=== PATIENT | male | born 1970 | race Caucasian/White ===

== ENCOUNTER 2019-07-14 10:55 | Inpatient (IN) | payer MEDICAID, SELFPAY ==
[2019-07-14] VITALS (14 sets, daily range): BP systolic 116–176; BP diastolic 67–91; PULSE 65–94; RESP 16–25; TEMP 36.8–37; O2SAT 84–96; BMI 61.6
--- NOTE | 2019-07-14 11:21 | ED_ITS ---
Entered by Jazz Rogers, acting as scribe for Mili Dia HPI - SOB/Dyspnea General: Chief Complaint: Shortness of Breath/Dyspnea Stated Complaint: SOB/WEAKNESS Time Seen by Provider: 07/14/19 11:17 Source: patient Mode of arrival: ambulatory Limitations: no limitations History of Present Illness: HPI Narrative: 49 yo Male presents to ED with complaint of shortness of breath. Pt states that this started Sunday night. Pt states that he became short of breath going to the bathroom this morning. Pt states that this has worsened over the weekend. Pt states that he coughs stuff up when he uses his inhalers. MD elicited complaint: shortness of breath and cough Pertinent past history: diabetes Onset (ago): day(s) (3 days ago) Timing: progressively worsening Exacerbating factors: lying flat and exertion Known history of: diabetes Associated symptoms: Reports chest congestion and cough; Deny abdominal pain, chest pain, diaphoresis, dizziness, extremity pain, fever(s), nausea, orthopnea, palpitations, polydipsia, syncope or vomiting Review of Systems General: Reports: other (negative unless marked) Const: Denies: fever, chills, body aches, fatigue, malaise or diaphoresis Eyes: Denies: change in vision or blurry vision ENMT: Denies: throat pain, painful swallowing, hoarseness, ear pain, ear discharge, Change in hearing or nasal discharge Card: Denies: chest pain, palpitations, irregular heart rhythm, syncope, pre- syncope, shortness of breath on exertion or shortness of breath when lying down Resp: Reports: shortness of breath, productive cough and chest congestion GI: Denies: abdominal pain, nausea, vomiting, vomiting blood, coffee grounds in vomit, diarrhea, constipation, cramping, blood in stool or black tarry stool : Denies: flank pain, difficulty urinating, painful urination, urinary frequency, urinary urgency, decreased urine ouput, urinary incontinence or blood in urine Musc: Denies: neck pain, back pain, extremity pain, extremity swelling, joint pain, joint swelling, joint warmth or joint stiffness Skin/Breast: Denies: rash, skin tenderness or yellow skin Neuro: Denies: headache, numbness in extremities, weakness in extremities, changes in sensation, lack of coordination, difficulty walking, dizziness, vertigo or confusion Endo: Denies: excessive thirst, tired all the time, cold intolerance, excessive sweating, flushing or hot flashes Mendel/Lymph: Denies: easy bruising, easy bleeding, petechiae or enlarged lymph nodes All/Imm: Denies: hives, throat swelling, tongue swelling, facial swelling or acute wheezing PFSH ED PFSH: Statuses (acute, chronic, etc) shown below reflect problem list status as previously entered and may not be historically accurate Medical History (Updated 07/14/19 @ 15:35 by Mendez Farmer MD) Diabetes (Acute) Gout (Acute) Hyperlipemia, mixed (Acute) Hypertension (Acute) Morbid (severe) obesity due to excess calories (Acute) OPAL (obstructive sleep apnea) (Acute) Surgical History (Updated 07/14/19 @ 11:51 by Jazz Rogers) History of adenoidectomy (Acute) History of hernia repair (Acute) History of tonsillectomy (Acute) History of umbilical hernia repair (Acute) Family History (Updated 07/14/19 @ 15:23 by Mendez Farmer MD) Mother Hypertension CAD (coronary artery disease) Stroke Social History (Updated 07/14/19 @ 15:24 by Mendez Farmer MD) Smoking and tobacco status: never smoked Second hand smoke exposure: Yes Alcohol intake: never Substance/Drug Use: never Lives independently: Yes Household members: friend(s) Physical Exam Const: COMMON NORMALS: no apparent distress, oriented x3, no limitations, healthy appearing and well nourished EXAM LIMITATIONS: no altered mental status GENERAL APPEARANCE: cooperative, well kempt and well developed ORIENTATION/CONSCIOUSNESS: Yes awake HENMT: COMMON NORMALS: normocephalic, head/scalp atraumatic, hearing grossly normal bilaterally, external ears normal, EAC's normal, external nose normal and moist oral mucous membranes HEAD & SCALP: normal to inspection, normocephalic and atraumatic FACE & SINUS: normal facial exam and face symmetric NOSE: external nose normal and nares normal EXTERNAL EAR: Yes external ears normal EXTERNAL AUDITORY CANAL: EAC's normal MOUTH: oral and palatal mucosa normal and tongue normal Eye: COMMON NORMALS: PERRL, EOMs intact bilaterally, conjunctivae normal and no scleral icterus GENERAL EYE: normal appearance of both eyes and normal light reflex CONJUNCTIVA: Yes conjunctivae normal SCLERA: sclerae normal CORNEA: Yes corneas normal PUPIL: Yes PERRL DIRECT OPHTHALMOSCOPY: Yes normal light reflex Neck/C-Spine: COMMON NORMALS: full ROM, no lymphadenopathy, supple, no meningeal signs and no JVD GENERAL: Yes normal visual inspection and Yes trachea midline CERVICAL SPINE: Yes cervical ROM normal Chest: COMMONS NORMALS: inspection of chest normal and palpation of chest normal Resp: COMMON NORMALS: normal respiratory effort, no retractions and no use of accessory muscles EFFORT & INSPECTION: Yes able to speak in complete sentences AUSCULTATION: rales and diminished lung sounds Cardio: COMMON NORMALS: no JVD, regular rate, regular rhythm, S1 normal heart sound, S2 normal heart sound, no gallops, no clicks, no murmurs and no rub JUGULAR VENOUS DISTENTION: no JVD RATE: regular rate RHYTHM: regular rhythm HEART SOUNDS: S1 normal and S2 normal GI: COMMON NORMALS: soft to palpation, non-tender, no hepatosplenomegaly and no masses INSPECTION: Yes normal to inspection PALPATION: Yes soft and Yes no hepatosplenomegaly : COMMON NORMALS: Yes no CVA tenderness BLADDER/KIDNEY EXAM: Yes no CVA tenderness Back/Pelvis: COMMON NORMALS: no CVA tenderness, thoracic and lumbar spine normal to inspection, no thoracic nor lumbar tenderness and thoraco-lumbar ROM normal Extremity: COMMON NORMALS: normal to inspection, full ROM, normal capillary refill, no joint enlargement, no clubbing, cyanosis or edema and no calf tenderness Neuro: COMMON NORMALS: oriented x3, CN's II-XII intact bilaterally, moves all extremities, no focal motor deficits and no sensory deficits noted MENINGEAL SIGNS: Yes no meningeal signs Psych: COMMON NORMALS: mental status grossly normal, thought process normal, cooperative, affect normal, speech normal and activity/motor behavior normal APPEARANCE: Yes well kempt SPEECH: Yes normal speech THOUGHT PROCESS: normal thought process Skin: COMMON NORMALS: no rashes or lesions noted, skin turgor normal, no jaundice, no petechiae and no mottling GENERAL SKIN EXAM: no rashes or lesions noted and turgor normal Course Vital Signs: Vital signs: Vital Signs Temperature 98.4 F 07/14/19 15:19 Pulse Rate 90 07/14/19 16:34 Respiratory Rate 16 07/14/19 16:28 Blood Pressure 176/91 07/14/19 15:19 Pulse Oximetry 93 07/14/19 16:28 MDM - SOB/Dyspnea MDM Narrative: Medical decision making narrative: The patient is describing orthopnea, paroxysmal nocturnal dyspnea and dyspnea on exertion. His EKG shows no sign of acute coronary syndrome and his troponin is low. He has no pain or shortness of breath at rest. He appears to have new onset CHF we cannot find a history of CHF at this time in our old records. We will admit him to the hospital and we have reviewed the case with Dr. Farmer. He will get an echo and likely continue diuresis. Lab Data: Attestation: I reviewed the patient's lab results. Labs: Lab Results 07/14/19 07/14/19 07/14/19 Range/Units 11:31 11:31 11:31 WBC 5.6 (4.0-10.0) 10^3/ uL RBC 4.63 (4.1-5.3) 10^6/u L Hgb 11.5 L (11.7-16.6) g/dL Hct 39.3 L (42.0-52.0) % MCV 84.9 (80-94) fL MCH 24.8 L (28.0-34.0) pg MCHC 29.3 L (30.0-36.0) g/dL RDW 16.1 H (12.1-15.1) % Plt Count 250 (130-400) 10^3/c mm MPV 9.6 (7.4-10.4) fL Neut % (Auto) 78.4 % Lymph % (Auto) 15.4 % Lassen % (Auto) 5.4 % Eos % (Auto) 0.2 % Baso % (Auto) 0.4 % Neut # (Auto) 4.4 (1.8-7.7) 10^3/u L Lymph # (Auto) 0.9 (0.8-4.8) 10^3/u L Lassen # (Auto) 0.3 (0.2-0.9) 10^3/u L Eos # (Auto) 0.0 (0.0-0.8) 10^3/u L Baso # (Auto) 0.0 (0.0-0.1) 10^3/u L Nucleated RBC % (a uto) 0 % Nucleated RBCs # 0.0 /100WBC D-Dimer (0-0.59) ug/mIFE U Specimen Type Sample Site ABG pH (7.35-7.45) ABG pCO2 (35-45) mmHg ABG pO2 (80.0-100.0) mmH g ABG HCO3 (22-26) mmol/L ABG Base Excess (-2.0-2.0) mmol/ L Luis Test Hematocrit (42-52) % Hgb O2 Saturation (95-100) % O2 Liters/Min % Therapeutic Riding Instructor ID Sodium 134 L (136-145) mmol/L Potassium 3.5 (3.5-5.1) mmol/L Chloride 93 L (98-107) mmol/L Carbon Dioxide 31 H (22-29) mmol/L Anion Gap 13.5 (5-19) BUN 13 (6-20) mg/dL Creatinine 0.9 (0.7-1.2) mg/dL GFR Calculation 90.4 (90-130) mL/min Glucose 334 H (74-109) mg/dL Calcium 10.0 (8.6-10.0) mg/Dl Magnesium 1.5 L (1.7-2.3) mg/dL Total Bilirubin 0.6 (0.15-1.2) mg/dL AST 20 (0-40) U/L ALT 16 (0-41) U/L Alkaline Phosphata se 218 H (40-130) IU/L Troponin T Baselin e 22 H (0-15) ng/mL Troponin T 120 Min [place] (0-15) ng/mL Delta Troponin T (0-10) ABS# NT-Pro-B Natriuret Pep 749 H (0-125) pg/mL Total Protein 7.0 (6.6-8.7) g/dL Albumin 3.5 (3.5-5.2) g/dL Globulin 3.5 (1.3-4.6) g/dL Triglycerides (0-150) mg/dL Cholesterol (0-200) mg/dL LDL Cholesterol, C alc (50-129) mg/dL HDL Cholesterol (60-100) mg/dL LDL/HDL Ratio (0.00-3.22) RATI O Cholesterol/HDL Ra carlos (1.0-5.00) mg/dL Procalcitonin (0-0.8) ng/mL TSH (0.27-4.20) uIU/ mL Influenza Type A A g (Negative) POC Influenza B Ag (Negative) 07/14/19 07/14/19 07/14/19 Range/Units 11:31 11:31 12:10 WBC (4.0-10.0) 10^3/ uL RBC (4.1-5.3) 10^6/u L Hgb (11.7-16.6) g/dL Hct (42.0-52.0) % MCV (80-94) fL MCH (28.0-34.0) pg MCHC (30.0-36.0) g/dL RDW (12.1-15.1) % Plt Count (130-400) 10^3/c mm MPV (7.4-10.4) fL Neut % (Auto) % Lymph % (Auto) % Lassen % (Auto) % Eos % (Auto) % Baso % (Auto) % Neut # (Auto) (1.8-7.7) 10^3/u L Lymph # (Auto) (0.8-4.8) 10^3/u L Lassen # (Auto) (0.2-0.9) 10^3/u L Eos # (Auto) (0.0-0.8) 10^3/u L Baso # (Auto) (0.0-0.1) 10^3/u L Nucleated RBC % (a uto) % Nucleated RBCs # /100WBC D-Dimer 0.54 (0-0.59) ug/mIFE U Specimen Type Arterial Sample Site Radial, right ABG pH 7.47 H (7.35-7.45) ABG pCO2 43.6 (35-45) mmHg ABG pO2 58.2 L (80.0-100.0) mmH g ABG HCO3 31.4 H (22-26) mmol/L ABG Base Excess 6.9 H (-2.0-2.0) mmol/ L Luis Test Pos Hematocrit 37.3 L (42-52) % Hgb O2 Saturation 89.6 L (95-100) % O2 Liters/Min 2.0 % Therapeutic Riding Instructor ID monro Sodium (136-145) mmol/L Potassium (3.5-5.1) mmol/L Chloride (98-107) mmol/L Carbon Dioxide (22-29) mmol/L Anion Gap (5-19) BUN (6-20) mg/dL Creatinine (0.7-1.2) mg/dL GFR Calculation (90-130) mL/min Glucose (74-109) mg/dL Calcium (8.6-10.0) mg/Dl Magnesium (1.7-2.3) mg/dL Total Bilirubin (0.15-1.2) mg/dL AST (0-40) U/L ALT (0-41) U/L Alkaline Phosphata se (40-130) IU/L Troponin T Baselin e (0-15) ng/mL Troponin T 120 Min [place] (0-15) ng/mL Delta Troponin T (0-10) ABS# NT-Pro-B Natriuret Pep (0-125) pg/mL Total Protein (6.6-8.7) g/dL Albumin (3.5-5.2) g/dL Globulin (1.3-4.6) g/dL Triglycerides 131 (0-150) mg/dL Cholesterol 197 (0-200) mg/dL LDL Cholesterol, C alc 132 H (50-129) mg/dL HDL Cholesterol 39 L (60-100) mg/dL LDL/HDL Ratio 3.38 H (0.00-3.22) RATI O Cholesterol/HDL Ra carlos 5.05 H (1.0-5.00) mg/dL Procalcitonin (0-0.8) ng/mL TSH 2.90 (0.27-4.20) uIU/ mL Influenza Type A A g (Negative) POC Influenza B Ag (Negative) 07/14/19 07/14/19 07/14/19 Range/Units 13:31 13:34 13:34 WBC (4.0-10.0) 10^3/ uL RBC (4.1-5.3) 10^6/u L Hgb (11.7-16.6) g/dL Hct (42.0-52.0) % MCV (80-94) fL MCH (28.0-34.0) pg MCHC (30.0-36.0) g/dL RDW (12.1-15.1) % Plt Count (130-400) 10^3/c mm MPV (7.4-10.4) fL Neut % (Auto) % Lymph % (Auto) % Lassen % (Auto) % Eos % (Auto) % Baso % (Auto) % Neut # (Auto) (1.8-7.7) 10^3/u L Lymph # (Auto) (0.8-4.8) 10^3/u L Lassen # (Auto) (0.2-0.9) 10^3/u L Eos # (Auto) (0.0-0.8) 10^3/u L Baso # (Auto) (0.0-0.1) 10^3/u L Nucleated RBC % (a uto) % Nucleated RBCs # /100WBC D-Dimer (0-0.59) ug/mIFE U Specimen Type Sample Site ABG pH (7.35-7.45) ABG pCO2 (35-45) mmHg ABG pO2 (80.0-100.0) mmH g ABG HCO3 (22-26) mmol/L ABG Base Excess (-2.0-2.0) mmol/ L Luis Test Hematocrit (42-52) % Hgb O2 Saturation (95-100) % O2 Liters/Min % Therapeutic Riding Instructor ID Sodium (136-145) mmol/L Potassium (3.5-5.1) mmol/L Chloride (98-107) mmol/L Carbon Dioxide (22-29) mmol/L Anion Gap (5-19) BUN (6-20) mg/dL Creatinine (0.7-1.2) mg/dL GFR Calculation (90-130) mL/min Glucose (74-109) mg/dL Calcium (8.6-10.0) mg/Dl Magnesium (1.7-2.3) mg/dL Total Bilirubin (0.15-1.2) mg/dL AST (0-40) U/L ALT (0-41) U/L Alkaline Phosphata se (40-130) IU/L Troponin T Baselin e (0-15) ng/mL Troponin T 120 Min [place] 20.22 H (0-15) ng/mL Delta Troponin T -1.78 L (0-10) ABS# NT-Pro-B Natriuret Pep (0-125) pg/mL Total Protein (6.6-8.7) g/dL Albumin (3.5-5.2) g/dL Globulin (1.3-4.6) g/dL Triglycerides (0-150) mg/dL Cholesterol (0-200) mg/dL LDL Cholesterol, C alc (50-129) mg/dL HDL Cholesterol (60-100) mg/dL LDL/HDL Ratio (0.00-3.22) RATI O Cholesterol/HDL Ra carlos (1.0-5.00) mg/dL Procalcitonin 0.26 (0-0.8) ng/mL TSH (0.27-4.20) uIU/ mL Influenza Type A A g Negative (Negative) POC Influenza B Ag Negative (Negative) Imaging Data^: CXR: Radiologist's impression: [place] [address] XRay Report Signed Patient: Arnol Guzman DMR#: [id number] : 1970Acct:[id number] Age/Sex: 49 / MADM Date: 07/14/19 Loc: ER Attending Dr: Ordering Physician: Mili Dia DO Date of Service: 07/14/19 Procedure(s): XR chest 1V portable [id number] Accession Number(s): [id number] Report Number: [id number] WS: [id number] Portable AP upright chest, 07/14/2019 Clinical Data: DYSPNEA Comparison: Portable chest, 08/30/2014 Findings: No nodules, masses or effusions are seen. The pulmonary vascularity is increased. The heart size is at the upper limits of normal. No pneumonia or pneumothorax is seen. XR/XR chest 1V portable [id number] Impression: Cardiomegaly and pulmonary vascular congestion. Dictated By:Eva Patton MD Signed By:Eva Pattonigned Date/Time:07/14/19 1244 DD/ 1243 EKG Data^: EKG 1: Attestation: I personally reviewed and interpreted this EKG as follows: (Normal sinus rhythm at 86 beats a minute, nonspecific ST and T wave changes, normal intervals, normal axis, normal QTC.) Interpretation: EKG performed and read at 1124 -normal sinus rhythm at 81 beats a minute, normal intervals, nonspecific ST-T wave changes, normal QTC Discharge Plan Discharge Admit Provider: Mendez Farmer Clinical Impression: CHF (congestive heart failure) Qualifiers: Heart failure type: unspecified Heart failure chronicity: acute Qualified Code(s): I50.9 - Heart failure, unspecified Condition: Stable Coding Level of Care Code ED Respiratory Care Assistant for Chg Fwd Exam Problem Focused The documentation recorded by the Sue maddox Carmen, accurately reflects the service I personally performed and the decisions made by Ifeoma barrera Eli N
--- NOTE | 2019-07-14 11:58 | XR_ITS ---
WS: [id number] Portable AP upright chest, 07/14/2019 Clinical Data: DYSPNEA Comparison: Portable chest, 08/30/2014 Findings: No nodules, masses or effusions are seen. The pulmonary vascularity is increased. The heart size is at the upper limits of normal. No pneumonia or pneumothorax is seen. XR/XR chest 1V portable [id number] Impression: Cardiomegaly and pulmonary vascular congestion.
--- NOTE | 2019-07-14 11:59 | ECG_ITS ---
Measurements Intervals [place] Rate: 86 P: 70 HI: 161 QRS: 35 QRSD: 93 T: 102 QT: 363 QTc: 435 SINUS RHYTHM NONSPECIFIC T-WAVE ABNORMALITY Compared to ECG 08/30/2014 15:23:10 T-wave abnormality now present Electronically Signed On 07-14-2019 17:50:15 FULL FASHIONED GARMENT KNITTER by Crys Diggs M.D. [id number]
[2019-07-14 12:04] LABS: Basophils % 0.4 %; Eosinophils % 0.2 %; Hematocrit 39.3 % (42.0-52.0); Hemoglobin 11.5 g/dL (11.7-16.6); Lymphocytes # 0.9 10^3/uL (0.8-4.8); Lymphocytes % 15.4 %; Mean Corpuscular HGB Conc 29.3 g/dL (30.0-36.0); Mean Corpuscular Hemoglobin 24.8 pg (28.0-34.0); Mean Corpuscular Volume 84.9 fL (80-94); Mean Platelet Volume 9.6 fL (7.4-10.4); Monocytes # 0.3 10^3/uL (0.2-0.9); Monocytes % 5.4 %; Neutrophils # 4.4 10^3/uL (1.8-7.7); Neutrophils % 78.4 %; Nucleated Red Blood Cells % 0 %; Platelet Count 250 10^3/cmm (130-400); Red Blood Count 4.63 10^6/uL (4.1-5.3); Red Cell Distribution Width 16.1 % (12.1-15.1); White Blood Count 5.6 10^3/uL (4.0-10.0)
[2019-07-14 12:16] LABS: Troponin(5th) Baseline 22 ng/mL (0-15)
[2019-07-14] MEDS: ipratropium-albuterol 3 mL Neb 9 ML INHALATION (12:16)
[2019-07-14 12:23] LABS: ABG PCO2 43.6 mmHg (35-45); ABG PH Result 7.47 (7.35-7.45); Arterial Blood Gas Hematocrit 37.3 % (42-52); Base Excess ABG 6.9 mmol/L (-2.0-2.0); Blood Gas Allen Test Pos; Blood Gas Sample Site Radial, right; Blood Gas Sample Type Arterial; HCO3 ABG 31.4 mmol/L (22-26); HGB O2 Sat 89.6 % (95-100); PO2 ABG 58.2 mmHg (80.0-100.0)
[2019-07-14] MEDS: ipratropium-albuterol 3 mL Neb 6 ML (12:30)
[2019-07-14 12:31] LABS: Alanine Aminotransferase 16 U/L (0-41); Albumin Level 3.5 g/dL (3.5-5.2); Alkaline Phosphatase 218 IU/L (40-130); Anion Gap 13.5 (5-19); Aspartate Amino Transferase 20 U/L (0-40); Blood Urea Nitrogen 13 mg/dL (6-20); Carbon Dioxide 31 mmol/L (22-29); Chloride 93 mmol/L (98-107); Globulin 3.5 g/dL (1.3-4.6); Glomerular Filtration Rate 90.4 mL/min (90-130); Glucose 334 mg/dL (74-109); Magnesium 1.5 mg/dL (1.7-2.3); NT Pro B Type Natriuretic Pept 749 pg/mL (0-125); Potassium 3.5 mmol/L (3.5-5.1); Sodium 134 mmol/L (136-145); Total Bilirubin 0.6 mg/dL (0.15-1.2)
[2019-07-14] MEDS: FUROsemide 10 mg/mL SDV 4mL 40 MG IVP ×2 (12:32→19:41)
[2019-07-14] MEDS: nitroglycerin 1 gm/inch oint Pkt 1 INCH TOPICAL (12:33)
--- NOTE | 2019-07-14 13:53 | PM.HP ---
Providers/Chief Complaint Admitting Physician: Mendez Farmer MD Primary Care Provider: Dr. Parker Rosario Chief Complaint: SOB/WEAKNESS History of Present Illness Arnol Guzman is a 49 year old male morbid obesity, OPAL not on CPAP, hypertension, type 2 diabetes mellitus, hyperlipidemia, COPD on chronic inhalers. He states he uses inhalers at least 4-5 times daily for last couple of years. He presented to the ER today with complaining of shortness of breath with has been progressively worsening for last 3 days. Shortness of breath gets worse on minimal exertion for last 2 days. It is also associated with orthopnea and paroxysmal nocturnal dyspnea for last 2 nights. He states he was not able to sleep last night as he would get up again and again gasping for air. Shortness of breath associated with cough with expectoration. Sputum production is scanty, not foul-smelling not blood-tinged. He states he has been producing sputum for a long time whenever he would use inhalers and the quantity and quality of expectoration have not changed recently. He also complains of having subjective feel a fever yesterday but did not check his temperatures. Shortness of breath is also associated with palpitations intermittently for last 2 days though he has not checked his pulse when he felt palpitations. He denies of having any dizziness, loss of consciousness, nausea, vomiting, abdominal pain, change in his bowel movements, dysuria. Shortness of breath is occasionally also associated with central chest pain when he is not able to take a deep breath in. Pain goes away after he uses his inhalers. He has also been feeling increased swellings in his lower limbs. He states he has more pain and feels more swelling in his right leg as compared to left. He states last he was admitted in 2004 for what sounds like a DKA. He denies of having any recent change in medications, recent travels, sick contacts. He states he has lost around 4 pounds in last 1 month. Review of Systems Const: Reports: change in sleep pattern and snoring; Denies: fever, chills, body aches, change in appetite, malaise, night sweats, diaphoresis or daytime sleepiness Eyes: Denies: change in vision, blurry vision, photophobia, eye discomfort or eye discharge ENMT: Denies: throat pain, enlarged tonsils, hoarseness, mouth pain, oral sores/lesions, dry mouth, tinnitus, nasal congestion or post nasal drip Card: Reports: chest pain, palpitations, edema, swelling of feet/ankles, shortness of breath on exertion and shortness of breath when lying down; Denies: irregular heart rhythm, lightheadedness, syncope, pre-syncope, leg pain with exertion or bluish discoloration of hands/feet Resp: Reports: shortness of breath, productive cough and pain on inspiration; Denies: non-productive cough, wheezing, stridor, change in phlegm color, coughing up blood or chest congestion GI: Denies: abdominal pain, nausea, vomiting, vomiting blood, coffee grounds in vomit, difficulty swallowing, heartburn/indigestion, diarrhea, constipation, bloating, cramping, change in bowel habits, painful bowel movements, blood in stool or black tarry stool : Denies: flank pain, difficulty urinating, painful urination, urinary frequency, urinary urgency, urinary hesitancy, urinary dribbling, difficulty starting urination, change in urine stream, nighttime urination or blood in urine Musc: Denies: neck pain, back pain, extremity pain, joint pain, joint swelling, redness, joint stiffness or limited range of motion Neuro: Denies: headache, numbness in extremities, weakness in extremities, changes in sensation, lack of coordination, difficulty walking, frequent falls, dizziness, vertigo, confusion, slurred speech, difficulty communicating thoughts or seizure-like activity Psych: Denies: anxiety, depression, mood swings, panic attacks, hopelessness or irritability Endo: Denies: excessive urination, excessive thirst, tired all the time, cold intolerance, excessive sweating, flushing or heat intolerance Mendel/Lymph: Denies: easy bruising or easy bleeding All/Imm: Denies: tongue swelling, facial swelling or acute wheezing Medications/Allergies Home Medications Medication Instructions Recorded Confirmed Last Taken Type albuterol sulfate [ProAir HFA] 2 - 4 puff INHALATION QID PRN 07/14/19 07/14/19 07/14/19 History allopurinol 300 mg PO DAILY 07/14/19 07/14/19 07/14/19 History aspirin [Aspir-81] 81 mg PO DAILY 07/14/19 07/14/19 07/14/19 History atenolol 100 mg PO DAILY 07/14/19 07/14/19 07/14/19 History atorvastatin [Lipitor] 80 mg PO DAILY 07/14/19 07/14/19 Unknown History insulin degludec [Tresiba 25 unit SUBCUT DAILY 07/14/19 07/14/19 Unknown History FlexTouch U-200] lisinopril-hydrochlorothiazide 1 tab PO DAILY 07/14/19 07/14/19 07/14/19 History loratadine 10 mg PO DAILY 07/14/19 07/14/19 07/14/19 History metformin 500 mg PO BID 07/14/19 07/14/19 07/14/19 History montelukast [Singulair] 10 mg PO DAILY 07/14/19 07/14/19 07/13/19 History nystatin 1 applic TOPICAL BID PRN 07/14/19 07/14/19 Unknown History omeprazole 40 mg PO DAILY 07/14/19 07/14/19 07/13/19 History Allergies Allergy/AdvReac Type Severity Reaction Status Date / Time Penicillins Allergy ALGY-Hives Verified 07/14/19 11:16 diltiazem [From Cardizem] AdvReac ADR/ALGY-Pa Verified 07/14/19 15:32 lpitations PFSH Acute PFSH: Statuses (acute, chronic, etc) shown below reflect problem list status as previously entered and may not be historically accurate Medical History (Updated 07/14/19 @ 15:35 by Mendez Farmer MD) Diabetes (Acute) Gout (Acute) Hyperlipemia, mixed (Acute) Hypertension (Acute) Morbid (severe) obesity due to excess calories (Acute) OPAL (obstructive sleep apnea) (Acute) Surgical History (Updated 07/14/19 @ 11:51 by Jazz Rogers) History of adenoidectomy (Acute) History of hernia repair (Acute) History of tonsillectomy (Acute) History of umbilical hernia repair (Acute) Family History (Updated 07/14/19 @ 15:23 by Mendez Farmer MD) Mother Hypertension CAD (coronary artery disease) Stroke Social History (Updated 07/14/19 @ 15:24 by Mendez Farmer MD) Smoking and tobacco status: never smoked Second hand smoke exposure: Yes Alcohol intake: never Substance/Drug Use: never Lives independently: Yes Household members: friend(s) Vitals/I&O/Wt Last Vital Signs Temp 98.2 F 07/14/19 11:10 Pulse 91 07/14/19 13:32 Resp 25 H 07/14/19 13:32 BP 116/85 07/14/19 13:32 Pulse Ox 91 07/14/19 13:32 Weight last 48 hrs Weight 147.871 kg Physical Exam Const: COMMON NORMALS: no apparent distress, oriented x3, no limitations, healthy appearing, alert and well nourished GENERAL APPEARANCE: cooperative, comfortable, well kempt and well developed NUTRITIONAL APPEARANCE: obese and overweight ORIENTATION/CONSCIOUSNESS: Yes awake, Yes oriented to person, Yes oriented to place and Yes oriented to time HENMT: COMMON NORMALS: normocephalic, head/scalp atraumatic and oropharynx normal Eye: COMMON NORMALS: PERRL, EOMs intact bilaterally, conjunctivae normal and no scleral icterus Neck/C-Spine: COMMON NORMALS: full ROM, no lymphadenopathy and supple GENERAL: Yes trachea midline and Yes JVD (Difficult to access due to thick neck) CAROTIDS: Yes other (difficult to access due to thick neck) Chest: COMMONS NORMALS: inspection of chest normal and palpation of chest normal Resp: COMMON NORMALS: normal respiratory effort and no retractions EFFORT & INSPECTION: Yes symmetric chest movement and Yes respiratory distress (mild) AUSCULTATION: rales bilateral and localized (lower zones, faint) and bronchial breath sounds diffuse Cardio: COMMON NORMALS: regular rate, regular rhythm, S1 normal heart sound and S2 normal heart sound HEART SOUNDS: gallop S3 gallop OTHER: PSM at apex and tricuspid area GI: COMMON NORMALS: normal to inspection, nondistended, normoactive bowel sounds, soft to palpation, non-tender, no hepatosplenomegaly, no masses and no bruits INSPECTION: Yes central obesity Neuro: COMMON NORMALS: oriented x3, CN's II-XII intact bilaterally, moves all extremities and no focal motor deficits Psych: COMMON NORMALS: mental status grossly normal, thought process normal, cooperative, affect normal, speech normal and activity/motor behavior normal Data Micro: Micro: Microbiology 07/14/19 12:08 Blood Culture - Pr eliminary Blood [facility] 07/14/19 12:05 Blood Culture - Pr eliminary Blood [facility] Imaging^: CXR: Radiologist's impression: XRay Report Signed Patient: Arnol Guzman DMR#: [id number] : 1970Acct:[id number] Age/Sex: 49 / MADM Date: 07/14/19 Loc: ER Attending Dr: Ordering Physician: Mili Dia DO Date of Service: 07/14/19 Procedure(s): XR chest 1V portable [id number] Accession Number(s): [id number] Report Number: [id number] WS: [id number] Portable AP upright chest, 07/14/2019 Clinical Data: DYSPNEA Comparison: Portable chest, 08/30/2014 Findings: No nodules, masses or effusions are seen. The pulmonary vascularity is increased. The heart size is at the upper limits of normal. No pneumonia or pneumothorax is seen. XR/XR chest 1V portable [id number] Impression: Cardiomegaly and pulmonary vascular congestion. A&P Assessment and plan (1) CHF (congestive heart failure): Status: Acute Qualifiers: Heart failure chronicity: acute Heart failure type: unspecified Qualified Code(s): I50.9 - Heart failure, unspecified Code(s): I50.9 - Heart failure, unspecified (2) OPAL (obstructive sleep apnea): Status: Acute Code(s): G47.33 - Obstructive sleep apnea (adult) (pediatric) (3) Morbid (severe) obesity due to excess calories: Status: Acute Code(s): E66.01 - Morbid (severe) obesity due to excess calories (4) Hypertension: Status: Acute Qualifiers: Hypertension type: essential hypertension Qualified Code(s): I10 - Essential (primary) hypertension Code(s): I10 - Essential (primary) hypertension (5) Diabetes: Status: Acute Qualifiers: Diabetes mellitus complication status: with circulatory complication Diabetes mellitus care home insulin 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 His proBNP is elevated and is chest x-ray and clinical findings suggest congestive heart failure. Patient was already given 40 mg Lasix IV in the ER. Will monitor intake and output. Depending on the output will give 40 mg more IV in the evening if required. IV 40 mg Lasix daily from tomorrow morning. Daily weights. Strict intake and output. Restrict fluid intake to 1500 mL's. Echocardiogram tomorrow morning to assess for LV functions. Telemetry monitoring. Will check Ddimer and lower limb dopplers as pt has lower limb swelling with mild increase swelling in the right leg. Cannot rule out PE for now. If d-dimer is elevated then will go for a CTA. Will avoid for now. Obstructive sleep apnea: Patient states he had a sleep study as an outpatient. Patient is awaiting CPAP. CPAP with auto setting nightly as needed. Social service consult for CPAP at home. Patient would most likely need home O2 evaluation prior to discharge. COPD: No need for steroids for now. Continue with albuterol as needed. We will start patient on DuoNeb [id number]. Continue home dose of Singulair. Hypertension: Continue on home dose of lisinopril. Blood pressure elevated will increase the dose of lisinopril. Will hold off for now to avoid acute kidney injury as patient is receiving high doses of IV Lasix for now. Continue home dose of atenolol. Can add hydralazine as needed to the regimen if the blood pressure continues to be elevated while in hospital. Type 2 diabetes mellitus: Check HbA1c in a.m. Hold OHAs. We will start patient on insulin sliding scale at moderate protocol. Patient takes Tresiba at home. We will start him on Lantus 25 units nightly. FC Cardiac carb consistent diet Lovenox Attestations Medical Necessity Statement*: Needs more than 48 hrs of admission for acute SOB due to CHF Coding Level of Care Code Acute [employer] [facility] Fwd Exam Problem Focused Diagnoses CHF (congestive heart failure) I50.9 Heart failure chronicity: acute Heart failure type: unspecified OPAL (obstructive sleep apnea) G47.33 Morbid (severe) obesity due to excess calories E66.01 Hypertension I10 Hypertension type: essential hypertension Diabetes E11.9 Diabetes mellitus complication status: with circulatory complication Diabetes mellitus care home insulin use: with terminal press operator use Diabetes mellitus type: type 2
--- NOTE | 2019-07-14 13:59 | ECG_ITS ---
Measurements Intervals [place] Rate: 91 P: 68 IN: 147 QRS: 38 QRSD: 102 T: 107 QT: 373 QTc: 460 SINUS RHYTHM WITH OCCASIONAL SUPRAVENTRICULAR PREMATURE COMPLEXES NONSPECIFIC T-WAVE ABNORMALITY Compared to ECG 08/30/2014 15:23:10 T-wave abnormality now present Electronically Signed On 07-14-2019 17:52:00 [employer] by Crys Diggs M.D. [id number]
--- NOTE | 2019-07-14 14:01 | USCV_ITS ---
ThomasArnol sanchez Age: 49 Gender: M : 1970 Exam Date: 07/14/2019 15:32 Ordering Phys: Mendez Farmer MD Technologist: Steve Donovan [place] [facility] [place]: ? PE HISTORY: Lower extremity edema. PROCEDURES: Venous duplex imaging was performed in bilateral lower extremities. The venous duplex Doppler examination of both lower extremities was performed in the standard fashion. The following venous structures were evaluated: common femoral vein, profunda vein, proximal portion of the greater saphenous vein, superficial femoral vein, and the popliteal vein. In addition, the posterior tibial and peroneal trunk were evaluated. FINDINGS: Normal 2-D Doppler and augmentation and compressibility throughout the lower extremity venous structures. Additional imaging through the proximal calf veins also reveals no thrombus. Limited evaluation of the greater saphenous vein is patent with no thrombus.. CONCLUSIONS No evidence of right lower extremity DVT. No evidence of left lower extremity DVT. Evangelist Sanderson MD (Electronically Signed) Final Date: 14 July 2019 17:03 S
[2019-07-14 14:06] LABS: Troponin 5 2HR 20.22 ng/mL (0-15)
[2019-07-14 14:11] LABS: Troponin 5 2HR Delta -1.78 ABS# (0-10)
[2019-07-14 14:25] LABS: Influenza A by IFA Negative (Negative); Influenza B by IFA Negative (Negative)
[2019-07-14 14:25] LABS: D Dimer 0.54 ug/mIFEU (0-0.59)
[2019-07-14 15:06] LABS: Procalcitonin 0.26 ng/mL (0-0.8)
--- NOTE | 2019-07-14 15:12 | USCV_ITS ---
Arnol Guzman Age: 49 Gender: M : 1970 Exam Date: 07/14/2019 15:18 Ordering Phys: Mendez Farmer MD Technologist: Steve Donovan [place] [facility] [place]: CHF BP: 168 / 80 HR: 94 Rhythm: Sinus Technical Quality: Poor MEASUREMENTS (Male / Female) Normal Values 2D ECHO LV Diastolic Diameter PLAX 3.6 cm 4.2 - 5.9 / 3.9 - 5.3 cm LV Systolic Diameter PLAX 2.7 cm IVS Diastolic Thickness 1.1 cm 0.6 - 1.0 / 0.6 - 0.9 cm IVS Systolic Thickness 1.6 cm LVPW Diastolic Thickness 1.1 cm 0.6 - 1.0 / 0.6 - 0.9 cm LVPW Systolic Thickness 1.5 cm LVOT Diameter 2.0 cm LV Ejection Fraction 2D Teich 50.2 % LV Ejection Fraction MOD 2C 45.9 % LV Ejection Fraction 2C AL 45.9 % LA Diameter 4.6 cm LA Width 4.5 cm LA Height 6.0 cm RA Width 4.1 cm RA Height 4.8 cm M-MODE LV Diastolic Diameter MM 5.3 cm 4.2 - 5.9 / 3.9 - 5.3 cm LV Systolic Diameter MM 3.3 cm LV Ejection Fraction MM Teich 68.6 % IVS Diastolic Thickness MM 1.1 cm 0.6 - 1.0 / 0.6 - 0.9 cm IVS Systolic Thickness MM 1.7 cm LVPW Diastolic Thickness MM 1.3 cm 0.6 - 1.0 / 0.6 - 0.9 cm LVPW Systolic Thickness MM 2.2 cm RV Diastolic Diameter MM 1.1 cm Aortic Annulus Diameter 3.6 cm LA Ao Ratio MM 1.3 MV E Point Septal Separation 0.8 cm DOPPLER AV Peak Velocity 162.0 cm/s LVOT Peak Velocity 107.0 cm/s AV Area Cont Eq vti 1.9 cm squared AV Area Cont Eq pk 2.1 cm squared MV Area PHT 5.0 cm squared Mitral E to A Ratio 1.4 MV E' Velocity 10.0 cm/s Mitral E to MV E' Ratio 15.1 Mitral E to LV E' Lateral Ratio 13.7 Mitral E to LV E' Septal Ratio 16.7 TR Peak Velocity 176.0 cm/s TR Peak Gradient 12.4 mmHg Right Atrial Pressure 8.0 mmHg Pulmonary Artery Systolic Pressu 20.4 mmHg PV Peak Velocity 111.0 cm/s FINDINGS Left Ventricle Normal left ventricular cavity size. Normal left ventricular systolic function. No regional wall motion abnormalities. Left ventricular ejection fraction is estimated at 68 %. Normal diastolic function. Right Ventricle The right ventricle is normal in size and function. Right Atrium The right atrium is normal in size. Left Atrium The left atrium is normal in size. Mitral Valve Moderately thickened mitral valve. No mitral valve stenosis. No mitral valve regurgitation. Aortic Valve Aortic valve sclerosis without stenosis or regurgitation. Tricuspid Valve Structurally normal tricuspid valve without significant stenosis or regurgitation. Pulmonary artery systolic pressure is normal. Pulmonic Valve Structurally normal pulmonic valve without significant stenosis. There is no pulmonic regurgitation. Pericardium Normal pericardium without effusion. Aorta Normal ascending aorta dimension. CONCLUSIONS 1-Normal left ventricular cavity size. Normal left ventricular systolic function. No regional wall motion abnormalities. Left ventricular ejection fraction is estimated at 68 %. Normal diastolic function. 2-There is no pericardial effusion. 3-No significant valve abnormalities. 4-Pulmonary artery systolic pressure is within normal limits. 5-There are no prior echocardiogram studies to compare. Lester Connelly MD (Electronically Signed) Final Date: 14 July 2019 17:07 S
[2019-07-14 16:13] LABS: Glucose Point of Care 284 mg/dL (70-110)
[2019-07-14 16:23] LABS: Chol HDL Ratio 5.05 mg/dL (1.0-5.00); Cholesterol 197 mg/dL (0-200); HDL Cholesterol 39 mg/dL (60-100); LDL Cholesterol Calculated 132 mg/dL (50-129); LDL HDL Ratio 3.38 RATIO (0.00-3.22); Triglycerides 131 mg/dL (0-150)
[2019-07-14] MEDS: ipratropium-albuterol 3 mL Neb INHALATION ×2 (16:27→20:06)
--- NOTE | 2019-07-14 17:59 | ECG_ITS ---
Measurements Intervals [place] Rate: 95 P: 68 HI: 157 QRS: 44 QRSD: 92 T: 93 QT: 368 QTc: [address] & T-WAVE ABNORMALITY Compared to ECG 08/30/2014 15:23:10 T-wave abnormality now present Electronically Signed On 07-14-2019 17:51:40 [employer] by Crys Diggs M.D. [id number]
[2019-07-14] MEDS: enoxaparin 40 mg/0.4 mL Syringe SUBCUT (18:28)
[2019-07-14] MEDS: magnesium sulfate premix 2 GM/50 ML PIGGYBACK IV (18:29)
[2019-07-14 19:05] LABS: Troponin 5 6HR 18.12 ng/L (0-15)
--- NOTE | 2019-07-14 19:08 | PC.NURSE ---
INTRODUCTION OF STAFF AND REPORT RECEIVED, AIDET. CALL RETURNED TO DR BAILEY PER HIS REQUEST. INQUIRED OF BP. ORDER RECEIVED THAT IF SBP IS GREATER THAN 150 AFTER SCHEDULED DOSE OF LASIX, GIVE HYDRALAZINE 5MG IV X1. ORDER PLACED. RN NOTIFIED OF LASIX DUE.
[2019-07-14 21:05] LABS: Estmated Average Glucose 266; Hemoglobin A1C 10.9 % (4.0-6.0)
[2019-07-14 21:21] LABS: Glucose Point of Care 385 mg/dL (70-110)
[2019-07-14 23:39] LABS: Troponin 5 6HR Delta -3.88 ng/L (0-12)
[2019-07-15] VITALS (12 sets, daily range): BP systolic 123–139; BP diastolic 65–73; PULSE 71–94; RESP 10–22; TEMP 36.5–36.6; O2SAT 84–98
[2019-07-15 00:33] LABS: Bilirubin Urine Neg (NEGATIVE); Blood Urine Neg (Negative); Glucose Urine UA 4+ (Normal); Ketones Urine Negative (Negative); Leukocyte Esterase Urine Negative (Negative); Nitrate Urine Negative (Negative); Protein Urine Trace (Negative); Urine Appearance Clear (CLEAR); Urine Color Yellow (Yellow); Urobilinogen Urine Norm (Negative); pH Urine 5 (5-7)
[2019-07-15 00:35] LABS: Add Urine Culture? No; RBC Urine 0-4 /hpf (0-2)
[2019-07-15] MEDS: ipratropium-albuterol 3 mL Neb INHALATION ×3 (02:57→14:14)
[2019-07-15 04:44] LABS: Basophils % 0.2 %; Hematocrit 41.3 % (42.0-52.0); Lymphocytes # 0.9 10^3/uL (0.8-4.8); Lymphocytes % 14.4 %; Mean Corpuscular HGB Conc 29.1 g/dL (30.0-36.0); Mean Corpuscular Hemoglobin 25.4 pg (28.0-34.0); Mean Corpuscular Volume 87.3 fL (80-94); Mean Platelet Volume 9.7 fL (7.4-10.4); Monocytes # 0.3 10^3/uL (0.2-0.9); Monocytes % 4.7 %; Neutrophils # 4.8 10^3/uL (1.8-7.7); Neutrophils % 80.4 %; Nucleated Red Blood Cells % 0 %; Platelet Count 265 10^3/cmm (130-400); Red Blood Count 4.73 10^6/uL (4.1-5.3); Red Cell Distribution Width 16.1 % (12.1-15.1)
[2019-07-15 05:06] LABS: Alanine Aminotransferase 15 U/L (0-41); Albumin Level 3.4 g/dL (3.5-5.2); Alkaline Phosphatase 183 IU/L (40-130); Anion Gap 14.8 (5-19); Aspartate Amino Transferase 13 U/L (0-40); Blood Urea Nitrogen 20 mg/dL (6-20); Calcium 9.8 mg/Dl (8.6-10.0); Carbon Dioxide 31 mmol/L (22-29); Chloride 96 mmol/L (98-107); Globulin 3.2 g/dL (1.3-4.6); Glomerular Filtration Rate 90.4 mL/min (90-130); Glucose 334 mg/dL (74-109); Potassium 3.8 mmol/L (3.5-5.1); Sodium 138 mmol/L (136-145); Total Bilirubin 0.8 mg/dL (0.15-1.2); Total Protein 6.6 g/dL (6.6-8.7)
[2019-07-15 07:15] LABS: Glucose Point of Care 226 mg/dL (70-110)
[2019-07-15] MEDS: aspirin 81 mg EC Tablet PO (09:30)
[2019-07-15] MEDS: atorvastatin 40 mg Tablet 80 MG PO (09:30)
[2019-07-15] MEDS: atenolol 50 mg Tablet 100 MG PO (09:30)
[2019-07-15] MEDS: lisinopril 20 mg Tablet PO (09:30)
[2019-07-15] MEDS: montelukast sodium 10 mg Tablet PO (09:30)
[2019-07-15] MEDS: allopurinol 300 mg Tablet PO (09:30)
[2019-07-15] MEDS: FUROsemide 10 mg/mL SDV 4mL 40 MG IVP (09:52)
[2019-07-15 11:36] LABS: Glucose Point of Care 204 mg/dL (70-110)
--- NOTE | 2019-07-15 13:59 | PM.DCS ---
Discharge Providers Date of Admission: 07/14/19 13:57 Date of Discharge: 07/15/19 Attending Provider at Admission: Mendez Farmer MD Attending Provider at Discharge: Mendez Farmer MD Diagnoses at Discharge Discharge Diagnosis (1) CHF (congestive heart failure): Status: Acute Qualifiers: Heart failure chronicity: acute Heart failure type: unspecified Qualified Code(s): I50.9 - Heart failure, unspecified (2) OPAL (obstructive sleep apnea): Status: Acute (3) Morbid (severe) obesity due to excess calories: Status: Acute (4) Hypertension: Status: Chronic Qualifiers: Hypertension type: essential hypertension Qualified Code(s): I10 - Essential (primary) hypertension (5) Diabetes: Status: Chronic Qualifiers: Diabetes mellitus complication status: with circulatory complication Diabetes mellitus terminal superintendent insulin use: with custodial use Diabetes mellitus type: type 2 Reason for Visit Reason for Visit: Reason For Visit: SOB/WEAKNESS Hospital Course Discharge Summary: This is a 49-year-old male with past medical history of morbid obesity, OPAL, hypertension, type 2 diabetes mellitus, hyperlipidemia, COPD on chronic 2 L who presented to the ER on 07/14/2019 complaining of worsening shortness of breath for last 3 days on exertion along with orthopnea and paroxysmal nocturnal dyspnea. In ER his blood work showed elevated proBNP and his chest x-ray was suggestive of vascular congestion along with cardiomegaly. Pneumonia was ruled out with a negative chest x-ray for infiltrate and a normal procalcitonin along with no fevers. He was treated with diuresis with IV Lasix and fluid restriction. His echocardiogram revealed an EF of 60% with no diastolic dysfunction. On further interview with patient he stated in past he has done a sleep study and was advised a CPAP but never could go for mask fitting. Patient responded well to the treatment and was overall 2 L negative by discharge and started feeling a lot better. Patient was advised to do overnight pulse oximetry for arranging of CPAP for home but he wanted to follow-up as an outpatient with his primary care physician for same. Home O2 evaluation was done and he was advised 4 L nasal cannula oxygen supplementation at home. During hospitalization he was found to have elevated blood pressures for which dose of lisinopril was uptitrated. His hydrochlorothiazide home dose was changed to oral Lasix. His hospital stay was unremarkable and is being discharged in hemodynamically stable condition with advised to use 4 L nasal cannula oxygen supplementation at home and to follow-up with his primary care physician for a sleep study so that he can qualify for CPAP which would help him the most as I do believe his symptoms are stemming from severe obstructive sleep apnea. Physical Exam Narrative: EXAM NARRATIVE: General: No acute distress, AO x3, NC oxygen supplementation HEENT: PERRLA, pupils bilaterally equal and reactive Chest:Bronchial breath sounds b/l ,decreased air entry, equal good air entry bilaterally, no more fine basal crackles CVS: S1-S2 regular, no murmurs, no tachycardia, no gallops, no rubs Abdomen: Soft, nontender, no organomegaly, bowel sounds present, morbidly obese Neuro: No focal deficits, no facial deformity, AO x3, power 5/5 in all limbs Discharge Data Data Completed and Pending: Completed Studies During Hospitalization Category Date Time Status XR chest 1V camila ble [id number] Urgent Exams 07/14/19 11:58 Completed CV echo complete* [id number] Routine Ultrasound 07/14/19 15:12 [place] [id number] Routin e Ultrasound 07/14/19 14:01 Completed Pending at discharge Category Date Time Status Arterial Blood Ga s W/Coox Routine Lab 07/14/19 12:10 Results Blood Culture Sta t Lab 07/14/19 12:08 Results Labs from last 24 hours 07/15/19 07/15/19 07/15/19 11:16 06:19 04:12 WBC RBC Hgb Hct MCV MCH MCHC RDW Plt Count MPV Neut % (Auto) Lymph % (Auto) Tift % (Auto) Eos % (Auto) Baso % (Auto) Neut # (Auto) Lymph # (Auto) Tift # (Auto) Eos # (Auto) Baso # (Auto) Nucleated RBC % (a uto) Nucleated RBCs # D-Dimer Sodium 138 Potassium 3.8 Chloride 96 L Carbon Dioxide 31 H Anion Gap 14.8 BUN 20 Creatinine 0.9 GFR Calculation 90.4 Glucose 334 H POC Glucose 204 226 Estimat Average Gl ucose Hemoglobin A1c Calcium 9.8 Total Bilirubin 0.8 AST 13 ALT 15 Alkaline Phosphata se 183 H Troponin I 6 Hour Troponin I Hi Sens Del Troponin T 120 Min qagan [place] Delta Troponin T Total Protein 6.6 Albumin 3.4 L Globulin 3.2 Triglycerides Cholesterol LDL Cholesterol, C alc HDL Cholesterol LDL/HDL Ratio Cholesterol/HDL Ra carlos Procalcitonin TSH Urine Color Urine Appearance Urine pH Ur Specific Gravit y Urine Protein Urine Glucose (UA) Urine Ketones Urine Occult Blood Urine Nitrate Urine Bilirubin Urine Urobilinogen Ur Leukocyte Maggie ase Urine RBC Urine WBC Ur Squamous Epith Cells Ur Transition Epit h Cell Urine Bacteria Influenza Type A A g POC Influenza B Ag 07/15/19 07/14/19 07/14/19 04:12 21:50 21:07 WBC 6.0 RBC 4.73 Hgb 12.0 Hct 41.3 L MCV 87.3 MCH 25.4 L MCHC 29.1 L RDW 16.1 H Plt Count 265 MPV 9.7 Neut % (Auto) 80.4 Lymph % (Auto) 14.4 Tift % (Auto) 4.7 Eos % (Auto) 0.0 Baso % (Auto) 0.2 Neut # (Auto) 4.8 Lymph # (Auto) 0.9 Tift # (Auto) 0.3 Eos # (Auto) 0.0 Baso # (Auto) 0.0 Nucleated RBC % (a uto) 0 Nucleated RBCs # 0.0 D-Dimer Sodium Potassium Chloride Carbon Dioxide Anion Gap BUN Creatinine GFR Calculation Glucose POC Glucose 385 Estimat Average Gl ucose Hemoglobin A1c Calcium Total Bilirubin AST ALT Alkaline Phosphata se Troponin I 6 Hour Troponin I Hi Sens Del Troponin T 120 Min qagan [place] Delta Troponin T Total Protein Albumin Globulin Triglycerides Cholesterol LDL Cholesterol, C alc HDL Cholesterol LDL/HDL Ratio Cholesterol/HDL Ra carlos Procalcitonin TSH Urine Color Yellow Urine Appearance Clear Urine pH 5 Ur Specific Gravit y 1.010 Urine Protein Trace Urine Glucose (UA) 4+ H Urine Ketones Negative Urine Occult Blood Neg Urine Nitrate Negative Urine Bilirubin Neg Urine Urobilinogen Norm Ur Leukocyte Maggie ase Negative Urine RBC 0-4 H Urine WBC None Ur Squamous Epith Cells None Ur Transition Epit h Cell None Urine Bacteria None Influenza Type A A g POC Influenza B Ag 07/14/19 07/14/19 07/14/19 18:15 15:52 13:34 WBC RBC Hgb Hct MCV MCH MCHC RDW Plt Count MPV Neut % (Auto) Lymph % (Auto) Tift % (Auto) Eos % (Auto) Baso % (Auto) Neut # (Auto) Lymph # (Auto) Tift # (Auto) Eos # (Auto) Baso # (Auto) Nucleated RBC % (a uto) Nucleated RBCs # D-Dimer Sodium Potassium Chloride Carbon Dioxide Anion Gap BUN Creatinine GFR Calculation Glucose POC Glucose 284 Estimat Average Gl ucose Hemoglobin A1c Calcium Total Bilirubin AST ALT Alkaline Phosphata se Troponin I 6 Hour 18.12 H Troponin I Hi Sens Del -3.88 L Troponin T 120 Min qagan [place] Delta Troponin T Total Protein Albumin Globulin Triglycerides Cholesterol LDL Cholesterol, C alc HDL Cholesterol LDL/HDL Ratio Cholesterol/HDL Ra carlos Procalcitonin 0.26 TSH Urine Color Urine Appearance Urine pH Ur Specific Gravit y Urine Protein Urine Glucose (UA) Urine Ketones Urine Occult Blood Urine Nitrate Urine Bilirubin Urine Urobilinogen Ur Leukocyte Maggie ase Urine RBC Urine WBC Ur Squamous Epith Cells Ur Transition Epit h Cell Urine Bacteria Influenza Type A A g POC Influenza B Ag 07/14/19 07/14/19 07/14/19 13:34 13:31 11:31 WBC RBC Hgb Hct MCV MCH MCHC RDW Plt Count MPV Neut % (Auto) Lymph % (Auto) Tift % (Auto) Eos % (Auto) Baso % (Auto) Neut # (Auto) Lymph # (Auto) Tift # (Auto) Eos # (Auto) Baso # (Auto) Nucleated RBC % (a uto) Nucleated RBCs # D-Dimer Sodium Potassium Chloride Carbon Dioxide Anion Gap BUN Creatinine GFR Calculation Glucose POC Glucose Estimat Average Gl ucose Hemoglobin A1c Calcium Total Bilirubin AST ALT Alkaline Phosphata se Troponin I 6 Hour Troponin I Hi Sens Del Troponin T 120 Min qagan [place] 20.22 H Delta Troponin T -1.78 L Total Protein Albumin Globulin Triglycerides 131 Cholesterol 197 LDL Cholesterol, C alc 132 H HDL Cholesterol 39 L LDL/HDL Ratio 3.38 H Cholesterol/HDL Ra carlos 5.05 H Procalcitonin TSH 2.90 Urine Color Urine Appearance Urine pH Ur Specific Gravit y Urine Protein Urine Glucose (UA) Urine Ketones Urine Occult Blood Urine Nitrate Urine Bilirubin Urine Urobilinogen Ur Leukocyte Maggie ase Urine RBC Urine WBC Ur Squamous Epith Cells Ur Transition Epit h Cell Urine Bacteria Influenza Type A A g Negative POC Influenza B Ag Negative 07/14/19 07/14/19 11:31 11:31 WBC RBC Hgb Hct MCV MCH MCHC RDW Plt Count MPV Neut % (Auto) Lymph % (Auto) Tift % (Auto) Eos % (Auto) Baso % (Auto) Neut # (Auto) Lymph # (Auto) Tift # (Auto) Eos # (Auto) Baso # (Auto) Nucleated RBC % (a uto) Nucleated RBCs # D-Dimer 0.54 Sodium Potassium Chloride Carbon Dioxide Anion Gap BUN Creatinine GFR Calculation Glucose POC Glucose Estimat Average Gl ucose 266 Hemoglobin A1c 10.9 H Calcium Total Bilirubin AST ALT Alkaline Phosphata se Troponin I 6 Hour Troponin I Hi Sens Del Troponin T 120 Min qagan [place] Delta Troponin T Total Protein Albumin Globulin Triglycerides Cholesterol LDL Cholesterol, C alc HDL Cholesterol LDL/HDL Ratio Cholesterol/HDL Ra carlos Procalcitonin TSH Urine Color Urine Appearance Urine pH Ur Specific Gravit y Urine Protein Urine Glucose (UA) Urine Ketones Urine Occult Blood Urine Nitrate Urine Bilirubin Urine Urobilinogen Ur Leukocyte Maggie ase Urine RBC Urine WBC Ur Squamous Epith Cells Ur Transition Epit h Cell Urine Bacteria Influenza Type A A g POC Influenza B Ag Imaging^: CXR: Radiologist's impression: XRay Report Signed Patient: Arnol Guzman DMR#: [id number] : 1970Acct:[id number] Age/Sex: 49 / MADM Date: 07/14/19 Loc: ER Attending Dr: Ordering Physician: Mili Dia DO Date of Service: 07/14/19 Procedure(s): XR chest 1V portable [id number] Accession Number(s): [id number] Report Number: [id number] WS: [id number] Portable AP upright chest, 07/14/2019 Clinical Data: DYSPNEA Comparison: Portable chest, 08/30/2014 Findings: No nodules, masses or effusions are seen. The pulmonary vascularity is increased. The heart size is at the upper limits of normal. No pneumonia or pneumothorax is seen. XR/XR chest 1V portable [id number] Impression: Cardiomegaly and pulmonary vascular congestion. Addt'l Data from Hospital Stay: Echocardiogram 2019 Indication: CHF BP: 168 / 80 HR: 94 Rhythm: Sinus Technical Quality: Poor MEASUREMENTS (Male / Female) Normal Values 2D ECHO LV Diastolic Diameter PLAX 3.6 cm 4.2 - 5.9 / 3.9 - 5.3 cm LV Systolic Diameter PLAX 2.7 cm IVS Diastolic Thickness 1.1 cm 0.6 - 1.0 / 0.6 - 0.9 cm IVS Systolic Thickness 1.6 cm LVPW Diastolic Thickness 1.1 cm 0.6 - 1.0 / 0.6 - 0.9 cm LVPW Systolic Thickness 1.5 cm LVOT Diameter 2.0 cm LV Ejection Fraction 2D Teich 50.2 % LV Ejection Fraction MOD 2C 45.9 % LV Ejection Fraction 2C AL 45.9 % LA Diameter 4.6 cm LA Width 4.5 cm LA Height 6.0 cm RA Width 4.1 cm RA Height 4.8 cm M-MODE LV Diastolic Diameter MM 5.3 cm 4.2 - 5.9 / 3.9 - 5.3 cm LV Systolic Diameter MM 3.3 cm LV Ejection Fraction MM Teich 68.6 % IVS Diastolic Thickness MM 1.1 cm 0.6 - 1.0 / 0.6 - 0.9 cm IVS Systolic Thickness MM 1.7 cm LVPW Diastolic Thickness MM 1.3 cm 0.6 - 1.0 / 0.6 - 0.9 cm LVPW Systolic Thickness MM 2.2 cm RV Diastolic Diameter MM 1.1 cm Aortic Annulus Diameter 3.6 cm LA Ao Ratio MM 1.3 MV E Point Septal Separation 0.8 cm DOPPLER AV Peak Velocity 162.0 cm/s LVOT Peak Velocity 107.0 cm/s AV Area Cont Eq vti 1.9 cm squared AV Area Cont Eq pk 2.1 cm squared MV Area PHT 5.0 cm squared Mitral E to A Ratio 1.4 MV E' Velocity 10.0 cm/s Mitral E to MV E' Ratio 15.1 Mitral E to LV E' Lateral Ratio 13.7 Mitral E to LV E' Septal Ratio 16.7 TR Peak Velocity 176.0 cm/s TR Peak Gradient 12.4 mmHg Right Atrial Pressure 8.0 mmHg Pulmonary Artery Systolic Pressu 20.4 mmHg PV Peak Velocity 111.0 cm/s FINDINGS Left Ventricle Normal left ventricular cavity size. Normal left ventricular systolic function. No regional wall motion abnormalities. Left ventricular ejection fraction is estimated at 68 %. Normal diastolic function. Right Ventricle The right ventricle is normal in size and function. Right Atrium The right atrium is normal in size. Left Atrium The left atrium is normal in size. Mitral Valve Moderately thickened mitral valve. No mitral valve stenosis. No mitral valve regurgitation. Aortic Valve Aortic valve sclerosis without stenosis or regurgitation. Tricuspid Valve Structurally normal tricuspid valve without significant stenosis or regurgitation. Pulmonary artery systolic pressure is normal. Pulmonic Valve Structurally normal pulmonic valve without significant stenosis. There is no pulmonic regurgitation. Pericardium Normal pericardium without effusion. Aorta Normal ascending aorta dimension. CONCLUSIONS 1-Normal left ventricular cavity size. Normal left ventricular systolic function. No regional wall motion abnormalities. Left ventricular ejection fraction is estimated at 68 %. Normal diastolic function. 2-There is no pericardial effusion. 3-No significant valve abnormalities. 4-Pulmonary artery systolic pressure is within normal limits. 5-There are no prior echocardiogram studies to compare. Lester Connelly MD (Electronically Signed) Final Date: 14 July 2019 17:07 Vitals: Last Vital Signs Temp 97.7 F 07/15/19 11:14 Pulse 74 07/15/19 11:14 Resp 18 07/15/19 11:14 BP 123/73 07/15/19 11:14 Pulse Ox 92 07/15/19 11:14 Discharge Plan Discharge Patient Disposition: Home, Self-Care Condition: Stable Prescriptions: New lisinopril 20 mg Tablet 20 mg PO DAILY 30 Days Qty: 30 RF: 1 Lasix 40 mg tablet 40 mg PO QAM 30 Days Qty: 30 RF: 0 Continued Lipitor 80 mg Tablet 80 mg PO DAILY RF: 0 atenolol 100 mg Tablet 100 mg PO DAILY RF: 0 omeprazole 40 mg Capsule,Delayed Release(Dr/Ec) 40 mg PO DAILY RF: 0 Aspir-81 81 mg Tablet,Delayed Release (Dr/Ec) 81 mg PO DAILY RF: 0 nystatin 100,000 unit/gram Cream 1 applic TOPICAL BID PRN (Reason: UNKNOWN) RF: 0 Singulair 10 mg Tablet 10 mg PO DAILY RF: 0 allopurinol 300 mg Tablet 300 mg PO DAILY RF: 0 ProAir HFA 90 mcg/actuation HFA aerosol inhaler 2 - 4 puff INHALATION QID PRN (Reason: Shortness Of Breath) RF: 0 metformin 500 mg Tablet Extended Release 24 Hr 500 mg PO BID RF: 0 loratadine 10 mg Tablet 10 mg PO DAILY RF: 0 Tresiba FlexTouch U-200 200 unit/mL (3 mL) Insulin Pen 25 unit SUBCUT DAILY RF: 0 Discontinued lisinopril-hydrochlorothiazide 10-12.5 mg Tablet 1 tab PO DAILY RF: 0 Discharge Orders: Discharge Order (Routine); Ordered 07/15/19 Ordered By: Mendez Farmer Other Ambulatory Orders: DME: Oxygen (Order) Location: None Selected Ordered By: Mendez Farmer Referrals: Stewart Rosario MD [Family Provider] - (Follow up with Dr. Rosario on July 18 at 10:45 AM) Discharge Diet: Low Salt Discharge Activity: Oxygen as instructed Patient Instructions: Lisinopril (By mouth), Furosemide (By mouth), Hypertension, Heart Failure (DC), Sleep Apnea Syndrome (DC), CHF Stoplight Discharge Date/Time: 07/15/19 17:10 Discharge Attestations Time Spent in Discharge Care*: greater than 30 min Specific Discharge Activities: Specific discharge activities: educating patient (Need of Sleep Study- for CPAP) Status at Discharge: Cognitive status at discharge: cognitively intact, Behavioral status at discharge: cooperative, Functional status at discharge: other (New oxygen requirement, ) Quality Metrics Clinical Quality Measures During this hospital stay, did patient experience: None Coding Level of Care Code Acute Bone Plant Supervisor for g Fwd Diagnoses CHF (congestive heart failure) I50.9 Heart failure chronicity: acute Heart failure type: unspecified OPAL (obstructive sleep apnea) G47.33 Morbid (severe) obesity due to excess calories E66.01 Hypertension I10 Hypertension type: essential hypertension Diabetes E11.9 Diabetes mellitus complication status: with circulatory complication Diabetes mellitus terminal superintendent insulin use: with custodial use Diabetes mellitus type: type 2
[2019-07-16 09:30] LABS: Oxygen Device NC
[2019-07-16 09:31] LABS: Carboxyhemoglobin 1.3 %THgb (0.4-20.1); Methemoglobin 0.2 % (0.4-1.5); Total Hemoglobin 12.2 g/dL (14-18)
== END 2019-07-15 17:10 | disposition home or self-care (01) | DRG 292 ==
LOC: ER 12:28 → MEDSURG 14:02
PROVIDERS: Admitting Provider Student in an Organized Health Care Education/Training Program; Emergency Provider Emergency Medicine; Family Provider Family Medicine; Visit Provider Student in an Organized Health Care Education/Training Program
DX: I11.0 Hypertensive heart disease with heart failure (principal); Z68.44 Body mass index [BMI] 60.0-69.9, adult; G47.33 Obstructive sleep apnea (adult) (pediatric); E66.01 Morbid (severe) obesity due to excess calories; E11.9 Type 2 diabetes mellitus without complications; E78.5 Hyperlipidemia, unspecified; J44.9 Chronic obstructive pulmonary disease, unspecified; Z99.81 Dependence on supplemental oxygen; Z79.82 Long term (current) use of aspirin; Z79.4 Long term (current) use of insulin; Z79.51 Long term (current) use of inhaled steroids; M10.9 Gout, unspecified; Z77.22 Contact with and (suspected) exposure to environmental tobacco smoke (acute) (chronic); I50.9 Heart failure, unspecified
CPT/HCPCS: 36415; 36416; 36600; 71045; 80053; 80061; 81001; 82805; 82962; 83036; 83735; 83880; 84145; 84443; 84484; 85025; 85378; 87040; 87804; 93005; 93306; 93970; 94640; 96372; 96375; 99283; J1650; J1815; J1940; J2930; J3475

== ENCOUNTER 2019-07-14 10:55 | Emergency (ER) | payer MEDICAID, SELFPAY | END 2019-07-14 13:57 | disposition admitted as inpatient to this hospital (09) | LOC: ER 08-22 10:06 | PROVIDERS: Emergency Provider Emergency Medicine; Family Provider Family Medicine; PCP Family Medicine | DX: I11.0 Hypertensive heart disease with heart failure (principal); I50.9 Heart failure, unspecified; E11.9 Type 2 diabetes mellitus without complications; E78.2 Mixed hyperlipidemia; G47.33 Obstructive sleep apnea (adult) (pediatric); E66.01 Morbid (severe) obesity due to excess calories | CPT/HCPCS: 36415; 36600; 71045; 80053; 80061; 82805; 83036; 83735; 83880; 84145; 84443; 84484; 85025; 85378; 87040; 87804; 93005; 96374; 96375; 99283; 99285; J1940; J2930 ==

== ENCOUNTER 2019-08-13 20:00 | Outpatient (CLI) | payer MEDICAID, SELFPAY | END 2019-08-13 20:01 | disposition home or self-care (01) | LOC: SLEEP 08-14 10:42 | PROVIDERS: Family Provider Family Medicine; PCP Family Medicine; Visit Provider Family Medicine | DX: G47.33 Obstructive sleep apnea (adult) (pediatric) (principal) | CPT/HCPCS: 95810; 95811 ==

== ENCOUNTER 2019-10-07 10:33 | Emergency (ER) | payer MEDICAID, SELFPAY ==
[2019-10-07 10:35] VITALS: BP 153/60; PULSE 71; RESP 15; TEMP 36.4; O2SAT 98; BMI 61.2
--- NOTE | 2019-10-07 10:42 | W.ED.SOB ---
HPI - SOB/Dyspnea General: Chief Complaint: Shortness of Breath/Dyspnea Stated Complaint: SOB Time Seen by Provider: 10/07/19 10:36 Source: patient Mode of arrival: EMS Limitations: no limitations History of Present Illness: HPI Narrative: Patient is a 49-year-old male with a history of DM, HTN, CHF, gout, and morbid obesity here after being brought by EMS for complaints of cough and shortness of breath. Patient states symptoms have been present over the past 2 to 3 days. Patient tells me he normally wears 2L O2 via NC at all times and often has to bump this up with exertion. He has not had to increase his O2 while at home. He states cough is progressively becoming productive. He denies fevers. He reported a small amount of chest pain prior to EMS arriving however is completely pain-free upon arrival to the ED. He is concerned he is having worsening CHF-patient has not noticed any worsening swelling to his lower extremities. MD elicited complaint: shortness of breath and cough Pertinent past history: congestive heart failure and diabetes Onset (ago): day(s) Timing: constant Exacerbating factors: nothing Relieving factors: nothing Associated symptoms: Reports chest congestion; Deny abdominal pain, chest pain (briefly-prior to EMS arriving but asymptomatic now), fever(s), hemoptysis, lightheadedness, nausea, orthopnea, palpitations, syncope or vomiting Review of Systems Const: Denies: fever, chills, body aches, change in appetite, change in weight, fatigue or malaise Eyes: Denies: change in vision, blurry vision or photophobia ENMT: Denies: throat pain, enlarged tonsils or painful swallowing Card: Reports: swelling of feet/ankles (chronically-not worsening ) and shortness of breath on exertion (chronically); Denies: chest pain (briefly-prior to EMS arriving but asymptomatic now), palpitations, irregular heart rhythm, edema, lightheadedness, syncope, pre-syncope or shortness of breath when lying down Resp: Reports: shortness of breath, productive cough and chest congestion; Denies: pain on inspiration or coughing up blood GI: Denies: abdominal pain, nausea, vomiting, heartburn/indigestion or diarrhea : Denies: difficulty urinating or painful urination Musc: Denies: neck pain, back pain or joint pain Skin/Breast: Denies: rash Neuro: Denies: headache, numbness in extremities, weakness in extremities or changes in sensation PFSH ED PFSH: Social History Smoking and tobacco status: never smoked Second hand smoke exposure: Yes Alcohol intake: never Lives independently: Yes Household members: friend(s) Physical Exam Const: COMMON NORMALS: no apparent distress, oriented x3, no limitations and alert NUTRITIONAL APPEARANCE: obese morbidly obese HENMT: COMMON NORMALS: normocephalic, head/scalp atraumatic, EAC's normal and TM's normal bilaterally HEAD & SCALP: normal to inspection, normocephalic and atraumatic FACE & SINUS: normal facial exam and sinuses nontender EXTERNAL AUDITORY CANAL: EAC's normal TYMPANIC MEMBRANE: TM's normal bilaterally MOUTH: oral and palatal mucosa normal, lip normal and tongue normal THROAT: posterior oropharynx normal, tonsils normal and uvula midline Eye: COMMON NORMALS: PERRL and EOMs intact bilaterally PUPIL: Yes PERRL Neck/C-Spine: COMMON NORMALS: full ROM, no lymphadenopathy, supple and no meningeal signs Chest: COMMONS NORMALS: inspection of chest normal and palpation of chest normal Resp: COMMON NORMALS: normal respiratory effort and clear to auscultation bilaterally AUSCULTATION: clear to auscultation bilaterally Cardio: COMMON NORMALS: regular rate and regular rhythm RATE: regular rate RHYTHM: regular rhythm GI: COMMON NORMALS: normal to inspection, nondistended, normoactive bowel sounds, soft to palpation, non-tender, no hepatosplenomegaly and no masses PALPATION: Yes soft and Yes no hepatosplenomegaly : COMMON NORMALS: Yes no CVA tenderness BLADDER/KIDNEY EXAM: Yes no CVA tenderness Back/Pelvis: COMMON NORMALS: no CVA tenderness and thoracic and lumbar spine normal to inspection Extremity: OTHER: chronic bilateral non-pitting edema but patient is also morbidly obese so this is hard to tell if this is actual edema vs just body habitus Neuro: COMMON NORMALS: oriented x3 SENSORIUM/ORIENTATION: Yes alert MENINGEAL SIGNS: Yes no meningeal signs Skin: COMMON NORMALS: no rashes or lesions noted GENERAL SKIN EXAM: no rashes or lesions noted Course Vital Signs: Vital signs: Vital Signs Temperature 97.6 F 10/07/19 10:35 Pulse Rate 75 10/07/19 12:09 Respiratory Rate 16 10/07/19 12:09 Blood Pressure 145/75 10/07/19 12:09 Pulse Oximetry 98 10/07/19 12:09 MDM - SOB/Dyspnea MDM Narrative: Medical decision making narrative: Patient clinically and based on his history is not fluid overloaded. He does not complain of worsening lower extremity swelling. He has not had increase his oxygen. He denies orthopnea or paroxysmal nocturnal dyspnea. CXR does show some pulmonary congestion but this is stable from 2 months ago. Echo performed in Jul showed EF of 68%. BNP is mildly elevated when compared to previous. I do not feel patient needs to come into the hospital. He was given 40 mg IV Lasix here and we will increase his Lasix at home over the next 4 days. Was given supplemental potassium as well. Case management will work on getting him set up with a cardiology appointment in the next 1 to 2 weeks for reevaluation. Lab Data: Labs: Lab Results 10/07/19 10/07/19 10/07/19 Range/Units 10:54 10:54 10:54 WBC 6.7 (4.0-10.0) 10^3/ uL RBC 4.62 (4.1-5.3) 10^6/u L Hgb 11.5 L (11.7-16.6) g/dL Hct 40.2 L (42.0-52.0) % MCV 87.0 (80-94) fL MCH 24.9 L (28.0-34.0) pg MCHC 28.6 L (30.0-36.0) g/dL RDW 15.6 H (12.1-15.1) % Plt Count 219 (130-400) 10^3/c mm MPV 9.1 (7.4-10.4) fL Neut % (Auto) 79.3 % Lymph % (Auto) 14.9 % Pope % (Auto) 5.2 % Eos % (Auto) 0.4 % Baso % (Auto) 0.1 % Neut # (Auto) 5.3 (1.8-7.7) 10^3/u L Lymph # (Auto) 1.0 (0.8-4.8) 10^3/u L Pope # (Auto) 0.4 (0.2-0.9) 10^3/u L Eos # (Auto) 0.0 (0.0-0.8) 10^3/u L Baso # (Auto) 0.0 (0.0-0.1) 10^3/u L Nucleated RBC % (a uto) 0 % Nucleated RBCs # 0.0 /100WBC Sodium 139 (136-145) mmol/L Potassium 3.4 L (3.5-5.1) mmol/L Chloride 95 L (98-107) mmol/L Carbon Dioxide 33 H (22-29) mmol/L Anion Gap 14.4 (5-19) BUN 13 (6-20) mg/dL Creatinine 1.0 (0.7-1.2) mg/dL GFR Calculation 80.1 L (90-130) mL/min Glucose 235 H (65-115) mg/dL Calculated Osmolal ity 292 (285-295) mOsm/k g Calcium 9.0 (8.5-10.5) mg/dL Total Bilirubin 1.0 (0.15-1.2) mg/dL AST 17 (0-40) U/L ALT 17 (0-41) U/L Alkaline Phosphata se 280 H (40-130) IU/L Troponin T Baselin e 23 H (0-15) ng/mL NT-Pro-B Natriuret Pep 2011 H (0-125) pg/mL Total Protein 6.9 (6.6-8.7) g/dL Albumin 3.4 L (3.5-5.2) g/dL Globulin 3.5 (1.3-4.6) g/dL Imaging Data^: CXR: Radiologist's impression: [facility] [address] [address] XRay Report Signed Patient: Arnol Guzman Unit #: [id number] : [id number] Age/Sex: 49 / M ADM Date: 10/07/19 Loc: ER Room/Bed: Attending Dr: Ordering Provider/Ordering MD: Malena Carranza Date of Service: 10/07/19 Procedure(s): XR chest 1V portable [id number] Accession Number(s): [id number] Report Number: [id number] WS: [id number] PORTABLE CHEST HISTORY: cough/congestion COMPARISON: 07/14/2019 Moderate elevation RIGHT hemidiaphragm is stable. Diffuse scattered opacifications over both lungs consistent with pulmonary venous congestion. No pleural effusion or pneumothorax. Cardiac size: Mildly enlarged cardiac silhouette. Mediastinum/Aorta: Normal mediastinum. No osseous abnormality seen. XR/XR chest 1V portable [id number] IMPRESSION: 1. Moderate pulmonary venous congestion. Recommend follow-up to resolution to be sure there are no underlying pulmonary nodules. 2. Cardiomegaly. Dictated By: Aarti Perez DO Signed By: Aarti Perez DO Signed Date/Time: 10/07/19 111 DD/ 1113 Discharge Plan Discharge Patient Disposition: Home, Self-Care Clinical Impression: CHF (congestive heart failure) Condition: Stable Prescriptions: New furosemide 40 mg tablet 60 mg PO DAILY Qty: 6 RF: 0 No Action Dulera 200-5 mcg/actuation HFA aerosol inhaler 2 puff INHALATION BID RF: 0 glipizide 10 mg tablet 10 mg PO BID RF: 0 fluconazole 150 mg tablet 150 mg PO .weekly RF: 0 Lipitor 80 mg Tablet 80 mg PO DAILY RF: 0 atenolol 100 mg Tablet 100 mg PO DAILY RF: 0 omeprazole 40 mg Capsule,Delayed Release(Dr/Ec) 40 mg PO DAILY RF: 0 Aspir-81 81 mg Tablet,Delayed Release (Dr/Ec) 81 mg PO DAILY RF: 0 nystatin 100,000 unit/gram Cream 1 applic TOPICAL BID PRN (Reason: UNKNOWN) RF: 0 Singulair 10 mg Tablet 10 mg PO DAILY RF: 0 allopurinol 300 mg Tablet 300 mg PO DAILY RF: 0 ProAir HFA 90 mcg/actuation HFA aerosol inhaler 2 - 4 puff INHALATION QID PRN (Reason: Shortness Of Breath) RF: 0 metformin 500 mg Tablet Extended Release 24 Hr 500 mg PO BID RF: 0 loratadine 10 mg Tablet 10 mg PO DAILY RF: 0 Tresiba FlexTouch U-200 200 unit/mL (3 mL) Insulin Pen 25 unit SUBCUT DAILY RF: 0 lisinopril 20 mg Tablet 20 mg PO DAILY 30 Days Qty: 30 RF: 1 Discharge Orders: Discharge Order (Routine); Ordered 10/07/19 Ordered By: Malena Carranza Referrals: Stewart Rosario MD [Primary Care Provider] - Activity Restrictions/Additional Instructions: I am increasing your Lasix from 40 mg daily to 60 mg daily over the next 4 days. I have written you a new prescription for 6 tablets (1.5 tabs daily) to supply you over the next 4 days. 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 Return to the emergency department for worsening shortness of breath, having to increase her oxygen, shortness of breath with lying down, waking up in the middle of the night with shortness of breath, worsening lower extremity swelling, fevers, or any other concerns you may have. Coding Level of Care Code ED Motor Grader Rough Grade for Zac Fwharper Exam Comprehensive
--- NOTE | 2019-10-07 10:44 | XR_ITS ---
WS: [id number] PORTABLE CHEST HISTORY: cough/congestion COMPARISON: 07/14/2019 Moderate elevation RIGHT hemidiaphragm is stable. Diffuse scattered opacifications over both lungs co nsistent with pulmonary venous congestion. No pleural effusion or pneumothorax. Cardiac size: Mildly enlarged cardiac silhouette. Mediastinum/Aorta: Normal mediastinum. No osseous abnormality seen. XR/XR chest 1V portable [id number] IMPRESSION: 1. Moderate pulmonary venous congestion. Recommend follow-up to resolution to be sure there are no underlying pulmonary nodules. 2. Cardiomegaly.
--- NOTE | 2019-10-07 10:44 | ECG_ITS ---
Measurements Intervals [place] Rate: 73 P: 72 DC: 169 QRS: 30 QRSD: 98 T: 129 QT: 415 QTc: 460 SINUS RHYTHM POSSIBLE RIGHT VENTRICULAR CONDUCTION DELAY [RSR (QR) IN V1/V2] NONSPECIFIC T-WAVE ABNORMALITY INTERPRETATION BASED ON A DEFAULT AGE OF 40 YEARS Compared to ECG 07/14/2019 17:47:58 No significant changes Electronically Signed On 10-07-2019 19:24:01 CDT by Lester Connelly M.D. [id number]
[2019-10-07 11:02] LABS: Basophils % 0.1 %; Eosinophils % 0.4 %; Hematocrit 40.2 % (42.0-52.0); Hemoglobin 11.5 g/dL (11.7-16.6); Lymphocytes % 14.9 %; Mean Corpuscular HGB Conc 28.6 g/dL (30.0-36.0); Mean Corpuscular Hemoglobin 24.9 pg (28.0-34.0); Mean Platelet Volume 9.1 fL (7.4-10.4); Monocytes # 0.4 10^3/uL (0.2-0.9); Monocytes % 5.2 %; Neutrophils # 5.3 10^3/uL (1.8-7.7); Neutrophils % 79.3 %; Nucleated Red Blood Cells % 0 %; Platelet Count 219 10^3/cmm (130-400); Red Blood Count 4.62 10^6/uL (4.1-5.3); Red Cell Distribution Width 15.6 % (12.1-15.1); White Blood Count 6.7 10^3/uL (4.0-10.0)
[2019-10-07 11:25] LABS: Troponin(5th) Baseline 23 ng/mL (0-15)
[2019-10-07 11:33] LABS: Alanine Aminotransferase 17 U/L (0-41); Albumin Level 3.4 g/dL (3.5-5.2); Alkaline Phosphatase 280 IU/L (40-130); Anion Gap 14.4 (5-19); Aspartate Amino Transferase 17 U/L (0-40); Blood Urea Nitrogen 13 mg/dL (6-20); Carbon Dioxide 33 mmol/L (22-29); Chloride 95 mmol/L (98-107); Globulin 3.5 g/dL (1.3-4.6); Glomerular Filtration Rate 80.1 mL/min (90-130); Glucose 235 mg/dL (65-115); NT Pro B Type Natriuretic Pept 2011 pg/mL (0-125); Osmolality Calculated 292 mOsm/kg (285-295); Potassium 3.4 mmol/L (3.5-5.1); Sodium 139 mmol/L (136-145); Total Protein 6.9 g/dL (6.6-8.7)
[2019-10-07] MEDS: FUROsemide 10 mg/mL SDV 4mL 40 MG IVP (12:01)
[2019-10-07 12:09] VITALS: BP 145/75; PULSE 75; RESP 16; O2SAT 98
--- NOTE | 2019-10-07 12:52 | DCPLANNER ---
consumer loan manager was asked to schedule a follow up appointment for patient with [facility]. consumer loan manager called [facility] spoke with Violet, a follow up appointment was scheduled for Monday, October 14, 2019 at 11:00 with BOAT CLEANING SUPERVISOR, Amira Thakkar. consumer loan manager gave patient the appointment information.
--- NOTE | 2019-11-25 15:45 | DCPLANNER ---
Patient did attend appointment scheduled for 10.14.19 with [facility].
== END 2019-10-07 12:10 | disposition home or self-care (01) ==
LOC: ER 13:48
PROVIDERS: Emergency Provider Physician Assistant; Family Provider Family Medicine; PCP Family Medicine
DX: I50.9 Heart failure, unspecified (principal); I87.8 Other specified disorders of veins; E11.9 Type 2 diabetes mellitus without complications; I10 Essential (primary) hypertension; E66.01 Morbid (severe) obesity due to excess calories; Z79.82 Long term (current) use of aspirin; Z99.81 Dependence on supplemental oxygen
CPT/HCPCS: 12345; 36415; 71045; 80053; 83880; 84484; 85025; 93005; 96374; 96375; 99282; 99284; J1940

== ENCOUNTER 2019-10-15 10:43 | Emergency (ER) | payer MEDICAID, SELFPAY ==
[2019-10-15 10:59] VITALS: BP 151/80; PULSE 70; RESP 16; TEMP 36.9; O2SAT 93; BMI 61.2
--- NOTE | 2019-10-15 11:10 | ED_ITS ---
HPI - SOB/Dyspnea General: Chief Complaint: Shortness of Breath/Dyspnea Stated Complaint: SOB Time Seen by Provider: 10/15/19 11:07 Source: patient and RN notes reviewed Mode of arrival: ambulatory Limitations: no limitations History of Present Illness: HPI Narrative: 49-year-old with history of CHF on 2 L of oxygen at all times at home with increased shortness of breath for 2 days. He was on 60 mg of Lasix daily until 2 days ago and went back down to his usual 40 mg daily dose. States has been worse since then. Feels like he has stuff in his lungs that he cannot cough up. Feels like his legs are more swollen in the last couple of days as well and cannot lay flat. No known fever. States he has been vomiting a little bit today but it is because he is trying to cough no diarrhea. Associated symptoms: Reports vomiting; Deny abdominal pain, chest pain, fever(s), nausea or polyuria Review of Systems General: Reports: 10 or more systems reviewed and unremarkable except in HPI and below Const: Denies: fever or chills Eyes: Denies: change in vision ENMT: Denies: throat pain Card: Denies: chest pain Resp: Reports: shortness of breath GI: Reports: vomiting; Denies: abdominal pain, nausea or change in bowel habits Musc: Denies: muscle weakness Skin/Breast: Denies: rash Neuro: Denies: headache Psych: Denies: hopelessness or suicidal ideation Endo: Denies: excessive urination Mendel/Lymph: Denies: easy bruising or easy bleeding All/Imm: Denies: hives PFSH ED PFSH: Social History Smoking and tobacco status: former smoker Second hand smoke exposure: Yes Alcohol intake: never Lives independently: Yes Household members: friend(s) Physical Exam Const: COMMON NORMALS: no apparent distress, oriented x3, alert and well nourished HENMT: COMMON NORMALS: normocephalic and external nose normal HEAD & SCALP: normocephalic NOSE: external nose normal MOUTH: no trismus Eye: COMMON NORMALS: EOMs intact bilaterally and conjunctivae normal CONJUNCTIVA: Yes conjunctivae normal Neck/C-Spine: COMMON NORMALS: full ROM, no lymphadenopathy and supple CERVICAL SPINE: Yes cervical ROM normal Lymph: LYMPHATIC: no lymphadenopathy noted Resp: COMMON NORMALS: normal respiratory effort, no retractions and no use of accessory muscles EFFORT & INSPECTION: Yes able to speak in complete sentences AUSCULTATION: crackles Cardio: COMMON NORMALS: regular rate and regular rhythm RATE: regular rate RHYTHM: regular rhythm GI: COMMON NORMALS: normal to inspection, nondistended, normoactive bowel sounds, soft to palpation, non-tender and no masses INSPECTION: Yes normal to inspection AUSCULTATION: Yes normoactive bowel sounds PALPATION: Yes soft, No guarding and No rigid Back/Pelvis: OTHER: Normal range of motion Extremity: NARRATIVE EXTREMITY EXAM: trace bilateral pitting edema GENERAL: Yes normal exam except as noted Neuro: COMMON NORMALS: oriented x3 and CN's II-XII intact bilaterally SENSORIUM/ORIENTATION: Yes alert SPEECH: speech normal Psych: COMMON NORMALS: mental status grossly normal Skin: COMMON NORMALS: no rashes or lesions noted GENERAL SKIN EXAM: no rashes or lesions noted Course Vital Signs: Vital signs: Vital Signs Temperature 98.4 F 10/15/19 10:59 Pulse Rate 70 10/15/19 12:58 Respiratory Rate 21 H 10/15/19 12:58 Blood Pressure 148/84 10/15/19 12:58 Pulse Oximetry 98 10/15/19 12:58 MDM - SOB/Dyspnea MDM Narrative: Medical decision making narrative: Fluid overloaded by exam, BNP and chest x-ray. Told him to go back to his 60 mg regimen of Lasix he can start with an additional 20 tonight. He has not urinated yet but is asking if he can go home he received IV Lasix. He states he is hungry. We will have him take a urinal with him. Lab Data: Labs: Lab Results 10/15/19 10/15/19 10/15/19 Range/Units 11:10 11:10 11:34 WBC 6.5 (4.0-10.0) 10^3/ uL RBC 4.51 (4.1-5.3) 10^6/u L Hgb 11.0 L (11.7-16.6) g/dL Hct 38.9 L (42.0-52.0) % MCV 86.3 (80-94) fL MCH 24.4 L (28.0-34.0) pg MCHC 28.3 L (30.0-36.0) g/dL RDW 15.5 H (12.1-15.1) % Plt Count 248 (130-400) 10^3/c mm MPV 9.5 (7.4-10.4) fL Neut % (Auto) 73.7 % Lymph % (Auto) 19.5 % Lee % (Auto) 5.7 % Eos % (Auto) 0.5 % Baso % (Auto) 0.3 % Neut # (Auto) 4.8 (1.8-7.7) 10^3/u L Lymph # (Auto) 1.3 (0.8-4.8) 10^3/u L Lee # (Auto) 0.4 (0.2-0.9) 10^3/u L Eos # (Auto) 0.0 (0.0-0.8) 10^3/u L Baso # (Auto) 0.0 (0.0-0.1) 10^3/u L Nucleated RBC % (a uto) 0 % Nucleated RBCs # 0.0 /100WBC Specimen Type Arterial Sample Site Radial, left ABG pH 7.42 (7.35-7.45) ABG pCO2 54.9 H (35-45) mmHg ABG pO2 80.4 (80.0-100.0) mmH g ABG HCO3 35.7 H (22-26) mmol/L ABG Base Excess 9.7 H (-2.0-2.0) mmol/ L Luis Test Pos Hematocrit 34.6 L (42-52) % O2 Delivery Device Nc O2 Liters/Min 1.0 % FiO2 24.0 % Recovery Operator Helper ID amh Sodium 140 (136-145) mmol/L Potassium 3.3 L (3.5-5.1) mmol/L Chloride 96 L (98-107) mmol/L Carbon Dioxide 35 H (22-29) mmol/L Anion Gap 12.3 (5-19) BUN 16 (6-20) mg/dL Creatinine 1.1 (0.7-1.2) mg/dL GFR Calculation 71.8 L (90-130) mL/min Glucose 289 H (65-115) mg/dL Calculated Osmolal ity 297 H (285-295) mOsm/k g Calcium 9.4 (8.5-10.5) mg/dL Total Bilirubin 0.8 (0.15-1.2) mg/dL AST 16 (0-40) U/L ALT 14 (0-41) U/L Alkaline Phosphata se 269 H (40-130) IU/L NT-Pro-B Natriuret Pep 2268 H (0-125) pg/mL Total Protein 7.7 (6.6-8.7) g/dL Albumin 3.6 (3.5-5.2) g/dL Globulin 4.1 (1.3-4.6) g/dL Imaging Data^: CXR: Radiologist's impression: [place] [address] XRay Report Signed Patient: Arnol Guzman #: [id number] : 1970Acct#:[id number] Age/Sex: 49 / MADM Date: 10/15/19 [facility] Attending Dr: Ordering Provider/Ordering MD: Krystle Hwang MD Date of Service: 10/15/19 Procedure(s): XR chest 1V portable [id number] Accession Number(s): [id number] Report Number: [id number] WS: [id number] CHEST XRAY TECHNIQUE: Portable chest. CLINICAL INFORMATION: soa COMPARISON: October 07, 2019 FINDINGS: Heart: Cardiomegaly. Lungs: Mild pulmonary vascular congestion improved from previous. No significant pleural fluid. No focal pneumonia. Chronic elevation hemidiaphragm. Bones: Normal visualized bony structures. XR/XR chest 1V portable [id number] IMPRESSION: Cardiomegaly with improved mild pulmonary vascular congestion. No pleural fluid. Dictated By:Evangelist Sanderson MD Signed By:Evangelist Sanderson MDSigned Date/Time:10/15/19 1151 DD/ 1150 EKG Data^: EKG 1: EKG Interpretation Date: 10/15/19 EKG interpretation time: 11:25 Interpretation: Sinus rate 69 incomplete right bundle branch block with artifact. No acute ST elevation. Discharge Plan Discharge Patient Disposition: Home, Self-Care Clinical Impression: CHF (congestive heart failure) Qualifiers: Heart failure type: unspecified Heart failure chronicity: acute on chronic Qualified Code(s): I50.9 - Heart failure, unspecified Condition: Stable Prescriptions: No Action Dulera 200-5 mcg/actuation HFA aerosol inhaler 2 puff INHALATION BID RF: 0 glipizide 10 mg tablet 10 mg PO BID RF: 0 potassium chloride [Klor-Con M20] 20 mEq tablet,ER particles/crystals 20 meq PO DAILY Qty: 30 RF: 3 atorvastatin [Lipitor] 80 mg Tablet 80 mg PO DAILY RF: 0 atenolol 100 mg Tablet 100 mg PO DAILY RF: 0 omeprazole 40 mg Capsule,Delayed Release(Dr/Ec) 40 mg PO DAILY RF: 0 aspirin [Aspir-81] 81 mg Tablet,Delayed Release (Dr/Ec) 81 mg PO DAILY RF: 0 montelukast [Singulair] 10 mg Tablet 10 mg PO DAILY RF: 0 allopurinol 300 mg Tablet 300 mg PO DAILY RF: 0 albuterol sulfate [ProAir HFA] 90 mcg/actuation HFA aerosol inhaler 2 - 4 puff INHALATION QID PRN (Reason: Shortness Of Breath) RF: 0 metformin 500 mg Tablet Extended Release 24 Hr 1,000 mg PO QAM RF: 0 loratadine 10 mg Tablet 10 mg PO DAILY RF: 0 lisinopril 20 mg Tablet 20 mg PO DAILY 30 Days Qty: 30 RF: 1 Tresiba FlexTouch U-200 200 unit/mL (3 mL) insulin pen 20 unit SUBCUT DAILY RF: 0 furosemide 40 mg tablet 60 mg PO DAILY Qty: 6 RF: 0 Referrals: Stewart Rosario MD [Primary Care Provider] - Discharge Diet: Low Salt Patient Instructions: Congestive Heart Failure Activity Restrictions/Additional Instructions: Go back to taking your Lasix like you were last week 40 mg in the morning and 20 mg at night. You already received 40 mg IV Lasix here in the emergency department today. Discharge Date/Time: 10/15/19 13:00 Coding Level of Care Code ED Facilities Maintenance Manager for Zac Fwharper Exam Comprehensive
--- NOTE | 2019-10-15 11:11 | XR_ITS ---
WS: [id number] CHEST XRAY TECHNIQUE: Portable chest. CLINICAL INFORMATION: soa COMPARISON: October 07, 2019 FINDINGS: Heart: Cardiomegaly. Lungs: Mild pulmonary vascular congestion improved from previous. No significant pleural fluid. No fo sona pneumonia. Chronic elevation hemidiaphragm. Bones: Normal visualized bony structures. XR/XR chest 1V portable [id number] IMPRESSION: Cardiomegaly with improved mild pulmonary vascular congestion. No pleural fluid .
--- NOTE | 2019-10-15 11:11 | ECG_ITS ---
Measurements Intervals [place] Rate: 69 P: 69 MS: 179 QRS: 41 QRSD: 101 T: 92 QT: 409 QTc: 439 SINUS RHYTHM INCOMPLETE RIGHT BUNDLE BRANCH BLOCK [90+ ms QRS DURATION, TERMINAL R IN V1/V2, 40+ ms S IN I/aVL/V4/V5/V6] POSSIBLE LATERAL MYOCARDIAL INFARCTION , OF INDETERMINATE AGE [30 ms Q WAVE IN I/aVL/V5/V6] Compared to ECG 10/07/2019 10:50:16 Incomplete right bundle-branch block now present Myocardial infarct finding now present T-wave abnormality no longer present Electronically Signed On 10-15-2019 18:03:51 CDT by Tay Mireles M.D. [id number]
[2019-10-15 11:24] LABS: Basophils % 0.3 %; Eosinophils % 0.5 %; Hematocrit 38.9 % (42.0-52.0); Lymphocytes # 1.3 10^3/uL (0.8-4.8); Lymphocytes % 19.5 %; Mean Corpuscular HGB Conc 28.3 g/dL (30.0-36.0); Mean Corpuscular Hemoglobin 24.4 pg (28.0-34.0); Mean Corpuscular Volume 86.3 fL (80-94); Mean Platelet Volume 9.5 fL (7.4-10.4); Monocytes # 0.4 10^3/uL (0.2-0.9); Monocytes % 5.7 %; Neutrophils # 4.8 10^3/uL (1.8-7.7); Neutrophils % 73.7 %; Nucleated Red Blood Cells % 0 %; Platelet Count 248 10^3/cmm (130-400); Red Blood Count 4.51 10^6/uL (4.1-5.3); Red Cell Distribution Width 15.5 % (12.1-15.1); White Blood Count 6.5 10^3/uL (4.0-10.0)
[2019-10-15 11:31] VITALS: BP 150/77; PULSE 72; RESP 20; O2SAT 95
[2019-10-15] MEDS: FUROsemide 10 mg/mL SDV 4mL 40 MG IVP (11:44)
[2019-10-15 11:45] LABS: ABG PCO2 54.9 mmHg (35-45); ABG PH Result 7.42 (7.35-7.45); Arterial Blood Gas Hematocrit 34.6 % (42-52); Base Excess ABG 9.7 mmol/L (-2.0-2.0); Blood Gas Allen Test Pos; Blood Gas Operator Identificat amh; Blood Gas Sample Site Radial, left; Blood Gas Sample Type Arterial; HCO3 ABG 35.7 mmol/L (22-26); Oxygen Device NC; PO2 ABG 80.4 mmHg (80.0-100.0)
[2019-10-15 11:45] LABS: Alanine Aminotransferase 14 U/L (0-41); Albumin Level 3.6 g/dL (3.5-5.2); Alkaline Phosphatase 269 IU/L (40-130); Anion Gap 12.3 (5-19); Aspartate Amino Transferase 16 U/L (0-40); Blood Urea Nitrogen 16 mg/dL (6-20); Calcium 9.4 mg/dL (8.5-10.5); Carbon Dioxide 35 mmol/L (22-29); Chloride 96 mmol/L (98-107); Globulin 4.1 g/dL (1.3-4.6); Glomerular Filtration Rate 71.8 mL/min (90-130); Glucose 289 mg/dL (65-115); Osmolality Calculated 297 mOsm/kg (285-295); Potassium 3.3 mmol/L (3.5-5.1); Sodium 140 mmol/L (136-145); Total Bilirubin 0.8 mg/dL (0.15-1.2); Total Protein 7.7 g/dL (6.6-8.7)
[2019-10-15 11:50] LABS: NT Pro B Type Natriuretic Pept 2268 pg/mL (0-125)
[2019-10-15 12:01] VITALS: BP 150/77; PULSE 68; RESP 19; O2SAT 97
[2019-10-15 12:58] VITALS: BP 148/84; PULSE 70; RESP 21; O2SAT 98
== END 2019-10-15 13:00 | disposition home or self-care (01) ==
PROVIDERS: Emergency Provider Emergency Medicine; Family Provider Family Medicine; PCP Family Medicine
DX: I11.0 Hypertensive heart disease with heart failure (principal); I10 Essential (primary) hypertension; E66.01 Morbid (severe) obesity due to excess calories; Z68.44 Body mass index [BMI] 60.0-69.9, adult; E11.9 Type 2 diabetes mellitus without complications; Z79.82 Long term (current) use of aspirin; Z99.81 Dependence on supplemental oxygen; Z87.891 Personal history of nicotine dependence
CPT/HCPCS: 12345; 36415; 36600; 71045; 80053; 82803; 83880; 85025; 93005; 96374; 96375; 99282; 99283; J1940

== ENCOUNTER 2019-11-21 12:50 | Emergency (ER) | payer MEDICAID, SELFPAY ==
[2019-11-21 12:57] VITALS: BP 169/92; PULSE 66; RESP 26; TEMP 36.9; O2SAT 94; BMI 102.7
--- NOTE | 2019-11-21 13:07 | CT_ITS ---
WS: [id number] CT NECK WITHOUT CONTRAST. HISTORY: difficulty talking/slurred/muffled voice; trouble breathing TECHNIQUE: Contiguous 5 mm axial images are performed through the neck without intravenous contrast. Sagittal and coronal reformats are also submitted. All CT scans at [facility] use at leas t one of these dose optimization techniques: automated exposure control; mA and/or kV adjustment per patient size (includes targeted exams where dose is matched to clinical indication); or iterative rec onstruction. CONTRAST: CONTRAST: None DLP: 1102.57 mGy.cm COMPARISON: None. Patient refused IV contrast. Study is significantly limited by body habitus and motion. Mild asymmetry of the nasopharynx but this is probably due to patient's body habitus and supine posit ion. No discrete mass. Hypopharynx is normal. True and false vocal cords are negative. Torus tubarius and fossa of Rosenmuller and parapharyngeal fat are normal. Small cervical chain lymph nodes. Small lymph nodes in the parotid glands. Negative appearance of the salivary glands on this unenhanced study. Straightening of the normal cervical lordosis. Fusion at the C2-3 disc space. Visualized portions of the skull base demonstrate no abnormalities. Orbits and globes are within norm al limits. No soft tissue masses. Moderate mucous retention cyst in the LEFT maxillary sinus. Lung apices are clear. CT/CT neck wo con [id number] IMPRESSION: 1. Study is limited by lack of IV contrast and motion. 2. No significant compromise of the airway. There is asymmetry of the nasophar ynx which is probably related to body habitus and positioning. No adenopathy id entified.
--- NOTE | 2019-11-21 13:07 | XRR_ITS ---
PROCEDURE INFORMATION: Exam: XR Chest, 1 View Exam date and time: 11/21/2019 1:37 PM Age: 49 years old Clinical indication: Cough; Additional info: Cough/congestion x 2 days TECHNIQUE: Imaging protocol: XR of the chest Views: 1 view. COMPARISON: CR XR chest 1V portable [id number] 10/15/2019 11:35 AM FINDINGS: Lungs: Hypoinflation with asymmetric elevation of the right hemidiaphragm and mild interstitial prominence. No acute infiltrate. Pleural space: No pleural effusion. Heart/Mediastinum: Borderline cardiomegaly and prominent epicardial fat. Bones/joints: Degenerative change. When correlating with the previous study, no significant interval changes are present. XR/XR chest 1V portable [id number] IMPRESSION: Stable appearance of the chest, not significantly changed from 10/15/19.
--- NOTE | 2019-11-21 13:08 | ED_ITS ---
HPI - SOB/Dyspnea General: Chief Complaint: Shortness of Breath/Dyspnea Stated Complaint: SHORT OF BREATH / POSS ALLERGIC REACTION Time Seen by Provider: 11/21/19 12:59 Source: patient Mode of arrival: EMS Limitations: no limitations History of Present Illness: HPI Narrative: Patient is a 49-year-old male with a history of morbid obesity (BMI >100), diabetes, hypertension, hyperlipidemia, CHF, obstructive sleep apnea, and COPD here for a complaint of muffled voice, difficulty talking, increased shortness of breath. He states he had a friend tell him today that he was difficult to understand when he was speaking. Speech is not slurred. Patient states he normally wears 2-3L O2 continuously but if he gets up and does anything he has to increase this to 3-4L. He has not had to increase this. Patient states that the difficulty breathing and swallowing seems to be better lying down. Patient is still able to eat and drink. He has noticed an increase in the amount and thickness of phlegm. MD elicited complaint: shortness of breath Pertinent past history: COPD, congestive heart failure and diabetes Onset (ago): day(s) (x3 days) Timing: constant Relieving factors: other (lying flat) Associated symptoms: Deny abdominal pain, chest congestion, chest pain, fever(s), hemoptysis, nausea or vomiting Review of Systems Const: Denies: fever(s), chills, body aches, fatigue or malaise Eyes: Denies: change in vision, blurry vision, photophobia, eye discomfort or eye discharge ENMT: Denies: throat pain, enlarged tonsils, odynophagia, swelling of lips/tongue, oral sores, ear or mastoid pain, ear discharge, nasal discharge, nasal congestion, post nasal drip or sinus pain Card: Denies: chest pain Resp: Reports: dyspnea; Denies: hemoptysis or chest congestion GI: Denies: abdominal pain, nausea or vomiting Musc: Denies: neck pain or back pain Skin/Breast: Denies: rash Neuro: Denies: headache(s), numbness in extremities, weakness in extremities or sensory changes All/Imm: Denies: facial swelling or seasonal rhinorrhea PFS ED PFSH: Medical History (Updated 11/21/19 @ 16:07 by AMGDA Chirinos) Diabetes Gout Hyperlipemia, mixed Hypertension Morbid (severe) obesity due to excess calories OPAL (obstructive sleep apnea) Surgical History History of adenoidectomy History of hernia repair History of tonsillectomy History of umbilical hernia repair Family History Mother Hypertension CAD (coronary artery disease) Stroke Social History Smoking and tobacco status: never smoked Second hand smoke exposure: Yes Alcohol intake: never Lives independently: Yes Household members: friend(s) Physical Exam Const: COMMON NORMALS: no acute distress, patient oriented x3 and alert NUTRITIONAL APPEARANCE: obese morbidly obese (BMI is greater than 100) ORIENTATION/CONSCIOUSNESS: Yes oriented to person, Yes oriented to place and Yes oriented to time HENMT: COMMON NORMALS: normocephalic, atraumatic, external ears normal, EAC's normal, TM's normal bilaterally, Normal external nose present and Normal nasal mucous membranes and turbinates present HEAD & SCALP: normal to inspection, normocephalic and atraumatic FACE & SINUS: normal facial exam and sinuses nontender NOSE: Normal external nose present and Normal nasal mucous membranes and turbinates present EXTERNAL EAR: Yes external ears normal EXTERNAL AUDITORY CANAL: EAC's normal TYMPANIC MEMBRANE: TM's normal bilaterally MOUTH: lip normal, tongue normal and other (mild amount of thick white sputum present ) THROAT: tonsils normal and uvula midline Eye: COMMON NORMALS: Equal, round and reactive pupils present, EOMs intact bilaterally, conjunctivae normal and no scleral icterus CONJUNCTIVA: Yes conjunctivae normal PUPIL: Yes Equal, round and reactive pupils present Neck/C-Spine: COMMON NORMALS: full ROM and no meningeal signs OTHER: palpation of normal anatomy is inhibited due to patient's morbid obesity Chest: COMMONS NORMALS: normal inspection of the chest and normal palpation of entire chest wall Resp: COMMON NORMALS: normal respiratory effort and clear to auscultation bilaterally AUSCULTATION: clear to auscultation bilaterally Cardio: COMMON NORMALS: regular rate and regular rhythm RATE: regular rate RHYTHM: regular rhythm Neuro: ENRRIQUE COMA SCALE: document GCS findings [place] coma scale eye open ing: Spontaneous Enrrique coma scale verbal response: Orientated Enrrique coma scale motor response: Obey commands Enrrique coma scale total score: 15 COMMON NORMALS: patient oriented x3, CN's II-XII intact bilaterally, moves all extremities, no focal motor deficits and no sensory deficits noted SENSORIUM/ORIENTATION: Yes alert, Yes oriented to person, Yes oriented to place and Yes oriented to time MENINGEAL SIGNS: Yes no meningeal signs Skin: OTHER: does have several small scabbed/excoriated sores to bilateral forearms Course ED course: Patient adamantly refuses contrast for the CT scan stating he doesn't like the way it makes him feel. I explained to patient at length the need for this and the risks of missing certain things w/o it. I offerred patient medications to help with unwanted adverse reactions (benadryl, steroids, ativan, etc) but he still refuses. I told patient there is a possibility of missing something that could potentially be life threatening and he verbalized understading and risk and wishes to proceed w/o contrast. Vital Signs: Vital signs: Vital Signs Temperature 98.5 F 11/21/19 12:57 Pulse Rate 63 11/21/19 16:20 Respiratory Rate 16 11/21/19 16:20 Blood Pressure 127/71 11/21/19 16:20 Pulse Oximetry 97 11/21/19 16:20 MDM - SOB/Dyspnea MDM Narrative: Medical decision making narrative: Patient CT scan of his neck is essentially normal accounting for the lack of contrast. His CXR shows chronic pulmonary congestion and cardiomegaly but these appear stable/no changes from previous films. Patient was noted to be hypokalemic at 2.9. He was given IV replacement for this. He was encouraged to continue his Klor-Con at home (we will have him increase this to 40 meq daily). Patient's BNP is elevated when compared to his baseline however patient is not complaining of worsening orthopnea or PND. Again he has not had to increase his O2. Patient still is taking Lasix daily. I don't want to further diurese him here or at home given his hypokalemia. Patient was offered admission into the hospital however he refuses and would like to go home. He did tell me he feels better now that he has rested in the ED. I think his speech is a combination of extremely poor dentition (essentially he is edentulous), a baseline lisp, and his morbid obesity. I discussed with patient that it is imperative that he follow-up with PCP early next week for repeat evaluation and repeat labs. Patient verbalizes understanding. He states he will return to the emergency department for worsening symptoms. Lab Data: Labs: Lab Results 11/21/19 11/21/19 11/21/19 Range/Units 12:30 12:30 12:30 WBC 6.3 (4.0-10.0) 10^3/ uL RBC 4.71 (4.1-5.3) 10^6/u L Hgb 11.2 L (11.7-16.6) g/dL Hct 40.2 L (42.0-52.0) % MCV 85.4 (80-94) fL MCH 23.8 L (28.0-34.0) pg MCHC 27.9 L (30.0-36.0) g/dL RDW 16.4 H (12.1-15.1) % Plt Count 267 (130-400) 10^3/c mm MPV 10.1 (7.4-10.4) fL Neut % (Auto) 69.1 % Lymph % (Auto) 21.4 % Jackson % (Auto) 8.5 % Eos % (Auto) 0.3 % Baso % (Auto) 0.5 % Neut # (Auto) 4.4 (1.8-7.7) 10^3/u L Lymph # (Auto) 1.4 (0.8-4.8) 10^3/u L Jackson # (Auto) 0.5 (0.2-0.9) 10^3/u L Eos # (Auto) 0.0 (0.0-0.8) 10^3/u L Baso # (Auto) 0.0 (0.0-0.1) 10^3/u L Nucleated RBC % (a uto) 0 % Nucleated RBCs # 0.0 /100WBC Sodium 141 (136-145) mmol/L Potassium 2.9 L (3.5-5.1) mmol/L Chloride 94 L (98-107) mmol/L Carbon Dioxide 32 H (22-29) mmol/L Anion Gap 17.9 (5-19) BUN 12 (6-20) mg/dL Creatinine 1.3 H (0.7-1.2) mg/dL GFR Calculation 59.2 L (90-130) mL/min Glucose 135 H (65-115) mg/dL Calculated Osmolal ity 290 (285-295) mOsm/k g Calcium 9.7 (8.5-10.5) mg/dL Magnesium 2.1 (1.7-2.3) mg/dL Total Bilirubin 1.3 H (0.15-1.2) mg/dL AST 16 (0-40) U/L ALT 12 (0-41) U/L Alkaline Phosphata se 238 H (40-130) IU/L NT-Pro-B Natriuret Pep (0-125) pg/mL Total Protein 7.9 (6.6-8.7) g/dL Albumin 3.7 (3.5-5.2) g/dL Globulin 4.2 (1.3-4.6) g/dL / Range/Units 12:30 WBC (4.0-10.0) 10^3/ uL RBC (4.1-5.3) 10^6/u L Hgb (11.7-16.6) g/dL Hct (42.0-52.0) % MCV (80-94) fL MCH (28.0-34.0) pg MCHC (30.0-36.0) g/dL RDW (12.1-15.1) % Plt Count (130-400) 10^3/c mm MPV (7.4-10.4) fL Neut % (Auto) % Lymph % (Auto) % Jackson % (Auto) % Eos % (Auto) % Baso % (Auto) % Neut # (Auto) (1.8-7.7) 10^3/u L Lymph # (Auto) (0.8-4.8) 10^3/u L Jackson # (Auto) (0.2-0.9) 10^3/u L Eos # (Auto) (0.0-0.8) 10^3/u L Baso # (Auto) (0.0-0.1) 10^3/u L Nucleated RBC % (a uto) % Nucleated RBCs # /100WBC Sodium (136-145) mmol/L Potassium (3.5-5.1) mmol/L Chloride (98-107) mmol/L Carbon Dioxide (22-29) mmol/L Anion Gap (5-19) BUN (6-20) mg/dL Creatinine (0.7-1.2) mg/dL GFR Calculation (90-130) mL/min Glucose (65-115) mg/dL Calculated Osmolal ity (285-295) mOsm/k g Calcium (8.5-10.5) mg/dL Magnesium (1.7-2.3) mg/dL Total Bilirubin (0.15-1.2) mg/dL AST (0-40) U/L ALT (0-41) U/L Alkaline Phosphata se (40-130) IU/L NT-Pro-B Natriuret Pep 3444 H (0-125) pg/mL Total Protein (6.6-8.7) g/dL Albumin (3.5-5.2) g/dL Globulin (1.3-4.6) g/dL Imaging Data^: CXR: Radiologist's impression: [address] [address] XRay Report Signed Patient: Arnol Guzman Unit #: [id number] : 1970 Age/Sex: 49 / M ADM Date: 11/21/19 Loc: ER Room/Bed: Attending Dr: Ordering Provider/Ordering MD: Malena Carranza Date of Service: 11/21/19 Procedure(s): XR chest 1V portable [id number] Accession Number(s): [id number] Report Number: [id number] PROCEDURE INFORMATION: Exam: XR Chest, 1 View Exam date and time: 11/21/2019 1:37 PM Age: 49 years old Clinical indication: Cough; Additional info: Cough/congestion x 2 days TECHNIQUE: Imaging protocol: XR of the chest Views: 1 view. COMPARISON: CR XR chest 1V portable [id number] 10/15/2019 11:35 AM FINDINGS: Lungs: Hypoinflation with asymmetric elevation of the right hemidiaphragm and mild interstitial prominence. No acute infiltrate. Pleural space: No pleural effusion. Heart/Mediastinum: Borderline cardiomegaly and prominent epicardial fat. Bones/joints: Degenerative change. When correlating with the previous study, no significant interval changes are present. XR/XR chest 1V portable [id number] IMPRESSION: Stable appearance of the chest, not significantly changed from 10/15/19. Dictated By: Saeid Herrera MD Signed By: Saeid Herrera MD Signed Date/Time: 11/21/19 1420 DD/ 1418 CT neck: Radiologist's impression: [address] [address] [address] Scan Report Signed Patient: Arnol Guzman Unit #: [id number] : 1970 Age/Sex: 49 / M ADM Date: 11/21/19 Loc: ER Room/Bed: Attending Dr: Ordering Provider/Ordering MD: Malena Carranza Date of Service: 11/21/19 Procedure(s): CT neck wo con [id number] Accession Number(s): [id number] Report Number: [id number] WS: [id number] CT NECK WITHOUT CONTRAST. HISTORY: difficulty talking/slurred/muffled voice; trouble breathing TECHNIQUE: Contiguous 5 mm axial images are performed through the neck without intravenous contrast. Sagittal and coronal reformats are also submitted. All CT scans at [facility] use at least one of these dose optimization techniques: automated exposure control; mA and/or kV adjustment per patient size (includes targeted exams where dose is matched to clinical indication); or iterative reconstruction. CONTRAST: CONTRAST: None DLP: 1102.57 mGy.cm COMPARISON: None. Patient refused IV contrast. Study is significantly limited by body habitus and motion. Mild asymmetry of the nasopharynx but this is probably due to patient's body habitus and supine position. No discrete mass. Hypopharynx is normal. True and false vocal cords are negative. Torus tubarius and fossa of Rosenmuller and parapharyngeal fat are normal. Small cervical chain lymph nodes. Small lymph nodes in the parotid glands. Negative appearance of the salivary glands on this unenhanced study. Straightening of the normal cervical lordosis. Fusion at the C2-3 disc space. Visualized portions of the skull base demonstrate no abnormalities. Orbits and globes are within normal limits. No soft tissue masses. Moderate mucous retention cyst in the LEFT maxillary sinus. Lung apices are clear. CT/CT neck wo con [id number] IMPRESSION: 1. Study is limited by lack of IV contrast and motion. 2. No significant compromise of the airway. There is asymmetry of the nasopharynx which is probably related to body habitus and positioning. No adenopathy identified. Dictated By: Aarti Perez DO Signed By: Aarti Perez DO Signed Date/Time: 11/21/19 153 DD/ 1526 Discharge Plan Discharge Patient Disposition: Home, Self-Care Clinical Impression: Acute hypokalemia, Morbid obesity with body mass index (BMI) greater than or equal to 70 in adult Congestive heart failure Qualifiers: Heart failure type: unspecified Heart failure chronicity: chronic Qualified Code(s): I50.9 - Heart failure, unspecified Condition: Stable Prescriptions: No Action Dulera 200-5 mcg/actuation HFA aerosol inhaler 2 puff INHALATION BID RF: 0 glipizide 10 mg tablet 10 mg PO BID RF: 0 potassium chloride [Klor-Con M20] 20 mEq tablet,ER particles/crystals 20 meq PO DAILY Qty: 30 RF: 3 atorvastatin [Lipitor] 80 mg Tablet 80 mg PO DAILY RF: 0 atenolol 100 mg Tablet 100 mg PO DAILY RF: 0 omeprazole 40 mg Capsule,Delayed Release(Dr/Ec) 40 mg PO DAILY RF: 0 aspirin [Aspir-81] 81 mg Tablet,Delayed Release (Dr/Ec) 81 mg PO DAILY RF: 0 montelukast [Singulair] 10 mg Tablet 10 mg PO DAILY RF: 0 allopurinol 300 mg Tablet 300 mg PO DAILY RF: 0 albuterol sulfate [ProAir HFA] 90 mcg/actuation HFA aerosol inhaler 2 - 4 puff INHALATION QID PRN (Reason: Shortness Of Breath) RF: 0 metformin 500 mg Tablet Extended Release 24 Hr 1,000 mg PO QAM RF: 0 loratadine 10 mg Tablet 10 mg PO DAILY RF: 0 lisinopril 20 mg Tablet 20 mg PO DAILY 30 Days Qty: 30 RF: 1 Tresiba FlexTouch U-200 200 unit/mL (3 mL) insulin pen 20 unit SUBCUT DAILY RF: 0 furosemide 40 mg tablet 60 mg PO DAILY Qty: 6 RF: 0 Referrals: Stewart Rosario MD [Primary Care Provider] - Discharge Diet: Usual diet Discharge Activity: Increase activity as tolerated Activity Restrictions/Additional Instructions: I want you to start taking two tabs of the 20meq potassium daily for the next 5 days. As discussed it is imperative that you follow-up with your primary care provider or talent acquisition sourcer early next week for reevaluation and repeat labs. Return to the emergency department over the weekend for any worsening symptoms or concerns you may have. Discharge Date/Time: 11/21/19 16:55 Coding Level of Care Code ED General Surgeon for Chg Fwd Exam Comprehensive
[2019-11-21 13:17] LABS: Basophils % 0.5 %; Eosinophils % 0.3 %; Hematocrit 40.2 % (42.0-52.0); Hemoglobin 11.2 g/dL (11.7-16.6); Lymphocytes # 1.4 10^3/uL (0.8-4.8); Lymphocytes % 21.4 %; Mean Corpuscular HGB Conc 27.9 g/dL (30.0-36.0); Mean Corpuscular Hemoglobin 23.8 pg (28.0-34.0); Mean Corpuscular Volume 85.4 fL (80-94); Mean Platelet Volume 10.1 fL (7.4-10.4); Monocytes # 0.5 10^3/uL (0.2-0.9); Monocytes % 8.5 %; Neutrophils # 4.4 10^3/uL (1.8-7.7); Neutrophils % 69.1 %; Nucleated Red Blood Cells % 0 %; Platelet Count 267 10^3/cmm (130-400); Red Blood Count 4.71 10^6/uL (4.1-5.3); Red Cell Distribution Width 16.4 % (12.1-15.1); White Blood Count 6.3 10^3/uL (4.0-10.0)
[2019-11-21 13:27] LABS: Alanine Aminotransferase 12 U/L (0-41); Albumin Level 3.7 g/dL (3.5-5.2); Alkaline Phosphatase 238 IU/L (40-130); Anion Gap 17.9 (5-19); Aspartate Amino Transferase 16 U/L (0-40); Blood Urea Nitrogen 12 mg/dL (6-20); Calcium 9.7 mg/dL (8.5-10.5); Carbon Dioxide 32 mmol/L (22-29); Chloride 94 mmol/L (98-107); Globulin 4.2 g/dL (1.3-4.6); Glomerular Filtration Rate 59.2 mL/min (90-130); Glucose 135 mg/dL (65-115); Osmolality Calculated 290 mOsm/kg (285-295); Sodium 141 mmol/L (136-145); Total Bilirubin 1.3 mg/dL (0.15-1.2); Total Protein 7.9 g/dL (6.6-8.7)
[2019-11-21 13:57] LABS: Potassium 2.9 mmol/L (3.5-5.1)
--- NOTE | 2019-11-21 14:08 | ECG_ITS ---
Measurements Intervals [place] Rate: 61 P: 79 HI: 195 QRS: 58 QRSD: 108 T: 87 QT: 449 QTc: 455 SINUS RHYTHM INCOMPLETE RIGHT BUNDLE BRANCH BLOCK [90+ ms QRS DURATION, TERMINAL R IN V1/V2, 40+ ms S IN I/aVL/V4/V5/V6] NONSPECIFIC ST & T-WAVE ABNORMALITY Compared to ECG 10/15/2019 11:25:28 T-wave abnormality now present Myocardial infarct finding no longer present Electronically Signed On 11-22-2019 16:28:52 CDT by Crys Diggs M.D. [email or web address]
[2019-11-21 14:19] LABS: Magnesium 2.1 mg/dL (1.7-2.3)
[2019-11-21 14:34] VITALS: BP 129/71; PULSE 65; RESP 16; O2SAT 97
[2019-11-21] MEDS: dexamethasone 4 mg/mL INJ 8 MG IVP (14:37)
[2019-11-21 14:57] LABS: NT Pro B Type Natriuretic Pept 3444 pg/mL (0-125)
[2019-11-21 15:22] VITALS: BP 131/64; PULSE 63; RESP 14; O2SAT 97
[2019-11-21 16:20] VITALS: BP 127/71; PULSE 63; RESP 16; O2SAT 97
== END 2019-11-21 16:55 | disposition home or self-care (01) ==
PROVIDERS: Emergency Provider Physician Assistant; PCP Family Medicine
DX: I11.0 Hypertensive heart disease with heart failure (principal); I50.9 Heart failure, unspecified; E87.6 Hypokalemia; E66.01 Morbid (severe) obesity due to excess calories; Z68.45 Body mass index [BMI] 70 or greater, adult; Z79.82 Long term (current) use of aspirin; Z79.4 Long term (current) use of insulin; E11.9 Type 2 diabetes mellitus without complications; E78.2 Mixed hyperlipidemia
CPT/HCPCS: 12345; 36415; 70490; 71045; 80053; 83735; 83880; 85025; 87040; 87205; 93005; 96365; 96366; 96375; 99283; 99284; J1100; J3480

== ENCOUNTER 2019-11-25 06:33 | Emergency (ER) | payer MEDICAID, SELFPAY ==
[2019-11-25 06:34] VITALS: BP 163/72; PULSE 80; RESP 24; TEMP 36.7; O2SAT 87; BMI 66.0
--- NOTE | 2019-11-25 06:41 | CTR_ITS ---
PROCEDURE INFORMATION: Exam: CT Head Without Contrast Exam date and time: 11/25/2019 6:42 AM Age: 49 years old Clinical indication: Pain; Weakness, facial; Patient HX: Left arm weakness and left sided facial droop. C/O left sided headache; Additional info: Possible CVA TECHNIQUE: Imaging protocol: Computed tomography of the head without contrast. Radiation optimization: All CT scans at this facility use at least one of these dose optimization techniques: automated exposure control; mA and/or kV adjustment per patient size (includes targeted exams where dose is matched to clinical indication); or iterative reconstruction. Other technique: STROKE PROTOCOL was implemented. COMPARISON: CT head wo con* [id number] 08/30/2014 3:56 PM RADIATION DOSE METRICS: Total DLP: 1275.01 mGy-cm FINDINGS: Brain: Mehta white matter distinction is maintained throughout the brain. No radiographic evidence of intracranial hemorrhage. No CT evidence of mass hemorrhage or acute infarction. Ventricles: Ventricles are of normal size and configuration. Bones/joints: Unremarkable. No acute fracture. Sinuses: Visualized sinuses are unremarkable. No fluid levels. Mastoid air cells: Visualized mastoid air cells are well aerated. Soft tissues: Unremarkable. Other findings: No intra or extra-axial masses, lesions or collections. CT/CT head wo con* [id number] IMPRESSION: No acute intracranial process is appreciated. ASSESSMENT: ASPECTS ([place] Stroke Program Early CT Score) is 10. Radiation Dose CTDIVOL = (mGy): DLP = 1275.01 (mGy-cm)
--- NOTE | 2019-11-25 06:48 | ECG_ITS ---
Measurements Intervals [place] Rate: 70 P: 74 WI: 193 QRS: 56 QRSD: 114 T: 89 QT: 419 QTc: 455 SINUS RHYTHM INCOMPLETE RIGHT BUNDLE BRANCH BLOCK [90+ ms QRS DURATION, TERMINAL R IN V1/V2, 40+ ms S IN I/aVL/V4/V5/V6] NONSPECIFIC T-WAVE ABNORMALITY Compared to ECG 11/21/2019 15:43:58 No significant changes Electronically Signed On 11-25-2019 20:49:18 CDT by Tay Mireles M.D. [email or web address]
[2019-11-25 06:57] LABS: Basophils % 0.6 %; Eosinophils % 0.6 %; Hematocrit 38.5 % (42.0-52.0); Hemoglobin 10.9 g/dL (11.7-16.6); Lymphocytes # 1.1 10^3/uL (0.8-4.8); Lymphocytes % 21.5 %; Mean Corpuscular HGB Conc 28.3 g/dL (30.0-36.0); Mean Corpuscular Hemoglobin 24.1 pg (28.0-34.0); Monocytes # 0.4 10^3/uL (0.2-0.9); Monocytes % 7.3 %; Neutrophils # 3.4 10^3/uL (1.8-7.7); Neutrophils % 69.6 %; Nucleated Red Blood Cells % 0 %; Platelet Count 229 10^3/cmm (130-400); Red Blood Count 4.53 10^6/uL (4.1-5.3); White Blood Count 4.9 10^3/uL (4.0-10.0)
--- NOTE | 2019-11-25 07:00 | ED_ITS ---
HPI - Neuro Symptoms/Deficit General: Chief Complaint: Neuro Symptoms/Deficit Stated Complaint: Poss Stroke Time Seen by Provider: 11/25/19 06:48 History of Present Illness: HPI Narrative: 49-year-old male comes in complaining left-sided numbness is been intermittent for the last several months. States usually wakes up for with it and gets better over time his speech is a little garbled and slurred but he states he is actually talking relatively normal for him. Difference today was he had some left-sided facial involvement when he first woke up that is already improved as well he essentially feels back to normal. He denies any chest pain difficulty breathing or swallowing no abdominal pain no fever sweats or chills no dysuria urgency or frequency no hematochezia melena hematemesis cough (not otherwise been ill recently is not been around anyone is been ill.. He denies any vomiting or diarrhea. Onset (ago): month(s) Quality: numb Relieving factors: time Exacerbating factors: other (Wakes up with symptoms daily for months) On Anticoagulants: Yes (Aspirin) Associated symptoms: Deny chest pain, cough, diaphoresis, fevers/chills, headache(s), anorexia, malaise, nausea, seizures, short of breath, syncope, vertigo, vomiting or weakness Treatments Prior to Arrival: Aspirin Review of Systems Const: Denies: malaise or diaphoresis ENMT: Denies: throat pain, ear or mastoid pain, nasal discharge or nasal congestion Card: Denies: chest pain or syncope Resp: Denies: dyspnea, productive cough or non-productive cough GI: Denies: nausea or vomiting : Denies: flank pain, dysuria, urinary frequency or urinary urgency Skin/Breast: Denies: rash or pruritus Neuro: Denies: headache(s) or vertigo PFS ED PFSH: Medical History Diabetes Gout Hyperlipemia, mixed Hypertension Morbid (severe) obesity due to excess calories OPAL (obstructive sleep apnea) Surgical History History of adenoidectomy History of hernia repair History of tonsillectomy History of umbilical hernia repair Family History Mother Hypertension CAD (coronary artery disease) Stroke Social History Smoking and tobacco status: never smoked Second hand smoke exposure: Yes Alcohol intake: never Lives independently: Yes Household members: friend(s) NIH stroke score NIHSS: Level Of Consciousness - 1a: 0 Level Of Consciousness Questions - 1b: Both Correct Level Of Consciousness Commands - 1c: Both Correct Best Gaze - 2: Normal Visual Yanes - 3: No Visual Loss Facial Palsy - 4: Nor mal Motor Arm Right - 5: No Drift Motor Arm Left - 5: No Drift Motor Leg Right - 6: No Drift Motor Leg Left - 6: No Drift Limb Ataxia - 7: Absent Sensory - 8: Normal Best Language - 9: No Aphasia Dysarthia - 10: Mild/Moderate Dysarthia (According to the patient he is speaking normally for him. He has some garbled speech generally having a difficult time actually understanding him. Not sure how much of this though is not his baseline.) Extinction And Inattention - 11: 0 Score: Total Score: 1 Physical Exam Const: COMMON NORMALS: no acute distress GENERAL APPEARANCE: cooperative and comfortable ORIENTATION/CONSCIOUSNESS: Yes awake, Yes oriented to person, Yes oriented to place and Yes oriented to time HENMT: COMMON NORMALS: normocephalic, atraumatic, hearing grossly normal bilaterally, external ears normal, Normal nasal mucous membranes and turbinates present, moist oral mucous membranes and oropharynx normal HEAD & SCALP: normocephalic and atraumatic NOSE: Normal nasal mucous membranes and turbinates present EXTERNAL EAR: Yes external ears normal Eye: COMMON NORMALS: Equal, round and reactive pupils present, EOMs intact bilaterally, conjunctivae normal and no scleral icterus CONJUNCTIVA: Yes conjunctivae normal PUPIL: Yes Equal, round and reactive pupils present Neck/C-Spine: COMMON NORMALS: full ROM, no lymphadenopathy, supple and no JVD Lymph: LYMPHATIC: no lymphadenopathy noted and no lymphedema noted Resp: COMMON NORMALS: normal respiratory effort, No retractions, No use of accessory muscles and clear to auscultation bilaterally AUSCULTATION: clear to auscultation bilaterally Cardio: COMMON NORMALS: no JVD, regular rate, regular rhythm and No murmurs present (Cardio) RATE: regular rate RHYTHM: regular rhythm GI: COMMON NORMALS: Soft to palpation and No hepatosplenomegaly present AUSCULTATION: Yes normoactive bowel sounds PALPATION: Yes Soft to palpation, No Tenderness to palpation present (GI), No Guarding due to palpation present (GI) and Yes No hepatosplenomegaly present Extremity: COMMON NORMALS: normal to inspection, capillary refill normal, no clubbing, cyanosis or edema, no calf tenderness and no pedal edema Neuro: SENSORIUM/ORIENTATION: Yes oriented to person, Yes oriented to place and Yes oriented to time Skin: COMMON NORMALS: no rashes or lesions noted GENERAL SKIN EXAM: no rashes or lesions noted Course Vital Signs: Vital signs: Vital Signs Temperature 98.0 F 11/25/19 06:34 Pulse Rate 71 11/25/19 09:23 Respiratory Rate 16 11/25/19 09:23 Blood Pressure 140/70 11/25/19 09:23 Pulse Oximetry 98 11/25/19 09:23 MDM - Neuro Symptoms/Deficit MDM Narrative: Medical decision making narrative: Recommended potassium supplementation was going to further imaging patient decided he felt better and wanted to leave it discussed with him he was adamant in this position he did not want to go any further testing discussed with him I do not believe he had a stroke his facial symptoms and extremity symptoms are on the same side. He expresses understanding of this I do recommend he continues take aspirin daily follow-up with his primary care doctor gave him potassium supplement he should have his potassium rechecked in 2 days. Lab Data: Labs: Lab Results 11/25/19 11/25/19 11/25/19 Range/Units 06:45 06:45 06:45 WBC 4.9 (4.0-10.0) 10^3/ uL RBC 4.53 (4.1-5.3) 10^6/u L Hgb 10.9 L (11.7-16.6) g/dL Hct 38.5 L (42.0-52.0) % MCV 85.0 (80-94) fL MCH 24.1 L (28.0-34.0) pg MCHC 28.3 L (30.0-36.0) g/dL RDW 16.0 H (12.1-15.1) % Plt Count 229 (130-400) 10^3/c mm MPV 10.0 (7.4-10.4) fL Neut % (Auto) 69.6 % Lymph % (Auto) 21.5 % Grayson % (Auto) 7.3 % Eos % (Auto) 0.6 % Baso % (Auto) 0.6 % Neut # (Auto) 3.4 (1.8-7.7) 10^3/u L Lymph # (Auto) 1.1 (0.8-4.8) 10^3/u L Grayson # (Auto) 0.4 (0.2-0.9) 10^3/u L Eos # (Auto) 0.0 (0.0-0.8) 10^3/u L Baso # (Auto) 0.0 (0.0-0.1) 10^3/u L Nucleated RBC % (a uto) 0 % Nucleated RBCs # 0.0 /100WBC PT 14.90 H (10.5-13.3) SECO NDS INR 1.13 (0.8-1.2) APTT 36.0 (23.9-36.7) SECO NDS Sodium 141 (136-145) mmol/L Potassium 2.8 L* (3.5-5.1) mmol/L Chloride 93 L (98-107) mmol/L Carbon Dioxide 38 H (22-29) mmol/L Anion Gap 12.8 (5-19) BUN 16 (6-20) mg/dL Creatinine 1.0 (0.7-1.2) mg/dL GFR Calculation 80.1 L (90-130) mL/min Glucose 135 H (65-115) mg/dL POC Glucose (70-110) mg/dL Calculated Osmolal ity 290 (285-295) mOsm/k g Calcium 9.6 (8.5-10.5) mg/dL Total Bilirubin 1.0 (0.15-1.2) mg/dL AST 19 (0-40) U/L ALT 14 (0-41) U/L Alkaline Phosphata se 217 H (40-130) IU/L Total Protein 7.5 (6.6-8.7) g/dL Albumin 3.6 (3.5-5.2) g/dL Globulin 3.9 (1.3-4.6) g/dL 11/25/19 Range/Units 07:07 WBC (4.0-10.0) 10^3/ uL RBC (4.1-5.3) 10^6/u L Hgb (11.7-16.6) g/dL Hct (42.0-52.0) % MCV (80-94) fL MCH (28.0-34.0) pg MCHC (30.0-36.0) g/dL RDW (12.1-15.1) % Plt Count (130-400) 10^3/c mm MPV (7.4-10.4) fL Neut % (Auto) % Lymph % (Auto) % Grayson % (Auto) % Eos % (Auto) % Baso % (Auto) % Neut # (Auto) (1.8-7.7) 10^3/u L Lymph # (Auto) (0.8-4.8) 10^3/u L Grayson # (Auto) (0.2-0.9) 10^3/u L Eos # (Auto) (0.0-0.8) 10^3/u L Baso # (Auto) (0.0-0.1) 10^3/u L Nucleated RBC % (a uto) % Nucleated RBCs # /100WBC PT (10.5-13.3) SECO NDS INR (0.8-1.2) APTT (23.9-36.7) SECO NDS Sodium (136-145) mmol/L Potassium (3.5-5.1) mmol/L Chloride (98-107) mmol/L Carbon Dioxide (22-29) mmol/L Anion Gap (5-19) BUN (6-20) mg/dL Creatinine (0.7-1.2) mg/dL GFR Calculation (90-130) mL/min Glucose (65-115) mg/dL POC Glucose 121 (70-110) mg/dL Calculated Osmolal ity (285-295) mOsm/k g Calcium (8.5-10.5) mg/dL Total Bilirubin (0.15-1.2) mg/dL AST (0-40) U/L ALT (0-41) U/L Alkaline Phosphata se (40-130) IU/L Total Protein (6.6-8.7) g/dL Albumin (3.5-5.2) g/dL Globulin (1.3-4.6) g/dL Discharge Plan Discharge Patient Disposition: Left Against Medical Advice Clinical Impression: Acute hypokalemia, Morbid (severe) obesity due to excess calories, Radiculopathy affecting upper extremity Condition: Stable Prescriptions: New potassium chloride 20 mEq tablet extended release 20 meq PO TID Qty: 15 RF: 0 No Action Dulera 200-5 mcg/actuation HFA aerosol inhaler 2 puff INHALATION BID RF: 0 glipizide 10 mg tablet 10 mg PO BID RF: 0 potassium chloride [Klor-Con M20] 20 mEq tablet,ER particles/crystals 20 meq PO DAILY Qty: 30 RF: 3 atorvastatin [Lipitor] 80 mg Tablet 80 mg PO DAILY RF: 0 atenolol 100 mg Tablet 100 mg PO DAILY RF: 0 omeprazole 40 mg Capsule,Delayed Release(Dr/Ec) 40 mg PO DAILY RF: 0 aspirin [Aspir-81] 81 mg Tablet,Delayed Release (Dr/Ec) 81 mg PO DAILY RF: 0 montelukast [Singulair] 10 mg Tablet 10 mg PO DAILY RF: 0 allopurinol 300 mg Tablet 300 mg PO DAILY RF: 0 albuterol sulfate [ProAir HFA] 90 mcg/actuation HFA aerosol inhaler 2 - 4 puff INHALATION QID PRN (Reason: Shortness Of Breath) RF: 0 metformin 500 mg Tablet Extended Release 24 Hr 1,000 mg PO QAM RF: 0 loratadine 10 mg Tablet 10 mg PO DAILY RF: 0 lisinopril 20 mg Tablet 20 mg PO DAILY 30 Days Qty: 30 RF: 1 Tresiba FlexTouch U-200 200 unit/mL (3 mL) insulin pen 20 unit SUBCUT DAILY RF: 0 furosemide 40 mg tablet 60 mg PO DAILY Qty: 6 RF: 0 Discharge Orders: Discharge Order (Routine); Ordered 11/25/19 Ordered By: Fantasma Del Angel Referrals: Stewart Rosario MD [Primary Care Provider] - Discharge Diet: Usual diet Discharge Activity: Increase activity as tolerated Activity Restrictions/Additional Instructions: Since you chose to leave AGAINST MEDICAL ADVICE we are not able to complete your work-up. We did find you were significantly hypokalemic you should have a repeat potassium done by your primary care doctor in the next 3 days. Stand Alone Forms: Against Medical Advice Discharge Date/Time: 11/25/19 09:31 Coding Level of Care Code ED Sap [employer]ico Business Analyst for Chg Fwd Exam Comprehensive
[2019-11-25 07:07] LABS: INR 1.13 (0.8-1.2)
[2019-11-25 07:13] LABS: Alanine Aminotransferase 14 U/L (0-41); Albumin Level 3.6 g/dL (3.5-5.2); Alkaline Phosphatase 217 IU/L (40-130); Anion Gap 12.8 (5-19); Aspartate Amino Transferase 19 U/L (0-40); Blood Urea Nitrogen 16 mg/dL (6-20); Calcium 9.6 mg/dL (8.5-10.5); Carbon Dioxide 38 mmol/L (22-29); Chloride 93 mmol/L (98-107); Globulin 3.9 g/dL (1.3-4.6); Glomerular Filtration Rate 80.1 mL/min (90-130); Glucose 135 mg/dL (65-115); Osmolality Calculated 290 mOsm/kg (285-295); Sodium 141 mmol/L (136-145); Total Protein 7.5 g/dL (6.6-8.7)
[2019-11-25 07:14] VITALS: BP 163/72; PULSE 70; RESP 16; O2SAT 98
[2019-11-25 07:14] LABS: Glucose Point of Care 121 mg/dL (70-110)
[2019-11-25 07:24] LABS: Potassium 2.8 mmol/L (3.5-5.1)
--- NOTE | 2019-11-25 07:45 | CT_ITS ---
WS: [id number] CT CERVICAL SPINE TECHNIQUE: Noncontrast CT of the cervical spine with coronal and sagittal reformatted images. CLINICAL INFORMATION: radiculopathy COMPARISON: None. DLP: 1312.[address] scans at [facility] use at least one of these dose optimization techniques: automat ed exposure control; mA and/or kV adjustment per patient size (includes targeted exams where dose is matched to clinical indication); or iterative reconstruction. FINDINGS: Mild cervical curve convex right. Normal C1-2 articulation. Hypertrophic changes at C1-2. Segmentatio n anomaly at C3-C4 with partial disc space and posterior element fusion. C2-C3: Disc osteophyte complex with moderate left and no significant right foraminal narrowing. Spina l canal is patent. C3-C4: Segmentation anomaly. Moderate left and no significant right foraminal narrowing. Spinal canal is patent. C4-C5: Shallow central disc protrusion. Mild central canal stenosis. Moderate bilateral foraminal juan rowing. C5-C6: Disc osteophyte complex with endplate ridging. Moderate left and mild right bony foraminal juan rowing. Tiny central protrusion. Spinal canal is patent. C6-C7: Tiny central protrusion. Mild to moderate left and no significant right foraminal narrowing. S valeriano canal is patent. C7-T1: No significant disc bulging. Spinal canal and foramen are patent. Small calcified right thyroid nodule. Small nodules in the thyroid bilaterally. CT/CT cervical spin wo con* [id number] IMPRESSION: 1. 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 2. Small central disc osteophyte protrusion C4-C5 with mild central canal sten osis. Small central protrusion C5-C6 with mild central canal stenosis. 3. Multilevel moderate bony foraminal narrowing worse at left C2-3, left C3-4, left C5-C6, and left C6-C7. 4. Prominent anterior hypertrophic changes at C4-C6. Prominent posterior protr uding osteophyte at C2. 5. No acute fractures. 6. Small nodules in the thyroid bilaterally.
[2019-11-25] MEDS: potassium chloride oral liq 20 mEq/15 mL UDC 60 MEQ PO (07:49)
[2019-11-25] MEDS: potassium chloride premix 40 MEQ/100 ML PREMIX 25 MEQ IV (07:58)
--- NOTE | 2019-11-25 08:02 | PC.NURSE ---
When nurse tried to administer PO K, pt drank about half of the order and stated he couldn't drink the rest. Pt stated it was going to make him sick and he wouldn't drink it. Dr. Del Angel informed.
[2019-11-25 09:23] VITALS: BP 140/70; PULSE 71; RESP 16; O2SAT 98
== END 2019-11-25 09:31 | disposition left against medical advice (07) ==
PROVIDERS: Emergency Provider Family Medicine; PCP Family Medicine
DX: M54.10 Radiculopathy, site unspecified (principal); E87.6 Hypokalemia; E66.01 Morbid (severe) obesity due to excess calories; Z79.82 Long term (current) use of aspirin; Z79.4 Long term (current) use of insulin; Z53.21 Procedure and treatment not carried out due to patient leaving prior to being seen by health care provider; E11.9 Type 2 diabetes mellitus without complications; E78.5 Hyperlipidemia, unspecified; I10 Essential (primary) hypertension
CPT/HCPCS: 12345; 36416; 70450; 72125; 80053; 82962; 85025; 85610; 85730; 93005; 96365; 96366; 99283; 99284; J3480

== ENCOUNTER 2019-12-01 10:31 | Inpatient (IN) | payer MEDICAID, SELFPAY ==
[2019-12-01] VITALS (48 sets, daily range): BP systolic 81–128; BP diastolic 42–74; PULSE 63–96; RESP 7–29; TEMP 36.9–38.2; O2SAT 85–100; BMI 66.1
--- NOTE | 2019-12-01 10:36 | XR_ITS ---
WS: [id number] PORTABLE CHEST HISTORY: fever COMPARISON: 11/21/2019 New area of consolidation throughout the LEFT lung. Increased consolidation predominantly in the uppe r LEFT peripheral lung field. Coarsened interstitial thickening more focal consolidation laterally. N o pleural effusion or pneumothorax. Cardiac size: Mildly enlarged cardiac silhouette. Mediastinum/Aorta: Normal mediastinum. No osseous abnormality seen. XR/XR chest 1V portable [id number] IMPRESSION: 1. New LEFT lung pneumonia, involving the LEFT upper lobe.. Additional pneumon itis suspected throughout the entire LEFT lung. 2. Study is limited by body habitus.
--- NOTE | 2019-12-01 10:37 | ECG_ITS ---
Measurements Intervals Chappell Rate: 92 P: 81 MD: 180 QRS: 74 QRSD: 113 T: 61 QT: 371 QTc: 460 SINUS RHYTHM WITH OCCASIONAL SUPRAVENTRICULAR PREMATURE COMPLEXES INCOMPLETE RIGHT BUNDLE BRANCH BLOCK [90+ ms QRS DURATION, TERMINAL R IN V1/V2, 40+ ms S IN I/aVL/V4/V5/V6] Compared to ECG 11/25/2019 07:11:47 T-wave abnormality no longer present Electronically Signed On 12-01-2019 14:25:55 CDT by Dylan Mario MD [email or web address]
--- NOTE | 2019-12-01 10:38 | ED_ITS ---
HPI - Altered Mental Status General: Chief Complaint: Altered Mental Status Stated Complaint: SEPTIC SHOCK/ AMS Time Seen by Provider: 12/01/19 10:32 Source: patient and EMS Mode of arrival: EMS Limitations: no limitations History of Present Illness: HPI narrative: 49-year-old male with a history of morbid obesity who friend called EMS as he found him in respiratory distress al bruna with being altered. Patient here is able answer all my questions appropriately states he has had a fever along with shortness of breath. Patient is on oxygen here was 70% on room air. Patient denies any pain. Denies any worsening improving factors. complaint: confusion Onset (ago): hour(s) Associated symptoms: Deny depression Review of Systems Const: Reports: fever(s) Eyes: Denies: blurry vision or eye discomfort ENMT: Denies: throat pain or dental pain Card: Denies: chest pain Resp: Reports: dyspnea and wheezing GI: Denies: abdominal pain, nausea, vomiting or diarrhea : Denies: dysuria Musc: Denies: neck pain or back pain Skin/Breast: Denies: rash Neuro: Reports: confusion Psych: Denies: depression Mendel/Lymph: Denies: easy bruising All/Imm: Denies: urticaria PFSH ED PFSH: Medical History Diabetes Gout Hyperlipemia, mixed Hypertension Morbid (severe) obesity due to excess calories OPAL (obstructive sleep apnea) Surgical History History of adenoidectomy History of hernia repair History of tonsillectomy History of umbilical hernia repair Family History Mother Hypertension CAD (coronary artery disease) Stroke Social History Smoking and tobacco status: former smoker Second hand smoke exposure: Yes Alcohol intake: never Lives independently: Yes Household members: friend(s) Physical Exam Const: COMMON NORMALS: patient oriented x3 and healthy appearing GENERAL APPEARANCE: in distress and ill appearing HENMT: COMMON NORMALS: normocephalic and atraumatic HEAD & SCALP: normocephalic and atraumatic Eye: COMMON NORMALS: Equal, round and reactive pupils present and EOMs intact bilaterally PUPIL: Yes Equal, round and reactive pupils present Neck/C-Spine: COMMON NORMALS: full ROM and supple Chest: COMMONS NORMALS: normal inspection of the chest and normal palpation of entire chest wall Resp: COMMON NORMALS: normal respiratory effort, No retractions and No use of accessory muscles AUSCULTATION: rales Cardio: COMMON NORMALS: regular rhythm and No murmurs present (Cardio) RATE: tachycardic RHYTHM: regular rhythm GI: COMMON NORMALS: Normal to inspection, nondistended, normoactive bowel sounds present, Soft to palpation, non-tender and no masses PALPATION: Yes Soft to palpation Extremity: COMMON NORMALS: normal to inspection and full ROM Neuro: COMMON NORMALS: patient oriented x3, moves all extremities and no focal motor deficits Psych: COMMON NORMALS: mental status grossly normal, Normal thought process present and cooperative THOUGHT PROCESS: Normal thought process present Skin: COMMON NORMALS: no rashes or lesions noted and no wounds GENERAL SKIN EXAM: no rashes or lesions noted Course Vital Signs: Vital signs: Vital Signs Temperature 100.7 F H 12/01/19 11:55 Pulse Rate 81 12/01/19 12:03 Respiratory Rate 20 H 12/01/19 12:03 Blood Pressure 111/52 12/01/19 12:03 Pulse Oximetry 92 12/01/19 12:03 MDM - Altered Mental Status MDM Narrative: Medical decision making narrative: Patient presents here with fever along with shortness of breath and is found to have a significant pneumonia on x-ray. Patient is septic with an elevated lactate. Patient's blood pressures here have been stable. Patient given IV antibiotics I spoke to hospitalist and will admit to the ICU. Patient has been stable while in the ER. Lab Data: Labs: Lab Results 12/01/19 12/01/19 12/01/19 Range/Units 10:30 10:30 10:30 WBC 14.6 H (4.0-10.0) 10^3/ uL RBC 4.45 (4.1-5.3) 10^6/u L Hgb 10.6 L (11.7-16.6) g/dL Hct 37.9 L (42.0-52.0) % MCV 85.2 (80-94) fL MCH 23.8 L (28.0-34.0) pg MCHC 28.0 L (30.0-36.0) g/dL RDW 17.0 H (12.1-15.1) % Plt Count 272 (130-400) 10^3/c mm MPV 10.7 H (7.4-10.4) fL Neut % (Auto) 89.3 % Lymph % (Auto) 4.3 % Marion % (Auto) 5.7 % Eos % (Auto) 0.0 % Baso % (Auto) 0.2 % Neut # (Auto) 13.0 H (1.8-7.7) 10^3/u L Lymph # (Auto) 0.6 L (0.8-4.8) 10^3/u L Marion # (Auto) 0.8 (0.2-0.9) 10^3/u L Eos # (Auto) 0.0 (0.0-0.8) 10^3/u L Baso # (Auto) 0.0 (0.0-0.1) 10^3/u L Nucleated RBC % (a uto) 0 % Nucleated RBCs # 0.0 /100WBC PT 16.80 H (10.5-13.3) SECO NDS INR 1.32 H (0.8-1.2) Specimen Type Sample Site ABG pH (7.35-7.45) ABG pCO2 (35-45) mmHg ABG pO2 (80.0-100.0) mmH g ABG HCO3 (22-26) mmol/L ABG Base Excess (-2.0-2.0) mmol/ L Luis Test Hematocrit (42-52) % Hgb O2 Saturation (95-100) % Carboxyhemoglobin (0.4-20.1) %THgb Methemoglobin (0.4-1.5) % Total Hemoglobin (14-18) g/dL O2 Delivery Device O2 Liters/Min % Merchandise Complaint Adjuster ID Sodium 138 (136-145) mmol/L Potassium 2.8 L* (3.5-5.1) mmol/L Chloride 89 L (98-107) mmol/L Carbon Dioxide 30 H (22-29) mmol/L Anion Gap 21.8 H (5-19) BUN 27 H (6-20) mg/dL Creatinine 2.2 H (0.7-1.2) mg/dL GFR Calculation 32.2 L (90-130) mL/min Glucose 134 H (65-115) mg/dL Calculated Osmolal ity 285 (285-295) mOsm/k g Lactate (0.5-2.2) mmol/L Calcium 8.7 (8.5-10.5) mg/dL Magnesium 1.8 (1.7-2.3) mg/dL Total Bilirubin 3.1 H (0.15-1.2) mg/dL AST 30 (0-40) U/L ALT 15 (0-41) U/L Alkaline Phosphata se 204 H (40-130) IU/L NT-Pro-B Natriuret Pep 30799 H (0-125) pg/mL Total Protein 7.5 (6.6-8.7) g/dL Albumin 3.3 L (3.5-5.2) g/dL Globulin 4.2 (1.3-4.6) g/dL 12/01/19 12/01/19 Range/Units 10:37 10:39 WBC (4.0-10.0) 10^3/ uL RBC (4.1-5.3) 10^6/u L Hgb (11.7-16.6) g/dL Hct (42.0-52.0) % MCV (80-94) fL MCH (28.0-34.0) pg MCHC (30.0-36.0) g/dL RDW (12.1-15.1) % Plt Count (130-400) 10^3/c mm MPV (7.4-10.4) fL Neut % (Auto) % Lymph % (Auto) % Marion % (Auto) % Eos % (Auto) % Baso % (Auto) % Neut # (Auto) (1.8-7.7) 10^3/u L Lymph # (Auto) (0.8-4.8) 10^3/u L Marion # (Auto) (0.2-0.9) 10^3/u L Eos # (Auto) (0.0-0.8) 10^3/u L Baso # (Auto) (0.0-0.1) 10^3/u L Nucleated RBC % (a uto) % Nucleated RBCs # /100WBC PT (10.5-13.3) SECO NDS INR (0.8-1.2) Specimen Type Arterial Sample Site Radial, left ABG pH 7.47 H (7.35-7.45) ABG pCO2 47.0 H (35-45) mmHg ABG pO2 70.4 L (80.0-100.0) mmH g ABG HCO3 34.0 H (22-26) mmol/L ABG Base Excess 9.2 H (-2.0-2.0) mmol/ L Luis Test Pos Hematocrit 32.9 L (42-52) % Hgb O2 Saturation 92.0 L (95-100) % Carboxyhemoglobin 1.8 (0.4-20.1) %THgb Methemoglobin 0.9 (0.4-1.5) % Total Hemoglobin 10.7 L (14-18) g/dL O2 Delivery Device Nrb O2 Liters/Min 10.0 % Merchandise Complaint Adjuster ID cak Sodium (136-145) mmol/L Potassium (3.5-5.1) mmol/L Chloride (98-107) mmol/L Carbon Dioxide (22-29) mmol/L Anion Gap (5-19) BUN (6-20) mg/dL Creatinine (0.7-1.2) mg/dL GFR Calculation (90-130) mL/min Glucose (65-115) mg/dL Calculated Osmolal ity (285-295) mOsm/k g Lactate 4.3 H* (0.5-2.2) mmol/L Calcium (8.5-10.5) mg/dL Magnesium (1.7-2.3) mg/dL Total Bilirubin (0.15-1.2) mg/dL AST (0-40) U/L ALT (0-41) U/L Alkaline Phosphata se (40-130) IU/L NT-Pro-B Natriuret Pep (0-125) pg/mL Total Protein (6.6-8.7) g/dL Albumin (3.5-5.2) g/dL Globulin (1.3-4.6) g/dL Imaging Data^: CXR: Radiologist's impression: [address] [address] XRay Report Signed Patient: Arnol Guzman Unit #: [id number] : 1970 Age/Sex: 49 / M ADM Date: 12/01/19 Loc: ER Room/Bed: Attending Dr: Ordering Provider/Ordering MD: Jesús Pickard MD Date of Service: 12/01/19 Procedure(s): XR chest 1V portable [id number] Accession Number(s): [id number] Report Number: [id number] WS: [id number] PORTABLE CHEST HISTORY: fever COMPARISON: 11/21/2019 New area of consolidation throughout the LEFT lung. Increased consolidation predominantly in the upper LEFT peripheral lung field. Coarsened interstitial thickening more focal consolidation laterally. No pleural effusion or pneumothorax. Cardiac size: Mildly enlarged cardiac silhouette. Mediastinum/Aorta: Normal mediastinum. No osseous abnormality seen. XR/XR chest 1V portable [id number] IMPRESSION: 1. New LEFT lung pneumonia, involving the LEFT upper lobe.. Additional pneumonitis suspected throughout the entire LEFT lung. 2. Study is limited by body habitus. EKG Data^: EKG 1: Attestation: I personally reviewed and interpreted this EKG as follows: EKG interpretation date: 12/01/19 EKG interpretation time: 10:50 Interpretation: nsr hr [address] or t wave abnormalities qrs 113 qtc 421 Critical Care Time Critical Care Time: Critical Care Time: Yes Total Critical Care Time: 35 Attestation: This case had a high probability of a clinically significant, sudden, or life threatening deterioration of this patient's condition which required my full and direct attention, intervention and personal management. Discharge Plan Discharge Patient Disposition: Admitted As Inpatient Admit Provider: Juan Urena Clinical Impression: Pneumonia Qualifiers: Pneumonia type: due to unspecified organism Laterality: left Lung location: upper lobe of lung Qualified Code(s): J18.9 - Pneumonia, unspecified organism Sepsis Qualifiers: Sepsis type: sepsis due to unspecified organism Sepsis acute organ dysfunction status: without acute organ dysfunction Qualified Code(s): A41.9 - Sepsis, unspecified organism Condition: Stable Referrals: Stewart Rosario MD [Primary Care Provider] - Coding Level of Care Code ED Plumbing Warehouse Helper for Chg Fwd Exam Comprehensive
[2019-12-01 10:49] LABS: ABG PH Result 7.47 (7.35-7.45); Arterial Blood Gas Hematocrit 32.9 % (42-52); Base Excess ABG 9.2 mmol/L (-2.0-2.0); Blood Gas Allen Test Pos; Blood Gas Sample Site Radial, left; Blood Gas Sample Type Arterial; Carboxyhemoglobin 1.8 %THgb (0.4-20.1); Methemoglobin 0.9 % (0.4-1.5); Oxygen Device NRB; PO2 ABG 70.4 mmHg (80.0-100.0); Total Hemoglobin 10.7 g/dL (14-18)
[2019-12-01] MEDS: sodium chloride 0.9% 1,000 ML 999 ML IV ×2 (10:55→12:56)
[2019-12-01] MEDS: vancomycin 1,000 MG in sodium chloride 0.9% 250 ML 250 MG IV (10:57)
[2019-12-01] MEDS: acetaminophen 325 mg Tablet 650 MG PO ×2 (10:57→22:57)
[2019-12-01] MEDS: aztreonam 2,000 MG in sodium chloride 0.9% (plus) 100 ML 200 MG IV (11:00)
[2019-12-01 11:03] LABS: Basophils % 0.2 %; Hematocrit 37.9 % (42.0-52.0); Hemoglobin 10.6 g/dL (11.7-16.6); Lymphocytes # 0.6 10^3/uL (0.8-4.8); Lymphocytes % 4.3 %; Mean Corpuscular Hemoglobin 23.8 pg (28.0-34.0); Mean Corpuscular Volume 85.2 fL (80-94); Mean Platelet Volume 10.7 fL (7.4-10.4); Monocytes # 0.8 10^3/uL (0.2-0.9); Monocytes % 5.7 %; Neutrophils % 89.3 %; Nucleated Red Blood Cells % 0 %; Platelet Count 272 10^3/cmm (130-400); Red Blood Count 4.45 10^6/uL (4.1-5.3); White Blood Count 14.6 10^3/uL (4.0-10.0)
[2019-12-01 11:16] LABS: INR 1.32 (0.8-1.2)
[2019-12-01 11:32] LABS: Alanine Aminotransferase 15 U/L (0-41); Albumin Level 3.3 g/dL (3.5-5.2); Alkaline Phosphatase 204 IU/L (40-130); Anion Gap 21.8 (5-19); Aspartate Amino Transferase 30 U/L (0-40); Blood Urea Nitrogen 27 mg/dL (6-20); Calcium 8.7 mg/dL (8.5-10.5); Carbon Dioxide 30 mmol/L (22-29); Chloride 89 mmol/L (98-107); Globulin 4.2 g/dL (1.3-4.6); Glomerular Filtration Rate 32.2 mL/min (90-130); Glucose 134 mg/dL (65-115); Magnesium 1.8 mg/dL (1.7-2.3); NT Pro B Type Natriuretic Pept 11700 pg/mL (0-125); Osmolality Calculated 285 mOsm/kg (285-295); Sodium 138 mmol/L (136-145); Total Bilirubin 3.1 mg/dL (0.15-1.2); Total Protein 7.5 g/dL (6.6-8.7)
[2019-12-01 11:36] LABS: Lactate (Lactic Acid level) 4.3 mmol/L (0.5-2.2)
[2019-12-01 11:37] LABS: Potassium 2.8 mmol/L (3.5-5.1)
--- NOTE | 2019-12-01 12:23 | PC.NURSE ---
Pt swabbed for COVID and flu per policy. Pt placed on COVID precautions as well as contact/droplet precautions. RT at bedside to place pt on bipap.
--- NOTE | 2019-12-01 12:40 | PC.NURSE ---
1230- attempted to call report to floor, was told nurse was in pt room, nurse will call back
[2019-12-01 12:48] LABS: Estmated Average Glucose 189; Hemoglobin A1C 8.2 % (4.0-6.0)
--- NOTE | 2019-12-01 12:53 | PC.NURSE ---
Read and agree with assessment
[2019-12-01 13:15] LABS: INR 1.35 (0.8-1.2)
[2019-12-01 13:22] LABS: Lactic Sepsis W/Reflex 2.7 mmol/L (0.5-2.2)
--- NOTE | 2019-12-01 13:22 | PC.NURSE ---
Addendum entered by Dilma Maldonado RN 12/11/19 09:06: Pt came from ER with tshirt and shorts on. His flip phone in his hand. Original Note: Pt admitted to ICU 6 from ED. Pt morbidly obese. PT at bedside, BiPap applied. Pt oriented and drowsy but responds to questions appropriately 2 IV sites noted, Bilat AC spaces. Bilat excoriated noted in groin folds. Pt stated he has yeast infection
--- NOTE | 2019-12-01 13:31 | PC.PHAR ---
Vancomycin dosing per Pharmacy 1500 mg q18h Patient: Floor: Age: 49 yo Serum creatinine: 2.2 mg/dL Height: 61.0 Inches Weight (kg): 159 IBW (kg): 52.30 Dosing wt(kg): 95.0 Estimated Creatinine clearance (ml/min): 55.8 CRCL method: Cockcroft and Gault using adjusted body weight Drug selected: Vancomycin Loading dose (mg): Vd (liters): 66.5 (factor used: 0.7 L/kg) Ruben (hr-1): 0.051 Half life (hrs): 13.59 CLvanco= 3.391 L/hr Recommended dose: 1500 mg Interval: 18 hrs Infusion time (hrs): 1 Predicted peak (mcg/mL): 36.6 Predicted trough (mcg/mL): 15.38 Adjusted body weight was selected for vancomycin dosing. To switch back, select the total body weight option above. Recommendations: Give Vancomycin 1500 mg q 18 hrs with an expected Cpeak of 36.6 mcg/ml and an expected Ctrough of 15.38 mcg/ml
[2019-12-01 13:40] LABS: Thyroid Stimulating Hormone 1.95 uIU/mL (0.27-4.20)
[2019-12-01] MEDS: enoxaparin 40 mg/0.4 mL Syringe SUBCUT (13:54)
[2019-12-01 14:30] LABS: Reflex Lactate Order REFLEX LACTIC ORDERD
--- NOTE | 2019-12-01 14:30 | PM.HP ---
Providers/Chief Complaint Admitting Physician: Juan Urena MD Primary Care Provider: Stewart Rosario MD Chief Complaint: SEPTIC SHOCK/ AMS History of Present Illness Arnol Guzman is a 49 year old male morbid obesity, OPAL, hypertension, type 2 diabetes mellitus, hyperlipidemia, COPD on chronic 2 L, diastolic heart failure, who presents to [facility] due to complaints of fevers, cough, shortness of breath, weakness, fatigue, malaise for the last few days. Patient denies any travel, no exposure to COVID-19, no known sick contacts, patient has been social distancing. Patient states that for the last 3 days he has had a nonproductive cough, increased shortness of breath with exertion, no orthopnea, no paroxysmal nocturnal dyspnea, minimal bilateral extremity edema, he has had some subjective fevers, feeling more fatigued and malaise recently. Patient states that he woke up this morning he could not get out of bed, as he felt so fatigued, he also had some back pain, no chest pain, no palpitations, patient is using all his medications as prescribed, Review of Systems Const: Reports: fever(s); Denies: chills, fatigue or malaise Eyes: Denies: change in vision or blurry vision ENMT: Denies: nasal congestion Resp: Reports: dyspnea and non-productive cough; Denies: productive cough or wheezing GI: Denies: abdominal pain, nausea, vomiting, hematemesis, diarrhea, constipation, hematochezia or melena : Denies: flank pain, difficulty urinating, dysuria or urinary frequency Musc: Denies: neck pain or back pain Skin/Breast: Denies: rash Neuro: Denies: headache(s), dizziness or vertigo Psych: Denies: anxiety or depression Endo: Denies: polyuria or polydipsia Medications/Allergies Home Medications Medication Instructions Recorded Confirmed Last Taken Type albuterol sulfate [ProAir HFA] 2 - 4 puff INHALATION QID PRN 07/14/19 12/01/19 07/14/19 History allopurinol 300 mg PO DAILY 07/14/19 12/01/19 10/15/19 History aspirin [Aspir-81] 81 mg PO DAILY 07/14/19 12/01/19 10/15/19 History atenolol 100 mg PO DAILY 07/14/19 12/01/19 10/15/19 History atorvastatin [Lipitor] 80 mg PO DAILY 07/14/19 12/01/19 10/13/19 History loratadine 10 mg PO DAILY 07/14/19 12/01/19 10/15/19 History metformin 500 mg PO BID 07/14/19 12/01/19 10/15/19 History montelukast [Singulair] 10 mg PO DAILY 07/14/19 12/01/19 10/14/19 History omeprazole 40 mg PO DAILY 07/14/19 12/01/19 10/14/19 History lisinopril 20 mg PO DAILY 30 Days #30 tab 07/15/19 12/01/19 10/15/19 Rx mometasone-formoterol HFA 200 2 puff INHALATION BID 08/12/19 12/01/19 10/14/19 History mcg-5 mcg/actuation aerosol inhaler insulin degludec 200 unit/mL (3 20 unit SUBCUT DAILY ml 10/14/19 12/01/19 Unknown History mL) subcutaneous pen potassium chloride 20 meq PO TID #15 tab 11/25/19 12/01/19 Unknown Rx docusate sodium 200 mg PO BEDTIME 12/01/19 12/01/19 Unknown History furosemide 40 mg PO DAILY 12/01/19 12/01/19 Unknown History Allergies Allergy/AdvReac Type Severity Reaction Status Date / Time Penicillins Allergy ALGY-Hives Verified 11/21/19 13:02 diltiazem [From Cardizem] AdvReac ADR/ALGY-Pa Verified 11/21/19 13:02 lpitations PFSH Acute PFSH: Medical History Diabetes Gout Hyperlipemia, mixed Hypertension Morbid (severe) obesity due to excess calories OPAL (obstructive sleep apnea) Surgical History History of adenoidectomy History of hernia repair History of tonsillectomy History of umbilical hernia repair Family History Mother Hypertension CAD (coronary artery disease) Stroke Social History Smoking and tobacco status: former smoker Second hand smoke exposure: Yes Alcohol intake: never Lives independently: Yes Household members: friend(s) Vitals/I&O/Wt Last Vital Signs Temp 100.7 F H 12/01/19 11:55 Pulse 72 12/01/19 13:15 Resp 19 H 12/01/19 13:15 BP 108/59 12/01/19 13:15 Pulse Ox 96 12/01/19 13:15 11/30/19 12/01/19 12/01/19 22:59 06:59 14:59 Intake Total 1350 / 1350 Balance 1350 / 1350 Weight last 48 hrs Weight 158.757 kg Physical Exam Const: COMMON NORMALS: no acute distress and patient oriented x3 GENERAL APPEARANCE: cooperative and comfortable HENMT: COMMON NORMALS: normocephalic HEAD & SCALP: normocephalic Eye: COMMON NORMALS: Equal, round and reactive pupils present, EOMs intact bilaterally and no papilledema GENERAL EYE: appearance normal, both eyes and all related structures PUPIL: Yes Equal, round and reactive pupils present DIRECT OPHTHALMOSCOPY: Yes no papilledema Neck/C-Spine: COMMON NORMALS: full ROM, no lymphadenopathy, no JVD and Thyroid normal THYROID: Thyroid normal Lymph: LYMPHATIC: no lymphadenopathy noted Resp: COMMON NORMALS: normal respiratory effort, No retractions, No use of accessory muscles and clear to auscultation bilaterally AUSCULTATION: diminished lung sounds on the left Cardio: COMMON NORMALS: no JVD, regular rate, regular rhythm, S1 normal heart sound present, S2 normal heart sound present, No gallops present (Cardio), No clicks present (Cardio) and No murmurs present (Cardio) RATE: regular rate RHYTHM: regular rhythm HEART SOUNDS: S1 normal heart sound present and S2 normal heart sound present GI: COMMON NORMALS: Normal to inspection, nondistended, normoactive bowel sounds present, Soft to palpation, non-tender and No hepatosplenomegaly present PALPATION: Yes Soft to palpation and Yes No hepatosplenomegaly present Extremity: COMMON NORMALS: normal to inspection, full ROM and no pedal edema Neuro: COMMON NORMALS: patient oriented x3, CN's II-XII intact bilaterally, moves all extremities and no focal motor deficits Psych: COMMON NORMALS: mental status grossly normal, Normal thought process present and cooperative THOUGHT PROCESS: Normal thought process present Data : 12/01/19 10:30 12/01/19 10:30 Micro: Microbiology 12/01/19 10:55 Blood Culture - Preliminary Blood SPECIMEN COLLECTED 12/01/19 10:39 Blood Culture - Preliminary Blood SPECIMEN COLLECTED A&P Assessment and plan (1) Acute respiratory failure with hypoxia: -Patient in the ICU was not tolerating BiPAP well, Removing the mask, Removing the mask, was appearing more confused, repeat ABG showed pH of 7.48, PCO2 46.6, PO2 of 70.6 -Patient agreed for intubation, mechanical ventilation, patient was intubated by anesthesiologist -Acute hypoxic respiratory failure secondary to left-sided pneumonia, with sepsis, diastolic heart failure -Sepsis criteria met, lactic aci 4.3, creatinine 2.2, white blood cell count 14.6 INR, INR 1.35, pro-Eliud 2.57 Plan: -Admitted to the ICU -Mechanical ventilation, minimize PEEP, minimize FiO2 -Propofol and fentanyl for sedation -Protonix for GI prophylaxis, Lovenox for DVT prophylaxis -Broad-spectrum antibiotics vancomycin, and Primaxin, cover for healthcare associated pneumonia as he was admitted 3 months ago -Patient's BNP is 11,000, chest x-ray does not show pulmonary vascular congestion, no bilateral extremity edema, hold off on diuresis as blood pressures are soft -Maintain map greater than 65, 2 peripheral IVs, no central line needed as patient's blood pressures are reasonable -Follow blood cultures, urine cultures, sputum cultures -Start tube feeds -COVID-19 testing Status: Acute (2) Sepsis: Status: Acute Qualifiers: Sepsis acute organ dysfunction status: without acute organ dysfunction Sepsis type: sepsis due to unspecified organism Qualified Code(s): A41.9 - Sepsis, unspecified organism (3) CHF (congestive heart failure): Status: Acute Qualifiers: Heart failure chronicity: acute on chronic Heart failure type: unspecified Qualified Code(s): I50.9 - Heart failure, unspecified (4) Hypertension: Status: Chronic Qualifiers: Hypertension type: essential hypertension Qualified Code(s): I10 - Essential (primary) hypertension (5) Diabetes: Low-dose sliding scale Status: Chronic Qualifiers: Diabetes mellitus complication status: with circulatory complication Diabetes mellitus prison insulin use: with prison use Diabetes mellitus type: type 2 (6) Pneumonia: Status: Acute Qualifiers: Laterality: left Lung location: upper lobe of lung Pneumonia type: due to unspecified organism Qualified Code(s): J18.9 - Pneumonia, unspecified organism Attestations Medical Necessity Statement*: patient requires hospitalization, inpatient, >2 midnights, left-sided pneumonia, sepsis, septic shock, acute respiratory failure Coding Level of Care Code 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 [facility] Fwd Exam Comprehensive Diagnoses Acute respiratory failure with hypoxia J96.01 Sepsis A41.9 Sepsis acute organ dysfunction status: without acute organ dysfunction Sepsis type: sepsis due to unspecified organism CHF (congestive heart failure) I50.9 Heart failure chronicity: acute on chronic Heart failure type: unspecified Hypertension I10 Hypertension type: essential hypertension Diabetes E11.9 Diabetes mellitus complication status: with circulatory complication Diabetes mellitus prison insulin use: with prison use Diabetes mellitus type: type 2 Pneumonia J18.9 Laterality: left Lung location: upper lobe of lung Pneumonia type: due to unspecified organism
[2019-12-01 14:51] LABS: ABG PCO2 46.6 mmHg (35-45); ABG PH Result 7.48 (7.35-7.45); Alveolar-Arterial Oxygen Gradi 186.7 mmHg (5-10); Arterial Blood Gas Hematocrit 31.4 % (42-52); Base Excess ABG 9.9 mmol/L (-2.0-2.0); Blood Gas Allen Test Pos; Blood Gas Sample Site Brachial, left; Blood Gas Sample Type Arterial; Carboxyhemoglobin 1.3 %THgb (0.4-20.1); HCO3 ABG 34.6 mmol/L (22-26); HGB O2 Sat 93.1 % (95-100); Ionized Calcium Level - ABG 1.1 mmol/L (1.1-1.4); Methemoglobin 0.9 % (0.4-1.5); Oxygen Device BIPAP; Oxygen Saturation ABG 95.2; PO2 ABG 70.6 mmHg (80.0-100.0); Potassium Level - ABG 2.9 mmol/L (3.5-5.0); Total Hemoglobin 10.2 g/dL (14-18)
[2019-12-01 15:45] LABS: Procalcitonin 2.57 ng/mL (0-0.5)
[2019-12-01 15:55] LABS: C Reactive Protein 286.3 mg/L (0.0-4.9)
[2019-12-01] MEDS: propofol 1,000 MG/100 ML INJ 47.6 MG IV (16:00)
--- NOTE | 2019-12-01 16:11 | ANES.PROC ---
Anesthesia Procedures Procedure/Date: 12/01/19 Intubation: Time Out Performed: Yes Consent: requested by attending/covering physician, risks and benefits reviewed and patient agrees to proceed Sedative (amount): other Paralytic (amount): succinylcholine Laryngoscope: Jose ET Tube Size: 8 ET Tube Uncuffed: No Tube Secured Depth (cm): 23 Tube Secured Location: lips Tube Placement Confirmation: visualized tube passing through cords, equal breath sounds bilaterally, confirmation by capnometry and color change noted Patient Tolerated Procedure: well Intubation Complications: none Additional Comments: Easy intubation> Propofol 200mg given prio to intubation
--- NOTE | 2019-12-01 16:15 | PC.NURSE ---
Pt intubated by anesthesiology. OG inserted by anesthesiology, placement auscultated.
[2019-12-01 16:26] LABS: Lactic Acid level (Lactate) 1.8 mmol/L (0.5-2.2)
[2019-12-01 16:26] LABS: Glucose Point of Care 72 mg/dL (70-110)
[2019-12-01] MEDS: ipratropium-albuterol 3 mL Neb INHALATION ×3 (16:32→23:30)
[2019-12-01 17:18] LABS: Influenza A by IFA Negative (Negative); Influenza B by IFA Negative (Negative)
--- NOTE | 2019-12-01 17:26 | PC.NURSE ---
OG and ETT still awaiting xray for confirmation of placement.
[2019-12-01 17:39] LABS: ABG PCO2 53.7 mmHg (35-45); ABG PH Result 7.42 (7.35-7.45); Alveolar-Arterial Oxygen Gradi 405.7 mmHg (5-10); Arterial Blood Gas Hematocrit 29.6 % (42-52); Base Excess ABG 9.2 mmol/L (-2.0-2.0); Blood Gas Allen Test Pos; Blood Gas Sample Site Brachial, left; Blood Gas Sample Type Arterial; Blood Gas Tidal Volume 0.5; Carboxyhemoglobin 1.2 %THgb (0.4-20.1); HGB O2 Sat 84.3 % (95-100); Ionized Calcium Level - ABG 1.1 mmol/L (1.1-1.4); Methemoglobin 0.8 % (0.4-1.5); Oxygen Device VENT; PO2 ABG 51.2 mmHg (80.0-100.0); Total Hemoglobin 9.6 g/dL (14-18)
--- NOTE | 2019-12-01 17:50 | PM.CONSULT ---
Providers/Reason For Consult Consulting Physican/Specialty*: Urology/Perez Reason for Consult*: Inability to pass catheter Attending Physician: Juan Urena MD Primary Care Provider: Stewart Rosario MD History of Present Illness History of Present Illness Arnol Guzman is a 49 year old male admitted with hypoxia, shortness of breath weakness confusion progressing over the last several days. Prior to my evaluation he was intubated and placed in the ICU on COVID-19 restrictions due to acute respiratory failure with sepsis and pneumonia. A catheter was requested for volume management and multiple attempts by the nursing staff were unsuccessful. Further complicated by morbid obesity. I have reviewed his prior notes and I found no information regarding urethral stricture or other urologic problems. There is not much in [employer] or the [employer] Other severe medical problems include obstructive sleep apnea, hypertension, type 2 diabetes mellitus, hyperlipidemia, COPD on chronic 2 L oxygen, diastolic heart failure. PROCEDURE: Difficult Shaw catheter placement, urethral dilation with catheter sounds On examination genitals were normal. Phallus was retracted into the mons pubis fat but could be exposed with significant pressure on the mons pubis. Meatus looked normal initially. Prepped with Betadine. No allergies confirmed prior. 2% lidocaine jelly was attempted to be instilled but was not successful. A 10 Australian straight in and out catheter was used to probe the meatus and initially there was no progression whatsoever and it was realized at that point that there was a more dorsally located dimple and below that was a true meatus. The 10 Australian went easily and this true meatus into the bladder with dark urine drained. A 14 Australian was then passed more tightly but was unable to be passed into the urethra. 2% lidocaine jelly was then instilled into the true urethral meatus and a 14 Australian coud? tipped Shaw catheter was with some resistance into the bladder where the catheter was confirmed to be functioning before inflation of balloon. Less than 25 cc of urine was drained. It appeared to be concentrated. Patient was turned back over to the nursing staff. For the entire visit and for the procedure COVID-19 precautions were maintained in the negative pressure ICU room. Review of Systems Narrative: Patient is intubated and no review of systems could be obtained. I did review the review of systems per and the ED physician notes. Meds/Allergies Home Medications and Allergies Home Medications Medication Instructions Recorded Confirmed Last Taken Type albuterol sulfate [ProAir HFA] 2 - 4 puff INHALATION QID PRN 07/14/19 12/01/19 07/14/19 History allopurinol 300 mg PO DAILY 07/14/19 12/01/19 10/15/19 History aspirin [Aspir-81] 81 mg PO DAILY 07/14/19 12/01/19 10/15/19 History atenolol 100 mg PO DAILY 07/14/19 12/01/19 10/15/19 History atorvastatin [Lipitor] 80 mg PO DAILY 07/14/19 12/01/19 10/13/19 History loratadine 10 mg PO DAILY 07/14/19 12/01/19 10/15/19 History metformin 500 mg PO BID 07/14/19 12/01/19 10/15/19 History montelukast [Singulair] 10 mg PO DAILY 07/14/19 12/01/19 10/14/19 History omeprazole 40 mg PO DAILY 07/14/19 12/01/19 10/14/19 History lisinopril 20 mg PO DAILY 30 Days #30 tab 07/15/19 12/01/19 10/15/19 Rx mometasone-formoterol HFA 200 2 puff INHALATION BID 08/12/19 12/01/19 10/14/19 History mcg-5 mcg/actuation aerosol inhaler insulin degludec 200 unit/mL (3 20 unit SUBCUT DAILY ml 10/14/19 12/01/19 Unknown History mL) subcutaneous pen potassium chloride 20 meq PO TID #15 tab 11/25/19 12/01/19 Unknown Rx docusate sodium 200 mg PO BEDTIME 12/01/19 12/01/19 Unknown History furosemide 40 mg PO DAILY 12/01/19 12/01/19 Unknown History Allergies Allergy/AdvReac Type Severity Reaction Status Date / Time Penicillins Allergy ALGY-Hives Verified 11/21/19 13:02 diltiazem [From Cardizem] AdvReac ADR/ALGY-Pa Verified 11/21/19 13:02 lpitations Current Medications Current Medications Generic Name Dose Route Start Last Admin Trade Name Freq PRN Reason Stop Dose Admin Albuterol/Ipratropium 3 ml 12/01/19 16:00 12/01/19 16:32 Duoneb INHALATION 3 ml Q4H.RESPIRATORY NESSA Administration Enoxaparin Sodium 40 mg 12/01/19 12:30 12/01/19 13:54 Lovenox SUBCUT 40 mg Q24H NESSA Administration Vancomycin HCl 1,500 mg/ 250 mls @ 166.667 mls/hr 12/01/19 14:30 12/01/19 16:30 Sodium Chloride IV Infused Q18H NESSA Infusion Protocol Imipenem/Cilastatin Sodium 500 100 mls @ 200 mls/hr 12/01/19 13:30 12/01/19 14:25 mg/ Sodium Chloride IV Infused Q8H NESSA Infusion Protocol Propofol 1,000 mg in 100 mls @ 0 mls/hr 12/01/19 15:30 12/01/19 16:00 Diprivan IV 50 mcg/kg/min .Q0M NESSA 47.6 mls/hr Administration Protocol Per Protocol Insulin Aspart 0 unit 12/01/19 18:00 12/01/19 17:28 Novolog SUBCUT Not Given TIDWM NESSA Protocol Non-Formulary Medication 2 puff 12/01/19 18:00 12/01/19 16:50 Mometasone-Formoterol [Dulera] INHALATION Not Given BID NESSA PFSH Acute PFSH: Medical History (Updated 12/01/19 @ 17:58 by Guillermo Perez MD) Diabetes Gout Hyperlipemia, mixed Hypertension Morbid (severe) obesity due to excess calories OPAL (obstructive sleep apnea) Pneumonia Surgical History History of adenoidectomy History of hernia repair History of tonsillectomy History of umbilical hernia repair Family History Mother Hypertension CAD (coronary artery disease) Stroke Social History Smoking and tobacco status: former smoker Second hand smoke exposure: Yes Alcohol intake: never Lives independently: Yes Household members: friend(s) Vitals/I&O/Wt Last Vital Signs Temp 100.7 F H 12/01/19 11:55 Pulse 96 12/01/19 16:45 Resp 16 12/01/19 16:41 BP 108/59 12/01/19 13:15 Pulse Ox 96 12/01/19 16:41 12/01/19 12/01/19 12/01/19 06:59 14:59 22:59 Intake Total 1450 / 1450 250 / 1700 Balance 1450 / 1450 250 / 1700 Weight last 48 hrs Weight 350 lb Physical Exam Narrative: EXAM NARRATIVE: Patient is intubated and sedated. Not responsive. Morbidly obese. Abdominal exam is positive for truncal obesity. No palpable masses. Genitourinary exam shows penis retracted into the mons pubis fat. Normal scrotum testicles perineum. Card: RRR, tachy Psych: None assessable due to intubation. Was reported confused prior to intubation Const: EXAM LIMITATIONS: altered mental status NUTRITIONAL APPEARANCE: obese morbidly obese ORIENTATION/CONSCIOUSNESS: Yes patient obtunded Extremity: OTHER: pretib edema Skin: OTHER: no genital rash Data Micro: Micro: Microbiology 12/01/19 10:55 Blood Culture - Pr eliminary Blood SPECIMEN [facility] TONE 12/01/19 10:39 Blood Culture - Pr eliminary Blood SPECIMEN [facility] A&P Assessment and plan (1) Acquired urinary meatal stenosis: Complicated by urethral dimple dorsal to the true meatus. Urethral dilation with 10 through 14 Australian straight catheters allowing passage of a 14 Australian coud? Shaw catheter. 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
[2019-12-01 17:54] LABS: Lactic Sepsis W/Reflex 1.5 mmol/L (0.5-2.2)
[2019-12-01] MEDS: dextrose 5%-sod chloride 0.9% 1,000 ML 75 ML IV (18:00)
--- NOTE | 2019-12-01 18:00 | PC.NURSE ---
Attempted silva insertion with 16 fr, unable. Attempted with 12 fr unable to insert. Both met with resistance. Dr Urena notified. Dr Urena consulted Dr Perez. Final catheter 14 kyrgyz coude, 10ml inserted into balloon. Pt tolerated well.
[2019-12-01] MEDS: lidocaine 2% Urojet 20 mL TOPICAL (18:02)
[2019-12-01] MEDS: propofol 1,000 MG/100 ML INJ 33.3 MG IV (18:43)
--- NOTE | 2019-12-01 19:00 | PC.NURSE ---
Repot given to ALFIE Alves. Pt arrived to ICU around 1330, would not leave BiPap on sufficiently for oxygenation. Nor would pt leave IV sites alone,. He was intubated after 1600, OG placement done. Still awaiting verification form xray. 2 New IVs started as the other 2 were wallowed out. Difficulty getting a silva cath in, Dr piedra consulted, he placed a 14 fr Caude. Restraints applied for his safety. He has Propofol for sedation at 35 mcg, his blood pressure is sensitive to it. His blood sugar was 72mg/dL , so D5NS started. has ordered tube feeding , waiting for confirmation of placement.
[2019-12-01 19:14] LABS: Add Urine Microscopic? YES; Bilirubin Urine 1+ (NEGATIVE); Blood Urine 3+ (Negative); Glucose Urine UA Norm (Normal); Ketones Urine Negative (Negative); Leukocyte Esterase Urine Negative (Negative); Nitrate Urine Negative (Negative); Protein Urine 2+ (Negative); Urine Appearance SL Hazy (CLEAR); Urine Color Amber (Yellow); Urobilinogen Urine 8 mg/dL (Negative); pH Urine 5 (5-7)
--- NOTE | 2019-12-01 19:17 | XR_ITS ---
WS: [id number] PORTABLE CHEST HISTORY: Intubation and OG placement COMPARISON: 12/01/2019 Nasogastric tube and endotracheal tubes have been placed in good position. Endotracheal tube ends at the clavicular head level. There is new soft tissue capping of the apex on the RIGHT. Elevated RIGHT fissures. Continued increas ed opacification in the LEFT lung. Mild volume loss and elevation of the RIGHT hemidiaphragm. No pleu ral effusion or pneumothorax. Cardiac size: Normal. Mediastinum/Aorta: Normal mediastinum. No osseous abnormality seen. XR/XR chest 1V portable [id number] IMPRESSION: 1. Endotracheal and nasogastric tubes in good position. 2. Volume loss RIGHT lung with RIGHT upper lobe collapse. 3. Improved aeration but persistent pneumonia LEFT upper lobe.
[2019-12-01 19:19] LABS: Amorphous Sediment Urine 1+; Bacteria Urine 2+; Mucus Urine 2+; WBC Urine 0-4 /hpf (0-5)
[2019-12-01 19:20] LABS: Add Urine Culture? Yes
[2019-12-01 19:44] LABS: Alanine Aminotransferase 17 U/L (0-41); Alkaline Phosphatase 181 IU/L (40-130); Anion Gap 20.3 (5-19); Blood Urea Nitrogen 31 mg/dL (6-20); Calcium 8.3 mg/dL (8.5-10.5); Carbon Dioxide 29 mmol/L (22-29); Chloride 93 mmol/L (98-107); Globulin 4.3 g/dL (1.3-4.6); Glomerular Filtration Rate 24.4 mL/min (90-130); Glucose 84 mg/dL (65-115); Osmolality Calculated 284 mOsm/kg (285-295); Potassium 3.3 mmol/L (3.5-5.1); Sodium 139 mmol/L (136-145); Total Bilirubin 2.2 mg/dL (0.15-1.2); Total Protein 7.3 g/dL (6.6-8.7)
[2019-12-01 19:45] LABS: Aspartate Amino Transferase 50 U/L (0-40)
[2019-12-01 21:05] LABS: Lactic Sepsis W/Reflex 2.3 mmol/L (0.5-2.2)
[2019-12-01] MEDS: FUROsemide 10 mg/mL SDV 4mL 40 MG IVP (21:27)
[2019-12-01] MEDS: propofol 1,000 MG/100 ML INJ 38.1 MG IV (22:03)
[2019-12-01 22:25] LABS: Reflex Lactate Order REFLEX LACTIC ORDERD
[2019-12-01 23:58] LABS: Lactic Acid level (Lactate) 2.8 mmol/L (0.5-2.2)
[2019-12-02] VITALS (31 sets, daily range): BP systolic 104–142; BP diastolic 42–77; PULSE 72–105; RESP 16–21; TEMP 37.3–38.6; O2SAT 93–100
[2019-12-02] MEDS: propofol 1,000 MG/100 ML INJ 28.6 MG IV ×3 (01:21→23:31)
[2019-12-02 01:38] LABS: Glucose Point of Care 72 mg/dL (70-110)
[2019-12-02 01:38] LABS: Glucose Point of Care 78 mg/dL (70-110)
[2019-12-02] MEDS: ipratropium-albuterol 3 mL Neb INHALATION ×4 (03:46→15:51)
[2019-12-02 04:06] LABS: ABG PCO2 48.3 mmHg (35-45); ABG PH Result 7.44 (7.35-7.45); Arterial Blood Gas Hematocrit 30.4 % (42-52); Base Excess ABG 7.8 mmol/L (-2.0-2.0); Blood Gas Sample Site Brachial, right; Blood Gas Sample Type Arterial; Blood Gas Tidal Volume 0.5; HCO3 ABG 32.9 mmol/L (22-26); Oxygen Device VENT; PO2 ABG 89.6 mmHg (80.0-100.0)
[2019-12-02 04:33] LABS: Basophils % 0.2 %; Hematocrit 34.4 % (42.0-52.0); Hemoglobin 9.7 g/dL (11.7-16.6); Lymphocytes # 0.6 10^3/uL (0.8-4.8); Lymphocytes % 5.4 %; Mean Corpuscular HGB Conc 28.2 g/dL (30.0-36.0); Mean Corpuscular Hemoglobin 24.4 pg (28.0-34.0); Mean Corpuscular Volume 86.6 fL (80-94); Mean Platelet Volume 10.8 fL (7.4-10.4); Monocytes # 0.7 10^3/uL (0.2-0.9); Monocytes % 6.3 %; Neutrophils # 9.7 10^3/uL (1.8-7.7); Neutrophils % 87.5 %; Nucleated Red Blood Cells % 0 %; Platelet Count 196 10^3/cmm (130-400); Red Blood Count 3.97 10^6/uL (4.1-5.3); White Blood Count 11.1 10^3/uL (4.0-10.0)
[2019-12-02 05:10] LABS: Alanine Aminotransferase 17 U/L (0-41); Albumin Level 2.6 g/dL (3.5-5.2); Alkaline Phosphatase 164 IU/L (40-130); Anion Gap 19.8 (5-19); Aspartate Amino Transferase 44 U/L (0-40); Blood Urea Nitrogen 39 mg/dL (6-20); Carbon Dioxide 29 mmol/L (22-29); Chloride 94 mmol/L (98-107); Globulin 4.4 g/dL (1.3-4.6); Glomerular Filtration Rate 16.2 mL/min (90-130); Glucose 82 mg/dL (65-115); Magnesium 1.9 mg/dL (1.7-2.3); Osmolality Calculated 287 mOsm/kg (285-295); Phosphorus 4.4 mg/dL (2.5-4.5); Sodium 140 mmol/L (136-145); Total Bilirubin 1.7 mg/dL (0.15-1.2)
[2019-12-02 05:12] LABS: C Reactive Protein 326.9 mg/L (0.0-4.9); Lactic Sepsis W/Reflex 3.2 mmol/L (0.5-2.2)
[2019-12-02 05:16] LABS: Potassium 2.8 mmol/L (3.5-5.1)
[2019-12-02 05:35] LABS: Glucose Point of Care 77 mg/dL (70-110)
[2019-12-02] MEDS: potassium chloride premix 40 MEQ/100 ML PREMIX 25 MEQ IV ×2 (05:47→14:02)
[2019-12-02 06:14] LABS: Reflex Lactate Order REFLEX LACTIC ORDERD
[2019-12-02] MEDS: dextrose 5%-sod chloride 0.9% 1,000 ML 75 ML IV ×2 (07:28→20:21)
[2019-12-02] MEDS: propofol 1,000 MG/100 ML INJ 42.9 MG IV ×5 (07:58→17:51)
[2019-12-02 07:59] LABS: Glucose Point of Care 73 mg/dL (70-110)
--- NOTE | 2019-12-02 08:00 | CT_ITS ---
WS: [id number] CT CHEST WITHOUT INTRAVENOUS CONTRAST HISTORY: Pneumonia. TECHNIQUE: Contiguous 5 mm axial imaging performed on the thorax. Coronal and sagittal reformats are submitted. All CT scans at [facility] use at least one of these dose optimization techniq ues: automated exposure control; mA and/or kV adjustment per patient size (includes targeted exams wh ere dose is matched to clinical indication); or iterative reconstruction. CONTRAST: None DLP: 935.49 mGy.cm COMPARISON: Chest radiograph 12/01/2019 Patient is intubated. Endotracheal tube in good position. Nasogastric tube is also in good position. Lungs and central airway: Lung volumes are decreased. Partial atelectasis with lobar collapse of the RIGHT upper lobe. The aeration has improved since earlier radiograph obtained on 12/01/2019. Large are a of consolidation involving the LEFT upper and LEFT lower lobes. There are additional patchy opacifi cations noted bilaterally. Pleura: Very small LEFT pleural effusion. Heart and pericardium: Moderately enlarged heart with no pericardial effusion. Mediastinum and carlos: Small mediastinal and hilar lymph nodes. Vessels: Normal size aorta. Pulmonary artery size is enlarged, greater than the diameter of the aorta . Chest wall and lower neck: Mild soft tissue anasarca. Mild gynecomastia. Upper abdomen: Liver is enlarged. Spleen is also enlarged but incompletely visualized. Spleen probabl y extends over length of at least 15 cm. No adrenal mass. Osseous structures: Increase in thoracic kyphosis. CT/CT chest wo con [id number] IMPRESSION: 1. Partial atelectasis RIGHT upper lobe. Atelectasis has improved since the ra diograph obtained on 12/01/2019. 2. Dense pneumonia LEFT upper and LEFT lower lobes with additional patchy bila teral areas of consolidation. 3. Moderate cardiomegaly. 4. Liver and spleen appear to be enlarged but incompletely visualized on this examination.
[2019-12-02 08:53] LABS: Lactic Sepsis W/Reflex 3.4 mmol/L (0.5-2.2)
--- NOTE | 2019-12-02 09:22 | PM.CONSULT ---
Providers/Reason For Consult Consulting Physican/Specialty*: amanda herrera md telenephrology Reason for Consult*: TEDDY/ hypokalemia Attending Physician: Juan Urena MD Primary Care Provider: Stewart Rosario MD History of Present Illness History of Present Illness hx from chart- as pt is intubated and sedated Arnol Guzman is a 49 year old male 49 year old male morbid obesity, OPAL, hypertension, type 2 diabetes mellitus, hyperlipidemia, COPD on chronic 2 L, diastolic heart failure, multiple ER visits for numbness, neurological complaints- most recent 11/21/19. Pt presented to [facility] yesterday w/ complaints of fevers, cough, shortness of breath, weakness, fatigue, malaise, nonproductive cough, minimal bilateral extremity edema, fevers, fatigue and malaise. pt was intubated and admitted to ICU , started on abx. he received over 4 liters of fluids. he had a silva placed by urology this AM- he remains oligo-anuric. his k is low, no diarrhea. not on pressers. Review of Systems General: Reports: ROS unobtainable due to mental status Meds/Allergies Home Medications and Allergies Home Medications Medication Instructions Recorded Confirmed Last Taken Type albuterol sulfate [ProAir HFA] 2 - 4 puff INHALATION QID PRN 07/14/19 12/01/19 07/14/19 History allopurinol 300 mg PO DAILY 07/14/19 12/01/19 10/15/19 History aspirin [Aspir-81] 81 mg PO DAILY 07/14/19 12/01/19 10/15/19 History atenolol 100 mg PO DAILY 07/14/19 12/01/19 10/15/19 History atorvastatin [Lipitor] 80 mg PO DAILY 07/14/19 12/01/19 10/13/19 History loratadine 10 mg PO DAILY 07/14/19 12/01/19 10/15/19 History metformin 500 mg PO BID 07/14/19 12/01/19 10/15/19 History montelukast [Singulair] 10 mg PO DAILY 07/14/19 12/01/19 10/14/19 History omeprazole 40 mg PO DAILY 01/06/20 05/25/20 04/07/20 History lisinopril 20 mg PO DAILY 30 Days #30 tab 07/15/19 12/01/19 10/15/19 Rx mometasone-formoterol HFA 200 2 puff INHALATION BID 08/12/19 12/01/19 10/14/19 History mcg-5 mcg/actuation aerosol inhaler insulin degludec 200 unit/mL (3 20 unit SUBCUT DAILY ml 10/14/19 12/01/19 Unknown History mL) subcutaneous pen potassium chloride 20 meq PO TID #15 tab 11/25/19 12/01/19 Unknown Rx docusate sodium 200 mg PO BEDTIME 12/01/19 12/01/19 Unknown History furosemide 40 mg PO DAILY 12/01/19 12/01/19 Unknown History Allergies Allergy/AdvReac Type Severity Reaction Status Date / Time Penicillins Allergy ALGY-Hives Verified 11/21/19 13:02 diltiazem [From [facility]] AdvReac ADR/ALGY-Pa Verified 11/21/19 13:02 lpitations Current Medications Current Medications Generic Name Dose Route Start Last Admin Trade Name Freq PRN Reason Stop Dose Admin Acetaminophen 650 mg 12/01/19 22:04 12/01/19 22:57 Tylenol PO 650 mg Q4H PRN Administration MILD PAIN OR INCREASE TEMP Albuterol/Ipratropium 3 ml 12/01/19 16:00 12/02/19 08:26 Duoneb INHALATION 3 ml Q4H.RESPIRATORY NESSA Administration Albuterol/Ipratropium 3 ml 12/01/19 16:00 12/02/19 03:46 Duoneb INHALATION Not Given Q4H.RESPIRATORY NESSA Enoxaparin Sodium 40 mg 12/01/19 12:30 12/01/19 13:54 Lovenox SUBCUT 40 mg Q24H NESSA Administration Imipenem/Cilastatin Sodium 500 100 mls @ 200 mls/hr 12/01/19 13:30 12/02/19 05:22 mg/ Sodium Chloride IV 200 mls/hr Q8H NESSA Administration Protocol Propofol 1,000 mg in 100 mls @ 0 mls/hr 12/01/19 15:30 12/02/19 07:58 Diprivan IV 45 mcg/kg/min .Q0M NESSA 42.9 mls/hr Administration Protocol Per Protocol Dextrose/Sodium Chloride 1,000 mls @ 75 mls/hr 12/01/19 17:45 12/02/19 07:28 Dextrose 5%-Sod Chloride 0.9% IV 75 mls/hr .[id number] NESSA Administration Potassium Chloride 40 meq in 100 mls @ 25 mls/hr 12/02/19 05:45 12/02/19 05:47 K-Tung IV 12/02/19 13:44 25 mls/hr Q4H NESSA Administration Dextrose/Sodium Chloride 1,000 mls @ 75 mls/hr 12/02/19 08:30 12/02/19 08:59 Dextrose 5%-Sod Chloride 0.9% IV Not Given .[id number] NESSA Insulin Aspart 0 unit 12/01/19 18:00 12/02/19 07:55 Novolog SUBCUT Not Given [facility] Protocol Non-Formulary Medication 2 puff 12/01/19 18:00 12/01/19 16:50 Mometasone-Formoterol [Dulera] INHALATION Not Given BID NESSA PFSH Acute PFSH: Medical History (Updated 12/01/19 @ 17:58 by Guillermo Perez MD) Diabetes Gout Hyperlipemia, mixed Hypertension Morbid (severe) obesity due to excess calories OPAL (obstructive sleep apnea) Pneumonia Surgical History History of adenoidectomy History of hernia repair History of tonsillectomy History of umbilical hernia repair Family History Mother Hypertension CAD (coronary artery disease) Stroke Social History Smoking and tobacco status: former smoker Second hand smoke exposure: Yes Alcohol intake: never Lives independently: Yes Household members: friend(s) Vitals/I&O/Wt Last Vital Signs Temp 99.8 F H 12/02/19 05:00 Pulse 72 12/02/19 08:44 Resp 16 12/02/19 08:46 BP 129/65 12/02/19 06:00 Pulse Ox 98 12/02/19 08:44 12/01/19 12/02/19 12/02/19 22:59 06:59 14:59 Intake Total 1550.0 / 3000.0 205.72 / 3205.72 1090.805 / 1090.805 Output Total 30 / 30 150 / 180 Balance 1520.0 / 2970.0 55.72 / 3025.72 1090.805 / 1090.805 Weight last 48 hrs Weight 158.757 kg Physical Exam Narrative: EXAM NARRATIVE: vent- fio2=65%, TV 500, PEEP 10/ RR10. propofol sedation morbidly obese intubated and sedated heent- nc/at neck- obese lungs crackles b/l heart reg abd soft, nt, nd, +BS ext b/l edema + silva neuro- sedated Urinary Catheter Management^: Coude: Cath Placed During This Visit: yes Reason for Continuing Indwelling Catheter: Accurate Measurement of Urinary Output in Critically Ill Patients Urinary Catheter Date of Insertion: 12/01/19 Urinary Catheter Time of Insertion: 18:00 Data Micro: Micro: Microbiology 12/01/19 10:55 Blood Culture - Pr eliminary Blood SPECIMEN COLLE TONE 12/01/19 10:39 Blood Culture - Pr eliminary Blood SPECIMEN [facility] TONE A&P Additional A&P Information 49 yr old man morbid obesity, EF of 68% and per Cardiology- October 2019- no diastolic dysfunction, obesity, OPAL, DM, htn, gout, here w/ pna 1. pna- renal dose abx as GFR <10 -agree w/ eval for COVID-19 -pt hs sepsis- now BP improved 2. TEDDY- b/l cr 1. likely atn -check renal us -urine studies s/p 4 l fluid resuscutation -bp now stable -check ck monitor in and out -risks include pt waas on gerry-i and lasix at home -no emergent need for dialysis 3. lactic acidosis from TEDDY, sepsis, and metformin pt has underlying resp acidosis- hypercapneic- OPAL -likely met alkalosis from effective intravscular depletion 4. anemia 5. hypokalemia- likely gi losses- monitor repeat chem and gently replete 6. normal tsh Consult Attestations Medical Necessity Statement: septic shock, TEDDY Time Spent in Patient Care: Greater than 35 minutes Critical Care Time: Critical Care Time (min): 50 Coding Level of Care Code Acute City Director for [facility]ett
[2019-12-02 10:19] LABS: Reflex Lactate Order REFLEX LACTIC ORDERD
[2019-12-02] MEDS: atorvastatin 40 mg Tablet 80 MG PO (10:20)
[2019-12-02] MEDS: aspirin 81 mg Chew Tablet PO (10:20)
[2019-12-02] MEDS: montelukast sodium 10 mg Tablet PO (10:20)
[2019-12-02] MEDS: azithromycin 500 MG in sodium chloride 0.9% 250 ML 250 MG IV (10:21)
[2019-12-02] MEDS: pantoprazole 40 mg SDV IVP (10:21)
[2019-12-02 11:17] LABS: Glucose Point of Care 82 mg/dL (70-110)
[2019-12-02 11:21] LABS: Urine Appearance Cloudy (CLEAR); Urine Color Amber (Yellow)
[2019-12-02 11:22] LABS: Add Urine Culture? Yes; Amorphous Sediment Urine 1+; Bacteria Urine 3+; Bilirubin Urine 1+ (NEGATIVE); Blood Urine 3+ (Negative); Glucose Urine UA Norm (Normal); Ketones Urine 1+ (Negative); Leukocyte Esterase Urine 1+ (Negative); Mucus Urine TRACE; Nitrate Urine Negative (Negative); Protein Urine 1+ (Negative); RBC Urine 40-50 /hpf (0-2); Urobilinogen Urine 4 mg/dL (Negative)
[2019-12-02 11:27] LABS: Potassium, Radom Urine 49 mmol/L; Urine Random Sodium 36 mmol/L
[2019-12-02 11:30] LABS: Urine Random Chloride 19 mmol/L
[2019-12-02 11:41] LABS: Alanine Aminotransferase 20 U/L (0-41); Alkaline Phosphatase 179 IU/L (40-130); Anion Gap 20.1 (5-19); Aspartate Amino Transferase 54 U/L (0-40); Blood Urea Nitrogen 39 mg/dL (6-20); Calcium 9.1 mg/dL (8.5-10.5); Carbon Dioxide 29 mmol/L (22-29); Chloride 92 mmol/L (98-107); Globulin 4.4 g/dL (1.3-4.6); Glomerular Filtration Rate 15.3 mL/min (90-130); Glucose 84 mg/dL (65-115); Osmolality Calculated 283 mOsm/kg (285-295); Phosphorus 4.7 mg/dL (2.5-4.5); Potassium 3.1 mmol/L (3.5-5.1); Sodium 138 mmol/L (136-145); Total Bilirubin 1.8 mg/dL (0.15-1.2); Total Protein 7.4 g/dL (6.6-8.7)
[2019-12-02 11:42] LABS: Lactic Acid level (Lactate) 3.6 mmol/L (0.5-2.2)
[2019-12-02] MEDS: linezolid premix 600 MG/300 ML PREMIX 300 MG IV (11:44)
[2019-12-02] MEDS: enoxaparin 40 mg/0.4 mL Syringe SUBCUT (11:44)
[2019-12-02 11:46] LABS: Creatine Phosphokinase 554 U/L (39-308)
--- NOTE | 2019-12-02 12:05 | PM.PN ---
Subjective Subjective: Interval history: Overnight, patient remains normotensive, T-max 100.7, urine output remains lackluster at 180 cc, minimal urine on bladder scan, is intubated, on a ventilator, PEEP of 8, FiO2 of 60%, good tidal volumes 500, I spoke to patient's last night, states that patient and she has been sick for the last week, has been having cough, shortness of breath, fevers, no sick contacts, recent travel, no known exposure to COVID-19, Vitals/I&O/Wt Last Vital Signs Temp 99.3 F 12/02/19 07:00 Pulse 76 12/02/19 11:42 Resp 16 12/02/19 11:42 BP 135/77 12/02/19 11:00 Pulse Ox 98 12/02/19 11:42 12/01/19 12/02/19 12/02/19 22:59 06:59 14:59 Intake Total 1550.0 / 3000.0 205.72 / 3205.72 1190.805 / 1190.805 Output Total 30 / 30 150 / 180 Balance 1520.0 / 2970.0 55.72 / 3025.72 1190.805 / 1190.805 Weight last 48 hrs Weight 158.757 kg Physical Exam Const: COMMON NORMALS: no acute distress OTHER: Intubated, sedated HENMT: COMMON NORMALS: normocephalic HEAD & SCALP: normocephalic Neck/C-Spine: COMMON NORMALS: no JVD Resp: COMMON NORMALS: normal respiratory effort, No retractions and No use of accessory muscles AUSCULTATION: diminished lung sounds on the left Cardio: COMMON NORMALS: no JVD, regular rate, regular rhythm, S1 normal heart sound present and S2 normal heart sound present RATE: regular rate RHYTHM: regular rhythm HEART SOUNDS: S1 normal heart sound present and S2 normal heart sound present GI: COMMON NORMALS: Normal to inspection, nondistended, normoactive bowel sounds present, Soft to palpation, non-tender, No hepatosplenomegaly present, no masses and no bruits PALPATION: Yes Soft to palpation and Yes No hepatosplenomegaly present Extremity: COMMON NORMALS: capillary refill normal, no clubbing, cyanosis or edema, no calf tenderness and no pedal edema Psych: OTHER: Patient is intubated sedated Urinary Catheter Management^: Coude: Cath Placed During This Visit: yes Reason for Continuing Indwelling Catheter: Accurate Measurement of Urinary Output in Critically Ill Patients Urinary Catheter Date of Insertion: 12/01/19 Urinary Catheter Time of Insertion: 18:00 Sepsis: Is patient septic: Yes Focused sepsis exam performed: Yes Date exam was performed: 12/02/19 Time exam was performed: 12:11 Data : 12/02/19 04:16 12/02/19 11:16 Micro: Microbiology 12/01/19 10:55 Blood Culture - Preliminary Blood NEGATIVE TO DATE 12/01/19 10:39 Blood Culture - Preliminary Blood NEGATIVE TO DATE 12/01/19 16:30 Gram Stain - Final Sputum - Endotracheal Tube Aspirate 12/01/19 18:45 Bacterial Antigens - Final Urine,Voided A&P Assessment and plan (1) Acute respiratory failure with hypoxia: -Acute hypoxic respiratory failure secondary to left-sided pneumonia, with severe sepsis, acute renal failure, multiorgan dysfunction, with evidence of acute respiratory distress syndrome -CT of the chest shows dense pneumonia in the left upper and left lower lobes with additional patchy bilateral areas of consolidation Plan: -Admitted to the ICU -Mechanical ventilation, minimize PEEP, minimize FiO2 -Propofol and fentanyl for sedation -Protonix for GI prophylaxis, Lovenox for DVT prophylaxis -Broad-spectrum antibiotics will change to Zyvox instead of vancomycin, and Primaxin, added azithromycin for atypical coverage, cover for healthcare associated pneumonia as he was admitted 3 months ago -Continue gentle IV hydration given acute renal failure, hold nephrotoxic agents, monitor urine output -Patient did not respond to Lasix yesterday, hold off on diuresis -Maintain map greater than 65, 2 peripheral IVs, no central line needed as patient's blood pressures are reasonable -Follow blood cultures, urine cultures, sputum cultures, -Start tube feeds -COVID-19 testing -Patient's status is stable, prognosis is guarded Status: Acute (2) Sepsis: Status: Acute Qualifiers: Sepsis acute organ dysfunction status: without acute organ dysfunction Sepsis type: sepsis due to unspecified organism Qualified Code(s): A41.9 - Sepsis, unspecified organism (3) ARDS (adult respiratory distress syndrome): -Given CT scan findings, patient's hypoxia, has evidence of acute respiratory distress syndrome secondary to pneumonia -Minimize FiO2, minimize tidal volumes -We will hold off on steroids for now -Continue nebulizer treatments Status: Acute (4) Pneumonia: Status: Acute Qualifiers: Laterality: left Lung location: upper lobe of lung Pneumonia type: due to unspecified organism Qualified Code(s): J18.9 - Pneumonia, unspecified organism (5) Acute renal failure: -Creatinine up to 4, urine output 180 cc, evidence of acute tubular necrosis, likely secondary to severe sepsis -Nephrology has been consulted, urine studies, renal ultrasound, maintain map greater than 85 Status: Acute (6) Multiorgan failure: -Creatinine up to 4, INR up to 1.35, mild transaminitis AST 54, ALT 20, T bili 1.8, CK 554, CRP 326, pro-Eliud 10, albumin 3 Status: Acute (7) CHF (congestive heart failure): Status: Acute Qualifiers: Heart failure chronicity: acute on chronic Heart failure type: unspecified Qualified Code(s): I50.9 - Heart failure, unspecified (8) Acquired urinary meatal stenosis: Status: Acute (9) Hypertension: Status: Chronic Qualifiers: Hypertension type: essential hypertension Qualified Code(s): I10 - Essential (primary) hypertension (10) Diabetes: Low-dose sliding scale Status: Chronic Qualifiers: Diabetes mellitus type: type 2 Diabetes mellitus care home insulin use: with care home use Diabetes mellitus complication status: with circulatory complication (11) OPAL (obstructive sleep apnea): Status: Acute (12) Morbid (severe) obesity due to excess calories: Status: Acute Attestations Medical Necessity Statement*: Patient requires hospitalization, for acute respiratory failure with hypoxia, multiorgan dysfunction, renal failure, acute respiratory distress syndrome Coding Level of Care Code Acute Global Chief Creative Officer for [facility] Diagnoses Acute respiratory failure with hypoxia J96.01 Sepsis A41.9 Sepsis acute organ dysfunction status: without acute organ dysfunction Sepsis type: sepsis due to unspecified organism ARDS (adult respiratory distress syndrome) J80 Pneumonia J18.9 Laterality: left Lung location: upper lobe of lung Pneumonia type: due to unspecified organism Acute renal failure N17.9 Multiorgan failure CHF (congestive heart failure) I50.9 Heart failure chronicity: acute on chronic Heart failure type: unspecified Acquired urinary meatal stenosis Hypertension I10 Hypertension type: essential hypertension Diabetes E11.9 Diabetes mellitus type: type 2 Diabetes mellitus buttermaker continuous churn insulin use: with buttermaker continuous churn use Diabetes mellitus complication status: with circulatory complication OPAL (obstructive sleep apnea) G47.33 Morbid (severe) obesity due to excess calories E66.01 Sepsis Event Note Evaluation Current stage of sepsis: severe sepsis Focused Exam Vital Signs Temp Pulse Resp BP Pulse Ox 12/02/19 11:42 76 16 98 12/02/19 11:27 16 12/02/19 11:00 91 135/77 98 12/02/19 10:00 91 134/73 99 12/02/19 09:00 89 141/73 100 12/02/19 08:46 16 12/02/19 08:44 72 16 98 12/02/19 08:00 83 141/57 94 12/02/19 07:00 99.3 F 83 123/64 97 12/02/19 06:00 84 19 H 129/65 100 12/02/19 05:00 99.8 F H 87 16 129/65 100 12/02/19 04:00 100.0 F H 76 114/55 96 12/02/19 03:47 16 12/02/19 02:00 99.8 F H 75 16 117/50 93 Respiratory exam: Present decreased breath sounds Capillary refill: < 3 Seconds Peripheral pulse strength: 2+ Slightly Diminished Peripheral pulse location: Pedal Skin exam: normal turgor Date exam was performed: 12/02/19 Time exam was performed: 12:12 Problem List (1) Acquired urinary meatal stenosis: Status: Acute (2) Acute respiratory failure with hypoxia: Status: Acute (3) Sepsis: Status: Acute (4) CHF (congestive heart failure): Status: Acute (5) Hypertension: Status: Chronic (6) Diabetes: Status: Chronic (7) Pneumonia: Status: Acute (8) Acute renal failure: Status: Acute (9) Multiorgan failure: Status: Acute (10) OPAL (obstructive sleep apnea): Status: Acute (11) Morbid (severe) obesity due to excess calories: Status: Acute (12) ARDS (adult respiratory distress syndrome): Status: Acute
[2019-12-02 18:09] LABS: Glucose Point of Care 64 mg/dL (70-110)
[2019-12-02] MEDS: propofol 1,000 MG/100 ML INJ 33.3 MG IV (19:38)
[2019-12-02] MEDS: acetaminophen 325 mg Tablet 650 MG PO (20:18)
[2019-12-02 20:48] LABS: Glucose Point of Care 83 mg/dL (70-110)
[2019-12-03] VITALS (54 sets, daily range): BP systolic 82–118; BP diastolic 41–62; PULSE 77–101; RESP 16–18; TEMP 36.7–37.6; O2SAT 91–100
[2019-12-03] MEDS: ipratropium-albuterol 3 mL Neb INHALATION ×8 (00:05→23:24)
[2019-12-03] MEDS: linezolid premix 600 MG/300 ML PREMIX 300 MG IV ×3 (00:05→23:22)
[2019-12-03 00:52] LABS: Lactic Sepsis W/Reflex 1.8 mmol/L (0.5-2.2)
--- NOTE | 2019-12-03 01:39 | PC.NURSE ---
Oliguria total of 7ml of urine output on patient since start of shift at 1900. bladder scanner preformed with results of 38ml of urine in bladder.
[2019-12-03] MEDS: propofol 1,000 MG/100 ML INJ 23.8 MG IV ×3 (03:05→12:34)
[2019-12-03 03:48] LABS: Basophils % 0.1 %; Hematocrit 32.2 % (42.0-52.0); Hemoglobin 9.2 g/dL (11.7-16.6); Lymphocytes # 0.5 10^3/uL (0.8-4.8); Lymphocytes % 5.4 %; Mean Corpuscular HGB Conc 28.6 g/dL (30.0-36.0); Mean Corpuscular Hemoglobin 24.5 pg (28.0-34.0); Mean Corpuscular Volume 85.9 fL (80-94); Mean Platelet Volume 11.4 fL (7.4-10.4); Monocytes # 0.6 10^3/uL (0.2-0.9); Monocytes % 6.6 %; Neutrophils # 7.4 10^3/uL (1.8-7.7); Neutrophils % 87.2 %; Nucleated Red Blood Cells % 0 %; Platelet Count 187 10^3/cmm (130-400); Red Blood Count 3.75 10^6/uL (4.1-5.3); Red Cell Distribution Width 17.2 % (12.1-15.1); White Blood Count 8.5 10^3/uL (4.0-10.0)
[2019-12-03 04:21] LABS: Procalcitonin 11.12 ng/mL (0-0.5)
[2019-12-03 04:25] LABS: Glucose Point of Care 105 mg/dL (70-110)
[2019-12-03 04:26] LABS: C Reactive Protein 338.8 mg/L (0.0-4.9)
[2019-12-03 04:38] LABS: Alanine Aminotransferase 23 U/L (0-41); Albumin Level 2.4 g/dL (3.5-5.2); Alkaline Phosphatase 178 IU/L (40-130); Anion Gap 21.3 (5-19); Blood Urea Nitrogen 51 mg/dL (6-20); Carbon Dioxide 24 mmol/L (22-29); Chloride 94 mmol/L (98-107); Globulin 4.1 g/dL (1.3-4.6); Glomerular Filtration Rate 11.7 mL/min (90-130); Glucose 106 mg/dL (65-115); Osmolality Calculated 281 mOsm/kg (285-295); Phosphorus 5.6 mg/dL (2.5-4.5); Potassium 3.3 mmol/L (3.5-5.1); Sodium 136 mmol/L (136-145); Total Bilirubin 1.7 mg/dL (0.15-1.2); Total Protein 6.5 g/dL (6.6-8.7)
[2019-12-03 04:38] LABS: ABG PH Result 7.36 (7.35-7.45); Arterial Blood Gas Hematocrit 32.2 % (42-52); Base Excess ABG 2.5 mmol/L (-2.0-2.0); Blood Gas Allen Test Pos; Blood Gas Sample Site Radial, right; Blood Gas Sample Type Arterial; Blood Gas Tidal Volume 0.5; HCO3 ABG 28.5 mmol/L (22-26); Oxygen Device VENT; PO2 ABG 92.7 mmHg (80.0-100.0)
[2019-12-03 04:45] LABS: Aspartate Amino Transferase 68 U/L (0-40); Calcium 8.3 mg/dL (8.5-10.5)
[2019-12-03 06:14] LABS: Glucose Point of Care 88 mg/dL (70-110)
[2019-12-03 06:14] LABS: Glucose Point of Care 105 mg/dL (70-110)
--- NOTE | 2019-12-03 07:00 | XR_ITS ---
WS: [id number] PORTABLE CHEST HISTORY: sob COMPARISON: 12/01/2019 Endotracheal and nasogastric tubes remain in good position. Tip of the endotracheal tube ends approxi mately 7 cm above the jonnathan and should not be retracted further. Lung volumes are decreased. Significant improvement in aeration of the RIGHT upper lobe. Persistent l inear atelectasis now present. There is new consolidation posterior to the LEFT heart. No pleural eff usion or pneumothorax. Cardiac size: Mildly enlarged cardiac silhouette. Mediastinum/Aorta: Normal mediastinum. No osseous abnormality seen. XR/XR chest 1V portable 10124 IMPRESSION: 1. Resolution of the RIGHT upper lobe collapse. Minimal atelectasis in the RIG HT upper lobe. 2. Worsening pneumonia or atelectasis posterior to LEFT heart. Pneumonia was s een in the LEFT upper and LEFT lower lobes on a recent CT. 3. Nasogastric and endotracheal tubes remain in good position. Endotracheal tu be should not be retracted further.
--- NOTE | 2019-12-03 07:39 | P.PN_ITS ---
Subjective Subjective: Interval history: sedated, intubated. Medications: Reviewed: Yes Medication Review Details: Current Medications Acetaminophen (Tylenol) 650 mg PO Q4H PRN PRN Reason: MILD PAIN OR INCREASE TEMP Last Admin: 12/02/19 20:18 Dose: 650 mg Documented by: Albuterol Sulfate (Ventolin) 2 - 4 puff INHALATION QID.RESPIRATORY PRN PRN Reason: Shortness Of Breath Albuterol/Ipratropium (Duoneb) 3 ml INHALATION Q4H.RESPIRATORY NESSA Last Admin: 12/03/19 07:35 Dose: 3 ml Documented by: Albuterol/Ipratropium (Duoneb) 3 ml INHALATION Q4H.RESPIRATORY NESSA Last Admin: 12/02/19 03:46 Dose: Not Given Documented by: Allopurinol (Zyloprim) 100 mg PO DAILY PENDING SALE TO [facility] Aspirin (Aspirin Chewable) 81 mg PO DAILY PENDING SALE TO [facility] Last Admin: 12/02/19 10:20 Dose: 81 mg Documented by: Atenolol (Tenormin) 100 mg PO DAILY PENDING SALE TO [facility] Last Admin: 12/02/19 10:23 Dose: Not Given Documented by: Atorvastatin Calcium (Lipitor) 80 mg PO DAILY PENDING SALE TO [facility] Last Admin: 12/02/19 10:20 Dose: 80 mg Documented by: Dextrose (D50w) 25 ml IVP ONCE PRN; Protocol PRN Reason: hypoglycemia protocol Dextrose (D50w) 50 ml IVP PRN PRN; Protocol PRN Reason: hypoglycemia protocol Enoxaparin Sodium (Lovenox) 40 mg SUBCUT Q24H PENDING SALE TO [facility] Last Admin: 12/02/19 11:44 Dose: 40 mg Documented by: Glucagon (Glucagen) 1 mg IM ONCE PRN; Protocol PRN Reason: Adult Acute Hypoglycemia Prot. Propofol (Diprivan) 1,000 mg in 100 mls @ 0 mls/hr IV .Q0M PENDING SALE [facility]; Protocol Last Admin: 12/03/19 03:05 Dose: 25 mcg/kg/min, 23.8 mls/hr Documented by: Fentanyl 1,000 mcg/ Sodium (Chloride) 100 mls @ 0 mls/hr IV .Q0M PENDING SALE TO [facility]; Protocol Last Titration: 12/02/19 22:50 Dose: 75 mcg/hr, 7.5 mls/hr Documented by: Dextrose (D5w) 500 mls @ 100 mls/hr IV ONCE PRN; Protocol PRN Reason: Adult Acute Hypoglycemia Prot Dextrose/Sodium Chloride (Dextrose 5%-Sod Chloride 0.9%) 1,000 mls @ 75 mls/hr IV .[id number] PENDING SALE TO [facility] Last Admin: 12/02/19 20:21 Dose: 75 mls/hr Documented by: Norepinephrine Bitartrate 4 mg (/ Dextrose) 254 mls @ 0 mls/hr IV .Q0M NESSA; Protocol Linezolid (Zyvox Premix) 600 mg in 300 mls @ 300 mls/hr IV Q12H NESSA; Protocol Last Infusion: 12/03/19 02:59 Dose: Infused Documented by: Azithromycin 500 mg/ Sodium (Chloride) 250 mls @ 250 mls/hr IV Q24H PENDING SALE TO [facility]; Protocol Last Admin: 12/02/19 10:21 Dose: 250 mls/hr Documented by: Imipenem/Cilastatin Sodium 250 (mg/ Sodium Chloride) 100 mls @ 200 mls/hr IV Q6H [facility]ENDING [facility]; Protocol Last Admin: 12/03/19 02:55 Dose: 200 mls/hr Documented by: Insulin Aspart (Novolog) 0 unit SUBCUT TIDWM PENDING S[facility] TO [facility]; Protocol Last Admin: 12/02/19 17:14 Dose: Not Given Documented by: Montelukast Sodium (Singulair) 10 mg PO DAILY PENDING SALE TO [facility] Last Admin: 12/02/19 10:20 Dose: 10 mg Documented by: Non-Formulary Medication (Insulin Degludec [Tresiba Flextouch U-200]) 20 unit SUBCUT DAILY PENDING SALE TO [facility] Non-Formulary Medication (Mometasone-Formoterol [Dulera]) 2 puff INHALATION BID PENDING SALE TO [facility] Last Admin: 12/01/19 16:50 Dose: Not Given Documented by: Ondansetron HCl (Zofran) 4 mg IVP Q8H PRN PRN Reason: vomiting, or N/V if npo Pantoprazole Sodium (Protonix) 40 mg IVP DAILY PENDING [facility]ALE TO [facility] Last Admin: 12/02/19 10:21 Dose: 40 mg Documented by: Vitals/I&O/Wt Last Vital Signs Temp 98.6 F 12/03/19 06:00 Pulse 78 12/03/19 06:00 Resp 16 12/03/19 06:05 BP 108/54 12/03/19 06:00 Pulse Ox 99 12/03/19 06:00 12/02/19 12/03/19 12/03/19 22:59 06:59 14:59 Intake Total 1434.910 / 3125.715 400.000 / 3525.715 Output Total 107 / 107 30 / 137 Balance 1327.910 / 3018.715 370.000 / 3388.715 Weight last 48 hrs Weight 158.757 kg Physical Exam Narrative: EXAM NARRATIVE: i did not eneter the room due to COVID-19 pandemic. this was to prevent infection spread, and to limit use of PPE. also to limit risk of infecting telenephrology computer. -exam is as per exam told by RECEIVING LEAD. i saw pt through window vent- fio2=30%, TV 500, PEEP 10. propofol sedation morbidly obese intubated and sedated minimal uop- under 100 ml/day heent- nc/at neck- obese lungs crackles b/l heart reg abd soft, nt, nd, +BS ext b/l edema + silva neuro- sedated Urinary Catheter Management^: Coude: Cath Placed During This Visit: yes Reason for Continuing Indwelling Catheter: Accurate Measurement of Urinary Output in Critically Ill Patients Urinary Catheter Date of Insertion: 12/01/19 Urinary Catheter Time of Insertion: 18:00 Data : 12/03/19 03:30 12/03/19 03:30 Micro: Microbiology 12/01/19 16:15 MRSA Culture - Final Nose 12/01/19 10:55 Blood Culture - Preliminary Blood NEGATIVE TO DATE 12/01/19 10:39 Blood Culture - Preliminary Blood NEGATIVE TO DATE 12/01/19 16:30 Gram Stain - Final Sputum - Endotracheal Tube Aspirate 12/01/19 18:45 Bacterial Antigens - Final Urine,Voided A&P Additional A&P Information 49 yr old man morbid obesity, EF of 68% and per Cardiology- October 2019- no diastolic dysfunction, obesity, OPAL, DM, htn, gout, here w/ pna 1. pna- renal dose abx as GFR <10 -agree w/ eval for COVID-19- however, imaging looks like multilobular PNA -pt has sepsis- now BP improved- off pressers wbc down to 8.5 2. TEDDY- b/l cr 1. likely atn -check renal us -urine studies noted s/p fluid resuscitation- only 137 ml uop -bp now stable -ck 554- not rhabdo induced renal failure monitor in and out -risks include pt was on gerry-i and lasix at home -no emergent need for dialysis -will give lasix and potassium -if uop and cr do not improve, will likely need dialysis in am 3. lactic acidosis from TEDDY, sepsis, and metformin pt has underlying resp acidosis- hypercapneic- OPAL -likely met alkalosis from effective intravscular depletion- as pH 7.36/50/92 on fio2 of 30% 4. anemia- hgb down to 9.2- epo not effective w/ ki and sepsis 5. hypokalemia- likely gi losses- monitor repeat chem and gently replete 6. normal tsh sepsis and teddy- monitor for dialysis needs. dose all meds for gfr < 5 Attestations Medical Necessity Statement*: teddy, vdrf, pna Time Spent in Patient Care: Greater than 35 minutes Coding Level of Care Code Acute Supervisor [facility] for [facility]
[2019-12-03] MEDS: potassium chloride oral liq 20 mEq/15 mL UDC 40 MEQ PO (07:49)
[2019-12-03] MEDS: allopurinol 300 mg Tablet 100 MG PO (07:50)
[2019-12-03] MEDS: FUROsemide 10 mg/mL SDV 4mL 40 MG IVP (07:50)
[2019-12-03] MEDS: pantoprazole 40 mg SDV IVP (07:50)
[2019-12-03] MEDS: montelukast sodium 10 mg Tablet PO (07:51)
[2019-12-03] MEDS: aspirin 81 mg Chew Tablet PO (07:51)
[2019-12-03] MEDS: atorvastatin 40 mg Tablet 80 MG PO (07:51)
[2019-12-03] MEDS: dextrose 5%-sod chloride 0.9% 1,000 ML 75 ML IV ×2 (07:52→21:01)
[2019-12-03 08:47] LABS: Glucose Point of Care 61 mg/dL (70-110)
[2019-12-03 09:20] LABS: Creatine Phosphokinase 825 U/L (39-308)
[2019-12-03] MEDS: azithromycin 500 MG in sodium chloride 0.9% 250 ML 250 MG IV (09:51)
[2019-12-03] MEDS: dextrose 50% syringe 50 mL IVP (09:57)
[2019-12-03 10:07] LABS: Glucose Point of Care 66 mg/dL (70-110)
[2019-12-03] MEDS: enoxaparin 40 mg/0.4 mL Syringe SUBCUT (11:19)
[2019-12-03 11:56] LABS: Glucose Point of Care 85 mg/dL (70-110)
--- NOTE | 2019-12-03 12:39 | PM.PN ---
Subjective Subjective: Interval history: This morning patient remains intubated, sedated on the ventilator, remains afebrile overnight, normotensive, is down to 30% FiO2 PEEP of 10, good tidal volumes, urine output remains lackluster at 137 cc, creatinine up to up to 5.3, on propofol and fentanyl drip, receiving tube feeds, has had some residual, requiring holding of tube feeds, continues to low blood sugars despite being on D5 fluids, and tube feeds, culture so far no significant growth, COVID-19 testing still is pending, chest x-ray this morning shows resolution of right upper lobe collapse, pneumonia on the left side Vitals/I&O/Wt Last Vital Signs Temp 98.1 F 12/03/19 07:00 Pulse 90 12/03/19 12:00 Resp 16 12/03/19 11:09 BP 108/49 12/03/19 12:00 Pulse Ox 94 12/03/19 12:00 12/02/19 12/03/19 12/03/19 22:59 06:59 14:59 Intake Total 1434.910 / 3375.715 500.000 / 3875.715 1146.375 / 1146.375 Output Total 107 / 107 30 / 137 Balance 1327.910 / 3268.715 470.000 / 3738.715 1146.375 / 1146.375 Physical Exam Const: COMMON NORMALS: no acute distress GENERAL APPEARANCE: cooperative and comfortable OTHER: Intubated, sedated HENMT: COMMON NORMALS: normocephalic HEAD & SCALP: normocephalic Eye: COMMON NORMALS: Equal, round and reactive pupils present PUPIL: Yes Equal, round and reactive pupils present Neck/C-Spine: COMMON NORMALS: full ROM, no lymphadenopathy, no JVD and Thyroid normal THYROID: Thyroid normal Lymph: LYMPHATIC: no lymphadenopathy noted Resp: COMMON NORMALS: normal respiratory effort, No retractions and No use of accessory muscles AUSCULTATION: diminished lung sounds on the left Cardio: COMMON NORMALS: no JVD, regular rate, regular rhythm, S1 normal heart sound present, S2 normal heart sound present, No gallops present (Cardio), No clicks present (Cardio) and No murmurs present (Cardio) RATE: regular rate RHYTHM: regular rhythm HEART SOUNDS: S1 normal heart sound present and S2 normal heart sound present GI: COMMON NORMALS: Normal to inspection, nondistended, normoactive bowel sounds present, Soft to palpation, non-tender, No hepatosplenomegaly present, no masses and no bruits PALPATION: Yes Soft to palpation and Yes No hepatosplenomegaly present Extremity: COMMON NORMALS: normal to inspection, full ROM, capillary refill normal, no clubbing, cyanosis or edema and no calf tenderness Psych: OTHER: Patient is intubated sedated Urinary Catheter Management^: Coude: Cath Placed During This Visit: yes Reason for Continuing Indwelling Catheter: Accurate Measurement of Urinary Output in Critically Ill Patients Urinary Catheter Date of Insertion: 12/01/19 Urinary Catheter Time of Insertion: 18:00 Data : 12/03/19 03:30 12/03/19 03:30 Micro: Microbiology 12/01/19 16:30 Gram Stain - Final Sputum - Endotracheal Tube Aspirate Sputum Culture - Preliminary 12/01/19 16:15 MRSA Culture - Final Nose 12/01/19 10:55 Blood Culture - Preliminary Blood NEGATIVE TO DATE 12/01/19 10:39 Blood Culture - Preliminary Blood NEGATIVE TO DATE 12/01/19 18:45 Bacterial Antigens - Final Urine,Voided A&P Assessment and plan (1) Acute respiratory failure with hypoxia: -Acute hypoxic respiratory failure secondary to left-sided pneumonia, with severe sepsis, acute renal failure, multiorgan dysfunction, with evidence of acute respiratory distress syndrome -CT of the chest shows dense pneumonia in the left upper and left lower lobes with additional patchy bilateral areas of consolidation -Chest x-ray this morning shows resolution of right upper lobe collapse, continue left-sided pneumonia, white blood cell count down to 8.5, pro-Eliud uptrend towards 11.12, culture so far no growth, COVID-19 testing pending Plan: -Admitted to the ICU -Mechanical ventilation, minimize PEEP, minimize FiO2 -Propofol and fentanyl for sedation -Protonix for GI prophylaxis, Lovenox for DVT prophylaxis -Broad-spectrum antibiotics Zyvox, and Primaxin, azithromycin for atypical coverage, cover for healthcare associated pneumonia as he was admitted 3 months ago -Continue gentle IV hydration given acute renal failure, hold nephrotoxic agents, monitor urine output -Patient did not respond to Lasix on Sunday, nephrology will do a trial of Lasix today -Maintain map greater than 65, 2 peripheral IVs, no central line needed as patient's blood pressures are reasonable -Follow blood cultures, urine cultures, sputum cultures, -Continue tube feeds, has had some residual, will do KUB -COVID-19 testing -Patient's status is stable, prognosis is guarded Status: Acute (2) Sepsis: Status: Acute Qualifiers: Sepsis acute organ dysfunction status: without acute organ dysfunction Sepsis type: sepsis due to unspecified organism Qualified Code(s): A41.9 - Sepsis, unspecified organism (3) ARDS (adult respiratory distress syndrome): -Given CT scan findings, patient's hypoxia, has evidence of acute respiratory distress syndrome secondary to pneumonia -Minimize FiO2, minimize tidal volumes -We will hold off on steroids for now -Continue nebulizer treatments Status: Acute (4) Pneumonia: Status: Acute Qualifiers: Laterality: left Lung location: upper lobe of lung Pneumonia type: due to unspecified organism Qualified Code(s): J18.9 - Pneumonia, unspecified organism (5) Acute renal failure: -Creatinine up to 5.3, urine output minimal, evidence of acute tubular necrosis, likely secondary to severe sepsis -Nephrology has been consulted, urine studies, renal ultrasound, maintain map greater than 85 Status: Acute (6) Multiorgan failure: -Creatinine up to 5.3, elevated transaminitis, elevated INR Status: Acute (7) CHF (congestive heart failure): Status: Acute Qualifiers: Heart failure chronicity: acute on chronic Heart failure type: unspecified Qualified Code(s): I50.9 - Heart failure, unspecified (8) Acquired urinary meatal stenosis: Status: Acute (9) Hypertension: Status: Chronic Qualifiers: Hypertension type: essential hypertension Qualified Code(s): I10 - Essential (primary) hypertension (10) Diabetes: Low-dose sliding scale Status: Chronic Qualifiers: Diabetes mellitus type: type 2 Diabetes mellitus long term care administrator insulin use: with long-term use Diabetes mellitus complication status: with circulatory complication (11) OPAL (obstructive sleep apnea): Status: Acute (12) Morbid (severe) obesity due to excess calories: Status: Acute Attestations Medical Necessity Statement*: Patient requires continued hospitalization for acute respiratory failure, pneumonia, sepsis, multiorgan failure, acute kidney injury Coding Level of Care Code 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 [facility] Diagnoses Acute respiratory failure with hypoxia J96.01 Sepsis A41.9 Sepsis acute organ dysfunction status: without acute organ dysfunction Sepsis type: sepsis due to unspecified organism ARDS (adult respiratory distress syndrome) J80 Pneumonia J18.9 Laterality: left Lung location: upper lobe of lung Pneumonia type: due to unspecified organism Acute renal failure N17.9 Multiorgan failure CHF (congestive heart failure) I50.9 Heart failure chronicity: acute on chronic Heart failure type: unspecified Acquired urinary meatal stenosis Hypertension I10 Hypertension type: essential hypertension Diabetes E11.9 Diabetes mellitus type: type 2 Diabetes mellitus long term care administrator insulin use: with long-term use Diabetes mellitus complication status: with circulatory complication OPAL (obstructive sleep apnea) G47.33 Morbid (severe) obesity due to excess calories E66.01
[2019-12-03 15:00] LABS: Glucose Point of Care 100 mg/dL (70-110)
[2019-12-03 15:26] LABS: Coronavirus Lab Test PTC NOT DETECTED
[2019-12-03 17:09] LABS: Glucose Point of Care 89 mg/dL (70-110)
--- NOTE | 2019-12-03 17:20 | PC.NURSE ---
SHIFT UPDATE At 0800, feeding tube residual was checked and was 250ml. Tube feedings held for [address] Urena notified. At 0900, tube feedings still held for ultrasound to be NPO for 6 hours. Patient remains intubated and sedated, comfortably. Many secretions when suctioning. Patient will wake up when stimulated, however does not seem to follow commands. However, patient does try to talk. CBG has been low anywhere from 60s-80s. D5 NS @ 75 going. 1 amp of D50 given as well this shift. Physician aware. COVID test negative, however, physician would like 2nd test. 2nd test done and sent to lab. Ultrasound said they would not perform US until after 2nd covid test came back. Tube feedings restarted at 30cc/hr as patient has not been tolerating the tube feedings at 40 and 50cc/hr. Physician aware. Only 100cc urine out for this shift, tea colored and foul in odor. Q2H turn and reposition. Patient has DTI on left buttock. One bowel movement this shift, brown and liquid.
[2019-12-03 19:57] LABS: Glucose Point of Care 71 mg/dL (70-110)
[2019-12-03 20:10] LABS: Alanine Aminotransferase 24 U/L (0-41); Albumin Level 2.4 g/dL (3.5-5.2); Alkaline Phosphatase 153 IU/L (40-130); Aspartate Amino Transferase 100 U/L (0-40); Blood Urea Nitrogen 55 mg/dL (6-20); Calcium 7.5 mg/dL (8.5-10.5); Carbon Dioxide 25 mmol/L (22-29); Chloride 92 mmol/L (98-107); Globulin 3.7 g/dL (1.3-4.6); Glomerular Filtration Rate 11.2 mL/min (90-130); Glucose 65 mg/dL (65-115); Osmolality Calculated 275 mOsm/kg (285-295); Sodium 134 mmol/L (136-145); Total Bilirubin 1.4 mg/dL (0.15-1.2); Total Protein 6.1 g/dL (6.6-8.7)
--- NOTE | 2019-12-03 20:30 | PC.NURSE ---
Dr Araujo updated on BP readings of in 90s/40s with MAP 58-61, orders received to start levophed and wean propofol drip as tolerated.
[2019-12-03] MEDS: dextrose 50% syringe 50 mL 25 ML IVP ×2 (20:54→23:35)
[2019-12-03] MEDS: propofol 1,000 MG/100 ML INJ 14.3 MG IV (21:01)
[2019-12-04] VITALS (83 sets, daily range): BP systolic 84–129; BP diastolic 44–79; PULSE 62–110; RESP 15–19; TEMP 36.6–37.1; O2SAT 90–100
[2019-12-04] MEDS: propofol 1,000 MG/100 ML INJ 28.6 MG IV ×2 (03:22→07:16)
[2019-12-04] MEDS: ipratropium-albuterol 3 mL Neb INHALATION ×5 (03:32→21:00)
[2019-12-04 03:35] LABS: Basophils % 0.3 %; Eosinophils % 0.3 %; Lymphocytes # 0.6 10^3/uL (0.8-4.8); Lymphocytes % 6.6 %; Mean Corpuscular HGB Conc 27.3 g/dL (30.0-36.0); Mean Corpuscular Hemoglobin 23.6 pg (28.0-34.0); Mean Corpuscular Volume 86.4 fL (80-94); Mean Platelet Volume 11.3 fL (7.4-10.4); Monocytes # 0.7 10^3/uL (0.2-0.9); Monocytes % 7.8 %; Neutrophils % 84.6 %; Nucleated Red Blood Cells % 0 %; Platelet Count 240 10^3/cmm (130-400); Red Blood Count 3.82 10^6/uL (4.1-5.3); Red Cell Distribution Width 17.4 % (12.1-15.1); White Blood Count 9.4 10^3/uL (4.0-10.0)
[2019-12-04 04:02] LABS: Procalcitonin 9.83 ng/mL (0-0.5)
[2019-12-04 04:03] LABS: C Reactive Protein 320.8 mg/L (0.0-4.9)
[2019-12-04 04:14] LABS: Alanine Aminotransferase 25 U/L (0-41); Albumin Level 2.5 g/dL (3.5-5.2); Alkaline Phosphatase 174 IU/L (40-130); Anion Gap 23.1 (5-19); Aspartate Amino Transferase 108 U/L (0-40); Blood Urea Nitrogen 57 mg/dL (6-20); Carbon Dioxide 24 mmol/L (22-29); Chloride 93 mmol/L (98-107); Globulin 4.2 g/dL (1.3-4.6); Glomerular Filtration Rate 9.9 mL/min (90-130); Glucose 114 mg/dL (65-115); Magnesium 2.2 mg/dL (1.7-2.3); Osmolality Calculated 281 mOsm/kg (285-295); Potassium 4.1 mmol/L (3.5-5.1); Sodium 136 mmol/L (136-145); Total Bilirubin 1.4 mg/dL (0.15-1.2); Total Protein 6.7 g/dL (6.6-8.7)
[2019-12-04 04:24] LABS: Creatine Phosphokinase 1929 U/L (39-308); Phosphorus 8.3 mg/dL (2.5-4.5)
[2019-12-04 04:52] LABS: Cortisol Random 20.22 mcg/dL (2.47-19.5)
[2019-12-04 05:07] LABS: ABG PCO2 50.8 mmHg (35-45); ABG PH Result 7.32 (7.35-7.45); Base Excess ABG -0.3 mmol/L (-2.0-2.0); Blood Gas Allen Test Pos; Blood Gas Sample Site Radial, left; Blood Gas Sample Type Arterial; Blood Gas Tidal Volume 0.5; HCO3 ABG 26.3 mmol/L (22-26); Oxygen Device VENT; PO2 ABG 67.7 mmHg (80.0-100.0)
[2019-12-04 06:22] LABS: Glucose Point of Care 94 mg/dL (70-110)
[2019-12-04 06:22] LABS: Glucose Point of Care 252 mg/dL (70-110)
[2019-12-04 06:22] LABS: Glucose Point of Care 324 mg/dL (70-110)
[2019-12-04 06:22] LABS: Glucose Point of Care > 600 mg/dL (70-110)
[2019-12-04 06:22] LABS: Glucose Point of Care 121 mg/dL (70-110)
[2019-12-04 06:22] LABS: Glucose Point of Care 53 mg/dL (70-110)
[2019-12-04 06:22] LABS: Glucose Point of Care 172 mg/dL (70-110)
[2019-12-04 06:22] LABS: Glucose Point of Care > 600 mg/dL (70-110)
[2019-12-04 06:22] LABS: Glucose Point of Care 74 mg/dL (70-110)
[2019-12-04 06:22] LABS: Glucose Point of Care 53 mg/dL (70-110)
[2019-12-04 06:22] LABS: Glucose Point of Care 102 mg/dL (70-110)
[2019-12-04 06:22] LABS: Glucose Point of Care 67 mg/dL (70-110)
[2019-12-04 06:22] LABS: Glucose Point of Care 105 mg/dL (70-110)
[2019-12-04 06:22] LABS: Glucose Point of Care 60 mg/dL (70-110)
--- NOTE | 2019-12-04 07:00 | XR_ITS ---
WS: [id number] PORTABLE CHEST HISTORY: sob COMPARISON: 12/03/2019 Nasogastric tube and endotracheal tubes are in good position. Lung volumes are decreased. Increasing areas of consolidation throughout the entire LEFT lung. Coarse niki markings throughout the RIGHT lung have also progressed. No pleural effusion or pneumothorax. Cardiac size: Mildly enlarged cardiac silhouette. Mediastinum/Aorta: Normal mediastinum. No osseous abnormality seen. XR/XR chest 1V portable [id number] IMPRESSION: 1. Progression of consolidation throughout the LEFT lung since the prior study . Likely worsening pneumonia with areas of atelectasis. 2. Worsening scattered coarse opacifications throughout the RIGHT lung since t he prior study. 3. Endotracheal and nasogastric tubes remain in good position.
[2019-12-04 07:25] LABS: Glucose Point of Care 89 mg/dL (70-110)
[2019-12-04] MEDS: dexmedetomidine 400 MCG in sodium chloride 0.9% (100 ml) 100 ML 21.3 MCG IV ×3 (08:26→23:40)
[2019-12-04] MEDS: atorvastatin 40 mg Tablet 80 MG PO (08:34)
[2019-12-04] MEDS: allopurinol 300 mg Tablet 100 MG PO (08:34)
[2019-12-04] MEDS: aspirin 81 mg Chew Tablet PO (08:34)
[2019-12-04] MEDS: atenolol 50 mg Tablet 100 MG PO (08:35)
[2019-12-04] MEDS: montelukast sodium 10 mg Tablet PO (08:35)
[2019-12-04] MEDS: pantoprazole 40 mg SDV IVP (08:36)
--- NOTE | 2019-12-04 10:22 | PC.NURSE ---
Pt was weighed with SCD machine OFF and urine bag OFF the bed. bed linen and 4 pillows on the bed at time.
[2019-12-04] MEDS: dextrose 5%-sod chloride 0.9% 1,000 ML 75 ML IV (10:42)
--- NOTE | 2019-12-04 11:05 | PM.PN ---
Subjective Subjective: Interval history: Remains intubated and vented. FiO2 30% and PEEP of 10. No pressors. Starting to sound wet and has had a 14lb weight gain. Poor urine output. Medications: Reviewed: Yes Medication Review Details: Current Medications Acetaminophen (Tylenol) 650 mg PO Q4H PRN PRN Reason: MILD PAIN OR INCREASE TEMP Last Admin: 12/02/19 20:18 Dose: 650 mg Documented by: Albuterol Sulfate (Ventolin) 2 - 4 puff INHALATION QID.RESPIRATORY PRN PRN Reason: Shortness Of Breath Albuterol/Ipratropium (Duoneb) 3 ml INHALATION Q4H.RESPIRATORY [facility] Last Admin: 12/03/19 07:35 Dose: 3 ml Documented by: Albuterol/Ipratropium (Duoneb) 3 ml INHALATION Q4H.RESPIRATORY [facility] Last Admin: 12/02/19 03:46 Dose: Not Given Documented by: Allopurinol (Zyloprim) 100 mg PO DAILY [facility] Aspirin (Aspirin Chewable) 81 mg PO DAILY [facility] Last Admin: 12/02/19 10:20 Dose: 81 mg Documented by: Atenolol (Tenormin) 100 mg PO DAILY [facility] Last Admin: 12/02/19 10:23 Dose: Not Given Documented by: Atorvastatin Calcium (Lipitor) 80 mg PO DAILY [facility] Last Admin: 12/02/19 10:20 Dose: 80 mg Documented by: Dextrose (D50w) 25 ml IVP ONCE PRN; Protocol PRN Reason: hypoglycemia protocol Dextrose (D50w) 50 ml IVP PRN PRN; Protocol PRN Reason: hypoglycemia protocol Enoxaparin Sodium (Lovenox) 40 mg SUBCUT Q24H [facility] Last Admin: 12/02/19 11:44 Dose: 40 mg Documented by: Glucagon (Glucagen) 1 mg IM ONCE PRN; Protocol PRN Reason: Adult Acute Hypoglycemia Prot. Propofol (Diprivan) 1,000 mg in 100 mls @ 0 mls/hr IV .Q0M [facility]; Protocol Last Admin: 12/03/19 03:05 Dose: 25 mcg/kg/min, 23.8 mls/hr Documented by: Fentanyl 1,000 mcg/ Sodium (Chloride) 100 mls @ 0 mls/hr IV .Q0M [facility]; Protocol Last Titration: 05/26/20 22:50 Dose: 75 mcg/hr, 7.5 mls/hr Documented by: Dextrose (D5w) 500 mls @ 100 mls/hr IV ONCE PRN; Protocol PRN Reason: Adult Acute Hypoglycemia Prot Dextrose/Sodium Chloride (Dextrose 5%-Sod Chloride 0.9%) 1,000 mls @ 75 mls/hr IV .[id number] [facility] Last Admin: 12/02/19 20:21 Dose: 75 mls/hr Documented by: Norepinephrine Bitartrate 4 mg (/ Dextrose) 254 mls @ 0 mls/hr IV .Q0M [facility]; Protocol Linezolid (Zyvox Premix) 600 mg in 300 mls @ 300 mls/hr IV Q12H [facility]; Protocol Last Infusion: 12/03/19 02:59 Dose: Infused Documented by: Azithromycin 500 mg/ Sodium (Chloride) 250 mls @ 250 mls/hr IV Q24H [facility]; Protocol Last Admin: 12/02/19 10:21 Dose: 250 mls/hr Documented by: Imipenem/Cilastatin Sodium 250 (mg/ Sodium Chloride) 100 mls @ 200 mls/hr IV Q6H [facility]; Protocol Last Admin: 12/03/19 02:55 Dose: 200 mls/hr Documented by: Insulin Aspart (Novolog) 0 unit SUBCUT TIDWM [facility]; Protocol Last Admin: 12/02/19 17:14 Dose: Not Given Documented by: Montelukast Sodium (Singulair) 10 mg PO DAILY [facility] Last Admin: 12/02/19 10:20 Dose: 10 mg Documented by: Non-Formulary Medication (Insulin Degludec [Tresiba Flextouch U-200]) 20 unit SUBCUT DAILY [facility] Non-Formulary Medication (Mometasone-Formoterol [Dulera]) 2 puff INHALATION BID [facility] Last Admin: 12/01/19 16:50 Dose: Not Given Documented by: Ondansetron HCl (Zofran) 4 mg IVP Q8H PRN PRN Reason: vomiting, or N/V if npo Pantoprazole Sodium (Protonix) 40 mg IVP DAILY [facility] Last Admin: 12/02/19 10:21 Dose: 40 mg Documented by: Vitals/I&O/Wt Last Vital Signs Temp 98.8 F 12/04/19 00:00 Pulse 97 12/04/19 08:29 Resp 16 12/04/19 08:29 BP 103/63 12/04/19 06:00 Pulse Ox 98 12/04/19 08:29 12/03/19 12/04/19 12/04/19 22:59 06:59 14:59 Intake Total 1377.475 / 2923.850 362.729 / 3286.579 1010.197 / 1010.197 Output Total 116 / 116 51 / 167 Balance 1261.475 / 2807.850 311.729 / 3119.579 1010.197 / 1010.197 Weight last 48 hrs Weight 164.767 kg Weight 163.701 kg Physical Exam Narrative: EXAM NARRATIVE: Exam performed with telemed with the aid of the bedside RN Intubated and vented HEENT: Wet mucosa, elevated jvp Lungs: Bilateral rhonchi, good air entry CVS: 1/2 heard Extremity: trace to 1+ edema Urinary Catheter Management^: Coude: Cath Placed During This Visit: yes Reason for Continuing Indwelling Catheter: Accurate Measurement of Urinary Output in Critically Ill Patients Urinary Catheter Date of Insertion: 12/01/19 Urinary Catheter Time of Insertion: 18:00 Data : 12/04/19 03:05 12/04/19 03:05 Micro: Microbiology 12/01/19 16:30 Gram Stain - Final Sputum - Endotracheal Tube Aspirate Sputum Culture - Final 12/02/19 10:45 Urine Culture - Preliminary Urine,Clean Catch 12/01/19 18:45 Urine Culture - Preliminary Urine,Clean Catch A&P Additional A&P Information 1. TEDDY - picture consistent with ATN, now progressively more oligoanuric - renal imaging still needed and will order a renal US - urine sodium 36, but no creatinine for FE Na - As he is becoming overtly hypervolemic we will need to dialyze him; still on rule out for COVID and ok to defer dialysis until this is completed - for line placement in the am and dialysis initiation - 3K, UF 2-3L - dose meds for eGFR < 15 2. Lytes look good 3. VDRF - stable vent settings - weaning as tolerated in the next 24-48hrs 4. Pneumonia - COVI rule out - Primaxin and Azithromycin 5. 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
[2019-12-04] MEDS: LORazepam 2 mg/mL INJ 1 mL IVP (11:10)
--- NOTE | 2019-12-04 11:20 | PC.NURSE ---
Tube feed started at 20ml/hr per Dr Archibald request. states to increase as pt tolerates.
[2019-12-04] MEDS: azithromycin 500 MG in sodium chloride 0.9% 250 ML 250 MG IV (12:45)
--- NOTE | 2019-12-04 12:58 | XR_ITS ---
WS: [id number] PORTABLE CHEST HISTORY: dialysis cath. Placement COMPARISON: 12/04/2019 Nasogastric and endotracheal tube remain in good position. Interval placement of a RIGHT central line . Central line terminates in the mid SVC. Lung volumes are decreased. Continued areas of consolidation over the LEFT lung have slightly improve d. Continued venous congestion. No pleural effusion or pneumothorax. Cardiac size: Mildly enlarged cardiac silhouette. Mediastinum/Aorta: Normal mediastinum. No osseous abnormality seen. XR/XR chest 1V portable [id number] IMPRESSION: 1. RIGHT central line has been placed with tip in the mid SVC. 2. Continued opacification throughout the LEFT lung.
--- NOTE | 2019-12-04 13:10 | PM.DIACAT ---
Procedure Note: Date of procedure: 12/04/19 Pre-op diagnosis: Acute kidney injury requiring dialysis Procedure Performed: IJ dialysis catheter Procedure: Name of the procedure: Right internal jugular hemodialysis catheter insertion under ultrasound guidance. Medications: Lidocaine 1% 5 mL. IV medications: Propofol and fentanyl Consent: Obtained Description of the procedure: The right IJ was identified under ultrasound guidance with collapsibility and lack of pulsatility. The site was prepared using sterile technique and the patient was positioned optimally. The skin, subcutaneous tissue was anesthetized with 1% lidocaine. The introducer needle was then advanced under direct ultrasound guidance to flashback was noted. Dark nonpulsatile blood was noted. The guidewire was advanced through the needle and confirmed to be in the internal jugular vein with ultrasound. Using Seldinger technique the right internal jugular hemodialysis catheter was inserted. The catheter was sutured in place. The insertion length was 16 cm. Complications: None Blood loss: 2 mL Chest x-ray: Pending Coding Level of Care Code Acute Third Rigger for Z[facility]ett
--- NOTE | 2019-12-04 13:12 | PM.CONSULT ---
Providers/Reason For Consult Consulting Physican/Specialty*: Critical care Reason for Consult*: This catheter insertion Attending Physician: Juan Urena MD Primary Care Provider: Stewart Rosario MD History of Present Illness History of Present Illness Arnol Guzman is a 49 year old male with a history of diabetes, hypertension, obstructive sleep apnea, super morbid obesity, heart failure who presented to the hospital with worsening shortness of breath and is currently intubated and mechanically ventilated for acute hypoxic respiratory failure. The patient has also suffered from acute kidney injury with oliguric renal failure and significantly volume overloaded. I was asked to evaluate the patient for hemodialysis catheter insertion. The patient was seen and examined in ICU. Is currently sedated. The history was obtained from the chart review. Review of Systems Narrative: Unable to obtain Meds/Allergies Home Medications and Allergies Home Medications Medication Instructions Recorded Confirmed Last Taken Type albuterol sulfate [ProAir HFA] 2 - 4 puff INHALATION QID PRN 07/14/19 12/01/19 07/14/19 History allopurinol 300 mg PO DAILY 07/14/19 12/01/19 10/15/19 History aspirin [Aspir-81] 81 mg PO DAILY 07/14/19 12/01/19 10/15/19 History atenolol 100 mg PO DAILY 07/14/19 12/01/19 10/15/19 History atorvastatin [Lipitor] 80 mg PO DAILY 07/14/19 12/01/19 10/13/19 History loratadine 10 mg PO DAILY 07/14/19 12/01/19 10/15/19 History metformin 500 mg PO BID 07/14/19 12/01/19 10/15/19 History montelukast [Singulair] 10 mg PO DAILY 07/14/19 12/01/19 10/14/19 History omeprazole 40 mg PO DAILY 07/14/19 12/01/19 10/14/19 History lisinopril 20 mg PO DAILY 30 Days #30 tab 07/15/19 12/01/19 10/15/19 Rx mometasone-formoterol HFA 200 2 puff INHALATION BID 08/12/19 12/01/19 10/14/19 History mcg-5 mcg/actuation aerosol inhaler insulin degludec 200 unit/mL (3 20 unit SUBCUT DAILY ml 10/14/19 12/01/19 Unknown History mL) subcutaneous pen potassium chloride 20 meq PO TID #15 tab 11/25/19 12/01/19 Unknown Rx docusate sodium 200 mg PO BEDTIME 12/01/19 12/01/19 Unknown History furosemide 40 mg PO DAILY 12/01/19 12/01/19 Unknown History Allergies Allergy/AdvReac Type Severity Reaction Status Date / Time Penicillins Allergy ALGY-Hives Verified 11/21/19 13:02 diltiazem [From Cardizem] AdvReac ADR/ALGY-Pa Verified 11/21/19 13:02 lpitations Current Medications Current Medications Generic Name Dose Route Start Last Admin Trade Name Freq PRN Reason Stop Dose Admin Acetaminophen 650 mg 12/01/19 22:04 12/02/19 20:18 Tylenol PO 650 mg Q4H PRN Administration MILD PAIN OR INCREASE TEMP Albuterol/Ipratropium 3 ml 12/01/19 16:00 12/04/19 11:38 Duoneb INHALATION 3 ml Q4H.RESPIRATORY NESSA Administration Allopurinol 100 mg 12/03/19 09:00 12/04/19 08:34 Zyloprim PO 100 mg DAILY NESSA Administration Aspirin 81 mg 12/02/19 09:30 12/04/19 08:34 Aspirin Chewable PO 81 mg DAILY NESSA Administration Atenolol 100 mg 12/02/19 09:00 12/04/19 08:35 Tenormin PO 100 mg DAILY NESSA Administration Atorvastatin Calcium 80 mg 12/02/19 09:00 12/04/19 08:34 Lipitor PO 80 mg DAILY NESSA Administration Dextrose 50 ml 12/01/19 16:51 12/03/19 09:57 D50w IVP 50 ml PRN PRN Administration hypoglycemia protocol Protocol Fentanyl 1,000 mcg/ Sodium 100 mls @ 0 mls/hr 12/01/19 15:30 12/03/19 21:02 Chloride IV 100 mcg/hr .Q0M NESSA 10 mls/hr Administration Protocol Per Protocol Dextrose/Sodium Chloride 1,000 mls @ 75 mls/hr 12/01/19 17:45 12/04/19 10:42 Dextrose 5%-Sod Chloride 0.9% IV 75 mls/hr .[id number] NESSA Administration Norepinephrine Bitartrate 4 mg 254 mls @ 0 mls/hr 12/01/19 18:00 12/04/19 08:26 / Dextrose IV 1 mcg/min .Q0M NESSA 3.8 mls/hr Administration Protocol Per Protocol Linezolid 600 mg in 300 mls @ 300 mls/hr 12/02/19 10:00 12/03/19 23:22 Zyvox Premix IV 300 mls/hr Q12H NESSA Administration Protocol Azithromycin 500 mg/ Sodium 250 mls @ 250 mls/hr 12/02/19 09:30 12/04/19 12:45 Chloride IV 250 mls/hr Q24H NESSA Administration Protocol Imipenem/Cilastatin Sodium 250 100 mls @ 200 mls/hr 12/02/19 21:00 12/04/19 08:36 mg/ Sodium Chloride IV 200 mls/hr Q6H NESSA Administration Protocol Dexmedetomidine HCl 400 mcg/ 104 mls @ 0 mls/hr 12/04/19 07:45 12/04/19 08:26 Sodium Chloride IV 0.5 mcg/kg/hr .Q0M NESSA 21.3 mls/hr Administration Protocol Per Protocol Insulin Aspart 0 unit 12/01/19 18:00 12/04/19 07:24 Novolog SUBCUT Not Given TIDWM NESSA Protocol Lorazepam 2 mg 12/04/19 11:05 12/04/19 11:10 Ativan IVP 2 mg Q4H PRN Administration ANXIETY Montelukast Sodium 10 mg 12/02/19 09:00 12/04/19 08:35 Singulair PO 10 mg DAILY NESSA Administration Non-Formulary Medication 2 puff 12/01/19 18:00 12/01/19 16:50 Mometasone-Formoterol [Dulera] INHALATION Not Given BID NESSA Pantoprazole Sodium 40 mg 12/02/19 09:00 12/04/19 08:36 Protonix IVP 40 mg DAILY NESSA Administration PFSH Acute PFSH: Medical History Diabetes Gout Hyperlipemia, mixed Hypertension Morbid (severe) obesity due to excess calories OPAL (obstructive sleep apnea) Pneumonia Surgical History History of adenoidectomy History of hernia repair History of tonsillectomy History of umbilical hernia repair Family History Mother Hypertension CAD (coronary artery disease) Stroke Social History Smoking and tobacco status: former smoker Second hand smoke exposure: Yes Alcohol intake: never Lives independently: Yes Household members: friend(s) Vitals/I&O/Wt Last Vital Signs Temp 98.2 F 12/04/19 11:00 Pulse 87 12/04/19 11:41 Resp 16 12/04/19 11:42 BP 102/66 12/04/19 11:00 Pulse Ox 94 12/04/19 11:41 12/03/19 12/04/19 12/04/19 22:59 06:59 14:59 Intake Total 1377.475 / 3173.850 362.729 / 3536.579 1010.197 / 1010.197 Output Total 116 / 116 51 / 167 Balance 1261.475 / 3057.850 311.729 / 3369.579 1010.197 / 1010.197 Weight last 48 hrs Weight 363 lb 4 oz Weight 360 lb 14.4 oz Physical Exam Narrative: EXAM NARRATIVE: General: Patient is intubated and sedated, super morbid obesity Neck: Unable to assess jugular venous distention, significant amount of soft tissue in the neck Auscultation: Crackles at bilateral lung bases, no wheezing or rhonchi Cardiovascular: Regular rate and rhythm, S1-S2 present, bilateral peripheral edema. Abdomen: Soft, distended from obesity, positive bowel sound Skin: No rash, no evidence of erythema nodosum or multiforme. Neuro: Unable to assess patient is sedated Urinary Catheter Management^: Coude: Cath Placed During This Visit: yes Reason for Continuing Indwelling Catheter: Accurate Measurement of Urinary Output in Critically Ill Patients Urinary Catheter Date of Insertion: 12/01/19 Urinary Catheter Time of Insertion: 18:00 Data Micro: Micro: Microbiology 12/01/19 16:30 Gram Stain - Final Sputum - Endotrac heal Tube Aspirate Sputum Culture - F inal 12/02/19 10:45 Urine Culture - Pr eliminary Urine,Clean Catch 12/01/19 18:45 Urine Culture - Pr eliminary Urine,Clean Catch Other Data: Other data: I have reviewed the patient's laboratory, microbiologic and radiologic data. The patient has worse consolidation on the left side with interstitial opacity on the right on the chest x-ray. There is no significant leukocytosis, acidosis or hyperkalemia. One blood culture from 515 was positive for coag negative staph. Other than that all cultures have been negative. A&P Assessment and plan (1) Acute respiratory failure with hypoxia: Patient has acute hypoxic respiratory failure currently on mechanical ventilation. He is also likely significantly volume overloaded in the setting of acute kidney injury. Status: Acute (2) Acute renal failure: I will inserted a right internal jugular vein hemodialysis catheter. 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
[2019-12-04 13:14] LABS: Glucose Point of Care 79 mg/dL (70-110)
--- NOTE | 2019-12-04 16:15 | P.PN_ITS ---
Subjective Subjective: Interval history: This morning patient remains intubated, sedated, urine output remains lackluster, despite Lasix trial, creatinine up to 6.1, BUN 57, patient had borderline low blood pressures overnight, requiring low-dose Levophed, chest x-ray this morning shows bilateral pulmonary edema likely secondary fluid overload, bilateral lower extremities 1+ pitting edema Plan for today is dialysis catheter placement followed by dialysis, patient had negative COVID 19 testing yesterday, repeat study ordered yesterday, Patient remains afebrile, intermittent episodes of sinus tachycardia, currently normotensive, map around 65, Levophed going minimally at 1, currently on 30% FiO2, PEEP of 8, Vitals/I&O/Wt Last Vital Signs Temp 98.2 F 12/04/19 11:00 Pulse 69 12/04/19 15:42 Resp 16 12/04/19 15:42 BP 102/66 12/04/19 11:00 Pulse Ox 93 12/04/19 15:42 12/04/19 12/04/19 12/04/19 06:59 14:59 22:59 Intake Total 362.729 / 3536.579 1010.197 / 1010.197 Output Total 51 / 167 Balance 311.729 / 3369.579 1010.197 / 1010.197 Weight last 48 hrs Weight 164.767 kg Weight 163.701 kg Physical Exam Const: COMMON NORMALS: no acute distress OTHER: Intubated, sedated HENMT: COMMON NORMALS: normocephalic HEAD & SCALP: normocephalic Eye: COMMON NORMALS: Equal, round and reactive pupils present PUPIL: Yes Equal, round and reactive pupils present Neck/C-Spine: COMMON NORMALS: no JVD Lymph: LYMPHATIC: no lymphadenopathy noted Resp: COMMON NORMALS: normal respiratory effort, No retractions and No use of accessory muscles AUSCULTATION: diminished lung sounds on the left Cardio: COMMON NORMALS: no JVD, regular rate, regular rhythm, S1 normal heart sound present, S2 normal heart sound present, No gallops present (Cardio), No clicks present (Cardio) and No murmurs present (Cardio) RATE: regular rate RHYTHM: regular rhythm HEART SOUNDS: S1 normal heart sound present and S2 normal heart sound present GI: COMMON NORMALS: Normal to inspection, nondistended, normoactive bowel sounds present, Soft to palpation, non-tender, No hepatosplenomegaly present, no masses and no bruits PALPATION: Yes Soft to palpation and Yes No hepatosplenomegaly present Extremity: COMMON NORMALS: normal to inspection, full ROM, capillary refill normal, no clubbing, cyanosis or edema and no calf tenderness NARRATIVE EXTREMITY EXAM: 1+ pitting edema Psych: OTHER: Patient is intubated sedated Urinary Catheter Management^: Coude: Cath Placed During This Visit: yes Reason for Continuing Indwelling Catheter: Accurate Measurement of Urinary Output in Critically Ill Patients Urinary Catheter Date of Insertion: 12/01/19 Urinary Catheter Time of Insertion: 18:00 Data : 12/04/19 03:05 12/04/19 03:05 Micro: Microbiology 12/01/19 18:45 Urine Culture - Final Urine,Clean Catch 12/02/19 10:45 Urine Culture - Final Urine,Clean Catch 12/01/19 16:30 Gram Stain - Final Sputum - Endotracheal Tube Aspirate Sputum Culture - Final A&P Assessment and plan (1) Acute respiratory failure with hypoxia: -Acute hypoxic respiratory failure secondary to left-sided pneumonia, with severe sepsis, acute renal failure, multiorgan dysfunction, with evidence of acu te respiratory distress syndrome -CT of the chest shows dense pneumonia in the left upper and left lower lobes with additional patchy bilateral areas of consolidation -+11.7 L since admission -Chest x-ray this morning continue left-sided pneumonia, with evidence of bilateral pulmonary edema Plan: -Admitted to the ICU -Mechanical ventilation, minimize PEEP, minimize FiO2 -Switch Precedex for propofol in light of elevated CK and continue fentanyl for sedation -Protonix for GI prophylaxis, Lovenox for DVT prophylaxis -Broad-spectrum antibiotics Zyvox, and Primaxin, azithromycin for atypical cove rage, cover for healthcare associated pneumonia as he was admitted 3 months ago -Continue gentle IV hydration given acute renal failure, hold nephrotoxic agents, monitor urine output has had lackluster response to Lasix, will have dialysis catheter placement by Dr. Owusu, followed by dialysis tomorrow morning -Maintain map greater than 65, 2 peripheral IVs, right dialysis catheter placement by Dr. Owusu, currently on Levophed at 1 -Follow blood cultures, urine cultures, sputum cultures, -Continue tube feeds -COVID-19 first test negative, repeat test pending -Patient has had low blood sugars throughout his admission, despite being on D5 normal saline, likely secondary to severe sepsis -Patient's prognosis guarded, condition is stable Status: Acute (2) Sepsis: Status: Acute Qualifiers: Sepsis acute organ dysfunction status: without acute organ dysfunction Sepsis type: sepsis due to unspecified organism Qualified Code(s): A41.9 - Sepsis, unspecified organism (3) ARDS (adult respiratory distress syndrome): -Given CT scan findings, patient's hypoxia, has evidence of acute respiratory distress syndrome secondary to pneumonia -Minimize FiO2, minimize tidal volumes -We will hold off on steroids for now -Continue nebulizer treatments Status: Acute (4) Pneumonia: Status: Acute Qualifiers: Laterality: left Lung location: upper lobe of lung Pneumonia type: due to unspecified organism Qualified Code(s): J18.9 - Pneumonia, unspecified organism (5) Acute renal failure: -Creatinine up to 6.1, urine output minimal, evidence of acute tubular necrosis, likely secondary to severe sepsis -Nephrology has been consulted -Dialysis catheter placement by Dr. Owusu this afternoon, followed by dialysis tomorrow morning Status: Acute (6) Multiorgan failure: -Creatinine up to 5.3, elevated transaminitis, elevated INR Status: Acute (7) CHF (congestive heart failure): Status: Acute Qualifiers: Heart failure chronicity: acute on chronic Heart failure type: unspecified Qualified Code(s): I50.9 - Heart failure, unspecified (8) Acquired urinary meatal stenosis: Status: Acute (9) Hypertension: Status: Chronic Qualifiers: Hypertension type: essential hypertension Qualified Code(s): I10 - Essential (primary) hypertension (10) Diabetes: Low-dose sliding scale Status: Chronic Qualifiers: Diabetes mellitus type: type 2 Diabetes mellitus technician terminal and repeater insulin use: with mcfp use Diabetes mellitus complication status: with circulatory complication (11) OPAL (obstructive sleep apnea): Status: Acute (12) Morbid (severe) obesity due to excess calories: Status: Acute Attestations Medical Necessity Statement*: She requires continued hospitalization due to acute respiratory failure secondary to pneumonia, sepsis, acute renal failure, multiorgan failure Coding Level of Care Code 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 [facility] Diagnoses Acute respiratory failure with hypoxia J96.01 Sepsis A41.9 Sepsis acute organ dysfunction status: without acute organ dysfunction Sepsis type: sepsis due to unspecified organism ARDS (adult respiratory distress syndrome) J80 Pneumonia J18.9 Laterality: left Lung location: upper lobe of lung Pneumonia type: due to unspecified organism Acute renal failure N17.9 Multiorgan failure CHF (congestive heart failure) I50.9 Heart failure chronicity: acute on chronic Heart failure type: unspecified Acquired urinary meatal stenosis Hypertension I10 Hypertension type: essential hypertension Diabetes E11.9 Diabetes mellitus type: type 2 Diabetes mellitus technician terminal and repeater insulin use: with technician terminal and repeater use Diabetes mellitus complication status: with circulatory complication OPAL (obstructive sleep apnea) G47.33 Morbid (severe) obesity due to excess calories E66.01
[2019-12-04] MEDS: linezolid premix 600 MG/300 ML PREMIX 300 MG IV ×2 (17:31→23:39)
[2019-12-04] MEDS: enoxaparin 30 mg/0.3 mL Syringe SUBCUT (17:44)
[2019-12-04 19:05] LABS: Aspergillus AG,EIA,Serum NOT DETECTED; Aspergillus Galactomannan Inde <0.50
[2019-12-04 20:07] LABS: Glucose Point of Care 114 mg/dL (70-110)
[2019-12-04 20:07] LABS: Glucose Point of Care 133 mg/dL (70-110)
[2019-12-04 21:44] LABS: Vancomycin Trough 17.2 ug/mL (10-15)
[2019-12-04] MEDS: midazolam 1 mg/mL INJ 2 mL 2 MG IVP (21:45)
[2019-12-04 23:50] LABS: Glucose Point of Care 125 mg/dL (70-110)
[2019-12-05] VITALS (91 sets, daily range): BP systolic 53–133; BP diastolic 40–79; PULSE 62–79; RESP 15–18; TEMP 36.6; O2SAT 89–100
[2019-12-05] MEDS: dextrose 5%-sod chloride 0.9% 1,000 ML 75 ML IV (00:13)
[2019-12-05] MEDS: ipratropium-albuterol 3 mL Neb INHALATION ×6 (01:08→21:27)
[2019-12-05] MEDS: LORazepam 2 mg/mL INJ 1 mL IVP ×2 (02:50→08:14)
[2019-12-05 04:38] LABS: Basophils % 0.2 %; Eosinophils % 0.5 %; Hematocrit 34.3 % (42.0-52.0); Hemoglobin 9.9 g/dL (11.7-16.6); Lymphocytes # 0.5 10^3/uL (0.8-4.8); Lymphocytes % 7.2 %; Mean Corpuscular HGB Conc 28.9 g/dL (30.0-36.0); Mean Corpuscular Volume 83.3 fL (80-94); Mean Platelet Volume 11.3 fL (7.4-10.4); Monocytes # 0.5 10^3/uL (0.2-0.9); Monocytes % 7.7 %; Neutrophils # 5.3 10^3/uL (1.8-7.7); Neutrophils % 83.3 %; Nucleated Red Blood Cells % 0 %; Platelet Count 219 10^3/cmm (130-400); Red Blood Count 4.12 10^6/uL (4.1-5.3); Red Cell Distribution Width 17.3 % (12.1-15.1); White Blood Count 6.4 10^3/uL (4.0-10.0)
[2019-12-05 04:56] LABS: Lactic Sepsis W/Reflex 1.1 mmol/L (0.5-2.2)
[2019-12-05] MEDS: dexmedetomidine 400 MCG in sodium chloride 0.9% (100 ml) 100 ML 21.3 MCG IV ×4 (05:14→20:31)
[2019-12-05 05:19] LABS: Glucose Point of Care 158 mg/dL (70-110)
[2019-12-05 05:30] LABS: Alanine Aminotransferase 24 U/L (0-41); Albumin Level 2.5 g/dL (3.5-5.2); Alkaline Phosphatase 190 IU/L (40-130); Aspartate Amino Transferase 151 U/L (0-40); Blood Urea Nitrogen 67 mg/dL (6-20); Calcium 8.1 mg/dL (8.5-10.5); Carbon Dioxide 21 mmol/L (22-29); Chloride 92 mmol/L (98-107); Globulin 4.6 g/dL (1.3-4.6); Glomerular Filtration Rate 9.8 mL/min (90-130); Glucose 175 mg/dL (65-115); Magnesium 2.4 mg/dL (1.7-2.3); Osmolality Calculated 277 mOsm/kg (285-295); Sodium 132 mmol/L (136-145); Total Bilirubin 1.3 mg/dL (0.15-1.2); Total Protein 7.1 g/dL (6.6-8.7)
[2019-12-05 06:02] LABS: Creatine Phosphokinase 4663 U/L (39-308)
[2019-12-05 06:24] LABS: Hepatitis B Surface Antigen Non-Reactive (Nonreactive)
[2019-12-05 06:34] LABS: ABG PCO2 42.9 mmHg (35-45); ABG PH Result 7.36 (7.35-7.45); Base Excess ABG -1.1 mmol/L (-2.0-2.0); Blood Gas Allen Test Pos; Blood Gas Sample Site Radial, right; Blood Gas Sample Type Arterial; HCO3 ABG 24.3 mmol/L (22-26); Oxygen Device VENT; PO2 ABG 89.9 mmHg (80.0-100.0)
--- NOTE | 2019-12-05 07:00 | XRR_ITS ---
PROCEDURE INFORMATION: Exam: XR Chest, 1 View Exam date and time: 12/05/2019 5:40 AM Age: 49 years old Clinical indication: Screening exam; Other screening; Prior surgery; Surgery type: Et, og, picc line, dialysis cath; Additional info: SOB TECHNIQUE: Imaging protocol: XR of the chest Views: 1 view. COMPARISON: CR XR chest 1V portable [id number] 12/04/2019 1:47 PM FINDINGS: Tubes, catheters and devices: The endotracheal tube is above the level of the jonnathan. Central venous catheter via the right jugular approach with the tip projecting over the superior vena cava. nasogastric tube extends below the diaphragm although the location of the tip not identified as it is outside of the [id number]. Lungs: Airspace consolidation within the left mid lung and left lung base/retrocardiac region. Mildly progressive. Pleural space: Unremarkable. No pleural effusion. No pneumothorax. Heart/Mediastinum: Borderline cardiomegaly. Bones/joints: Unremarkable. XR/XR chest 1V portable [id number] IMPRESSION: Airspace consolidation within the left mid lung and left lung base/retrocardiac region. Mildly progressive.
--- NOTE | 2019-12-05 08:00 | PC.NURSE ---
dialysis nurse reequest that Dr Owusu be called as cath not drawing blood at this time order for cath flow per dialysis doctor
[2019-12-05 08:27] LABS: Glucose Point of Care 173 mg/dL (70-110)
[2019-12-05] MEDS: montelukast sodium 10 mg Tablet PO (08:33)
[2019-12-05] MEDS: atorvastatin 40 mg Tablet 80 MG PO (08:33)
[2019-12-05] MEDS: aspirin 81 mg Chew Tablet PO (08:33)
[2019-12-05] MEDS: pantoprazole 40 mg SDV IVP (08:34)
[2019-12-05] MEDS: allopurinol 300 mg Tablet 100 MG PO (08:34)
--- NOTE | 2019-12-05 09:00 | PC.NURSE ---
cath flow per dialysis atenolol on hold b/p Dr zazueta aware
[2019-12-05] MEDS: azithromycin 500 MG in sodium chloride 0.9% 250 ML 250 MG IV (11:07)
--- NOTE | 2019-12-05 11:08 | PC.NURSE ---
delay on antibbotic attempting to do dialysis
--- NOTE | 2019-12-05 11:10 | NUR.SHIFT ---
altaplace given per dialysis nurse
--- NOTE | 2019-12-05 11:25 | P.PN_ITS ---
Subjective Subjective: Interval history: This morning patient was seen on minimal sedation, is following commands,squeezing my finger, nodding yes, overnight remains afebrile, was taken off Levophed this morning, blood pressures are a bit soft, map greater than 65, FiO2 40%, respiratory rate 16, chest x-ray shows evidence of bilateral pulmonary edema, blood cultures remain unremarkable, creatinine increased to 6.2, patient had a right dialysis catheter placed by Dr. Owusu yesterday evening, there is been some concerns with poor flow, will have troubleshoot this, as I plan to make patient on the vacuum drum drier operator side before extubating him, urine output has picked up, urine output and last for 4 hours was 800 cc, remains +13.7 L since admission Vitals/I&O/Wt Last Vital Signs Temp 98 F 12/05/19 04:00 Pulse 69 12/05/19 10:15 Resp 15 12/05/19 08:23 BP 104/59 12/05/19 10:15 Pulse Ox 96 12/05/19 10:15 12/04/19 12/05/19 12/05/19 22:59 06:59 14:59 Intake Total 563.460 / 2127.657 1798.200 / 3925.857 67.45 / 67.45 Output Total 105 / 205 595 / 800 Balance 458.460 / 7239.282 8976.200 / 3125.857 67.45 / 67.45 Weight last 48 hrs Weight 165.062 kg Weight 164.767 kg Weight 163.701 kg Physical Exam Narrative: EXAM NARRATIVE: Off sedation, follows commands, squeeze my fingers, nodding yes Const: COMMON NORMALS: no acute distress OTHER: Intubated, sedated HENMT: COMMON NORMALS: normocephalic HEAD & SCALP: normocephalic Eye: COMMON NORMALS: Equal, round and reactive pupils present, EOMs intact bilaterally and no papilledema GENERAL EYE: appearance normal, both eyes and all related structures PUPIL: Yes Equal, round and reactive pupils present DIRECT OPHTHALMOSCOPY: Yes no papilledema Neck/C-Spine: COMMON NORMALS: full ROM, no lymphadenopathy, no JVD and Thyroid normal THYROID: Thyroid normal Lymph: LYMPHATIC: no lymphadenopathy noted Resp: COMMON NORMALS: normal respiratory effort, No retractions and No use of accessory muscles AUSCULTATION: diminished lung sounds on the left Cardio: COMMON NORMALS: no JVD, regular rate, regular rhythm, S1 normal heart sound present, S2 normal heart sound present, No gallops present (Cardio), No clicks present (Cardio) and No murmurs present (Cardio) RATE: regular rate RHYTHM: regular rhythm HEART SOUNDS: S1 normal heart sound present and S2 normal heart sound present GI: COMMON NORMALS: Normal to inspection, nondistended, normoactive bowel sounds present, Soft to palpation, non-tender, No hepatosplenomegaly present, no masses and no bruits PALPATION: Yes Soft to palpation and Yes No hepatosplenomegaly present Extremity: COMMON NORMALS: normal to inspection, full ROM, capillary refill normal, no clubbing, cyanosis or edema, no calf tenderness and no pedal edema NARRATIVE EXTREMITY EXAM: 1+ pitting edema Neuro: COMMON NORMALS: CN's II-XII intact bilaterally, moves all extremities and no focal motor deficits Psych: COMMON NORMALS: mental status grossly normal, Normal thought process present and cooperative THOUGHT PROCESS: Normal thought process present OTHER: Patient is intubated sedated Urinary Catheter Management^: Coude: Cath Placed During This Visit: yes Reason for Continuing Indwelling Catheter: Accurate Measurement of Urinary Output in Critically Ill Patients Urinary Catheter Date of Insertion: 12/01/19 Urinary Catheter Time of Insertion: 18:00 Data : 12/05/19 04:15 12/05/19 04:15 Micro: Microbiology 12/01/19 18:45 Urine Culture - Final Urine,Clean Catch 12/02/19 10:45 Urine Culture - Final Urine,Clean Catch 12/01/19 16:30 Gram Stain - Final Sputum - Endotracheal Tube Aspirate Sputum Culture - Final A&P Assessment and plan (1) Acute respiratory failure with hypoxia: -Acute hypoxic respiratory failure secondary to left-sided pneumonia, with severe sepsis, acute renal failure, multiorgan dysfunction, with evidence of acute respiratory distress syndrome -CT of the chest shows dense pneumonia in the left upper and left lower lobes with additional patchy bilateral areas of consolidation -+13.7 L since admission -Chest x-ray this morning continue left-sided pneumonia, with evidence of bilateral pulmonary edema Plan: -Admitted to the ICU -Mechanical ventilation, minimize PEEP, minimize FiO2 -Switch Precedex Precedex and fentanyl okay -Protonix for GI prophylaxis, Lovenox for DVT prophylaxis -Broad-spectrum antibiotics Zyvox, and Primaxin, azithromycin for atypical coverage, cover for healthcare associated pneumonia as he was admitted 3 months ago -Continue gentle IV hydration given acute renal failure, hold nephrotoxic agents, monitor urine output 800 cc in the last 24 hours has had lackluster response to Lasix, dialysis catheter placed by Dr. Owusu, having flow issues, will troubleshoot, plan on dialysis today, as I would like patient on the vacuum drum drier operator side to ease extubation as patient is +13.7 L -Maintain map greater than 65, 2 peripheral IVs, right dialysis catheter placement by Dr. Owusu, currently Levophed is off -Follow blood cultures, urine cultures, sputum cultures: Also far during this admission have been unremarkable -Continue tube feeds -COVID-19 first test negative, repeat test pending -Blood sugars are reasonable today, no hypoglycemic episodes -Patient's prognosis guarded, condition is stable Status: Acute (2) Sepsis: Status: Acute Qualifiers: Sepsis acute organ dysfunction status: without acute organ dysfunction Sepsis type: sepsis due to unspecified organism Qualified Code(s): A41.9 - Sepsis, unspecified organism (3) ARDS (adult respiratory distress syndrome): -Given CT scan findings, patient's hypoxia, has evidence of acute respiratory distress syndrome secondary to pneumonia -Minimize FiO2, minimize tidal volumes -We will hold off on steroids for now -Continue nebulizer treatments Status: Acute (4) Pneumonia: Status: Acute Qualifiers: Laterality: left Lung location: upper lobe of lung Pneumonia type: due to unspecified organism Qualified Code(s): J18.9 - Pneumonia, unspecified organism (5) Acute renal failure: -Creatinine has plateaued to 6.2, urine output 800 cc, evidence of acute tubular necrosis, likely secondary to severe sepsis -Nephrology has been consulted -Dialysis catheter placed by Dr. Owusu, will follow-up for troubleshooting, has poor flow, plan on dialysis today, hopefully tomorrow, Status: Acute (6) Multiorgan failure: -Creatinine up to 6.2, elevated transaminitis, elevated INR Status: Acute (7) CHF (congestive heart failure): Status: Acute Qualifiers: Heart failure chronicity: acute on chronic Heart failure type: unspecified Qualified Code(s): I50.9 - Heart failure, unspecified (8) Acquired urinary meatal stenosis: Status: Acute (9) Hypertension: Status: Chronic Qualifiers: Hypertension type: essential hypertension Qualified Code(s): I10 - Essential (primary) hypertension (10) Diabetes: Low-dose sliding scale Status: Chronic Qualifiers: Diabetes mellitus type: type 2 Diabetes mellitus alf insulin use: with alf use Diabetes mellitus complication status: with circulatory complication (11) OPAL (obstructive sleep apnea): Status: Acute (12) Morbid (severe) obesity due to excess calories: Status: Acute Attestations Medical Necessity Statement*: Requires continued hospitalization for acute respiratory failure, secondary to pneumonia, sepsis, acute renal failure, multiorgan failure, requiring dialysis Coding Level of Care Code 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 [facility] Diagnoses Acute respiratory failure with hypoxia J96.01 Sepsis A41.9 Sepsis acute organ dysfunction status: without acute organ dysfunction Sepsis type: sepsis due to unspecified organism ARDS (adult respiratory distress syndrome) J80 Pneumonia J18.9 Laterality: left Lung location: upper lobe of lung Pneumonia type: due to unspecified organism Acute renal failure N17.9 Multiorgan failure CHF (congestive heart failure) I50.9 Heart failure chronicity: acute on chronic Heart failure type: unspecified Acquired urinary meatal stenosis Hypertension I10 Hypertension type: essential hypertension Diabetes E11.9 Diabetes mellitus type: type 2 Diabetes mellitus alf insulin use: with intermodal dispatcher use Diabetes mellitus complication status: with circulatory complication OPAL (obstructive sleep apnea) G47.33 Morbid (severe) obesity due to excess calories E66.01
[2019-12-05] MEDS: enoxaparin 30 mg/0.3 mL Syringe SUBCUT (12:01)
[2019-12-05] MEDS: linezolid premix 600 MG/300 ML PREMIX 100 MG IV (12:01)
--- NOTE | 2019-12-05 12:16 | PM.PN ---
Subjective Subjective: Interval history: Seen with bedside RN, using telemed. Remains intubated and vented with FiO2 50% and PEEP 5. UO is starting to improve a little. Dr Owusu placed HD line but manager dialysis is having some issues with its use. Hemodynamics remain stable, off pressors now. Medications: Reviewed: Yes Medication Review Details: Current Medications Acetaminophen (Tylenol) 650 mg PO Q4H PRN PRN Reason: MILD PAIN OR INCREASE TEMP Last Admin: 12/02/19 20:18 Dose: 650 mg Documented by: Albuterol Sulfate (Ventolin) 2 - 4 puff INHALATION QID.RESPIRATORY PRN PRN Reason: Shortness Of Breath Albuterol/Ipratropium (Duoneb) 3 ml INHALATION Q4H.RESPIRATORY NESSA Last Admin: 12/03/19 07:35 Dose: 3 ml Documented by: Albuterol/Ipratropium (Duoneb) 3 ml INHALATION Q4H.RESPIRATORY NESSA Last Admin: 12/02/19 03:46 Dose: Not Given Documented by: Allopurinol (Zyloprim) 100 mg PO DAILY [facility] Aspirin (Aspirin Chewable) 81 mg PO DAILY [facility] Last Admin: 12/02/19 10:20 Dose: 81 mg Documented by: Atenolol (Tenormin) 100 mg PO DAILY [facility] Last Admin: 12/02/19 10:23 Dose: Not Given Documented by: Atorvastatin Calcium (Lipitor) 80 mg PO DAILY [facility] Last Admin: 12/02/19 10:20 Dose: 80 mg Documented by: Dextrose (D50w) 25 ml IVP ONCE PRN; Protocol PRN Reason: hypoglycemia protocol Dextrose (D50w) 50 ml IVP PRN PRN; Protocol PRN Reason: hypoglycemia protocol Enoxaparin Sodium (Lovenox) 40 mg SUBCUT Q24H [facility] Last Admin: 12/02/19 11:44 Dose: 40 mg Documented by: Glucagon (Glucagen) 1 mg IM ONCE PRN; Protocol PRN Reason: Adult Acute Hypoglycemia Prot. Propofol (Diprivan) 1,000 mg in 100 mls @ 0 mls/hr IV .Q0M [facility]; Protocol Last Admin: 12/03/19 03:05 Dose: 25 mcg/kg/min, 23.8 mls/hr Documented by: Fentanyl 1,000 mcg/ Sodium (Chloride) 100 mls @ 0 mls/hr IV .Q0M [facility]; Protocol Last Titration: 12/02/19 22:50 Dose: 75 mcg/hr, 7.5 mls/hr Documented by: Dextrose (D5w) 500 mls @ 100 mls/hr IV ONCE PRN; Protocol PRN Reason: Adult Acute Hypoglycemia Prot Dextrose/Sodium Chloride (Dextrose 5%-Sod Chloride 0.9%) 1,000 mls @ 75 mls/hr IV .[id number] [facility] Last Admin: 12/02/19 20:21 Dose: 75 mls/hr Documented by: Norepinephrine Bitartrate 4 mg (/ Dextrose) 254 mls @ 0 mls/hr IV .Q0M [facility]; Protocol Linezolid (Zyvox Premix) 600 mg in 300 mls @ 300 mls/hr IV Q12H [facility]; Protocol Last Infusion: 12/03/19 02:59 Dose: Infused Documented by: Azithromycin 500 mg/ Sodium (Chloride) 250 mls @ 250 mls/hr IV Q24H [facility]; Protocol Last Admin: 12/02/19 10:21 Dose: 250 mls/hr Documented by: Imipenem/Cilastatin Sodium 250 (mg/ Sodium Chloride) 100 mls @ 200 mls/hr IV Q6H [facility]; Protocol Last Admin: 12/03/19 02:55 Dose: 200 mls/hr Documented by: Insulin Aspart (Novolog) 0 unit SUBCUT TIDWM [facility]; Protocol Last Admin: 12/02/19 17:14 Dose: Not Given Documented by: Montelukast Sodium (Singulair) 10 mg PO DAILY [facility] Last Admin: 12/02/19 10:20 Dose: 10 mg Documented by: Non-Formulary Medication (Insulin Degludec [Tresiba Flextouch U-200]) 20 unit SUBCUT DAILY [facility] Non-Formulary Medication (Mometasone-Formoterol [Dulera]) 2 puff INHALATION BID [facility] Last Admin: 12/01/19 16:50 Dose: Not Given Documented by: Ondansetron HCl (Zofran) 4 mg IVP Q8H PRN PRN Reason: vomiting, or N/V if npo Pantoprazole Sodium (Protonix) 40 mg IVP DAILY [facility] Last Admin: 12/02/19 10:21 Dose: 40 mg Documented by: Vitals/I&O/Wt Last Vital Signs Temp 98 F 12/05/19 04:00 Pulse 65 12/05/19 12:00 Resp 15 12/05/19 11:32 BP 115/68 12/05/19 12:00 Pulse Ox 99 12/05/19 12:00 12/04/19 12/05/19 12/05/19 22:59 06:59 14:59 Intake Total 563.460 / 2127.657 1798.200 / 3925.857 67.45 / 67.45 Output Total 105 / 205 595 / 800 225 / 225 Balance 458.460 / 8771.818 1258.200 / 3125.857 -157.55 / -157.55 Weight last 48 hrs Weight 165.062 kg Weight 164.767 kg Weight 163.701 kg Physical Exam Narrative: EXAM NARRATIVE: Exam performed with telemed with the aid of the bedside RN Intubated and vented HEENT: Wet mucosa, elevated jvp Lungs: Bilateral rhonchi, good air entry CVS: 1/2 heard Extremity: trace to 1+ edema Urinary Catheter Management^: Coude: Cath Placed During This Visit: yes Reason for Continuing Indwelling Catheter: Accurate Measurement of Urinary Output in Critically Ill Patients Urinary Catheter Date of Insertion: 12/01/19 Urinary Catheter Time of Insertion: 18:00 Data : 12/05/19 04:15 12/05/19 04:15 Micro: Microbiology 12/01/19 18:45 Urine Culture - Final Urine,Clean Catch 12/02/19 10:45 Urine Culture - Final Urine,Clean Catch 12/01/19 16:30 Gram Stain - Final Sputum - Endotracheal Tube Aspirate Sputum Culture - Final A&P Additional A&P Information 1. TEDDY - picture consistent with ATN, now progressively more oligoanuric - renal imaging still needed and renal US ordered (ok to be done after COVID is ruled out) - urine sodium 36, but no creatinine for FE Na - pending dialysis this afternoon after line is flowing - 3K, UF 2-3L - daily eval prior to order in am - dose meds for eGFR < 15 2. Lytes look ok with non critical aberration 3. VDRF - vent settings noted, slight increase in FiO2 - weaning as tolerated in the next 24-48hrs 4. Pneumonia - COVI rule out - Primaxin and Azithromycin 5. Anemia - mild, follow H/H, no iron/EPO at this time - d/w Bedside RN, Dr Owusu and Dr Urena - exam and interview via telemed Mau Sawyer MD [facility] [phone] Attestations Medical Necessity Statement*: eval for TEDDY Coding Level of Care Code Acute Supervisor [employer] for [facility] [facility]
[2019-12-05 12:23] LABS: Glucose Point of Care 183 mg/dL (70-110)
--- NOTE | 2019-12-05 12:26 | PC.NURSE ---
unable to run dialysis through cath... doctor aware
[2019-12-05] MEDS: FUROsemide 10 mg/mL SDV 10mL 80 MG IVP (15:38)
--- NOTE | 2019-12-05 21:49 | PC.NURSE ---
assessed patient. currently on vent support 8.0 ett 25cm at lip fentanyl and precedex infusing for sedation. patients lungs are crackles bilateral very coarse in lower lobes. abdomen is distended hypeoactive bowel sounds all four quads. silva intact draining to bedside clr yellow urine. coccyx has blister with stg 3-4 decube noted. purple area around open area.. on strict turn schedule and trying to keep high propped on side to avoid pressure.
[2019-12-06] VITALS (64 sets, daily range): BP systolic 69–123; BP diastolic 37–75; PULSE 69–86; RESP 14–20; O2SAT 95–99; BMI 68.7
[2019-12-06] MEDS: ipratropium-albuterol 3 mL Neb INHALATION ×6 (01:19→23:15)
[2019-12-06] MEDS: dexmedetomidine 400 MCG in sodium chloride 0.9% (100 ml) 100 ML 21.3 MCG IV (01:39)
[2019-12-06 04:03] LABS: Lactic Sepsis W/Reflex 1.3 mmol/L (0.5-2.2)
[2019-12-06 04:42] LABS: Creatine Phosphokinase 2613 U/L (39-308)
--- NOTE | 2019-12-06 06:00 | USR_ITS ---
PROCEDURE INFORMATION: Exam: US Abdomen Complete Exam date and time: 12/06/2019 3:29 PM Age: 49 years old Clinical indication: Abnormal findings; Abnormal lab test; Elevated liver enzymes; Additional info: Liver and spleen TECHNIQUE: Imaging protocol: Real-time ultrasound of the abdomen with image documentation. COMPARISON: No relevant prior studies available. FINDINGS: Evaluation is limited by patient body habitus and bowel gas. Incomplete visualization of the kidneys. Liver: No focal mass in the poorly penetrated liver. Gallbladder: No cholelithiasis, gallbladder wall edema, or pericholecystic fluid. Common bile duct: Normal caliber of the incompletely visualized common bile duct measuring 3 mm in diameter. Pancreas: Obscuration of the pancreas by bowel gas. Kidneys: Incomplete visualization of the kidneys. No hydronephrosis. Spleen: Enlargement of the poorly visualized spleen, measuring 16.1 cm in length. Aorta: Obscuration of the abdominal aorta by bowel gas. Inferior vena cava: Normal caliber of the incompletely visualized IVC. US/US abdomen complete* [id number] IMPRESSION: 1. Technically limited examination. 2. No focal mass in the poorly penetrated liver. 3. Enlargement of the poorly visualized spleen, measuring 16.1 cm in length.
[2019-12-06 06:25] LABS: ABG PCO2 43.7 mmHg (35-45); ABG PH Result 7.34 (7.35-7.45); Arterial Blood Gas Hematocrit 33.2 % (42-52); Base Excess ABG -2.2 mmol/L (-2.0-2.0); Blood Gas Sample Site Brachial, right; Blood Gas Sample Type Arterial; HCO3 ABG 23.5 mmol/L (22-26); Oxygen Device VENT
[2019-12-06 07:08] LABS: Glucose Point of Care 179 mg/dL (70-110)
--- NOTE | 2019-12-06 07:35 | XRR_ITS ---
PROCEDURE INFORMATION: Exam: XR Chest, 1 View Exam date and time: 12/06/2019 7:36 AM Age: 49 years old Clinical indication: Shortness of breath; Additional info: SOB TECHNIQUE: Imaging protocol: XR of the chest Views: 1 view. COMPARISON: CR XR chest 1V portable [id number] 12/05/2019 5:30 AM FINDINGS: Tubes, catheters and devices: Endotracheal tube, feeding tube, and central venous catheter again demonstrated. The endotracheal tube terminates 6.5 cm above the jonnathan. Lungs: Hypoinflation and interstitial prominence. Prominent asymmetric left-sided airspace disease. Pleural space: No significant pleural effusion. Heart/Mediastinum: Cardiac silhouette upper limits of normal in size. Bones/joints: Degenerative change. When correlating with the previous study, no significant interval changes are present. XR/XR chest 1V portable [id number] IMPRESSION: Stable appearance of the chest, not significantly changed from 12/05/2019 .
[2019-12-06 08:00] LABS: Glucose Point of Care 167 mg/dL (70-110)
[2019-12-06 08:14] LABS: Basophils % 0.7 %; Eosinophils % 0.7 %; Hematocrit 32.3 % (42.0-52.0); Lymphocytes # 0.4 10^3/uL (0.8-4.8); Lymphocytes % 9.8 %; Mean Corpuscular HGB Conc 27.9 g/dL (30.0-36.0); Mean Corpuscular Hemoglobin 23.6 pg (28.0-34.0); Mean Corpuscular Volume 84.6 fL (80-94); Mean Platelet Volume 11.1 fL (7.4-10.4); Monocytes # 0.3 10^3/uL (0.2-0.9); Monocytes % 6.3 %; Neutrophils # 3.7 10^3/uL (1.8-7.7); Neutrophils % 81.6 %; Nucleated Red Blood Cells % 0 %; Platelet Count 219 10^3/cmm (130-400); Red Blood Count 3.82 10^6/uL (4.1-5.3); Red Cell Distribution Width 17.4 % (12.1-15.1); White Blood Count 4.5 10^3/uL (4.0-10.0)
[2019-12-06] MEDS: pantoprazole 40 mg SDV IVP (08:30)
[2019-12-06] MEDS: montelukast sodium 10 mg Tablet PO (08:31)
[2019-12-06] MEDS: bumetanide 0.25 mg/mL SDV 10 mL 1 MG IV (08:31)
[2019-12-06] MEDS: aspirin 81 mg Chew Tablet PO (08:31)
[2019-12-06 08:32] LABS: Alanine Aminotransferase 16 U/L (0-41); Albumin Level 2.4 g/dL (3.5-5.2); Alkaline Phosphatase 217 IU/L (40-130); Aspartate Amino Transferase 123 U/L (0-40); Blood Urea Nitrogen 70 mg/dL (6-20); Calcium 7.6 mg/dL (8.5-10.5); Carbon Dioxide 20 mmol/L (22-29); Chloride 92 mmol/L (98-107); Glomerular Filtration Rate 10.5 mL/min (90-130); Glucose 132 mg/dL (65-115); Magnesium 2.5 mg/dL (1.7-2.3); Osmolality Calculated 277 mOsm/kg (285-295); Sodium 133 mmol/L (136-145); Total Protein 6.4 g/dL (6.6-8.7)
[2019-12-06] MEDS: atorvastatin 40 mg Tablet 80 MG PO (08:32)
[2019-12-06] MEDS: allopurinol 300 mg Tablet 100 MG PO (08:32)
[2019-12-06 09:20] LABS: Phosphorus 8.8 mg/dL (2.5-4.5)
[2019-12-06] MEDS: azithromycin 500 MG in sodium chloride 0.9% 250 ML 250 MG IV (09:21)
[2019-12-06 09:40] LABS: Coronavirus Lab Test PTC SEE REPORT
--- NOTE | 2019-12-06 09:57 | PM.PN ---
Subjective Subjective: Interval history: Seen with bedside RN, using telemed. Remains intubated and vented with FiO2 40% and PEEP 5. UO is starting to improve a little. Hemodynamics remain stable, off pressors now. Medications: Reviewed: Yes Medication Review Details: Current Medications Acetaminophen (Tylenol) 650 mg PO Q4H PRN PRN Reason: MILD PAIN OR INCREASE TEMP Last Admin: 12/02/19 20:18 Dose: 650 mg Documented by: Albuterol Sulfate (Ventolin) 2 - 4 puff INHALATION QID.RESPIRATORY PRN PRN Reason: Shortness Of Breath Albuterol/Ipratropium (Duoneb) 3 ml INHALATION Q4H.RESPIRATORY NESSA Last Admin: 12/03/19 07:35 Dose: 3 ml Documented by: Albuterol/Ipratropium (Duoneb) 3 ml INHALATION Q4H.RESPIRATORY NESSA Last Admin: 12/02/19 03:46 Dose: Not Given Documented by: Allopurinol (Zyloprim) 100 mg PO DAILY [facility] Aspirin (Aspirin Chewable) 81 mg PO DAILY [facility] Last Admin: 12/02/19 10:20 Dose: 81 mg Documented by: Atenolol (Tenormin) 100 mg PO DAILY [facility] Last Admin: 12/02/19 10:23 Dose: Not Given Documented by: Atorvastatin Calcium (Lipitor) 80 mg PO DAILY [facility] Last Admin: 12/02/19 10:20 Dose: 80 mg Documented by: Dextrose (D50w) 25 ml IVP ONCE PRN; Protocol PRN Reason: hypoglycemia protocol Dextrose (D50w) 50 ml IVP PRN PRN; Protocol PRN Reason: hypoglycemia protocol Enoxaparin Sodium (Lovenox) 40 mg SUBCUT Q24H [facility] Last Admin: 12/02/19 11:44 Dose: 40 mg Documented by: Glucagon (Glucagen) 1 mg IM ONCE PRN; Protocol PRN Reason: Adult Acute Hypoglycemia Prot. Propofol (Diprivan) 1,000 mg in 100 mls @ 0 mls/hr IV .Q0M [facility]; Protocol Last Admin: 12/03/19 03:05 Dose: 25 mcg/kg/min, 23.8 mls/hr Documented by: Fentanyl 1,000 mcg/ Sodium (Chloride) 100 mls @ 0 mls/hr IV .Q0M [facility]; Protocol Last Titration: 12/02/19 22:50 Dose: 75 mcg/hr, 7.5 mls/hr Documented by: Dextrose (D5w) 500 mls @ 100 mls/hr IV ONCE PRN; Protocol PRN Reason: Adult Acute Hypoglycemia Prot Dextrose/Sodium Chloride (Dextrose 5%-Sod Chloride 0.9%) 1,000 mls @ 75 mls/hr IV .[id number] [facility] Last Admin: 12/02/19 20:21 Dose: 75 mls/hr Documented by: Norepinephrine Bitartrate 4 mg (/ Dextrose) 254 mls @ 0 mls/hr IV .Q0M [facility]; Protocol Linezolid (Zyvox Premix) 600 mg in 300 mls @ 300 mls/hr IV Q12H [facility]; Protocol Last Infusion: 12/03/19 02:59 Dose: Infused Documented by: Azithromycin 500 mg/ Sodium (Chloride) 250 mls @ 250 mls/hr IV Q24H [facility]; Protocol Last Admin: 12/02/19 10:21 Dose: 250 mls/hr Documented by: Imipenem/Cilastatin Sodium 250 (mg/ Sodium Chloride) 100 mls @ 200 mls/hr IV Q6H [facility]; Protocol Last Admin: 12/03/19 02:55 Dose: 200 mls/hr Documented by: Insulin Aspart (Novolog) 0 unit SUBCUT TIDWM [facility]; Protocol Last Admin: 12/02/19 17:14 Dose: Not Given Documented by: Montelukast Sodium (Singulair) 10 mg PO DAILY [facility] Last Admin: 12/02/19 10:20 Dose: 10 mg Documented by: Non-Formulary Medication (Insulin Degludec [Tresiba Flextouch U-200]) 20 unit SUBCUT DAILY [facility] Non-Formulary Medication (Mometasone-Formoterol [Dulera]) 2 puff INHALATION BID [facility] Last Admin: 12/01/19 16:50 Dose: Not Given Documented by: Ondansetron HCl (Zofran) 4 mg IVP Q8H PRN PRN Reason: vomiting, or N/V if npo Pantoprazole Sodium (Protonix) 40 mg IVP DAILY [facility] Last Admin: 12/02/19 10:21 Dose: 40 mg Documented by: Vitals/I&O/Wt Last Vital Signs Temp 98 F 12/05/19 04:00 Pulse 79 12/06/19 09:00 Resp 20 H 12/06/19 09:19 BP 115/59 12/06/19 09:00 Pulse Ox 96 12/06/19 09:00 12/05/19 12/06/19 12/06/19 22:59 06:59 14:59 Intake Total 355.833 / 877.283 744 / 1621.283 Output Total 800 / 1025 800 / 1825 300 / 300 Balance -444.167 / -147.717 -56 / -203.717 -300 / -300 Weight last 48 hrs Weight 165.062 kg Weight 165.062 kg Weight 164.767 kg Physical Exam Narrative: EXAM NARRATIVE: Exam performed with telemed with the aid of the bedside RN Intubated and vented HEENT: Wet mucosa, elevated jvp Lungs: Bilateral rhonchi, good air entry CVS: 1/2 heard Extremity: trace to 1+ edema Urinary Catheter Management^: Coude: Cath Placed During This Visit: yes Reason for Continuing Indwelling Catheter: Accurate Measurement of Urinary Output in Critically Ill Patients Urinary Catheter Date of Insertion: 12/01/19 Urinary Catheter Time of Insertion: 18:00 Data : 12/06/19 03:11 12/06/19 03:11 A&P Additional A&P Information 1. TEDDY - picture consistent with ATN, now progressively more oligoanuric - renal imaging still needed and renal US ordered (ok to be done after COVID is ruled out) - urine sodium 36, but no creatinine for FE Na - situation today is very precarious; ie if there is any pulm edema after extubation then dialysis availability will be the prudent option - dialysis today - 3K, UF 2-3L - daily eval prior to order in am - dose meds for eGFR < 15 2. Lytes look ok with non critical aberration 3. VDRF - vent settings noted - weaning as tolerated in the next 24-48hrs 4. Pneumonia - COVI rule out - Primaxin and Azithromycin 5. Anemia - mild, follow H/H, no iron/EPO at this time - d/w Bedside RN and Dr Urena - exam and interview via telemed Mau Sawyer MD [facility] [phone] Attestations Medical Necessity Statement*: eval for TEDDY Coding Level of Care Code Acute Costumed Character for [employer] [employer]
[2019-12-06 10:35] LABS: ABG PCO2 41.4 mmHg (35-45); ABG PH Result 7.35 (7.35-7.45); Base Excess ABG -2.9 mmol/L (-2.0-2.0); Blood Gas Allen Test Pos; Blood Gas Sample Site Radial, left; Blood Gas Sample Type Arterial; Blood Gas Tidal Volume 0.55; HCO3 ABG 22.6 mmol/L (22-26); Oxygen Device VENT
[2019-12-06] MEDS: enoxaparin 30 mg/0.3 mL Syringe SUBCUT (11:57)
--- NOTE | 2019-12-06 12:11 | PC.NURSE ---
silva output low check placement and irrigated with return and repositined with urine out noted ..Dr Olguin here for consult check dialysis catheter unable to advance and cath too short will need to go surgery have a tunneled catheter placed .will plan to schedule in am if needed . attempted awaken earlier became very agitated kicking legs and plulling wire off ect . Dr Urena here and started versed in edition to meds
--- NOTE | 2019-12-06 12:20 | PM.CONSULT ---
Providers/Reason For Consult Consulting Physican/Specialty*: Juan Urena MD Reason for Consult*: Nonfunctioning dialysis catheter Attending Physician: Juan Urena MD Primary Care Provider: Stewart Rosario MD History of Present Illness History of Present Illness Arnol Guzman is a 49 year old male who developed acute renal failure secondary to sepsis from pneumonia. Patient had a dialysis catheter placed earlier this week and was used couple of times but it was not functioning well. Patient is 13 L positive and while he is making urine, up to 1900 cc yesterday it was felt that he might need further diuresis and or dialysis before he is ready for extubation. Review of Systems General: Reports: 10 or more systems reviewed and unremarkable except in HPI and below Meds/Allergies Home Medications and Allergies Home Medications Medication Instructions Recorded Confirmed Last Taken Type albuterol sulfate [ProAir HFA] 2 - 4 puff INHALATION QID PRN 07/14/19 12/01/19 07/14/19 History allopurinol 300 mg PO DAILY 07/14/19 12/01/19 10/15/19 History aspirin [Aspir-81] 81 mg PO DAILY 07/14/19 12/01/19 10/15/19 History atenolol 100 mg PO DAILY 07/14/19 12/01/19 10/15/19 History atorvastatin [Lipitor] 80 mg PO DAILY 07/14/19 12/01/19 10/13/19 History loratadine 10 mg PO DAILY 07/14/19 12/01/19 10/15/19 History metformin 500 mg PO BID 07/14/19 12/01/19 10/15/19 History montelukast [Singulair] 10 mg PO DAILY 07/14/19 12/01/19 10/14/19 History omeprazole 40 mg PO DAILY 07/14/19 12/01/19 10/14/19 History lisinopril 20 mg PO DAILY 30 Days #30 tab 07/15/19 12/01/19 10/15/19 Rx mometasone-formoterol HFA 200 2 puff INHALATION BID 08/12/19 12/01/19 10/14/19 History mcg-5 mcg/actuation aerosol inhaler insulin degludec 200 unit/mL (3 20 unit SUBCUT DAILY ml 10/14/19 12/01/19 Unknown History mL) subcutaneous pen potassium chloride 20 meq PO TID #15 tab 11/25/19 12/01/19 Unknown Rx docusate sodium 200 mg PO BEDTIME 12/01/19 12/01/19 Unknown History furosemide 40 mg PO DAILY 12/01/19 12/01/19 Unknown History Allergies Allergy/AdvReac Type Severity Reaction Status Date / Time Penicillins Allergy ALGY-Hives Verified 11/21/19 13:02 diltiazem [From Cardizem] AdvReac ADR/ALGY-Pa Verified 11/21/19 13:02 lpitations Current Medications Current Medications Generic Name Dose Route Start Last Admin Trade Name Freq PRN Reason Stop Dose Admin Acetaminophen 650 mg 12/01/19 22:04 12/02/19 20:18 Tylenol PO 650 mg Q4H PRN Administration MILD PAIN OR INCREASE TEMP Albuterol/Ipratropium 3 ml 12/01/19 16:00 12/06/19 11:23 Duoneb INHALATION 3 ml Q4H.RESPIRATORY NESSA Administration Allopurinol 100 mg 12/03/19 09:00 12/06/19 08:32 Zyloprim PO 100 mg DAILY NESSA Administration Aspirin 81 mg 12/02/19 09:30 12/06/19 08:31 Aspirin Chewable PO 81 mg DAILY NESSA Administration Atenolol 100 mg 12/02/19 09:00 12/06/19 08:52 Tenormin PO Not Given DAILY NESSA Atorvastatin Calcium 80 mg 12/02/19 09:00 12/06/19 08:32 Lipitor PO 80 mg DAILY NESSA Administration Dextrose 50 ml 12/01/19 16:51 12/03/19 09:57 D50w IVP 50 ml PRN PRN Administration hypoglycemia protocol Protocol Enoxaparin Sodium 30 mg 12/04/19 12:30 12/06/19 11:57 Lovenox SUBCUT 30 mg Q24H NESSA Administration Fentanyl 1,000 mcg/ Sodium 100 mls @ 0 mls/hr 12/01/19 15:30 12/05/19 20:31 Chloride IV 100 mcg/hr .Q0M NESSA 10 mls/hr Administration Protocol Per Protocol Dextrose/Sodium Chloride 1,000 mls @ 75 mls/hr 12/01/19 17:45 12/05/19 15:31 Dextrose 5%-Sod Chloride 0.9% IV Not Given .[id number] NESSA Norepinephrine Bitartrate 4 mg 254 mls @ 0 mls/hr 12/01/19 18:00 12/05/19 05:19 / Dextrose IV 0 mcg/min .Q0M NESSA 0 mls/hr Titration Protocol Per Protocol Linezolid 600 mg in 300 mls @ 300 mls/hr 12/02/19 10:00 12/05/19 12:01 Zyvox Premix IV 100 mls/hr Q12H NESSA Administration Protocol Azithromycin 500 mg/ Sodium 250 mls @ 250 mls/hr 12/02/19 09:30 12/06/19 09:21 Chloride IV 250 mls/hr Q24H NESSA Administration Protocol Imipenem/Cilastatin Sodium 250 100 mls @ 200 mls/hr 12/02/19 21:00 12/05/19 21:04 mg/ Sodium Chloride IV 120 mls/hr Q6H NESSA Administration Protocol Dexmedetomidine HCl 400 mcg/ 104 mls @ 0 mls/hr 12/04/19 07:45 12/06/19 01:39 Sodium Chloride IV 0.5 mcg/kg/hr .Q0M NESSA 21.3 mls/hr Administration Protocol Per Protocol Midazolam HCl 100 mg/ Sodium 100 mls @ 0 mls/hr 12/06/19 09:30 12/06/19 09:34 Chloride IV 2 mg/hr .Q0M NESSA 2 mls/hr Administration Protocol Per Protocol Insulin Aspart 0 unit 12/01/19 18:00 12/06/19 11:57 Novolog SUBCUT 4 unit TIDWM NESSA Administration Protocol Lorazepam 2 mg 12/04/19 11:05 12/05/19 08:14 Ativan IVP 2 mg Q4H PRN Administration ANXIETY Montelukast Sodium 10 mg 12/02/19 09:00 12/06/19 08:31 Singulair PO 10 mg DAILY NESSA Administration Non-Formulary Medication 2 puff 12/01/19 18:00 12/01/19 16:50 Mometasone-Formoterol [Dulera] INHALATION Not Given BID NESSA Pantoprazole Sodium 40 mg 12/02/19 09:00 12/06/19 08:30 Protonix IVP 40 mg DAILY NESSA Administration PFSH Acute PFSH: Medical History Diabetes Gout Hyperlipemia, mixed Hypertension Morbid (severe) obesity due to excess calories OPAL (obstructive sleep apnea) Pneumonia Surgical History History of adenoidectomy History of hernia repair History of tonsillectomy History of umbilical hernia repair Family History Mother Hypertension CAD (coronary artery disease) Stroke Social History Smoking and tobacco status: former smoker Second hand smoke exposure: Yes Alcohol intake: never Lives independently: Yes Household members: friend(s) Vitals/I&O/Wt Last Vital Signs Temp 98 F 12/05/19 04:00 Pulse 72 12/06/19 11:30 Resp 16 12/06/19 11:25 BP 107/61 12/06/19 10:00 Pulse Ox 98 12/06/19 11:23 12/05/19 12/06/19 12/06/19 22:59 06:59 14:59 Intake Total 355.833 / 1621.283 744 / 1621.283 Output Total 800 / 1825 800 / 1825 300 / 300 Balance -444.167 / -203.717 -56 / -203.717 -300 / -300 Weight last 48 hrs Weight 363 lb 14.4 oz Weight 363 lb 14.4 oz Physical Exam Narrative: EXAM NARRATIVE: HEENT: Normocephalic, intubated, right IJ dialysis catheter in place Eye: Sclera /conjunctiva normal Respiratory and chest: On ventilator Cardiovascular: Normal S1 and S2 heart sounds Skin: Intact, no lesions appreciated on gross exam Urinary Catheter Management^: Coude: Cath Placed During This Visit: yes Reason for Continuing Indwelling Catheter: Accurate Measurement of Urinary Output in Critically Ill Patients Urinary Catheter Date of Insertion: 12/01/19 Urinary Catheter Time of Insertion: 18:00 Data Micro: Micro: Microbiology 12/01/19 10:55 Blood Culture - Fi nal Blood NO GROWTH AFTER 5 DAYS 12/01/19 10:39 Blood Culture - Fi nal Blood NO GROWTH AFTER 5 DAYS A&P Assessment and plan (1) Acute renal failure: 49-year-old gentleman who developed acute renal failure secondary to sepsis from pneumonia. Patient had a dialysis catheter placed by Dr. Owusu earlier this week but it is not functioning well. Chest x-ray today shows the tip of the catheter in the proximal SVC . At present the only option would be tunneled dialysis catheter which is longer since the present dialysis catheter we have at [facility] is 16 cm long and it is all the way up to the hub when Dr. Owusu had placed it. The other option would be subclavian dialysis catheter. Discussed the case with Dr. Walker and the plan is to try and diurese him today with possible extubation tomorrow. If it is felt that he would need dialysis for successful extubation then we can plan for placement of a tunneled catheter. Status: Acute Coding Level of Care Code Acute [facility] [employer] Operations Staff [facility] Diagnoses Acute renal failure N17.9
--- NOTE | 2019-12-06 13:26 | PC.NURSE ---
very restless and agitated at this time .....pulled off pulse ox and throwingl legg off bed. linen change done and bottom blister right buttock and bruising left cheeck cream applied and pericare done increased precedex at this time
[2019-12-06 13:28] LABS: Glucose Point of Care 191 mg/dL (70-110)
--- NOTE | 2019-12-06 14:09 | P.PN_ITS ---
Subjective Subjective: Interval history: Overnight patient did diurese 1800 cc after 80 mg of Lasix, chest x-ray this morning still looks wet, lungs sound a bit wet, he is +13 L, there is been issues with his right dialysis catheter placement, patient's creatinine is improved to 5.8, this morning off sedation, patient is able to follow, and squeeze my fingers, nods his head, but is quite agitated, remains afebrile, normotensive no pressors required in the last 24 hours, I have consulted Dr. Olguin for exchange of dialysis catheter, nephrology is in agreement, however Dr. Olguin would prefer this to be done in the OR, will plan to diurese today, if adequate response, plan on extubation tomorrow, if inadequate response, will go ahead with dialysis catheter placement in OR, dialyzed and then hopefully extubation should be simpler and should have a better clinical course after extubation as I am worried that he is fluid overloaded, and after extubation he would have a high risk of reintubation Vitals/I&O/Wt Last Vital Signs Temp 98 F 12/05/19 04:00 Pulse 80 12/06/19 14:00 Resp 16 12/06/19 13:51 BP 112/61 12/06/19 14:00 Pulse Ox 97 12/06/19 14:00 12/05/19 12/06/19 12/06/19 22:59 06:59 14:59 Intake Total 355.833 / 877.283 744 / 1621.283 Output Total 800 / 1025 800 / 1825 300 / 300 Balance -444.167 / -147.717 -56 / -203.717 -300 / -300 Weight last 48 hrs Weight 165.062 kg Weight 165.062 kg Physical Exam Narrative: EXAM NARRATIVE: Off sedation, follows commands, squeeze my fingers, nodding yes Const: COMMON NORMALS: no acute distress GENERAL APPEARANCE: cooperative and comfortable OTHER: Intubated, sedated HENMT: COMMON NORMALS: normocephalic HEAD & SCALP: normocephalic Eye: COMMON NORMALS: Equal, round and reactive pupils present, EOMs intact bilaterally and no papilledema GENERAL EYE: appearance normal, both eyes and all related structures PUPIL: Yes Equal, round and reactive pupils present DIRECT OPHTHALMOSCOPY: Yes no papilledema Neck/C-Spine: COMMON NORMALS: full ROM, no lymphadenopathy, no JVD and Thyroid normal THYROID: Thyroid normal Lymph: LYMPHATIC: no lymphadenopathy noted Resp: COMMON NORMALS: normal respiratory effort, No retractions and No use of accessory muscles AUSCULTATION: diminished lung sounds on the left Cardio: COMMON NORMALS: no JVD, regular rate, regular rhythm, S1 normal heart sound present, S2 normal heart sound present, No gallops present (Cardio), No clicks present (Cardio) and No murmurs present (Cardio) RATE: regular rate RHYTHM: regular rhythm HEART SOUNDS: S1 normal heart sound present and S2 normal heart sound present GI: COMMON NORMALS: Normal to inspection, nondistended, normoactive bowel sounds present, Soft to palpation, non-tender, No hepatosplenomegaly present, no masses and no bruits PALPATION: Yes Soft to palpation and Yes No hepatosp lenomegaly present Extremity: COMMON NORMALS: normal to inspection, full ROM, capillary refill normal, no clubbing, cyanosis or edema, no calf tenderness and no pedal edema NARRATIVE EXTREMITY EXAM: 1+ pitting edema Urinary Catheter Management^: Coude: Cath Placed During This Visit: yes Reason for Continuing Indwelling Catheter: Accurate Measurement of Urinary Output in Critically Ill Patients Urinary Catheter Date of Insertion: 12/01/19 Urinary Catheter Time of Insertion: 18:00 Data : 12/06/19 03:11 12/06/19 03:11 Micro: Microbiology 12/01/19 10:55 Blood Culture - Final Blood NO GROWTH AFTER 5 DAYS 12/01/19 10:39 Blood Culture - Final Blood NO GROWTH AFTER 5 DAYS A&P Assessment and plan (1) Acute respiratory failure with hypoxia: -Acute hypoxic respiratory failure secondary to left-sided pneumonia, with severe sepsis, acute renal failure, multiorgan dysfunction, with evidence of acute respiratory distress syndrome -CT of the chest shows dense pneumonia in the left upper and left lower lobes with additional patchy bilateral areas of consolidation -+13 L since admission -Chest x-ray this morning continue left-sided pneumonia, with evidence of bilateral pulmonary edema Plan: -Admitted to the ICU -Mechanical ventilation, minimize PEEP, minimize FiO2 -Switch to Precedex and fentanyl, add Versed if needed -Protonix for GI prophylaxis, Lovenox for DVT prophylaxis -Broad-spectrum antibiotics Zyvox, and Primaxin, azithromycin for atypical coverage, cover for healthcare associated pneumonia as he was admitted 3 months ago -Discontinue IV hydration -Will diurese with Bumex and metolazone this afternoon -Maintain map greater than 65, 2 peripheral IVs, right dialysis catheter placement by Dr. Owusu, currently Levophed is off -Follow blood cultures, urine cultures, sputum cultures: All far during this admission have been unremarkable -Continue tube feeds -COVID-19 first test negative, repeat test negative -Blood sugars are reasonable today, no hypoglycemic episodes -Patient's prognosis guarded, condition is stable -Plan is to diurese today, monitor creatinine, monitor urine output, if tomorrow patient looks less fluid overloaded, will plan for extubation, if creatinine goes up and or looks fluid overloaded then plan for OR tomorrow for dialysis catheter exchange followed by dialysis. Again the thinking here is if I were to extubate him in his current state I feel that he is so fluid overloaded that he has a high risk of reintubation, high risk of pulmonary edema, high risk of flash pulmonary edema, high risk of worsening kidney function and dialysis cath eter placement in the near future. For now keeping him intubated, and diuresing him is the best option for optimal recovery Status: Acute (2) Sepsis: Status: Acute Qualifiers: Sepsis acute organ dysfunction status: without acute organ dysfunction Sepsis type: sepsis due to unspecified organism Qualified Code(s): A41.9 - Sepsis, unspecified organism (3) ARDS (adult respiratory distress syndrome): -Given CT scan findings, patient's hypoxia, has evidence of acute respiratory distress syndrome secondary to pneumonia -Minimize FiO2, minimize tidal volumes -We will hold off on steroids for now -Continue nebulizer treatments Status: Acute (4) Pneumonia: Status: Acute Qualifiers: Laterality: left Lung location: upper lobe of lung Pneumonia type: due to unspecified organism Qualified Code(s): J18.9 - Pneumonia, unspecified organism (5) Acute renal failure: -Creatinine has plateaued to 5.8, urine output 1800 cc, evidence of acute tubular necrosis, likely secondary to severe sepsis -Nephrology has been consulted -Dialysis catheter placed by Dr. Owusu, with trouble with flow, keep in till tomorrow Status: Acute (6) Multiorgan failure: -Creatinine up to 6.2, elevated transaminitis, elevated INR Status: Acute (7) CHF (congestive heart failure): Status: Acute Qualifiers: Heart failure chronicity: acute on chronic Heart failure type: unspe cified Qualified Code(s): I50.9 - Heart failure, unspecified (8) Acquired urinary meatal stenosis: Status: Acute (9) Hypertension: Status: Chronic Qualifiers: Hypertension type: essential hypertension Qualified Code(s): I10 - Essential (primary) hypertension (10) Diabetes: Low-dose sliding scale Status: Chronic Qualifiers: Diabetes mellitus type: type 2 Diabetes mellitus senior care insulin use: with senior care use Diabetes mellitus complication status: with circulatory complication (11) OPAL (obstructive sleep apnea): Status: Acute (12) Morbid (severe) obesity due to excess calories: Status: Acute Attestations Medical Necessity Statement*: Patient requires continued hospitalization due to sepsis second to left-sided pneumonia, acute renal failure, multiorgan failure Coding Level of Care Code Acute Transitions Rn Care Coordinator for [facility] Fwd Diagnoses Acute respiratory failure with hypoxia J96.01 Sepsis A41.9 Sepsis acute organ dysfunction status: without acute organ dysfunction Sepsis type: sepsis due to unspecified organism ARDS (adult respiratory distress syndrome) J80 Pneumonia J18.9 Laterality: left Lung location: upper lobe of lung Pneumonia type: due to unspecified organism Acute renal failure N17.9 Multiorgan failure CHF (congestive heart failure) I50.9 Heart failure chronicity: acute on chronic Heart failure type: unspecified Acquired urinary meatal stenosis Hypertension I10 Hypertension type: essential hypertension Diabetes E11.9 Diabetes mellitus type: type 2 Diabetes mellitus watermelon inspector insulin use: with watermelon inspector use Diabetes mellitus complication status: with circulatory complication OPAL (obstructive sleep apnea) G47.33 Morbid (severe) obesity due to excess calories E66.01
--- NOTE | 2019-12-06 14:58 | PC.NURSE ---
tube feeding has been on hold for abd ultrasound . tech her now to check procedure
[2019-12-06] MEDS: bumetanide 0.25 mg/mL SDV 10 mL 2 MG IV (17:15)
[2019-12-06] MEDS: metOLazone 5 MG Tablet PO (17:15)
[2019-12-06] MEDS: linezolid premix 600 MG/300 ML PREMIX 300 MG IV (23:53)
[2019-12-07] VITALS (67 sets, daily range): BP systolic 82–132; BP diastolic 38–97; PULSE 73–87; RESP 10–29; TEMP 37.7; O2SAT 89–100
[2019-12-07 00:48] LABS: Glucose Point of Care 131 mg/dL (70-110)
[2019-12-07 02:36] LABS: Basophils % 0.3 %; Eosinophils % 0.4 %; Hematocrit 31.6 % (42.0-52.0); Lymphocytes # 0.5 10^3/uL (0.8-4.8); Lymphocytes % 7.7 %; Mean Corpuscular HGB Conc 28.5 g/dL (30.0-36.0); Mean Corpuscular Hemoglobin 24.3 pg (28.0-34.0); Mean Corpuscular Volume 85.2 fL (80-94); Mean Platelet Volume 10.3 fL (7.4-10.4); Monocytes # 0.3 10^3/uL (0.2-0.9); Monocytes % 3.9 %; Neutrophils # 6.1 10^3/uL (1.8-7.7); Nucleated Red Blood Cells % 0 %; Platelet Count 234 10^3/cmm (130-400); Red Blood Count 3.71 10^6/uL (4.1-5.3); Red Cell Distribution Width 17.5 % (12.1-15.1)
[2019-12-07 02:45] LABS: INR 1.23 (0.8-1.2)
[2019-12-07 02:50] LABS: Alanine Aminotransferase 7 U/L (0-41); Albumin Level 2.4 g/dL (3.5-5.2); Alkaline Phosphatase 233 IU/L (40-130); Anion Gap 25.3 (5-19); Aspartate Amino Transferase 86 U/L (0-40); Blood Urea Nitrogen 77 mg/dL (6-20); Calcium 7.4 mg/dL (8.5-10.5); Carbon Dioxide 19 mmol/L (22-29); Chloride 94 mmol/L (98-107); Globulin 4.2 g/dL (1.3-4.6); Glomerular Filtration Rate 11.2 mL/min (90-130); Glucose 162 mg/dL (65-115); Magnesium 2.5 mg/dL (1.7-2.3); Osmolality Calculated 279 mOsm/kg (285-295); Potassium 5.3 mmol/L (3.5-5.1); Sodium 133 mmol/L (136-145); Total Bilirubin 1.1 mg/dL (0.15-1.2); Total Protein 6.6 g/dL (6.6-8.7)
[2019-12-07 02:51] LABS: Lactic Sepsis W/Reflex 1.1 mmol/L (0.5-2.2)
[2019-12-07 02:54] LABS: Phosphorus 8.4 mg/dL (2.5-4.5)
[2019-12-07] MEDS: ipratropium-albuterol 3 mL Neb INHALATION ×6 (03:08→23:28)
[2019-12-07 03:13] LABS: Procalcitonin 4.09 ng/mL (0-0.5)
[2019-12-07 05:05] LABS: ABG PCO2 37.2 mmHg (35-45); ABG PH Result 7.36 (7.35-7.45); Base Excess ABG -4.1 mmol/L (-2.0-2.0); Blood Gas Allen Test Pos; Blood Gas Sample Site Radial, right; Blood Gas Sample Type Arterial; Blood Gas Tidal Volume 0.55; HCO3 ABG 20.9 mmol/L (22-26); Oxygen Device VENT; PO2 ABG 92.1 mmHg (80.0-100.0)
--- NOTE | 2019-12-07 07:00 | XRR_ITS ---
PROCEDURE INFORMATION: Exam: XR Chest, 1 View Exam date and time: 12/07/2019 4:49 AM Age: 49 years old Clinical indication: Dyspnea; Additional info: SOB TECHNIQUE: Imaging protocol: XR of the chest Views: 1 view. COMPARISON: CR (CHEST, ) 12/06/2019 8:55 AM FINDINGS: Tubes, catheters and devices: Endotracheal tube, feeding tube, and central venous catheter. The endotracheal tube terminates 4.9 cm above the jonnathan. Lungs: Hypoinflation, interstitial prominence, and mild airspace disease. When compared to the prior study, there is interval improvement in left-sided airspace disease. Pleural space: No significant pleural effusion. Heart/Mediastinum: Cardiomegaly. Bones/joints: Degenerative change. XR/XR chest 1V portable [id number] IMPRESSION: Hypoinflation, interstitial prominence, and mild airspace disease. When compared to the prior study, there is interval improvement in left-sided airspace disease.
[2019-12-07 07:29] LABS: Glucose Point of Care 271 mg/dL (70-110)
[2019-12-07] MEDS: bumetanide 0.25 mg/mL SDV 10 mL 2 MG IV ×2 (07:31→17:03)
[2019-12-07] MEDS: metOLazone 5 MG Tablet PO (07:31)
--- NOTE | 2019-12-07 07:46 | PC.NURSE ---
tube feeding on hold for possible surgery /possible extubation diuretics given
[2019-12-07] MEDS: allopurinol 300 mg Tablet 100 MG PO (08:31)
[2019-12-07] MEDS: pantoprazole 40 mg SDV IVP (08:32)
[2019-12-07] MEDS: atenolol 50 mg Tablet 100 MG PO (08:32)
[2019-12-07] MEDS: atorvastatin 40 mg Tablet 80 MG PO (08:32)
[2019-12-07] MEDS: aspirin 81 mg Chew Tablet PO (08:32)
[2019-12-07] MEDS: montelukast sodium 10 mg Tablet PO (08:49)
[2019-12-07] MEDS: azithromycin 500 MG in sodium chloride 0.9% 250 ML 250 MG IV (09:27)
[2019-12-07] MEDS: linezolid premix 600 MG/300 ML PREMIX 300 MG IV ×2 (10:18→20:26)
--- NOTE | 2019-12-07 10:37 | P.PN_ITS ---
Subjective Subjective: Interval history: Remains stable overnight, doing well on SBTs. Good urine output in response to Bumex and metolazone. Made total of 950 ml recorded. Minimal peripheral edema and lungs sounding more clear. No pressors and hemodynamics remain soft but generally stable Medications: Reviewed: Yes Medication Review Details: Current Medications Acetaminophen (Tylenol) 650 mg PO Q4H PRN PRN Reason: MILD PAIN OR INCREASE TEMP Last Admin: 12/02/19 20:18 Dose: 650 mg Documented by: Albuterol Sulfate (Ventolin) 2 - 4 puff INHALATION QID.RESPIRATORY PRN PRN Reason: Shortness Of Breath Albuterol/Ipratropium (Duoneb) 3 ml INHALATION Q4H.RESPIRATORY NESSA Last Admin: 12/03/19 07:35 Dose: 3 ml Documented by: Albuterol/Ipratropium (Duoneb) 3 ml INHALATION Q4H.RESPIRATORY NESSA Last Admin: 12/02/19 03:46 Dose: Not Given Documented by: Allopurinol (Zyloprim) 100 mg PO DAILY [facility] Aspirin (Aspirin Chewable) 81 mg PO DAILY [facility] Last Admin: 12/02/19 10:20 Dose: 81 mg Documented by: Atenolol (Tenormin) 100 mg PO DAILY [facility] Last Admin: 12/02/19 10:23 Dose: Not Given Documented by: Atorvastatin Calcium (Lipitor) 80 mg PO DAILY [facility] Last Admin: 12/02/19 10:20 Dose: 80 mg Documented by: Dextrose (D50w) 25 ml IVP ONCE PRN; Protocol PRN Reason: hypoglycemia protocol Dextrose (D50w) 50 ml IVP PRN PRN; Protocol PRN Reason: hypoglycemia protocol Enoxaparin Sodium (Lovenox) 40 mg SUBCUT Q24H [facility] Last Admin: 12/02/19 11:44 Dose: 40 mg Documented by: Glucagon (Glucagen) 1 mg IM ONCE PRN; Protocol PRN Reason: Adult Acute Hypoglycemia Prot. Propofol (Diprivan) 1,000 mg in 100 mls @ 0 mls/hr IV .Q0M NESSA; Protocol Last Admin: 12/03/19 03:05 Dose: 25 mcg/kg/min, 23.8 mls/hr Documented by: Fentanyl 1,000 mcg/ Sodium (Chloride) 100 mls @ 0 mls/hr IV .Q0M NESSA; Protocol Last Titration: 12/02/19 22:50 Dose: 75 mcg/hr, 7.5 mls/hr Documented by: Dextrose (D5w) 500 mls @ 100 mls/hr IV ONCE PRN; Protocol PRN Reason: Adult Acute Hypoglycemia Prot Dextrose/Sodium Chloride (Dextrose 5%-Sod Chloride 0.9%) 1,000 mls @ 75 mls/hr IV .[id number] NESSA Last Admin: 12/02/19 20:21 Dose: 75 mls/hr Documented by: Norepinephrine Bitartrate 4 mg (/ Dextrose) 254 mls @ 0 mls/hr IV .Q0M NESSA; Protocol Linezolid (Zyvox Premix) 600 mg in 300 mls @ 300 mls/hr IV Q12H NESSA; Protocol Last Infusion: 12/03/19 02:59 Dose: Infused Documented by: Azithromycin 500 mg/ Sodium (Chloride) 250 mls @ 250 mls/hr IV Q24H NESSA; Protocol Last Admin: 12/02/19 10:21 Dose: 250 mls/hr Documented by: Imipenem/Cilastatin Sodium 250 (mg/ Sodium Chloride) 100 mls @ 200 mls/hr IV Q6H NESSA; Protocol Last Admin: 12/03/19 02:55 Dose: 200 mls/hr Documented by: Insulin Aspart (Novolog) 0 unit SUBCUT TIDWM [facility]; Protocol Last Admin: 12/02/19 17:14 Dose: Not Given Documented by: Montelukast Sodium (Singulair) 10 mg PO DAILY [facility] Last Admin: 12/02/19 10:20 Dose: 10 mg Documented by: Non-Formulary Medication (Insulin Degludec [Tresiba Flextouch U-200]) 20 unit SUBCUT DAILY [facility] Non-Formulary Medication (Mometasone-Formoterol [Dulera]) 2 puff INHALATION BID [facility] Last Admin: 12/01/19 16:50 Dose: Not Given Documented by: Ondansetron HCl (Zofran) 4 mg IVP Q8H PRN PRN Reason: vomiting, or N/V if npo Pantoprazole Sodium (Protonix) 40 mg IVP DAILY [facility] Last Admin: 12/02/19 10:21 Dose: 40 mg Documented by: Vitals/I&O/Wt Last Vital Signs Temp 98 F 12/05/19 04:00 Pulse 79 12/07/19 10:00 Resp 20 H 12/07/19 10:20 BP 110/61 12/07/19 10:00 Pulse Ox 93 12/07/19 10:00 12/06/19 12/07/19 12/07/19 22:59 06:59 14:59 Intake Total 110.467 / 851.612 7400.166 / 3033.633 Output Total 300 / 600 350 / 950 300 / 300 Balance -189.533 / -512.691 2016.166 / 2083.633 -300 / -300 Weight last 48 hrs Weight 165.062 kg Weight 165.062 kg Physical Exam Narrative: EXAM NARRATIVE: Exam performed with telemed with the aid of the bedside RN Intubated and vented HEENT: Wet mucosa, elevated jvp Lungs: Bilateral rhonchi, good air entry CVS: 1/2 heard Extremity: trace to 1+ edema Urinary Catheter Management^: Coude: Cath Placed During This Visit: yes Reason for Continuing Indwelling Catheter: Accurate Measurement of Urinary Output in Critically Ill Patients Urinary Catheter Date of Insertion: 12/01/19 Urinary Catheter Time of Insertion: 18:00 Data : 12/07/19 02:15 12/07/19 02:15 Micro: Microbiology 12/01/19 10:55 Blood Culture - Final Blood NO GROWTH AFTER 5 DAYS 12/01/19 10:39 Blood Culture - Final Blood NO GROWTH AFTER 5 DAYS A&P Additional A&P Information 1. TEDDY - picture consistent with ATN, now progressively more oligoanuric - renal imaging reviewed, no hydro but incomplete visualization - urine sodium 36, but no creatinine for FE Na - On diuretics - Holding HD for the time being - dose meds for eGFR < 15 2. Lytes look ok with non critical aberration; monitor closely 3. VDRF - vent settings noted, FiO2 35% - SBTs today 4. Pneumonia - COVI ruled out - Primaxin and Azithromycin 5. Anemia - mild, follow H/H, no iron/EPO at this time - d/w Bedside RN and Dr Urena - exam and interview via telemed Mau Sawyer MD [facility] [phone] Attestations Medical Necessity Statement*: Eval for TEDDY Coding Level of Care Code Acute [employer] Team Member for [employer]
--- NOTE | 2019-12-07 10:42 | PC.NURSE ---
weaning off sedation for awake breathing weaning vent on cpap fio 2 of 35
[2019-12-07 12:28] LABS: Glucose Point of Care 192 mg/dL (70-110)
[2019-12-07] MEDS: enoxaparin 30 mg/0.3 mL Syringe SUBCUT (12:34)
--- NOTE | 2019-12-07 13:32 | PM.PN ---
Subjective Subjective: Interval history: Overnight patient remained normotensive, afebrile, urine output was 950 cc, was bloody, his Shaw has been flushed multiple times, has had some clots, was taken off sedation today, is slowly waking up, so far, does follow commands, nodding his head, opening his eyes, is trying to mouth words, is on minimal pressor support, has good tidal volumes, RSB I is between 60-90, but no tachycardia, no tachypnea, chest x-ray shows less pulmonary vascular congestion, creatinine down to 5.5, I have decided to hold dialysis catheter exchange, hold dialysis today, as patient is responding to diuresis, will attempt to extubate this afternoon Vitals/I&O/Wt Last Vital Signs Temp 98 F 12/05/19 04:00 Pulse 82 12/07/19 12:30 Resp 29 H 12/07/19 13:27 BP 96/61 12/07/19 12:30 Pulse Ox 96 12/07/19 12:30 12/06/19 12/07/19 12/07/19 22:59 06:59 14:59 Intake Total 110.467 / 819.203 5341.166 / 3033.633 Output Total 300 / 600 350 / 950 300 / 300 Balance -189.533 / -410.420 2240.166 / 2083.633 -300 / -300 Weight last 48 hrs Weight 165.062 kg Weight 165.062 kg Physical Exam Const: COMMON NORMALS: no acute distress OTHER: On minimal sedation, following commands such as nodding his head, opening his eyes HENMT: COMMON NORMALS: normocephalic HEAD & SCALP: normocephalic Neck/C-Spine: COMMON NORMALS: no JVD Resp: COMMON NORMALS: normal respiratory effort, No retractions, No use of accessory muscles and clear to auscultation bilaterally AUSCULTATION: clear to auscultation bilaterally Cardio: COMMON NORMALS: no JVD, regular rate, regular rhythm, S1 normal heart sound present and S2 normal heart sound present RATE: regular rate RHYTHM: regular rhythm HEART SOUNDS: S1 normal heart sound present and S2 normal heart sound present GI: COMMON NORMALS: Normal to inspection, nondistended, normoactive bowel sounds present, Soft to palpation, non-tender, No hepatosplenomegaly present, no masses and no bruits PALPATION: Yes Soft to palpation and Yes No hepatosplenomegaly present Extremity: COMMON NORMALS: capillary refill normal, no clubbing, cyanosis or edema and no calf tenderness NARRATIVE EXTREMITY EXAM: 1+ pitting edema Psych: COMMON NORMALS: mental status grossly normal Urinary Catheter Management^: Coude: Cath Placed During This Visit: yes Reason for Continuing Indwelling Catheter: Accurate Measurement of Urinary Output in Critically Ill Patients Urinary Catheter Date of Insertion: 12/01/19 Urinary Catheter Time of Insertion: 18:00 Data : 12/07/19 02:15 12/07/19 02:15 Micro: Microbiology 12/01/19 10:55 Blood Culture - Final Blood NO GROWTH AFTER 5 DAYS 12/01/19 10:39 Blood Culture - Final Blood NO GROWTH AFTER 5 DAYS A&P Assessment and plan (1) Acute respiratory failure with hypoxia: -Acute hypoxic respiratory failure secondary to left-sided pneumonia, with severe sepsis, acute renal failure, multiorgan dysfunction, with evidence of acute respiratory distress syndrome -CT of the chest shows dense pneumonia in the left upper and left lower lobes with additional patchy bilateral areas of consolidation -Chest x-ray this morning continue left-sided pneumonia, improved probably vascular congestion, white blood cell count 7, pH 7.37, pro-Eliud 4.09 -Right dialysis catheter line in place, Dr. Olguin believes that it needs to be slightly advanced, hold off on dialysis catheter exchange in the OR, as patient is responded to diuresis -I received Bumex and metolazone this morning -Doing well on weaning trial so far, will pursue to extubation this afternoon Plan: -Admitted to the ICU -Mechanical ventilation, minimize PEEP, minimize FiO2 -On Precedex, fentanyl and Versed -Protonix for GI prophylaxis, Lovenox for DVT prophylaxis -Broad-spectrum antibiotics Zyvox, and Primaxin, azithromycin for atypical coverage, cover for healthcare associated pneumonia as he was admitted 3 months ago -Will diurese with Bumex and metolazone again this afternoon -Maintain map greater than 65, 2 peripheral IVs, right dialysis catheter placement by Dr. Owusu, problems with flow, holding off on dialysis catheter exchange currently Levophed is off -Follow blood cultures, urine cultures, sputum cultures: All far during this admission have been unremarkable -Continue tube feeds -COVID-19 first test negative, repeat test negative -Blood sugars are reasonable today, no hypoglycemic episodes -Patient's prognosis guarded, condition is stable Status: Acute (2) Sepsis: Status: Acute Qualifiers: Sepsis acute organ dysfunction status: without acute organ dysfunction Sepsis type: sepsis due to unspecified organism Qualified Code(s): A41.9 - Sepsis, unspecified organism (3) ARDS (adult respiratory distress syndrome): -Given CT scan findings, patient's hypoxia, has evidence of acute respiratory distress syndrome secondary to pneumonia -Minimize FiO2, minimize tidal volumes -We will hold off on steroids for now -Continue nebulizer treatments Status: Acute (4) Pneumonia: Status: Acute Qualifiers: Laterality: left Lung location: upper lobe of lung Pneumonia type: due to unspecified organism Qualified Code(s): J18.9 - Pneumonia, unspecified organism (5) Acute renal failure: -Creatinine improved to 5.5, urine output 900 cc, evidence of acute tubular necrosis, likely secondary to severe sepsis -Nephrology has been consulted -Dialysis catheter placed by Dr. Owusu, with trouble with flow, keep in till tomorrow, no need for dialysis catheter exchange at this time Status: Acute (6) Multiorgan failure: -Creatinine proved to 5.5, elevated transaminitis which is improving, elevated INR which is improving to 1.23 Status: Acute (7) CHF (congestive heart failure): Status: Acute Qualifiers: Heart failure chronicity: acute on chronic Heart failure type: unspecified Qualified Code(s): I50.9 - Heart failure, unspecified (8) Acquired urinary meatal stenosis: Status: Acute (9) Hypertension: Status: Chronic Qualifiers: Hypertension type: essential hypertension Qualified Code(s): I10 - Essential (primary) hypertension (10) Diabetes: Low-dose sliding scale Status: Chronic Qualifiers: Diabetes mellitus type: type 2 Diabetes mellitus terminal make up operator insulin use: with terminal make up operator use Diabetes mellitus complication status: with circulatory complication (11) OPAL (obstructive sleep apnea): Status: Acute (12) Morbid (severe) obesity due to excess calories: Status: Acute Attestations Medical Necessity Statement*: Patient requires continued hospitalization due to acute respiratory failure secondary to left-sided pneumonia, multiorgan failure, acute renal failure Coding Level of Care Code Acute Rv Technician for [facility] Diagnoses Acute respiratory failure with hypoxia J96.01 Sepsis A41.9 Sepsis acute organ dysfunction status: without acute organ dysfunction Sepsis type: sepsis due to unspecified organism ARDS (adult respiratory distress syndrome) J80 Pneumonia J18.9 Laterality: left Lung location: upper lobe of lung Pneumonia type: due to unspecified organism Acute renal failure N17.9 Multiorgan failure CHF (congestive heart failure) I50.9 Heart failure chronicity: acute on chronic Heart failure type: unspecified Acquired urinary meatal stenosis Hypertension I10 Hypertension type: essential hypertension Diabetes E11.9 Diabetes mellitus type: type 2 Diabetes mellitus halfway insulin use: with terminal make up operator use Diabetes mellitus complication status: with circulatory complication OPAL (obstructive sleep apnea) G47.33 Morbid (severe) obesity due to excess calories E66.01
--- NOTE | 2019-12-07 14:38 | PC.NURSE ---
extubated prior off vent now on bipap following commands at this time restraints off at this time . family notified
--- NOTE | 2019-12-07 14:40 | PC.NURSE ---
Addendum entered by Kimmy Little RN 12/07/19 14:45: this nurse witnessed waste of 90mg fentanyl and 20mg versed. Jameel Little RN Original Note: wasted 90mg of fentynyl and wasted 20mg of versed at this time with witness. Kimmy Thakkar RN
[2019-12-07 16:46] LABS: Glucose Point of Care 260 mg/dL (70-110)
[2019-12-07 17:35] LABS: ABG PCO2 45.7 mmHg (35-45); Alveolar-Arterial Oxygen Gradi 129.4 mmHg (5-10); Arterial Blood Gas Hematocrit 28.5 % (42-52); Blood Gas Allen Test Pos; Blood Gas Sample Site Radial, left; Blood Gas Sample Type Arterial; Carboxyhemoglobin 1.5 %THgb (0.4-20.1); HCO3 ABG 22.4 mmol/L (22-26); Ionized Calcium Level - ABG 0.9 mmol/L (1.1-1.4); Methemoglobin 1.1 % (0.4-1.5); Oxygen Device HAG; Oxygen Saturation ABG 86.2; PO2 ABG 62.2 mmHg (80.0-100.0); Potassium Level - ABG 5.1 mmol/L (3.5-5.0); Total Hemoglobin 9.3 g/dL (14-18)
[2019-12-07] MEDS: sodium bicarbonate 8.4% 1 mEq/mL 50mL Syr 50 MEQ IVP (18:15)
[2019-12-08] VITALS (43 sets, daily range): BP systolic 96–142; BP diastolic 50–96; PULSE 82–93; RESP 8–31; TEMP 36.4–37; O2SAT 82–100
[2019-12-08 00:25] LABS: Glucose Point of Care 129 mg/dL (70-110)
[2019-12-08] MEDS: ipratropium-albuterol 3 mL Neb INHALATION ×6 (04:24→23:32)
[2019-12-08 04:53] LABS: Basophils % 0.1 %; Eosinophils % 0.2 %; Hematocrit 31.9 % (42.0-52.0); Lymphocytes # 0.6 10^3/uL (0.8-4.8); Lymphocytes % 4.5 %; Mean Corpuscular HGB Conc 28.2 g/dL (30.0-36.0); Mean Corpuscular Hemoglobin 24.1 pg (28.0-34.0); Mean Corpuscular Volume 85.5 fL (80-94); Monocytes # 0.4 10^3/uL (0.2-0.9); Monocytes % 3.2 %; Neutrophils # 12.4 10^3/uL (1.8-7.7); Neutrophils % 91.2 %; Nucleated Red Blood Cells % 0 %; Platelet Count 307 10^3/cmm (130-400); Red Blood Count 3.73 10^6/uL (4.1-5.3); Red Cell Distribution Width 17.4 % (12.1-15.1); White Blood Count 13.6 10^3/uL (4.0-10.0)
[2019-12-08 05:03] LABS: INR 1.32 (0.8-1.2)
[2019-12-08 05:11] LABS: Alanine Aminotransferase < 5 U/L (0-41); Albumin Level 2.4 g/dL (3.5-5.2); Alkaline Phosphatase 291 IU/L (40-130); Anion Gap 24.7 (5-19); Aspartate Amino Transferase 66 U/L (0-40); Calcium 7.7 mg/dL (8.5-10.5); Carbon Dioxide 22 mmol/L (22-29); Chloride 94 mmol/L (98-107); Glomerular Filtration Rate 10.1 mL/min (90-130); Glucose 136 mg/dL (65-115); Magnesium 2.3 mg/dL (1.7-2.3); Osmolality Calculated 285 mOsm/kg (285-295); Potassium 4.7 mmol/L (3.5-5.1); Sodium 136 mmol/L (136-145); Total Bilirubin 1.3 mg/dL (0.15-1.2); Total Protein 7.4 g/dL (6.6-8.7)
[2019-12-08 05:22] LABS: Procalcitonin 4.63 ng/mL (0-0.5)
[2019-12-08 05:57] LABS: Creatine Phosphokinase 1024 U/L (39-308)
[2019-12-08 05:58] LABS: Blood Urea Nitrogen 91 mg/dL (6-20)
--- NOTE | 2019-12-08 06:09 | PC.NURSE ---
RN called critical BUN, Cr, Phos and CK to DR ALVAREZ. physician discusses with nurse plans for dialysis and new dialysis line today.
[2019-12-08 06:18] LABS: Glucose Point of Care 129 mg/dL (70-110)
--- NOTE | 2019-12-08 07:00 | XR_ITS ---
WS: [id number] XR chest 1V portable [id number] REASON FOR EXAM: sob FINDINGS: The endotracheal tube has been removed as well as a feeding tube. A central line is seen extends from the jugular approach on the right. The lung davis are hypoaerated. There is a patchy infiltrate in the basilar portion of the right lower lung. XR/XR chest 1V portable [id number] IMPRESSION: Active pneumonia right lower lung Lung davis are mildly hypoaerated Central line extends from the jugular approach on the lateral right in good pos ition
--- NOTE | 2019-12-08 07:03 | PM.PN ---
Subjective Subjective: Interval history: extubated, lethargic. still sob and using nc02 Medications: Reviewed: Yes Medication Review Details: Current Medications Acetaminophen (Tylenol) 650 mg PO Q4H PRN PRN Reason: MILD PAIN OR INCREASE TEMP Last Admin: 12/02/19 20:18 Dose: 650 mg Documented by: Albuterol Sulfate (Ventolin) 2 - 4 puff INHALATION QID.RESPIRATORY PRN PRN Reason: Shortness Of Breath Albuterol/Ipratropium (Duoneb) 3 ml INHALATION Q4H.RESPIRATORY FORMERLY [facility], [facility]1983 Last Admin: 12/08/19 04:24 Dose: 3 ml Documented by: Allopurinol (Zyloprim) 100 mg PO DAILY FORMERLY [facility], [facility]1983 Last Admin: 12/07/19 08:31 Dose: 100 mg Documented by: Aspirin (Aspirin Chewable) 81 mg PO DAILY FORMERLY [facility], [facility]1983 Last Admin: 12/07/19 08:32 Dose: 81 mg Documented by: Atenolol (Tenormin) 100 mg PO DAILY FORMERLY [facility], [facility]1983 Last Admin: 12/07/19 08:32 Dose: 100 mg Documented by: Atorvastatin Calcium (Lipitor) 80 mg PO DAILY FOR[facility]LY [facility], [facility]1983 Last Admin: 12/07/19 08:32 Dose: 80 mg Documented by: Dextrose (D50w) 50 ml IVP PRN PRN; Protocol PRN Reason: hypoglycemia protocol Last Admin: 12/03/19 09:57 Dose: 50 ml Documented by: Enoxaparin Sodium (Lovenox) 30 mg SUBCUT Q24H FORMERLY [facility], [facility] Last Admin: 12/07/19 12:34 Dose: 30 mg Documented by: Glucagon (Glucagen) 1 mg IM ONCE PRN; Protocol PRN Reason: Adult Acute Hypoglycemia Prot. Dextrose (D5w) 500 mls @ 100 mls/hr IV ONCE PRN; Protocol PRN Reason: Adult Acute Hypoglycemia Prot Norepinephrine Bitartrate 4 mg (/ Dextrose) 254 mls @ 0 mls/hr IV .Q0M NESSA; Protocol Last Titration: 12/05/19 05:19 Dose: 0 mcg/min, 0 mls/hr Documented by: Azithromycin 500 mg/ Sodium (Chloride) 250 mls @ 250 mls/hr IV Q24H NESSA; Protocol Last Admin: 12/07/19 09:27 Dose: 250 mls/hr Documented by: Dexmedetomidine HCl 400 mcg/ (Sodium Chloride) 104 mls @ 0 mls/hr IV .Q0M [facility], [facility]; Protocol Last Admin: 12/06/19 01:39 Dose: 0.5 mcg/kg/hr, 21.3 mls/hr Documented by: Midazolam HCl 100 mg/ Sodium (Chloride) 100 mls @ 0 mls/hr IV .Q0M NESSA; Protocol Last Admin: 12/07/19 03:47 Dose: 2 mg/hr, 2 mls/hr Documented by: Dexmedetomidine HCl 1,000 mcg/ (Sodium Chloride) 104 mls @ 0 mls/hr IV .Q0M NESSA; Protocol Last Admin: 12/07/19 03:48 Dose: 1 mcg/kg/hr, 17.2 mls/hr Documented by: Linezolid (Zyvox Premix) 600 mg in 300 mls @ 300 mls/hr IV Q12H NESSA; Protocol Last Admin: 12/07/19 20:26 Dose: 300 mls/hr Documented by: Imipenem/Cilastatin Sodium 250 (mg/ Sodium Chloride) 100 mls @ 200 mls/hr IV Q6H NESSA; Protocol Last Admin: 12/08/19 03:51 Dose: 200 mls/hr Documented by: Insulin Aspart (Novolog) 0 unit SUBCUT TIDWM NESSA; Protocol Last Admin: 12/07/19 17:03 Dose: 6 unit Documented by: Lorazepam (Ativan) 2 mg IVP Q4H PRN PRN Reason: ANXIETY Last Admin: 12/05/19 08:14 Dose: 2 mg Documented by: Montelukast Sodium (Singulair) 10 mg PO DAILY NESSA Last Admin: 12/07/19 08:49 Dose: 10 mg Documented by: Non-Formulary Medication (Insulin Degludec [Tresiba Flextouch U-200]) 20 unit SUBCUT DAILY FOR[facility]LY [facility], [facility]1983 Non-Formulary Medication (Mometasone-Formoterol [Dulera]) 2 puff INHALATION BID FORMERLY [facility], [facility] Last Admin: 12/01/19 16:50 Dose: Not Given Documented by: Ondansetron HCl (Zofran) 4 mg IVP Q8H PRN PRN Reason: vomiting, or N/V if npo Pantoprazole Sodium (Protonix) 40 mg IVP DAILY FOR[facility], [facility]1983 Last Admin: 12/07/19 08:32 Dose: 40 mg Documented by: Vitals/I&O/Wt Last Vital Signs Temp 97.6 F 12/08/19 04:00 Pulse 82 12/08/19 06:00 Resp 23 H 12/08/19 06:00 BP 103/52 12/08/19 06:00 Pulse Ox 99 12/08/19 06:00 12/07/19 12/08/19 12/08/19 22:59 06:59 14:59 Intake Total 640 / 1140 Output Total 810 / 1410 225 / 1635 Balance -170 / -270 -225 / -495 Weight last 48 hrs Weight 166.015 kg Weight 165.062 kg Physical Exam Narrative: EXAM NARRATIVE: obese, afebrile, responsive on bipap. extubated Heent- nc/at neck obese lungs crackles heart reg, +PADMINI abd soft, nt, +BS ext b/l edema neuro- more awake Urinary Catheter Management^: Coude: Cath Placed During This Visit: yes Reason for Continuing Indwelling Catheter: Accurate Measurement of Urinary Output in Critically Ill Patients Urinary Catheter Date of Insertion: 12/01/19 Urinary Catheter Time of Insertion: 18:00 Data : 12/08/19 04:37 12/08/19 04:37 A&P Additional A&P Information 1. TEDDY - picture consistent with ATN, uop improving - renal imaging reviewed, no hydro but incomplete visualization - urine sodium 36, but no creatinine for FE Na - cr rising back to 6. will hold diuretics. -his hypoxemia is likely from pna. if he needs diuresis, he will likely need dialysis, and exchange of dialysis catheter - dose meds for eGFR < 15 -will monitor uop and chemistries 2. hyponatremia- na has improved to 136 k improved to 4.7 met acidosis is improving 3. VDRF -extubated on bipap -repeat abg 4. Pneumonia - COVID ruled out - renal dose abx 5. Anemia - hgb 9, follow H/H, no iron will start EPO 6. phos of 10- binders w/ meals 7. magnesium 2.3- from TEDDY 8. rhabdomyolysisi improving - d/w Bedside RN - exam and interview via telemed Attestations Medical Necessity Statement*: multifocal PNA, TEDDY Time Spent in Patient Care: Greater than 35 minutes Coding Level of Care Code Acute Communications Supervisor for [facility] [employer]
--- NOTE | 2019-12-08 09:08 | CT_ITS ---
WS: [id number] Examination: CT of the chest without contrast. History persistent pneumonia TECHNIQUE: Chest was scanned at 3 mm increments with coronal sagittal axial reconstruction. FINDINGS: This study shows diffuse infiltrates in the lower aspects of both lower lungs. The mediastinum was normal. Solid densities are seen off both perihilar areas and the left upper lung suspicious but not conclusi ve a neoplasm biopsy is recommended. There are scattered pleural effusion with the infiltrates in seen. The liver show normal appearance The adrenal glands were normal size. CT/CT chest abd pel wo con Impression: Mixture of solid in fluid densities throughout both lung davis suspicious of n eoplasm consideration of biopsy recommended. The endotracheal tube is seen in good position.
[2019-12-08 09:11] LABS: ABG PCO2 39.8 mmHg (35-45); ABG PH Result 7.32 (7.35-7.45); Alveolar-Arterial Oxygen Gradi 217.6 mmHg (5-10); Arterial Blood Gas Hematocrit 27.8 % (42-52); Base Excess ABG -5.3 mmol/L (-2.0-2.0); Blood Gas Allen Test Pos; Blood Gas Sample Site Radial, right; Blood Gas Sample Type Arterial; Carboxyhemoglobin 1.2 %THgb (0.4-20.1); HCO3 ABG 20.4 mmol/L (22-26); HGB O2 Sat 93.7 % (95-100); Ionized Calcium Level - ABG 0.9 mmol/L (1.1-1.4); Methemoglobin 1.2 % (0.4-1.5); Oxygen Device HAG; Oxygen Saturation ABG 96.1; PO2 ABG 86.3 mmHg (80.0-100.0); Potassium Level - ABG 4.6 mmol/L (3.5-5.0); Total Hemoglobin 9.1 g/dL (14-18)
[2019-12-08 09:32] LABS: Vancomycin Random 8.8 ug/mL (20.0-40.0)
--- NOTE | 2019-12-08 09:52 | P.PN_ITS ---
Subjective Subjective: Interval history: No acute events overnight. In last 24 hours patient was extubated. Patient remains hemodynamically stable with mean arterial pressure over 65 mmHg. Patient is not on pressors. On examination patient is on high flow 40% 40 L saturating 93%, not in respira tory distress. Patient is AO x2-3 complaining of mild abdominal pain. Denies any nausea, vomiting, headache. During my examination patient had liquidy bowel movement. Today morning patient's urinary catheter was mildly clogged which was flushed with 10 cc and after which he had 300 cc of urine output. Labs and vitals noted. T-max in last 24 hours 99.8 Fahrenheit Vitals/I&O/Wt Last Vital Signs Temp 97.6 F 12/08/19 04:00 Pulse 84 12/08/19 08:12 Resp 18 12/08/19 08:09 BP 103/52 12/08/19 06:00 Pulse Ox 95 12/08/19 08:09 12/07/19 12/08/19 12/08/19 22:59 06:59 14:59 Intake Total 640 / 1140 Output Total 810 / 1410 225 / 1635 Balance -170 / -270 -225 / -495 Weight last 48 hrs Weight 166.015 kg Weight 165.062 kg Physical Exam Narrative: EXAM NARRATIVE: General: No acute distress, AO x2-3, morbidly obese HEENT: PERRLA, pupils bilaterally equal and reactive Chest: Decreased air entry all over the lung davis, most likely because of body habitus, coarse crackles present in the left middle and lower zone, normal respiratory breath sounds all over the lung davis CVS: S1-S2 regular, no murmurs, no tachycardia, no gallops, no rubs Abdomen: Soft, morbidly obese, nontender, no organomegaly, bowel sounds present Neuro: No focal deficits, no facial deformity, power 4/5 in all limbs Decubitus ulcer present in tailbone area covered with dressing, no soakage. Urinary Catheter Management^: Coude: Cath Placed During This Visit: yes Reason for Continuing Indwelling Catheter: Accurate Measurement of Urinary Output in Critically Ill Patients Urinary Catheter Date of Insertion: 12/01/19 Urinary Catheter Time of Insertion: 18:00 Data : 12/08/19 04:37 12/08/19 04:37 A&P Assessment and plan (1) ARDS (adult respiratory distress syndrome): -Given CT scan findings, patient's hypoxia, has evidence of acute respiratory distress syndrome secondary to pneumonia -Minimize FiO2, minimize tidal volumes -We will hold off on steroids for now -Continue nebulizer treatments Status: Acute (2) Acute respiratory failure with hypoxia: Status: Acute (3) Sepsis: Status: Acute Qualifiers: Sepsis acute organ dysfunction status: without acute organ dysfunction Sepsis type: sepsis due to unspecified organism Qualified Code(s): A41.9 - Sepsis, unspecified organism (4) Pneumonia: Status: Acute Qualifiers: Laterality: left Lung location: upper lobe of lung Pneumonia type: due to unspecified organism Qualified Code(s): J18.9 - Pneumonia, unspecified organism (5) OPAL (obstructive sleep apnea): Status: Acute (6) Acute kidney injury (TEDDY) with acute tubular necrosis (ATN): Status: Acute (7) Acute renal failure: -Creatinine improved to 5.5, urine output 900 cc, evidence of acute tubular necrosis, likely secondary to severe sepsis -Nephrology has been consulted -Dialysis catheter placed by Dr. Owusu, with trouble with flow, keep in till tomorrow, no need for dialysis catheter exchange at this time Status: Acute (8) Multiorgan failure: -Creatinine proved to 5.5, elevated transaminitis which is improving, elevated INR which is improving to 1.23 Status: Acute (9) CHF (congestive heart failure): Status: Acute Qualifiers: Heart failure chronicity: acute on chronic Heart failure type: unspecified Qualified Code(s): I50.9 - Heart failure, unspecified (10) Hypertension: Status: Chronic Qualifiers: Hypertension type: essential hypertension Qualified Code(s): I10 - Essential (primary) hypertension (11) Anemia: Status: Acute (12) Acute metabolic encephalopathy: Status: Acute (13) Diabetes: Low-dose sliding scale Status: Chronic Qualifiers: Diabetes mellitus complication status: with circulatory complication Diabetes mellitus salvage determiner insulin use: with salvage determiner use Diabetes mellitus type: type 2 (14) Acquired urinary meatal stenosis: Status: Acute (15) Morbid (severe) obesity due to excess calories: Status: Acute (16) Decubitus ulcer limited to breakdown of skin (stage 2): Status: Acute Additional A&P Information ARDS: Acute respiratory hypoxic failure: Severe sepsis which is resolving along with multiorgan dysfunction: Extubated on December 06. Off pressors. Keep mean arterial pressure was 65 mmhg. Oxygen supplementation keeping saturation 92%. Stat ABG shows pH of 7.3 with PO2 of 86.3 on 40% FiO2 COVID-19 has been ruled out twice. Patient is on imipenem, linezolid and azithromycin. Day 7 on treatment. Discontinue azithromycin today. All the cultures have remained negative. Patient had spiked a fever of 99.8 Fahrenheit overnight. Leukocytosis worsening today. Overall hemodynamics have been improving with mild improvement in oxygenation as per the ABG. Potential source of infection could be a urinary catheter, right jugular dialysis catheter, positive for C. difficile. Check urinalysis, urine culture, stool studies for C. difficile, blood cultures from dialysis catheter.. Case discussed with Dr. Sharif groves states patient's dialysis catheter is shot for his body habitus and most likely will need a tunneled catheter. We will discuss with Dr. Amanda from nephrology before pulling of the dialysis catheter. CT chest abdomen pelvis without contrast to evaluate for infiltrate in the lung along with possible hydronephrosis because of worsening TEDDY and recurrent clotted urinary catheter, rule out cholelithiasis because of worsening alkaline phosphatase. Given the body habitus and infiltrate it is high chance patient is having chronic aspiration especially using BiPAP at night. N.p.o. for now. Modified barium swallow if possible otherwise will do bedside swallow evaluation. Decubitus ulcer: Frequent repositioning. Dressing as per wound care. Air bed. Acute renal failure: Most likely ATN. Appreciate nephrology recommendations. We will hold off on further IV diuresis for now and monitor urine output. Urine output in last 24 hours 1600 cc overall 15 L positive. Continue urine catheter for now. Continue frequent flushes. We will discuss with nephrology regarding possibility of dialysis in future. Metabolic encephalopathy: Most likely recurrence of severe sepsis along with ur emia. Continue to monitor. Patient maintaining airway. Severe sleep apnea: Continue BiPAP overnight. Congestive heart failure: Last echocardiogram in August showed a normal EF with no diastolic dysfunction. For now we will hold off on any further diuresis as discussed with nephrology because of worsening renal functions. Type 2 diabetes mellitus: Target blood sugar around 200 given severity of the disease. Continue with insulin sliding scale at mild scale. Blood sugar check every 6 hour. Anemia: Hemoglobin stable for now. Check iron panel. Given echo as per nephrology. Continue to monitor hemoglobin. Full code. Severely guarded prognosis. N.p.o. Lovenox for DVT prophylaxis as per renal functions. Attestations Medical Necessity Statement*: Severe sepsis, ARDS Time Spent in Patient Care: Greater than 35 minutes (>than 50% of time spent in counselling and/or direct pt care on unit) . 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 [facility] Diagnoses ARDS (adult respiratory distress syndrome) J80 Acute respiratory failure with hypoxia J96.01 Sepsis A41.9 Sepsis acute organ dysfunction status: without acute organ dysfunction Sepsis type: sepsis due to unspecified organism Pneumonia J18.9 Laterality: left Lung location: upper lobe of lung Pneumonia type: due to unspecified organism OPAL (obstructive sleep apnea) G47.33 Acute kidney injury (TEDDY) with acute tubular necrosis (ATN) N17.0 Acute renal failure N17.9 Multiorgan failure CHF (congestive heart failure) I50.9 Heart failure chronicity: acute on chronic Heart failure type: unspecified Hypertension I10 Hypertension type: essential hypertension Anemia D64.9 Acute metabolic encephalopathy G93.41 Diabetes E11.9 Diabetes mellitus complication status: with circulatory complication Diabetes mellitus salvage determiner insulin use: with salvage determiner use Diabetes mellitus type: type 2 Acquired urinary meatal stenosis Morbid (severe) obesity due to excess calories E66.01 Decubitus ulcer limited to breakdown of skin (stage 2) L89.92
[2019-12-08] MEDS: pantoprazole 40 mg SDV IVP ×2 (11:30→17:02)
[2019-12-08 11:31] LABS: Glucose Point of Care 163 mg/dL (70-110)
[2019-12-08] MEDS: linezolid premix 600 MG/300 ML PREMIX 300 MG IV ×2 (14:28→21:33)
[2019-12-08 14:30] LABS: Bilirubin Urine 1+ (NEGATIVE); Blood Urine 3+ (Negative); Glucose Urine UA Norm (Normal); Ketones Urine 1+ (Negative); Leukocyte Esterase Urine 2+ (Negative); Nitrate Urine Positive (Negative); Protein Urine 1+ (Negative); Urine Appearance Cloudy (CLEAR); Urine Color Brown (Yellow); Urobilinogen Urine 4 mg/dL (Negative)
[2019-12-08 14:42] LABS: Add Urine Culture? Yes; Bacteria Urine 1+; Mucus Urine TRACE; RBC Urine >100 /hpf (0-2); WBC Urine 15-25 /hpf (0-5)
[2019-12-08] MEDS: enoxaparin 30 mg/0.3 mL Syringe SUBCUT (17:02)
[2019-12-08] MEDS: epoetin alfa 10,000 unit/mL INJ 10000 UNIT SUBCUT (17:03)
[2019-12-08 18:02] LABS: Iron 33 ug/dL (59-158); Total Iron Binding Capacity 193 mcg/dl; Unsaturated Iron Binding 160 ug/dL (112-347)
[2019-12-08] MEDS: budesonide 0.5 mg/2 mL Neb INHALATION (20:26)
[2019-12-08] MEDS: loperamide 2 mg Capsule PO ×2 (21:02→21:41)
--- NOTE | 2019-12-08 21:03 | ECG_ITS ---
Measurements Intervals [place] Rate: 87 P: 74 GA: 183 QRS: 77 QRSD: 111 T: 65 QT: 405 QTc: 488 SINUS RHYTHM INCOMPLETE RIGHT BUNDLE BRANCH BLOCK [90+ ms QRS DURATION, TERMINAL R IN V1/V2, 40+ ms S IN I/aVL/V4/V5/V6] Compared to ECG 12/01/2019 10:50:29 No significant changes Electronically Signed On 12-09-2019 19:36:46 CDT by Lester Connelly M.D. [email or web address]
[2019-12-08] MEDS: morphine 4 mg/mL SDV 1 mL 2 MG IVP (21:22)
[2019-12-08] MEDS: lidocaine 2% viscous 15 ML, aluminum-mag hydrox-simethicon 30 ML, sucralfate oral liq 1 GM PO (21:40)
[2019-12-09] VITALS (32 sets, daily range): BP systolic 84–148; BP diastolic 38–88; PULSE 82–92; RESP 6–29; TEMP 36.7–37.2; O2SAT 83–97; BMI 98.6
[2019-12-09] MEDS: morphine 4 mg/mL SDV 1 mL 2 MG IVP ×2 (00:28→04:35)
[2019-12-09] MEDS: ipratropium-albuterol 3 mL Neb INHALATION ×5 (03:24→21:18)
[2019-12-09 04:54] LABS: ABG PCO2 37.1 mmHg (35-45); ABG PH Result 7.34 (7.35-7.45); Arterial Blood Gas Hematocrit 29.5 % (42-52); Base Excess ABG -5.2 mmol/L (-2.0-2.0); Blood Gas Allen Test Pos; Blood Gas Sample Site Brachial, right; Blood Gas Sample Type Arterial; Oxygen Device BIPAP; PO2 ABG 84.6 mmHg (80.0-100.0)
[2019-12-09 05:29] LABS: Basophils % 0.2 %; Eosinophils % 0.2 %; Hematocrit 29.7 % (42.0-52.0); Hemoglobin 8.5 g/dL (11.7-16.6); Lymphocytes # 0.8 10^3/uL (0.8-4.8); Lymphocytes % 6.4 %; Mean Corpuscular HGB Conc 28.6 g/dL (30.0-36.0); Mean Corpuscular Hemoglobin 24.4 pg (28.0-34.0); Mean Corpuscular Volume 85.1 fL (80-94); Mean Platelet Volume 9.3 fL (7.4-10.4); Monocytes # 0.6 10^3/uL (0.2-0.9); Monocytes % 4.7 %; Neutrophils # 10.3 10^3/uL (1.8-7.7); Neutrophils % 87.4 %; Nucleated Red Blood Cells % 0 %; Platelet Count 282 10^3/cmm (130-400); Red Blood Count 3.49 10^6/uL (4.1-5.3); Red Cell Distribution Width 17.5 % (12.1-15.1); White Blood Count 11.8 10^3/uL (4.0-10.0)
[2019-12-09 05:48] LABS: Alanine Aminotransferase < 5 U/L (0-41); Albumin Level 2.5 g/dL (3.5-5.2); Alkaline Phosphatase 322 IU/L (40-130); Anion Gap 25.2 (5-19); Aspartate Amino Transferase 58 U/L (0-40); Calcium 7.3 mg/dL (8.5-10.5); Carbon Dioxide 20 mmol/L (22-29); Chloride 97 mmol/L (98-107); Globulin 4.6 g/dL (1.3-4.6); Glomerular Filtration Rate 10.3 mL/min (90-130); Glucose 133 mg/dL (65-115); Magnesium 2.4 mg/dL (1.7-2.3); Osmolality Calculated 289 mOsm/kg (285-295); Potassium 4.2 mmol/L (3.5-5.1); Sodium 138 mmol/L (136-145); Total Bilirubin 1.1 mg/dL (0.15-1.2); Total Protein 7.1 g/dL (6.6-8.7)
[2019-12-09 05:49] LABS: Lactate (Lactic Acid level) 1.7 mmol/L (0.5-2.2)
[2019-12-09 05:54] LABS: Blood Urea Nitrogen 94 mg/dL (6-20); Phosphorus 9.4 mg/dL (2.5-4.5)
[2019-12-09 06:14] LABS: Creatine Phosphokinase 762 U/L (39-308)
[2019-12-09 07:14] LABS: Glucose Point of Care 261 mg/dL (70-110)
--- NOTE | 2019-12-09 07:16 | P.PN_ITS ---
Subjective Subjective: Interval history: more awake on bipap. follows simple commands. Medications: Reviewed: Yes Medication Review Details: Current Medications Acetaminophen (Tylenol) 650 mg PO Q4H PRN PRN Reason: MILD PAIN OR INCREASE TEMP Last Admin: 12/02/19 20:18 Dose: 650 mg Documented by: Albuterol Sulfate (Ventolin) 2 - 4 puff INHALATION QID.RESPIRATORY PRN PRN Reason: Shortness Of Breath Albuterol/Ipratropium (Duoneb) 3 ml INHALATION Q4H.RESPIRATORY NESSA Last Admin: 12/09/19 03:24 Dose: 3 ml Documented by: Allopurinol (Zyloprim) 100 mg PO DAILY NESSA Last Admin: 12/08/19 09:00 Dose: Not Given Documented by: Aspirin (Aspirin Chewable) 81 mg PO DAILY NESSA Last Admin: 12/08/19 09:00 Dose: Not Given Documented by: Atenolol (Tenormin) 100 mg PO DAILY REPLACED BY [facility] Last Admin: 12/08/19 14:20 Dose: Not Given Documented by: Atorvastatin Calcium (Lipitor) 80 mg PO DAILY NESSA Last Admin: 12/09/19 03:13 Dose: Not Given Documented by: Budesonide (Pulmicort) 0.5 mg INHALATION BID.RESPIRATORY NESSA Last Admin: 12/08/19 20:26 Dose: 0.5 mg Documented by: Dextrose (D50w) 50 ml IVP PRN PRN; Protocol PRN Reason: hypoglycemia protocol Last Admin: 12/03/19 09:57 Dose: 50 ml Documented by: Enoxaparin Sodium (Lovenox) 30 mg SUBCUT Q24H REPLACED BY [facility] Last Admin: 12/08/19 17:02 Dose: 30 mg Documented by: Glucagon (Glucagen) 1 mg IM ONCE PRN; Protocol PRN Reason: Adult Acute Hypoglycemia Prot. Dextrose (D5w) 500 mls @ 100 mls/hr IV ONCE PRN; Protocol PRN Reason: Adult Acute Hypoglycemia Prot Dexmedetomidine HCl 400 mcg/ (Sodium Chloride) 104 mls @ 0 mls/hr IV .Q0M REPLACED BY [facility]; Protocol Last Titration: 12/09/19 03:14 Dose: Infused Documented by: Linezolid (Zyvox Premix) 600 mg in 300 mls @ 300 mls/hr IV Q12H REPLACED BY [facility]; Protocol Last Infusion: 12/09/19 03:14 Dose: Infused Documented by: Imipenem/Cilastatin Sodium 250 (mg/ Sodium Chloride) 100 mls @ 200 mls/hr IV Q6H REPLACED BY [facility]; Protocol Last Infusion: 12/09/19 03:53 Dose: Infused Documented by: Insulin Aspart (Novolog) 0 unit SUBCUT TIDWM REPLACED BY [facility]; Protocol Last Admin: 12/08/19 17:00 Dose: 4 unit Documented by: Loperamide HCl (Imodium Capsule) 2 mg PO PRN PRN PRN Reason: DIARRHEA Last Admin: 12/08/19 21:41 Dose: 2 mg Documented by: Metoprolol Tartrate (Metoprolol Tartrate) 5 mg IV Q6H PRN PRN Reason: tachycardia Montelukast Sodium (Singulair) 10 mg PO DAILY REPLACED BY [facility] Last Admin: 12/08/19 14:24 Dose: Not Given Documented by: Non-Formulary Medication (Insulin Degludec [Tresiba Flextouch U-200]) 20 unit SUBCUT DAILY REPLACED BY [facility] Non-Formulary Medication (Mometasone-Formoterol [Dulera]) 2 puff INHALATION BID REPLACED BY [facility] Last Admin: 12/01/19 16:50 Dose: Not Given Documented by: Ondansetron HCl (Zofran) 4 mg IVP Q8H PRN PRN Reason: vomiting, or N/V if npo Pantoprazole Sodium (Protonix) 40 mg IVP BIDWM REPLACED BY [facility] Last Admin: 12/08/19 17:02 Dose: 40 mg Documented by: Sevelamer Carbonate (Renvela) 1,600 mg PO TIDWM REPLACED BY [facility] Last Admin: 12/08/19 17:03 Dose: Not Given Documented by: Vitals/I&O/Wt Last Vital Signs Temp 99 F 12/09/19 05:14 Pulse 87 12/09/19 06:00 Resp 26 H 12/09/19 06:00 BP 136/55 12/09/19 06:00 Pulse Ox 95 12/09/19 05:21 12/08/19 12/09/19 12/09/19 22:59 06:59 14:59 Intake Total 854 / 954 400 / 1354 Output Total 350 / 750 600 / 1350 Balance 504 / 204 -200 / 4 Weight last 48 hrs Weight 236.957 kg Weight 166.015 kg Physical Exam Narrative: EXAM NARRATIVE: obese, responsive on bipap. extubated- more comfortable Heent- nc/at neck obese lungs crackles b/l heart reg, +PADMINI abd soft, nt, +BS ext b/l edema neuro- awake, responsive Urinary Catheter Management^: Coude: Cath Placed During This Visit: yes Reason for Continuing Indwelling Catheter: Accurate Measurement of Urinary Output in Critically Ill Patients Urinary Catheter Date of Insertion: 12/01/19 Urinary Catheter Time of Insertion: 18:00 Data : 12/09/19 05:15 12/09/19 05:15 Micro: Microbiology 12/08/19 09:20 Stool Lactoferrin - Final Stool Parasite Antigen Panel - Final C.difficile Toxin B Gene (PCR) - Final Occult Blood (FIT) - Final 12/08/19 09:51 Blood Culture - Preliminary Blood SPECIMEN COLLECTED 12/08/19 09:47 Blood Culture - Preliminary Blood SPECIMEN COLLECTED A&P Additional A&P Information 1. TEDDY - picture consistent with ATN, uop improving - renal imaging reviewed, no hydro but incomplete visualization - urine sodium 36, but no creatinine for FE Na - cr stable at 6 -his hypoxemia is likely from pna. However, if pulm/ medicine feels that he is volume overloaded, can give diuretics as needed -dialysis catheter was removed due to feevrs and leukocytosis - dose meds for eGFR < 15 -will monitor uop and chemistries daily for dialysis needs 2. electrolytes - na, k okay -phos 9.4 improving- binders w/ meals -monitor magnesium 3. Pneumonia - COVID ruled out - renal dose abx -oxygenation is improving 4. met acidosis from renal failure 5. Anemia - hgb 8.5, follow H/H, no iron - cont EPO 6. rhabdomyolysis is improving 7. diarrhea- stool neg for c diff 8. edema- lasix / bumex as needed - d/w Bedside RN - exam and interview via telemed Attestations Medical Necessity Statement*: TEDDY, pna, hypoxemia, anemia Time Spent in Patient Care: Greater than 35 minutes Coding Level of Care Code Acute Carton Stapler for Zac Pickett
[2019-12-09] MEDS: budesonide 0.5 mg/2 mL Neb INHALATION ×2 (07:37→21:18)
[2019-12-09 08:17] LABS: Glucose Point of Care 140 mg/dL (70-110)
[2019-12-09] MEDS: pantoprazole 40 mg SDV IVP ×2 (09:04→17:40)
[2019-12-09] MEDS: aspirin 81 mg Chew Tablet PO (09:05)
[2019-12-09] MEDS: montelukast sodium 10 mg Tablet PO ×2 (09:05→11:36)
[2019-12-09] MEDS: atenolol 50 mg Tablet 100 MG PO (09:05)
--- NOTE | 2019-12-09 09:10 | PC.NURSE ---
Dr Stanton walked into pt's room after med.s were scanned , stated to hold off for now, he wanted to make some adjustments.
--- NOTE | 2019-12-09 09:45 | P.PN_ITS ---
Subjective Subjective: Interval history: No acute events overnight. Last 24 hours patient unwell. T-max 99 Fahrenheit. On examination today morning patient is BiPAP and was transitioned over to high flow. He does well on 30% on 30 L. He denies of any nausea, vomiting, headache complaints of back pain. Vitals/I&O/Wt Last Vital Signs Temp 99 F 12/09/19 05:14 Pulse 85 12/09/19 07:38 Resp 23 H 12/09/19 07:38 BP 136/55 12/09/19 06:00 Pulse Ox 97 12/09/19 07:38 12/08/19 12/09/19 12/09/19 22:59 06:59 14:59 Intake Total 854 / 954 400 / 1354 Output Total 350 / 750 600 / 1350 Balance 504 / 204 -200 / 4 Weight last 48 hrs Weight 236.957 kg Weight 166.015 kg Physical Exam Narrative: EXAM NARRATIVE: General: No acute distress, AO x2-3, morbidly obese HEENT: PERRLA, pupils bilaterally equal and reactive Chest: Decreased air entry all over the lung davis, most likely because of body habitus, coarse crackles present in the left middle and lower zone, normal respiratory breath sounds all over the lung davis CVS: S1-S2 regular, no murmurs, no tachycardia, no gallops, no rubs Abdomen: Soft, morbidly obese, nontender, no organomegaly, bowel sounds present Neuro: No focal deficits, no facial deformity, power 4/5 in all limbs Decubitus ulcer present in tailbone area covered with dressing, no soakage. Urinary Catheter Management^: Coude: Cath Placed During This Visit: yes Reason for Continuing Indwelling Catheter: Accurate Measurement of Urinary Output in Critically Ill Patients Urinary Catheter Date of Insertion: 12/01/19 Urinary Catheter Time of Insertion: 18:00 Data : 12/09/19 05:15 12/09/19 05:15 Micro: Microbiology 12/08/19 09:20 Stool Lactoferrin - Final Stool Parasite Antigen Panel - Final C.difficile Toxin B Gene (PCR) - Final Occult Blood (FIT) - Final 12/08/19 09:51 Blood Culture - Preliminary Blood SPECIMEN COLLECTED 12/08/19 09:47 Blood Culture - Preliminary Blood SPECIMEN COLLECTED A&P Assessment and plan (1) ARDS (adult respiratory distress syndrome): Status: Acute (2) Acute respiratory failure with hypoxia: Status: Acute (3) Sepsis: Status: Acute Qualifiers: Sepsis acute organ dysfunction status: without acute organ dysfunction Sepsis type: sepsis due to unspecified organism Qualified Code(s): A41.9 - Sepsis, unspecified organism (4) Pneumonia: Status: Acute Qualifiers: Laterality: left Lung location: upper lobe of lung Pneumonia type: due to unspecified organism Qualified Code(s): J18.9 - Pneumonia, unspecified organism (5) OPAL (obstructive sleep apnea): Status: Acute (6) Acute kidney injury (TEDDY) with acute tubular necrosis (ATN): Status: Acute (7) Acute renal failure: Status: Acute (8) Multiorgan failure: Status: Acute (9) CHF (congestive heart failure): Status: Acute Qualifiers: Heart failure chronicity: acute on chronic Heart failure type: unspecified Qualified Code(s): I50.9 - Heart failure, unspecified (10) Hypertension: Status: Chronic Qualifiers: Hypertension type: essential hypertension Qualified Code(s): I10 - Essential (primary) hypertension (11) Anemia: Status: Acute (12) Acute metabolic encephalopathy: Status: Acute (13) Diabetes: Low-dose sliding scale Status: Chronic Qualifiers: Diabetes mellitus complication status: with circulatory complication Diabetes mellitus retirement insulin use: with intermediate project manager use Diabetes mellitus type: type 2 (14) Acquired urinary meatal stenosis: Status: Acute (15) Morbid (severe) obesity due to excess calories: Status: Acute (16) Decubitus ulcer limited to breakdown of skin (stage 2): Status: Acute Additional A&P Information ARDS: Acute respiratory hypoxic failure: Severe sepsis which is resolving along with multiorgan dysfunction: Slightly improving Extubated on December 06. Off pressors. Keep mean arterial pressure was 65 mmhg. Oxygen supplementation keeping saturation 92%. Repeat ABG after being on high flow for around 2 hours. COVID-19 has been ruled out twice. Patient is on imipenem, linezolid. Day 8 on treatment. Azithromycin DC'd on December 07. If patient continues to remain stable hemodynamically, with low-grade fevers and leukocytosis is trending down tomorrow will discontinue antibiotics. All the cultures have remained negative. Overall hemodynamics have been improving with mild improvement in oxygenation as per the ABG. Stool studies negative for C. difficile, infectious process. Right IJ removed yesterday. For now patient does not need any further dialysis. We will continue to follow- up with telemetry nephrology and if needed patient would most likely need a tunneled dialysis catheter and discussion with Dr. Olguin. CT chest discussed with Dr. Owusu. 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 Patient would most likely need aggressive chest physical therapy but at present does not seem to work well with Acapella. Body habitus makes chest vest difficulty. Will request manual chest physical therapy 3 times a day with respiratory therapy. PT/OT. BiPAP as needed and at night. If patient becomes hypoxic will try to increase the flow of oxygen to get some PEEP with high flow. High concerns for chronic aspiration. We will keep n.p.o. for now. We will repeat barium swallow tomorrow morning. Decubitus ulcer: Frequent repositioning. Dressing as per wound care. Air bed. Acute renal failure: Most likely ATN. Appreciate nephrology recommendations. Urine output stable for now 1350 cc charted in last 24 hours. We will hold off on further IV diuresis for now and monitor urine output. Continue urine catheter for now. Continue frequent flushes. We will discuss with nephrology regarding possibility of dialysis in future. Metabolic encephalopathy: Most likely recurrence of severe sepsis along with uremia. Improving Continue to monitor. Patient maintaining airway. Severe sleep apnea: Continue BiPAP overnight. Congestive heart failure: Last echocardiogram in August showed a normal EF with no diastolic dysfunction. For now we will hold off on any further diuresis as discussed with nephrology because of worsening renal functions. Type 2 diabetes mellitus: Target blood sugar around 200 given severity of the disease. Continue with insulin sliding scale at mild scale. Blood sugar check every 6 hour. Anemia: Hemoglobin stable for now. Iron panel appreciated. Start patient on oral iron supplementation. Given erythropoietin as per nephrology Continue to monitor hemoglobin. Full code. Severely guarded prognosis. N.p.o. Lovenox for DVT prophylaxis as per renal functions. Patient continues to have slow progress patient would most likely need placement at LTAC due to possible long-term need of high flow given body habitus, severe sleep apnea, severe tracheomalacia. We will continue to monitor for now. Attestations Medical Necessity Statement*: ARDS Time Spent in Patient Care: Greater than 35 minutes (>than 50% of time spent in counselling and/or direct pt care on unit) . Coding Level of Care Code Acute Senior Statistical Programmer for Chg Fwd Diagnoses ARDS (adult respiratory distress syndrome) J80 Acute respiratory failure with hypoxia J96.01 Sepsis A41.9 Sepsis acute organ dysfunction status: without acute organ dysfunction Sepsis type: sepsis due to unspecified organism Pneumonia J18.9 Laterality: left Lung location: upper lobe of lung Pneumonia type: due to unspecified organism OPAL (obstructive sleep apnea) G47.33 Acute kidney injury (TEDDY) with acute tubular necrosis (ATN) N17.0 Acute renal failure N17.9 Multiorgan failure CHF (congestive heart failure) I50.9 Heart failure chronicity: acute on chronic Heart failure type: unspecified Hypertension I10 Hypertension type: essential hypertension Anemia D64.9 Acute metabolic encephalopathy G93.41 Diabetes E11.9 Diabetes mellitus complication status: with circulatory complication Diabetes mellitus intermediate project manager insulin use: with intermediate project manager use Diabetes mellitus type: type 2 Acquired urinary meatal stenosis Morbid (severe) obesity due to excess calories E66.01 Decubitus ulcer limited to breakdown of skin (stage 2) L89.92
[2019-12-09] MEDS: acetaminophen 325 mg Tablet 650 MG PO (11:35)
[2019-12-09] MEDS: allopurinol 100 mg Tablet PO (11:37)
[2019-12-09] MEDS: linezolid premix 600 MG/300 ML PREMIX 300 MG IV ×2 (11:41→21:41)
[2019-12-09] MEDS: enoxaparin 30 mg/0.3 mL Syringe SUBCUT (11:41)
[2019-12-09] MEDS: sevelamer 800 mg Tablet 1600 MG PO ×2 (12:09→17:39)
[2019-12-09 12:17] LABS: Glucose Point of Care 172 mg/dL (70-110)
--- NOTE | 2019-12-09 12:20 | PC.NURSE ---
Dr Stanton notified via telephone of pt's lack of participation in sitting. Pt and this nurse assisted pt to sitting on side of bed with great difficulty. He coud n ot hod himself in sitting position Pt assisted back into bed, bed put in chair position and pt yelled out frequently that he did not like it and he needed to lie down. Pt was repositioned. Due to this activity, Zyvoxx, IV antibiotic was given late. Dr Stanton okay'd Zyvoxx being ate. Will hold off on Enema until maybe tomorrow.
[2019-12-09 14:14] LABS: ABG PCO2 35.2 mmHg (35-45); ABG PH Result 7.36 (7.35-7.45); Alveolar-Arterial Oxygen Gradi 124.9 mmHg (5-10); Arterial Blood Gas Hematocrit 26.9 % (42-52); Base Excess ABG -5.3 mmol/L (-2.0-2.0); Blood Gas Allen Test Pos; Blood Gas Sample Site Radial, left; Blood Gas Sample Type Arterial; HCO3 ABG 19.6 mmol/L (22-26); Ionized Calcium Level - ABG 0.9 mmol/L (1.1-1.4); Oxygen Device NC; Oxygen Saturation ABG 94.3; PO2 ABG 77.5 mmHg (80.0-100.0); Potassium Level - ABG 4.1 mmol/L (3.5-5.0); Total Hemoglobin 8.8 g/dL (14-18)
[2019-12-09 17:42] LABS: Glucose Point of Care 153 mg/dL (70-110)
--- NOTE | 2019-12-09 19:41 | PC.NURSE ---
Report given to Manuela. Pt hasn't wanted to do much today. PT worked with him to sit on side of bed for a few minutes today, after pt yelled he wanted to go walking and get out of bed off and on in the morning. Pt picks at O2 monitor, heart monitor patches, which causes the need for frequent replacement. He will pull off his Oxygen too. Very minimal leaking around fecal management system. 150ml this shift output. 1000ml output of terell urine noted. Pt calls out or thumps on his bed instead of using call light, even after repeated call light education. Pt needs his needs met immediately, i.e. ask for something to help his pain, he will yell out again before pyxis can dispense the pain med.
[2019-12-09 23:03] LABS: Glucose Point of Care 140 mg/dL (70-110)
[2019-12-10] VITALS (24 sets, daily range): BP systolic 97–146; BP diastolic 48–82; PULSE 7–98; RESP 12–92; TEMP 36.6–37.2; O2SAT 91–100; BMI 98.6
[2019-12-10] MEDS: ipratropium-albuterol 3 mL Neb INHALATION ×5 (03:27→19:57)
[2019-12-10 05:32] LABS: Basophils % 0.3 %; Eosinophils % 0.1 %; Hematocrit 29.6 % (42.0-52.0); Hemoglobin 8.4 g/dL (11.7-16.6); Lymphocytes # 0.7 10^3/uL (0.8-4.8); Lymphocytes % 9.3 %; Mean Corpuscular HGB Conc 28.4 g/dL (30.0-36.0); Mean Corpuscular Volume 84.6 fL (80-94); Mean Platelet Volume 9.4 fL (7.4-10.4); Monocytes # 0.4 10^3/uL (0.2-0.9); Monocytes % 4.5 %; Neutrophils # 6.8 10^3/uL (1.8-7.7); Neutrophils % 84.8 %; Nucleated Red Blood Cells % 0 %; Platelet Count 248 10^3/cmm (130-400); Red Cell Distribution Width 17.8 % (12.1-15.1)
[2019-12-10 05:38] LABS: Glucose Point of Care 209 mg/dL (70-110)
[2019-12-10 05:58] LABS: Alanine Aminotransferase < 5 U/L (0-41); Albumin Level 2.6 g/dL (3.5-5.2); Alkaline Phosphatase 283 IU/L (40-130); Anion Gap 26.1 (5-19); Aspartate Amino Transferase 42 U/L (0-40); Calcium 7.8 mg/dL (8.5-10.5); Carbon Dioxide 22 mmol/L (22-29); Chloride 99 mmol/L (98-107); Globulin 4.6 g/dL (1.3-4.6); Glomerular Filtration Rate 13.1 mL/min (90-130); Glucose 140 mg/dL (65-115); Magnesium 2.3 mg/dL (1.7-2.3); Osmolality Calculated 300 mOsm/kg (285-295); Potassium 4.1 mmol/L (3.5-5.1); Sodium 143 mmol/L (136-145); Total Bilirubin 0.9 mg/dL (0.15-1.2); Total Protein 7.2 g/dL (6.6-8.7)
[2019-12-10 06:13] LABS: Blood Urea Nitrogen 104 mg/dL (6-20)
[2019-12-10 06:14] LABS: Creatine Phosphokinase 426 U/L (39-308); Phosphorus 8.3 mg/dL (2.5-4.5)
--- NOTE | 2019-12-10 06:38 | P.PN_ITS ---
Subjective Subjective: Interval history: No acute events overnight. T-max in last 24 hours 99 Fahrenheit. Examination today patient is saturating more than 92% on 30 L 35%. During conversation with patient decrease it to 25% and patient remained over 90%. He is a lot more awake. Wants to get out of bed. Denies any nausea, vomiting, headache. Complaining of mild abdominal pain. Vitals/I&O/Wt Last Vital Signs Temp 97.9 F 12/10/19 06:00 Pulse 83 12/10/19 06:00 Resp 20 H 12/10/19 06:00 BP 105/50 12/10/19 06:00 Pulse Ox 92 12/10/19 06:00 12/09/19 12/09/19 12/10/19 14:59 22:59 06:59 Intake Total 460 / 460 550 / 1010 100 / 1110 Output Total 1150 / 1150 Balance 460 / 460 -600 / -140 100 / -40 Weight last 48 hrs Weight 236.957 kg Weight 236.957 kg Physical Exam Narrative: EXAM NARRATIVE: General: No acute distress, AO x2-3, morbidly obese HEENT: PERRLA, pupils bilaterally equal and reactive Chest: Decreased air entry all over the lung davis, most likely because of body habitus, coarse crackles present in the left middle and lower zone, normal respiratory breath sounds all over the lung davis CVS: S1-S2 regular, no murmurs, no tachycardia, no gallops, no rubs Abdomen: Soft, morbidly obese, nontender, no organomegaly, bowel sounds present Neuro: No focal deficits, no facial deformity, power 4/5 in all limbs Decubitus ulcer present in tailbone area covered with dressing, no soakage. Urinary Catheter Management^: Coude: Cath Placed During This Visit: yes Reason for Continuing Indwelling Catheter: Accurate Measurement of Urinary Output in Critically Ill Patients Urinary Catheter Date of Insertion: 12/01/19 Urinary Catheter Time of Insertion: 18:00 Data : 12/10/19 05:05 12/10/19 05:05 Micro: Microbiology 12/09/19 15:35 Legionella Urinary Antigen - Final Urine Catheterized 12/09/19 15:35 Bacterial Antigens - Final Urine Kidney 12/08/19 09:20 Stool Lactoferrin - Final Stool Enteric Pathogens (PCR) - Final Parasite Antigen Panel - Final C.difficile Toxin B Gene (PCR) - Final Occult Blood (FIT) - Final 12/08/19 13:25 Urine Culture - Preliminary Urine Catheterized 12/08/19 09:51 Blood Culture - Preliminary Blood NEGATIVE TO DATE 12/08/19 09:47 Blood Culture - Preliminary Blood NEGATIVE TO DATE A&P Assessment and plan (1) ARDS (adult respiratory distress syndrome): Status: Acute (2) Acute respiratory failure with hypoxia: Status: Acute (3) Sepsis: Status: Acute Qualifiers: Sepsis acute organ dysfunction status: without acute organ dysfunction Sepsis type: sepsis due to unspecified organism Qualified Code(s): A41.9 - Sepsis, unspecified organism (4) Pneumonia: Status: Acute Qualifiers: Laterality: left Lung location: upper lobe of lung Pneumonia type: due to unspecified organism Qualified Code(s): J18.9 - Pneumonia, unspecified organism (5) OPAL (obstructive sleep apnea): Status: Acute (6) Acute kidney injury (TEDDY) with acute tubular necrosis (ATN): Status: Acute (7) Acute renal failure: Status: Acute (8) Multiorgan failure: Status: Acute (9) CHF (congestive heart failure): Status: Acute Qualifiers: Heart failure chronicity: acute on chronic Heart failure type: unspecified Qualified Code(s): I50.9 - Heart failure, unspecified (10) Hypertension: Status: Chronic Qualifiers: Hypertension type: essential hypertension Qualified Code(s): I10 - Essential (primary) hypertension (11) Anemia: Status: Acute (12) Acute metabolic encephalopathy: Status: Acute (13) Diabetes: Low-dose sliding scale Status: Chronic Qualifiers: Diabetes mellitus complication status: with circulatory complication Diabetes mellitus skilled nursing insulin use: with skilled nursing use Diabetes mellitus type: type 2 (14) Acquired urinary meatal stenosis: Status: Acute (15) Morbid (severe) obesity due to excess calories: Status: Acute (16) Decubitus ulcer limited to breakdown of skin (stage 2): Status: Acute Additional A&P Information ARDS: Acute respiratory hypoxic failure: Severe sepsis which is resolving along with multiorgan dysfunction: Slightly improving Extubated on December 06. Off pressors. Keep mean arterial pressure was 65 mmhg. Oxygen supplementation keeping saturation 92%. Repeat ABG after being on high flow for around 2 hours. COVID-19 has been ruled out twice. Patient has completed a 6-day course of azithromycin. He has had 8 days of imipenem and linezolid. Will discontinue linezolid today as MRSA has been negative. We will continue imipenem for 2 more days to finish a 10-day course for a possible Pseudomonas.cultures have remained negative. All the cultures have remained negative. Overall hemodynamics have been improving with mild improvement in oxygenation as per the ABG. Stool studies negative for C. difficile, infectious process. Right IJ removed. For now patient does not need any further dialysis. We will continue to follow- up with telemetry nephrology and if needed patient would most likely need a tunneled dialysis catheter and discussion with Dr. Olguin. CT chest discussed with Dr. Owusu. 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 Patient would most likely need aggressive chest physical therapy but at present does not seem to work well with Acapella. Body habitus makes chest vest difficulty. Will request manual chest physical therapy 3 times a day with respiratory therapy. PT/OT. BiPAP as needed and at night. If patient becomes hypoxic will try to increase the flow of oxygen to get some PEEP with high flow. High concerns for chronic aspiration. Patient is a lot more awake today. Unfortunately cannot do modified barium swallow due to limitations with chair size. Will get bedside official swallow evaluation and advance diet acco rdingly. Urine output appropriate?24 hours and creatinine is improving we will confirm with nephrology and give oral diuresis at least once today. Patient is overall 15 L negative. Decubitus ulcer: Frequent repositioning. Dressing as per wound care. Air bed. Acute renal failure: Most likely ATN. Appreciate nephrology recommendations. Creatinine improving. 4.8 today. We will confirm with nephrology and give diuretics. Continue urine catheter for now. Continue frequent flushes. We will discuss with nephrology regarding possibility of dialysis in future. Metabolic encephalopathy: Most likely recurrence of severe sepsis along with uremia. Improving Continue to monitor. Patient maintaining airway. Severe sleep apnea: Continue BiPAP overnight. Congestive heart failure: Last echocardiogram in August showed a normal EF with no diastolic dysfunction. For now we will hold off on any further diuresis as discussed with nephrology because of worsening renal functions. Type 2 diabetes mellitus: Target blood sugar around 200 given severity of the disease. Continue with insulin sliding scale at mild scale. Blood sugar check every 6 hour. Anemia: Hemoglobin stable for now. Iron panel appreciated. Continue with patient on oral iron supplementation. Given erythropoietin as per nephrology Continue to monitor hemoglobin. Full code. Severely guarded prognosis. N.p.o. Lovenox for DVT prophylaxis as per renal functions. Patient continues to have slow progress patient would most likely need placement at LTAC due to possible long-term need of high flow given body habitus, severe sleep apnea, severe tracheomalacia. We will ask a coordination to get in touch with LTAC today for a possible transfer in in a day or 2 if patient is not improving. Attestations Medical Necessity Statement*: Improving ARDS, severe TEDDY Time Spent in Patient Care: Greater than 35 minutes (>than 50% of time spent in counselling and/or direct pt care on unit) . Coding Level of Care Code Acute Can Coverer for Zac Pickett Diagnoses ARDS (adult respiratory distress syndrome) J80 Acute respiratory failure with hypoxia J96.01 Sepsis A41.9 Sepsis acute organ dysfunction status: without acute organ dysfunction Sepsis type: sepsis due to unspecified organism Pneumonia J18.9 Laterality: left Lung location: upper lobe of lung Pneumonia type: due to unspecified organism OPAL (obstructive sleep apnea) G47.33 Acute kidney injury (TEDDY) with acute tubular necrosis (ATN) N17.0 Acute renal failure N17.9 Multiorgan failure CHF (congestive heart failure) I50.9 Heart failure chronicity: acute on chronic Heart failure type: unspecified Hypertension I10 Hypertension type: essential hypertension Anemia D64.9 Acute metabolic encephalopathy G93.41 Diabetes E11.9 Diabetes mellitus complication status: with circulatory complication Diabetes mellitus longwall machine operator helper insulin use: with skilled nursing use Diabetes mellitus type: type 2 Acquired urinary meatal stenosis Morbid (severe) obesity due to excess calories E66.01 Decubitus ulcer limited to breakdown of skin (stage 2) L89.92
[2019-12-10 08:32] LABS: Glucose Point of Care 162 mg/dL (70-110)
[2019-12-10] MEDS: budesonide 0.5 mg/2 mL Neb INHALATION ×2 (08:51→19:57)
--- NOTE | 2019-12-10 09:18 | P.PN_ITS ---
Subjective Subjective: Interval history: feels better. more awake. breathing improving. eating. no n/v/f/c/mejia/d Medications: Reviewed: Yes Medication Review Details: Current Medications Acetaminophen (Tylenol) 650 mg PO Q4H PRN PRN Reason: MILD PAIN OR INCREASE TEMP Last Admin: 12/09/19 11:35 Dose: 650 mg Documented by: Albuterol Sulfate (Ventolin) 2 - 4 puff INHALATION QID.RESPIRATORY PRN PRN Reason: Shortness Of Breath Albuterol/Ipratropium (Duoneb) 3 ml INHALATION Q4H.RESPIRATORY NESSA Last Admin: 12/10/19 08:51 Dose: 3 ml Documented by: Allopurinol (Zyloprim) 100 mg PO DAILY NESSA Last Admin: 12/09/19 11:37 Dose: 100 mg Documented by: Atenolol (Tenormin) 50 mg PO DAILY [facility] Atorvastatin Calcium (Lipitor) 80 mg PO DAILY NESSA Last Admin: 12/09/19 03:13 Dose: Not Given Documented by: Budesonide (Pulmicort) 0.5 mg INHALATION BID.RESPIRATORY NESSA Last Admin: 12/10/19 08:51 Dose: 0.5 mg Documented by: Dextrose (D50w) 50 ml IVP PRN PRN; Protocol PRN Reason: hypoglycemia protocol Last Admin: 12/03/19 09:57 Dose: 50 ml Documented by: Enoxaparin Sodium (Lovenox) 30 mg SUBCUT Q24H NESSA Last Admin: 12/09/19 11:41 Dose: 30 mg Documented by: Ferrous Sulfate (Ferrous Sulfate) 325 mg PO BIDWM NESSA Glucagon (Glucagen) 1 mg IM ONCE PRN; Protocol PRN Reason: Adult Acute Hypoglycemia Prot. Dextrose (D5w) 500 mls @ 100 mls/hr IV ONCE PRN; Protocol PRN Reason: Adult Acute Hypoglycemia Prot Dexmedetomidine HCl 400 mcg/ (Sodium Chloride) 104 mls @ 0 mls/hr IV .Q0M NESSA; Protocol Last Titration: 12/09/19 03:14 Dose: Infused Documented by: Imipenem/Cilastatin Sodium 250 (mg/ Sodium Chloride) 100 mls @ 200 mls/hr IV Q6H NESSA; Protocol Last Infusion: 12/10/19 03:51 Dose: Infused Documented by: Insulin Aspart (Novolog) 0 unit SUBCUT Q6H NESSA; Protocol Last Admin: 12/10/19 05:42 Dose: 4 unit Documented by: Metoprolol Tartrate (Metoprolol Tartrate) 5 mg IV Q6H PRN PRN Reason: tachycardia Montelukast Sodium (Singulair) 10 mg PO DAILY [facility] Last Admin: 12/09/19 11:36 Dose: 10 mg Documented by: Non-Formulary Medication (Insulin Degludec [Tresiba Flextouch U-200]) 20 unit SUBCUT DAILY [facility] Non-Formulary Medication (Mometasone-Formoterol [Dulera]) 2 puff INHALATION BID [facility] Last Admin: 12/01/19 16:50 Dose: Not Given Documented by: Ondansetron HCl (Zofran) 4 mg IVP Q8H PRN PRN Reason: vomiting, or N/V if npo Pantoprazole Sodium (Protonix) 40 mg IVP BIDWM [facility] Last Admin: 12/09/19 17:40 Dose: 40 mg Documented by: Sevelamer Carbonate (Renvela) 1,600 mg PO TIDWM [facility] Last Admin: 12/09/19 17:39 Dose: 1,600 mg Documented by: Vitals/I&O/Wt Last Vital Signs Temp 97.9 F 12/10/19 06:00 Pulse 83 12/10/19 08:59 Resp 21 H 12/10/19 08:59 BP 105/50 12/10/19 06:00 Pulse Ox 94 12/10/19 08:59 12/09/19 12/10/19 12/10/19 22:59 06:59 14:59 Intake Total 550 / 1010 100 / 1110 Output Total 1150 / 1150 200 / 200 Balance -600 / -140 100 / -40 -200 / -200 Weight last 48 hrs Weight 236.957 kg Weight 236.957 kg Physical Exam Narrative: EXAM NARRATIVE: obese, responsive on high flow oxygen Heent- nc/at neck obese lungs crackles b/l heart reg, +PADMINI abd soft, nt, +BS ext b/l edema neuro- awake, responsive, moving Urinary Catheter Management^: Coude: Cath Placed During This Visit: yes Reason for Continuing Indwelling Catheter: Accurate Measurement of Urinary Output in Critically Ill Patients Urinary Catheter Date of Insertion: 12/01/19 Urinary Catheter Time of Insertion: 18:00 Data : 12/10/19 05:05 12/10/19 05:05 Micro: Microbiology 12/09/19 15:35 Legionella Urinary Antigen - Final Urine Catheterized 12/09/19 15:35 Bacterial Antigens - Final Urine Kidney 12/08/19 09:20 Stool Lactoferrin - Final Stool Enteric Pathogens (PCR) - Final Parasite Antigen Panel - Final C.difficile Toxin B Gene (PCR) - Final Occult Blood (FIT) - Final 12/08/19 13:25 Urine Culture - Preliminary Urine Catheterized 12/08/19 09:51 Blood Culture - Preliminary Blood NEGATIVE TO DATE 12/08/19 09:47 Blood Culture - Preliminary Blood NEGATIVE TO DATE A&P Additional A&P Information 1. TEDDY - picture consistent with ATN, uop improving - renal imaging reviewed, no hydro but incomplete visualization - urine sodium 36, but no creatinine for FE Na - cr improved to 4.8 from 5.9 -his hypoxemia is likely from pna. However, if pulm/ medicine feels that he is volume overloaded, can give diuretics as needed -dialysis catheter was removed due to fevrs and leukocytosis - dose meds for eGFR < 15 -will monitor uop and chemistries daily - hopefully renal fxn continues to improve 2. electrolytes - na, k okay -phos 8.3 down from 9.4- binders w/ meals -monitor magnesium 3. Pneumonia - COVID ruled out - renal dose abx -oxygenation is improving 4. met acidosis from renal failure -improving 5. Anemia - hgb 8.4, follow H/H, no iron - cont EPO 6. rhabdomyolysis improved 7. diarrhea- stool neg for c diff 8. edema- lasix / bumex as needed - d/w Bedside RN - exam and interview via telemed Attestations Medical Necessity Statement*: b/l pna, anemia, teddy, o2 dep Time Spent in Patient Care: 16 - 35 minutes Coding Level of Care Code Acute Construction Project Administrator for Zac Pickett
[2019-12-10] MEDS: pantoprazole 40 mg SDV IVP ×2 (09:44→17:42)
[2019-12-10] MEDS: ferrous sulfate EC 325 mg Tablet PO ×2 (09:48→17:42)
[2019-12-10] MEDS: allopurinol 100 mg Tablet PO (09:48)
[2019-12-10] MEDS: atenolol 50 mg Tablet PO (09:48)
[2019-12-10] MEDS: montelukast sodium 10 mg Tablet PO (09:48)
[2019-12-10] MEDS: FUROsemide 10 mg/mL SDV 2mL 40 MG IVP (10:56)
[2019-12-10] MEDS: epoetin alfa 10,000 unit/mL INJ 10000 UNIT SUBCUT (10:57)
[2019-12-10] MEDS: acetaminophen 325 mg Tablet 650 MG PO (10:57)
[2019-12-10] MEDS: sevelamer 800 mg Tablet 1600 MG PO ×3 (10:58→17:42)
[2019-12-10 12:16] LABS: Glucose Point of Care 143 mg/dL (70-110)
[2019-12-10] MEDS: enoxaparin 30 mg/0.3 mL Syringe SUBCUT (13:06)
[2019-12-10] MEDS: FUROsemide 40 mg Tablet PO (17:42)
--- NOTE | 2019-12-10 19:00 | PC.NURSE ---
patients rectal tube came out reinserted with 45ML of air in proper place and draining brown liquid
[2019-12-10 20:28] LABS: Glucose Point of Care 136 mg/dL (70-110)
[2019-12-10 23:48] LABS: Glucose Point of Care 159 mg/dL (70-110)
[2019-12-11] VITALS (26 sets, daily range): BP systolic 111–136; BP diastolic 59–68; PULSE 78–124; RESP 14–23; TEMP 36.6–37.1; O2SAT 87–100; BMI 98.6
[2019-12-11] MEDS: ipratropium-albuterol 3 mL Neb INHALATION ×6 (03:04→19:40)
[2019-12-11 05:10] LABS: Basophils % 0.1 %; Eosinophils % 0.4 %; Hematocrit 31.1 % (42.0-52.0); Hemoglobin 8.7 g/dL (11.7-16.6); Lymphocytes # 0.8 10^3/uL (0.8-4.8); Lymphocytes % 11.5 %; Mean Corpuscular Volume 85.7 fL (80-94); Mean Platelet Volume 9.4 fL (7.4-10.4); Monocytes # 0.3 10^3/uL (0.2-0.9); Monocytes % 4.6 %; Neutrophils # 5.6 10^3/uL (1.8-7.7); Neutrophils % 82.4 %; Nucleated Red Blood Cells % 0 %; Platelet Count 256 10^3/cmm (130-400); Red Blood Count 3.63 10^6/uL (4.1-5.3); Red Cell Distribution Width 17.7 % (12.1-15.1); White Blood Count 6.8 10^3/uL (4.0-10.0)
[2019-12-11 05:34] LABS: Alanine Aminotransferase < 5 U/L (0-41); Albumin Level 2.6 g/dL (3.5-5.2); Alkaline Phosphatase 251 IU/L (40-130); Anion Gap 18.7 (5-19); Aspartate Amino Transferase 29 U/L (0-40); Calcium 7.9 mg/dL (8.5-10.5); Carbon Dioxide 26 mmol/L (22-29); Chloride 102 mmol/L (98-107); Creatinine Clr Calc Pharmacy 47.9295; Globulin 4.3 g/dL (1.3-4.6); Glomerular Filtration Rate 19.5 mL/min (90-130); Glucose 142 mg/dL (65-115); Magnesium 2.3 mg/dL (1.7-2.3); Osmolality Calculated 300 mOsm/kg (285-295); Phosphorus 5.5 mg/dL (2.5-4.5); Potassium 3.7 mmol/L (3.5-5.1); Sodium 143 mmol/L (136-145); Total Bilirubin 0.8 mg/dL (0.15-1.2); Total Protein 6.9 g/dL (6.6-8.7)
[2019-12-11 05:41] LABS: Creatine Phosphokinase 227 U/L (39-308)
[2019-12-11 05:43] LABS: Glucose Point of Care 154 mg/dL (70-110)
[2019-12-11 05:43] LABS: Blood Urea Nitrogen 103 mg/dL (6-20)
--- NOTE | 2019-12-11 07:00 | PC.NURSE ---
Report received from ALFIE Orozco. Care assumed. Telenephrology has been done already this am. Kidney function improving.Pt rested well through the night. Unable to decrease amount of oxygen delivered. Fecal management tube remained in, leakage noted around in once.
--- NOTE | 2019-12-11 07:13 | P.PN_ITS ---
Subjective Subjective: Interval history: still sob, but improving Medications: Reviewed: Yes Medication Review Details: Current Medications Acetaminophen (Tylenol) 650 mg PO Q4H PRN PRN Reason: MILD PAIN OR INCREASE TEMP Last Admin: 12/10/19 10:57 Dose: 650 mg Documented by: Albuterol Sulfate (Ventolin) 2 - 4 puff INHALATION QID.RESPIRATORY PRN PRN Reason: Shortness Of Breath Albuterol/Ipratropium (Duoneb) 3 ml INHALATION Q4H.RESPIRATORY NESSA Last Admin: 12/11/19 03:04 Dose: 3 ml Documented by: Allopurinol (Zyloprim) 100 mg PO DAILY [facility] Last Admin: 12/10/19 09:48 Dose: 100 mg Documented by: Atenolol (Tenormin) 50 mg PO DAILY [facility] Last Admin: 12/10/19 09:48 Dose: 50 mg Documented by: Atorvastatin Calcium (Lipitor) 80 mg PO DAILY [facility] Last Admin: 12/09/19 03:13 Dose: Not Given Documented by: Budesonide (Pulmicort) 0.5 mg INHALATION BID.RESPIRATORY [facility] Last Admin: 12/10/19 19:57 Dose: 0.5 mg Documented by: Dextrose (D50w) 50 ml IVP PRN PRN; Protocol PRN Reason: hypoglycemia protocol Last Admin: 12/03/19 09:57 Dose: 50 ml Documented by: Enoxaparin Sodium (Lovenox) 30 mg SUBCUT Q24H [facility] Last Admin: 12/10/19 13:06 Dose: 30 mg Documented by: Ferrous Sulfate (Ferrous Sulfate) 325 mg PO BIDWM [facility] Last Admin: 12/10/19 17:42 Dose: 325 mg Documented by: Glucagon (Glucagen) 1 mg IM ONCE PRN; Protocol PRN Reason: Adult Acute Hypoglycemia Prot. Dextrose (D5w) 500 mls @ 100 mls/hr IV ONCE PRN; Protocol PRN Reason: Adult Acute Hypoglycemia Prot Dexmedetomidine HCl 400 mcg/ (Sodium Chloride) 104 mls @ 0 mls/hr IV .Q0M [facility]; Protocol Last Titration: 12/09/19 03:14 Dose: Infused Documented by: Imipenem/Cilastatin Sodium 250 (mg/ Sodium Chloride) 100 mls @ 200 mls/hr IV Q6H [facility]; Protocol Last Admin: 12/11/19 03:34 Dose: 200 mls/hr Documented by: Insulin Aspart (Novolog) 0 unit SUBCUT Q6H [facility]; Protocol Last Admin: 12/11/19 05:45 Dose: 2 unit Documented by: Metoprolol Tartrate (Metoprolol Tartrate) 5 mg IV Q6H PRN PRN Reason: tachycardia Montelukast Sodium (Singulair) 10 mg PO DAILY [facility] Last Admin: 12/10/19 09:48 Dose: 10 mg Documented by: Non-Formulary Medication (Insulin Degludec [Tresiba Flextouch U-200]) 20 unit SUBCUT DAILY [facility] Non-Formulary Medication (Mometasone-Formoterol [Dulera]) 2 puff INHALATION BID [facility] Last Admin: 12/01/19 16:50 Dose: Not Given Documented by: Ondansetron HCl (Zofran) 4 mg IVP Q8H PRN PRN Reason: vomiting, or N/V if npo Pantoprazole Sodium (Protonix) 40 mg IVP BIDWM [facility] Last Admin: 12/10/19 17:42 Dose: 40 mg Documented by: Sevelamer Carbonate (Renvela) 1,600 mg PO TIDWM [facility] Last Admin: 12/10/19 17:42 Dose: 1,600 mg Documented by: Vitals/I&O/Wt Last Vital Signs Temp 99 F 12/10/19 14:00 Pulse 80 12/11/19 06:00 Resp 19 H 12/11/19 06:00 BP 120/68 12/11/19 06:00 Pulse Ox 97 12/11/19 06:00 12/10/19 12/11/19 12/11/19 22:59 06:59 14:59 Intake Total 500 / 660 720 / 1380 Output Total 1400 / 2650 1800 / 4450 Balance -900 / -1990 -1080 / -3070 Weight last 48 hrs Weight 236.957 kg Weight 236.957 kg Physical Exam Narrative: EXAM NARRATIVE: obese, remains SOB on BiPAP Heent- nc/at neck obese lungs crackles b/l heart reg, +PADMINI abd soft, nt, +BS ext b/l edema neuro- awake, responsive, moving Urinary Catheter Management^: Coude: Cath Placed During This Visit: yes Reason for Continuing Indwelling Catheter: Accurate Measurement of Urinary Output in Critically Ill Patients Urinary Catheter Date of Insertion: 12/01/19 Urinary Catheter Time of Insertion: 18:00 Data : 12/11/19 04:13 12/11/19 04:13 Micro: Microbiology 12/08/19 19:45 Catheter Tip Culture - Preliminary Central Line 12/08/19 13:25 Urine Culture - Final Urine Catheterized A&P Additional A&P Information 1. TEDDY - picture consistent with ATN, uop improving - renal imaging reviewed, no hydro but incomplete visualization - urine sodium 36, but no creatinine for FE Na - cr improved to 3.4 from 5.9 -his hypoxemia is likely from pna. He has had a significant diuresis -dialysis catheter was removed -continue to monitor uop and chemistries daily - hopefully renal fxn continues to improve 2. electrolytes - na 143- from diuresis - k 3.7 from diuretics- replace as needed -phos 5.5 down from 9.4- binders w/ meals - may be able to stop soon -he only started eating yesterday -normal magnesium 3. Pneumonia - COVID ruled out - renal dose abx -oxygenation is improving 4. met acidosis from renal failure -improved 5. Anemia - hgb 8.7, follow H/H, no iron - cont EPO 6. rhabdomyolysis improved 7. diarrhea- stool neg for c diff 8. edema- diuretics as needed 9. attempt to get pt OOB and into chair - d/w Bedside RN - exam and interview via telemed Attestations Medical Necessity Statement*: teddy, pna, OPAL on bipap Time Spent in Patient Care: 16 - 35 minutes Coding Level of Care Code Acute Appeals Representative for Zac Pickett
[2019-12-11] MEDS: budesonide 0.5 mg/2 mL Neb INHALATION ×2 (07:40→19:40)
--- NOTE | 2019-12-11 09:00 | PC.NURSE ---
Morning medications late due to patient's care and frequent repeated calls from patient's family.
[2019-12-11 09:15] LABS: Glucose Point of Care 146 mg/dL (70-110)
[2019-12-11] MEDS: ferrous sulfate EC 325 mg Tablet PO ×2 (09:17→17:51)
[2019-12-11] MEDS: atenolol 50 mg Tablet PO (09:18)
[2019-12-11] MEDS: allopurinol 100 mg Tablet PO (09:18)
[2019-12-11] MEDS: FUROsemide 10 mg/mL SDV 2mL 20 MG IVP (09:18)
[2019-12-11] MEDS: pantoprazole 40 mg SDV IVP ×2 (09:18→17:51)
[2019-12-11] MEDS: montelukast sodium 10 mg Tablet PO (09:19)
[2019-12-11] MEDS: sevelamer 800 mg Tablet PO ×3 (09:21→17:51)
--- NOTE | 2019-12-11 09:40 | PC.NURSE ---
Cell phone and trampoline team coach dropped off to patient by family.
[2019-12-11] MEDS: enoxaparin 30 mg/0.3 mL Syringe SUBCUT (12:13)
[2019-12-11 13:20] LABS: Glucose Point of Care 213 mg/dL (70-110)
--- NOTE | 2019-12-11 14:08 | P.TS_ITS ---
Transfer Summary Providers Date of Admission: 12/01/19 11:54 Date of Discharge: 12/11/19 Attending Provider at Admission: Juan Urena MD Attending Provider at Transfer: Mendez Farmer MD Primary Care Provider: Stewart Rosario MD Anticipated Date of Transfer: Anticipated date of transfer: 12/11/19 Receiving Facility & Provider: Receiving Provider: [Dr. VIEIRA] Receiving facility: [[facility]] Diagnoses at Discharge Discharge Diagnosis (1) ARDS (adult respiratory distress syndrome): Status: Acute (2) Acute respiratory failure with hypoxia: Status: Acute (3) Sepsis: Status: Acute Qualifiers: Sepsis acute organ dysfunction status: without acute organ dysfunction Sepsis type: sepsis due to unspecified organism Qualified Code(s): A41.9 - Sepsis, unspecified organism (4) Pneumonia: Status: Acute Qualifiers: Laterality: left Lung location: upper lobe of lung Pneumonia type: due to unspecified organism Qualified Code(s): J18.9 - Pneumonia, unspecified organism (5) OPAL (obstructive sleep apnea): Status: Acute (6) Acute kidney injury (TEDDY) with acute tubular necrosis (ATN): Status: Acute (7) Acute renal failure: Status: Acute (8) Multiorgan failure: Status: Acute (9) CHF (congestive heart failure): Status: Acute Qualifiers: Heart failure chronicity: acute on chronic Heart failure type: unspecified Qualified Code(s): I50.9 - Heart failure, unspecified (10) Hypertension: Status: Chronic Qualifiers: Hypertension type: essential hypertension Qualified Code(s): I10 - Essential (primary) hypertension (11) Anemia: Status: Acute (12) Acute metabolic encephalopathy: Status: Acute (13) Diabetes: Status: Chronic Qualifiers: Diabetes mellitus complication status: with circulatory complication 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 Diabetes mellitus type: type 2 (14) Acquired urinary meatal stenosis: Status: Acute (15) Morbid (severe) obesity due to excess calories: Status: Acute (16) Decubitus ulcer limited to breakdown of skin (stage 2): Status: Acute Reason for Visit Reason for Visit: SEPTIC SHOCK/ AMS Hospital Course Discharge Summary: Arnol Guzman is a 49 year old male morbid obesity, OPAL, hypertension, type 2 diabetes mellitus, hyperlipidemia, COPD on chronic 2 L, diastolic heart failure, who presented on November 30 to [facility] due to complaints of fevers, cough, shortness of breath, weakness, fatigue, malaise for the last few days. Patient denies any travel, no exposure to COVID-19, no known sick contacts, patient has been social distancing. Patient states that for the last 3 days he has had a nonproductive cough, increased shortness of breath with exertion, no orthopnea, no paroxysmal nocturnal dyspnea, minimal bilateral extremity edema, he has had some subjective fevers, feeling more fatigued and malaise recently. Patient states that he woke up this morning he could not get out of bed, as he felt so fatigued, he also had some back pain, no chest pain, no palpitations, patient is using all his medications as prescribed. Presentation to the ER he was found to have a white count of 14.6 with a hemoglobin of 10.6 with a creatinine of 2.2, lactate of 4.3 and he was in metabolic and respiratory acidosis. As he was not able to maintain his airway he was intubated in the ER and was transferred to the ICU for further care. As per blood gas patient was in ARDS. CT chest done on admission showed a dense left-sided pneumonia along with sepsis. He was started on broad-spectrum antibiotics with imipenem and Zyvox. During hospitalization his blood culture, urine culture remained negative. Sputum cultures were negative as well. Due to his presentation and ARDS COVID-19 was tested and was negative. COVID-19 was repeated again and second test was negative as well. Patient's hospital stay was also complicated by him going into multiorgan dysfunction with creatinine creeping up to 6.6 causing him to be oliguric. Nephrology was consulted. Eventually with treatment his creatinine started improving and urine output started improving as well. Patient did have a right IJ Shiley put in but never required dialysis as his urine output started improving on its own. Shiley was removed on December 08. Eventually patient's PF ratio started improving and he was extubated on December 06 to high flow nasal cannula and BiPAP ventilation at night while sleeping. CT chest was repeated which showed severe atelectatic changes in the left upper middle and lower zone and posterior area. It also showed tracheomalacia. CT was discussed with pulmonology and it was thought it is most likely because of patient's body habitus that he has had a prolonged recommendation causing him to have bad atelectasis on the left side. Because of concern of chronic aspiration patient was kept n.p.o. and official swallow evaluation was done and his diet was appropriately advanced to mechanical soft diet. Modified barium swallow/fees could not be done because of patient's body habitus. Because of his morbid obesity, severe obstructive sleep apnea and moderately severe tracheomalacia patient's recovery from oxygenation has been slow. We have been able to come down on FiO2 oxygen requirement very slowly. Patient requires aggressive physical and chest physical therapy for which he has been getting chest PT through percussion and Acapella. He has been transferred to LTAC for further management and gradual weaning of high flow keeping his saturations over 90%. Patient has remained afebrile, hemodynamically stable for more than 4 days. His urine output has been improving and his creatinine has been coming down to 3.4 today. Physical Exam Narrative: EXAM NARRATIVE: General: No acute distress, AO x2-3, morbidly obese HEENT: PERRLA, pupils bilaterally equal and reactive Chest: Decreased air entry all over the lung davis, most likely because of body habitus, coarse crackles present in the left middle and lower zone, normal respiratory breath sounds all over the lung davis CVS: S1-S2 regular, no murmurs, no tachycardia, no gallops, no rubs Abdomen: Soft, morbidly obese, nontender, no organomegaly, bowel sounds present Neuro: No focal deficits, no facial deformity, power 4/5 in all limbs Decubitus ulcer present in tailbone area covered with dressing, no soakage. Urinary Catheter Management^: Coude: Cath Placed During This Visit: yes Reason for Continuing Indwelling Catheter: Accurate Measurement of Urinary Output in Critically Ill Patients Urinary Catheter Date of Insertion: 12/01/19 Urinary Catheter Time of Insertion: 18:00 TS Data Data Completed and Pending: Completed Studies During Hospitalization Category Date Time Status CT chest abd pel wo con Routine Cat Scan 12/08/19 09:[address] chest wo con 7 1250 Routine Cat Scan 12/02/19 08:00 Completed CXRP [XR chest 1V portable 59530] S tat Exams 12/04/19 12:58 Completed XR chest 1V camila ble [id number] Routine Exams 12/03/19 07:00 Completed XR chest 1V camila ble [id number] Routine Exams 12/04/19 07:00 Completed XR chest 1V camila ble [id number] Routine Exams 12/05/19 07:00 Completed XR chest 1V camila ble [id number] Routine Exams 12/06/19 07:35 Completed XR chest 1V camila ble [id number] Routine Exams 12/07/19 07:00 Completed XR chest 1V camila ble [id number] Routine Exams 12/08/19 07:00 Completed XR chest 1V camila ble [id number] Stat Exams 12/01/19 19:17 Completed XR chest 1V camila ble [id number] Urgent Exams 12/01/19 10:36 Completed US abdomen comple te* [id number] Routine Ultrasound 12/06/19 06:00 Completed Pending at discharge Category Date Time Status ABG FULL [Arteria l Blood Gas Full] Stat Lab 12/08/19 08:56 Ordered Arterial Blood Ga s Full Routine Lab 12/09/19 13:55 Results Arterial Blood Ga s W/O Coox AM LABS Lab 12/08/19 04:00 Ordered Blood Culture Sta t Lab 12/08/19 09:51 Results Catheter Tip Cult ure Routine Lab 12/08/19 19:45 Results Complete Blood Co unt w/Auto AM LABS Lab 12/12/19 04:00 Ordered Complete Blood Co unt w/Auto AM LABS Lab 12/13/19 04:00 Ordered Complete Blood Co unt w/Auto AM LABS Lab 12/14/19 04:00 Ordered Comprehensive Met abolic Panel AM LA BS Lab 12/12/19 04:00 Ordered Comprehensive Met abolic Panel AM LA BS Lab 12/13/19 04:00 Ordered Comprehensive Met abolic Panel AM LA BS Lab 12/14/19 04:00 Ordered Legionella Antibo dy Stat Lab 12/08/19 11:51 Received Magnesium AM LABS Lab 12/12/19 04:00 Ordered Magnesium AM LABS Lab 12/13/19 04:00 Ordered Magnesium AM LABS Lab 12/14/19 04:00 Ordered OVA and Parasites , Conc and PE Rout ine Lab 12/08/19 09:20 Received Phosphorus AM LAB S Lab 12/12/19 04:00 Ordered Phosphorus AM LAB S Lab 12/13/19 04:00 Ordered Phosphorus AM LAB S Lab 12/14/19 04:00 Ordered Sputum Culture an d Gram Stain Stat Lab 12/08/19 09:19 Uncollected Labs from last 24 hours 06/10/2612/11/19 12/11/19 11:42 08:53 05:41 WBC RBC Hgb Hct MCV MCH MCHC RDW Plt Count MPV Neut % (Auto) Lymph % (Auto) Jerauld % (Auto) Eos % (Auto) Baso % (Auto) Neut # (Auto) Lymph # (Auto) Jerauld # (Auto) Eos # (Auto) Baso # (Auto) Nucleated RBC % (a uto) Nucleated RBCs # Sodium Potassium Chloride Carbon Dioxide Anion Gap BUN Creatinine GFR Calculation Glucose POC Glucose 213 146 154 Calculated Osmolal ity Calcium Phosphorus Magnesium Total Bilirubin AST ALT Alkaline Phosphata se Creatine Kinase Total Protein Albumin Globulin 12/11/19 12/11/19 12/11/19 04:13 04:13 04:13 WBC 6.8 RBC 3.63 L Hgb 8.7 L Hct 31.1 L MCV 85.7 MCH 24.0 L MCHC 28.0 L RDW 17.7 H Plt Count 256 MPV 9.4 Neut % (Auto) 82.4 Lymph % (Auto) 11.5 Jerauld % (Auto) 4.6 Eos % (Auto) 0.4 Baso % (Auto) 0.1 Neut # (Auto) 5.6 Lymph # (Auto) 0.8 Jerauld # (Auto) 0.3 Eos # (Auto) 0.0 Baso # (Auto) 0.0 Nucleated RBC % (a uto) 0 Nucleated RBCs # 0.0 Sodium 143 Potassium 3.7 Chloride 102 Carbon Dioxide 26 Anion Gap 18.7 BUN 103 H* Creatinine 3.4 H GFR Calculation 19.5 L Glucose 142 H POC Glucose Calculated Osmolal ity 300 H Calcium 7.9 L Phosphorus 5.5 H Magnesium 2.3 Total Bilirubin 0.8 AST 29 ALT < 5 Alkaline Phosphata se 251 H Creatine Kinase 227 Total Protein 6.9 Albumin 2.6 L Globulin 4.3 12/10/19 12/10/19 23:45 17:17 WBC RBC Hgb Hct MCV MCH MCHC RDW Plt Count MPV Neut % (Auto) Lymph % (Auto) Jerauld % (Auto) Eos % (Auto) Baso % (Auto) Neut # (Auto) Lymph # (Auto) Jerauld # (Auto) Eos # (Auto) Baso # (Auto) Nucleated RBC % (a uto) Nucleated RBCs # Sodium Potassium Chloride Carbon Dioxide Anion Gap BUN Creatinine GFR Calculation Glucose POC Glucose 159 136 Calculated Osmolal ity Calcium Phosphorus Magnesium Total Bilirubin AST ALT Alkaline Phosphata se Creatine Kinase Total Protein Albumin Globulin Vitals: Last Vital Signs Temp 99 F 12/10/19 14:00 Pulse 85 12/11/19 11:12 Resp 18 12/11/19 11:11 BP 120/68 12/11/19 06:00 Pulse Ox 97 12/11/19 11:11 TS Medications Medications Home Medications albuterol sulfate [ProAir HFA] 2 - 4 puff INHALATION QID PRN 07/14/19 [History Confirmed 12/01/19] allopurinol 300 mg PO DAILY 07/14/19 [History Confirmed 12/01/19] aspirin [Aspir-81] 81 mg PO DAILY 07/14/19 [History Confirmed 12/01/19] atenolol 100 mg PO DAILY 07/14/19 [History Confirmed 12/01/19] atorvastatin [Lipitor] 80 mg PO DAILY 07/14/19 [History Confirmed 12/01/19] loratadine 10 mg PO DAILY 07/14/19 [History Confirmed 12/01/19] metformin 500 mg PO BID 07/14/19 [History Confirmed 12/01/19] montelukast [Singulair] 10 mg PO DAILY 07/14/19 [History Confirmed 12/01/19] omeprazole 40 mg PO DAILY 07/14/19 [History Confirmed 12/01/19] lisinopril 20 mg PO DAILY 30 Days #30 tab 07/15/19 [Rx Confirmed 12/01/19] mometasone-formoterol HFA 200 mcg-5 mcg/actuation aerosol inhaler 2 puff INHALATION BID 08/12/19 [History Confirmed 12/01/19] insulin degludec 200 unit/mL (3 mL) subcutaneous pen 20 unit SUBCUT DAILY ml 10/14/19 [History Confirmed 12/01/19] potassium chloride 20 meq PO TID #15 tab 11/25/19 [Rx Confirmed 12/01/19] docusate sodium 200 mg PO BEDTIME 12/01/19 [History Confirmed 12/01/19] furosemide 40 mg PO DAILY 12/01/19 [History Confirmed 12/01/19] Active Medications Acetaminophen (Tylenol) 650 mg PO Q4H PRN PRN Reason: MILD PAIN OR INCREASE TEMP Last Admin: 12/10/19 10:57 Dose: 650 mg Documented by: Albuterol Sulfate (Ventolin) 2 - 4 puff INHALATION QID.RESPIRATORY PRN PRN Reason: Shortness Of Breath Albuterol/Ipratropium (Duoneb) 3 ml INHALATION Q4H.RESPIRATORY NESSA Last Admin: 12/11/19 11:09 Dose: 3 ml Documented by: Allopurinol (Zyloprim) 100 mg PO DAILY NESSA Last Admin: 12/11/19 09:18 Dose: 100 mg Documented by: Aspirin (Aspirin Ec) 81 mg PO DAILY NESSA Atenolol (Tenormin) 50 mg PO DAILY NESSA Last Admin: 12/11/19 09:18 Dose: 50 mg Documented by: Atorvastatin Calcium (Lipitor) 80 mg PO DAILY [facility] Last Admin: 12/09/19 03:13 Dose: Not Given Documented by: Budesonide (Pulmicort) 0.5 mg INHALATION BID.RESPIRATORY [facility] Last Admin: 12/11/19 07:40 Dose: 0.5 mg Documented by: Dextrose (D50w) 50 ml IVP PRN PRN; Protocol PRN Reason: hypoglycemia protocol Last Admin: 12/03/19 09:57 Dose: 50 ml Documented by: Enoxaparin Sodium (Lovenox) 30 mg SUBCUT Q24H [facility] Last Admin: 12/11/19 12:13 Dose: 30 mg Documented by: Ferrous Sulfate (Ferrous Sulfate) 325 mg PO BIDWM [facility] Last Admin: 12/11/19 09:17 Dose: 325 mg Documented by: Furosemide (Lasix) 20 mg IVP Q24H [facility] Last Admin: 12/11/19 09:18 Dose: 20 mg Documented by: Glucagon (Glucagen) 1 mg IM ONCE PRN; Protocol PRN Reason: Adult Acute Hypoglycemia Prot. Dextrose (D5w) 500 mls @ 100 mls/hr IV ONCE PRN; Protocol PRN Reason: Adult Acute Hypoglycemia Prot Dexmedetomidine HCl 400 mcg/ (Sodium Chloride) 104 mls @ 0 mls/hr IV .Q0M [facility]; Protocol Last Titration: 12/09/19 03:14 Dose: Infused Documented by: Imipenem/Cilastatin Sodium 250 (mg/ Sodium Chloride) 100 mls @ 200 mls/hr IV Q6H [facility]; Protocol Last Infusion: 12/11/19 09:50 Dose: Infused Documented by: Insulin Aspart (Novolog) 0 unit SUBCUT Q6H [facility]; Protocol Last Admin: 12/11/19 12:12 Dose: 4 unit Documented by: Metoprolol Tartrate (Metoprolol Tartrate) 5 mg IV Q6H PRN PRN Reason: tachycardia Montelukast Sodium (Singulair) 10 mg PO DAILY [facility] Last Admin: 12/11/19 09:19 Dose: 10 mg Documented by: Non-Formulary Medication (Insulin Degludec [Tresiba Flextouch U-200]) 20 unit SUBCUT DAILY [facility] Non-Formulary Medication (Mometasone-Formoterol [Dulera]) 2 puff INHALATION BID [facility] Last Admin: 12/01/19 16:50 Dose: Not Given Documented by: Ondansetron HCl (Zofran) 4 mg IVP Q8H PRN PRN Reason: vomiting, or N/V if npo Pantoprazole Sodium (Protonix) 40 mg IVP BIDWM [facility] Last Admin: 12/11/19 09:18 Dose: 40 mg Documented by: Sevelamer Carbonate (Renvela) 800 mg PO TIDWM [facility] Last Admin: 12/11/19 12:12 Dose: 800 mg Documented by: Discharge Plan Discharge Patient Disposition: er [facility] Condition: Stable Prescriptions: No Action Dulera 200-5 mcg/actuation HFA aerosol inhaler 2 puff INHALATION BID RF: 0 atorvastatin [Lipitor] 80 mg Tablet 80 mg PO DAILY RF: 0 atenolol 100 mg Tablet 100 mg PO DAILY RF: 0 omeprazole 40 mg Capsule,Delayed Release(Dr/Ec) 40 mg PO DAILY RF: 0 aspirin [Aspir-81] 81 mg Tablet,Delayed Release (Dr/Ec) 81 mg PO DAILY RF: 0 montelukast [Singulair] 10 mg Tablet 10 mg PO DAILY RF: 0 allopurinol 300 mg Tablet 300 mg PO DAILY RF: 0 albuterol sulfate [ProAir HFA] 90 mcg/actuation HFA aerosol inhaler 2 - 4 puff INHALATION QID PRN (Reason: Shortness Of Breath) RF: 0 metformin 500 mg Tablet Extended Release 24 Hr 500 mg PO BID RF: 0 loratadine 10 mg Tablet 10 mg PO DAILY RF: 0 lisinopril 20 mg Tablet 20 mg PO DAILY 30 Days Qty: 30 RF: 1 Tresiba FlexTouch U-200 200 unit/mL (3 mL) insulin pen 20 unit SUBCUT DAILY RF: 0 potassium chloride 20 mEq tablet extended release 20 meq PO TID Qty: 15 RF: 0 docusate sodium 100 mg capsule 200 mg PO BEDTIME RF: 0 furosemide 40 mg tablet 40 mg PO DAILY RF: 0 Discharge Orders: Transfer Out of Facility (Order); Ordered 12/11/19 Ordered By: Mendez Farmer Referrals: Stewart Rosario MD [Primary Care Provider] - Discharge Diet: Soft Mechanical Discharge Activity: Increase activity as tolerated and As per PT/OT instructions Transfer Attestations Time Spent in Transfer Care*: greater than 30 min Specific Discharge Activities: Specific discharge activities: educating patient, discussing with pcp/other providers, discussing with home health care case manager/social workers/dc planners, documenting/other paperwork and evaluating patient/reviewing data Status at Transfer: Cognitive status at transfer: cognitively intact , Behavioral status at transfer: cooperative , Functional status at transfer: other assisted ambulation Overall status at transfer: patient is progressing back to baseline Quality Metrics Clinical Quality Measures: During this hospital stay, did patient experience: None Coding Level of Care Code 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 Diagnoses ARDS (adult respiratory distress syndrome) J80 Acute respiratory failure with hypoxia J96.01 Sepsis A41.9 Sepsis acute organ dysfunction status: without acute organ dysfunction Sepsis type: sepsis due to unspecified organism Pneumonia J18.9 Laterality: left Lung location: upper lobe of lung Pneumonia type: due to unspecified organism OPAL (obstructive sleep apnea) G47.33 Acute kidney injury (TEDDY) with acute tubular necrosis (ATN) N17.0 Acute renal failure N17.9 Multiorgan failure CHF (congestive heart failure) I50.9 Heart failure chronicity: acute on chronic Heart failure type: unspecified Hypertension I10 Hypertension type: essential hypertension Anemia D64.9 Acute metabolic encephalopathy G93.41 Diabetes E11.9 Diabetes mellitus complication status: with circulatory complication 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
--- NOTE | 2019-12-11 14:30 | PC.NURSE ---
Fecal management tube removed after removing 45ml of air. Pt tolerated well. Pt stated his bottom felt much better now.
--- NOTE | 2019-12-11 17:00 | PC.NURSE ---
Numerous repetitive calls from inebriated family today inquiring about pt's admit clothing and wallet. Pt was not noted to have wallet on admit (this nurse admitted him) His tshirt and shorts heavily soiled on admit. This was shared with the caller.
--- NOTE | 2019-12-11 17:05 | PC.NURSE ---
Report called to [facility] in [place], [place]. Report given to Nicole Law RN. Discharge summary and med list faxed as requested.
--- NOTE | 2019-12-11 17:25 | PC.NURSE ---
Clothing brought in by family for patient for impending LTAC transfer.
[2019-12-11 18:09] LABS: Glucose Point of Care 179 mg/dL (70-110)
--- NOTE | 2019-12-11 20:33 | PC.NURSE ---
Patient transferred to [facility] stretch and patients and oxygen hooked up to CPAP. 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
[2019-12-12 17:15] LABS: Legionella Antibody <1:256
--- NOTE | 2019-12-13 14:06 | PC.SOCIAL ---
Post D/C phone call: Per Dr. Farmer, 1 of 4 bottles of patient's blood cultures came back positive. This is likely a contaminate, however Dr. Farmer would advise these blood cultures to be repeated. Called and notified patient's nurse, ALFIE Hewitt, at [facility] of this now. She states she will let her physician know.
== END 2019-12-11 20:38 | DRG 870 ==
LOC: ER 12:00 → ICU 12:12
PROVIDERS: Internal Medicine Nephrology; Admitting Provider Family Medicine; Emergency Provider Emergency Medicine; PCP Family Medicine; Visit Provider Student in an Organized Health Care Education/Training Program
DX: A41.9 Sepsis, unspecified organism (principal); R65.21 Severe sepsis with septic shock; I50.33 Acute on chronic diastolic (congestive) heart failure; J18.9 Pneumonia, unspecified organism; J96.01 Acute respiratory failure with hypoxia; N17.0 Acute kidney failure with tubular necrosis; Z68.45 Body mass index [BMI] 70 or greater, adult; J44.0 Chronic obstructive pulmonary disease with (acute) lower respiratory infection; E87.4 Mixed disorder of acid-base balance; A04.72 Enterocolitis due to Clostridium difficile, not specified as recurrent; E66.01 Morbid (severe) obesity due to excess calories; G47.33 Obstructive sleep apnea (adult) (pediatric); I11.0 Hypertensive heart disease with heart failure; E11.59 Type 2 diabetes mellitus with other circulatory complications; E78.2 Mixed hyperlipidemia; Z99.81 Dependence on supplemental oxygen; M10.9 Gout, unspecified; Z87.891 Personal history of nicotine dependence; Z77.22 Contact with and (suspected) exposure to environmental tobacco smoke (acute) (chronic); Z20.828 Contact with and (suspected) exposure to other viral communicable diseases; N35.911 Unspecified urethral stricture, male, meatal; E87.6 Hypokalemia; D64.9 Anemia, unspecified; L89.92 Pressure ulcer of unspecified site, stage 2; J39.8 Other specified diseases of upper respiratory tract; Z79.51 Long term (current) use of inhaled steroids; Z79.82 Long term (current) use of aspirin; Z79.4 Long term (current) use of insulin
CPT/HCPCS: 12345; 31500; 36415; 36416; 36600; 51702; 71045; 71250; 74176; 76700; 80051; 80053; 80202; 81001; 82274; 82436; 82533; 82550; 82803; 82805; 82810; 82962; 83036; 83540; 83550; 83605; 83630; 83735; 83880; 83986; 84100; 84133; 84145; 84300; 84443; 85025; 85610; 86140; 86403; 87040; 87070; 87075; 87086; 87205; 87305; 87340; 87449; 87493; 87506; 87635; 87641; 87804; 92523; 92526; 92610; 93005; 93010; 94002; 94003; 94640; 94660; 94664; 94667; 94668; 94799; 96365; 96366; 96367; 96368; 96372; 96375; 97110; 97163; 97530; 99284; 99291; A4570; C9113; J0330; J0456; J0743; J1650; J1815; J1940; J2020; J2060; J2250; J2270; J2704; J3010; J3370; J3480; J3490; J7030; J7050; J7626; Q3014; Q4081

== ENCOUNTER 2019-12-01 10:31 | Emergency (ER) | payer MEDICAID, SELFPAY | END 2019-12-01 12:56 | disposition admitted as inpatient to this hospital (09) | LOC: ER 12-03 13:41 | PROVIDERS: Emergency Provider Emergency Medicine; PCP Family Medicine | DX: A41.9 Sepsis, unspecified organism (principal); J18.9 Pneumonia, unspecified organism; E11.9 Type 2 diabetes mellitus without complications; E78.2 Mixed hyperlipidemia; Z87.891 Personal history of nicotine dependence | CPT/HCPCS: 36415; 71045; 93005; 96365; 96366; 96367; 96368; 96375; 99284; 99291; J3370; J3490; J7030; J7050 ==

== ENCOUNTER 2020-01-09 14:32 | Emergency (ER) | payer MEDICAID, SELFPAY ==
[2020-01-09 14:37] VITALS: BP 150/71; PULSE 87; RESP 18; TEMP 37.1; O2SAT 98; BMI 56.2
--- NOTE | 2020-01-09 14:50 | W.ED.FALL ---
HPI - Fall General: Chief Complaint: Fall Stated Complaint: BACK PAIN/ L SIDED PAIN/ POST FALL Time Seen by Provider: 01/09/20 14:38 History of Present Illness: HPI Narrative: Patient is a 49-year-old male who comes to the ED via ambulance after having a fall. Injury occurred earlier today just prior to arrival. Patient says he lost his balance and fell back landing on the left side of his hip and also catching himself with his left arm. He is currently complaining of left hip pain and left shoulder pain. He currently rates the pain a 5 out of 10. He has not taken any pain medications before arriving to the ED. denies hitting head or any loss of consciousness, nausea or vomiting. Associated symptoms-after fall: Denies abdominal pain, chest pain, headache(s), hematuria or neck pain Review of Systems Const: Denies: fever(s), chills or fatigue Eyes: Denies: change in vision or eye discomfort ENMT: Denies: throat pain, odynophagia, nasal discharge or nasal congestion Card: Denies: chest pain, palpitations, edema, swelling of feet/ankles, dyspnea on exertion or orthopnea Resp: Denies: dyspnea, productive cough or non-productive cough GI: Denies: abdominal pain, nausea, vomiting, diarrhea, constipation or hematochezia : Denies: flank pain, difficulty urinating, dysuria or hematuria Musc: Reports: extremity pain (left shoulder and left hip pain); Denies: neck pain, back pain or extremity swelling Skin/Breast: Denies: rash or new lesions Neuro: Denies: headache(s), numbness in extremities or weakness in extremities [facility] ED PFSH: Medical History Diabetes Gout Hyperlipemia, mixed Hypertension Morbid (severe) obesity due to excess calories OPAL (obstructive sleep apnea) Pneumonia Surgical History History of adenoidectomy History of hernia repair History of tonsillectomy History of umbilical hernia repair Family History Mother Hypertension CAD (coronary artery disease) Stroke Social History Smoking and tobacco status: former smoker Second hand smoke exposure: Yes Alcohol intake: never Lives independently: Yes Household members: friend(s) Physical Exam Const: COMMON NORMALS: no acute distress, patient oriented x3 and alert GENERAL APPEARANCE: cooperative and comfortable HENMT: COMMON NORMALS: normocephalic HEAD & SCALP: normocephalic MOUTH: Normal oral and palatal mucosa present THROAT: posterior oropharynx normal and uvula midline Neck/C-Spine: COMMON NORMALS: supple GENERAL: Yes normal visual inspection Resp: COMMON NORMALS: normal respiratory effort, No retractions, No use of accessory muscles and clear to auscultation bilaterally AUSCULTATION: clear to auscultation bilaterally Cardio: COMMON NORMALS: regular rate, regular rhythm, S1 normal heart sound present, S2 normal heart sound present, No gallops present (Cardio), No clicks present (Cardio), No murmurs present (Cardio) and Peripheral pulses 2+ throughout RATE: regular rate RHYTHM: regular rhythm HEART SOUNDS: S1 normal heart sound present and S2 normal heart sound present PERIPHERAL PULSES: Peripheral pulses 2+ throughout GI: COMMON NORMALS: Normal to inspection, nondistended, normoactive bowel sounds present, Soft to palpation, non-tender and no masses PALPATION: Yes Soft to palpation : COMMON NORMALS: Yes no CVA tenderness BLADDER/KIDNEY EXAM: Yes no CVA tenderness Back/Pelvis: COMMON NORMALS: no CVA tenderness Extremity: COMMON NORMALS: normal to inspection and no pedal edema LEFT UPPER EXTREMITY: Yes shoulder joint Left shoulder joint: Yes inspection (No swelling or visible deformity.), Yes palpation (No tenderness), Yes ROM (Full with some pain) and Yes neurovascular exam (Intact) LEFT LOWER EXTREMITY: Yes hip joint Left hip: Yes palpation (Mild tenderness upon palpation.), Yes ROM (Limited due to pain.) and Yes neurovascular exam (Intact) Neuro: COMMON NORMALS: patient oriented x3 and moves all extremities SENSORIUM/ORIENTATION: Yes alert Skin: GENERAL SKIN EXAM: dry skin Course Vital Signs: Vital signs: Vital Signs Temperature 98.7 F 01/09/20 14:37 Pulse Rate 85 01/09/20 17:13 Respiratory Rate 16 01/09/20 17:13 Blood Pressure 151/73 01/09/20 17:13 Pulse Oximetry 99 01/09/20 17:13 MDM - Fall Imaging Data^: Xray Ortho: Attestation: I personally reviewed and interpreted this imaging study as follows: Radiologist's impression: [address] [place] [address] XRay Report Signed Patient: Arnol Guzman Unit #: [id number] : 1970 Age/Sex: 49 / M ADM Date: 01/09/20 Loc: ER Room/Bed: Attending Dr: Ordering Provider/Ordering MD: Mau Jonas Date of Service: 01/09/20 Procedure(s): XR hip LT 2-3V wo/w pel* 21315 Accession Number(s): [id number] Report Number: [id number] WS: [id number] HIP WITH PELVIS LEFT TECHNIQUE: 3 views of the left hip with pelvis CLINICAL INFORMATION: fall with left hip pain COMPARISON: None. FINDINGS: Osteopenia. Soft tissue edema. No visualized fractures. Moderate degenerative arthritis. XR/XR hip LT 2-3V wo/w pel* [id number] IMPRESSION: No visualized left hip fractures. Dictated By: Evangelist Sanderson MD Signed By: Evangelist Sanderson MD Signed Date/Time: 01/09/20 1541 DD/ [address] [place] [address] XRay Report Signed Patient: Arnol Guzman Unit #: [id number] : 1970 Age/Sex: 49 / M ADM Date: 01/09/20 Loc: ER Room/Bed: Attending Dr: Ordering Provider/Ordering MD: Mau Jonas Date of Service: 01/09/20 Procedure(s): XR shoulder LT min 2V* 10366 Accession Number(s): [id number] Report Number: [id number] WS: [id number] SHOULDER LEFT TECHNIQUE: 3 views of the left shoulder CLINICAL INFORMATION: fall with left shoulder pain COMPARISON: None. FINDINGS: Mild hypertrophic changes acromioclavicular joint. Normal glenohumeral joint. Acromion is normal in appearance. Normal glenoid. No evidence of acute fracture dislocation. XR/XR shoulder LT min 2V* [id number] IMPRESSION: No acute fractures Dictated By: Evangelist Sanderson MD Signed By: Evangelist Sanderson MD Signed Date/Time: 01/09/201542 DD/ [address] [address] XRay Report Signed Patient: Arnol Guzman Unit #: [id number] : 1970 Age/Sex: 49 / M ADM Date: 01/09/20 Loc: ER Room/Bed: Attending Dr: Ordering Provider/Ordering MD: Mau Jonas Date of Service: 01/09/20 Procedure(s): XR pelvis 1-2V* 58479 Accession Number(s): [id number] Report Number: [id number] WS: [id number] PELVIS TECHNIQUE: 1 view(s) of the pelvis CLINICAL INFORMATION: fall with pain COMPARISON: None. FINDINGS: Visualized hips are normal in appearance. Normal acetabulum. Lower lumbar spine is normal. Inferior and superior pubic rami are normal. Normal iliopectineal line. Sacrum is normal in appearance. Osteopenia. XR/XR pelvis 1-2V* [id number] IMPRESSION: Unremarkable pelvis Dictated By: Evangelist Sanderson MD Signed By: Evangelist Sanderson MD Signed Date/Time: 01/09/201541 DD/ 154 Discharge Plan Discharge Patient Disposition: Home, Self-Care Clinical Impression: Fall Qualifiers: Encounter type: initial encounter Qualified Code(s): W19.XXXA - Unspecified fall, initial encounter Contusion Qualifiers: Encounter type: initial encounter Contusion area: hip Laterality: left Qualified Code(s): S70.02XA - Contusion of left hip, initial encounter Sprain of left shoulder Qualifiers: Encounter type: initial encounter Shoulder sprain type: unspecified sprain Qualified Code(s): S43.402A - Unspecified sprain of left shoulder joint, initial encounter Condition: Stable Prescriptions: No Action Dulera 200-5 mcg/actuation HFA aerosol inhaler 2 puff INHALATION BID RF: 0 atorvastatin [Lipitor] 80 mg Tablet 80 mg PO DAILY RF: 0 atenolol 100 mg Tablet 100 mg PO DAILY RF: 0 omeprazole 40 mg Capsule,Delayed Release(Dr/Ec) 40 mg PO DAILY RF: 0 aspirin [Aspir-81] 81 mg Tablet,Delayed Release (Dr/Ec) 81 mg PO DAILY RF: 0 montelukast [Singulair] 10 mg Tablet 10 mg PO DAILY RF: 0 allopurinol 300 mg Tablet 300 mg PO DAILY RF: 0 albuterol sulfate [ProAir HFA] 90 mcg/actuation HFA aerosol inhaler 2 - 4 puff INHALATION QID PRN (Reason: Shortness Of Breath) RF: 0 metformin 500 mg Tablet Extended Release 24 Hr 500 mg PO BID RF: 0 loratadine 10 mg Tablet 10 mg PO DAILY RF: 0 lisinopril 20 mg Tablet 20 mg PO DAILY 30 Days Qty: 30 RF: 1 Tresiba FlexTouch U-200 200 unit/mL (3 mL) insulin pen 20 unit SUBCUT DAILY RF: 0 potassium chloride 20 mEq tablet extended release 20 meq PO TID Qty: 15 RF: 0 docusate sodium 100 mg capsule 200 mg PO BEDTIME RF: 0 furosemide 40 mg tablet 40 mg PO DAILY RF: 0 Discharge Orders: Discharge Order (Routine); Ordered 01/09/20 Ordered By: Mau Jonas Referrals: Stewart Rosario MD [Primary Care Provider] - Discharge Diet: Regular Discharge Activity: Increase activity as tolerated Patient Instructions: Contusion in Adults (ED), Shoulder Sprain (ED) Activity Restrictions/Additional Instructions: Follow-up with medical provider as directed in the next 7 to 10 days. Take [id number] ibuprofen for pain and inflammation. Apply ice/cold pack on hip and shoulder to help with symptoms. For the next 2 days I would rest and limit activity, then increase activity as tolerated. Return to the ER or your medical provider if condition worsens. Please read and understand discharge instructions. If any questions, please ask. Discharge Date/Time: 01/09/20 18:46 Coding Level of Care Code ED Digital Marketing Strategist for Zac Fwd Exam Comprehensive
--- NOTE | 2020-01-09 15:07 | XR_ITS ---
WS: [id number] PELVIS TECHNIQUE: 1 view(s) of the pelvis CLINICAL INFORMATION: fall with pain COMPARISON: None. FINDINGS: Visualized hips are normal in appearance. Normal acetabulum. Lower lumbar spine is normal. Inferior a nd superior pubic rami are normal. Normal iliopectineal line. Sacrum is normal in appearance. Osteope jani. XR/XR pelvis 1-2V* [id number] IMPRESSION: Unremarkable pelvis
--- NOTE | 2020-01-09 15:07 | XR_ITS ---
WS: [id number] HIP WITH PELVIS LEFT TECHNIQUE: 3 views of the left hip with pelvis CLINICAL INFORMATION: fall with left hip pain COMPARISON: None. FINDINGS: Osteopenia. Soft tissue edema. No visualized fractures. Moderate degenerative arthritis. XR/XR hip LT 2-3V wo/w pel* [id number] IMPRESSION: No visualized left hip fractures.
--- NOTE | 2020-01-09 15:07 | XR_ITS ---
WS: [id number] SHOULDER LEFT TECHNIQUE: 3 views of the left shoulder CLINICAL INFORMATION: fall with left shoulder pain COMPARISON: None. FINDINGS: Mild hypertrophic changes acromioclavicular joint. Normal glenohumeral joint. Acromion is normal in a ppearance. Normal glenoid. No evidence of acute fracture dislocation. XR/XR shoulder LT min 2V* [id number] IMPRESSION: No acute fractures
[2020-01-09 16:43] VITALS: BP 146/76; PULSE 85; RESP 18; O2SAT 98
[2020-01-09] MEDS: ibuprofen 600 mg Tablet PO (16:48)
[2020-01-09 17:13] VITALS: BP 151/73; PULSE 85; RESP 16; O2SAT 99
== END 2020-01-09 18:46 | disposition home or self-care (01) ==
PROVIDERS: Emergency Provider Physician Assistant; PCP Family Medicine
DX: S70.02XA Contusion of left hip, initial encounter (principal); S43.402A Unspecified sprain of left shoulder joint, initial encounter; Z79.82 Long term (current) use of aspirin; Z79.4 Long term (current) use of insulin; W18.30XA Fall on same level, unspecified, initial encounter; E78.2 Mixed hyperlipidemia; I10 Essential (primary) hypertension; Z87.891 Personal history of nicotine dependence
CPT/HCPCS: 12345; 72170; 73030; 73502; 99281; 99283

== ENCOUNTER 2020-01-14 13:52 | Emergency (ER) | payer MEDICAID, SELFPAY ==
--- NOTE | 2020-01-14 13:57 | CTR_ITS ---
PROCEDURE INFORMATION: Exam: CT Pelvis Without Contrast Exam date and time: 01/14/2020 2:28 PM Age: 49 years old Clinical indication: Cellulitis; Buttock; Patient HX: Coccygeal decubitis ulcer; Additional info: Decub ulcer TECHNIQUE: Imaging protocol: Computed tomography images of the pelvis without contrast. Axial, coronal and sagittal reformatted images were created and reviewed. Radiation optimization: All CT scans at this facility use at least one of these dose optimization techniques: automated exposure control; mA and/or kV adjustment per patient size (includes targeted exams where dose is matched to clinical indication); or iterative reconstruction. COMPARISON: CT chest abd pel wo con 12/08/2019 11:47 AM RADIATION DOSE METRICS: Total DLP (mGy-cm): 1369.26 FINDINGS: Kidneys and ureters: 2.2 x 2.1 cm simple left renal cyst. Nonobstructing right renal calculi. Stomach and bowel: Visualized small bowel and colon are unremarkable. Appendix: Normal. Intraperitoneal space: Unremarkable. No free air. No significant fluid collection. Lymph nodes: Small inguinal lymph nodes, likely reactive. No pathologically enlarged lymph nodes. Bladder: Normal. No mass. Reproductive: Normal as visualized. Bones/joints: No acute osseous abnormality. Osteopenia. Degenerative changes. Soft tissues: Mild, diffuse subcutaneous edema with overlying skin thickening. Scattered subcutaneous soft tissue nodules in the anterior abdominal wall, possibly related to prior injections. No convincing decubitus ulcer identified. Diffuse gluteal muscle atrophy. CT/CT pelvis wo con [id number] IMPRESSION: 1. No convincing decubitus ulcer identified. 2. Additional findings, as above. COMMENTS: Consistent with the [employer]'s Incidental Findings Committee white paper (J Am Eryn Radiol 2018): Any incidental renal lesion less than 1.0 cm or classified as too small to characterize, or any incidental cystic renal lesion characterized as simple-appearing, is likely benign. No follow-up imaging is recommended for these lesions per consensus recommendations based on imaging criteria. Radiation Dose CTDIVOL = (mGy): DLP = 1369.26 (mGy-cm)
--- NOTE | 2020-01-14 13:59 | W.ED.SKABFB ---
HPI - Skin/Abscess/Foreign Bdy General: Chief complaint: General Medical Stated complaint: L LEG PAIN, PRESSURE ULCER COCCYX Time Seen by Provider: 01/14/20 13:54 Source: patient Mode of arrival: ambulatory Limitations: no limitations History of Present Illness: HPI narrative: 49-year-old male who was recently discharged from the care home on Sunday. Patient had a decubitus ulcer that was there they were just treating with dressings. Patient's family was taken care of at home now noticed the ulcer and wanted it checked out. He states he does have pain the site he rates 3 out of 10. He denies any fevers. He denies any vomiting. Denies any worsening improving factors. Associated symptoms: Deny chills, fever(s), nausea or vomiting Review of Systems Const: Denies: fever(s), chills, body aches or change in appetite Eyes: Denies: blurry vision or eye discomfort ENMT: Denies: throat pain or dental pain Card: Denies: chest pain Resp: Denies: dyspnea GI: Denies: abdominal pain, nausea, vomiting or diarrhea : Denies: dysuria Musc: Denies: neck pain or back pain Skin/Breast: Reports: sores Neuro: Denies: headache(s) Psych: Denies: depression Mendel/Lymph: Denies: easy bruising All/Imm: Denies: urticaria PFSH ED PFSH: Medical History Diabetes Gout Hyperlipemia, mixed Hypertension Morbid (severe) obesity due to excess calories OPAL (obstructive sleep apnea) Pneumonia Surgical History History of adenoidectomy History of hernia repair History of tonsillectomy History of umbilical hernia repair Family History Mother Hypertension CAD (coronary artery disease) Stroke Social History Smoking and tobacco status: former smoker Second hand smoke exposure: Yes Alcohol intake: never Lives independently: Yes Household members: friend(s) Physical Exam Const: COMMON NORMALS: no acute distress, patient oriented x3 and healthy appearing HENMT: COMMON NORMALS: normocephalic and atraumatic HEAD & SCALP: normocephalic and atraumatic Eye: COMMON NORMALS: Equal, round and reactive pupils present and EOMs intact bilaterally PUPIL: Yes Equal, round and reactive pupils present Neck/C-Spine: COMMON NORMALS: full ROM and supple Chest: COMMONS NORMALS: normal inspection of the chest and normal palpation of entire chest wall Resp: COMMON NORMALS: normal respiratory effort, No retractions, No use of accessory muscles and clear to auscultation bilaterally AUSCULTATION: clear to auscultation bilaterally Cardio: COMMON NORMALS: regular rate, regular rhythm and No murmurs present (Cardio) RATE: regular rate RHYTHM: regular rhythm GI: COMMON NORMALS: Normal to inspection, nondistended, normoactive bowel sounds present, Soft to palpation, non-tender and no masses PALPATION: Yes Soft to palpation Extremity: COMMON NORMALS: normal to inspection and full ROM Neuro: COMMON NORMALS: patient oriented x3, moves all extremities and no focal motor deficits Psych: COMMON NORMALS: mental status grossly normal, Normal thought process present and cooperative THOUGHT PROCESS: Normal thought process present Skin: COMMON NORMALS: no rashes or lesions noted NARRATIVE SKIN EXAM: Grade 1 decubitus ulcer to coccyx with slight cellulitis GENERAL SKIN EXAM: no rashes or lesions noted Course Vital Signs: Vital signs: Vital Signs Temperature 99.2 F 01/14/20 14:04 Pulse Rate 88 01/14/20 14:47 Respiratory Rate 18 01/14/20 14:47 Blood Pressure 133/71 01/14/20 14:47 Pulse Oximetry 98 01/14/20 14:47 MDM - Skin/Abscess/Foreign Bdy MDM Narrative: Medical decision making narrative: Patient presents here with a mild decubitus ulcer. Patient's lab work and CT here are normal. We will get him follow-up with wound care and patient placed on Bactrim. He is to return if worsening. Lab Data: Labs: Lab Results 01/14/20 01/14/20 Range/Units 14:10 14:10 WBC 7.2 (4.0-10.0) 10^3/ uL RBC 3.98 L (4.1-5.3) 10^6/u L Hgb 9.5 L (11.7-16.6) g/dL Hct 33.8 L (42.0-52.0) % MCV 84.9 (80-94) fL MCH 23.9 L (28.0-34.0) pg MCHC 28.1 L (30.0-36.0) g/dL RDW 18.1 H (12.1-15.1) % Plt Count 378 (130-400) 10^3/c mm MPV 9.0 (7.4-10.4) fL Neut % (Auto) 74.5 % Lymph % (Auto) 16.9 % [place] % (Auto) 7.0 % Eos % (Auto) 1.1 % Baso % (Auto) 0.4 % Neut # (Auto) 5.34 (1.8-7.7) 10^3/u L Lymph # (Auto) 1.2 (0.8-4.8) 10^3/u L [place] # (Auto) 0.5 (0.2-0.9) 10^3/u L Eos # (Auto) 0.1 (0.0-0.8) 10^3/u L Baso # (Auto) 0.0 (0.0-0.1) 10^3/u L Nucleated RBC % (a uto) 0 % Nucleated RBCs # 0.0 /100WBC Sodium 140 (136-145) mmol/L Potassium 4.1 (3.5-5.1) mmol/L Chloride 102 (98-107) mmol/L Carbon Dioxide 28 (22-29) mmol/L Anion Gap 14.1 (5-19) BUN 9 (6-20) mg/dL Creatinine 0.7 (0.7-1.2) mg/dL GFR Calculation 120.9 (90-130) mL/min Glucose 99 (65-115) mg/dL Calculated Osmolal ity 286 (285-295) mOsm/k g Calcium 9.5 (8.5-10.5) mg/dL Total Bilirubin 0.7 (0.15-1.2) mg/dL AST 20 (0-40) U/L ALT 14 (0-41) U/L Alkaline Phosphata se 307 H (40-130) IU/L Total Protein 7.0 (6.6-8.7) g/dL Albumin 3.5 (3.5-5.2) g/dL Globulin 3.5 (1.3-4.6) g/dL Imaging Data^: CT Abd/Pel: Radiologist's impression: [address] [place] [address] CT Scan Report Signed Patient: Arnol Guzman Unit #: [id number] : 1970 Age/Sex: 49 / M ADM Date: 01/14/20 Loc: ER Room/Bed: Attending Dr: Ordering Provider/Ordering MD: Jesús Pickard MD Date of Service: 01/14/20 Procedure(s): CT pelvis wo con [id number] Accession Number(s): [id number] Report Number: [id number] PROCEDURE INFORMATION: Exam: CT Pelvis Without Contrast Exam date and time: 01/14/2020 2:28 PM Age: 49 years old Clinical indication: Cellulitis; Buttock; Patient HX: Coccygeal decubitis ulcer; Additional info: Decub ulcer TECHNIQUE: Imaging protocol: Computed tomography images of the pelvis without contrast. Axial, coronal and sagittal reformatted images were created and reviewed. Radiation optimization: All CT scans at this facility use at least one of these dose optimization techniques: automated exposure control; mA and/or kV adjustment per patient size (includes targeted exams where dose is matched to clinical indication); or iterative reconstruction. COMPARISON: CT chest abd pel wo con 12/08/2019 11:47 AM RADIATION DOSE METRICS: Total DLP (mGy-cm): 1369.26 FINDINGS: Kidneys and ureters: 2.2 x 2.1 cm simple left renal cyst. Nonobstructing right renal calculi. Stomach and bowel: Visualized small bowel and colon are unremarkable. Appendix: Normal. Intraperitoneal space: Unremarkable. No free air. No significant fluid collection. Lymph nodes: Small inguinal lymph nodes, likely reactive. No pathologically enlarged lymph nodes. Bladder: Normal. No mass. Reproductive: Normal as visualized. Bones/joints: No acute osseous abnormality. Osteopenia. Degenerative changes. Soft tissues: Mild, diffuse subcutaneous edema with overlying skin thickening. Scattered subcutaneous soft tissue nodules in the anterior abdominal wall, possibly related to prior injections. No convincing decubitus ulcer identified. Diffuse gluteal muscle atrophy. CT/CT pelvis wo con [id number] IMPRESSION: 1. No convincing decubitus ulcer identified. 2. Additional findings, as above. Discharge Plan Discharge Patient Disposition: Home, Self-Care Clinical Impression: Decubitus ulcer limited to breakdown of skin (stage 2) Qualifiers: Pressure injury location: buttock Condition: Stable Prescriptions: New Bactrim DS 800-160 mg tablet 1 tab PO BID 7 Days Qty: 14 RF: 0 No Action Dulera 200-5 mcg/actuation HFA aerosol inhaler 2 puff INHALATION BID RF: 0 atorvastatin [Lipitor] 80 mg Tablet 80 mg PO DAILY RF: 0 atenolol 100 mg Tablet 100 mg PO DAILY RF: 0 omeprazole 40 mg Capsule,Delayed Release(Dr/Ec) 40 mg PO DAILY RF: 0 aspirin [Aspir-81] 81 mg Tablet,Delayed Release (Dr/Ec) 81 mg PO DAILY RF: 0 montelukast [Singulair] 10 mg Tablet 10 mg PO DAILY RF: 0 allopurinol 300 mg Tablet 300 mg PO DAILY RF: 0 albuterol sulfate [ProAir HFA] 90 mcg/actuation HFA aerosol inhaler 2 - 4 puff INHALATION QID PRN (Reason: Shortness Of Breath) RF: 0 metformin 500 mg Tablet Extended Release 24 Hr 500 mg PO BID RF: 0 loratadine 10 mg Tablet 10 mg PO DAILY RF: 0 lisinopril 20 mg Tablet 20 mg PO DAILY 30 Days Qty: 30 RF: 1 Tresiba FlexTouch U-200 200 unit/mL (3 mL) insulin pen 20 unit SUBCUT DAILY RF: 0 potassium chloride 20 mEq tablet extended release 20 meq PO TID Qty: 15 RF: 0 docusate sodium 100 mg capsule 200 mg PO BEDTIME RF: 0 furosemide 40 mg tablet 40 mg PO DAILY RF: 0 Discharge Orders: Discharge Order (Routine); Ordered 01/14/20 Ordered By: Jesús Pickard Referrals: Stewart Rosario MD [Primary Care Provider] - 1-3 days Discharge Diet: Advance as tolerated Discharge Activity: Resume usual activity Patient Instructions: How to Prevent Pressure Ulcers (ED), Pressure Ulcer (ED) Coding Level of Care Code ED Mask Inspector for Chg Fwd Exam Comprehensive
[2020-01-14 14:04] VITALS: BP 142/67; PULSE 86; RESP 18; TEMP 37.3; O2SAT 97; BMI 56.2
[2020-01-14 14:17] LABS: Basophils % 0.4 %; Eosinophils # 0.1 10^3/uL (0.0-0.8); Eosinophils % 1.1 %; Hematocrit 33.8 % (42.0-52.0); Hemoglobin 9.5 g/dL (11.7-16.6); Lymphocytes # 1.2 10^3/uL (0.8-4.8); Lymphocytes % 16.9 %; Mean Corpuscular HGB Conc 28.1 g/dL (30.0-36.0); Mean Corpuscular Hemoglobin 23.9 pg (28.0-34.0); Mean Corpuscular Volume 84.9 fL (80-94); Monocytes # 0.5 10^3/uL (0.2-0.9); Neutrophils # 5.34 10^3/uL (1.8-7.7); Neutrophils % 74.5 %; Nucleated Red Blood Cells % 0 %; Platelet Count 378 10^3/cmm (130-400); Red Blood Count 3.98 10^6/uL (4.1-5.3); Red Cell Distribution Width 18.1 % (12.1-15.1); White Blood Count 7.2 10^3/uL (4.0-10.0)
[2020-01-14 14:47] VITALS: BP 133/71; PULSE 88; RESP 18; O2SAT 98
[2020-01-14] MEDS: sodium chloride 0.9% 1,000 ML 999 ML IV (14:51)
[2020-01-14] MEDS: vancomycin 1,000 MG in sodium chloride 0.9% 250 ML 250 MG IV (14:52)
[2020-01-14 15:51] LABS: Alanine Aminotransferase 14 U/L (0-41); Albumin Level 3.5 g/dL (3.5-5.2); Alkaline Phosphatase 307 IU/L (40-130); Anion Gap 14.1 (5-19); Aspartate Amino Transferase 20 U/L (0-40); Blood Urea Nitrogen 9 mg/dL (6-20); Calcium 9.5 mg/dL (8.5-10.5); Carbon Dioxide 28 mmol/L (22-29); Chloride 102 mmol/L (98-107); Globulin 3.5 g/dL (1.3-4.6); Glomerular Filtration Rate 120.9 mL/min (90-130); Glucose 99 mg/dL (65-115); Osmolality Calculated 286 mOsm/kg (285-295); Potassium 4.1 mmol/L (3.5-5.1); Sodium 140 mmol/L (136-145); Total Bilirubin 0.7 mg/dL (0.15-1.2)
[2020-01-14 16:25] VITALS: BP 164/79; PULSE 89; RESP 18; O2SAT 96
--- NOTE | 2020-01-15 09:34 | DCPLANNER ---
manager summer had message to schedule a follow up appointment for patient with Wound Care. manager summer called the Wound Care clinic, spoke with Shyanne, a follow up appointment was scheduled for Sunday, January 19, [address] at 8:[address] Mills. manager summer called patient to give patient the appointment information, unable to speak with patient at this time. manager summer left a voicemail for patient to return pillowcase maker phone call.
--- NOTE | 2020-01-20 13:26 | DCPLANNER ---
Patient did attend follow up appointment for patient with Wound Care on 01.19.20.
== END 2020-01-14 16:49 | disposition home or self-care (01) ==
PROVIDERS: Emergency Provider Emergency Medicine; PCP Family Medicine
DX: L89.302 Pressure ulcer of unspecified buttock, stage 2 (principal); Z79.82 Long term (current) use of aspirin; Z79.4 Long term (current) use of insulin; E11.9 Type 2 diabetes mellitus without complications; E78.2 Mixed hyperlipidemia; I10 Essential (primary) hypertension; Z87.891 Personal history of nicotine dependence
CPT/HCPCS: 12345; 36415; 72192; 80053; 85025; 87040; 87070; 96365; 99283; J3370; J7030; J7050

== ENCOUNTER 2020-01-19 13:17 | Outpatient (CLI) | payer MEDICAID, SELFPAY | END 2020-01-19 13:18 | disposition home or self-care (01) | LOC: WOUND 13:18 | PROVIDERS: PCP Family Medicine; Visit Provider Emergency Medicine | DX: I96 Gangrene, not elsewhere classified (principal); L89.323 Pressure ulcer of left buttock, stage 3 | CPT/HCPCS: 11042; G0463 ==

== ENCOUNTER 2020-01-21 20:27 | Inpatient (IN) | payer MEDICAID, SELFPAY ==
[2020-01-21 20:33] VITALS: BP 135/79; PULSE 77; RESP 18; TEMP 37.1; O2SAT 94; BMI 56.2
--- NOTE | 2020-01-21 21:06 | W.ED.NEUROSD ---
HPI - Neuro Symptoms/Deficit General: Chief Complaint: Neuro Symptoms/Deficit Stated Complaint: neuro symptoms Time Seen by Provider: 01/21/20 20:53 Source: patient and family Mode of arrival: wheelchair Limitations: no limitations History of Present Illness: HPI Narrative: Arnol is a very nice 49-year-old male who comes in complaining of numbness and weakness of his left arm and leg. His niece says he also had speech problems as well. He noticed the symptoms at 7 PM while he was sleeping and he rolled over and noticed the weakness. Since that time his symptoms have almost completely resolved he says he only has a vague sensation of heaviness in his left arm. He denies any chest pain, shortness of breath but was diaphoretic during this episode. He had some slurred speech as well but this is resolved according to his niece. Patient states he feels back to normal at this time. He does state that he had a stroke on November 30 while in the hospital for another issue. Associated symptoms: Deny chest pain, diaphoresis, headache(s), malaise, nausea, syncope, vertigo or vomiting Review of Systems Const: Denies: fever(s), chills, body aches, fatigue, malaise or diaphoresis Eyes: Denies: change in vision, blurry vision, blind spots, photophobia, eye discharge or eye redness ENMT: Denies: throat pain, odynophagia, hoarseness, swelling of lips/tongue, oral sores, ear or mastoid pain, ear discharge, change in hearing or nasal discharge Card: Denies: chest pain, palpitations, irregular heart rhythm, edema, lightheadedness, syncope, pre-syncope, dyspnea on exertion or orthopnea Resp: Denies: dyspnea, productive cough, non-productive cough, wheezing, hemoptysis or chest congestion GI: Denies: abdominal pain, nausea, vomiting, hematemesis, coffee ground emesis, heartburn, diarrhea, constipation, GI cramping, hematochezia or melena : Denies: flank pain, dysuria, urinary frequency, urinary urgency or hematuria Musc: Denies: neck pain, back pain, extremity pain, extremity swelling, joint pain, joint swelling, joint redness, joint warmth or joint stiffness Skin/Breast: Denies: rash, pruritus, erythema, skin tenderness or jaundice Neuro: Denies: headache(s), lack of coordination, difficulty walking, dizziness, vertigo, confusion or seizure-like activity Mendel/Lymph: Denies: easy bruising, easy bleeding, petechiae, purpura or enlarged lymph nodes All/Imm: Denies: urticaria, throat swelling, tongue swelling, facial swelling or acute wheezing PFSH ED PFSH: Medical History Diabetes Gout Hyperlipemia, mixed Hypertension Morbid (severe) obesity due to excess calories OPAL (obstructive sleep apnea) Pneumonia Surgical History History of adenoidectomy History of hernia repair History of tonsillectomy History of umbilical hernia repair Family History Mother Hypertension CAD (coronary artery disease) Stroke Social History Smoking and tobacco status: former smoker Second hand smoke exposure: Yes Alcohol intake: never Lives independently: Yes Household members: friend(s) NIH stroke score NIHSS: Level Of Consciousness - 1a: 0 Level Of Consciousness Questions - 1b: Both Correct Level Of Consciousness Commands - 1c: Both Correct Best Gaze - 2: Normal Visual Yanes - 3: No Visual Loss Facial Palsy - 4: Normal Motor Arm Right - 5: No Drift Motor Arm Left - 5: No Drift Motor Leg Right - 6: No Drift Motor Leg Left - 6: No Drift Limb Ataxia - 7: Absent Sensory - 8: Normal Best Language - 9: No Aphasia Dysarthia - 10: Mild/Moderate Dysarthia Extinction And Inattention - 11: 0 Score: Total Score: 1 Physical Exam Const: COMMON NORMALS: no acute distress, patient oriented x3, no limitations, healthy appearing and well nourished GENERAL APPEARANCE: cooperative, well kempt and well developed HENMT: COMMON NORMALS: normocephalic, atraumatic, external ears normal, EAC's normal and Normal external nose present HEAD & SCALP: normal to inspection, normocephalic and atraumatic FACE & SINUS: normal facial exam and face symmetric NOSE: Normal external nose present and Normal nares present EXTERNAL EAR: Yes external ears normal EXTERNAL AUDITORY CANAL: EAC's normal MOUTH: Normal oral and palatal mucosa present, lip normal and tongue normal Eye: COMMON NORMALS: Equal, round and reactive pupils present and conjunctivae normal GENERAL EYE: appearance normal, both eyes and all related structures ALIGNMENT: Yes alignment normal PERIORBITAL: periorbital findings normal EYELID: eyelids normal CONJUNCTIVA: Yes conjunctivae normal SCLERA: sclerae normal PUPIL: Yes Equal, round and reactive pupils present Neck/C-Spine: COMMON NORMALS: full ROM, no lymphadenopathy, supple, no meningeal signs and no JVD GENERAL: Yes normal visual inspection and Yes trachea midline Chest: COMMONS NORMALS: normal inspection of the chest and normal palpation of entire chest wall Resp: COMMON NORMALS: normal respiratory effort, No retractions and No use of accessory muscles EFFORT & INSPECTION: Yes able to speak in complete sentences and Yes symmetric chest movement AUSCULTATION: no crackles, no rales, no rhonchi and no wheezes Cardio: COMMON NORMALS: no JVD, regular rate, regular rhythm, S1 normal heart sound present and S2 normal heart sound present RATE: regular rate RHYTHM: regular rhythm HEART SOUNDS: S1 normal heart sound present, S2 normal heart sound present, no click, no gallops, no murmurs, no rubs and abnormal split S2 GI: COMMON NORMALS: Soft to palpation and No hepatosplenomegaly present PALPATION: Yes Soft to palpation, No Tenderness to palpation present (GI), No Guarding due to palpation present (GI), No Rigid due to palpation, Yes No hepatosplenomegaly present, No Hernia present, No Palpable mass present and No Pulsatile mass present : COMMON NORMALS: Yes no CVA tenderness BLADDER/KIDNEY EXAM: Yes no CVA tenderness Back/Pelvis: COMMON NORMALS: no CVA tenderness, thoracic and lumbar spine normal to inspection, no thoracic nor lumbar tenderness and thoraco-lumbar ROM normal Extremity: COMMON NORMALS: normal to inspection, full ROM, capillary refill normal, no joint enlargement, no clubbing, cyanosis or edema and no calf tenderness Neuro: COMMON NORMALS: patient oriented x3, CN's II-XII intact bilaterally, moves all extremities, no focal motor deficits and no sensory deficits noted MENINGEAL SIGNS: Yes no meningeal signs Psych: COMMON NORMALS: mental status grossly normal, Normal thought process present, cooperative, normal affect, speech normal and activity/motor behavior normal APPEARANCE: Yes well kempt SPEECH: Yes normal speech THOUGHT PROCESS: Normal thought process present Skin: COMMON NORMALS: no rashes or lesions noted, turgor normal, no jaundice, no petechiae and no mottling GENERAL SKIN EXAM: no rashes or lesions noted and turgor normal Course Vital Signs: Vital signs: Vital Signs Temperature 98.7 F 01/21/20 20:33 Pulse Rate 75 01/21/20 23:17 Respiratory Rate 18 01/21/20 23:17 Blood Pressure 132/67 01/21/20 23:17 Pulse Oximetry 99 01/21/20 23:17 MDM - Neuro Symptoms/Deficit MDM Narrative: Medical decision making narrative: Arnol is a very nice 49-year-old male who comes in complaining of strokelike symptoms. His symptoms have almost resolved and he is not a TPA or interventional candidate based upon his scores. Interestingly the patient has signs of a masslike effect on the left parietal area of his brain. I have reviewed all this with Dr. Hickey who is agreeable to admission. He will admit for MRI and further work-up for possible metastatic disease. Lab Data: Attestation: I reviewed the patient's lab results. Labs: Lab Results 01/21/20 01/21/20 01/21/20 Range/Units 21:58 21:58 21:58 WBC 6.5 (4.0-10.0) 10^3/ uL RBC 4.12 (4.1-5.3) 10^6/u L Hgb 9.7 L (11.7-16.6) g/dL Hct 34.7 L (42.0-52.0) % MCV 84.2 (80-94) fL MCH 23.5 L (28.0-34.0) pg MCHC 28.0 L (30.0-36.0) g/dL RDW 18.4 H (12.1-15.1) % Plt Count 358 (130-400) 10^3/c mm MPV 9.0 (7.4-10.4) fL Neut % (Auto) 67.1 % Lymph % (Auto) 23.2 % [place] % (Auto) 7.7 % Eos % (Auto) 1.2 % Baso % (Auto) 0.5 % Neut # (Auto) 4.37 (1.8-7.7) 10^3/u L Lymph # (Auto) 1.5 (0.8-4.8) 10^3/u L Fallon # (Auto) 0.5 (0.2-0.9) 10^3/u L Eos # (Auto) 0.1 (0.0-0.8) 10^3/u L Baso # (Auto) 0.0 (0.0-0.1) 10^3/u L Nucleated RBC % (a uto) 0 % Nucleated RBCs # 0.0 /100WBC Sodium 137 (136-145) mmol/L Potassium 3.6 (3.5-5.1) mmol/L Chloride 99 (98-107) mmol/L Carbon Dioxide 29 (22-29) mmol/L Anion Gap 12.6 (5-19) BUN 11 (6-20) mg/dL Creatinine 0.8 (0.7-1.2) mg/dL GFR Calculation 103.6 (90-130) mL/min Glucose 99 (65-115) mg/dL Calculated Osmolal ity 280 L (285-295) mOsm/k g Calcium 9.0 (8.5-10.5) mg/dL Magnesium 1.6 L (1.7-2.3) mg/dL Total Bilirubin 0.6 (0.15-1.2) mg/dL AST 32 (0-40) U/L ALT 22 (0-41) U/L Alkaline Phosphata se 315 H (40-130) IU/L Troponin T Baselin e 54 H (0-15) ng/L Troponin T 120 Min [place] (0-15) ng/L Delta Troponin T (0-10) ABS# Total Protein 6.8 (6.6-8.7) g/dL Albumin 3.4 L (3.5-5.2) g/dL Globulin 3.4 (1.3-4.6) g/dL Ethyl Alcohol < 10 (0-10) mg/dL 01/21/20 Range/Units 22:55 WBC (4.0-10.0) 10^3/ uL RBC (4.1-5.3) 10^6/u L Hgb (11.7-16.6) g/dL Hct (42.0-52.0) % MCV (80-94) fL MCH (28.0-34.0) pg MCHC (30.0-36.0) g/dL RDW (12.1-15.1) % Plt Count (130-400) 10^3/c mm MPV (7.4-10.4) fL Neut % (Auto) % Lymph % (Auto) % [place] % (Auto) % Eos % (Auto) % Baso % (Auto) % Neut # (Auto) (1.8-7.7) 10^3/u L Lymph # (Auto) (0.8-4.8) 10^3/u L [place] # (Auto) (0.2-0.9) 10^3/u L Eos # (Auto) (0.0-0.8) 10^3/u L Baso # (Auto) (0.0-0.1) 10^3/u L Nucleated RBC % (a uto) % Nucleated RBCs # /100WBC Sodium (136-145) mmol/L Potassium (3.5-5.1) mmol/L Chloride (98-107) mmol/L Carbon Dioxide (22-29) mmol/L Anion Gap (5-19) BUN (6-20) mg/dL Creatinine (0.7-1.2) mg/dL GFR Calculation (90-130) mL/min Glucose (65-115) mg/dL Calculated Osmolal ity (285-295) mOsm/k g Calcium (8.5-10.5) mg/dL Magnesium (1.7-2.3) mg/dL Total Bilirubin (0.15-1.2) mg/dL AST (0-40) U/L ALT (0-41) U/L Alkaline Phosphata se (40-130) IU/L Troponin T Baselin e (0-15) ng/L Troponin T 120 Min [place] 52.12 H (0-15) ng/L Delta Troponin T -1.88 L (0-10) ABS# Total Protein (6.6-8.7) g/dL Albumin (3.5-5.2) g/dL Globulin (1.3-4.6) g/dL Ethyl Alcohol (0-10) mg/dL Imaging Data^: CT Head: Radiologist's impression: [address] [address] [address] Scan Report Signed with Melvin Patient: Arnol Guzman Unit #: [id number] : 1970 Age/Sex: 49 / M ADM Date: 01/21/20 Loc: ER Room/Bed: Attending Dr: Ordering Provider/Ordering MD: Mili Dia DO Date of Service: 01/21/20 Procedure(s): CT head wo con* [id number] Accession Number(s): [id number] Report Number: [id number]/CT head wo con* [id number] The findings were discussed with Dr. Dia on 01/21/2020 10:33 PM CDT. Radiation Dose CTDIVOL = (mGy): DLP = 883.03 (mGy-cm) Addendum Dictated By: Atif Urena MD Addendum Signed By: Atif Urena MD Signed Date/Time: 01/21/20 36 Addendum Cosigned By: PROCEDURE INFORMATION: Exam: CT Head Without Contrast Exam date and time: 01/21/2020 10:06 PM Age: 49 years old Clinical indication: Weakness, extremity; Left; Additional info: Strokelike symptoms TECHNIQUE: Imaging protocol: Computed tomography of the head without contrast. Radiation optimization: All CT scans at this facility use at least one of these dose optimization techniques: automated exposure control; mA and/or kV adjustment per patient size (includes targeted exams where dose is matched to clinical indication); or iterative reconstruction. COMPARISON: CT head wo con* [id number] 11/25/2019 6:34 AM RADIATION DOSE METRICS: Total DLP (mGy-cm): 883.03 FINDINGS: Brain: There is a well-defined hypodensity in the high right frontal lobe measuring roughly 1.5 cm x 0.8 cm on series 2, image 51. Appearance is consistent with encephalomalacia relating to remote insult (such as infarct). This finding is new since the prior study. There is a 2.5 cm x 1.7 cm ill-defined hypodensity in the left parietal lobe demonstrated on series 2, image 38. This is concerning for edema relating to underlying mass (such as metastatic lesion). MRI of the head with contrast is suggested for further evaluation. No abnormal intra-axial or extra-axial fluid collections are identified. There is no midline shift. No intracranial hemorrhage identified. Ventricles: The ventricular system is within normal limits for size and configuration. Bones/joints: Small right frontal exostosis (series 2, image 10). Sinuses: Visualized sinuses are unremarkable. No fluid levels. Mastoid air cells: Visualized mastoid air cells are well aerated. Soft tissues: Unremarkable. CT/CT head wo con* [id number] IMPRESSION: 1. Left parietal lobe hypodense lesion, concerning for edema relating to underlying mass (such as metastatic lesion). MRI of the head with contrast is suggested for further evaluation. 2. No intracranial hemorrhage identified. Radiation Dose CTDIVOL = (mGy): DLP = 883.03 (mGy-cm) Dictated By: Atif Urena MD Signed By: Atif Urena MD Signed Date/Time: 01/21/202233 DD/ 32 EKG Data^: EKG 1: Attestation: I personally reviewed and interpreted this EKG as follows: EKG interpretation date: 01/21/20 EKG interpretation time: 22:32 Interpretation: Normal sinus rhythm at 73 beats a minute, no acute ST or T wave changes. Discharge Plan Discharge Patient Disposition: Placed in Observation Clinical Impression: Transient cerebral ischemia, Brain mass Condition: Stable Prescriptions: No Action atorvastatin [Lipitor] 80 mg Tablet 80 mg PO DAILY RF: 0 atenolol 100 mg Tablet 100 mg PO DAILY RF: 0 omeprazole 40 mg Capsule,Delayed Release(Dr/Ec) 40 mg PO DAILY RF: 0 aspirin [Aspir-81] 81 mg Tablet,Delayed Release (Dr/Ec) 81 mg PO DAILY RF: 0 montelukast [Singulair] 10 mg Tablet 10 mg PO BEDTIME RF: 0 allopurinol 300 mg Tablet 600 mg PO DAILY RF: 0 metformin 500 mg Tablet Extended Release 24 Hr 500 mg PO BID RF: 0 furosemide 40 mg tablet 40 mg PO DAILY RF: 0 glipizide 10 mg Tablet Extended Release 24hr 10 mg PO BID RF: 0 sulfamethoxazole-trimethoprim 800-160 mg tablet 1 tab PO BID RF: 0 desvenlafaxine succinate 50 mg Tablet Extended Release 24 Hr 50 mg PO DAILY RF: 0 Janumet XR 50-1,000 mg tablet, ER multiphase 24 hr 1 tab PO BID RF: 0 Referrals: Stewart Rosario MD [Primary Care Provider] - Coding Level of Care Code ED Office Machine Technician for Chg Fwd Exam Comprehensive
--- NOTE | 2020-01-21 21:43 | XR_ITS ---
WS: [id number] CHEST XRAY TECHNIQUE: Portable chest. CLINICAL INFORMATION: AMS COMPARISON: December 08, 2019 FINDINGS: Shallow inspiration. Heart: Normal cardiac silhouette. Lungs: Mild interstitial thickening. No acute pulmonary infiltrates. No focal pneumonia. Bones: Normal visualized bony structures. XR/XR chest 1V portable 35000 IMPRESSION: No acute infiltrates
--- NOTE | 2020-01-21 21:44 | CTR_ITS ---
PROCEDURE INFORMATION: Exam: CT Head Without Contrast Exam date and time: 01/21/2020 10:06 PM Age: 49 years old Clinical indication: Weakness, extremity; Left; Additional info: Strokelike symptoms TECHNIQUE: Imaging protocol: Computed tomography of the head without contrast. Radiation optimization: All CT scans at this facility use at least one of these dose optimization techniques: automated exposure control; mA and/or kV adjustment per patient size (includes targeted exams where dose is matched to clinical indication); or iterative reconstruction. COMPARISON: CT head wo con* [id number] 11/25/2019 6:34 AM RADIATION DOSE METRICS: Total DLP (mGy-cm): 883.03 FINDINGS: Brain: There is a well-defined hypodensity in the high right frontal lobe measuring roughly 1.5 cm x 0.8 cm on series 2, image 51. Appearance is consistent with encephalomalacia relating to remote insult (such as infarct). This finding is new since the prior study. There is a 2.5 cm x 1.7 cm ill-defined hypodensity in the left parietal lobe demonstrated on series 2, image 38. This is concerning for edema relating to underlying mass (such as metastatic lesion). MRI of the head with contrast is suggested for further evaluation. No abnormal intra-axial or extra-axial fluid collections are identified. There is no midline shift. No intracranial hemorrhage identified. Ventricles: The ventricular system is within normal limits for size and configuration. Bones/joints: Small right frontal exostosis (series 2, image 10). Sinuses: Visualized sinuses are unremarkable. No fluid levels. Mastoid air cells: Visualized mastoid air cells are well aerated. Soft tissues: Unremarkable. CT/CT head wo con* [id number] IMPRESSION: 1. Left parietal lobe hypodense lesion, concerning for edema relating to underlying mass (such as metastatic lesion). MRI of the head with contrast is suggested for further evaluation. 2. No intracranial hemorrhage identified. Radiation Dose CTDIVOL = (mGy): DLP = 883.03 (mGy-cm)
--- NOTE | 2020-01-21 21:44 | ECG_ITS ---
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 Measurements Intervals [place] Rate: 73 P: 77 CO: 170 QRS: 60 QRSD: 97 T: 75 QT: 409 QTc: 454 Interpretive Statements SINUS RHYTHM Compared to ECG 12/08/2019 21:18:43 Incomplete right bundle-branch block no longer present Electronically Signed On 01-23-2020 0:06:13 CDT by Tay Mireles M.D. [id number]
[2020-01-21 22:04] LABS: Basophils % 0.5 %; Eosinophils # 0.1 10^3/uL (0.0-0.8); Eosinophils % 1.2 %; Hematocrit 34.7 % (42.0-52.0); Hemoglobin 9.7 g/dL (11.7-16.6); Lymphocytes # 1.5 10^3/uL (0.8-4.8); Lymphocytes % 23.2 %; Mean Corpuscular Hemoglobin 23.5 pg (28.0-34.0); Mean Corpuscular Volume 84.2 fL (80-94); Monocytes # 0.5 10^3/uL (0.2-0.9); Monocytes % 7.7 %; Neutrophils # 4.37 10^3/uL (1.8-7.7); Neutrophils % 67.1 %; Nucleated Red Blood Cells % 0 %; Platelet Count 358 10^3/cmm (130-400); Red Blood Count 4.12 10^6/uL (4.1-5.3); Red Cell Distribution Width 18.4 % (12.1-15.1); White Blood Count 6.5 10^3/uL (4.0-10.0)
[2020-01-21 22:20] LABS: Alanine Aminotransferase 22 U/L (0-41); Albumin Level 3.4 g/dL (3.5-5.2); Alcohol Level < 10 mg/dL (0-10); Alkaline Phosphatase 315 IU/L (40-130); Anion Gap 12.6 (5-19); Aspartate Amino Transferase 32 U/L (0-40); Blood Urea Nitrogen 11 mg/dL (6-20); Carbon Dioxide 29 mmol/L (22-29); Chloride 99 mmol/L (98-107); Globulin 3.4 g/dL (1.3-4.6); Glomerular Filtration Rate 103.6 mL/min (90-130); Glucose 99 mg/dL (65-115); Magnesium 1.6 mg/dL (1.7-2.3); Osmolality Calculated 280 mOsm/kg (285-295); Potassium 3.6 mmol/L (3.5-5.1); Sodium 137 mmol/L (136-145); Total Bilirubin 0.6 mg/dL (0.15-1.2); Total Protein 6.8 g/dL (6.6-8.7)
[2020-01-21 22:22] LABS: Troponin(5th) Baseline 54 ng/L (0-15)
[2020-01-21 22:49] VITALS: BP 138/80; PULSE 75; RESP 18; O2SAT 98
[2020-01-21 23:17] VITALS: BP 132/67; PULSE 75; RESP 18; O2SAT 99
[2020-01-22] VITALS (13 sets, daily range): BP systolic 122–153; BP diastolic 53–86; PULSE 78–98; RESP 16–22; TEMP 36.6–36.9; O2SAT 92–100; BMI 54.2
[2020-01-22 00:10] LABS: Troponin 5 2HR 52.12 ng/L (0-15)
[2020-01-22 00:23] LABS: Troponin 5 2HR Delta -1.88 ABS# (0-10)
--- NOTE | 2020-01-22 02:14 | PM.HP ---
Providers/Chief Complaint Primary Care Provider: Stewart Rosario MD Chief Complaint: neuro symptoms History of Present Illness Arnol Guzman is a 49 year old gentleman with history of diabetes, HLD, HTN, OPAL, morbid obesity, recent hospitalization in November during which he reports he suffered a stroke, and also had prolonged respiratory failure, ARDS, MOF, requiring intubation, with difficulties weaning off oxygen, requiring subsequent placement [facility] states that [facility] where he actually progressed quite well, was regaining dependence, able to ambulate. Currently he is living at home by himself, however, with significant help from his caregiver who is his niece, who comes to help him with cooking, cleaning, bathing. He reports that he has been having some occasional intermittent numbness of the distal left upper extremity. Today last time his caregiver had seen him was around 3 PM at which time he was at his baseline. Subsequently he reportedly was feeling warm and diaphoretic, and subsequently noticed also weakness of the left upper and lower extremity, as well as numbness. Due to concern for possible CVA caregiver called EMS for additional evaluation in the ER. Here his symptoms had resolved fairly rapidly. NIH stroke scale was found as 1. His numbness is almost completely gone, and power back to normal, he was able to stand up. However, on assessment by CT of the head he is found to have a left parietal lobe hypodense lesion, concerning for edema relating to underlying mass, possibly metastatic lesion. He does report that he is been having some sensation of his head being squeezed in a vice for a a while. His caregiver also states that that sometimes has been causing him to become quite angry. He denies outright headache. He denies any seizure-like activity. He has had some blurriness of vision on and off. He reports that he in the past had seen Dr. Niño, however, states that multiple examinations were required, and he stopped following up. With regards to smoking history, he states that he smoked only for brief time in his teenage years, however, says that he has had quite a bit of exposure to secondhand smoke. Review of Systems Const: Denies: fever(s), chills, body aches or malaise Eyes: Denies: change in vision or eye redness ENMT: Denies: throat pain, oral sores or ear or mastoid pain Card: Denies: chest pain, edema, pre-syncope or dyspnea on exertion Resp: Denies: dyspnea, productive cough, change in phlegm color or hemoptysis GI: Denies: abdominal pain, nausea, vomiting, diarrhea, constipation, hematochezia or melena : Denies: flank pain, difficulty urinating, urinary frequency or hematuria Musc: Denies: back pain, joint swelling or joint redness Skin/Breast: Denies: rash, sores or new lesions Neuro: Denies: headache(s), numbness in extremities, weakness in extremities, dizziness, confusion or seizure-like activity Endo: Denies: polyuria or polydipsia Mendel/Lymph: Denies: easy bleeding or purpura All/Imm: Denies: urticaria, throat swelling or tongue swelling Medications/Allergies Home Medications Medication Instructions Recorded Confirmed Last Taken Type allopurinol 600 mg PO DAILY 07/14/19 01/21/20 01/21/20 History aspirin [Aspir-81] 81 mg PO DAILY 07/14/19 01/21/20 01/21/20 History atenolol 100 mg PO DAILY 07/14/19 01/21/20 01/21/20 History atorvastatin [Lipitor] 80 mg PO DAILY 07/14/19 01/21/20 01/21/20 History metformin 500 mg PO BID 07/14/19 01/21/20 01/21/20 History montelukast [Singulair] 10 mg PO BEDTIME 07/14/19 01/21/20 01/20/20 History omeprazole 40 mg PO DAILY 07/14/19 01/21/20 01/21/20 History furosemide 40 mg PO DAILY 12/01/19 01/21/20 01/21/20 History desvenlafaxine succinate 50 mg PO DAILY 01/21/20 01/21/20 01/21/20 History glipizide 10 mg PO BID 01/21/20 01/21/20 01/21/20 History sitagliptin-metformin [Janumet XR] 1 tab PO BID 01/21/20 01/21/20 01/21/20 History sulfamethoxazole-trimethoprim 1 tab PO BID 01/21/20 01/21/20 01/21/20 History Allergies Allergy/AdvReac Type Severity Reaction Status Date / Time Penicillins Allergy ALGY-Hives Verified 01/21/20 21:25 diltiazem [From Cardizem] AdvReac ADR/ALGY-Pa Verified 01/21/20 21:25 lpitations PFSH Acute PFSH: Medical History Diabetes Gout Hyperlipemia, mixed Hypertension Morbid (severe) obesity due to excess calories OPAL (obstructive sleep apnea) Pneumonia Surgical History History of adenoidectomy History of hernia repair History of tonsillectomy History of umbilical hernia repair Family History Mother Hypertension CAD (coronary artery disease) Stroke Social History Smoking and tobacco status: former smoker Second hand smoke exposure: Yes Alcohol intake: never Lives independently: Yes Household members: friend(s) Vitals/I&O/Wt Last Vital Signs Temp 98.7 F 01/21/20 20:33 Pulse 75 01/21/20 23:17 Resp 18 01/21/20 23:17 BP 132/67 01/21/20 23:17 Pulse Ox 99 01/21/20 23:17 Weight last 48 hrs Weight 135.171 kg Physical Exam Const: COMMON NORMALS: no acute distress and patient oriented x3 GENERAL APPEARANCE: cooperative and anxious NUTRITIONAL APPEARANCE: obese ORIENTATION/CONSCIOUSNESS: Yes awake HENMT: COMMON NORMALS: oropharynx normal Neck/C-Spine: COMMON NORMALS: no JVD OTHER: 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, 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 Resp: COMMON NORMALS: normal respiratory effort and clear to auscultation bilaterally AUSCULTATION: clear to auscultation bilaterally Cardio: COMMON NORMALS: no JVD, regular rhythm, S1 normal heart sound present, S2 normal heart sound present and No murmurs present (Cardio) RHYTHM: regular rhythm HEART SOUNDS: S1 normal heart sound present and S2 normal heart sound present GI: COMMON NORMALS: Normal to inspection, nondistended, normoactive bowel sounds present, Soft to palpation and non-tender PALPATION: Yes Soft to palpation Extremity: COMMON NORMALS: no joint enlargement GENERAL: Yes edema (Trace pedal edema) Neuro: COMMON NORMALS: patient oriented x3 and moves all extremities MENINGEAL SIGNS: Yes no meningeal signs COORDINATION/BALANCE: [id number] test normal SPEECH: speech normal GAIT: Yes Wide-based gait present SENSORY EXAM: Yes extremities (Symmetric. No neglect.) MOTOR EXAM: Other motor observations present (4+ throughout. No pronator drift.) OTHER: Chronic disconjugate gaze. Visual davis full to confrontation. Skin: COMMON NORMALS: no rashes or lesions noted GENERAL SKIN EXAM: no rashes or lesions noted Data : 01/21/20 21:58 01/21/20 21:58 A&P Assessment and plan (1) Vasogenic cerebral edema: Today with left side upper and lower weakness, numbness. The symptoms have almost entirely resolved. No seizure-like activity. On CT scan noted left parietal vasogenic edema with concern for underlying mass. No known cancer. He reports that he may have had a stroke back in November. Discussed findings with both him, as well as his niece who is also his power of contract attorney of healthcare. Discussed that concern is his focal neurologic symptoms may be secondary to vasogenic edema and mass-effect. Possible metastatic lesion, although not confirmed at this time. Given symptoms, noted edema, will start on Decadron at this time. Discussed with him and her that at this time we do not have backup from radiation oncology (1 will be starting in the hospital soon) or neurosurgery, in case there was insufficient response to steroids treatment, or other indication for assessment by radiation oncology or neurosurgery, may require transfer to another facility. He and POA at this time prefer to stay here and initiate treatment investigation. Discussed that we would need additional assessment by MRI of the brain. May also require graf CT depending on the findings. Status: Acute (2) Brain mass: Vasogenic edema noted with concern for underlying mass in left parietal area of the brain. This time initial evaluation with MRI of the brain. Treatment for the genic edema as above. Status: Acute (3) Focal neurological signs: With left-sided weakness, numbness. These appear to have resolved almost entirely in ER. Denies any seizure-like activity. Will monitor. Seizure precautions. Initiate treatment for vasogenic edema. Status: Acute (4) Diabetes: Monitor glucose, especially while on steroids. Status: Chronic Qualifiers: Diabetes mellitus type: type 2 Diabetes mellitus senior living insulin use: with long wall mining machine helper use Diabetes mellitus complication status: with circulatory complication (5) Hypertension: Monitor blood pressures. Continue beta-ced. Status: Chronic Qualifiers: Hypertension type: essential hypertension Qualified Code(s): I10 - Essential (primary) hypertension (6) Morbid (severe) obesity due to excess calories: Status: Acute (7) OPAL (obstructive sleep apnea): Reports he is in process of setting up for CPAP machine at home. Does not currently use 1. Status: Acute (8) Decubitus ulcer limited to breakdown of skin (stage 2): Chronic decubitus ulcers since prior to him. Status: Acute Qualifiers: Pressure injury location: buttock Attestations Medical Necessity Statement*: Admission of over 2 midnights is continued for assessment of management of allogenic edema, with concern for underlying mass, with focal neurologic symptoms in a gentleman with multiple other medical comorbidities. Coding Level of Care Code Acute [employer]or [employer] for [facility] Piyush Diagnoses Vasogenic cerebral edema G93.6 Brain mass G93.89 Focal neurological signs R29.818 Diabetes E11.9 Diabetes mellitus type: type 2 Diabetes mellitus long wall mining machine helper insulin use: with senior living use Diabetes mellitus complication status: with circulatory complication Hypertension I10 Hypertension type: essential hypertension Morbid (severe) obesity due to excess calories E66.01 OPAL (obstructive sleep apnea) G47.33 Decubitus ulcer limited to breakdown of skin (stage 2) L89.92 Pressure injury location: buttock
[2020-01-22] MEDS: dexamethasone 10 mg/mL INJ IVP (02:22)
--- NOTE | 2020-01-22 02:39 | PC.NURSE ---
Attempted to call floor for report they will call back in a few minutes for report.
[2020-01-22 02:54] LABS: Bilirubin Urine Neg (NEGATIVE); Blood Urine 2+ (Negative); Glucose Urine UA 4+ (Normal); Ketones Urine Negative (Negative); Leukocyte Esterase Urine Negative (Negative); Nitrate Urine Negative (Negative); Protein Urine Neg (Negative); Urine Appearance Clear (CLEAR); Urine Color Yellow (Yellow); Urobilinogen Urine 1 mg/dL (Negative); pH Urine 5 (5-7)
[2020-01-22 02:55] LABS: Add Urine Culture? Yes; Bacteria Urine 1+; RBC Urine 15-25 /hpf (0-2); Squamous Epithelial Cell Urine 0-4 (0-5)
--- NOTE | 2020-01-22 03:44 | ECG_ITS ---
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 Measurements Intervals [place] Rate: 91 P: 81 NV: 182 QRS: 74 QRSD: 104 T: 62 QT: 374 QTc: 461 Interpretive Statements SINUS RHYTHM INCOMPLETE RIGHT BUNDLE BRANCH BLOCK [90+ ms QRS DURATION, TERMINAL R IN V1/V2, 40+ ms S IN I/aVL/V4/V5/V6] Compared to ECG 01/21/2020 22:32:13 Incomplete right bundle-branch block now present Electronically Signed On 01-23-2020 1:34:50 CDT by Tay Mireles M.D. [id number]
--- NOTE | 2020-01-22 04:11 | MR_ITS ---
WS: [id number] MRI HEAD WITH CONTRAST TECHNIQUE: Sagittal T1, T2 axial, T2 axial FLAIR, axial susceptibility weighted imaging, axial diffus ion weighted images, and coronal T2 images were obtained. Pre and post-T1 axial and post T1 coronal i mages. ADC and FSPGR images. CLINICAL INFORMATION: Possible mass COMPARISON: CT January 21, 2020 FINDINGS: Images significantly degraded by motion Edema with partially restricted diffusion involving the left parietal lobe extending to the cortex. A massimo of edema measures 2.8 x 1.7 CCM. Associated serpiginous enhancement. Findings are suspicious for subacute infarct. Metastatic disease is less likely. Recommend interval follow-up. Additional focus of partially restricted diffusion right frontoparietal junction with extension into the right centrum semiovale with a tiny amount of enhancement consistent with acute to subacute ische jarret. No other foci of restricted diffusion. No hydrocephalus. No significant mass effect. Small amoun t of T1 hyperintense laminar necrosis associated with the 2 areas of suspected ischemia. Mild small vessel changes. Moderate parenchymal volume loss. Normal posterior fossa. Normal vascular flow voids at the skull base. No extra-axial fluid collections. Paranasal sinuses and mastoid air cecille ls are well aerated. Retention cyst left maxillary sinus. Mild stenosis at the cervicomedullary junct ion due to prominent pannus formation. MR/MR head wo/w con [id number] IMPRESSION: 1. Partially restricted effusion with edema and serpiginous enhancement involv ing the left parietal lobe extending to the cortex suspicious for subacute isch emia. Metastatic disease less likely. Recommend interval follow-up. 2. Partially restricted diffusion in the right posterior frontal lobe at the f rontoparietal junction extending to the cortex. This extends into the centrum s emiovale. Small amount of enhancement. This is also suspicious for acute to sub acute ischemia. 3. No other foci of restricted diffusion or intracranial enhancement Consideri ng significant patient motion artifact. 4. Normal optic chiasm and pituitary infundibulum. 5. No other significant findings.
[2020-01-22] MEDS: dexamethasone 4 mg/mL INJ IVP ×2 (05:54→12:10)
[2020-01-22] MEDS: enoxaparin 40 mg/0.4 mL Syringe SUBCUT (05:55)
[2020-01-22 07:17] LABS: Glucose Point of Care 186 mg/dL (70-110)
[2020-01-22] MEDS: atorvastatin 40 mg Tablet 80 MG PO (08:44)
[2020-01-22] MEDS: desvenlafaxine 50 mg Tablet PO (08:45)
[2020-01-22] MEDS: aspirin 81 mg EC Tablet PO (08:45)
[2020-01-22] MEDS: FUROsemide 40 mg Tablet PO (08:45)
[2020-01-22] MEDS: atenolol 50 mg Tablet 100 MG PO (08:45)
[2020-01-22] MEDS: pantoprazole DR 40 mg Tablet PO (08:45)
--- NOTE | 2020-01-22 10:00 | PC.NURSE ---
[facility] here to get patient to take for MRI, patient care turned over to EMS.
[2020-01-22] MEDS: LORazepam 2 mg/mL INJ 1 mL 0.5 MG IVP (10:16)
--- NOTE | 2020-01-22 11:28 | PC.CHAP ---
Pastoral Care Encounter/Spiritual Assessment Type of Contact [] Declined real estate professor visit [] Patient/Family/Request visit [] Outpatient visit [] Follow-up visit [] Physician referral [] Code/Alert [x] Routine visit [] Staff referral [] Actively dying [] Patient sleeping [] Family support [] [] Out of room [] Palliative care [] [] Receiving care in room [] Pre-surgical visit [] Trauma [] Long length of stay [] ICU visit [] Other: Relational/Emotional Strength x[] Patient feels connected with others/family/visitors/staff [] Distress [] Loneliness/isolation [] Abandonment Spirituality of Patient [x] Person of Yolanda [] Attends Mormon of their Yolanda [] Believes in Prayer [] Reads Bible or Baptism materials [x] There are Spiritual issues to be addressed Soda Dialyzer Interventions [x] Prayer [x] Active listening [x] Non-anxious presence [x] Spiritual/emotional support [] Crisis/trauma care [] Spiritual counseling [] Bereavement support [] Provided bereavement packet [] Provided Bible/devotional materials [] Provided toy/stuffed animal, coloring book to patient or family member [] Provided Communion [] Anointing/[place] [] Salvation [x] Completed spiritual assessment [] Other: Impact on Illness or Injury [] Angry [] Fearful [] Anxious [] Often cries [] Exhaustion [] Unable to work [] Unable to attend jewish [] Unable to walk/stand [] Unable to read [] Unable to drive [] Unable to eat/drink [] Unable to sleep [] Unable to be with family [] Patient intubated [x] Other: Summary Patient professed his yolanda in [facility]. Spiritual counseling provided as well as prayer. Time spent with patient 25 minutes
[2020-01-22 12:16] LABS: Glucose Point of Care 255 mg/dL (70-110)
--- NOTE | 2020-01-22 12:39 | P.PN_ITS ---
Subjective Subjective: Interval history: Chart reviewed, VSS, afebrile. MRI today. On IV steroids. Patient seen and examined following return from MRI, niece at bedside during visiting hours, patient reports feeling well and would like to go home. Discussed MRI findings and need for appropriate follow-up. Patient reports that previously noted left upper extremity and left lower extremity paresthesia and weakness has essentially resolved. He has been able to get up and ambulate to and from the bathroom with minimal difficulty, is at his baseline oxygen requirement of 3 L nasal cannula. Discussed need for follow-up with neurology, will continue oral steroids and he will need follow-up imaging. Discussed addition of Plavix. Medications: Reviewed: Yes Medication Review Details: Active Medications Generic Name Dose Route Start Last Admin Trade Name Freq PRN Reason Stop Dose Admin Aspirin 81 mg 01/22/20 09:00 01/22/20 08:45 Aspirin Ec PO 81 mg DAILY NESSA Administration Atenolol 100 mg 01/22/20 09:00 01/22/20 08:45 Tenormin PO 100 mg DAILY NESSA Administration Atorvastatin Calci um 80 mg 01/22/20 09:00 01/22/20 08:44 Lipitor PO 80 mg DAILY NESSA Administration Desvenlafaxine 50 mg 01/22/20 09:00 01/22/20 08:45 Pristiq PO 50 mg DAILY NESSA Administration Dexamethasone 4 mg 01/22/20 06:00 01/22/20 12:10 Decadron IVP 4 mg Q6H NESSA Administration Dextrose 25 ml 01/22/20 04:11 D50w IVP ONCE PRN hypoglycemia prot ocol Protocol Dextrose 50 ml 01/22/20 04:11 D50w IVP PRN PRN hypoglycemia prot ocol Protocol Enoxaparin Sodium 40 mg 01/22/20 06:00 01/22/20 05:55 Lovenox SUBCUT 40 mg Q24H NESSA Administration Furosemide 40 mg 01/22/20 09:00 01/22/20 08:45 Lasix PO 40 mg DAILY NESSA Administration Glucagon 1 mg 01/22/20 04:11 Glucagen IM ONCE PRN Adult Acute Hypog lycemia Prot. Protocol Dextrose 500 mls @ 100 mls /hr 01/22/20 04:11 D5w IV ONCE PRN Adult Acute Hypog lycemia Prot Protocol Ibuprofen 400 mg 01/22/20 04:11 Motrin PO Q6H PRN Mild/Mod Pain Or Temp >/= 101 Insulin Aspart 0 unit 01/22/20 08:00 01/22/20 12:09 Novolog SUBCUT 8 unit WM&BEDTIME NESSA Administration Protocol Lorazepam 0.5 mg 01/22/20 04:11 01/22/20 10:16 Ativan IVP 0.5 mg Q4H PRN Administration ANXIETY Montelukast Sodium 10 mg 01/22/20 21:00 Singulair PO BEDTIME NESSA Morphine Sulfate 4 mg 01/22/20 04:11 Morphine IVP Q4H PRN SEVERE PAIN Ondansetron HCl 4 mg 01/22/20 04:11 Zofran IVP Q6H PRN NAUSEA AND VOMITI NG Ondansetron HCl 4 mg 01/22/20 04:11 Zofran PO Q8H PRN NAUSEA Pantoprazole Sodiu m 40 mg 01/22/20 09:00 01/22/20 08:45 Protonix PO 40 mg DAILY NESSA Administration Penicillins Allergy (Verified 01/21/20 21:25) ALGY-Hives diltiazem [From Cardizem] Adverse Reaction (Verified 01/21/20 21:25) ADR/ALGY-Palpitations Vitals/I&O/Wt Last Vital Signs Temp 97.8 F 01/22/20 07:42 Pulse 98 01/22/20 07:42 Resp 22 H 01/22/20 07:42 BP 148/78 01/22/20 07:42 Pulse Ox 92 01/22/20 07:42 01/21/20 01/22/20 01/22/20 22:59 06:59 14:59 Intake Total 0 / 0 600 / 600 Balance 0 / 0 600 / 600 Weight last 48 hrs Weight 130.209 kg Weight 135.171 kg Physical Exam Const: COMMON NORMALS: no acute distress, patient oriented x3 and alert GENERAL APPEARANCE: cooperative and comfortable NUTRITIONAL APPEARANCE: obese morbidly obese ORIENTATION/CONSCIOUSNESS: Yes awake HENMT: COMMON NORMALS: normocephalic, atraumatic, hearing grossly normal bilaterally and moist oral mucous membranes HEAD & SCALP: normocephalic and atraumatic Eye: COMMON NORMALS: Equal, round and reactive pupils present, EOMs intact bilaterally and conjunctivae normal ALIGNMENT: Yes other (strabismus of R eye) CONJUNCTIVA: Yes conjunctivae normal PUPIL: Yes Equal, round and reactive pupils present Neck/C-Spine: COMMON NORMALS: full ROM GENERAL: Yes normal visual inspection and Yes trachea midline OTHER: -short, thick neck Resp: COMMON NORMALS: normal respiratory effort, No retractions, No use of accessory muscles and clear to auscultation bilaterally EFFORT & INSPECTION: Yes able to speak in complete sentences, Yes symmetric chest movement and No tachypneic AUSCULTATION: clear to auscultation bilaterally OTHER: -on 3 L NC Cardio: COMMON NORMALS: regular rate, regular rhythm, S1 normal heart sound present, S2 normal heart sound present and No murmurs present (Cardio) RATE: regular rate RHYTHM: regular rhythm HEART SOUNDS: S1 normal heart sound present and S2 normal heart sound present GI: COMMON NORMALS: Normal to inspection, nondistended, normoactive bowel sounds present, Soft to palpation and non-tender INSPECTION: Yes central obesity PALPATION: Yes Soft to palpation Extremity: COMMON NORMALS: normal to inspection, full ROM and no clubbing, cyanosis or edema; negative for no pedal edema Neuro: COMMON NORMALS: patient oriented x3, moves all extremities, no focal motor deficits, no sensory deficits noted and gait normal SENSORIUM/ORIENTATION: Yes alert Psych: COMMON NORMALS: mental status grossly normal, Normal thought process present, cooperative, normal affect and speech normal SPEECH: Yes normal speech THOUGHT PROCESS: Normal thought process present Skin: COMMON NORMALS: no rashes or lesions noted, no jaundice, no petechiae and no mottling GENERAL SKIN EXAM: no rashes or lesions noted Data : 01/21/20 21:58 01/21/20 21:58 A&P Assessment and plan (1) Vasogenic cerebral edema: -noted on CT head -presented with c/o LUE and LLE paresthesia and weakness; resolving -hx of recent CVA in 11/2019 with evidence of encephalomalacia involving R f rontal lobe which is new per imaging report -due to need to evaluate for possible mass, MRI today -fall, seizure precautions -IV steroids -neuro checks Status: Acute (2) Brain mass: -as noted above Status: Acute (3) Focal neurological signs: -as noted above Status: Acute (4) Decubitus ulcer limited to breakdown of skin (stage 2): -frequent repositioning, wound care as needed Status: Chronic Qualifiers: Laterality: unspecified laterality Pressure injury location: buttock Qualified Code(s): L89.302 - Pressure ulcer of unspecified buttock, stage 2 (5) Anemia: -has chronic iron deficiency anemia, baseline Hg is around 9-10 -continue to monitor H/H -was previously on iron supplementation Status: Chronic Qualifiers: Anemia type: iron deficiency Iron deficiency anemia type: unspecified iron deficiency Qualified Code(s): D50.9 - Iron deficiency anemia, unspecified (6) CHF (congestive heart failure): -Echo (07/2019): EF=68%, normal diastolic function, no RWMA -on oral lasix -no acute exacerbation currently Status: Chronic Qualifiers: Heart failure chronicity: chronic Heart failure type: diastolic Qualified Code(s): I50.32 - Chronic diastolic (congestive) heart failure (7) Hypertension: -VSS; continue to monitor -continue oral antihypertensives Status: Chronic Qualifiers: Hypertension type: essential hypertension Qualified Code(s): I10 - Essential (primary) hypertension (8) Diabetes: -NIDDM type II -A1c (11/2019): 8.2 -Accuchecks, ISS, hypoglycemia precautions -consistent carb diet -anticipate hyperglycemia with steroid use Status: Chronic Qualifiers: Diabetes mellitus complication status: with other specified complication Diabetes mellitus intermediate project manager insulin use: without intermediate project manager use Diabetes mellitus type: type 2 Qualified Code(s): E11.69 - Type 2 diabetes mellitus with other specified complication (9) OPAL (obstructive sleep apnea): -in the process of getting CPAP set up Status: Chronic (10) Morbid (severe) obesity due to excess calories: -BMI-54 kg/m2 Status: Chronic Additional A&P Information -Dyslipidemia; on statin -GERD: on PPI -Gout -recent hx of respiratory failure, required intubation, developed ARDS and multi -organ failure -DVT ppx with Lovenox -GI ppx with PPI -Dispo: home, niece is primary caregiver and DPOA -Code status: FULL code Attestations Medical Necessity Statement*: Patient requires hospitalization for continued workup of noted vasogenic edema with possible underlying mass, on IV steroids. Time Spent in Patient Care: Greater than 35 minutes (>than 50% of time spent in counselling and/or direct pt care on unit) . Coding Level of Care Code Acute Relaster for Ch[facility] Fwd Exam Comprehensive Diagnoses Vasogenic cerebral edema G93.6 Brain mass G93.89 Focal neurological signs R29.818 Decubitus ulcer limited to breakdown of skin (stage 2) L89.302 Laterality: unspecified laterality Pressure injury location: buttock Anemia D50.9 Anemia type: iron deficiency Iron deficiency anemia type: unspecified iron deficiency CHF (congestive heart failure) I50.32 Heart failure chronicity: chronic Heart failure type: diastolic Hypertension I10 Hypertension type: essential hypertension Diabetes E11.69 Diabetes mellitus complication status: with other specified complication Diabetes mellitus intermediate project manager insulin use: without fdc use Diabetes mellitus type: type 2 OPAL (obstructive sleep apnea) G47.33 Morbid (severe) obesity due to excess calories E66.01
[2020-01-22 15:50] LABS: Troponin T (5th) Once 37 ng/L (0-15)
--- NOTE | 2020-01-22 17:05 | P.DS_ITS ---
Discharge Providers Date of Admission: 01/22/20 01:19 Date of Discharge: January 22, 2020 Attending Provider at Admission: Omar Hickey Attending Provider at Discharge: Chel Bhat MD Primary Care Provider: Stewart Rosario MD Diagnoses at Discharge Discharge Diagnosis (1) Vasogenic cerebral edema: Status: Acute Problem details: -noted on CT head -presented with c/o LUE and LLE paresthesia and weakness; resolving -hx of recent CVA in 11/2019 with evidence of encephalomalacia involving R frontal lobe which is new per imaging report -due to need to evaluate for possible mass, MRI today indicating findings are more consistent with acute to subacute ischemia -fall, seizure precautions -IV steroids; will d/c on Medrol Dosepak -neuro checks -Already on ASA, high-dose statin; will start on Plavix (2) Brain mass: Status: Acute Problem details: -Findings on MRI are more consistent with acute to subacute ischemia rather than better static lesion. He will likely require follow-up imaging (3) Focal neurological signs: Status: Resolved (4) Decubitus ulcer limited to breakdown of skin (stage 2): Status: Chronic Qualifiers: Laterality: unspecified laterality Pressure injury location: buttock Qualified Code(s): L89.302 - Pressure ulcer of unspecified buttock, stage 2 (5) Anemia: Status: Chronic Problem details: -has chronic iron deficiency anemia, baseline Hg is around 9-10 -stable H/H -was previously on iron supplementation Qualifiers: Anemia type: iron deficiency Iron deficiency anemia type: unspecified iron deficiency Qualified Code(s): D50.9 - Iron deficiency anemia, unspecified (6) CHF (congestive heart failure): Status: Chronic Problem details: -Echo (07/2019): EF=68%, normal diastolic function, no RWMA -on oral lasix -no acute exacerbation currently Qualifiers: Heart failure chronicity: chronic Heart failure type: diastolic Qualified Code(s): I50.32 - Chronic diastolic (congestive) heart failure (7) Hypertension: Status: Chronic Problem details: -VSS; continue to monitor -continue oral antihypertensives Qualifiers: Hypertension type: essential hypertension Qualified Code(s): I10 - Essential (primary) hypertension (8) Diabetes: Status: Chronic Problem details: -NIDDM type II -A1c (11/2019): 8.2 -Accuchecks, ISS, hypoglycemia precautions -consistent carb diet -anticipate hyperglycemia with steroid use Qualifiers: Diabetes mellitus type: type 2 Diabetes mellitus senior care insulin use: without meterman use Diabetes mellitus complication status: with other specified complication Qualified Code(s): E11.69 - Type 2 diabetes mellitus with other specified complication (9) OPAL (obstructive sleep apnea): Status: Chronic Problem details: -in the process of getting CPAP set up (10) Morbid (severe) obesity due to excess calories: Status: Chronic Other Information Additional DC diagnoses/information: -Dyslipidemia; on statin -GERD: on PPI -Gout -recent hx of respiratory failure, required intubation, developed ARDS and multi-organ failure Reason for Visit Reason for Visit: neuro symptoms Hospital Course Hospital Course: Patient was admitted to the medical surgical floor and placed on telemetry monitoring. He was found to have ill-defined hypodensity in the left parietal lobe suspicious for possible metastatic lesion with surrounding vasogenic edema requiring further evaluation. Given his presenting symptoms of left-sided paresthesia and weakness, history of previous stroke he required further work-up. Due to concern for cerebral edema he was started on IV steroids. MRI was done this morning with report indicating left parietal lobe findings suspicious for subacute ischemia rather than metastatic disease with noted changes in the right posterior frontal lobe also suspicious for acute to subacute ischemia. Patient's neurological symptoms have resolved and he feels that he is close to his baseline. He does relate a recent history of emotional outbursts which he cannot seem to predict or control and is collaborated by niece at bedside; this is likely related to frontal lobe stroke. I encouraged him to follow up on this concerns with his primary care provider. He is already on aspirin and high-dose statin but due to second episode of CVA I will add Plavix. He will also continue oral steroids and is to follow-up with neurology and may need follow-up imaging as well. He is counseled on need to seek medical attention immediately should he develop any neurological symptoms including weakness, facial droop, decreased sensation, syncope, difficulty swallowing. He has been maintained on his baseline oxygen requirement of 3 L nasal cannula. He is to continue to ambulate with a walker. His niece will continue to be his primary caregiver. He is already scheduled to follow-up with Dr. Rosario on Sunday and is advised to keep his appointment. Discharge Summary: -Patient to follow-up with Dr. Rosario on Sunday -Patient to follow-up with Dr. Osorio as soon as next available appointment Physical Exam Const: COMMON NORMALS: no acute distress, patient oriented x3 and alert GENERAL APPEARANCE: cooperative and comfortable NUTRITIONAL APPEARANCE: obese morbidly obese ORIENTATION/CONSCIOUSNESS: Yes awake HENMT: COMMON NORMALS: normocephalic, atraumatic, hearing grossly normal bilaterally and moist oral mucous membranes HEAD & SCALP: normocephalic and atraumatic Eye: COMMON NORMALS: Equal, round and reactive pupils present, EOMs intact bilaterally and conjunctivae normal ALIGNMENT: Yes other (strabismus of R eye) CONJUNCTIVA: Yes conjunctivae normal PUPIL: Yes Equal, round and reactive pupils present Neck/C-Spine: COMMON NORMALS: full ROM GENERAL: Yes normal visual inspection and Yes trachea midline OTHER: -short, thick neck Resp: COMMON NORMALS: normal respiratory effort, No retractions, No use of accessory muscles and clear to auscultation bilaterally EFFORT & INSPECTION: Yes able to speak in complete sentences, Yes symmetric chest movement and No tachypneic AUSCULTATION: clear to auscultation bilaterally OTHER: -on 3 L NC Cardio: COMMON NORMALS: regular rate, regular rhythm, S1 normal heart sound present, S2 normal heart sound present and No murmurs present (Cardio) RATE: regular rate RHYTHM: regular rhythm HEART SOUNDS: S1 normal heart sound present and S2 normal heart sound present GI: COMMON NORMALS: Normal to inspection, nondistended, normoactive bowel sounds present, Soft to palpation and non-tender INSPECTION: Yes central obesity PALPATION: Yes Soft to palpation Extremity: COMMON NORMALS: normal to inspection, full ROM and no clubbing, cyanosis or edema; negative for no pedal edema Neuro: COMMON NORMALS: patient oriented x3, moves all extremities, no focal motor deficits, no sensory deficits noted and gait normal SENSORIU M/ORIENTATION: Yes alert Psych: COMMON NORMALS: mental status grossly normal, Normal thought process present, cooperative, normal affect and speech normal SPEECH: Yes normal speech THOUGHT PROCESS: Normal thought process present Skin: COMMON NORMALS: no rashes or lesions noted, no jaundice, no petechiae and no mottling GENERAL SKIN EXAM: no rashes or lesions noted Discharge Data Data Completed and Pending: Completed Studies During Hospitalization Category Date Time Status CT head wo con* [id number] Stat Cat Scan 01/21/20 21:44 Completed XR chest 1V camila ble [id number] Stat Exams 01/21/20 21:43 Completed MR head wo/w con [id number] Urgent MRI 01/22/20 04:11 Completed Pending at discharge Category Date Time Status Basic Metabolic P nik AM LABS Lab 01/23/20 04:00 Ordered Complete Blood Co unt w/Auto AM LABS Lab 01/23/20 04:00 Ordered Urine Culture Sta t Lab 01/22/20 01:35 Received Labs from last 24 hours 01/22/20 01/22/20 01/22/20 14:47 12:01 07:13 WBC RBC Hgb Hct MCV MCH MCHC RDW Plt Count MPV Neut % (Auto) Lymph % (Auto) Bond % (Auto) Eos % (Auto) Baso % (Auto) Neut # (Auto) Lymph # (Auto) Bond # (Auto) Eos # (Auto) Baso # (Auto) Nucleated RBC % (a uto) Nucleated RBCs # Sodium Potassium Chloride Carbon Dioxide Anion Gap BUN Creatinine GFR Calculation Glucose POC Glucose 255 186 Calculated Osmolal ity Calcium Magnesium Total Bilirubin AST ALT Alkaline Phosphata se Troponin T Gen 5 n g/L 37 H Troponin T Baselin e Troponin T 120 Min [place] Troponin T Total Protein Albumin Globulin Urine Color Urine Appearance Urine pH Ur Specific Gravit y Urine Protein Urine Glucose (UA) Urine Ketones Urine Blood Urine Nitrate Urine Bilirubin Urine Urobilinogen Ur Leukocyte Maggie ase Urine RBC Urine WBC Ur Squamous Epith Cells Urine Bacteria Ethyl Alcohol 01/22/20 01/21/20 01/21/20 01:35 22:55 21:58 WBC RBC Hgb Hct MCV MCH MCHC RDW Plt Count MPV Neut % (Auto) Lymph % (Auto) Bond % (Auto) Eos % (Auto) Baso % (Auto) Neut # (Auto) Lymph # (Auto) Bond # (Auto) Eos # (Auto) Baso # (Auto) Nucleated RBC % (a uto) Nucleated RBCs # Sodium Potassium Chloride Carbon Dioxide Anion Gap BUN Creatinine GFR Calculation Glucose POC Glucose Calculated Osmolal ity Calcium Magnesium Total Bilirubin AST ALT Alkaline Phosphata se Troponin T Gen 5 n g/L Troponin T Baselin e 54 H Troponin T 120 Min [place] 52.12 H Delta Troponin T -1.88 L Total Protein Albumin Globulin Urine Color Yellow Urine Appearance Clear Urine pH 5 Ur Specific Gravit y 1.020 Urine Protein Neg Urine Glucose (UA) 4+ H Urine Ketones Negative Urine Blood 2+ H Urine Nitrate Negative Urine Bilirubin Neg Urine Urobilinogen 1 H Ur Leukocyte Maggie ase Negative Urine RBC 15-25 H Urine WBC 5-10 H Ur Squamous Epith Cells 0-4 H Urine Bacteria 1+ H Ethyl Alcohol 01/21/20 01/21/20 21:58 21:58 WBC 6.5 RBC 4.12 Hgb 9.7 L Hct 34.7 L MCV 84.2 MCH 23.5 L MCHC 28.0 L RDW 18.4 H Plt Count 358 MPV 9.0 Neut % (Auto) 67.1 Lymph % (Auto) 23.2 Bond % (Auto) 7.7 Eos % (Auto) 1.2 Baso % (Auto) 0.5 Neut # (Auto) 4.37 Lymph # (Auto) 1.5 Bond # (Auto) 0.5 Eos # (Auto) 0.1 Baso # (Auto) 0.0 Nucleated RBC % (a uto) 0 Nucleated RBCs # 0.0 Sodium 137 Potassium 3.6 Chloride 99 Carbon Dioxide 29 Anion Gap 12.6 BUN 11 Creatinine 0.8 GFR Calculation 103.6 Glucose 99 POC Glucose Calculated Osmolal ity 280 L Calcium 9.0 Magnesium 1.6 L Total Bilirubin 0.6 AST 32 ALT 22 Alkaline Phosphata se 315 H Troponin T Gen 5 n g/L Troponin T Baselin e Troponin T 120 Min [place] Troponin T Total Protein 6.8 Albumin 3.4 L Globulin 3.4 Urine Color Urine Appearance Urine pH Ur Specific Gravit y Urine Protein Urine Glucose (UA) Urine Ketones Urine Blood Urine Nitrate Urine Bilirubin Urine Urobilinogen Ur Leukocyte Maggie ase Urine RBC Urine WBC Ur Squamous Epith Cells Urine Bacteria Ethyl Alcohol < 10 Vitals: Last Vital Signs Temp 98.4 F 01/22/20 15:26 Pulse 79 01/22/20 15:50 Resp 20 H 01/22/20 15:26 BP 133/76 01/22/20 15:26 Pulse Ox 99 01/22/20 15:51 Discharge Plan Discharge Patient Disposition: Home, Self-Care Condition: Stable Prescriptions: New clopidogrel [Plavix] 75 mg tablet 75 mg PO DAILY 30 Days Qty: 30 RF: 0 methylprednisolone [Medrol (Hitesh)] 4 mg tablets,dose pack See Rx Instructions .ROUTE .COMPLEX Qty: 21 RF: 0 Continued atorvastatin [Lipitor] 80 mg Tablet 80 mg PO DAILY RF: 0 atenolol 100 mg Tablet 100 mg PO DAILY RF: 0 omeprazole 40 mg Capsule,Delayed Release(Dr/Ec) 40 mg PO DAILY RF: 0 aspirin [Aspir-81] 81 mg Tablet,Delayed Release (Dr/Ec) 81 mg PO DAILY RF: 0 montelukast [Singulair] 10 mg Tablet 10 mg PO BEDTIME RF: 0 allopurinol 300 mg Tablet 600 mg PO DAILY RF: 0 metformin 500 mg Tablet Extended Release 24 Hr 500 mg PO BID RF: 0 furosemide 40 mg tablet 40 mg PO DAILY RF: 0 glipizide 10 mg Tablet Extended Release 24hr 10 mg PO BID RF: 0 sulfamethoxazole-trimethoprim 800-160 mg tablet 1 tab PO BID RF: 0 desvenlafaxine succinate 50 mg Tablet Extended Release 24 Hr 50 mg PO DAILY RF: 0 Janumet XR 50-1,000 mg tablet, ER multiphase 24 hr 1 tab PO BID RF: 0 Discharge Orders: Discharge Order (Routine); Ordered 01/22/20 Ordered By: Chel Bhat Referrals: Katherine Osorio MD [Physician] - 1 month (Post-CVA follow up) Stewart Rosario MD [Primary Care Provider] - 01/26/20 (Patient already has scheduled appointment for Sunday01/26/2020) Discharge Diet: Cardiac and Diabetic Discharge Activity: Increase activity as tolerated, Use walker/crutches as instructed and Oxygen as instructed Discharge Attestations Time Spent in Discharge Care*: greater than 30 min Specific Discharge Activities: Specific discharge activities: educating patient, educating and/or supporting family/caregiver (niece at bedside), discussing with patient case coordinator/social workers/dc planners, documenting/other paperwork and evaluating patient/reviewing data Status at Discharge: Cognitive status at discharge: cognitively intact , Behavioral status at discharge: cooperative , Functional status at discharge: uses cane/walker Overall status at discharge: patient is progressing back to baseline Quality Metrics Clinical Quality Measures During this hospital stay, did patient experience: None Coding Level of Care Code Acute Manager Therapy for Zac Pickett Diagnoses Vasogenic cerebral edema G93.6 Brain mass G93.89 Focal neurological signs R29.818 Decubitus ulcer limited to breakdown of skin (stage 2) L89.302 Laterality: unspecified laterality Pressure injury location: buttock Anemia D50.9 Anemia type: iron deficiency Iron deficiency anemia type: unspecified iron deficiency CHF (congestive heart failure) I50.32 Heart failure chronicity: chronic Heart failure type: diastolic Hypertension I10 Hypertension type: essential hypertension Diabetes E11.69 Diabetes mellitus type: type 2 Diabetes mellitus senior care insulin use: without meterman use Diabetes mellitus complication status: with other specified complication OPAL (obstructive sleep apnea) G47.33 Morbid (severe) obesity due to excess calories E66.01
== END 2020-01-22 18:10 | disposition short-term general hospital (02) | DRG 81 ==
LOC: ER 01-22 02:10 → MEDSURG 01-22 05:52
PROVIDERS: Emergency Medicine; Admitting Provider Internal Medicine; PCP Family Medicine; Visit Provider Family Medicine
DX: G93.6 Cerebral edema (principal); Z68.43 Body mass index [BMI] 50.0-59.9, adult; I50.32 Chronic diastolic (congestive) heart failure; L89.92 Pressure ulcer of unspecified site, stage 2; E66.01 Morbid (severe) obesity due to excess calories; E11.9 Type 2 diabetes mellitus without complications; G93.89 Other specified disorders of brain; D64.9 Anemia, unspecified; I11.0 Hypertensive heart disease with heart failure; K21.9 Gastro-esophageal reflux disease without esophagitis; M10.9 Gout, unspecified; E78.5 Hyperlipidemia, unspecified; Z79.82 Long term (current) use of aspirin; Z79.84 Long term (current) use of oral hypoglycemic drugs; G47.33 Obstructive sleep apnea (adult) (pediatric); Z87.891 Personal history of nicotine dependence
CPT/HCPCS: 12345; 36415; 36416; 70450; 70553; 71045; 80053; 80307; 81001; 82962; 83735; 84484; 85025; 87086; 93005; 94664; 96372; 96375; 99283; 99285; A9579; J1100; J1650; J1815; J2060

== ENCOUNTER 2020-01-25 22:50 | Emergency (ER) | payer MEDICAID, SELFPAY ==
[2020-01-25 22:54] VITALS: BP 161/78; PULSE 77; RESP 18; TEMP 36.6; O2SAT 100; BMI 55.9
--- NOTE | 2020-01-25 22:57 | CTR_ITS ---
PROCEDURE INFORMATION: Exam: CT Head Without Contrast Exam date and time: 01/25/2020 10:59 PM Age: 49 years old Clinical indication: Malaise or fatigue; Additional info: CVA TECHNIQUE: Imaging protocol: Computed tomography of the head without contrast. Radiation optimization: All CT scans at this facility use at least one of these dose optimization techniques: automated exposure control; mA and/or kV adjustment per patient size (includes targeted exams where dose is matched to clinical indication); or iterative reconstruction. COMPARISON: CT head wo con* [id number] 01/21/2020 10:06 PM RADIATION DOSE METRICS: Total DLP (mGy-cm): 869.3 FINDINGS: Brain: No acute intracranial hemorrhage or mass effect. Old infarcts again seen in the left posterior parietal/occipital region, and high right frontal/parietal region, not significantly changed. Possibly these could represent subacute areas of infarct. Please correlate clinically. No definite acute infarct by CT. MRI could be more sensitive/specific for detection, and also for distinguishing between old and subacute infarcts, as clinically directed. Ventricles: Ventricle size is normal for age. Bones/joints: No definite acute skull fracture. Sinuses: Included paranasal sinuses are essentially clear. Mastoid air cells: No significant acute finding. Vasculature: Vascular calcifications in the internal carotid arteries. CT/CT head wo con* [id number] IMPRESSION: 1. No acute intracranial hemorrhage or mass effect. 2. Old/prior infarcts, details above. 3. No definite acute infarct by CT, see above. 4. Other findings discussed above. Radiation Dose CTDIVOL = (mGy): DLP = 869.3 (mGy-cm)
--- NOTE | 2020-01-25 22:57 | XR_ITS ---
WS: [id number] PORTABLE CHEST HISTORY: cp COMPARISON: 01/21/2020 Mildly coarsened interstitial markings are probably related to chronic lung disease or smoking. No pn eumonia. Slight elevation of the RIGHT hemidiaphragm is stable. No pleural effusion or pneumothorax. Cardiac size: Normal. Mediastinum/Aorta: Normal mediastinum. No osseous abnormality seen. XR/XR chest 1V portable [id number] IMPRESSION: Mild chronic interstitial lung disease is stable. No pneumonia.
--- NOTE | 2020-01-25 22:58 | ECG_ITS ---
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 Measurements Intervals [place] Rate: 68 P: 74 NC: 158 QRS: 52 QRSD: 109 T: 63 QT: 406 QTc: 434 Interpretive Statements SINUS RHYTHM INCOMPLETE RIGHT BUNDLE BRANCH BLOCK [90+ ms QRS DURATION, TERMINAL R IN V1/V2, 40+ ms S IN I/aVL/V4/V5/V6] Compared to ECG 01/22/2020 06:42:15 No significant changes Electronically Signed On 01-27-2020 16:23:12 CDT by Armand Bunch M.D. [id number] [email or web address]
--- NOTE | 2020-01-25 23:01 | W.ED.WEAKNES ---
HPI - Weakness General: Chief complaint: Weakness Stated complaint: WEAKNESS Time Seen by Provider: 01/25/20 22:55 Source: patient and EMS Mode of arrival: EMS Limitations: no limitations History of Present Illness: HPI Narrative: 49-year-old male that states earlier today roughly an hour ago started having some pain in his left leg and had numbness that lasted a few minutes. Symptoms of completely resolved. He states he was concerned as he had a stroke roughly a couple weeks ago. Patient discussed the hospital 3 days ago. He denies any fever. Denies any headache. Denies any worsening improving factors. Associated symptoms: Denies chest pain, chills, dysuria, easy bruising, fever(s), headache(s), nausea or vomiting Review of Systems Const: Denies: fever(s), chills, body aches or change in appetite Eyes: Denies: blurry vision or eye discomfort ENMT: Denies: throat pain or dental pain Card: Denies: chest pain Resp: Denies: dyspnea GI: Denies: abdominal pain, nausea, vomiting or diarrhea : Denies: dysuria Musc: Reports: muscle weakness Skin/Breast: Denies: rash Neuro: Denies: headache(s) Psych: Denies: depression Mendel/Lymph: Denies: easy bruising All/Imm: Denies: urticaria PFSH ED PFSH: Medical History Anemia -has chronic iron deficiency anemia, baseline Hg is around 9-10 -stable H/H -was previously on iron supplementation CHF (congestive heart failure) -Echo (07/2019): EF=68%, normal diastolic function, no RWMA -on oral lasix -no acute exacerbation currently Decubitus ulcer limited to breakdown of skin (stage 2) Diabetes -NIDDM type II -A1c (11/2019): 8.2 -Accuchecks, ISS, hypoglycemia precautions -consistent carb diet -anticipate hyperglycemia with steroid use Gout Hyperlipemia, mixed Hypertension -VSS; continue to monitor -continue oral antihypertensives Morbid (severe) obesity due to excess calories OPAL (obstructive sleep apnea) -in the process of getting CPAP set up Pneumonia Transient cerebral ischemia Surgical History History of adenoidectomy History of hernia repair History of tonsillectomy History of umbilical hernia repair Family History Mother Hypertension CAD (coronary artery disease) Stroke Social History Smoking and tobacco status: former smoker Second hand smoke exposure: Yes Alcohol intake: never Lives independently: Yes Household members: friend(s) Physical Exam Const: COMMON NORMALS: no acute distress, patient oriented x3 and healthy appearing HENMT: COMMON NORMALS: normocephalic and atraumatic HEAD & SCALP: normocephalic and atraumatic Eye: COMMON NORMALS: Equal, round and reactive pupils present and EOMs intact bilaterally PUPIL: Yes Equal, round and reactive pupils present Neck/C-Spine: COMMON NORMALS: full ROM and supple Chest: COMMONS NORMALS: normal inspection of the chest and normal palpation of entire chest wall Resp: COMMON NORMALS: normal respiratory effort, No retractions, No use of accessory muscles and clear to auscultation bilaterally AUSCULTATION: clear to auscultation bilaterally Cardio: COMMON NORMALS: regular rate, regular rhythm and No murmurs present (Cardio) RATE: regular rate RHYTHM: regular rhythm GI: COMMON NORMALS: Normal to inspection, nondistended, normoactive bowel sounds present, Soft to palpation, non-tender and no masses PALPATION: Yes Soft to palpation Extremity: COMMON NORMALS: normal to inspection and full ROM Neuro: COMMON NORMALS: patient oriented x3, moves all extremities and no focal motor deficits Psych: COMMON NORMALS: mental status grossly normal, Normal thought process present and cooperative THOUGHT PROCESS: Normal thought process present Skin: COMMON NORMALS: no rashes or lesions noted and no wounds GENERAL SKIN EXAM: no rashes or lesions noted Course Vital Signs: Vital signs: Vital Signs Temperature 97.9 F 01/25/20 22:54 Pulse Rate 70 01/25/20 23:40 Respiratory Rate 16 01/25/20 23:40 Blood Pressure 157/83 01/25/20 23:40 Pulse Oximetry 100 01/25/20 23:40 MDM - Weakness MDM Narrative: Medical decision making narrative: Right presents here with paresthesias along with weakness that lasted a few minutes and resolved. Patient's head CT here shows no acute findings. He has no signs of an acute stroke. Patient is able ambulate and has no focal deficits. He is stable for discharge and is to follow-up with his primary care doctor 2 to 4 days and return to the ER if worsening. He understands and agrees to this plan. Lab Data: Labs: Lab Results 01/25/20 01/25/20 01/25/20 Range/Units 23:00 23:00 23:00 WBC 6.5 (4.0-10.0) 10^3/ uL RBC 4.18 (4.1-5.3) 10^6/u L Hgb 10.3 L (11.7-16.6) g/dL Hct 35.9 L (42.0-52.0) % MCV 85.9 (80-94) fL MCH 24.6 L (28.0-34.0) pg MCHC 28.7 L (30.0-36.0) g/dL RDW 18.4 H (12.1-15.1) % Plt Count 310 (130-400) 10^3/c mm MPV 9.9 (7.4-10.4) fL Neut % (Auto) 72.2 % Lymph % (Auto) 19.8 % [place] % (Auto) 7.1 % Eos % (Auto) 0.2 % Baso % (Auto) 0.2 % Neut # (Auto) 4.71 (1.8-7.7) 10^3/u L Lymph # (Auto) 1.3 (0.8-4.8) 10^3/u L [place] # (Auto) 0.5 (0.2-0.9) 10^3/u L Eos # (Auto) 0.0 (0.0-0.8) 10^3/u L Baso # (Auto) 0.0 (0.0-0.1) 10^3/u L Nucleated RBC % (a uto) 0 % Nucleated RBCs # 0.0 /100WBC PT 13.50 H (10.5-13.3) SECO NDS INR 1.00 (0.8-1.2) Sodium 139 (136-145) mmol/L Potassium 3.7 (3.5-5.1) mmol/L Chloride 100 (98-107) mmol/L Carbon Dioxide 28 (22-29) mmol/L Anion Gap 14.7 (5-19) BUN 18 (6-20) mg/dL Creatinine 0.8 (0.7-1.2) mg/dL GFR Calculation 103.6 (90-130) mL/min Glucose 171 H (65-115) mg/dL POC Glucose (70-110) mg/dL Calculated Osmolal ity 289 (285-295) mOsm/k g Calcium 8.7 (8.5-10.5) mg/dL Total Bilirubin 0.5 (0.15-1.2) mg/dL AST 47 H (0-40) U/L ALT 51 H (0-41) U/L Alkaline Phosphata se 331 H (40-130) IU/L Total Protein 7.5 (6.6-8.7) g/dL Albumin 3.8 (3.5-5.2) g/dL Globulin 3.7 (1.3-4.6) g/dL 01/25/20 Range/Units 23:12 WBC (4.0-10.0) 10^3/ uL RBC (4.1-5.3) 10^6/u L Hgb (11.7-16.6) g/dL Hct (42.0-52.0) % MCV (80-94) fL MCH (28.0-34.0) pg MCHC (30.0-36.0) g/dL RDW (12.1-15.1) % Plt Count (130-400) 10^3/c mm MPV (7.4-10.4) fL Neut % (Auto) % Lymph % (Auto) % [place] % (Auto) % Eos % (Auto) % Baso % (Auto) % Neut # (Auto) (1.8-7.7) 10^3/u L Lymph # (Auto) (0.8-4.8) 10^3/u L [place] # (Auto) (0.2-0.9) 10^3/u L Eos # (Auto) (0.0-0.8) 10^3/u L Baso # (Auto) (0.0-0.1) 10^3/u L Nucleated RBC % (a uto) % Nucleated RBCs # /100WBC PT (10.5-13.3) SECO NDS INR (0.8-1.2) Sodium (136-145) mmol/L Potassium (3.5-5.1) mmol/L Chloride (98-107) mmol/L Carbon Dioxide (22-29) mmol/L Anion Gap (5-19) BUN (6-20) mg/dL Creatinine (0.7-1.2) mg/dL GFR Calculation (90-130) mL/min Glucose (65-115) mg/dL POC Glucose 140 (70-110) mg/dL Calculated Osmolal ity (285-295) mOsm/k g Calcium (8.5-10.5) mg/dL Total Bilirubin (0.15-1.2) mg/dL AST (0-40) U/L ALT (0-41) U/L Alkaline Phosphata se (40-130) IU/L Total Protein (6.6-8.7) g/dL Albumin (3.5-5.2) g/dL Globulin (1.3-4.6) g/dL Imaging Data^: CT Head: Attestation: I personally reviewed and interpreted this imaging study as follows: Radiologist's impression: [place] [address] CT Scan Report Signed Patient: Arnol Guzman Unit #: [id number] : 1970 Age/Sex: 49 / M ADM Date: 01/25/20 Loc: ER Room/Bed: Attending Dr: Ordering Provider/Ordering MD: Jesús Pickard MD Date of Service: 01/25/20 Procedure(s): CT head wo con* [id number] Accession Number(s): [id number] Report Number: [id number] PROCEDURE INFORMATION: Exam: CT Head Without Contrast Exam date and time: 01/25/2020 10:59 PM Age: 49 years old Clinical indication: Malaise or fatigue; Additional info: CVA TECHNIQUE: Imaging protocol: Computed tomography of the head without contrast. Radiation optimization: All CT scans at this facility use at least one of these dose optimization techniques: automated exposure control; mA and/or kV adjustment per patient size (includes targeted exams where dose is matched to clinical indication); or iterative reconstruction. COMPARISON: CT head wo con* [id number] 01/21/2020 10:06 PM RADIATION DOSE METRICS: Total DLP (mGy-cm): 869.3 FINDINGS: Brain: No acute intracranial hemorrhage or mass effect. Old infarcts again seen in the left posterior parietal/occipital region, and high right frontal/parietal region, not significantly changed. Possibly these could represent subacute areas of infarct. Please correlate clinically. No definite acute infarct by CT. MRI could be more sensitive/specific for detection, and also for distinguishing between old and subacute infarcts, as clinically directed. Ventricles: Ventricle size is normal for age. Bones/joints: No definite acute skull fracture. Sinuses: Included paranasal sinuses are essentially clear. Mastoid air cells: No significant acute finding. Vasculature: Vascular calcifications in the internal carotid arteries. CT/CT head wo con* [id number] IMPRESSION: 1. No acute intracranial hemorrhage or mass effect. 2. Old/prior infarcts, details above. 3. No definite acute infarct by CT, see above. 4. Other findings discussed above. CXR: Attestation: I personally reviewed and interpreted this imaging study as follows: My impression: no acute abnormlity EKG Data^: EKG 1: Attestation: I personally reviewed and interpreted this EKG as follows: EKG interpretation date: 01/25/20 EKG interpretation time: 23:45 Interpretation: nsr hr [address] or t wave abnormalities qrs 109 qtc 424 Discharge Plan Discharge Patient Disposition: Home, Self-Care Clinical Impression: Paresthesia Condition: Stable Prescriptions: No Action atorvastatin [Lipitor] 80 mg Tablet 80 mg PO DAILY RF: 0 atenolol 100 mg Tablet 100 mg PO DAILY RF: 0 omeprazole 40 mg Capsule,Delayed Release(Dr/Ec) 40 mg PO DAILY RF: 0 aspirin [Aspir-81] 81 mg Tablet,Delayed Release (Dr/Ec) 81 mg PO DAILY RF: 0 montelukast [Singulair] 10 mg Tablet 10 mg PO BEDTIME RF: 0 allopurinol 300 mg Tablet 600 mg PO DAILY RF: 0 metformin 500 mg Tablet Extended Release 24 Hr 500 mg PO BID RF: 0 furosemide 40 mg tablet 40 mg PO DAILY RF: 0 glipizide 10 mg Tablet Extended Release 24hr 10 mg PO BID RF: 0 sulfamethoxazole-trimethoprim 800-160 mg tablet 1 tab PO BID RF: 0 desvenlafaxine succinate 50 mg Tablet Extended Release 24 Hr 50 mg PO DAILY RF: 0 Janumet XR 50-1,000 mg tablet, ER multiphase 24 hr 1 tab PO BID RF: 0 Medrol (Hitesh) 4 mg tablets,dose pack See Rx Instructions .ROUTE .COMPLEX Qty: 21 RF: 0 Plavix 75 mg tablet 75 mg PO DAILY 30 Days Qty: 30 RF: 0 Discharge Orders: Discharge Order (Routine); Ordered 01/25/20 Ordered By: Jesús Pickard Referrals: Stewart Rosario MD [Primary Care Provider] - 1-3 days Discharge Diet: Advance as tolerated Discharge Activity: Resume usual activity Patient Instructions: Paresthesia (ED) Coding Level of Care Code ED Register In Chancery for Tiffanieg Fwd Exam Comprehensive
[2020-01-25 23:08] LABS: Basophils % 0.2 %; Eosinophils % 0.2 %; Hematocrit 35.9 % (42.0-52.0); Hemoglobin 10.3 g/dL (11.7-16.6); Lymphocytes # 1.3 10^3/uL (0.8-4.8); Lymphocytes % 19.8 %; Mean Corpuscular HGB Conc 28.7 g/dL (30.0-36.0); Mean Corpuscular Hemoglobin 24.6 pg (28.0-34.0); Mean Corpuscular Volume 85.9 fL (80-94); Mean Platelet Volume 9.9 fL (7.4-10.4); Monocytes # 0.5 10^3/uL (0.2-0.9); Monocytes % 7.1 %; Neutrophils # 4.71 10^3/uL (1.8-7.7); Neutrophils % 72.2 %; Nucleated Red Blood Cells % 0 %; Platelet Count 310 10^3/cmm (130-400); Red Blood Count 4.18 10^6/uL (4.1-5.3); Red Cell Distribution Width 18.4 % (12.1-15.1); White Blood Count 6.5 10^3/uL (4.0-10.0)
[2020-01-25 23:17] LABS: Glucose Point of Care 140 mg/dL (70-110)
[2020-01-25 23:27] LABS: Alanine Aminotransferase 51 U/L (0-41); Albumin Level 3.8 g/dL (3.5-5.2); Alkaline Phosphatase 331 IU/L (40-130); Anion Gap 14.7 (5-19); Aspartate Amino Transferase 47 U/L (0-40); Blood Urea Nitrogen 18 mg/dL (6-20); Calcium 8.7 mg/dL (8.5-10.5); Carbon Dioxide 28 mmol/L (22-29); Chloride 100 mmol/L (98-107); Globulin 3.7 g/dL (1.3-4.6); Glomerular Filtration Rate 103.6 mL/min (90-130); Glucose 171 mg/dL (65-115); Osmolality Calculated 289 mOsm/kg (285-295); Potassium 3.7 mmol/L (3.5-5.1); Sodium 139 mmol/L (136-145); Total Bilirubin 0.5 mg/dL (0.15-1.2); Total Protein 7.5 g/dL (6.6-8.7)
[2020-01-25 23:40] VITALS: BP 157/83; PULSE 70; RESP 16; O2SAT 100
[2020-01-26 00:07] VITALS: BP 156/86; PULSE 70; RESP 21; O2SAT 100
== END 2020-01-26 00:23 | disposition home or self-care (01) ==
PROVIDERS: Emergency Provider Emergency Medicine; PCP Family Medicine
DX: R20.2 Paresthesia of skin (principal); Z79.82 Long term (current) use of aspirin; I11.0 Hypertensive heart disease with heart failure; I50.9 Heart failure, unspecified; E11.9 Type 2 diabetes mellitus without complications; E78.2 Mixed hyperlipidemia; Z87.891 Personal history of nicotine dependence
CPT/HCPCS: 12345; 36416; 70450; 71045; 80053; 82962; 85025; 85610; 93005; 99282; 99283

== ENCOUNTER 2020-01-26 15:19 | Outpatient (CLI) | payer MEDICAID, SELFPAY | END 2020-01-26 15:20 | disposition home or self-care (01) | LOC: WOUND 15:20 | PROVIDERS: PCP Family Medicine; Visit Provider Emergency Medicine | DX: I96 Gangrene, not elsewhere classified (principal); L89.323 Pressure ulcer of left buttock, stage 3 | CPT/HCPCS: 11042 ==

== ENCOUNTER → 2020-03-11 08:11 | Outpatient (BNVA) | payer MEDICAID, SELFPAY | PROVIDERS: PCP Family Medicine; Referring Provider Internal Medicine; Visit Provider Specialist | DX: E11.9 Type 2 diabetes mellitus without complications (principal); Z86.73 Personal history of transient ischemic attack (TIA), and cerebral infarction without residual deficits; Z87.891 Personal history of nicotine dependence | CPT/HCPCS: 99205 ==

== ENCOUNTER 2020-03-20 08:30 | Emergency (ER) | payer MEDICAID, SELFPAY ==
[2020-03-20 08:39] VITALS: BP 170/70; PULSE 88; RESP 17; TEMP 36.2; O2SAT 95; BMI 54.8
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
--- NOTE | 2020-03-20 09:16 | PC.NURSE ---
Patient to X-ray via stretcher.
[2020-03-20 09:45] VITALS: RESP 14
== END 2020-03-20 09:45 | disposition home or self-care (01) ==
PROVIDERS: Emergency Provider Family Medicine; PCP Family Medicine
DX: M43.17 Spondylolisthesis, lumbosacral region (principal); S39.012A Strain of muscle, fascia and tendon of lower back, initial encounter; M54.16 Radiculopathy, lumbar region; Z79.82 Long term (current) use of aspirin; Z87.891 Personal history of nicotine dependence; I11.0 Hypertensive heart disease with heart failure; I50.9 Heart failure, unspecified; E11.9 Type 2 diabetes mellitus without complications; E78.2 Mixed hyperlipidemia; V89.2XXA Person injured in unspecified motor-vehicle accident, traffic, initial encounter
CPT/HCPCS: 12345; 72100; 99282

== ENCOUNTER 2020-04-08 10:38 | Outpatient (CLI) | payer MEDICAID, SELFPAY ==
--- NOTE | 2020-04-08 10:48 | CT_ITS ---
WS: [id number] CT LUMBAR SPINE TECHNIQUE: Noncontrast CT of the lumbar spine with coronal and sagittal reformatted images. CLINICAL INFORMATION: PARS DEFECT WITH SPONDYLOLISTHESIS COMPARISON: None. DLP: 1649.[address] scans at [facility] use at least one of these dose optimization techniques: automat ed exposure control; mA and/or kV adjustment per patient size (includes targeted exams where dose is matched to clinical indication); or iterative reconstruction. FINDINGS: Mild lumbar curve. No acute compression fractures. Slight anterolisthesis L5 on S1 measuring 5 mm with chronic spondylolysis. Disc osteophyte complexes worse L4-L5 and L5-S1. Ankylosis lower thoracic and upper lumbar spine. L1-L2: Mild disc bulging and osteophytic ridging. Slight narrowing of the left subarticular recess. M ild facet arthropathy. Spinal canal and foramen are patent. L2-L3: No significant disc bulging. Mild facet arthropathy. Spinal canal and foramen are patent. L3-L4: Mild disc bulging with slight effacement of ventral thecal sac. Moderate facet arthropathy. Mi ld left and no significant right foraminal narrowing. Moderate facet arthropathy. L4-L5: Prominent central and right pericentral disc osteophyte protrusion. Moderate central canal henny nosis. Impingement traversing right L5 nerve root. Advanced facet arthropathy. Prior right hemilamine ctomy. Mild right greater than left foraminal narrowing. L5-S1: Grade 1 anterolisthesis L5 on S1 measuring 5 mm. Chronic spondylolysis. Severe bilateral raul inal narrowing. Impingement traversing L5 nerve roots bilaterally. Moderate central canal stenosis wi th moderate facet arthropathy. Prior right hemilaminectomy. Visualized pelvic bony structures: Normal. Paravertebral soft tissues: Normal. CT/CT lumbar spine wo con* [id number] IMPRESSION: 1. Mild lumbar curve. No acute compression fractures. 2. Grade 1 anterolisthesis L5 on S1 with chronic bilateral spondylolysis. 3. Moderate central canal stenosis L4-5 with a right pericentral disc osteophy te protrusion. Impingement traversing right L5 nerve root with mild to moderate right foraminal narrowing at this level. 4. Moderate central canal stenosis L5-S1 due to grade 1 anterolisthesis in com bination with disc osteophyte complex and facet arthropathy. Moderate to severe bilateral foraminal narrowing at this level. 5. Moderate facet arthropathy L3-L5.
== END 2020-04-08 10:39 | disposition home or self-care (01) ==
LOC: RADWPI 10:41
PROVIDERS: Family Provider Family Medicine; PCP Family Medicine; Visit Provider Family Medicine
DX: M43.07 Spondylolysis, lumbosacral region (principal); M47.816 Spondylosis without myelopathy or radiculopathy, lumbar region; M48.07 Spinal stenosis, lumbosacral region; M48.061 Spinal stenosis, lumbar region without neurogenic claudication
CPT/HCPCS: 72131

== ENCOUNTER → 2020-09-13 08:09 | Outpatient (BNVA) | payer MEDICAID, SELFPAY | PROVIDERS: Family Provider Family Medicine; PCP Family Medicine; Visit Provider Counselor Professional | DX: F33.1 Major depressive disorder, recurrent, moderate (principal) | CPT/HCPCS: 90834 ==

== ENCOUNTER 2020-09-13 16:43 | Emergency (ER) | payer SELFPAY ==
[2020-09-13 17:03] VITALS: BP 149/74; PULSE 92; RESP 14; TEMP 36.9; O2SAT 97; BMI 57.2
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
[2020-09-13 17:38] VITALS: BP 155/73; PULSE 94; RESP 16; O2SAT 96
--- NOTE | 2020-09-13 17:49 | PC.NURSE ---
Read and agree with assessment.
== END 2020-09-13 18:11 | disposition home or self-care (01) ==
PROVIDERS: Emergency Provider Nurse Practitioner Family; PCP Family Medicine
DX: Z04.1 Encounter for examination and observation following transport accident (principal); Z79.82 Long term (current) use of aspirin; Z79.84 Long term (current) use of oral hypoglycemic drugs; I11.0 Hypertensive heart disease with heart failure; I50.9 Heart failure, unspecified; E11.9 Type 2 diabetes mellitus without complications; E78.2 Mixed hyperlipidemia; Z77.22 Contact with and (suspected) exposure to environmental tobacco smoke (acute) (chronic); V49.40XA Driver injured in collision with unspecified motor vehicles in traffic accident, initial encounter
CPT/HCPCS: 72100; 99282

== ENCOUNTER → 2020-09-27 08:14 | Outpatient (BNVA) | payer MEDICAID, SELFPAY | PROVIDERS: Family Provider Family Medicine; PCP Family Medicine; Visit Provider Counselor Professional | DX: F33.1 Major depressive disorder, recurrent, moderate (principal) | CPT/HCPCS: 90834 ==

== ENCOUNTER 2020-10-03 21:38 | Emergency (ER) | payer MEDICAID, SELFPAY ==
--- NOTE | 2020-10-03 21:46 | ECG_ITS ---
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 Measurements Intervals [place] Rate: 104 P: 81 DC: 167 QRS: 63 QRSD: 112 T: 76 QT: 347 QTc: 458 Interpretive Statements SINUS TACHYCARDIA INCOMPLETE RIGHT BUNDLE BRANCH BLOCK [90+ ms QRS DURATION, TERMINAL R IN V1/V2, 40+ ms S IN I/aVL/V4/V5/V6] MINIMAL ST DEPRESSION [0.025+ mV ST DEPRESSION] Compared to ECG 10/03/2020 21:49:04 No significant changes Electronically Signed On 10-04-2020 19:20:06 CDT by Wali Martinez M.D. [id number]
--- NOTE | 2020-10-03 21:46 | XRR_ITS ---
PROCEDURE INFORMATION: Exam: XR Chest Exam date and time: 10/03/2020 10:19 PM Age: 50 years old Clinical indication: Cough; Chest pain; Type not specified; Additional info: Cp/cough TECHNIQUE: Imaging protocol: XR of the chest Views: 1 view. COMPARISON: CR XR chest 1V portable [id number] 01/25/2020 11:07 PM FINDINGS: Lungs: There is hazy airspace opacities in both lungs, concerning for pneumonia. No large pleural effusion or pneumothorax. Pleural spaces: See Lungs finding. Heart/Mediastinum: Stable cardiomediastinal silhouette. Bones/joints: Degenerative changes of the spine seen. XR/XR chest 1V portable [id number] IMPRESSION: Imaging findings concerning for pneumonia.
[2020-10-03 21:47] VITALS: BP 142/93; PULSE 109; RESP 20; TEMP 36.6; O2SAT 96; BMI 62.3
[2020-10-03 21:51] VITALS: BP 142/93; PULSE 109; RESP 26; TEMP 36.9; O2SAT 95
--- NOTE | 2020-10-03 21:53 | ED_ITS ---
Documented by User: ABISAI Jain 10/04/20 02:54 HPI - Chest Pain General: Chief Complaint: Chest Pain Stated Complaint: chest pain Time Seen by Provider: 10/03/20 21:40 Source: patient and EMS Mode of arrival: EMS Limitations: no limitations History of Present Illness: HPI narrative: 50-year-old male patient presents to the emergency department via EMS. He is complaining of chest pain that started x2 days. He reports pain is located on the left front chest wall. States pain with movement of the left shoulder and with pressing on the chest. He has history of diabetes, CBG in the ambulance 381 prior to arrival, blood pressure noted to be 197/69. Sinus tachycardic to the monitor, 110 heart rate. He denies nausea vomiting or diarrhea. He reports pain is worse with deep breaths. He reports was trying to cough earlier, utilized albuterol inhaler, this improved his chest pain. He reports shortness of breath but is chronic. He has history of COPD. He denies change of sputum color or character. He denies fever or chills. MD complaint: chest pain Onset (ago): day(s) (3) Timing of current episode: episodic Prior episodes: Yes Onset: other (with cough) Pain location: left chest Pain radiation: none Severity: mild Quality: sharp Relieving factors: rest Exacerbating factors: palpation and movement Associated symptoms: Reports no associated symptoms and dyspnea (chronic); Deny abdominal pain, diaphoresis, fever(s), nausea, palpitations or vomiting Treatment prior to arrival: none Review of Systems General: Reports: 10 or more systems reviewed and unremarkable except in HPI and below Const: Denies: fever(s), chills, body aches, fatigue, malaise or diaphoresis Eyes: Denies: blurry vision, eye discomfort or eye redness ENMT: Denies: throat pain, dental pain or disequilibrium Card: Reports: chest pain, swelling of feet/ankles, dyspnea on exertion (chronic) and orthopnea (chronic, not changed); Denies: palpitations or irregular heart rhythm Resp: Reports: dyspnea (chronic); Denies: productive cough, non-productive cough or wheezing GI: Denies: abdominal pain, nausea or vomiting : Denies: difficulty urinating, dysuria or difficulty starting urination Musc: Denies: neck pain, back pain or joint pain Skin/Breast: Denies: rash or pruritus Neuro: Denies: headache(s), weakness in extremities or behavioral changes Mendel/Lymph: Denies: easy bruising PFSH ED PFSH: Medical History (Updated 10/04/20 @ 00:21 by ABISAI Jain) Anemia -has chronic iron deficiency anemia, baseline Hg is around 9-10 -stable H/H -was previously on iron supplementation CHF (congestive heart failure) -Echo (07/2019): EF=68%, normal diastolic function, no RWMA -on oral lasix -no acute exacerbation currently Decubitus ulcer limited to breakdown of skin (stage 2) Diabetes -NIDDM type II -A1c (11/2019): 8.2 -Accuchecks, ISS, hypoglycemia precautions -consistent carb diet -anticipate hyperglycemia with steroid use Gout Hyperlipemia, mixed Hypertension -VSS; continue to monitor -continue oral antihypertensives Morbid (severe) obesity due to excess calories OPAL (obstructive sleep apnea) -in the process of getting CPAP set up Pneumonia Transient cerebral ischemia Surgical History History of adenoidectomy History of hernia repair History of tonsillectomy History of umbilical hernia repair Family History Mother Hypertension CAD (coronary artery disease) Stroke Social History Smoking and tobacco status: never smoked Second hand smoke exposure: Yes Alcohol intake: never Adopted: No Caregiver/support person: No Lives independently: Yes Household members: family and friend(s) Housing: Manufactured/Mobile home Marital status: Single Number of children: 0 Number of grandchildren: 0 Highest education level completed: 8th Grade service: No Current occupational status: disabled Pets and animals: No History of recent travel: No Leisure activites: other Leisure activities details: play card games Sexually active: No Current gender identity: Male Yolanda/Gnosticism: Other Special yolanda needs: No Agree to transfusion: Yes Financial difficulty paying for basics: Hard Physical Exam Const: COMMON NORMALS: no acute distress, patient oriented x3, alert and well nourished GENERAL APPEARANCE: cooperative, comfortable, well kempt, well developed and well hydrated NUTRITIONAL APPEARANCE: obese and overweight ORIENTATION/CONSCIOUSNESS: Yes awake, Yes oriented to person, Yes oriented to place and Yes oriented to time HENMT: COMMON NORMALS: normocephalic, atraumatic, Normal external nose present and moist oral mucous membranes HEAD & SCALP: normal to inspection, normocephalic and atraumatic FACE & SINUS: normal facial exam and face symmetric NOSE: Normal external nose present Eye: COMMON NORMALS: Equal, round and reactive pupils present and EOMs intact bilaterally GENERAL EYE: appearance normal, both eyes and all related structures PUPIL: Yes Equal, round and reactive pupils present Neck/C-Spine: COMMON NORMALS: full ROM and no lymphadenopathy GENERAL: Yes normal visual inspection and Yes trachea midline CERVICAL SPINE: Yes cervical ROM normal Lymph: LYMPHATIC: no lymphadenopathy noted Chest: COMMONS NORMALS: normal inspection of the chest CHEST: Yes Symmetrical chest wall rise and Yes tenderness pectoral muscle on the left BREAST/AXILLA PALPATION: Yes normal palpation of the axillae Resp: COMMON NORMALS: normal respiratory effort, No retractions, No use of accessory muscles and clear to auscultation bilaterally EFFORT & INSPECTION: Yes able to speak in complete sentences, Yes symmetric chest movement, No respiratory distress, No decreased respiratory effort, No pursed lip breathing, No labored and No audible wheezes AUSCULTATION: clear to auscultation bilaterally Cardio: COMMON NORMALS: regular rate, regular rhythm, S1 normal heart sound present, S2 normal heart sound present and Peripheral pulses 2+ throughout RATE: regular rate and tachycardic RHYTHM: regular rhythm HEART SOUNDS: S1 normal heart sound present and S2 normal heart sound present PERIPHERAL PULSES: Peripheral pulses 2+ throughout GI: COMMON NORMALS: Normal to inspection, nondistended, normoactive bowel sounds present, Soft to palpation and non-tender INSPECTION: Yes normal to inspection, No abdominal distension and Yes central obesity AUSCULTATION: Yes normoactive bowel sounds PALPATION: Yes Soft to palpation : COMMON NORMALS: Yes no CVA tenderness BLADDER/KIDNEY EXAM: Yes no CVA tenderness Back/Pelvis: COMMON NORMALS: no CVA tenderness and thoracic and lumbar spine normal to inspection Extremity: COMMON NORMALS: normal to inspection and capillary refill normal Neuro: COMMON NORMALS: patient oriented x3 and no focal motor deficits SENSORIUM/ORIENTATION: Yes alert, Yes oriented to person, Yes oriented to place and Yes oriented to time Psych: COMMON NORMALS: mental status grossly normal, Normal thought process present and cooperative APPEARANCE: Yes well kempt ACTIVITY/MOTOR BEHAVIOR: Yes appropriate eye contact THOUGHT PROCESS: Normal thought process present Skin: COMMON NORMALS: no rashes or lesions noted and turgor normal GENERAL SKIN EXAM: no rashes or lesions noted and turgor normal Course Vital Signs: Vital signs: Vital Signs Temperature 98.4 F 10/03/20 21:51 Pulse Rate 108 H 10/04/20 00:37 Respiratory Rate 20 H 10/04/20 00:37 Blood Pressure 158/61 10/04/20 00:37 Pulse Oximetry 97 10/04/20 00:37 MDM - Chest Pain 2 MDM Narrative: Medical decision making narrative: 50-year-old male patient presents to the emergency department with complaints of chest wall pain. He reports pain was worse with movement of the left upper extremity and with pressing on the left chest wall. He has history of hypertension, congestive heart failure, history of BNP being as high as greater than 10,000. Troponin series with negative delta at 2-hour eveline, D-dimer was 0.48, 4PEPS score for PE -1. Patient was administered Tylenol here in the ER with resolution of chest wall pain. Patient has an appointment with Dr. Rosario tomorrow, he was advised to continue current medications including inhaler. He did not exhibit change of sputum or congestion, antibiotics were not prescribed as no sign of infection present, steroids were held as he is not diabetic. Chest x-ray did not reveal acute findings in comparison with previous x-ray completed 01/25/2020. Radiology interpretation pending. Patient diagnosed with pleurisy as chest pain was reproduced with palpation and worsened with movement of the left upper extremity. Lab Data: Labs: Lab Results 10/03/20 10/03/20 10/03/20 Range/Units 21:30 21:30 21:30 WBC 8.2 (4.0-10.0) 10^3/ uL RBC 4.59 (4.1-5.3) 10^6/u L Hgb 10.8 L (11.7-16.6) g/dL Hct 38.0 L (42.0-52.0) % MCV 82.8 (80-94) fL MCH 23.5 L (28.0-34.0) pg MCHC 28.4 L (30.0-36.0) g/dL RDW 18.6 H (12.1-15.1) % Plt Count 246 (130-400) 10^3/c mm MPV 9.9 (7.4-10.4) fL Neut % (Auto) 73.3 % Lymph % (Auto) 19.4 % [place] % (Auto) 6.7 % Eos % (Auto) 0.2 % Baso % (Auto) 0.2 % Neut # (Auto) 5.99 (1.8-7.7) 10^3/u L Lymph # (Auto) 1.6 (0.8-4.8) 10^3/u L [place] # (Auto) 0.6 (0.2-0.9) 10^3/u L Eos # (Auto) 0.0 (0.0-0.8) 10^3/u L Baso # (Auto) 0.0 (0.0-0.1) 10^3/u L Nucleated RBC % (a uto) 0 % Nucleated RBCs # 0.0 /100WBC D-Dimer 0.48 (0-0.59) ug/mIFE U Sodium 140 (136-145) mmol/L Potassium 3.8 (3.5-5.1) mmol/L Chloride 100 (98-107) mmol/L Carbon Dioxide 27 (22-29) mmol/L Anion Gap 16.8 (5-19) BUN 20 (6-20) mg/dL Creatinine 1.0 (0.7-1.2) mg/dL GFR Calculation 79.8 L (90-130) mL/min Glucose 296 H (65-115) mg/dL Calculated Osmolal ity 304 H (285-295) mOsm/k g Calcium 8.9 (8.5-10.5) mg/dL Total Bilirubin 0.6 (0.15-1.2) mg/dL AST 18 (0-40) U/L ALT 31 (0-41) U/L Alkaline Phosphata se 179 H (40-130) IU/L Troponin T Baselin e (0-15) ng/L Troponin T 120 Min tribe (0-15) ng/L Delta Troponin T (0-10) ABS# NT-Pro-B Natriuret Pep 694 H (0-125) pg/mL Total Protein 6.5 L (6.6-8.7) g/dL Albumin 3.7 (3.5-5.2) g/dL Globulin 2.8 (1.3-4.6) g/dL 10/03/20 10/03/20 Range/Units 21:30 23:06 WBC (4.0-10.0) 10^3/ uL RBC (4.1-5.3) 10^6/u L Hgb (11.7-16.6) g/dL Hct (42.0-52.0) % MCV (80-94) fL MCH (28.0-34.0) pg MCHC (30.0-36.0) g/dL RDW (12.1-15.1) % Plt Count (130-400) 10^3/c mm MPV (7.4-10.4) fL Neut % (Auto) % Lymph % (Auto) % [place] % (Auto) % Eos % (Auto) % Baso % (Auto) % Neut # (Auto) (1.8-7.7) 10^3/u L Lymph # (Auto) (0.8-4.8) 10^3/u L [place] # (Auto) (0.2-0.9) 10^3/u L Eos # (Auto) (0.0-0.8) 10^3/u L Baso # (Auto) (0.0-0.1) 10^3/u L Nucleated RBC % (a uto) % Nucleated RBCs # /100WBC D-Dimer (0-0.59) ug/mIFE U Sodium (136-145) mmol/L Potassium (3.5-5.1) mmol/L Chloride (98-107) mmol/L Carbon Dioxide (22-29) mmol/L Anion Gap (5-19) BUN (6-20) mg/dL Creatinine (0.7-1.2) mg/dL GFR Calculation (90-130) mL/min Glucose (65-115) mg/dL Calculated Osmolal ity (285-295) mOsm/k g Calcium (8.5-10.5) mg/dL Total Bilirubin (0.15-1.2) mg/dL AST (0-40) U/L ALT (0-41) U/L Alkaline Phosphata se (40-130) IU/L Troponin T Baselin e 34 H (0-15) ng/L Troponin T 120 Min tribe 32.33 H (0-15) ng/L Delta Troponin T -1.67 L (0-10) ABS# NT-Pro-B Natriuret Pep (0-125) pg/mL Total Protein (6.6-8.7) g/dL Albumin (3.5-5.2) g/dL Globulin (1.3-4.6) g/dL Discharge Plan Discharge Patient Disposition: Home Clinical Impression: Pleurisy, Acute chest wall pain Condition: Stable Prescriptions: No Action (DME) oxygen-air delivery systems Device See Rx Instructions .ROUTE .MEDSUPPLY Qty: 1 RF: 0 diazepam [Valium] 10 mg tablet 10 mg PO BID Qty: 2 RF: 0 albuterol sulfate 90 mcg/actuation HFA aerosol inhaler 2 puff inhalation Q6H PRN (Reason: Shortness Of Breath) RF: 0 atorvastatin [Lipitor] 80 mg Tablet 80 mg PO DAILY@0800 RF: 0 omeprazole 40 mg Capsule,Delayed Release(Dr/Ec) 40 mg PO DAILY@1200 RF: 0 montelukast [Singulair] 10 mg Tablet 10 mg PO BEDTIME@2000 RF: 0 allopurinol 300 mg tablet 300 mg PO DAILY@0800 RF: 0 furosemide 40 mg tablet 40 mg PO DAILY@0800 RF: 0 glipizide 10 mg Tablet Extended Release 24hr 10 mg PO BID@08,1999 RF: 0 desvenlafaxine succinate 50 mg Tablet Extended Release 24 Hr 50 mg PO DAILY RF: 0 Janumet XR 50-1,000 mg tablet, ER multiphase 24 hr 1 tab PO BID@0800,1999 RF: 0 Aspir-81 81 mg Tablet,Delayed Release (Dr/Ec) 81 mg PO DAILY@0800 RF: 0 atenolol 50 mg tablet 50 mg PO DAILY@0800 RF: 0 diclofenac sodium 75 mg tablet,delayed release (DR/EC) 75 mg PO Q12H PRN (Reason: pain) Qty: 20 RF: 0 Discharge Orders: Discharge ED (Routine); Ordered 10/04/20 Ordered By: Codie Powell Referrals: Stewart Rosario MD [Primary Care Provider] - Discharge Diet: Advance as tolerated Discharge Activity: Limit activity as instructed Patient Instructions: Chest Pain (ED), Pleurisy (ED), Opioid Safety Activity Restrictions/Additional Instructions: Continue current medications as prescribed Follow-up with Dr. Rosario tomorrow as scheduled Return to the emergency department if you develop an increase of difficulty breathing, fever chills or other concerning symptoms Take Tylenol as needed for chest wall pain Coding Level of Care Code ED Industrial Safety Engineer for Chg Fwd Exam Comprehensive Documented by User: Kvng Godinez DO 10/04/20 02:52 HPI - Chest Pain General: Chief Complaint: Chest Pain Stated Complaint: chest pain Time Seen by Provider: 10/03/20 21:40 PFSH ED PFSH: Medical History (Updated 10/04/20 @ 00:21 by ABISAI Jain) Anemia -has chronic iron deficiency anemia, baseline Hg is around 9-10 -stable H/H -was previously on iron supplementation CHF (congestive heart failure) -Echo (07/2019): EF=68%, normal diastolic function, no RWMA -on oral lasix -no acute exacerbation currently Decubitus ulcer limited to breakdown of skin (stage 2) Diabetes -NIDDM type II -A1c (11/2019): 8.2 -Accuchecks, ISS, hypoglycemia precautions -consistent carb diet -anticipate hyperglycemia with steroid use Gout Hyperlipemia, mixed Hypertension -VSS; continue to monitor -continue oral antihypertensives Morbid (severe) obesity due to excess calories OPAL (obstructive sleep apnea) -in the process of getting CPAP set up Pneumonia Transient cerebral ischemia Surgical History History of adenoidectomy History of hernia repair History of tonsillectomy History of umbilical hernia repair Family History Mother Hypertension CAD (coronary artery disease) Stroke Social History Smoking and tobacco status: never smoked Second hand smoke exposure: Yes Alcohol intake: never Adopted: No Caregiver/support person: No Lives independently: Yes Household members: family and friend(s) Housing: Manufactured/Mobile home Marital status: Single Number of children: 0 Number of grandchildren: 0 Highest education level completed: 8th Grade service: No Current occupational status: disabled Pets and animals: No History of recent travel: No Leisure activites: other Leisure activities details: play card games Sexually active: No Current gender identity: Male Yolanda/Gnosticism: Other Special yolanda needs: No Agree to transfusion: Yes Financial difficulty paying for basics: Hard Course Vital Signs: Vital signs: Vital Signs Temperature 98.4 F 10/03/20 21:51 Pulse Rate 108 H 10/04/20 00:37 Respiratory Rate 20 H 10/04/20 00:37 Blood Pressure 158/61 10/04/20 00:37 Pulse Oximetry 97 10/04/20 00:37 MDM - Chest Pain MDM Narrative: Medical decision making narrative: 50-year-old patient originally evaluated by RACHEL Hester. I have evaluated the patient also. I agree with her history, evaluation, and treatment. This gentleman has left- sided pleuritic chest pain that is reproducible. His D-dimer is negative. His chest x-ray did not show an acute infiltrate. His troponins did not elevate. His white blood cell count is 8.2 with a hemoglobin of 10.8. His electrolytes are normal. He will be allowed home. Lab Data: Labs: Lab Results 10/03/20 10/03/20 10/03/20 Range/Units 21:30 21:30 21:30 WBC 8.2 (4.0-10.0) 10^3/ uL RBC 4.59 (4.1-5.3) 10^6/u L Hgb 10.8 L (11.7-16.6) g/dL Hct 38.0 L (42.0-52.0) % MCV 82.8 (80-94) fL MCH 23.5 L (28.0-34.0) pg MCHC 28.4 L (30.0-36.0) g/dL RDW 18.6 H (12.1-15.1) % Plt Count 246 (130-400) 10^3/c mm MPV 9.9 (7.4-10.4) fL Neut % (Auto) 73.3 % Lymph % (Auto) 19.4 % [place] % (Auto) 6.7 % Eos % (Auto) 0.2 % Baso % (Auto) 0.2 % Neut # (Auto) 5.99 (1.8-7.7) 10^3/u L Lymph # (Auto) 1.6 (0.8-4.8) 10^3/u L [place] # (Auto) 0.6 (0.2-0.9) 10^3/u L Eos # (Auto) 0.0 (0.0-0.8) 10^3/u L Baso # (Auto) 0.0 (0.0-0.1) 10^3/u L Nucleated RBC % (a uto) 0 % Nucleated RBCs # 0.0 /100WBC D-Dimer 0.48 (0-0.59) ug/mIFE U Sodium 140 (136-145) mmol/L Potassium 3.8 (3.5-5.1) mmol/L Chloride 100 (98-107) mmol/L Carbon Dioxide 27 (22-29) mmol/L Anion Gap 16.8 (5-19) BUN 20 (6-20) mg/dL Creatinine 1.0 (0.7-1.2) mg/dL GFR Calculation 79.8 L (90-130) mL/min Glucose 296 H (65-115) mg/dL Calculated Osmolal ity 304 H (285-295) mOsm/k g Calcium 8.9 (8.5-10.5) mg/dL Total Bilirubin 0.6 (0.15-1.2) mg/dL AST 18 (0-40) U/L ALT 31 (0-41) U/L Alkaline Phosphata se 179 H (40-130) IU/L Troponin T Baselin e (0-15) ng/L Troponin T 120 Min tribe (0-15) ng/L Delta Troponin T (0-10) ABS# NT-Pro-B Natriuret Pep 694 H (0-125) pg/mL Total Protein 6.5 L (6.6-8.7) g/dL Albumin 3.7 (3.5-5.2) g/dL Globulin 2.8 (1.3-4.6) g/dL 10/03/20 10/03/20 Range/Units 21:30 23:06 WBC (4.0-10.0) 10^3/ uL RBC (4.1-5.3) 10^6/u L Hgb (11.7-16.6) g/dL Hct (42.0-52.0) % MCV (80-94) fL MCH (28.0-34.0) pg MCHC (30.0-36.0) g/dL RDW (12.1-15.1) % Plt Count (130-400) 10^3/c mm MPV (7.4-10.4) fL Neut % (Auto) % Lymph % (Auto) % [place] % (Auto) % Eos % (Auto) % Baso % (Auto) % Neut # (Auto) (1.8-7.7) 10^3/u L Lymph # (Auto) (0.8-4.8) 10^3/u L [place] # (Auto) (0.2-0.9) 10^3/u L Eos # (Auto) (0.0-0.8) 10^3/u L Baso # (Auto) (0.0-0.1) 10^3/u L Nucleated RBC % (a uto) % Nucleated RBCs # /100WBC D-Dimer (0-0.59) ug/mIFE U Sodium (136-145) mmol/L Potassium (3.5-5.1) mmol/L Chloride (98-107) mmol/L Carbon Dioxide (22-29) mmol/L Anion Gap (5-19) BUN (6-20) mg/dL Creatinine (0.7-1.2) mg/dL GFR Calculation (90-130) mL/min Glucose (65-115) mg/dL Calculated Osmolal ity (285-295) mOsm/k g Calcium (8.5-10.5) mg/dL Total Bilirubin (0.15-1.2) mg/dL AST (0-40) U/L ALT (0-41) U/L Alkaline Phosphata se (40-130) IU/L Troponin T Baselin e 34 H (0-15) ng/L Troponin T 120 Min tribe 32.33 H (0-15) ng/L Delta Troponin T -1.67 L (0-10) ABS# NT-Pro-B Natriuret Pep (0-125) pg/mL Total Protein (6.6-8.7) g/dL Albumin (3.5-5.2) g/dL Globulin (1.3-4.6) g/dL Discharge Plan Discharge Patient Disposition: Home Clinical Impression: Pleurisy, Acute chest wall pain Condition: Stable Prescriptions: No Action (DME) oxygen-air delivery systems Device See Rx Instructions .ROUTE .MEDSUPPLY Qty: 1 RF: 0 diazepam [Valium] 10 mg tablet 10 mg PO BID Qty: 2 RF: 0 albuterol sulfate 90 mcg/actuation HFA aerosol inhaler 2 puff inhalation Q6H PRN (Reason: Shortness Of Breath) RF: 0 atorvastatin [Lipitor] 80 mg Tablet 80 mg PO DAILY@0800 RF: 0 omeprazole 40 mg Capsule,Delayed Release(Dr/Ec) 40 mg PO DAILY@1200 RF: 0 montelukast [Singulair] 10 mg Tablet 10 mg PO BEDTIME@2000 RF: 0 allopurinol 300 mg tablet 300 mg PO DAILY@0800 RF: 0 furosemide 40 mg tablet 40 mg PO DAILY@0800 RF: 0 glipizide 10 mg Tablet Extended Release 24hr 10 mg PO BID@0800,1999 RF: 0 desvenlafaxine succinate 50 mg Tablet Extended Release 24 Hr 50 mg PO DAILY RF: 0 Janumet XR 50-1,000 mg tablet, ER multiphase 24 hr 1 tab PO BID@0800,1999 RF: 0 Aspir-81 81 mg Tablet,Delayed Release (Dr/Ec) 81 mg PO DAILY@0800 RF: 0 atenolol 50 mg tablet 50 mg PO DAILY@0800 RF: 0 diclofenac sodium 75 mg tablet,delayed release (DR/EC) 75 mg PO Q12H PRN (Reason: pain) Qty: 20 RF: 0 Discharge Orders: Discharge ED (Routine); Ordered 10/04/20 Ordered By: Codie Powell Referrals: Stewart Rosario MD [Primary Care Provider] - Discharge Diet: Advance as tolerated Discharge Activity: Limit activity as instructed Patient Instructions: Chest Pain (ED), Pleurisy (ED), Opioid Safety Activity Restrictions/Additional Instructions: Continue current medications as prescribed Follow-up with Dr. Rosario tomorrow as scheduled Return to the emergency department if you develop an increase of difficulty breathing, fever chills or other concerning symptoms Take Tylenol as needed for chest wall pain Coding Level of Care Code ED Industrial Safety Engineer for [place] Fwd Exam Comprehensive
[2020-10-03 22:03] LABS: Basophils % 0.2 %; Eosinophils % 0.2 %; Hemoglobin 10.8 g/dL (11.7-16.6); Lymphocytes # 1.6 10^3/uL (0.8-4.8); Lymphocytes % 19.4 %; Mean Corpuscular HGB Conc 28.4 g/dL (30.0-36.0); Mean Corpuscular Hemoglobin 23.5 pg (28.0-34.0); Mean Corpuscular Volume 82.8 fL (80-94); Mean Platelet Volume 9.9 fL (7.4-10.4); Monocytes # 0.6 10^3/uL (0.2-0.9); Monocytes % 6.7 %; Neutrophils # 5.99 10^3/uL (1.8-7.7); Neutrophils % 73.3 %; Nucleated Red Blood Cells % 0 %; Platelet Count 246 10^3/cmm (130-400); Red Blood Count 4.59 10^6/uL (4.1-5.3); Red Cell Distribution Width 18.6 % (12.1-15.1); White Blood Count 8.2 10^3/uL (4.0-10.0)
[2020-10-03 22:09] LABS: D Dimer 0.48 ug/mIFEU (0-0.59)
[2020-10-03 22:15] LABS: Troponin(5th) Baseline 34 ng/L (0-15)
[2020-10-03 22:24] LABS: Alanine Aminotransferase 31 U/L (0-41); Albumin Level 3.7 g/dL (3.5-5.2); Alkaline Phosphatase 179 IU/L (40-130); Anion Gap 16.8 (5-19); Aspartate Amino Transferase 18 U/L (0-40); Blood Urea Nitrogen 20 mg/dL (6-20); Calcium 8.9 mg/dL (8.5-10.5); Carbon Dioxide 27 mmol/L (22-29); Chloride 100 mmol/L (98-107); Globulin 2.8 g/dL (1.3-4.6); Glomerular Filtration Rate 79.8 mL/min (90-130); Glucose 296 mg/dL (65-115); NT Pro B Type Natriuretic Pept 694 pg/mL (0-125); Osmolality Calculated 304 mOsm/kg (285-295); Potassium 3.8 mmol/L (3.5-5.1); Sodium 140 mmol/L (136-145); Total Bilirubin 0.6 mg/dL (0.15-1.2); Total Protein 6.5 g/dL (6.6-8.7)
[2020-10-03 22:36] VITALS: BP 158/59; PULSE 104; RESP 21; O2SAT 93
[2020-10-03 23:35] LABS: Troponin 5 2HR 32.33 ng/L (0-15)
[2020-10-03 23:36] VITALS: BP 167/64; PULSE 108; RESP 23; O2SAT 97
[2020-10-03 23:41] LABS: Troponin 5 2HR Delta -1.67 ABS# (0-10)
--- NOTE | 2020-10-03 23:46 | ECG_ITS ---
[facility] Test Date: 2020-10-03 Pat Name: Arnol Guzman Department: Room: Gender: Male Correctional Treatment Specialist: : 1970 Requested By: Codie Culp Order Number: [id number] Bernardino MD: Wali Martinez M.D. Measurements Intervals [place] Rate: 109 P: 83 AK: 167 QRS: 59 QRSD: 107 T: 72 QT: 347 QTc: 469 Interpretive Statements SINUS TACHYCARDIA INCOMPLETE RIGHT BUNDLE BRANCH BLOCK [90+ ms QRS DURATION, TERMINAL R IN V1/V2, 40+ ms S IN I/aVL/V4/V5/V6] MINIMAL ST DEPRESSION [0.025+ mV ST DEPRESSION] Compared to ECG 01/25/2020 23:45:09 ST (T wave) deviation now present Sinus rhythm no longer present Electronically Signed On 10-04-2020 19:25:49 CDT by Wali Martinez M.D. [email or web address]
--- NOTE | 2020-10-04 00:11 | PC.NURSE ---
EKG done at 2355 and shown to JACKELINE RAMOS
[2020-10-04] MEDS: acetaminophen 500 mg Tablet 1000 MG PO (00:29)
[2020-10-04 00:37] VITALS: BP 158/61; PULSE 108; RESP 20; O2SAT 97
== END 2020-10-04 00:34 | disposition home or self-care (01) ==
PROVIDERS: Emergency Provider Nurse Practitioner Family; PCP Family Medicine
DX: R09.1 Pleurisy (principal); R07.89 Other chest pain; Z79.82 Long term (current) use of aspirin; Z79.84 Long term (current) use of oral hypoglycemic drugs; I11.0 Hypertensive heart disease with heart failure; I50.9 Heart failure, unspecified; E11.9 Type 2 diabetes mellitus without complications; E78.2 Mixed hyperlipidemia; Z77.22 Contact with and (suspected) exposure to environmental tobacco smoke (acute) (chronic)
CPT/HCPCS: 71045; 80053; 83880; 84484; 85025; 85378; 93005; 99283

== ENCOUNTER → 2020-10-11 08:22 | Outpatient (BNVA) | payer MEDICAID, SELFPAY | PROVIDERS: Family Provider Family Medicine; PCP Family Medicine; Visit Provider Counselor Professional | DX: F33.1 Major depressive disorder, recurrent, moderate (principal) | CPT/HCPCS: 90832 ==

== ENCOUNTER 2020-11-24 13:05 | Emergency (ER) | payer MEDICAID, SELFPAY ==
[2020-11-24 13:24] VITALS: BP 122/69; PULSE 76; RESP 18; O2SAT 95; BMI 64.2
--- NOTE | 2020-11-24 13:48 | CT_ITS ---
WS: [id number] CT pelvis with contrast, two-dimensional coronal and sagittal reconstruction was obtained. 11/24/2020 Clinical Data: suprapubic cellulitis, genital pain, diabetic DLP: 1945.75 mGy-cm Comparison: CT pelvis, 01/14/2028. Findings: There are 2 nonobstructing right renal calculi and a small left renal cortical cyst. The abdominal ao rta bifurcates normally into the common iliac arteries. The bladder is unremarkable. The prostate is normal in size. No abscess, adenopathy, ascites, mass, obstruction or free air is seen. The sigmoid c olon and rectum are not remarkable. Degenerative changes of the lumbar vertebral bodies and degenerat rafal disc disease of lower disc spaces is present. There is diffuse subcutaneous edema unchanged from before. There are small nodules in the anterior subcutaneous tissue but these are smaller than was se en on the prior study. CT/CT pelvis w con* [id number] Impression: 1. Diffuse subcutaneous edema unchanged without evidence of a subcutaneous absc ess. 2. 2 nonobstructing right renal calculi unchanged. 3. Negative for acute intrapelvic abnormalities.
[2020-11-24 13:50] VITALS: BP 152/61; PULSE 78; RESP 18; O2SAT 95
--- NOTE | 2020-11-24 13:58 | W.ED.WEAKNES ---
HPI - Weakness General: Chief complaint: Weakness Stated complaint: Weakness,SOB,staff infection, Time Seen by Provider: 11/24/20 13:39 History of Present Illness: HPI Narrative: 50-year-old male has some generalized weakness having difficulty with urination he feels it is dark and potentially odorous and sometimes cannot get to the bathroom in time. He is also complaining of possible staph infection in his inguinal area he has difficulty seeing it due to his weight and his pannus. It has a burning type sensation he has had a previous infection there before he is diabetic he does not have a machine to check his blood sugars he denies any nausea vomiting or diarrhea denies any fevers denies any other abdominal pain Review of Systems Narrative: General: denies fatigue, fever or chills. +weakness HEENT: denies ear pain, denies nasal congestion, denies vision changes, denies sore throat Neck: denies masses or pain Resp: denies cough, denies shortness of breath, denies pleuritic pain Cardio: denies chest pain, denies edema GI: denies abdominal pain, denies N/V/D, denies black/tarry or bloody stools : denies hematuria, denies dysuria. but some urgency, frequency and odor Neuro: denies headache, denies dizziness, denies motor or sensory changes Musculoskeletal: denies pain, denies swelling Skin: possible skin infection and or rash in inguinal, pubic area Psych: denies SI or HI Endocrine: denies thyroid symptoms, denies lymphadenopathy all over ROS reviewed and patient denies PFS ED PFSH: Medical History (Updated 11/24/20 @ 15:54 by Krystle Thompson DO) Anemia -has chronic iron deficiency anemia, baseline Hg is around 9-10 -stable H/H -was previously on iron supplementation CHF (congestive heart failure) -Echo (07/2019): EF=68%, normal diastolic function, no RWMA -on oral lasix -no acute exacerbation currently Decubitus ulcer limited to breakdown of skin (stage 2) Diabetes -NIDDM type II -A1c (11/2019): 8.2 -Accuchecks, ISS, hypoglycemia precautions -consistent carb diet -anticipate hyperglycemia with steroid use Gout Hyperlipemia, mixed Hypertension -VSS; continue to monitor -continue oral antihypertensives Morbid (severe) obesity due to excess calories OPAL (obstructive sleep apnea) -in the process of getting CPAP set up Pneumonia Transient cerebral ischemia Surgical History History of adenoidectomy History of hernia repair History of tonsillectomy History of umbilical hernia repair Family History Mother Hypertension CAD (coronary artery disease) Stroke Social History Smoking and tobacco status: never smoked Second hand smoke exposure: Yes Alcohol intake: never Adopted: No Caregiver/support person: No Lives independently: Yes Household members: family and friend(s) Housing: Manufactured/Mobile home Marital status: Single Number of children: 0 Number of grandchildren: 0 Highest education level completed: 8th Grade service: No Current occupational status: disabled Pets and animals: No History of recent travel: No Leisure activites: other Leisure activities details: play card games Sexually active: No Current gender identity: Male Yolanda/Islam: Other Special yolanda needs: No Agree to transfusion: Yes Financial difficulty paying for basics: Hard Physical Exam Narrative: EXAM NARRATIVE: General: a/o/3, no distress Head: atraumatic HEENT: normal eyes, normal conjunctiva, normal hearing, normal external nose, normal mouth, mucous membranes moist Neck: FROM, trachea midline Chest: normal expansion, no gross deformities Resp: normal speech, no retractions, no accessory muscle use, CTA bilaterally Cardio: regular rate and rhythm and no murmur, no peripheral edema, normal peripheral pulses GI: soft, obese non tender, no guarding normal BS : penis is normal, no gangrene Musculoskeletal: FROM, no pain or gross deformities Neuro: a/o appropriate for age, no gross motor or sensory deficitys, CN II-XII grossly intact, normal coordination, normal speech Skin: erythema on pannus and bilateral inguinal area with stellate lesions on right and moist with more kin presentation, central and left could be cellulitis Psych: cooperative, normal mood and effect Course Vital Signs: Vital signs: Vital Signs Pulse Rate 78 11/24/20 13:50 Respiratory Rate 18 11/24/20 13:50 Blood Pressure 152/61 11/24/20 13:50 Pulse Oximetry 95 11/24/20 13:50 MDM - Weakness Medical Records: Attestation: I reviewed the patient's medical records. Lab Data: Attestation: I reviewed the patient's lab results. Labs: Lab Results 11/24/20 11/24/20 11/24/20 Range/Units 14:08 14:08 15:05 WBC 9.7 (4.0-10.0) 10^3/ uL RBC 4.47 (4.1-5.3) 10^6/u L Hgb 10.5 L (11.7-16.6) g/dL Hct 36.7 L (42.0-52.0) % MCV 82.1 (80-94) fL MCH 23.5 L (28.0-34.0) pg MCHC 28.6 L (30.0-36.0) g/dL RDW 18.8 H (12.1-15.1) % Plt Count 258 (130-400) 10^3/c mm MPV 8.9 (7.4-10.4) fL Neut % (Auto) 78.9 % Lymph % (Auto) 13.4 % [place] % (Auto) 6.7 % Eos % (Auto) 0.4 % Baso % (Auto) 0.3 % Neut # (Auto) 7.63 (1.8-7.7) 10^3/u L Lymph # (Auto) 1.3 (0.8-4.8) 10^3/u L [place] # (Auto) 0.7 (0.2-0.9) 10^3/u L Eos # (Auto) 0.0 (0.0-0.8) 10^3/u L Baso # (Auto) 0.0 (0.0-0.1) 10^3/u L Nucleated RBC % (a uto) 0 % Nucleated RBCs # 0.0 /100WBC Sodium 141 (136-145) mmol/L Potassium 4.3 (3.5-5.1) mmol/L Chloride 103 (98-107) mmol/L Carbon Dioxide 30 H (22-29) mmol/L Anion Gap 12.3 (5-19) BUN 19 (6-20) mg/dL Creatinine 0.9 (0.7-1.2) mg/dL GFR Calculation 90.1 (90-130) mL/min Glucose 170 H (65-115) mg/dL Calculated Osmolal ity 298 H (285-295) mOsm/k g Calcium 8.8 (8.5-10.5) mg/dL Total Bilirubin 0.7 (0.15-1.2) mg/dL AST 22 (0-40) U/L ALT 35 (0-41) U/L Alkaline Phosphata se 193 H (40-130) IU/L Total Protein 7.1 (6.6-8.7) g/dL Albumin 3.6 (3.5-5.2) g/dL Globulin 3.5 (1.3-4.6) g/dL Urine Color Yellow (Yellow) Urine Appearance Clear (CLEAR) Urine pH 5 (5-7) Ur Specific Gravit y 1.005 (1.005-1.030) Urine Protein Neg (Negative) Urine Glucose (UA) Norm (Normal) Urine Ketones Negative (Negative) Urine Blood Neg (Negative) Urine Nitrate Negative (Negative) Urine Bilirubin Neg (Negative) Urine Urobilinogen Norm (Negative) mg/dL Ur Leukocyte Maggie ase Negative (Negative) Urine RBC None (0-2) /hpf Urine WBC None (0-5) /hpf Ur Squamous Epith Cells Rare (0-5) /hpf Amorphous Sediment Not Reportable Urine Bacteria None (NONE) /hpf Discharge Plan Discharge Patient Disposition: Home Clinical Impression: Kin infection Cellulitis Qualifiers: Site of cellulitis: trunk Site of cellulitis of trunk: groin Qualified Code(s): L03.314 - Cellulitis of groin Condition: Stable Prescriptions: New Bactrim DS 800-160 mg tablet 1 tab PO BID 7 Days Qty: 14 RF: 0 nystatin 100,000 unit/gram powder 1 applic topical TID 28 Days Qty: 60 RF: 1 No Action (DME) oxygen-air delivery systems Device See Rx Instructions .ROUTE .MEDSUPPLY Qty: 1 RF: 0 albuterol sulfate 90 mcg/actuation HFA aerosol inhaler 2 puff inhalation Q6H PRN (Reason: Shortness Of Breath) RF: 0 atorvastatin [Lipitor] 80 mg Tablet 80 mg PO DAILY@0800 RF: 0 omeprazole 40 mg Capsule,Delayed Release(Dr/Ec) 40 mg PO DAILY@1200 RF: 0 montelukast [Singulair] 10 mg Tablet 10 mg PO BEDTIME@1999 RF: 0 allopurinol 300 mg tablet 300 mg PO DAILY@0800 RF: 0 furosemide 40 mg tablet 40 mg PO DAILY@0800 RF: 0 glipizide 10 mg Tablet Extended Release 24hr 10 mg PO BID@799,1999 RF: 0 Janumet XR 50-1,000 mg tablet, ER multiphase 24 hr 1 tab PO BID@799,1999 RF: 0 aspirin [Aspir-81] 81 mg Tablet,Delayed Release (Dr/Ec) 81 mg PO DAILY@0800 RF: 0 atenolol 100 mg tablet 100 mg PO DAILY@0800 RF: 0 Dulera 200-5 mcg/actuation HFA aerosol inhaler 2 puff INHALATION BID RF: 0 Discharge Orders: Discharge ED (Routine); Ordered 11/24/20 Ordered By: Krystle Thompson Referrals: Stewart Rosario MD [Primary Care Provider] - Patient Instructions: Kin Albicans Antigen (Intradermal), Diaper Rash (ED), Cellulitis (ED) Activity Restrictions/Additional Instructions: Go ahead and start your antibiotics today and take all of them also you need to use that powder 3-4 times a day and keep your inguinal groin area dry especially on that right side. Return if fevers elevated blood sugars vomiting worsening of symptoms monitor for any rash from the antibiotics. Follow-up with your provider call today but make an appointment to be rechecked next week Thank you for choosing [facility] for your healthcare needs today. Please realize this is an emergency room and that we are providing you with a medical screening exam and this may not be complete and all inclusive of all the testing and or work up that you may need to determine your ailment or severity of your illness. It is very important that you follow up as instructed or that you return to the Emergency Department should you have concerns or if your condition changes or worsens in any way. Coding Level of Care Code ED Supervisor Case Loading for Zac Pickett
[2020-11-24 14:12] LABS: Basophils % 0.3 %; Eosinophils % 0.4 %; Hematocrit 36.7 % (42.0-52.0); Hemoglobin 10.5 g/dL (11.7-16.6); Lymphocytes # 1.3 10^3/uL (0.8-4.8); Lymphocytes % 13.4 %; Mean Corpuscular HGB Conc 28.6 g/dL (30.0-36.0); Mean Corpuscular Hemoglobin 23.5 pg (28.0-34.0); Mean Corpuscular Volume 82.1 fL (80-94); Mean Platelet Volume 8.9 fL (7.4-10.4); Monocytes # 0.7 10^3/uL (0.2-0.9); Monocytes % 6.7 %; Neutrophils # 7.63 10^3/uL (1.8-7.7); Neutrophils % 78.9 %; Nucleated Red Blood Cells % 0 %; Platelet Count 258 10^3/cmm (130-400); Red Blood Count 4.47 10^6/uL (4.1-5.3); Red Cell Distribution Width 18.8 % (12.1-15.1); White Blood Count 9.7 10^3/uL (4.0-10.0)
[2020-11-24] MEDS: iohexol 300 mg/mL 100 mL Btl IV (14:47)
[2020-11-24 15:03] LABS: Alanine Aminotransferase 35 U/L (0-41); Albumin Level 3.6 g/dL (3.5-5.2); Alkaline Phosphatase 193 IU/L (40-130); Anion Gap 12.3 (5-19); Aspartate Amino Transferase 22 U/L (0-40); Blood Urea Nitrogen 19 mg/dL (6-20); Calcium 8.8 mg/dL (8.5-10.5); Carbon Dioxide 30 mmol/L (22-29); Chloride 103 mmol/L (98-107); Globulin 3.5 g/dL (1.3-4.6); Glomerular Filtration Rate 90.1 mL/min (90-130); Glucose 170 mg/dL (65-115); Osmolality Calculated 298 mOsm/kg (285-295); Potassium 4.3 mmol/L (3.5-5.1); Sodium 141 mmol/L (136-145); Total Bilirubin 0.7 mg/dL (0.15-1.2); Total Protein 7.1 g/dL (6.6-8.7)
[2020-11-24 15:17] LABS: Bilirubin Urine Neg (Negative); Blood Urine Neg (Negative); Glucose Urine UA Norm (Normal); Ketones Urine Negative (Negative); Leukocyte Esterase Urine Negative (Negative); Nitrate Urine Negative (Negative); Protein Urine Neg (Negative); Specific Gravity, Urine 1.005 (1.005-1.030); Urine Appearance Clear (CLEAR); Urine Color Yellow (Yellow); Urobilinogen Urine Norm (Negative); pH Urine 5 (5-7)
[2020-11-24 15:19] LABS: Squamous Epithelial Cell Urine RARE /hpf (0-5)
[2020-11-24] MEDS: clindamycin 900 MG/50 ML PREMIX 100 MG IV (16:08)
== END 2020-11-24 16:34 | disposition home or self-care (01) ==
PROVIDERS: Emergency Provider Emergency Medicine; Family Provider Family Medicine; PCP Family Medicine
DX: L03.314 Cellulitis of groin (principal); B37.9 Candidiasis, unspecified; Z79.82 Long term (current) use of aspirin; Z79.84 Long term (current) use of oral hypoglycemic drugs; I11.0 Hypertensive heart disease with heart failure; I50.9 Heart failure, unspecified; E78.2 Mixed hyperlipidemia; Z77.22 Contact with and (suspected) exposure to environmental tobacco smoke (acute) (chronic)
CPT/HCPCS: 72193; 80053; 81001; 85025; 96365; 99283; J3490; Q9967

== ENCOUNTER → 2020-12-09 08:40 | Outpatient (BNVA) | payer MEDICAID, SELFPAY | PROVIDERS: Family Provider Family Medicine; PCP Family Medicine; Visit Provider Counselor Professional | DX: F33.1 Major depressive disorder, recurrent, moderate (principal) | CPT/HCPCS: 90832 ==

== ENCOUNTER → 2020-12-23 08:13 | Outpatient (BNVA) | payer MEDICAID, SELFPAY | PROVIDERS: Family Provider Family Medicine; PCP Family Medicine; Visit Provider Counselor Professional | DX: F33.1 Major depressive disorder, recurrent, moderate (principal) | CPT/HCPCS: 90834 ==

== ENCOUNTER 2021-02-16 10:38 | Emergency (ER) | payer MEDICAID, SELFPAY ==
[2021-02-16 10:59] VITALS: BP 139/88; PULSE 80; RESP 26; O2SAT 94; BMI 66.1
[2021-02-16 11:03] VITALS: BP 163/66; PULSE 82; RESP 22; O2SAT 95
--- NOTE | 2021-02-16 11:19 | ECG_ITS ---
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 Measurements Intervals [place] Rate: 76 P: 74 [place]: 169 QRS: 77 QRSD: 101 T: 99 QT: 376 QTc: 424 Interpretive Statements SINUS RHYTHM INCOMPLETE RIGHT BUNDLE BRANCH BLOCK [90+ ms QRS DURATION, TERMINAL R IN V1/V2, 40+ ms S IN I/aVL/V4/V5/V6] WARNING: DATA QUALITY MAY AFFECT INTERPRETATION Compared to ECG 10/03/2020 23:54:41 Sinus tachycardia no longer present ST (T wave) deviation no longer present Electronically Signed On 02-17-2021 7:38:00 CDT by Crys Diggs M.D. [id number]
--- NOTE | 2021-02-16 11:19 | XR_ITS ---
WS: [id number] Portable AP upright chest, 02/16/2021 Clinical Data: CP, SOB Comparison: Portable chest, 10/03/2020. Findings: No nodules, masses or effusions are seen. The heart is enlarged. The pulmonary vascularity is not increased. No pneumothorax is seen. Minimal bilateral opacities are seen in both lungs. Monito r leads are on the chest wall. XR/XR chest 1V portable [id number] Impression: 1. Minimal bilateral pulmonary opacities which can be seen with pneumonia. 2. Cardiomegaly.
--- NOTE | 2021-02-16 11:23 | W.ED.CHESTPA ---
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 Chest pain is only on exertion and it is located retrosternally. Radiates to both flanks. Pain improves on rest and is worsened by exertion. He went to his primary care yesterday and they tested him for Covid and he tested negative. He is short of breath and was brought into the emergency department via EMS on 2 L of oxygen. He does not use oxygen at home. He has a history of asthma/bronchitis according to the patient. He does not smoke and he does not have a known history of COPD. MD complaint: chest pain Pertinent past history: asthma Onset (ago): day(s) (1) Timing of current episode: episodic Prior episodes: No Onset: during exertion Pain location: substernal Pain radiation: abdomen Severity: moderate Quality: heaviness Relieving factors: rest Exacerbating factors: exertion Associated symptoms: Reports abdominal pain and dyspnea; Deny diaphoresis, fever(s), leg edema, nausea, palpitations, sense of impending doom, syncope or vomiting Treatment prior to arrival: oxygen Review of Systems General: Reports: 10 or more systems reviewed and unremarkable except in HPI and below Const: Denies: fever(s) or diaphoresis Card: Denies: palpitations or syncope Resp: Reports: dyspnea GI: Reports: abdominal pain; Denies: nausea or vomiting [facility] ED PFSH: Medical History (Updated 02/16/21 @ 15:17 by Oswaldo Starkey MD, [facility] Anemia -has chronic iron deficiency anemia, baseline Hg is around 9-10 -stable H/H -was previously on iron supplementation CHF (congestive heart failure) -Echo (07/2019): EF=68%, normal diastolic function, no RWMA -on oral lasix -no acute exacerbation currently Decubitus ulcer limited to breakdown of skin (stage 2) Diabetes -NIDDM type II -A1c (11/2019): 8.2 -Accuchecks, ISS, hypoglycemia precautions -consistent carb diet -anticipate hyperglycemia with steroid use Gout Hyperlipemia, mixed Hypertension -VSS; continue to monitor -continue oral antihypertensives Morbid (severe) obesity due to excess calories OPAL (obstructive sleep apnea) -in the process of getting CPAP set up Pneumonia Transient cerebral ischemia Surgical History (Reviewed 02/16/21 @ 11:27 by Oswaldo Starkey MD, [facility]) History of adenoidectomy History of hernia repair History of tonsillectomy History of umbilical hernia repair Family History (Reviewed 02/16/21 @ 11:27 by Oswaldo Starkey MD, [facility] Mother Hypertension CAD (coronary artery disease) Stroke Social History (Reviewed 02/16/21 @ 11:27 by Oswaldo Starkey MD, [facility] Smoking and tobacco status: never smoked Second hand smoke exposure: Yes Alcohol intake: never Adopted: No Caregiver/support person: No Lives independently: Yes Household members: family and friend(s) Housing: Manufactured/Mobile home Marital status: Single Number of children: 0 Number of grandchildren: 0 Highest education level completed: 8th Grade service: No Current occupational status: disabled Pets and animals: No History of recent travel: No Leisure activites: other Leisure activities details: play card games Sexually active: No Current gender identity: Male Yolanda/Jainism: Other Special yolanda needs: No Agree to transfusion: Yes Financial difficulty paying for basics: Hard Physical Exam Const: COMMON NORMALS: no acute distress, average body habitus, patient oriented x3, no limitations, healthy appearing, alert and well nourished HENMT: COMMON NORMALS: normocephalic, atraumatic and moist oral mucous membranes HEAD & SCALP: normocephalic and atraumatic Neck/C-Spine: COMMON NORMALS: no meningeal signs and no JVD Chest: COMMONS NORMALS: normal inspection of the chest and normal palpation of entire chest wall Resp: COMMON NORMALS: normal respiratory effort, No retractions, No use of accessory muscles and percussion normal AUSCULTATION: rales on the right and wheezes expiratory wheezes and right lower PERCUSSION: percussion normal Cardio: COMMON NORMALS: no JVD, regular rate, regular rhythm, S1 normal heart sound present, S2 normal heart sound present, No gallops present (Cardio), No clicks present (Cardio), No murmurs present (Cardio), No rub (Cardio) and Peripheral pulses 2+ throughout RATE: regular rate RHYTHM: regular rhythm HEART SOUNDS: S1 normal heart sound present and S2 normal heart sound present PERIPHERAL PULSES: Peripheral pulses 2+ throughout GI: COMMON NORMALS: Normal to inspection, nondistended, normoactive bowel sounds present, Soft to palpation, non-tender, No hepatosplenomegaly present, no masses and no bruits PALPATION: Yes Soft to palpation and Yes No hepatosplenomegaly present Extremity: COMMON NORMALS: normal to inspection, full ROM, capillary refill normal, no calf tenderness and no pedal edema Neuro: COMMON NORMALS: patient oriented x3 SENSORIUM/ORIENTATION: Yes alert MENINGEAL SIGNS: Yes no meningeal signs Course Reevaluation(s): Reevaluation #1: Discussed his lab and imaging findings with him. Chest x-ray consistent with pneumonia. Covid test was negative. Will manage him as a case of community-acquired pneumonia with antibiotics. He voiced understanding and is in agreement with the plan. Time: 15:16 Vital Signs: Vital signs: Vital Signs Pulse Rate 82 02/16/21 17:09 Respiratory Rate 20 H 02/16/21 17:09 Blood Pressure 134/57 02/16/21 17:09 Pulse Oximetry 93 02/16/21 17:09 MDM - Chest Pain MDM Narrative: Medical decision making narrative: 50-year-old male who presents to the emergency department with complaints of shortness of breath and chest pain. In the emergency department work-up was unremarkable other than showing pneumonia. Cardiac work-up was negative. He is discharged home with a prescription for oral antibiotics. He remained stable and was not requiring oxygen in the emergency department. Curb 65 score is 0 meaning he is appropriate for outpatient treatment. Heart score is 3 meaning he is a low risk on 1.7% risk of major adverse cardiac event within the next 6 weeks. Medical Records: Attestation: I reviewed the patient's medical records. Lab Data: Attestation: I reviewed the patient's lab results. Labs: Lab Results 02/16/21 02/16/21 02/16/21 Range/Units 11:25 12:14 12:14 WBC 8.6 (4.0-10.0) 10^3/ uL RBC 4.40 (4.1-5.3) 10^6/u L Hgb 9.9 L (11.7-16.6) g/dL Hct 36.1 L (42.0-52.0) % MCV 82.0 (80-94) fL MCH 22.5 L (28.0-34.0) pg MCHC 27.4 L (30.0-36.0) g/dL RDW 19.4 H (12.1-15.1) % Plt Count 253 (130-400) 10^3/c mm MPV 10.2 (7.4-10.4) fL Neut % (Auto) 80.2 % Lymph % (Auto) 12.4 % [place] % (Auto) 6.8 % Eos % (Auto) 0.1 % Baso % (Auto) 0.3 % Neut # (Auto) 6.91 (1.8-7.7) 10^3/u L Lymph # (Auto) 1.1 (0.8-4.8) 10^3/u L [place] # (Auto) 0.6 (0.2-0.9) 10^3/u L Eos # (Auto) 0.0 (0.0-0.8) 10^3/u L Baso # (Auto) 0.0 (0.0-0.1) 10^3/u L Nucleated RBC % (a uto) 0 % Nucleated RBCs # 0.0 /100WBC D-Dimer 0.59 (0-0.59) ug/mIFE U Sodium (136-145) mmol/L Potassium (3.5-5.1) mmol/L Chloride (98-107) mmol/L Carbon Dioxide (22-29) mmol/L Anion Gap (5-19) BUN (6-20) mg/dL Creatinine (0.7-1.2) mg/dL GFR Calculation (90-130) mL/min Glucose (65-115) mg/dL Calculated Osmolal ity (285-295) mOsm/k g Calcium (8.5-10.5) mg/dL Total Bilirubin (0.15-1.2) mg/dL AST (0-40) U/L ALT (0-41) U/L Alkaline Phosphata se (40-130) IU/L Troponin T Baselin e (0-15) ng/L Troponin T 120 Min ramu (0-15) ng/L Delta Troponin T (0-10) ABS# NT-Pro-B Natriuret Pep (0-125) pg/mL Total Protein (6.6-8.7) g/dL Albumin (3.5-5.2) g/dL Globulin (1.3-4.6) g/dL Lipase (13-60) U/L SARS-CoV-2 Ag (Rap id) Negative (Negative) 02/16/21 02/16/21 02/16/21 Range/Units 12:14 12:14 14:11 WBC (4.0-10.0) 10^3/ uL RBC (4.1-5.3) 10^6/u L Hgb (11.7-16.6) g/dL Hct (42.0-52.0) % MCV (80-94) fL MCH (28.0-34.0) pg MCHC (30.0-36.0) g/dL RDW (12.1-15.1) % Plt Count (130-400) 10^3/c mm MPV (7.4-10.4) fL Neut % (Auto) % Lymph % (Auto) % [place] % (Auto) % Eos % (Auto) % Baso % (Auto) % Neut # (Auto) (1.8-7.7) 10^3/u L Lymph # (Auto) (0.8-4.8) 10^3/u L [place] # (Auto) (0.2-0.9) 10^3/u L Eos # (Auto) (0.0-0.8) 10^3/u L Baso # (Auto) (0.0-0.1) 10^3/u L Nucleated RBC % (a uto) % Nucleated RBCs # /100WBC D-Dimer (0-0.59) ug/mIFE U Sodium 142 (136-145) mmol/L Potassium 4.4 (3.5-5.1) mmol/L Chloride 103 (98-107) mmol/L Carbon Dioxide 28 (22-29) mmol/L Anion Gap 15.4 (5-19) BUN 17 (6-20) mg/dL Creatinine 0.9 (0.7-1.2) mg/dL GFR Calculation 90.1 (90-130) mL/min Glucose 161 H (65-115) mg/dL Calculated Osmolal ity 299 H (285-295) mOsm/k g Calcium 8.6 (8.5-10.5) mg/dL Total Bilirubin 0.9 (0.15-1.2) mg/dL AST 23 (0-40) U/L ALT 34 (0-41) U/L Alkaline Phosphata se 149 H (40-130) IU/L Troponin T Baselin e 31 H (0-15) ng/L Troponin T 120 Min ramu 31.99 H (0-15) ng/L Delta Troponin T 0.99 (0-10) ABS# NT-Pro-B Natriuret Pep 1483 H (0-125) pg/mL Total Protein 6.3 L (6.6-8.7) g/dL Albumin 3.5 (3.5-5.2) g/dL Globulin 2.8 (1.3-4.6) g/dL Lipase 22 (13-60) U/L SARS-CoV-2 Ag (Rap id) (Negative) Imaging Data^: CXR: Attestation: I personally reviewed and interpreted this imaging study as follows: Radiologist's impression: [address] [address]AO[place] ReportSigned Patient: Arnol Guzman #: [id number]: 1970Acct#:[id number]/Sex: 50 / MADM Date: 02/16/21[facility] Dr: Ordering Provider/Ordering MD: Oswaldo Starkey MD, [facility] Date of Service: 02/16/21 Procedure(s): XR chest 1V portable [id number] Accession Number(s): [id number] Report Number: [id number] WS: [id number] Portable AP upright chest, 02/16/2021 Clinical Data: CP, SOB Comparison: Portable chest, 10/03/2020. Findings: No nodules, masses or effusions are seen. The heart is enlarged. The pulmonary vascularity is not increased. No pneumothorax is seen. Minimal bilateral opacities are seen in both lungs. Monitor leads are on the chest wall. XR/XR chest 1V portable [id number] Impression: 1. Minimal bilateral pulmonary opacities which can be seen with pneumonia. 2. Cardiomegaly. Dictated By:Eva Patton MDSigned By:Eva Patton MDSigned Date/Time:02/16/21 1236DD/ 1234 EKG Data^: EKG 1: Attestation: I personally reviewed and interpreted this EKG as follows: EKG interpretation date: 02/16/21 EKG interpretation time: 13:17 Prior EKG tracings: not available for review Interpretation: Sinus rhythm. Heart rate [address] changes. Discharge Plan Discharge Patient Disposition: Home Clinical Impression: Pneumonia Qualifiers: Pneumonia type: due to unspecified organism Laterality: bilateral Lung location: lower lobe of lung Qualified Code(s): J18.9 - Pneumonia, unspecified organism Condition: Stable Prescriptions: Continued (DME) oxygen-air delivery systems Device See Rx Instructions .ROUTE .MEDSUPPLY Qty: 1 RF: 0 albuterol sulfate 90 mcg/actuation HFA aerosol inhaler 2 puff inhalation Q6H PRN (Reason: Shortness Of Breath) RF: 0 atorvastatin [Lipitor] 80 mg Tablet 80 mg PO BEDTIME RF: 0 omeprazole 40 mg Capsule,Delayed Release(Dr/Ec) 40 mg PO QAM RF: 0 montelukast [Singulair] 10 mg Tablet 10 mg PO BEDTIME RF: 0 furosemide 40 mg tablet 40 mg PO QAM RF: 0 glipizide 10 mg Tablet Extended Release 24hr 10 mg PO BID RF: 0 aspirin 81 mg Tablet,Delayed Release (Dr/Ec) 81 mg PO QAM RF: 0 atenolol 100 mg tablet 100 mg PO QAM RF: 0 Dulera 200-5 mcg/actuation HFA aerosol inhaler 2 puff INHALATION BID RF: 0 fluconazole 150 mg tablet 150 mg PO Q7D RF: 0 allopurinol 100 mg tablet 100 mg PO QAM RF: 0 lisinopril 5 mg tablet 5 mg PO QAM RF: 0 Levemir FlexTouch U-100 Insuln 100 unit/mL (3 mL) insulin pen 6 unit SUBCUT DAILY RF: 0 Janumet 50-1,000 mg tablet 1 tab PO BID RF: 0 Discharge Orders: Discharge ED (Routine); Ordered 02/16/21 Ordered By: Oswaldo Starkey Referrals: Stewart Rosario MD [Primary Care Provider] - 1-3 days Discharge Diet: Usual diet Discharge Activity: Increase activity as tolerated Patient Instructions: Community-acquired Pneumonia (ED) Activity Restrictions/Additional Instructions: Return for any new or worsening symptoms. Follow-up with your primary care provider within 3 days. Take antibiotics as prescribed. Use oxygen as needed. Coding Level of Care Code ED Fiberglass Model Maker for Chg Fwd Exam Comprehensive
--- NOTE | 2021-02-16 11:38 | PC.PHAR ---
PT STATES HE TAKES CARE OF HIS OWN MEDICATIONS-PT STATES HE PICKED UP HIS LEVEMIR FLEXTOUCH BUT HASNT STARTED USING IT RX FILLED ON 02/03/21 FOR 6 UNITS DAILY-NOTES ARE MADE IN THE PHARMACY COMMENTS
[2021-02-16 12:23] LABS: Basophils % 0.3 %; Eosinophils % 0.1 %; Hematocrit 36.1 % (42.0-52.0); Hemoglobin 9.9 g/dL (11.7-16.6); Lymphocytes # 1.1 10^3/uL (0.8-4.8); Lymphocytes % 12.4 %; Mean Corpuscular HGB Conc 27.4 g/dL (30.0-36.0); Mean Corpuscular Hemoglobin 22.5 pg (28.0-34.0); Mean Platelet Volume 10.2 fL (7.4-10.4); Monocytes # 0.6 10^3/uL (0.2-0.9); Monocytes % 6.8 %; Neutrophils # 6.91 10^3/uL (1.8-7.7); Neutrophils % 80.2 %; Nucleated Red Blood Cells % 0 %; Platelet Count 253 10^3/cmm (130-400); Red Cell Distribution Width 19.4 % (12.1-15.1); White Blood Count 8.6 10^3/uL (4.0-10.0)
[2021-02-16 12:37] LABS: D Dimer 0.59 ug/mIFEU (0-0.59)
[2021-02-16 12:50] LABS: Troponin(5th) Baseline 31 ng/L (0-15)
[2021-02-16 12:52] LABS: Alanine Aminotransferase 34 U/L (0-41); Albumin Level 3.5 g/dL (3.5-5.2); Alkaline Phosphatase 149 IU/L (40-130); Anion Gap 15.4 (5-19); Aspartate Amino Transferase 23 U/L (0-40); Blood Urea Nitrogen 17 mg/dL (6-20); Calcium 8.6 mg/dL (8.5-10.5); Carbon Dioxide 28 mmol/L (22-29); Chloride 103 mmol/L (98-107); Globulin 2.8 g/dL (1.3-4.6); Glomerular Filtration Rate 90.1 mL/min (90-130); Glucose 161 mg/dL (65-115); Lipase 22 U/L (13-60); NT Pro B Type Natriuretic Pept 1483 pg/mL (0-125); Osmolality Calculated 299 mOsm/kg (285-295); Potassium 4.4 mmol/L (3.5-5.1); Sodium 142 mmol/L (136-145); Total Bilirubin 0.9 mg/dL (0.15-1.2); Total Protein 6.3 g/dL (6.6-8.7)
[2021-02-16 13:09] LABS: SARS Covid-2 Antigen Negative (Negative)
--- NOTE | 2021-02-16 13:19 | ECG_ITS ---
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 Measurements Intervals [place] Rate: 74 P: 80 [place]: 172 QRS: 80 QRSD: 94 T: 107 QT: 378 QTc: 421 Interpretive Statements SINUS RHYTHM POSSIBLE RIGHT VENTRICULAR CONDUCTION DELAY [RSR (QR) IN V1/V2] NONSPECIFIC T-WAVE ABNORMALITY Compared to ECG 02/16/2021 11:58:12 T-wave abnormality now present Incomplete right bundle-branch block no longer present Electronically Signed On 02-17-2021 10:00:55 CDT by Crys Diggs M.D. [id number]
[2021-02-16 14:56] LABS: Troponin 5 2HR 31.99 ng/L (0-15); Troponin 5 2HR Delta 0.99 ABS# (0-10)
[2021-02-16] MEDS: levofloxacin-dextrose 5 % 500 MG/100 ML PREMIX 100 MG IV (15:30)
[2021-02-16 17:09] VITALS: BP 134/57; PULSE 82; RESP 20; O2SAT 93
== END 2021-02-16 17:11 | disposition home or self-care (01) ==
PROVIDERS: Emergency Provider Family Medicine; PCP Family Medicine
DX: J18.9 Pneumonia, unspecified organism (principal); I11.0 Hypertensive heart disease with heart failure; I50.9 Heart failure, unspecified; E11.9 Type 2 diabetes mellitus without complications; J45.909 Unspecified asthma, uncomplicated; I69.352 Hemiplegia and hemiparesis following cerebral infarction affecting left dominant side; E78.2 Mixed hyperlipidemia; G47.33 Obstructive sleep apnea (adult) (pediatric); E66.01 Morbid (severe) obesity due to excess calories; Z79.84 Long term (current) use of oral hypoglycemic drugs; Z79.82 Long term (current) use of aspirin
CPT/HCPCS: 71045; 80053; 83690; 83880; 84484; 85025; 85378; 87426; 93005; 96365; 99284; J1956

== ENCOUNTER → 2021-03-21 10:25 | Outpatient (BNVA) | payer MEDICAID, SELFPAY | PROVIDERS: PCP Family Medicine; Visit Provider Counselor Professional | DX: F33.1 Major depressive disorder, recurrent, moderate (principal) | CPT/HCPCS: 90834 ==

== ENCOUNTER 2021-04-22 16:02 | Emergency (ER) | payer MEDICAID, SELFPAY ==
[2021-04-22 16:22] VITALS: BP 166/57; PULSE 81; RESP 22; TEMP 37.3; O2SAT 93; BMI 62.3
--- NOTE | 2021-04-22 16:30 | CTR_ITS ---
PROCEDURE INFORMATION: Exam: CT Head Without Contrast Exam date and time: 04/22/2021 4:30 PM Age: 51 years old Clinical indication: Weakness, extremity; Left; Patient HX: HX of stroke C/O lue deficits for a while; Additional info: Numbness tingling more than ` 24 hours TECHNIQUE: Imaging protocol: Computed tomography of the head without contrast. Radiation optimization: All CT scans at this facility use at least one of these dose optimization techniques: automated exposure control; mA and/or kV adjustment per patient size (includes targeted exams where dose is matched to clinical indication); or iterative reconstruction. COMPARISON: CT head wo con* [id number] 01/25/2020 11:13 PM RADIATION DOSE METRICS: Total DLP (mGy-cm): 1079.2 FINDINGS: Brain: Small right frontal and left occipital chronic infarctions are again noted. No hemorrhage or evidence of acute infarction is seen. Cerebral ventricles: No ventriculomegaly. Paranasal sinuses: Visualized sinuses are unremarkable. No fluid levels. Mastoid air cells: Visualized mastoid air cells are well aerated. Bones/joints: Unremarkable. No acute fracture. Soft tissues: Unremarkable. CT/CT head wo con* [id number] IMPRESSION: No acute intracranial abnormality. Radiation Dose CTDIVOL = (mGy): DLP = 1079.2 (mGy-cm)
[2021-04-22 18:29] VITALS: BP 173/74; PULSE 67; RESP 22; O2SAT 95
[2021-04-22 18:44] LABS: Basophils % 0.4 %; Eosinophils % 0.4 %; Hematocrit 37.5 % (42.0-52.0); Hemoglobin 10.1 g/dL (11.7-16.6); Lymphocytes # 1.2 10^3/uL (0.8-4.8); Mean Corpuscular HGB Conc 26.9 g/dL (30.0-36.0); Mean Corpuscular Hemoglobin 21.9 pg (28.0-34.0); Mean Corpuscular Volume 81.3 fl (80-94); Mean Platelet Volume 8.7 fL (7.4-10.4); Monocytes # 0.4 10^3/uL (0.2-0.9); Monocytes % 6.4 %; Neutrophils % 74.4 %; Nucleated Red Blood Cells % 0 %; Platelet Count 250 10^3/cmm (130-400); Red Blood Count 4.61 10^6/uL (4.1-5.3); Red Cell Distribution Width 19.9 % (12.1-15.1); White Blood Count 6.9 10^3/uL (4.0-10.0)
[2021-04-22 19:02] LABS: Alanine Aminotransferase 33 U/L (0-41); Albumin Level 3.3 g/dL (3.5-5.2); Alkaline Phosphatase 202 IU/L (40-130); Blood Urea Nitrogen 18 mg/dL (6-20); Calcium 9.1 mg/dL (8.5-10.5); Carbon Dioxide 33 mmol/L (22-29); Chloride 99 mmol/L (98-107); Globulin 3.5 g/dL (1.3-4.6); Glomerular Filtration Rate 89.7 mL/min (90-130); Glucose 110 mg/dL (65-115); Osmolality Calculated 293 mOsm/kg (285-295); Sodium 140 mmol/L (136-145); Total Bilirubin 1.1 mg/dL (0.15-1.2); Total Protein 6.8 g/dL (6.6-8.7)
[2021-04-22 19:08] VITALS: BP 139/61; PULSE 67; RESP 17; O2SAT 97
[2021-04-22 19:25] LABS: Anion Gap 11.6 (5-19); Aspartate Amino Transferase 32 U/L (0-40); Potassium 3.6 mmol/L (3.5-5.1)
--- NOTE | 2021-04-22 19:28 | W.ED.SOB ---
HPI - SOB/Dyspnea General: Chief Complaint: Shortness of Breath/Dyspnea Stated Complaint: L ARM NUMBNESS, SOB Time Seen by Provider: 04/22/21 19:27 History of Present Illness: HPI Narrative: 51-year-old male patient comes in today for concerns of some numbness and tingling in the arms. Patient does have a history of CVA and type 1 diabetes. Patient reports that he has been doing well at home except for some increased shortness of breath and mild hypoxia. Patient has had to have oxygen at home before but had lost weight and he did not require it anymore. Patient states that has been gaining weight back and since gaining weight back has become more hypoxic at times. Patient also was concerned about a rash to his left forearm, and some dysuria. Review of Systems General: Reports: 10 or more systems reviewed and unremarkable except in HPI and below Resp: Reports: dyspnea : Reports: difficulty urinating Skin/Breast: Reports: other (Rash left forearm) [facility] ED PFSH: Medical History (Updated 04/22/21 @ 21:02 by Edgar Parikh [facility]) Anemia -has chronic iron deficiency anemia, baseline Hg is around 9-10 -stable H/H -was previously on iron supplementation CHF (congestive heart failure) -Echo (07/2019): EF=68%, normal diastolic function, no RWMA -on oral lasix -no acute exacerbation currently Decubitus ulcer limited to breakdown of skin (stage 2) Diabetes -NIDDM type II -A1c (11/2019): 8.2 -Accuchecks, ISS, hypoglycemia precautions -consistent carb diet -anticipate hyperglycemia with steroid use Gout Hyperlipemia, mixed Hypertension -VSS; continue to monitor -continue oral antihypertensives Morbid (severe) obesity due to excess calories OPAL (obstructive sleep apnea) -in the process of getting CPAP set up Pneumonia Psychiatric care Transient cerebral ischemia Surgical History History of adenoidectomy History of hernia repair History of tonsillectomy History of umbilical hernia repair Family History Mother Hypertension CAD (coronary artery disease) Stroke Social History Smoking and tobacco status: never smoked Second hand smoke exposure: Yes Alcohol intake: never Adopted: No Caregiver/support person: No Lives independently: Yes Household members: family and friend(s) Housing: Manufactured/Mobile home Marital status: Single Number of children: 0 Number of grandchildren: 0 Highest education level completed: 8th Grade service: No Current occupational status: disabled Pets and animals: No History of recent travel: No Leisure activites: other Leisure activities details: play card games Sexually active: No Current gender identity: Male Yolanda/Mu-Ism: Other Special yolanda needs: No Agree to transfusion: Yes Financial difficulty paying for basics: Hard Physical Exam Const: COMMON NORMALS: no acute distress and patient oriented x3 GENERAL APPEARANCE: cooperative HENMT: COMMON NORMALS: normocephalic and Normal external nose present HEAD & SCALP: normal to inspection and normocephalic NOSE: Normal external nose present MOUTH: Normal oral and palatal mucosa present Eye: GENERAL EYE: appearance normal, both eyes and all related structures Neck/C-Spine: COMMON NORMALS: full ROM Lymph: LYMPHATIC: no lymphadenopathy noted Chest: COMMONS NORMALS: normal inspection of the chest Resp: COMMON NORMALS: normal respiratory effort EFFORT & INSPECTION: Yes able to speak in complete sentences AUSCULTATION: diminished lung sounds Cardio: COMMON NORMALS: regular rate and regular rhythm RATE: regular rate RHYTHM: regular rhythm GI: COMMON NORMALS: non-tender Back/Pelvis: COMMON NORMALS: thoracic and lumbar spine normal to inspection Extremity: COMMON NORMALS: normal to inspection Neuro: COMMON NORMALS: patient oriented x3 and moves all extremities Psych: COMMON NORMALS: mental status grossly normal and cooperative Skin: COMMON NORMALS: no rashes or lesions noted GENERAL SKIN EXAM: no rashes or lesions noted Course Vital Signs: Vital signs: Vital Signs Temperature 99.1 F 04/22/21 16:22 Pulse Rate 67 04/22/21 19:08 Respiratory Rate 17 04/22/21 19:08 Blood Pressure 139/61 04/22/21 19:08 Pulse Oximetry 97 04/22/21 19:08 MDM - SOB/Dyspnea MDM Narrative: Medical decision making narrative: 51-year-old male patient with a history of diabetes type 1, and cerebrovascular disease. Comes in today for some complaints of numbness in the extremities. Patient also reported some concerns of difficulty with urination and increased dyspnea with exertion. On exam patient had decreased breath sounds throughout. Skin was warm and dry. Vital signs were normal. Patient did have some mild hypoxia with exertion in the emergency room and was placed on some oxygen. Patient reports that he has had a history of having to use oxygen at home. Differential diagnosis includes but not limited to polyneuropathy due to CVA or diabetes, UTI, pickwickian syndrome. Urinalysis was negative. CBC noted some mild anemia. CMP was unremarkable. I recommended patient be evaluated for home oxygen he did not want to wait in the emergency room for this and would follow-up with primary care. Urinalysis was unremarkable and did not show signs of significant infection at this time. Chest x-ray was unremarkable when compared to previous exam. Recommended patient follow-up with primary care for further evaluation or return to the ER for worsening symptoms. Patient was agreeable to plan. Lab Data: Labs: Lab Results 04/22/21 04/22/21 04/22/21 18:38 18:38 20:02 WBC 6.9 10^3/uL 10^3/ uL (4.0-10.0) RBC 4.61 10^6/uL 10^6 /uL (4.1-5.3) Hgb 10.1 g/dL L g/dL (11.7-16.6) Hct 37.5 % L % (42.0-52.0) MCV 81.3 fl fl (80-94) MCH 21.9 pg L pg (28.0-34.0) MCHC 26.9 g/dL L g/dL (30.0-36.0) RDW 19.9 % H % (12.1-15.1) Plt Count 250 10^3/cmm 10^3 /cmm (130-400) MPV 8.7 fL fL (7.4-10.4) Neut % (Auto) 74.4 % % Lymph % (Auto) 18.0 % % [place] % (Auto) 6.4 % % Eos % (Auto) 0.4 % % Baso % (Auto) 0.4 % % Neut # (Auto) 5.10 10^3/uL 10^3 /uL (1.8-7.7) Lymph # (Auto) 1.2 10^3/uL 10^3/ uL (0.8-4.8) [place] # (Auto) 0.4 10^3/uL 10^3/ uL (0.2-0.9) Eos # (Auto) 0.0 10^3/uL 10^3/ uL (0.0-0.8) Baso # (Auto) 0.0 10^3/uL 10^3/ uL (0.0-0.1) Nucleated RBC % (a uto) 0 % % Nucleated RBCs # 0.0 /100WBC /100W BC Sodium 140 mmol/L mmol/L (136-145) Potassium 3.6 mmol/L mmol/L (3.5-5.1) Chloride 99 mmol/L mmol/L (98-107) Carbon Dioxide 33 mmol/L H mmol/ L (22-29) Anion Gap 11.6 (5-19) BUN 18 mg/dL mg/dL (6-20) Creatinine 0.9 mg/dL mg/dL (0.7-1.2) GFR Calculation 89.7 mL/min L mL/ min (90-130) Glucose 110 mg/dL mg/dL (65-115) Calculated Osmolal ity 293 mOsm/kg mOsm/ kg (285-295) Calcium 9.1 mg/dL mg/dL (8.5-10.5) Total Bilirubin 1.1 mg/dL mg/dL (0.15-1.2) AST 32 U/L U/L (0-40) ALT 33 U/L U/L (0-41) Alkaline Phosphata se 202 IU/L H IU/L (40-130) Total Protein 6.8 g/dL g/dL (6.6-8.7) Albumin 3.3 g/dL L g/dL (3.5-5.2) Globulin 3.5 g/dL g/dL (1.3-4.6) Urine Color Yellow (Yellow) Urine Appearance Clear (CLEAR) Urine pH 6 (5-7) Ur Specific Gravit y 1.010 (1.005-1.030) Urine Protein 1+ H (Negative) Urine Glucose (UA) Norm (Normal) Urine Ketones Negative (Negative) Urine Blood Neg (Negative) Urine Nitrate Negative (Negative) Urine Bilirubin Neg (Negative) Urine Urobilinogen 1 mg/dL H mg/dL (Negative) Ur Leukocyte Maggie ase Negative (Negative) Urine RBC 0-4 /hpf H /hpf (0-2) Urine WBC 0-4 /hpf H /hpf (0-5) Ur Squamous Epith Cells 0-4 /hpf H /hpf (0-5) Amorphous Sediment Not Reportable Urine Bacteria Trace /hpf /hpf (NONE) Discharge Plan Discharge Patient Disposition: Home Clinical Impression: Chronic dyspnea Peripheral neuropathy Qualifiers: Peripheral neuropathy type: polyneuropathy, unspecified Qualified Code(s): G62.9 - Polyneuropathy, unspecified Condition: Stable Prescriptions: No Action (DME) oxygen-air delivery systems Device See Rx Instructions .ROUTE .MEDSUPPLY Qty: 1 RF: 0 albuterol sulfate 90 mcg/actuation HFA aerosol inhaler 2 puff inhalation Q6H PRN (Reason: Shortness Of Breath) RF: 0 atorvastatin [Lipitor] 80 mg Tablet 80 mg PO BEDTIME RF: 0 omeprazole 40 mg Capsule,Delayed Release(Dr/Ec) 40 mg PO QAM RF: 0 montelukast [Singulair] 10 mg Tablet 10 mg PO BEDTIME RF: 0 furosemide 40 mg tablet 40 mg PO QAM RF: 0 glipizide 10 mg Tablet Extended Release 24hr 10 mg PO BID RF: 0 aspirin 81 mg Tablet,Delayed Release (Dr/Ec) 81 mg PO QAM RF: 0 atenolol 100 mg tablet 100 mg PO QAM RF: 0 Dulera 200-5 mcg/actuation HFA aerosol inhaler 2 puff INHALATION BID RF: 0 fluconazole 150 mg tablet 150 mg PO Q7D RF: 0 allopurinol 100 mg tablet 100 mg PO QAM RF: 0 lisinopril 5 mg tablet 5 mg PO QAM RF: 0 Levemir FlexTouch U-100 Insuln 100 unit/mL (3 mL) insulin pen 6 unit SUBCUT DAILY RF: 0 Janumet 50-1,000 mg tablet 1 tab PO BID RF: 0 Discharge Orders: Discharge ED (Routine); Ordered 04/22/21 Ordered By: Edgar Parikh Referrals: Stewart Rosario MD [Primary Care Provider] - Discharge Diet: Usual diet Discharge Activity: Increase activity as tolerated Patient Instructions: Dyspnea Scale and Exercise (ED), Opioid Safety Activity Restrictions/Additional Instructions: Home and rest. Follow-up with primary care in the next week for further evaluation and treatment. Return to the ER for high fever, worsening shortness of breath, or new concerns. Coding Level of Care Code ED Explosive Ordnance Specialist for Chg Fwd Exam Comprehensive
[2021-04-22 20:25] LABS: Add Urine Microscopic? YES; Bacteria Urine TRACE /hpf; Bilirubin Urine Neg (Negative); Blood Urine Neg (Negative); Glucose Urine UA Norm (Normal); Ketones Urine Negative (Negative); Leukocyte Esterase Urine Negative (Negative); Nitrate Urine Negative (Negative); Protein Urine 1+ (Negative); RBC Urine 0-4 /hpf (0-2); Squamous Epithelial Cell Urine 0-4 /hpf (0-5); Urine Appearance Clear (CLEAR); Urine Color Yellow (Yellow); Urobilinogen Urine 1 mg/dL (Negative); WBC Urine 0-4 /hpf (0-5); pH Urine 6 (5-7)
[2021-04-22 20:26] LABS: Add Urine Culture? No
--- NOTE | 2021-04-22 20:27 | XRR_ITS ---
PROCEDURE INFORMATION: Exam: XR Chest Exam date and time: 04/22/2021 8:27 PM Age: 51 years old Clinical indication: Shortness of breath; Additional info: Dyspnea TECHNIQUE: Imaging protocol: XR of the chest. Views: 1 view. COMPARISON: CR XR chest 1V portable [id number] 02/16/2021 11:59 AM FINDINGS: Lungs: Mild pulmonary venous congestion is appreciated. No acute airspace process is seen. The right hemidiaphragm is mildly elevated. Pleural spaces: Unremarkable. No pleural effusion. No pneumothorax. Heart/Mediastinum: Unremarkable. No cardiomegaly. Bones/joints: Unremarkable. XR/XR chest 1V portable [id number] IMPRESSION: Mild pulmonary venous congestion. Radiation Dose CTDIVOL = (mGy): DLP = (mGy-cm)
[2021-04-22 21:13] VITALS: BP 174/84; PULSE 76; RESP 26; O2SAT 93
== END 2021-04-22 21:14 | disposition home or self-care (01) ==
PROVIDERS: Family Medicine; Emergency Provider Nurse Practitioner Family; PCP Family Medicine
DX: E11.42 Type 2 diabetes mellitus with diabetic polyneuropathy (principal); Z79.84 Long term (current) use of oral hypoglycemic drugs; Z79.82 Long term (current) use of aspirin; Z79.4 Long term (current) use of insulin; E78.2 Mixed hyperlipidemia; I10 Essential (primary) hypertension; Z77.22 Contact with and (suspected) exposure to environmental tobacco smoke (acute) (chronic)
CPT/HCPCS: 70450; 71045; 80053; 81001; 85025; 99283

== ENCOUNTER 2021-05-01 12:11 | Emergency (ER) | payer MEDICAID, SELFPAY ==
[2021-05-01 12:15] VITALS: BP 152/63; PULSE 73; RESP 22; TEMP 37.1; O2SAT 95; BMI 66.1
--- NOTE | 2021-05-01 12:26 | W.ED.GENADLT ---
HPI - General Adult General: Chief complaint: Nausea/Vomiting/Diarrhea Stated complaint: DIARRHEA Time Seen by Provider: 05/01/21 12:14 History of Present Illness: HPI narrative: Patient is a 51-year-old male with a history of morbid obesity, diabetes, hypertension who presents emergency room with diarrhea x 1 episode. Patient tells me that he is not be able to operate his car for the last 2-week and has been homebound. Since then, patient has had depression. He thinks that 30 was related to my depression. , Patient reports tolerating p.o. without difficulty. Denies any abdominal complaints, fever/chills, chest pain, shortness breath, palpitation or lightheadedness. Patient reports any melena or hematochezia. Of note, patient was started recently on fluconazole for groin candidiasis infection. Patient denies any SI or HI today. Onset: earlier today Duration:ongoing Location:home Severity:mild Review of Systems Narrative: Constitutional: No fever, no chills. HEENT: No vision changes CV: No chest pain, no palpitations PULM: no cough, no dyspnea. GI: No abdominal pain, -N/-V/+D. : No dysuria MSKEL: No muscle pain SKIN: No new rashes, no lesions. NEURO: No headache, no focal weakness. HEME: No visible bruises PSYCH: Normal mood [facility] ED PFSH: Medical History (Updated 05/01/21 @ 12:26 by Vicenta Acosta MD) Anemia -has chronic iron deficiency anemia, baseline Hg is around 9-10 -stable H/H -was previously on iron supplementation CHF (congestive heart failure) -Echo (07/2019): EF=68%, normal diastolic function, no RWMA -on oral lasix -no acute exacerbation currently Decubitus ulcer limited to breakdown of skin (stage 2) Diabetes -NIDDM type II -A1c (11/2019): 8.2 -Accuchecks, ISS, hypoglycemia precautions -consistent carb diet -anticipate hyperglycemia with steroid use Gout Hyperlipemia, mixed Hypertension -VSS; continue to monitor -continue oral antihypertensives Morbid (severe) obesity due to excess calories OPAL (obstructive sleep apnea) -in the process of getting CPAP set up Pneumonia Psychiatric care Transient cerebral ischemia Surgical History (Reviewed 02/16/21 @ 11:27 by Oswaldo Starkey MD, [facility] [place]) History of adenoidectomy History of hernia repair History of tonsillectomy History of umbilical hernia repair Family History (Reviewed 02/16/21 @ 11:27 by Oswaldo Starkey MD, [facility] [place]) Mother Hypertension CAD (coronary artery disease) Stroke Social History (Reviewed 02/16/21 @ 11:27 by Oswaldo Starkey MD, [facility] [place]) Smoking and tobacco status: never smoked Second hand smoke exposure: Yes Alcohol intake: never Adopted: No Caregiver/support person: No Lives independently: Yes Household members: family and friend(s) Housing: Manufactured/Mobile home Marital status: Single Number of children: 0 Number of grandchildren: 0 Highest education level completed: 8th Grade service: No Current occupational status: disabled Pets and animals: No History of recent travel: No Leisure activites: other Leisure activities details: play card games Sexually active: No Current gender identity: Male Yolanda/Jainism: Other Special yolanda needs: No Agree to transfusion: Yes Financial difficulty paying for basics: Hard Physical Exam Narrative: EXAM NARRATIVE: Head: Atraumatic Eyes: PERRL, conjunctiva without injection ENT: Mucous membrane moist NECK: Supple, ROM intact LUNGS: LCTAB, no crackles/rhonchi CV: RRR ABDOMEN: Soft, no focal TTP. NO guarding rebound, guarding, rigidity. No CVA tenderness to percussion. Neg Damon/Neg McBurney's point tenderness, no suprabupic tenderness to palpation. EXTREMITY: Normal ROM SKIN: +mild erythema around the groin involving the groin fold, no elbow tenderness, ecchymosis, crepitus along the site in the groin NEURO: Awake and alert, no focal motor deficits PSYCH: Normal mood and affect Course Vital Signs: Vital signs: Vital Signs Temperature 98.7 F 05/01/21 12:15 Pulse Rate 73 05/01/21 15:01 Respiratory Rate 18 05/01/21 15:01 Blood Pressure 184/84 05/01/21 15:01 Pulse Oximetry 96 05/01/21 15:01 MDM - General Adult MDM Narrative: Medical decision making narrative: 51-year-old male with history of diabetes, hypertension, CHF who presents emergency room for evaluation of diarrhea x1 episode in setting depression. On exam, patient has mild erythema in the groin site and is currently getting treatment for fluconazole. Do not suspect necrotizing soft tissue infection in the groin. Workup: CBC, CMP, lipase, UA Intervention IVF, p.o. challenge Work-up within normal limit. Patient chronically has hemoglobin around 10. Patient is able to tolerate p.o. in the emergency room for GI cocktail. Patient reassures me that he is not feeling suicidal or homicidal. Patient denies any wish at this time. Rx maalox and pepcid Disposition: Discharge. Patient counseled regarding diagnostic impression, treatment plan. Patient given ED strict return precautions to return for continuation, worsening, or development of new symptoms. Instructed to f/u w/ PCP regarding symptoms today. Patient verbalized understanding. Lab Data: Labs: Lab Results 05/01/21 05/01/21 05/01/21 13:37 13:37 13:54 WBC 6.8 10^3/uL 10^3/ uL (4.0-10.0) RBC 4.52 10^6/uL 10^6 /uL (4.1-5.3) Hgb 10.0 g/dL L g/dL (11.7-16.6) Hct 37.7 % L % (42.0-52.0) MCV 83.4 fl fl (80-94) MCH 22.1 pg L pg (28.0-34.0) MCHC 26.5 g/dL L g/dL (30.0-36.0) RDW 20.8 % H % (12.1-15.1) Plt Count 278 10^3/cmm 10^3 /cmm (130-400) MPV 9.6 fL fL (7.4-10.4) Neut % (Auto) 79.5 % % Lymph % (Auto) 11.7 % % [place] % (Auto) 7.8 % % Eos % (Auto) 0.4 % % Baso % (Auto) 0.3 % % Neut # (Auto) 5.43 10^3/uL 10^3 /uL (1.8-7.7) Lymph # (Auto) 0.8 10^3/uL 10^3/ uL (0.8-4.8) [place] # (Auto) 0.5 10^3/uL 10^3/ uL (0.2-0.9) Eos # (Auto) 0.0 10^3/uL 10^3/ uL (0.0-0.8) Baso # (Auto) 0.0 10^3/uL 10^3/ uL (0.0-0.1) Nucleated RBC % (a uto) 0 % % Nucleated RBCs # 0.0 /100WBC /100W BC Sodium 144 mmol/L mmol/L (136-145) Potassium 3.8 mmol/L mmol/L (3.5-5.1) Chloride 100 mmol/L mmol/L (98-107) Carbon Dioxide 37 mmol/L H mmol/ L (22-29) Anion Gap 10.8 (5-19) BUN 14 mg/dL mg/dL (6-20) Creatinine 1.0 mg/dL mg/dL (0.7-1.2) GFR Calculation 79.4 mL/min L mL/ min (90-130) Glucose 130 mg/dL H mg/dL (65-115) Calculated Osmolal ity 300 mOsm/kg H mOs m/kg (285-295) Calcium 9.0 mg/dL mg/dL (8.5-10.5) Total Bilirubin 1.5 mg/dL H mg/dL (0.15-1.2) AST 15 U/L U/L (0-40) ALT 21 U/L U/L (0-41) Alkaline Phosphata se 183 IU/L H IU/L (40-130) Total Protein 6.9 g/dL g/dL (6.6-8.7) Albumin 3.4 g/dL L g/dL (3.5-5.2) Globulin 3.5 g/dL g/dL (1.3-4.6) Lipase 28 U/L U/L (13-60) Urine Color Colorless (Yellow) Urine Appearance Clear (CLEAR) Urine pH 7 (5-7) Ur Specific Gravit y 1.010 (1.005-1.030) Urine Protein Neg (Negative) Urine Glucose (UA) Norm (Normal) Urine Ketones Negative (Negative) Urine Blood Neg (Negative) Urine Nitrate Negative (Negative) Urine Bilirubin Neg (Negative) Urine Urobilinogen Norm mg/dL mg/dL (Negative) Ur Leukocyte Maggie ase Negative (Negative) Discharge Plan Discharge Patient Disposition: Home Clinical Impression: Diarrhea, Depression Condition: Stable Prescriptions: New Pepcid 20 mg tablet 20 mg PO BID PRN (Reason: pain) 42 Days Qty: 84 RF: 0 Maalox Advanced 1,000-60 mg tablet,chewable 1 tab PO TID PRN (Reason: nausea and vomiting) 10 Days Qty: 30 RF: 0 No Action (DME) oxygen-air delivery systems Device See Rx Instructions .ROUTE .MEDSUPPLY Qty: 1 RF: 0 albuterol sulfate 90 mcg/actuation HFA aerosol inhaler 2 puff inhalation Q6H PRN (Reason: Shortness Of Breath) RF: 0 atorvastatin [Lipitor] 80 mg Tablet 80 mg PO BEDTIME RF: 0 omeprazole 40 mg Capsule,Delayed Release(Dr/Ec) 40 mg PO QAM RF: 0 montelukast [Singulair] 10 mg Tablet 10 mg PO BEDTIME RF: 0 furosemide 40 mg tablet 40 mg PO QAM RF: 0 glipizide 10 mg Tablet Extended Release 24hr 10 mg PO BID RF: 0 aspirin 81 mg Tablet,Delayed Release (Dr/Ec) 81 mg PO QAM RF: 0 atenolol 100 mg tablet 100 mg PO QAM RF: 0 Dulera 200-5 mcg/actuation HFA aerosol inhaler 2 puff INHALATION BID RF: 0 fluconazole 150 mg tablet 150 mg PO Q7D RF: 0 allopurinol 100 mg tablet 100 mg PO QAM RF: 0 lisinopril 5 mg tablet 5 mg PO QAM RF: 0 Levemir FlexTouch U-100 Insuln 100 unit/mL (3 mL) insulin pen 6 unit SUBCUT DAILY RF: 0 Janumet 50-1,000 mg tablet 1 tab PO BID RF: 0 Discharge Orders: Discharge ED (Routine); Ordered 05/01/21 Ordered By: Vicenta Acosta Referrals: Stewart Rosario MD [Primary Care Provider] - Discharge Diet: Advance as tolerated Discharge Activity: Resume usual activity Patient Instructions: Diarrhea - Adult Activity Restrictions/Additional Instructions: Come back to the emergency room for any abdominal pain, difficulty tolerating food, blood in the stool, worsening diarrhea, dehydration, or any new or concerning complaints. Coding Level of Care Code ED Senior Applications Architect for Zac [employer]ett
[2021-05-01] MEDS: sodium chloride 0.9% 1,000 ML 999 ML IV ×2 (12:37)
[2021-05-01 13:44] LABS: Basophils % 0.3 %; Eosinophils % 0.4 %; Hematocrit 37.7 % (42.0-52.0); Lymphocytes # 0.8 10^3/uL (0.8-4.8); Lymphocytes % 11.7 %; Mean Corpuscular HGB Conc 26.5 g/dL (30.0-36.0); Mean Corpuscular Hemoglobin 22.1 pg (28.0-34.0); Mean Corpuscular Volume 83.4 fl (80-94); Mean Platelet Volume 9.6 fL (7.4-10.4); Monocytes # 0.5 10^3/uL (0.2-0.9); Monocytes % 7.8 %; Neutrophils # 5.43 10^3/uL (1.8-7.7); Neutrophils % 79.5 %; Nucleated Red Blood Cells % 0 %; Platelet Count 278 10^3/cmm (130-400); Red Blood Count 4.52 10^6/uL (4.1-5.3); Red Cell Distribution Width 20.8 % (12.1-15.1); White Blood Count 6.8 10^3/uL (4.0-10.0)
[2021-05-01 14:03] LABS: Add Urine Microscopic? NO; Charge for UA Resulting for Rev
[2021-05-01 14:08] LABS: Bilirubin Urine Neg (Negative); Blood Urine Neg (Negative); Glucose Urine UA Norm (Normal); Ketones Urine Negative (Negative); Leukocyte Esterase Urine Negative (Negative); Nitrate Urine Negative (Negative); Protein Urine Neg (Negative); Urine Appearance Clear (CLEAR); Urine Color Colorless (Yellow); Urobilinogen Urine Norm (Negative); pH Urine 7 (5-7)
[2021-05-01 14:22] LABS: Alanine Aminotransferase 21 U/L (0-41); Albumin Level 3.4 g/dL (3.5-5.2); Alkaline Phosphatase 183 IU/L (40-130); Anion Gap 10.8 (5-19); Aspartate Amino Transferase 15 U/L (0-40); Blood Urea Nitrogen 14 mg/dL (6-20); Carbon Dioxide 37 mmol/L (22-29); Chloride 100 mmol/L (98-107); Globulin 3.5 g/dL (1.3-4.6); Glomerular Filtration Rate 79.4 mL/min (90-130); Glucose 130 mg/dL (65-115); Lipase 28 U/L (13-60); Osmolality Calculated 300 mOsm/kg (285-295); Potassium 3.8 mmol/L (3.5-5.1); Sodium 144 mmol/L (136-145); Total Bilirubin 1.5 mg/dL (0.15-1.2); Total Protein 6.9 g/dL (6.6-8.7)
[2021-05-01 15:01] VITALS: BP 184/84; PULSE 73; RESP 18; O2SAT 96
== END 2021-05-01 15:02 | disposition home or self-care (01) ==
PROVIDERS: Emergency Provider Emergency Medicine; PCP Family Medicine
DX: R19.7 Diarrhea, unspecified (principal); F32.A Depression, unspecified; E66.01 Morbid (severe) obesity due to excess calories; Z68.44 Body mass index [BMI] 60.0-69.9, adult; I11.0 Hypertensive heart disease with heart failure; I50.9 Heart failure, unspecified; E11.9 Type 2 diabetes mellitus without complications; D64.9 Anemia, unspecified; Z79.82 Long term (current) use of aspirin; Z79.84 Long term (current) use of oral hypoglycemic drugs; Z79.899 Other long term (current) drug therapy
CPT/HCPCS: 36415; 80053; 81003; 83690; 85025; 96360; 96361; 99283; J7030

== ENCOUNTER 2021-06-06 12:07 | Emergency (ER) | payer MEDICAID, SELFPAY ==
[2021-06-06 12:13] VITALS: BP 154/66; PULSE 73; RESP 21; TEMP 36.4; O2SAT 92; BMI 66.3
--- NOTE | 2021-06-06 12:14 | XRR_ITS ---
PROCEDURE INFORMATION: Exam: XR Chest Exam date and time: 06/06/2021 12:14 PM Age: 51 years old Clinical indication: Dyspnea TECHNIQUE: Imaging protocol: XR of the chest. Views: 1 view. COMPARISON: CR (CHEST, ) 04/22/2021 8:47 PM FINDINGS: Lungs: There is mild pulmonary vascular congestion. No pulmonary consolidation. Pleural spaces: No pleural effusion.. No pneumothorax. Heart/Mediastinum: The cardiac silhouette is approximately unchanged given differences in technique and positioning. No gross evidence of pneumomediastinum. Bones/joints: No gross fracture. XR/XR chest 1V portable [id number] IMPRESSION: Cardiomegaly with mild pulmonary vascular congestion. Radiation Dose CTDIVOL = (mGy): DLP = (mGy-cm)
--- NOTE | 2021-06-06 12:28 | ECG_ITS ---
[facility] Test Date: 2021-06-06 Pat Name: Arnol Guzman Department: Room: Gender: Male [employer] Judge: : 1970 Requested By: Vicenta Acosta Order Number: [id number] Reading MD: JAMIE CAZARES Measurements Intervals [place] Rate: 74 P: 82 [place]: 164 QRS: 93 QRSD: 102 T: 79 QT: 392 QTc: 437 Interpretive Statements SINUS RHYTHM BORDERLINE RIGHT AXIS DEVIATION [QRS AXIS > 90] INCOMPLETE RIGHT BUNDLE BRANCH BLOCK [90+ ms QRS DURATION, TERMINAL R IN V1/V2, 40+ ms S IN I/aVL/V4/V5/V6] No previous ECG available for comparison Electronically Signed On 06-06-2021 12:57:59 ORDAINED MINISTER by JAMIE CAZARES [id number]
--- NOTE | 2021-06-06 12:38 | W.ED.GENADLT ---
HPI - General Adult General: Chief complaint: Chest Pain Stated complaint: sob x 4 days, sore throat Time Seen by Provider: 06/06/21 12:12 History of Present Illness: HPI narrative: Patient is a 51-year-old male with history of type 1 diabetes, CHF, morbid obesity who presents the emergency room with 3 days of intermittent chest pain and shortness of breath. Patient describes an achy nonspecific chest pain with mild shortness of breath is not exertional. Patient denies any pleuritic chest pain, but reports sore throat, left-sided ear pain, and nonproductive cough. Patient also reports generalized weakness and body ache. Patient has persistent urinary symptoms for which she at one point received antibiotics for. Still reports symptoms of dysuria. Patient also reports having a rash in the groin and causing pain. Patient has no fever or chills, other abdominal complaints, nausea/vomiting, diarrhea, melena/hematochezia. Onset: 3 days ago Duration:3 days Location:home Severity:moderate Review of Systems Narrative: Constitutional: No fever, no chills. HEENT: No vision changes, +sore throat/ +L ear pain CV: +chest pain, no palpitations PULM: +cough, +dyspnea. GI: No abdominal pain, no N/V/D. : +dysuria, +groin lesion MSKEL: No muscle pain SKIN: No new rashes, no lesions. NEURO: No headache, no focal weakness. HEME: No visible bruises PSYCH: Normal mood PFSH ED PFSH: Medical History (Updated 06/06/21 @ 13:36 by Vicenta Acosta MD) Anemia -has chronic iron deficiency anemia, baseline Hg is around 9-10 -stable H/H -was previously on iron supplementation CHF (congestive heart failure) -Echo (07/2019): EF=68%, normal diastolic function, no RWMA -on oral lasix -no acute exacerbation currently Decubitus ulcer limited to breakdown of skin (stage 2) Diabetes -NIDDM type II -A1c (11/2019): 8.2 -Accuchecks, ISS, hypoglycemia precautions -consistent carb diet -anticipate hyperglycemia with steroid use Gout Hyperlipemia, mixed Hypertension -VSS; continue to monitor -continue oral antihypertensives Morbid (severe) obesity due to excess calories OPAL (obstructive sleep apnea) -in the process of getting CPAP set up Pneumonia Psychiatric care Transient cerebral ischemia Surgical History (Reviewed 02/16/21 @ 11:27 by [place]aldo Star[place] [facility] [place] History of adenoidectomy History of hernia repair History of tonsillectomy History of umbilical hernia repair Family History (Reviewed 02/16/21 @ 11:27 by Oswaldo Starkey [place] [facility] [place] Mother Hypertension CAD (coronary artery disease) Stroke Social History (Reviewed 02/16/21 @ 11:27 by Oswaldo Starkey [place] [facility] [place] Smoking and tobacco status: never smoked Second hand smoke exposure: Yes Alcohol intake: never Adopted: No Caregiver/support person: No Lives independently: Yes Household members: family and friend(s) Housing: Manufactured/Mobile home Marital status: Single Number of children: 0 Number of grandchildren: 0 Highest education level completed: 8th Grade service: No Current occupational status: disabled Pets and animals: No History of recent travel: No Leisure activites: other Leisure activities details: play card games Sexually active: No Current gender identity: Male Yolanda/Taoist: Other Special yolanda needs: No Agree to transfusion: Yes Financial difficulty paying for basics: Hard Physical Exam Narrative: EXAM NARRATIVE: Head: Atraumatic Eyes: PERRL, conjunctiva without injection ENT: Mucous membrane moist, no pharyngeal erythema/no tonsillar/peritonsillar swelling, no uvelar deveiation, TM intact b/l NECK: Supple, ROM intact, no menginsimus signs LUNGS: LCTAB, no crackles/rhonchi CV: RRR ABDOMEN: Soft, no focal TTP. NO guarding rebound, guarding, rigidity. No CVA tenderness to percussion. Neg Damon/Neg McBurney's point tenderness, no suprabupic tenderness to palpation. EXTREMITY: Normal ROM SKIN: erythematous pruritic rash in the groin NEURO: Awake and alert, no focal motor deficits PSYCH: Normal mood and affect Course Vital Signs: Vital signs: Vital Signs Temperature 97.6 F 06/06/21 12:13 Pulse Rate 73 06/06/21 15:00 Respiratory Rate 18 06/06/21 15:00 Blood Pressure 125/61 06/06/21 15:00 Pulse Oximetry 96 06/06/21 15:00 MDM - General Adult MDM Narrative: Medical decision making narrative: 89-year-old male with history of type 1 diabetes, CHF presenting to the emergency room with cough, ear pain, sore throat, chest pain shortness of breath x3 days. On exam, patient is hemodynamically stable with O2 sat greater than 95% no increased work of breathing. Exam is largely nonfocal other than groin rash. Work-up today includes CBC, BMP, troponin, BNP, Covid, influenza, x-ray chest, EKG On reassessment, patient was found to have cardiomegaly with pulmonary congestion on chest x-ray. Laboratories consistent with mild volume overload. Patient is in no increased work of breathing, has not required more oxygen compared to baseline of 3 L. At the present time, patient received 1 dose of Lasix in the emergency room and is encouraged to continue take his daily diuretics. Patient has no significant increase in weight gain, or otherwise will have signs of volume overload. Patient is also noted to have an anemia of 8.9 this is new compared to baseline of 9-10. I performed a rectal exam which was positive for hemoocult stool. No melena or hematocehzia. I have given patient follow up with Dr. Moura for outpatient colonoscopy. Patient will be started on iron tablets with close followup. I have discussed case with Dr. Boateng who agrees to see patient sooner. Patient's dose of lasix will be increased today to 80mg daily (no 60mg dosage in the ER). Patient aware of this and reassures me that he will follow-up with his primary care provider. Covid swab, influenza negative today. Troponin similar to baseline. EKG is nonischemic. I discussed these findings with patient and instructed patient to have close follow-up PCP should he have any further additional concerns. Patient instructed to come back to the emergency room if any of the symptoms gets worse today. Rx 80mg of lasix PO daily (increased 40mg of Lasix), iron sulfate for hemoocult positive stool and anemia Doubt ACS/PE or other emergent causes of chest pain. No suspicion for aortic dissection given no widened mediastinum, 2+ upper extremity pulses, or tearing pain. No suspicion for PE given no pleuritic chest pain, recent immobilization or surgery hemoptysis, or other VTE risk factors. EKG is non-ischemic. XR normal. Disposition: Discharge. Patient counseled regarding diagnostic impression, treatment plan. Patient given ED strict return precautions to return for continuation, worsening, or development of new symptoms. Instructed to f/u w/ PCP regarding symptoms today. Patient verbalized understanding. Lab Data: Labs: Lab Results 06/06/21 06/06/21 06/06/21 12:37 12:37 12:37 WBC 6.1 10^3/uL 10^3/ uL (4.0-10.0) RBC 3.87 10^6/uL L 10 ^6/uL (4.1-5.3) Hgb 8.9 g/dL L g/dL (11.7-16.6) Hct 33.3 % L % (42.0-52.0) MCV 86.0 fl fl (80-94) MCH 23.0 pg L pg (28.0-34.0) MCHC 26.7 g/dL L g/dL (30.0-36.0) RDW 21.2 % H % (12.1-15.1) Plt Count 276 10^3/cmm 10^3 /cmm (130-400) MPV 9.3 fL fL (7.4-10.4) Neut % (Auto) 80.0 % % Lymph % (Auto) 13.1 % % [place] % (Auto) 5.5 % % Eos % (Auto) 0.8 % % Baso % (Auto) 0.3 % % Neut # (Auto) 4.90 10^3/uL 10^3 /uL (1.8-7.7) Lymph # (Auto) 0.8 10^3/uL 10^3/ uL (0.8-4.8) [place] # (Auto) 0.3 10^3/uL 10^3/ uL (0.2-0.9) Eos # (Auto) 0.1 10^3/uL 10^3/ uL (0.0-0.8) Baso # (Auto) 0.0 10^3/uL 10^3/ uL (0.0-0.1) Nucleated RBC % (a uto) 0 % % Nucleated RBCs # 0.0 /100WBC /100W BC Sodium 141 mmol/L mmol/L (136-145) Potassium 4.1 mmol/L mmol/L (3.5-5.1) Chloride 101 mmol/L mmol/L (98-107) Carbon Dioxide 31 mmol/L H mmol/ L (22-29) Anion Gap 13.1 (5-19) BUN 19 mg/dL mg/dL (6-20) Creatinine 1.2 mg/dL mg/dL (0.7-1.2) GFR Calculation 64.4 mL/min L mL/ min (90-130) Glucose 138 mg/dL H mg/dL (65-115) Calculated Osmolal ity 296 mOsm/kg H mOs m/kg (285-295) Calcium 8.9 mg/dL mg/dL (8.5-10.5) Troponin T Gen 5 n g/L 30 ng/L H ng/L (0-15) NT-Pro-B Natriuret Pep 1998 pg/mL H pg/m L (0-125) Urine Color Urine Appearance Urine pH Ur Specific Gravit y Urine Protein Urine Glucose (UA) Urine Ketones Urine Blood Urine Nitrate Urine Bilirubin Urine Urobilinogen Ur Leukocyte Maggie ase Urine RBC Urine WBC Ur Squamous Epith Cells Amorphous Sediment Urine Bacteria Influenza Type A A g Influenza Type B A g SARS-CoV-2 Ag (Rap id) 06/06/21 06/06/21 06/06/21 12:39 12:58 14:22 WBC RBC Hgb Hct MCV MCH MCHC RDW Plt Count MPV Neut % (Auto) Lymph % (Auto) [place] % (Auto) Eos % (Auto) Baso % (Auto) Neut # (Auto) Lymph # (Auto) [place] # (Auto) Eos # (Auto) Baso # (Auto) Nucleated RBC % (a uto) Nucleated RBCs # Sodium Potassium Chloride Carbon Dioxide Anion Gap BUN Creatinine GFR Calculation Glucose Calculated Osmolal ity Calcium Troponin T Gen 5 n g/L NT-Pro-B Natriuret Pep Urine Color Straw (Yellow) Urine Appearance Clear (CLEAR) Urine pH 5 (5-7) Ur Specific Gravit y 1.015 (1.005-1.030) Urine Protein 1+ H (Negative) Urine Glucose (UA) Norm (Normal) Urine Ketones Negative (Negative) Urine Blood Neg (Negative) Urine Nitrate Negative (Negative) Urine Bilirubin Neg (Negative) Urine Urobilinogen Norm mg/dL mg/dL (Negative) Ur Leukocyte Maggie ase Trace H (Negative) Urine RBC None /hpf /hpf (0-2) Urine WBC Rare /hpf /hpf (0-5) Ur Squamous Epith Cells Rare /hpf /hpf (0-5) Amorphous Sediment Not Reportable Urine Bacteria Trace /hpf /hpf (NONE) Influenza Type A A g Negative (Negative) Influenza Type B A g Negative (Negative) SARS-CoV-2 Ag (Rap id) Negative (Negative) Imaging Data^: Other Imaging: Radiologist's impression: [id number] [place], [place] [address]SYhv ReportSigned Patient: Arnol Guzman #: [id number]: 1970Acct#:[id number]/Sex: 51 / MADM Date: 06/06/21Loc: ERRoom/Bed:Attending Dr: Ordering Provider/Ordering MD: Vicenta Acosta MD Date of Service: 06/06/21 Procedure(s): XR chest 1V portable [id number] Accession Number(s): [id number] Report Number: [id number] PROCEDURE INFORMATION: Exam: XR Chest Exam date and time: 06/06/2021 12:14 PM Age: 51 years old Clinical indication: Dyspnea TECHNIQUE: Imaging protocol: XR of the chest. Views: 1 view. COMPARISON: CR (CHEST, ) 04/22/2021 8:47 PM FINDINGS: Lungs: There is mild pulmonary vascular congestion. No pulmonary consolidation. Pleural spaces: No pleural effusion.. No pneumothorax. Heart/Mediastinum: The cardiac silhouette is approximately unchanged given differences in technique and positioning. No gross evidence of pneumomediastinum. Bones/joints: No gross fracture. XR/XR chest 1V portable [id number] IMPRESSION: Cardiomegaly with mild pulmonary vascular congestion. Radiation Dose CTDIVOL = (mGy): DLP = (mGy-cm) Dictated By:Fer Newtonigned By:Fer Newtonigned Date/Time:06/06/21 1256DD/ 1214 Discharge Plan Discharge Patient Disposition: Home Clinical Impression: Dyspnea, Chest pain, Sore throat, Anemia Condition: Stable Prescriptions: New acetaminophen 500 mg tablet 500 mg PO Q6H PRN (Reason: pain) 5 Days Qty: 20 RF: 0 ferrous sulfate 325 mg (65 mg iron) tablet 325 mg PO BID 10 Days Qty: 20 RF: 0 Lasix 80 mg tablet 80 mg PO DAILY 10 Days Qty: 10 RF: 0 Discontinued furosemide 40 mg tablet 40 mg PO QAM RF: 0 No Action (DME) oxygen-air delivery systems Device See Rx Instructions .ROUTE .MEDSUPPLY Qty: 1 RF: 0 albuterol sulfate 90 mcg/actuation HFA aerosol inhaler 2 puff inhalation Q6H PRN (Reason: Shortness Of Breath) RF: 0 atorvastatin [Lipitor] 80 mg Tablet 80 mg PO BEDTIME RF: 0 omeprazole 40 mg Capsule,Delayed Release(Dr/Ec) 40 mg PO QAM RF: 0 montelukast [Singulair] 10 mg Tablet 10 mg PO BEDTIME RF: 0 glipizide 10 mg Tablet Extended Release 24hr 10 mg PO BID RF: 0 aspirin 81 mg Tablet,Delayed Release (Dr/Ec) 81 mg PO QAM RF: 0 atenolol 100 mg tablet 100 mg PO QAM RF: 0 Dulera 200-5 mcg/actuation HFA aerosol inhaler 2 puff INHALATION BID RF: 0 fluconazole 150 mg tablet 150 mg PO Q7D RF: 0 allopurinol 100 mg tablet 100 mg PO QAM RF: 0 lisinopril 5 mg tablet 5 mg PO QAM RF: 0 Levemir FlexTouch U-100 Insuln 100 unit/mL (3 mL) insulin pen 6 unit SUBCUT DAILY RF: 0 Janumet 50-1,000 mg tablet 1 tab PO BID RF: 0 Pepcid 20 mg tablet 20 mg PO BID PRN (Reason: pain) 42 Days Qty: 84 RF: 0 Discharge Orders: Discharge ED (Routine); Ordered 06/06/21 Ordered By: Vicenta Acosta Referrals: Stewart Rosario MD [Primary Care Provider] - 06/13/21 10:00 am Discharge Diet: Advance as tolerated Discharge Activity: Resume usual activity Patient Instructions: Dyspnea (ED) Activity Restrictions/Additional Instructions: Come back to the emergency room if your symptoms worsen, have any shortness of breath, fever/chills, dehydration, inability tolerate p.o., any difficulty breathing, or any new or concerning complaints. Please take your iron tablets for anemia. Follow up with your PCP for repeat blood work in 1 week to ensure your anemia is not getting worse. Coding Level of Care Code ED Certified Appliance Service Technician for Zac Pickett
[2021-06-06 12:57] VITALS: O2SAT 92
[2021-06-06 13:00] VITALS: BP 121/54; PULSE 71; RESP 21; O2SAT 96
[2021-06-06 13:22] LABS: SARS Covid-2 Antigen Negative (Negative)
[2021-06-06 13:27] LABS: Basophils % 0.3 %; Eosinophils # 0.1 10^3/uL (0.0-0.8); Eosinophils % 0.8 %; Hematocrit 33.3 % (42.0-52.0); Hemoglobin 8.9 g/dL (11.7-16.6); Lymphocytes # 0.8 10^3/uL (0.8-4.8); Lymphocytes % 13.1 %; Mean Corpuscular HGB Conc 26.7 g/dL (30.0-36.0); Mean Platelet Volume 9.3 fL (7.4-10.4); Monocytes # 0.3 10^3/uL (0.2-0.9); Monocytes % 5.5 %; Nucleated Red Blood Cells % 0 %; Platelet Count 276 10^3/cmm (130-400); Red Blood Count 3.87 10^6/uL (4.1-5.3); Red Cell Distribution Width 21.2 % (12.1-15.1); White Blood Count 6.1 10^3/uL (4.0-10.0)
[2021-06-06 13:31] LABS: Influenza A by IFA Negative (Negative)
[2021-06-06 13:32] LABS: Influenza B by IFA Negative (Negative)
[2021-06-06 13:41] LABS: Troponin T (5th) Once 30 ng/L (0-15)
[2021-06-06 13:54] LABS: Anion Gap 13.1 (5-19); Blood Urea Nitrogen 19 mg/dL (6-20); Calcium 8.9 mg/dL (8.5-10.5); Carbon Dioxide 31 mmol/L (22-29); Chloride 101 mmol/L (98-107); Glomerular Filtration Rate 64.4 mL/min (90-130); Glucose 138 mg/dL (65-115); NT Pro B Type Natriuretic Pept 1998 pg/mL (0-125); Osmolality Calculated 296 mOsm/kg (285-295); Potassium 4.1 mmol/L (3.5-5.1); Sodium 141 mmol/L (136-145)
[2021-06-06 14:00] VITALS: BP 137/49; PULSE 78; RESP 18; O2SAT 92
[2021-06-06 15:00] VITALS: BP 125/61; PULSE 73; RESP 18; O2SAT 96
--- NOTE | 2021-06-06 15:05 | DCPLANNER ---
manager media was asked to schedule a follow up appointment for patient with his primary care physician, Dr. Rosario. manager media [place] [facility] [place] a [place] up appointment was scheduled for patient for Sunday, June 13, 2021 at 10:[address] Rosario. manager media informed patient and physician of the scheduled appointment.
[2021-06-06] MEDS: acetaminophen 500 mg Tablet PO (15:21)
[2021-06-06] MEDS: FUROsemide 40 mg Tablet PO (15:21)
--- NOTE | 2021-06-06 15:53 | DCPLANNER ---
channel account manager was asked to check on getting portable oxygen for patient. channel account manager spoke with patient and he stated that he gets oxygen thru [facility]. channel account manager called [facility], to see if they would be able to bring patient a portable oxygen tank to the patient. channel account manager was told that they could bring a portable tank for patient. channel account manager was asked to arrange for transportation for patient home. channel account manager spoke with patient, asked patient if there was anyone that could come and get patient from the ER and take him home, patient stated that there was no one. channel account manager asked patient if he were to get a ride with medicaid transportation if patient would be able to get into a car, and out of a car, and walk into his house with his walker or would he need a wheelchair. Patient stated that as long as he had oxygen that he could get in and out of a car, that he could walk into his house. Patient will have portable oxygen brought to him by [facility] to the ER. channel account manager has informed patients nurse, charge nurse and ER physician of this. channel account manager called [facility] to arrange for a ride home for patient. channel account manager [place] [id number].
[2021-06-06 15:54] LABS: Add Urine Microscopic? YES; Bilirubin Urine Neg (Negative); Blood Urine Neg (Negative); Glucose Urine UA Norm (Normal); Ketones Urine Negative (Negative); Leukocyte Esterase Urine Trace (Negative); Nitrate Urine Negative (Negative); Protein Urine 1+ (Negative); Specific Gravity, Urine 1.015 (1.005-1.030); Urine Appearance Clear (CLEAR); Urine Color Straw (Yellow); Urobilinogen Urine Norm (Negative); pH Urine 5 (5-7)
[2021-06-06 15:55] LABS: Add Urine Culture? No; Bacteria Urine TRACE /hpf; Squamous Epithelial Cell Urine RARE /hpf (0-5); WBC Urine RARE /hpf (0-5)
[2021-06-06 17:13] VITALS: RESP 21
--- NOTE | 2021-06-07 11:50 | DCPLANNER ---
manager enterprise had message to schedule a follow up appointment for patient with general surgery. manager enterprise emailed patients information to both Neris and Ashley at [facility] General Surgery / ENT clinic. Patients information would be printed and reviewed. Clinic will call patient with appointment information.
--- NOTE | 2021-06-08 07:25 | DCPLANNER ---
Patient has a follow up appointment scheduled for , June 16, 2021 at 10:[address] Moura at [facility] General Surgery. Clinic will contact patient with appointment information.
[2021-06-08 14:35] LABS: Coronavirus Test Green County Not Detected
--- NOTE | 2021-06-08 17:23 | PC.NURSE ---
Patient notified at this time of negative COVID test.
--- NOTE | 2021-07-01 11:51 | DCPLANNER ---
Patient did not attend appointment at [facility] [place]
--- NOTE | 2021-07-07 14:09 | DCPLANNER ---
Patient had an appointment scheduled with general surgery - patient did not attend appointment.
== END 2021-06-06 17:14 | disposition home or self-care (01) ==
LOC: ER 12:37
PROVIDERS: Emergency Provider Emergency Medicine; PCP Family Medicine
DX: R06.00 Dyspnea, unspecified (principal); R07.9 Chest pain, unspecified; R09.89 Other specified symptoms and signs involving the circulatory and respiratory systems; D64.9 Anemia, unspecified; J02.9 Acute pharyngitis, unspecified; E10.9 Type 1 diabetes mellitus without complications; Z79.4 Long term (current) use of insulin; Z79.82 Long term (current) use of aspirin; I11.0 Hypertensive heart disease with heart failure; I50.9 Heart failure, unspecified
CPT/HCPCS: 36415; 71045; 80048; 81001; 83880; 84484; 85025; 87426; 87635; 87804; 93005; 99284

== ENCOUNTER 2021-06-07 13:12 | Outpatient (CLI) | payer MEDICAID, SELFPAY | END 2021-06-07 13:13 | disposition home or self-care (01) | LOC: WOUND 13:12 | PROVIDERS: PCP Family Medicine; Visit Provider Nurse Practitioner Family | DX: S30.811A Abrasion of abdominal wall, initial encounter (principal); X58.XXXA Exposure to other specified factors, initial encounter; E11.9 Type 2 diabetes mellitus without complications; J44.9 Chronic obstructive pulmonary disease, unspecified; I10 Essential (primary) hypertension | CPT/HCPCS: 99214 ==

== ENCOUNTER 2021-06-18 15:55 | Emergency (ER) | payer MEDICAID, SELFPAY ==
[2021-06-18 16:11] VITALS: BP 137/60; PULSE 99; RESP 16; TEMP 36.6; O2SAT 98; BMI 64.2
--- NOTE | 2021-06-18 16:28 | CTR_ITS ---
PROCEDURE INFORMATION: Exam: CT Abdomen And Pelvis With Contrast Exam date and time: 06/18/2021 4:28 PM Age: 51 years old Clinical indication: Abdominal pain; Generalized; Patient HX: Abd pain TECHNIQUE: Imaging protocol: Computed tomography of the abdomen and pelvis with contrast. Radiation optimization: All CT scans at this facility use at least one of these dose optimization techniques: automated exposure control; mA and/or kV adjustment per patient size (includes targeted exams where dose is matched to clinical indication); or iterative reconstruction. Contrast material: VISIPAQUE 320; Contrast volume: 95 ml; Contrast route: INTRAVENOUS (IV); COMPARISON: CT pelvis w con* [id number] 11/24/2020 2:34 PM RADIATION DOSE METRICS: Total DLP (mGy-cm): 1822.12 FINDINGS: Liver: Normal. No mass. Gallbladder and bile ducts: Gallbladder is somewhat prominent, ultrasound could further evaluate this as clinically indicated. Pancreas: Normal. No ductal dilation. Spleen: Normal. No splenomegaly. Adrenal glands: Normal. No mass. Kidneys and ureters: Left kidney cyst, negative for follow-up advised. Right kidney nonobstructing renal calyceal stones. Stomach and bowel: Unremarkable. No obstruction. No mucosal thickening. Appendix: No evidence of appendicitis. Intraperitoneal space: Unremarkable. No free air. No significant fluid collection. Vasculature: Unremarkable. No abdominal aortic aneurysm. Lymph nodes: Unremarkable. No enlarged lymph nodes. Urinary bladder: Unremarkable as visualized. Reproductive: Unremarkable as visualized. Bones/joints: Unremarkable. No acute fracture. Soft tissues: Subcutaneous edema over the lower abdomen. CT/CT abdomen pelvis w con* [id number] IMPRESSION: 1. Negative for focal acute inflammatory process in the abdomen or pelvis. 2. Gallbladder is somewhat prominent, ultrasound could further evaluate this as clinically indicated. 3. Left kidney cyst, negative for follow-up advised. 4. Right kidney nonobstructing renal calyceal stones. 5. Subcutaneous edema over the lower abdomen.
[2021-06-18 16:30] LABS: Basophils % 0.6 %; Eosinophils % 0.6 %; Hematocrit 35.7 % (42.0-52.0); Hemoglobin 9.3 g/dL (11.7-16.6); Lymphocytes % 14.4 %; Mean Corpuscular HGB Conc 26.1 g/dL (30.0-36.0); Mean Corpuscular Hemoglobin 22.6 pg (28.0-34.0); Mean Corpuscular Volume 86.9 fl (80-94); Mean Platelet Volume 9.6 fL (7.4-10.4); Monocytes # 0.7 10^3/uL (0.2-0.9); Monocytes % 9.2 %; Neutrophils # 5.31 10^3/uL (1.8-7.7); Neutrophils % 74.8 %; Nucleated Red Blood Cells % 0 %; Platelet Count 252 10^3/cmm (130-400); Red Blood Count 4.11 10^6/uL (4.1-5.3); Red Cell Distribution Width 20.1 % (12.1-15.1); White Blood Count 7.1 10^3/uL (4.0-10.0)
[2021-06-18] MEDS: sodium chloride 0.9% 1,000 ML 999 ML IV (16:30)
[2021-06-18 16:48] LABS: Alanine Aminotransferase 15 U/L (0-41); Albumin Level 3.8 g/dL (3.5-5.2); Alkaline Phosphatase 180 IU/L (40-130); Anion Gap 12.9 (5-19); Aspartate Amino Transferase 14 U/L (0-40); Blood Urea Nitrogen 16 mg/dL (6-20); Calcium 8.6 mg/dL (8.5-10.5); Carbon Dioxide 33 mmol/L (22-29); Chloride 96 mmol/L (98-107); Globulin 3.7 g/dL (1.3-4.6); Glomerular Filtration Rate 58.7 mL/min (90-130); Glucose 118 mg/dL (65-115); Lipase 55 U/L (13-60); Osmolality Calculated 288 mOsm/kg (285-295); Potassium 3.9 mmol/L (3.5-5.1); Sodium 138 mmol/L (136-145); Total Bilirubin 0.8 mg/dL (0.15-1.2); Total Protein 7.5 g/dL (6.6-8.7)
--- NOTE | 2021-06-18 16:58 | ED_ITS ---
Documented by User: Fantasma Del Angel DO 06/20/21 07:13 HPI - Abdominal Pain General: Chief Complaint: Abdominal Pain Stated Complaint: ABD PAIN Time Seen by Provider: 06/18/21 15:57 History of Present Illness: HPI narrative: 51-year-old male presents emergency room complaining of abdominal pain. States been constipated for last months his abdominal pain for last 2 weeks. He denies any fever sweats chills no dysuria urgency or frequency no hematochezia melena hematemesis coffee-ground emesis. Denies any hematuria. He is brought chronic problems with constipation. He is super morbidly obese with a BMI of 64. His chronic anemia as well. MD elicited complaint: abdominal pain Pertinent past history: constipation Onset (ago): week(s) Pain Consistency: intermittent Location: LLQ Severity: moderate Quality: cramping Radiation: none Exacerbating factors: nothing Relieving factors: nothing Associated Symptoms: Reports bloating, change in bowel habits, constipation, GI cramping and poor appetite; Denies anorexia, belching, change in stool character, chills, coffee ground emesis, diarrhea, dyspepsia, dysuria, excessive flatus, fever(s), heartburn, hematochezia, hematuria, hematemesis, fecal incontinence, loose stools, melena, nausea, syncope and vomiting Review of Systems Const: Denies: fever(s) or chills ENMT: Denies: throat pain, ear or mastoid pain, nasal discharge or nasal congestion Card: Denies: syncope Resp: Denies: dyspnea, productive cough or non-productive cough GI: Reports: constipation, bloating, GI cramping and change in bowel habits; Denies: nausea, vomiting, hematemesis, coffee ground emesis, heartburn, diarrhea, belching, excessive flatus, fecal incontinence, change in stool character, hematochezia or melena : Denies: dysuria or hematuria Skin/Breast: Denies: rash or pruritus PFSH ED PFSH: Medical History Anemia -has chronic iron deficiency anemia, baseline Hg is around 9-10 -stable H/H -was previously on iron supplementation CHF (congestive heart failure) -Echo (07/2019): EF=68%, normal diastolic function, no RWMA -on oral lasix -no acute exacerbation currently Decubitus ulcer limited to breakdown of skin (stage 2) Diabetes -NIDDM type II -A1c (11/2019): 8.2 -Accuchecks, ISS, hypoglycemia precautions -consistent carb diet -anticipate hyperglycemia with steroid use Gout Hyperlipemia, mixed Hypertension -VSS; continue to monitor -continue oral antihypertensives Morbid (severe) obesity due to excess calories OPAL (obstructive sleep apnea) -in the process of getting CPAP set up Pneumonia Psychiatric care Transient cerebral ischemia Surgical History History of adenoidectomy History of hernia repair History of tonsillectomy History of umbilical hernia repair Family History Mother Hypertension CAD (coronary artery disease) Stroke Social History Smoking and tobacco status: never smoked Second hand smoke exposure: Yes Alcohol intake: never Adopted: No Caregiver/support person: No Lives independently: Yes Household members: family and friend(s) Housing: Manufactured/Mobile home Marital status: Single Number of children: 0 Number of grandchildren: 0 Highest education level completed: 8th Grade service: No Current occupational status: disabled Pets and animals: No History of recent travel: No Leisure activites: other Leisure activities details: play card games Sexually active: No Current gender identity: Male Yolanda/Denominational: Other Special yolanda needs: No Agree to transfusion: Yes Financial difficulty paying for basics: Hard Physical Exam Const: COMMON NORMALS: no acute distress GENERAL APPEARANCE: cooperative and comfortable ORIENTATION/CONSCIOUSNESS: Yes awake, Yes oriented to person, Yes oriented to place and Yes oriented to time HENMT: COMMON NORMALS: normocephalic, atraumatic and hearing grossly normal bilaterally HEAD & SCALP: normocephalic and atraumatic Resp: COMMON NORMALS: normal respiratory effort, No retractions, No use of accessory muscles and clear to auscultation bilaterally AUSCULTATION: clear to auscultation bilaterally Cardio: COMMON NORMALS: regular rate, regular rhythm and No murmurs present (Cardio) RATE: regular rate RHYTHM: regular rhythm GI: COMMON NORMALS: Soft to palpation and No hepatosplenomegaly present AUSCULTATION: Yes normoactive bowel sounds PALPATION: Yes Soft to palpation, Yes Tenderness to palpation present (GI) (Lower abdomen seems isolated to the pannicular fold see below no guarding o), No Guarding due to palpation present (GI) and Yes No hepatosplenomegaly present OTHER: Super morbidly obese redness and irritation in the pannicular fold no abscess no drainage tender to the touch. Extremity: COMMON NORMALS: normal to inspection, capillary refill normal, no clubbing, cyanosis or edema, no calf tenderness and no pedal edema Neuro: SENSORIUM/ORIENTATION: Yes oriented to person, Yes oriented to place and Yes oriented to time Skin: COMMON NORMALS: no rashes or lesions noted GENERAL SKIN EXAM: no rashes or lesions noted Course Vital Signs: Vital signs: Vital Signs Temperature 97.9 F 06/18/21 16:11 Pulse Rate 68 06/18/21 20:31 Respiratory Rate 18 06/18/21 20:31 Blood Pressure 145/78 06/18/21 20:31 Pulse Oximetry 99 06/18/21 20:31 MDM - Abdominal Pain MDM Narrative: Medical decision making narrative: Care turned over to Dr. Godinez at change of shift see his note for final diagnosis and disposition Lab Data: Labs: Lab Results 06/18/21 06/18/21 06/18/21 16:20 16:20 16:57 WBC 7.1 10^3/uL 10^3/ uL (4.0-10.0) RBC 4.11 10^6/uL 10^6 /uL (4.1-5.3) Hgb 9.3 g/dL L g/dL (11.7-16.6) Hct 35.7 % L % (42.0-52.0) MCV 86.9 fl fl (80-94) MCH 22.6 pg L pg (28.0-34.0) MCHC 26.1 g/dL L g/dL (30.0-36.0) RDW 20.1 % H % (12.1-15.1) Plt Count 252 10^3/cmm 10^3 /cmm (130-400) MPV 9.6 fL fL (7.4-10.4) Neut % (Auto) 74.8 % % Lymph % (Auto) 14.4 % % Appling % (Auto) 9.2 % % Eos % (Auto) 0.6 % % Baso % (Auto) 0.6 % % Neut # (Auto) 5.31 10^3/uL 10^3 /uL (1.8-7.7) Lymph # (Auto) 1.0 10^3/uL 10^3/ uL (0.8-4.8) [place] # (Auto) 0.7 10^3/uL 10^3/ uL (0.2-0.9) Eos # (Auto) 0.0 10^3/uL 10^3/ uL (0.0-0.8) Baso # (Auto) 0.0 10^3/uL 10^3/ uL (0.0-0.1) Nucleated RBC % (a uto) 0 % % Nucleated RBCs # 0.0 /100WBC /100W BC Specimen Type Arterial Sample Site Radial, left ABG pH 7.32 L (7.35-7.45) ABG pCO2 67.5 mmHg H* mmHg (35-45) ABG pO2 93.9 mmHg mmHg (80.0-100.0) ABG HCO3 34.6 mmol/L H mmo l/L (22-26) ABG O2 Saturation 97.1 ABG Base Excess 7.1 mmol/L H mmol /L (-2.0-2.0) Luis Test Pos A-a O2 Gradient 10.7 mmHg H mmHg (5-10) Hematocrit 27.7 % L % (42-52) Hgb O2 Saturation 94.9 % L % (95-100) Carboxyhemoglobin 1.5 %THgb %THgb (0.4-20.1) Methemoglobin 0.8 % % (0.4-1.5) Total Hemoglobin 9.0 g/dL L g/dL (14-18) Ionized Calcium 1.2 mmol/L mmol/L (1.1-1.4) O2 Delivery Device Nc O2 Liters/Min 4.0 % % FiO2 36.0 % % Grain Thresher ID Cak Sodium 138 mmol/L mmol/L 143.0 mmol/L mmol /L (136-145) (131-143) Potassium 3.9 mmol/L mmol/L 3.7 mmol/L mmol/L (3.5-5.1) (3.5-5.0) Chloride 96 mmol/L L mmol/ L (98-107) Carbon Dioxide 33 mmol/L H mmol/ L (22-29) Anion Gap 12.9 (5-19) BUN 16 mg/dL mg/dL (6-20) Creatinine 1.3 mg/dL H mg/dL (0.7-1.2) GFR Calculation 58.7 mL/min L mL/ min (90-130) Glucose 118 mg/dL H mg/dL 118.0 mg/dL H mg/ dL (65-115) (70-115) Calculated Osmolal ity 288 mOsm/kg mOsm/ kg (285-295) Lactic Acid Calcium 8.6 mg/dL mg/dL (8.5-10.5) Total Bilirubin 0.8 mg/dL mg/dL (0.15-1.2) AST 14 U/L U/L (0-40) ALT 15 U/L U/L (0-41) Alkaline Phosphata se 180 IU/L H IU/L (40-130) Total Protein 7.5 g/dL g/dL (6.6-8.7) Albumin 3.8 g/dL g/dL (3.5-5.2) Globulin 3.7 g/dL g/dL (1.3-4.6) Lipase 55 U/L U/L (13-60) Urine Color Urine Appearance Urine pH Ur Specific Gravit y Urine Protein Urine Glucose (UA) Urine Ketones Urine Blood Urine Nitrate Urine Bilirubin Urine Urobilinogen Ur Leukocyte Maggie ase Urine RBC Urine WBC Ur Squamous Epith Cells Ur Transition Epit h Cell Amorphous Sediment Urine Bacteria 06/18/21 06/18/21 18:50 19:10 WBC RBC Hgb Hct MCV MCH MCHC RDW Plt Count MPV Neut % (Auto) Lymph % (Auto) Appling % (Auto) Eos % (Auto) Baso % (Auto) Neut # (Auto) Lymph # (Auto) Appling # (Auto) Eos # (Auto) Baso # (Auto) Nucleated RBC % (a uto) Nucleated RBCs # Specimen Type Sample Site ABG pH ABG pCO2 ABG pO2 ABG HCO3 ABG O2 Saturation ABG Base Excess Luis Test A-a O2 Gradient Hematocrit Hgb O2 Saturation Carboxyhemoglobin Methemoglobin Total Hemoglobin Ionized Calcium O2 Delivery Device O2 Liters/Min FiO2 Grain Thresher ID Sodium Potassium Chloride Carbon Dioxide Anion Gap BUN Creatinine GFR Calculation Glucose Calculated Osmolal ity Lactic Acid 1.4 mmol/L mmol/L (0.5-2.2) Calcium Total Bilirubin AST ALT Alkaline Phosphata se Total Protein Albumin Globulin Lipase Urine Color Yellow (Yellow) Urine Appearance Sl hazy (CLEAR) Urine pH 5 (5-7) Ur Specific Gravit y 1.010 (1.005-1.030) Urine Protein 1+ H (Negative) Urine Glucose (UA) Norm (Normal) Urine Ketones Negative (Negative) Urine Blood 3+ H (Negative) Urine Nitrate Negative (Negative) Urine Bilirubin Neg (Negative) Urine Urobilinogen Norm mg/dL mg/dL (Negative) Ur Leukocyte Maggie ase Negative (Negative) Urine RBC 0-4 /hpf H /hpf (0-2) Urine WBC 5-10 /hpf H /hpf (0-5) Ur Squamous Epith Cells 10-15 /hpf H /hpf (0-5) Ur Transition Epit h Cell 0-4 /hpf /hpf Amorphous Sediment Not Reportable Urine Bacteria Trace /hpf /hpf (NONE) Discharge Plan Discharge Patient Disposition: Home Clinical Impression: Panniculitis Abdominal pain Qualifiers: Abdominal location: generalized Qualified Code(s): R10.84 - Generalized abdominal pain Constipation Qualifiers: Constipation type: unspecified constipation type Qualified Code(s): K59.00 - Constipation, unspecified Condition: Stable Prescriptions: New Diflucan 150 mg tablet 150 mg PO Q3D Qty: 2 RF: 0 No Action (DME) oxygen-air delivery systems Device See Rx Instructions .ROUTE .MEDSUPPLY Qty: 1 RF: 0 albuterol sulfate 90 mcg/actuation HFA aerosol inhaler 2 puff inhalation Q6H PRN (Reason: Shortness Of Breath) RF: 0 atorvastatin [Lipitor] 80 mg Tablet 80 mg PO BEDTIME RF: 0 omeprazole 40 mg Capsule,Delayed Release(Dr/Ec) 40 mg PO QAM RF: 0 montelukast [Singulair] 10 mg Tablet 10 mg PO BEDTIME RF: 0 glipizide 10 mg Tablet Extended Release 24hr 10 mg PO BID RF: 0 aspirin 81 mg Tablet,Delayed Release (Dr/Ec) 81 mg PO QAM RF: 0 atenolol 100 mg tablet 100 mg PO QAM RF: 0 Dulera 200-5 mcg/actuation HFA aerosol inhaler 2 puff INHALATION BID RF: 0 fluconazole 150 mg tablet 150 mg PO Q7D RF: 0 allopurinol 100 mg tablet 100 mg PO QAM RF: 0 lisinopril 5 mg tablet 5 mg PO QAM RF: 0 Levemir FlexTouch U-100 Insuln 100 unit/mL (3 mL) insulin pen 6 unit SUBCUT DAILY RF: 0 Janumet 50-1,000 mg tablet 1 tab PO BID RF: 0 acetaminophen 500 mg tablet 500 mg PO Q6H PRN (Reason: pain) 5 Days Qty: 20 RF: 0 clindamycin HCl 300 mg capsule 300 mg PO BID 7 Days Qty: 14 RF: 0 cephalexin 500 mg capsule 500 mg PO BID 7 Days Qty: 14 RF: 0 ferrous sulfate 325 mg (65 mg iron) tablet 325 mg PO DAILY 20 Days Qty: 20 RF: 0 Discharge Orders: Discharge ED (Routine); Ordered 06/18/21 Ordered By: Kvng Godinez Referrals: Stewart Rosario MD [Primary Care Provider] - 1-3 days Patient Instructions: Cellulitis (ED), Abdominal Pain (ED), Opioid Safety Activity Restrictions/Additional Instructions: Return for fever greater than 100, worsening pain despite treatment, vomiting liquids or medications, other concerning symptoms. Return also for shortness of breath Coding Level of Care Code ED Cushion Filler for Chg Fwd Exam Comprehensive Documented by User: Kvng Godinez DO 06/18/21 22:00 HPI - Abdominal Pain General: Chief Complaint: Abdominal Pain Stated Complaint: ABD PAIN Time Seen by Provider: 06/18/21 15:57 PFSH ED PFSH: Medical History Anemia -has chronic iron deficiency anemia, baseline Hg is around 9-10 -stable H/H -was previously on iron supplementation CHF (congestive heart failure) -Echo (07/2019): EF=68%, normal diastolic function, no RWMA -on oral lasix -no acute exacerbation currently Decubitus ulcer limited to breakdown of skin (stage 2) Diabetes -NIDDM type II -A1c (11/2019): 8.2 -Accuchecks, ISS, hypoglycemia precautions -consistent carb diet -anticipate hyperglycemia with steroid use Gout Hyperlipemia, mixed Hypertension -VSS; continue to monitor -continue oral antihypertensives Morbid (severe) obesity due to excess calories OPAL (obstructive sleep apnea) -in the process of getting CPAP set up Pneumonia Psychiatric care Transient cerebral ischemia Surgical History History of adenoidectomy History of hernia repair History of tonsillectomy History of umbilical hernia repair Family History Mother Hypertension CAD (coronary artery disease) Stroke Social History Smoking and tobacco status: never smoked Second hand smoke exposure: Yes Alcohol intake: never Adopted: No Caregiver/support person: No Lives independently: Yes Household members: family and friend(s) Housing: Manufactured/Mobile home Marital status: Single Number of children: 0 Number of grandchildren: 0 Highest education level completed: 8th Grade service: No Current occupational status: disabled Pets and animals: No History of recent travel: No Leisure activites: other Leisure activities details: play card games Sexually active: No Current gender identity: Male Yolanda/Denominational: Other Special yolanda needs: No Agree to transfusion: Yes Financial difficulty paying for basics: Hard Course Vital Signs: Vital signs: Vital Signs Temperature 97.9 F 06/18/21 16:11 Pulse Rate 68 06/18/21 20:31 Respiratory Rate 18 06/18/21 20:31 Blood Pressure 145/78 06/18/21 20:31 Pulse Oximetry 99 06/18/21 20:31 MDM - Abdominal Pain MDM Narrative: Medical decision making narrative: 51-year-old male checked out to me at shift change by Dr. Del Angel. This gentleman came in with belly pain for about a month. He is chronically anemic. His hemoglobin is 9.3 which is essentially near his baseline. His white count is 7.1. His creatinine is 1.3. Abdominal CT shows no acute findings. There is a distended gallbladder. There is some constipation. I will be sent home with magnesium citrate for this. He also has some panniculitis with abdominal wall swelling on CT. He will get Diflucan for this here, and another dose for home. Lab Data: Labs: Lab Results 06/18/21 06/18/21 06/18/21 16:20 16:20 16:57 WBC 7.1 10^3/uL 10^3/ uL (4.0-10.0) RBC 4.11 10^6/uL 10^6 /uL (4.1-5.3) Hgb 9.3 g/dL L g/dL (11.7-16.6) Hct 35.7 % L % (42.0-52.0) MCV 86.9 fl fl (80-94) MCH 22.6 pg L pg (28.0-34.0) MCHC 26.1 g/dL L g/dL (30.0-36.0) RDW 20.1 % H % (12.1-15.1) Plt Count 252 10^3/cmm 10^3 /cmm (130-400) MPV 9.6 fL fL (7.4-10.4) Neut % (Auto) 74.8 % % Lymph % (Auto) 14.4 % % Appling % (Auto) 9.2 % % Eos % (Auto) 0.6 % % Baso % (Auto) 0.6 % % Neut # (Auto) 5.31 10^3/uL 10^3 /uL (1.8-7.7) Lymph # (Auto) 1.0 10^3/uL 10^3/ uL (0.8-4.8) Appling # (Auto) 0.7 10^3/uL 10^3/ uL (0.2-0.9) Eos # (Auto) 0.0 10^3/uL 10^3/ uL (0.0-0.8) Baso # (Auto) 0.0 10^3/uL 10^3/ uL (0.0-0.1) Nucleated RBC % (a uto) 0 % % Nucleated RBCs # 0.0 /100WBC /100W BC Specimen Type Arterial Sample Site Radial, left ABG pH 7.32 L (7.35-7.45) ABG pCO2 67.5 mmHg H* mmHg (35-45) ABG pO2 93.9 mmHg mmHg (80.0-100.0) ABG HCO3 34.6 mmol/L H mmo l/L (22-26) ABG O2 Saturation 97.1 ABG Base Excess 7.1 mmol/L H mmol /L (-2.0-2.0) Luis Test Pos A-a O2 Gradient 10.7 mmHg H mmHg (5-10) Hematocrit 27.7 % L % (42-52) Hgb O2 Saturation 94.9 % L % (95-100) Carboxyhemoglobin 1.5 %THgb %THgb (0.4-20.1) Methemoglobin 0.8 % % (0.4-1.5) Total Hemoglobin 9.0 g/dL L g/dL (14-18) Ionized Calcium 1.2 mmol/L mmol/L (1.1-1.4) O2 Delivery Device Nc O2 Liters/Min 4.0 % % FiO2 36.0 % % Grain Thresher ID Cak Sodium 138 mmol/L mmol/L 143.0 mmol/L mmol /L (136-145) (131-143) Potassium 3.9 mmol/L mmol/L 3.7 mmol/L mmol/L (3.5-5.1) (3.5-5.0) Chloride 96 mmol/L L mmol/ L (98-107) Carbon Dioxide 33 mmol/L H mmol/ L (22-29) Anion Gap 12.9 (5-19) BUN 16 mg/dL mg/dL (6-20) Creatinine 1.3 mg/dL H mg/dL (0.7-1.2) GFR Calculation 58.7 mL/min L mL/ min (90-130) Glucose 118 mg/dL H mg/dL 118.0 mg/dL H mg/ dL (65-115) (70-115) Calculated Osmolal ity 288 mOsm/kg mOsm/ kg (285-295) Lactic Acid Calcium 8.6 mg/dL mg/dL (8.5-10.5) Total Bilirubin 0.8 mg/dL mg/dL (0.15-1.2) AST 14 U/L U/L (0-40) ALT 15 U/L U/L (0-41) Alkaline Phosphata se 180 IU/L H IU/L (40-130) Total Protein 7.5 g/dL g/dL (6.6-8.7) Albumin 3.8 g/dL g/dL (3.5-5.2) Globulin 3.7 g/dL g/dL (1.3-4.6) Lipase 55 U/L U/L (13-60) Urine Color Urine Appearance Urine pH Ur Specific Gravit y Urine Protein Urine Glucose (UA) Urine Ketones Urine Blood Urine Nitrate Urine Bilirubin Urine Urobilinogen Ur Leukocyte Maggie ase Urine RBC Urine WBC Ur Squamous Epith Cells Ur Transition Epit h Cell Amorphous Sediment Urine Bacteria 06/18/21 06/18/21 18:50 19:10 WBC RBC Hgb Hct MCV MCH MCHC RDW Plt Count MPV Neut % (Auto) Lymph % (Auto) Appling % (Auto) Eos % (Auto) Baso % (Auto) Neut # (Auto) Lymph # (Auto) Appling # (Auto) Eos # (Auto) Baso # (Auto) Nucleated RBC % (a uto) Nucleated RBCs # Specimen Type Sample Site ABG pH ABG pCO2 ABG pO2 ABG HCO3 ABG O2 Saturation ABG Base Excess Luis Test A-a O2 Gradient Hematocrit Hgb O2 Saturation Carboxyhemoglobin Methemoglobin Total Hemoglobin Ionized Calcium O2 Delivery Device O2 Liters/Min FiO2 Grain Thresher ID Sodium Potassium Chloride Carbon Dioxide Anion Gap BUN Creatinine GFR Calculation Glucose Calculated Osmolal ity Lactic Acid 1.4 mmol/L mmol/L (0.5-2.2) Calcium Total Bilirubin AST ALT Alkaline Phosphata se Total Protein Albumin Globulin Lipase Urine Color Yellow (Yellow) Urine Appearance Sl hazy (CLEAR) Urine pH 5 (5-7) Ur Specific Gravit y 1.010 (1.005-1.030) Urine Protein 1+ H (Negative) Urine Glucose (UA) Norm (Normal) Urine Ketones Negative (Negative) Urine Blood 3+ H (Negative) Urine Nitrate Negative (Negative) Urine Bilirubin Neg (Negative) Urine Urobilinogen Norm mg/dL mg/dL (Negative) Ur Leukocyte Maggie ase Negative (Negative) Urine RBC 0-4 /hpf H /hpf (0-2) Urine WBC 5-10 /hpf H /hpf (0-5) Ur Squamous Epith Cells 10-15 /hpf H /hpf (0-5) Ur Transition Epit h Cell 0-4 /hpf /hpf Amorphous Sediment Not Reportable Urine Bacteria Trace /hpf /hpf (NONE) Discharge Plan Discharge Patient Disposition: Home Clinical Impression: Panniculitis Abdominal pain Qualifiers: Abdominal location: generalized Qualified Code(s): R10.84 - Generalized abdominal pain Constipation Qualifiers: Constipation type: unspecified constipation type Qualified Code(s): K59.00 - Constipation, unspecified Condition: Stable Prescriptions: New Diflucan 150 mg tablet 150 mg PO Q3D Qty: 2 RF: 0 No Action (DME) oxygen-air delivery systems Device See Rx Instructions .ROUTE .MEDSUPPLY Qty: 1 RF: 0 albuterol sulfate 90 mcg/actuation HFA aerosol inhaler 2 puff inhalation Q6H PRN (Reason: Shortness Of Breath) RF: 0 atorvastatin [Lipitor] 80 mg Tablet 80 mg PO BEDTIME RF: 0 omeprazole 40 mg Capsule,Delayed Release(Dr/Ec) 40 mg PO QAM RF: 0 montelukast [Singulair] 10 mg Tablet 10 mg PO BEDTIME RF: 0 glipizide 10 mg Tablet Extended Release 24hr 10 mg PO BID RF: 0 aspirin 81 mg Tablet,Delayed Release (Dr/Ec) 81 mg PO QAM RF: 0 atenolol 100 mg tablet 100 mg PO QAM RF: 0 Dulera 200-5 mcg/actuation HFA aerosol inhaler 2 puff INHALATION BID RF: 0 fluconazole 150 mg tablet 150 mg PO Q7D RF: 0 allopurinol 100 mg tablet 100 mg PO QAM RF: 0 lisinopril 5 mg tablet 5 mg PO QAM RF: 0 Levemir FlexTouch U-100 Insuln 100 unit/mL (3 mL) insulin pen 6 unit SUBCUT DAILY RF: 0 Janumet 50-1,000 mg tablet 1 tab PO BID RF: 0 acetaminophen 500 mg tablet 500 mg PO Q6H PRN (Reason: pain) 5 Days Qty: 20 RF: 0 clindamycin HCl 300 mg capsule 300 mg PO BID 7 Days Qty: 14 RF: 0 cephalexin 500 mg capsule 500 mg PO BID 7 Days Qty: 14 RF: 0 ferrous sulfate 325 mg (65 mg iron) tablet 325 mg PO DAILY 20 Days Qty: 20 RF: 0 Discharge Orders: Discharge ED (Routine); Ordered 06/18/21 Ordered By: Kvng Godinez Referrals: Stewart Rosario MD [Primary Care Provider] - 1-3 days Patient Instructions: Cellulitis (ED), Abdominal Pain (ED), Opioid Safety Activity Restrictions/Additional Instructions: Return for fever greater than 100, worsening pain despite treatment, vomiting liquids or medications, other concerning symptoms. Return also for shortness of breath Coding Level of Care Code ED Cushion Filler for Chg Fwd Exam Comprehensive
[2021-06-18] MEDS: ondansetron 2 mg/ML SDV 2 mL 4 MG IVP (17:01)
[2021-06-18 17:08] LABS: ABG PCO2 67.5 mmHg (35-45); ABG PH Result 7.32 (7.35-7.45); Alveolar-Arterial Oxygen Gradi 10.7 mmHg (5-10); Arterial Blood Gas Hematocrit 27.7 % (42-52); Base Excess ABG 7.1 mmol/L (-2.0-2.0); Blood Gas Allen Test Pos; Blood Gas Operator Identificat CAK; Blood Gas Sample Site Radial, left; Blood Gas Sample Type Arterial; Carboxyhemoglobin 1.5 %THgb (0.4-20.1); HCO3 ABG 34.6 mmol/L (22-26); HGB O2 Sat 94.9 % (95-100); Ionized Calcium Level - ABG 1.2 mmol/L (1.1-1.4); Methemoglobin 0.8 % (0.4-1.5); Oxygen Device NC; Oxygen Saturation ABG 97.1; PO2 ABG 93.9 mmHg (80.0-100.0); Potassium Level - ABG 3.7 mmol/L (3.5-5.0)
[2021-06-18 17:27] VITALS: PULSE 78; RESP 14; O2SAT 94
[2021-06-18] MEDS: lidocaine 2% Urojet 20 mL TOPICAL (18:17)
[2021-06-18] MEDS: iohexol 300 mg/mL 100 mL Btl IV (18:34)
[2021-06-18 19:12] LABS: Lactic Sepsis W/Reflex 1.4 mmol/L (0.5-2.2)
[2021-06-18 19:19] LABS: Add Urine Microscopic? YES; Bilirubin Urine Neg (Negative); Blood Urine 3+ (Negative); Glucose Urine UA Norm (Normal); Ketones Urine Negative (Negative); Leukocyte Esterase Urine Negative (Negative); Nitrate Urine Negative (Negative); Protein Urine 1+ (Negative); Urine Appearance SL Hazy (CLEAR); Urine Color Yellow (Yellow); Urobilinogen Urine Norm (Negative); pH Urine 5 (5-7)
[2021-06-18 19:24] LABS: Add Urine Culture? No; Bacteria Urine TRACE /hpf; RBC Urine 0-4 /hpf (0-2); Transitional Epi Cells Urine 0-4 /hpf
[2021-06-18 19:59] VITALS: BP 154/75; PULSE 78; RESP 16; O2SAT 94
[2021-06-18] MEDS: fluconazole 100 mg Tablet 150 MG PO (20:10)
[2021-06-18] MEDS: magnesium citrate Btl 296 mL PO (20:19)
[2021-06-18 20:31] VITALS: BP 145/78; PULSE 68; RESP 18; O2SAT 99
--- NOTE | 2021-06-20 14:09 | DCPLANNER ---
creative project manager had message to schedule a follow up appointment for patient with ENT. creative project manager emailed patients information to Ashley at [facility] ENT clinic. Patients information will be printed and reviewed. Clinic will call patient with appointment information.
--- NOTE | 2021-06-20 14:28 | DCPLANNER ---
instructional manager had message to schedule a follow up appointment for patient with general surgery. instructional manager emailed patients information to Ashley at [facility] General Surgery. Patients information will be printed and reviewed. Clinic will call patient with appointment information.
--- NOTE | 2021-07-06 07:55 | DCPLANNER ---
Addendum entered by Angelic Rosa 07/06/21 07:58: outpatient case manager sent the general surgery clinic an email about follow up appointment. Original Note: site operations manager sent ENT clinic an email about follow up appointment, due to not seeing anything scheduled for patient. Kizzy emailed outpatient case manager back stating that patient was in the hospital when referral was made, that clinic called patient and left a voicemail for patient for patient to call clinic to schedule an appointment.
== END 2021-06-18 20:33 | disposition home or self-care (01) ==
PROVIDERS: Family Medicine; Emergency Provider Emergency Medicine; PCP Family Medicine
DX: M79.3 Panniculitis, unspecified (principal); K59.00 Constipation, unspecified; Z79.84 Long term (current) use of oral hypoglycemic drugs; Z79.82 Long term (current) use of aspirin; Z79.4 Long term (current) use of insulin; I11.0 Hypertensive heart disease with heart failure; I50.9 Heart failure, unspecified; E11.9 Type 2 diabetes mellitus without complications; E78.2 Mixed hyperlipidemia; Z77.22 Contact with and (suspected) exposure to environmental tobacco smoke (acute) (chronic)
CPT/HCPCS: 36600; 74177; 80051; 80053; 81001; 82330; 82805; 83605; 83690; 85025; 94660; 96361; 96374; 99284; J2405; J7030; Q9967

== ENCOUNTER 2021-06-19 20:09 | Emergency (ER) | payer MEDICAID, SELFPAY ==
[2021-06-19] VITALS (8 sets, daily range): BP systolic 97–168; BP diastolic 48–86; PULSE 65–74; RESP 18–22; TEMP 36.9; O2SAT 88–95; BMI 64.2
--- NOTE | 2021-06-19 20:21 | ECG_ITS ---
[facility] Test Date: 2021-06-19 Pat Name: Arnol Guzman Department: Room: Gender: Male [employer]: : 1970 Requested By: Vicenta Acosta Order Number: [id number] Bernardino MD: Tay Mireles M.D. Measurements Intervals [place] Rate: 69 P: 84 IA: 178 QRS: 93 QRSD: 109 T: 102 QT: 398 QTc: 428 Interpretive Statements SINUS RHYTHM BORDERLINE RIGHT AXIS DEVIATION [QRS AXIS > 90] LOW QRS VOLTAGE IN PRECORDIAL LEADS [QRS DEFLECTION < 1.0 mV IN CHEST LEADS] INCOMPLETE RIGHT BUNDLE BRANCH BLOCK [90+ ms QRS DURATION, TERMINAL R IN V1/V2, 40+ ms S IN I/aVL/V4/V5/V6] Compared to ECG 06/06/2021 12:24:02 Low QRS voltage now present Electronically Signed On 06-20-2021 20:44:43 [employer]IEF [employer] OFFICER by Tay Mireles M.D. [id number]
--- NOTE | 2021-06-19 20:21 | XRR_ITS ---
PROCEDURE INFORMATION: Exam: XR Chest Exam date and time: 06/19/2021 8:21 PM Age: 51 years old Clinical indication: Pain; Chest pressure and pain. TECHNIQUE: Imaging protocol: XR of the chest. Views: 1 view. COMPARISON: CR XR chest 1V portable [id number] 06/06/2021 12:37 PM FINDINGS: Lungs: Unremarkable. No consolidation. Pleural spaces: Unremarkable. No pleural effusion. No pneumothorax. Heart/Mediastinum: Possible cardiomegaly. Bones/joints: Unremarkable. XR/XR chest 1V portable [id number] IMPRESSION: Possible cardiomegaly.Heart size not optimally evaluated with a single AP view of the chest.
[2021-06-19 20:28] LABS: Basophils % 0.3 %; Eosinophils # 0.1 10^3/uL (0.0-0.8); Eosinophils % 0.5 %; Hematocrit 35.3 % (42.0-52.0); Hemoglobin 9.2 g/dL (11.7-16.6); Lymphocytes # 1.2 10^3/uL (0.8-4.8); Lymphocytes % 12.1 %; Mean Corpuscular HGB Conc 26.1 g/dL (30.0-36.0); Mean Corpuscular Hemoglobin 22.7 pg (28.0-34.0); Mean Corpuscular Volume 87.2 fl (80-94); Monocytes # 0.8 10^3/uL (0.2-0.9); Monocytes % 7.7 %; Neutrophils # 7.91 10^3/uL (1.8-7.7); Neutrophils % 79.1 %; Nucleated Red Blood Cells % 0 %; Platelet Count 283 10^3/cmm (130-400); Red Blood Count 4.05 10^6/uL (4.1-5.3); Red Cell Distribution Width 20.3 % (12.1-15.1)
[2021-06-19 20:45] LABS: Troponin(5th) Baseline 36 ng/L (0-15)
[2021-06-19 20:46] LABS: Blood Urea Nitrogen 23 mg/dL (6-20); Calcium 8.7 mg/dL (8.5-10.5); Carbon Dioxide 27 mmol/L (22-29); Chloride 97 mmol/L (98-107); Glomerular Filtration Rate 53.9 mL/min (90-130); Glucose 137 mg/dL (65-115); Osmolality Calculated 294 mOsm/kg (285-295); Sodium 139 mmol/L (136-145)
[2021-06-19 20:49] LABS: Anion Gap 19.8 (5-19); Potassium 4.8 mmol/L (3.5-5.1)
[2021-06-19 20:51] LABS: Alveolar-Arterial Oxygen Gradi 1.5 mmHg (5-10); Blood Gas Allen Test Pos; Blood Gas Sample Site Radial, left; Blood Gas Sample Type Arterial; Carboxyhemoglobin 1.7 %THgb (0.4-20.1); Methemoglobin < 0.0 % (0.4-1.5); Total Hemoglobin 8.8 g/dL (14-18)
--- NOTE | 2021-06-19 20:54 | CTR_ITS ---
PROCEDURE INFORMATION: Exam: CT Head Without Contrast Exam date and time: 06/19/2021 8:54 PM Age: 51 years old Clinical indication: Pain; Headache TECHNIQUE: Imaging protocol: Computed tomography of the head without contrast. Radiation optimization: All CT scans at this facility use at least one of these dose optimization techniques: automated exposure control; mA and/or kV adjustment per patient size (includes targeted exams where dose is matched to clinical indication); or iterative reconstruction. 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 Cerebral ventricles: No ventriculomegaly. Paranasal sinuses: There is a small air-fluid level in the right sphenoid sinus. There is mild mucosal thickening in the sphenoid sinuses. Mastoid air cells: There is fluid and/or mucosal thickening in multiple bilateral mastoid air cells. Vasculature: Calcified plaque is present within the intracranial vasculature. Bones/joints: Unremarkable. No acute fracture. Soft tissues: Unremarkable. CT/CT head wo con* [id number] IMPRESSION: 1. 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 No evidence for large acute ischemic infarction or acute intracranial injury. 2. Bilateral mastoiditis changes. 3. There is a small air-fluid level in the right sphenoid sinus consistent with acute sinusitis.
[2021-06-19] MEDS: acetaminophen 500 mg Tablet 1000 MG PO (21:10)
[2021-06-19] MEDS: metoclopramide 5 mg/mL SDV 2 mL IVP (21:10)
[2021-06-19] MEDS: sodium chloride 0.9% (100 ml) 100 ML (21:13)
[2021-06-19 21:24] LABS: NT Pro B Type Natriuretic Pept 2833 pg/mL (0-125)
[2021-06-19 22:41] LABS: Troponin 5 2HR 38.62 ng/L (0-15); Troponin 5 2HR Delta 2.62 ABS# (0-10)
[2021-06-19] MEDS: sodium chloride 0.9% 500 ML 999 ML IV (22:53)
--- NOTE | 2021-06-19 22:55 | ED_ITS ---
Documented by User: Vicenta Acosta MD 06/19/21 23:39 HPI - General Adult General: Chief complaint: Chest Pain Stated complaint: HEADACHE Time Seen by Provider: 06/19/21 20:21 History of Present Illness: HPI narrative: CC: Chest Pain and headache HPI: This is a [51] yo patient hx of congestive heart failure presenting to the ED complaining of acute sudden onset intermittent sharp chest pain at 6pm. Patient also reported headache. Per EMS, patient's house smelt like propane. Patient had headache today. He also report bloody stools (cannot recall how many episodes). [place] any history of cirrhosis, excessive NSAID use, or anticoagulation. Denies any pain WITHOUT radiation to the back or shoulders. No associated with shortness of breath, chest pain or dyspnea on exertion. Pain is not tearing in nature and does not radiate to the back. Pain not associated with vomiting or PO intake. Denies any recent sympathomimetic drug use. Patient denies any cough. Denies palpitations, dysphagia, diaphoresis, radiation of pain to bilateral arms, jaw. Denies F/N/V/D. Patient denies any recent immobility, surgery, unilateral leg swelling, or prior PE. Patient denies any orthopnea. Onset: 5 hrs ago Duration: 5 hrs Location: home Severity: mild/moderate Review of Systems Narrative: Constitutional: No fever, no chills. HEENT: No vision changes, no sore throat. CV: +chest pain, no palpitations. PULM: No cough, No dyspnea. GI: No abdominal pain, no N/V/D. : No dysuria, no frequency, no hematuria. MSKEL: No arthralgias, no edema. SKIN: No new rashes, no lesions. NEURO: +headache, no focal weakness. HEME: No easy bleeding or bruising. PSYCH: No change in mood or affect. PFSH ED PFSH: Medical History Anemia -has chronic iron deficiency anemia, baseline Hg is around 9-10 -stable H/H -was previously on iron supplementation CHF (congestive heart failure) -Echo (07/2019): EF=68%, normal diastolic function, no RWMA -on oral lasix -no acute exacerbation currently Decubitus ulcer limited to breakdown of skin (stage 2) Diabetes -NIDDM type II -A1c (11/2019): 8.2 -Accuchecks, ISS, hypoglycemia precautions -consistent carb diet -anticipate hyperglycemia with steroid use Gout Hyperlipemia, mixed Hypertension -VSS; continue to monitor -continue oral antihypertensives Morbid (severe) obesity due to excess calories OPAL (obstructive sleep apnea) -in the process of getting CPAP set up Pneumonia Psychiatric care Transient cerebral ischemia Surgical History History of adenoidectomy History of hernia repair History of tonsillectomy History of umbilical hernia repair Family History Mother Hypertension CAD (coronary artery disease) Stroke Social History Smoking and tobacco status: never smoked Second hand smoke exposure: Yes Alcohol intake: never Adopted: No Caregiver/support person: No Lives independently: Yes Household members: family and friend(s) Housing: Manufactured/Mobile home Marital status: Single Number of children: 0 Number of grandchildren: 0 Highest education level completed: 8th Grade service: No Current occupational status: disabled Pets and animals: No History of recent travel: No Leisure activites: other Leisure activities details: play card games Sexually active: No Current gender identity: Male Yolanda/Church: Other Special yolanda needs: No Agree to transfusion: Yes Financial difficulty paying for basics: Hard Physical Exam Narrative: EXAM NARRATIVE: Head: Atraumatic, normocephalic Eyes: PERRL, EOMI, conjunctiva without injection ENT: Throat without erythema, lesions or exudate, MMM, no mastoid tenderness, no TM effusion NECK: Supple, trachea midline, no JVD LUNGS: LCTA CV: RRR, S1,S2, no murmurs, rubs, gallops. 2+ peripheral pulses in UEs ABDOMEN: Soft, nontender, nondistended, BS x4, no rigidity, no guarding, no rebound EXTREMITY: Normal ROM, no pitting edema, no calf tenderness to palpation SKIN: No rash or erythema NEURO: Mental status? Awake, alert, and oriented to self, year, month, location, and situation.? Following simple axial and appendicular commands.? Has appropriate fund of knowledge, comprehension, and insight.? Able to recall and understands pertinent aspects of medical history and current treatment status.? ? Language? Speech is fluent without word-finding difficulties.? Intact naming, expression, corporate receptionist, and repetition.? ? Cranial nerves? 2,3,4,6: PERRL, EOMI with no nystagmus. 5: Intact sensation to light touch, symmetric? 7: Smile symmetrical, no facial droop.? 8: Hearing grossly intact.? 9,10: Normal palate movement.? 11: Normal strength in trapezius bilaterally 12: Tongue protrudes midline.? ? Motor examination? Normal bulk & tone. Strength as follows (R/L): Delts (5/5), Biceps (5/5), Triceps (5/5), Wrist ext (5/5), hip flexors (5/5), plantarflexors (5/5), dorsiflexors (5/5). ? Sensation? Light Touch: Grossly intact and equal in upper and lower extremities bilaterally? Romberg: Negative.? Distal joint position sense intact ? Coordination? [id number]-ua-[id number]-finger movements intact without dysmetria or past-pointing.? Rapid fingertaps: preserved amplitude without decriment.? No tremor, myoclonus or truncal ataxia.? ? Gait/stance? Steady, normal narrow base gait with appropriate arm swing and turning.? Tandem gait without hesitation or loss of balance. PSYCH: Normal mood and affect. STOOL: +no gross heavy bleeding, no hematochezia, no melena, +hemoocult positive stool Course Vital Signs: Vital signs: Vital Signs Temperature 98.4 F 06/19/21 20:15 Pulse Rate 62 06/20/21 01:31 Respiratory Rate 17 06/20/21 01:31 Blood Pressure 110/63 06/20/21 01:31 Pulse Oximetry 92 06/20/21 01:31 MDM - General Adult MDM Narrative: Medical decision making narrative: [51]yo patient w/ hx of CHF presenting to the ED with evaluation of new chest pain x 5 hrs ago, currently chest pain free. Patient also reports headache. HDS, pulse 2+ radially bilaterally, no signs of fluid overload, AAOx3, neuro exam intact. No neurological deficits. Given History and Exam today I have no suspicion for ACS, Pneumothorax, Pneumonia, Pulmonary Embolus, Tamponade, Aortic Dissection or other emergent problems as a cause for this presentation. Workup: ECG, CXR, CBC, BMP, Troponin Interventions: Reassessment Findings: ECG: No overt evidence of STEMI, hyperacute T waves, localizable STD or T wave inversions. No evidence of Brugada?s sign, delta wave, epsilon wave, significantly prolonged QTc, or malignant arrhythmia. No Q waves. Other Labs unremarkable for emergent problems. CXR: +cardiomegaly [11:15] On reassessment, the patient is HDS, no complaints of persistent chest pain in the ED after evaluation. ECG is non-ischemic. Workup today is unremarkable. Doubt ACS/PE or other emergent causes of chest pain. CT head showed b/l mastoid cell thickening. Clinically patient does not exhibit signs of mastoiditis (postauricular effusion/pain/erythema/creptitus). Since we do not have an ENT provider manager validation, I discussed case with Sandra Guillermo) from [facility] who recommended close follow up with our outpatient ENT provider Dr. Recio. Provider reported that this is likely mastoid effusion since patient does not have any clinical symptoms to suggest mastoiditism. In the mean time, given hx of sinusitits, will cover empirically with cephalexin BID and clindamycin BID per request of provider. ABG coox is negative for signs of methemoglobinemia or carbon monoxide poisoning. Patient is noted to have hemoocult positive stool. H&H consistent with prior evaluation. Given no active GI bleeding symptoms, melena or hematochezia, will given close follow up with GI. I have given patient follow up with our lead case manager to be seen by Dr. Recio from ENT for evaluation of mastoid effusion b/l. Patient aware of a call from our lead case manager to schedule for appointment(s) and verbalizes understanding of the importance of following up. I have given patient follow up with our lead case manager to be seen by our outpatient GI for posisble EGD for hemoocult positive stool. Patient aware of a call from our lead case manager to schedule for appointment(s) and verbalizes understanding of the importance of following up. Rx: Tylenol PRN pain, cephalexin/clindamycin for mastoid effusion, iron sulfate for anemia Patient is noted to have a creatinine of 1.4. Will give 500c of IVF and reassess BMP after IVF. Case signed out to Dr. Kvng Godinez. Lab Data: Labs: Lab Results 06/19/21 06/19/21 06/19/21 19:54 19:54 19:54 WBC 10.0 10^3/uL 10^3 /uL (4.0-10.0) RBC 4.05 10^6/uL L 10 ^6/uL (4.1-5.3) Hgb 9.2 g/dL L g/dL (11.7-16.6) Hct 35.3 % L % (42.0-52.0) MCV 87.2 fl fl (80-94) MCH 22.7 pg L pg (28.0-34.0) MCHC 26.1 g/dL L g/dL (30.0-36.0) RDW 20.3 % H % (12.1-15.1) Plt Count 283 10^3/cmm 10^3 /cmm (130-400) MPV 10.0 fL fL (7.4-10.4) Neut % (Auto) 79.1 % % Lymph % (Auto) 12.1 % % [place] % (Auto) 7.7 % % Eos % (Auto) 0.5 % % Baso % (Auto) 0.3 % % Neut # (Auto) 7.91 10^3/uL H 10 ^3/uL (1.8-7.7) Lymph # (Auto) 1.2 10^3/uL 10^3/ uL (0.8-4.8) [place] # (Auto) 0.8 10^3/uL 10^3/ uL (0.2-0.9) Eos # (Auto) 0.1 10^3/uL 10^3/ uL (0.0-0.8) Baso # (Auto) 0.0 10^3/uL 10^3/ uL (0.0-0.1) Nucleated RBC % (a uto) 0 % % Nucleated RBCs # 0.0 /100WBC /100W BC Specimen Type Sample Site Ulis Test A-a O2 Gradient Hematocrit Hgb O2 Saturation Carboxyhemoglobin Methemoglobin Total Hemoglobin O2 Delivery Device FiO2 Numerical Control Drill Press Operator ID Sodium 139 mmol/L mmol/L (136-145) Potassium 4.8 mmol/L mmol/L (3.5-5.1) Chloride 97 mmol/L L mmol/ L (98-107) Carbon Dioxide 27 mmol/L mmol/L (22-29) Anion Gap 19.8 H (5-19) BUN 23 mg/dL H mg/dL (6-20) Creatinine 1.4 mg/dL H mg/dL (0.7-1.2) GFR Calculation 53.9 mL/min L mL/ min (90-130) Glucose 137 mg/dL H mg/dL (65-115) Calculated Osmolal ity 294 mOsm/kg mOsm/ kg (285-295) Calcium 8.7 mg/dL mg/dL (8.5-10.5) Troponin T Baselin e 36 ng/L H ng/L (0-15) Troponin T 120 Min [place] Troponin T NT-Pro-B Natriuret Pep 06/19/21 06/19/21 06/19/21 19:54 20:38 22:08 WBC RBC Hgb Hct MCV MCH MCHC RDW Plt Count MPV Neut % (Auto) Lymph % (Auto) [place] % (Auto) Eos % (Auto) Baso % (Auto) Neut # (Auto) Lymph # (Auto) [place] # (Auto) Eos # (Auto) Baso # (Auto) Nucleated RBC % (a uto) Nucleated RBCs # Specimen Type Arterial Sample Site Radial, left Luis Test Pos A-a O2 Gradient 1.5 mmHg L mmHg (5-10) Hematocrit 27.0 % L % (42-52) Hgb O2 Saturation 85.0 % L % (95-100) Carboxyhemoglobin 1.7 %THgb %THgb (0.4-20.1) Methemoglobin < 0.0 % L % (0.4-1.5) Total Hemoglobin 8.8 g/dL L g/dL (14-18) O2 Delivery Device None FiO2 21.0 % % Numerical Control Drill Press Operator ID [email or web address] Sodium Potassium Chloride Carbon Dioxide Anion Gap BUN Creatinine GFR Calculation Glucose Calculated Osmolal ity Calcium Troponin T Baselin e Troponin T 120 Min [place] 38.62 ng/L H ng/L (0-15) Delta Troponin T 2.62 ABS# ABS# (0-10) NT-Pro-B Natriuret Pep 2833 pg/mL H pg/m L (0-125) 06/19/21 23:57 WBC RBC Hgb Hct MCV MCH MCHC RDW Plt Count MPV Neut % (Auto) Lymph % (Auto) [place] % (Auto) Eos % (Auto) Baso % (Auto) Neut # (Auto) Lymph # (Auto) [place] # (Auto) Eos # (Auto) Baso # (Auto) Nucleated RBC % (a uto) Nucleated RBCs # Specimen Type Sample Site Luis Test A-a O2 Gradient Hematocrit Hgb O2 Saturation Carboxyhemoglobin Methemoglobin Total Hemoglobin O2 Delivery Device FiO2 Numerical Control Drill Press Operator ID Sodium 140 mmol/L mmol/L (136-145) Potassium 4.4 mmol/L mmol/L (3.5-5.1) Chloride 101 mmol/L mmol/L (98-107) Carbon Dioxide 32 mmol/L H mmol/ L (22-29) Anion Gap 11.4 (5-19) BUN 23 mg/dL H mg/dL (6-20) Creatinine 1.5 mg/dL H mg/dL (0.7-1.2) GFR Calculation 49.7 mL/min L mL/ min (90-130) Glucose 111 mg/dL mg/dL (65-115) Calculated Osmolal ity 294 mOsm/kg mOsm/ kg (285-295) Calcium 8.4 mg/dL L mg/dL (8.5-10.5) Troponin T Baselin e Troponin T 120 Min [place] Troponin T NT-Pro-B Natriuret Pep Imaging Data^: Other Imaging: Radiologist's impression: [address] [id number] Scan ReportSigned Patient: Arnol Guzman #: [id number]: [id number]#:[id number]/Sex: 51 / MADM Date: 06/19/21Loc: ERRoom/Bed:Attending Dr: Ordering Provider/Ordering MD: Vicenta Acosta MD Date of Service: 06/19/21 Procedure(s): CT head wo con* [id number] Accession Number(s): [id number] Report Number: [id number] PROCEDURE INFORMATION: Exam: CT Head Without Contrast Exam date and time: 06/19/2021 8:54 PM Age: 51 years old Clinical indication: Pain; Headache TECHNIQUE: Imaging protocol: Computed tomography of the head without contrast. Radiation optimization: All CT scans at this facility use at least one of these dose optimization techniques: automated exposure control; mA and/or kV adjustment per patient size (includes targeted exams where dose is matched to clinical indication); or iterative reconstruction. 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 Cerebral ventricles: No ventriculomegaly. Paranasal sinuses: There is a small air-fluid level in the right sphenoid sinus. There is mild mucosal thickening in the sphenoid sinuses. Mastoid air cells: There is fluid and/or mucosal thickening in multiple bilateral mastoid air cells. Vasculature: Calcified plaque is present within the intracranial vasculature. Bones/joints: Unremarkable. No acute fracture. Soft tissues: Unremarkable. CT/CT head wo con* [id number] IMPRESSION: 1. 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 No evidence for large acute ischemic infarction or acute intracranial injury. 2. Bilateral mastoiditis changes. 3. There is a small air-fluid level in the right sphenoid sinus consistent with acute sinusitis. Dictated By:Divine Posada MDSigned By:Divine Posada MDSigned Date/Time:06/19/212220 [address] [id number] ReportSigned Patient: Arnol Guzman #: [id number]: [id number]#:[id number]/ Sex: 51 / MADM Date: 06/19/21Loc: ERRoom/Bed:Attending Dr: Ordering Provider/Ordering MD: Vicenta Acosta MD Date of Service: 06/19/21 Procedure(s): XR chest 1V portable [id number] Accession Number(s): [id number] Report Number: [id number] PROCEDURE INFORMATION: Exam: XR Chest Exam date and time: 06/19/2021 8:21 PM Age: 51 years old Clinical indication: Pain; Chest pressure and pain. TECHNIQUE: Imaging protocol: XR of the chest. Views: 1 view. COMPARISON: CR XR chest 1V portable [id number] 06/06/2021 12:37 PM FINDINGS: Lungs: Unremarkable. No consolidation. Pleural spaces: Unremarkable. No pleural effusion. No pneumothorax. Heart/Mediastinum: Possible cardiomegaly. Bones/joints: Unremarkable. XR/XR chest 1V portable [id number] IMPRESSION: Possible cardiomegaly.Heart size not optimally evaluated with a single AP view of the chest. Dictated By:Divine Posada MDSigned By:Divine Posada MDSigned Date/Time:06/19/212146DD/ 20 Discharge Plan Discharge Patient Disposition: Home Clinical Impression: Sinusitis, Chest pain, TEDDY (acute kidney injury), Guaiac + stool, Anemia Condition: Stable Prescriptions: New acetaminophen 500 mg tablet 500 mg PO Q6H PRN (Reason: pain) 5 Days Qty: 20 RF: 0 clindamycin HCl 300 mg capsule 300 mg PO BID 7 Days Qty: 14 RF: 0 cephalexin 500 mg capsule 500 mg PO BID 7 Days Qty: 14 RF: 0 ferrous sulfate 325 mg (65 mg iron) tablet 325 mg PO DAILY 20 Days Qty: 20 RF: 0 No Action (DME) oxygen-air delivery systems Device See Rx Instructions .ROUTE .MEDSUPPLY Qty: 1 RF: 0 albuterol sulfate 90 mcg/actuation HFA aerosol inhaler 2 puff inhalation Q6H PRN (Reason: Shortness Of Breath) RF: 0 atorvastatin [Lipitor] 80 mg Tablet 80 mg PO BEDTIME RF: 0 omeprazole 40 mg Capsule,Delayed Release(Dr/Ec) 40 mg PO QAM RF: 0 montelukast [Singulair] 10 mg Tablet 10 mg PO BEDTIME RF: 0 glipizide 10 mg Tablet Extended Release 24hr 10 mg PO BID RF: 0 aspirin 81 mg Tablet,Delayed Release (Dr/Ec) 81 mg PO QAM RF: 0 atenolol 100 mg tablet 100 mg PO QAM RF: 0 Dulera 200-5 mcg/actuation HFA aerosol inhaler 2 puff INHALATION BID RF: 0 fluconazole 150 mg tablet 150 mg PO Q7D RF: 0 allopurinol 100 mg tablet 100 mg PO QAM RF: 0 lisinopril 5 mg tablet 5 mg PO QAM RF: 0 Levemir FlexTouch U-100 Insuln 100 unit/mL (3 mL) insulin pen 6 unit SUBCUT DAILY RF: 0 Janumet 50-1,000 mg tablet 1 tab PO BID RF: 0 Diflucan 150 mg tablet 150 mg PO Q3D Qty: 2 RF: 0 Discharge Orders: Discharge ED (Routine); Ordered 06/20/21 Ordered By: Kvng Godinez Referrals: Stewart Rosario MD [Primary Care Provider] - Discharge Diet: Advance as tolerated Discharge Activity: Resume usual activity Activity Restrictions/Additional Instructions: Our lead case manager will have you follow-up with our ENT provider Dr. Recio in the next few days. You would be expected to have a phone call with our lead case manager who will put you on the schedule. Come back to the emergency room you have any fever, focal neurological weakness or any new extreme complaints. Please take your antibiotics as instructed. Watch out for signs of skin changes/redness, mouth redeness or swelling, nausea/vomiting, diarrhea, blood in the urine or any new or concerning complaints. Come back to the emergency room if your chest pain worsens, have any fever or chills, worsening shortness of breath, worsening exertional lightheadedness, or any new or concerning complaints. Our lead case manager will have you follow-up with GI in the next few days for evaluation of occult blood in your stool. You would be expected to have a phone call with our lead case manager who will put you on the schedule. Come back to the emergency room for significant rectal bleeding, right red blood per rectum, or dark stool. Come back if you have any new or concerning complaints. Coding Level of Care Code ED Hunter Skin Diver for Chg Fwd Documented by User: Kvng Godinez, 06/20/21 02:22 HPI - General Adult General: Chief complaint: Chest Pain Stated complaint: HEADACHE Time Seen by Provider: 06/19/21 20:21 PFS ED PFSH: Medical History Anemia -has chronic iron deficiency anemia, baseline Hg is around 9-10 -stable H/H -was previously on iron supplementation CHF (congestive heart failure) -Echo (07/2019): EF=68%, normal diastolic function, no RWMA -on oral lasix -no acute exacerbation currently Decubitus ulcer limited to breakdown of skin (stage 2) Diabetes -NIDDM type II -A1c (11/2019): 8.2 -Accuchecks, ISS, hypoglycemia precautions -consistent carb diet -anticipate hyperglycemia with steroid use Gout Hyperlipemia, mixed Hypertension -VSS; continue to monitor -continue oral antihypertensives Morbid (severe) obesity due to excess calories OPAL (obstructive sleep apnea) -in the process of getting CPAP set up Pneumonia Psychiatric care Transient cerebral ischemia Surgical History History of adenoidectomy History of hernia repair History of tonsillectomy History of umbilical hernia repair Family History Mother Hypertension CAD (coronary artery disease) Stroke Social History Smoking and tobacco status: never smoked Second hand smoke exposure: Yes Alcohol intake: never Adopted: No Caregiver/support person: No Lives independently: Yes Household members: family and friend(s) Housing: Manufactured/Mobile home Marital status: Single Number of children: 0 Number of grandchildren: 0 Highest education level completed: 8th Grade service: No Current occupational status: disabled Pets and animals: No History of recent travel: No Leisure activites: other Leisure activities details: play card games Sexually active: No Current gender identity: Male Yolanda/Church: Other Special yolanda needs: No Agree to transfusion: Yes Financial difficulty paying for basics: Hard Course Vital Signs: Vital signs: Vital Signs Temperature 98.4 F 06/19/21 20:15 Pulse Rate 62 06/20/21 01:31 Respiratory Rate 17 06/20/21 01:31 Blood Pressure 110/63 06/20/21 01:31 Pulse Oximetry 92 06/20/21 01:31 MDM - General Adult MDM Narrative: Medical decision making narrative: 51-year-old male checked out to me at shift change by the previous physician. Hemoglobin is stable at 9.2. His BMP on repeat shows a stable creatinine. He has no new complaints he has the above follow-up set up for him. Currently heart rate 71, oxygen saturation is 90%. Respirations are 7-10. He is resting comfortably. We will allow his discharge. I would add follow-up with his primary care physician regarding his slight increase in creatinine. Lab Data: Labs: Lab Results 06/19/21 06/19/21 06/19/21 19:54 19:54 19:54 WBC 10.0 10^3/uL 10^3 /uL (4.0-10.0) RBC 4.05 10^6/uL L 10 ^6/uL (4.1-5.3) Hgb 9.2 g/dL L g/dL (11.7-16.6) Hct 35.3 % L % (42.0-52.0) MCV 87.2 fl fl (80-94) MCH 22.7 pg L pg (28.0-34.0) MCHC 26.1 g/dL L g/dL (30.0-36.0) RDW 20.3 % H % (12.1-15.1) Plt Count 283 10^3/cmm 10^3 /cmm (130-400) MPV 10.0 fL fL (7.4-10.4) Neut % (Auto) 79.1 % % Lymph % (Auto) 12.1 % % [place] % (Auto) 7.7 % % Eos % (Auto) 0.5 % % Baso % (Auto) 0.3 % % Neut # (Auto) 7.91 10^3/uL H 10 ^3/uL (1.8-7.7) Lymph # (Auto) 1.2 10^3/uL 10^3/ uL (0.8-4.8) [place] # (Auto) 0.8 10^3/uL 10^3/ uL (0.2-0.9) Eos # (Auto) 0.1 10^3/uL 10^3/ uL (0.0-0.8) Baso # (Auto) 0.0 10^3/uL 10^3/ uL (0.0-0.1) Nucleated RBC % (a uto) 0 % % Nucleated RBCs # 0.0 /100WBC /100W BC Specimen Type Sample Site Luis Test A-a O2 Gradient Hematocrit Hgb O2 Saturation Carboxyhemoglobin Methemoglobin Total Hemoglobin O2 Delivery Device FiO2 Numerical Control Drill Press Operator ID Sodium 139 mmol/L mmol/L (136-145) Potassium 4.8 mmol/L mmol/L (3.5-5.1) Chloride 97 mmol/L L mmol/ L (98-107) Carbon Dioxide 27 mmol/L mmol/L (22-29) Anion Gap 19.8 H (5-19) BUN 23 mg/dL H mg/dL (6-20) Creatinine 1.4 mg/dL H mg/dL (0.7-1.2) GFR Calculation 53.9 mL/min L mL/ min (90-130) Glucose 137 mg/dL H mg/dL (65-115) Calculated Osmolal ity 294 mOsm/kg mOsm/ kg (285-295) Calcium 8.7 mg/dL mg/dL (8.5-10.5) Troponin T Baselin e 36 ng/L H ng/L (0-15) Troponin T 120 Min [place] Troponin T NT-Pro-B Natriuret Pep 06/19/21 06/19/21 06/19/21 19:54 20:38 22:08 WBC RBC Hgb Hct MCV MCH MCHC RDW Plt Count MPV Neut % (Auto) Lymph % (Auto) [place] % (Auto) Eos % (Auto) Baso % (Auto) Neut # (Auto) Lymph # (Auto) [place] # (Auto) Eos # (Auto) Baso # (Auto) Nucleated RBC % (a uto) Nucleated RBCs # Specimen Type Arterial Sample Site Radial, left Luis Test Pos A-a O2 Gradient 1.5 mmHg L mmHg (5-10) Hematocrit 27.0 % L % (42-52) Hgb O2 Saturation 85.0 % L % (95-100) Carboxyhemoglobin 1.7 %THgb %THgb (0.4-20.1) Methemoglobin < 0.0 % L % (0.4-1.5) Total Hemoglobin 8.8 g/dL L g/dL (14-18) O2 Delivery Device None FiO2 21.0 % % Numerical Control Drill Press Operator ID [email or web address] Sodium Potassium Chloride Carbon Dioxide Anion Gap BUN Creatinine GFR Calculation Glucose Calculated Osmolal ity Calcium Troponin T Baselin e Troponin T 120 Min [place] 38.62 ng/L H ng/L (0-15) Delta Troponin T 2.62 ABS# ABS# (0-10) NT-Pro-B Natriuret Pep 2833 pg/mL H pg/m L (0-125) 06/19/21 23:57 WBC RBC Hgb Hct MCV MCH MCHC RDW Plt Count MPV Neut % (Auto) Lymph % (Auto) [place] % (Auto) Eos % (Auto) Baso % (Auto) Neut # (Auto) Lymph # (Auto) [place] # (Auto) Eos # (Auto) Baso # (Auto) Nucleated RBC % (a uto) Nucleated RBCs # Specimen Type Sample Site Luis Test A-a O2 Gradient Hematocrit Hgb O2 Saturation Carboxyhemoglobin Methemoglobin Total Hemoglobin O2 Delivery Device FiO2 Numerical Control Drill Press Operator ID Sodium 140 mmol/L mmol/L (136-145) Potassium 4.4 mmol/L mmol/L (3.5-5.1) Chloride 101 mmol/L mmol/L (98-107) Carbon Dioxide 32 mmol/L H mmol/ L (22-29) Anion Gap 11.4 (5-19) BUN 23 mg/dL H mg/dL (6-20) Creatinine 1.5 mg/dL H mg/dL (0.7-1.2) GFR Calculation 49.7 mL/min L mL/ min (90-130) Glucose 111 mg/dL mg/dL (65-115) Calculated Osmolal ity 294 mOsm/kg mOsm/ kg (285-295) Calcium 8.4 mg/dL L mg/dL (8.5-10.5) Troponin T Baselin e Troponin T 120 Min [place] Troponin T NT-Pro-B Natriuret Pep Discharge Plan Discharge Patient Disposition: Home Clinical Impression: Sinusitis, Chest pain, TEDDY (acute kidney injury), Guaiac + stool, Anemia Condition: Stable Prescriptions: New acetaminophen 500 mg tablet 500 mg PO Q6H PRN (Reason: pain) 5 Days Qty: 20 RF: 0 clindamycin HCl 300 mg capsule 300 mg PO BID 7 Days Qty: 14 RF: 0 cephalexin 500 mg capsule 500 mg PO BID 7 Days Qty: 14 RF: 0 ferrous sulfate 325 mg (65 mg iron) tablet 325 mg PO DAILY 20 Days Qty: 20 RF: 0 No Action (DME) oxygen-air delivery systems Device See Rx Instructions .ROUTE .MEDSUPPLY Qty: 1 RF: 0 albuterol sulfate 90 mcg/actuation HFA aerosol inhaler 2 puff inhalation Q6H PRN (Reason: Shortness Of Breath) RF: 0 atorvastatin [Lipitor] 80 mg Tablet 80 mg PO BEDTIME RF: 0 omeprazole 40 mg Capsule,Delayed Release(Dr/Ec) 40 mg PO QAM RF: 0 montelukast [Singulair] 10 mg Tablet 10 mg PO BEDTIME RF: 0 glipizide 10 mg Tablet Extended Release 24hr 10 mg PO BID RF: 0 aspirin 81 mg Tablet,Delayed Release (Dr/Ec) 81 mg PO QAM RF: 0 atenolol 100 mg tablet 100 mg PO QAM RF: 0 Dulera 200-5 mcg/actuation HFA aerosol inhaler 2 puff INHALATION BID RF: 0 fluconazole 150 mg tablet 150 mg PO Q7D RF: 0 allopurinol 100 mg tablet 100 mg PO QAM RF: 0 lisinopril 5 mg tablet 5 mg PO QAM RF: 0 Levemir FlexTouch U-100 Insuln 100 unit/mL (3 mL) insulin pen 6 unit SUBCUT DAILY RF: 0 Janumet 50-1,000 mg tablet 1 tab PO BID RF: 0 Diflucan 150 mg tablet 150 mg PO Q3D Qty: 2 RF: 0 Discharge Orders: Discharge ED (Routine); Ordered 06/20/21 Ordered By: Kvng Godinez Referrals: Stewart Rosario MD [Primary Care Provider] - Discharge Diet: Advance as tolerated Discharge Activity: Resume usual activity Activity Restrictions/Additional Instructions: Our lead case manager will have you follow-up with our ENT provider Dr. Recio in the next few days. You would be expected to have a phone call with our lead case manager who will put you on the schedule. Come back to the emergency room you have any fever, focal neurological weakness or any new extreme complaints. Please take your antibiotics as instructed. Watch out for signs of skin changes/redness, mouth redeness or swelling, nausea/vomiting, diarrhea, blood in the urine or any new or concerning complaints. Come back to the emergency room if your chest pain worsens, have any fever or chills, worsening shortness of breath, worsening exertional lightheadedness, or any new or concerning complaints. Our lead case manager will have you follow-up with GI in the next few days for evaluation of occult blood in your stool. You would be expected to have a phone call with our lead case manager who will put you on the schedule. Come back to the emergency room for significant rectal bleeding, right red blood per rectum, or dark stool. Come back if you have any new or concerning complaints. Coding Level of Care Code ED Hunter Skin Diver for Zac Pickett
--- NOTE | 2021-06-19 23:22 | PC.NURSE ---
Fire dept cleared pt's apt upon admission to ED for gas leak
[2021-06-20 00:53] LABS: Anion Gap 11.4 (5-19); Blood Urea Nitrogen 23 mg/dL (6-20); Calcium 8.4 mg/dL (8.5-10.5); Carbon Dioxide 32 mmol/L (22-29); Chloride 101 mmol/L (98-107); Glomerular Filtration Rate 49.7 mL/min (90-130); Glucose 111 mg/dL (65-115); Osmolality Calculated 294 mOsm/kg (285-295); Potassium 4.4 mmol/L (3.5-5.1); Sodium 140 mmol/L (136-145)
[2021-06-20 01:31] VITALS: BP 110/63; PULSE 62; RESP 17; O2SAT 92
[2021-06-20 02:43] LABS: Troponin 5 6HR 38.33 ng/L (0-15); Troponin 5 6HR Delta 2.33 ng/L (0-12)
[2021-06-20 04:32] VITALS: BP 137/81; PULSE 71; RESP 20; TEMP 36.9; O2SAT 93
[2021-06-20 06:45] VITALS: BP 137/81; PULSE 75; RESP 20; TEMP 36.9; O2SAT 93
[2021-06-20 07:57] VITALS: PULSE 81; O2SAT 94
== END 2021-06-20 08:56 | disposition home or self-care (01) ==
PROVIDERS: Emergency Medicine; Emergency Provider Emergency Medicine; PCP Family Medicine
DX: R07.9 Chest pain, unspecified (principal); J32.9 Chronic sinusitis, unspecified; N17.9 Acute kidney failure, unspecified; R19.5 Other fecal abnormalities; D64.9 Anemia, unspecified; Z79.84 Long term (current) use of oral hypoglycemic drugs; Z79.82 Long term (current) use of aspirin; Z79.4 Long term (current) use of insulin; I11.0 Hypertensive heart disease with heart failure; I50.9 Heart failure, unspecified; E11.9 Type 2 diabetes mellitus without complications; E78.2 Mixed hyperlipidemia; Z77.22 Contact with and (suspected) exposure to environmental tobacco smoke (acute) (chronic)
CPT/HCPCS: 36415; 70450; 71045; 80048; 82810; 83880; 84484; 85025; 93005; 96374; 99284; J2765; J7040

== ENCOUNTER 2021-06-20 11:38 | Inpatient (IN) | payer MEDICAID, SELFPAY ==
[2021-06-20 11:48] VITALS: BP 123/59; PULSE 76; RESP 18; TEMP 36.6; O2SAT 90; BMI 64.2
[2021-06-20 12:01] VITALS: O2SAT 90
--- NOTE | 2021-06-20 12:08 | PC.NURSE ---
Pt oriented to safe/psych room upon arrival to ED. Pt asked to changed into paper scrub pants and pt gown. Pt states he cannot put his own clothes on. Spoke with ed physician and holding off on urinalysis and blood draw because pt had them drawn and resulted earlier today.
--- NOTE | 2021-06-20 12:13 | ED_ITS ---
HPI - General Adult General: Chief complaint: Psychiatric Symptoms Stated complaint: SUICIDAL IDEATIONS Time Seen by Provider: 06/20/21 11:38 History of Present Illness: HPI narrative: HPI: [51]yo patient w/ hx of intellectual disability, depression, CHF presenting for suicidal ideation. Patient has no concrete plan. On arrival, the patient is AAOx3 and cooperative with my evaluation. No focal complaints of chest pain, shortness of breath, palpitations, N/V, focal GI/ complaints. Denies HI. No complaints of hallucinations. Onset: acute x 1 day Duration: ongoing Location: home Severity: severe Review of Systems Narrative: Constitutional: No fever, no chills. HEENT: No vision changes CV: No chest pain, no palpitations PULM: No productive cough, no dyspnea. GI: No abdominal pain, no N/V/D. : No dysuria MSKEL: No muscle pain SKIN: No new rashes, no lesions. NEURO: No headache, no focal weakness. HEME: No visible bruises PSYCH: Normal mood, +suicidal ideation PFSH ED PFSH: Medical History Anemia -has chronic iron deficiency anemia, baseline Hg is around 9-10 -stable H/H -was previously on iron supplementation CHF (congestive heart failure) -Echo (07/2019): EF=68%, normal diastolic function, no RWMA -on oral lasix -no acute exacerbation currently Decubitus ulcer limited to breakdown of skin (stage 2) Diabetes -NIDDM type II -A1c (11/2019): 8.2 -Accuchecks, ISS, hypoglycemia precautions -consistent carb diet -anticipate hyperglycemia with steroid use Gout Hyperlipemia, mixed Hypertension -VSS; continue to monitor -continue oral antihypertensives Morbid (severe) obesity due to excess calories OPAL (obstructive sleep apnea) -in the process of getting CPAP set up Pneumonia Psychiatric care Transient cerebral ischemia Surgical History History of adenoidectomy History of hernia repair History of tonsillectomy History of umbilical hernia repair Family History Mother Hypertension CAD (coronary artery disease) Stroke Social History (Reviewed 06/20/21 @ 07:10 by FRANSISCO Manjarrez Smoking and tobacco status: never smoked Second hand smoke exposure: Yes Alcohol intake: never Adopted: No Caregiver/support person: No Lives independently: Yes Household members: family and friend(s) Housing: Manufactured/Mobile home Marital status: Single Number of children: 0 Number of grandchildren: 0 Highest education level completed: 8th Grade service: No Current occupational status: disabled Pets and animals: No History of recent travel: No Leisure activites: other Leisure activities details: play card games Sexually active: No Current gender identity: Male Yolanda/Taoism: Other Special yolanda needs: No Agree to transfusion: Yes Financial difficulty paying for basics: Hard Physical Exam Narrative: EXAM NARRATIVE: Head: Atraumatic Eyes: PERRL, conjunctiva without injection, eyes tracking ENT: Mucous membrane moist NECK: Supple without lymphadenopathy LUNGS: LCTAB CV: RRR ABDOMEN: Soft, nontender EXTREMITY: Normal ROM SKIN: No rash or erythema NEURO: Awake and alert. No focal weakness PSYCH: Cooperative mood and affect. Course Vital Signs: Vital signs: Vital Signs Temperature 98.4 F 06/20/21 16:31 Pulse Rate 80 06/20/21 16:31 Respiratory Rate 18 06/20/21 16:31 Blood Pressure 123/59 06/20/21 11:48 Pulse Oximetry 96 06/20/21 16:31 MDM - General Adult MDM Narrative: Medical decision making narrative: [51]yo patient w/ hx of depression, intellectual disability presenting for suicidal ideation. HDS, exam within normal limit Thoughts are linear and organized, and the patient has no AH/VH, or HI. Clinically the patient displays no overt toxidrome; they are well appearing, with low suspicion for toxic ingestion given history and exam. Symptoms unlikely 2/2 anemia, hypothyroidism, infection, or ICH. Workup: CBC, CMP, Lipase, salicylate/tylenol, UDS Lab findings: wnl [5:21pm] On reassessment, labs and workup wnl. Patient is hemodynamically stable with no acute medical complaints. Case discussed with psychiatric provider Dr. Kelley at [facility] psych inpatient with recommendation for admission Disposition: Psych Lab Data: Labs: Lab Results 06/20/21 06/20/21 06/20/21 13:14 13:14 16:10 WBC 7.0 10^3/uL 10^3/ uL (4.0-10.0) RBC 3.80 10^6/uL L 10 ^6/uL (4.1-5.3) Hgb 8.5 g/dL L g/dL (11.7-16.6) Hct 33.2 % L % (42.0-52.0) MCV 87.4 fl fl (80-94) MCH 22.4 pg L pg (28.0-34.0) MCHC 25.6 g/dL L g/dL (30.0-36.0) RDW 20.2 % H % (12.1-15.1) Plt Count 238 10^3/cmm 10^3 /cmm (130-400) MPV 9.2 fL fL (7.4-10.4) Neut % (Auto) 77.2 % % Lymph % (Auto) 13.8 % % [place] % (Auto) 7.9 % % Eos % (Auto) 0.4 % % Baso % (Auto) 0.4 % % Neut # (Auto) 5.37 10^3/uL 10^3 /uL (1.8-7.7) Lymph # (Auto) 1.0 10^3/uL 10^3/ uL (0.8-4.8) [place] # (Auto) 0.6 10^3/uL 10^3/ uL (0.2-0.9) Eos # (Auto) 0.0 10^3/uL 10^3/ uL (0.0-0.8) Baso # (Auto) 0.0 10^3/uL 10^3/ uL (0.0-0.1) Nucleated RBC % (a uto) 0 % % Nucleated RBCs # 0.0 /100WBC /100W BC Sodium 138 mmol/L mmol/L (136-145) Potassium 4.5 mmol/L mmol/L (3.5-5.1) Chloride 99 mmol/L mmol/L (98-107) Carbon Dioxide 33 mmol/L H mmol/ L (22-29) Anion Gap 10.5 (5-19) BUN 28 mg/dL H mg/dL (6-20) Creatinine 1.5 mg/dL H mg/dL (0.7-1.2) GFR Calculation 49.7 mL/min L mL/ min (90-130) Glucose 120 mg/dL H mg/dL (65-115) Calculated Osmolal ity 293 mOsm/kg mOsm/ kg (285-295) Calcium 8.6 mg/dL mg/dL (8.5-10.5) Salicylates < 0.3 mg/dL L mg/ dL (3-10) Urine Opiates Scre en Negative ng/mL ng /mL (Negative) Acetaminophen < 5.0 ug/mL L ug/ mL (10-30) Ur Barbiturates Sc reen Negative ng/mL ng /mL (Negative) Ur Phencyclidine S crn Negative ng/mL ng /mL (Negative) Ur Amphetamines Sc reen Negative ng/mL ng /mL (Negative) U Benzodiazepines Scrn Negative ng/mL ng /mL (Negative) Urine Cocaine Scre en Negative ng/mL ng /mL (Negative) U Marijuana (THC) Screen Negative ng/mL ng /mL (Negative) Discharge Plan Discharge Patient Disposition: Admitted As Inpatient Clinical Impression: Depression Condition: Stable Coding Level of Care Code ED Eyeglass Maker for Zac Pickett
--- NOTE | 2021-06-20 13:12 | PC.PHAR ---
pt states he takes care of his own medications-pt states he is unsure if he is taking keflex 500mg bid and clindamycin 300mg bid both written on 06/28/21 ext med history doesnt show when filled- levemir flextouch last filled 02/03/21 6 units daily pt states he hasnt used in a while-notes are made in the pharmacy comments
[2021-06-20 13:36] LABS: Basophils % 0.4 %; Eosinophils % 0.4 %; Hematocrit 33.2 % (42.0-52.0); Hemoglobin 8.5 g/dL (11.7-16.6); Lymphocytes % 13.8 %; Mean Corpuscular HGB Conc 25.6 g/dL (30.0-36.0); Mean Corpuscular Hemoglobin 22.4 pg (28.0-34.0); Mean Corpuscular Volume 87.4 fl (80-94); Mean Platelet Volume 9.2 fL (7.4-10.4); Monocytes # 0.6 10^3/uL (0.2-0.9); Monocytes % 7.9 %; Neutrophils # 5.37 10^3/uL (1.8-7.7); Neutrophils % 77.2 %; Nucleated Red Blood Cells % 0 %; Platelet Count 238 10^3/cmm (130-400); Red Cell Distribution Width 20.2 % (12.1-15.1)
[2021-06-20 13:55] LABS: Anion Gap 10.5 (5-19); Blood Urea Nitrogen 28 mg/dL (6-20); Calcium 8.6 mg/dL (8.5-10.5); Carbon Dioxide 33 mmol/L (22-29); Chloride 99 mmol/L (98-107); Glomerular Filtration Rate 49.7 mL/min (90-130); Glucose 120 mg/dL (65-115); Osmolality Calculated 293 mOsm/kg (285-295); Potassium 4.5 mmol/L (3.5-5.1); Sodium 138 mmol/L (136-145)
[2021-06-20 13:57] LABS: Acetaminophen < 5.0 ug/mL (10-30); Salicylate < 0.3 mg/dL (3-10)
--- NOTE | 2021-06-20 14:30 | PC.NURSE ---
pt sleeping soundly, even and snoring respirations heard. captain room service remains at bedside
--- NOTE | 2021-06-20 16:24 | PC.NURSE ---
pt's sister in waiting room, ED nurse and ED physician went to speak with her and update her. Pt's sister states pt at baseline can do all of his ADL's except wiping his bottom and tying his shoes. Nurse explained to family that we had not witnessed this during ED. Sister wanted it to be known that she would like for him to be admitted. Pt rounded on. given food and drink. helped with positioning as he could not sit himself up in bed .
[2021-06-20 16:31] VITALS: PULSE 80; RESP 18; TEMP 36.9; O2SAT 96
[2021-06-20 16:33] LABS: Amphetamines Screen Urine Negative (Negative); Barbiturates Screen Urine Negative (Negative); Benzodiazepines Screen Urine Negative (Negative); Cocaine Screen Urine Negative (Negative); Opiate Screen Urine Negative (Negative); PCP Screen Urine Negative (Negative); THC Screen Urine Negative (Negative)
--- NOTE | 2021-06-20 17:26 | PC.NURSE ---
patient requesting to see nurse. spoke with him and he is wanting to know status of admission or not. Advised patient Psych physician will come back and re-evaluate and determine admission status. patient verbalized understanding. Cares met. Area free of hazards. direct observation.
--- NOTE | 2021-06-20 23:55 | PC.NURSE ---
Pillow case was placed between folds of abdomen for comfort.
--- NOTE | 2021-06-21 01:51 | PC.NURSE ---
Pt was assisted in transferring from bed to bedside commode. Pt moved himself from bedside commode to bed. Pt was assisted in lifting legs in the bed. Pt was placed in the position of comfort.
[2021-06-21 02:35] LABS: Glucose Point of Care 115 mg/dL (70-110)
[2021-06-21] MEDS: HYDROcodone-acetaminophen 7.5-325 mg Tablet 1 TAB PO (04:13)
[2021-06-21 06:00] VITALS: PULSE 86; RESP 20; O2SAT 92
--- NOTE | 2021-06-21 07:20 | W.PM.PSYCONS ---
Providers/Reason for Consult Consulting Physican/Specialty*: Tyshawn Kelley MD. Psychiatry. Reason for Consult*: Assessment for possibility for discharge versus inpatient Attending Physician: Dave Yadav MD Primary Care Provider: Stewart Rosario MD Psych Consult HPI History of Present Illness Arnol Guzman is a 51 year old male who presented to the emergency department with the following report: Chief complaint: Psychiatric Symptoms Stated complaint: SUICIDAL IDEATIONS Time Seen by Provider: 06/20/21 11:38 History of Present Illness: HPI narrative: HPI: [51]yo patient w/ hx of intellectual disability, depression, CHF presenting for suicidal ideation. Patient has no concrete plan. On arrival, the patient is AAOx3 and cooperative with my evaluation. No focal complaints of chest pain, shortness of breath, palpitations, N/V, focal GI/ complaints. Denies HI. No complaints of hallucinations. Onset: acute x 1 day Duration: ongoing Location: home Severity: severe. Psychiatric consult was requested as he was endorsing suicidality. Patient presents today endorsing a long history of psychiatric care reporting hospitalizations in the past reports the last hospitalization was in at [facility]. Reports that that is happened multiple times. Since then he has been at [facility] and having follow-up fairly regularly until the last month. He reports that he is depressed and he is unable to contract for safety outside the hospital. He reports that his circumstances at home seem futile. He reports that he was not doing well with his medications and feeling depressed and anxious. He reports he been having panic attacks and things of that nature. And he cannot be managed safely at home. He reportedly has home health care that comes in a couple times a week and assist him with his overall care. Based on the odor in the room and his body habitus is very likely that he is able to manage basic tasks like wiping after having a bowel movement and cleaning his body appropriately. According to him the person that comes in a couple times a week does help with showering and cleaning himself in a limited fashion. His sister who is reportedly his POA presents reporting that she is really worried about his safety. Multiple calls were made including to [facility] who reports that he had a call from this patient regarding coming to the hospital because of a possible overdose with a report that he was very cagey and answering their questions. He has been to the emergency department multiple times in the past week and months. He could not recall the specific names of his medications and reports that he would desire inpatient care somewhere. Psychiatric history: As above. Substance use history: He denied any significant substance abuse issues. Family history: He denies any mental health or addiction issues that ran in the family. Developmental history: He denies any issues at or problems during the walking talk, he was unclear about his academic/intellectual circumstances but his sister suggested that he might have some deficits. Psychosocial history: He reports he has a couple of sisters one is his POA. He denies that his family is close by her that anybody checks on him regularly. His sister does report that there is an hour to an hour and a half away. He has no significant social connections that he reports. No occupation or occupational interest. Legal history: Denied. Medical history: Please see ED note for full details. But he endorses diabetes, morbid obesity, high blood pressure, gout. PFSH NPU PFSH: Medical History Anemia -has chronic iron deficiency anemia, baseline Hg is around 9-10 -stable H/H -was previously on iron supplementation CHF (congestive heart failure) -Echo (07/2019): EF=68%, normal diastolic function, no RWMA -on oral lasix -no acute exacerbation currently Decubitus ulcer limited to breakdown of skin (stage 2) Diabetes -NIDDM type II -A1c (11/2019): 8.2 -Accuchecks, ISS, hypoglycemia precautions -consistent carb diet -anticipate hyperglycemia with steroid use Gout Hyperlipemia, mixed Hypertension -VSS; continue to monitor -continue oral antihypertensives Morbid (severe) obesity due to excess calories OPAL (obstructive sleep apnea) -in the process of getting CPAP set up Pneumonia Psychiatric care Transient cerebral ischemia Surgical History History of adenoidectomy History of hernia repair History of tonsillectomy History of umbilical hernia repair Family History Mother Hypertension CAD (coronary artery disease) Stroke Social History Smoking and tobacco status: never smoked Second hand smoke exposure: Yes Alcohol intake: never Adopted: No Caregiver/support person: No Lives independently: Yes Household members: family and friend(s) Housing: Manufactured/Mobile home Marital status: Single Number of children: 0 Number of grandchildren: 0 Highest education level completed: 8th Grade service: No Current occupational status: disabled Pets and animals: No History of recent travel: No Leisure activites: other Leisure activities details: play card games Sexually active: No Current gender identity: Male Yolanda/Islam: Other Special yolanda needs: No Agree to transfusion: Yes Financial difficulty paying for basics: Hard Mental Status Exam MSE Comments: This is a morbidly obese white male in a hospital gown with limited grooming and eye contact. Fairly disheveled and malodorous. No abnormal movements except for psychomotor retardation cooperative with exam in mild distress. Speech was decreased rate and volume and with significant dysarthria secondary to the extra tissue around his throat and mouth. Mood described as depressed and anxious, affect subdued. Thought process organized. Thought content: Patient endorsed suicidal thoughts, there were no delusions reported or noted, he denied any auditory visualizations. Attention and concentration were intact and memory appeared reliable and were formally tested. He is alert and oriented x3. Insight and judgment are impaired, impulse control is impaired. Vitals/I&O/Wt Last Vital Signs Temp 98.4 F 06/20/21 16:31 Pulse 86 06/21/21 06:00 Resp 20 H 06/21/21 06:00 BP 123/59 06/20/21 11:48 Pulse Ox 92 06/21/21 06:00 Weight last 48 hrs Weight 154.221 kg A&P Assessment and plan (1) Abdominal pain: Status: Acute Qualifiers: Abdominal location: generalized Qualified Code(s): R10.84 - Generalized abdominal pain (2) Constipation: Status: Acute Qualifiers: Constipation type: unspecified constipation type Qualified Code(s): K59.00 - Constipation, unspecified (3) Panniculitis: Status: Acute (4) Sinusitis: Status: Acute (5) Chest pain: Status: Acute (6) TEDDY (acute kidney injury): Status: Acute (7) Guaiac + stool: Status: Acute (8) Anemia: Status: Acute (9) Depression: Status: Acute (10) Spondylisthesis: Status: Acute (11) Cerebral infarction, watershed distribution, unilateral, acute: Status: Acute (12) Acute right arterial ischemic stroke, middle cerebral artery (MCA): Status: Acute (13) Vasogenic cerebral edema: Status: Acute (14) Rhabdomyolysis: Status: Acute (15) Acute metabolic encephalopathy: Status: Acute (16) Acute kidney injury (TEDDY) with acute tubular necrosis (ATN): Status: Acute (17) ARDS (adult respiratory distress syndrome): Status: Acute (18) Multiorgan failure: Status: Acute (19) Acute renal failure: Status: Acute (20) Acquired urinary meatal stenosis: Status: Acute (21) Acute respiratory failure with hypoxia: Status: Acute (22) Pneumonia: Status: Acute Qualifiers: Laterality: left Lung location: upper lobe of lung Pneumonia type: due to unspecified organism Qualified Code(s): J18.9 - Pneumonia, unspecified organism (23) Sepsis: Status: Acute Qualifiers: Sepsis acute organ dysfunction status: without acute organ dysfunction Sepsis type: sepsis due to unspecified organism Qualified Code(s): A41.9 - Sepsis, unspecified organism (24) Anxiety: Status: Acute (25) Suicidal ideation: Status: Acute Additional A&P Information This is a morbidly obese 51-year-old white male with a long history of mental health treatment and multiple medical comorbidities who presents reporting suicidal thoughts. 1. Continue current medication. 2. Recommend inpatient psychiatric care in the facility where his additional physical needs can be managed. 3. We will continue to follow. Attestations NPU Medical Necessity Statement*: N/A. Please see primary team note for medical necessity however currently is endorsing suicidality with family concerns of suicidality Shun needing inpatient psychiatric care to protect from lethal behavior. Coding Level of Care Code Acute Immigration Lawyer for Chg Fwd Diagnoses Abdominal pain R10.84 Abdominal location: generalized Constipation K59.00 Constipation type: unspecified constipation type Panniculitis M79.3 Sinusitis J32.9 Chest pain R07.9 TEDDY (acute kidney injury) N17.9 Guaiac + stool R19.5 Anemia D64.9 Depression F32.A Spondylisthesis M43.10 Cerebral infarction, watershed distribution, unilateral, acute I63.89 Acute right arterial ischemic stroke, middle cerebral artery (MCA) I63.511 Vasogenic cerebral edema G93.6 Rhabdomyolysis M62.82 Acute metabolic encephalopathy G93.41 Acute kidney injury (TEDDY) with acute tubular necrosis (ATN) N17.0 ARDS (adult respiratory distress syndrome) J80 Multiorgan failure Acute renal failure N17.9 Acquired urinary meatal stenosis Acute respiratory failure with hypoxia J96.01 Pneumonia J18.9 Laterality: left Lung location: upper lobe of lung Pneumonia type: due to unspecified organism Sepsis A41.9 Sepsis acute organ dysfunction status: without acute organ dysfunction Sepsis type: sepsis due to unspecified organism Anxiety F41.9 Suicidal ideation R45.851
[2021-06-21 08:00] VITALS: PULSE 86; RESP 20; TEMP 36.9; O2SAT 92
[2021-06-21] MEDS: acetaminophen 500 mg Tablet 1000 MG PO (08:04)
[2021-06-21 09:11] VITALS: PULSE 86; RESP 20; TEMP 36.9; O2SAT 92
[2021-06-21 20:54] VITALS: BP 147/76; PULSE 76; O2SAT 97
[2021-06-21 20:55] VITALS: BMI 74.1
[2021-06-21 21:02] VITALS: BP 156/68; PULSE 73; RESP 19; TEMP 36.4; O2SAT 98
[2021-06-22] VITALS (8 sets, daily range): BP systolic 122–137; BP diastolic 64–73; PULSE 65–83; RESP 16–20; TEMP 36.4–36.9; O2SAT 90–93
[2021-06-22 04:56] LABS: Glucose Point of Care 159 mg/dL (70-110)
[2021-06-22 06:49] LABS: Glucose Point of Care 115 mg/dL (70-110)
[2021-06-22 06:53] LABS: Glucose Point of Care 210 mg/dL (70-110)
--- NOTE | 2021-06-22 08:03 | ECG_ITS ---
[facility] Test Date: 2021-06-22 Pat Name: Arnol Guzman Department: Room: 253 Gender: Male Junior Mechanical Engineer: : 1970 Requested By: Ama Lorenzo Order Number: [id number] Bernardino MD: aTy Mireles M.D. Measurements Intervals [place] Rate: 90 P: 82 MS: 173 QRS: 113 QRSD: 96 T: 116 QT: 331 QTc: 406 Interpretive Statements SINUS RHYTHM INCOMPLETE RIGHT BUNDLE BRANCH BLOCK [90+ ms QRS DURATION, TERMINAL R IN V1/V2, 40+ ms S IN I/aVL/V4/V5/V6] POSSIBLE RIGHT VENTRICULAR HYPERTROPHY [SOME/ALL OF: PROMINENT R IN V1, LATE TRANSITION, RAD, LEAH, SSS] Compared to ECG 06/19/2021 20:52:24 No significant changes Electronically Signed On 06-22-2021 22:10:55 OBSTETRICAL ANESTHESIOLOGIST by Tay Mireles M.D. [email or web address]
--- NOTE | 2021-06-22 08:32 | W.PM.NPUH&PS ---
Providers/Chief Complaint Admitting Physician: Tyshawn Kelley MD Primary Care Provider: Stewart Rosario MD Chief Complaint: SUICIDAL IDEATIONS HPI NPU History of Present Illness Arnol Guzman is a 51 year old male who presented to the emergency department multiple days in a row with complaints mostly physical but on his presentation on June 19, 2021 he endorsed being unsafe to go home. Multiple calls were made to discuss his situation with his treatment team at [facility] [place] as well as his sister that is his POA and additionally there were affidavits on his chart 1 of which identified that his gas was on when the EMT got to his home. Raising significant questions about the safety of him returning home without some psychiatric intervention. Consideration of admission to the [facility] inpatient psychiatric unit was made however due to staffing and acuity the ability to handle him, his physical needs and his medical needs including O2 continuously on a psychiatric unit for 2 months for the unit at this current time and staffing. Multiple attempts were made to identify alternative units including those that might specialize in geriatric care given his needs were more consistent with a geriatric patient, however there were no options available. And given the emergency room [facility] and the inability for him to manage his at [facility] inpatient psychiatric unit he was admitted to the [facility] unit for ongoing treatment and evaluation. A psychiatric consult was done yesterday and an excerpt from that note is included below for context. Also he was unable to really identify his medication so and working with the nurse to get clarification of what is taking so we can then begin to evaluate what we can add or subtract to help with his anxiety or depression. Per his 06/21/2021 [facility] emergency room consult: History of Present Illness Arnol Guzman is a 51 year old male who presented to the emergency department with the following report: Chief complaint: Psychiatric Symptoms Stated complaint: SUICIDAL IDEATIONS Time Seen by Provider: 06/20/21 11:38 History of Present Illness: HPI narrative: HPI: [51]yo patient w/ hx of intellectual disability, depression, CHF presenting for suicidal ideation. Patient has no concrete plan. On arrival, the patient is AAOx3 and cooperative with my evaluation. No focal complaints of chest pain, shortness of breath, palpitations, N/V, focal GI/ complaints. Denies HI. No complaints of hallucinations. Onset: acute x 1 day Duration: ongoing Location: home Severity: severe. Psychiatric consult was requested as he was endorsing suicidality. Patient presents today endorsing a long history of psychiatric care reporting hospitalizations in the past reports the last hospitalization was in 19-here at [facility]. Reports that that is happened multiple times. Since then he has been at [facility] [place] and having follow-up fairly regularly until the last month. He reports that he is depressed and he is unable to contract for safety outside the hospital. He reports that his circumstances at home seem futile. He reports that he was not doing well with his medications and feeling depressed and anxious. He reports he been having panic attacks and things of that nature. And he cannot be managed safely at home. He reportedly has home health care that comes in a couple times a week and assist him with his overall care. Based on the odor in the room and his body habitus is very likely that he is able to manage basic tasks like wiping after having a bowel movement and cleaning his body appropriately. According to him the person that comes in a couple times a week does help with showering and cleaning himself in a limited fashion. His sister who is reportedly his POA presents reporting that she is really worried about his safety. Multiple calls were made including to [facility] [place] who reports that he had a call from this patient regarding coming to the hospital because of a possible overdose with a report that he was very cagey and answering their questions. He has been to the emergency department multiple times in the past week and months. He could not recall the specific names of his medications and reports that he would desire inpatient care somewhere. Psychiatric history: As above. Substance use history: He denied any significant substance abuse issues. Family history: He denies any mental health or addiction issues that ran in the family. Developmental history: He denies any issues at or problems during the walking talk, he was unclear about his academic/intellectual circumstances but his sister suggested that he might have some deficits. Psychosocial history: He reports he has a couple of sisters one is his POA. He denies that his family is close by her that anybody checks on him regularly. His sister does report that there is an hour to an hour and a half away. He has no significant social connections that he reports. No occupation or occupational interest. Legal history: Denied. Medical history: Please see ED note for full details. But he endorses diabetes, morbid obesity, high blood pressure, gout. Meds NPU Home Medications Medication Instructions Recorded Confirmed Last Taken Type atorvastatin [Lipitor] 80 mg PO BEDTIME 07/14/19 06/20/21 02/15/21 History montelukast [Singulair] 10 mg PO BEDTIME 07/14/19 06/20/21 02/15/21 History omeprazole 40 mg PO QAM 07/14/19 06/20/21 02/16/21 History glipizide 10 mg PO BID 01/21/20 06/20/21 02/16/21 07:30 History oxygen-air delivery systems #1 03/11/20 06/20/21 Unknown History albuterol sulfate 90 mcg/actuation 2 puff INHALATION Q6H PRN 05/19/20 06/20/21 Unknown History aerosol inhaler aspirin 81 mg PO QAM 09/13/20 06/20/21 02/16/21 07:30 History Dulera 2 puff INHALATION BID 11/24/20 06/20/21 02/16/21 History atenolol [Tenormin] 100 mg PO QAM 11/24/20 06/20/21 02/16/21 07:30 History Janumet 1 tab PO BID 02/16/21 06/20/21 02/16/21 07:30 History allopurinol 100 mg PO QAM 02/16/21 06/20/21 02/16/21 07:30 History lisinopril 5 mg PO QAM 02/16/21 06/20/21 02/16/21 History fluconazole [Diflucan] 150 mg PO Q3D #2 tab 06/18/21 06/20/21 Unknown Rx acetaminophen 500 mg PO Q6H PRN 5 Days #20 tab 06/19/21 06/20/21 Unknown Rx folic acid 1 mg PO DAILY 06/20/21 06/20/21 Unknown History furosemide 40 mg PO DAILY 06/20/21 06/20/21 Unknown History ferrous sulfate 325 mg PO BID 06/22/21 06/22/21 Unknown History Allergies Allergy/AdvReac Type Severity Reaction Status Date / Time Penicillins Allergy ALGY-Hives Verified 06/20/21 13:12 diltiazem [From Cardizem] AdvReac ADR/ALGY-Pa Verified 06/20/21 13:12 lpitations PFSH NPU PFSH: Medical History Anemia -has chronic iron deficiency anemia, baseline Hg is around 9-10 -stable H/H -was previously on iron supplementation CHF (congestive heart failure) -Echo (07/2019): EF=68%, normal diastolic function, no RWMA -on oral lasix -no acute exacerbation currently Decubitus ulcer limited to breakdown of skin (stage 2) Diabetes -NIDDM type II -A1c (11/2019): 8.2 -Accuchecks, ISS, hypoglycemia precautions -consistent carb diet -anticipate hyperglycemia with steroid use Gout Hyperlipemia, mixed Hypertension -VSS; continue to monitor -continue oral antihypertensives Morbid (severe) obesity due to excess calories OPAL (obstructive sleep apnea) -in the process of getting CPAP set up Pneumonia Psychiatric care Transient cerebral ischemia Surgical History History of adenoidectomy History of hernia repair History of tonsillectomy History of umbilical hernia repair Family History Mother Hypertension CAD (coronary artery disease) Stroke Social History Smoking and tobacco status: never smoked Second hand smoke exposure: Yes Alcohol intake: never Adopted: No Caregiver/support person: No Lives independently: Yes Household members: family and friend(s) Housing: Manufactured/Mobile home Marital status: Single Number of children: 0 Number of grandchildren: 0 Highest education level completed: 8th Grade service: No Current occupational status: disabled Pets and animals: No History of recent travel: No Leisure activites: other Leisure activities details: play card games Sexually active: No Current gender identity: Male Yolanda/Lutheran: Other Special yolanda needs: No Agree to transfusion: Yes Financial difficulty paying for basics: Hard Mental Status Exam MSE Comments: This is a morbidly obese white male in a hospital gown with limited grooming and eye contact. Fairly disheveled and malodorous. No abnormal movements except for psychomotor retardation cooperative with exam in mild distress. Speech was decreased rate and volume and with significant dysarthria secondary to the extra tissue around his throat and mouth. Mood described as depressed and anxious, affect subdued. Thought process organized. Thought content: Patient endorsed suicidal thoughts, there were no delusions reported or noted, he denied any auditory visualizations. Attention and concentration were intact and memory appeared reliable and were formally tested. He is alert and oriented x3. Insight and judgment are impaired, impulse control is impaired. Vitals/I&O/Wt Last Vital Signs Temp 97.6 F 06/22/21 07:56 Pulse 76 06/22/21 07:56 Resp 16 06/22/21 07:56 BP 126/65 06/22/21 07:56 Pulse Ox 90 06/22/21 07:56 06/21/21 06/22/21 06/22/21 22:59 06:59 14:59 Intake Total 250 / 250 240 / 490 Balance 250 / 250 240 / 490 Weight last 48 hrs Weight 178.942 kg Weight 177.978 kg Weight 154.221 kg Data NPU : 06/20/21 13:14 06/20/21 13:14 A&P Additional A&P Information (1) Abdominal pain: (2) Constipation: (3) Panniculitis: (4) Sinusitis: (5) Chest pain: (6) TEDDY (acute kidney injury): (7) Guaiac + stool: (8) Anemia: (9) Depression: (10) Spondylisthesis: (11) Cerebral infarction, watershed distribution, unilateral, acute: (12) Acute right arterial ischemic stroke, middle cerebral artery (MCA): (13) Vasogenic cerebral edema: (14) Rhabdomyolysis: (15) Acute metabolic encephalopathy: (16) Acute kidney injury (TEDDY) with acute tubular necrosis (ATN): (17) ARDS (adult respiratory distress syndrome): (18) Multiorgan failure: (19) Acute renal failure: (20) Acquired urinary meatal stenosis: (21) Acute respiratory failure with hypoxia: (22) Pneumonia: (23) Sepsis: (24) Anxiety: (25) Suicidal ideation: Additional A&P Information This is a morbidly obese 51-year-old white male with a long history of mental health treatment and multiple medical comorbidities who presents reporting suicidal thoughts. 1. Continue current medication. Need to get his home meds restarted to be able to make adjustments. 2. Continue 1:1 checks for safety. 3. Encourage individual therapy. 4. Encourage sober living treatment after discharge at the highest level of care to which he is willing to commit. 5. Reconnect with [facility] [place]. Attestations NPU Medical Necessity Statement*: Inpatient hospitalization is medically necessary and the clinically appropriate intervention at this time. We will monitor medication to make changes as indicated. Likely length of stay 3 to 5 days. Coding Level of Care Code Acute Bulk Plant Supervisor for [facility]
--- NOTE | 2021-06-22 10:09 | PC.CHAP ---
Pastoral Care Encounter/Spiritual Assessment Type of Contact [] Declined tail board man visit [] Patient/Family/Request visit [] Outpatient visit [] Follow-up visit [] Physician referral [] Code/Alert [x] Routine visit [] Staff referral [] Actively dying [] Patient sleeping [] Family support [] [] Out of room [] Palliative care [] [] Receiving care in room [] Pre-surgical visit [] Trauma [] Long length of stay [] ICU visit [] Other: Relational/Emotional Strength [x] Patient feels connected with others/family/visitors/staff [] Distress [] Loneliness/isolation [] Abandonment Spirituality of Patient [x] Person of Yolanda [] Attends Orthodoxy of their Yolanda [x] Believes in Prayer [] Reads Bible or Episcopal materials [] There are Spiritual issues to be addressed Director Of Neurology Interventions [x] Prayer [x] Active listening [] Non-anxious presence [] Spiritual/emotional support [] Crisis/trauma care [] Spiritual counseling [] Bereavement support [] Provided bereavement packet [] Provided Bible/devotional materials [] Provided toy/stuffed animal, coloring book to patient or family member [] Provided Communion [] Anointing/Ignacio [] Salvation [x] Completed spiritual assessment [] Other: Impact on Illness or Injury [] Angry [] Fearful [] Anxious [] Often cries [] Exhaustion [] Unable to work [] Unable to attend synagogue [] Unable to walk/stand [] Unable to read [] Unable to drive [] Unable to eat/drink [] Unable to sleep [] Unable to be with family [] Patient intubated [] Other: Summary patient seemed confused Time spent with patient
--- NOTE | 2021-06-22 11:47 | PC.NURSE ---
Dr. Kelley asked this nurse to assess patients O2 sats without oxygen on. During assessment, patient is noted to be at 73% at room air. 4L applied via nasal cannula, patient immediately went back to 98%.
[2021-06-22] MEDS: folic acid 1 mg Tablet PO (13:20)
[2021-06-22] MEDS: atenolol 50 mg Tablet 100 MG PO (13:20)
[2021-06-22] MEDS: fluconazole 100 mg Tablet 150 MG PO (13:20)
[2021-06-22] MEDS: FUROsemide 40 mg Tablet PO (13:20)
[2021-06-22] MEDS: aspirin 81 mg EC Tablet PO (13:20)
[2021-06-22] MEDS: sitagliptin 100 mg Tablet 50 MG PO (17:19)
[2021-06-22] MEDS: ferrous sulfate EC 325 mg Tablet PO (17:19)
[2021-06-22] MEDS: metformin 500 mg Tablet 1000 MG PO (17:19)
[2021-06-22] MEDS: atorvastatin 40 mg Tablet 80 MG PO (20:50)
[2021-06-22] MEDS: montelukast sodium 10 mg Tablet PO (20:50)
[2021-06-23] VITALS (10 sets, daily range): BP systolic 122–177; BP diastolic 69–82; PULSE 59–76; RESP 16–22; TEMP 36.4–36.8; O2SAT 90–97
[2021-06-23] MEDS: aspirin 81 mg EC Tablet PO (05:11)
[2021-06-23] MEDS: allopurinol 100 mg Tablet PO (05:11)
[2021-06-23] MEDS: atenolol 50 mg Tablet 100 MG PO (05:14)
[2021-06-23] MEDS: albuterol 8 gm MDI 2 PUFF INHALATION ×2 (08:13→13:47)
[2021-06-23] MEDS: folic acid 1 mg Tablet PO (09:14)
[2021-06-23] MEDS: sitagliptin 100 mg Tablet 50 MG PO ×2 (09:14→17:33)
[2021-06-23] MEDS: FUROsemide 40 mg Tablet PO (09:14)
[2021-06-23] MEDS: metformin 500 mg Tablet 1000 MG PO ×2 (09:14→17:31)
[2021-06-23] MEDS: ferrous sulfate EC 325 mg Tablet PO ×2 (09:14→17:31)
[2021-06-23] MEDS: lisinopril 5 mg Tablet PO (11:25)
[2021-06-23] MEDS: pantoprazole DR 40 mg Tablet PO (11:25)
--- NOTE | 2021-06-23 12:04 | P.NPUPN_ITS ---
Subjective NPU Subjective: Interval history: He says that he is still significantly depressed. He said that he feels like he is getting weak because he is in bed all the time. He says that if he went home he would also just lie in bed and probably get more depressed and feel like killing himself again. We talked about his past treatment. He has been seeing psychology at [facility] for some time bu t has not seen anyone for medications. It was noted that he was on Pristiq 50 mg at some point last year. He says that he thinks that his family thought that he was more irritable and hard to get along with after he took that for a few weeks. I mentioned Lexapro as a possibility. He thinks he took that a long time ago and it helped. He says that he just stopped taking it for no specific reason. He does not remember the dose. He was willing to try that again. He thinks that he used a CPAP machine for about 2 hours since he has been here. He has not been using it at night. He has one at home but he does not use it. We discussed the importance of CPAP machine for the brain and the rest of the body as well. He agreed to try it while he was here. He also agreed that physical therapy to help him walk on a regular basis while he was here would be a good thing. Medications: Reviewed: Yes Mental Status Exam MSE Comments: This is a morbidly obese white male in a hospital gown with limited grooming and eye contact. Fairly disheveled but not malodorous as he was yesterday. No abnormal movements except for psychomotor retardation c ooperative with exam in no distress. Speech was normal rate and volume and with significant dysarthria secondary to the extra tissue around his throat and mouth. Mood described as depressed and anxious, affect only mildly dysphoric. Thought process organized. Thought content: Patient endorsed suicidal thoughts, there were no delusions reported or noted, he denied any auditory visualizations. Attention and concentration were intact and memory appeared reliable and were formally tested. He is alert and oriented x3. Insight and judgment are impaired, impulse control is impaired. Cognition: Patient Appearance: Disheveled/Poor Hygiene and No Eye Contact Level of Consciousness: Awake, Alert, Appropriate and Follows Commands Patient Cognition Impaired: No Ability to Follow Directions: Good Patient Orientation (long list): Person, Place, Time, Birthday and Year Comprehension Ability: No Impairment Hallucination Type: None Delusion Description: Not Present Thought Process: Appropriate Affect: Affect Description: Depressed, Sad and Tearful Depressive Symptoms: Difficulty Making Decisions and Loss of Interest in Activities Behavior: Patient Behavior: Appropriate and Cooperative Speech Pattern: Appropriate and Clear Vitals/I&O/Wt Last Vital Signs Temp 97.5 F L 06/23/21 11:23 Pulse 67 06/23/21 11:23 Resp 18 06/23/21 11:23 BP 167/78 06/23/21 11:23 Pulse Ox 91 06/23/21 11:23 06/22/21 06/23/21 06/23/21 22:59 06:59 14:59 Intake Total 360 / 1080 240 / 1320 360 / 360 Balance 360 / 1080 240 / 1320 360 / 360 Weight last 48 hrs Weight 179.713 kg Weight 178.942 kg Weight 177.978 kg Data NPU : 06/20/21 13:14 06/20/21 13:14 A&P Assessment and plan (1) Abdominal pain: Status: Acute Qualifiers: Abdominal location: generalized Qualified Code(s): R10.84 - Generalized abdominal pain (2) Constipation: Status: Acute Qualifiers: Constipation type: unspecified constipation type Qualified Code(s): K5 9.00 - Constipation, unspecified (3) Panniculitis: Status: Acute (4) Sinusitis: Status: Acute (5) Chest pain: Status: Acute (6) TEDDY (acute kidney injury): Status: Acute (7) Guaiac + stool: Status: Acute (8) Anemia: Status: Acute (9) Depression: Status: Acute (10) Spondylisthesis: Status: Acute (11) Cerebral infarction, watershed distribution, unilateral, acute: Status: Acute (12) Acute right arterial ischemic stroke, middle cerebral artery (MCA): Status: Acute (13) Vasogenic cerebral edema: Status: Acute (14) Rhabdomyolysis: Status: Acute (15) Acute metabolic encephalopathy: Status: Acute (16) Acute kidney injury (TEDDY) with acute tubular necrosis (ATN): Status: Acute (17) ARDS (adult respiratory distress syndrome): Status: Acute (18) Multiorgan failure: Status: Acute (19) Acute renal failure: Status: Acute (20) Acquired urinary meatal stenosis: Status: Acute (21) Acute respiratory failure with hypoxia: Status: Acute (22) Pneumonia: Status: Acute Qualifiers: Laterality: left Lung location: upper lobe of lung Pneumonia type: due to unspecified organism Qualified Code(s): J18.9 - Pneumonia, unspecified organism (23) Sepsis: Status: Acute Qualifiers: Sepsis acute organ dysfunction status: without acute organ dysfunction Sepsis type: sepsis due to unspecified organism Qualified Code(s): A41.9 - Sepsis, unspecified organism (24) Anxiety: Status: Acute (25) Suicidal ideation: Status: Acute Additional A&P Information (1) Abdominal pain: (2) Constipation: (3) Panniculitis: (4) Sinusitis: (5) Chest pain: (6) TEDDY (acute kidney injury): (7) Guaiac + stool: (8) Anemia: (9) Depression: (10) Spondylisthesis: (11) Cerebral infarction, watershed distribution, unilateral, acute: (12) Acute right arterial ischemic stroke, middle cerebral artery (MCA): (13) Vasogenic cerebral edema: (14) Rhabdomyolysis: (15) Acute metabolic encephalopathy: (16) Acute kidney injury (TEDDY) with acute tubular necrosis (ATN): (17) ARDS (adult respiratory distress syndrome): (18) Multiorgan failure: (19) Acute renal failure: (20) Acquired urinary meatal stenosis: (21) Acute respiratory failure with hypoxia: (22) Pneumonia: (23) Sepsis: (24) Anxiety: (25) Suicidal ideation: Additional A&P Information This is a morbidly obese 51-year-old white male with a long history of mental health treatment and multiple medical comorbidities who presents reporting suicidal thoughts. 1. Continue current medication. Will add Lexapro 10 mg 2. Continue 1:1 checks for safety. 3. Encourage use of CPAP and physical therapy. 4. Encourage sober living treatment after discharge at the highest level of care to which he is willing to commit. 5. Reconnect with [facility]. Attestations U Medical Necessity Statement*: Inpatient hospitalization is medically necessary and the clinically appropriate intervention at this time. We will initiate medications and make changes as indicated. Coding Level of Care Code Acute Threshing Department Supervisor for [facility] Fwd Diagnoses Abdominal pain R10.84 Abdominal location: generalized Constipation K59.00 Constipation type: unspecified constipation type Panniculitis M79.3 Sinusitis J32.9 Chest pain R07.9 TEDDY (acute kidney injury) N17.9 Guaiac + stool R19.5 Anemia D64.9 Depression F32.A Spondylisthesis M43.10 Cerebral infarction, watershed distribution, unilateral, acute I63.89 Acute right arterial ischemic stroke, middle cerebral artery (MCA) I63.511 Vasogenic cerebral edema G93.6 Rhabdomyolysis M62.82 Acute metabolic encephalopathy G93.41 Acute kidney injury (TEDDY) with acute tubular necrosis (ATN) N17.0 ARDS (adult respiratory distress syndrome) J80 Multiorgan failure Acute renal failure N17.9 Acquired urinary meatal stenosis Acute respiratory failure with hypoxia J96.01 Pneumonia J18.9 Laterality: left Lung location: upper lobe of lung Pneumonia type: due to unspecified organism Sepsis A41.9 Sepsis acute organ dysfunction status: without acute organ dysfunction Sepsis type: sepsis due to unspecified organism Anxiety F41.9 Suicidal ideation R45.851
[2021-06-23] MEDS: escitalopram 10 mg Tablet PO (12:09)
[2021-06-23] MEDS: atorvastatin 40 mg Tablet 80 MG PO (20:32)
[2021-06-23] MEDS: montelukast sodium 10 mg Tablet PO (20:32)
[2021-06-24] VITALS (9 sets, daily range): BP systolic 124–147; BP diastolic 62–82; PULSE 66–95; RESP 16–20; TEMP 36.4–36.9; O2SAT 90–99
[2021-06-24] MEDS: pantoprazole DR 40 mg Tablet PO (05:12)
[2021-06-24] MEDS: atenolol 50 mg Tablet 100 MG PO (05:12)
[2021-06-24] MEDS: allopurinol 100 mg Tablet PO (05:12)
[2021-06-24] MEDS: aspirin 81 mg EC Tablet PO (05:13)
[2021-06-24] MEDS: lisinopril 5 mg Tablet PO (05:13)
--- NOTE | 2021-06-24 06:43 | PC.NURSE ---
SHIFT SUMMARY: THROUGHOUT THE NIGHT THE PATIENT CONTINUALLY WOULD HALLUCINATE ABOUT SITUATIONS THAT WERE NOT REAL. HE ALSO WOULD TALK EXCESSIVELY IN HIS SLEEP. AT TIMES HE WOULD WAKE AND STILL BE INVOLVED IN HIS DREAM AND REQUIRE REDIRECTION. EASILY REDIRECTED.
[2021-06-24] MEDS: albuterol 8 gm MDI 2 PUFF INHALATION (09:12)
[2021-06-24 10:03] LABS: Glucose Point of Care 141 mg/dL (70-110)
--- NOTE | 2021-06-24 10:08 | PC.NURSE ---
Attempted to give patient medications this morning and he reports that he was already given medications by me this morning and he didn't want to take them because they make him drowsy. Attempted to let know and was unable to reach him at this time.
--- NOTE | 2021-06-24 13:29 | W.PM.NPUPNS ---
Subjective NPU Subjective: Interval history: He says that he is doing a little better. He feels like he will be ready to go in two days or so. He did not take the Lexapro this morning. He said that after he took it yesterday he was seeing ants on the ceiling and other things outside and felt like he was flying around on his mat. He says that he also heard the voice of some of his relatives telling him that it will be all right . The nurse says he has been having hallucinations in the nighttime previously but not during the day. They seem to be a little worse last night. Physical therapy did come to see him yesterday. He says that he does get up every day 2 or 3 times and walks to the bathroom. He was encouraged to do that more and when he is finished walking he should stand as long as possible before getting into the bed. He went to one of the groups downstairs but did not feel like going to a second 1 today. Mental Status Exam MSE Comments: This is a morbidly obese white male in a hospital gown with limited grooming and eye contact. Fairly disheveled but not malodorous. No abnormal movements except for psychomotor retardation cooperative with exam in no distress. Speech was normal rate and volume and with significant dysarthria secondary to the extra tissue around his throat and mouth. Mood described as depressed and anxious, affect only mildly dysphoric. Thought process organized. Thought content: Patient endorsed suicidal thoughts, there were no delusions reported or noted, he denied any auditory or visual halucinations currently. Attention and concentration were intact and memory appeared reliable and were not formally tested. He is alert and oriented x3. Insight and judgment are impaired, impulse control is impaired. Cognition: Patient Appearance: Disheveled/Poor Hygiene and No Eye Contact Level of Consciousness: Awake, Alert, Appropriate and Follows Commands Patient Cognition Impaired: No Ability to Follow Directions: Good Patient Orientation (long list): Person, Place, Time, Name, Birthday, Month and Year Comprehension Ability: No Impairment Hallucination Type: None Delusion Description: Not Present Thought Process: Appropriate Affect: Affect Description: Calm Depressive Symptoms: Difficulty Making Decisions and Loss of Interest in Activities Behavior: Patient Behavior: Appropriate and Cooperative Speech Pattern: Appropriate and Clear Vitals/I&O/Wt Last Vital Signs Temp 98.4 F 06/24/21 12:00 Pulse 87 06/24/21 12:00 Resp 16 06/24/21 12:00 BP 124/64 06/24/21 12:00 Pulse Ox 98 06/24/21 12:00 06/23/21 06/24/21 06/24/21 22:59 06:59 14:59 Intake Total 240 / 840 360 / 1200 240 / 240 Balance 240 / 840 360 / 1200 240 / 240 Weight last 48 hrs Weight 179.713 kg Data NPU : 06/20/21 13:14 06/20/21 13:14 A&P Assessment and plan (1) Abdominal pain: Status: Acute Qualifiers: Abdominal location: generalized Qualified Code(s): R10.84 - Generalized abdominal pain (2) Constipation: Status: Acute Qualifiers: Constipation type: unspecified constipation type Qualified Code(s): K59.00 - Constipation, unspecified (3) Panniculitis: Status: Acute (4) Sinusitis: Status: Acute (5) Chest pain: Status: Acute (6) TEDDY (acute kidney injury): Status: Acute (7) Guaiac + stool: Status: Acute (8) Anemia: Status: Acute (9) Depression: Status: Acute (10) Spondylisthesis: Status: Acute (11) Cerebral infarction, watershed distribution, unilateral, acute: Status: Acute (12) Acute right arterial ischemic stroke, middle cerebral artery (MCA): Status: Acute (13) Vasogenic cerebral edema: Status: Acute (14) Rhabdomyolysis: Status: Acute (15) Acute metabolic encephalopathy: Status: Acute (16) Acute kidney injury (TEDDY) with acute tubular necrosis (ATN): Status: Acute (17) ARDS (adult respiratory distress syndrome): Status: Acute (18) Multiorgan failure: Status: Acute (19) Acute renal failure: Status: Acute (20) Acquired urinary meatal stenosis: Status: Acute (21) Acute respiratory failure with hypoxia: Status: Acute (22) Pneumonia: Status: Acute Qualifiers: Laterality: left Lung location: upper lobe of lung Pneumonia type: due to unspecified organism Qualified Code(s): J18.9 - Pneumonia, unspecified organism (23) Sepsis: Status: Acute Qualifiers: Sepsis acute organ dysfunction status: without acute organ dysfunction Sepsis type: sepsis due to unspecified organism Qualified Code(s): A41.9 - Sepsis, unspecified organism (24) Anxiety: Status: Acute (25) Suicidal ideation: Status: Acute Additional A&P Information (1) Abdominal pain: (2) Constipation: (3) Panniculitis: (4) Sinusitis: (5) Chest pain: (6) TEDDY (acute kidney injury): (7) Guaiac + stool: (8) Anemia: (9) Depression: (10) Spondylisthesis: (11) Cerebral infarction, watershed distribution, unilateral, acute: (12) Acute right arterial ischemic stroke, middle cerebral artery (MCA): (13) Vasogenic cerebral edema: (14) Rhabdomyolysis: (15) Acute metabolic encephalopathy: (16) Acute kidney injury (TEDDY) with acute tubular necrosis (ATN): (17) ARDS (adult respiratory distress syndrome): (18) Multiorgan failure: (19) Acute renal failure: (20) Acquired urinary meatal stenosis: (21) Acute respiratory failure with hypoxia: (22) Pneumonia: (23) Sepsis: (24) Anxiety: (25) Suicidal ideation: Additional A&P Information This is a morbidly obese 51-year-old white male with a long history of mental health treatment and multiple medical comorbidities who presents reporting suicidal thoughts. 1. Continue current medication. Will change Lexapro 10 mg to Zoloft and add some Geodon at dinner 2. Continue 1:1 checks for safety. 3. Encourage use of CPAP and physical therapy. 4. Encourage sober living treatment after discharge at the highest level of care to which he is willing to commit. 5. Reconnect with [facility]. Attestations U Medical Necessity Statement*: Inpatient hospitalization is medically necessary and the clinically appropriate intervention at this time. We will initiate medications and make changes as indicated. Coding Level of Care Code Acute Bulk Intake Worker for g Fwd Diagnoses Abdominal pain R10.84 Abdominal location: generalized Constipation K59.00 Constipation type: unspecified constipation type Panniculitis M79.3 Sinusitis J32.9 Chest pain R07.9 TEDDY (acute kidney injury) N17.9 Guaiac + stool R19.5 Anemia D64.9 Depression F32.A Spondylisthesis M43.10 Cerebral infarction, watershed distribution, unilateral, acute I63.89 Acute right arterial ischemic stroke, middle cerebral artery (MCA) I63.511 Vasogenic cerebral edema G93.6 Rhabdomyolysis M62.82 Acute metabolic encephalopathy G93.41 Acute kidney injury (TEDDY) with acute tubular necrosis (ATN) N17.0 ARDS (adult respiratory distress syndrome) J80 Multiorgan failure Acute renal failure N17.9 Acquired urinary meatal stenosis Acute respiratory failure with hypoxia J96.01 Pneumonia J18.9 Laterality: left Lung location: upper lobe of lung Pneumonia type: due to unspecified organism Sepsis A41.9 Sepsis acute organ dysfunction status: without acute organ dysfunction Sepsis type: sepsis due to unspecified organism Anxiety F41.9 Suicidal ideation R45.851
--- NOTE | 2021-06-24 14:43 | PC.CHAP ---
Pastoral Care Encounter/Spiritual Assessment Type of Contact [] Declined driver merchandiser visit [] Patient/Family/Request visit [] Outpatient visit [xx] Follow-up visit [] Physician referral [] Code/Alert [] Routine visit [] Staff referral [] Actively dying [] Patient sleeping [] Family support [] [] Out of room [] Palliative care [] [xx] Receiving care in room [] Pre-surgical visit [] Trauma [] Long length of stay [] ICU visit [] Other: Relational/Emotional Strength [] Patient feels connected with others/family/visitors/staff [] Distress [] Loneliness/isolation [] Abandonment Spirituality of Patient [] Person of Yolanda [] Attends Yazidism of their Yolanda [] Believes in Prayer [] Reads Bible or Christian materials [] There are Spiritual issues to be addressed Custodial Operations Manager Interventions [] Prayer [] Active listening [] Non-anxious presence [] Spiritual/emotional support [] Crisis/trauma care [] Spiritual counseling [] Bereavement support [] Provided bereavement packet [] Provided Bible/devotional materials [] Provided toy/stuffed animal, coloring book to patient or family member [] Provided Communion [] Anointing/[place] [] Salvation [] Completed spiritual assessment [] Other: Impact on Illness or Injury [] Angry [] Fearful [] Anxious [] Often cries [] Exhaustion [] Unable to work [] Unable to attend yazidism [] Unable to walk/stand [] Unable to read [] Unable to drive [] Unable to eat/drink [] Unable to sleep [] Unable to be with family [] Patient intubated [] Other: Summary Patient receiving much care in room. Follow up later. Time spent with patient
[2021-06-24 17:28] LABS: Glucose Point of Care 144 mg/dL (70-110)
[2021-06-24] MEDS: ziprasidone hcl 20 mg Capsule PO (17:37)
[2021-06-24] MEDS: metformin 500 mg Tablet 1000 MG PO (17:38)
[2021-06-24] MEDS: ferrous sulfate EC 325 mg Tablet PO (17:38)
[2021-06-24] MEDS: sitagliptin 100 mg Tablet 50 MG PO (17:41)
[2021-06-24] MEDS: atorvastatin 40 mg Tablet 80 MG PO (20:17)
[2021-06-24] MEDS: montelukast sodium 10 mg Tablet PO (20:18)
[2021-06-25] VITALS (8 sets, daily range): BP systolic 127–167; BP diastolic 66–79; PULSE 65–97; RESP 16–18; TEMP 36.6–37; O2SAT 90–97
[2021-06-25] MEDS: lisinopril 5 mg Tablet PO (05:09)
[2021-06-25] MEDS: aspirin 81 mg EC Tablet PO (05:09)
[2021-06-25] MEDS: atenolol 50 mg Tablet 100 MG PO (05:09)
[2021-06-25] MEDS: pantoprazole DR 40 mg Tablet PO (05:09)
[2021-06-25] MEDS: allopurinol 100 mg Tablet PO (05:09)
--- NOTE | 2021-06-25 08:47 | P.NPUPN_ITS ---
Subjective NPU Subjective: Interval history: He says that he is doing better. But then he said that he was having the feeling that he was flying around in a golf cart. The nurses report that his hallucinations were bad last night again. He says that he was not offered the CPAP last night. He says that he had it during the day and slept better when he used it. He said that he is still getting up to go to the bathroom but not walking more than that. He is going home with his sister and wanted to know why they would not let him have a phone. He does occasionally hear a voice saying it will be alright . 2 groups yesterday in the morning but not in the afternoon. I spoke with the nurse and asked her to make sure he was encouraged to go to group whenever offered today. Also asked h er to pass on that he needed to CPAP offered at night. Mental Status Exam MSE Comments: This is a morbidly obese white male in a hospital gown with limited grooming and eye contact. Fairly disheveled but not malodorous. No abnormal movements except for psychomotor retardation cooperative with exam in n o distress. Speech was normal rate and volume and with significant dysarthria secondary to the extra tissue around his throat and mouth. Mood described as depressed and anxious, affect only mildly dysphoric. Thought process organized. Thought content: Patient endorsed suicidal thoughts, there were no delusions reported or noted, he denied any auditory or visual halucinations currently. Attention and concentration were intact and memory appeared reliable and were not formally tested. He is alert and oriented x3. Insight and judgment are impaired, impulse control is impaired. Cognition: Patient Appearance: Appropriate Level of Consciousness: Awake, Alert, Appropriate and Follows Commands Patient Cognition Impaired: No Ability to Follow Directions: Good Patient Orientation (long list): Person Comprehension Ability: No Impairment Hallucination Type: Visual Delusion Description: Not Present Thought Process: Confused and Disorganized Affect: Affect Description: Calm Depressive Symptoms: Difficulty Making Decisions and Loss of Interest in Activities Behavior: Patient Behavior: Cooperative Speech Pattern: Mumbled, Rambling and Unclear Vitals/I&O/Wt Last Vital Signs Temp 98.6 F 06/25/21 07:35 Pulse 65 06/25/21 07:35 Resp 16 06/25/21 07:35 BP 167/66 06/25/21 07:35 Pulse Ox 90 06/25/21 07:35 06/24/21 06/25/21 06/25/21 22:59 06:59 14:59 Intake Total 480 / 720 240 / 960 Balance 480 / 720 240 / 960 Data NPU : 06/20/21 13:14 06/20/21 13:14 A&P Assessment and plan (1) Abdominal pain: Status: Acute Qualifiers: Abdominal location: generalized Qualified Code(s): R10.84 - Generalized abdominal pain (2) Constipation: Status: Acute Qualifiers: Constipation type: unspecified constipation type Qualified Code(s): K59.00 - Constipation, unspecified (3) Panniculitis: Status: Acute (4) Sinusitis: Status: Acute (5) Chest pain: Status: Acute (6) TEDDY (acute kidney injury): Status: Acute (7) Guaiac + stool: Status: Acute (8) Anemia: Status: Acute (9) Depression: Status: Acute (10) Spondylisthesis: Status: Acute (11) Cerebral infarction, watershed distribution, unilateral, acute: Status: Acute (12) Acute right arterial ischemic stroke, middle cerebral artery (MCA): Status: Acute (13) Vasogenic cerebral edema: Status: Acute (14) Rhabdomyolysis: Status: Acute (15) Acute metabolic encephalopathy: Status: Acute (16) Acute kidney injury (TEDDY) with acute tubular necrosis (ATN): Status: Acute (17) ARDS (adult respiratory distress syndrome): Status: Acute (18) Multiorgan failure: Status: Acute (19) Acute renal failure: Status: Acute (20) Acquired urinary meatal stenosis: Status: Acute (21) Acute respiratory failure with hypoxia: Status: Acute (22) Pneumonia: Status: Acute Qualifiers: Laterality: left Lung location: upper lobe of lung Pneumonia type: due to unspecified organism Qualified Code(s): J18.9 - Pneumonia, unspecified organism (23) Sepsis: Status: Acute Qualifiers: Sepsis acute organ dysfunction status: without acute organ dysfunction Sepsis type: sepsis due to unspecified organism Qualified Code(s): A41.9 - Sepsis, unspecified organism (24) Anxiety: Status: Acute (25) Suicidal ideation: Status: Acute Additional A&P Information (1) Abdominal pain: (2) Constipation: (3) Panniculitis: (4) Sinusitis: (5) Chest pain: (6) TEDDY (acute kidney injury): (7) Guaiac + stool: (8) Anemia: (9) Depression: (10) Spondylisthesis: (11) Cerebral infarction, watershed distribution, unilateral, acute: (12) Acute right arterial ischemic stroke, middle cerebral artery (MCA): (13) Vasogenic cerebral edema: (14) Rhabdomyolysis: (15) Acute metabolic encephalopathy: (16) Acute kidney injury (TEDDY) with acute tubular necrosis (ATN): (17) ARDS (adult respiratory distress syndrome): (18) Multiorgan failure: (19) Acute renal failure: (20) Acquired urinary meatal stenosis: (21) Acute respiratory failure with hypoxia: (22) Pneumonia: (23) Sepsis: (24) Anxiety: (25) Suicidal ideation: Additional A&P Information This is a morbidly obese 51-year-old white male with a long history of mental health treatment and multiple medical comorbidities who presents reporting suicidal thoughts. 1. Continue current medication. Zoloft 50 mg starts today we will increase Geodon to 40 mg at dinner this evening 2. Continue 1:1 checks for safety. 3. Encourage use of CPAP and physical therapy. 4. Encourage sober living treatment after discharge at the highest level of care to which he is willing to commit. 5. Reconnect with [facility]. Attestations U Medical Necessity Statement*: Inpatient hospitalization is medically necessary and the clinically appropriate intervention at this time. We will initiate medications and make changes as indicated. Coding Level of Care Code Acute Addressograph Operator for [facility] Fwd Diagnoses Abdominal pain R10.84 Abdominal location: generalized Constipation K59.00 Constipation type: unspecified constipation type Panniculitis M79.3 Sinusitis J32.9 Chest pain R07.9 TEDDY (acute kidney injury) N17.9 Guaiac + stool R19.5 Anemia D64.9 Depression F32.A Spondylisthesis M43.10 Cerebral infarction, watershed distribution, unilateral, acute I63.89 Acute right arterial ischemic stroke, middle cerebral artery (MCA) I63.511 Vasogenic cerebral edema G93.6 Rhabdomyolysis M62.82 Acute metabolic encephalopathy G93.41 Acute kidney injury (TEDDY) with acute tubular necrosis (ATN) N17.0 ARDS (adult respiratory distress syndrome) J80 Multiorgan failure Acute renal failure N17.9 Acquired urinary meatal stenosis Acute respiratory failure with hypoxia J96.01 Pneumonia J18.9 Laterality: left Lung location: upper lobe of lung Pneumonia type: due to unspecified organism Sepsis A41.9 Sepsis acute organ dysfunction status: without acute organ dysfunction Sepsis type: sepsis due to unspecified organism Anxiety F41.9 Suicidal ideation R45.851
[2021-06-25] MEDS: metformin 500 mg Tablet 1000 MG PO ×2 (09:21→17:13)
[2021-06-25] MEDS: ferrous sulfate EC 325 mg Tablet PO ×2 (09:21→17:13)
[2021-06-25] MEDS: folic acid 1 mg Tablet PO (09:21)
[2021-06-25] MEDS: FUROsemide 40 mg Tablet PO (09:21)
[2021-06-25] MEDS: sertraline 50 mg Tablet PO (09:24)
[2021-06-25] MEDS: sitagliptin 100 mg Tablet 50 MG PO ×2 (09:24→17:12)
[2021-06-25] MEDS: fluconazole 100 mg Tablet 150 MG PO (11:11)
[2021-06-25] MEDS: ziprasidone hcl 40 mg Capsule PO (17:13)
[2021-06-25] MEDS: montelukast sodium 10 mg Tablet PO (20:15)
[2021-06-25] MEDS: atorvastatin 40 mg Tablet 80 MG PO (20:16)
[2021-06-25 21:04] LABS: Glucose Point of Care 158 mg/dL (70-110)
--- NOTE | 2021-06-25 23:44 | PC.NURSE ---
BIPAP RT tried to place BIPAP. Pt said he would wear it tonight but before it was even on his face he was pulling it off and apart. Says he cannot wear this type of mask.
[2021-06-26] VITALS (7 sets, daily range): BP systolic 120–148; BP diastolic 63–78; PULSE 60–74; RESP 16–18; TEMP 36.4–36.9; O2SAT 88–95
[2021-06-26] MEDS: atenolol 50 mg Tablet 100 MG PO (05:09)
[2021-06-26] MEDS: allopurinol 100 mg Tablet PO (05:10)
[2021-06-26] MEDS: aspirin 81 mg EC Tablet PO (05:10)
[2021-06-26] MEDS: pantoprazole DR 40 mg Tablet PO (05:10)
[2021-06-26] MEDS: lisinopril 5 mg Tablet PO (05:10)
--- NOTE | 2021-06-26 05:31 | PC.NURSE ---
SHIFT SUMMARY Has had a good night. This nurse has ;been 1:1 sitter through night. Has slept well and tells me he has not slept this well in quite some time. At beginning of night he was mumbling /talking in his sleep and reaching out for things but this ceased by about 2200 and not observed since. Asked me what they gave him and reminded him of new med started in the evening. Has been pleasant and cooperative. Has voiced no suicide ideation this shift. Says is anxious to go home with his sister when he can. Has ambulated to bathroom with walker and nurse and does well. X2 BM's tonight and is unable to clean self.
[2021-06-26 06:37] LABS: Glucose Point of Care 152 mg/dL (70-110)
[2021-06-26] MEDS: metformin 500 mg Tablet 1000 MG PO ×2 (09:28→17:14)
[2021-06-26] MEDS: sertraline 50 mg Tablet PO (09:29)
[2021-06-26] MEDS: folic acid 1 mg Tablet PO (09:29)
[2021-06-26] MEDS: FUROsemide 40 mg Tablet PO (09:29)
[2021-06-26] MEDS: ferrous sulfate EC 325 mg Tablet PO ×2 (09:30→17:14)
[2021-06-26] MEDS: sitagliptin 100 mg Tablet 50 MG PO ×2 (09:58→17:14)
--- NOTE | 2021-06-26 11:25 | P.NPUPN_ITS ---
Subjective NPU Subjective: Interval history: He says the hallucinations were decreased last night. He has not had the sensation that he was flying around for the last 24 hours. He saw some things last night but decided that it was [place] lights shining on the ceiling from outside. He said that his sister was going to come and get him and take him to [place] for [place] and then back to her house. he is not sure of her work schedule. She works 12 hour shifts three days in a row. He did not wear the CPAP last night. He only wore it about 30 minutes the morning. He could not tolerate more because the air was too cold. Mental Status Exam MSE Comments: This is a morbidly obese white male in a hospital gown with limited grooming and eye contact. Fairly disheveled but not malodorous. No abnormal movements except for psychomotor retardation cooperative with exam in no distress. Speech was normal rate and volume and with significant dysarthria secondary to the extra tissue around his throat and mouth. Mood described as depressed and anxious, affect euthymic. Thought process organized. Thought content: Patient endorsed suicidal thoughts, there were no delusions reported or noted, he denied any auditory or visual halucinations currently. Attention and concentration were intact and memory appeared reliable and were not formally tested. He is alert and oriented x3. Insight and judgment are impaired, impulse control is impaired. Cognition: Patient Appearance: Appropriate Level of Consciousness: Awake, Alert, Appropriate and Follows Commands Patient Cognition Impaired: No Ability to Follow Directions: Good Patient Orientation (long list): Person, Place, Name, Birthday, Month and Year Comprehension Ability: No Impairment Hallucination Type: Tactile and Visual Delusion Description: Not Present Thought Process: Disorganized Affect: Affect Description: Anxious Depressive Symptoms: Difficulty Making Decisions and Loss of Interest in Activities Behavior: Patient Behavior: Irritable and Uncooperative Speech Pattern: Mumbled and Unclear Vitals/I&O/Wt Last Vital Signs Temp 97.5 F L 06/26/21 07:56 Pulse 60 06/26/21 07:56 Resp 16 06/26/21 07:56 BP 120/78 06/26/21 07:56 Pulse Ox 91 06/26/21 09:10 06/25/21 06/26/21 06/26/21 22:59 06:59 14:59 Intake Total 340 / 940 240 / 1180 480 / 480 Balance 340 / 940 240 / 1180 480 / 480 Data NPU : 06/20/21 13:14 06/20/21 13:14 A&P Assessment and plan (1) Abdominal pain: Status: Inactive Qualifiers: Abdominal location: generalized Qualified Code(s): R10.84 - Generalized abdominal pain (2) Constipation: Status: Inactive Qualifiers: Constipation type: unspecified constipation type Qualified Code(s): K59.00 - Constipation, unspecified (3) Panniculitis: Status: Inactive (4) Sinusitis: Status: Acute (5) Chest pain: Status: Acute (6) TEDDY (acute kidney injury): Status: Acute (7) Guaiac + stool: Status: Acute (8) Anemia: Status: Acute (9) Depression: Status: Acute (10) Spondylisthesis: Status: Acute (11) Cerebral infarction, watershed distribution, unilateral, acute: Status: Acute (12) Acute right arterial ischemic stroke, middle cerebral artery (MCA): Status: Acute (13) Vasogenic cerebral edema: Status: Acute (14) Rhabdomyolysis: Status: Acute (15) Acute metabolic encephalopathy: Status: Acute (16) Acute kidney injury (TEDDY) with acute tubular necrosis (ATN): Status: Acute (17) ARDS (adult respiratory distress syndrome): Status: Acute (18) Multiorgan failure: Status: Acute (19) Acute renal failure: Status: Acute (20) Acquired urinary meatal stenosis: Status: Acute (21) Acute respiratory failure with hypoxia: Status: Acute (22) Pneumonia: Status: Acute Qualifiers: Laterality: left Lung location: upper lobe of lung Pneumonia type: due to unspecified organism Qualified Code(s): J18.9 - Pneumonia, unspecified organism (23) Sepsis: Status: Acute Qualifiers: Sepsis acute organ dysfunction status: without acute organ dysfunction Sepsis type: sepsis due to unspecified organism Qualified Code(s): A41.9 - Sepsis, unspecified organism (24) Anxiety: Status: Acute (25) Suicidal ideation: Status: Acute Additional A&P Information (1) Abdominal pain: (2) Constipation: (3) Panniculitis: (4) Sinusitis: (5) Chest pain: (6) TEDDY (acute kidney injury): (7) Guaiac + stool: (8) Anemia: (9) Depression: (10) Spondylisthesis: (11) Cerebral infarction, watershed distribution, unilateral, acute: (12) Acute right arterial ischemic stroke, middle cerebral artery (MCA): (13) Vasogenic cerebral edema: (14) Rhabdomyolysis: (15) Acute metabolic encephalopathy: (16) Acute kidney injury (TEDDY) with acute tubular necrosis (ATN): (17) ARDS (adult respiratory distress syndrome): (18) Multiorgan failure: (19) Acute renal failure: (20) Acquired urinary meatal stenosis: (21) Acute respiratory failure with hypoxia: (22) Pneumonia: (23) Sepsis: (24) Anxiety: (25) Suicidal ideation: Additional A&P Information This is a morbidly obese 51-year-old white male with a long history of mental health treatment and multiple medical comorbidities who presents reporting suicidal thoughts. 1. Continue current medication. Zoloft 50 mg and Geodon to 40 mg at dinner. 2. Continue 1:1 checks for safety. 3. Encourage use of CPAP and physical therapy. 4. Encourage sober living treatment after discharge at the highest level of care to which he is willing to commit. 5. Reconnect with [facility] [place]. Attestations U Medical Necessity Statement*: Inpatient hospitalization is medically necessary and the clinically appropriate intervention at this time. We will initiate medications and make changes as indicated. Coding Level of Care Code Acute Industrial Coffee Grinder for Chg Fwd Diagnoses Abdominal pain R10.84 Abdominal location: generalized Constipation K59.00 Constipation type: unspecified constipation type Panniculitis M79.3 Sinusitis J32.9 Chest pain R07.9 TEDDY (acute kidney injury) N17.9 Guaiac + stool R19.5 Anemia D64.9 Depression F32.A Spondylisthesis M43.10 Cerebral infarction, watershed distribution, unilateral, acute I63.89 Acute right arterial ischemic stroke, middle cerebral artery (MCA) I63.511 Vasogenic cerebral edema G93.6 Rhabdomyolysis M62.82 Acute metabolic encephalopathy G93.41 Acute kidney injury (TEDDY) with acute tubular necrosis (ATN) N17.0 ARDS (adult respiratory distress syndrome) J80 Multiorgan failure Acute renal failure N17.9 Acquired urinary meatal stenosis Acute respiratory failure with hypoxia J96.01 Pneumonia J18.9 Laterality: left Lung location: upper lobe of lung Pneumonia type: due to unspecified organism Sepsis A41.9 Sepsis acute organ dysfunction status: without acute organ dysfunction Sepsis type: sepsis due to unspecified organism Anxiety F41.9 Suicidal ideation R45.853
[2021-06-26] MEDS: ziprasidone hcl 40 mg Capsule PO (17:14)
--- NOTE | 2021-06-26 20:05 | PC.NURSE ---
PATIENT REMOVES NASAL CANNULA OFTEN, UNSUCCESSFUL WITH ATTEMPTS TO EDUCATE AND REDIRECT. PATIENT RESTLESSLY SLEEPING ON AND OFF, TOSSING AND TURNING IN BED. PATIENTS O2 SATS DIMINISH INTO THE LOW 80'S UPPER 70'S WHEN OXYGEN IS NOT IN PLACE. WILL CONTINUE TO MONITOR AND REAPPLY OXYGEN.
[2021-06-26] MEDS: montelukast sodium 10 mg Tablet PO (21:04)
[2021-06-26] MEDS: atorvastatin 40 mg Tablet 80 MG PO (21:04)
--- NOTE | 2021-06-26 23:00 | PC.NURSE ---
PATIENT STILL CONTINUING TO PULL OFF NASAL CANNULA THEN STATING I CAN'T BREATH TURN IT UP, THERE IS NOTHING COMING OUT. THIS NURSE HAS READJUSTED O2 TUBING FOR MAXIMUM COMFORT AND MADE SURE THERE WERE NO KINKS IN TUBING. MULTIPLE ATTEMPTS TO REEDUCATE PATIENT HAVE BEEN UNSUCCESSFUL. PATIENT HAS NOW AGREED TO TRY TO WEAR THE BIPAP MACHINE. RESPIRATORY HAS BEEN NOTIFIED AND IS ON THE WAY TO APPLY MASK.
--- NOTE | 2021-06-26 23:28 | PC.NURSE ---
PATIENT IS PULLING AT BI-PAP MASK TO TAKE IT OFF STATING IT'S MAKING ME NOT BREATH, I CAN'T DO THIS. THIS NURSE TRIED MULTIPLE ATTEMPTS TO REDIRECT PATIENT AND EDUCATE PATIENT ON IMPORTANCE OF WEARING THE BIPAP MASK AND TRYING TO SLEEP TO HELP HIM REST AND BREATH BETTER, PATIENT RESISTIVE TO EDUCATION. THIS NURSE NOTIFIED RESPIRATORY THAT PATIENT REMOVED TUBING FROM MASK SO THIS NURSE REMOVED MASK AND PUT PATIENT BACK ON THE NASAL CANNULA.
[2021-06-27] VITALS (9 sets, daily range): BP systolic 138–192; BP diastolic 60–86; PULSE 60–96; RESP 15–20; TEMP 36.4–36.9; O2SAT 90–96
[2021-06-27] MEDS: lisinopril 5 mg Tablet PO (06:08)
[2021-06-27] MEDS: atenolol 50 mg Tablet 100 MG PO (06:08)
[2021-06-27] MEDS: allopurinol 100 mg Tablet PO (06:08)
[2021-06-27] MEDS: aspirin 81 mg EC Tablet PO (06:08)
[2021-06-27] MEDS: pantoprazole DR 40 mg Tablet PO (06:08)
--- NOTE | 2021-06-27 07:27 | W.PM.NPUPNS ---
Subjective NPU Subjective: Interval history: He said that he did not see any bugs or lights on the ceiling. He has not been flying in the golf cart or anything for the last 48 hours. The sitter said that he moves his arms a lot when he is asleep. He tried to use the CPAP machine but could not tolerate it again last night. His sister is working today and cannot come pick him up until tomorrow. He said that he would like his medications available here when he leaves. He normally has not filled at [facility] but it will be more convenient since they are leaving town immediately. Takes his sister [address] Mental Status Exam MSE Comments: This is a morbidly obese white male in a hospital gown with limited grooming and eye contact. Fairly disheveled but not malodorous. No abnormal movements except for psychomotor retardation cooperative with exam in no distress. Speech was normal rate and volume and with significant dysarthria secondary to the extra tissue around his throat and mouth. Mood described as depressed and anxious, affect euthymic. Thought process organized. Thought content: Patient denies any suicidal ideation, visual or auditory hallucinations in the last 48 hours. Currently. Attention and concentration were intact and memory appeared reliable and were not formally tested. He is alert and oriented x3. Insight and judgment are impaired, impulse control is impaired. Cognition: Patient Appearance: Appropriate Level of Consciousness: Awake, Alert, Appropriate and Follows Commands Patient Cognition Impaired: No Ability to Follow Directions: Good Patient Orientation (long list): Person, Place, Name, Birthday, Month and Year Comprehension Ability: No Impairment Hallucination Type: Tactile and Visual Delusion Description: Not Present Thought Process: Disorganized Affect: Affect Description: Anxious Depressive Symptoms: Difficulty Making Decisions and Loss of Interest in Activities Behavior: Patient Behavior: Irritable and Uncooperative Speech Pattern: Mumbled and Unclear Vitals/I&O/Wt Last Vital Signs Temp 98.0 F 06/27/21 04:00 Pulse 60 06/27/21 04:00 Resp 17 06/27/21 04:00 BP 138/60 06/27/21 04:00 Pulse Ox 93 06/27/21 04:00 06/26/21 06/27/21 06/27/21 22:59 06:59 14:59 Intake Total 480 / 960 200 / 1160 Balance 480 / 960 200 / 1160 Data NPU : 06/20/21 13:14 06/20/21 13:14 A&P Assessment and plan (1) Abdominal pain: Status: Inactive Qualifiers: Abdominal location: generalized Qualified Code(s): R10.84 - Generalized abdominal pain (2) Constipation: Status: Inactive Qualifiers: Constipation type: unspecified constipation type Qualified Code(s): K59.00 - Constipation, unspecified (3) Panniculitis: Status: Inactive (4) Sinusitis: Status: Acute (5) Chest pain: Status: Acute (6) TEDDY (acute kidney injury): Status: Acute (7) Guaiac + stool: Status: Acute (8) Anemia: Status: Acute (9) Depression: Status: Acute (10) Spondylisthesis: Status: Acute (11) Cerebral infarction, watershed distribution, unilateral, acute: Status: Acute (12) Acute right arterial ischemic stroke, middle cerebral artery (MCA): Status: Acute (13) Vasogenic cerebral edema: Status: Acute (14) Rhabdomyolysis: Status: Acute (15) Acute metabolic encephalopathy: Status: Acute (16) Acute kidney injury (TEDDY) with acute tubular necrosis (ATN): Status: Acute (17) ARDS (adult respiratory distress syndrome): Status: Acute (18) Multiorgan failure: Status: Acute (19) Acute renal failure: Status: Acute (20) Acquired urinary meatal stenosis: Status: Acute (21) Acute respiratory failure with hypoxia: Status: Acute (22) Pneumonia: Status: Acute Qualifiers: Laterality: left Lung location: upper lobe of lung Pneumonia type: due to unspecified organism Qualified Code(s): J18.9 - Pneumonia, unspecified organism (23) Sepsis: Status: Acute Qualifiers: Sepsis acute organ dysfunction status: without acute organ dysfunction Sepsis type: sepsis due to unspecified organism Qualified Code(s): A41.9 - Sepsis, unspecified organism (24) Anxiety: Status: Acute (25) Suicidal ideation: Status: Acute Additional A&P Information (1) Abdominal pain: (2) Constipation: (3) Panniculitis: (4) Sinusitis: (5) Chest pain: (6) TEDDY (acute kidney injury): (7) Guaiac + stool: (8) Anemia: (9) Depression: (10) Spondylisthesis: (11) Cerebral infarction, watershed distribution, unilateral, acute: (12) Acute right arterial ischemic stroke, middle cerebral artery (MCA): (13) Vasogenic cerebral edema: (14) Rhabdomyolysis: (15) Acute metabolic encephalopathy: (16) Acute kidney injury (TEDDY) with acute tubular necrosis (ATN): (17) ARDS (adult respiratory distress syndrome): (18) Multiorgan failure: (19) Acute renal failure: (20) Acquired urinary meatal stenosis: (21) Acute respiratory failure with hypoxia: (22) Pneumonia: (23) Sepsis: (24) Anxiety: (25) Suicidal ideation: Additional A&P Information This is a morbidly obese 51-year-old white male with a long history of mental health treatment and multiple medical comorbidities who presents reporting suicidal thoughts. 1. Continue current medication. Zoloft 50 mg and Geodon to 40 mg at dinner. 2. Continue 1:1 checks for safety. 3. Encourage use of CPAP and physical therapy. 4. Encourage sober living treatment after discharge at the highest level of care to which he is willing to commit. 5. Reconnect with [facility] [place]. Attestations NPU Medical Necessity Statement*: Inpatient hospitalization is medically necessary and the clinically appropriate intervention at this time. We will initiate medications and make changes as indicated. 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 for g Fwd Diagnoses Abdominal pain R10.84 Abdominal location: generalized Constipation K59.00 Constipation type: unspecified constipation type Panniculitis M79.3 Sinusitis J32.9 Chest pain R07.9 TEDDY (acute kidney injury) N17.9 Guaiac + stool R19.5 Anemia D64.9 Depression F32.A Spondylisthesis M43.10 Cerebral infarction, watershed distribution, unilateral, acute I63.89 Acute right arterial ischemic stroke, middle cerebral artery (MCA) I63.511 Vasogenic cerebral edema G93.6 Rhabdomyolysis M62.82 Acute metabolic encephalopathy G93.41 Acute kidney injury (TEDDY) with acute tubular necrosis (ATN) N17.0 ARDS (adult respiratory distress syndrome) J80 Multiorgan failure Acute renal failure N17.9 Acquired urinary meatal stenosis Acute respiratory failure with hypoxia J96.01 Pneumonia J18.9 Laterality: left Lung location: upper lobe of lung Pneumonia type: due to unspecified organism Sepsis A41.9 Sepsis acute organ dysfunction status: without acute organ dysfunction Sepsis type: sepsis due to unspecified organism Anxiety F41.9 Suicidal ideation R45.859
[2021-06-27] MEDS: ferrous sulfate EC 325 mg Tablet PO ×2 (08:38→17:56)
[2021-06-27] MEDS: sitagliptin 100 mg Tablet 50 MG PO ×2 (08:38→17:55)
[2021-06-27] MEDS: folic acid 1 mg Tablet PO (08:38)
[2021-06-27] MEDS: metformin 500 mg Tablet 1000 MG PO ×2 (08:38→17:55)
[2021-06-27] MEDS: sertraline 50 mg Tablet PO (08:38)
[2021-06-27] MEDS: FUROsemide 40 mg Tablet PO (08:38)
--- NOTE | 2021-06-27 10:45 | PC.NURSE ---
Patient left floor for group therapy at this time with OT, 1:1 sitter and security.
--- NOTE | 2021-06-27 11:31 | PC.NURSE ---
Report called to NPU at this time. Patients belongings gathered and taken to unit.
[2021-06-27] MEDS: ziprasidone hcl 40 mg Capsule PO (17:56)
[2021-06-27 20:16] LABS: ABG PCO2 70.4 mmHg (35-45); ABG PH Result 7.37 (7.35-7.45); Arterial Blood Gas Hematocrit 28.6 % (42-52); Base Excess ABG 12.9 mmol/L (-2.0-2.0); Blood Gas Allen Test Pos; Blood Gas Sample Site Radial, left; Blood Gas Sample Type Arterial; Carboxyhemoglobin 1.5 %THgb (0.4-20.1); HCO3 ABG 40.3 mmol/L (22-26); Ionized Calcium Level - ABG 1.2 mmol/L (1.1-1.4); Methemoglobin 0.6 % (0.4-1.5); Oxygen Device NC; Oxygen Saturation ABG 96.1; PO2 ABG 83.1 mmHg (80.0-100.0); Potassium Level - ABG 4.4 mmol/L (3.5-5.0); Total Hemoglobin 9.3 g/dL (14-18)
--- NOTE | 2021-06-27 20:22 | ECG_ITS ---
[facility] Test Date: 2021-06-27 Pat Name: Arnol Guzman Department: Room: 112 Gender: Male Cutting Inspector: : 1970 Requested By: Chandler Heath Order Number: [id number] Bernardino MD: Crys Diggs M.D. Measurements Intervals [place] Rate: 93 P: 69 MA: 190 QRS: 87 QRSD: 96 T: 68 QT: 362 QTc: 451 Interpretive Statements SINUS RHYTHM INCOMPLETE RIGHT BUNDLE BRANCH BLOCK [90+ ms QRS DURATION, TERMINAL R IN V1/V2, 40+ ms S IN I/aVL/V4/V5/V6] Compared to ECG 06/22/2021 08:44:04 Atrial abnormality no longer present Electronically Signed On 06-28-2021 17:55:30 FIRE MEDIC by Crys Diggs M.D. [id number]
--- NOTE | 2021-06-27 20:45 | PC.NURSE ---
RAPID RESPONSE AT 1999, SKEIN YARN DRIER ENTERED THIS PT'S ROOM TO OBTAIN VITAL SIGNS. SKEIN YARN DRIER WAS UNABLE TO AROUSE PT. SKEIN YARN DRIER, MANAGER ATHLETICS AND RN ATTEMPTED TO WAKEN PT BY DOING STERNAL RUBS, PATTING LEGS AND ARMS BUT WAS NOT ABLE TO AROUSE PT. AT 2005, RAPID RESPONSE WAS CALLED. 2 NURSES RESPONDED FOLLOWED BY THE DR, MORE NURSES,RT AND SUPERVISOR CONTACT AND SERVICE CLERKS. BLOOD DRAWN BY LAB, ABG'S BY RT. ORDER RECEIVED TO TRANSFER PT TO CSU FOR HIGHER LEVEL OF CARE. REPORT CALLED, PT TRANSFERRED BY THIS NURSE AND SECURITY TO ROOM 112-1.
[2021-06-27 21:54] LABS: Glucose Point of Care 149 mg/dL (70-110)
[2021-06-27 21:56] LABS: Troponin(5th) Baseline 28 ng/L (0-15)
[2021-06-27 22:10] LABS: Troponin 5 2HR 29.79 ng/L (0-15); Troponin 5 2HR Delta 1.79 ABS# (0-10)
--- NOTE | 2021-06-27 22:22 | ECG_ITS ---
[facility] Test Date: 2021-06-27 Pat Name: Arnol Guzman Department: Room: 112 Gender: Male Traffic Control Technician: : 1970 Requested By: Chandler Heath Order Number: [id number] Bernardino MD: Crys Diggs M.D. Measurements Intervals [place] Rate: 85 P: 73 KS: 199 QRS: 92 QRSD: 113 T: 68 QT: 381 QTc: 454 Interpretive Statements SINUS RHYTHM BORDERLINE RIGHT AXIS DEVIATION [QRS AXIS > 90] INCOMPLETE RIGHT BUNDLE BRANCH BLOCK [90+ ms QRS DURATION, TERMINAL R IN V1/V2, 40+ ms S IN I/aVL/V4/V5/V6] Compared to ECG 06/27/2021 20:24:20 No significant changes Electronically Signed On 06-28-2021 17:57:33 SIGNAL MANAGER by Crys Diggs M.D. [id number]
[2021-06-28] VITALS (7 sets, daily range): BP systolic 126–148; BP diastolic 61–79; PULSE 65–71; RESP 14–21; TEMP 36.4; O2SAT 86–99
--- NOTE | 2021-06-28 02:22 | ECG_ITS ---
[facility] Test Date: 2021-06-28 Pat Name: Arnol Guzman Department: Room: 112 Gender: Male Principal Clerk: : 1970 Requested By: Chandler Heath Order Number: [id number] Bernardino MD: Crys Diggs M.D. Measurements Intervals [place] Rate: 63 P: 75 HI: 190 QRS: 90 QRSD: 112 T: 104 QT: 429 QTc: 441 Interpretive Statements SINUS RHYTHM INCOMPLETE RIGHT BUNDLE BRANCH BLOCK [90+ ms QRS DURATION, TERMINAL R IN V1/V2, 40+ ms S IN I/aVL/V4/V5/V6] Compared to ECG 06/27/2021 22:39:28 No significant changes Electronically Signed On 06-28-2021 17:57:18 LENS MOUNTER by Crys Diggs M.D. [id number]
[2021-06-28 03:17] LABS: Troponin 5 6HR 29.78 ng/L (0-15); Troponin 5 6HR Delta 1.78 ng/L (0-12)
[2021-06-28] MEDS: pantoprazole DR 40 mg Tablet PO (06:10)
[2021-06-28] MEDS: allopurinol 100 mg Tablet PO (06:10)
[2021-06-28] MEDS: atenolol 50 mg Tablet 100 MG PO (06:10)
[2021-06-28] MEDS: aspirin 81 mg EC Tablet PO (06:10)
[2021-06-28] MEDS: lisinopril 5 mg Tablet PO (06:10)
--- NOTE | 2021-06-28 06:36 | PC.NURSE ---
Admit Note 06/27/21-Around 1999: Patient admitted to CSU from NPU via hospital bed post rapid response. Covering service notified. Patient presents with AMS. Orders reviewed & will continue to monitor. Patient has 1:1 sitter. Sitter oriented to environment, equipment, and informed of the reportable s/s. Patient is obtunded, cannot provided teaching at this time.
--- NOTE | 2021-06-28 06:44 | PC.NURSE ---
Around 0000: Orders received from Dr. Heath, Hospitalist for Patient to have 1:1 sitter. Around 0200: Patient unable to void. Orders received from Dr. Heath to insert Shaw catheter. Patient noted to have rash in groin folds. Dr. Heath notified. Orders received, see
[2021-06-28 07:02] LABS: Glucose Point of Care 122 mg/dL (70-110)
[2021-06-28] MEDS: FUROsemide 40 mg Tablet PO (09:06)
[2021-06-28] MEDS: ferrous sulfate EC 325 mg Tablet PO (09:07)
[2021-06-28] MEDS: metformin 500 mg Tablet 1000 MG PO (09:07)
[2021-06-28] MEDS: folic acid 1 mg Tablet PO (09:07)
[2021-06-28] MEDS: sitagliptin 100 mg Tablet 50 MG PO (09:07)
[2021-06-28] MEDS: sertraline 50 mg Tablet PO (09:07)
[2021-06-28] MEDS: nystatin cream 30 gm 1 APPLIC TOPICAL (09:11)
--- NOTE | 2021-06-28 09:24 | XR_ITS ---
WS: [id number] Exam: XR chest 1V portable [id number] Date/Time of Exam: 06/28/2021 9:27 AM Reason For Exam: hypoxia Comparison 06/19/2021. The lungs remain clear and fully expanded. Mild cardiac enlargement unchanged. No pleural effusions. The mediastinum and osseous thorax are unremarkable. Monitoring leads superimpose the chest. XR/XR chest 1V portable [id number] IMPRESSION: 1. No acute process identified. Mild cardiac enlargement unchanged.
--- NOTE | 2021-06-28 09:27 | PM.CONSULT ---
Providers/Reason For Consult Consulting Physician/Specialty*: Anthony Michaels MD, hospitalist Reason for Consult*: Unresponsive episode Attending Physician: Tyshawn Kelley MD Primary Care Provider: Stewart Rosario MD History of Present Illness History of Present Illness Arnol Guzman is a 51 year old male who had a rapid response called on him last night. He was on the neuropsychiatric floor. A hospitalist responded to the event, and was concerned this was from CO2 retention. An ABG was done and patient was placed on BiPAP and a Shaw was placed. Although I cannot find much collateral history regarding events after this it appears a blood sugar was done and patient was responsive shortly after. He does have a history of CO2 retention, chronic respiratory failure likely secondary to obesity hypoventilation and is supposed to be on CPAP. He had not been using that at home, nor using it significantly at the hospital. Nursing had tried to prompt him to use. Currently the patient reports he feels fine. He wanted his urinary catheter removed which I ordered this morning. He denied any chest pain or shortness of breath. He reports he has not been ill lately, and is feeling better from a psychiatric standpoint with adjustment of his medications and his psychiatric stay. Review of Systems General: Reports: 10 or more systems reviewed and unremarkable except in HPI and below Const: Denies: fever(s) Eyes: Denies: change in vision ENMT: Denies: throat pain Card: Denies: chest pain Resp: Denies: dyspnea GI: Denies: abdominal pain : Denies: flank pain Musc: Denies: neck pain Skin/Breast: Denies: rash Neuro: Denies: headache(s) Psych: Reports: depression Endo: Denies: polyuria Mendel/Lymph: Denies: easy bruising All/Imm: Denies: urticaria Meds/Allergies Home Medications and Allergies Home Medications Medication Instructions Recorded Confirmed Last Taken Type atorvastatin [Lipitor] 80 mg PO BEDTIME 07/14/19 06/20/21 02/15/21 History montelukast [Singulair] 10 mg PO BEDTIME 07/14/19 06/20/21 02/15/21 History omeprazole 40 mg PO QAM 07/14/19 06/20/21 02/16/21 History glipizide 10 mg PO BID 01/21/20 06/20/21 02/16/21 07:30 History oxygen-air delivery systems #1 03/11/20 06/20/21 Unknown History albuterol sulfate 90 mcg/actuation 2 puff INHALATION Q6H PRN 05/19/20 06/20/21 Unknown History aerosol inhaler aspirin 81 mg PO QAM 09/13/20 06/20/21 02/16/21 07:30 History Dulera 2 puff INHALATION BID 11/24/20 06/20/21 02/16/21 History atenolol [Tenormin] 100 mg PO QAM 11/24/20 06/20/21 02/16/21 07:30 History Janumet 1 tab PO BID 02/16/21 06/20/21 02/16/21 07:30 History allopurinol 100 mg PO QAM 02/16/21 06/20/21 02/16/21 07:30 History lisinopril 5 mg PO QAM 02/16/21 06/20/21 02/16/21 History fluconazole [Diflucan] 150 mg PO Q3D #2 tab 06/18/21 06/20/21 Unknown Rx acetaminophen 500 mg PO Q6H PRN 5 Days #20 tab 06/19/21 06/20/21 Unknown Rx folic acid 1 mg PO DAILY 06/20/21 06/20/21 Unknown History furosemide 40 mg PO DAILY 06/20/21 06/20/21 Unknown History ferrous sulfate 325 mg PO BID 06/22/21 06/22/21 Unknown History Allergies Allergy/AdvReac Type Severity Reaction Status Date / Time Penicillins Allergy ALGY-Hives Verified 06/20/21 13:12 diltiazem [From Cardizem] AdvReac ADR/ALGY-Pa Verified 06/20/21 13:12 lpitations Current Medications Current Medications Generic Name Dose Route Start Last Admin Trade Name Freq PRN Reason Stop Dose Admin Albuterol Sulfate 2 puff 06/22/21 11:34 06/24/21 09:12 Albuterol 8 Gm Mdi INHALATION 2 puff Q6H PRN Administration Shortness Of Breath Allopurinol 100 mg 06/23/21 06:00 06/28/21 06:10 Allopurinol 100 Mg Tablet PO 100 mg QAM NESSA Administration Aspirin 81 mg 06/22/21 11:34 06/28/21 06:10 Aspirin 81 Mg Ec Tablet PO 81 mg QAM NESSA Administration Atenolol 100 mg 06/22/21 11:34 06/28/21 06:10 Atenolol 50 Mg Tablet PO 100 mg QAM NESSA Administration Atorvastatin Calcium 80 mg 06/22/21 21:00 06/27/21 23:30 Atorvastatin 40 Mg Tablet PO Not Given BEDTIME NESSA Ferrous Sulfate 325 mg 06/22/21 18:00 06/28/21 09:07 Ferrous Sulfate Ec 325 Mg Tablet PO 325 mg BID NESSA Administration Fluconazole 150 mg 06/22/21 11:45 06/25/21 11:11 Fluconazole 100 Mg Tablet PO 150 mg Q3D NESSA Administration Folic Acid 1 mg 06/22/21 11:45 06/28/21 09:07 Folic Acid 1 Mg Tablet PO 1 mg DAILY NESSA Administration Furosemide 40 mg 06/22/21 11:34 06/28/21 09:06 Furosemide 40 Mg Tablet PO 40 mg DAILY NESSA Administration Lisinopril 5 mg 06/23/21 11:34 06/28/21 06:10 Lisinopril 5 Mg Tablet PO 5 mg QAM NESSA Administration Metformin HCl 1,000 mg 06/22/21 18:00 06/28/21 09:07 Metformin 500 Mg Tablet PO 1,000 mg BID NESSA Administration Montelukast Sodium 10 mg 06/22/21 21:00 06/27/21 23:31 Montelukast Sodium 10 Mg Tablet PO Not Given BEDTIME [facility] Non-Formulary Medication 2 puff 06/22/21 11:34 06/28/21 09:10 Mometasone-Formoterol [Dulera] INHALATION Not Given BID [facility] Nystatin 1 applic 06/28/21 09:00 06/28/21 09:11 Nystatin Cream 30 Gm TOPICAL 1 applic BID NESSA Administration Pantoprazole Sodium 40 mg 06/23/21 11:34 06/28/21 06:[address] 40 Mg Tablet PO 40 mg QAM NESSA Administration Sertraline HCl 50 mg 06/25/21 09:00 06/28/21 09:07 Sertraline 50 Mg Tablet PO 50 mg DAILY NESSA Administration Sitagliptin Phosphate 50 mg 06/22/21 18:00 06/28/21 09:07 Sitagliptin 100 Mg Tablet PO 50 mg BID NESSA Administration Ziprasidone 40 mg 06/25/21 17:00 06/27/21 17:56 Ziprasidone Hcl 40 Mg Capsule PO 40 mg 1700 NESSA Administration PFSH Acute PFSH: Medical History (Updated 06/28/21 @ 13:26 by Anthony Michaels MD) Anemia -has chronic iron deficiency anemia, baseline Hg is around 9-10 -stable H/H -was previously on iron supplementation CHF (congestive heart failure) -Echo (07/2019): EF=68%, normal diastolic function, no RWMA -on oral lasix -no acute exacerbation currently Decubitus ulcer limited to breakdown of skin (stage 2) Diabetes -NIDDM type II -A1c (11/2019): 8.2 -Accuchecks, ISS, hypoglycemia precautions -consistent carb diet -anticipate hyperglycemia with steroid use Gout Hyperlipemia, mixed Hypertension -VSS; continue to monitor -continue oral antihypertensives Morbid (severe) obesity due to excess calories OPAL (obstructive sleep apnea) -in the process of getting CPAP set up Pneumonia Psychiatric care Transient cerebral ischemia Surgical History History of adenoidectomy History of hernia repair History of tonsillectomy History of umbilical hernia repair Family History Mother Hypertension CAD (coronary artery disease) Stroke Social History Smoking and tobacco status: never smoked Second hand smoke exposure: Yes Alcohol intake: never Adopted: No Caregiver/support person: No Lives independently: Yes Household members: family and friend(s) Housing: Manufactured/Mobile home Marital status: Single Number of children: 0 Number of grandchildren: 0 Highest education level completed: 8th Grade service: No Current occupational status: disabled Pets and animals: No History of recent travel: No Leisure activites: other Leisure activities details: play card games Sexually active: No Current gender identity: Male Yolanda/Restoration: Other Special yolanda needs: No Agree to transfusion: Yes Financial difficulty paying for basics: Hard Vitals/I&O/Wt Last Vital Signs Temp 97.5 F L 06/28/21 05:18 Pulse 71 06/28/21 05:23 Resp 21 H 06/28/21 05:18 BP 148/61 06/28/21 05:18 Pulse Ox 99 06/28/21 05:23 06/27/21 06/28/21 06/28/21 22:59 06:59 14:59 Intake Total 0 / 360 100 / 460 Output Total 0 / 0 500 / 500 Balance 0 / 360 -400 / -40 Physical Exam Narrative: EXAM NARRATIVE: General exam is an alert and responsive male, in no distress. HEENT: Atraumatic normocephalic. Oropharynx clear. Neck is supple no lymphadenopathy or thyromegaly Cardiovascular regular rate and rhythm, heart sounds distant, no murmur Lungs clear but with diminished breath sounds at the bases no wheezes or crackles Abdomen soft obese nontender exam demonstrated Shaw which has since been removed Extremities no cyanosis clubbing or edema Neuro no obvious focal deficits Skin no rash Data Other Data: Other data: Chest x-ray done today demonstrates no infiltrate Troponins showed no significant delta Blood sugar when checked was over 100 ABG demonstrated a pH of 7.37, PCO2 70, PO2 of 83 on 4 L A&P Assessment and plan (1) Unresponsive: Patient had an episode of unresponsiveness last night associated with a high CO2 level. CBC, CMP, and chest x-ray done today demonstrated no different etiology. Glucose was not low during the event. Patient has severe sleep apnea for which he is to be on CPAP. He has not been compliant with this inpatient or outpatient. He very likely has underlying obesity hypoventilation as well. He needs to be on a lower level of oxygen to try to prevent CO2 retention. On testing today, this is 2 L at rest, 3 L with exertion. Increasing oxygen up past this may promote more CO2 retention and lethargy, accentuated when the patient is sleeping. I discussed with him as well as a family member the great importance of the above, wearing CPAP, and avoiding alcohol as well as any sedating medications. They both exhibited understanding. Status: Acute (2) Chronic respiratory failure: See above. May need consideration of reevaluation by pulmonary as an outpatient if CPAP is adjusted or BiPAP warranted in the future. Status: Acute (3) Depression: As per psychiatry Status: Acute (4) Anemia: Recommended outpatient follow-up through his primary care provider. Voiced this to his sister as well. Status: Acute Qualifiers: Anemia type: iron deficiency Iron deficiency anemia type: unspecified iron deficiency Qualified Code(s): D50.9 - Iron deficiency anemia, unspecified (5) CHF (congestive heart failure): Status: Acute Qualifiers: Heart failure chronicity: chronic Heart failure type: diastolic Qualified Code(s): I50.32 - Chronic diastolic (congestive) heart failure Additional A&P Information Thank you for this consultation. Consult Attestations Medical Necessity Statement: As per primary Time Spent in Patient Care: Greater than 35 minutes Coding Level of Care Code Acute Desizing Machine Operator for [facility] Fwd Diagnoses Unresponsive R41.89 Chronic respiratory failure J96.10 Depression F32.A Anemia D50.9 Anemia type: iron deficiency Iron deficiency anemia type: unspecified iron deficiency CHF (congestive heart failure) I50.32 Heart failure chronicity: chronic Heart failure type: diastolic
[2021-06-28] MEDS: tamsulosin 0.4 mg Capsule PO (10:52)
[2021-06-28 12:17] LABS: Basophils % 0.3 %; Eosinophils % 0.7 %; Hematocrit 33.4 % (42.0-52.0); Hemoglobin 8.7 g/dL (11.7-16.6); Lymphocytes # 0.7 10^3/uL (0.8-4.8); Lymphocytes % 11.3 %; Mean Corpuscular Hemoglobin 22.7 pg (28.0-34.0); Mean Platelet Volume 9.9 fL (7.4-10.4); Monocytes # 0.4 10^3/uL (0.2-0.9); Monocytes % 7.3 %; Neutrophils # 4.69 10^3/uL (1.8-7.7); Neutrophils % 80.1 %; Nucleated Red Blood Cells % 0 %; Platelet Count 218 10^3/cmm (130-400); Red Blood Count 3.84 10^6/uL (4.1-5.3); Red Cell Distribution Width 20.1 % (12.1-15.1); White Blood Count 5.9 10^3/uL (4.0-10.0)
[2021-06-28] MEDS: fluconazole 100 mg Tablet 150 MG PO (12:31)
[2021-06-28 12:38] LABS: Alanine Aminotransferase 14 U/L (0-41); Albumin Level 3.4 g/dL (3.5-5.2); Alkaline Phosphatase 157 IU/L (40-130); Anion Gap 14.5 (5-19); Aspartate Amino Transferase 12 U/L (0-40); Blood Urea Nitrogen 15 mg/dL (6-20); Calcium 8.5 mg/dL (8.5-10.5); Carbon Dioxide 34 mmol/L (22-29); Chloride 99 mmol/L (98-107); Globulin 3.6 g/dL (1.3-4.6); Glomerular Filtration Rate 71.1 mL/min (90-130); Glucose 133 mg/dL (65-115); Osmolality Calculated 299 mOsm/kg (285-295); Potassium 4.5 mmol/L (3.5-5.1); Sodium 143 mmol/L (136-145)
--- NOTE | 2021-06-28 14:37 | P.NPUDS_ITS ---
Diagnoses at Discharge Discharge Diagnosis (1) Unresponsive: Status: Acute (2) Chronic respiratory failure: Status: Acute (3) Depression: Status: Acute (4) Anemia: Status: Acute Permanent problem details: -has chronic iron deficiency anemia, baseline Hg is around 9-10 -stable H/H -was previously on iron supplementation Qualifiers: Anemia type: iron deficiency Iron deficiency anemia type: unspecified iron deficiency Qualified Code(s): D50.9 - Iron deficiency anemia, unspecified (5) CHF (congestive heart failure): Status: Acute Permanent problem details: -Echo (07/2019): EF=68%, normal diastolic function, no RWMA -on oral lasix -no acute exacerbation currently Qualifiers: Heart failure chronicity: chronic Heart failure type: diastolic Qualified Code(s): I50.32 - Chronic diastolic (congestive) heart failure Reason for Visit Reason for Visit: SUICIDAL IDEATIONS Brief History: History of Present Illness Arnol Guzman is a 51 year old male who presented to the emergency department multiple days in a row with complaints mostly physical but on his presentation on June 19, 2021 he endorsed being unsafe to go home. Multiple calls were made to discuss his situation with his treatment team at [facility] as well as his sister that is his POA and additionally there were affidavits on his chart 1 of which identified that his gas was on when the EMT got to his home. Raising significant questions about the safety of him returning home without some psychiatric intervention. Consideration of admission to the [facility] inpatient psychiatric unit was made however due to staffing and acuity the ability to handle him, his physical needs and his medical needs including O2 continuously on a psychiatric unit for 2 months for the unit at this current time and staffing. Multiple attempts were made to identify alternative units including those that might specialize in geriatric care given his needs were more consistent with a geriatric patient, however there were no options available. And given the emergency room [facility] and the inability for him to manage his at [facility] inpatient psychiatric unit he was admitted to the [facility] unit for ongoing treatment and evaluation. A psychiatric consult was done yesterday and an excerpt from that note is included below for context. Also he was unable to really identify his medication so and working with the nurse to get clarification of what is taking so we can then begin to evaluate what we can add or subtract to help with his anxiety or depression. Per his 06/21/2021 [facility] emergency room consult: History of Present Illness Arnol Guzman is a 51 year old male who presented to the emergency department with the following report: Chief complaint: Psychiatric Symptoms Stated complaint: SUICIDAL IDEATIONS Time Seen by Provider: 06/20/21 11:38 History of Present Illness: HPI narrative: HPI: [51]yo patient w/ hx of intellectual disability, depression, CHF presenting for suicidal ideation. Patient has no concrete plan. On arrival, the patient is AAOx3 and cooperative with my evaluation. No focal complaints of chest pain, shortness of breath, palpitations, N/V, focal GI/ complaints. Denies HI. No complaints of hallucinations. Onset: acute x 1 day Duration: ongoing Location: home Severity: severe. Psychiatric consult was requested as he was endorsing suicidality. Patient presents today endorsing a long history of psychiatric care reporting hospitalizations in the past reports the last hospitalization was in 19-here at [facility]. Reports that that is happened multiple times. Since then he has been at [facility] and having follow-up fairly regularly until the last month. He reports that he is depressed and he is unable to contract for safety outside the hospital. He reports that his circumstances at home seem futile. He reports that he was not doing well with his medications and feeling depressed and anxious. He reports he been having panic attacks and things of that nature. And he cannot be managed safely at home. He reportedly has home health care that comes in a couple times a week and assist him with his overall care. Based on the odor in the room and his body habitus is very likely that he is able to manage basic tasks like wiping after having a bowel movement and cleaning his body appropriately. According to him the person that comes in a couple times a week does help with showering and cleaning himself in a limited fashion. His sister who is reportedly his POA presents reporting that she is really worried about his safety. Multiple calls were made including to [facility] who reports that he had a call from this patient regarding coming to the hospital because of a possible overdose with a report that he was very cagey and answering their questions. He has been to the emergency department multiple times in the past week and months. He could not recall the specific names of his medications and reports that he would desire inpatient care somewhere. Hospital Course Hospital Course He slowly acclimated to the individual, group and milieu therapies provided. He was started on Zoloft 50 mg. He was hallucinating and was started on Geodon increased to 40 mg which ended the hallucinations. He was uncooperative with the CPAP machine. He became unresponsive at 1 point and it was decided that it was due to high carbon dioxide levels. It was deemed essential for him to wear the CPAP machine at night. He tolerated these doses and showed steady improvement during his stay. He was able to contract for safety outside hospital prior to discharge. During the hospitalization, patient had routine laboratory studies which were within normal limits except for few outliers. Additionally there was a general medical evaluation which was also within normal limits and revealed no new acute processes. Discharge Summary: At the time of discharge, lethality was denied and psychosis was resolving. Mood and anxiety were well managed. Patient endorsed a plan to follow-up with the aftercare recommendations of the treatment team. Patient was evaluated and deemed to be absent credible lethality, and had achieved the maximum benefit from an inpatient hospitalization, so was discharged. Involuntary Hold Information 96 Hour Hold: 96 Hour Involuntary Admission: Yes 96 Hour Hold Ending Date: 06/27/21 96 Hour Hold Ending Time: 20:54 Mental Status Exam MSE Comments: This is a morbidly obese white male in a hospital gown with limited grooming and eye contact. Fairly disheveled but not malodorous. No abnormal movements except for psychomotor retardation cooperative with exam in no distress. Speech was normal rate and volume and with significant dysarthria secondary to the extra tissue around his throat and mouth. Mood described as depressed and anxious, affect euthymic. Thought process organized. Thought content: Patient denies any suicidal ideation, visual or auditory hallucinations in the last 48 hours. Attention and concentration were intact and memory appeared reliable and were not formally tested. He is alert and oriented x3. Insight and judgment are impaired, impulse control is impaired. Cognition: Patient Appearance: Appropriate Level of Consciousness: Awake, Alert, Appropriate and Follows Commands Patient Cognition Impaired: No Ability to Follow Directions: Good Patient Orientation (long list): Person, Place, Name, Birthday, Month and Year Comprehension Ability: No Impairment Hallucination Type: Tactile and Visual Delusion Description: Not Present Thought Process: Disorganized Affect: Affect Description: Anxious Depressive Symptoms: Difficulty Making Decisions and Loss of Interest in Activities Behavior: Patient Behavior: Irritable and Uncooperative Speech Pattern: Mumbled and Unclear Discharge Data Data Completed and Pending: Completed Studies During Hospitalization Category Date Time Status XR chest 1V camila ble [id number] Routine Exams 06/28/21 09:24 Completed Labs from last 24 hours 06/28/21 06/28/21 06/28/21 11:08 11:08 06:27 WBC 5.9 RBC 3.84 L Hgb 8.7 L Hct 33.4 L MCV 87.0 MCH 22.7 L MCHC 26.0 L RDW 20.1 H Plt Count 218 MPV 9.9 Neut % (Auto) 80.1 Lymph % (Auto) 11.3 Maury % (Auto) 7.3 Eos % (Auto) 0.7 Baso % (Auto) 0.3 Neut # (Auto) 4.69 Lymph # (Auto) 0.7 L Maury # (Auto) 0.4 Eos # (Auto) 0.0 Baso # (Auto) 0.0 Nucleated RBC % (a uto) 0 Nucleated RBCs # 0.0 Specimen Type Sample Site ABG pH ABG pCO2 ABG pO2 ABG HCO3 ABG O2 Saturation ABG Base Excess Luis Test A-a O2 Gradient Hematocrit Hgb O2 Saturation Carboxyhemoglobin Methemoglobin Total Hemoglobin Sodium 143 Potassium 4.5 Glucose 133 H Ionized Calcium O2 Delivery Device O2 Liters/Min Calender Machine Operator ID Chloride 99 Carbon Dioxide 34 H Anion Gap 14.5 BUN 15 Creatinine 1.1 GFR Calculation 71.1 L POC Glucose 122 H Calculated Osmolal ity 299 H Calcium 8.5 Total Bilirubin 1.0 AST 12 ALT 14 Alkaline Phosphata se 157 H Troponin T Baselin e Troponin T 120 Min [place] Delta Troponin T Troponin T Hi Sens 6Hr Troponin T Hi Sens 6Hr Delta Total Protein 7.0 Albumin 3.4 L Globulin 3.6 06/28/21 06/27/21 06/27/21 02:39 21:22 20:14 WBC RBC Hgb Hct MCV MCH MCHC RDW Plt Count MPV Neut % (Auto) Lymph % (Auto) Maury % (Auto) Eos % (Auto) Baso % (Auto) Neut # (Auto) Lymph # (Auto) Maury # (Auto) Eos # (Auto) Baso # (Auto) Nucleated RBC % (a uto) Nucleated RBCs # Specimen Type Arterial Sample Site Radial, left ABG pH 7.37 ABG pCO2 70.4 H* ABG pO2 83.1 ABG HCO3 40.3 H ABG O2 Saturation 96.1 ABG Base Excess 12.9 H Luis Test Pos A-a O2 Gradient Not Reportable Hematocrit 28.6 L Hgb O2 Saturation 94.0 L Carboxyhemoglobin 1.5 Methemoglobin 0.6 Total Hemoglobin 9.3 L Sodium 146.0 H Potassium 4.4 Glucose 164.0 H Ionized Calcium 1.2 O2 Delivery Device Nc O2 Liters/Min 4.0 Calender Machine Operator ID ellpe Chloride Carbon Dioxide Anion Gap BUN Creatinine GFR Calculation POC Glucose Calculated Osmolal ity Calcium Total Bilirubin AST ALT Alkaline Phosphata se Troponin T Baselin e Troponin T 120 Min [place] 29.79 H Delta Troponin T 1.79 Troponin T Hi Sens 6Hr 29.78 H Troponin T Hi Sens 6Hr Delta 1.78 Total Protein Albumin Globulin 06/27/21 06/27/21 20:12 20:06 WBC RBC Hgb Hct MCV MCH MCHC RDW Plt Count MPV Neut % (Auto) Lymph % (Auto) Maury % (Auto) Eos % (Auto) Baso % (Auto) Neut # (Auto) Lymph # (Auto) Maury # (Auto) Eos # (Auto) Baso # (Auto) Nucleated RBC % (a uto) Nucleated RBCs # Specimen Type Sample Site ABG pH ABG pCO2 ABG pO2 ABG HCO3 ABG O2 Saturation ABG Base Excess Luis Test A-a O2 Gradient Hematocrit Hgb O2 Saturation Carboxyhemoglobin Methemoglobin Total Hemoglobin Sodium Potassium Glucose Ionized Calcium O2 Delivery Device O2 Liters/Min Calender Machine Operator ID Chloride Carbon Dioxide Anion Gap BUN Creatinine GFR Calculation POC Glucose 149 H Calculated Osmolal ity Calcium Total Bilirubin AST ALT Alkaline Phosphata se Troponin T Baselin e 28 H Troponin T 120 Min [place] Delta Troponin T Troponin T Hi Sens 6Hr Troponin T Hi Sens 6Hr Delta Total Protein Albumin Globulin Vitals: Last Vital Signs Temp 97.5 F L 06/28/21 05:18 Pulse 71 06/28/21 05:23 Resp 21 H 06/28/21 05:18 BP 148/61 06/28/21 05:18 Pulse Ox 86 L 06/28/21 11:27 Discharge Plan Discharge Patient Disposition: Home Condition: Stable Prescriptions: New tamsulosin 0.4 mg Capsule 0.4 mg PO DAILY 30 Days Qty: 30 RF: 0 ziprasidone HCl 40 mg Capsule 40 mg PO 1700 30 Days Qty: 30 RF: 0 sertraline 50 mg Tablet 50 mg PO DAILY 30 Days Qty: 30 RF: 0 Continued (DME) oxygen-air delivery systems Device See Rx Instructions .ROUTE .MEDSUPPLY Qty: 1 RF: 0 albuterol sulfate 90 mcg/actuation HFA aerosol inhaler 2 puff inhalation Q6H PRN (Reason: Shortness Of Breath) RF: 0 atorvastatin [Lipitor] 80 mg Tablet 80 mg PO BEDTIME RF: 0 omeprazole 40 mg Capsule,Delayed Release(Dr/Ec) 40 mg PO QAM RF: 0 montelukast [Singulair] 10 mg Tablet 10 mg PO BEDTIME RF: 0 glipizide 10 mg Tablet Extended Release 24hr 10 mg PO BID RF: 0 aspirin 81 mg Tablet,Delayed Release (Dr/Ec) 81 mg PO QAM RF: 0 atenolol [Tenormin] 100 mg tablet 100 mg PO QAM RF: 0 Dulera 200-5 mcg/actuation HFA aerosol inhaler 2 puff INHALATION BID RF: 0 allopurinol 100 mg tablet 100 mg PO QAM RF: 0 lisinopril 5 mg tablet 5 mg PO QAM RF: 0 Janumet 50-1,000 mg tablet 1 tab PO BID RF: 0 fluconazole [Diflucan] 150 mg tablet 150 mg PO Q3D Qty: 2 RF: 0 acetaminophen 500 mg tablet 500 mg PO Q6H PRN (Reason: pain) 5 Days Qty: 20 RF: 0 furosemide 40 mg tablet 40 mg PO DAILY RF: 0 folic acid 1 mg tablet 1 mg PO DAILY RF: 0 ferrous sulfate 325 mg (65 mg iron) tablet 325 mg PO BID RF: 0 Discharge Orders: Discharge Order (Routine); Ordered 06/28/21 Ordered By: Barrett Hernandez Other Ambulatory Orders: DME: Oxygen (Order) Location: None Selected Ordered By: Anthony Michaels Referrals: [facility] [Other] - 1-3 days (Mickey Weber will contact you and call if you have not been contacted by 3 days after discharge.) Stewart Rosario MD [Primary Care Provider] - Discharge Diet: Diabetic Discharge Activity: Resume usual activity Patient Instructions: Opioid Safety Activity Restrictions/Additional Instructions: Avoid sedating medication. This may worsen sleep apnea and CO2 retention. Your oxygen should be set on 2 L at rest, 3 L with exertion. Make sure this is at 2 L when you are not exerting yourself. Wear your CPAP every night, and whenever you nap. Avoid all alcohol. This can worsen sleep apnea. Discharge Attestations NPU Time Spent in Discharge Care*: less than 30 min Specific Discharge Activities: Specific discharge activities: educating patient, discussing with cyanide case hardener/social workers/dc planners, documenting/other paperwork and evaluating patient/reviewing data Status at Discharge: Cognitive status at discharge: cognitively intact , Behavioral status at discharge: cooperative , Coding Level of Care Code Acute [facility] DC note Diagnoses Unresponsive R41.89 Chronic respiratory failure J96.10 Depression F32.A Anemia D50.9 Anemia type: iron deficiency Iron deficiency anemia type: unspecified iron deficiency CHF (congestive heart failure) I50.32 Heart failure chronicity: chronic Heart failure type: diastolic
--- NOTE | 2021-06-28 16:35 | PC.NURSE ---
Discharge Note Patient discharged to Home with family via private vehicle accompanied by sister. Discharge instructions reviewed with patient and/or insurance follow up representative. Mobile pharmacy medications and/or prescriptions provided. Belongings/home medications returned.
== END 2021-06-28 16:35 | disposition home or self-care (01) | DRG 881 ==
LOC: ER 18:04 → MEDSURG 06-22 13:18 → NP 06-27 11:39 → CSU 06-27 20:37
PROVIDERS: Hospitalist; Internal Medicine; Admitting Provider Psychiatry & Neurology Psychiatry; Emergency Provider Emergency Medicine; PCP Family Medicine; Visit Provider Psychiatry & Neurology Psychiatry
DX: F32.A Depression, unspecified (principal); R45.851 Suicidal ideations; R44.0 Auditory hallucinations; Z68.45 Body mass index [BMI] 70 or greater, adult; I50.32 Chronic diastolic (congestive) heart failure; J96.10 Chronic respiratory failure, unspecified whether with hypoxia or hypercapnia; E66.2 Morbid (severe) obesity with alveolar hypoventilation; I11.0 Hypertensive heart disease with heart failure; Z99.81 Dependence on supplemental oxygen; F41.9 Anxiety disorder, unspecified; R41.89 Other symptoms and signs involving cognitive functions and awareness; D50.9 Iron deficiency anemia, unspecified; Z79.82 Long term (current) use of aspirin; E11.9 Type 2 diabetes mellitus without complications; Z79.84 Long term (current) use of oral hypoglycemic drugs; E78.2 Mixed hyperlipidemia; F79 Unspecified intellectual disabilities
CPT/HCPCS: 36415; 36416; 36600; 71045; 80048; 80051; 80053; 80306; 80307; 82330; 82805; 82962; 84484; 85025; 93005; 94640; 94660; 94664; 97110; 97116; 97150; 97161; 97165; 97530; 97535; J3535

== ENCOUNTER → 2021-07-05 07:28 | Outpatient (BNVA) | payer MEDICAID, SELFPAY | PROVIDERS: PCP Family Medicine; Visit Provider Counselor Professional | DX: F33.1 Major depressive disorder, recurrent, moderate (principal) | CPT/HCPCS: 90832 ==

== ENCOUNTER → 2021-07-11 08:07 | Outpatient (BNVA) | payer MEDICAID, SELFPAY | PROVIDERS: PCP Family Medicine; Visit Provider Counselor Professional | DX: F33.1 Major depressive disorder, recurrent, moderate (principal) | CPT/HCPCS: 90832 ==

== ENCOUNTER 2021-07-13 07:24 | Inpatient (IN) | payer MEDICAID, SELFPAY ==
[2021-07-13] VITALS (10 sets, daily range): BP systolic 145–178; BP diastolic 60–89; PULSE 66–98; RESP 16–24; TEMP 36.4–36.8; O2SAT 93–98
--- NOTE | 2021-07-13 07:35 | XRR_ITS ---
PROCEDURE INFORMATION: Exam: XR Chest Exam date and time: 07/13/2021 7:35 AM Age: 51 years old Clinical indication: Pain; Angina pectoris; Additional info: Cp TECHNIQUE: Imaging protocol: XR of the chest. Views: 1 view. COMPARISON: CR XR chest 1V portable [id number] 06/28/2021 9:31 AM FINDINGS: Lungs: The left lower lung is obscured by the cardiac structure. Pleural spaces: Unremarkable. No pleural effusion. No pneumothorax. Heart/Mediastinum: Cardiac silhouette is accentuated and similar. Vasculature: Vascular crowding. Limited inspiration versus pulmonary venous congestion. Bones/joints: Degenerative change of the spine. Other findings: No large volume effusion. XR/XR chest 1V portable [id number] IMPRESSION: 1. Interstitial crowding versus developing pulmonary venous congestion. 2. Cardiac enlargement.
--- NOTE | 2021-07-13 07:39 | ECG_ITS ---
[facility] Test Date: 2021-07-13 Pat Name: Arnol Guzman Department: Room: Gender: Male Service Desk Technician: : 1970 Requested By: Quinn Tyson Order Number: [id number] Lebron MD: Crys Diggs M.D. Measurements Intervals Hayden Rate: 70 P: 88 DE: 191 QRS: 82 QRSD: 113 T: 72 QT: 419 QTc: 454 Interpretive Statements SINUS RHYTHM INCOMPLETE RIGHT BUNDLE BRANCH BLOCK [90+ ms QRS DURATION, TERMINAL R IN V1/V2, 40+ ms S IN I/aVL/V4/V5/V6] MODERATE ST DEPRESSION [0.05+ mV ST DEPRESSION] Compared to ECG 06/28/2021 02:24:11 ST (T wave) deviation now present Electronically Signed On 07-14-2021 20:36:17 FINAL INSPECTOR AND TESTER by Crys Diggs M.D. [id number]
--- NOTE | 2021-07-13 07:41 | ED_ITS ---
HPI - Chest Pain General: Chief Complaint: Chest Pain Stated Complaint: CHEST PAIN Time Seen by Provider: 07/13/21 07:30 History of Present Illness: HPI narrative: 51-year-old male presents with chest pain. States approximately 2 hours prior to arrival while at rest. Describes it as sharp and nonradiating. Denies any exertional pleuritic component. Denies any fever nausea or vomiting. Does have a history of CHF and is normally on 2 L by nasal cannula. Does report shortness of breath that is chronic for him but denies any new shortness of breath today with chest pain. Denies lower extremity pain or swelling. Review of Systems Narrative: - CONSTITUTIONAL: Denies weight loss, fever and chills. - HEENT: Denies changes in vision and hearing. - RESPIRATORY: As above - CV: As above - GI: Denies abdominal pain, nausea, vomiting and diarrhea. - : Denies dysuria and urinary frequency. - MSK: Denies myalgia and joint pain. - SKIN: Denies rash and pruritus. - NEUROLOGICAL: Denies headache, weakness, numbness and syncope. - PSYCHIATRIC: Denies suicidal ideation PFSH ED PFSH: Medical History (Updated 06/29/21 @ 00:00 by ) Anemia -has chronic iron deficiency anemia, baseline Hg is around 9-10 -stable H/H -was previously on iron supplementation CHF (congestive heart failure) -Echo (07/2019): EF=68%, normal diastolic function, no RWMA -on oral lasix -no acute exacerbation currently Decubitus ulcer limited to breakdown of skin (stage 2) Diabetes -NIDDM type II -A1c (11/2019): 8.2 -Accuchecks, ISS, hypoglycemia precautions -consistent carb diet -anticipate hyperglycemia with steroid use Gout Hyperlipemia, mixed Hypertension -VSS; continue to monitor -continue oral antihypertensives Morbid (severe) obesity due to excess calories OPAL (obstructive sleep apnea) -in the process of getting CPAP set up Pneumonia Psychiatric care Transient cerebral ischemia Surgical History History of adenoidectomy History of hernia repair History of tonsillectomy History of umbilical hernia repair Family History Mother Hypertension CAD (coronary artery disease) Stroke Social History Smoking and tobacco status: never smoked Second hand smoke exposure: Yes Alcohol intake: never Adopted: No Caregiver/support person: No Lives independently: Yes Household members: family and friend(s) Housing: Manufactured/Mobile home Marital status: Single Number of children: 0 Number of grandchildren: 0 Highest education level completed: 8th Grade service: No Current occupational status: disabled Pets and animals: No History of recent travel: No Leisure activites: other Leisure activities details: play card games Sexually active: No Current gender identity: Male Yolanda/Baptism: Other Special yolanda needs: No Agree to transfusion: Yes Financial difficulty paying for basics: Hard Physical Exam Narrative: EXAM NARRATIVE: - GENERAL: Obese, alert and oriented x 3. No acute distress. Well-nourished. - EYES: EOMI. Anicteric. - HENT: Atraumatic, no C-spine tenderness. Moist mucous membranes. No scleral icterus. No cervical lymphadenopathy. - LUNGS: Clear to auscultation bilaterally. No accessory muscle use. Equal lung sounds bilaterally. No respiratory distress. - CARDIOVASCULAR: Regular rate and rhythm. No murmur. No JVD. - ABDOMEN: Soft, non-tender and non-distended. Negative CVA tenderness bilaterally, no rebound or guarding, negative Damon sign. No palpable masses. - EXTREMITIES: No edema. Non-tender. - SKIN: No rashes or lesions. Warm. - NEUROLOGIC: No meningismus or focal neurological deficits. CN II-XII grossly intact. - PSYCHIATRIC: Cooperative. Appropriate mood and affect. Course Vital Signs: Vital signs: Vital Signs Temperature 98.2 F 07/13/21 07:39 Pulse Rate 69 07/13/21 09:41 Respiratory Rate 17 07/13/21 09:41 Blood Pressure 145/87 07/13/21 09:41 Pulse Oximetry 96 07/13/21 09:41 MDM - Chest Pain Lab Data: Labs: Lab Results 07/13/21 07/13/21 07/13/21 07:37 07:37 07:37 WBC 5.0 10^3/uL 10^3/ uL (4.0-10.0) RBC 4.09 10^6/uL L 10 ^6/uL (4.1-5.3) Hgb 9.1 g/dL L g/dL (11.7-16.6) Hct 34.2 % L % (42.0-52.0) MCV 83.6 fl fl (80-94) MCH 22.2 pg L pg (28.0-34.0) MCHC 26.6 g/dL L g/dL (30.0-36.0) RDW 19.7 % H % (12.1-15.1) Plt Count 266 10^3/cmm 10^3 /cmm (130-400) MPV 9.8 fL fL (7.4-10.4) Neut % (Auto) 74.0 % % Lymph % (Auto) 16.4 % % Posey % (Auto) 8.2 % % Eos % (Auto) 0.6 % % Baso % (Auto) 0.6 % % Neut # (Auto) 3.69 10^3/uL 10^3 /uL (1.8-7.7) Lymph # (Auto) 0.8 10^3/uL 10^3/ uL (0.8-4.8) Posey # (Auto) 0.4 10^3/uL 10^3/ uL (0.2-0.9) Eos # (Auto) 0.0 10^3/uL 10^3/ uL (0.0-0.8) Baso # (Auto) 0.0 10^3/uL 10^3/ uL (0.0-0.1) Nucleated RBC % (a uto) 0 % % Nucleated RBCs # 0.0 /100WBC /100W BC PT 16.60 SECONDS H S ECONDS (12.1-14.9) INR 1.30 H (0.8-1.2) APTT 32.5 SECONDS SECO NDS (23.9-36.7) D-Dimer 1.48 ug/mIFEU H u g/mIFEU (0-0.59) Sodium 143 mmol/L mmol/L (136-145) Potassium 3.9 mmol/L mmol/L (3.5-5.1) Chloride 101 mmol/L mmol/L (98-107) Carbon Dioxide 32 mmol/L H mmol/ L (22-29) Anion Gap 13.9 (5-19) BUN 12 mg/dL mg/dL (6-20) Creatinine 0.9 mg/dL mg/dL (0.7-1.2) GFR Calculation 89.7 mL/min L mL/ min (90-130) Glucose 122 mg/dL H mg/dL (65-115) Calculated Osmolal ity 297 mOsm/kg H mOs m/kg (285-295) Calcium 8.9 mg/dL mg/dL (8.5-10.5) Total Bilirubin 1.6 mg/dL H mg/dL (0.15-1.2) AST 14 U/L U/L (0-40) ALT 12 U/L U/L (0-41) Alkaline Phosphata se 211 IU/L H IU/L (40-130) Troponin T Baselin e Troponin T 120 Min [place] Troponin T NT-Pro-B Natriuret Pep 1992 pg/mL H pg/m L (0-125) Total Protein 7.2 g/dL g/dL (6.6-8.7) Albumin 3.8 g/dL g/dL (3.5-5.2) Globulin 3.4 g/dL g/dL (1.3-4.6) Lipase 35 U/L U/L (13-60) SARS-CoV-2 Ag (Rap id) 3 07/13/21 07/13/21 07/13/21 07:37 07:56 09:29 WBC RBC Hgb Hct MCV MCH MCHC RDW Plt Count MPV Neut % (Auto) Lymph % (Auto) Posey % (Auto) Eos % (Auto) Baso % (Auto) Neut # (Auto) Lymph # (Auto) Posey # (Auto) Eos # (Auto) Baso # (Auto) Nucleated RBC % (a uto) Nucleated RBCs # PT INR APTT D-Dimer Sodium Potassium Chloride Carbon Dioxide Anion Gap BUN Creatinine GFR Calculation Glucose Calculated Osmolal ity Calcium Total Bilirubin AST ALT Alkaline Phosphata se Troponin T Baselin e 32 ng/L H ng/L (0-15) Troponin T 120 Min [place] 29.30 ng/L H ng/L (0-15) Delta Troponin T -2.70 ABS# L ABS# (0-10) NT-Pro-B Natriuret Pep Total Protein Albumin Globulin Lipase SARS-CoV-2 Ag (Rap id) Negative (Negative) EKG Data^: EKG 1: Other EKG comments: Sinus rhythm at a rate of 70, incomplete right bundle branch block, no sign of acute ischemia or other acute abnormality. Discharge Plan Discharge Prescriptions: No Action (DME) oxygen-air delivery systems Device See Rx Instructions .ROUTE .MEDSUPPLY Qty: 1 RF: 0 albuterol sulfate 90 mcg/actuation HFA aerosol inhaler 2 puff inhalation QID PRN (Reason: Shortness Of Breath) RF: 0 atorvastatin [Lipitor] 80 mg Tablet 80 mg PO BEDTIME RF: 0 omeprazole 40 mg Capsule,Delayed Release(Dr/Ec) 40 mg PO QAM RF: 0 montelukast [Singulair] 10 mg Tablet 10 mg PO BEDTIME RF: 0 glipizide 10 mg Tablet Extended Release 24hr 10 mg PO BID RF: 0 aspirin 81 mg Tablet,Delayed Release (Dr/Ec) 81 mg PO QAM RF: 0 atenolol [Tenormin] 100 mg tablet 100 mg PO QAM RF: 0 Dulera 200-5 mcg/actuation HFA aerosol inhaler 2 puff INHALATION BID RF: 0 allopurinol 100 mg tablet 100 mg PO QAM RF: 0 lisinopril 5 mg tablet 5 mg PO QAM RF: 0 Janumet 50-1,000 mg tablet 1 tab PO BID RF: 0 furosemide 40 mg tablet 40 mg PO QAM RF: 0 folic acid 1 mg tablet 1 mg PO DAILY RF: 0 ferrous sulfate 325 mg (65 mg iron) tablet 325 mg PO BID RF: 0 Levemir FlexTouch U-100 Insuln 100 unit/mL (3 mL) insulin pen See Rx Instructions .ROUTE .COMPLEX RF: 0 tamsulosin 0.4 mg capsule 0.4 mg PO DAILY RF: 0 ziprasidone HCl 40 mg capsule 40 mg PO DAILY@17 RF: 0 sertraline 50 mg tablet 50 mg PO DAILY RF: 0 Coding Level of Care Code ED Telecommunications Field Technician for Tiffanieg Piyush
[2021-07-13 07:46] LABS: Basophils % 0.6 %; Eosinophils % 0.6 %; Hematocrit 34.2 % (42.0-52.0); Hemoglobin 9.1 g/dL (11.7-16.6); Lymphocytes # 0.8 10^3/uL (0.8-4.8); Lymphocytes % 16.4 %; Mean Corpuscular HGB Conc 26.6 g/dL (30.0-36.0); Mean Corpuscular Hemoglobin 22.2 pg (28.0-34.0); Mean Corpuscular Volume 83.6 fl (80-94); Mean Platelet Volume 9.8 fL (7.4-10.4); Monocytes # 0.4 10^3/uL (0.2-0.9); Monocytes % 8.2 %; Neutrophils # 3.69 10^3/uL (1.8-7.7); Nucleated Red Blood Cells % 0 %; Platelet Count 266 10^3/cmm (130-400); Red Blood Count 4.09 10^6/uL (4.1-5.3); Red Cell Distribution Width 19.7 % (12.1-15.1)
[2021-07-13 08:12] LABS: Troponin(5th) Baseline 32 ng/L (0-15)
[2021-07-13 08:19] LABS: Alanine Aminotransferase 12 U/L (0-41); Albumin Level 3.8 g/dL (3.5-5.2); Alkaline Phosphatase 211 IU/L (40-130); Aspartate Amino Transferase 14 U/L (0-40); Blood Urea Nitrogen 12 mg/dL (6-20); Calcium 8.9 mg/dL (8.5-10.5); Carbon Dioxide 32 mmol/L (22-29); Chloride 101 mmol/L (98-107); Globulin 3.4 g/dL (1.3-4.6); Glomerular Filtration Rate 89.7 mL/min (90-130); Glucose 122 mg/dL (65-115); Lipase 35 U/L (13-60); NT Pro B Type Natriuretic Pept 1992 pg/mL (0-125); Osmolality Calculated 297 mOsm/kg (285-295); Sodium 143 mmol/L (136-145); Total Bilirubin 1.6 mg/dL (0.15-1.2); Total Protein 7.2 g/dL (6.6-8.7)
[2021-07-13 08:20] LABS: Anion Gap 13.9 (5-19); Potassium 3.9 mmol/L (3.5-5.1)
[2021-07-13 08:26] LABS: Partial Thromboplastin Time 32.5 SECONDS (23.9-36.7)
[2021-07-13 08:28] LABS: D Dimer 1.48 ug/mIFEU (0-0.59)
[2021-07-13 08:39] LABS: SARS Covid-2 Antigen Negative (Negative)
--- NOTE | 2021-07-13 08:47 | CT_ITS ---
WS: [id number] CT CHEST ANGIOGRAPHY WITH REFORMATS HISTORY: PE TECHNIQUE: Contiguous axial images are obtained through the chest during arterial injection of intrav enous contrast. Images are reconstructed to evaluate the pulmonary arteries. MIP imaging also reviewe d. All CT scans at [facility] use at least one of these dose optimization techniques: automat ed exposure control; mA and/or kV adjustment per patient size (includes targeted exams where dose is matched to clinical indication); or iterative reconstruction. CONTRAST: Omnipaque 350; 180 mL IV. DLP: 1984.34 mGy.cm COMPARISON: 12/08/2019 This examination is significantly limited by patient's body habitus. Opacification of the central pul monary arteries demonstrates no large filling defects. Beyond the lobar and some of the segmental bra nches the opacification is limited. Pulmonary artery size is slightly enlarged as compared to the aor ta. Thoracic aorta appears normal size. No RIGHT heart strain. Very slight enlargement of the RIGHT h eart chambers. There is very mild haziness and groundglass attenuation bilaterally. Subpleural 4 mm nodules in the L EFT lower lobe. No significant mediastinal or hilar adenopathy is identified. There is extensive soft tissue edema and anasarca throughout the thorax. Artifact from patient's body habitus of the upper abdomen limits evaluation of the upper abdominal structures. CT/CT angio chest PE protcl [id number] IMPRESSION: 1. Quality of this examination is significantly compromised by the patient's b zhang habitus. 2. No central pulmonary embolus identified. Otherwise opacification of pulmona ry arteries is limited by body habitus and artifact. 3. Extensive soft tissue edema from anasarca. 4. No pneumonia. 5. Mild cardiomegaly.
[2021-07-13] MEDS: iohexol 350 mg/mL 100 mL Btl IV ×2 (09:33)
--- NOTE | 2021-07-13 09:39 | ECG_ITS ---
[facility] Test Date: 2021-07-13 Pat Name: Arnol Guzman Department: Room: Gender: Male Tower Hand: : 1970 Requested By: Quinn Tyson Order Number: [id number] Bernardino MD: Crys Diggs M.D. Measurements Intervals Bradley Rate: 69 P: 79 OR: 168 QRS: 88 QRSD: 101 T: 90 QT: 427 QTc: 460 Interpretive Statements SINUS RHYTHM INCOMPLETE RIGHT BUNDLE BRANCH BLOCK [90+ ms QRS DURATION, TERMINAL R IN V1/V2, 40+ ms S IN I/aVL/V4/V5/V6] Compared to ECG 07/13/2021 07:55:31 ST (T wave) deviation no longer present Electronically Signed On 07-14-2021 22:04:21 COMPUTER TRAINING SPECIALIST by Crys Diggs M.D. [id number]
[2021-07-13] MEDS: FUROsemide 10 mg/mL SDV 4mL 40 MG IVP ×2 (11:48→18:47)
--- NOTE | 2021-07-13 13:39 | ECG_ITS ---
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 Measurements Intervals Mcdonough Rate: 71 P: 95 ND: 184 QRS: 93 QRSD: 110 T: 91 QT: 405 QTc: 442 Interpretive Statements SINUS RHYTHM BORDERLINE RIGHT AXIS DEVIATION [QRS AXIS > 90] INCOMPLETE RIGHT BUNDLE BRANCH BLOCK [90+ ms QRS DURATION, TERMINAL R IN V1/V2, 40+ ms S IN I/aVL/V4/V5/V6] Compared to ECG 07/13/2021 09:34:49 No significant changes Electronically Signed On 07-14-2021 22:00:56 REGIONAL FLATBED TRUCK DRIVER by Crys Diggs M.D. [id number]
--- NOTE | 2021-07-13 14:03 | USCV_ITS ---
Arnol uGzman Age: 51 Gender: M : 1970 Exam Date: 07/13/2021 15:22 Ordering Phys: Marcelo Jimenez MD Technologist: Alberta Sigala Exam Location: [facility] [place] Indication: Shortness of breath BP: 147 / 74 HR: 66 Rhythm: Sinus Technical Quality: Adequate, Poor because of body habitus MEASUREMENTS (Male / Female) Normal Values 2D ECHO LV Diastolic Diameter PLAX 5.0 cm 4.2 - 5.9 / 3.9 - 5.3 cm LV Systolic Diameter PLAX 3.4 cm IVS Diastolic Thickness 1.2 cm 0.6 - 1.0 / 0.6 - 0.9 cm IVS Systolic Thickness 2.0 cm LVPW Diastolic Thickness 1.5 cm 0.6 - 1.0 / 0.6 - 0.9 cm LVPW Systolic Thickness 1.7 cm LVOT Diameter 2.0 cm LV Ejection Fraction 2D Teich 59.3 % LV Ejection Fraction MOD 2C 61.7 % LV Ejection Fraction 2C AL 60.2 % LA Diameter 4.0 cm LA Width 3.9 cm LA Height 5.0 cm RA Width 4.0 cm RA Height 4.6 cm Aorta at Sinotubular Diameter 2.5 cm M-MODE Aortic Annulus Diameter 3.0 cm LA Ao Ratio MM 1.4 MV E Point Septal Separation 1.1 cm DOPPLER AV Peak Velocity 158.0 cm/s LVOT Peak Velocity 132.0 cm/s AV Area Cont Eq vti 2.6 cm squared AV Area Cont Eq pk 2.6 cm squared MV Peak Velocity 198.0 cm/s MV Area PHT 2.8 cm squared Mitral E to A Ratio 1.6 MV E' Velocity 72.0 cm/s Mitral E to MV E' Ratio 19.1 Mitral E to LV E' Lateral Ratio 17.4 Mitral E to LV E' Septal Ratio 21.6 TR Peak Velocity 309.9 cm/s TR Peak Gradient 38.4 mmHg TR Mean Velocity 280.2 cm/s TR Mean Gradient 33.4 mmHg TR Velocity Time Integral 124.9 cm TV Peak E Velocity 69.0 cm/s PV Peak Velocity 103.0 cm/s RV Acceleration Time 0.1 s RV Ejection Time 0.3 s RV AcT/ET 0.3 FINDINGS Left Ventricle Normal left ventricular size, systolic function with no regional wall motion abnormalities. Left ventricular ejection fraction is estimated at 59 %. Grade II diastolic dysfunction, moderately elevated filling pressures. Flattened septum in systole consistent with right ventricle pressure overload. Right Ventricle Mildly dilated right ventricular size and mildly decreased systolic function. Right ventricular systolic pressure 53 mmHg. Right Atrium Normal right atrial size. Left Atrium Mildly increased left atrial size. Mitral Valve Mitral valve not well visualized. No mitral valve stenosis. No mitral valve regurgitation. Aortic Valve Aortic valve not well visualized. Possibly trileaflet aortic valve. No aortic valve stenosis. No aortic valve regurgitation. Tricuspid Valve Structurally normal tricuspid valve.Trace tricuspid valve regurgitation. Pulmonic Valve Pulmonic valve not well visualized. Pericardium No pericardial effusion. Aorta Aorta not well visualized. CONCLUSIONS 1. This is a technically difficult study. Ultrasound enhancing agent Optison was used per protocol. 2. Normal left ventricular size, systolic function with no regional wall motion abnormalities. Left ventricular ejection fraction is estimated at 59 %. Grade II diastolic dysfunction, moderately elevated filling pressures. Flattened septum in systole consistent with right ventricle pressure overload. 3. Mildly dilated right ventricular size and mildly decreased systolic function. 4. Moderate pulmonary hypertension with pulmonary pressure estimated at 53 mmHg. 5. When compared to echocardiogram report dated 07/14/2019, RV function has decreased and there is pulmonary hypertension now. Crys Diggs MD (Electronically Signed) Final Date: 13 July 2021 18:57 S
--- NOTE | 2021-07-13 14:06 | P.HP_ITS ---
Providers/Chief Complaint Primary Care Provider: Stewart Rosario MD Chief Complaint: CHEST PAIN History of Present Illness 51 year old male with past medical history of , hypertension , diabetes , HFpEF, CVA, depression, gout , obstructive sleep apnea , morbid obesity , came in with chief complaint of worsening shortness of breath, orthopnea, substernal chest pain. According to the patient his shortness of breath has worsened in the last week, he is complaining of shortness of breath with minimal exertion, he gets short of breath even walking to the bathroom. He was also complaining of substernal chest pain at rest 6 out of 7 in intensity,sharp, non radiating,which started today in the morning, was relieved with 3 aspirin given to him while on way to ER. He denies any fever ,cough , runny nose, headache, palpitation, diaphoresis. Upon arrival in the ER he was worked up for above-mentioned complaint. Pertinent imaging studies: CTA chest: No acute pulmonary embolism, extensive soft tissue edema and anasarca throughout the thorax. X-ray chest:Interstitial crowding versus developing pulmonary venous congestion. EKG: SR, incomplete right bundle branch block Pertinent labs: WBC 5 H&H 9.1 34.2,PLT:266, serum sodium:143, serum potassium 3.9 BUN and serum creatinine:12/0.9, Troponin trend without significant delta, proBNP:1992 , Rapid Covid antigen negative. Patient received Lasix 40 IV one-time dose in the ER. Review of Systems Const: Denies: fever(s), chills, change in appetite or diaphoresis Card: Denies: palpitations or swelling of feet/ankles Resp: Denies: productive cough, wheezing or pain on inspiration GI: Denies: abdominal pain, nausea, vomiting, diarrhea or constipation : Denies: flank pain or difficulty urinating Musc: Denies: back pain Neuro: Denies: headache(s) or confusion Medications/Allergies Home Medications Medication Instructions Recorded Confirmed Last Taken Type atorvastatin [Lipitor] 80 mg PO BEDTIME 07/14/19 07/13/21 02/15/21 History montelukast [Singulair] 10 mg PO BEDTIME 07/14/19 07/13/21 02/15/21 History omeprazole 40 mg PO QAM 07/14/19 07/13/21 02/16/21 History glipizide 10 mg PO BID 01/21/20 07/13/21 02/16/21 07:30 History oxygen-air delivery systems #1 03/11/20 07/13/21 Unknown History albuterol sulfate 90 mcg/actuation 2 puff INHALATION QID PRN 05/19/20 07/13/21 Unknown History aerosol inhaler aspirin 81 mg PO QAM 09/13/20 07/13/21 02/16/21 07:30 History Dulera 2 puff INHALATION BID 11/24/20 07/13/21 02/16/21 History atenolol [Tenormin] 100 mg PO QAM 11/24/20 07/13/21 02/16/21 07:30 History Janumet 1 tab PO BID 02/16/21 07/13/21 02/16/21 07:30 History allopurinol 100 mg PO QAM 02/16/21 07/13/21 02/16/21 07:30 History lisinopril 5 mg PO QAM 02/16/21 07/13/21 02/16/21 History folic acid 1 mg PO DAILY 06/20/21 07/13/21 Unknown History furosemide 40 mg PO QAM 06/20/21 07/13/21 Unknown History ferrous sulfate 325 mg PO BID 06/22/21 07/13/21 Unknown History insulin detemir U-100 [Levemir See Rx Instructions .ROUTE .COMPLEX 07/13/21 07/13/21 Unknown History FlexTouch U-100 Insuln] sertraline 50 mg PO DAILY 07/13/21 07/13/21 Unknown History tamsulosin 0.4 mg PO DAILY 07/13/21 07/13/21 Unknown History ziprasidone HCl 40 mg PO DAILY@17 07/13/21 07/13/21 Unknown History Allergies Allergy/AdvReac Type Severity Reaction Status Date / Time Penicillins Allergy ALGY-Hives Verified 07/13/21 09:25 diltiazem [From Cardizem] AdvReac ADR/ALGY-Pa Verified 07/13/21 09:25 lpitations PFSH Acute PFSH: Medical History (Updated 07/13/21 @ 14:26 by Marcelo Jimenez MD) Anemia -has chronic iron deficiency anemia, baseline Hg is around 9-10 -stable H/H -was previously on iron supplementation CHF (congestive heart failure) -Echo (07/2019): EF=68%, normal diastolic function, no RWMA -on oral lasix -no acute exacerbation currently Decubitus ulcer limited to breakdown of skin (stage 2) Diabetes -NIDDM type II -A1c (11/2019): 8.2 -Accuchecks, ISS, hypoglycemia precautions -consistent carb diet -anticipate hyperglycemia with steroid use Gout Hyperlipemia, mixed Hypertension -VSS; continue to monitor -continue oral antihypertensives Morbid (severe) obesity due to excess calories OPAL (obstructive sleep apnea) -in the process of getting CPAP set up Pneumonia Psychiatric care Transient cerebral ischemia Surgical History History of adenoidectomy History of hernia repair History of tonsillectomy History of umbilical hernia repair Family History Mother Hypertension CAD (coronary artery disease) Stroke Social History Smoking and tobacco status: never smoked Second hand smoke exposure: Yes Alcohol intake: never Adopted: No Caregiver/support person: No Lives independently: Yes Household members: family and friend(s) Housing: Manufactured/Mobile home Marital status: Single Number of children: 0 Number of grandchildren: 0 Highest education level completed: 8th Grade service: No Current occupational status: disabled Pets and animals: No History of recent travel: No Leisure activites: other Leisure activities details: play card games Sexually active: No Current gender identity: Male Yolanda/Yazdanism: Other Special yolanda needs: No Agree to transfusion: Yes Financial difficulty paying for basics: Hard Vitals/I&O/Wt Last Vital Signs Temp 98.2 F 07/13/21 07:39 Pulse 67 07/13/21 11:03 Resp 18 07/13/21 11:03 BP 145/87 07/13/21 11:03 Pulse Ox 94 07/13/21 11:03 Physical Exam Const: COMMON NORMALS: patient oriented x3 HENMT: COMMON NORMALS: normocephalic and atraumatic EXTERNAL EAR: Yes external ears normal Eye: COMMON NORMALS: no scleral icterus GENERAL EYE: appearance normal, both eyes and all related structures Resp: COMMON NORMALS: clear to auscultation bilaterally AUSCULTATION: clear to auscultation bilaterally Cardio: COMMON NORMALS: regular rate, regular rhythm, S1 normal heart sound present, S2 normal heart sound present, No gallops present (Cardio), No murmurs present (Cardio), No rub (Cardio) and Peripheral pulses 2+ throughout RATE: regular rate RHYTHM: regular rhythm HEART SOUNDS: S1 normal heart sound present and S2 normal heart sound present PERIPHERAL PULSES: Peripheral pulses 2+ throughout GI: COMMON NORMALS: Normal to inspection, nondistended, normoactive bowel estefania nds present, Soft to palpation, non-tender, No hepatosplenomegaly present and no masses AUSCULTATION: Yes normoactive bowel sounds PALPATION: Yes Soft to palpation and Yes No hepatosplenomegaly present RECTAL EXAM: Yes deferred Extremity: COMMON NORMALS: no clubbing, cyanosis or edema and no pedal edema Neuro: COMMON NORMALS: patient oriented x3 Data : 07/13/21 07:37 07/13/21 07:37 A&P Assessment and plan (1) CHF (congestive heart failure): Status: Acute Qualifiers: Heart failure chronicity: chronic Heart failure type: diastolic Qualified Code(s): I50.32 - Chronic diastolic (congestive) heart failure (2) Diabetes: Status: Acute Qualifiers: Diabetes mellitus type: type 2 Diabetes mellitus intermodal dispatcher insulin use: without intermodal dispatcher use Diabetes mellitus complication status: with other spe cified complication Qualified Code(s): E11.69 - Type 2 diabetes mellitus with other specified complication (3) Chest pain: Status: Acute (4) Gout: Status: Acute (5) Hypertension: Status: Acute Qualifiers: Hypertension type: essential hypertension Qualified Code(s): I10 - Essential (primary) hypertension (6) Morbid (severe) obesity due to excess calories: Status: Acute (7) OPAL (obstructive sleep apnea): Status: Acute Additional A&P Information 51 year old male with past medical history of , hypertension , diabetes , HFpEF, CVA, depression, gout , obstructive sleep apnea , morbid obesity , came in with chief complaint of worsening shortness of breath, orthopnea, substernal chest pain. According to the patient his shortness of breath has worsened in the last week, he is complaining of shortness of breath with minimal exertion, he gets short of breath even walking to the bathroom.He was also complaining of substernal chest pain at rest 6 out of 7 in intensity,sharp, non radiating,which started today in the morning, was relieved with 3 aspirin given to him while on way to ER. He denies any fever ,cough , runny nose, headache, palpitation, diaphoresis. #Decompensated heart failure with preserved ejection fraction: Patient presented with shortness of breath orthopnea, has anasarca, elevated proBNP. Repeat 2D echo: Lasix 40 mg IV twice daily Intake output chart Daily weight k>4, mg>2 Telemetry monitoring #Chest pain: Likely noncardiac: Based on its clinical characteristics. No acute EKG changes, troponin trend negative. But given the patient significant risk factors, hypertension diabetes dyslipidemia obesity. Will follow with 2D echo. Aspirin 81 mg daily S/L Nitro as needed. #Diabetes; SSI,FSG, carbohydrate consistent diet #Hypertension: Continue home medications. #H/O CVA: Continue Aspirin # Gout : Continue Allopurinol # OPAL: CPAP At night # Depression :Continue Home medications Code Status :Full Code DVT PPX: On Lovenox Disposition: Discharge to home Attestations Medical Necessity Statement*: Patient is to be in hospital for management of decompensated heart failure. Anticipated length of stay greater than 2 midnights. Coding Level of Care Code Acute Dog Warden for [facility] Piyush Diagnoses CHF (congestive heart failure) I50.32 Heart failure chronicity: chronic Heart failure type: diastolic Diabetes E11.69 Diabetes mellitus type: type 2 Diabetes mellitus intermodal dispatcher insulin use: without intermodal dispatcher use Diabetes mellitus complication status: with other specified complication Chest pain R07.9 Gout M10.9 Hypertension I10 Hypertension type: essential hypertension Morbid (severe) obesity due to excess calories E66.01 OPAL (obstructive sleep apnea) G47.33
[2021-07-13 14:23] LABS: Troponin 5 6HR 30.86 ng/L (0-15)
[2021-07-13 14:31] LABS: Troponin 5 6HR Delta -1.14 ng/L (0-12)
[2021-07-13] MEDS: perflutren protein-a microsphr 0.22 mg/mL SDV 3 mL IV (15:58)
[2021-07-13 17:26] LABS: Glucose Point of Care 143 mg/dL (70-110)
--- NOTE | 2021-07-13 19:40 | PC.NURSE ---
Shift report received from Silke JUDGE. Patient in bed/sleeping. No s/s of pain or discomfort. O2 3 1/2L NC. IV patent/SL. No needs noted at this time.
--- NOTE | 2021-07-13 20:05 | PC.NURSE ---
i reported low temp 97.5 to nurse
[2021-07-13] MEDS: atorvastatin 40 mg Tablet 80 MG PO (20:28)
[2021-07-13] MEDS: acetaminophen 325 mg Tablet 650 MG PO (20:28)
[2021-07-13] MEDS: montelukast sodium 10 mg Tablet PO (20:28)
--- NOTE | 2021-07-13 20:46 | PC.NURSE ---
Patient does have redness present: groin/lower abdomen and upper inner thighs.
[2021-07-13] MEDS: insulin lispro 100 unit/1 mL SUBCUT (21:07)
[2021-07-13 21:18] LABS: Glucose Point of Care 193 mg/dL (70-110)
[2021-07-14 04:00] VITALS: BP 156/78; PULSE 99; RESP 18; TEMP 36.6; O2SAT 100
[2021-07-14 06:45] LABS: Basophils % 0.2 %; Eosinophils # 0.1 10^3/uL (0.0-0.8); Hematocrit 32.3 % (42.0-52.0); Hemoglobin 8.5 g/dL (11.7-16.6); Lymphocytes # 0.7 10^3/uL (0.8-4.8); Lymphocytes % 14.1 %; Mean Corpuscular HGB Conc 26.3 g/dL (30.0-36.0); Mean Corpuscular Hemoglobin 22.4 pg (28.0-34.0); Mean Platelet Volume 9.8 fL (7.4-10.4); Monocytes # 0.4 10^3/uL (0.2-0.9); Monocytes % 8.8 %; Neutrophils % 75.7 %; Nucleated Red Blood Cells % 0 %; Platelet Count 237 10^3/cmm (130-400); Red Cell Distribution Width 19.9 % (12.1-15.1); White Blood Count 4.9 10^3/uL (4.0-10.0)
[2021-07-14 06:45] LABS: Glucose Point of Care 141 mg/dL (70-110)
[2021-07-14] MEDS: allopurinol 100 mg Tablet PO (06:46)
[2021-07-14] MEDS: lisinopril 5 mg Tablet PO (06:46)
[2021-07-14] MEDS: aspirin 81 mg EC Tablet PO (06:46)
[2021-07-14] MEDS: atenolol 50 mg Tablet 100 MG PO (06:46)
[2021-07-14] MEDS: pantoprazole DR 40 mg Tablet PO (06:46)
[2021-07-14 06:55] LABS: Anion Gap 12.6 (5-19); Blood Urea Nitrogen 12 mg/dL (6-20); Calcium 9.1 mg/dL (8.5-10.5); Carbon Dioxide 35 mmol/L (22-29); Chloride 102 mmol/L (98-107); Glomerular Filtration Rate 89.7 mL/min (90-130); Glucose 139 mg/dL (65-115); Magnesium 1.7 mg/dL (1.7-2.3); Osmolality Calculated 304 mOsm/kg (285-295); Potassium 3.6 mmol/L (3.5-5.1); Sodium 146 mmol/L (136-145)
--- NOTE | 2021-07-14 06:57 | PC.NURSE ---
Had to repull morning medications as the cup accidently was dropped on floor.
[2021-07-14 07:41] VITALS: BP 178/75; PULSE 65; RESP 18; TEMP 36.6; O2SAT 93
[2021-07-14] MEDS: FUROsemide 10 mg/mL SDV 4mL 40 MG IVP ×2 (08:50→18:01)
[2021-07-14] MEDS: sertraline 50 mg Tablet PO (08:50)
[2021-07-14] MEDS: tamsulosin 0.4 mg Capsule PO (08:50)
[2021-07-14 11:16] LABS: Glucose Point of Care 167 mg/dL (70-110)
[2021-07-14 11:19] VITALS: BP 147/78; PULSE 68; RESP 17; TEMP 36.5; O2SAT 98
[2021-07-14 15:33] VITALS: PULSE 81; O2SAT 96
[2021-07-14 15:40] VITALS: BP 139/74; PULSE 82; RESP 17; TEMP 36.9; O2SAT 96
[2021-07-14 17:09] LABS: Glucose Point of Care 154 mg/dL (70-110)
--- NOTE | 2021-07-14 18:54 | P.PN_ITS ---
Subjective Subjective: Interval history: Patient is still complains of shortness of breath,other than that he denies any chest pain. His other vitals and labs have been reviewed. Medications: Reviewed: Yes Vitals/I&O/Wt Last Vital Signs Temp 98.4 F 07/14/21 15:40 Pulse 82 07/14/21 15:40 Resp 17 07/14/21 15:40 BP 139/74 07/14/21 15:40 Pulse Ox 96 07/14/21 15:40 07/14/21 07/14/21 07/14/21 06:59 14:59 22:59 Intake Total 240 / 240 240 / 480 Output Total Balance - 240 / 240 240 / 480 Physical Exam Const: COMMON NORMALS: patient oriented x3 HENMT: COMMON NORMALS: normocephalic and atraumatic HEAD & SCALP: normocephalic and atraumatic Eye: COMMON NORMALS: no scleral icterus GENERAL EYE: appearance normal, bot h eyes and all related structures Resp: COMMON NORMALS: clear to auscultation bilaterally AUSCULTATION: clear to auscultation bilaterally Cardio: COMMON NORMALS: regular rate, regular rhythm, S1 normal heart sound present, S2 normal heart sound present, No gallops present (Cardio), No murmurs present (Cardio), No rub (Cardio) and Peripheral pulses 2+ throughout RATE: regular rate RHYTHM: regular rhythm HEART SOUNDS: S1 normal heart sound present and S2 normal heart sound present PERIPHERAL PULSES: Peripheral pulses 2+ throughout GI: COMMON NORMALS: Normal to inspection, nondistended, normoactive bowel sounds present, Soft to palpation, non-tender, No hepatosplenomegaly present and no masses AUSCULTATION: Yes normoactive bowel sounds PALPATION: Yes Soft to palpation and Yes No hepatosplenomegaly present RECTAL EXAM: Yes deferred Extremity: COMMON NORMALS: no clubbing, cyanosis or edema and no pedal edema Neuro: COMMON NORMALS: patient oriented x3 Data : 07/14/21 05:19 07/14/21 05:19 A&P Assessment and plan (1) CHF (congestive heart failure): Status: Acute Qualifiers: Heart failure chronicity: chronic Heart failure type: diastolic Qualified Code(s): I50.32 - Chronic diastolic (congestive) heart failure (2) Diabetes: Status: Acute Qualifiers: Diabetes mellitus type: type 2 Diabetes mellitus assisted insulin use: without medical office rep use Diabetes mellitus complication status: with other specified complication Qualified Code(s): E11.69 - Type 2 diabetes mellitus with other specified complication (3) Chest pain: Status: Acute (4) Gout: Status: Acute (5) Hypertension: Status: Acute Qualifiers: Hypertension type: essential hypertension Qualified Code(s): I10 - Essential (primary) hypertension (6) Morbid (severe) obesity due to excess calories: Status: Acute (7) OPAL (obstructive sleep apnea): Status: Acute Additional A&P Information 51 year old male with past medical history of , hypertension , diabetes , HFpEF, CVA, depression, gout , obstructive sleep apnea , morbid obesity , came in with chief complaint of worsening shortness of breath, orthopnea, substernal chest pain. According to the patient his shortness of breath has worsened in the last week, he is complaining of shortness of breath with minimal exertion, he gets short of breath even walking to the bathroom.He was also complaining of substernal chest pain at rest 6 out of 7 in intensity,sharp, non radiating,which started today in the morning, was relieved with 3 aspirin given to him while on way to ER. He denies any fever ,cough , runny nose, headache, palpitation, diaphoresis. #Decompensated heart failure with preserved ejection fraction: Patient presented with shortness of breath orthopnea, has anasarca, elevated proBNP. 2D echo: Normal LV size and systolic function, no RWMA, EF 59%, grade 2 diastolic dysfunction,moderately elevated filling pressures. Flattened septum in systole consistent with right ventricle pressure overload. Mildly dilated right ventricular size and mildly decreased systolic function. Moderate pulmonary hypertension with pulmonary pressure estimated at 53 mmHg. Lasix 40 mg IV twice daily Intake output chart Daily weight k>4, mg>2 Telemetry monitoring #Moderate pulmonary hypertension : Likely secondary to OPAL/OHS: Pulmonary follow-up as an outpatient #Chest pain: Likely noncardiac: Based on its clinical characteristics. No acute EKG changes, troponin trend negative. But given the patient significant risk factors, hypertension diabetes dyslipidemia obesity. Will follow with 2D echo. Aspirin 81 mg daily S/L Nitro as needed. #Diabetes; SSI,FSG, carbohydrate consistent diet #Hypertension: Continue home medications. #H/O CVA: Continue Aspirin # Gout : Continue Allopurinol # OPAL: CPAP At night # Depression :Continue Home medications Code Status :Full Code DVT PPX: On Lovenox Disposition: Discharge to home Attestations Medical Necessity Statement*: Patient needs to be in hospital for management of heart failure. Time Spent in Patient Care: Greater than 35 minutes (>than 50% of time spent in counselling and/or direct pt care on unit) . 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
[2021-07-14 20:00] VITALS: BP 141/66; PULSE 80; RESP 22; TEMP 36.8; O2SAT 96
[2021-07-14] MEDS: atorvastatin 40 mg Tablet 80 MG PO (20:57)
[2021-07-14] MEDS: montelukast sodium 10 mg Tablet PO (20:57)
[2021-07-14] MEDS: dextrose 5% 1,000 ML 50 ML IV (21:00)
[2021-07-14 21:08] LABS: Glucose Point of Care 186 mg/dL (70-110)
[2021-07-14] MEDS: insulin lispro 100 unit/1 mL SUBCUT (21:08)
[2021-07-15] VITALS (8 sets, daily range): BP systolic 142–148; BP diastolic 67–86; PULSE 66–87; RESP 16–18; TEMP 36.6–37; O2SAT 90–94
[2021-07-15] MEDS: pantoprazole DR 40 mg Tablet PO (06:01)
[2021-07-15] MEDS: allopurinol 100 mg Tablet PO (06:01)
[2021-07-15] MEDS: aspirin 81 mg EC Tablet PO (06:01)
[2021-07-15] MEDS: lisinopril 5 mg Tablet PO (06:01)
[2021-07-15] MEDS: atenolol 50 mg Tablet 100 MG PO (06:02)
[2021-07-15 06:58] LABS: Basophils % 0.4 %; Eosinophils # 0.1 10^3/uL (0.0-0.8); Eosinophils % 1.3 %; Hematocrit 32.5 % (42.0-52.0); Hemoglobin 8.5 g/dL (11.7-16.6); Lymphocytes # 0.9 10^3/uL (0.8-4.8); Lymphocytes % 17.7 %; Mean Corpuscular HGB Conc 26.2 g/dL (30.0-36.0); Mean Corpuscular Hemoglobin 22.1 pg (28.0-34.0); Mean Corpuscular Volume 84.4 fl (80-94); Monocytes # 0.4 10^3/uL (0.2-0.9); Monocytes % 9.2 %; Neutrophils # 3.42 10^3/uL (1.8-7.7); Neutrophils % 71.2 %; Nucleated Red Blood Cells % 0 %; Platelet Count 242 10^3/cmm (130-400); Red Blood Count 3.85 10^6/uL (4.1-5.3); Red Cell Distribution Width 19.5 % (12.1-15.1); White Blood Count 4.8 10^3/uL (4.0-10.0)
[2021-07-15 07:10] LABS: Anion Gap 16.5 (5-19); Blood Urea Nitrogen 12 mg/dL (6-20); Calcium 9.5 mg/dL (8.5-10.5); Carbon Dioxide 30 mmol/L (22-29); Chloride 101 mmol/L (98-107); Glomerular Filtration Rate 102.7 mL/min (90-130); Glucose 119 mg/dL (65-115); Osmolality Calculated 299 mOsm/kg (285-295); Potassium 3.5 mmol/L (3.5-5.1); Sodium 144 mmol/L (136-145)
[2021-07-15 07:45] LABS: Glucose Point of Care 147 mg/dL (70-110)
[2021-07-15] MEDS: sertraline 50 mg Tablet PO (08:18)
[2021-07-15] MEDS: FUROsemide 10 mg/mL SDV 4mL 40 MG IVP (08:18)
[2021-07-15] MEDS: tamsulosin 0.4 mg Capsule PO (08:18)
[2021-07-15 11:05] LABS: Glucose Point of Care 263 mg/dL (70-110)
--- NOTE | 2021-07-15 11:31 | P.DS_ITS ---
Discharge Providers Date of Admission: 07/13/21 10:55 Date of Discharge: July 15, 2021 Attending Provider at Admission: Marcelo Jimenez MD Attending Provider at Discharge: Marcelo Jimenez MD Primary Care Provider: Stewart Rosario MD Diagnoses at Discharge Discharge Diagnosis (1) CHF (congestive heart failure): Status: Acute Permanent problem details: -Echo (07/2019): EF=68%, normal diastolic function, no RWMA -on oral lasix -no acute exacerbation currently Qualifiers: Heart failure chronicity: chronic Heart failure type: diastolic Qualified Code(s): I50.32 - Chronic diastolic (congestive) heart failure (2) Diabetes: Status: Acute Permanent problem details: -NIDDM type II -A1c (11/2019): 8.2 -Accuchecks, ISS, hypoglycemia precautions -consistent carb diet -anticipate hyperglycemia with steroid use Qualifiers: Diabetes mellitus complication status: with other specified complication 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 mellitus 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 insulin use: without shelter use Diabetes mellitus type: type 2 Qualified Code(s): E11.69 - Type 2 diabetes mellitus with other specified complication (3) Chest pain: Status: Acute (4) Gout: Status: Acute (5) Hypertension: Status: Acute Permanent problem details: -VSS; continue to monitor -continue oral antihypertensives Qualifiers: Hypertension type: essential hypertension Qualified Code(s): I10 - Essential (primary) hypertension (6) Morbid (severe) obesity due to excess calories: Status: Acute (7) OPLA (obstructive sleep apnea): Status: Acute Permanent problem details: -in the process of getting CPAP set up Reason for Visit Reason for Visit: CHEST PAIN Hospital Course Hospital Course past medical history of , hypertension , diabetes , HFpEF, CVA, depression, gout , obstructive sleep apnea , morbid obesity , came in with chief complaint of worsening shortness of breath, orthopnea, substernal chest pain. According to the patient his shortness of breath has worsened in the last week, he is complaining of shortness of breath with minimal exertion, he gets short of breath even walking to the bathroom. He was also complaining of substernal chest pain with admission. He was admitted for the management of decompensated heart failure with preserved ejection fraction. He was kept on IV diuresis. 2D echo done during the hospital stay: Showed: Normal LV size and systolic function, no RWMA, EF 59%, grade 2 diastolic dysfunction,moderately elevated filling pressures. Flattened septum in systole consistent with right ventricle pressure overload. Mildly dilated right ventricular size and mildly decreased systolic function. Moderate pulmonary hypertension with pulmonary pressure estimated at 53 mmHg. He responded well to IV diuresis, shortness of breath had improved a lot at the time of discharge, at the time of discharge he was discharged on p.o. Lasix 40 mg twice daily. Chest pain is likely noncardiac: There was no acute EKG changes troponin trend was negative, patient did not complain of any chest pain during the hospital stay. He will follow pulmonary medicine as well as cardiology as an outpatient, for work-up of his moderate pulmonary hypertension likely secondary to OPAL/OHS.# Diabetes; SSI,FSG, carbohydrate consistent diet. Hypertension: home medications were continued. H/O CVA: Continue Aspirin Gout : Continue Allopurinol Depression :Continue Home medications. Patient responded well to medical management and is being discharged in stable condition to home. Physical Exam Const: COMMON NORMALS: patient oriented x3 HENMT: COMMON NORMALS: normocephalic and atraumatic HEAD & SCALP: normocephalic and atraumatic Eye: COMMON NORMALS: no scleral icterus GENERAL EYE: appearance normal, both eyes and all related structures Resp: COMMON NORMALS: clear to auscultation bilaterally AUSCULTATION: clear to auscultation bilaterally Cardio: COMMON NORMALS: regular rate, regular rhythm, S1 normal heart sound present, S2 normal heart sound present, No gallops present (Cardio), No murmurs present (Cardio), No rub (Cardio) and Peripheral pulses 2+ throughout RATE: regular rate RHYTHM: regular rhythm HEART SOUNDS: S1 normal heart sound p resent and S2 normal heart sound present PERIPHERAL PULSES: Peripheral pulses 2+ throughout GI: COMMON NORMALS: Normal to inspection, nondistended, normoactive bowel sounds present, Soft to palpation, non-tender, No hepatosplenomegaly present and no masses AUSCULTATION: Yes normoactive bowel sounds PALPATION: Yes Soft to palpation and Yes No hepatosplenomegaly present RECTAL EXAM: Yes deferred Extremity: COMMON NORMALS: no clubbing, cyanosis or edema and no pedal edema Neuro: COMMON NORMALS: patient oriented x3 Discharge Data Data Completed and Pending: Completed Studies During Hospitalization Category Date Time Status CT angio chest PE protcl [id number] Urge nt Cat Scan 07/13/21 08:47 Completed XR chest 1V camila ble [id number] Stat Exams 07/13/21 07:35 Completed CV. echo wo/w con trast [id number] Routin e Ultrasound 07/13/21 14:03 Completed Pending at discharge Category Date Time Status Basic Metabolic P nik AM LABS Lab 07/16/21 04:00 Ordered Complete Blood Co unt w/Auto AM LABS Lab 07/16/21 04:00 Ordered Labs from last 24 hours 07/15/21 07/15/21 07/15/21 10:47 06:37 05:46 WBC RBC Hgb Hct MCV MCH MCHC RDW Plt Count MPV Neut % (Auto) Lymph % (Auto) [place] % (Auto) Eos % (Auto) Baso % (Auto) Neut # (Auto) Lymph # (Auto) [place] # (Auto) Eos # (Auto) Baso # (Auto) Nucleated RBC % (a uto) Nucleated RBCs # Sodium 144 Potassium 3.5 Chloride 101 Carbon Dioxide 30 H Anion Gap 16.5 BUN 12 Creatinine 0.8 GFR Calculation 102.7 Glucose 119 H POC Glucose 263 H 147 H Calculated Osmolal ity 299 H Calcium 9.5 07/15/21 07/14/21 07/14/21 05:46 21:00 16:56 WBC 4.8 RBC 3.85 L Hgb 8.5 L Hct 32.5 L MCV 84.4 MCH 22.1 L MCHC 26.2 L RDW 19.5 H Plt Count 242 MPV 10.0 Neut % (Auto) 71.2 Lymph % (Auto) 17.7 [place] % (Auto) 9.2 Eos % (Auto) 1.3 Baso % (Auto) 0.4 Neut # (Auto) 3.42 Lymph # (Auto) 0.9 [place] # (Auto) 0.4 Eos # (Auto) 0.1 Baso # (Auto) 0.0 Nucleated RBC % (a uto) 0 Nucleated RBCs # 0.0 Sodium Potassium Chloride Carbon Dioxide Anion Gap BUN Creatinine GFR Calculation Glucose POC Glucose 186 H 154 H Calculated Osmolal ity Calcium Vitals: Last Vital Signs Temp 98.1 F 07/15/21 07:37 Pulse 86 07/15/21 07:37 Resp 16 07/15/21 07:37 BP 142/76 07/15/21 07:37 Pulse Ox 92 07/15/21 08:08 Discharge Plan Discharge Patient Disposition: Home Condition: Stable Prescriptions: New Klor-Con M20 20 mEq tablet,ER particles/crystals 20 meq PO DAILY 30 Days RF: 1 cyclobenzaprine 5 mg tablet 5 mg PO BID PRN (Reason: muscle spasm) Qty: 10 RF: 0 Voltaren Arthritis Pain 1 % gel 2 g topical QID Qty: 100 RF: 0 Tylenol 325 mg capsule 325 mg PO Q6H PRN (Reason: pain) Qty: 14 RF: 0 Continued (DME) oxygen-air delivery systems Device See Rx Instructions .ROUTE .MEDSUPPLY Qty: 1 RF: 0 albuterol sulfate 90 mcg/actuation HFA aerosol inhaler 2 puff inhalation QID PRN (Reason: Shortness Of Breath) RF: 0 atorvastatin [Lipitor] 80 mg Tablet 80 mg PO BEDTIME RF: 0 omeprazole 40 mg Capsule,Delayed Release(Dr/Ec) 40 mg PO QAM RF: 0 montelukast [Singulair] 10 mg Tablet 10 mg PO BEDTIME RF: 0 glipizide 10 mg Tablet Extended Release 24hr 10 mg PO BID RF: 0 aspirin 81 mg Tablet,Delayed Release (Dr/Ec) 81 mg PO QAM RF: 0 atenolol [Tenormin] 100 mg tablet 100 mg PO QAM RF: 0 Dulera 200-5 mcg/actuation HFA aerosol inhaler 2 puff INHALATION BID RF: 0 allopurinol 100 mg tablet 100 mg PO QAM RF: 0 lisinopril 5 mg tablet 5 mg PO QAM RF: 0 Janumet 50-1,000 mg tablet 1 tab PO BID RF: 0 folic acid 1 mg tablet 1 mg PO DAILY RF: 0 ferrous sulfate 325 mg (65 mg iron) tablet 325 mg PO BID RF: 0 Levemir FlexTouch U-100 Insuln 100 unit/mL (3 mL) insulin pen See Rx Instructions .ROUTE .COMPLEX RF: 0 tamsulosin 0.4 mg capsule 0.4 mg PO DAILY RF: 0 ziprasidone HCl 40 mg capsule 40 mg PO DAILY@17 RF: 0 sertraline 50 mg tablet 50 mg PO DAILY RF: 0 Changed furosemide 40 mg tablet 40 mg PO BID 30 Days Qty: 60 RF: 3 Discharge Orders: Discharge Order (Routine); Ordered 07/15/21 Ordered By: Marcelo Jimenez Referrals: Stalin Abdullahi MD [Physician] - 08/08/21 10:45 am () Stewart Rosario MD [Primary Care Provider] - 2 weeks (Please contact clinic to schedule.) Crys Diggs MD [Physician] - 08/08/21 11:30 am Discharge Diet: Cardiac and Diabetic Discharge Activity: Resume usual activity Patient Instructions: Potassium Chloride (By mouth), Opioid Safety Discharge Attestations Time Spent in Discharge Care*: greater than 30 min Specific Discharge Activities: educating patient, educating and/or supporting family/caregiver, discussing with pcp/other providers, discussing with case manager specialist/social workers/dc planners, documenting/other paperwork and evaluating patient/reviewing data Status at Discharge: Cognitive status at discharge: cognitively intact , Behavioral status at discharge: cooperative , Quality Metrics Clinical Quality Measures During this hospital stay, did patient experience: None Coding Level of Care Code Acute Chg FW DC note Diagnoses CHF (congestive heart failure) I50.32 Heart failure chronicity: chronic Heart failure type: diastolic Diabetes E11.69 Diabetes mellitus complication status: with other specified complication 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
--- NOTE | 2021-07-15 14:29 | PC.CHAP ---
Pastoral Care Encounter/Spiritual Assessment Type of Contact [] Declined rag grader visit [] Patient/Family/Request visit [] Outpatient visit [] Follow-up visit [] Physician referral [] Code/Alert [xx] Routine visit [] Staff referral [] Actively dying [] Patient sleeping [] Family support [] [] Out of room [] Palliative care [] [] Receiving care in room [] Pre-surgical visit [] Trauma [] Long length of stay [] ICU visit [] Other: Relational/Emotional Strength [] Patient feels connected with others/family/visitors/staff [] Distress [] Loneliness/isolation [] Abandonment Spirituality of Patient [xx] Person of Yolanda [] Attends Scientologist of their Yolanda [xx] Believes in Prayer [] Reads Bible or Orthodox materials [] There are Spiritual issues to be addressed [employer] 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 Interventions x[xx] Prayer [xx] Active listening [xx] Non-anxious presence [] Spiritual/emotional support [] Crisis/trauma care [] Spiritual counseling [] Bereavement support [] Provided bereavement packet [] Provided Bible/devotional materials [] Provided toy/stuffed animal, coloring book to patient or family member [] Provided Communion [] Anointing/[place] [] Salvation [xx] Completed spiritual assessment [] Other: Impact on Illness or Injury [] Angry [] Fearful [] Anxious [] Often cries [] Exhaustion [] Unable to work [] Unable to attend orthodoxy [] Unable to walk/stand [] Unable to read [] Unable to drive [] Unable to eat/drink [] Unable to sleep [] Unable to be with family [] Patient intubated [] Other: Summary Patient was sitting up. Two relatives were present and wanted prayer for the patient. None wanted much conversation. Time spent with patient 3 minutes
[2021-07-15] MEDS: acetaminophen 325 mg Tablet 650 MG PO (16:35)
== END 2021-07-15 16:45 | disposition home or self-care (01) | DRG 291 ==
LOC: ER 11:04 → MEDSURG 14:42
PROVIDERS: Admitting Provider Internal Medicine; Emergency Provider Emergency Medicine; PCP Family Medicine; Visit Provider Internal Medicine
DX: I11.0 Hypertensive heart disease with heart failure (principal); I50.33 Acute on chronic diastolic (congestive) heart failure; E66.2 Morbid (severe) obesity with alveolar hypoventilation; D50.9 Iron deficiency anemia, unspecified; E11.9 Type 2 diabetes mellitus without complications; M10.9 Gout, unspecified; E78.2 Mixed hyperlipidemia; Z87.01 Personal history of pneumonia (recurrent); Z86.73 Personal history of transient ischemic attack (TIA), and cerebral infarction without residual deficits; F32.A Depression, unspecified; Z99.89 Dependence on other enabling machines and devices; I27.20 Pulmonary hypertension, unspecified; Z79.84 Long term (current) use of oral hypoglycemic drugs; Z79.4 Long term (current) use of insulin; Z79.82 Long term (current) use of aspirin
CPT/HCPCS: 36415; 36416; 71045; 71275; 80048; 80053; 82962; 83690; 83735; 83880; 84484; 85025; 85378; 85610; 85730; 87426; 93005; 96372; 96374; 99285; C8929; J1815; J1940; Q9956; Q9967

== ENCOUNTER 2021-07-25 08:46 | Observation (INO) | payer MEDICAID, SELFPAY ==
[2021-07-25] VITALS (13 sets, daily range): BP systolic 135–158; BP diastolic 52–70; PULSE 61–81; RESP 13–26; TEMP 37–37.1; O2SAT 90–99; BMI 64.2
--- NOTE | 2021-07-25 08:53 | W.ED.HA ---
HPI - Headache General: Chief Complaint: Headache Stated Complaint: HEADACHE Time Seen by Provider: 07/25/21 08:50 History of Present Illness: HPI Narrative: 51-year-old male presents emergency room with complaints of headache. That began overnight. He is not noticed anything that exacerbates or relieves it. Describes the headache as being persistent throughout the entire head. Patient is supposed to be on oxygen at 2 L/min has been off of it all night. He is also supposed to be on CPAP but he has not been using it. He denies any fever or productive cough. He has not previously been vaccinated for COVID nor is he been tested positive for COVID in the past. He has had some diarrhea. No chest or abdominal pain. Denies dysuria urgency or frequency. He has not noticed any particular orthopnea. He was hospitalized earlier this month for congestive heart failure. 4 L/min by nasal cannula patient is still satting 88 to 90%. MD elicited complaint: headache Onset description: gradually Location: frontal Severity: mild Quality & Timing: aching, throbbing and similar to previous headaches Exacerbating factors: none Relieving factors: nothing Associated symptoms: Reports weakness and other (Diarrhea); Deny chest pain, confusion, cough, diaphoresis, eye pain, eye redness, fever(s), lightheadedness, loss of vision, malaise, nausea, neck stiffness, numbness, paresthesias, pre-syncope, rash, seizures, short of breath, sound sensitivity, syncope or vomiting Treatments prior to arrival: none Review of Systems Const: Denies: fever(s), malaise or diaphoresis ENMT: Denies: throat pain, ear or mastoid pain, nasal discharge or nasal congestion Card: Denies: chest pain, lightheadedness, syncope or pre-syncope Resp: Denies: dyspnea, productive cough or non-productive cough GI: Denies: nausea or vomiting : Denies: flank pain, dysuria, urinary frequency or urinary urgency Skin/Breast: Denies: rash Neuro: Denies: confusion PFS ED PFSH: Medical History (Updated 08/02/21 @ 16:57 by Fantasma Del Angel DO) Anemia -has chronic iron deficiency anemia, baseline Hg is around 9-10 Chest pain CHF (congestive heart failure) -Echo (07/2019): EF=68%, normal diastolic function, no RWMA -on oral lasix -no acute exacerbation currently Decubitus ulcer limited to breakdown of skin (stage 2) Diabetes -NIDDM type II -A1c (11/2019): 8.2 -Accuchecks, ISS, hypoglycemia precautions -consistent carb diet -anticipate hyperglycemia with steroid use Gout Hyperlipemia, mixed Hypertension -VSS; continue to monitor -continue oral antihypertensives Morbid (severe) obesity due to excess calories OPAL (obstructive sleep apnea) -in the process of getting CPAP set up Pneumonia Psychiatric care Transient cerebral ischemia Surgical History History of adenoidectomy History of hernia repair History of tonsillectomy History of umbilical hernia repair Family History Mother Hypertension CAD (coronary artery disease) Stroke Social History Smoking and tobacco status: never smoked Second hand smoke exposure: Yes Alcohol intake: never Adopted: No Caregiver/support person: No Lives independently: Yes Household members: family and friend(s) Housing: Manufactured/Mobile home Marital status: Single Number of children: 0 Number of grandchildren: 0 Highest education level completed: 8th Grade service: No Current occupational status: disabled Pets and animals: No History of recent travel: No Leisure activites: other Leisure activities details: play card games Sexually active: No Current gender identity: Male Yolanda/Hoahaoism: Other Special yolanda needs: No Agree to transfusion: Yes Financial difficulty paying for basics: Hard Physical Exam Const: GENERAL APPEARANCE: cooperative and comfortable ORIENTATION/CONSCIOUSNESS: Yes awake, Yes oriented to person, Yes oriented to place and Yes oriented to time HENMT: COMMON NORMALS: normocephalic, atraumatic and hearing grossly normal bilaterally HEAD & SCALP: normocephalic and atraumatic Eye: COMMON NORMALS: Equal, round and reactive pupils present, EOMs intact bilaterally, conjunctivae normal and no scleral icterus CONJUNCTIVA: Yes conjunctivae normal PUPIL: Yes Equal, round and reactive pupils present Neck/C-Spine: COMMON NORMALS: no JVD Resp: COMMON NORMALS: normal respiratory effort, No retractions, No use of accessory muscles and clear to auscultation bilaterally AUSCULTATION: clear to auscultation bilaterally Cardio: COMMON NORMALS: no JVD, regular rate, regular rhythm and No murmurs present (Cardio) RATE: regular rate RHYTHM: regular rhythm GI: COMMON NORMALS: No hepatosplenomegaly present AUSCULTATION: Yes normoactive bowel sounds PALPATION: No Tenderness to palpation present (GI), No Guarding due to palpation present (GI) and Yes No hepatosplenomegaly present OTHER: Anasarca at 2 2 to 3 fingerbreadths below the level of the umbilicus Extremity: COMMON NORMALS: normal to inspection, capillary refill normal and no calf tenderness OTHER: 2+ edema to the lower extremities bilaterally to the level of the thighs. Neuro: SENSORIUM/ORIENTATION: Yes oriented to person, Yes oriented to place and Yes oriented to time Skin: COMMON NORMALS: no rashes or lesions noted GENERAL SKIN EXAM: no rashes or lesions noted Course Vital Signs: Vital signs: Vital Signs Temperature 98.1 F 07/26/21 14:31 Pulse Rate 73 07/26/21 14:31 Respiratory Rate 18 07/26/21 14:31 Blood Pressure 129/73 07/26/21 14:31 Pulse Oximetry 97 07/26/21 14:31 MDM - Headache MDM Narrative Medical decision making narrative: Patient moderate congestive heart failure discussed the hospitalist orders written. Will require hospitalization for adjustment of blood pressure medications diuresis. Medical Records Attestation: I reviewed the patient's medical records. Lab Data Attestation: I reviewed the patient's lab results. Result diagrams: 07/26/21 05:43 07/26/21 05:43 Labs: Lab Results 07/25/21 07/25/21 07/25/21 09:10 09:12 10:00 WBC 5.2 10^3/uL 10^3/uL (4.0-10.0) RBC 4.05 10^6/uL L 10^6/uL (4.1-5.3) Hgb 9.0 g/dL L g/dL (11.7-16.6) Hct 34.2 % L % (42.0-52.0) MCV 84.4 fl fl (80-94) MCH 22.2 pg L pg (28.0-34.0) MCHC 26.3 g/dL L g/dL (30.0-36.0) RDW 19.8 % H % (12.1-15.1) Plt Count 254 10^3/cmm 10^3/cmm (130-400) MPV 10.4 fL fL (7.4-10.4) Neut % (Auto) 82.8 % % Lymph % (Auto) 10.4 % % [place] % (Auto) 6.0 % % Eos % (Auto) 0.4 % % Baso % (Auto) 0.2 % % Neut # (Auto) 4.32 10^3/uL 10^3/uL (1.8-7.7) Lymph # (Auto) 0.5 10^3/uL L 10^3/uL (0.8-4.8) [place] # (Auto) 0.3 10^3/uL 10^3/uL (0.2-0.9) Eos # (Auto) 0.0 10^3/uL 10^3/uL (0.0-0.8) Baso # (Auto) 0.0 10^3/uL 10^3/uL (0.0-0.1) Nucleated RBC % (auto) 0 % % Nucleated RBCs # 0.0 /100WBC /100WBC Specimen Type Arterial Sample Site Brachial, left ABG pH 7.43 (7.35-7.45) ABG pCO2 45.4 mmHg H mmHg (35-45) ABG pO2 52.3 mmHg L mmHg (80.0-100.0) ABG HCO3 29.9 mmol/L H mmol/L (22-26) ABG O2 Saturation 85.7 ABG Base Excess 4.9 mmol/L H mmol/L (-2.0-2.0) Luis Test N/a A-a O2 Gradient 19.4 mmHg H mmHg (5-10) Hematocrit 29.4 % L % (42-52) Hgb O2 Saturation 84.1 % L % (95-100) Carboxyhemoglobin 1.6 %THgb %THgb (0.4-20.1) Methemoglobin 0.3 % L % (0.4-1.5) Total Hemoglobin 9.6 g/dL L g/dL (14-18) Sodium 143.0 mmol/L mmol/L (131-143) Potassium 4.4 mmol/L mmol/L (3.5-5.0) Glucose 121.0 mg/dL H mg/dL (70-115) Ionized Calcium 1.2 mmol/L mmol/L (1.1-1.4) O2 Delivery Device Nc O2 Liters/Min 4.0 % % FiO2 36.0 % % Science Technicians ID Ed Chloride Carbon Dioxide Anion Gap BUN Creatinine GFR Calculation Calculated Osmolality Lactic Acid Calcium Total Bilirubin AST ALT Alkaline Phosphatase Creatine Kinase Total Protein Albumin Globulin Coronavirus 229E (PCR) Not detected (NOT DETECT) SARS-CoV-2 (PCR) Not detected (NOT DETECT) 07/25/21 07/25/21 10:00 10:00 WBC RBC Hgb Hct MCV MCH MCHC RDW Plt Count MPV Neut % (Auto) Lymph % (Auto) [place] % (Auto) Eos % (Auto) Baso % (Auto) Neut # (Auto) Lymph # (Auto) [place] # (Auto) Eos # (Auto) Baso # (Auto) Nucleated RBC % (auto) Nucleated RBCs # Specimen Type Sample Site ABG pH ABG pCO2 ABG pO2 ABG HCO3 ABG O2 Saturation ABG Base Excess Luis Test A-a O2 Gradient Hematocrit Hgb O2 Saturation Carboxyhemoglobin Methemoglobin Total Hemoglobin Sodium 142 mmol/L mmol/L (136-145) Potassium 4.6 mmol/L mmol/L (3.5-5.1) Glucose 109 mg/dL mg/dL (65-115) Ionized Calcium O2 Delivery Device O2 Liters/Min FiO2 Science Technicians ID Chloride 102 mmol/L mmol/L (98-107) Carbon Dioxide 27 mmol/L mmol/L (22-29) Anion Gap 17.6 (5-19) BUN 16 mg/dL mg/dL (6-20) Creatinine 1.1 mg/dL mg/dL (0.7-1.2) GFR Calculation 71.1 mL/min L mL/min (90-130) Calculated Osmolality 296 mOsm/kg H mOsm/kg (285-295) Lactic Acid 1.2 mmol/L mmol/L (0.5-2.2) Calcium 8.8 mg/dL mg/dL (8.5-10.5) Total Bilirubin 1.5 mg/dL H mg/dL (0.15-1.2) AST 15 U/L U/L (0-40) ALT 12 U/L U/L (0-41) Alkaline Phosphatase 223 IU/L H IU/L (40-130) Creatine Kinase 43 U/L U/L (39-308) Total Protein 7.4 g/dL g/dL (6.6-8.7) Albumin 3.7 g/dL g/dL (3.5-5.2) Globulin 3.7 g/dL g/dL (1.3-4.6) Coronavirus 229E (PCR) SARS-CoV-2 (PCR) Discharge Plan Discharge Patient Disposition: Admitted As Inpatient Admit Provider: Anthony Michaels Clinical Impression: CHF (congestive heart failure), Hypertension, Chest pain Condition: Stable Discharge Orders: Discharge Order (Routine); Ordered 07/26/21 Ordered By: Anthony Michaels Discharge Diet: Cardiac and Diabetic Discharge Activity: Increase activity as tolerated Coding Level of Care Code ED Phlebotomist Lab Assistant for Zac Fwd Exam Comprehensive
--- NOTE | 2021-07-25 08:59 | XR_ITS ---
WS: [id number] Exam: XR chest 1V portable [id number] Date/Time of Exam: 07/25/2021 9:05 AM Reason For Exam: dyspnea/cough Comparison 07/13/2021. The lungs are fully inflated and clear. The heart is enlarged but unchanged in size. The lungs are fu lly expanded and clear. No pleural effusions. Regional bony elements are intact. XR/XR chest 1V portable [id number] IMPRESSION: 1. Cardiac enlargement unchanged. 2. No acute cardiopulmonary finding.
--- NOTE | 2021-07-25 09:02 | ECG_ITS ---
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: : 1970 Requested By: Fantasma Olson Order Number: [id number] Reading MD: JAMIE CAZARES Measurements Intervals Thermal Rate: 72 P: 82 HI: 187 QRS: 93 QRSD: 97 T: 75 QT: 398 QTc: 438 Interpretive Statements SINUS RHYTHM WITH OCCASIONAL VENTRICULAR PREMATURE COMPLEXES INDETERMINATE AXIS LOW QRS VOLTAGE IN PRECORDIAL LEADS [QRS DEFLECTION < 1.0 mV IN CHEST LEADS] PATTERN CONSISTENT WITH PULMONARY DISEASE INCOMPLETE RIGHT BUNDLE BRANCH BLOCK [90+ ms QRS DURATION, TERMINAL R IN V1/V2, 40+ ms S IN I/aVL/V4/V5/V6] WARNING: DATA QUALITY MAY AFFECT INTERPRETATION Compared to ECG 07/13/2021 13:44:32 Ventricular premature complex(es) now present Indeterminate axis now present Low QRS voltage now present Electronically Signed On 07-25-2021 20:53:47 ATTRACTIONS ASSOCIATE by JAMIE CAZARES [email or web address]
[2021-07-25 09:22] LABS: ABG PCO2 45.4 mmHg (35-45); ABG PH Result 7.43 (7.35-7.45); Alveolar-Arterial Oxygen Gradi 19.4 mmHg (5-10); Arterial Blood Gas Hematocrit 29.4 % (42-52); Base Excess ABG 4.9 mmol/L (-2.0-2.0); Blood Gas Operator Identificat ED; Blood Gas Sample Site Brachial, left; Blood Gas Sample Type Arterial; Carboxyhemoglobin 1.6 %THgb (0.4-20.1); HCO3 ABG 29.9 mmol/L (22-26); HGB O2 Sat 84.1 % (95-100); Ionized Calcium Level - ABG 1.2 mmol/L (1.1-1.4); Methemoglobin 0.3 % (0.4-1.5); Oxygen Device NC; Oxygen Saturation ABG 85.7; PO2 ABG 52.3 mmHg (80.0-100.0); Potassium Level - ABG 4.4 mmol/L (3.5-5.0); Total Hemoglobin 9.6 g/dL (14-18)
--- NOTE | 2021-07-25 10:07 | PC.NURSE ---
Pt is morbid obese, lays on left side. Non complaint with O2 at home per EMS.
[2021-07-25] MEDS: FUROsemide 10 mg/mL SDV 4mL 40 MG IVP (10:08)
[2021-07-25] MEDS: promethazine 25 mg/mL SDV 1 mL IM (10:09)
[2021-07-25 10:16] LABS: Basophils % 0.2 %; Eosinophils % 0.4 %; Hematocrit 34.2 % (42.0-52.0); Lymphocytes # 0.5 10^3/uL (0.8-4.8); Lymphocytes % 10.4 %; Mean Corpuscular HGB Conc 26.3 g/dL (30.0-36.0); Mean Corpuscular Hemoglobin 22.2 pg (28.0-34.0); Mean Corpuscular Volume 84.4 fl (80-94); Mean Platelet Volume 10.4 fL (7.4-10.4); Monocytes # 0.3 10^3/uL (0.2-0.9); Neutrophils # 4.32 10^3/uL (1.8-7.7); Neutrophils % 82.8 %; Nucleated Red Blood Cells % 0 %; Platelet Count 254 10^3/cmm (130-400); Red Blood Count 4.05 10^6/uL (4.1-5.3); Red Cell Distribution Width 19.8 % (12.1-15.1); White Blood Count 5.2 10^3/uL (4.0-10.0)
[2021-07-25 10:37] LABS: Lactic Sepsis W/Reflex 1.2 mmol/L (0.5-2.2)
[2021-07-25 10:38] LABS: Alanine Aminotransferase 12 U/L (0-41); Albumin Level 3.7 g/dL (3.5-5.2); Alkaline Phosphatase 223 IU/L (40-130); Anion Gap 17.6 (5-19); Aspartate Amino Transferase 15 U/L (0-40); Blood Urea Nitrogen 16 mg/dL (6-20); Calcium 8.8 mg/dL (8.5-10.5); Carbon Dioxide 27 mmol/L (22-29); Chloride 102 mmol/L (98-107); Creatine Phosphokinase 43 U/L (39-308); Globulin 3.7 g/dL (1.3-4.6); Glomerular Filtration Rate 71.1 mL/min (90-130); Glucose 109 mg/dL (65-115); Osmolality Calculated 296 mOsm/kg (285-295); Potassium 4.6 mmol/L (3.5-5.1); Sodium 142 mmol/L (136-145); Total Bilirubin 1.5 mg/dL (0.15-1.2); Total Protein 7.4 g/dL (6.6-8.7)
[2021-07-25 11:46] LABS: Adenovirus Not Detected (NOT DETECT); Chlamydia Pneumoniae Not Detected (NOT DETECT); Coronavirus 229E,HKU1,NL63,OC4 Not Detected (NOT DETECT); Human Metapneumovirus Not Detected (NOT DETECT); Human Rhinovirus/Enterovirus Not Detected (NOT DETECT); Influenza A Not Detected (NOT DETECT); Influenza A H1 Not Detected (NOT DETECT); Influenza A H1-2009 Not Detected (NOT DETECT); Influenza A H3 Not Detected (NOT DETECT); Influenza B Not Detected (NOT DETECT); Mycoplasma Pneumoniae Not Detected (NOT DETECT); Parainfluenza Virus Type 1 Not Detected (NOT DETECT); Parainfluenza Virus Type 2 Not Detected (NOT DETECT); Parainfluenza Virus Type 3 Not Detected (NOT DETECT); Parainfluenza Virus Type 4 Not Detected (NOT DETECT); Respiratory Syncytial Virus A Not Detected (NOT DETECT); Respiratory Syncytial Virus B Not Detected (NOT DETECT); SARS-COV-2 Not Detected (NOT DETECT)
[2021-07-25 12:59] LABS: Glucose Urine UA Norm (Normal); Ketones Urine Negative (Negative); Protein Urine 2+ (Negative); Specific Gravity, Urine 1.005 (1.005-1.030); Urine Appearance Cloudy (CLEAR); Urine Color Straw (Yellow); pH Urine 7 (5-7)
[2021-07-25 13:00] LABS: Add Urine Culture? Yes; Add Urine Microscopic? YES; Bacteria Urine 4+ /hpf; Bilirubin Urine Neg (Negative); Blood Urine 3+ (Negative); Leukocyte Esterase Urine 2+ (Negative); Nitrate Urine Negative (Negative); RBC Urine TOO NUMEROUS TO CNT /hpf (0-2); Squamous Epithelial Cell Urine 0-4 /hpf (0-5); Urobilinogen Urine Norm (Negative); WBC Urine TOO NUMEROUS TO CNT /hpf (0-5)
[2021-07-25] MEDS: cefTRIAXone 1,000 MG in sodium chloride 0.9% (plus) 50 ML 100 MG IV (13:10)
[2021-07-25 13:37] LABS: Glucose Point of Care 109 mg/dL (70-110)
--- NOTE | 2021-07-25 14:10 | PM.HP ---
Providers/Chief Complaint Primary Care Provider: Stewart Rosario MD Chief Complaint: HEADACHE History of Present Illness Arnol Guzman is a 51 year old male who presents to the ER with a headache that began at 8am this morning. He reports that he fell yesterday and did not hit his head, but he is unable to say for sure if he lost consciousness or not. He describes the headache as primarily affecting the left side of the back of his head. The quality of this headache is new for him. It is better when he lays down and worse when he talks loud. He reports he has also been experiencing nausea, some diarrhea, and bilateral chest pain that comes and goes. He denies vomiting, fevers, chills, or abdominal pain. He reports not using his CPAP at night for the past 1-2 weeks. He was found to be hypoxic in the emergency department and despite being placed on ultimately 4 L, was still hypoxic and BiPAP was initiated. He is not vaccinated against COVID and denies past history of COVID. In the emergency department he got a dose of Rocephin, and some Lasix IV. He was also placed on BiPAP. Review of Systems General: Reports: 10 or more systems reviewed and unremarkable except in HPI and below Const: Denies: fever(s) or chills Eyes: Denies: eye discomfort ENMT: Denies: throat pain Card: Reports: chest pain Resp: Reports: dyspnea GI: Denies: abdominal pain : Denies: flank pain Musc: Denies: neck pain Skin/Breast: Denies: rash Neuro: Reports: headache(s) Psych: Denies: memory loss Endo: Denies: polyuria Mendel/Lymph: Denies: easy bruising All/Imm: Denies: urticaria Medications/Allergies Home Medications Medication Instructions Recorded Confirmed Last Taken Type atorvastatin [Lipitor] 80 mg PO BEDTIME 07/14/19 07/25/21 07/24/21 History montelukast [Singulair] 10 mg PO BEDTIME 07/14/19 07/25/21 07/24/21 History omeprazole 40 mg PO DAILY 07/14/19 07/25/21 07/24/21 History glipizide 10 mg PO BID 01/21/20 07/25/21 07/24/21 History oxygen-air delivery systems #1 03/11/20 07/25/21 Unknown History albuterol sulfate 90 mcg/actuation 2 puff INHALATION QID PRN 05/19/20 07/25/21 07/25/21 History aerosol inhaler aspirin 81 mg PO DAILY 09/13/20 07/25/21 07/24/21 History Dulera 2 puff INHALATION BID 11/24/20 07/25/21 07/24/21 History atenolol [Tenormin] 100 mg PO DAILY 11/24/20 07/25/21 07/24/21 History Janumet 1 tab PO BID 02/16/21 07/25/21 07/24/21 History allopurinol 100 mg PO DAILY 02/16/21 07/25/21 07/24/21 History lisinopril 5 mg PO DAILY 02/16/21 07/25/21 07/24/21 History folic acid 1 mg PO DAILY 06/20/21 07/25/21 07/24/21 History ferrous sulfate 325 mg PO DAILY 06/22/21 07/25/21 07/24/21 History Levemir FlexTouch U-100 Insuln See Rx Instructions .ROUTE .COMPLEX 07/13/21 07/25/21 Unknown History sertraline 50 mg PO DAILY 07/13/21 07/25/21 07/24/21 History tamsulosin 0.4 mg PO DAILY 07/13/21 07/25/21 07/24/21 History ziprasidone HCl 40 mg PO DAILY@17 07/13/21 07/25/21 07/24/21 History acetaminophen [Tylenol] 325 mg PO Q6H PRN #14 cap 07/15/21 07/25/21 Unknown Rx cyclobenzaprine 5 mg PO BID PRN #10 tab 07/15/21 07/25/21 Unknown Rx furosemide 40 mg PO BID 30 Days #60 tab 07/15/21 07/25/21 07/24/21 Rx diclofenac sodium [Voltaren 2 g TOPICAL QID PRN 07/25/21 07/25/21 Unknown History Arthritis Pain] potassium chloride [Klor-Con M20] 20 meq PO DAILY 07/25/21 07/25/21 Unknown History Allergies Allergy/AdvReac Type Severity Reaction Status Date / Time Penicillins Allergy ALGY-Hives Verified 07/25/21 12:18 diltiazem [From Cardizem] AdvReac ADR/ALGY-Pa Verified 07/25/21 12:18 lpitations PFSH Acute PFSH: Medical History (Updated 07/25/21 @ 14:35 by Anthony Michaels MD) Anemia -has chronic iron deficiency anemia, baseline Hg is around 9-10 Chest pain CHF (congestive heart failure) -Echo (07/2019): EF=68%, normal diastolic function, no RWMA -on oral lasix -no acute exacerbation currently Decubitus ulcer limited to breakdown of skin (stage 2) Diabetes -NIDDM type II -A1c (11/2019): 8.2 -Accuchecks, ISS, hypoglycemia precautions -consistent carb diet -anticipate hyperglycemia with steroid use Gout Hyperlipemia, mixed Hypertension -VSS; continue to monitor -continue oral antihypertensives Morbid (severe) obesity due to excess calories OPAL (obstructive sleep apnea) -in the process of getting CPAP set up Pneumonia Psychiatric care Transient cerebral ischemia Surgical History History of adenoidectomy History of hernia repair History of tonsillectomy History of umbilical hernia repair Family History Mother Hypertension CAD (coronary artery disease) Stroke Social History Smoking and tobacco status: never smoked Second hand smoke exposure: Yes Alcohol intake: never Adopted: No Caregiver/support person: No Lives independently: Yes Household members: family and friend(s) Housing: Manufactured/Mobile home Marital status: Single Number of children: 0 Number of grandchildren: 0 Highest education level completed: 8th Grade service: No Current occupational status: disabled Pets and animals: No History of recent travel: No Leisure activites: other Leisure activities details: play card games Sexually active: No Current gender identity: Male Yolanda/Muslim: Other Special yolanda needs: No Agree to transfusion: Yes Financial difficulty paying for basics: Hard Vitals/I&O/Wt Last Vital Signs Temp 98.7 F 07/25/21 08:50 Pulse 61 07/25/21 11:56 Resp 16 07/25/21 10:02 BP 153/69 07/25/21 10:02 Pulse Ox 99 07/25/21 11:56 Weight last 48 hrs Weight 154.221 kg Physical Exam Narrative: EXAM NARRATIVE: General exam is an obese white male, on BiPAP, difficult to understand secondary to the BiPAP HEENT: Atraumatic normocephalic. BiPAP noted. Neck is supple no lymphadenopathy thyromegaly Cardiovascular regular rate and rhythm, heart sounds distant Lungs diminished breath sounds bilaterally but no wheezes or crackles Abdomen is soft, nontender. Positive bowel sounds. Extremities no cyanosis clubbing. Trace edema possible. Cap refill brisk. Skin no rash Neuro no focal deficits. Data : 07/25/21 10:00 07/25/21 10:00 Other data: ABG demonstrated a pH 7.43, PCO2 45, PO2 of 52 on 4 L nasal cannula Bilirubin 1.5, AST 15, ALT 12, alk phos 223, creatinine kinase 43, lactic acid 1.2, calcium 8.8. Urinalysis demonstrated too numerous to count reds and too numerous to count white blood cells with 4+ bacteria. COVID PCR negative Chest x-ray cardiomegaly, no obvious infiltrate Recent CTA in July 13, 2021 demonstrated no pulmonary embolism EKG demonstrated normal sinus rhythm, normal axis, poor R wave progression. Incomplete right bundle. Echo July 13 of this year demonstrated grade 2/4 diastolic dysfunction, EF of 59% A&P Assessment and plan (1) Hypoxia: This is likely multifactorial. Certainly there is a component of obesity hypoventilation. He has not been using his CPAP while sleeping, and during the day as needed as he should. There also is likely a component of mild acute diastolic heart failure. He has received a dose of IV diuretic in the emergency department to start treatment for this. I do not think he has evidence of any kind of COPD or exacerbation currently. Discontinue muscle relaxant Continue BiPAP for now. Try to wean off as tolerated. Try to maintain saturation 90 to 92%. Status: Acute (2) Headache: Patient with complaints of headache upon presentation. Denies hitting head although he did have a recent fall. This could be secondary to hypoxia. We will continue to monitor. Status: Acute (3) Acute diastolic heart failure: Patient with history of grade 2/4 diastolic dysfunction. He is on diuretic at home. We will diurese further here, monitoring kidney function closely. Lasix 60 mg IV every 12 hours Status: Acute (4) Anemia: Chronic, continue to monitor Status: Acute Qualifiers: Anemia type: iron deficiency Iron deficiency anemia type: unspecified iron deficiency Qualified Code(s): D50.9 - Iron deficiency anemia, unspecified (5) Morbid (severe) obesity due to excess calories: Encourage weight loss Status: Acute (6) UTI (urinary tract infection): Urine culture Rocephin IV Status: Acute Additional A&P Information Full code Lovenox for DVT prophylaxis Attestations Medical Necessity Statement*: Will need less than 2 midnight stay for treatment of hypoxia, acute mild diastolic heart failure, UTI Time Spent in Patient Care: Greater than 35 minutes Coding Level of Care Code Acute Disability Representative for [facility] Fwd Diagnoses Hypoxia R09.02 Headache R51.9 Acute diastolic heart failure I50.31 Anemia D50.9 Anemia type: iron deficiency Iron deficiency anemia type: unspecified iron deficiency Morbid (severe) obesity due to excess calories E66.01 UTI (urinary tract infection) N39.0
--- NOTE | 2021-07-25 14:50 | CTR_ITS ---
PROCEDURE INFORMATION: Exam: CT Abdomen And Pelvis Without Contrast Exam date and time: 07/25/2021 2:50 PM Age: 51 years old Clinical indication: Other: Hematuria, microscopic TECHNIQUE: Imaging protocol: Computed tomography of the abdomen and pelvis without contrast. Radiation optimization: All CT scans at this facility use at least one of these dose optimization techniques: automated exposure control; mA and/or kV adjustment per patient size (includes targeted exams where dose is matched to clinical indication); or iterative reconstruction. COMPARISON: CT abdomen pelvis w con* [id number] 06/18/2021 6:26 PM RADIATION DOSE METRICS: Total DLP (mGy-cm): 2767.86 FINDINGS: Limitations: The absence of intravenous contrast lessens the sensitivity of this study for solid organ abnormalities. Lungs: There is calcified granuloma at the left lung base. 7 mm diameter noncalcified nodule posterior left lower lobe on image number 10 and also 5 mm noncalcified nodule posterior right lower lobe on image number 10 not significantly changed from 06/18/2021. Consider 12 month follow-up according to Fleischner society guidelines. Pleural spaces: There are small bilateral pleural effusions. Liver: There is no focal abnormality within the liver. There is moderate enlargement of the liver. Liver measures 22 cm in height. Gallbladder and bile ducts: The gallbladder is normal. Pancreas: The pancreas is normal. Spleen: The spleen is normal. Adrenal glands: The adrenal glands are normal. Kidneys and ureters: There are multiple right renal collecting system calcifications. There is no evidence of hydronephrosis. There is no evidence of renal or ureteral calcifications. 2.5 cm sized simple cyst mid left kidney not significantly changed. Stomach and bowel: There is no evidence of colitis/diverticulitis. Appendix: A normal appendix is identified. Intraperitoneal space: There is a small amount of free intraperitoneal fluid present. Vasculature: Unremarkable. No abdominal aortic aneurysm. Lymph nodes: Unremarkable. No enlarged lymph nodes. Urinary bladder: Unremarkable as visualized. Reproductive: Unremarkable as visualized. Bones/joints: Unremarkable. No acute fracture. Soft tissues: There is increased thickening of the skin in the lower abdominal wall and diffuse edema in the subcutaneous soft tissues. The subcutaneous edema may represent anasarca. The significance of the skin thickening is uncertain. Please correlate with the physical examination findings for any signs of cellulitis. CT/CT kidney stone [id number] IMPRESSION: 1. Right nephrolithiasis 2. No ureteral calculi are identified. 3. Mild hepatomegaly. 4. Small pleural effusions 5. Mild anasarca. 6. Small nonspecific pulmonary nodules. Consider follow-up according to Fleischner society guidelines.
[2021-07-25] MEDS: enoxaparin 40 mg/0.4 mL Syringe SUBCUT (17:53)
[2021-07-25] MEDS: FUROsemide 10 mg/mL SDV 10mL 60 MG IVP (17:53)
[2021-07-25 17:58] LABS: Glucose Point of Care 107 mg/dL (70-110)
[2021-07-25] MEDS: ipratropium-albuterol 3 mL Neb INHALATION (20:32)
[2021-07-25] MEDS: budesonide 0.5 mg/2 mL Neb INHALATION (20:32)
[2021-07-25] MEDS: atorvastatin 40 mg Tablet 80 MG PO (20:40)
[2021-07-25] MEDS: acetaminophen 325 mg Tablet 650 MG PO (20:41)
[2021-07-25] MEDS: montelukast sodium 10 mg Tablet PO (20:41)
[2021-07-26] VITALS (7 sets, daily range): BP systolic 117–136; BP diastolic 62–73; PULSE 56–79; RESP 16–18; TEMP 36.7–37; O2SAT 92–97
[2021-07-26] MEDS: FUROsemide 10 mg/mL SDV 10mL 60 MG IVP (05:59)
[2021-07-26 06:01] LABS: Basophils % 0.6 %; Eosinophils % 0.4 %; Hematocrit 30.9 % (42.0-52.0); Hemoglobin 8.3 g/dL (11.7-16.6); Lymphocytes # 1.1 10^3/uL (0.8-4.8); Lymphocytes % 21.9 %; Mean Corpuscular HGB Conc 26.9 g/dL (30.0-36.0); Mean Corpuscular Hemoglobin 22.7 pg (28.0-34.0); Mean Corpuscular Volume 84.7 fl (80-94); Mean Platelet Volume 9.9 fL (7.4-10.4); Monocytes # 0.6 10^3/uL (0.2-0.9); Monocytes % 12.4 %; Neutrophils # 3.18 10^3/uL (1.8-7.7); Neutrophils % 64.5 %; Nucleated Red Blood Cells % 0 %; Platelet Count 228 10^3/cmm (130-400); Red Blood Count 3.65 10^6/uL (4.1-5.3); Red Cell Distribution Width 20.1 % (12.1-15.1); White Blood Count 4.9 10^3/uL (4.0-10.0)
[2021-07-26 06:18] LABS: Anion Gap 12.9 (5-19); Blood Urea Nitrogen 17 mg/dL (6-20); Calcium 8.6 mg/dL (8.5-10.5); Carbon Dioxide 31 mmol/L (22-29); Chloride 104 mmol/L (98-107); Glomerular Filtration Rate 71.1 mL/min (90-130); Glucose 95 mg/dL (65-115); Magnesium 1.7 mg/dL (1.7-2.3); Osmolality Calculated 299 mOsm/kg (285-295); Potassium 3.9 mmol/L (3.5-5.1); Sodium 144 mmol/L (136-145)
[2021-07-26 08:19] LABS: Glucose Point of Care 113 mg/dL (70-110)
[2021-07-26 08:19] LABS: Glucose Point of Care 100 mg/dL (70-110)
[2021-07-26] MEDS: pantoprazole DR 40 mg Tablet PO (08:41)
[2021-07-26] MEDS: potassium chloride ER 20 mEq Tablet PO (08:41)
[2021-07-26] MEDS: atenolol 50 mg Tablet 100 MG PO (08:41)
[2021-07-26] MEDS: tamsulosin 0.4 mg Capsule PO (08:41)
[2021-07-26] MEDS: lisinopril 5 mg Tablet PO (08:41)
[2021-07-26] MEDS: allopurinol 100 mg Tablet PO (08:42)
[2021-07-26] MEDS: aspirin 81 mg EC Tablet PO (08:42)
[2021-07-26] MEDS: sertraline 50 mg Tablet PO (08:42)
[2021-07-26] MEDS: ipratropium-albuterol 3 mL Neb INHALATION (10:42)
[2021-07-26] MEDS: budesonide 0.5 mg/2 mL Neb INHALATION (10:44)
--- NOTE | 2021-07-26 10:52 | P.DS_ITS ---
Discharge Providers Date of Admission: 07/25/21 11:48 Date of Discharge: July 26, 2021 Attending Provider at Admission: Anthony Michaels MD Attending Provider at Discharge: Anthony Michaels MD Primary Care Provider: Stewart Rosario MD Diagnoses at Discharge Discharge Diagnosis (1) Hypoxia: Status: Acute (2) Headache: Status: Acute (3) Acute diastolic heart failure: Status: Acute (4) Anemia: Status: Acute Permanent problem details: -has chronic iron deficiency anemia, baseline Hg is around 9-10 Qualifiers: Anemia type: iron deficiency Iron deficiency anemia type: unspecified iron deficiency Qualified Code(s): D50.9 - Iron deficiency anemia, unspecified (5) Morbid (severe) obesity due to excess calories: Status: Acute (6) UTI (urinary tract infection): Status: Acute Reason for Visit Reason for Visit: HEADACHE Hospital Course Hospital Course Arnol presented to the hospital with a headache, and upon arriving here it was noted that his oxygen level was somewhat down. He reported he had not been using his CPAP for the last week or so. A COVID test was done, which was negative. Emergency department physician placed him on BiPAP. Diuresis was initiated for concern of possible acute diastolic heart failure. As far as his general body edema, he appeared to have trace edema in his lower extremities but otherwise did not appear significantly different from other times of I evaluated him. He had also had a recent CTA July 13. Diuresis was started, and IV antibiotics were started as well with concern of UTI. CT renal protocol demonstrated no obstruction, right renal stone. The next day he had no significant headache. He had been up to the bathroom several times. He was on 2 L of oxygen and saturating adequately. We talked about the importance of wearing CPAP. I changed his Lasix to Bumex to have better absorption. He will finish up some antibiotics for his UTI. Culture is currently pending. We will resume his home health on discharge. Overall he will continue to have frequent hospitalizations, and an overall poor outcome if he does not have significant weight loss. Other changes to his medical regimen included discontinuing muscle relaxant, and reduction of glipizide to 10 mg once daily. Weight loss was discussed with the patient. He will follow-up with his primary care provider in 3 days for CBC BMP and office visit. Physical Exam Narrative: EXAM NARRATIVE: General exam no distress Neck is supple Cardiovascular regular in rhythm Lungs clear Abdomen is soft, obese Extremities no cyanosis clubbing or edema on discharge. Neuro no focal deficits. Discharge Data Data Completed and Pending: Completed Studies During Hospitalization Category Date Time Status CT kidney stone 7 [id number] Urgent Cat Scan 07/25/21 14:50 Completed XR chest 1V camila ble [id number] Stat Exams 07/25/21 08:59 Completed Pending at discharge Category Date Time Status Blood Culture Sta t Lab 07/25/21 14:15 Results Urine Culture Sta t Lab 07/25/21 12:15 Received Labs from last 24 hours 07/26/21 07/26/21 07/26/21 06:30 05:43 05:43 WBC 4.9 RBC 3.65 L Hgb 8.3 L Hct 30.9 L MCV 84.7 MCH 22.7 L MCHC 26.9 L RDW 20.1 H Plt Count 228 MPV 9.9 Neut % (Auto) 64.5 Lymph % (Auto) 21.9 [place] % (Auto) 12.4 Eos % (Auto) 0.4 Baso % (Auto) 0.6 Neut # (Auto) 3.18 Lymph # (Auto) 1.1 [place] # (Auto) 0.6 Eos # (Auto) 0.0 Baso # (Auto) 0.0 Nucleated RBC % (a uto) 0 Nucleated RBCs # 0.0 Sodium 144 Potassium 3.9 Chloride 104 Carbon Dioxide 31 H Anion Gap 12.9 BUN 17 Creatinine 1.1 GFR Calculation 71.1 L Glucose 95 POC Glucose 100 Calculated Osmolal ity 299 H Calcium 8.6 Magnesium 1.7 Urine Color Urine Appearance Urine pH Ur Specific Gravit y Urine Protein Urine Glucose (UA) Urine Ketones Urine Blood Urine Nitrate Urine Bilirubin Urine Urobilinogen Ur Leukocyte Maggie ase Urine RBC Urine WBC Ur Squamous Epith Cells Amorphous Sediment Urine Bacteria Coronavirus 229E ( PCR) SARS-CoV-2 (PCR) 07/25/21 07/25/21 07/25/21 21:33 17:28 13:28 WBC RBC Hgb Hct MCV MCH MCHC RDW Plt Count MPV Neut % (Auto) Lymph % (Auto) [place] % (Auto) Eos % (Auto) Baso % (Auto) Neut # (Auto) Lymph # (Auto) [place] # (Auto) Eos # (Auto) Baso # (Auto) Nucleated RBC % (a uto) Nucleated RBCs # Sodium Potassium Chloride Carbon Dioxide Anion Gap BUN Creatinine GFR Calculation Glucose POC Glucose 113 H 107 109 Calculated Osmolal ity Calcium Magnesium Urine Color Urine Appearance Urine pH Ur Specific Gravit y Urine Protein Urine Glucose (UA) Urine Ketones Urine Blood Urine Nitrate Urine Bilirubin Urine Urobilinogen Ur Leukocyte Maggie ase Urine RBC Urine WBC Ur Squamous Epith Cells Amorphous Sediment Urine Bacteria Coronavirus 229E ( PCR) SARS-CoV-2 (PCR) 07/25/21 07/25/21 12:15 09:10 WBC RBC Hgb Hct MCV MCH MCHC RDW Plt Count MPV Neut % (Auto) Lymph % (Auto) [place] % (Auto) Eos % (Auto) Baso % (Auto) Neut # (Auto) Lymph # (Auto) [place] # (Auto) Eos # (Auto) Baso # (Auto) Nucleated RBC % (a uto) Nucleated RBCs # Sodium Potassium Chloride Carbon Dioxide Anion Gap BUN Creatinine GFR Calculation Glucose POC Glucose Calculated Osmolal ity Calcium Magnesium Urine Color Straw Urine Appearance Cloudy Urine pH 7 Ur Specific Gravit y 1.005 Urine Protein 2+ H Urine Glucose (UA) Norm Urine Ketones Negative Urine Blood 3+ H Urine Nitrate Negative Urine Bilirubin Neg Urine Urobilinogen Norm Ur Leukocyte Maggie ase 2+ H Urine RBC Too numerous to c nt H Urine WBC Too numerous to c nt H Ur Squamous Epith Cells 0-4 H Amorphous Sediment Not Reportable Urine Bacteria 4+ H Coronavirus 229E ( PCR) Not detected SARS-CoV-2 (PCR) Not detected Vitals: Last Vital Signs Temp 98.6 F 07/26/21 04:00 Pulse 67 07/26/21 08:00 Resp 18 07/26/21 08:00 BP 135/72 07/26/21 08:00 Pulse Ox 94 07/26/21 08:00 Discharge Plan Discharge Patient Disposition: Home Health Service Condition: Stable Prescriptions: New bumetanide 1 mg tablet 1 mg PO BID Qty: 60 RF: 0 cefdinir 300 mg capsule 300 mg PO BID 10 Days Qty: 20 RF: 0 Continued (DME) oxygen-air delivery systems Device See Rx Instructions .ROUTE .MEDSUPPLY Qty: 1 RF: 0 albuterol sulfate 90 mcg/actuation HFA aerosol inhaler 2 puff inhalation QID PRN (Reason: Shortness Of Breath) RF: 0 atorvastatin [Lipitor] 80 mg Tablet 80 mg PO BEDTIME RF: 0 omeprazole 40 mg Capsule,Delayed Release(Dr/Ec) 40 mg PO DAILY RF: 0 montelukast [Singulair] 10 mg Tablet 10 mg PO BEDTIME RF: 0 aspirin 81 mg Tablet,Delayed Release (Dr/Ec) 81 mg PO DAILY RF: 0 atenolol [Tenormin] 100 mg tablet 100 mg PO DAILY RF: 0 Dulera 200-5 mcg/actuation HFA aerosol inhaler 2 puff INHALATION BID RF: 0 allopurinol 100 mg tablet 100 mg PO DAILY RF: 0 lisinopril 5 mg tablet 5 mg PO DAILY RF: 0 Janumet 50-1,000 mg tablet 1 tab PO BID RF: 0 Klor-Con M20 20 mEq tablet,ER particles/crystals 20 meq PO DAILY RF: 0 Voltaren Arthritis Pain 1 % gel 2 g topical QID PRN (Reason: Pain) RF: 0 folic acid 1 mg tablet 1 mg PO DAILY RF: 0 ferrous sulfate 325 mg (65 mg iron) tablet 325 mg PO DAILY RF: 0 Levemir FlexTouch U-100 Insuln 100 unit/mL (3 mL) insulin pen See Rx Instructions .ROUTE .COMPLEX RF: 0 tamsulosin 0.4 mg capsule 0.4 mg PO DAILY RF: 0 ziprasidone HCl 40 mg capsule 40 mg PO DAILY@17 RF: 0 sertraline 50 mg tablet 50 mg PO DAILY RF: 0 acetaminophen [Tylenol] 325 mg capsule 325 mg PO Q6H PRN (Reason: pain) Qty: 14 RF: 0 Changed glipizide 10 mg Tablet Extended Release 24hr 10 mg PO QAM Qty: 30 RF: 1 Discontinued furosemide 40 mg tablet 40 mg PO BID 30 Days Qty: 60 RF: 3 cyclobenzaprine 5 mg tablet 5 mg PO BID PRN (Reason: muscle spasm) Qty: 10 RF: 0 Discharge Orders: Discharge Order (Routine); Ordered 07/26/21 Ordered By: Anthony Michaels Referrals: Stewart Rosario MD [Primary Care Provider] - 1-3 days (CBC and BMP on follow- up) Discharge Diet: Cardiac and Diabetic Discharge Activity: Increase activity as tolerated Patient Instructions: Opioid Safety Activity Restrictions/Additional Instructions: Please review, set up check of patient's CPAP to ensure this is working appropriately and fitting appropriately prior to discharge. Resume patient's home health and district home economics agent on discharge Note there have been changes in Bumex, reduction in glipizide Resume his home oxygen 2 L nasal cannula, during the day, but always using CPAP at night, and during the day when napping. CBC and BMP on follow-up with primary care provider in 3 days Discharge Attestations Time Spent in Discharge Care*: greater than 30 min Status at Discharge: Cognitive status at discharge: cognitively intact , Behavioral status at discharge: cooperative , Quality Metrics Clinical Quality Measures During this hospital stay, did patient experience: None Coding Level of Care Code Acute g FW DC note Diagnoses Hypoxia R09.02 Headache R51.9 Acute diastolic heart failure I50.31 Anemia D50.9 Anemia type: iron deficiency Iron deficiency anemia type: unspecified iron deficiency Morbid (severe) obesity due to excess calories E66.01 UTI (urinary tract infection) N39.0
[2021-07-26 11:17] LABS: Glucose Point of Care 147 mg/dL (70-110)
[2021-07-26] MEDS: insulin lispro 100 unit/1 mL SUBCUT (12:20)
[2021-07-26] MEDS: cefTRIAXone 1,000 MG in sodium chloride 0.9% (plus) 50 ML 100 MG IV (12:20)
[2021-07-26] MEDS: cefdinir 300 MG CAPSULE PO (12:20)
[2021-07-26 20:59] LABS: Glucose Point of Care 103 mg/dL (70-110)
== END 2021-07-26 14:30 | disposition home health service (06) ==
LOC: ER 13:24 → MEDSURG 17:16
PROVIDERS: Admitting Provider Internal Medicine; Emergency Provider Family Medicine; PCP Family Medicine; Visit Provider Internal Medicine
DX: R09.02 Hypoxemia (principal); R51.9 Headache, unspecified; I11.0 Hypertensive heart disease with heart failure; I50.31 Acute diastolic (congestive) heart failure; F50.9 Eating disorder, unspecified; E66.01 Morbid (severe) obesity due to excess calories; Z68.44 Body mass index [BMI] 60.0-69.9, adult; N39.0 Urinary tract infection, site not specified; D50.9 Iron deficiency anemia, unspecified; Z79.82 Long term (current) use of aspirin; Z79.4 Long term (current) use of insulin; Z91.81 History of falling; E11.9 Type 2 diabetes mellitus without complications; E78.2 Mixed hyperlipidemia; G47.33 Obstructive sleep apnea (adult) (pediatric); Z82.49 Family history of ischemic heart disease and other diseases of the circulatory system; Z82.3 Family history of stroke
CPT/HCPCS: 36415; 36416; 36600; 71045; 74176; 80048; 80051; 80053; 81001; 82330; 82550; 82805; 82962; 83605; 83735; 85025; 87040; 87077; 87086; 87150; 87186; 87205; 87635; 93005; 94640; 94660; 96365; 96372; 96375; 99291; G0378; J0696; J1650; J1815; J1940; J2550; J7626

== ENCOUNTER 2021-07-28 16:19 | Outpatient (CLI) | payer MEDICAID, SELFPAY ==
[2021-07-29 16:57] LABS: Bacillus cereus group Not Detected (NOT DETECT); Bacillus subtillis group Not Detected (NOT DETECT); Corynebacterium Not Detected (NOT DETECT); Cutibacterium acnes (P.acnes) Not Detected (NOT DETECT); Enterococcus Not Detected (NOT DETECT); Enterococcus faecalis Not Detected (NOT DETECT); Enterococcus faecium Not Detected (NOT DETECT); Lactobacillus species Not Detected (NOT DETECT); Listeria Not Detected (NOT DETECT); Listeria monocytogenes Not Detected (NOT DETECT); Micrococcus Not Detected (NOT DETECT); Pan Candida Not Detected (NOT DETECT); Pan Gram-Negative Not Detected (NOT DETECT); Staphylococcus epidermidis Detected (NOT DETECT); Staphylococcus lugdunensis Not Detected (NOT DETECT); Staphylococcus species Detected (NOT DETECT); Streptococcus agalactiae Not Detected (NOT DETECT); Streptococcus anginosus group Not Detected (NOT DETECT); Streptococcus pneumoniae Not Detected (NOT DETECT); Streptococcus pyogenes Not Detected (NOT DETECT); Streptococcus species Not Detected (NOT DETECT); mecC Not Detected (NOT DETECT)
[2021-07-29 16:59] LABS: mecA Detected (NOT DETECT)
--- NOTE | 2021-08-03 13:30 | PC.SOCIAL ---
Blood Culture results from previous visit discussed with Dr Michaels. He wanted the BC repeated. BC repeated and 1 of 3 bottles returned with same bacteria and noted to be probable contaminate. Discussed with Dr Michaels and he agreed that this is likely a contaminant and no further treatment orders needed. Called patient and updated him. He was not understanding that this bacteria is one that is normally found on the skin and not likely infection in blood stream. He was advised to discuss all information with PCP Dr Rosario. Faxed all information to Dr Rosario office tried to call but unable to reach anyone. Sent Dr Rosario a secure email to notify him that fax was sent since unable to reach anyone in clinic. Requested a read receipt. Fax confirmation received that fax was transmitted successfully.
--- NOTE | 2021-08-03 13:44 | PC.SOCIAL ---
Email sent to Dr Rosario for follow up on cultures: Arnol Mares Dr : 1970 was discharged 07/26/2021 and Blood Cultures returned showing Staphylococcus Epidermis in 4/[address] Michaels and repeat blood cultures ordered. Results ?returned indicating 1 of 3 bottles positive and probable contaminant. Dr Michaels reviewed and agreed probably contaminant. Having? a hard time explaining this to patient and advised him to follow up with you. Both sets of culture results have been sent to you via fax with confirmation they were sent successfully. Thank you Codie
== END 2021-07-28 16:20 | disposition home or self-care (01) ==
LOC: LAB 16:23
PROVIDERS: PCP Family Medicine; Visit Provider Internal Medicine
DX: R78.81 Bacteremia (principal)
CPT/HCPCS: 87040; 87150; 87205

== ENCOUNTER 2021-08-05 11:23 | Emergency (ER) | payer MEDICAID, SELFPAY ==
[2021-08-05 11:33] VITALS: BP 146/74; PULSE 93; RESP 20; TEMP 37.1; O2SAT 95; BMI 64.2
--- NOTE | 2021-08-05 11:46 | W.ED.HA ---
HPI - Headache General: Chief Complaint: Headache Stated Complaint: HEADACHE Time Seen by Provider: 08/05/21 11:40 History of Present Illness: Patient arrives via ambulance with a complaint of a headache. Patient says started have a headache about 30 minutes after he woke up and so he called the ambulance. Headache is now gone he feels much better. Onset (ago): hour(s) Onset description: gradually Review of Systems General: Reports: 10 or more systems reviewed and unremarkable except in HPI and below Narrative: Blood sugars are in normal range for him he says Neuro: Reports: headache(s) (Headache is now gone.) [facility] PFS: Medical History (Updated 08/05/21 @ 11:44 by RACHEL Gamble) Anemia -has chronic iron deficiency anemia, baseline Hg is around 9-10 Chest pain CHF (congestive heart failure) -Echo (07/2019): EF=68%, normal diastolic function, no RWMA -on oral lasix -no acute exacerbation currently Decubitus ulcer limited to breakdown of skin (stage 2) Diabetes -NIDDM type II -A1c (11/2019): 8.2 -Accuchecks, ISS, hypoglycemia precautions -consistent carb diet -anticipate hyperglycemia with steroid use Gout Hyperlipemia, mixed Hypertension -VSS; continue to monitor -continue oral antihypertensives Morbid (severe) obesity due to excess calories OPAL (obstructive sleep apnea) -in the process of getting CPAP set up Pneumonia Psychiatric care Transient cerebral ischemia Surgical History History of adenoidectomy History of hernia repair History of tonsillectomy History of umbilical hernia repair Family History Mother Hypertension CAD (coronary artery disease) Stroke Social History Smoking and tobacco status: never smoked Second hand smoke exposure: Yes Alcohol intake: never Adopted: No Caregiver/support person: No Lives independently: Yes Household members: family and friend(s) Housing: Manufactured/Mobile home Marital status: Single Number of children: 0 Number of grandchildren: 0 Highest education level completed: 8th Grade service: No Current occupational status: disabled Pets and animals: No History of recent travel: No Leisure activites: other Leisure activities details: play card games Sexually active: No Current gender identity: Male Yolanda/Lutheran: Other Special yolanda needs: No Agree to transfusion: Yes Financial difficulty paying for basics: Hard Physical Exam Narrative: EXAM NARRATIVE: Does not appear in any acute distress Const: COMMON NORMALS: no acute distress, patient oriented x3 and well nourished (And obese) HENMT: COMMON NORMALS: normocephalic HEAD & SCALP: normal to inspection and normocephalic FACE & SINUS: normal facial exam Eye: COMMON NORMALS: conjunctivae normal GENERAL EYE: appearance normal, both eyes and all related structures CONJUNCTIVA: Yes conjunctivae normal OTHER: Does have a lazy eye, pupils are reactive Neck/C-Spine: COMMON NORMALS: no JVD Chest: COMMONS NORMALS: normal inspection of the chest Resp: COMMON NORMALS: normal respiratory effort and clear to auscultation bilaterally AUSCULTATION: clear to auscultation bilaterally Cardio: COMMON NORMALS: no JVD, regular rate and regular rhythm RATE: regular rate RHYTHM: regular rhythm GI: COMMON NORMALS: Normal to inspection, nondistended, normoactive bowel sounds present Extremity: COMMON NORMALS: normal to inspection and full ROM Neuro: COMMON NORMALS: patient oriented x3 SPEECH: speech normal Course Vital Signs: Vital signs: Vital Signs Temperature 98.7 F 08/05/21 11:33 Pulse Rate 93 08/05/21 11:33 Respiratory Rate 20 H 08/05/21 11:33 Blood Pressure 146/74 08/05/21 11:33 Pulse Oximetry 95 08/05/21 11:33 MDM - Headache Medical Decision Making Headache. Has no other complaints problems this time patient discharged home. Discharge Plan Discharge Patient Disposition: Home Clinical Impression: Headache Condition: Stable Prescriptions: New Fioricet 50-300-40 mg capsule 1 cap PO Q6H PRN (Reason: pain) Qty: 14 0RF No Action (DME) oxygen-air delivery systems Device See Rx Instructions .ROUTE .MEDSUPPLY Qty: 1 0RF Rx Instructions: As directed albuterol sulfate 90 mcg/actuation HFA aerosol inhaler 2 puff inhalation QID PRN (Reason: Shortness Of Breath) 0RF atorvastatin [Lipitor] 80 mg Tablet 80 mg PO BEDTIME 0RF omeprazole 40 mg Capsule,Delayed Release(Dr/Ec) 40 mg PO DAILY 0RF montelukast [Singulair] 10 mg Tablet 10 mg PO BEDTIME 0RF aspirin 81 mg Tablet,Delayed Release (Dr/Ec) 81 mg PO DAILY 0RF atenolol [Tenormin] 100 mg tablet 100 mg PO DAILY 0RF Dulera 200-5 mcg/actuation HFA aerosol inhaler 2 puff INHALATION BID 0RF allopurinol 100 mg tablet 100 mg PO DAILY 0RF lisinopril 5 mg tablet 5 mg PO DAILY 0RF Janumet 50-1,000 mg tablet 1 tab PO BID 0RF Klor-Con M20 20 mEq tablet,ER particles/crystals 20 meq PO DAILY 0RF Voltaren Arthritis Pain 1 % gel 2 g topical QID PRN (Reason: Pain) 0RF Rx Instructions: apply to single elbow, wrist or hand; for hand includes palm/fingers/back of hand bumetanide 1 mg tablet 1 mg PO BID Qty: 60 0RF glipizide 10 mg Tablet Extended Release 24hr 10 mg PO QAM Qty: 30 1RF folic acid 1 mg tablet 1 mg PO DAILY 0RF ferrous sulfate 325 mg (65 mg iron) tablet 325 mg PO DAILY 0RF Levemir FlexTouch U-100 Insuln 100 unit/mL (3 mL) insulin pen See Rx Instructions .ROUTE .COMPLEX 0RF Rx Instructions: sliding scale prn (pt states he has but hasnt used in 6 months or longer) tamsulosin 0.4 mg capsule 0.4 mg PO DAILY 0RF ziprasidone HCl 40 mg capsule 40 mg PO DAILY@17 0RF sertraline 50 mg tablet 50 mg PO DAILY 0RF acetaminophen [Tylenol] 325 mg capsule 325 mg PO Q6H PRN (Reason: pain) Qty: 14 0RF Discharge Orders: Discharge ED (Routine); Ordered 08/05/21 Ordered By: Francisco Javier Buckley Referrals: Stewart Rosario MD [Primary Care Provider] - Discharge Diet: Usual diet Discharge Activity: Resume usual activity Patient Instructions: Headache Activity Restrictions/Additional Instructions: Follow-up with medical provider as directed. Take medications as prescribed. Return to the ER or your medical provider if condition worsens. Please read and understand discharge instructions. If any questions ask please. Coding Level of Care Code ED Public Employment Mediator for Chg Fwd Exam Comprehensive
== END 2021-08-05 13:09 | disposition home or self-care (01) ==
PROVIDERS: Emergency Provider Nurse Practitioner Family; PCP Family Medicine
DX: R51.9 Headache, unspecified (principal); Z79.82 Long term (current) use of aspirin; Z79.4 Long term (current) use of insulin; I11.0 Hypertensive heart disease with heart failure; I50.9 Heart failure, unspecified; E11.9 Type 2 diabetes mellitus without complications; E78.2 Mixed hyperlipidemia; Z77.22 Contact with and (suspected) exposure to environmental tobacco smoke (acute) (chronic)
CPT/HCPCS: 99282

== ENCOUNTER 2021-08-12 17:14 | Emergency (ER) | payer MEDICAID, SELFPAY ==
[2021-08-12 17:20] VITALS: BP 141/67; PULSE 71; RESP 20; TEMP 36.9; O2SAT 93; BMI 64.2
--- NOTE | 2021-08-12 18:15 | W.ED.PSYCHS ---
HPI - Psych General: Chief Complaint: Psychiatric Symptoms Stated Complaint: SI Time Seen by Provider: 08/12/21 17:38 Source: patient Mode of arrival: ambulatory Limitations: no limitations History of Present Illness: 51-year-old male who is very well-known to the ER. He states he been having increasing depression over the last 2 days with some hallucinations. He states he been having some thoughts of suicide but no active plan. He states that he voluntarily wants to get help for his depression before he becomes suicidal. Denies any worsening improving factors. Associated symptoms: Reports depression Review of Systems Const: Denies: fever(s), chills, body aches or change in appetite Eyes: Denies: blurry vision or eye discomfort ENMT: Denies: throat pain or dental pain Card: Denies: chest pain Resp: Denies: dyspnea GI: Denies: abdominal pain, nausea, vomiting or diarrhea : Denies: dysuria Musc: Denies: neck pain or back pain Skin/Breast: Denies: rash Neuro: Denies: headache(s) Psych: Reports: depression Mendel/Lymph: Denies: easy bruising All/Imm: Denies: urticaria PFSH ED PFSH: Medical History (Updated 08/12/21 @ 20:16 by Jesús Pickard MD) Anemia -has chronic iron deficiency anemia, baseline Hg is around 9-10 Chest pain CHF (congestive heart failure) -Echo (07/2019): EF=68%, normal diastolic function, no RWMA -on oral lasix -no acute exacerbation currently Decubitus ulcer limited to breakdown of skin (stage 2) Diabetes -NIDDM type II -A1c (11/2019): 8.2 -Accuchecks, ISS, hypoglycemia precautions -consistent carb diet -anticipate hyperglycemia with steroid use Gout Hyperlipemia, mixed Hypertension -VSS; continue to monitor -continue oral antihypertensives Morbid (severe) obesity due to excess calories OPAL (obstructive sleep apnea) -in the process of getting CPAP set up Pneumonia Psychiatric care Transient cerebral ischemia Surgical History History of adenoidectomy History of hernia repair History of tonsillectomy History of umbilical hernia repair Family History Mother Hypertension CAD (coronary artery disease) Stroke Social History Smoking and tobacco status: never smoked Second hand smoke exposure: Yes Alcohol intake: never Adopted: No Caregiver/support person: No Lives independently: Yes Household members: family and friend(s) Housing: Manufactured/Mobile home Marital status: Single Number of children: 0 Number of grandchildren: 0 Highest education level completed: 8th Grade service: No Current occupational status: disabled Pets and animals: No History of recent travel: No Leisure activites: other Leisure activities details: play card games Sexually active: No Current gender identity: Male Yolanda/Sabianist: Other Special yolanda needs: No Agree to transfusion: Yes Financial difficulty paying for basics: Hard Physical Exam Const: COMMON NORMALS: no acute distress, patient oriented x3 and healthy appearing HENMT: COMMON NORMALS: normocephalic and atraumatic HEAD & SCALP: normocephalic and atraumatic Eye: COMMON NORMALS: Equal, round and reactive pupils present and EOMs intact bilaterally PUPIL: Yes Equal, round and reactive pupils present Neck/C-Spine: COMMON NORMALS: full ROM and supple Chest: COMMONS NORMALS: normal inspection of the chest and normal palpation of entire chest wall Resp: COMMON NORMALS: normal respiratory effort, No retractions, No use of accessory muscles and clear to auscultation bilaterally AUSCULTATION: clear to auscultation bilaterally Cardio: COMMON NORMALS: regular rate, regular rhythm and No murmurs present (Cardio) RATE: regular rate RHYTHM: regular rhythm GI: COMMON NORMALS: Normal to inspection, nondistended, normoactive bowel sounds present, Soft to palpation, non-tender and no masses PALPATION: Yes Soft to palpation Extremity: COMMON NORMALS: normal to inspection and full ROM Neuro: COMMON NORMALS: patient oriented x3, moves all extremities and no focal motor deficits Psych: COMMON NORMALS: mental status grossly normal, Normal thought process present and cooperative THOUGHT PROCESS: Normal thought process present Skin: COMMON NORMALS: no rashes or lesions noted and no wounds GENERAL SKIN EXAM: no rashes or lesions noted Course Vital Signs: Vital signs: Vital Signs Temperature 98.4 F 08/12/21 17:20 Pulse Rate 82 08/12/21 20:40 Respiratory Rate 16 08/12/21 20:40 Blood Pressure 141/67 08/12/21 17:20 Pulse Oximetry 98 08/12/21 20:40 MDM - Psych Medical Decision Making Lisandra presents here with depression is chronic in nature he has no acute suicidal ideation here. I had him evaluated by Dr. Kelley who knows patient is well after his evaluation he feels that he is not an active threat to himself I talked to Arnol as well he is not actively suicidal he is to follow-up with [facility] return if worsening he understands agrees to plan. Lab Data : 08/12/21 18:05 08/12/21 18:05 Laboratory Results WBC 5.6 10^3/uL (4.0-10.0) 08/12/21 18:05 RBC 4.06 10^6/uL (4.1-5.3) L 08/12/21 18:05 Hgb 8.9 g/dL (11.7-16.6) L 08/12/21 18:05 Hct 34.1 % (42.0-52.0) L 08/12/21 18:05 MCV 84.0 fl (80-94) 08/12/21 18:05 MCH 21.9 pg (28.0-34.0) L 08/12/21 18:05 MCHC 26.1 g/dL (30.0-36.0) L 08/12/21 18:05 RDW 20.1 % (12.1-15.1) H 08/12/21 18:05 Plt Count 232 10^3/cmm (130-400) 08/12/21 18:05 MPV 10.0 fL (7.4-10.4) 08/12/21 18:05 Neut % (Auto) 75.1 % 08/12/21 18:05 Lymph % (Auto) 15.5 % 08/12/21 18:05 Bond % (Auto) 7.9 % 08/12/21 18:05 Eos % (Auto) 0.9 % 08/12/21 18:05 Baso % (Auto) 0.4 % 08/12/21 18:05 Neut # (Auto) 4.18 10^3/uL (1.8-7.7) 08/12/21 18:05 Lymph # (Auto) 0.9 10^3/uL (0.8-4.8) 08/12/21 18:05 Bond # (Auto) 0.4 10^3/uL (0.2-0.9) 08/12/21 18:05 Eos # (Auto) 0.1 10^3/uL (0.0-0.8) 08/12/21 18:05 Baso # (Auto) 0.0 10^3/uL (0.0-0.1) 08/12/21 18:05 Nucleated RBC % (auto) 0 % 08/12/21 18:05 Nucleated RBCs # 0.0 /100WBC 08/12/21 18:05 Sodium 146 mmol/L (136-145) H 08/12/21 18:05 Potassium 4.0 mmol/L (3.5-5.1) 08/12/21 18:05 Chloride 102 mmol/L (98-107) 08/12/21 18:05 Carbon Dioxide 33 mmol/L (22-29) H 08/12/21 18:05 Anion Gap 15.0 (5-19) 08/12/21 18:05 BUN 17 mg/dL (6-20) 08/12/21 18:05 Creatinine 1.3 mg/dL (0.7-1.2) H 08/12/21 18:05 GFR Calculation 58.7 mL/min (90-130) L 08/12/21 18:05 Glucose 83 mg/dL (65-115) 08/12/21 18:05 Calculated Osmolality 303 mOsm/kg (285-295) H 08/12/21 18:05 Calcium 8.6 mg/dL (8.5-10.5) 08/12/21 18:05 Total Bilirubin 0.9 mg/dL (0.15-1.2) 08/12/21 18:05 AST 15 U/L (0-40) 08/12/21 18:05 ALT 13 U/L (0-41) 08/12/21 18:05 Alkaline Phosphatase 264 IU/L (40-130) H 08/12/21 18:05 Total Protein 7.1 g/dL (6.6-8.7) 08/12/21 18:05 Albumin 3.8 g/dL (3.5-5.2) 08/12/21 18:05 Globulin 3.3 g/dL (1.3-4.6) 08/12/21 18:05 Salicylates < 0.3 mg/dL (3-10) L 08/12/21 18:05 Acetaminophen < 5.0 ug/mL (10-30) L 08/12/21 18:05 Ethyl Alcohol < 10 mg/dL (0-10) 08/12/21 18:05 Discharge Plan Discharge Patient Disposition: Home Clinical Impression: Depression Condition: Stable Prescriptions: No Action (DME) oxygen-air delivery systems Device See Rx Instructions .ROUTE .MEDSUPPLY Qty: 1 0RF Rx Instructions: As directed albuterol sulfate 90 mcg/actuation HFA aerosol inhaler 2 puff inhalation QID PRN (Reason: Shortness Of Breath) 0RF atorvastatin [Lipitor] 80 mg Tablet 80 mg PO BEDTIME 0RF omeprazole 40 mg Capsule,Delayed Release(Dr/Ec) 40 mg PO DAILY 0RF montelukast [Singulair] 10 mg Tablet 10 mg PO BEDTIME 0RF aspirin 81 mg Tablet,Delayed Release (Dr/Ec) 81 mg PO DAILY 0RF atenolol [Tenormin] 100 mg tablet 100 mg PO DAILY 0RF Dulera 200-5 mcg/actuation HFA aerosol inhaler 2 puff INHALATION BID 0RF allopurinol 100 mg tablet 100 mg PO DAILY 0RF lisinopril 5 mg tablet 5 mg PO DAILY 0RF Janumet 50-1,000 mg tablet 1 tab PO BID 0RF Klor-Con M20 20 mEq tablet,ER particles/crystals 20 meq PO DAILY 0RF Voltaren Arthritis Pain 1 % gel 2 g topical QID PRN (Reason: Pain) 0RF Rx Instructions: apply to single elbow, wrist or hand; for hand includes palm/fingers/back of hand bumetanide 1 mg tablet 1 mg PO BID Qty: 60 0RF glipizide 10 mg Tablet Extended Release 24hr 10 mg PO QAM Qty: 30 1RF folic acid 1 mg tablet 1 mg PO DAILY 0RF ferrous sulfate 325 mg (65 mg iron) tablet 325 mg PO DAILY 0RF Levemir FlexTouch U-100 Insuln 100 unit/mL (3 mL) insulin pen See Rx Instructions .ROUTE .COMPLEX 0RF Rx Instructions: sliding scale prn (pt states he has but hasnt used in 6 months or longer) tamsulosin 0.4 mg capsule 0.4 mg PO DAILY 0RF ziprasidone HCl 40 mg capsule 40 mg PO DAILY@17 0RF sertraline 50 mg tablet 50 mg PO DAILY 0RF acetaminophen [Tylenol] 325 mg capsule 325 mg PO Q6H PRN (Reason: pain) Qty: 14 0RF Fioricet 50-300-40 mg capsule 1 cap PO Q6H PRN (Reason: pain) Qty: 14 0RF Discharge Orders: Discharge ED (Routine); Ordered 08/12/21 Ordered By: Jesús Pickard Referrals: Stewart Rosario MD [Primary Care Provider] - Discharge Diet: Advance as tolerated Discharge Activity: Resume usual activity Patient Instructions: Depression (ED) Coding Level of Care Code ED Buildings And Grounds Coordinator for Zac Fwharper Exam Comprehensive
[2021-08-12 18:19] LABS: Basophils % 0.4 %; Eosinophils # 0.1 10^3/uL (0.0-0.8); Eosinophils % 0.9 %; Hematocrit 34.1 % (42.0-52.0); Hemoglobin 8.9 g/dL (11.7-16.6); Lymphocytes # 0.9 10^3/uL (0.8-4.8); Lymphocytes % 15.5 %; Mean Corpuscular HGB Conc 26.1 g/dL (30.0-36.0); Mean Corpuscular Hemoglobin 21.9 pg (28.0-34.0); Monocytes # 0.4 10^3/uL (0.2-0.9); Monocytes % 7.9 %; Neutrophils # 4.18 10^3/uL (1.8-7.7); Neutrophils % 75.1 %; Nucleated Red Blood Cells % 0 %; Platelet Count 232 10^3/cmm (130-400); Red Blood Count 4.06 10^6/uL (4.1-5.3); Red Cell Distribution Width 20.1 % (12.1-15.1); White Blood Count 5.6 10^3/uL (4.0-10.0)
[2021-08-12 18:42] LABS: Alanine Aminotransferase 13 U/L (0-41); Albumin Level 3.8 g/dL (3.5-5.2); Alkaline Phosphatase 264 IU/L (40-130); Aspartate Amino Transferase 15 U/L (0-40); Blood Urea Nitrogen 17 mg/dL (6-20); Calcium 8.6 mg/dL (8.5-10.5); Carbon Dioxide 33 mmol/L (22-29); Chloride 102 mmol/L (98-107); Globulin 3.3 g/dL (1.3-4.6); Glomerular Filtration Rate 58.7 mL/min (90-130); Glucose 83 mg/dL (65-115); Osmolality Calculated 303 mOsm/kg (285-295); Sodium 146 mmol/L (136-145); Total Bilirubin 0.9 mg/dL (0.15-1.2); Total Protein 7.1 g/dL (6.6-8.7)
[2021-08-12 18:43] LABS: Acetaminophen < 5.0 ug/mL (10-30); Alcohol Level < 10 mg/dL (0-10); Salicylate < 0.3 mg/dL (3-10)
[2021-08-12 20:40] VITALS: PULSE 82; RESP 16; O2SAT 98
== END 2021-08-12 20:42 | disposition home or self-care (01) ==
PROVIDERS: Physician Assistant; Emergency Provider Emergency Medicine; PCP Family Medicine
DX: F32.A Depression, unspecified (principal); Z79.84 Long term (current) use of oral hypoglycemic drugs; Z79.82 Long term (current) use of aspirin; Z79.4 Long term (current) use of insulin; I11.0 Hypertensive heart disease with heart failure; I50.9 Heart failure, unspecified; E11.9 Type 2 diabetes mellitus without complications; E78.2 Mixed hyperlipidemia; Z77.22 Contact with and (suspected) exposure to environmental tobacco smoke (acute) (chronic)
CPT/HCPCS: 80053; 80307; 85025; 99283

== ENCOUNTER 2021-08-16 09:46 | Emergency (ER) | payer MEDICAID, SELFPAY ==
[2021-08-16 09:52] VITALS: BP 156/72; PULSE 72; RESP 24; TEMP 36.7; O2SAT 92; BMI 64.2
--- NOTE | 2021-08-16 09:57 | XR_ITS ---
WS: [id number] XR chest 1V portable [id number] REASON FOR EXAM: dyspnea/cough FINDINGS: Chest is unchanged compared to 07/25/2021. The heart is mildly enlarged. Prominent azygos vein. No active pulmonary parenchymal or pleural disease is identified. Elevation of the right hemidiaphragm. XR/XR chest 1V portable [id number] IMPRESSION: The chest is stable with no acute abnormality.
--- NOTE | 2021-08-16 09:58 | ECG_ITS ---
[facility] Test Date: 2021-08-16 Pat Name: Arnol Guzman Department: Room: Gender: Male Admissions Consultant: : 1970 Requested By: Fantasma Olson Order Number: [id number] Bernardino MD: Wali Martinez M.D. Measurements Intervals [place] Rate: 70 P: 80 KS: 154 QRS: 107 QRSD: 97 T: 94 QT: 418 QTc: 452 Interpretive Statements SINUS RHYTHM RIGHT AXIS DEVIATION [QRS AXIS > 100] LOW QRS VOLTAGE IN PRECORDIAL LEADS [QRS DEFLECTION < 1.0 mV IN CHEST LEADS] PATTERN CONSISTENT WITH PULMONARY DISEASE INCOMPLETE RIGHT BUNDLE BRANCH BLOCK [90+ ms QRS DURATION, TERMINAL R IN V1/V2, 40+ ms S IN I/aVL/V4/V5/V6] INTERPRETATION BASED ON A DEFAULT AGE OF 40 YEARS Compared to ECG 07/25/2021 09:23:21 Right-axis deviation now present Ventricular premature complex(es) no longer present Indeterminate axis no longer present Electronically Signed On 08-16-2021 17:10:23 DOOR TO DOOR SALESMAN by Wali Martinez M.D. [id number] liset
--- NOTE | 2021-08-16 10:05 | PC.NURSE ---
Pt placed on continuous ECG, NIBP, and SPO2 on arrival. Call light within reach. Blood received by EMS on arrival.
[2021-08-16 10:06] VITALS: O2SAT 94
[2021-08-16 10:07] VITALS: BP 130/60; PULSE 71; RESP 18; O2SAT 95
[2021-08-16] MEDS: FUROsemide 10 mg/mL SDV 10mL 100 MG IVP (10:09)
[2021-08-16 10:19] LABS: Basophils % 0.4 %; Eosinophils % 0.5 %; Hematocrit 33.5 % (42.0-52.0); Hemoglobin 8.9 g/dL (11.7-16.6); Lymphocytes # 0.9 10^3/uL (0.8-4.8); Mean Corpuscular HGB Conc 26.6 g/dL (30.0-36.0); Mean Corpuscular Hemoglobin 21.9 pg (28.0-34.0); Mean Corpuscular Volume 82.5 fl (80-94); Mean Platelet Volume 9.9 fL (7.4-10.4); Monocytes # 0.5 10^3/uL (0.2-0.9); Monocytes % 8.4 %; Neutrophils # 4.18 10^3/uL (1.8-7.7); Neutrophils % 74.5 %; Nucleated Red Blood Cells % 0 %; Platelet Count 216 10^3/cmm (130-400); Red Blood Count 4.06 10^6/uL (4.1-5.3); White Blood Count 5.6 10^3/uL (4.0-10.0)
[2021-08-16 10:33] LABS: Troponin(5th) Baseline 45 ng/L (0-15)
[2021-08-16 10:35] LABS: Alanine Aminotransferase 13 U/L (0-41); Albumin Level 4.1 g/dL (3.5-5.2); Alkaline Phosphatase 262 IU/L (40-130); Anion Gap 13.5 (5-19); Aspartate Amino Transferase 14 U/L (0-40); Blood Urea Nitrogen 13 mg/dL (6-20); Calcium 8.1 mg/dL (8.5-10.5); Carbon Dioxide 32 mmol/L (22-29); Chloride 96 mmol/L (98-107); Creatine Phosphokinase 46 U/L (39-308); Globulin 2.7 g/dL (1.3-4.6); Glomerular Filtration Rate 79.4 mL/min (90-130); Glucose 150 mg/dL (65-115); Magnesium 1.8 mg/dL (1.7-2.3); Osmolality Calculated 289 mOsm/kg (285-295); Potassium 3.5 mmol/L (3.5-5.1); Sodium 138 mmol/L (136-145); Total Bilirubin 1.1 mg/dL (0.15-1.2); Total Protein 6.8 g/dL (6.6-8.7)
--- NOTE | 2021-08-16 10:35 | ED_ITS ---
HPI - Chest Pain General: Chief Complaint: Chest Pain Stated Complaint: CHEST PAIN, DIFF BREATHING Time Seen by Provider: 08/16/21 09:49 Source: patient Mode of arrival: EMS Limitations: no limitations History of Present Illness: Super morbidly obese 51-year-old male with a history of CHF comes in complaining of difficulty breathing and chest discomfort. He was given nitro and aspirin in route patient says he has no pain at this time. He denies any fever sweats chills or productive cough no vomiting or diarrhea. No abdominal pain. Since the nitro is not had any further chest pain. MD complaint: chest pain Onset (ago): hour(s) Timing of current episode: episodic Prior episodes: Yes Onset: during rest Pain location: left chest Pain radiation: none Severity: moderate Quality: aching and heaviness Relieving factors: nitroglycerin Exacerbating factors: nothing Associated symptoms: Reports abdominal pain and leg edema; Deny diaphoresis, dyspnea, fever(s), nausea, palpitations, sense of impending doom, syncope or vomiting Treatment prior to arrival: none Review of Systems Const: Denies: fever(s) or diaphoresis Card: Denies: palpitations or syncope Resp: Denies: dyspnea GI: Reports: abdominal pain; Denies: nausea or vomiting [facility] ED PFSH: Medical History Anemia -has chronic iron deficiency anemia, baseline Hg is around 9-10 Chest pain CHF (congestive heart failure) -Echo (07/2019): EF=68%, normal diastolic function, no RWMA -on oral lasix -no acute exacerbation currently Decubitus ulcer limited to breakdown of skin (stage 2) Diabetes -NIDDM type II -A1c (11/2019): 8.2 -Accuchecks, ISS, hypoglycemia precautions -consistent carb diet -anticipate hyperglycemia with steroid use Gout Hyperlipemia, mixed Hypertension -VSS; continue to monitor -continue oral antihypertensives Morbid (severe) obesity due to excess calories OPAL (obstructive sleep apnea) -in the process of getting CPAP set up Pneumonia Psychiatric care Transient cerebral ischemia Surgical History History of adenoidectomy History of hernia repair History of tonsillectomy History of umbilical hernia repair Family History Mother Hypertension CAD (coronary artery disease) Stroke Social History Smoking and tobacco status: never smoked Second hand smoke exposure: Yes Alcohol intake: never Adopted: No Caregiver/support person: No Lives independently: Yes Household members: family and friend(s) Housing: Manufactured/Mobile home Marital status: Single Number of children: 0 Number of grandchildren: 0 Highest education level completed: 8th Grade service: No Current occupational status: disabled Pets and animals: No History of recent travel: No Leisure activites: other Leisure activities details: play card games Sexually active: No Current gender identity: Male Yolanda/Adventist: Other Special yolanda needs: No Agree to transfusion: Yes Financial difficulty paying for basics: Hard Physical Exam Const: GENERAL APPEARANCE: cooperative ORIENTATION/CONSCIOUSNESS: Yes awake, Yes oriented to person, Yes oriented to place and Yes oriented to time HENMT: COMMON NORMALS: normocephalic, atraumatic and hearing grossly normal bilaterally HEAD & SCALP: normocephalic and atraumatic Neck/C-Spine: COMMON NORMALS: no JVD Resp: COMMON NORMALS: normal respiratory effort, No retractions, No use of accessory muscles and clear to auscultation bilaterally AUSCULTATION: clear to auscultation bilaterally Cardio: COMMON NORMALS: no JVD, regular rate, regular rhythm and No murmurs p resent (Cardio) RATE: regular rate RHYTHM: regular rhythm GI: COMMON NORMALS: Soft to palpation and No hepatosplenomegaly present AUSCULTATION: Yes normoactive bowel sounds PALPATION: Yes Soft to palpation, No Tenderness to palpation present (GI), No Guarding due to palpation present (GI) and Yes No hepatosplenomegaly present Extremity: COMMON NORMALS: normal to inspection, capillary refill normal and no calf tenderness GENERAL: Yes edema (1+ lower extremity extending up to the umbilicus with anasarca of the lower) Neuro: SENSORIUM/ORIENTATION: Yes oriented to person, Yes oriented to place and Yes oriented to time Skin: COMMON NORMALS: no rashes or lesions noted GENERAL SKIN EXAM: no rashes or lesions noted Course Vital Signs: Vital signs: Vital Signs Temperature 98.1 F 08/16/21 09:52 Pulse Rate 78 08/16/21 14:47 Respiratory Rate 20 H 08/16/21 14:47 Blood Pressure 135/65 08/16/21 14:47 Pulse Oximetry 97 08/16/21 14:47 MDM - Chest Pain Medical Decision Making Patient improved after diuresis at the bedside. He is chronically anemic and this is unchanged. His chronic fluid overload as well in general he is somewhat better I do not think he needs to be hospitalized at this point. His pH is normal he is retaining some oxygen but he has chronic hypercapnia. We will go ahead and discharge patient home continue current medications follow-up with primary care doctor in 2 days. Medical Records I reviewed the patient's medical records. Lab Data I reviewed the patient's lab results. : 08/16/21 09:35 08/16/21 09:35 Radiology Impressions Chest X-Ray 08/16/21 09:57 IMPRESSION: The chest is stable with no acute abnormality. Laboratory Results WBC 5.6 10^3/uL (4.0-10.0) 08/16/21 09:35 RBC 4.06 10^6/uL (4.1-5.3) L 08/16/21 09:35 Hgb 8.9 g/dL (11.7-16.6) L 08/16/21 09:35 Hct 33.5 % (42.0-52.0) L 08/16/21 09:35 MCV 82.5 fl (80-94) 08/16/21 09:35 MCH 21.9 pg (28.0-34.0) L 08/16/21 09:35 MCHC 26.6 g/dL (30.0-36.0) L 08/16/21 09:35 RDW 20.0 % (12.1-15.1) H 08/16/21 09:35 Plt Count 216 10^3/cmm (130-400) 08/16/21 09:35 MPV 9.9 fL (7.4-10.4) 08/16/21 09:35 Neut % (Auto) 74.5 % 08/16/21 09:35 Lymph % (Auto) 16.0 % 08/16/21 09:35 Lamar % (Auto) 8.4 % 08/16/21 09:35 Eos % (Auto) 0.5 % 08/16/21 09:35 Baso % (Auto) 0.4 % 08/16/21 09:35 Neut # (Auto) 4.18 10^3/uL (1.8-7.7) 08/16/21 09:35 Lymph # (Auto) 0.9 10^3/uL (0.8-4.8) 08/16/21 09:35 Lam[place] # (Auto) 0.5 10^3/uL (0.2-0.9) 08/16/21 09:35 Eos # (Auto) 0.0 10^3/uL (0.0-0.8) 08/16/21 09:35 Baso # (Auto) 0.0 10^3/uL (0.0-0.1) 08/16/21 09:35 Nucleated RBC % (auto) 0 % 08/16/21 09:35 Nucleated RBCs # 0.0 /100WBC 08/16/21 09:35 Specimen Type Arterial 08/16/21 10:51 Sample Site Radial, left 08/16/21 10:51 ABG pH 7.39 (7.35-7.45) 08/16/21 10:51 ABG pCO2 56.1 mmHg (35-45) H 08/16/21 10:51 ABG pO2 72.7 mmHg (80.0-100.0) L 08/16/21 10:51 ABG HCO3 33.8 mmol/L (22-26) H 08/16/21 10:51 ABG O2 Saturation 94.2 08/16/21 10:51 ABG Base Excess 7.6 mmol/L (-2.0-2.0) H 08/16/21 10:51 Luis Test Pos 08/16/21 10:51 A-a O2 Gradient 18.9 mmHg (5-10) H 08/16/21 10:51 Hematocrit 28.3 % (42-52) L 08/16/21 10:51 Hgb O2 Saturation 92.1 % (95-100) L 08/16/21 10:51 Carboxyhemoglobin 1.5 %THgb (0.4-20.1) 08/16/21 10:51 Methemoglobin 0.7 % (0.4-1.5) 08/16/21 10:51 Total Hemoglobin 9.2 g/dL (14-18) L 08/16/21 10:51 Sodium 143.0 mmol/L (131-143) 08/16/21 10:51 Potassium 3.5 mmol/L (3.5-5.0) 08/16/21 10:51 Glucose 135.0 mg/dL (70-115) H 08/16/21 10:51 Ionized Calcium 1.1 mmol/L (1.1-1.4) 08/16/21 10:51 O2 Delivery Device Nc 08/16/21 10:51 O2 Liters/Min 5.0 % 08/16/21 10:51 FiO2 40.0 % 08/16/21 10:51 Promotional Advertising Assistant ID [place] 08/16/21 10:51 Sodium 138 mmol/L (136-145) 08/16/21 09:35 Potassium 3.5 mmol/L (3.5-5.1) 08/16/21 09:35 Chloride 96 mmol/L (98-107) L 08/16/21 09:35 Carbon Dioxide 32 mmol/L (22-29) H 08/16/21 09:35 Anion Gap 13.5 (5-19) 08/16/21 09:35 BUN 13 mg/dL (6-20) 08/16/21 09:35 Creatinine 1.0 mg/dL (0.7-1.2) 08/16/21 09:35 GFR Calculation 79.4 mL/min (90-130) L 08/16/21 09:35 Glucose 150 mg/dL (65-115) H 08/16/21 09:35 Calculated Osmolality 289 mOsm/kg (285-295) 08/16/21 09:35 Lactic Acid 1.4 mmol/L (0.5-2.2) 08/16/21 09:35 Calcium 8.1 mg/dL (8.5-10.5) L 08/16/21 09:35 Magnesium 1.8 mg/dL (1.7-2.3) 08/16/21 09:35 Total Bilirubin 1.1 mg/dL (0.15-1.2) 08/16/21 09:35 AST 14 U/L (0-40) 08/16/21 09:35 ALT 13 U/L (0-41) 08/16/21 09:35 Alkaline Phosphatase 262 IU/L (40-130) H 08/16/21 09:35 Creatine Kinase 46 U/L (39-308) 08/16/21 09:35 Troponin T Baseline 45 ng/L (0-15) H 08/16/21 09:35 Troponin T 120 Minute 43.69 ng/L (0-15) H 08/16/21 12:05 Delta Troponin T -1.31 ABS# (0-10) L 08/16/21 12:05 Total Protein 6.8 g/dL (6.6-8.7) 08/16/21 09:35 Albumin 4.1 g/dL (3.5-5.2) 08/16/21 09:35 Globulin 2.7 g/dL (1.3-4.6) 08/16/21 09:35 Urine Color Yellow (Yellow) 08/16/21 10:55 Urine Appearance Clear (CLEAR) 08/16/21 10:55 Urine pH 5 (5-7) 08/16/21 10:55 Ur Specific [place] 1.015 (1.005-1.030) 08/16/21 10:55 Urine Protein 1+ (Negative) H 08/16/21 10:55 Urine Glucose (UA) Norm (Normal) 08/16/21 10:55 Urine Ketones Negative (Negative) 08/16/21 10:55 Urine Blood Neg (Negative) 08/16/21 10:55 Urine Nitrate Negative (Negative) 08/16/21 10:55 Urine Bilirubin Neg (Negative) 08/16/21 10:55 Urine Urobilinogen Norm mg/dL (Negative) 08/16/21 10:55 Ur Leukocyte Esterase Negative (Negative) 08/16/21 10:55 Urine RBC 0-4 /hpf (0-2) H 08/16/21 10:55 Urine WBC None /hpf (0-5) 08/16/21 10:55 Ur Squamous Epith Cells 0-4 /hpf (0-5) H 08/16/21 10:55 Amorphous Sediment Not Reportable 08/16/21 10:55 Urine Bacteria Trace /hpf (NONE) 08/16/21 10:55 Urine Mucus Trace /hpf 08/16/21 10:55 Discharge Plan Discharge Patient Disposition: Home Clinical Impression: CHF (congestive heart failure), Atypical chest pain, Morbid (severe) obesity due to excess calories Condition: Stable Prescriptions: No Action (DME) oxygen-air delivery systems Device See Rx Instructions .ROUTE .MEDSUPPLY Qty: 1 0RF Rx Instructions: As directed albuterol sulfate 90 mcg/actuation HFA aerosol inhaler 2 puff inhalation QID PRN (Reason: Shortness Of Breath) 0RF atorvastatin [Lipitor] 80 mg Tablet 80 mg PO BEDTIME 0RF omeprazole 40 mg Capsule,Delayed Release(Dr/Ec) 40 mg PO DAILY 0RF montelukast [Singulair] 10 mg Tablet 10 mg PO BEDTIME 0RF aspirin 81 mg Tablet,Delayed Release (Dr/Ec) 81 mg PO DAILY 0RF atenolol [Tenormin] 100 mg tablet 100 mg PO DAILY 0RF Dulera 200-5 mcg/actuation HFA aerosol inhaler 2 puff INHALATION BID 0RF allopurinol 100 mg tablet 100 mg PO DAILY 0RF lisinopril 5 mg tablet 5 mg PO DAILY 0RF Janumet 50-1,000 mg tablet 1 tab PO BID 0RF Klor-Con M20 20 mEq tablet,ER particles/crystals 20 meq PO DAILY 0RF Voltaren Arthritis Pain 1 % gel 2 g topical QID PRN (Reason: Pain) 0RF Rx Instructions: apply to single elbow, wrist or hand; for hand includes palm/fingers/back of hand bumetanide 1 mg tablet 1 mg PO BID Qty: 60 0RF glipizide 10 mg Tablet Extended Release 24hr 10 mg PO QAM Qty: 30 1RF folic acid 1 mg tablet 1 mg PO DAILY 0RF ferrous sulfate 325 mg (65 mg iron) tablet 325 mg PO DAILY 0RF Levemir FlexTouch U-100 Insuln 100 unit/mL (3 mL) insulin pen See Rx Instructions .ROUTE .COMPLEX 0RF Rx Instructions: sliding scale prn (pt states he has but hasnt used in 6 months or longer) tamsulosin 0.4 mg capsule 0.4 mg PO DAILY 0RF ziprasidone HCl 40 mg capsule 40 mg PO DAILY@17 0RF sertraline 50 mg tablet 50 mg PO DAILY 0RF acetaminophen [Tylenol] 325 mg capsule 325 mg PO Q6H PRN (Reason: pain) Qty: 14 0RF Fioricet 50-300-40 mg capsule 1 cap PO Q6H PRN (Reason: pain) Qty: 14 0RF Discharge Orders: Discharge ED (Routine); Ordered 08/16/21 Ordered By: Fantasma Del Angel Referrals: Stewart Rosario MD [Primary Care Provider] - Discharge Diet: Usual diet Discharge Activity: Limit activity as instructed Patient Instructions: Opioid Safety Activity Restrictions/Additional Instructions: manager digital ad operations will call to make arrangements. Have a Lexiscan sestamibi stress test Coding Level of Care Code ED Piece Goods Packer for Chg Fwd Exam Comprehensive
[2021-08-16 10:49] LABS: Lactic Sepsis W/Reflex 1.4 mmol/L (0.5-2.2)
[2021-08-16 11:04] LABS: ABG PCO2 56.1 mmHg (35-45); ABG PH Result 7.39 (7.35-7.45); Alveolar-Arterial Oxygen Gradi 18.9 mmHg (5-10); Arterial Blood Gas Hematocrit 28.3 % (42-52); Base Excess ABG 7.6 mmol/L (-2.0-2.0); Blood Gas Allen Test Pos; Blood Gas Operator Identificat MONRO; Blood Gas Sample Site Radial, left; Blood Gas Sample Type Arterial; Carboxyhemoglobin 1.5 %THgb (0.4-20.1); HCO3 ABG 33.8 mmol/L (22-26); HGB O2 Sat 92.1 % (95-100); Ionized Calcium Level - ABG 1.1 mmol/L (1.1-1.4); Methemoglobin 0.7 % (0.4-1.5); Oxygen Device NC; Oxygen Saturation ABG 94.2; PO2 ABG 72.7 mmHg (80.0-100.0); Potassium Level - ABG 3.5 mmol/L (3.5-5.0); Total Hemoglobin 9.2 g/dL (14-18)
[2021-08-16 11:12] LABS: Add Urine Microscopic? YES; Bilirubin Urine Neg (Negative); Blood Urine Neg (Negative); Glucose Urine UA Norm (Normal); Ketones Urine Negative (Negative); Leukocyte Esterase Urine Negative (Negative); Nitrate Urine Negative (Negative); Protein Urine 1+ (Negative); Specific Gravity, Urine 1.015 (1.005-1.030); Urine Appearance Clear (CLEAR); Urine Color Yellow (Yellow); Urobilinogen Urine Norm (Negative); pH Urine 5 (5-7)
[2021-08-16 11:18] LABS: Add Urine Culture? No; Bacteria Urine TRACE /hpf; Mucus Urine TRACE /hpf; RBC Urine 0-4 /hpf (0-2); Squamous Epithelial Cell Urine 0-4 /hpf (0-5)
--- NOTE | 2021-08-16 11:58 | ECG_ITS ---
[facility] Test Date: 2021-08-16 Pat Name: Arnol Guzman Department: Room: Gender: Male Porcelain Turner: : 1970 Requested By: Fantasma Olson Order Number: [id number] Bernardino MD: Wali Martinez M.D. Measurements Intervals [place] Rate: 68 P: 90 AL: 146 QRS: 99 QRSD: 100 T: 91 QT: 425 QTc: 453 Interpretive Statements SINUS RHYTHM INDETERMINATE AXIS LOW QRS VOLTAGE IN PRECORDIAL LEADS [QRS DEFLECTION < 1.0 mV IN CHEST LEADS] PATTERN CONSISTENT WITH PULMONARY DISEASE INCOMPLETE RIGHT BUNDLE BRANCH BLOCK [90+ ms QRS DURATION, TERMINAL R IN V1/V2, 40+ ms S IN I/aVL/V4/V5/V6] Compared to ECG 08/16/2021 09:54:40 Indeterminate axis now present Right-axis deviation no longer present Electronically Signed On 08-16-2021 17:16:29 COTTON PICKER OPERATOR by Wali Martinez M.D. [id number]
[2021-08-16 12:11] VITALS: BP 99/62; PULSE 73; RESP 22; O2SAT 92
--- NOTE | 2021-08-16 12:45 | PC.NURSE ---
report given to lucian gill in [facility].
[2021-08-16 13:08] LABS: Troponin 5 2HR 43.69 ng/L (0-15)
[2021-08-16 13:10] LABS: Troponin 5 2HR Delta -1.31 ABS# (0-10)
[2021-08-16 14:47] VITALS: BP 135/65; PULSE 78; RESP 20; O2SAT 97
--- NOTE | 2021-08-18 15:11 | DCPLANNER ---
Addendum entered by Angelic Rosa 11/16/21 20:08: Patient had an outpatient stress test scheduled for 10.18.21 - patient did not attend appointment. Addendum entered by Angelic Rosa 09/30/21 14:03: Patient has an outpatient stress test scheduled for Monday, October 18, 2021 at 10:00, centralized scheduling will call patient with appointment information. Original Note: manager traffic had message to schedule an out patient stress test for patient. manager traffic faxed signed order to centralized scheduling, who will call patient with appointment information.
== END 2021-08-16 14:57 | disposition home or self-care (01) ==
PROVIDERS: Emergency Provider Family Medicine; PCP Family Medicine
DX: R07.89 Other chest pain (principal); I11.0 Hypertensive heart disease with heart failure; I50.9 Heart failure, unspecified; E66.01 Morbid (severe) obesity due to excess calories; Z68.44 Body mass index [BMI] 60.0-69.9, adult; Z79.82 Long term (current) use of aspirin; Z79.84 Long term (current) use of oral hypoglycemic drugs; Z79.4 Long term (current) use of insulin; E11.9 Type 2 diabetes mellitus without complications; E78.2 Mixed hyperlipidemia; Z77.22 Contact with and (suspected) exposure to environmental tobacco smoke (acute) (chronic)
CPT/HCPCS: 36415; 36600; 71045; 80051; 80053; 81001; 82330; 82550; 82805; 83605; 83735; 84484; 85025; 93005; 96374; 99284; J1940

== ENCOUNTER 2021-08-18 13:03 | Emergency (ER) | payer MEDICAID, SELFPAY ==
[2021-08-18 13:11] VITALS: BP 128/55; PULSE 81; RESP 24; TEMP 36.7; O2SAT 92; BMI 68.0
[2021-08-18 13:18] VITALS: PULSE 79; RESP 20; O2SAT 92
--- NOTE | 2021-08-18 13:19 | ED.C_ITS ---
Documented by User: Fantasma Del Angel DO 08/22/21 07:35 HPI - Psych General: Chief Complaint: Psychiatric Symptoms Stated Complaint: SI Time Seen by Provider: 08/18/21 13:19 PFSH ED PFSH: Medical History Anemia -has chronic iron deficiency anemia, baseline Hg is around 9-10 Chest pain CHF (congestive heart failure) -Echo (07/2019): EF=68%, normal diastolic function, no RWMA -on oral lasix -no acute exacerbation currently Decubitus ulcer limited to breakdown of skin (stage 2) Diabetes -NIDDM type II -A1c (11/2019): 8.2 -Accuchecks, ISS, hypoglycemia precautions -consistent carb diet -anticipate hyperglycemia with steroid use Gout Hyperlipemia, mixed Hypertension -VSS; continue to monitor -continue oral antihypertensives Morbid (severe) obesity due to excess calories OPAL (obstructive sleep apnea) -in the process of getting CPAP set up Pneumonia Psychiatric care Transient cerebral ischemia Surgical History History of adenoidectomy History of hernia repair History of tonsillectomy History of umbilical hernia repair Family History Mother Hypertension CAD (coronary artery disease) Stroke Social History Smoking and tobacco status: never smoked Second hand smoke exposure: Yes Alcohol intake: never Adopted: No Caregiver/support person: No Lives independently: Yes Household members: family and friend(s) Housing: Manufactured/Mobile home Marital status: Single Number of children: 0 Number of grandchildren: 0 Highest education level completed: 8th Grade service: No Current occupational status: disabled Pets and animals: No History of recent travel: No Leisure activites: other Leisure activities details: play card games Sexually active: No Current gender identity: Male Yolanda/Taoism: Other Special yolanda needs: No Agree to transfusion: Yes Financial difficulty paying for basics: Hard Course Vital Signs: Vital signs: Vital Signs Temperature 98.5 F 08/18/21 16:36 Pulse Rate 76 08/18/21 16:36 Respiratory Rate 22 H 08/18/21 19:11 Blood Pressure 146/78 08/18/21 16:36 Pulse Oximetry 97 08/18/21 16:36 MDM - Psych Medical Decision Making Patient presents here with depression patient was here now would like to go home. I spoke to patient also spoke to Dr. Kelley who is evaluated patient and he is safe for discharge Dr. Kelley does not feel like he is a threat to himself or others will discharge him at this time. Patient now wishes to go home Dr. Kelley is seen the patient, he does not feel the patient needs to be admitted. Will go ahead and discharge home. Lab Data : 08/18/21 14:03 08/18/21 14:03 Radiology Impressions Chest X-Ray 08/18/21 13:20 IMPRESSION: No acute chest abnormality. Laboratory Results WBC 5.6 10^3/uL (4.0-10.0) 08/18/21 14:03 RBC 3.92 10^6/uL (4.1-5.3) L 08/18/21 14:03 Hgb 8.7 g/dL (11.7-16.6) L 08/18/21 14:03 Hct 33.2 % (42.0-52.0) L 08/18/21 14:03 MCV 84.7 fl (80-94) 08/18/21 14:03 MCH 22.2 pg (28.0-34.0) L 08/18/21 14:03 MCHC 26.2 g/dL (30.0-36.0) L 08/18/21 14:03 RDW 19.9 % (12.1-15.1) H 08/18/21 14:03 Plt Count 208 10^3/cmm (130-400) 08/18/21 14:03 MPV 9.4 fL (7.4-10.4) 08/18/21 14:03 Neut % (Auto) 77.6 % 08/18/21 14:03 Lymph % (Auto) 12.7 % 08/18/21 14:03 Ector % (Auto) 7.7 % 08/18/21 14:03 Eos % (Auto) 1.1 % 08/18/21 14:03 Baso % (Auto) 0.5 % 08/18/21 14:03 Neut # (Auto) 4.36 10^3/uL (1.8-7.7) 08/18/21 14:03 Lymph # (Auto) 0.7 10^3/uL (0.8-4.8) L 08/18/21 14:03 Ector # (Auto) 0.4 10^3/uL (0.2-0.9) 08/18/21 14:03 Eos # (Auto) 0.1 10^3/uL (0.0-0.8) 08/18/21 14:03 Baso # (Auto) 0.0 10^3/uL (0.0-0.1) 08/18/21 14:03 Nucleated RBC % (auto) 0 % 08/18/21 14:03 Nucleated RBCs # 0.0 /100WBC 08/18/21 14:03 Sodium 140 mmol/L (136-145) 08/18/21 14:03 Potassium 3.1 mmol/L (3.5-5.1) L 08/18/21 14:03 Chloride 98 mmol/L (98-107) 08/18/21 14:03 Carbon Dioxide 34 mmol/L (22-29) H 08/18/21 14:03 Anion Gap 11.1 (5-19) 08/18/21 14:03 BUN 14 mg/dL (6-20) 08/18/21 14:03 Creatinine 1.1 mg/dL (0.7-1.2) 08/18/21 14:03 GFR Calculation 71.1 mL/min (90-130) L 08/18/21 14:03 Glucose 111 mg/dL (65-115) 08/18/21 14:03 POC Glucose 105 mg/dL (70-110) 08/18/21 16:26 Calculated Osmolality 291 mOsm/kg (285-295) 08/18/21 14:03 Calcium 9.0 mg/dL (8.5-10.5) 08/18/21 14:03 Total Bilirubin 1.1 mg/dL (0.15-1.2) 08/18/21 14:03 AST 17 U/L (0-40) 08/18/21 14:03 ALT 11 U/L (0-41) 08/18/21 14:03 Alkaline Phosphatase 238 IU/L (40-130) H 08/18/21 14:03 Total Protein 7.6 g/dL (6.6-8.7) 08/18/21 14:03 Albumin 3.8 g/dL (3.5-5.2) 08/18/21 14:03 Globulin 3.8 g/dL (1.3-4.6) 08/18/21 14:03 Urine Color Yellow (Yellow) 08/18/21 15:36 Urine Appearance Clear (CLEAR) 08/18/21 15:36 Urine pH 5 (5-7) 08/18/21 15:36 Ur Specific Ashley 1.025 (1.005-1.030) 08/18/21 15:36 Urine Protein 2+ (Negative) H 08/18/21 15:36 Urine Glucose (UA) Norm (Normal) 08/18/21 15:36 Urine Ketones Negative (Negative) 08/18/21 15:36 Urine Blood Neg (Negative) 08/18/21 15:36 Urine Nitrate Negative (Negative) 08/18/21 15:36 Urine Bilirubin Neg (Negative) 08/18/21 15:36 Urine Urobilinogen 4 mg/dL (Negative) H 08/18/21 15:36 Ur Leukocyte Esterase Negative (Negative) 08/18/21 15:36 Urine RBC None /hpf (0-2) 08/18/21 15:36 Urine WBC 0-4 /hpf (0-5) H 08/18/21 15:36 Ur Squamous Epith Cells 0-4 /hpf (0-5) H 08/18/21 15:36 Amorphous Sediment Not Reportable 08/18/21 15:36 Urine Bacteria None /hpf (NONE) 08/18/21 15:36 Salicylates 0.6 mg/dL (3-10) L 08/18/21 14:03 Acetaminophen < 5.0 ug/mL (10-30) L 08/18/21 14:03 Discharge Plan Discharge Patient Disposition: Home Clinical Impression: Suicidal ideation Condition: Stable Prescriptions: No Action (DME) oxygen-air delivery systems Device See Rx Instructions .ROUTE .MEDSUPPLY Qty: 1 0RF Rx Instructions: As directed albuterol sulfate 90 mcg/actuation HFA aerosol inhaler 2 puff inhalation QID PRN (Reason: Shortness Of Breath) 0RF atorvastatin [Lipitor] 80 mg Tablet 80 mg PO BEDTIME 0RF omeprazole 40 mg Capsule,Delayed Release(Dr/Ec) 40 mg PO DAILY 0RF montelukast [Singulair] 10 mg Tablet 10 mg PO BEDTIME 0RF aspirin 81 mg Tablet,Delayed Release (Dr/Ec) 81 mg PO DAILY 0RF atenolol [Tenormin] 100 mg tablet 100 mg PO DAILY 0RF Dulera 200-5 mcg/actuation HFA aerosol inhaler 2 puff INHALATION BID 0RF allopurinol 100 mg tablet 100 mg PO DAILY 0RF lisinopril 5 mg tablet 5 mg PO DAILY 0RF Janumet 50-1,000 mg tablet 1 tab PO BID 0RF potassium chloride [Klor-Con M20] 20 mEq tablet,ER particles/crystals 20 meq PO DAILY 0RF bumetanide 1 mg tablet 1 mg PO BID Qty: 60 0RF glipizide 10 mg Tablet Extended Release 24hr 10 mg PO QAM Qty: 30 1RF furosemide 40 mg tablet 80 mg PO DAILY 0RF Vitamin C 500 mg Tablet 500 mg PO BID 0RF folic acid 1 mg tablet 1 mg PO DAILY 0RF ferrous sulfate 325 mg (65 mg iron) tablet 325 mg PO DAILY 0RF Levemir FlexTouch U-100 Insuln 100 unit/mL (3 mL) insulin pen See Rx Instructions .ROUTE .COMPLEX 0RF Rx Instructions: sliding scale PRN tamsulosin 0.4 mg capsule 0.4 mg PO DAILY 0RF ziprasidone HCl 40 mg capsule 40 mg PO DAILY@17 0RF sertraline 50 mg tablet 50 mg PO DAILY 0RF acetaminophen [Tylenol] 325 mg capsule 325 mg PO Q6H PRN (Reason: pain) Qty: 14 0RF Discharge Orders: Discharge ED (Routine); Ordered 08/18/21 Ordered By: Jesús Pickard Referrals: Stewart Rosario MD [Primary Care Provider] - Discharge Diet: Advance as tolerated Discharge Activity: Resume usual activity Patient Instructions: Opioid Safety Coding Level of Care Code ED Substation Mechanic for Chg Fwd Documented by User: Jesús Pickard MD 08/18/21 19:00 HPI - Psych General: Chief Complaint: Psychiatric Symptoms Stated Complaint: SI Time Seen by Provider: 08/18/21 13:19 History of Present Illness: . [facility] ED PFSH: Medical History Anemia -has chronic iron deficiency anemia, baseline Hg is around 9-10 Chest pain CHF (congestive heart failure) -Echo (07/2019): EF=68%, normal diastolic function, no RWMA -on oral lasix -no acute exacerbation currently Decubitus ulcer limited to breakdown of skin (stage 2) Diabetes -NIDDM type II -A1c (11/2019): 8.2 -Accuchecks, ISS, hypoglycemia precautions -consistent carb diet -anticipate hyperglycemia with steroid use Gout Hyperlipemia, mixed Hypertension -VSS; continue to monitor -continue oral antihypertensives Morbid (severe) obesity due to excess calories OPAL (obstructive sleep apnea) -in the process of getting CPAP set up Pneumonia Psychiatric care Transient cerebral ischemia Surgical History History of adenoidectomy History of hernia repair History of tonsillectomy History of umbilical hernia repair Family History Mother Hypertension CAD (coronary artery disease) Stroke Social History Smoking and tobacco status: never smoked Second hand smoke exposure: Yes Alcohol intake: never Adopted: No Caregiver/support person: No Lives independently: Yes Household members: family and friend(s) Housing: Manufactured/Mobile home Marital status: Single Number of children: 0 Number of grandchildren: 0 Highest education level completed: 8th Grade service: No Current occupational status: disabled Pets and animals: No History of recent travel: No Leisure activites: other Leisure activities details: play card games Sexually active: No Current gender identity: Male Yolanda/Taoism: Other Special yolanda needs: No Agree to transfusion: Yes Financial difficulty paying for basics: Hard Course Vital Signs: Vital signs: Vital Signs Temperature 98.5 F 08/18/21 16:36 Pulse Rate 76 08/18/21 16:36 Respiratory Rate 22 H 08/18/21 19:11 Blood Pressure 146/78 08/18/21 16:36 Pulse Oximetry 97 08/18/21 16:36 MDM - Psych Medical Decision Making Patient presents here with depression patient was here now would like to go home. I spoke to patient also spoke to Dr. Kelley who is evaluated patient and he is safe for discharge Dr. Kelley does not feel like he is a threat to himself or others will discharge him at this time. Lab Data : 08/18/21 14:03 08/18/21 14:03 Radiology Impressions Chest X-Ray 08/18/21 13:20 IMPRESSION: No acute chest abnormality. Laboratory Results WBC 5.6 10^3/uL (4.0-10.0) 08/18/21 14:03 RBC 3.92 10^6/uL (4.1-5.3) L 08/18/21 14:03 Hgb 8.7 g/dL (11.7-16.6) L 08/18/21 14:03 Hct 33.2 % (42.0-52.0) L 08/18/21 14:03 MCV 84.7 fl (80-94) 08/18/21 14:03 MCH 22.2 pg (28.0-34.0) L 08/18/21 14:03 MCHC 26.2 g/dL (30.0-36.0) L 08/18/21 14:03 RDW 19.9 % (12.1-15.1) H 08/18/21 14:03 Plt Count 208 10^3/cmm (130-400) 08/18/21 14:03 MPV 9.4 fL (7.4-10.4) 08/18/21 14:03 Neut % (Auto) 77.6 % 08/18/21 14:03 Lymph % (Auto) 12.7 % 08/18/21 14:03 Ector % (Auto) 7.7 % 08/18/21 14:03 Eos % (Auto) 1.1 % 08/18/21 14:03 Baso % (Auto) 0.5 % 08/18/21 14:03 Neut # (Auto) 4.36 10^3/uL (1.8-7.7) 08/18/21 14:03 Lymph # (Auto) 0.7 10^3/uL (0.8-4.8) L 08/18/21 14:03 Ector # (Auto) 0.4 10^3/uL (0.2-0.9) 08/18/21 14:03 Eos # (Auto) 0.1 10^3/uL (0.0-0.8) 08/18/21 14:03 Baso # (Auto) 0.0 10^3/uL (0.0-0.1) 08/18/21 14:03 Nucleated RBC % (auto) 0 % 08/18/21 14:03 Nucleated RBCs # 0.0 /100WBC 08/18/21 14:03 Sodium 140 mmol/L (136-145) 08/18/21 14:03 Potassium 3.1 mmol/L (3.5-5.1) L 08/18/21 14:03 Chloride 98 mmol/L (98-107) 08/18/21 14:03 Carbon Dioxide 34 mmol/L (22-29) H 08/18/21 14:03 Anion Gap 11.1 (5-19) 08/18/21 14:03 BUN 14 mg/dL (6-20) 08/18/21 14:03 Creatinine 1.1 mg/dL (0.7-1.2) 08/18/21 14:03 GFR Calculation 71.1 mL/min (90-130) L 08/18/21 14:03 Glucose 111 mg/dL (65-115) 08/18/21 14:03 POC Glucose 105 mg/dL (70-110) 08/18/21 16:26 Calculated Osmolality 291 mOsm/kg (285-295) 08/18/21 14:03 Calcium 9.0 mg/dL (8.5-10.5) 08/18/21 14:03 Total Bilirubin 1.1 mg/dL (0.15-1.2) 08/18/21 14:03 AST 17 U/L (0-40) 08/18/21 14:03 ALT 11 U/L (0-41) 08/18/21 14:03 Alkaline Phosphatase 238 IU/L (40-130) H 08/18/21 14:03 Total Protein 7.6 g/dL (6.6-8.7) 08/18/21 14:03 Albumin 3.8 g/dL (3.5-5.2) 08/18/21 14:03 Globulin 3.8 g/dL (1.3-4.6) 08/18/21 14:03 Urine Color Yellow (Yellow) 08/18/21 15:36 Urine Appearance Clear (CLEAR) 08/18/21 15:36 Urine pH 5 (5-7) 08/18/21 15:36 Ur Specific Ashley 1.025 (1.005-1.030) 08/18/21 15:36 Urine Protein 2+ (Negative) H 08/18/21 15:36 Urine Glucose (UA) Norm (Normal) 08/18/21 15:36 Urine Ketones Negative (Negative) 08/18/21 15:36 Urine Blood Neg (Negative) 08/18/21 15:36 Urine Nitrate Negative (Negative) 08/18/21 15:36 Urine Bilirubin Neg (Negative) 08/18/21 15:36 Urine Urobilinogen 4 mg/dL (Negative) H 08/18/21 15:36 Ur Leukocyte Esterase Negative (Negative) 08/18/21 15:36 Urine RBC None /hpf (0-2) 08/18/21 15:36 Urine WBC 0-4 /hpf (0-5) H 08/18/21 15:36 Ur Squamous Epith Cells 0-4 /hpf (0-5) H 08/18/21 15:36 Amorphous Sediment Not Reportable 08/18/21 15:36 Urine Bacteria None /hpf (NONE) 08/18/21 15:36 Salicylates 0.6 mg/dL (3-10) L 08/18/21 14:03 Acetaminophen < 5.0 ug/mL (10-30) L 08/18/21 14:03 Discharge Plan Discharge Patient Disposition: Home Clinical Impression: Suicidal ideation Condition: Stable Prescriptions: No Action (DME) oxygen-air delivery systems Device See Rx Instructions .ROUTE .MEDSUPPLY Qty: 1 0RF Rx Instructions: As directed albuterol sulfate 90 mcg/actuation HFA aerosol inhaler 2 puff inhalation QID PRN (Reason: Shortness Of Breath) 0RF atorvastatin [Lipitor] 80 mg Tablet 80 mg PO BEDTIME 0RF omeprazole 40 mg Capsule,Delayed Release(Dr/Ec) 40 mg PO DAILY 0RF montelukast [Singulair] 10 mg Tablet 10 mg PO BEDTIME 0RF aspirin 81 mg Tablet,Delayed Release (Dr/Ec) 81 mg PO DAILY 0RF atenolol [Tenormin] 100 mg tablet 100 mg PO DAILY 0RF Dulera 200-5 mcg/actuation HFA aerosol inhaler 2 puff INHALATION BID 0RF allopurinol 100 mg tablet 100 mg PO DAILY 0RF lisinopril 5 mg tablet 5 mg PO DAILY 0RF Janumet 50-1,000 mg tablet 1 tab PO BID 0RF potassium chloride [Klor-Con M20] 20 mEq tablet,ER particles/crystals 20 meq PO DAILY 0RF bumetanide 1 mg tablet 1 mg PO BID Qty: 60 0RF glipizide 10 mg Tablet Extended Release 24hr 10 mg PO QAM Qty: 30 1RF furosemide 40 mg tablet 80 mg PO DAILY 0RF Vitamin C 500 mg Tablet 500 mg PO BID 0RF folic acid 1 mg tablet 1 mg PO DAILY 0RF ferrous sulfate 325 mg (65 mg iron) tablet 325 mg PO DAILY 0RF Levemir FlexTouch U-100 Insuln 100 unit/mL (3 mL) insulin pen See Rx Instructions .ROUTE .COMPLEX 0RF Rx Instructions: sliding scale PRN tamsulosin 0.4 mg capsule 0.4 mg PO DAILY 0RF ziprasidone HCl 40 mg capsule 40 mg PO DAILY@17 0RF sertraline 50 mg tablet 50 mg PO DAILY 0RF acetaminophen [Tylenol] 325 mg capsule 325 mg PO Q6H PRN (Reason: pain) Qty: 14 0RF Discharge Orders: Discharge ED (Routine); Ordered 08/18/21 Ordered By: Jesús Pickard Referrals: Stewart Rosario MD [Primary Care Provider] - Discharge Diet: Advance as tolerated Discharge Activity: Resume usual activity Patient Instructions: Opioid Safety Coding Level of Care Code ED Substation Mechanic for Zac Pickett
--- NOTE | 2021-08-18 13:20 | XR_ITS ---
WS: [id number] XR chest 1V portable [id number] REASON FOR EXAM: dyspnea FINDINGS: Chest appears unchanged compared to 08/16/2021. Mild cardiomegaly. Normal mediastinum. Elevation of the right hemidiaphragm with an eventration of the left hemidiaphragm. No acute pulmonary parenchymal or pleural abnormality is identified. XR/XR chest 1V portable [id number] IMPRESSION: No acute chest abnormality.
[2021-08-18 14:10] LABS: Basophils % 0.5 %; Eosinophils # 0.1 10^3/uL (0.0-0.8); Eosinophils % 1.1 %; Hematocrit 33.2 % (42.0-52.0); Hemoglobin 8.7 g/dL (11.7-16.6); Lymphocytes # 0.7 10^3/uL (0.8-4.8); Lymphocytes % 12.7 %; Mean Corpuscular HGB Conc 26.2 g/dL (30.0-36.0); Mean Corpuscular Hemoglobin 22.2 pg (28.0-34.0); Mean Corpuscular Volume 84.7 fl (80-94); Mean Platelet Volume 9.4 fL (7.4-10.4); Monocytes # 0.4 10^3/uL (0.2-0.9); Monocytes % 7.7 %; Neutrophils # 4.36 10^3/uL (1.8-7.7); Neutrophils % 77.6 %; Nucleated Red Blood Cells % 0 %; Platelet Count 208 10^3/cmm (130-400); Red Blood Count 3.92 10^6/uL (4.1-5.3); Red Cell Distribution Width 19.9 % (12.1-15.1); White Blood Count 5.6 10^3/uL (4.0-10.0)
[2021-08-18 14:47] LABS: Alanine Aminotransferase 11 U/L (0-41); Albumin Level 3.8 g/dL (3.5-5.2); Alkaline Phosphatase 238 IU/L (40-130); Anion Gap 11.1 (5-19); Aspartate Amino Transferase 17 U/L (0-40); Blood Urea Nitrogen 14 mg/dL (6-20); Carbon Dioxide 34 mmol/L (22-29); Chloride 98 mmol/L (98-107); Creatinine Clr Calc Pharmacy 111.1041; Globulin 3.8 g/dL (1.3-4.6); Glomerular Filtration Rate 71.1 mL/min (90-130); Glucose 111 mg/dL (65-115); Osmolality Calculated 291 mOsm/kg (285-295); Potassium 3.1 mmol/L (3.5-5.1); Salicylate 0.6 mg/dL (3-10); Sodium 140 mmol/L (136-145); Total Bilirubin 1.1 mg/dL (0.15-1.2); Total Protein 7.6 g/dL (6.6-8.7)
[2021-08-18 14:49] LABS: Acetaminophen < 5.0 ug/mL (10-30)
--- NOTE | 2021-08-18 16:00 | PM.CONSULT ---
Providers/Reason For Consult Consulting Physician/Specialty*: Ama Lorenzo MD /Hospitalist Reason for Consult*: management of medical comorbidities Requesting Physician: Dr. Box Attending Physician: Barrett Hernandez MD Primary Care Provider: Stewart Rosario MD History of Present Illness History of Present Illness Arnol Guzman is a 51 year old male with PMH CHF, sleep apnea, not compliant with CPAP use, NIDDM,gout and morbid obesity who presents today for suicidal ideation and is planned to be admitted to the [facility]. Hospitalist services consulted for management of medical comorbidities. At this time patient denies any specific symptoms such as chest pain dyspnea palpitations syncope cough abdominal pain nausea vomiting or diarrhea. No fever. He is on his baseline oxygen requirement of 2 L/min. Not very compliant with his CPAP at nighttime. Denies any specific medical complaints at this time. Review of Systems General: Reports: 10 or more systems reviewed and unremarkable except in HPI and below Const: Denies: fever(s), chills or body aches Eyes: Denies: change in vision, blurry vision or photophobia ENMT: Reports: hoarseness; Denies: throat pain, enlarged tonsils, odynophagia or nasal congestion Card: Denies: chest pain, palpitations, irregular heart rhythm, edema, swelling of feet/ankles, lightheadedness, pre-syncope, dyspnea on exertion or orthopnea Resp: Denies: dyspnea, productive cough, non-productive cough, wheezing, stridor, pain on inspiration, change in phlegm color, hemoptysis or chest congestion GI: Denies: abdominal pain, nausea, vomiting, hematemesis, coffee ground emesis, dysphagia, heartburn, diarrhea, constipation, GI cramping, change in stool character, hematochezia or melena : Denies: flank pain, dysuria, urinary frequency, urinary urgency, urinary hesitancy or hematuria Musc: Denies: neck pain, back pain, extremity pain, joint swelling, joint warmth or deformity Neuro: Denies: headache(s), numbness in extremities, weakness in extremities, sensory changes, difficulty walking, frequent falls, dizziness, vertigo, behavioral changes, Slurred speech present or seizure-like activity Psych: Denies: anxiety, depression, suicidal ideation or homicidal ideation Endo: Denies: polyuria, polydipsia, tired all the time, cold intolerance or hot flashes Mendel/Lymph: Denies: easy bruising or easy bleeding Medications/Allergies Home Medications Medication Instructions Recorded Confirmed Last Taken Type atorvastatin 80 mg tablet (Lipitor) 80 mg PO BEDTIME 07/14/19 08/18/21 07/24/21 History montelukast 10 mg tablet 10 mg PO BEDTIME 07/14/19 08/18/21 07/24/21 History (Singulair) omeprazole 40 mg capsule,delayed 40 mg PO DAILY 07/14/19 08/18/21 07/24/21 History release oxygen-air delivery systems #1 03/11/20 08/18/21 Unknown History albuterol sulfate 90 mcg/actuation 2 puff INHALATION QID PRN 05/19/20 08/18/21 07/25/21 History aerosol inhaler aspirin 81 mg tablet,delayed 81 mg PO DAILY 09/13/20 08/18/21 07/24/21 History release atenolol 100 mg tablet (Tenormin) 100 mg PO DAILY 11/24/20 08/18/21 07/24/21 History mometasone-formoterol HFA 200 2 puff INHALATION BID 11/24/20 08/18/21 07/24/21 History mcg-5 mcg/actuation aerosol inhaler (Dulera) allopurinol 100 mg tablet 100 mg PO DAILY 02/16/21 08/18/21 07/24/21 History lisinopril 5 mg tablet 5 mg PO DAILY 02/16/21 08/18/21 07/24/21 History sitagliptin 50 mg-metformin 1,000 1 tab PO BID 02/16/21 08/18/21 07/24/21 History mg tablet (Janumet) folic acid 1 mg tablet 1 mg PO DAILY 06/20/21 08/18/21 07/24/21 History ferrous sulfate 325 mg (65 mg 325 mg PO DAILY 06/22/21 08/18/21 07/24/21 History iron) tablet insulin detemir U-100 100 unit/mL See Rx Instructions .ROUTE .COMPLEX 07/13/21 08/18/21 Unknown History (3 mL) subcutaneous pen (Levemir FlexTouch U-100 Insulin) sertraline 50 mg tablet 50 mg PO DAILY 07/13/21 08/18/2122 History tamsulosin 0.4 mg capsule 0.4 mg PO DAILY 07/13/21 08/18/21 07/24/21 History ziprasidone HCl 40 mg capsule 40 mg PO DAILY@17 07/13/21 08/18/21 07/24/21 History acetaminophen 325 mg capsule 325 mg PO Q6H PRN #14 cap 07/15/21 08/18/21 Unknown Rx (Tylenol) potassium chloride 20 mEq 20 meq PO DAILY 07/25/21 08/18/21 Unknown History tablet,extended release(part/cryst) (Klor-Con M) bumetanide 1 mg tablet 1 mg PO BID #60 tab 07/26/21 08/18/21 Unknown Rx glipizide 10 mg tablet, extended 10 mg PO QAM #30 tab 07/26/21 08/18/21 07/24/21 Rx release 24 hr ascorbic acid (vitamin C) 500 mg 500 mg PO BID 08/18/21 08/18/21 Unknown History tablet (Vitamin C) furosemide 40 mg tablet 80 mg PO DAILY 08/18/21 08/18/21 Unknown History Allergies Allergy/AdvReac Type Severity Reaction Status Date / Time Penicillins Allergy ALGY-Hives Verified 08/18/21 15:05 diltiazem [From Cardizem] AdvReac ADR/ALGY-Pa Verified 08/18/21 15:05 lpitations PFSH Acute PFSH: Medical History Anemia -has chronic iron deficiency anemia, baseline Hg is around 9-10 Chest pain CHF (congestive heart failure) -Echo (07/2019): EF=68%, normal diastolic function, no RWMA -on oral lasix -no acute exacerbation currently Decubitus ulcer limited to breakdown of skin (stage 2) Diabetes -NIDDM type II -A1c (11/2019): 8.2 -Accuchecks, ISS, hypoglycemia precautions -consistent carb diet -anticipate hyperglycemia with steroid use Gout Hyperlipemia, mixed Hypertension -VSS; continue to monitor -continue oral antihypertensives Morbid (severe) obesity due to excess calories OPAL (obstructive sleep apnea) -in the process of getting CPAP set up Pneumonia Psychiatric care Transient cerebral ischemia Surgical History History of adenoidectomy History of hernia repair History of tonsillectomy History of umbilical hernia repair Family History Mother Hypertension CAD (coronary artery disease) Stroke Social History Smoking and tobacco status: never smoked Second hand smoke exposure: Yes Alcohol intake: never Adopted: No Caregiver/support person: No Lives independently: Yes Household members: family and friend(s) Housing: Manufactured/Mobile home Marital status: Single Number of children: 0 Number of grandchildren: 0 Highest education level completed: 8th Grade service: No Current occupational status: disabled Pets and animals: No History of recent travel: No Leisure activites: other Leisure activities details: play card games Sexually active: No Current gender identity: Male Yolanda/Adventism: Other Special yolanda needs: No Agree to transfusion: Yes Financial difficulty paying for basics: Hard Vitals/I&O/Wt Last Vital Signs Temp 98.5 F 08/18/21 16:36 Pulse 76 08/18/21 16:36 Resp 22 H 08/18/21 19:11 BP 146/78 08/18/21 16:36 Pulse Ox 97 08/18/21 16:36 Weight last 48 hrs Weight 163.293 kg Physical Exam Narrative: GEN: Awake, alert and oriented, no acute distress, lying in a recliner, supplemental O2 in place via nasal cannula. CVS: S1S2 N RS: CTA B/L all areas Abd: Soft, nt/nd , bs+ DIRECTOR OF CLINICAL TRIALS: no focal neuro deficits ext: obese, no edema, clubbing or cyanosis Data : 08/18/21 14:03 08/18/21 14:03 A&P Assessment and plan (1) Psychiatric care: Presenting today for suicidal ideation, multiple medical comorbidities as above. Medicine service consulted for management of medical comorbidities. Currently patient denies any specific complaints. He is on his baseline oxygen requirement of 2 L/min. We will recommend continuing his home medications including albuterol inhalation, allopurinol, aspirin, atenolol, atorvastatin, Bumex 1 mg p.o. twice daily, he does not appear to be in any CHF exacerbation at this time. Continue ferrous sulfate for acute on chronic anemia, folic acid. For his diabetes mellitus continue Levemir at home dosing and add low-dose insulin sliding scale. For hypertension continue lisinopril. Continue Flomax for BPH. Continue supplemental O2 at 2 L/min as he takes at home. CPAP at nighttime use recommended should patient tolerate. Thank you for this consult. Please call with any other questions or concerns. Status: Acute Coding Level of Care Code Acute Cyber Instructor for Zac Pickett Diagnoses Psychiatric care
[2021-08-18 16:12] LABS: Add Urine Microscopic? YES; Bilirubin Urine Neg (Negative); Blood Urine Neg (Negative); Glucose Urine UA Norm (Normal); Ketones Urine Negative (Negative); Leukocyte Esterase Urine Negative (Negative); Nitrate Urine Negative (Negative); Protein Urine 2+ (Negative); Specific Gravity, Urine 1.025 (1.005-1.030); Urine Appearance Clear (CLEAR); Urine Color Yellow (Yellow); Urobilinogen Urine 4 mg/dL (Negative); pH Urine 5 (5-7)
[2021-08-18 16:15] VITALS: PULSE 79; RESP 20; O2SAT 92
[2021-08-18 16:26] LABS: Add Urine Culture? No; Squamous Epithelial Cell Urine 0-4 /hpf (0-5); WBC Urine 0-4 /hpf (0-5)
[2021-08-18 16:30] LABS: Glucose Point of Care 105 mg/dL (70-110)
[2021-08-18 16:36] VITALS: BP 146/78; PULSE 76; RESP 18; TEMP 36.9; O2SAT 97
[2021-08-18 19:11] VITALS: RESP 22
== END 2021-08-18 19:11 | disposition home or self-care (01) ==
LOC: ER 14:08 → ER IP 18:48
PROVIDERS: Family Medicine; Emergency Provider Emergency Medicine; PCP Family Medicine; Visit Provider Psychiatry & Neurology Psychiatry
DX: R45.851 Suicidal ideations (principal); Z79.82 Long term (current) use of aspirin; Z79.4 Long term (current) use of insulin; I11.0 Hypertensive heart disease with heart failure; I50.9 Heart failure, unspecified; E11.9 Type 2 diabetes mellitus without complications; E78.2 Mixed hyperlipidemia; Z77.22 Contact with and (suspected) exposure to environmental tobacco smoke (acute) (chronic)
CPT/HCPCS: 36416; 71045; 80053; 80307; 81001; 82962; 85025; 99285

== ENCOUNTER 2021-08-22 06:52 | Emergency (ER) | payer MEDICAID, SELFPAY ==
--- NOTE | 2021-08-22 06:56 | XRR_ITS ---
PROCEDURE INFORMATION: Exam: XR Chest Exam date and time: 08/22/2021 6:56 AM Age: 51 years old Clinical indication: Dyspnea; Patient HX: SOB this am; Additional info: Dyspnea/cough TECHNIQUE: Imaging protocol: XR of the chest. Views: 1 view. COMPARISON: CR XR chest 1V portable [id number] 08/18/2021 1:41 PM FINDINGS: Lungs: Limited inspiratory volume with interstitial crowding. Minor interstitial stranding scarring or atelectasis right lower lung. Pleural spaces: Unremarkable. No pleural effusion. No pneumothorax. Heart/Mediastinum: Cardiomegaly. Diaphragm: Elevated right hemidiaphragm. Bones/joints: Unremarkable. XR/XR chest 1V portable [id number] IMPRESSION: 1. Cardiomegaly. 2. Central vascular crowding versus low-grade pulmonary venous congestion. 3. Interstitial scarring or atelectasis right lower lung.
--- NOTE | 2021-08-22 06:57 | ED_ITS ---
HPI - SOB/Dyspnea General: Chief Complaint: Shortness of Breath/Dyspnea Stated Complaint: SOB Time Seen by Provider: 08/22/21 06:55 Source: patient Mode of arrival: EMS Limitations: physical limitation (Patient's body habitus complicates exam, he is in the left lateral recumbent and does not want to sit up or lie on his back) History of Present Illness: HPI Narrative: Presents emergency room complaining of difficulty breathing. He blames the difficulty breathing on a gas leak in his apartment. Patient is hereWith complaints of shortness of breath multiple times a week. He was recently here as well with complaints of suicidal ideation although he retracted those formerly [facility] ents once he found out we are not able to admit him here due to bed space. Patient is super morbidly obese with a BMI in the mid to upper 60s. He normally is on 2 to 3 L by nasal cannula. MD elicited complaint: shortness of breath Pertinent past history: congestive heart failure and diabetes Onset (ago): hour(s) Context: medication noncompliance Timing: constant Severity: mild Exacerbating factors: lying flat and movement Relieving factors: oxygen, rest and upright position Known history of: congestive heart failure Associated symptoms: Reports chest congestion and orthopnea; Deny abdominal pain, chest pain, cough, diaphoresis, dizziness, extremity pain, fever(s), hemoptysis, lightheadedness, myalgias, nausea, palpitations, paresthesias, polydipsia, polyuria, rash, sense of impending doom, syncope or vomiting Treatment prior to arrival: oxygen Review of Systems Const: Denies: fever(s) or diaphoresis ENMT: Denies: throat pain, ear or mastoid pain, nasal discharge or nasal c ongestion Card: Reports: orthopnea; Denies: chest pain, palpitations, lightheadedness or syncope Resp: Reports: chest congestion; Denies: hemoptysis GI: Denies: abdominal pain, nausea or vomiting : Denies: flank pain, dysuria, urinary frequency or urinary urgency Musc: Denies: extremity pain Skin/Breast: Denies: rash or pruritus Neuro: Denies: dizziness Endo: Denies: polyuria or polydipsia PFS ED PFSH: Medical History Anemia -has chronic iron deficiency anemia, baseline Hg is around 9-10 Chest pain CHF (congestive heart failure) -Echo (07/2019): EF=68%, normal diastolic function, no RWMA -on oral lasix -no acute exacerbation currently Decubitus ulcer limited to breakdown of skin (stage 2) Diabetes -NIDDM type II -A1c (11/2019): 8.2 -Accuchecks, ISS, hypoglycemia precautions -consistent carb diet -anticipate hyperglycemia with steroid use Gout Hyperlipemia, mixed Hypertension -VSS; continue to monitor -continue oral antihypertensives Morbid (severe) obesity due to excess calories OPAL (obstructive sleep apnea) -in the process of getting CPAP set up Pneumonia Psychiatric care Transient cerebral ischemia Surgical History History of adenoidectomy History of hernia repair History of tonsillectomy History of umbilical hernia repair Family History Mother Hypertension CAD (coronary artery disease) Stroke Social History Smoking and tobacco status: never smoked Second hand smoke exposure: Yes Alcohol intake: never Adopted: No Caregiver/support person: No Lives independently: Yes Household members: family and friend(s) Housing: Manufactured/Mobile home Marital status: Single Number of children: 0 Number of grandchildren: 0 Highest education level completed: 8th Grade service: No Current occupational status: disabled Pets and animals: No History of recent travel: No Leisure activites: other Leisure activities details: play card games Sexually active: No Current gender identity: Male Yolanda/Bahai: Other Special yolanda needs: No Agree to transfusion: Yes Financial difficulty paying for basics: Hard Physical Exam Const: COMMON NORMALS: no acute distress GENERAL APPEARANCE: cooperative and comfortable ORIENTATION/CONSCIOUSNESS: Yes awake, Yes oriented to person, Yes oriented to place and Yes oriented to time HENMT: COMMON NORMALS: normocephalic, atraumatic and hearing grossly normal bilaterally HEAD & SCALP: normocephalic and atraumatic Neck/C-Spine: COMMON NORMALS: no JVD Resp: AUSCULTATION: crackles and diminished lung sounds Cardio: COMMON NORMALS: no JVD, regular rate, regular rhythm and No murmurs present (Cardio) RATE: regular rate RHYTHM: regular rhythm GI: COMMON NORMALS: Soft to palpation and No hepatosplenomegaly present AUSCULTATION: Yes normoactive bowel sounds PALPATION: Yes Soft to palpation, No Tenderness to palpation present (GI), No Guarding due to palpation present (GI) and Yes No hepatosplenomegaly present Extremity: COMMON NORMALS: normal to inspection, capillary refill normal, no clubbing, cyanosis or edema, no calf tenderness and no pedal edema Neuro: SENSORIUM/ORIENTATION: Yes oriented to person, Yes oriented to place and Yes oriented to time Skin: COMMON NORMALS: no rashes or lesions noted GENERAL SKIN EXAM: no rashes or lesions noted Course Vital Signs: Vital signs: Vital Signs Temperature 98.4 F 08/22/21 06:59 Pulse Rate 79 08/22/21 11:51 Respiratory Rate 18 08/22/21 11:51 Blood Pressure 135/45 08/22/21 11:51 Pulse Oximetry 92 08/22/21 11:51 MDM - SOB/Dyspnea Medical Decision Making Labs and imaging reviewed. Patient is stable at this time is been diuresing well back in the room he is on his baseline 2 L of oxygen he satting 100% he is not having any shortness of breath we will discharge him home continue same medications low-salt diet follow-up with primary care doctor within the week. Medical Records I reviewed the patient's medical records. Lab Data I reviewed the patient's lab results. : 08/22/21 07:55 08/22/21 07:55 Labs/Radiology: Radiology Impressions Chest X-Ray 08/22/21 06:56 IMPRESSION: 1. Cardiomegaly. 2. Central vascular crowding versus low-grade pulmonary venous congestion. 3. Interstitial scarring or atelectasis right lower lung. Laboratory Results WBC 6.4 10^3/uL (4.0-10.0) 08/22/21 07:55 RBC 4.24 10^6/uL (4.1-5.3) 08/22/21 07:55 Hgb 9.2 g/dL (11.7-16.6) L 08/22/21 07:55 Hct 35.5 % (42.0-52.0) L 08/22/21 07:55 MCV 83.7 fl (80-94) 08/22/21 07:55 MCH 21.7 pg (28.0-34.0) L 08/22/21 07:55 MCHC 25.9 g/dL (30.0-36.0) L 08/22/21 07:55 RDW 20.4 % (12.1-15.1) H 08/22/21 07:55 Plt Count 276 10^3/cmm (130-400) 08/22/21 07:55 MPV 10.4 fL (7.4-10.4) 08/22/21 07:55 Neut % (Auto) 73.8 % 08/22/21 07:55 Lymph % (Auto) 16.2 % 08/22/21 07:55 Blanco % (Auto) 8.1 % 08/22/21 07:55 Eos % (Auto) 1.1 % 08/22/21 07:55 Baso % (Auto) 0.5 % 08/22/21 07:55 Neut # (Auto) 4.74 10^3/uL (1.8-7.7) 08/22/21 07:55 Lymph # (Auto) 1.0 10^3/uL (0.8-4.8) 08/22/21 07:55 Blanco # (Auto) 0.5 10^3/uL (0.2-0.9) 08/22/21 07:55 Eos # (Auto) 0.1 10^3/uL (0.0-0.8) 08/22/21 07:55 Baso # (Auto) 0.0 10^3/uL (0.0-0.1) 08/22/21 07:55 Nucleated RBC % (auto) 0 % 08/22/21 07:55 Nucleated RBCs # 0.0 /100WBC 08/22/21 07:55 Specimen Type Arterial 08/22/21 07:12 Sample Site Radial, left 08/22/21 07:12 ABG pH 7.37 (7.35-7.45) 08/22/21 07:12 ABG pCO2 59.9 mmHg (35-45) H 08/22/21 07:12 ABG pO2 58.2 mmHg (80.0-100.0) L 08/22/21 07:12 ABG HCO3 34.4 mmol/L (22-26) H 08/22/21 07:12 ABG O2 Saturation 88.1 08/22/21 07:12 ABG Base Excess 7.8 mmol/L (-2.0-2.0) H 08/22/21 07:12 Luis Test Pos 08/22/21 07:12 A-a O2 Gradient 16.7 mmHg (5-10) H 08/22/21 07:12 Hematocrit 27.4 % (42-52) L 08/22/21 07:12 Hgb O2 Saturation 86.0 % (95-100) L 08/22/21 07:12 Carboxyhemoglobin 1.7 %THgb (0.4-20.1) 08/22/21 07:12 Methemoglobin 0.7 % (0.4-1.5) 08/22/21 07:12 Total Hemoglobin 8.9 g/dL (14-18) L 08/22/21 07:12 Sodium 141.0 mmol/L (131-143) 08/22/21 07:12 Potassium 3.2 mmol/L (3.5-5.0) L 08/22/21 07:12 Glucose 127.0 mg/dL (70-115) H 08/22/21 07:12 Ionized Calcium 1.2 mmol/L (1.1-1.4) 08/22/21 07:12 O2 Delivery Device Nc 08/22/21 07:12 O2 Liters/Min 4.0 % 08/22/21 07:12 FiO2 36.0 % 08/22/21 07:12 Diamond Sander ID Ed 08/22/21 07:12 Sodium 137 mmol/L (136-145) 08/22/21 07:55 Potassium 3.1 mmol/L (3.5-5.1) L 08/22/21 07:55 Chloride 94 mmol/L (98-107) L 08/22/21 07:55 Carbon Dioxide 32 mmol/L (22-29) H 08/22/21 07:55 Anion Gap 14.1 (5-19) 08/22/21 07:55 BUN 13 mg/dL (6-20) 08/22/21 07:55 Creatinine 1.0 mg/dL (0.7-1.2) 08/22/21 07:55 GFR Calculation 79.4 mL/min (90-130) L 08/22/21 07:55 Glucose 107 mg/dL (65-115) 08/22/21 07:55 Calculated Osmolality 285 mOsm/kg (285-295) 08/22/21 07:55 Calcium 9.4 mg/dL (8.5-10.5) 08/22/21 07:55 Magnesium 1.9 mg/dL (1.7-2.3) 08/22/21 07:55 NT-Pro-B Natriuret Pep 2329 pg/mL (0-125) H 08/22/21 07:55 Discharge Plan Discharge Patient Disposition: Home Clinical Impression: CHF (congestive heart failure), Morbid (severe) obesity due to excess calories, Anemia Condition: Stable Prescriptions: No Action (DME) oxygen-air delivery systems Device See Rx Instructions .ROUTE .MEDSUPPLY Qty: 1 0RF Rx Instructions: As directed albuterol sulfate 90 mcg/actuation HFA aerosol inhaler 2 puff inhalation QID PRN (Reason: Shortness Of Breath) 0RF atorvastatin [Lipitor] 80 mg Tablet 80 mg PO BEDTIME 0RF omeprazole 40 mg Capsule,Delayed Release(Dr/Ec) 40 mg PO DAILY 0RF montelukast [Singulair] 10 mg Tablet 10 mg PO BEDTIME 0RF aspirin 81 mg Tablet,Delayed Release (Dr/Ec) 81 mg PO DAILY 0RF atenolol [Tenormin] 100 mg tablet 100 mg PO DAILY 0RF Dulera 200-5 mcg/actuation HFA aerosol inhaler 2 puff INHALATION BID 0RF allopurinol 100 mg tablet 100 mg PO DAILY 0RF lisinopril 5 mg tablet 5 mg PO DAILY 0RF Janumet 50-1,000 mg tablet 1 tab PO BID 0RF potassium chloride [Klor-Con M20] 20 mEq tablet,ER particles/crystals 20 meq PO DAILY 0RF bumetanide 1 mg tablet 1 mg PO BID Qty: 60 0RF glipizide 10 mg Tablet Extended Release 24hr 10 mg PO QAM Qty: 30 1RF furosemide 40 mg tablet 80 mg PO DAILY 0RF Vitamin C 500 mg Tablet 500 mg PO BID 0RF folic acid 1 mg tablet 1 mg PO DAILY 0RF ferrous sulfate 325 mg (65 mg iron) tablet 325 mg PO DAILY 0RF Levemir FlexTouch U-100 Insuln 100 unit/mL (3 mL) insulin pen See Rx Instructions .ROUTE .COMPLEX 0RF Rx Instructions: sliding scale PRN tamsulosin 0.4 mg capsule 0.4 mg PO DAILY 0RF ziprasidone HCl 40 mg capsule 40 mg PO DAILY@17 0RF sertraline 50 mg tablet 50 mg PO DAILY 0RF acetaminophen [Tylenol] 325 mg capsule 325 mg PO Q6H PRN (Reason: pain) Qty: 14 0RF Discharge Orders: Discharge ED (Routine); Ordered 08/22/21 Ordered By: Fantasma Del Angel Referrals: Stewart Rosario MD [Primary Care Provider] - Discharge Diet: Low Salt Discharge Activity: Resume usual activity Patient Instructions: Opioid Safety Activity Restrictions/Additional Instructions: Follow-up with your primary care doctor within the next 3 to 5 days Coding Level of Care Code ED Switch Foreman for Tiffanieg Fwd Exam Comprehensive
[2021-08-22 06:59] VITALS: BP 126/50; PULSE 74; RESP 19; TEMP 36.9; O2SAT 90; BMI 64.2
--- NOTE | 2021-08-22 07:07 | ECG_ITS ---
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 Measurements Intervals [place] Rate: 71 P: 80 [place]: 201 QRS: 104 QRSD: 114 T: 70 QT: 427 QTc: 464 Interpretive Statements SINUS RHYTHM RIGHT AXIS DEVIATION [QRS AXIS > 100] PATTERN CONSISTENT WITH PULMONARY DISEASE INCOMPLETE RIGHT BUNDLE BRANCH BLOCK [90+ ms QRS DURATION, TERMINAL R IN V1/V2, 40+ ms S IN I/aVL/V4/V5/V6] Compared to ECG 08/16/2021 12:14:43 Right-axis deviation now present Indeterminate axis no longer present Electronically Signed On 08-22-2021 18:07:38 FINANCE ASSOCIATE by Wali Martinez M.D. [id number]
[2021-08-22 07:22] LABS: ABG PCO2 59.9 mmHg (35-45); ABG PH Result 7.37 (7.35-7.45); Alveolar-Arterial Oxygen Gradi 16.7 mmHg (5-10); Arterial Blood Gas Hematocrit 27.4 % (42-52); Base Excess ABG 7.8 mmol/L (-2.0-2.0); Blood Gas Allen Test Pos; Blood Gas Operator Identificat ED; Blood Gas Sample Site Radial, left; Blood Gas Sample Type Arterial; Carboxyhemoglobin 1.7 %THgb (0.4-20.1); HCO3 ABG 34.4 mmol/L (22-26); Ionized Calcium Level - ABG 1.2 mmol/L (1.1-1.4); Methemoglobin 0.7 % (0.4-1.5); Oxygen Device NC; Oxygen Saturation ABG 88.1; PO2 ABG 58.2 mmHg (80.0-100.0); Potassium Level - ABG 3.2 mmol/L (3.5-5.0); Total Hemoglobin 8.9 g/dL (14-18)
[2021-08-22 08:00] LABS: Basophils % 0.5 %; Eosinophils # 0.1 10^3/uL (0.0-0.8); Eosinophils % 1.1 %; Hematocrit 35.5 % (42.0-52.0); Hemoglobin 9.2 g/dL (11.7-16.6); Lymphocytes % 16.2 %; Mean Corpuscular HGB Conc 25.9 g/dL (30.0-36.0); Mean Corpuscular Hemoglobin 21.7 pg (28.0-34.0); Mean Corpuscular Volume 83.7 fl (80-94); Mean Platelet Volume 10.4 fL (7.4-10.4); Monocytes # 0.5 10^3/uL (0.2-0.9); Monocytes % 8.1 %; Neutrophils # 4.74 10^3/uL (1.8-7.7); Neutrophils % 73.8 %; Nucleated Red Blood Cells % 0 %; Platelet Count 276 10^3/cmm (130-400); Red Blood Count 4.24 10^6/uL (4.1-5.3); Red Cell Distribution Width 20.4 % (12.1-15.1); White Blood Count 6.4 10^3/uL (4.0-10.0)
[2021-08-22] MEDS: FUROsemide 10 mg/mL SDV 10mL 80 MG IVP (08:02)
[2021-08-22 08:04] VITALS: BP 149/51; PULSE 72; RESP 18; O2SAT 96
[2021-08-22 08:38] LABS: Anion Gap 14.1 (5-19); Blood Urea Nitrogen 13 mg/dL (6-20); Calcium 9.4 mg/dL (8.5-10.5); Carbon Dioxide 32 mmol/L (22-29); Chloride 94 mmol/L (98-107); Glomerular Filtration Rate 79.4 mL/min (90-130); Glucose 107 mg/dL (65-115); Magnesium 1.9 mg/dL (1.7-2.3); NT Pro B Type Natriuretic Pept 2329 pg/mL (0-125); Osmolality Calculated 285 mOsm/kg (285-295); Potassium 3.1 mmol/L (3.5-5.1); Sodium 137 mmol/L (136-145)
[2021-08-22 10:01] VITALS: BP 155/51; PULSE 79; RESP 12; O2SAT 98
--- NOTE | 2021-08-22 10:02 | PC.NURSE ---
PATIENT ON CONTINUOUS BEDSIDE CARDIAC, BP AND O2 MONITOR.
[2021-08-22 11:51] VITALS: BP 135/45; PULSE 79; RESP 18; O2SAT 92
--- NOTE | 2021-08-22 11:52 | PC.NURSE ---
PATIENT UP TO BEDSIDE COMMODE.
[2021-08-22 12:45] VITALS: BP 118/46; PULSE 78; RESP 15; O2SAT 99
[2021-08-22 12:48] VITALS: BP 118/46; PULSE 77; RESP 15; O2SAT 95
== END 2021-08-22 13:06 | disposition home or self-care (01) ==
PROVIDERS: Emergency Provider Family Medicine; PCP Family Medicine
DX: I11.0 Hypertensive heart disease with heart failure (principal); I50.9 Heart failure, unspecified; E66.01 Morbid (severe) obesity due to excess calories; Z68.44 Body mass index [BMI] 60.0-69.9, adult; D64.9 Anemia, unspecified; Z79.82 Long term (current) use of aspirin; Z79.84 Long term (current) use of oral hypoglycemic drugs; Z79.4 Long term (current) use of insulin; E11.9 Type 2 diabetes mellitus without complications; E78.2 Mixed hyperlipidemia; Z77.22 Contact with and (suspected) exposure to environmental tobacco smoke (acute) (chronic)
CPT/HCPCS: 36600; 71045; 80048; 80051; 82330; 82805; 83735; 83880; 85025; 93005; 96374; 99284; J1940

== ENCOUNTER 2021-08-29 08:18 | Inpatient (IN) | payer MEDICAID, SELFPAY ==
[2021-08-29] VITALS (79 sets, daily range): BP systolic 119–174; BP diastolic 47–101; PULSE 62–85; RESP 0–34; TEMP 36.6–36.9; O2SAT 58–100; BMI 102.0
--- NOTE | 2021-08-29 | CTR_ITS ---
PROCEDURE INFORMATION: Exam: CTA Chest With Contrast Exam date and time: 08/29/2021 3:21 PM Age: 51 years old Clinical indication: Abnormal findings; Abnormal diagnostic tests; Patient HX: Resp failure, elevated d-dimer; Additional info: Elevated dimer, resp failure TECHNIQUE: Imaging protocol: Computed tomographic angiography of the chest with contrast. 3D rendering (Not supervised by radiologist): MIP and/or 3D reconstructed images were created by the technologist. Radiation optimization: All CT scans at this facility use at least one of these dose optimization techniques: automated exposure control; mA and/or kV adjustment per patient size (includes targeted exams where dose is matched to clinical indication); or iterative reconstruction. Contrast material: OMNI 350; Contrast volume: 77 ml; Contrast route: INTRAVENOUS (IV); COMPARISON: CT angio chest PE protcl [id number] 07/13/2021 9:08 AM RADIATION DOSE METRICS: Total DLP (mGy-cm): 618.72 FINDINGS: Limitations: Exam is limited secondary to large body habitus. Pulmonary arteries: Suboptimal opacification and visualization of the small peripheral pulmonary arteries. No definite vascular intraluminal filling defects to suggest acute pulmonary embolism. Prominent pulmonary trunk and central pulmonary arteries suggestive of pulmonary artery hypertension. Aorta: No acute abnormality. No aortic aneurysm or dissection. Lungs: Minimal lingular atelectasis or scarring. A few small bilateral calcified granulomas. Scattered small bilateral noncalcified subpleural nodules or granulomas measuring up to 5 mm. No consolidation. Pleural spaces: Unremarkable. No pneumothorax. No pleural effusion. Heart: Mild right heart prominence with RV/LV ratio 1.18. Lymph nodes: A couple borderline enlarged nonspecific mediastinal lymph nodes. Liver: Incompletely visualized prominent liver measuring over 21 cm in length. Spleen: Incompletely visualized prominent spleen measuring over 16 cm in length. Bones/joints: Thoracic spondylosis and degenerative bony changes. Soft tissues: Diffuse superficial soft tissue edema and subcutaneous fat stranding consistent with anasarca. Large body habitus. CT/CT angio chest PE protcl [id number] IMPRESSION: 1. No evidence of pulmonary embolism. 2. Prominent pulmonary trunk and central pulmonary arteries suggestive of pulmonary artery hypertension. 3. Mild right heart prominence with RV/LV ratio 1.18. 4. Scattered small bilateral noncalcified subpleural nodules or granulomas measuring up to 5 mm. For patients at low risk (minimal or absent history of smoking and of other known risk factors), no routine follow-up is indicated. For patients at high risk (history of smoking or of other known risk factors), consider optional CT Chest at 12 months. (Reference: Karan) 5. Hepatosplenomegaly. 6. Anasarca. REFERENCES: Karan Blackwood, et al. Guidelines for Management of Incidental Pulmonary Nodules Detected on CT Images: From the Fleischner Society 2017. Radiology. 2017;284(1):228-243.
--- NOTE | 2021-08-29 08:22 | ECG_ITS ---
[facility] Test Date: 2021-08-29 Pat Name: Arnol Guzman Department: Room: Gender: Male Beef Boner: : 1970 Requested By: Malena Carranza Order Number: [id number] Bernardino MD: Wali Martinez M.D. Measurements Intervals [place] Rate: 76 P: 78 [place]: 149 QRS: 95 QRSD: 101 T: 115 QT: 394 QTc: 443 Interpretive Statements SINUS RHYTHM BORDERLINE RIGHT AXIS DEVIATION [QRS AXIS > 90] LOW QRS VOLTAGE [QRS DEFLECTION < 0.5/1.0 mV IN LIMB/CHEST LEADS] PATTERN CONSISTENT WITH PULMONARY DISEASE INCOMPLETE RIGHT BUNDLE BRANCH BLOCK [90+ ms QRS DURATION, TERMINAL R IN V1/V2, 40+ ms S IN I/aVL/V4/V5/V6] Compared to ECG 08/22/2021 07:23:32 Low QRS voltage now present Electronically Signed On 08-29-2021 12:12:26 DESKTOP SUPPORT MANAGER by Wali Martinez M.D. [id number]
--- NOTE | 2021-08-29 08:22 | XR_ITS ---
WS: [id number] CHEST XRAY TECHNIQUE: Portable chest. CLINICAL INFORMATION: chest pain COMPARISON: August 22, 2021. FINDINGS: Shallow inspiration. Heart: Cardiomegaly. Lungs: Lungs are clear. No consolidation or pleural effusion. Bones: Normal visualized bony structures. XR/XR chest 1V portable [id number] IMPRESSION: 1. Cardiomegaly with shallow inspiration. 2. Mild pulmonary vascular congestion unchanged from previous. 3. No acute pulmonary infiltrates or significant pleural fluid..
--- NOTE | 2021-08-29 08:32 | W.ED.SOB ---
Documented by User: MAGDA Chirinos 08/29/21 13:03 HPI - SOB/Dyspnea General: Chief Complaint: Chest Pain Stated Complaint: CHEST PAIN Time Seen by Provider: 08/29/21 08:21 Source: patient and EMS Mode of arrival: EMS Limitations: no limitations History of Present Illness: HPI Narrative: Patient is a 51-year-old male with a plethora of medical conditions including diabetes, super obesity with a BMI in the upper 60s, obstructive sleep apnea, and congestive heart failure here for concerns of shortness of breath and difficulty breathing. Patient tells me he is normally on 3L continuous oxygen via [place]. Patient during his last hospital stay was supposedly taken off his Lasix and started on Bumex but patient believes he might still be taking both-he is not a very good historian. EMS states that patient was satting normally in route however during my examination sats are anywhere from 89 to 91% on 5L. Patient states he felt weak this morning. He is supposed to be wearing his CPAP at night but has not been. MD elicited complaint: shortness of breath Pertinent past history: congestive heart failure and diabetes Timing: constant Relieving factors: nothing Known history of: congestive heart failure Associated symptoms: Reports chest pain and lightheadedness; Deny abdominal pain, chest congestion, fever(s), hemoptysis, nausea, palpitations, syncope or vomiting Related Data: Home oxygen amount: 3 liters Review of Systems Const: Denies: fever(s), chills, body aches, fatigue or malaise Card: Reports: chest pain, edema (chronic), swelling of feet/ankles (chronic), lightheadedness and dyspnea on exertion (chronic); Denies: palpitations, irregular heart rhythm, syncope or pre-syncope Resp: Reports: dyspnea (chronic-worsening); Denies: productive cough, hemoptysis or chest congestion GI: Denies: abdominal pain, nausea, vomiting or diarrhea Skin/Breast: Denies: rash Neuro: Denies: headache(s) PFS ED PFSH: Medical History Anemia -has chronic iron deficiency anemia, baseline Hg is around 9-10 Chest pain CHF (congestive heart failure) -Echo (07/2019): EF=68%, normal diastolic function, no RWMA -on oral lasix -no acute exacerbation currently Decubitus ulcer limited to breakdown of skin (stage 2) Diabetes -NIDDM type II -A1c (11/2019): 8.2 -Accuchecks, ISS, hypoglycemia precautions -consistent carb diet -anticipate hyperglycemia with steroid use Gout Hyperlipemia, mixed Hypertension -VSS; continue to monitor -continue oral antihypertensives Morbid (severe) obesity due to excess calories OPAL (obstructive sleep apnea) -in the process of getting CPAP set up Pneumonia Psychiatric care Transient cerebral ischemia Surgical History History of adenoidectomy History of hernia repair History of tonsillectomy History of umbilical hernia repair Family History Mother Hypertension CAD (coronary artery disease) Stroke Social History Smoking and tobacco status: never smoked Second hand smoke exposure: Yes Alcohol intake: never Adopted: No Caregiver/support person: No Lives independently: Yes Household members: family and friend(s) Housing: Manufactured/Mobile home Marital status: Single Number of children: 0 Number of grandchildren: 0 Highest education level completed: 8th Grade service: No Current occupational status: disabled Pets and animals: No History of recent travel: No Leisure activites: other Leisure activities details: play card games Sexually active: No Current gender identity: Male Yolanda/Buddhism: Other Special yolanda needs: No Agree to transfusion: Yes Financial difficulty paying for basics: Hard Physical Exam Const: COMMON NORMALS: patient oriented x3, no limitations and alert GENERAL APPEARANCE: cooperative and in distress (respiratory distress with hypoxia ) NUTRITIONAL APPEARANCE: obese HENMT: COMMON NORMALS: normocephalic and atraumatic HEAD & SCALP: normocephalic and atraumatic Resp: EFFORT & INSPECTION: No stridor, No retractions and No uses accessory muscles AUSCULTATION: no rhonchi, no wheezes and diminished lung sounds (could be secondary to body habitus) Cardio: COMMON NORMALS: regular rate and regular rhythm RATE: regular rate RHYTHM: regular rhythm GI: COMMON NORMALS: non-tender INSPECTION: Yes Anasarca OTHER: limited secondary to morbid obesity Extremity: NARRATIVE EXTREMITY EXAM: bilateral equal edema throughout entire extremities into abdomen-this sounds chronic after reviewing old documentation Neuro: PARAS COMA SCALE: document GCS findings [place] coma scale total score: COMMON NORMALS: patient oriented x3, moves all extremities, no focal motor deficits and no sensory deficits noted SENSORIUM/ORIENTATION: Yes alert Skin: COMMON NORMALS: no rashes or lesions noted GENERAL SKIN EXAM: no rashes or lesions noted Course ED course: ABG showing pCO2 over 70. He is slightly acidotic. Patient will be placed on BiPAP. Dr. Del Angel consulted who agrees with plan at this time. Vital Signs: Vital signs: Vital Signs Temperature 98.2 F 08/29/21 09:28 Pulse Rate 68 08/29/21 11:17 Respiratory Rate 20 H 08/29/21 13:15 Blood Pressure 145/63 08/29/21 13:15 Pulse Oximetry 99 08/29/21 13:15 MDM - SOB/Dyspnea Medical Decision Making Patient is a 51-year-old male with a history of super obesity (BMI is over 100), CHF, COPD, obstructive sleep apnea noncompliant with CPAP here with complaints of shortness of breath. Patient normally wears 3L oxygen but was requiring 12 L on a nonrebreather upon arrival. He was eventually placed on BiPAP and after his ABG showed a PCO2 of over 70. He actually worsened on repeat ABG. Spoke to Dr. Kapadia who will assume care of patient pending hospitalization. He was given IV Lasix and potassium. Lab Data : 08/29/21 08:30 08/29/21 09:50 Labs/Radiology: Radiology Impressions Chest X-Ray 08/29/21 08:22 IMPRESSION: 1. Cardiomegaly with shallow inspiration. 2. Mild pulmonary vascular congestion unchanged from previous. 3. No acute pulmonary infiltrates or significant pleural fluid.. Laboratory Results WBC 7.1 10^3/uL (4.0-10.0) 08/29/21 08:30 RBC 4.24 10^6/uL (4.1-5.3) 08/29/21 08:30 Hgb 9.3 g/dL (11.7-16.6) L 08/29/21 08:30 Hct 36.4 % (42.0-52.0) L 08/29/21 08:30 MCV 85.8 fl (80-94) 08/29/21 08:30 MCH 21.9 pg (28.0-34.0) L 08/29/21 08:30 MCHC 25.5 g/dL (30.0-36.0) L 08/29/21 08:30 RDW 20.9 % (12.1-15.1) H 08/29/21 08:30 Plt Count 303 10^3/cmm (130-400) 08/29/21 08:30 MPV 10.1 fL (7.4-10.4) 08/29/21 08:30 Neut % (Auto) 76.9 % 08/29/21 08:30 Lymph % (Auto) 13.0 % 08/29/21 08:30 [place] % (Auto) 8.1 % 08/29/21 08:30 Eos % (Auto) 1.0 % 08/29/21 08:30 Baso % (Auto) 0.7 % 08/29/21 08:30 Neut # (Auto) 5.44 10^3/uL (1.8-7.7) 08/29/21 08:30 Lymph # (Auto) 0.9 10^3/uL (0.8-4.8) 08/29/21 08:30 [place] # (Auto) 0.6 10^3/uL (0.2-0.9) 08/29/21 08:30 Eos # (Auto) 0.1 10^3/uL (0.0-0.8) 08/29/21 08:30 Baso # (Auto) 0.1 10^3/uL (0.0-0.1) 08/29/21 08:30 Nucleated RBC % (auto) 0 % 08/29/21 08:30 Nucleated RBCs # 0.0 /100WBC 08/29/21 08:30 D-Dimer 2.02 ug/mIFEU (0-0.59) H 08/29/21 13:07 Specimen Type Arterial 08/29/21 12:21 Sample Site Radial, left 08/29/21 12:21 ABG pH 7.36 (7.35-7.45) 08/29/21 12:21 ABG pCO2 64.0 mmHg (35-45) H* 08/29/21 12:21 ABG pO2 90.8 mmHg (80.0-100.0) 08/29/21 12:21 ABG HCO3 35.7 mmol/L (22-26) H 08/29/21 12:21 ABG O2 Saturation 97.2 08/29/21 12:21 ABG Base Excess 8.7 mmol/L (-2.0-2.0) H 08/29/21 12:21 Luis Test Pos 08/29/21 12:21 A-a O2 Gradient 15.0 mmHg (5-10) H 08/29/21 12:21 Hematocrit 27.5 % (42-52) L 08/29/21 12:21 Hgb O2 Saturation 95.3 % (95-100) 08/29/21 12:21 Carboxyhemoglobin 1.5 %THgb (0.4-20.1) 08/29/21 12:21 Methemoglobin 0.5 % (0.4-1.5) 08/29/21 12:21 Total Hemoglobin 9.0 g/dL (14-18) L 08/29/21 12:21 Sodium 143.0 mmol/L (131-143) 08/29/21 12:21 Potassium 3.7 mmol/L (3.5-5.0) 08/29/21 12:21 Glucose 125.0 mg/dL (70-115) H 08/29/21 12:21 Ionized Calcium 1.2 mmol/L (1.1-1.4) 08/29/21 11:05 O2 Delivery Device Bipap 08/29/21 12:21 O2 Liters/Min 12.0 % 08/29/21 08:54 FiO2 40.0 % 08/29/21 12:21 Bank Teller Machine Mechanic ID Monrp 08/29/21 12:21 Sodium 142 mmol/L (136-145) 08/29/21 09:50 Potassium 3.5 mmol/L (3.5-5.1) 08/29/21 09:50 Chloride 99 mmol/L (98-107) 08/29/21 09:50 Carbon Dioxide 32 mmol/L (22-29) H 08/29/21 09:50 Anion Gap 14.5 (5-19) 08/29/21 09:50 BUN 18 mg/dL (6-20) 08/29/21 09:50 Creatinine 1.2 mg/dL (0.7-1.2) 08/29/21 09:50 GFR Calculation 64.4 mL/min (90-130) L 08/29/21 09:50 Glucose 139 mg/dL (65-115) H 08/29/21 09:50 Calculated Osmolality 298 mOsm/kg (285-295) H 08/29/21 09:50 Calcium 8.8 mg/dL (8.5-10.5) 08/29/21 09:50 Total Bilirubin 1.1 mg/dL (0.15-1.2) 08/29/21 09:50 AST 10 U/L (0-40) 08/29/21 09:50 ALT 9 U/L (0-41) 08/29/21 09:50 Alkaline Phosphatase 239 IU/L (40-130) H 08/29/21 09:50 Troponin T Baseline 36 ng/L (0-15) H 08/29/21 09:50 Troponin T 120 Minute 33.06 ng/L (0-15) H 08/29/21 11:07 Delta Troponin T -2.94 ABS# (0-10) L 08/29/21 11:07 NT-Pro-B Natriuret Pep 3162 pg/mL (0-125) H 08/29/21 09:50 Total Protein 7.6 g/dL (6.6-8.7) 08/29/21 09:50 Albumin 3.8 g/dL (3.5-5.2) 08/29/21 09:50 Globulin 3.8 g/dL (1.3-4.6) 08/29/21 09:50 Procalcitonin 0.10 ng/mL (0-0.5) 08/29/21 09:50 Urine Color Yellow (Yellow) 08/29/21 12:55 Urine Appearance Clear (CLEAR) 08/29/21 12:55 Urine pH 5 (5-7) 08/29/21 12:55 Ur Specific [place] 1.015 (1.005-1.030) 08/29/21 12:55 Urine Protein 1+ (Negative) H 08/29/21 12:55 Urine Glucose (UA) Norm (Normal) 08/29/21 12:55 Urine Ketones 1+ (Negative) H 08/29/21 12:55 Urine Blood Neg (Negative) 08/29/21 12:55 Urine Nitrate Negative (Negative) 08/29/21 12:55 Urine Bilirubin Neg (Negative) 08/29/21 12:55 Urine Urobilinogen 1 mg/dL (Negative) H 08/29/21 12:55 Ur Leukocyte Esterase 1+ (Negative) H 08/29/21 12:55 Urine RBC None /hpf (0-2) 08/29/21 12:55 Urine WBC 5-10 /hpf (0-5) H 08/29/21 12:55 Ur Squamous Epith Cells 0-4 /hpf (0-5) H 08/29/21 12:55 Amorphous Sediment Not Reportable 08/29/21 12:55 Urine Bacteria Trace /hpf (NONE) 08/29/21 12:55 Hyaline Casts 0-4 /lpf H 08/29/21 12:55 SARS-CoV-2 Ag (Rapid) Negative (Negative) 08/29/21 08:30 Discharge Plan Discharge Condition: Stable Prescriptions: No Action (DME) oxygen-air delivery systems Device See Rx Instructions .ROUTE .MEDSUPPLY Qty: 1 0RF Rx Instructions: As directed albuterol sulfate 90 mcg/actuation HFA aerosol inhaler 2 puff inhalation QID PRN (Reason: Shortness Of Breath) 0RF atorvastatin [Lipitor] 80 mg Tablet 80 mg PO BEDTIME 0RF omeprazole 40 mg Capsule,Delayed Release(Dr/Ec) 40 mg PO QAM 0RF montelukast [Singulair] 10 mg Tablet 10 mg PO BEDTIME 0RF aspirin 81 mg Tablet,Delayed Release (Dr/Ec) 81 mg PO QAM 0RF atenolol [Tenormin] 100 mg tablet 100 mg PO QAM 0RF Dulera 200-5 mcg/actuation HFA aerosol inhaler 2 puff INHALATION BID 0RF allopurinol 100 mg tablet 100 mg PO QAM 0RF lisinopril 5 mg tablet 5 mg PO QAM 0RF Janumet 50-1,000 mg tablet 1 tab PO BID 0RF bumetanide 1 mg tablet 1 mg PO BID Qty: 60 0RF glipizide 10 mg Tablet Extended Release 24hr 10 mg PO QAM Qty: 30 1RF furosemide 40 mg tablet 80 mg PO DAILY 0RF ascorbic acid (vitamin C) [Vitamin C] 500 mg Tablet 500 mg PO BID 0RF folic acid 1 mg tablet 1 mg PO QAM 0RF ferrous sulfate 325 mg (65 mg iron) tablet 325 mg PO BID 0RF Levemir FlexTouch U-100 Insuln 100 unit/mL (3 mL) insulin pen 6 unit SUBCUT DAILY 0RF tamsulosin 0.4 mg capsule 0.4 mg PO DAILY 0RF ziprasidone HCl 40 mg capsule 40 mg PO DAILY@17 0RF sertraline 50 mg tablet 50 mg PO DAILY 0RF acetaminophen [Tylenol] 325 mg capsule 325 mg PO Q6H PRN (Reason: pain) Qty: 14 0RF Referrals: Stewart Rosario MD [Primary Care Provider] - Sign Out Sign Out Data: Patient Sign Out occurred on 08/29/21 at 11:23. Patient's care was discussed, and care was transferred from to Fantasma Del Angel DO. Coding Level of Care Code ED Paintings Restorer for Chg Fwd Exam Detailed Documented by User: Fantasma Del Angel DO 08/29/21 14:02 HPI - SOB/Dyspnea General: Chief Complaint: Chest Pain Stated Complaint: CHEST PAIN Time Seen by Provider: 08/29/21 08:21 Source: patient Mode of arrival: EMS Limitations: altered mental status History of Present Illness: HPI Narrative: Patient is a 51-year-old male with a plethora of medical conditions including diabetes, super obesity with a BMI in the upper 60s, obstructive sleep apnea, and congestive heart failure here for concerns of shortness of breath and difficulty breathing.? Patient tells me he is normally on 3L continuous oxygen via [place].? Patient during his last hospital stay was supposedly taken off his Lasix and started on Bumex but patient believes he might still be taking both-he is not a very good historian. EMS states that patient was satting normally in route however during my examination sats are anywhere from 89 to 91% on 5L. Patient states he felt weak this morning. He is supposed to be wearing his CPAP at night but has not been.? Patient initially seen by midlevel. Her chart reviewed and patient seen and examined myself as well. 51-year-old male super morbidly obese with evidence of significant fluid retention hypercapnic respiratory failure he does not able to contribute much for history he is minimally responsive to painful and verbal stimuli. He indicates he has no chest pain or abdominal pain. MD elicited complaint: shortness of breath and cough Pertinent past history: congestive heart failure Onset (ago): unknown Timing: constant Severity: severe Exacerbating factors: lying flat and exertion Relieving factors: oxygen, rest and other (BiPAP) Known history of: congestive heart failure Associated symptoms: Reports chest congestion, cough, myalgias, nausea, orthopnea and sense of impending doom; Deny abdominal pain, chest pain, diaphoresis, dizziness, extremity pain, fever(s), hemoptysis, lightheadedness, palpitations, paresthesias, polydipsia, polyuria, rash, syncope or vomiting Treatment prior to arrival: oxygen Review of Systems Const: Denies: fever(s) or diaphoresis Card: Reports: orthopnea; Denies: chest pain, palpitations, lightheadedness or syncope Resp: Reports: chest congestion; Denies: hemoptysis GI: Reports: nausea; Denies: abdominal pain or vomiting Musc: Denies: extremity pain Neuro: Denies: dizziness Endo: Denies: polyuria or polydipsia [facility] ED PFSH: Medical History Anemia -has chronic iron deficiency anemia, baseline Hg is around 9-10 Chest pain CHF (congestive heart failure) -Echo (07/2019): EF=68%, normal diastolic function, no RWMA -on oral lasix -no acute exacerbation currently Decubitus ulcer limited to breakdown of skin (stage 2) Diabetes -NIDDM type II -A1c (11/2019): 8.2 -Accuchecks, ISS, hypoglycemia precautions -consistent carb diet -anticipate hyperglycemia with steroid use Gout Hyperlipemia, mixed Hypertension -VSS; continue to monitor -continue oral antihypertensives Morbid (severe) obesity due to excess calories OPAL (obstructive sleep apnea) -in the process of getting CPAP set up Pneumonia Psychiatric care Transient cerebral ischemia Surgical History History of adenoidectomy History of hernia repair History of tonsillectomy History of umbilical hernia repair Family History Mother Hypertension CAD (coronary artery disease) Stroke Social History Smoking and tobacco status: never smoked Second hand smoke exposure: Yes Alcohol intake: never Adopted: No Caregiver/support person: No Lives independently: Yes Household members: family and friend(s) Housing: Manufactured/Mobile home Marital status: Single Number of children: 0 Number of grandchildren: 0 Highest education level completed: 8th Grade service: No Current occupational status: disabled Pets and animals: No History of recent travel: No Leisure activites: other Leisure activities details: play card games Sexually active: No Current gender identity: Male Yolanda/Buddhism: Other Special yolanda needs: No Agree to transfusion: Yes Financial difficulty paying for basics: Hard Physical Exam Const: GENERAL APPEARANCE: cooperative and comfortable ORIENTATION/CONSCIOUSNESS: Yes awake HENMT: COMMON NORMALS: normocephalic, atraumatic and hearing grossly normal bilaterally HEAD & SCALP: normocephalic and atraumatic Neck/C-Spine: COMMON NORMALS: no JVD Lymph: LYMPHATIC: no lymphadenopathy noted and no lymphedema noted Resp: COMMON NORMALS: normal respiratory effort, No retractions, No use of accessory muscles and clear to auscultation bilaterally AUSCULTATION: clear to auscultation bilaterally Cardio: COMMON NORMALS: no JVD, regular rate, regular rhythm and No murmurs present (Cardio) RATE: regular rate RHYTHM: regular rhythm GI: COMMON NORMALS: Soft to palpation and No hepatosplenomegaly present AUSCULTATION: Yes normoactive bowel sounds PALPATION: Yes Soft to palpation, No Tenderness to palpation present (GI), No Guarding due to palpation present (GI) and Yes No hepatosplenomegaly present OTHER: Anasarca to the level of the chest : OTHER: Edema into the point of obscuring any landmarks scrotum is just large edematous penis not identifiable Extremity: OTHER: 2+ lower extremity edema, slightly less than would be expected given his overall condition however the patient remains supine in a left lateral recumbent position most of his waking hours Course Vital Signs: Vital signs: Vital Signs Temperature 98.2 F 08/29/21 09:28 Pulse Rate 68 08/29/21 11:17 Respiratory Rate 20 H 08/29/21 13:15 Blood Pressure 145/63 08/29/21 13:15 Pulse Oximetry 99 08/29/21 13:15 MDM - SOB/Dyspnea Medical Decision Making Patient is a 51-year-old male with a history of super obesity (BMI is over 100), CHF, COPD, obstructive sleep apnea noncompliant with CPAP here with complaints of shortness of breath. Patient normally wears 3L oxygen but was requiring 12 L on a nonrebreather upon arrival. He was eventually placed on BiPAP and after his ABG showed a PCO2 of over 70. He actually worsened on repeat ABG. Spoke to Dr. Kapadia who will assume care of patient pending hospitalization. He was given IV Lasix and potassium. Chart reviewed and patient discussed with midlevel. Agree with assessment and plan. Discussed Dr. Michaels will admit orders written. Unable to Place Shaw due to large amount of swelling of the genitalia Dr. Michaels asked that we contact Dr. Perez for Shaw placement due to the patient's need for diuresis and accurate measurement of input and output Medical Records I reviewed the patient's medical records. Lab Data I reviewed the patient's lab results. : 08/29/21 08:30 08/29/21 09:50 Labs/Radiology: Radiology Impressions Chest X-Ray 08/29/21 08:22
[2021-08-29 08:50] LABS: Basophils # 0.1 10^3/uL (0.0-0.1); Basophils % 0.7 %; Eosinophils # 0.1 10^3/uL (0.0-0.8); Hematocrit 36.4 % (42.0-52.0); Hemoglobin 9.3 g/dL (11.7-16.6); Lymphocytes # 0.9 10^3/uL (0.8-4.8); Mean Corpuscular HGB Conc 25.5 g/dL (30.0-36.0); Mean Corpuscular Hemoglobin 21.9 pg (28.0-34.0); Mean Corpuscular Volume 85.8 fl (80-94); Mean Platelet Volume 10.1 fL (7.4-10.4); Monocytes # 0.6 10^3/uL (0.2-0.9); Monocytes % 8.1 %; Neutrophils # 5.44 10^3/uL (1.8-7.7); Neutrophils % 76.9 %; Nucleated Red Blood Cells % 0 %; Platelet Count 303 10^3/cmm (130-400); Red Blood Count 4.24 10^6/uL (4.1-5.3); Red Cell Distribution Width 20.9 % (12.1-15.1); White Blood Count 7.1 10^3/uL (4.0-10.0)
[2021-08-29 09:04] LABS: ABG PH Result 7.31 (7.35-7.45); Arterial Blood Gas Hematocrit 26.9 % (42-52); Base Excess ABG 8.2 mmol/L (-2.0-2.0); Blood Gas Allen Test Pos; Blood Gas Sample Type Arterial; Carboxyhemoglobin 1.4 %THgb (0.4-20.1); HCO3 ABG 35.9 mmol/L (22-26); HGB O2 Sat 95.6 % (95-100); Ionized Calcium Level - ABG 1.2 mmol/L (1.1-1.4); Methemoglobin 0.3 % (0.4-1.5); Oxygen Saturation ABG 97.4; PO2 ABG 99.1 mmHg (80.0-100.0); Potassium Level - ABG 3.5 mmol/L (3.5-5.0); Total Hemoglobin 8.8 g/dL (14-18)
[2021-08-29 09:05] LABS: ABG PCO2 71.1 mmHg (35-45); Blood Gas Operator Identificat ED; Blood Gas Sample Site Radial, right; Oxygen Device NRB
[2021-08-29 10:00] LABS: SARS Covid-2 Antigen Negative (Negative)
--- NOTE | 2021-08-29 10:22 | ECG_ITS ---
[facility] Test Date: 2021-08-29 Pat Name: Arnol Guzman Department: Room: Gender: Male Hand Edger: : 1970 Requested By: Malena Carranza Order Number: [id number] Bernardino MD: Wali Martinez M.D. Measurements Intervals [place] Rate: 71 P: 83 AK: 182 QRS: 111 QRSD: 102 T: 96 QT: 395 QTc: 432 Interpretive Statements SINUS RHYTHM RIGHT AXIS DEVIATION [QRS AXIS > 100] LOW QRS VOLTAGE IN PRECORDIAL LEADS [QRS DEFLECTION < 1.0 mV IN CHEST LEADS] PATTERN CONSISTENT WITH PULMONARY DISEASE Compared to ECG 08/29/2021 08:56:07 Incomplete right bundle-branch block no longer present Electronically Signed On 08-29-2021 12:16:30 DIALYSIS NURSE by Wali Martinez M.D. [id number]
[2021-08-29 10:28] LABS: Troponin(5th) Baseline 36 ng/L (0-15)
[2021-08-29 10:36] LABS: Alanine Aminotransferase 9 U/L (0-41); Albumin Level 3.8 g/dL (3.5-5.2); Alkaline Phosphatase 239 IU/L (40-130); Anion Gap 14.5 (5-19); Aspartate Amino Transferase 10 U/L (0-40); Blood Urea Nitrogen 18 mg/dL (6-20); Calcium 8.8 mg/dL (8.5-10.5); Carbon Dioxide 32 mmol/L (22-29); Chloride 99 mmol/L (98-107); Globulin 3.8 g/dL (1.3-4.6); Glomerular Filtration Rate 64.4 mL/min (90-130); Glucose 139 mg/dL (65-115); NT Pro B Type Natriuretic Pept 3162 pg/mL (0-125); Osmolality Calculated 298 mOsm/kg (285-295); Potassium 3.5 mmol/L (3.5-5.1); Sodium 142 mmol/L (136-145); Total Bilirubin 1.1 mg/dL (0.15-1.2); Total Protein 7.6 g/dL (6.6-8.7)
[2021-08-29 11:15] LABS: ABG PH Result 7.31 (7.35-7.45); Arterial Blood Gas Hematocrit 26.6 % (42-52); Base Excess ABG 9.6 mmol/L (-2.0-2.0); Blood Gas Allen Test Pos; Blood Gas Sample Type Arterial; Carboxyhemoglobin 1.6 %THgb (0.4-20.1); HCO3 ABG 37.5 mmol/L (22-26); HGB O2 Sat 90.4 % (95-100); Ionized Calcium Level - ABG 1.2 mmol/L (1.1-1.4); Methemoglobin 0.8 % (0.4-1.5); Oxygen Saturation ABG 92.7; PO2 ABG 71.2 mmHg (80.0-100.0); Potassium Level - ABG 3.5 mmol/L (3.5-5.0); Total Hemoglobin 8.7 g/dL (14-18)
[2021-08-29 11:16] LABS: ABG PCO2 74.1 mmHg (35-45); Alveolar-Arterial Oxygen Gradi 20.8 mmHg (5-10); Blood Gas Operator Identificat ED; Blood Gas Sample Site Radial, left; Oxygen Device BIPAP
--- NOTE | 2021-08-29 11:25 | PC.PHAR ---
pt unable to verify medications-medications entered are [facility] and from what ext med history shows has been filled-notes are made in the pharmacy comments
[2021-08-29 11:30] LABS: Troponin 5 2HR 33.06 ng/L (0-15)
[2021-08-29] MEDS: FUROsemide 10 mg/mL SDV 10mL 80 MG IVP ×2 (11:32→20:11)
[2021-08-29 11:36] LABS: Troponin 5 2HR Delta -2.94 ABS# (0-10)
[2021-08-29] MEDS: lidocaine 1% 5 ML in potassium chloride premix 100 ML 25 ML IV (12:16)
--- NOTE | 2021-08-29 12:30 | PM.HP ---
Providers/Chief Complaint Admitting Physician: Anthony Michaels MD Hospitalist Primary Care Provider: Stewart Rosario MD Chief Complaint: CHEST PAIN History of Present Illness Arnol Guzman is a 51 year old male who presents to the emergency department with shortness of breath. He has difficulty get any history from, as he is on BiPAP. I can awaken him vigorously and he will answer a few questions. He relates he has not had fever, and no chest pain. The emergency department history relates that he felt weak, and short of breath. He had a similar complaint on August 22, and had chest pain as a complaint on August 18 when he also complained of suicidal ideation. He is frequently in the emergency department, has unknown compliance with his medication and other treatments. I am able to wake him up and specifically ask him if he had any overdose and he denies this as well. He denies suicidal ideation. He received Lasix, potassium, and BiPAP in the emergency department. Review of Systems General: Reports: ROS unobtainable due to medical condition (Patient has some lethargy, and is on BiPAP and cannot obtain adequate revie) Medications/Allergies Home Medications Medication Instructions Recorded Confirmed Last Taken Type atorvastatin 80 mg tablet (Lipitor) 80 mg PO BEDTIME 07/14/19 08/29/21 07/24/21 History montelukast 10 mg tablet 10 mg PO BEDTIME 07/14/19 08/29/21 07/24/21 History (Singulair) omeprazole 40 mg capsule,delayed 40 mg PO QAM 07/14/19 08/29/21 07/24/21 History release oxygen-air delivery systems #1 03/11/20 08/29/21 Unknown History albuterol sulfate 90 mcg/actuation 2 puff INHALATION QID PRN 05/19/20 08/29/21 07/25/21 History aerosol inhaler aspirin 81 mg tablet,delayed 81 mg PO QAM 09/13/20 08/29/21 07/24/21 History release atenolol 100 mg tablet (Tenormin) 100 mg PO QAM 11/24/20 08/29/21 07/24/21 History mometasone-formoterol HFA 200 2 puff INHALATION BID 11/24/20 08/29/21 07/24/21 History mcg-5 mcg/actuation aerosol inhaler (Dulera) allopurinol 100 mg tablet 100 mg PO QAM 02/16/21 08/29/21 07/24/21 History lisinopril 5 mg tablet 5 mg PO QAM 02/16/21 08/29/21 07/24/21 History sitagliptin 50 mg-metformin 1,000 1 tab PO BID 02/16/21 08/29/21 07/24/21 History mg tablet (Janumet) folic acid 1 mg tablet 1 mg PO QAM 06/20/21 08/29/21 07/24/21 History ferrous sulfate 325 mg (65 mg 325 mg PO BID 06/22/21 08/29/21 07/24/21 History iron) tablet insulin detemir U-100 100 unit/mL 6 unit SUBCUT DAILY 07/13/21 08/29/21 Unknown History (3 mL) subcutaneous pen (Levemir FlexTouch U-100 Insulin) sertraline 50 mg tablet 50 mg PO DAILY 07/13/21 08/29/21 07/24/21 History tamsulosin 0.4 mg capsule 0.4 mg PO DAILY 07/13/21 08/29/21 07/24/21 History ziprasidone HCl 40 mg capsule 40 mg PO DAILY@17 07/13/21 08/29/21 07/24/21 History acetaminophen 325 mg capsule 325 mg PO Q6H PRN #14 cap 07/15/21 08/29/21 Unknown Rx (Tylenol) bumetanide 1 mg tablet 1 mg PO BID #60 tab 07/26/21 08/29/21 Unknown Rx glipizide 10 mg tablet, extended 10 mg PO QAM #30 tab 07/26/21 08/29/21 07/24/21 Rx release 24 hr ascorbic acid (vitamin C) 500 mg 500 mg PO BID 08/18/21 08/29/21 Unknown History tablet (Vitamin C) furosemide 40 mg tablet 80 mg PO DAILY 08/18/21 08/29/21 Unknown History Allergies Allergy/AdvReac Type Severity Reaction Status Date / Time Penicillins Allergy ALGY-Hives Verified 08/22/21 06:59 diltiazem [From Cardizem] AdvReac ADR/ALGY-Pa Verified 08/22/21 06:59 lpitations PFSH Acute PFSH: Medical History Anemia -has chronic iron deficiency anemia, baseline Hg is around 9-10 Chest pain CHF (congestive heart failure) -Echo (07/2019): EF=68%, normal diastolic function, no RWMA -on oral lasix -no acute exacerbation currently Decubitus ulcer limited to breakdown of skin (stage 2) Diabetes -NIDDM type II -A1c (11/2019): 8.2 -Accuchecks, ISS, hypoglycemia precautions -consistent carb diet -anticipate hyperglycemia with steroid use Gout Hyperlipemia, mixed Hypertension -VSS; continue to monitor -continue oral antihypertensives Morbid (severe) obesity due to excess calories OPAL (obstructive sleep apnea) -in the process of getting CPAP set up Pneumonia Psychiatric care Transient cerebral ischemia Surgical History History of adenoidectomy History of hernia repair History of tonsillectomy History of umbilical hernia repair Family History Mother Hypertension CAD (coronary artery disease) Stroke Social History Smoking and tobacco status: never smoked Second hand smoke exposure: Yes Alcohol intake: never Adopted: No Caregiver/support person: No Lives independently: Yes Household members: family and friend(s) Housing: Manufactured/Mobile home Marital status: Single Number of children: 0 Number of grandchildren: 0 Highest education level completed: 8th Grade service: No Current occupational status: disabled Pets and animals: No History of recent travel: No Leisure activites: other Leisure activities details: play card games Sexually active: No Current gender identity: Male Yolanda/Alevism: Other Special yolanda needs: No Agree to transfusion: Yes Financial difficulty paying for basics: Hard Vitals/I&O/Wt Last Vital Signs Temp 98.2 F 08/29/21 09:28 Pulse 68 08/29/21 11:17 Resp 22 H 08/29/21 09:28 BP 151/72 08/29/21 09:28 Pulse Ox 95 08/29/21 11:17 Weight last 48 hrs Weight 244.94 kg Physical Exam Narrative: General exam is a white male, on BiPAP, who will awaken if vigorously stimulated. HEENT: Atraumatic normocephalic. BiPAP is in place. Edema is noted of his eyelids. Neck is supple obese without lymphadenopathy thyromegaly Cardiovascular regular rate and rhythm, no murmur Lungs diminished breath sounds bilaterally. No wheezes or crackles. Abdomen is soft. With positive bowel sounds. Edematous wall. demonstrates significantly swollen scrotum. I cannot delineate his penis from the position he is in. Nursing describes that they were unable to put a Shaw in secondary to his edema. Extremities 1-2+ edema Skin no rash Neuro no obvious focal deficits Data : 08/29/21 08:30 08/29/21 09:50 Other Labs: Chest x-ray is of poor quality. It is difficult to tell if there is any infiltrate. EKG demonstrates a rate of 76, normal axis, sinus rhythm, incomplete right bundle, Rapid Covid test is negative CTA done in July was negative, although limited by body habitus. Echocardiogram in July demonstrated an ejection fraction of 55%, moderate pulmonary hypertension, 2/4 diastolic dysfunction Initial ABG demonstrated hypercarbic respiratory failure with some acidosis. The last EKG he has had on BiPAP is a pH 7.36, PCO2 64, PO2 of 91 on 40% LFTs normal with exception of alk phos of 239 Troponin 36 with repeat of 33 BNP of 3126 Albumin 3.8 A&P Assessment and plan (1) CHF (congestive heart failure): Consistent with acute diastolic heart failure He has had a recent echocardiogram. This does not need to be repeated. Of note he has some RV dysfunction on that echocardiogram likely from his morbid obesity and sleep apnea that for the large part has been untreated secondary to his noncompliance with CPAP/BiPAP at home Diuresis with 80 mg of Lasix every 12 hours Close follow-up of electrolytes Wean off BiPAP as tolerated Status: Acute (2) Acute respiratory failure with hypoxia and hypercapnia: Secondary to acute diastolic heart failure. His last echocardiogram did demonstrate some pulmonary hypertension, RV dysfunction likely related to his morbid obesity and untreated sleep apnea. However, will check a D-dimer as his CTA previously was of poor quality and he is recently had complaints of chest discomfort. Continue BiPAP, wean off as tolerated Try to keep oxygen saturations around 88 to 92%. He will retain more CO2 if he is hyperoxygenated. Secondary to his respiratory failure will obtain a Covid PCR to ensure this is not playing a role. Status: Acute (3) Anemia: Longstanding iron deficiency anemia Continue to monitor Protonix for GI prophylaxis Status: Acute (4) Morbid obesity: Encourage weight loss. Status: Acute Plan Diabetes mellitus. Sliding scale insulin. Multiple other medical problems as outlined in past medical history Full code Lovenox for DVT prophylaxis. Attestations Medical Necessity Statement*: Will need greater than 2 midnight stay secondary to severity of acute respiratory failure associated with acute diastolic heart failure. Coding Level of Care Code Acute Residential Life Director for Tiffanie Piyush Diagnoses CHF (congestive heart failure) I50.9 Acute respiratory failure with hypoxia and hypercapnia J96.01; J96.02 Anemia D64.9 Morbid obesity E66.01
[2021-08-29 12:33] LABS: ABG PH Result 7.36 (7.35-7.45); Arterial Blood Gas Hematocrit 27.5 % (42-52); Base Excess ABG 8.7 mmol/L (-2.0-2.0); Blood Gas Allen Test Pos; Blood Gas Sample Type Arterial; Carboxyhemoglobin 1.5 %THgb (0.4-20.1); HCO3 ABG 35.7 mmol/L (22-26); HGB O2 Sat 95.3 % (95-100); Methemoglobin 0.5 % (0.4-1.5); Oxygen Saturation ABG 97.2; PO2 ABG 90.8 mmHg (80.0-100.0); Potassium Level - ABG 3.7 mmol/L (3.5-5.0)
[2021-08-29 12:34] LABS: Blood Gas Operator Identificat MONRP; Blood Gas Sample Site Radial, left; Oxygen Device BIPAP
--- NOTE | 2021-08-29 13:14 | PC.NURSE ---
Multiple attempts to place silva w multiple staff members w/o success.
[2021-08-29 13:25] LABS: Glucose Urine UA Norm (Normal); Protein Urine 1+ (Negative); Specific Gravity, Urine 1.015 (1.005-1.030); Urine Appearance Clear (CLEAR); Urine Color Yellow (Yellow); pH Urine 5 (5-7)
[2021-08-29 13:26] LABS: Add Urine Culture? No; Bacteria Urine TRACE /hpf; Bilirubin Urine Neg (Negative); Blood Urine Neg (Negative); Hyaline Casts Urine 0-4 /lpf; Ketones Urine 1+ (Negative); Leukocyte Esterase Urine 1+ (Negative); Nitrate Urine Negative (Negative); Squamous Epithelial Cell Urine 0-4 /hpf (0-5); Urobilinogen Urine 1 mg/dL (Negative)
--- NOTE | 2021-08-29 13:31 | PC.NURSE ---
Constant alarming from BiPap d/t ill fitting mask. Paged RT
[2021-08-29 13:37] LABS: D Dimer 2.02 ug/mIFEU (0-0.59)
[2021-08-29] MEDS: ipratropium-albuterol 3 mL Neb INHALATION ×2 (14:05→20:39)
--- NOTE | 2021-08-29 14:22 | ECG_ITS ---
[facility] Test Date: 2021-08-29 Pat Name: Arnol Guzman Department: Room: Gender: Male Insights Analyst: : 1970 Requested By: Malena Carranza Order Number: [id number] Bernardino MD: Wali Martinez M.D. Measurements Intervals [place] Rate: 67 P: 102 [place]: 191 QRS: 109 QRSD: 96 T: 93 QT: 412 QTc: 435 Interpretive Statements SINUS RHYTHM RIGHT AXIS DEVIATION [QRS AXIS > 100] LOW QRS VOLTAGE IN PRECORDIAL LEADS [QRS DEFLECTION < 1.0 mV IN CHEST LEADS] PATTERN CONSISTENT WITH PULMONARY DISEASE Compared to ECG 08/29/2021 10:19:27 No significant changes Electronically Signed On 08-29-2021 22:21:17 HEALTH EDUCATION SPECIALIST by Wali Martinez M.D. [id number]
[2021-08-29 14:56] LABS: Adenovirus Not Detected (NOT DETECT); Chlamydia Pneumoniae Not Detected (NOT DETECT); Coronavirus 229E,HKU1,NL63,OC4 Not Detected (NOT DETECT); Human Metapneumovirus Not Detected (NOT DETECT); Human Rhinovirus/Enterovirus Not Detected (NOT DETECT); Influenza A Not Detected (NOT DETECT); Influenza A H1 Not Detected (NOT DETECT); Influenza A H1-2009 Not Detected (NOT DETECT); Influenza A H3 Not Detected (NOT DETECT); Influenza B Not Detected (NOT DETECT); Mycoplasma Pneumoniae Not Detected (NOT DETECT); Parainfluenza Virus Type 1 Not Detected (NOT DETECT); Parainfluenza Virus Type 2 Not Detected (NOT DETECT); Parainfluenza Virus Type 3 Not Detected (NOT DETECT); Parainfluenza Virus Type 4 Not Detected (NOT DETECT); Respiratory Syncytial Virus A Not Detected (NOT DETECT); Respiratory Syncytial Virus B Not Detected (NOT DETECT); SARS-COV-2 Not Detected (NOT DETECT)
--- NOTE | 2021-08-29 15:19 | PC.NURSE ---
ICU admit- Patient arrived via ER bed at approximately 1500. Shaw inserted after arrival. Patient resting in bed.
[2021-08-29] MEDS: cefTRIAXone 1,000 MG in sodium chloride 0.9% (plus) 50 ML 100 MG IV (15:51)
[2021-08-29] MEDS: enoxaparin 40 mg/0.4 mL Syringe SUBCUT (15:51)
[2021-08-29 17:16] LABS: Glucose Point of Care 95 mg/dL (70-110)
[2021-08-29] MEDS: montelukast sodium 10 mg Tablet PO (20:10)
[2021-08-29] MEDS: atorvastatin 40 mg Tablet 80 MG PO (20:10)
[2021-08-29 20:29] LABS: Glucose Point of Care 118 mg/dL (70-110)
[2021-08-29] MEDS: budesonide 0.5 mg/2 mL Neb INHALATION (20:39)
[2021-08-29] MEDS: iohexol 350 mg/mL 100 mL Btl IV (21:12)
[2021-08-30] VITALS (84 sets, daily range): BP systolic 88–157; BP diastolic 36–90; PULSE 59–86; RESP 0–35; TEMP 36–37.2; O2SAT 69–100; BMI 77.3; BMI 75.2
[2021-08-30] MEDS: ipratropium-albuterol 3 mL Neb INHALATION ×4 (03:17→21:12)
[2021-08-30 03:44] LABS: Basophils % 0.6 %; Eosinophils % 0.7 %; Hemoglobin 8.3 g/dL (11.7-16.6); Lymphocytes # 0.8 10^3/uL (0.8-4.8); Lymphocytes % 14.9 %; Mean Corpuscular HGB Conc 26.8 g/dL (30.0-36.0); Mean Corpuscular Hemoglobin 22.3 pg (28.0-34.0); Mean Corpuscular Volume 83.1 fl (80-94); Mean Platelet Volume 9.7 fL (7.4-10.4); Monocytes # 0.6 10^3/uL (0.2-0.9); Monocytes % 10.1 %; Neutrophils # 3.99 10^3/uL (1.8-7.7); Neutrophils % 73.5 %; Nucleated Red Blood Cells % 0 %; Platelet Count 241 10^3/cmm (130-400); Red Blood Count 3.73 10^6/uL (4.1-5.3); Red Cell Distribution Width 20.4 % (12.1-15.1); White Blood Count 5.4 10^3/uL (4.0-10.0)
[2021-08-30 03:54] LABS: Blood Urea Nitrogen 21 mg/dL (6-20); Calcium 9.2 mg/dL (8.5-10.5); Carbon Dioxide 34 mmol/L (22-29); Chloride 100 mmol/L (98-107); Glomerular Filtration Rate 58.7 mL/min (90-130); Glucose 101 mg/dL (65-115); Magnesium 1.9 mg/dL (1.7-2.3); Osmolality Calculated 299 mOsm/kg (285-295); Sodium 143 mmol/L (136-145)
[2021-08-30 04:00] LABS: Creatinine Clr Calc Pharmacy 102.3019
[2021-08-30] MEDS: aspirin 81 mg EC Tablet PO (05:18)
[2021-08-30] MEDS: allopurinol 100 mg Tablet PO (05:18)
[2021-08-30] MEDS: pantoprazole DR 40 mg Tablet PO (05:18)
--- NOTE | 2021-08-30 07:21 | P.PN_ITS ---
Subjective Subjective: Arnol reports he is doing okay. He wants the BiPAP off. No chest pain. We discussed the CT scan results. Medications: Reviewed: Yes Vitals/I&O/Wt Last Vital Signs Temp 98.0 F 08/30/21 06:00 Pulse 59 L 08/30/21 06:32 Resp 12 08/30/21 06:15 BP 103/37 08/30/21 06:32 Pulse Ox 97 08/30/21 06:15 08/29/21 08/30/21 08/30/21 22:59 06:59 14:59 Intake Total 849 / 849 222 / 1071 Output Total 1375 / 1375 360 / 1735 Balance -526 / -526 -138 / -664 Weight last 48 hrs Weight 185.791 kg Weight 184.612 kg Weight 244.94 kg Physical Exam Narrative: General exam no distress, on BiPAP Neck is supple obese without lymphadenopathy thyromegaly Cardiovascular regular rate and rhythm, no murmur Lungs diminished breath sounds bilaterally. No wheezes or crackles. Abdomen is soft. With positive bowel sounds. Abdominal wall still edematous Shaw is in Extremities 2+ edema. No cyanosis or clubbing Urinary Catheter Management: Shaw: Cath Placed During This Visit: yes Reason for Continuing Indwelling Catheter: Acute Urinary Retention or Ob struction Urinary Catheter Date of Insertion: 08/29/21 Urinary Catheter Time of Insertion: 15:15 Data : 08/30/21 03:28 08/30/21 03:28 A&P Assessment and plan (1) CHF (congestive heart failure): Consistent with acute diastolic heart failure He has had a recent echocardiogram. This does not need to be repeated. Of note he has some RV dysfunction on that echocardiogram likely from his morbid obesity and sleep apnea that for the large part has been untreated secondary to his noncompliance with CPAP/BiPAP at home Diuresis with 80 mg of Lasix every 12 hours Potassium and magnesium normal this morning Wean off BiPAP as tolerated Transfer to CSU if does well off BiPAP this morning Status: Acute (2) Acute respiratory failure with hypoxia and hypercapnia: Secondary to acute diastolic heart failure. His last echocardiogram did demonstrate some pulmonary hypertension, RV dysfunction likely related to his morbid obesity and untreated sleep apnea. D- dimer was elevated. He has obvious pulmonary hypertension. CTA repeated, no pulmonary embolism Continue BiPAP, wean off as tolerated. Should wear whenever sleeping and at night Try to keep oxygen saturations around 88 to 92%. He will retain more CO2 if he is hyperoxygenated. Covid PCR was negative Status: Acute (3) Anemia: Longstanding iron deficiency anemia Continue to monitor Protonix for GI prophylaxis Status: Acute (4) Morbid obesity: Encourage weight loss. Status: Acute Plan Diabetes mellitus. Sliding scale insulin. Hypertension. Blood pressures have gone down with diuresis. Will discontinue lisinopril for now. Reduce beta-ced as heart rate below 60 times and blood pressure lower. May be difficult to diurese secondary to pulmonary hypertension. Multiple other medical problems as outlined in past medical history Full code Lovenox for DVT prophylaxis. Attestations Medical Necessity Statement*: Needs continued hospital stay secondary to acute diastolic heart failure. Coding Level of Care Code Acute Log Loader Helper for [facility] Fwd Diagnoses CHF (congestive heart failure) I50.9 Acute respiratory failure with hypoxia and hypercapnia J96.01; J96.02 Anemia D64.9 Morbid obesity E66.01
[2021-08-30 07:54] LABS: Glucose Point of Care 115 mg/dL (70-110)
[2021-08-30] MEDS: budesonide 0.5 mg/2 mL Neb INHALATION (08:12)
[2021-08-30] MEDS: potassium chloride ER 20 mEq Tablet 40 MEQ PO (08:15)
[2021-08-30] MEDS: tamsulosin 0.4 mg Capsule PO (08:15)
[2021-08-30] MEDS: sertraline 50 mg Tablet PO (08:15)
[2021-08-30] MEDS: FUROsemide 10 mg/mL SDV 10mL 80 MG IVP ×2 (08:16→20:08)
--- NOTE | 2021-08-30 10:27 | PC.NURSE ---
Moved to CSU room 103 at approximately 1020. Patient resting comfortably in bed at 2L NC. TITLE INSURANCE SALES REPRESENTATIVE in room. Chart left with front end loader driver staff.
--- NOTE | 2021-08-30 10:47 | PC.NURSE ---
Patient output 450ml of urine via silva catheter.
[2021-08-30 11:22] LABS: Glucose Point of Care 136 mg/dL (70-110)
[2021-08-30] MEDS: sennosides-docusate Tablet 2 TAB PO (13:34)
[2021-08-30] MEDS: cefTRIAXone 1,000 MG in sodium chloride 0.9% (plus) 50 ML 100 MG IV (14:53)
[2021-08-30] MEDS: enoxaparin 40 mg/0.4 mL Syringe SUBCUT (14:54)
[2021-08-30 16:14] LABS: Glucose Point of Care 130 mg/dL (70-110)
[2021-08-30] MEDS: ziprasidone hcl 40 mg Capsule PO (16:58)
[2021-08-30 20:01] LABS: Glucose Point of Care 149 mg/dL (70-110)
[2021-08-30] MEDS: montelukast sodium 10 mg Tablet PO (20:08)
[2021-08-30] MEDS: insulin lispro 100 unit/1 mL SUBCUT (20:08)
[2021-08-30] MEDS: atorvastatin 40 mg Tablet 80 MG PO (20:08)
[2021-08-30] MEDS: LORazepam 0.5 mg Tablet PO (21:32)
--- NOTE | 2021-08-30 23:38 | PC.NURSE ---
Patient's silva bag leaked onto floor. Silva bag replaced using sterile technique. Unable to measure urine output.
[2021-08-31] VITALS (17 sets, daily range): BP systolic 133–160; BP diastolic 74–89; PULSE 48–90; RESP 18–28; TEMP 36.6–36.9; O2SAT 35–100
[2021-08-31] MEDS: ipratropium-albuterol 3 mL Neb INHALATION ×4 (02:21→22:32)
[2021-08-31 04:34] LABS: Basophils % 0.4 %; Eosinophils % 0.6 %; Hematocrit 31.5 % (42.0-52.0); Hemoglobin 8.4 g/dL (11.7-16.6); Lymphocytes # 0.8 10^3/uL (0.8-4.8); Lymphocytes % 15.8 %; Mean Corpuscular HGB Conc 26.7 g/dL (30.0-36.0); Mean Corpuscular Volume 82.7 fl (80-94); Mean Platelet Volume 9.6 fL (7.4-10.4); Monocytes # 0.5 10^3/uL (0.2-0.9); Monocytes % 9.7 %; Neutrophils % 73.3 %; Nucleated Red Blood Cells % 0 %; Platelet Count 226 10^3/cmm (130-400); Red Blood Count 3.81 10^6/uL (4.1-5.3); Red Cell Distribution Width 20.6 % (12.1-15.1); White Blood Count 5.1 10^3/uL (4.0-10.0)
[2021-08-31 04:53] LABS: Anion Gap 11.9 (5-19); Blood Urea Nitrogen 22 mg/dL (6-20); Calcium 9.6 mg/dL (8.5-10.5); Carbon Dioxide 36 mmol/L (22-29); Chloride 100 mmol/L (98-107); Glomerular Filtration Rate 58.7 mL/min (90-130); Glucose 107 mg/dL (65-115); Magnesium 1.9 mg/dL (1.7-2.3); Osmolality Calculated 302 mOsm/kg (285-295); Potassium 3.9 mmol/L (3.5-5.1); Sodium 144 mmol/L (136-145)
[2021-08-31] MEDS: allopurinol 100 mg Tablet PO (05:04)
[2021-08-31] MEDS: pantoprazole DR 40 mg Tablet PO (05:04)
[2021-08-31] MEDS: aspirin 81 mg EC Tablet PO (05:04)
[2021-08-31] MEDS: atenolol 50 mg Tablet PO (05:04)
[2021-08-31 06:38] LABS: Glucose Point of Care 149 mg/dL (70-110)
[2021-08-31] MEDS: budesonide 0.5 mg/2 mL Neb INHALATION ×2 (08:36→22:31)
[2021-08-31] MEDS: insulin lispro 100 unit/1 mL SUBCUT ×3 (08:39→16:43)
[2021-08-31] MEDS: sennosides-docusate Tablet 2 TAB PO (08:39)
[2021-08-31] MEDS: potassium chloride ER 20 mEq Tablet 40 MEQ PO (08:39)
[2021-08-31] MEDS: tamsulosin 0.4 mg Capsule PO (08:40)
[2021-08-31] MEDS: sertraline 50 mg Tablet PO (08:40)
[2021-08-31] MEDS: FUROsemide 10 mg/mL SDV 10mL 80 MG IVP ×2 (08:40→20:43)
--- NOTE | 2021-08-31 08:42 | P.PN_ITS ---
Subjective Subjective: Arnol reports he is feeling better. Less short of breath. No chest discomfort. Feels less swollen. Medications: Reviewed: Yes Vitals/I&O/Wt Last Vital Signs Temp 98 F 08/31/21 03:52 Pulse 88 08/31/21 08:38 Resp 18 08/31/21 08:41 BP 142/74 08/31/21 07:30 Pulse Ox 98 08/31/21 08:41 08/30/21 08/31/21 08/31/21 22:59 06:59 14:59 Intake Total 406 / 1203 Output Total 580 / 580 1600 / 2180 250 / 250 Balance -174 / 623 -1600 / -977 -250 / -250 Weight last 48 hrs Weight 180.303 kg Weight 180.711 kg Weight 185.791 kg Weight 184.612 kg Weight 244.94 kg Physical Exam Narrative: General exam no distress, reports he wore BiPAP last night, 1800 cc negative Neck is supple obese without lymphadenopathy thyromegaly Cardiovascular regular rate and rhythm, no murmur Lungs diminished breath sounds bilaterally. No wheezes or crackles. Abdomen is soft. With positive bowel sounds. Abdominal wall still edematous Shaw is in Extremities 1+ edema. No cyanosis or clubbing Urinary Catheter Management: Shaw: Cath Placed During This Visit: yes Reason for Continuing Indwelling Catheter: Acute Urinary Retention or Obs truction Urinary Catheter Date of Insertion: 08/29/21 Urinary Catheter Time of Insertion: 15:15 Data : 08/31/21 03:57 08/31/21 03:57 A&P Assessment and plan (1) CHF (congestive heart failure): Consistent with acute diastolic heart failure He has had a recent echocardiogram. This does not need to be repeated. Of note he has some RV dysfunction on that echocardiogram likely from his morbid obesity and sleep apnea that for the large part has been untreated secondary to his noncompliance with CPAP/BiPAP at home Diuresis with 80 mg of Lasix every 12 hours. He is diuresing well. Continue. Potassium and magnesium normal even with diuresis Encouraged to wear BiPAP all the time when sleeping and napping Add acetazolamide secondary to worsening metabolic alkalosis Status: Acute (2) Acute respiratory failure with hypoxia and hypercapnia: Secondary to acute diastolic heart failure. His last echocardiogram did demonstrate some pulmonary hypertension, RV dysfunction likely related to his morbid obesity and untreated sleep apnea. D- dimer was elevated. He has obvious pulmonary hypertension. CTA repeated, no pulmonary embolism Try to keep oxygen saturations around 88 to 92%. He will retain more CO2 if he is hyperoxygenated. Covid PCR was negative This has improved significantly and he is down to 2 L nasal cannula when awake Status: Acute (3) Anemia: Longstanding iron deficiency anemia Repeat studies. If still iron deficient consider transfusion of iron. Protonix for GI prophylaxis Status: Acute (4) Morbid obesity: Encourage weight loss. Status: Acute Plan Diabetes mellitus. Sliding scale insulin. Hypertension. Blood pressures have gone down with diuresis. Will discontinue lisinopril for now. Reduce beta-ced as heart rate below 60 times and blood pressure lower. May be difficult to diurese secondary to pulmonary hypertension. Overall blood pressure is now more stable. Multiple other medical problems as outlined in past medical history Full code Lovenox for DVT prophylaxis. Attestations Medical Necessity Statement*: Needs continued diuresis secondary to anasarca with acute diastolic heart failure. Coding Level of Care Code Acute Project Manager/Team Coach for Zac Pickett Diagnoses CHF (congestive heart failure) I50.9 Acute respiratory failure with hypoxia and hypercapnia J96.01; J96.02 Anemia D64.9 Morbid obesity E66.01
[2021-08-31] MEDS: acetaZOLAMIDE 250 mg Tablet PO (08:59)
[2021-08-31 09:11] LABS: Ferritin 31 ng/mL (30-400); Iron 19 ug/dL (59-158); Percent Saturation 6.6 % (20-50); Total Iron Binding Capacity 284 mcg/dl; Unsaturated Iron Binding 265 ug/dL (112-347)
[2021-08-31] MEDS: nystatin cream 30 gm 1 APPLIC TOPICAL ×2 (11:16→16:43)
[2021-08-31 12:33] LABS: Glucose Point of Care 211 mg/dL (70-110)
[2021-08-31] MEDS: cefTRIAXone 1,000 MG in sodium chloride 0.9% (plus) 50 ML 100 MG IV (13:45)
[2021-08-31] MEDS: enoxaparin 40 mg/0.4 mL Syringe SUBCUT (13:49)
[2021-08-31 15:55] LABS: Glucose Point of Care 148 mg/dL (70-110)
[2021-08-31] MEDS: ziprasidone hcl 40 mg Capsule PO (16:42)
[2021-08-31] MEDS: montelukast sodium 10 mg Tablet PO (20:44)
[2021-08-31] MEDS: atorvastatin 40 mg Tablet 80 MG PO (20:44)
[2021-09-01] VITALS (9 sets, daily range): BP systolic 140–173; BP diastolic 67–77; PULSE 64–81; RESP 18–22; TEMP 36.6–37.1; O2SAT 91–94; BMI 74.9
[2021-09-01] MEDS: ipratropium-albuterol 3 mL Neb INHALATION ×2 (04:03→09:08)
[2021-09-01] MEDS: atenolol 50 mg Tablet PO (05:23)
[2021-09-01] MEDS: allopurinol 100 mg Tablet PO (05:23)
[2021-09-01] MEDS: aspirin 81 mg EC Tablet PO (05:23)
[2021-09-01] MEDS: pantoprazole DR 40 mg Tablet PO (05:23)
[2021-09-01 07:32] LABS: Basophils % 0.5 %; Eosinophils % 0.5 %; Hematocrit 32.2 % (42.0-52.0); Hemoglobin 8.5 g/dL (11.7-16.6); Lymphocytes # 0.7 10^3/uL (0.8-4.8); Lymphocytes % 15.1 %; Mean Corpuscular HGB Conc 26.4 g/dL (30.0-36.0); Mean Corpuscular Hemoglobin 22.4 pg (28.0-34.0); Mean Corpuscular Volume 84.7 fl (80-94); Mean Platelet Volume 9.5 fL (7.4-10.4); Monocytes # 0.4 10^3/uL (0.2-0.9); Monocytes % 8.5 %; Neutrophils # 3.28 10^3/uL (1.8-7.7); Neutrophils % 75.2 %; Nucleated Red Blood Cells % 0 %; Platelet Count 221 10^3/cmm (130-400); Red Cell Distribution Width 20.4 % (12.1-15.1); White Blood Count 4.4 10^3/uL (4.0-10.0)
[2021-09-01 07:35] LABS: Glucose Point of Care 116 mg/dL (70-110)
[2021-09-01 07:48] LABS: Anion Gap 10.1 (5-19); Blood Urea Nitrogen 22 mg/dL (6-20); Calcium 9.6 mg/dL (8.5-10.5); Carbon Dioxide 36 mmol/L (22-29); Chloride 100 mmol/L (98-107); Glomerular Filtration Rate 58.7 mL/min (90-130); Glucose 122 mg/dL (65-115); Osmolality Calculated 299 mOsm/kg (285-295); Potassium 4.1 mmol/L (3.5-5.1); Sodium 142 mmol/L (136-145)
[2021-09-01] MEDS: budesonide 0.5 mg/2 mL Neb INHALATION (09:08)
[2021-09-01] MEDS: bumetanide 1 mg Tablet 2 MG PO (09:50)
[2021-09-01] MEDS: nystatin cream 30 gm 1 APPLIC TOPICAL (09:50)
[2021-09-01] MEDS: sertraline 50 mg Tablet PO (09:51)
[2021-09-01] MEDS: potassium chloride ER 20 mEq Tablet 40 MEQ PO (09:51)
[2021-09-01] MEDS: tamsulosin 0.4 mg Capsule PO (09:51)
[2021-09-01] MEDS: acetaZOLAMIDE 250 mg Tablet PO (09:51)
--- NOTE | 2021-09-01 11:59 | P.DS_ITS ---
Discharge Providers Date of Admission: 08/29/21 14:31 Date of Discharge: September 01, 2021 Attending Provider at Admission: Anthony Michaels MD Attending Provider at Discharge: Anthony Michaels MD Primary Care Provider: Stewart Rosario MD Diagnoses at Discharge Discharge Diagnosis (1) CHF (congestive heart failure): Status: Acute (2) Acute respiratory failure with hypoxia and hypercapnia: Status: Acute (3) Anemia: Status: Acute Permanent problem details: -has chronic iron deficiency anemia, baseline Hg is around 9-10 (4) Morbid obesity: Status: Acute Reason for Visit Reason for Visit: CHEST PAIN Hospital Course Hospital Course Arnol is a 51-year-old white male who presented to the hospital with acute hypoxic and hypercarbic respiratory failure with evidence of acute diastolic heart failure. He has had multiple previous admissions with similar complaints. He admitted to not using his sleep apnea machine at home lately. Compliance with medication was in question. He was placed on BiPAP, initially in the ICU and diuresis was initiated. He diuresed well, was able to be off BiPAP relatively soon and was weaned to his baseline amount of oxygen at 2 L. Further diuresis occurred during his hospital stay to where on September 01 it was thought he could be discharged home. At that time he was on his baseline oxygen requirement, and believed he did not have any significant lower extremity swelling. He was also treated in the hospital for possible UTI, although urine culture was ultimately negative he will not need outpatient IV antibiotics. Multiple medication changes occurred. I had a long discussion with him regarding wearing his sleep apnea machine at night and whenever sleeping so he would not retain CO2 and present for another admission. We discussed detention placement which would be ideal considering his frequent admissions but he refused. He will discharge today to home with home health. He needs to follow- up with his primary care provider early next week on Sunday and Sunday and have a CBC and BMP at that time. He was discharged home higher dose of Bumex, and acetazolamide to reduce the level of metabolic alkalosis that will likely occur with chronic use of this diuretic. CTA was performed on admission which demonstrated no pulmonary embolism. Fluid overload, hepatosplenomegaly was noted. Physical Exam Narrative: General exam no distress Neck is supple Cardiovascular regular rate and rhythm without murmur Lungs clear Abdomen is soft, positive bowel sounds Extremities no sinus clubbing. Only trace edema persisted. Urinary Catheter Management: Shaw: Cath Placed During This Visit: yes Reason for Continuing Indwelling Catheter: Acute Urinary Retention or Obstruction Urinary Catheter Date of Insertion: 08/29/21 Urinary Catheter Time of Insertion: 15:15 Discharge Data Studies Completed and Pending Completed Studies During Hospitalization Category Date Time Status CT angio chest PE protcl [id number] Routine Cat Scan 08/29/21 Completed XR chest 1V portable [id number] Urgent Exams 08/29/21 08:22 Completed Radiology Impressions Chest CTA 08/29/21 00:00 IMPRESSION: 1. No evidence of pulmonary embolism. 2. Prominent pulmonary trunk and central pulmonary arteries suggestive of pulmonary artery hypertension. 3. Mild right heart prominence with RV/LV ratio 1.18. 4. Scattered small bilateral noncalcified subpleural nodules or granulomas measuring up to 5 mm. For patients at low risk (minimal or absent history of smoking and of other known risk factors), no routine follow-up is indicated. For patients at high risk (history of smoking or of other known risk factors), consider optional CT Chest at 12 months. (Reference: Karan) 5. Hepatosplenomegaly. 6. Anasarca. REFERENCES: Karan Blackwood, et al. Guidelines for Management of Incidental Pulmonary Nodules Detected on CT Images: From the Fleischner Society 2017. Radiology. 2017;284(1):228-243. Chest X-Ray 08/29/21 08:22 IMPRESSION: 1. Cardiomegaly with shallow inspiration. 2. Mild pulmonary vascular congestion unchanged from previous. 3. No acute pulmonary infiltrates or significant pleural fluid.. Laboratory Results WBC 4.4 10^3/uL (4.0-10.0) 09/01/21 07:24 RBC 3.80 10^6/uL (4.1-5.3) L 09/01/21 07:24 Hgb 8.5 g/dL (11.7-16.6) L 09/01/21 07:24 Hct 32.2 % (42.0-52.0) L 09/01/21 07:24 MCV 84.7 fl (80-94) 09/01/21 07:24 MCH 22.4 pg (28.0-34.0) L 09/01/21 07:24 MCHC 26.4 g/dL (30.0-36.0) L 09/01/21 07:24 RDW 20.4 % (12.1-15.1) H 09/01/21 07:24 Plt Count 221 10^3/cmm (130-400) 09/01/21 07:24 MPV 9.5 fL (7.4-10.4) 09/01/21 07:24 Neut % (Auto) 75.2 % 09/01/21 07:24 Lymph % (Auto) 15.1 % 09/01/21 07:24 [place] % (Auto) 8.5 % 09/01/21 07:24 Eos % (Auto) 0.5 % 09/01/21 07:24 Baso % (Auto) 0.5 % 09/01/21 07:24 Neut # (Auto) 3.28 10^3/uL (1.8-7.7) 09/01/21 07:24 Lymph # (Auto) 0.7 10^3/uL (0.8-4.8) L 09/01/21 07:24 [place] # (Auto) 0.4 10^3/uL (0.2-0.9) 09/01/21 07:24 Eos # (Auto) 0.0 10^3/uL (0.0-0.8) 09/01/21 07:24 Baso # (Auto) 0.0 10^3/uL (0.0-0.1) 09/01/21 07:24 Nucleated RBC % (auto) 0 % 09/01/21 07:24 Nucleated RBCs # 0.0 /100WBC 09/01/21 07:24 D-Dimer 2.02 ug/mIFEU (0-0.59) H 08/29/21 13:07 Specimen Type Arterial 08/29/21 12:21 Sample Site Radial, left 08/29/21 12:21 ABG pH 7.36 (7.35-7.45) 08/29/21 12:21 ABG pCO2 64.0 mmHg (35-45) H* 08/29/21 12:21 ABG pO2 90.8 mmHg (80.0-100.0) 08/29/21 12:21 ABG HCO3 35.7 mmol/L (22-26) H 08/29/21 12:21 ABG O2 Saturation 97.2 08/29/21 12:21 ABG Base Excess 8.7 mmol/L (-2.0-2.0) H 08/29/21 12:21 Luis Test Pos 08/29/21 12:21 A-a O2 Gradient 15.0 mmHg (5-10) H 08/29/21 12:21 Hematocrit 27.5 % (42-52) L 08/29/21 12:21 Hgb O2 Saturation 95.3 % (95-100) 08/29/21 12:21 Carboxyhemoglobin 1.5 %THgb (0.4-20.1) 08/29/21 12:21 Methemoglobin 0.5 % (0.4-1.5) 08/29/21 12:21 Total Hemoglobin 9.0 g/dL (14-18) L 08/29/21 12:21 Sodium 143.0 mmol/L (131-143) 08/29/21 12:21 Potassium 3.7 mmol/L (3.5-5.0) 08/29/21 12:21 Glucose 125.0 mg/dL (70-115) H 08/29/21 12:21 Ionized Calcium Not Reportable 08/29/21 12:21 O2 Delivery Device Bipap 08/29/21 12:21 O2 Liters/Min 12.0 % 08/29/21 08:54 FiO2 40.0 % 08/29/21 12:21 Respiratory Scientist ID Monrp 08/29/21 12:21 Sodium 142 mmol/L (136-145) 09/01/21 07:24 Potassium 4.1 mmol/L (3.5-5.1) 09/01/21 07:24 Chloride 100 mmol/L (98-107) 09/01/21 07:24 Carbon Dioxide 36 mmol/L (22-29) H 09/01/21 07:24 Anion Gap 10.1 (5-19) 09/01/21 07:24 BUN 22 mg/dL (6-20) H 09/01/21 07:24 Creatinine 1.3 mg/dL (0.7-1.2) H 09/01/21 07:24 GFR Calculation 58.7 mL/min (90-130) L 09/01/21 07:24 Glucose 122 mg/dL (65-115) H 09/01/21 07:24 POC Glucose 116 mg/dL (70-110) H 09/01/21 07:18 Calculated Osmolality 299 mOsm/kg (285-295) H 09/01/21 07:24 Calcium 9.6 mg/dL (8.5-10.5) 09/01/21 07:24 Magnesium 1.9 mg/dL (1.7-2.3) 08/31/21 03:57 Iron 19 ug/dL (59-158) L 08/31/21 03:57 TIBC 284 mcg/dl 08/31/21 03:57 % Saturation 6.6 % (20-50) L 08/31/21 03:57 Unsat Iron Binding 265 ug/dL (112-347) 08/31/21 03:57 Ferritin 31 ng/mL (30-400) 08/31/21 03:57 Total Bilirubin 1.1 mg/dL (0.15-1.2) 08/29/21 09:50 AST 10 U/L (0-40) 08/29/21 09:50 ALT 9 U/L (0-41) 08/29/21 09:50 Alkaline Phosphatase 239 IU/L (40-130) H 08/29/21 09:50 Troponin T Baseline 36 ng/L (0-15) H 08/29/21 09:50 Troponin T 120 Minute 33.06 ng/L (0-15) H 08/29/21 11:07 Delta Troponin T -2.94 ABS# (0-10) L 08/29/21 11:07 Troponin T Hi Sens 6Hr 39.60 ng/L (0-15) H 08/29/21 16:39 Troponin T Hi Sens 6Hr Delta 3.60 ng/L (0-12) 08/29/21 16:39 NT-Pro-B Natriuret Pep 3162 pg/mL (0-125) H 08/29/21 09:50 Total Protein 7.6 g/dL (6.6-8.7) 08/29/21 09:50 Albumin 3.8 g/dL (3.5-5.2) 08/29/21 09:50 Globulin 3.8 g/dL (1.3-4.6) 08/29/21 09:50 Procalcitonin 0.10 ng/mL (0-0.5) 08/29/21 09:50 Urine Color Yellow (Yellow) 08/29/21 12:55 Urine Appearance Clear (CLEAR) 08/29/21 12:55 Urine pH 5 (5-7) 08/29/21 12:55 Ur Specific [place] 1.015 (1.005-1.030) 08/29/21 12:55 Urine Protein 1+ (Negative) H 08/29/21 12:55 Urine Glucose (UA) Norm (Normal) 08/29/21 12:55 Urine Ketones 1+ (Negative) H 08/29/21 12:55 Urine Blood Neg (Negative) 08/29/21 12:55 Urine Nitrate Negative (Negative) 08/29/21 12:55 Urine Bilirubin Neg (Negative) 08/29/21 12:55 Urine Urobilinogen 1 mg/dL (Negative) H 08/29/21 12:55 Ur Leukocyte Esterase 1+ (Negative) H 08/29/21 12:55 Urine RBC None /hpf (0-2) 08/29/21 12:55 Urine WBC 5-10 /hpf (0-5) H 08/29/21 12:55 Ur Squamous Epith Cells 0-4 /hpf (0-5) H 08/29/21 12:55 Amorphous Sediment Not Reportable 08/29/21 12:55 Urine Bacteria Trace /hpf (NONE) 08/29/21 12:55 Hyaline Casts 0-4 /lpf H 08/29/21 12:55 Coronavirus 229E (PCR) Not detected (NOT DETECT) 08/29/21 13:00 SARS-CoV-2 (PCR) Not detected (NOT DETECT) 08/29/21 13:00 SARS-CoV-2 Ag (Rapid) Negative (Negative) 08/29/21 08:30 Vitals Last Vital Signs Temp 97.8 F 09/01/21 07:33 Pulse 73 09/01/21 09:12 Resp 20 H 09/01/21 09:12 BP 140/67 09/01/21 07:33 Pulse Ox 92 09/01/21 09:12 Discharge Plan Discharge Patient Disposition: Home Health Service Condition: Stable Prescriptions: New acetazolamide 250 mg Tablet 250 mg PO DAILY Qty: 30 0RF Klor-Con M20 20 mEq Tablet,Er Particles/Crystals 40 meq PO DAILY Qty: 30 0RF bumetanide 1 mg Tablet 1 mg PO DAILY@1600 Qty: 30 0RF bumetanide 1 mg Tablet 2 mg PO DAILY Qty: 60 0RF atenolol 50 mg Tablet 50 mg PO QAM Qty: 30 0RF Continued (DME) oxygen-air delivery systems Device See Rx Instructions .ROUTE .MEDSUPPLY Qty: 1 0RF Rx Instructions: As directed albuterol sulfate 90 mcg/actuation HFA aerosol inhaler 2 puff inhalation QID PRN (Reason: Shortness Of Breath) 0RF atorvastatin [Lipitor] 80 mg Tablet 80 mg PO BEDTIME 0RF omeprazole 40 mg Capsule,Delayed Release(Dr/Ec) 40 mg PO QAM 0RF montelukast [Singulair] 10 mg Tablet 10 mg PO BEDTIME 0RF aspirin 81 mg Tablet,Delayed Release (Dr/Ec) 81 mg PO QAM 0RF Dulera 200-5 mcg/actuation HFA aerosol inhaler 2 puff INHALATION BID 0RF allopurinol 100 mg tablet 100 mg PO QAM 0RF lisinopril 5 mg tablet 5 mg PO QAM 0RF Janumet 50-1,000 mg tablet 1 tab PO BID 0RF ferrous sulfate 325 mg (65 mg iron) tablet 325 mg PO BID 0RF tamsulosin 0.4 mg capsule 0.4 mg PO DAILY 0RF ziprasidone HCl 40 mg capsule 40 mg PO DAILY@17 0RF sertraline 50 mg tablet 50 mg PO DAILY 0RF acetaminophen [Tylenol] 325 mg capsule 325 mg PO Q6H PRN (Reason: pain) Qty: 14 0RF Discontinued atenolol [Tenormin] 100 mg tablet 100 mg PO QAM 0RF bumetanide 1 mg tablet 1 mg PO BID Qty: 60 0RF glipizide 10 mg Tablet Extended Release 24hr 10 mg PO QAM Qty: 30 1RF furosemide 40 mg tablet 80 mg PO DAILY 0RF ascorbic acid (vitamin C) [Vitamin C] 500 mg Tablet 500 mg PO BID 0RF folic acid 1 mg tablet 1 mg PO QAM 0RF Levemir FlexTouch U-100 Insuln 100 unit/mL (3 mL) insulin pen 6 unit SUBCUT DAILY 0RF Discharge Orders: Discharge Order (Routine); Ordered 09/01/21 Ordered By: Anthony Michaels Referrals: Stewart Rosario MD [Primary Care Provider] - 4-7 days (Please do CBC and BMP on follow-up, Sunday or Sunday) Discharge Diet: Diabetic Discharge Activity: Increase activity as tolerated Patient Instructions: Opioid Safety Activity Restrictions/Additional Instructions: Take all meds as prescribed. Please use your sleep apnea machine whenever you are sleeping. Failure to do so will increase your confusion and you will end up back in the hospital. Your bloodwork will need to be checked Sunday or Sunday. Discharge Attestations Time Spent in Discharge Care*: greater than 30 min Status at Discharge: Cognitive status at discharge: cognitively intact , Behavioral status at discharge: cooperative , Quality Metrics Clinical Quality Measures [ No reported AMI, CVA or VTE this stay] Coding Level of Care Code Acute Chg FW DC note Diagnoses CHF (congestive heart failure) I50.9 Acute respiratory failure with hypoxia and hypercapnia J96.01; J96.02 Anemia D64.9 Morbid obesity E66.01
[2021-09-01 13:22] LABS: Glucose Point of Care 162 mg/dL (70-110)
--- NOTE | 2021-09-01 13:55 | PC.NURSE ---
Discharge Note Patient discharged to home via private vehicle accompanied by transportation personnel. All lines removed. Discharge instructions reviewed with patient. Mobile pharmacy medications and/or prescriptions provided. Belongings/home medications returned.
== END 2021-09-01 12:45 | disposition home health service (06) | DRG 291 ==
LOC: ER 13:05 → ICU 14:57 → CSU 08-30 10:26
PROVIDERS: Physician Assistant; Admitting Provider Internal Medicine; Emergency Provider Family Medicine; PCP Family Medicine; Visit Provider Internal Medicine
DX: I11.0 Hypertensive heart disease with heart failure (principal); I50.31 Acute diastolic (congestive) heart failure; J96.01 Acute respiratory failure with hypoxia; J96.02 Acute respiratory failure with hypercapnia; Z68.45 Body mass index [BMI] 70 or greater, adult; D50.9 Iron deficiency anemia, unspecified; G47.33 Obstructive sleep apnea (adult) (pediatric); E66.01 Morbid (severe) obesity due to excess calories; E11.9 Type 2 diabetes mellitus without complications; E78.5 Hyperlipidemia, unspecified; J44.9 Chronic obstructive pulmonary disease, unspecified; N50.89 Other specified disorders of the male genital organs; Z91.19 Patient's noncompliance with other medical treatment and regimen; Z99.81 Dependence on supplemental oxygen; Z79.82 Long term (current) use of aspirin; Z79.4 Long term (current) use of insulin; Z79.84 Long term (current) use of oral hypoglycemic drugs
CPT/HCPCS: 36415; 36416; 36600; 51702; 71045; 71275; 80048; 80051; 80053; 81001; 82330; 82728; 82805; 82962; 83540; 83550; 83735; 83880; 84145; 84484; 85025; 85378; 87086; 87426; 87635; 93005; 94640; 94660; 96365; 96366; 96367; 96372; 96374; 96375; 99285; J0696; J1650; J1815; J1940; J3480; J7626; Q9967

== ENCOUNTER 2021-09-04 08:05 | Observation (INO) | payer MEDICAID, SELFPAY ==
[2021-09-04] VITALS (13 sets, daily range): BP systolic 113–161; BP diastolic 56–81; PULSE 60–75; RESP 18–24; TEMP 36.7–36.8; O2SAT 91–100; BMI 75.4; BMI 72.8
--- NOTE | 2021-09-04 08:29 | ECG_ITS ---
[facility] Test Date: 2021-09-04 Pat Name: Arnol Guzman Department: Room: Gender: Male [employer] Operator: : 1970 Requested By: Jim Collier Order Number: [id number] Bernardino MD: Tay Mireles M.D. Measurements Intervals [place] Rate: 67 P: 64 MT: 146 QRS: 110 QRSD: 114 T: 94 QT: 410 QTc: 435 Interpretive Statements SINUS RHYTHM RIGHT AXIS DEVIATION [QRS AXIS > 100] LOW QRS VOLTAGE IN PRECORDIAL LEADS [QRS DEFLECTION < 1.0 mV IN CHEST LEADS] INCOMPLETE RIGHT BUNDLE BRANCH BLOCK [90+ ms QRS DURATION, TERMINAL R IN V1/V2, 40+ ms S IN I/aVL/V4/V5/V6] Compared to ECG 08/29/2021 14:15:22 Incomplete right bundle-branch block now present Electronically Signed On 09-04-2021 21:39:25 [facility] by Tay Mireles M.D. [email or web address]
--- NOTE | 2021-09-04 08:29 | XRR_ITS ---
PROCEDURE INFORMATION: Exam: XR Chest Exam date and time: 09/04/2021 8:29 AM Age: 51 years old Clinical indication: Chest pain/pressure. TECHNIQUE: Imaging protocol: XR of the chest. Views: 1 view. COMPARISON: CR XR chest 1V portable [id number] 08/29/2021 8:25 AM FINDINGS: Lungs: No pulmonary consolidation. Pleural spaces: No pleural effusion. No pneumothorax. Heart/Mediastinum: The cardiac silhouette is approximately unchanged. No gross evidence of pneumomediastinum. Diaphragm: Mild elevation of the right hemidiaphragm. Bones/joints: No gross fracture. XR/XR chest 1V portable [id number] IMPRESSION: Stable cardiomegaly.
--- NOTE | 2021-09-04 08:30 | W.ED.CHESTPA ---
HPI - Chest Pain General: Chief Complaint: Chest Pain Stated Complaint: CHEST PAIN Time Seen by Provider: 09/04/21 08:19 Source: patient and EMS Mode of arrival: EMS Limitations: no limitations History of Present Illness: Patient with complaints of chest pain that started last night and flared up again this morning. Patient states the pain was in his substernal left chest. Denies radiation the pain. He did have tingling in his left arm. States he has chronic shortness of breath and was mildly increased this morning. He normally wears 2 L of oxygen by nasal cannula all the time but had to have increased to 4 L/min by EMS. Patient states he was not compliant with his CPAP last night states he wore it for approximately an hour total. He was just discharged from the hospital few days ago with shortness of breath and diastolic dysfunction congestive heart failure. Patient had a CT angiogram of his chest at that time and it was negative. He also had a Covid test that was negative also. According to nursing staff, patient is noncompliant at home. MD complaint: chest pain and chest heaviness Pertinent past history: other (Diastolic dysfunction CHF, sleep apnea, morbid obesity) Onset (ago): day(s) (1) Timing of current episode: episodic Prior episodes: Yes Onset: during rest Pain location: substernal and left chest Pain radiation: none Severity: moderate (Minimal chest pressure now.) Quality: tightness and heaviness Relieving factors: nitroglycerin and other (Aspirin prior to arrival) Exacerbating factors: nothing Associated symptoms: Reports dyspnea; Deny abdominal pain, diaphoresis, fever(s), leg edema, nausea, palpitations, syncope or vomiting Review of Systems Const: Reports: fatigue; Denies: fever(s) or diaphoresis Eyes: Denies: change in vision ENMT: Denies: throat pain Card: Reports: chest pain; Denies: palpitations, lightheadedness or syncope Resp: Reports: dyspnea and non-productive cough; Denies: wheezing GI: Denies: abdominal pain, nausea or vomiting : Denies: flank pain Musc: Denies: neck pain, back pain or extremity pain Skin/Breast: Denies: rash or pruritus Neuro: Denies: headache(s), numbness in extremities or dizziness Psych: Denies: anxiety Mendel/Lymph: Denies: enlarged lymph nodes PFSH ED PFSH: Medical History Anemia -has chronic iron deficiency anemia, baseline Hg is around 9-10 Chest pain CHF (congestive heart failure) -Echo (07/2019): EF=68%, normal diastolic function, no RWMA -on oral lasix -no acute exacerbation currently Decubitus ulcer limited to breakdown of skin (stage 2) Diabetes -NIDDM type II -A1c (11/2019): 8.2 -Accuchecks, ISS, hypoglycemia precautions -consistent carb diet -anticipate hyperglycemia with steroid use Gout Hyperlipemia, mixed Hypertension -VSS; continue to monitor -continue oral antihypertensives Morbid (severe) obesity due to excess calories OPAL (obstructive sleep apnea) -in the process of getting CPAP set up Pneumonia Psychiatric care Transient cerebral ischemia Surgical History History of adenoidectomy History of hernia repair History of tonsillectomy History of umbilical hernia repair Family History Mother Hypertension CAD (coronary artery disease) Stroke Social History Smoking and tobacco status: never smoked Second hand smoke exposure: Yes Alcohol intake: never Adopted: No Caregiver/support person: No Lives independently: Yes Household members: family and friend(s) Housing: Manufactured/Mobile home Marital status: Single Number of children: 0 Number of grandchildren: 0 Highest education level completed: 8th Grade service: No Current occupational status: disabled Pets and animals: No History of recent travel: No Leisure activites: other Leisure activities details: play card games Sexually active: No Current gender identity: Male Yolanda/Hoahaoism: Other Special yolanda needs: No Agree to transfusion: Yes Financial difficulty paying for basics: Hard Physical Exam Const: COMMON NORMALS: no acute distress, patient oriented x3 and no limitations GENERAL APPEARANCE: cooperative HENMT: COMMON NORMALS: normocephalic and atraumatic HEAD & SCALP: normocephalic and atraumatic FACE & SINUS: normal facial exam Eye: COMMON NORMALS: EOMs intact bilaterally Neck/C-Spine: COMMON NORMALS: full ROM, no lymphadenopathy, supple and no meningeal signs GENERAL: Yes normal visual inspection Lymph: LYMPHATIC: no lymphadenopathy noted Chest: COMMONS NORMALS: normal inspection of the chest and normal palpation of entire chest wall CHEST: No Ecchymosis present and No rash Resp: COMMON NORMALS: normal respiratory effort, No retractions and clear to auscultation bilaterally EFFORT & INSPECTION: No respiratory distress AUSCULTATION: clear to auscultation bilaterally Cardio: COMMON NORMALS: regular rate, regular rhythm and Peripheral pulses 2+ throughout JUGULAR VENOUS DISTENTION: no JVD RATE: regular rate RHYTHM: regular rhythm PERIPHERAL PULSES: Peripheral pulses 2+ throughout GI: COMMON NORMALS: Normal to inspection, nondistended, normoactive bowel sounds present and non-tender OTHER: Morbid obesity : COMMON NORMALS: Yes no CVA tenderness BLADDER/KIDNEY EXAM: Yes no CVA tenderness Back/Pelvis: COMMON NORMALS: no CVA tenderness Extremity: COMMON NORMALS: normal to inspection, full ROM and capillary refill normal Neuro: COMMON NORMALS: patient oriented x3, CN's II-XII intact bilaterally, no focal motor deficits and no sensory deficits noted MENINGEAL SIGNS: Yes no meningeal signs Psych: COMMON NORMALS: mental status grossly normal and Normal thought process present THOUGHT PROCESS: Normal thought process present Skin: COMMON NORMALS: no rashes or lesions noted and no wounds GENERAL SKIN EXAM: no rashes or lesions noted Course Vital Signs: Vital signs: Vital Signs Temperature 98.1 F 09/04/21 08:20 Pulse Rate 60 09/04/21 10:45 Respiratory Rate 22 H 09/04/21 10:45 Blood Pressure 150/74 09/04/21 10:45 Pulse Oximetry 100 09/04/21 10:45 MDM - Chest Pain Medical Decision Making Troponin decreased from baseline. Patient improved after BiPAP. Discussed with hospitalist Dr. Araujo. Place patient observation status. Give Bumex 1 mg IV. Lab Data : 09/04/21 08:11 09/04/21 08:11 Radiology Impressions Chest X-Ray 09/04/21 08:29 IMPRESSION: Stable cardiomegaly. Laboratory Results WBC 4.6 10^3/uL (4.0-10.0) 09/04/21 08:11 RBC 4.42 10^6/uL (4.1-5.3) 09/04/21 08:11 Hgb 9.9 g/dL (11.7-16.6) L 09/04/21 08:11 Hct 38.0 % (42.0-52.0) L 09/04/21 08:11 MCV 86.0 fl (80-94) 09/04/21 08:11 MCH 22.4 pg (28.0-34.0) L 09/04/21 08:11 MCHC 26.1 g/dL (30.0-36.0) L 09/04/21 08:11 RDW 20.5 % (12.1-15.1) H 09/04/21 08:11 Plt Count 259 10^3/cmm (130-400) 09/04/21 08:11 MPV 10.5 fL (7.4-10.4) H 09/04/21 08:11 Neut % (Auto) 73.5 % 09/04/21 08:11 Lymph % (Auto) 16.5 % 09/04/21 08:11 Saline % (Auto) 7.6 % 09/04/21 08:11 Eos % (Auto) 1.1 % 09/04/21 08:11 Baso % (Auto) 1.1 % 09/04/21 08:11 Neut # (Auto) 3.40 10^3/uL (1.8-7.7) 09/04/21 08:11 Lymph # (Auto) 0.8 10^3/uL (0.8-4.8) 09/04/21 08:11 Saline # (Auto) 0.4 10^3/uL (0.2-0.9) 09/04/21 08:11 Eos # (Auto) 0.1 10^3/uL (0.0-0.8) 09/04/21 08:11 Baso # (Auto) 0.1 10^3/uL (0.0-0.1) 09/04/21 08:11 Nucleated RBC % (auto) 0 % 09/04/21 08:11 Nucleated RBCs # 0.0 /100WBC 09/04/21 08:11 APTT 35.0 SECONDS (23.9-36.7) 09/04/21 08:11 Specimen Type Arterial 09/04/21 08:28 Sample Site Radial, right 09/04/21 08:28 ABG pH 7.35 (7.35-7.45) 09/04/21 08:28 ABG pCO2 64.4 mmHg (35-45) H* 09/04/21 08:28 ABG pO2 65.9 mmHg (80.0-100.0) L 09/04/21 08:28 ABG HCO3 35.6 mmol/L (22-26) H 09/04/21 08:28 ABG O2 Saturation 91.4 09/04/21 08:28 ABG Base Excess 8.6 mmol/L (-2.0-2.0) H 09/04/21 08:28 Luis Test Pos 09/04/21 08:28 A-a O2 Gradient 11.3 mmHg (5-10) H 09/04/21 08:28 Hematocrit 27.9 % (42-52) L 09/04/21 08:28 Hgb O2 Saturation 89.5 % (95-100) L 09/04/21 08:28 Carboxyhemoglobin 1.8 %THgb (0.4-20.1) 09/04/21 08:28 Methemoglobin 0.3 % (0.4-1.5) L 09/04/21 08:28 Total Hemoglobin 9.1 g/dL (14-18) L 09/04/21 08:28 Sodium 146.0 mmol/L (131-143) H 09/04/21 08:28 Potassium 3.7 mmol/L (3.5-5.0) 09/04/21 08:28 Glucose 96.0 mg/dL (70-115) 09/04/21 08:28 O2 Delivery Device Nc 09/04/21 08:28 O2 Liters/Min 3.0 % 09/04/21 08:28 FiO2 32.0 % 09/04/21 08:28 Product Evangelist ID Ed 09/04/21 08:28 Sodium 141 mmol/L (136-145) 09/04/21 08:11 Potassium 3.9 mmol/L (3.5-5.1) 09/04/21 08:11 Chloride 98 mmol/L (98-107) 09/04/21 08:11 Carbon Dioxide 32 mmol/L (22-29) H 09/04/21 08:11 Anion Gap 14.9 (5-19) 09/04/21 08:11 BUN 15 mg/dL (6-20) 09/04/21 08:11 Creatinine 1.0 mg/dL (0.7-1.2) 09/04/21 08:11 GFR Calculation 79.4 mL/min (90-130) L 09/04/21 08:11 Glucose 99 mg/dL (65-115) 09/04/21 08:11 Calculated Osmolality 293 mOsm/kg (285-295) 09/04/21 08:11 Calcium 9.8 mg/dL (8.5-10.5) 09/04/21 08:11 Troponin T Baseline 39 ng/L (0-15) H 09/04/21 08:11 Troponin T 120 Minute 36.67 ng/L (0-15) H 09/04/21 10:11 Delta Troponin T -2.33 ABS# (0-10) L 09/04/21 10:11 NT-Pro-B Natriuret Pep 2840 pg/mL (0-125) H 09/04/21 08:11 SARS-CoV-2 Ag (Rapid) Negative (Negative) 09/04/21 08:37 Imaging Data CXR: My impression: Severe cardiomegaly. Cardiomegaly improved since last chest x-ray. Minimal pulmonary edema. Radiologist's impression: PROCEDURE INFORMATION: Exam: XR Chest Exam date and time: 09/04/2021 8:29 AM Age: 51 years old Clinical indication: Chest pain/pressure. TECHNIQUE: Imaging protocol: XR of the chest. Views: 1 view. COMPARISON: CR XR chest 1V portable [id number] 08/29/2021 8:25 AM FINDINGS: Lungs: No pulmonary consolidation. Pleural spaces: No pleural effusion. No pneumothorax. Heart/Mediastinum: The cardiac silhouette is approximately unchanged. No gross evidence of pneumomediastinum. Diaphragm: Mild elevation of the right hemidiaphragm. Bones/joints: No gross fracture. XR/XR chest 1V portable [id number] IMPRESSION: Stable cardiomegaly. ? Dictated By: Edgar Newton Signed By: Edgar Newton Signed Date/Time: 09/04/21 0852 EKG Data EKG 1: I personally reviewed and interpreted this EKG as follows: EKG interpretation date: 09/04/21 EKG interpretation time: 08:42 Interpretation: Normal sinus rhythm, normal axis, low voltage. Normal NH interval, normal QT interval, normal ST segment. Heart rate 67 ABG Data ABG Interpretation 1: pH 7.35 PCO2 64 PO2 66 bicarb 35 base excess of 8.6 Consistent with hypoxia hypercapnia. Will place patient on BiPAP. Discharge Plan Discharge Patient Disposition: Placed in Observation Clinical Impression: Acute respiratory failure with hypoxia and hypercapnia, Morbid (severe) obesity due to excess calories Chronic respiratory failure Qualifiers: Respiratory failure complication: hypoxia and hypercapnia Qualified Code(s): J96.11 - Chronic respiratory failure with hypoxia Congestive heart failure with left ventricular diastolic dysfunction Qualifiers: Congestive heart failure chronicity: acute on chronic Qualified Code(s): I50.33 - Acute on chronic diastolic (congestive) heart failure Coding Level of Care Code ED Cork Insulator Helper for Chg Fwd Exam Comprehensive
[2021-09-04 08:38] LABS: ABG PH Result 7.35 (7.35-7.45); Arterial Blood Gas Hematocrit 27.9 % (42-52); Base Excess ABG 8.6 mmol/L (-2.0-2.0); Blood Gas Allen Test Pos; Blood Gas Sample Type Arterial; Carboxyhemoglobin 1.8 %THgb (0.4-20.1); HCO3 ABG 35.6 mmol/L (22-26); HGB O2 Sat 89.5 % (95-100); Methemoglobin 0.3 % (0.4-1.5); Oxygen Saturation ABG 91.4; PO2 ABG 65.9 mmHg (80.0-100.0); Potassium Level - ABG 3.7 mmol/L (3.5-5.0); Total Hemoglobin 9.1 g/dL (14-18)
[2021-09-04 08:39] LABS: ABG PCO2 64.4 mmHg (35-45); Alveolar-Arterial Oxygen Gradi 11.3 mmHg (5-10); Blood Gas Operator Identificat ED; Blood Gas Sample Site Radial, right; Oxygen Device NC
[2021-09-04 08:45] LABS: Basophils # 0.1 10^3/uL (0.0-0.1); Basophils % 1.1 %; Eosinophils # 0.1 10^3/uL (0.0-0.8); Eosinophils % 1.1 %; Hemoglobin 9.9 g/dL (11.7-16.6); Lymphocytes # 0.8 10^3/uL (0.8-4.8); Lymphocytes % 16.5 %; Mean Corpuscular HGB Conc 26.1 g/dL (30.0-36.0); Mean Corpuscular Hemoglobin 22.4 pg (28.0-34.0); Mean Platelet Volume 10.5 fL (7.4-10.4); Monocytes # 0.4 10^3/uL (0.2-0.9); Monocytes % 7.6 %; Neutrophils % 73.5 %; Nucleated Red Blood Cells % 0 %; Platelet Count 259 10^3/cmm (130-400); Red Blood Count 4.42 10^6/uL (4.1-5.3); Red Cell Distribution Width 20.5 % (12.1-15.1); White Blood Count 4.6 10^3/uL (4.0-10.0)
[2021-09-04 08:59] LABS: Troponin(5th) Baseline 39 ng/L (0-15)
[2021-09-04 09:07] LABS: Anion Gap 14.9 (5-19); Blood Urea Nitrogen 15 mg/dL (6-20); Calcium 9.8 mg/dL (8.5-10.5); Carbon Dioxide 32 mmol/L (22-29); Chloride 98 mmol/L (98-107); Glomerular Filtration Rate 79.4 mL/min (90-130); Glucose 99 mg/dL (65-115); NT Pro B Type Natriuretic Pept 2840 pg/mL (0-125); Osmolality Calculated 293 mOsm/kg (285-295); Potassium 3.9 mmol/L (3.5-5.1); Sodium 141 mmol/L (136-145)
[2021-09-04 10:10] LABS: SARS Covid-2 Antigen Negative (Negative)
[2021-09-04 10:40] LABS: Troponin 5 2HR 36.67 ng/L (0-15)
[2021-09-04 10:52] LABS: Troponin 5 2HR Delta -2.33 ABS# (0-10)
--- NOTE | 2021-09-04 11:44 | PM.HP ---
Providers/Chief Complaint Primary Care Provider: Stewart Rosario MD Chief Complaint: CHEST PAIN History of Present Illness Arnol Guzman is a 51 year old male who has had multiple admissions secondary to similar complaint of worsening shortness of breath. He was recently admitted for exacerbation of diastolic congestive heart failure. Patient has CPAP at home however does not have BiPAP/trilogy. At baseline uses 2 to 3 L of oxygen, left eye blindness, lives alone, has home health aide, presented to the hospital today for worsening shortness of breath. He is not able to use his CPAP on a daily basis, he only used it for about an hour last night, this morning he presented to the hospital for worsening shortness of breath. No recent fever, nausea, vomiting or diarrhea. Endorsing orthopnea, PND and weight gain along abdominal bloating. In the ER he was diagnosed with hypercapnic respiratory failure however pH is compensated, acute on chronic hypoxia he was put on BiPAP, was given IV diuretics, troponin trending down, no active chest pain Review of Systems Const: Reports: body aches and fatigue Eyes: Denies: change in vision ENMT: Denies: throat pain Card: Reports: swelling of feet/ankles, dyspnea on exertion and orthopnea; Denies: chest pain Resp: Reports: dyspnea GI: Denies: abdominal pain : Denies: flank pain Musc: Denies: neck pain Skin/Breast: Denies: rash Neuro: Denies: headache(s) Psych: Reports: anxiety Endo: Denies: polyuria Mendel/Lymph: Denies: easy bruising All/Imm: Denies: urticaria Medications/Allergies Home Medications Medication Instructions Recorded Confirmed Last Taken Type atorvastatin 80 mg tablet (Lipitor) 80 mg PO BEDTIME 07/14/19 09/04/21 07/24/21 History montelukast 10 mg tablet 10 mg PO BEDTIME 07/14/19 09/04/21 07/24/21 History (Singulair) omeprazole 40 mg capsule,delayed 40 mg PO QAM 07/14/19 09/04/21 07/24/21 History release oxygen-air delivery systems #1 03/11/20 09/04/21 Unknown History albuterol sulfate 90 mcg/actuation 2 puff INHALATION QID PRN 05/19/20 09/04/21 07/25/21 History aerosol inhaler aspirin 81 mg tablet,delayed 81 mg PO QAM 09/13/20 09/04/21 07/24/21 History release mometasone-formoterol HFA 200 2 puff INHALATION BID 11/24/20 09/04/21 07/24/21 History mcg-5 mcg/actuation aerosol inhaler (Dulera) allopurinol 100 mg tablet 100 mg PO QAM 02/16/21 09/04/21 07/24/21 History lisinopril 5 mg tablet 5 mg PO QAM 02/16/21 09/04/21 07/24/21 History sitagliptin 50 mg-metformin 1,000 1 tab PO BID 02/16/21 09/04/21 07/24/21 History mg tablet (Janumet) ferrous sulfate 325 mg (65 mg 325 mg PO BID 06/22/21 09/04/21 07/24/21 History iron) tablet sertraline 50 mg tablet 50 mg PO DAILY 07/13/21 09/04/21 07/24/21 History tamsulosin 0.4 mg capsule 0.4 mg PO DAILY 07/13/21 09/04/21 07/24/21 History ziprasidone HCl 40 mg capsule 40 mg PO DAILY@17 07/13/21 09/04/21 07/24/21 History acetaminophen 325 mg capsule 325 mg PO Q6H PRN #14 cap 07/15/21 09/04/21 Unknown Rx (Tylenol) acetazolamide 250 mg tablet 250 mg PO DAILY #30 tab 09/01/21 09/04/21 Unknown Rx atenolol 50 mg tablet 50 mg PO QAM #30 tab 09/01/21 09/04/21 Unknown Rx potassium chloride 20 mEq 40 meq PO DAILY #30 tab 09/01/21 09/04/21 Unknown Rx tablet,extended release(part/cryst) (Klor-Con M) bumetanide 1 mg tablet 3 mg PO DAILY 09/04/21 09/04/21 Unknown History Allergies Allergy/AdvReac Type Severity Reaction Status Date / Time Penicillins Allergy ALGY-Hives Verified 08/22/21 06:59 diltiazem [From [facility]] AdvReac ADR/ALGY-Pa Verified 08/22/21 06:59 lpitations PFSH Acute PFSH: Medical History (Updated 09/04/21 @ 19:26 by eLster Araujo MD) Anemia -has chronic iron deficiency anemia, baseline Hg is around 9-10 Chest pain CHF (congestive heart failure) -Echo (07/2019): EF=68%, normal diastolic function, no RWMA -on oral lasix -no acute exacerbation currently Decubitus ulcer limited to breakdown of skin (stage 2) Diabetes -NIDDM type II -A1c (11/2019): 8.2 -Accuchecks, ISS, hypoglycemia precautions -consistent carb diet -anticipate hyperglycemia with steroid use Gout Hyperlipemia, mixed Hypertension -VSS; continue to monitor -continue oral antihypertensives Major depressive disorder, recurrent, moderate Morbid (severe) obesity due to excess calories OPAL (obstructive sleep apnea) -in the process of getting CPAP set up Pneumonia Psychiatric care Transient cerebral ischemia Surgical History History of adenoidectomy History of hernia repair History of tonsillectomy History of umbilical hernia repair Family History Mother Hypertension CAD (coronary artery disease) Stroke Social History Smoking and tobacco status: never smoked Second hand smoke exposure: Yes Alcohol intake: never Adopted: No Caregiver/support person: No Lives independently: Yes Household members: family and friend(s) Housing: Manufactured/Mobile home Marital status: Single Number of children: 0 Number of grandchildren: 0 Highest education level completed: 8th Grade service: No Current occupational status: disabled Pets and animals: No History of recent travel: No Leisure activites: other Leisure activities details: play card games Sexually active: No Current gender identity: Male Yolanda/Zoroastrian: Other Special yolanda needs: No Agree to transfusion: Yes Financial difficulty paying for basics: Hard Vitals/I&O/Wt Last Vital Signs Temp 98.1 F 09/04/21 08:20 Pulse 60 09/04/21 10:45 Resp 22 H 09/04/21 10:45 BP 150/74 09/04/21 10:45 Pulse Ox 100 09/04/21 10:45 Weight last 48 hrs Weight 180.983 kg Physical Exam Narrative: Middle-age male Morbid obese Left eye blindness Clinically looks fluid overloaded Lymphedema Abdominal obesity, nontender abdomen S1, S2 Currently on BiPAP Alert and awake Nonfocal neuro exam No sign of cellulitis No audible stridor or wheezing Data : 09/04/21 08:11 09/04/21 08:11 A&P Assessment and plan (1) Congestive heart failure with left ventricular diastolic dysfunction: Status: Acute Qualifiers: Congestive heart failure chronicity: acute on chronic Qualified Code(s): I50.33 - Acute on chronic diastolic (congestive) heart failure (2) Morbid obesity: Status: Acute (3) Acute respiratory failure with hypoxia and hypercapnia: Status: Acute (4) Hypertension: Status: Acute (5) Morbid (severe) obesity due to excess calories: Status: Acute (6) Anxiety: Status: Acute (7) Depression: Status: Acute (8) Anemia: Status: Acute Plan Diastolic congestive heart exacerbation I will keep him on Bumex, high BNP however lower as compared to previous admission, Continue BiPAP to decrease work of breathing Chest x-ray not consistent from edema High BNP noted This most likely related to noncompliance with CPAP Chronic hypercapnic hypoxic respiratory failure pH is compensated, He most likely will need BiPAP/trilogy CPAP is not helping at all to relieve his symptoms BiPAP is very important to prevent readmissions, treat his underlying heart failure and prevent worsening with hypoxic respiratory failure which can cause pulmonary hypertension, cardiac failure and cardiac arrest contact center manager updated Cardiac diet history carb diet, sliding scale for diabetes DVT prophylaxis Lovenox No active suicidal ideation Attestations Medical Necessity Statement*: Less than two midnights anticipated Time Spent in Patient Care: 35mins Coding Level of Care Code Acute Tennis Professional for Zac Pickett Diagnoses Congestive heart failure with left ventricular diastolic dysfunction I50.33 Congestive heart failure chronicity: acute on chronic Morbid obesity E66.01 Acute respiratory failure with hypoxia and hypercapnia J96.01; J96.02 Hypertension I10 Morbid (severe) obesity due to excess calories E66.01 Anxiety F41.9 Depression F32.A Anemia D64.9
--- NOTE | 2021-09-04 11:49 | PC.PHAR ---
pt unable to verify - verified from pt in home services records, [facility], and last discharge summary. On 09/01/21 pt was taken off of Lasix and Bumex increased to 3mg once daily, Glipizide ER 10mg Dc'd, Atenolol 100mg decreased to 50mg once daily, and added Acetazolamide 250mg once daily.
[2021-09-04] MEDS: FUROsemide 10 mg/mL SDV 4mL 40 MG IVP (13:20)
--- NOTE | 2021-09-04 13:22 | PC.NURSE ---
BEDSIDE COMMODE PROVIDE FOR PATIENT.
--- NOTE | 2021-09-04 14:29 | ECG_ITS ---
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 Measurements Intervals [place] Rate: 67 P: 65 [place]: 143 QRS: 97 QRSD: 109 T: 91 QT: 429 QTc: 454 Interpretive Statements SINUS RHYTHM BORDERLINE RIGHT AXIS DEVIATION [QRS AXIS > 90] INCOMPLETE RIGHT BUNDLE BRANCH BLOCK [90+ ms QRS DURATION, TERMINAL R IN V1/V2, 40+ ms S IN I/aVL/V4/V5/V6] Compared to ECG 09/04/2021 08:40:31 No significant changes Electronically Signed On 09-05-2021 17:17:35 BOOT REPAIRER by Tay Mireles M.D. [id number]
[2021-09-04 15:05] LABS: Troponin 5 6HR 38.28 ng/L (0-15)
[2021-09-04 15:12] LABS: Troponin 5 6HR Delta -0.72 ng/L (0-12)
[2021-09-04] MEDS: enoxaparin 40 mg/0.4 mL Syringe SUBCUT (17:53)
[2021-09-04 18:07] LABS: Glucose Point of Care 92 mg/dL (70-110)
[2021-09-04] MEDS: atorvastatin 40 mg Tablet 80 MG PO (20:13)
[2021-09-04] MEDS: montelukast sodium 10 mg Tablet PO (20:13)
--- NOTE | 2021-09-04 22:27 | PC.NURSE ---
Patient is refusing to wear bipap by stating its not comfortable . Nursing staff and Respiratory have educated patient on benefits of keeping bipap on overnight. Patient placed back on 2L NC.
[2021-09-05] VITALS (14 sets, daily range): BP systolic 117–150; BP diastolic 57–72; PULSE 58–78; RESP 16–20; TEMP 36.4–36.9; O2SAT 91–96
[2021-09-05] MEDS: ipratropium-albuterol 3 mL Neb INHALATION ×3 (02:40→14:10)
[2021-09-05 04:07] LABS: ABG PH Result 7.37 (7.35-7.45); Arterial Blood Gas Hematocrit 26.7 % (42-52); Base Excess ABG 9.9 mmol/L (-2.0-2.0); Blood Gas Allen Test Pos; Blood Gas Sample Site Radial, right; Blood Gas Sample Type Arterial; HCO3 ABG 36.7 mmol/L (22-26); Oxygen Device NC; PO2 ABG 61.9 mmHg (80.0-100.0)
[2021-09-05 04:12] LABS: ABG PCO2 63.7 mmHg (35-45)
[2021-09-05 04:36] LABS: Basophils % 0.5 %; Hematocrit 32.6 % (42.0-52.0); Hemoglobin 8.4 g/dL (11.7-16.6); Lymphocytes # 0.8 10^3/uL (0.8-4.8); Lymphocytes % 18.1 %; Mean Corpuscular HGB Conc 25.8 g/dL (30.0-36.0); Mean Corpuscular Volume 85.6 fl (80-94); Mean Platelet Volume 10.3 fL (7.4-10.4); Monocytes # 0.4 10^3/uL (0.2-0.9); Monocytes % 9.1 %; Neutrophils # 2.98 10^3/uL (1.8-7.7); Neutrophils % 71.1 %; Nucleated Red Blood Cells % 0 %; Platelet Count 215 10^3/cmm (130-400); Red Blood Count 3.81 10^6/uL (4.1-5.3); Red Cell Distribution Width 20.2 % (12.1-15.1); White Blood Count 4.2 10^3/uL (4.0-10.0)
[2021-09-05 04:55] LABS: Anion Gap 11.7 (5-19); Blood Urea Nitrogen 18 mg/dL (6-20); Calcium 9.5 mg/dL (8.5-10.5); Carbon Dioxide 36 mmol/L (22-29); Chloride 100 mmol/L (98-107); Glomerular Filtration Rate 71.1 mL/min (90-130); Glucose 129 mg/dL (65-115); Magnesium 2.1 mg/dL (1.7-2.3); Osmolality Calculated 302 mOsm/kg (285-295); Potassium 3.7 mmol/L (3.5-5.1); Sodium 144 mmol/L (136-145)
[2021-09-05] MEDS: lisinopril 5 mg Tablet PO (05:17)
[2021-09-05] MEDS: aspirin 81 mg EC Tablet PO (05:17)
[2021-09-05] MEDS: pantoprazole DR 40 mg Tablet PO (05:17)
[2021-09-05] MEDS: atenolol 50 mg Tablet PO (05:17)
[2021-09-05] MEDS: allopurinol 100 mg Tablet PO (05:17)
[2021-09-05] MEDS: bumetanide 1 mg Tablet 3 MG PO (08:41)
[2021-09-05] MEDS: potassium chloride ER 20 mEq Tablet 40 MEQ PO (08:42)
[2021-09-05] MEDS: sertraline 50 mg Tablet PO (08:42)
[2021-09-05] MEDS: tamsulosin 0.4 mg Capsule PO (08:42)
[2021-09-05] MEDS: ferrous sulfate EC 325 mg Tablet PO ×2 (08:42→18:16)
--- NOTE | 2021-09-05 11:59 | P.PN_ITS ---
Subjective Subjective: Patient has been suffering from chronic hypoxic hypercarbic respiratory failure, he is not doing well at all on CPAP, he definitely needs BiPAP which will be considered lifesaving measure for him and instrument to prevent readmission the hospital We will obtain pulse ox nocturnal study PCO2 63.7 Spoke with her sister who is a nurse, she is requesting longterm versus assisted living and avoid correction Vitals/I&O/Wt Last Vital Signs Temp 98.3 F 09/05/21 11:34 Pulse 66 09/05/21 11:34 Resp 18 09/05/21 11:34 BP 149/69 09/05/21 11:34 Pulse Ox 94 09/05/21 11:34 09/04/21 09/05/21 09/05/21 22:59 06:59 14:59 Intake Total 240 / 240 Balance 240 / 240 Weight last 48 hrs Weight 174.724 kg Weight 180.983 kg Physical Exam Narrative: Patient was sitting at the bedside No acute respite distress Saturating well on 4 L nasal cannula Abdominal/visceral obesity Edema of legs Nonfocal neuro exam able to convey his concerns without any conversational dyspnea Nonlabored breathing S1, S2 Data : 09/05/21 03:21 09/05/21 03:21 A&P Assessment and plan (1) Congestive heart failure with left ventricular diastolic dysfunction: Status: Acute Qualifiers: Congestive heart failure chronicity: acute on chronic Qualified Code(s): I50.33 - Acute on chronic diastolic (congestive) heart failure (2) Morbid obesity: Status: Acute (3) Hypertension: Status: Acute (4) Morbid (severe) obesity due to excess calories: Status: Acute (5) Anemia: Status: Acute (6) Chronic respiratory failure: Status: Acute Qualifiers: Respiratory failure complication: hypoxia and hypercapnia Qualified Code(s): J96.11 - Chronic respiratory failure with hypoxia; J96.12 - Chronic respiratory failure with hypercapnia Plan Diastolic congestive heart failure exacerbation due to underlying untreated sleep apnea Patient will need BiPAP because of his persistent hypercapnia and acute on chronic hypoxic events, will obtain overnight pulse oximetry study, requested nurse case manager to arrange BiPAP at the time of discharge, Multiple admissions in the past, spoke with his sister as well, patient and his sister both in agreement for assisted living placement versus longterm, they do not want correction at this point, I did give him spironolactone yesterday bicarb around 36, baseline bicarb seems to run 30-34, will give another dose today Currently doing well on nasal cannula Would recommend BiPAP at night I do not appreciate acute worsening of hypoxic hypercarbic respiratory failure But BiPAP is needed to prevent readmissions and this will be considered a lifesaving measure for him Type II HI, no active chest pain Attestations Medical Necessity Statement*: Continue hospitalization Time Spent in Patient Care: 15min Coding Level of Care Code Acute Fluoroscope Operator for Zac Fwd Diagnoses Congestive heart failure with left ventricular diastolic dysfunction I50.33 Congestive heart failure chronicity: acute on chronic Morbid obesity E66.01 Hypertension I10 Morbid (severe) obesity due to excess calories E66.01 Anemia D64.9 Chronic respiratory failure J96.11; J96.12 Respiratory failure complication: hypoxia and hypercapnia
--- NOTE | 2021-09-05 12:06 | PC.CHAP ---
Pastoral Care Encounter/Spiritual Assessment Type of Contact [] Declined clinical research nurse visit [] Patient/Family/Request visit [] Outpatient visit [] Follow-up visit [] Physician referral [] Code/Alert [x] Routine visit [] Staff referral [] Actively dying [] Patient sleeping [] Family support [] [] Out of room [] Palliative care [] [] Receiving care in room [] Pre-surgical visit [] Trauma [] Long length of stay [] ICU visit [] Other: Relational/Emotional Strength [] Patient feels connected with others/family/visitors/staff [] Distress [] Loneliness/isolation [] Abandonment Spirituality of Patient [x] Person of Yolanda [] Attends Mormon of their Yolanda [x] Believes in Prayer [] Reads Bible or Yarsani materials [] There are Spiritual issues to be addressed Cat Scanner Operator Interventions [x] Prayer [x] Active listening [] Non-anxious presence [] Spiritual/emotional support [] Crisis/trauma care [] Spiritual counseling [] Bereavement support [] Provided bereavement packet [] Provided Bible/devotional materials [] Provided toy/stuffed animal, coloring book to patient or family member [] Provided Communion [] Anointing/[place] [] Salvation [x] Completed spiritual assessment [] Other: Impact on Illness or Injury [] Angry [] Fearful [] Anxious [] Often cries [] Exhaustion [] Unable to work [] Unable to attend mosque [] Unable to walk/stand [] Unable to read [] Unable to drive [] Unable to eat/drink [] Unable to sleep [] Unable to be with family [] Patient intubated [] Other: Summary Time spent with patient 5 min
[2021-09-05] MEDS: spironolactone 25 mg Tablet 50 MG PO (14:11)
[2021-09-05] MEDS: ziprasidone hcl 40 mg Capsule PO (18:16)
[2021-09-05] MEDS: enoxaparin 40 mg/0.4 mL Syringe SUBCUT (18:16)
[2021-09-05] MEDS: atorvastatin 40 mg Tablet 80 MG PO (20:29)
[2021-09-05] MEDS: montelukast sodium 10 mg Tablet PO (20:29)
[2021-09-06] VITALS (7 sets, daily range): BP systolic 120–150; BP diastolic 63–90; PULSE 54–66; RESP 16–18; TEMP 36.5–36.7; O2SAT 92–98
[2021-09-06] MEDS: lisinopril 5 mg Tablet PO (05:07)
[2021-09-06] MEDS: pantoprazole DR 40 mg Tablet PO (05:07)
[2021-09-06] MEDS: atenolol 50 mg Tablet PO (05:07)
[2021-09-06] MEDS: allopurinol 100 mg Tablet PO (05:07)
[2021-09-06] MEDS: aspirin 81 mg EC Tablet PO (05:07)
[2021-09-06 05:44] LABS: Blood Urea Nitrogen 17 mg/dL (6-20); Calcium 9.7 mg/dL (8.5-10.5); Carbon Dioxide 34 mmol/L (22-29); Chloride 102 mmol/L (98-107); Glomerular Filtration Rate 71.1 mL/min (90-130); Glucose 156 mg/dL (65-115); Osmolality Calculated 303 mOsm/kg (285-295); Sodium 144 mmol/L (136-145)
[2021-09-06 05:45] LABS: Anion Gap 12.1 (5-19); Potassium 4.1 mmol/L (3.5-5.1)
[2021-09-06] MEDS: ferrous sulfate EC 325 mg Tablet PO (08:46)
[2021-09-06] MEDS: potassium chloride ER 20 mEq Tablet 40 MEQ PO (08:46)
[2021-09-06] MEDS: sertraline 50 mg Tablet PO (08:46)
[2021-09-06] MEDS: spironolactone 25 mg Tablet 50 MG PO (08:46)
[2021-09-06] MEDS: tamsulosin 0.4 mg Capsule PO (08:46)
--- NOTE | 2021-09-06 11:35 | PM.PN ---
Subjective Subjective: Patient has improved No overnight events Bicarb at baseline No need of acetazolamide today Patient does not want to go to any half-way, no jail or assisted living has excepted him yet, the only way to discharge him home is after arranging BiPAP, Chiara land manager is working diligently on his case Vitals/I&O/Wt Last Vital Signs Temp 98.1 F 09/06/21 07:42 Pulse 64 09/06/21 09:03 Resp 16 09/06/21 09:03 BP 120/63 09/06/21 07:42 Pulse Ox 95 09/06/21 09:03 09/05/21 09/06/21 09/06/21 22:59 06:59 14:59 Intake Total 240 / 840 580 / 1420 240 / 240 Output Total 0 / 0 3 / 3 Balance 240 / 840 577 / 1417 240 / 240 Weight last 48 hrs Weight 175.268 kg Weight 174.724 kg Physical Exam Narrative: Patient was laying flat No orthopnea PND Baseline morbid obesity, hard to assess his volume status No active crackles or wheezing noted S1, S2 Nonfocal neuro exam Distended abdomen nontender Appropriate mood and affect Data : 09/05/21 03:21 09/06/21 05:00 A&P Assessment and plan (1) Congestive heart failure with left ventricular diastolic dysfunction: Status: Acute Qualifiers: Congestive heart failure chronicity: acute on chronic Qualified Code(s): I50.33 - Acute on chronic diastolic (congestive) heart failure (2) Morbid obesity: Status: Acute (3) Acute respiratory failure with hypoxia and hypercapnia: Status: Acute (4) Hypertension: Status: Acute (5) Chest pain: Status: Acute Plan CHF exacerbation: Improved Discontinue spironolactone He can start taking Bumex and alternate with acetazolamide assisted in assisted living has not accepted him yet Chiara has informed me that she was able to get in touch with his CPAP company, he has only used CPAP 6 times out of 90 days, insurance would not approve his BiPAP because of his noncompliance Unfortunately I do not have any other option but to discharge him home with instructions to stay compliant with his medications and use CPAP He is high risk for readmissions Sister updated Attestations Medical Necessity Statement*: Discharge Coding Level of Care Code Acute Regulatory Compliance Manager for Chg Fwd Diagnoses Congestive heart failure with left ventricular diastolic dysfunction I50.33 Congestive heart failure chronicity: acute on chronic Morbid obesity E66.01 Acute respiratory failure with hypoxia and hypercapnia J96.01; J96.02 Hypertension I10 Chest pain R07.9
[2021-09-06 12:30] LABS: Glucose Point of Care 138 mg/dL (70-110)
--- NOTE | 2021-09-06 12:59 | P.DS_ITS ---
Discharge Providers Date of Admission: 09/04/21 11:27 Date of Discharge: September 06, 2021 Attending Provider at Admission: Lester Araujo MD Attending Provider at Discharge: Lester Araujo MD Primary Care Provider: Stewart Rosario MD Diagnoses at Discharge Discharge Diagnosis (1) Congestive heart failure with left ventricular diastolic dysfunction: Status: Acute Qualifiers: Congestive heart failure chronicity: acute on chronic Qualified Code(s): I50.33 - Acute on chronic diastolic (congestive) heart failure (2) Morbid obesity: Status: Acute (3) Acute respiratory failure with hypoxia and hypercapnia: Status: Acute (4) Hypertension: Status: Acute (5) Chest pain: Status: Acute Reason for Visit Reason for Visit: CHEST PAIN Hospital Course Hospital Course 51-year-old male who carries history of chronic hypercapnia and hypoxia, CPAP dependent at home for sleep apnea, presented to the hospital for worsening of shortness of breath. Patient has been very noncompliant with his CPAP. He lives alone and gets help from home health services. At the time of admission he was unsure if he was taking his medications appropriately. He did not endorse orthopnea PND however came to the hospital for worsening of shortness of breath. In the ER his pH was compensated, he was put on BiPAP to decrease work of breathing. He did very well with use of BiPAP. For his contraction a lkalosis I gave him spironolactone, his bicarb is on baseline 32-34. Doing well on 4 to 5 L nasal cannula. Secondary to recurrent admissions we try to pursue placement to a jail, patient and her sister were both adamant that jail is not an ideal option for them because of their past experience. retirement and assisted living did not accept him, I try to arrange BiPAP for him as he does qualify for BiPAP at home. Handy told us that he only use CPAP for 6 nights out of 90 nights and his insurance will not approve his BiPAP. This was conveyed to the sister. Patient is adamant that he wants to go home takes care of his affairs and his rent is due on 09/06. I am going to discontinue his spironolactone and acetazolamide, continue Bumex, decrease the dose to 2 mg on daily basis. He is high risk for readmissions, close follow-up with the PCP Physical Exam Narrative: Patient was laying supine, no orthopnea PND Morbid obesity No acute respiratory distress Saturating well on 4 L nasal cannula Abdominal/visceral obesity Edema of legs Nonfocal neuro exam able to convey his concerns without any conversational dyspnea Nonlabored breathing S1, S2 Discharge Data Studies Completed and Pending Completed Studies During Hospitalization Category Date Time Status XR chest 1V portable 25200 Stat Exams 09/04/21 08:29 Completed Pending at discharge Category Date Time Status Arterial Blood Gas Full Stat Lab 09/04/21 08:28 Results Radiology Impressions Chest X-Ray 09/04/21 08:29 IMPRESSION: Stable cardiomegaly. Laboratory Results WBC 4.2 10^3/uL (4.0-10.0) 09/05/21 03:21 RBC 3.81 10^6/uL (4.1-5.3) L 09/05/21 03:21 Hgb 8.4 g/dL (11.7-16.6) L 09/05/21 03:21 Hct 32.6 % (42.0-52.0) L 09/05/21 03:21 MCV 85.6 fl (80-94) 09/05/21 03:21 MCH 22.0 pg (28.0-34.0) L 09/05/21 03:21 MCHC 25.8 g/dL (30.0-36.0) L 09/05/21 03:21 RDW 20.2 % (12.1-15.1) H 09/05/21 03:21 Plt Count 215 10^3/cmm (130-400) 09/05/21 03:21 MPV 10.3 fL (7.4-10.4) 09/05/21 03:21 Neut % (Auto) 71.1 % 09/05/21 03:21 Lymph % (Auto) 18.1 % 09/05/21 03:21 [place] % (Auto) 9.1 % 09/05/21 03:21 Eos % (Auto) 1.0 % 09/05/21 03:21 Baso % (Auto) 0.5 % 09/05/21 03:21 Neut # (Auto) 2.98 10^3/uL (1.8-7.7) 09/05/21 03:21 Lymph # (Auto) 0.8 10^3/uL (0.8-4.8) 09/05/21 03:21 [place] # (Auto) 0.4 10^3/uL (0.2-0.9) 09/05/21 03:21 Eos # (Auto) 0.0 10^3/uL (0.0-0.8) 09/05/21 03:21 Baso # (Auto) 0.0 10^3/uL (0.0-0.1) 09/05/21 03:21 Nucleated RBC % (auto) 0 % 09/05/21 03:21 Nucleated RBCs # 0.0 /100WBC 09/05/21 03:21 APTT 35.0 SECONDS (23.9-36.7) 09/04/21 08:11 Specimen Type Arterial 09/05/21 03:55 Sample Site Radial, right 09/05/21 03:55 ABG pH 7.37 (7.35-7.45) 09/05/21 03:55 ABG pCO2 63.7 mmHg (35-45) H* 09/05/21 03:55 ABG pO2 61.9 mmHg (80.0-100.0) L 09/05/21 03:55 ABG HCO3 36.7 mmol/L (22-26) H 09/05/21 03:55 ABG O2 Saturation 91.4 09/04/21 08:28 ABG Base Excess 9.9 mmol/L (-2.0-2.0) H 09/05/21 03:55 Luis Test Pos 09/05/21 03:55 A-a O2 Gradient 11.3 mmHg (5-10) H 09/04/21 08:28 Hematocrit 26.7 % (42-52) L 09/05/21 03:55 Hgb O2 Saturation 89.5 % (95-100) L 09/04/21 08:28 Carboxyhemoglobin 1.8 %THgb (0.4-20.1) 09/04/21 08:28 Methemoglobin 0.3 % (0.4-1.5) L 09/04/21 08:28 Total Hemoglobin 9.1 g/dL (14-18) L 09/04/21 08:28 Sodium 146.0 mmol/L (131-143) H 09/04/21 08:28 Potassium 3.7 mmol/L (3.5-5.0) 09/04/21 08:28 Glucose 96.0 mg/dL (70-115) 09/04/21 08:28 O2 Delivery Device Nc 09/05/21 03:55 O2 Liters/Min 2.0 % 09/05/21 03:55 FiO2 32.0 % 09/04/21 08:28 Structural Shop Helper ID [email or web address] 09/05/21 03:55 Sodium 144 mmol/L (136-145) 09/06/21 05:00 Potassium 4.1 mmol/L (3.5-5.1) 09/06/21 05:00 Chloride 102 mmol/L (98-107) 09/06/21 05:00 Carbon Dioxide 34 mmol/L (22-29) H 09/06/21 05:00 Anion Gap 12.1 (5-19) 09/06/21 05:00 BUN 17 mg/dL (6-20) 09/06/21 05:00 Creatinine 1.1 mg/dL (0.7-1.2) 09/06/21 05:00 GFR Calculation 71.1 mL/min (90-130) L 09/06/21 05:00 Glucose 156 mg/dL (65-115) H 09/06/21 05:00 POC Glucose 138 mg/dL (70-110) H 09/06/21 12:21 Calculated Osmolality 303 mOsm/kg (285-295) H 09/06/21 05:00 Calcium 9.7 mg/dL (8.5-10.5) 09/06/21 05:00 Magnesium 2.1 mg/dL (1.7-2.3) 09/05/21 03:21 Troponin T Baseline 39 ng/L (0-15) H 09/04/21 08:11 Troponin T 120 Minute 36.67 ng/L (0-15) H 09/04/21 10:11 Delta Troponin T -2.33 ABS# (0-10) L 09/04/21 10:11 Troponin T Hi Sens 6Hr 38.28 ng/L (0-15) H 09/04/21 14:19 Troponin T Hi Sens 6Hr Delta -0.72 ng/L (0-12) L 09/04/21 14:19 NT-Pro-B Natriuret Pep 2840 pg/mL (0-125) H 09/04/21 08:11 SARS-CoV-2 Ag (Rapid) Negative (Negative) 09/04/21 08:37 Vitals Last Vital Signs Temp 98.1 F 09/06/21 11:36 Pulse 59 L 09/06/21 11:36 Resp 18 09/06/21 11:36 BP 150/74 09/06/21 11:36 Pulse Ox 98 09/06/21 11:36 Discharge Plan Discharge Patient Disposition: Home Condition: Stable Prescriptions: New Stool Softener-Laxative 8.6-50 mg Tablet 1 tab PO DAILY Qty: 30 2RF Continued (DME) oxygen-air delivery systems Device See Rx Instructions .ROUTE .MEDSUPPLY Qty: 1 0RF Rx Instructions: As directed albuterol sulfate 90 mcg/actuation HFA aerosol inhaler 2 puff inhalation QID PRN (Reason: Shortness Of Breath) 0RF atorvastatin [Lipitor] 80 mg Tablet 80 mg PO BEDTIME 0RF omeprazole 40 mg Capsule,Delayed Release(Dr/Ec) 40 mg PO QAM 0RF montelukast [Singulair] 10 mg Tablet 10 mg PO BEDTIME 0RF aspirin 81 mg Tablet,Delayed Release (Dr/Ec) 81 mg PO QAM 0RF Dulera 200-5 mcg/actuation HFA aerosol inhaler 2 puff INHALATION BID 0RF allopurinol 100 mg tablet 100 mg PO QAM 0RF lisinopril 5 mg tablet 5 mg PO QAM 0RF Janumet 50-1,000 mg tablet 1 tab PO BID 0RF potassium chloride [Klor-Con M20] 20 mEq Tablet,Er Particles/Crystals 40 meq PO DAILY Qty: 30 0RF atenolol 50 mg Tablet 50 mg PO QAM Qty: 30 0RF bumetanide 1 mg tablet 2 mg PO DAILY Qty: 60 0RF ferrous sulfate 325 mg (65 mg iron) tablet 325 mg PO BID 0RF tamsulosin 0.4 mg capsule 0.4 mg PO DAILY 0RF ziprasidone HCl 40 mg capsule 40 mg PO DAILY@17 0RF sertraline 50 mg tablet 50 mg PO DAILY 0RF acetaminophen [Tylenol] 325 mg capsule 325 mg PO Q6H PRN (Reason: pain) Qty: 14 0RF Discontinued acetazolamide 250 mg Tablet 250 mg PO DAILY Qty: 30 0RF Discharge Orders: Discharge Order (Routine); Ordered 09/06/21 Ordered By: Lester Araujo Referrals: Stewart Rosario MD [Primary Care Provider] - 1-3 days Datar,Stalin Patton MD [Physician] - 7-10 days Discharge Diet: Cardiac Discharge Activity: Increase activity as tolerated and Cpap/Bipap as instructed Patient Instructions: Opioid Safety Discharge Attestations Time Spent in Discharge Care*: less than 30 min Status at Discharge: Cognitive status at discharge: cognitively intact , Behavioral status at discharge: cooperative , Quality Metrics Clinical Quality Measures [ No reported AMI, CVA or VTE this stay] Coding Level of Care Code Acute Chg FW DC note Diagnoses Congestive heart failure with left ventricular diastolic dysfunction I50.33 Congestive heart failure chronicity: acute on chronic Morbid obesity E66.01 Acute respiratory failure with hypoxia and hypercapnia J96.01; J96.02 Hypertension I10 Chest pain R07.9
[2021-09-06 16:59] LABS: Glucose Point of Care 118 mg/dL (70-110)
== END 2021-09-06 17:05 | disposition home or self-care (01) ==
LOC: ER 11:24 → MEDSURG 17:28
PROVIDERS: Admitting Provider Internal Medicine; Emergency Provider Family Medicine; PCP Family Medicine; Visit Provider Internal Medicine
DX: I11.0 Hypertensive heart disease with heart failure (principal); I50.33 Acute on chronic diastolic (congestive) heart failure; E66.01 Morbid (severe) obesity due to excess calories; Z68.45 Body mass index [BMI] 70 or greater, adult; J96.01 Acute respiratory failure with hypoxia; J96.02 Acute respiratory failure with hypercapnia; R07.9 Chest pain, unspecified; F41.9 Anxiety disorder, unspecified; F32.A Depression, unspecified; D64.9 Anemia, unspecified; J96.11 Chronic respiratory failure with hypoxia; J96.12 Chronic respiratory failure with hypercapnia; G47.33 Obstructive sleep apnea (adult) (pediatric); Z86.73 Personal history of transient ischemic attack (TIA), and cerebral infarction without residual deficits; E78.2 Mixed hyperlipidemia; E11.9 Type 2 diabetes mellitus without complications
CPT/HCPCS: 36415; 36416; 36600; 71045; 80048; 80051; 82330; 82803; 82805; 82962; 83735; 83880; 84484; 85025; 85730; 87426; 93005; 94640; 94660; 96372; 96374; 99291; G0378; J1650; J1940

== ENCOUNTER 2021-09-08 09:17 | Emergency (ER) | payer MEDICAID, SELFPAY ==
[2021-09-08 09:19] VITALS: BP 160/85; PULSE 62; RESP 22; TEMP 36.6; O2SAT 91; BMI 63.8
--- NOTE | 2021-09-08 09:42 | ED_ITS ---
HPI - Headache General: Chief Complaint: Headache Stated Complaint: MIGRAINE Time Seen by Provider: 09/08/21 09:21 Source: patient Mode of arrival: EMS Limitations: physical limitation History of Present Illness: 51-year-old morbidly obese male presents emergently EMS complaint of headache. Is not taking any of his usual morning medications and is not taking anything for the headache. He is seen here on a regular basis. For the most part he is unable to really care for himself anymore but he refuses skilled nursing placement. He is significantly pickwickian. Patient is unable to manage his toileting needs due to his size and poor ambulation. He relates the reason he has a headache is because there is a gas leak in his apartment he has told his this on prior occasions as well but evidently he is never notify the [employer] company to have it evaluated. He lives in an apartment on his own. He denies chest pain or shortness of breath. MD elicited complaint: headache Pertinent past history: hypertension Onset (ago): hour(s) Location: right, left and frontal Severity: mild Quality & Timing: aching and throbbing Exacerbating factors: none Relieving factors: nothing Associated symptoms: Deny chest pain, fever(s), malaise, nausea, rash or vo miting Review of Systems Const: Denies: fever(s), chills, body aches, change in appetite, fatigue or malaise ENMT: Denies: throat pain, ear or mastoid pain, nasal discharge or nasal congestion Card: Denies: chest pain, edema, dyspnea on exertion or orthopnea Resp: Denies: dyspnea, productive cough or non-productive cough GI: Denies: abdominal pain, nausea, vomiting, hematemesis, coffee ground emesis, diarrhea, constipation, bloating, hematochezia or melena : Denies: flank pain, dysuria, urinary frequency or urinary urgency Skin/Breast: Denies: rash or pruritus Neuro: Reports: headache(s); Denies: numbness in extremities or weakness in extremities Psych: Reports: anxiety PFSH ED PFSH: Medical History Acute respiratory failure with hypoxia and hypercapnia Anemia -has chronic iron deficiency anemia, baseline Hg is around 9-10 Anxiety Chest pain Chest pain CHF (congestive heart failure) -Echo (07/2019): EF=68%, normal diastolic function, no RWMA -on oral lasix -no acute exacerbation currently Chronic respiratory failure Decubitus ulcer limited to breakdown of skin (stage 2) Depression Diabetes -NIDDM type II -A1c (11/2019): 8.2 -Accuchecks, ISS, hypoglycemia precautions -consistent carb diet -anticipate hyperglycemia with steroid use Gout Hyperlipemia, mixed Hypertension -VSS; continue to monitor -continue oral antihypertensives Hypertension Major depressive disorder, recurrent, moderate Morbid (severe) obesity due to excess calories Morbid obesity OPAL (obstructive sleep apnea) -in the process of getting CPAP set up Pneumonia Psychiatric care Transient cerebral ischemia Surgical History History of adenoidectomy History of hernia repair History of tonsillectomy History of umbilical hernia repair Family History Mother Hypertension CAD (coronary artery disease) Stroke Social History Smoking and tobacco status: never smoked Second hand smoke exposure: Yes Alcohol intake: never Adopted: No Caregiver/support person: No Lives independently: Yes Household members: family and friend(s) Housing: Manufactured/Mobile home Marital status: Single Number of children: 0 Number of grandchildren: 0 Highest education level completed: 8th Grade service: No Current occupational status: disabled Pets and animals: No History of recent travel: No Leisure activites: other Leisure activities details: play card games Sexually active: No Current gender identity: Male Yolanda/Sabianist: Other Special yolanda needs: No Agree to transfusion: Yes Financial difficulty paying for basics: Hard Physical Exam Const: COMMON NORMALS: no acute distress GENERAL APPEARANCE: cooperative and comfortable ORIENTATION/CONSCIOUSNESS: Yes awake, Yes oriented to person, Yes oriented to place and Yes oriented to time HENMT: COMMON NORMALS: normocephalic, atraumatic and hearing grossly normal bilaterally HEAD & SCALP: normocephalic and atraumatic Neck/C-Spine: COMMON NORMALS: no JVD Resp: COMMON NORMALS: normal respiratory effort, No retractions, No use of accessory muscles and clear to auscultation bilaterally AUSCULTATION: clear to auscultation bilaterally Cardio: COMMON NORMALS: no JVD, regular rate, regular rhythm and No murmurs present (Cardio) RATE: regular rate RHYTHM: regular rhythm GI: COMMON NORMALS: Soft to palpation and No hepatosplenomegaly present AUSCULTATION: Yes normoactive bowel sounds PALPATION: Yes Soft to palpation, No Tenderness to palpation present (GI), No Guarding due to palpation present (GI) and Yes No hepatosplenomegaly present Extremity: COMMON NORMALS: normal to inspection, capillary refill normal, no clubbing, cyanosis or edema, no calf tenderness and no pedal edema Neuro: SENSORIUM/ORIENTATION: Yes oriented to person, Yes oriented to place and Yes oriented to time Skin: COMMON NORMALS: no rashes or lesions noted GENERAL SKIN EXAM: no rash es or lesions noted Course Vital Signs: Vital signs: Vital Signs Temperature 97.8 F 09/08/21 09:19 Pulse Rate 62 09/08/21 09:19 Respiratory Rate 22 H 09/08/21 09:19 Blood Pressure 160/85 09/08/21 09:19 Pulse Oximetry 91 09/08/21 09:19 MDM - Headache Medical Decision Making Patient admits to not having used his CPAP last night and that that is what precipitates headache. His CO2 and his BMP is at his usual baseline. He is awake and alert he is not orthopneic. He is given some Phenergan and Toradol here we will go ahead and discharge him home he is sleeping comfortably I went back to talk to him. Encouraged him to use a CPAP at home discussed with him I think he would do better if he was in a skilled nursing setting he still refuses this has been discussed the multiple times in the past. Medical Records I reviewed the patient's medical records. Lab Data I reviewed the patient's lab results. : 09/08/21 09:35 09/08/21 09:35 Laboratory Results WBC 6.1 10^3/uL (4.0-10.0) 09/08/21 09:35 RBC 4.23 10^6/uL (4.1-5.3) 09/08/21 09:35 Hgb 9.4 g/dL (11.7-16.6) L 09/08/21 09:35 Hct 36.1 % (42.0-52.0) L 09/08/21 09:35 MCV 85.3 fl (80-94) 09/08/21 09:35 MCH 22.2 pg (28.0-34.0) L 09/08/21 09:35 MCHC 26.0 g/dL (30.0-36.0) L 09/08/21 09:35 RDW 20.8 % (12.1-15.1) H 09/08/21 09:35 Plt Count 246 10^3/cmm (130-400) 09/08/21 09:35 MPV 10.3 fL (7.4-10.4) 09/08/21 09:35 Neut % (Auto) 83.4 % 09/08/21 09:35 Lymph % (Auto) 9.2 % 09/08/21 09:35 [place] % (Auto) 5.9 % 09/08/21 09:35 Eos % (Auto) 0.7 % 09/08/21 09:35 Baso % (Auto) 0.5 % 09/08/21 09:35 Neut # (Auto) 5.05 10^3/uL (1.8-7.7) 09/08/21 09:35 Lymph # (Auto) 0.6 10^3/uL (0.8-4.8) L 09/08/21 09:35 [place] # (Auto) 0.4 10^3/uL (0.2-0.9) 09/08/21 09:35 Eos # (Auto) 0.0 10^3/uL (0.0-0.8) 09/08/21 09:35 Baso # (Auto) 0.0 10^3/uL (0.0-0.1) 09/08/21 09:35 Nucleated RBC % (auto) 0 % 09/08/21 09:35 Nucleated RBCs # 0.0 /100WBC 09/08/21 09:35 Sodium 141 mmol/L (136-145) 09/08/21 09:35 Potassium 4.2 mmol/L (3.5-5.1) 09/08/21 09:35 Chloride 99 mmol/L (98-107) 09/08/21 09:35 Carbon Dioxide 34 mmol/L (22-29) H 09/08/21 09:35 Anion Gap 12.2 (5-19) 09/08/21 09:35 BUN 15 mg/dL (6-20) 09/08/21 09:35 Creatinine 1.0 mg/dL (0.7-1.2) 09/08/21 09:35 GFR Calculation 79.4 mL/min (90-130) L 09/08/21 09:35 Glucose 166 mg/dL (65-115) H 09/08/21 09:35 Calculated Osmolality 297 mOsm/kg (285-295) H 09/08/21 09:35 Calcium 8.7 mg/dL (8.5-10.5) 09/08/21 09:35 Discharge Plan Discharge Patient Disposition: Home Clinical Impression: Headache, Chronic hypercapnic respiratory failure, Morbid obesity Condition: Stable Prescriptions: No Action (DME) oxygen-air delivery systems Device See Rx Instructions .ROUTE .MEDSUPPLY Qty: 1 0RF Rx Instructions: As directed albuterol sulfate 90 mcg/actuation HFA aerosol inhaler 2 puff inhalation QID PRN (Reason: Shortness Of Breath) 0RF atorvastatin [Lipitor] 80 mg Tablet 80 mg PO BEDTIME 0RF omeprazole 40 mg Capsule,Delayed Release(Dr/Ec) 40 mg PO QAM 0RF montelukast [Singulair] 10 mg Tablet 10 mg PO BEDTIME 0RF aspirin 81 mg Tablet,Delayed Release (Dr/Ec) 81 mg PO QAM 0RF Dulera 200-5 mcg/actuation HFA aerosol inhaler 2 puff INHALATION BID 0RF allopurinol 100 mg tablet 100 mg PO QAM 0RF lisinopril 5 mg tablet 5 mg PO QAM 0RF Janumet 50-1,000 mg tablet 1 tab PO BID 0RF potassium chloride [Klor-Con M20] 20 mEq Tablet,Er Particles/Crystals 40 meq PO DAILY Qty: 30 0RF atenolol 50 mg Tablet 50 mg PO QAM Qty: 30 0RF Stool Softener-Laxative 8.6-50 mg Tablet 1 tab PO DAILY Qty: 30 2RF bumetanide 1 mg tablet 2 mg PO DAILY Qty: 60 0RF ferrous sulfate 325 mg (65 mg iron) tablet 325 mg PO BID 0RF tamsulosin 0.4 mg capsule 0.4 mg PO DAILY 0RF ziprasidone HCl 40 mg capsule 40 mg PO DAILY@17 0RF sertraline 50 mg tablet 50 mg PO DAILY 0RF acetaminophen [Tylenol] 325 mg capsule 325 mg PO Q6H PRN (Reason: pain) Qty: 14 0RF Discharge Orders: Discharge ED (Routine); Ordered 09/08/21 Ordered By: Fantasma Del Angel Referrals: Stewart Rosario MD [Primary Care Provider] - Discharge Diet: Usual diet Discharge Activity: Increase activity as tolerated Patient Instructions: Opioid Safety Activity Restrictions/Additional Instructions: Use CPAP regularly as prescribed. Follow-up with your primary care doctor within the next 2 days. Coding Level of Care Code ED Circuits Engineer for Chg Fwd Exam Comprehensive
[2021-09-08] MEDS: ketorolac 30 mg/mL INJ IVP (09:49)
[2021-09-08 09:50] LABS: Basophils % 0.5 %; Eosinophils % 0.7 %; Hematocrit 36.1 % (42.0-52.0); Hemoglobin 9.4 g/dL (11.7-16.6); Lymphocytes # 0.6 10^3/uL (0.8-4.8); Lymphocytes % 9.2 %; Mean Corpuscular Hemoglobin 22.2 pg (28.0-34.0); Mean Corpuscular Volume 85.3 fl (80-94); Mean Platelet Volume 10.3 fL (7.4-10.4); Monocytes # 0.4 10^3/uL (0.2-0.9); Monocytes % 5.9 %; Neutrophils # 5.05 10^3/uL (1.8-7.7); Neutrophils % 83.4 %; Nucleated Red Blood Cells % 0 %; Platelet Count 246 10^3/cmm (130-400); Red Blood Count 4.23 10^6/uL (4.1-5.3); Red Cell Distribution Width 20.8 % (12.1-15.1); White Blood Count 6.1 10^3/uL (4.0-10.0)
[2021-09-08] MEDS: promethazine 25 mg/mL SDV 1 mL IM (09:50)
[2021-09-08 10:07] LABS: Anion Gap 12.2 (5-19); Blood Urea Nitrogen 15 mg/dL (6-20); Calcium 8.7 mg/dL (8.5-10.5); Carbon Dioxide 34 mmol/L (22-29); Chloride 99 mmol/L (98-107); Glomerular Filtration Rate 79.4 mL/min (90-130); Glucose 166 mg/dL (65-115); Osmolality Calculated 297 mOsm/kg (285-295); Potassium 4.2 mmol/L (3.5-5.1); Sodium 141 mmol/L (136-145)
[2021-09-08 11:00] VITALS: BP 155/94; PULSE 71; RESP 20; O2SAT 95
[2021-09-08 14:00] VITALS: BP 174/86; PULSE 66; RESP 20; O2SAT 93
== END 2021-09-08 14:47 | disposition home or self-care (01) ==
PROVIDERS: Emergency Provider Family Medicine; PCP Family Medicine
DX: R51.9 Headache, unspecified (principal); J96.12 Chronic respiratory failure with hypercapnia; E66.01 Morbid (severe) obesity due to excess calories; Z68.44 Body mass index [BMI] 60.0-69.9, adult; Z79.82 Long term (current) use of aspirin; I11.0 Hypertensive heart disease with heart failure; I50.9 Heart failure, unspecified; E11.9 Type 2 diabetes mellitus without complications; E78.2 Mixed hyperlipidemia; Z77.22 Contact with and (suspected) exposure to environmental tobacco smoke (acute) (chronic)
CPT/HCPCS: 80048; 85025; 96372; 96374; 99284; J1885; J2550

== ENCOUNTER 2021-09-22 13:10 | Emergency (ER) | payer MEDICAID, SELFPAY ==
[2021-09-22 13:21] VITALS: BP 162/74; PULSE 85; RESP 22; TEMP 37; O2SAT 95
--- NOTE | 2021-09-22 14:01 | ED_ITS ---
HPI - General Adult General: Chief complaint: Psychiatric Symptoms Stated complaint: SI/ HEADACHE Time Seen by Provider: 09/22/21 13:38 History of Present Illness: HPI: [51]yo patient w/ hx of depression BIBA for suicidal ideation and hearing voices. Patient tells me that he is hearing voices that are stating you need to . In addition, patient has suicidal ideation. On arrival, the patient is AAOx3 and cooperative with my evaluation. No focal complaints of chest pain, shortness of breath, palpitations, N/V, focal GI/ complaints. No complaints of hallucinations. Onset: acute Duration: ongoing Location: home Severity: severe Associated symptoms: Deny chest pain, dyspnea, nausea, rash, palpitations or vomiting Review of Systems Const: Denies: fever(s) or chills Eyes: Denies: change in vision ENMT: Denies: mouth pain Card: Denies: chest pain or palpitations Resp: Denies: dyspnea or non-productive cough GI: Denies: abdominal pain, nausea, vomiting or diarrhea : Denies: dysuria Musc: Denies: extremity pain Skin/Breast: Denies: rash or new lesions Neuro: Denies: weakness in extremities Psych: Reports: other (+auditory hallucinations) Mendel/Lymph: Denies: easy bruising PFSH ED PFSH: Medical History Acute respiratory failure with hypoxia and hypercapnia Anemia -has chronic iron deficiency anemia, baseline Hg is around 9-10 Anxiety Chest pain Chest pain CHF (congestive heart failure) -Echo (07/2019): EF=68%, normal diastolic function, no RWMA -on oral lasix -no acute exacerbation currently Chronic respiratory failure Decubitus ulcer limited to breakdown of skin (stage 2) Depression Diabetes -NIDDM type II -A1c (11/2019): 8.2 -Accuchecks, ISS, hypoglycemia precautions -consistent carb diet -anticipate hyperglycemia with steroid use Gout Hyperlipemia, mixed Hypertension -VSS; continue to monitor -continue oral antihypertensives Hypertension Major depressive disorder, recurrent, moderate Morbid (severe) obesity due to excess calories Morbid obesity OPAL (obstructive sleep apnea) -in the process of getting CPAP set up Pneumonia Psychiatric care Transient cerebral ischemia Surgical History History of adenoidectomy History of hernia repair History of tonsillectomy History of umbilical hernia repair Family History Mother Hypertension CAD (coronary artery disease) Stroke Social History Smoking and tobacco status: never smoked Second hand smoke exposure: Yes Alcohol intake: never Adopted: No Caregiver/support person: No Lives independently: Yes Household members: family and friend(s) Housing: Manufactured/Mobile home Marital status: Single Number of children: 0 Number of grandchildren: 0 Highest education level completed: 8th Grade service: No Current occupational status: disabled Pets and animals: No History of recent travel: No Leisure activites: other Leisure activities details: play card games Sexually active: No Current gender identity: Male Yolanda/Rastafarian: Other Special yolanda needs: No Agree to transfusion: Yes Financial difficulty paying for basics: Hard Physical Exam Const: COMMON NORMALS: alert HENMT: COMMON NORMALS: atraumatic HEAD & SCALP: atraumatic MOUTH: moist mucous membranes not abnormal Eye: COMMON NORMALS: EOMs intact bilaterally and conjunctivae normal CONJUNCTIVA: Yes conjunctivae normal Neck/C-Spine: COMMON NORMALS: full ROM and supple Resp: COMMON NORMALS: normal respiratory effort and clear to auscultation bilaterally AUSCULTATION: clear to auscultation bilaterally Cardio: COMMON NORMALS: regular rate RATE: regular rate GI: COMMON NORMALS: Soft to palpation and non-tender PALPATION: Yes Soft to palpation Extremity: COMMON NORMALS: full ROM Neuro: SENSORIUM/ORIENTATION: Yes alert MOTOR EXAM: No Abnormal motor strength present and Other motor observations present (no focal motor deficits) Psych: COMMON NORMALS: speech normal SPEECH: Yes normal speech MOOD & AFFECT: Yes euthymic mood Course Vital Signs: Vital signs: Vital Signs Temperature 98.6 F 09/22/21 13:21 Pulse Rate 85 09/22/21 13:21 Respiratory Rate 22 H 09/22/21 13:21 Blood Pressure 162/74 09/22/21 13:21 Pulse Oximetry 95 09/22/21 13:21 MDM - General Adult Medical Decision Making [51]yo patient w/ hx of depression presenting for SI and auditory hallucination. HDS, exam within normal limit Thoughts are linear and organized, and the patient has AH and SI . No VH or HI. Clinically the patient displays no overt toxidrome; they are well appearing, wi th low suspicion for toxic ingestion given history and exam. Symptoms unlikely 2/2 anemia, hypothyroidism, infection, or ICH. Workup: CBC, CMP, Lipase, salicylate/tylenol, UDS Lab findings: wnl [3:40pm] On reassessment, labs and workup wnl. Patient is hemodynamically stable with no acute medical complaints. Case discussed with psychiatric provider Dr. Hernandez at [facility] psych inpatient who evaluated patient at bedside and tells me that patient is no longer verbalizing desire to hurt himself or hearing voices. Dr. Hernandez is okay with patient going home with close follow-up with [facility] [place]. I have given patient follow up with our shoe caser to be seen by our outpatient behavioral health clinic. Patient aware of a call from our shoe caser to schedule for appointment(s) and verbalizes understanding of the importance of following up. Disposition: Discharge. Patient counseled regarding diagnostic impression, treatment plan. Patient given ED strict return precautions to return for continuation, worsening, or development of new symptoms. Instructed to f/u w/ [facility] regarding symptoms today. Patient verbalized understanding. Lab Data : 09/22/21 15:00 09/22/21 15:00 Laboratory Results WBC 5.3 10^3/uL (4.0-10.0) 09/22/21 15:00 RBC 4.03 10^6/uL (4.1-5.3) L 09/22/21 15:00 Hgb 8.9 g/dL (11.7-16.6) L 09/22/21 15:00 Hct 34.3 % (42.0-52.0) L 09/22/21 15:00 MCV 85.1 fl (80-94) 09/22/21 15:00 MCH 22.1 pg (28.0-34.0) L 09/22/21 15:00 MCHC 25.9 g/dL (30.0-36.0) L 09/22/21 15:00 RDW 20.1 % (12.1-15.1) H 09/22/21 15:00 Plt Count 221 10^3/cmm (130-400) 09/22/21 15:00 MPV 9.2 fL (7.4-10.4) 09/22/21 15:00 Neut % (Auto) 76.1 % 09/22/21 15:00 Lymph % (Auto) 14.3 % 09/22/21 15:00 [place] % (Auto) 8.1 % 09/22/21 15:00 Eos % (Auto) 0.9 % 09/22/21 15:00 Baso % (Auto) 0.4 % 09/22/21 15:00 Neut # (Auto) 4.06 10^3/uL (1.8-7.7) 09/22/21 15:00 Lymph # (Auto) 0.8 10^3/uL (0.8-4.8) 09/22/21 15:00 [place] # (Auto) 0.4 10^3/uL (0.2-0.9) 09/22/21 15:00 Eos # (Auto) 0.1 10^3/uL (0.0-0.8) 09/22/21 15:00 Baso # (Auto) 0.0 10^3/uL (0.0-0.1) 09/22/21 15:00 Nucleated RBC % (auto) 0 % 09/22/21 15:00 Nucleated RBCs # 0.0 /100WBC 09/22/21 15:00 Sodium 139 mmol/L (136-145) 09/22/21 15:00 Potassium 3.9 mmol/L (3.5-5.1) 09/22/21 15:00 Chloride 96 mmol/L (98-107) L 09/22/21 15:00 Carbon Dioxide 35 mmol/L (22-29) H 09/22/21 15:00 Anion Gap 11.9 (5-19) 09/22/21 15:00 BUN 13 mg/dL (6-20) 09/22/21 15:00 Creatinine 1.1 mg/dL (0.7-1.2) 09/22/21 15:00 GFR Calculation 71.1 mL/min (90-130) L 09/22/21 15:00 Glucose 97 mg/dL (65-115) 09/22/21 15:00 Calculated Osmolality 288 mOsm/kg (285-295) 09/22/21 15:00 Calcium 9.6 mg/dL (8.5-10.5) 09/22/21 15:00 Salicylates < 0.3 mg/dL (3-10) L 09/22/21 15:00 Acetaminophen < 5.0 ug/mL (10-30) L 09/22/21 15:00 Discharge Plan Discharge Patient Disposition: Home Clinical Impression: Adult general medical exam Condition: Stable Prescriptions: No Action (DME) oxygen-air delivery systems Device See Rx Instructions .ROUTE .MEDSUPPLY Qty: 1 0RF Rx Instructions: As directed albuterol sulfate 90 mcg/actuation HFA aerosol inhaler 2 puff inhalation QID PRN (Reason: Shortness Of Breath) 0RF atorvastatin [Lipitor] 80 mg Tablet 80 mg PO BEDTIME 0RF omeprazole 40 mg Capsule,Delayed Release(Dr/Ec) 40 mg PO QAM 0RF montelukast [Singulair] 10 mg Tablet 10 mg PO BEDTIME 0RF aspirin 81 mg Tablet,Delayed Release (Dr/Ec) 81 mg PO QAM 0RF Dulera 200-5 mcg/actuation HFA aerosol inhaler 2 puff INHALATION BID 0RF allopurinol 100 mg tablet 100 mg PO QAM 0RF lisinopril 5 mg tablet 5 mg PO QAM 0RF Janumet 50-1,000 mg tablet 1 tab PO BID 0RF potassium chloride [Klor-Con M20] 20 mEq Tablet,Er Particles/Crystals 40 meq PO DAILY Qty: 30 0RF atenolol 50 mg Tablet 50 mg PO QAM Qty: 30 0RF Stool Softener-Laxative 8.6-50 mg Tablet 1 tab PO DAILY Qty: 30 2RF bumetanide 1 mg tablet 2 mg PO DAILY Qty: 60 0RF ferrous sulfate 325 mg (65 mg iron) tablet 325 mg PO BID 0RF tamsulosin 0.4 mg capsule 0.4 mg PO DAILY 0RF ziprasidone HCl 40 mg capsule 40 mg PO DAILY@17 0RF sertraline 50 mg tablet 50 mg PO DAILY 0RF acetaminophen [Tylenol] 325 mg capsule 325 mg PO Q6H PRN (Reason: pain) Qty: 14 0RF Discharge Orders: Discharge ED (Routine); Ordered 09/22/21 Ordered By: Vicenta Acosta Referrals: Stewart Rosario MD [Primary Care Provider] - Discharge Diet: Advance as tolerated Discharge Activity: Increase activity as tolerated Patient Instructions: Depression (ED) Activity Restrictions/Additional Instructions: Please come back to the emergency room if you need help, have any hallucinations, or you have any depression or have thoughts about hurting your self or other people. Coding Level of Care Code ED Account Director for Zac Fwd Exam Comprehensive
[2021-09-22 15:08] LABS: Basophils % 0.4 %; Eosinophils # 0.1 10^3/uL (0.0-0.8); Eosinophils % 0.9 %; Hematocrit 34.3 % (42.0-52.0); Hemoglobin 8.9 g/dL (11.7-16.6); Lymphocytes # 0.8 10^3/uL (0.8-4.8); Lymphocytes % 14.3 %; Mean Corpuscular HGB Conc 25.9 g/dL (30.0-36.0); Mean Corpuscular Hemoglobin 22.1 pg (28.0-34.0); Mean Corpuscular Volume 85.1 fl (80-94); Mean Platelet Volume 9.2 fL (7.4-10.4); Monocytes # 0.4 10^3/uL (0.2-0.9); Monocytes % 8.1 %; Neutrophils # 4.06 10^3/uL (1.8-7.7); Neutrophils % 76.1 %; Nucleated Red Blood Cells % 0 %; Platelet Count 221 10^3/cmm (130-400); Red Blood Count 4.03 10^6/uL (4.1-5.3); Red Cell Distribution Width 20.1 % (12.1-15.1); White Blood Count 5.3 10^3/uL (4.0-10.0)
[2021-09-22 15:27] LABS: Anion Gap 11.9 (5-19); Blood Urea Nitrogen 13 mg/dL (6-20); Calcium 9.6 mg/dL (8.5-10.5); Carbon Dioxide 35 mmol/L (22-29); Chloride 96 mmol/L (98-107); Glomerular Filtration Rate 71.1 mL/min (90-130); Glucose 97 mg/dL (65-115); Osmolality Calculated 288 mOsm/kg (285-295); Potassium 3.9 mmol/L (3.5-5.1); Sodium 139 mmol/L (136-145)
[2021-09-22 15:33] LABS: Acetaminophen < 5.0 ug/mL (10-30); Salicylate < 0.3 mg/dL (3-10)
[2021-09-22 15:43] LABS: Amphetamines Screen Urine Negative (Negative); Barbiturates Screen Urine Negative (Negative); Benzodiazepines Screen Urine Negative (Negative); Cocaine Screen Urine Negative (Negative); Opiate Screen Urine Negative (Negative); PCP Screen Urine Negative (Negative); THC Screen Urine Negative (Negative)
--- NOTE | 2021-09-22 15:44 | P.NPUCON_ITS ---
Providers/Reason for Consult Consulting Physican/Specialty*: Barrett Hernandez MD/Psychiatist Reason for Consult*: Auditory hallucinations and suicidal ideation Primary Care Provider: Stewart Rosario MD Psych Consult HPI History of Present Illness Arnol Guzman is a 51 year old male was seen in the emergency department with the following report: HPI: [51]yo patient w/ hx of depression BIBA for suicidal ideation and hearing voices.? Patient tells me that he is hearing voices that are stating you need to . ? In addition, patient has suicidal ideation.? On arrival, the patient is AAOx3 and cooperative with my evaluation. No focal complaints of chest pain, shortness of breath, palpitations, N/V, focal GI/ complaints. No complaints of hallucinations. He was in a wheelchair in the hallway beside the sitter when I found him.He recognized me from previous admissions and asked how I was doing. He said that he still did not remember why he moved from the psychiatry unit up to the medical surgical floor on his previous admission. He was told that he was too medically complicated and needed oxygen and could not be on the neuropsychiatry unit. He says that he was having some auditory hallucinations when he was at home but has not had them in the last hour or so. He denies any suicidal or homicidal ideations. He said that he was hoping that they would send him home soon. Meds Home Medications and Allergies Home Medications Medication Instructions Recorded Confirmed Last Taken Type atorvastatin 80 mg tablet (Lipitor) 80 mg PO BEDTIME 07/14/19 09/04/21 07/24/21 History montelukast 10 mg tablet 10 mg PO BEDTIME 07/14/19 09/04/21 07/24/21 History (Singulair) omeprazole 40 mg capsule,delayed 40 mg PO QAM 07/14/19 09/04/21 07/24/21 History release oxygen-air delivery systems #1 03/11/20 09/04/21 Unknown History albuterol sulfate 90 mcg/actuation 2 puff INHALATION QID PRN 05/19/20 09/04/21 07/25/21 History aerosol inhaler aspirin 81 mg tablet,delayed 81 mg PO QAM 09/13/20 09/04/21 07/24/21 History release mometasone-formoterol HFA 200 2 puff INHALATION BID 11/24/20 09/04/21 07/24/21 History mcg-5 mcg/actuation aerosol inhaler (Dulera) allopurinol 100 mg tablet 100 mg PO QAM 02/16/21 09/04/21 07/24/21 History lisinopril 5 mg tablet 5 mg PO QAM 02/16/21 09/04/21 07/24/21 History sitagliptin 50 mg-metformin 1,000 1 tab PO BID 02/16/21 09/04/21 07/24/21 History mg tablet (Janumet) ferrous sulfate 325 mg (65 mg 325 mg PO BID 06/22/21 09/04/21 07/24/21 History iron) tablet sertraline 50 mg tablet 50 mg PO DAILY 07/13/21 09/04/21 07/24/21 History tamsulosin 0.4 mg capsule 0.4 mg PO DAILY 07/13/21 09/04/21 07/24/21 History ziprasidone HCl 40 mg capsule 40 mg PO DAILY@17 07/13/21 09/04/21 07/24/21 History acetaminophen 325 mg capsule 325 mg PO Q6H PRN #14 cap 07/15/21 09/04/21 Unknown Rx (Tylenol) atenolol 50 mg tablet 50 mg PO QAM #30 tab 09/01/21 09/04/21 Unknown Rx potassium chloride 20 mEq 40 meq PO DAILY #30 tab 09/01/21 09/04/21 Unknown Rx tablet,extended release(part/cryst) (Klor-Con M) bumetanide 1 mg tablet 2 mg PO DAILY #60 tab 09/06/21 09/04/21 Unknown Rx sennosides 8.6 mg-docusate sodium 1 tab PO DAILY #30 tab 09/06/21 Unknown Rx 50 mg tablet (Stool Softener-Laxative) Allergies Allergy/AdvReac Type Severity Reaction Status Date / Time Penicillins Allergy ALGY-Hives Verified 09/22/21 13:25 diltiazem [From Cardizem] AdvReac ADR/ALGY-Pa Verified 09/22/21 13:25 lpitations PFSH NPU PFSH: Medical History (Updated 09/22/21 @ 15:49 by Barrett Hernandez MD) Acute respiratory failure with hypoxia and hypercapnia Anemia -has chronic iron deficiency anemia, baseline Hg is around 9-10 Anxiety Chest pain Chest pain CHF (congestive heart failure) -Echo (07/2019): EF=68%, normal diastolic function, no RWMA -on oral lasix -no acute exacerbation currently Chronic respiratory failure Decubitus ulcer limited to breakdown of skin (stage 2) Depression Diabetes -NIDDM type II -A1c (11/2019): 8.2 -Accuchecks, ISS, hypoglycemia precautions -consistent carb diet -anticipate hyperglycemia with steroid use Gout Hyperlipemia, mixed Hypertension -VSS; continue to monitor -continue oral antihypertensives Hypertension Major depressive disorder, recurrent, moderate Morbid (severe) obesity due to excess calories Morbid obesity OPAL (obstructive sleep apnea) -in the process of getting CPAP set up Pneumonia Psychiatric care Transient cerebral ischemia Surgical History History of adenoidectomy History of hernia repair History of tonsillectomy History of umbilical hernia repair Family History Mother Hypertension CAD (coronary artery disease) Stroke Social History Smoking and tobacco status: never smoked Second hand smoke exposure: Yes Alcohol intake: never Adopted: No Caregiver/support person: No Lives independently: Yes Household members: family and friend(s) Housing: Manufactured/Mobile home Marital status: Single Number of children: 0 Number of grandchildren: 0 Highest education level completed: 8th Grade service: No Current occupational status: disabled Pets and animals: No History of recent travel: No Leisure activites: other Leisure activities details: play card games Sexually active: No Current gender identity: Male Yolanda/Buddhist: Other Special yolanda needs: No Agree to transfusion: Yes Financial difficulty paying for basics: Hard Vitals/I&O/Wt Last Vital Signs Temp 98.6 F 09/22/21 13:21 Pulse 85 09/22/21 13:21 Resp 22 H 09/22/21 13:21 BP 162/74 09/22/21 13:21 Pulse Ox 95 09/22/21 13:21 Data NPU : 09/22/21 15:00 09/22/21 15:00 A&P Assessment and plan (1) Depression: Status: Acute Plan This is a 51-year-old massively obese white male who is well-known to us with frequent emergency room visits. He says that he had voices at home but does not hear voices currently. He denies any suicidal or homicidal ideation and feels like he is ready to go home. He does not need to be in the hospital and is cleared from a psychiatric standpoint to be released. Involuntary Hold Information 96 Hour Hold: 96 Hour Involuntary Admission: Yes 96 Hour Hold Ending Date: 06/27/21 96 Hour Hold Ending Time: 20:54 Attestations NPU Medical Necessity Statement*: See attending physician's notes on medical necessity. Coding Level of Care Code Acute [employer] Canvas Fabricator for Zac Pickett Diagnoses Depression F32.A
--- NOTE | 2021-09-27 15:15 | DCPLANNER ---
farm operations manager had message to speak with patient about follow up at [facility]. farm operations manager called phone number [phone], unable to speak with patient and unable to leave a voicemail for patient at this time.
== END 2021-09-22 16:55 | disposition home or self-care (01) ==
PROVIDERS: Emergency Provider Emergency Medicine; PCP Family Medicine
DX: Z00.00 Encounter for general adult medical examination without abnormal findings (principal); Z79.82 Long term (current) use of aspirin; I11.0 Hypertensive heart disease with heart failure; I50.9 Heart failure, unspecified; E11.9 Type 2 diabetes mellitus without complications; E78.2 Mixed hyperlipidemia
CPT/HCPCS: 80048; 80306; 80307; 85025; 99283

== ENCOUNTER → 2021-09-28 08:35 | Outpatient (BNVA) | payer MEDICAID, SELFPAY | PROVIDERS: PCP Family Medicine; Visit Provider Counselor Professional | DX: F33.1 Major depressive disorder, recurrent, moderate (principal) | CPT/HCPCS: 90832 ==

== ENCOUNTER 2021-10-05 15:49 | Inpatient (IN) | payer MEDICAID, SELFPAY ==
[2021-10-05] VITALS (8 sets, daily range): BP systolic 124–166; BP diastolic 49–104; PULSE 63–71; RESP 12–24; TEMP 36.2; O2SAT 90–98; BMI 71.8
--- NOTE | 2021-10-05 16:10 | XR_ITS ---
WS: [id number] Exam: XR chest 1V portable [id number] Date/Time of Exam: 10/05/2021 4:15 PM Reason For Exam: dyspnea/cough Comparison 09/04/2021. The lungs are fully inflated and clear. Cardiomediastinal structures are unremarkable for technique. No pleural effusions. Regional bony elements are intact. XR/XR chest 1V portable [id number] IMPRESSION: 1. No acute cardiopulmonary finding.
--- NOTE | 2021-10-05 16:10 | ECG_ITS ---
[facility] Test Date: 2021-10-05 Pat Name: Arnol Guzman Department: Room: Gender: Male Signal Intelligence/Electronic Warfare: : 1970 Requested By: Fantasma Olson Order Number: [id number] Bernardino MD: Armand Bunch M.D. Measurements Intervals [place] Rate: 63 P: 58 UT: 197 QRS: 108 QRSD: 108 T: 82 QT: 434 QTc: 445 Interpretive Statements SINUS RHYTHM RIGHT AXIS DEVIATION [QRS AXIS > 100] PATTERN CONSISTENT WITH PULMONARY DISEASE INCOMPLETE RIGHT BUNDLE BRANCH BLOCK [90+ ms QRS DURATION, TERMINAL R IN V1/V2, 40+ ms S IN I/aVL/V4/V5/V6] Compared to ECG 09/04/2021 15:44:34 No significant changes Electronically Signed On 10-05-2021 17:11:52 CDT by Armand Bunch M.D. [email or web address] medical [id number]
--- NOTE | 2021-10-05 16:11 | W.ED.WEAKNES ---
HPI - Weakness General: Chief complaint: Weakness Stated complaint: WEAKNESS Time Seen by Provider: 10/05/21 16:03 Source: patient Mode of arrival: ambulatory Limitations: no limitations History of Present Illness: 51-year-old male presents emergency room with chief complaint of weakness difficulty breathing. States he is also had some left arm numbness has been aggressively worsening the last couple of days. He states he also has lot of swelling in his belly. Patient has a history of chronic kidney disease congestive heart failure morbid obesity. He has anasarca above the level of the umbilicus today. Is also complaining of increased oxygen needs. He normally is on 2 to 3 L at home he is up to 5 L on arrival here. MD Complaint: generalized weakness Onset (ago): day(s) Duration: constant Location: generalized Severity: moderate Quality: tingling (Left arm) and numbness Relieving factors: none Exacerbating factors: none Associated symptoms: Reports short of breath; Denies chest pain, chills, confusion, melena, decreased appetite, diaphoresis, dysuria, easy bruising, fever(s), headache(s), myalgias, nausea, rash, syncope or vomiting Review of Systems Const: Denies: fever(s), chills or diaphoresis Card: Reports: edema; Denies: chest pain, palpitations or syncope Resp: Reports: dyspnea and non-productive cough; Denies: productive cough GI: Denies: abdominal pain, nausea, vomiting or melena : Denies: dysuria Skin/Breast: Denies: rash or pruritus Neuro: Reports: numbness in extremities and weakness in extremities; Denies: headache(s) or confusion Mendel/Lymph: Denies: easy bruising or easy bleeding PFSH ED PFSH: Medical History Acute respiratory failure with hypoxia and hypercapnia Anemia -has chronic iron deficiency anemia, baseline Hg is around 9-10 Anxiety Chest pain Chest pain CHF (congestive heart failure) -Echo (07/2019): EF=68%, normal diastolic function, no RWMA -on oral lasix -no acute exacerbation currently CHF (congestive heart failure) Chronic anemia Chronic respiratory failure Decubitus ulcer limited to breakdown of skin (stage 2) Depression Diabetes -NIDDM type II -A1c (11/2019): 8.2 -Accuchecks, ISS, hypoglycemia precautions -consistent carb diet -anticipate hyperglycemia with steroid use Gout Hyperlipemia, mixed Hypertension -VSS; continue to monitor -continue oral antihypertensives Hypertension Major depressive disorder, recurrent, moderate Morbid (severe) obesity due to excess calories Morbid obesity OPAL (obstructive sleep apnea) -in the process of getting CPAP set up Pneumonia Psychiatric care Transient cerebral ischemia Surgical History History of adenoidectomy History of hernia repair History of tonsillectomy History of umbilical hernia repair Family History Mother Hypertension CAD (coronary artery disease) Stroke Social History Smoking and tobacco status: never smoked Second hand smoke exposure: Yes Alcohol intake: never Adopted: No Caregiver/support person: No Lives independently: Yes Household members: family and friend(s) Housing: Manufactured/Mobile home Marital status: Single Number of children: 0 Number of grandchildren: 0 Highest education level completed: 8th Grade service: No Current occupational status: disabled Pets and animals: No History of recent travel: No Leisure activites: other Leisure activities details: play card games Sexually active: No Current gender identity: Male Yolanda/Protestant: Other Special yolanda needs: No Agree to transfusion: Yes Financial difficulty paying for basics: Hard Physical Exam Const: GENERAL APPEARANCE: cooperative ORIENTATION/CONSCIOUSNESS: Yes awake, Yes oriented to person, Yes oriented to place and Yes oriented to time HENMT: COMMON NORMALS: normocephalic, atraumatic and hearing grossly normal bilaterally HEAD & SCALP: normocephalic and atraumatic Resp: AUSCULTATION: crackles, rhonchi and diminished lung sounds Cardio: COMMON NORMALS: regular rate, regular rhythm and No murmurs present (Cardio) RATE: regular rate RHYTHM: regular rhythm GI: COMMON NORMALS: Soft to palpation and No hepatosplenomegaly present INSPECTION: Yes Anasarca AUSCULTATION: Yes normoactive bowel sounds PALPATION: Yes Soft to palpation, No Tenderness to palpation present (GI), No Guarding due to palpation present (GI) and Yes No hepatosplenomegaly present Extremity: COMMON NORMALS: capillary refill normal GENERAL: Yes edema (3+ edema lower extremities anasarca extending above the level of the umbili) Neuro: SENSORIUM/ORIENTATION: Yes oriented to person, Yes oriented to place and Yes oriented to time Course Vital Signs: Vital signs: Vital Signs Temperature 98.2 F 10/10/21 00:00 Pulse Rate 64 10/10/21 16:00 Respiratory Rate 14 10/10/21 16:00 Blood Pressure 138/75 10/10/21 16:00 Pulse Oximetry 89 L 10/10/21 16:00 MDM - Weakness Medical Decision Making Acute on chronic respiratory failure.Exacerbated by CHF and noncompliance with his BiPAP. Discussed with hospitalist orders written Medical Records I reviewed the patient's medical records. Lab Data I reviewed the patient's lab results. : 10/09/21 06:05 10/10/21 02:45 Radiology Impressions Chest X-Ray 10/05/21 16:10 IMPRESSION: 1. No acute cardiopulmonary finding. Head CT 10/05/21 16:13 IMPRESSION: 1. No acute intracranial abnormality. 2. 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 Laboratory Results WBC 5.2 10^3/uL (4.0-10.0) 10/05/21 17:03 RBC 3.95 10^6/uL (4.1-5.3) L 10/05/21 17:03 Hgb 8.8 g/dL (11.7-16.6) L 10/05/21 17:03 Hct 33.3 % (42.0-52.0) L 10/05/21 17:03 MCV 84.3 fl (80-94) 10/05/21 17:03 MCH 22.3 pg (28.0-34.0) L 10/05/21 17:03 MCHC 26.4 g/dL (30.0-36.0) L 10/05/21 17:03 RDW 20.2 % (12.1-15.1) H 10/05/21 17:03 Plt Count 244 10^3/cmm (130-400) 10/05/21 17:03 MPV 10.0 fL (7.4-10.4) 10/05/21 17:03 Neut % (Auto) 76.8 % 10/05/21 17:03 Lymph % (Auto) 12.4 % 10/05/21 17:03 Walker % (Auto) 8.8 % 10/05/21 17:03 Eos % (Auto) 1.0 % 10/05/21 17:03 Baso % (Auto) 0.8 % 10/05/21 17:03 Neut # (Auto) 4.03 10^3/uL (1.8-7.7) 10/05/21 17:03 Lymph # (Auto) 0.7 10^3/uL (0.8-4.8) L 10/05/21 17:03 Walker # (Auto) 0.5 10^3/uL (0.2-0.9) 10/05/21 17:03 Eos # (Auto) 0.1 10^3/uL (0.0-0.8) 10/05/21 17:03 Baso # (Auto) 0.0 10^3/uL (0.0-0.1) 10/05/21 17:03 Nucleated RBC % (auto) 0 % 10/05/21 17:03 Nucleated RBCs # 0.0 /100WBC 10/05/21 17:03 Specimen Type Arterial 10/05/21 16:02 Sample Site Radial, left 10/05/21 16:02 ABG pH 7.36 (7.35-7.45) 10/05/21 16:02 ABG pCO2 57.2 mmHg (35-45) H 10/05/21 16:02 ABG pO2 67.6 mmHg (80.0-100.0) L 10/05/21 16:02 ABG HCO3 32.5 mmol/L (22-26) H 10/05/21 16:02 ABG O2 Saturation 92.6 10/05/21 16:02 ABG Base Excess 6.1 mmol/L (-2.0-2.0) H 10/05/21 16:02 Luis Test Pos 10/05/21 16:02 A-a O2 Gradient 18.3 mmHg (5-10) H 10/05/21 16:02 Hematocrit 26.8 % (42-52) L 10/05/21 16:02 Hgb O2 Saturation 90.3 % (95-100) L 10/05/21 16:02 Carboxyhemoglobin 1.7 %THgb (0.4-20.1) 10/05/21 16:02 Methemoglobin 0.8 % (0.4-1.5) 10/05/21 16:02 Total Hemoglobin 8.8 g/dL (14-18) L 10/05/21 16:02 Sodium 141.0 mmol/L (131-143) 10/05/21 16:02 Potassium 4.2 mmol/L (3.5-5.0) 10/05/21 16:02 Glucose 103.0 mg/dL (70-115) 10/05/21 16:02 Ionized Calcium 1.2 mmol/L (1.1-1.4) 10/05/21 16:02 O2 Delivery Device Nc 10/05/21 16:02 O2 Liters/Min 5.0 % 10/05/21 16:02 FiO2 40.0 % 10/05/21 16:02 Electrical Designer Drafter ID Ed 10/05/21 16:02 Sodium 136 mmol/L (136-145) 10/05/21 17:03 Potassium 4.7 mmol/L (3.5-5.1) 10/05/21 17:03 Chloride 97 mmol/L (98-107) L 10/05/21 17:03 Carbon Dioxide 31 mmol/L (22-29) H 10/05/21 17:03 Anion Gap 12.7 (5-19) 10/05/21 17:03 BUN 23 mg/dL (6-20) H 10/05/21 17:03 Creatinine 1.2 mg/dL (0.7-1.2) 10/05/21 17:03 GFR Calculation 64.4 mL/min (90-130) L 10/05/21 17:03 Glucose 109 mg/dL (65-115) 10/05/21 17:03 Calculated Osmolality 286 mOsm/kg (285-295) 10/05/21 17:03 Lactic Acid 1.4 mmol/L (0.5-2.2) 10/05/21 17:03 Calcium 9.5 mg/dL (8.5-10.5) 10/05/21 17:03 Total Bilirubin 1.7 mg/dL (0.15-1.2) H 10/05/21 17:03 AST 18 U/L (0-40) 10/05/21 17:03 ALT 15 U/L (0-41) 10/05/21 17:03 Alkaline Phosphatase 304 IU/L (40-130) H 10/05/21 17:03 Creatine Kinase 35 U/L (39-308) L 10/05/21 17:03 Troponin T Baseline 31 ng/L (0-15) H 10/05/21 17:03 Total Protein 7.5 g/dL (6.6-8.7) 10/05/21 17:03 Albumin 3.9 g/dL (3.5-5.2) 10/05/21 17:03 Globulin 3.6 g/dL (1.3-4.6) 10/05/21 17:03 Urine Color Yellow (Yellow) 10/05/21 17:02 Urine Appearance Clear (CLEAR) 10/05/21 17:02 Urine pH 6 (5-7) 10/05/21 17:02 Ur Specific [place] 1.010 (1.005-1.030) 10/05/21 17:02 Urine Protein Neg (Negative) 10/05/21 17:02 Urine Glucose (UA) Norm (Normal) 10/05/21 17:02 Urine Ketones Negative (Negative) 10/05/21 17:02 Urine Blood Neg (Negative) 10/05/21 17:02 Urine Nitrate Negative (Negative) 10/05/21 17:02 Urine Bilirubin Neg (Negative) 10/05/21 17:02 Urine Urobilinogen Norm mg/dL (Negative) 10/05/21 17:02 Ur Leukocyte Esterase Negative (Negative) 10/05/21 17:02 Discharge Plan Discharge Patient Disposition: Admitted As Inpatient Admit Provider: Lester Aarujo Clinical Impression: Acute respiratory failure with hypoxia, Anemia, Acute kidney injury, Diastolic congestive heart failure, Obstructive sleep apnea, Diabetes mellitus Condition: Stable Discharge Orders: Discharge Order (Routine); Ordered 10/10/21 Ordered By: Lester Araujo Discharge Diet: Diabetic Discharge Activity: As per PT/OT instructions Coding Level of Care Code ED Process Improvement Consultant for Chg Fwd Exam Detailed
[2021-10-05 16:13] LABS: ABG PCO2 57.2 mmHg (35-45); ABG PH Result 7.36 (7.35-7.45); Alveolar-Arterial Oxygen Gradi 18.3 mmHg (5-10); Arterial Blood Gas Hematocrit 26.8 % (42-52); Base Excess ABG 6.1 mmol/L (-2.0-2.0); Blood Gas Allen Test Pos; Blood Gas Operator Identificat ED; Blood Gas Sample Site Radial, left; Blood Gas Sample Type Arterial; Carboxyhemoglobin 1.7 %THgb (0.4-20.1); HCO3 ABG 32.5 mmol/L (22-26); HGB O2 Sat 90.3 % (95-100); Ionized Calcium Level - ABG 1.2 mmol/L (1.1-1.4); Methemoglobin 0.8 % (0.4-1.5); Oxygen Device NC; Oxygen Saturation ABG 92.6; PO2 ABG 67.6 mmHg (80.0-100.0); Potassium Level - ABG 4.2 mmol/L (3.5-5.0); Total Hemoglobin 8.8 g/dL (14-18)
--- NOTE | 2021-10-05 16:13 | CTR_ITS ---
PROCEDURE INFORMATION: Exam: CT Head Without Contrast Exam date and time: 10/05/2021 4:28 PM Age: 51 years old Clinical indication: Weakness, extremity; Left; Additional info: Left arm numbness TECHNIQUE: Imaging protocol: Computed tomography of the head without contrast. Radiation optimization: All CT scans at this facility use at least one of these dose optimization techniques: automated exposure control; mA and/or kV adjustment per patient size (includes targeted exams where dose is matched to clinical indication); or iterative reconstruction. COMPARISON: CT head wo con* [id number] 06/19/2021 9:47 PM RADIATION DOSE METRICS: Total DLP (mGy-cm): 1157.71 FINDINGS: Limitations: Extensive streak artifact which limits fine detailed evaluation of the brain parenchyma. Brain: No hemorrhage. No edema. 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 Mild diffuse cerebral atrophy. No mass effect. Cerebral ventricles: No ventriculomegaly. Paranasal sinuses: Visualized sinuses are unremarkable. No fluid levels. Mastoid air cells: Trace right mastoid effusion. Left mastoid air cells are well pneumatized. Bones/joints: Unremarkable. No acute fracture. Soft tissues: Unremarkable. CT/CT head wo con* [id number] IMPRESSION: 1. No acute intracranial abnormality. 2. 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
[2021-10-05] MEDS: FUROsemide 10 mg/mL SDV 10mL 100 MG IVP (16:44)
[2021-10-05 17:11] LABS: Add Urine Microscopic? NO; Charge for UA Resulting for Rev
[2021-10-05 17:15] LABS: Bilirubin Urine Neg (Negative); Blood Urine Neg (Negative); Glucose Urine UA Norm (Normal); Ketones Urine Negative (Negative); Leukocyte Esterase Urine Negative (Negative); Nitrate Urine Negative (Negative); Protein Urine Neg (Negative); Urine Appearance Clear (CLEAR); Urine Color Yellow (Yellow); Urobilinogen Urine Norm (Negative); pH Urine 6 (5-7)
[2021-10-05 17:16] LABS: Basophils % 0.8 %; Eosinophils # 0.1 10^3/uL (0.0-0.8); Hematocrit 33.3 % (42.0-52.0); Hemoglobin 8.8 g/dL (11.7-16.6); Lymphocytes # 0.7 10^3/uL (0.8-4.8); Lymphocytes % 12.4 %; Mean Corpuscular HGB Conc 26.4 g/dL (30.0-36.0); Mean Corpuscular Hemoglobin 22.3 pg (28.0-34.0); Mean Corpuscular Volume 84.3 fl (80-94); Monocytes # 0.5 10^3/uL (0.2-0.9); Monocytes % 8.8 %; Neutrophils # 4.03 10^3/uL (1.8-7.7); Neutrophils % 76.8 %; Nucleated Red Blood Cells % 0 %; Platelet Count 244 10^3/cmm (130-400); Red Blood Count 3.95 10^6/uL (4.1-5.3); Red Cell Distribution Width 20.2 % (12.1-15.1); White Blood Count 5.2 10^3/uL (4.0-10.0)
[2021-10-05 17:35] LABS: Alanine Aminotransferase 15 U/L (0-41); Albumin Level 3.9 g/dL (3.5-5.2); Alkaline Phosphatase 304 IU/L (40-130); Aspartate Amino Transferase 18 U/L (0-40); Blood Urea Nitrogen 23 mg/dL (6-20); Calcium 9.5 mg/dL (8.5-10.5); Carbon Dioxide 31 mmol/L (22-29); Chloride 97 mmol/L (98-107); Creatine Phosphokinase 35 U/L (39-308); Globulin 3.6 g/dL (1.3-4.6); Glomerular Filtration Rate 64.4 mL/min (90-130); Glucose 109 mg/dL (65-115); Osmolality Calculated 286 mOsm/kg (285-295); Sodium 136 mmol/L (136-145); Total Bilirubin 1.7 mg/dL (0.15-1.2); Total Protein 7.5 g/dL (6.6-8.7)
[2021-10-05 17:36] LABS: Lactic Sepsis W/Reflex 1.4 mmol/L (0.5-2.2)
[2021-10-05 17:39] LABS: Anion Gap 12.7 (5-19); Potassium 4.7 mmol/L (3.5-5.1)
[2021-10-05 18:23] LABS: Troponin(5th) Baseline 31 ng/L (0-15)
--- NOTE | 2021-10-05 19:03 | P.HP_ITS ---
Providers/Chief Complaint Primary Care Provider: Stewart Rosario MD Chief Complaint: WEAKNESS History of Present Illness Arnol Guzman is a 51 year old male morbidly obese male, has had multiple admissions secondary to COPD exacerbation along with diastolic heart failure exacerbation, on last admission [facility] did not approve his BiPAP because of his noncompliance, we were told that out of 90 days he only used CPAP for about 6 nights, he received acetazolamide on alternate days with Bumex because of contraction alkalosis, he was not accepted by any half-way or assisted living either. Today he is presenting to the ER for worsening of shortness of breath. He is endorsing reproducible left-sided chest discomfort as well, at the time of my evaluation he is on BiPAP, stating that he has been short of breath for last few weeks and this has gotten worse lately, he is denying fever, productive cough, endorsing weight gain, orthopnea and PND. He was evaluated by psychiatrist Dr. Brown when he presented to the ER for symptoms related to his depression, he cleared him to be released from the ER on 09/22. I requested RT to use facemask. ABG revealed compensated pH however hypercapnia and hypoxia evident on the ABG, reproducible chest pain at the time of my evaluation, baseline troponin 31, EKG not consistent with any ischemic or infarctive changes, Review of Systems Const: Reports: chills and body aches Eyes: Denies: change in vision ENMT: Denies: throat pain Card: Reports: chest pain Resp: Reports: dyspnea and non-productive cough GI: Denies: abdominal pain : Denies: flank pain Musc: Denies: neck pain Skin/Breast: Denies: rash Neuro: Denies: headache(s) Psych: Reports: depression and loss of interest Endo: Denies: polyuria Mendel/Lymph: Denies: easy bruising All/Imm: Denies: urticaria Medications/Allergies Home Medications Medication Instructions Recorded Confirmed Last Taken Type atorvastatin 80 mg tablet (Lipitor) 80 mg PO BEDTIME 07/14/19 10/05/21 07/24/21 History montelukast 10 mg tablet 10 mg PO BEDTIME 07/14/19 10/05/21 07/24/21 History (Singulair) omeprazole 40 mg capsule,delayed 40 mg PO QAM 01/12/2610/05/21 07/24/21 History release oxygen-air delivery systems #1 03/11/20 10/05/21 Unknown History albuterol sulfate 90 mcg/actuation 2 puff INHALATION QID PRN 05/19/20 10/05/21 07/25/21 History aerosol inhaler aspirin 81 mg tablet,delayed 81 mg PO QAM 09/13/20 10/05/21 07/24/21 History release mometasone-formoterol HFA 200 2 puff INHALATION BID 11/24/20 10/05/21 07/24/21 History mcg-5 mcg/actuation aerosol inhaler (Dulera) allopurinol 100 mg tablet 100 mg PO QAM 02/16/21 10/05/21 07/24/21 History lisinopril 5 mg tablet 5 mg PO QAM 02/16/21 10/05/21 07/24/21 History sitagliptin 50 mg-metformin 1,000 1 tab PO BID 02/16/21 10/05/21 07/24/21 History mg tablet (Janumet) ferrous sulfate 325 mg (65 mg 325 mg PO BID 06/22/21 10/05/21 07/24/21 History iron) tablet sertraline 50 mg tablet 50 mg PO DAILY 07/13/21 10/05/21 07/24/21 History tamsulosin 0.4 mg capsule 0.4 mg PO DAILY 07/13/21 10/05/21 07/24/21 History ziprasidone HCl 40 mg capsule 40 mg PO DAILY@17 07/13/21 10/05/21 07/24/21 History acetaminophen 325 mg capsule 325 mg PO Q6H PRN #14 cap 07/15/21 10/05/21 Unknown Rx (Tylenol) atenolol 50 mg tablet 50 mg PO QAM #30 tab 09/01/21 10/05/21 Unknown Rx potassium chloride 20 mEq 40 meq PO DAILY #30 tab 09/01/21 10/05/21 Unknown Rx tablet,extended release(part/cryst) (Klor-Con M) bumetanide 1 mg tablet 2 mg PO DAILY #60 tab 09/06/21 10/05/21 Unknown Rx sennosides 8.6 mg-docusate sodium 1 tab PO DAILY #30 tab 09/06/21 10/05/21 Unknown Rx 50 mg tablet (Stool Softener-Laxative) albuterol sulfate 2.5 mg INHALATION Q6H PRN 10/05/21 10/05/21 Unknown History insulin detemir U-100 100 unit/mL 6 unit SUBCUT DAILY 10/05/21 10/05/21 Unknown History (3 mL) subcutaneous pen (Levemir FlexTouch U-100 Insulin) Allergies Allergy/AdvReac Type Severity Reaction Status Date / Time Penicillins Allergy ALGY-Hives Verified 09/22/21 13:25 diltiazem [From Cardizem] AdvReac ADR/ALGY-Pa Verified 09/22/21 13:25 lpitations PFSH Acute PFSH: Medical History Acute respiratory failure with hypoxia and hypercapnia Anemia -has chronic iron deficiency anemia, baseline Hg is around 9-10 Anxiety Chest pain Chest pain CHF (congestive heart failure) -Echo (07/2019): EF=68%, normal diastolic function, no RWMA -on oral lasix -no acute exacerbation currently Chronic respiratory failure Decubitus ulcer limited to breakdown of skin (stage 2) Depression Diabetes -NIDDM type II -A1c (11/2019): 8.2 -Accuchecks, ISS, hypoglycemia precautions -consistent carb diet -anticipate hyperglycemia with steroid use Gout Hyperlipemia, mixed Hypertension -VSS; continue to monitor -continue oral antihypertensives Hypertension Major depressive disorder, recurrent, moderate Morbid (severe) obesity due to excess calories Morbid obesity OPAL (obstructive sleep apnea) -in the process of getting CPAP set up Pneumonia Psychiatric care Transient cerebral ischemia Surgical History History of adenoidectomy History of hernia repair History of tonsillectomy History of umbilical hernia repair Family History Mother Hypertension CAD (coronary artery disease) Stroke Social History Smoking and tobacco status: never smoked Second hand smoke exposure: Yes Alcohol intake: never Adopted: No Caregiver/support person: No Lives independently: Yes Household members: family and friend(s) Housing: Manufactured/Mobile home Marital status: Single Number of children: 0 Number of grandchildren: 0 Highest education level completed: 8th Grade service: No Current occupational status: disabled Pets and animals: No History of recent travel: No Leisure activites: other Leisure activities details: play card games Sexually active: No Current gender identity: Male Yolanda/Anglican: Other Special yolanda needs: No Agree to transfusion: Yes Financial difficulty paying for basics: Hard Vitals/I&O/Wt Last Vital Signs Pulse 71 10/05/21 18:44 Resp 16 10/05/21 18:44 BP 128/104 10/05/21 18:44 Pulse Ox 98 10/05/21 18:44 Weight last 48 hrs Weight 172.365 kg Physical Exam Narrative: Morbidly obese male Currently on BiPAP Awake and alert Able to state above-mentioned HPI Did not appreciate asterixis Nonfocal neuro exam Assisted bilateral breath sounds Anasarca Pitting edema of legs Scrotal edema Abdominal pannus No active signs of abdominal wall cellulitis Urinary Catheter Management: Shaw: Cath Placed During This Visit: yes Reason for Continuing Indwelling Catheter: Accurate Measurement of Urinary Output in Critically Ill Patients Urinary Catheter Date of Insertion: 10/05/21 Data : 10/05/21 17:03 10/05/21 17:03 A&P Assessment and plan (1) Depression: Status: Acute (2) CHF (congestive heart failure): Status: Acute (3) Chronic anemia: Status: Acute Plan Diastolic congestive heart failure acute exacerbation Secondary to noncompliance He has not been using his CPAP, we were not able to arrange BiPAP for him on last visit Morbidly obese Anasarca Start diuretics Place Shaw catheter Tomorrow echo urine output Hemoglobin is above 8 Continue BiPAP Requested RT for the facemask IV diuretics Patient is full code Cardiac diet Consistent carb Sliding scale Check hemoglobin A1c We will touch base with onsite case manager to see if he can arrange BiPAP for him to avoid readmissions Attestations Medical Necessity Statement*: More than 2 midnights anticipated Time Spent in Patient Care: 40mins Coding Level of Care Code Acute Dry Kiln Operator Helper for Zac Pickett Diagnoses Depression F32.A CHF (congestive heart failure) I50.9 Chronic anemia D64.9
[2021-10-05 21:00] LABS: Troponin 5 2HR 32.43 ng/L (0-15); Troponin 5 2HR Delta 1.43 ABS# (0-10)
[2021-10-05 21:22] LABS: Glucose Point of Care 123 mg/dL (70-110)
[2021-10-05] MEDS: enoxaparin 30 mg/0.3 mL Syringe SUBCUT (21:31)
[2021-10-05] MEDS: montelukast sodium 10 mg Tablet PO (21:31)
[2021-10-05 23:42] LABS: Troponin 5 6HR 31.65 ng/L (0-15)
[2021-10-05 23:44] LABS: Troponin 5 6HR Delta 0.65 ng/L (0-12)
--- NOTE | 2021-10-05 23:50 | ECG_ITS ---
[facility] Test Date: 2021-10-05 Pat Name: Arnol Guzman Department: Room: 107 Gender: Male Animal Assistant: : 1970 Requested By: Fantasma Olson Order Number: [id number] Bernardino MD: Tay Mireles M.D. Measurements Intervals [place] Rate: 61 P: 69 [place]: 139 QRS: 108 QRSD: 98 T: 92 QT: 445 QTc: 451 Interpretive Statements SINUS RHYTHM INDETERMINATE AXIS INCOMPLETE RIGHT BUNDLE BRANCH BLOCK [90+ ms QRS DURATION, TERMINAL R IN V1/V2, 40+ ms S IN I/aVL/V4/V5/V6] Compared to ECG 10/05/2021 16:35:39 Indeterminate axis now present Right-axis deviation no longer present Electronically Signed On 10-07-2021 13:46:21 CDT by Tay Mireles M.D. [id number]
[2021-10-06] VITALS (13 sets, daily range): BP systolic 110–144; BP diastolic 47–87; PULSE 59–86; RESP 7–85; TEMP 36.2–37; O2SAT 80–97
[2021-10-06] MEDS: acetaminophen 325 mg Tablet PO (03:18)
[2021-10-06 03:28] LABS: ABG PCO2 55.6 mmHg (35-45); ABG PH Result 7.39 (7.35-7.45); Arterial Blood Gas Hematocrit 26.2 % (42-52); Base Excess ABG 7.4 mmol/L (-2.0-2.0); Blood Gas Allen Test Pos; Blood Gas Sample Site Radial, right; Blood Gas Sample Type Arterial; HCO3 ABG 33.5 mmol/L (22-26); Oxygen Device NC; PO2 ABG 65.5 mmHg (80.0-100.0)
[2021-10-06 04:18] LABS: Basophils % 0.5 %; Eosinophils # 0.1 10^3/uL (0.0-0.8); Eosinophils % 1.4 %; Hematocrit 32.4 % (42.0-52.0); Hemoglobin 8.3 g/dL (11.7-16.6); Lymphocytes # 0.8 10^3/uL (0.8-4.8); Mean Corpuscular HGB Conc 25.6 g/dL (30.0-36.0); Mean Corpuscular Hemoglobin 21.8 pg (28.0-34.0); Monocytes # 0.4 10^3/uL (0.2-0.9); Monocytes % 9.7 %; Neutrophils # 3.11 10^3/uL (1.8-7.7); Neutrophils % 69.9 %; Nucleated Red Blood Cells % 0 %; Platelet Count 220 10^3/cmm (130-400); Red Blood Count 3.81 10^6/uL (4.1-5.3); Red Cell Distribution Width 20.4 % (12.1-15.1); White Blood Count 4.4 10^3/uL (4.0-10.0)
[2021-10-06 04:37] LABS: Alanine Aminotransferase 11 U/L (0-41); Albumin Level 3.8 g/dL (3.5-5.2); Alkaline Phosphatase 296 IU/L (40-130); Aspartate Amino Transferase 12 U/L (0-40); Blood Urea Nitrogen 23 mg/dL (6-20); Calcium 9.1 mg/dL (8.5-10.5); Carbon Dioxide 33 mmol/L (22-29); Chloride 98 mmol/L (98-107); Globulin 3.5 g/dL (1.3-4.6); Glomerular Filtration Rate 71.1 mL/min (90-130); Glucose 103 mg/dL (65-115); Osmolality Calculated 292 mOsm/kg (285-295); Sodium 139 mmol/L (136-145); Total Protein 7.3 g/dL (6.6-8.7)
[2021-10-06] MEDS: aspirin 81 mg EC Tablet PO (05:37)
[2021-10-06] MEDS: lisinopril 5 mg Tablet PO (05:37)
[2021-10-06] MEDS: allopurinol 100 mg Tablet PO (05:37)
[2021-10-06] MEDS: pantoprazole DR 40 mg Tablet PO (05:38)
[2021-10-06] MEDS: atenolol 50 mg Tablet PO (05:39)
[2021-10-06] MEDS: FUROsemide 10 mg/mL SDV 10mL 80 MG IVP ×2 (05:42→18:51)
[2021-10-06 06:33] LABS: Glucose Point of Care 108 mg/dL (70-110)
[2021-10-06] MEDS: sennosides-docusate Tablet 1 TAB PO (09:34)
[2021-10-06] MEDS: sertraline 50 mg Tablet PO (09:34)
[2021-10-06] MEDS: potassium chloride ER 20 mEq Tablet 40 MEQ PO (09:34)
[2021-10-06] MEDS: tamsulosin 0.4 mg Capsule PO (09:34)
[2021-10-06] MEDS: enoxaparin 30 mg/0.3 mL Syringe SUBCUT ×2 (09:34→20:45)
[2021-10-06] MEDS: ferrous sulfate EC 325 mg Tablet PO ×2 (09:34→17:15)
--- NOTE | 2021-10-06 10:49 | PC.CHAP ---
Pastoral Care Encounter/Spiritual Assessment Type of Contact [] Declined waterproofing mixer visit [] Patient/Family/Request visit [] Outpatient visit [] Follow-up visit [] Physician referral [] Code/Alert [x] Routine visit [] Staff referral [] Actively dying [] Patient sleeping [] Family support [] [] Out of room [] Palliative care [] [x] Receiving care in room [] Pre-surgical visit [] Trauma [x] Long length of stay [] ICU visit [] Other: Relational/Emotional Strength [] Patient feels connected with others/family/visitors/staff [x] Distress [] Loneliness/isolation [] Abandonment Spirituality of Patient [x] Person of Yolanda [] Attends Adventist of their Yolanda [x] Believes in Prayer [] Reads Bible or Adventism materials [] There are Spiritual issues to be addressed Software Sales Representative Interventions [x] Prayer [x] Active listening [x] Non-anxious presence [x] Spiritual/emotional support [x] Crisis/trauma care [x] Spiritual counseling [] Bereavement support [] Provided bereavement packet [] Provided Bible/devotional materials [] Provided toy/stuffed animal, coloring book to patient or family member [] Provided Communion [] Anointing/[place] [] Salvation [x] Completed spiritual assessment [] Other: Impact on Illness or Injury [] Angry [xx] Fearful [] Anxious [] Often cries [] Exhaustion [] Unable to work [] Unable to attend evangelical [] Unable to walk/stand [] Unable to read [] Unable to drive [] Unable to eat/drink [] Unable to sleep [] Unable to be with family [] Patient intubated [] Other: Summary severial heathn issues unhappy about going into rehab Time spent with patient 10 mins
--- NOTE | 2021-10-06 10:53 | P.PN_ITS ---
Subjective Subjective: Patient is stating that he has BiPAP machine at home which she has not been using more than 4 hours, I am not sure about the compliance however he stating that he is feeling better today He is awake and alert and oriented booking manager updated Vitals/I&O/Wt Last Vital Signs Temp 97.9 F 10/06/21 07:21 Pulse 60 10/06/21 08:56 Resp 20 H 10/06/21 08:56 BP 130/56 10/06/21 07:21 Pulse Ox 97 10/06/21 08:56 10/05/21 10/06/21 10/06/21 22:59 06:59 14:59 Intake Total 0 / 0 120 / 120 354 / 354 Output Total 550 / 550 Balance 0 / 0 -430 / -430 354 / 354 Weight last 48 hrs Weight 172.365 kg Physical Exam Narrative: He is laying supine Denying orthopnea PND currently on 4 L nasal cannula Morbidly obese Anasarca CHF exacerbation No audible stridor or wheezing Visceral obesity Distended abdomen nontender EOMI, PERRLA Nonfocal neuro exam Urinary Catheter Management: Shaw: Cath Placed During This Visit: yes Reason for Continuing Indwelling Catheter: Accurate Measurement of Urinary Output in Critically Ill Patients Urinary Catheter Date of Insertion: 10/05/21 Data : 10/06/21 03:44 10/06/21 03:44 A&P Assessment and plan (1) Chronic anemia: Status: Acute (2) Depression: Status: Acute (3) CHF (congestive heart failure): Status: Acute Plan Diastolic congestive heart exacerbation Pulmonary edema most likely is causing worsening of shortness of breath His COPD seems to be around baseline, no worsening of baseline hypercapnia, pH is compensated, currently doing well on 4 L nasal cannula I am planning to keep him here until tomorrow, continue IV Lasix, plan to discharge him home, caser shoe parts updated to touch base with BiPAP company to see if he has been compliant BiPAP at nighttime Consistent carb diet Sliding scale Full code DVT prophylaxis Lovenox 30 mg every 12 hours secondary to high BMI Attestations Medical Necessity Statement*: Continue hospitalization Time Spent in Patient Care: 20min Coding Level of Care Code Acute Casino Floor Runner for Chg Fwd Diagnoses Chronic anemia D64.9 Depression F32.A CHF (congestive heart failure) I50.9
[2021-10-06 10:58] LABS: Glucose Point of Care 159 mg/dL (70-110)
[2021-10-06] MEDS: insulin lispro 100 unit/1 mL SUBCUT (12:32)
[2021-10-06 17:02] LABS: Glucose Point of Care 134 mg/dL (70-110)
[2021-10-06] MEDS: ziprasidone hcl 40 mg Capsule PO (17:15)
[2021-10-06] MEDS: montelukast sodium 10 mg Tablet PO (20:45)
--- NOTE | 2021-10-06 22:52 | PC.NURSE ---
Pt lying in bed resting and talking to staff. Pt resp even and non-labored no distress or sob noted. Pt had one large loose incontinent stool. Pt changed cleaned and dried. Skin wnl. Pt had no c/o pain or discomfort at the present time. no needs voiced further. Pt transferring to med surg room 263. Report called to ALFIE Connors.
[2021-10-07] VITALS (11 sets, daily range): BP systolic 101–129; BP diastolic 59–71; PULSE 63–71; RESP 15–22; TEMP 36.6–37.8; O2SAT 92–95
[2021-10-07] MEDS: atenolol 50 mg Tablet PO (06:09)
[2021-10-07] MEDS: pantoprazole DR 40 mg Tablet PO (06:09)
[2021-10-07] MEDS: allopurinol 100 mg Tablet PO (06:10)
[2021-10-07] MEDS: aspirin 81 mg EC Tablet PO (06:10)
[2021-10-07] MEDS: FUROsemide 10 mg/mL SDV 10mL 80 MG IVP ×2 (06:10→17:54)
[2021-10-07] MEDS: lisinopril 5 mg Tablet PO (06:10)
[2021-10-07 06:21] LABS: Anion Gap 13.9 (5-19); Blood Urea Nitrogen 28 mg/dL (6-20); Calcium 9.5 mg/dL (8.5-10.5); Carbon Dioxide 33 mmol/L (22-29); Chloride 101 mmol/L (98-107); Glomerular Filtration Rate 49.7 mL/min (90-130); Glucose 110 mg/dL (65-115); Osmolality Calculated 302 mOsm/kg (285-295); Potassium 4.9 mmol/L (3.5-5.1); Sodium 143 mmol/L (136-145)
[2021-10-07 07:25] LABS: Glucose Point of Care 119 mg/dL (70-110)
[2021-10-07] MEDS: enoxaparin 30 mg/0.3 mL Syringe SUBCUT (08:38)
[2021-10-07] MEDS: tamsulosin 0.4 mg Capsule PO (08:38)
[2021-10-07] MEDS: ferrous sulfate EC 325 mg Tablet PO ×2 (08:38→17:54)
[2021-10-07] MEDS: sertraline 50 mg Tablet PO (08:38)
[2021-10-07] MEDS: sennosides-docusate Tablet 1 TAB PO (08:38)
--- NOTE | 2021-10-07 13:16 | P.PN_ITS ---
Subjective Subjective: Patient is doing fine, respiratory status improved TEDDY noted Plan to discharge him tomorrow if creatinine trending down, patient is comfortable with this plan for now Vitals/I&O/Wt Last Vital Signs Temp 98.1 F 10/07/21 11:00 Pulse 66 10/07/21 11:00 Resp 18 10/07/21 11:00 BP 118/71 10/07/21 11:00 Pulse Ox 95 10/07/21 11:00 10/06/21 10/07/21 10/07/21 22:59 06:59 14:59 Intake Total 286 / 994 300 / 1294 240 / 240 Output Total 500 / 900 701 / 1601 Balance -214 / 94 -401 / -307 240 / 240 Weight last 48 hrs Weight 172.365 kg Physical Exam Narrative: Patient is laying flat No orthopnea PND Intertrigo noted Asked nurse for antifungals topical S1, S2 Morbidly obese Signs of CHF No signs of peritonitis Nonfocal neuro exam Saturating well on 5 L nasal cannula Urinary Catheter Management: Shaw: Cath Placed During This Visit: yes Reason for Continuing Indwelling Catheter: Accurate Measurement of Urinary Output in Critically Ill Patients Urinary Catheter Date of Insertion: 10/05/21 Data : 10/06/21 03:44 10/07/21 05:10 A&P Assessment and plan (1) Chronic anemia: Status: Acute (2) CHF (congestive heart failure): Status: Acute Plan Diastolic CHF exacerbation secondary to noncompliance TEDDY cardiorenal Increase diuretics today Plan to discharge him tomorrow if creatinine trending down Orthopnea PND no severe distress improved His symptoms are related to noncompliance, he does have CPAP at home, we did follow-up with his company, he does not have any BiPAP machine, he does have CPAP which she has not been using Full code Cardiac diet We will check BMP tomorrow morning Extra dose of Lasix today Attestations Medical Necessity Statement*: Discharge tomorrow Time Spent in Patient Care: 20mins Coding Level of Care 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
[2021-10-07] MEDS: bumetanide 0.25 mg/mL SDV 4 mL 1 MG IVP (15:28)
[2021-10-07 17:34] LABS: Glucose Point of Care 125 mg/dL (70-110)
[2021-10-07 17:45] LABS: Glucose Point of Care 131 mg/dL (70-110)
[2021-10-07 17:45] LABS: Glucose Point of Care 101 mg/dL (70-110)
[2021-10-07] MEDS: nystatin powder 15 gm Btl 1 APPLIC TOPICAL (17:54)
[2021-10-07] MEDS: ziprasidone hcl 40 mg Capsule PO (17:54)
[2021-10-07 20:33] LABS: Glucose Point of Care 135 mg/dL (70-110)
[2021-10-07] MEDS: montelukast sodium 10 mg Tablet PO (21:21)
[2021-10-08] VITALS (10 sets, daily range): BP systolic 105–156; BP diastolic 55–69; PULSE 66–78; RESP 16–20; TEMP 36.7–37.2; O2SAT 90–95
[2021-10-08 01:26] LABS: Glucose Point of Care 122 mg/dL (70-110)
[2021-10-08 05:24] LABS: Anion Gap 12.6 (5-19); Blood Urea Nitrogen 32 mg/dL (6-20); Calcium 9.6 mg/dL (8.5-10.5); Carbon Dioxide 31 mmol/L (22-29); Chloride 97 mmol/L (98-107); Glomerular Filtration Rate 46.2 mL/min (90-130); Glucose 130 mg/dL (65-115); Osmolality Calculated 291 mOsm/kg (285-295); Potassium 4.6 mmol/L (3.5-5.1); Sodium 136 mmol/L (136-145)
[2021-10-08] MEDS: pantoprazole DR 40 mg Tablet PO (05:34)
[2021-10-08] MEDS: aspirin 81 mg EC Tablet PO (05:34)
[2021-10-08] MEDS: allopurinol 100 mg Tablet PO (05:35)
[2021-10-08] MEDS: atenolol 50 mg Tablet PO (05:35)
[2021-10-08 06:28] LABS: Glucose Point of Care 137 mg/dL (70-110)
[2021-10-08] MEDS: tamsulosin 0.4 mg Capsule PO (09:32)
[2021-10-08] MEDS: ferrous sulfate EC 325 mg Tablet PO ×2 (09:32→17:24)
[2021-10-08] MEDS: sennosides-docusate Tablet 1 TAB PO (09:32)
[2021-10-08] MEDS: heparin 5,000 unit/mL INJ 1 mL 5000 UNIT SUBCUT ×2 (10:51→20:27)
[2021-10-08] MEDS: nystatin powder 15 gm Btl 1 APPLIC TOPICAL ×2 (10:52→17:26)
[2021-10-08 11:26] LABS: Glucose Point of Care 144 mg/dL (70-110)
--- NOTE | 2021-10-08 11:41 | P.PN_ITS ---
Subjective Subjective: Patient was complaining of headache He was on 5 L Laying flat Requested his nurse to flush his Shaw catheter. I noticed blood in the catheter and it was not secured to his leg Hold Lasix today Worsening creatinine Vitals/I&O/Wt Last Vital Signs Temp 98.6 F 10/08/21 11:21 Pulse 72 10/08/21 11:21 Resp 18 10/08/21 11:21 BP 112/59 10/08/21 11:21 Pulse Ox 90 10/08/21 11:21 10/07/21 10/08/21 10/08/21 22:59 06:59 14:59 Intake Total 440 / 880 980 / 1860 Output Total 900 / 900 1100 / 2000 Balance -460 / -20 -120 / -140 Physical Exam Narrative: Patient laying flat No orthopnea PND Awake and alert Drowsy with short attention span complaining of headache I do not appreciate new focal deficits Distended abdomen, intra-articular Edema of legs Distended abdomen nontender S1, S2 No audible stridor or wheezing Cushingoid appearance Urinary Catheter Management: Shaw: Cath Placed During This Visit: yes Reason for Continuing Indwelling Catheter: Other Urinary Catheter Date of Insertion: 10/05/21 Data : 10/06/21 03:44 10/08/21 04:40 A&P Assessment and plan (1) Chronic anemia: Status: Acute (2) Depression: Status: Acute (3) CHF (congestive heart failure): Status: Acute (4) TEDDY (acute kidney injury): Status: Acute Plan TEDDY related to cardiorenal etiology Shaw catheter draining bloody urine Asked nurse to flush his Shaw catheter Holding lisinopril, hold Lasix for today Short attention span, no focal neuro exam: Put him back on BiPAP for today Headache, head CT showed old infarct changes Diastolic CHF exacerbation: Holding diuretics for today monitor kidney function off diuretics Hold heparin because of hematuria Patient is full code We will plan to discharge home once kidney function starts showing improvement Consistent carb diet, sliding scale We will put him on fluid restriction Attestations Medical Necessity Statement*: Continue medical management because of TEDDY Time Spent in Patient Care: 20mins Coding Level of Care Code Acute Cosmetic Dentist for [facility] Fwd Diagnoses Chronic anemia D64.9 Depression F32.A CHF (congestive heart failure) I50.9 TEDDY (acute kidney injury) N17.9
--- NOTE | 2021-10-08 12:44 | PC.NURSE ---
Daniela Kim RN and ALFIE Nathan went into room 263, Mr. Arnol Guzman at 1052 and cleaned periarea and applied nystatin powder through groin and underbelly. Silva catheter was not attached to the patients leg so Daniela Kim RN applied STATLOCK to the right inner thigh to protect catheter positioning. Both Daniela Kim RN and ALFIE Nathan irrigated the silva catheter with 150 ml of fluid and aspirated around 120 ml out. No blood clots present. Nurses irrigated because catheter bag fluid was bloody. Patient stated he stepped on his Silva on 10/07/2021 which is why pt believes there was red appearance to Silva fluid.
[2021-10-08] MEDS: insulin lispro 100 unit/1 mL SUBCUT (13:14)
[2021-10-08] MEDS: ziprasidone hcl 40 mg Capsule PO (16:57)
[2021-10-08 17:13] LABS: Glucose Point of Care 128 mg/dL (70-110)
--- NOTE | 2021-10-08 17:21 | PC.NURSE ---
Securely messaged Dr. Araujo with [employer]. Physician has okayed the changed time for scheduled Heparin to 1930.
[2021-10-08] MEDS: montelukast sodium 10 mg Tablet PO (20:26)
[2021-10-09] VITALS (10 sets, daily range): BP systolic 102–154; BP diastolic 59–70; PULSE 62–90; RESP 16–22; TEMP 36.6–37.2; O2SAT 89–95
[2021-10-09] MEDS: acetaminophen 325 mg Tablet PO (04:43)
[2021-10-09] MEDS: atenolol 50 mg Tablet PO (05:51)
[2021-10-09] MEDS: allopurinol 100 mg Tablet PO (05:51)
[2021-10-09] MEDS: aspirin 81 mg EC Tablet PO (05:51)
[2021-10-09 06:27] LABS: Glucose Point of Care 122 mg/dL (70-110)
[2021-10-09 06:28] LABS: Glucose Point of Care 142 mg/dL (70-110)
[2021-10-09 06:38] LABS: Basophils % 0.8 %; Eosinophils % 0.8 %; Hematocrit 33.2 % (42.0-52.0); Hemoglobin 8.4 g/dL (11.7-16.6); Lymphocytes # 0.6 10^3/uL (0.8-4.8); Lymphocytes % 11.9 %; Mean Corpuscular HGB Conc 25.3 g/dL (30.0-36.0); Mean Corpuscular Hemoglobin 21.9 pg (28.0-34.0); Mean Corpuscular Volume 86.5 fl (80-94); Mean Platelet Volume 9.6 fL (7.4-10.4); Monocytes # 0.5 10^3/uL (0.2-0.9); Monocytes % 8.7 %; Neutrophils # 4.13 10^3/uL (1.8-7.7); Neutrophils % 77.6 %; Nucleated Red Blood Cells % 0 %; Platelet Count 221 10^3/cmm (130-400); Red Blood Count 3.84 10^6/uL (4.1-5.3); Red Cell Distribution Width 20.1 % (12.1-15.1); White Blood Count 5.3 10^3/uL (4.0-10.0)
[2021-10-09 07:10] LABS: Anion Gap 13.8 (5-19); Blood Urea Nitrogen 33 mg/dL (6-20); Calcium 9.5 mg/dL (8.5-10.5); Carbon Dioxide 31 mmol/L (22-29); Chloride 100 mmol/L (98-107); Glomerular Filtration Rate 46.2 mL/min (90-130); Glucose 137 mg/dL (65-115); Osmolality Calculated 299 mOsm/kg (285-295); Potassium 4.8 mmol/L (3.5-5.1); Sodium 140 mmol/L (136-145)
[2021-10-09] MEDS: insulin lispro 100 unit/1 mL SUBCUT ×2 (07:49→12:29)
[2021-10-09] MEDS: ferrous sulfate EC 325 mg Tablet PO ×2 (10:02→19:12)
[2021-10-09] MEDS: tamsulosin 0.4 mg Capsule PO (10:02)
[2021-10-09] MEDS: sennosides-docusate Tablet 1 TAB PO (10:02)
[2021-10-09] MEDS: nystatin powder 15 gm Btl 1 APPLIC TOPICAL ×2 (10:03→19:13)
[2021-10-09] MEDS: pantoprazole DR 40 mg Tablet PO ×2 (10:03→19:12)
[2021-10-09 11:20] LABS: Glucose Point of Care 169 mg/dL (70-110)
--- NOTE | 2021-10-09 12:51 | P.PN_ITS ---
Subjective Subjective: Patient complains of dizziness, will check orthostatics Concentrated urine in the Shaw catheter I would avoid Lasix today as well We will give him gentle hydration, Vitals/I&O/Wt Last Vital Signs Temp 98.0 F 10/09/21 08:00 Pulse 68 10/09/21 08:33 Resp 20 H 10/09/21 08:33 BP 116/63 10/09/21 08:00 Pulse Ox 91 10/09/21 08:33 10/08/21 10/09/21 10/09/21 22:59 06:59 14:59 Intake Total 720 / 720 360 / 360 Output Total 325 / 325 625 / 950 Balance 395 / 395 -625 / -230 360 / 360 Physical Exam Narrative: Patient is awake and alert Complaining of dizziness on ambulation No significant difference in terms of volume status Concentrated urine in the bag Nonfocal neuro exam Currently on 4 L nasal cannula No active labored breathing Abdomen distended, intertrigo Urinary Catheter Management: Shaw: Cath Placed During This Visit: yes Reason for Continuing Indwelling Catheter: Acute Urinary Retention or Obstruction Urinary Catheter Date of Insertion: 10/05/21 Data : 10/09/21 06:05 10/09/21 06:05 Micro: Microbiology 10/09/21 05:24 Occult Blood (FIT) - Final Stool Routine Collection A&P Assessment and plan (1) TEDDY (acute kidney injury): Status: Acute (2) Chronic anemia: Status: Acute (3) Depression: Status: Acute (4) CHF (congestive heart failure): Status: Acute (5) Dizziness: Status: Acute Plan Acute diastolic heart failure Lasix on hold Overdiuresis Patient clinically does not look fluid overloaded Concentrated urine We will give gentle hydration today Monitor creatinine, TEDDY related to cardiorenal syndrome with further exacerbation from diuresis, will do gentle hydration Currently doing well on 5 L nasal cannula No exacerbation of COPD Patient is noncompliant with his CPAP Plan to discharge him once his creatinine trends down For his dizziness check orthostatics Gentle fluid hydration Attestations Medical Necessity Statement*: Discharge once creatinine trends down Time Spent in Patient Care: 20min Coding Level of Care Code Acute 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
[2021-10-09] MEDS: sodium chloride 0.9% 500 ML IV (13:50)
[2021-10-09 16:20] LABS: Glucose Point of Care 263 mg/dL (70-110)
--- NOTE | 2021-10-09 18:10 | PC.NURSE ---
Securely messaged Dr. Araujo via [employer] regarding patient's sister and next of kin, Maile wishing to speak with him.
[2021-10-09] MEDS: ziprasidone hcl 40 mg Capsule PO (19:12)
[2021-10-09] MEDS: montelukast sodium 10 mg Tablet PO (20:01)
[2021-10-09 21:18] LABS: Glucose Point of Care 157 mg/dL (70-110)
[2021-10-10] VITALS: BP 131/62; PULSE 71; RESP 16; TEMP 36.8; O2SAT 94
[2021-10-10 00:16] LABS: Glucose Point of Care 157 mg/dL (70-110)
[2021-10-10 03:10] VITALS: PULSE 65; PULSE 89; RESP 15; RESP 17; O2SAT 94
[2021-10-10 04:28] LABS: Anion Gap 14.8 (5-19); Blood Urea Nitrogen 32 mg/dL (6-20); Calcium 9.7 mg/dL (8.5-10.5); Carbon Dioxide 31 mmol/L (22-29); Chloride 99 mmol/L (98-107); Glomerular Filtration Rate 49.7 mL/min (90-130); Glucose 132 mg/dL (65-115); Osmolality Calculated 299 mOsm/kg (285-295); Potassium 4.8 mmol/L (3.5-5.1); Sodium 140 mmol/L (136-145)
[2021-10-10] MEDS: aspirin 81 mg EC Tablet PO (05:36)
[2021-10-10] MEDS: atenolol 50 mg Tablet PO (05:36)
[2021-10-10] MEDS: allopurinol 100 mg Tablet PO (05:36)
[2021-10-10 07:18] VITALS: BP 143/64; PULSE 59; RESP 16
[2021-10-10 08:42] VITALS: PULSE 78; RESP 16; O2SAT 90
[2021-10-10] MEDS: pantoprazole DR 40 mg Tablet PO (08:43)
[2021-10-10] MEDS: ferrous sulfate EC 325 mg Tablet PO (08:43)
[2021-10-10] MEDS: sertraline 50 mg Tablet PO (08:43)
[2021-10-10] MEDS: sennosides-docusate Tablet 1 TAB PO (08:43)
[2021-10-10] MEDS: meclizine 25 mg tablet PO ×2 (08:57→14:48)
[2021-10-10] MEDS: nystatin powder 15 gm Btl 1 APPLIC TOPICAL (08:59)
[2021-10-10 09:47] LABS: Vitamin B12 628 pg/mL (232-1245)
--- NOTE | 2021-10-10 10:35 | P.DS_ITS ---
Discharge Providers Date of Admission: 10/05/21 18:05 Date of Discharge: October 10, 2021 Attending Provider at Admission: Lester Araujo MD Attending Provider at Discharge: Lester Araujo MD Primary Care Provider: Stewart Rosario MD Diagnoses at Discharge Discharge Diagnosis (1) TEDDY (acute kidney injury): Status: Acute (2) Chronic anemia: Status: Acute (3) Depression: Status: Acute (4) CHF (congestive heart failure): Status: Acute (5) Dizziness: Status: Acute Reason for Visit Reason for Visit: WEAKNESS Hospital Course Hospital Course 51-year male who has had recurrent admission in the past secondary to fluid overload and respite distress presented to the hospital for chief complaint of orthopnea PND and shortness of breath. Patient was diagnosed with exacerbation of diastolic congestive heart failure he was diuresed aggressively initially which caused worsening of his creatinine. Diuretics were held, he was given gentle fluid hydration which showed downtrend of creatinine, patient clinically was looking dry, his urine was concentrated, dark orange-yellow color. He was complaining of dizziness on ambulation, with change of head position he has been experiencing symptoms, added meclizine, requested PT evaluation. I have requested patient to hold off on his diuretics for next 3 days, check another BMP and follow-up with his PCP. Unfortunately his insurance would not cover for his BiPAP. He has been noncompliant with his CPAP pretty continuously. I have spoken to his sister who is aware of active issues. Physical Exam Narrative: Patient is awake and alert Complaining of dizziness on ambulation No significant difference in terms of volume status Concentrated urine in the bag Nonfocal neuro exam Currently on 4 L nasal cannula No active labored breathing Abdomen distended, intertrigo Urinary Catheter Management: Shaw: Cath Placed During This Visit: yes Reason for Continuing Indwelling Catheter: Acute Urinary Retention or Obstruction Urinary Catheter Date of Insertion: 10/05/21 Discharge Data Studies Completed and Pending Completed Studies During Hospitalization Category Date Time Status CT head wo con* [id number] Stat Cat Scan 10/05/21 16:13 Completed XR chest 1V portable [id number] Stat Exams 10/05/21 16:10 Completed Radiology Impressions Chest X-Ray 10/05/21 16:10 IMPRESSION: 1. No acute cardiopulmonary finding. Head CT 10/05/21 16:13 IMPRESSION: 1. No acute intracranial abnormality. 2. 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 Laboratory Results WBC 5.3 10^3/uL (4.0-10.0) 10/09/21 06:05 RBC 3.84 10^6/uL (4.1-5.3) L 10/09/21 06:05 Hgb 8.4 g/dL (11.7-16.6) L 10/09/21 06:05 Hct 33.2 % (42.0-52.0) L 10/09/21 06:05 MCV 86.5 fl (80-94) 10/09/21 06:05 MCH 21.9 pg (28.0-34.0) L 10/09/21 06:05 MCHC 25.3 g/dL (30.0-36.0) L 10/09/21 06:05 RDW 20.1 % (12.1-15.1) H 10/09/21 06:05 Plt Count 221 10^3/cmm (130-400) 10/09/21 06:05 MPV 9.6 fL (7.4-10.4) 10/09/21 06:05 Neut % (Auto) 77.6 % 10/09/21 06:05 Lymph % (Auto) 11.9 % 10/09/21 06:05 [place] % (Auto) 8.7 % 10/09/21 06:05 Eos % (Auto) 0.8 % 10/09/21 06:05 Baso % (Auto) 0.8 % 10/09/21 06:05 Neut # (Auto) 4.13 10^3/uL (1.8-7.7) 10/09/21 06:05 Lymph # (Auto) 0.6 10^3/uL (0.8-4.8) L 10/09/21 06:05 [place] # (Auto) 0.5 10^3/uL (0.2-0.9) 10/09/21 06:05 Eos # (Auto) 0.0 10^3/uL (0.0-0.8) 10/09/21 06:05 Baso # (Auto) 0.0 10^3/uL (0.0-0.1) 10/09/21 06:05 Nucleated RBC % (auto) 0 % 10/09/21 06:05 Nucleated RBCs # 0.0 /100WBC 10/09/21 06:05 Specimen Type Arterial 10/06/21 03:16 Sample Site Radial, right 10/06/21 03:16 ABG pH 7.39 (7.35-7.45) 10/06/21 03:16 ABG pCO2 55.6 mmHg (35-45) H 10/06/21 03:16 ABG pO2 65.5 mmHg (80.0-100.0) L 10/06/21 03:16 ABG HCO3 33.5 mmol/L (22-26) H 10/06/21 03:16 ABG O2 Saturation 92.6 10/05/21 16:02 ABG Base Excess 7.4 mmol/L (-2.0-2.0) H 10/06/21 03:16 Luis Test Pos 10/06/21 03:16 A-a O2 Gradient 18.3 mmHg (5-10) H 10/05/21 16:02 Hematocrit 26.2 % (42-52) L 10/06/21 03:16 Hgb O2 Saturation 90.3 % (95-100) L 10/05/21 16:02 Carboxyhemoglobin 1.7 %THgb (0.4-20.1) 10/05/21 16:02 Methemoglobin 0.8 % (0.4-1.5) 10/05/21 16:02 Total Hemoglobin 8.8 g/dL (14-18) L 10/05/21 16:02 Sodium 141.0 mmol/L (131-143) 10/05/21 16:02 Potassium 4.2 mmol/L (3.5-5.0) 10/05/21 16:02 Glucose 103.0 mg/dL (70-115) 10/05/21 16:02 Ionized Calcium 1.2 mmol/L (1.1-1.4) 10/05/21 16:02 O2 Delivery Device Nc 10/06/21 03:16 O2 Liters/Min 3.0 % 10/06/21 03:16 FiO2 40.0 % 10/05/21 16:02 Manufacturing Laborer ID Buttr 10/06/21 03:16 Sodium 140 mmol/L (136-145) 10/10/21 02:45 Potassium 4.8 mmol/L (3.5-5.1) 10/10/21 02:45 Chloride 99 mmol/L (98-107) 10/10/21 02:45 Carbon Dioxide 31 mmol/L (22-29) H 10/10/21 02:45 Anion Gap 14.8 (5-19) 10/10/21 02:45 BUN 32 mg/dL (6-20) H 10/10/21 02:45 Creatinine 1.5 mg/dL (0.7-1.2) H 10/10/21 02:45 GFR Calculation 49.7 mL/min (90-130) L 10/10/21 02:45 Glucose 132 mg/dL (65-115) H 10/10/21 02:45 POC Glucose 157 mg/dL (70-110) H 10/09/21 21:14 Calculated Osmolality 299 mOsm/kg (285-295) H 10/10/21 02:45 Lactic Acid 1.4 mmol/L (0.5-2.2) 10/05/21 17:03 Calcium 9.7 mg/dL (8.5-10.5) 10/10/21 02:45 Total Bilirubin 2.0 mg/dL (0.15-1.2) H 10/06/21 03:44 AST 12 U/L (0-40) 10/06/21 03:44 ALT 11 U/L (0-41) 10/06/21 03:44 Alkaline Phosphatase 296 IU/L (40-130) H 10/06/21 03:44 Creatine Kinase 35 U/L (39-308) L 10/05/21 17:03 Troponin T Baseline 31 ng/L (0-15) H 10/05/21 17:03 Troponin T 120 Minute 32.43 ng/L (0-15) H 10/05/21 19:30 Delta Troponin T 1.43 ABS# (0-10) 10/05/21 19:30 Troponin T Hi Sens 6Hr 31.65 ng/L (0-15) H 10/05/21 23:00 Troponin T Hi Sens 6Hr Delta 0.65 ng/L (0-12) 10/05/21 23:00 Total Protein 7.3 g/dL (6.6-8.7) 10/06/21 03:44 Albumin 3.8 g/dL (3.5-5.2) 10/06/21 03:44 Globulin 3.5 g/dL (1.3-4.6) 10/06/21 03:44 Vitamin B12 628 pg/mL (232-1245) 10/10/21 02:45 Urine Color Yellow (Yellow) 10/05/21 17:02 Urine Appearance Clear (CLEAR) 10/05/21 17:02 Urine pH 6 (5-7) 10/05/21 17:02 Ur Specific Wisdom 1.010 (1.005-1.030) 10/05/21 17:02 Urine Protein Neg (Negative) 10/05/21 17:02 Urine Glucose (UA) Norm (Normal) 10/05/21 17:02 Urine Ketones Negative (Negative) 10/05/21 17:02 Urine Blood Neg (Negative) 10/05/21 17:02 Urine Nitrate Negative (Negative) 10/05/21 17:02 Urine Bilirubin Neg (Negative) 10/05/21 17:02 Urine Urobilinogen Norm mg/dL (Negative) 10/05/21 17:02 Ur Leukocyte Esterase Negative (Negative) 10/05/21 17:02 Vitals Last Vital Signs Temp 98.2 F 10/10/21 00:00 Pulse 78 10/10/21 08:42 Resp 16 10/10/21 08:42 BP 143/64 10/10/21 07:18 Pulse Ox 90 10/10/21 08:42 Discharge Plan Discharge Patient Disposition: Home Condition: Stable Prescriptions: New meclizine 25 mg Tablet 25 mg PO TID Qty: 30 0RF Continued (DME) oxygen-air delivery systems Device See Rx Instructions .ROUTE .MEDSUPPLY Qty: 1 0RF Rx Instructions: As directed albuterol sulfate 90 mcg/actuation HFA aerosol inhaler 2 puff inhalation QID PRN (Reason: Shortness Of Breath) 0RF atorvastatin [Lipitor] 80 mg Tablet 80 mg PO BEDTIME 0RF omeprazole 40 mg Capsule,Delayed Release(Dr/Ec) 40 mg PO QAM 0RF montelukast [Singulair] 10 mg Tablet 10 mg PO BEDTIME 0RF aspirin 81 mg Tablet,Delayed Release (Dr/Ec) 81 mg PO QAM 0RF Dulera 200-5 mcg/actuation HFA aerosol inhaler 2 puff INHALATION BID 0RF allopurinol 100 mg tablet 100 mg PO QAM 0RF lisinopril 5 mg tablet 5 mg PO QAM 0RF Janumet 50-1,000 mg tablet 1 tab PO BID 0RF atenolol 50 mg Tablet 50 mg PO QAM Qty: 30 0RF sennosides-docusate sodium [Stool Softener-Laxative] 8.6-50 mg Tablet 1 tab PO DAILY Qty: 30 2RF ferrous sulfate 325 mg (65 mg iron) tablet 325 mg PO BID 0RF tamsulosin 0.4 mg capsule 0.4 mg PO DAILY 0RF ziprasidone HCl 40 mg capsule 40 mg PO DAILY@17 0RF sertraline 50 mg tablet 50 mg PO DAILY 0RF acetaminophen [Tylenol] 325 mg capsule 325 mg PO Q6H PRN (Reason: pain) Qty: 14 0RF albuterol sulfate 2.5 mg /3 mL (0.083 %) Solution For Nebulization 2.5 mg INHALATION Q6H PRN (Reason: Shortness Of Breath) 0RF Levemir FlexTouch U-100 Insuln 100 unit/mL (3 mL) insulin pen 6 unit SUBCUT DAILY 0RF Held potassium chloride [Klor-Con M20] 20 mEq Tablet,Er Particles/Crystals 40 meq PO DAILY Qty: 30 0RF Hold Instructions: Resume on 10/14/21. bumetanide 1 mg tablet 2 mg PO DAILY Qty: 60 0RF Hold Instructions: Resume on 10/14/21. Discharge Orders: Discharge Order (Routine); Ordered 10/10/21 Ordered By: Lester Araujo Other Ambulatory Orders: Basic Metabolic Panel (Routine) Timeframe: 2 Days Facility: [facility] - Location: Lab - Main Lab Ordered By: Lester Araujo Referrals: Stewart Rosario MD [Primary Care Provider] - 10/17/21 10:15 am Discharge Diet: Diabetic Discharge Activity: As per PT/OT instructions Patient Instructions: Meclizine (By mouth), Acute Kidney Injury (DC), COPD Stoplight, Opioid Safety Discharge Attestations Time Spent in Discharge Care*: less than 30 min Status at Discharge: Cognitive status at discharge: cognitively intact , Behavioral status at discharge: cooperative , Quality Metrics Clinical Quality Measures [ No reported AMI, CVA or VTE this stay] Coding Level of Care Code Acute Chg FW DC note Diagnoses TEDDY (acute kidney injury) N17.9 Chronic anemia D64.9 Depression F32.A CHF (congestive heart failure) I50.9 Dizziness R42
[2021-10-10 13:41] VITALS: PULSE 78; RESP 16; O2SAT 90
[2021-10-10 16:00] VITALS: BP 138/75; PULSE 64; RESP 14; O2SAT 89
[2021-10-10 20:51] LABS: Glucose Point of Care 154 mg/dL (70-110)
[2021-10-11 10:53] LABS: Glucose Point of Care 150 mg/dL (70-110)
== END 2021-10-10 16:48 | disposition home or self-care (01) | DRG 291 ==
LOC: ER 18:43 → CSU 20:28 → MEDSURG 10-06 22:53
PROVIDERS: Internal Medicine; Admitting Provider Internal Medicine; Emergency Provider Family Medicine; PCP Family Medicine; Visit Provider Internal Medicine
DX: I13.0 Hypertensive heart and chronic kidney disease with heart failure and stage 1 through stage 4 chronic kidney disease, or unspecified chronic kidney disease (principal); I50.33 Acute on chronic diastolic (congestive) heart failure; N17.9 Acute kidney failure, unspecified; Z68.45 Body mass index [BMI] 70 or greater, adult; J96.12 Chronic respiratory failure with hypercapnia; J96.11 Chronic respiratory failure with hypoxia; E11.22 Type 2 diabetes mellitus with diabetic chronic kidney disease; F32.A Depression, unspecified; J44.9 Chronic obstructive pulmonary disease, unspecified; Z91.19 Patient's noncompliance with other medical treatment and regimen; R42 Dizziness and giddiness; E66.01 Morbid (severe) obesity due to excess calories; N18.9 Chronic kidney disease, unspecified; D63.1 Anemia in chronic kidney disease; E78.2 Mixed hyperlipidemia; G47.33 Obstructive sleep apnea (adult) (pediatric); Z99.81 Dependence on supplemental oxygen; Z79.4 Long term (current) use of insulin; Z79.82 Long term (current) use of aspirin
CPT/HCPCS: 36415; 36416; 36600; 51702; 70450; 71045; 80048; 80051; 80053; 81003; 82274; 82330; 82550; 82607; 82803; 82805; 82962; 83605; 84484; 85025; 93005; 94660; 96372; 96374; 97110; 97161; 99291; J1644; J1650; J1815; J1940; J3490; J7040; J8597

== ENCOUNTER 2021-10-21 12:40 | Inpatient (IN) | payer MEDICAID, SELFPAY ==
[2021-10-21] VITALS (9 sets, daily range): BP systolic 106–135; BP diastolic 52–79; PULSE 66–76; RESP 10–22; TEMP 36.6–36.8; O2SAT 87–99; BMI 71.8; BMI 74.9
--- NOTE | 2021-10-21 12:53 | XR_ITS ---
WS: [id number] Portable AP supine chest, 10/21/2021 Clinical Data: sob Comparison: Portable chest, 10/05/2021. Findings: No nodules, masses or effusions are seen. The heart is slightly enlarged. The pulmonary vas cularity is not increased. No pneumonia or pneumothorax is seen. XR/XR chest 1V portable [id number] Impression: Cardiomegaly.
--- NOTE | 2021-10-21 12:54 | ECG_ITS ---
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 Measurements Intervals [place] Rate: 69 P: 80 PA: 139 QRS: 102 QRSD: 97 T: 67 QT: 403 QTc: 432 Interpretive Statements SINUS RHYTHM RIGHT AXIS DEVIATION [QRS AXIS > 100] LOW QRS VOLTAGE IN PRECORDIAL LEADS [QRS DEFLECTION < 1.0 mV IN CHEST LEADS] PATTERN CONSISTENT WITH PULMONARY DISEASE INCOMPLETE RIGHT BUNDLE BRANCH BLOCK [90+ ms QRS DURATION, TERMINAL R IN V1/V2, 40+ ms S IN I/aVL/V4/V5/V6] Compared to ECG 10/05/2021 23:25:05 Right-axis deviation now present Low QRS voltage now present Indeterminate axis no longer present Electronically Signed On 10-21-2021 18:21:19 CDT by Tay Mireles M.D. [email or web address]
--- NOTE | 2021-10-21 12:54 | W.ED.CHESTPA ---
HPI - Chest Pain General: Chief Complaint: Shortness of Breath/Dyspnea Stated Complaint: ARM PAIN Time Seen by Provider: 10/21/21 12:44 History of Present Illness: 51-year-old presents with chest pain shortness of breath. States that he believes the cleaning lady actually unplug his oxygen concentrator at home. Upon EMS arrival he appeared cyanotic but had normal oxygen saturation since he was placed back up to 2 L by nasal cannula which is his normal baseline rate. Does report that he had chest pain radiating to the left upper extremity when he was short of breath. States it does not significantly improved. Denies any nausea or vomiting. Denies fever cough or chills. Review of Systems Narrative: - CONSTITUTIONAL: Denies weight loss, fever and chills. - HEENT: Denies changes in vision and hearing. - RESPIRATORY: As above - CV: As above - GI: Denies abdominal pain, nausea, vomiting and diarrhea. - : Denies dysuria and urinary frequency. - MSK: Denies myalgia and joint pain. - SKIN: Denies rash and pruritus. - NEUROLOGICAL: Denies headache, weakness, numbness and syncope. - PSYCHIATRIC: Denies suicidal ideation [facility] ED PFSH: Medical History Acute respiratory failure with hypoxia and hypercapnia Anemia -has chronic iron deficiency anemia, baseline Hg is around 9-10 Anxiety Chest pain Chest pain CHF (congestive heart failure) -Echo (07/2019): EF=68%, normal diastolic function, no RWMA -on oral lasix -no acute exacerbation currently CHF (congestive heart failure) Chronic anemia Chronic respiratory failure Decubitus ulcer limited to breakdown of skin (stage 2) Depression Diabetes -NIDDM type II -A1c (11/2019): 8.2 -Accuchecks, ISS, hypoglycemia precautions -consistent carb diet -anticipate hyperglycemia with steroid use Gout Hyperlipemia, mixed Hypertension -VSS; continue to monitor -continue oral antihypertensives Hypertension Major depressive disorder, recurrent, moderate Morbid (severe) obesity due to excess calories Morbid obesity OPAL (obstructive sleep apnea) -in the process of getting CPAP set up Pneumonia Psychiatric care Transient cerebral ischemia Surgical History History of adenoidectomy History of hernia repair History of tonsillectomy History of umbilical hernia repair Family History Mother Hypertension CAD (coronary artery disease) Stroke Social History Smoking and tobacco status: never smoked Second hand smoke exposure: Yes Alcohol intake: never Adopted: No Caregiver/support person: No Lives independently: Yes Household members: family and friend(s) Housing: Manufactured/Mobile home Marital status: Single Number of children: 0 Number of grandchildren: 0 Highest education level completed: 8th Grade service: No Current occupational status: disabled Pets and animals: No History of recent travel: No Leisure activites: other Leisure activities details: play card games Sexually active: No Current gender identity: Male Yolanda/Congregational: Other Special yolanda needs: No Agree to transfusion: Yes Financial difficulty paying for basics: Hard Physical Exam Narrative: EXAM NARRATIVE: - GENERAL: Obese, alert and oriented x 3. No acute distress. Well-nourished. - EYES: EOMI. Anicteric. - HENT: Atraumatic, no C-spine tenderness. Moist mucous membranes. No scleral icterus. No cervical lymphadenopathy. - LUNGS: Clear to auscultation bilaterally. No accessory muscle use. Equal lung sounds bilaterally. No respiratory distress. - CARDIOVASCULAR: Regular rate and rhythm. No murmur. - ABDOMEN: Soft, non-tender and non-distended. Negative CVA tenderness bilaterally, no rebound or guarding, negative Damon sign. No palpable masses. - EXTREMITIES: No edema. Non-tender. - SKIN: No rashes or lesions. Warm. - NEUROLOGIC: No meningismus or focal neurological deficits. CN II-XII grossly intact. - PSYCHIATRIC: Cooperative. Appropriate mood and affect. Course Vital Signs: Vital signs: Vital Signs Temperature 97.9 F 10/21/21 14:57 Pulse Rate 66 10/21/21 14:57 Respiratory Rate 18 10/21/21 14:57 Blood Pressure 106/52 10/21/21 14:57 Pulse Oximetry 99 10/21/21 14:57 MDM - Chest Pain Medical Decision Making 51-year-old male presents shortness of breath he also complains of chest pain. EKG documents no acute ischemia or acute abnormality. High-sensitivity troponin elevated 40s however this is similar to his previous baseline. Does have worsening creatinine to 1.8 from baseline of around 1.5 2 weeks ago. D-dimer is elevated but due to creatinine unable to obtain CTA. Discussed with hospitalist and will admit for VQ scan. BNP is all significantly elevated to 4300. Lasix provided. X-ray does not reveal pneumothorax or consolidation. However there is cardiomegaly. Remainder of lab work and imaging reviewed. Discussed with hospitalist and they agreed patient would benefit from admission. Patient admitted in stable condition. Further evaluation management per hospitalist team. Lab Data : 10/21/21 13:15 10/21/21 13:15 Radiology Impressions Chest X-Ray 10/21/21 12:53 Impression: Cardiomegaly. Laboratory Results WBC 6.1 10^3/uL (4.0-10.0) 10/21/21 13:15 RBC 4.05 10^6/uL (4.1-5.3) L 10/21/21 13:15 Hgb 9.1 g/dL (11.7-16.6) L 10/21/21 13:15 Hct 34.4 % (42.0-52.0) L 10/21/21 13:15 MCV 84.9 fl (80-94) 10/21/21 13:15 MCH 22.5 pg (28.0-34.0) L 10/21/21 13:15 MCHC 26.5 g/dL (30.0-36.0) L 10/21/21 13:15 RDW 19.9 % (12.1-15.1) H 10/21/21 13:15 Plt Count 271 10^3/cmm (130-400) 10/21/21 13:15 MPV 10.5 fL (7.4-10.4) H 10/21/21 13:15 Neut % (Auto) 80.5 % 10/21/21 13:15 Lymph % (Auto) 10.9 % 10/21/21 13:15 [place] % (Auto) 7.2 % 10/21/21 13:15 Eos % (Auto) 0.8 % 10/21/21 13:15 Baso % (Auto) 0.3 % 10/21/21 13:15 Neut # (Auto) 4.93 10^3/uL (1.8-7.7) 10/21/21 13:15 Lymph # (Auto) 0.7 10^3/uL (0.8-4.8) L 10/21/21 13:15 [place] # (Auto) 0.4 10^3/uL (0.2-0.9) 10/21/21 13:15 Eos # (Auto) 0.1 10^3/uL (0.0-0.8) 10/21/21 13:15 Baso # (Auto) 0.0 10^3/uL (0.0-0.1) 10/21/21 13:15 Nucleated RBC % (auto) 0 % 10/21/21 13:15 Nucleated RBCs # 0.0 /100WBC 10/21/21 13:15 D-Dimer 1.89 ug/mIFEU (0-0.59) H 10/21/21 13:40 Sodium 137 mmol/L (136-145) 10/21/21 13:15 Potassium 5.1 mmol/L (3.5-5.1) 10/21/21 13:15 Chloride 95 mmol/L (98-107) L 10/21/21 13:15 Carbon Dioxide 31 mmol/L (22-29) H 10/21/21 13:15 Anion Gap 16.1 (5-19) 10/21/21 13:15 BUN 33 mg/dL (6-20) H 10/21/21 13:15 Creatinine 1.8 mg/dL (0.7-1.2) H 10/21/21 13:15 GFR Calculation 40.3 mL/min (90-130) L 10/21/21 13:15 Glucose 128 mg/dL (65-115) H 10/21/21 13:15 Calculated Osmolality 293 mOsm/kg (285-295) 10/21/21 13:15 Calcium 8.5 mg/dL (8.5-10.5) 10/21/21 13:15 Total Bilirubin 1.0 mg/dL (0.15-1.2) 10/21/21 13:15 AST 19 U/L (0-40) 10/21/21 13:15 ALT 13 U/L (0-41) 10/21/21 13:15 Alkaline Phosphatase 327 IU/L (40-130) H 10/21/21 13:15 Troponin T Baseline 43 ng/L (0-15) H 10/21/21 13:15 NT-Pro-B Natriuret Pep 4396 pg/mL (0-125) H 10/21/21 13:15 Total Protein 7.4 g/dL (6.6-8.7) 10/21/21 13:15 Albumin 4.4 g/dL (3.5-5.2) 10/21/21 13:15 Globulin 3.0 g/dL (1.3-4.6) 10/21/21 13:15 Lipase 32 U/L (13-60) 10/21/21 13:15 SARS-CoV-2 Ag (Rapid) Negative (Negative) 10/21/21 13:10 EKG Data EKG 1: Other EKG comments: Sinus rhythm, rate of 69, incomplete right bundle branch block, no sign of acute ischemia or other acute abnormality. Discharge Plan Discharge Condition: Stable Prescriptions: No Action (DME) oxygen-air delivery systems Device See Rx Instructions .ROUTE .MEDSUPPLY Qty: 1 0RF Rx Instructions: As directed albuterol sulfate 90 mcg/actuation HFA aerosol inhaler 2 puff inhalation QID PRN (Reason: Shortness Of Breath) 0RF atorvastatin [Lipitor] 80 mg Tablet 80 mg PO BEDTIME 0RF omeprazole 40 mg Capsule,Delayed Release(Dr/Ec) 40 mg PO QAM 0RF montelukast [Singulair] 10 mg Tablet 10 mg PO BEDTIME 0RF aspirin 81 mg Tablet,Delayed Release (Dr/Ec) 81 mg PO QAM 0RF Dulera 200-5 mcg/actuation HFA aerosol inhaler 2 puff INHALATION BID 0RF allopurinol 100 mg tablet 100 mg PO QAM 0RF lisinopril 5 mg tablet 5 mg PO QAM 0RF Janumet 50-1,000 mg tablet 1 tab PO BID 0RF potassium chloride [Klor-Con M20] 20 mEq Tablet,Er Particles/Crystals 40 meq PO DAILY Qty: 30 0RF Hold Instructions: Resume on 10/14/21. atenolol 50 mg Tablet 50 mg PO QAM Qty: 30 0RF sennosides-docusate sodium [Stool Softener-Laxative] 8.6-50 mg Tablet 1 tab PO DAILY Qty: 30 2RF bumetanide 1 mg tablet 2 mg PO DAILY Qty: 60 0RF Hold Instructions: Resume on 10/14/21. ferrous sulfate 325 mg (65 mg iron) tablet 325 mg PO BID 0RF tamsulosin 0.4 mg capsule 0.4 mg PO DAILY 0RF ziprasidone HCl 40 mg capsule 40 mg PO DAILY@17 0RF sertraline 50 mg tablet 50 mg PO DAILY 0RF acetaminophen [Tylenol] 325 mg capsule 325 mg PO Q6H PRN (Reason: pain) Qty: 14 0RF albuterol sulfate 2.5 mg /3 mL (0.083 %) Solution For Nebulization 2.5 mg INHALATION Q6H PRN (Reason: Shortness Of Breath) 0RF Levemir FlexTouch U-100 Insuln 100 unit/mL (3 mL) insulin pen 6 unit SUBCUT DAILY 0RF meclizine 25 mg Tablet 25 mg PO TID Qty: 30 0RF Referrals: Stewart Rosario MD [Primary Care Provider] - Coding Level of Care Code ED Tube Roller for Tiffanieg Piyush
[2021-10-21] MEDS: aspirin 81 mg Chew Tablet 324 MG PO (13:06)
[2021-10-21 13:34] LABS: Basophils % 0.3 %; Eosinophils # 0.1 10^3/uL (0.0-0.8); Eosinophils % 0.8 %; Hematocrit 34.4 % (42.0-52.0); Hemoglobin 9.1 g/dL (11.7-16.6); Lymphocytes # 0.7 10^3/uL (0.8-4.8); Lymphocytes % 10.9 %; Mean Corpuscular HGB Conc 26.5 g/dL (30.0-36.0); Mean Corpuscular Hemoglobin 22.5 pg (28.0-34.0); Mean Corpuscular Volume 84.9 fl (80-94); Mean Platelet Volume 10.5 fL (7.4-10.4); Monocytes # 0.4 10^3/uL (0.2-0.9); Monocytes % 7.2 %; Neutrophils # 4.93 10^3/uL (1.8-7.7); Neutrophils % 80.5 %; Nucleated Red Blood Cells % 0 %; Platelet Count 271 10^3/cmm (130-400); Red Blood Count 4.05 10^6/uL (4.1-5.3); Red Cell Distribution Width 19.9 % (12.1-15.1); White Blood Count 6.1 10^3/uL (4.0-10.0)
[2021-10-21 13:58] LABS: Troponin(5th) Baseline 43 ng/L (0-15)
[2021-10-21 14:01] LABS: D Dimer 1.89 ug/mIFEU (0-0.59)
[2021-10-21 14:03] LABS: Alanine Aminotransferase 13 U/L (0-41); Albumin Level 4.4 g/dL (3.5-5.2); Alkaline Phosphatase 327 IU/L (40-130); Aspartate Amino Transferase 19 U/L (0-40); Blood Urea Nitrogen 33 mg/dL (6-20); Calcium 8.5 mg/dL (8.5-10.5); Carbon Dioxide 31 mmol/L (22-29); Chloride 95 mmol/L (98-107); Glomerular Filtration Rate 40.3 mL/min (90-130); Glucose 128 mg/dL (65-115); Lipase 32 U/L (13-60); NT Pro B Type Natriuretic Pept 4396 pg/mL (0-125); Osmolality Calculated 293 mOsm/kg (285-295); Sodium 137 mmol/L (136-145); Total Protein 7.4 g/dL (6.6-8.7)
[2021-10-21 14:15] LABS: SARS Covid-2 Antigen Negative (Negative)
[2021-10-21 14:17] LABS: Anion Gap 16.1 (5-19); Potassium 5.1 mmol/L (3.5-5.1)
--- NOTE | 2021-10-21 14:54 | ECG_ITS ---
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 Measurements Intervals [place] Rate: 72 P: 91 [place]: 148 QRS: 102 QRSD: 97 T: 68 QT: 400 QTc: 438 Interpretive Statements SINUS RHYTHM RIGHT AXIS DEVIATION [QRS AXIS > 100] LOW QRS VOLTAGE IN PRECORDIAL LEADS [QRS DEFLECTION < 1.0 mV IN CHEST LEADS] PATTERN CONSISTENT WITH PULMONARY DISEASE INCOMPLETE RIGHT BUNDLE BRANCH BLOCK [90+ ms QRS DURATION, TERMINAL R IN V1/V2, 40+ ms S IN I/aVL/V4/V5/V6] WARNING: DATA QUALITY MAY AFFECT INTERPRETATION Compared to ECG 10/21/2021 13:05:37 No significant changes Electronically Signed On 10-21-2021 18:24:45 CDT by Tay Mireles M.D. [id number]
[2021-10-21] MEDS: FUROsemide 10 mg/mL SDV 4mL 40 MG IVP (14:56)
--- NOTE | 2021-10-21 15:14 | PM.HP ---
Providers/Chief Complaint Primary Care Provider: Stewart Rosario MD Chief Complaint: ARM PAIN History of Present Illness Arnol Guzman is a 51 year old male with past medical history of CHF, anxiety, chronic iron deficiency anemia, diabetes type 2, stage II decubitus ulcer, hypertension, morbid obesity, obstructive sleep apnea, COPD who has had multiple admissions for dyspnea presents to the hospital today with complaint of shortness of breath. Upon presentation he was diaphoretic as well. Patient states that his cleaning lady might have disconnected his oxygen concentrator. ER physician stated that patient was cyanotic on presentation but was saturating well on 2 L nasal cannula which is her normal baseline weight. Patient briefly also reported chest pain rating to left upper extremity when he was short of breath. Denied nausea, vomiting, fever, cough, chills. Blood pressure on arrival 106/52, pulse ox 99% on 2 L nasal cannula, respiratory 18, pulse 66, temperature 97.9. EKG did not show acute ischemia or any other abnormalities. Troponin in 40s range which is similar to his previous baseline. Creatinine 1.8 from baseline of 1.52 weeks ago. D-dimer elevated 1.89 therefore CTA was not obtained due to creatinine elevation. BNP elevated at 4300. Patient given 1 dose of Lasix. Chest x-ray did not show pneumothorax or consolidation but cardiomegaly was present. Patient states he is not compliant with his water pill at home. He takes it from time to time. He does not wear his CPAP either. Review of systems negative except noted in HPI. Of note patient was recently discharged from the hospital on October 10. He had been admitted for fluid overload and had a chief complaint of orthopnea PND in her breath at that admission. He was diagnosed with exacerbation of diastolic congestive heart failure and he was diuresed aggressively. Creatinine started worsening with diuresis therefore diuretics were held for a few days. He was complaining of dizziness on ambulation and with change of head position therefore meclizine was added and PT was consulted. We will also check another BMP and follow-up with his PCP outpatient. Unfortunately insurance does not cover his BiPAP. Patient has also been noncompliant with his CPAP continuously. Medications/Allergies Home Medications Medication Instructions Recorded Confirmed Last Taken Type atorvastatin 80 mg tablet (Lipitor) 80 mg PO BEDTIME 07/14/19 10/21/21 07/24/21 History montelukast 10 mg tablet 10 mg PO BEDTIME 07/14/19 10/21/21 07/24/21 History (Singulair) omeprazole 40 mg capsule,delayed 40 mg PO QAM 07/14/19 10/21/21 07/24/21 History release oxygen-air delivery systems #1 03/11/20 10/21/21 Unknown History albuterol sulfate 90 mcg/actuation 2 puff INHALATION QID PRN 05/19/20 10/21/21 07/25/21 History aerosol inhaler aspirin 81 mg tablet,delayed 81 mg PO QAM 09/13/20 10/21/21 07/24/21 History release mometasone-formoterol HFA 200 2 puff INHALATION BID 11/24/20 10/21/21 07/24/21 History mcg-5 mcg/actuation aerosol inhaler (Dulera) allopurinol 100 mg tablet 100 mg PO QAM 02/16/21 10/21/21 07/24/21 History lisinopril 5 mg tablet 5 mg PO QAM 02/16/21 10/21/21 07/24/21 History sitagliptin 50 mg-metformin 1,000 1 tab PO BID 02/16/21 10/21/21 07/24/21 History mg tablet (Janumet) ferrous sulfate 325 mg (65 mg 325 mg PO BID 06/22/21 10/21/21 07/24/21 History iron) tablet sertraline 50 mg tablet 50 mg PO DAILY 07/13/21 10/21/21 07/24/21 History tamsulosin 0.4 mg capsule 0.4 mg PO DAILY 07/13/21 10/21/21 07/24/21 History ziprasidone HCl 40 mg capsule 40 mg PO DAILY@17 07/13/21 10/21/21 07/24/21 History acetaminophen 325 mg capsule 325 mg PO Q6H PRN #14 cap 07/15/21 10/21/21 Unknown Rx (Tylenol) atenolol 50 mg tablet 50 mg PO QAM #30 tab 09/01/21 10/21/21 Unknown Rx potassium chloride 20 mEq 40 meq PO DAILY #30 tab 09/01/21 10/21/21 Unknown Rx tablet,extended release(part/cryst) (Klor-Con M) bumetanide 1 mg tablet 2 mg PO DAILY #60 tab 09/06/21 10/21/21 Unknown Rx sennosides 8.6 mg-docusate sodium 1 tab PO DAILY #30 tab 09/06/21 10/21/21 Unknown Rx 50 mg tablet (Stool Softener-Laxative) albuterol sulfate 2.5 mg INHALATION Q6H PRN 10/05/21 10/21/21 Unknown History insulin detemir U-100 100 unit/mL 6 unit SUBCUT DAILY 10/05/21 10/21/21 Unknown History (3 mL) subcutaneous pen (Levemir FlexTouch U-100 Insulin) meclizine 25 mg tablet 25 mg PO TID #30 tab 10/10/21 10/21/21 Unknown Rx Allergies Allergy/AdvReac Type Severity Reaction Status Date / Time Penicillins Allergy ALGY-Hives Verified 10/21/21 15:49 diltiazem [From Cardizem] AdvReac ADR/ALGY-Pa Verified 10/21/21 15:49 lpitations PFSH Acute PFSH: Medical History Acute respiratory failure with hypoxia and hypercapnia Anemia -has chronic iron deficiency anemia, baseline Hg is around 9-10 Anxiety Chest pain Chest pain CHF (congestive heart failure) -Echo (07/2019): EF=68%, normal diastolic function, no RWMA -on oral lasix -no acute exacerbation currently CHF (congestive heart failure) Chronic anemia Chronic respiratory failure Decubitus ulcer limited to breakdown of skin (stage 2) Depression Diabetes -NIDDM type II -A1c (11/2019): 8.2 -Accuchecks, ISS, hypoglycemia precautions -consistent carb diet -anticipate hyperglycemia with steroid use Gout Hyperlipemia, mixed Hypertension -VSS; continue to monitor -continue oral antihypertensives Hypertension Major depressive disorder, recurrent, moderate Morbid (severe) obesity due to excess calories Morbid obesity OPAL (obstructive sleep apnea) -in the process of getting CPAP set up Pneumonia Psychiatric care Transient cerebral ischemia Surgical History History of adenoidectomy History of hernia repair History of tonsillectomy History of umbilical hernia repair Family History Mother Hypertension CAD (coronary artery disease) Stroke Social History Smoking and tobacco status: never smoked Second hand smoke exposure: Yes Alcohol intake: never Adopted: No Caregiver/support person: No Lives independently: Yes Household members: family and friend(s) Housing: Manufactured/Mobile home Marital status: Single Number of children: 0 Number of grandchildren: 0 Highest education level completed: 8th Grade service: No Current occupational status: disabled Pets and animals: No History of recent travel: No Leisure activites: other Leisure activities details: play card games Sexually active: No Current gender identity: Male Yolanda/Muslim: Other Special yolanda needs: No Agree to transfusion: Yes Financial difficulty paying for basics: Hard Vitals/I&O/Wt Last Vital Signs Temp 97.9 F 10/21/21 14:57 Pulse 66 10/21/21 14:57 Resp 18 10/21/21 14:57 BP 106/52 10/21/21 14:57 Pulse Ox 99 10/21/21 14:57 Weight last 48 hrs Weight 172.365 kg Physical Exam Narrative: General: Alert oriented x3, large obese male laying in bed appearing comfortable on 2 L nasal cannula HEENT: Normocephalic, atraumatic, EOMI, breathing 2 L nasal cannula Cardio: Regular rate rhythm, muffled heart sounds due to body habitus, normal S1-S2, no murmurs rubs gallops, JVD unable to assess due to body habitus Respiratory: Diminished breath sounds bilaterally, no gross wheezes or rhonchi. No conversational dyspnea GI: Abdomen soft, nontender, obese rounded abdomen, bowel sounds + Behavior: Appropriate and cooperative Extremities: Trace edema bilateral lower extremities, chronic venous stasis changes. Data : 10/22/21 05:15 10/22/21 05:15 A&P Assessment and plan (1) Acute kidney injury: Status: Acute (2) Diastolic congestive heart failure: Status: Acute (3) Obstructive sleep apnea: Status: Acute (4) Diabetes mellitus: Status: Acute (5) Cardiorenal syndrome: Status: Acute Plan #Acute diastolic congestive heart failure exacerbation #Medication noncompliance #COPD #Anasarca #OPAL, non compliant with cpap #TEDDY on CKD, Cr. 1.8 #Elevated D-Dimer #Hx of noncompliance #Hx of depression - Lasix 40 IV BID - No IV fluids - Duonebs q4H PRN - Sputum culture - Continue home medications - Continue on bipap - RT to eval and treat - PT eval - Sliding scale insulin - Daily weights - Check V/Q scan to rule out PE - DVT PPX: heparin Full Code Patient has a caregiver that comes to the house and also has home health nurse who comes and help with his medications. He states he might consider going to a halfway this time and would like to speak to case management. Attestations Medical Necessity Statement*: > 2 midnights anticipated Coding Level of Care Code Acute General Accounting Clerk for Zac Pickett Diagnoses Acute kidney injury N17.9 Diastolic congestive heart failure I50.30 Obstructive sleep apnea G47.33 Diabetes mellitus E11.9 Cardiorenal syndrome I13.10
--- NOTE | 2021-10-21 15:52 | PC.PHAR ---
KEDAR FROM [facility] IN [facility] C[facility] VERIFIED PATIENTS MEDS OVER THE PHONE. KEDAR STATES SHE PUTS MEDICATIONS IN PT TIME BROKER BUT CAN NOT VERIFY THAT PT TAKES THEM. EXT. MED LIST SHOWS RECENT FILL ON 10/03/21 FUROSEMIDE 40MG, FOLIC ACID 1 MG, GLIPIZIDE ER 10 MG AND VITAMIN C 500 MG. KEDAR STATES SHE DOES NOT PUT THESE IN PT TIME BROKER BECAUSE THEY ARE NOT ON HIS MOST RECENT HOME MED LIST THAT WAS UPDATED ON 10/10/21 UPON DISCHARGE ON 10/10/21.
[2021-10-21 16:00] LABS: Troponin 5 2HR 44.41 ng/L (0-15)
[2021-10-21 16:01] LABS: Troponin 5 2HR Delta 1.41 ABS# (0-10)
[2021-10-21 16:25] LABS: Procalcitonin 0.15 ng/mL (0-0.5)
[2021-10-21 17:09] LABS: Glucose Point of Care 109 mg/dL (70-110)
[2021-10-21] MEDS: ferrous sulfate EC 325 mg Tablet PO (18:13)
[2021-10-21] MEDS: heparin 5,000 unit/mL INJ 1 mL 5000 UNIT SUBCUT (18:13)
[2021-10-21] MEDS: bumetanide 0.25 mg/mL SDV 4 mL 1 MG IVP (18:13)
[2021-10-21] MEDS: ziprasidone hcl 40 mg Capsule PO (18:14)
--- NOTE | 2021-10-21 18:54 | ECG_ITS ---
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 Measurements Intervals [place] Rate: 69 P: 73 DE: 164 QRS: 165 QRSD: 108 T: 76 QT: 407 QTc: 438 Interpretive Statements SINUS RHYTHM INDETERMINATE AXIS LOW QRS VOLTAGE IN PRECORDIAL LEADS INCOMPLETE RIGHT BUNDLE BRANCH BLOCK Compared to ECG 10/21/2021 16:42:06 Indeterminate axis now present Right-axis deviation no longer present Electronically Signed On 10-22-2021 15:13:55 CDT by Crys Diggs M.D. [id number]
[2021-10-21 19:33] LABS: Troponin 5 6HR 41.16 ng/L (0-15)
[2021-10-21 19:35] LABS: Troponin 5 6HR Delta -1.84 ng/L (0-12)
[2021-10-21] MEDS: atorvastatin 40 mg Tablet 80 MG PO (21:12)
[2021-10-21] MEDS: montelukast sodium 10 mg Tablet PO (21:12)
[2021-10-21 21:56] LABS: Glucose Point of Care 120 mg/dL (70-110)
[2021-10-22] VITALS (9 sets, daily range): BP systolic 91–151; BP diastolic 52–78; PULSE 61–73; RESP 14–18; TEMP 36.6–37.1; O2SAT 70–97
[2021-10-22] MEDS: heparin 5,000 unit/mL INJ 1 mL 5000 UNIT SUBCUT ×2 (04:03→17:56)
[2021-10-22] MEDS: atenolol 50 mg Tablet PO (05:07)
[2021-10-22] MEDS: aspirin 81 mg EC Tablet PO (05:07)
[2021-10-22] MEDS: pantoprazole DR 40 mg Tablet PO (05:07)
[2021-10-22] MEDS: allopurinol 100 mg Tablet PO (05:07)
[2021-10-22] MEDS: lisinopril 5 mg Tablet PO (05:07)
[2021-10-22 05:49] LABS: Basophils % 0.4 %; Eosinophils % 0.6 %; Hematocrit 32.5 % (42.0-52.0); Hemoglobin 8.5 g/dL (11.7-16.6); Lymphocytes # 0.7 10^3/uL (0.8-4.8); Lymphocytes % 13.7 %; Mean Corpuscular HGB Conc 26.2 g/dL (30.0-36.0); Mean Corpuscular Hemoglobin 22.3 pg (28.0-34.0); Mean Corpuscular Volume 85.1 fl (80-94); Mean Platelet Volume 9.8 fL (7.4-10.4); Monocytes # 0.4 10^3/uL (0.2-0.9); Monocytes % 8.4 %; Neutrophils # 3.65 10^3/uL (1.8-7.7); Neutrophils % 76.7 %; Nucleated Red Blood Cells % 0 %; Platelet Count 211 10^3/cmm (130-400); Red Blood Count 3.82 10^6/uL (4.1-5.3); Red Cell Distribution Width 20.2 % (12.1-15.1); White Blood Count 4.8 10^3/uL (4.0-10.0)
[2021-10-22 06:04] LABS: Blood Urea Nitrogen 32 mg/dL (6-20); Calcium 8.6 mg/dL (8.5-10.5); Carbon Dioxide 33 mmol/L (22-29); Chloride 98 mmol/L (98-107); Glomerular Filtration Rate 49.7 mL/min (90-130); Glucose 137 mg/dL (65-115); Magnesium 1.8 mg/dL (1.7-2.3); Osmolality Calculated 297 mOsm/kg (285-295); Sodium 139 mmol/L (136-145)
[2021-10-22 06:47] LABS: Glucose Point of Care 121 mg/dL (70-110)
[2021-10-22] MEDS: sertraline 50 mg Tablet PO (09:48)
[2021-10-22] MEDS: ferrous sulfate EC 325 mg Tablet PO ×2 (09:49→17:56)
[2021-10-22] MEDS: tamsulosin 0.4 mg Capsule PO (09:49)
[2021-10-22] MEDS: sennosides-docusate Tablet 1 TAB PO (09:49)
[2021-10-22] MEDS: bumetanide 0.25 mg/mL SDV 4 mL 1 MG IVP ×2 (09:55→18:00)
[2021-10-22 11:48] LABS: Glucose Point of Care 147 mg/dL (70-110)
--- NOTE | 2021-10-22 12:57 | PM.PN ---
Subjective Subjective: Seen this morning. Creatinine improved to 1.5. VQ scan negative for pulmonary embolism. Patient states that he would like to speak to caser up regarding [place] [facility]. He is not ready to go back home. Vitals/I&O/Wt Last Vital Signs Temp 98.8 F 10/22/21 12:00 Pulse 72 10/22/21 12:00 Resp 16 10/22/21 12:00 BP 151/67 10/22/21 12:00 Pulse Ox 95 10/22/21 12:00 10/21/21 10/22/21 10/22/21 22:59 06:59 14:59 Intake Total 240 / 240 240 / 480 120 / 120 Output Total 1800 / 1800 Balance 240 / 240 -1560 / -1320 120 / 120 Weight last 48 hrs Weight 180.122 kg Weight 180.076 kg Weight 172.365 kg Physical Exam Narrative: General: Alert oriented x3, large obese male laying in bed appearing comfortable on 2 L nasal cannula HEENT: Normocephalic, atraumatic, EOMI, breathing 2 L nasal cannula Cardio: Regular rate rhythm, muffled heart sounds due to body habitus, normal S1-S2, no murmurs rubs gallops, JVD unable to assess due to body habitus Respiratory: Diminished breath sounds bilaterally, no gross wheezes or rhonchi.? No conversational dyspnea GI: Abdomen soft, nontender, obese rounded abdomen, bowel sounds + Behavior: Appropriate and cooperative Extremities: Trace edema bilateral lower extremities, chronic venous stasis changes. Urinary Catheter Management: Shaw: Cath Placed During This Visit: yes Reason for Continuing Indwelling Catheter: Other Urinary Catheter Date of Insertion: 10/21/21 Urinary Catheter Time of Insertion: 17:30 Data : 10/22/21 05:15 10/22/21 05:15 A&P Assessment and plan (1) Cardiorenal syndrome: Status: Acute (2) Acute kidney injury: Status: Acute (3) Diastolic congestive heart failure: Status: Acute (4) Obstructive sleep apnea: Status: Acute (5) Diabetes mellitus: Status: Acute Plan #Acute diastolic congestive heart failure exacerbation #Medication noncompliance #COPD #Anasarca #OPAL, non compliant with cpap #TEDDY on CKD, Cr. 1.8 #Elevated D-Dimer #Hx of noncompliance #Hx of depression -Continue Bumex IV twice daily. ? Creatinine improved 1.5. Closer to baseline. - No IV fluids - Duonebs q4H PRN - Sputum culture - Continue home medications - Continue on bipap - RT to eval and treat - PT eval - Sliding scale insulin - Daily weights -vq scan negative for PE. - DVT PPX: heparin Full Code Patient has a caregiver that comes to the house and also has home health nurse who comes and help with his medications.? He states he might consider going to a [place] [facility] [place] this time and would like to speak to case management. I attempted to call the sister today to update her but was unable to get a hold of her. Attestations Medical Necessity Statement*: Discharge to home tomorrow. Patient would like to talk to caser up for [facility] facility options. Coding Level of Care Code Acute Help Desk Support Specialist for Zac Pickett Diagnoses Cardiorenal syndrome I13.10 Acute kidney injury N17.9 Diastolic congestive heart failure I50.30 Obstructive sleep apnea G47.33 Diabetes mellitus E11.9
--- NOTE | 2021-10-22 15:45 | NMR_ITS ---
PROCEDURE INFORMATION: Exam: [facility] Exam date and time: 10/22/2021 3:45 PM Age: 51 years old Clinical indication: Shortness of breath; Patient HX: SOB, chf, diabetes, ; additional info: Rule out pe TECHNIQUE: Imaging protocol: Nuclear pulmonary ventilation with aerosol or gas was performed followed by perfusion. Views: Ventilation acquired with multiple projections. Perfusion acquired with multiple projections. Radiopharmaceutical: 5.5 mCi Tc-99m MAA (Macroaggregated Albumin), IV. 32.5 mCi Tc-99m DTPA (DTPA Aerosol), Inhalation. COMPARISON: CR XR chest 1V portable [id number] 10/21/2021 12:59 PM FINDINGS: Ventilation: Normal. No ventilation defects. Mild retention of tracer within large airways. Diminutive lung volume. Perfusion: Normal. No perfusion defects. There are no dominant mismatched defects. Mildly prominent photopenic area in the mediastinum which may reflect cardiac enlargement. NM/NM pul vent and perfus* [id number] IMPRESSION: Normal perfusion. No evidence of pulmonary embolism.
--- NOTE | 2021-10-22 16:02 | XRR_ITS ---
PROCEDURE INFORMATION: Exam: XR Left Shoulder Exam date and time: 10/22/2021 5:01 PM Age: 51 years old Clinical indication: Injury or trauma; Fall; Blunt trauma (contusions or hematomas); Shoulder; Left TECHNIQUE: Imaging protocol: XR Left shoulder. Views: 2 or more views. COMPARISON: CR XR chest 1V portable [id number] 10/21/2021 12:59 PM FINDINGS: Bones/joints: Minimal rotator cuff calcific tendinitis. Mild acromioclavicular joint osteoarthritis. Soft tissues: Normal. XR/XR shoulder LT min 2V* [id number] IMPRESSION: 1. Negative for fracture or dislocation 2. Minimal rotator cuff calcific tendinitis. 3. Mild acromioclavicular joint osteoarthritis.
--- NOTE | 2021-10-22 16:07 | XRR_ITS ---
PROCEDURE INFORMATION: Exam: XR Left Wrist Exam date and time: 10/22/2021 5:19 PM Age: 51 years old Clinical indication: Injury or trauma; Fall; Blunt trauma (contusions or hematomas); Wrist; Left TECHNIQUE: Imaging protocol: XR Left wrist. Views: 3 or more views. COMPARISON: No relevant prior studies available. FINDINGS: Bones/joints: Normal. Soft tissues: Normal. XR/XR wrist LT min 3V* [id number] IMPRESSION: No acute findings.
--- NOTE | 2021-10-22 16:07 | XRR_ITS ---
PROCEDURE INFORMATION: Exam: XR Left Forearm Exam date and time: 10/22/2021 5:21 PM Age: 51 years old Clinical indication: Injury or trauma; Fall; Blunt trauma (contusions or hematomas); Arm, lower; Left TECHNIQUE: Imaging protocol: XR Left forearm. Views: 2 views. COMPARISON: CR (UP EXM, ) 10/22/2021 5:19 PM FINDINGS: Bones/joints: Degenerative calcification of the triceps tendon. Soft tissues: Normal. XR/XR forearm LT 2V [id number] IMPRESSION: Negative for fracture or dislocation
--- NOTE | 2021-10-22 16:07 | XRR_ITS ---
PROCEDURE INFORMATION: Exam: XR Left Knee Exam date and time: 10/22/2021 5:12 PM Age: 51 years old Clinical indication: Injury or trauma; Fall; Blunt trauma; Knee; Left TECHNIQUE: Imaging protocol: XR Left knee. Views: 3 views. COMPARISON: CR (LOW EXM, ) 10/22/2021 5:07 PM FINDINGS: Bones/joints: Mild tricompartmental osteoarthritis of the knee. Soft tissues: Normal. XR/XR knee LT 3V* [id number] IMPRESSION: 1. Negative for fracture or dislocation. 2. Mild tricompartmental osteoarthritis of the knee.
--- NOTE | 2021-10-22 16:07 | XRR_ITS ---
PROCEDURE INFORMATION: Exam: XR Left Hip Exam date and time: 10/22/2021 5:07 PM Age: 51 years old Clinical indication: Injury or trauma; Fall; Blunt trauma (contusions or hematomas); Left; Hip TECHNIQUE: Imaging protocol: XR Left hip. Views: 2 or 3 views hip with pelvis when performed. Total images: 2 COMPARISON: CT kidney stone [id number] 07/25/2021 4:48 PM FINDINGS: Bones/joints: Unremarkable. No acute fracture. Soft tissues: Unremarkable. XR/XR hip LT 2-3V wo/w pel* [id number] IMPRESSION: No acute findings.
--- NOTE | 2021-10-22 16:07 | XRR_ITS ---
PROCEDURE INFORMATION: Exam: XR Left Foot Exam date and time: 10/22/2021 5:17 PM Age: 51 years old Clinical indication: Injury or trauma; Fall; Blunt trauma; Foot; Left TECHNIQUE: Imaging protocol: XR Left foot. Views: 3 or more views. COMPARISON: CR (LOW EXM, ) 10/22/2021 5:12 PM FINDINGS: Bones/joints: Calcified heel spur. Moderate 1st metatarsophalangeal joint osteoarthritis. Soft tissues: Normal. XR/XR foot LT min 3V* [id number] IMPRESSION: 1. Negative for fracture or dislocation. 2. Calcified heel spur. 3. Moderate 1st metatarsophalangeal joint osteoarthritis.
--- NOTE | 2021-10-22 16:07 | XRR_ITS ---
PROCEDURE INFORMATION: Exam: XR Left Femur Exam date and time: 10/22/2021 5:07 PM Age: 51 years old Clinical indication: Injury or trauma; Fall; Blunt trauma; Thigh or upper leg; Left TECHNIQUE: Imaging protocol: XR Left femur. Views: 2 views. COMPARISON: CT kidney stone [id number] 07/25/2021 4:48 PM FINDINGS: Bones/joints: Unremarkable. No acute fracture. Soft tissues: Unremarkable. XR/XR femur LT min 2V* [id number] IMPRESSION: 1. Negative for fracture or dislocation. 2. Moderate osteoarthritis of the hip.
--- NOTE | 2021-10-22 16:51 | PC.OT ---
OT services withheld this date. Patient not available, gone for X-ray.
[2021-10-22 17:55] LABS: Glucose Point of Care 136 mg/dL (70-110)
[2021-10-22] MEDS: ziprasidone hcl 40 mg Capsule PO (19:06)
[2021-10-22] MEDS: montelukast sodium 10 mg Tablet PO (21:01)
[2021-10-22] MEDS: atorvastatin 40 mg Tablet 80 MG PO (21:01)
[2021-10-23] VITALS: BP 128/77; PULSE 71; RESP 14; TEMP 36.8; O2SAT 100
[2021-10-23 04:00] VITALS: BP 138/77; PULSE 78; RESP 19; TEMP 36.8; O2SAT 90
[2021-10-23 05:34] LABS: Basophils % 0.6 %; Eosinophils % 0.6 %; Hemoglobin 8.2 g/dL (11.7-16.6); Lymphocytes # 0.7 10^3/uL (0.8-4.8); Lymphocytes % 12.7 %; Mean Corpuscular HGB Conc 26.5 g/dL (30.0-36.0); Mean Corpuscular Hemoglobin 22.6 pg (28.0-34.0); Mean Corpuscular Volume 85.4 fl (80-94); Mean Platelet Volume 10.6 fL (7.4-10.4); Monocytes # 0.5 10^3/uL (0.2-0.9); Monocytes % 9.6 %; Neutrophils # 3.88 10^3/uL (1.8-7.7); Neutrophils % 76.1 %; Nucleated Red Blood Cells % 0 %; Platelet Count 215 10^3/cmm (130-400); Red Blood Count 3.63 10^6/uL (4.1-5.3); Red Cell Distribution Width 19.9 % (12.1-15.1); White Blood Count 5.1 10^3/uL (4.0-10.0)
[2021-10-23 05:53] LABS: Anion Gap 12.9 (5-19); Blood Urea Nitrogen 36 mg/dL (6-20); Calcium 9.4 mg/dL (8.5-10.5); Carbon Dioxide 34 mmol/L (22-29); Chloride 100 mmol/L (98-107); Glomerular Filtration Rate 46.2 mL/min (90-130); Glucose 140 mg/dL (65-115); Magnesium 2.1 mg/dL (1.7-2.3); Osmolality Calculated 305 mOsm/kg (285-295); Potassium 4.9 mmol/L (3.5-5.1); Sodium 142 mmol/L (136-145)
[2021-10-23] MEDS: allopurinol 100 mg Tablet PO (06:15)
[2021-10-23] MEDS: pantoprazole DR 40 mg Tablet PO (06:15)
[2021-10-23] MEDS: lisinopril 5 mg Tablet PO (06:15)
[2021-10-23] MEDS: atenolol 50 mg Tablet PO (06:15)
[2021-10-23] MEDS: aspirin 81 mg EC Tablet PO (06:15)
[2021-10-23] MEDS: heparin 5,000 unit/mL INJ 1 mL 5000 UNIT SUBCUT (06:15)
[2021-10-23 06:39] LABS: Glucose Point of Care 136 mg/dL (70-110)
[2021-10-23 07:18] VITALS: BP 109/61; PULSE 64; RESP 18; TEMP 36.7; O2SAT 93
[2021-10-23 07:38] VITALS: PULSE 66; RESP 18; O2SAT 92
[2021-10-23] MEDS: bumetanide 0.25 mg/mL SDV 4 mL 1 MG IVP (07:49)
[2021-10-23] MEDS: ferrous sulfate EC 325 mg Tablet PO (07:50)
[2021-10-23] MEDS: tamsulosin 0.4 mg Capsule PO (07:50)
[2021-10-23] MEDS: sertraline 50 mg Tablet PO (07:50)
[2021-10-23] MEDS: sennosides-docusate Tablet 1 TAB PO (07:50)
[2021-10-23 10:54] LABS: Glucose Point of Care 135 mg/dL (70-110)
[2021-10-23 11:21] LABS: Glucose Point of Care 153 mg/dL (70-110)
[2021-10-23 12:00] VITALS: BP 129/67; PULSE 60; RESP 18; TEMP 36.7; O2SAT 100
--- NOTE | 2021-10-23 13:34 | P.DS_ITS ---
Discharge Providers Date of Admission: 10/21/21 15:07 Date of Discharge: October 23, 2021 Attending Provider at Admission: Bri Huggins MD Attending Provider at Discharge: Bri Huggins MD Primary Care Provider: Stewart Banks MD Diagnoses at Discharge Discharge Diagnosis (1) Cardiorenal syndrome: Status: Acute (2) Acute kidney injury: Status: Acute (3) Diastolic congestive heart failure: Status: Acute (4) Obstructive sleep apnea: Status: Acute (5) Diabetes mellitus: Status: Acute Reason for Visit Reason for Visit: ARM PAIN Brief History: Arnol Guzman is a 51 year old male with past medical history of CHF, anxiety, chronic iron deficiency anemia, diabetes type 2, stage II decubitus ulcer, hypertension, morbid obesity, obstructive sleep apnea, COPD who has had multiple admissions for dyspnea presents to the hospital today with complaint of shortness of breath.? Upon presentation he was diaphoretic as well.? Patient states that his cleaning lady might have disconnected his oxygen concentrator.? ER physician stated that patient was cyanotic on presentation but was saturating well on 2 L nasal cannula which is her normal baseline weight.? Patient briefly also reported chest pain rating to left upper extremity when he was short of breath.? Denied nausea, vomiting, fever, cough, chills.? Blood pressure on arr ival 106/52, pulse ox 99% on 2 L nasal cannula, respiratory 18, pulse 66, temperature 97.9.? EKG did not show acute ischemia or any other abnormalities.? Troponin in 40s range which is similar to his previous baseline.? Creatinine 1.8 from baseline of 1.52 weeks ago.? D-dimer elevated 1.89 therefore CTA was not obtained due to creatinine elevation.? BNP elevated at 4300.? Patient given 1 dose of Lasix.? Chest x-ray did not show pneumothorax or consolidation but cardiomegaly was present.? Patient states he is not compliant with his water pill at home.? He takes it from time to time.? He does not wear his CPAP either. Review of systems negative except noted in HPI. Of note patient was recently discharged from the hospital on October 10.? He had been admitted for fluid overload and had a chief complaint of orthopnea PND in her breath at that admission.? He was diagnosed with exacerbation of diastolic congestive heart failure and he was diuresed aggressively.? Creatinine started worsening with diuresis therefore diuretics were held for a few days.? He was complaining of dizziness on ambulation and with change of head position therefo re meclizine was added and PT was consulted.? We will also check another BMP and follow-up with his PCP outpatient.? Unfortunately insurance does not cover his BiPAP.? Patient has also been noncompliant with his CPAP continuously. Hospital Course Hospital Course Patient was admitted for acute on chronic diastolic congestive heart failure exacerbation and acute kidney injury, baseline 1.5. Patient endorsed noncompliance to diuretic at home. He first was considering going to a longterm facility but at this point would like to go home. He was diuresed with Bumex 1 mg IV twice daily. He had asked significant urine output and he felt back to baseline. VQ scan was also done which ruled out pulmonary embolism. Patient will be discharged home on his home medication regimen. No changes were made since patient came in due to noncompliance. He was encouraged to take his medications on time and to follow-up with his primary care physician. During hospital stay when transitioning from chair to bed patient did have a fall and x-rays were obtained for his entire left side which did not show any acute fra ctures. He will be sent home today. Patient's TEDDY resolved. Most likely cardiorenal syndrome due to fluid overload. Baseline is on 1.5. Day of discharge she was 1.6. I did attempt to call the sister but was unable to speak to her over the phone. Physical Exam Narrative: General: Alert oriented x3, large obese male laying in bed appearing comfortable on 2 L nasal cannula HEENT: Normocephalic, atraumatic, EOMI, breathing 2 L nasal cannula Cardio: Regular rate rhythm, muffled heart sounds due to body habitus, normal S1-S2, no murmurs Respiratory: Diminished breath sounds bilaterally, no gross wheezes or rhonchi.? No conversational dyspnea GI: Abdomen soft, nontender, obese rounded abdomen, bowel sounds + Behavior: Appropriate and cooperative Extremities: Trace edema bilateral lower extremities, chronic venous stasis changes. Urinary Catheter Management: Shaw: Cath Placed During This Visit: yes, but has since been removed by the nurse Reason for Continuing Indwelling Catheter: Decision to DC Catheter Urinary Catheter Date of Insertion: 10/21/21 Urinary Catheter Time of Insertion: 17:30 Date Urinary Catheter Removed: 10/23/21 Time Urinary Catheter Discontinued: 12:44 Discharge Data Studies Completed and Pending Completed Studies During Hospitalization Category Date Time Status XR chest 1V portable [id number] Stat Exams 10/21/21 12:53 Completed XR femur LT min 2V* [id number] Urgent Exams 10/22/21 16:07 Completed XR foot LT min 3V* [id number] Routine Exams 10/22/21 16:07 Completed XR forearm LT 2V [id number] Urgent Exams 10/22/21 16:07 Completed XR hip LT 2-3V wo/w pel* [id number] Urgent Exams 10/22/21 16:07 Completed XR knee LT 3V* [id number] Urgent Exams 10/22/21 16:07 Completed XR shoulder LT min 2V* [id number] Urgent Exams 10/22/21 16:02 Completed XR wrist LT min 3V* [id number] Urgent Exams 10/22/21 16:07 Completed NM pul vent and perfus* [id number] Routine Nuc Med 10/22/21 15:45 Completed Pending at discharge Category Date Time Status Sputum Culture and Gram Stain Stat Lab 10/21/21 15:40 Uncollected Radiology Impressions Chest X-Ray 10/21/21 12:53 Impression: Cardiomegaly. Pulmonary Perfusion Imaging 10/22/21 15:45 IMPRESSION: Normal perfusion. No evidence of pulmonary embolism. Shoulder X-Ray 10/22/21 16:02 IMPRESSION: 1. Negative for fracture or dislocation 2. Minimal rotator cuff calcific tendinitis. 3. Mild acromioclavicular joint osteoarthritis. Femur X-Ray 10/22/21 16:07 IMPRESSION: 1. Negative for fracture or dislocation. 2. Moderate osteoarthritis of the hip. Foot X-Ray 10/22/21 16:07 IMPRESSION: 1. Negative for fracture or dislocation. 2. Calcified heel spur. 3. Moderate 1st metatarsophalangeal joint osteoarthritis. Forearm X-Ray 10/22/21 16:07 IMPRESSION: Negative for fracture or dislocation Hip/Pelvis X-Ray 10/22/21 16:07 IMPRESSION: No acute findings. Knee X-Ray 10/22/21 16:07 IMPRESSION: 1. Negative for fracture or dislocation. 2. Mild tricompartmental osteoarthritis of the knee. Wrist X-Ray 10/22/21 16:07 IMPRESSION: No acute findings. Laboratory Results WBC 5.1 10^3/uL (4.0-10.0) 10/23/21 04:55 RBC 3.63 10^6/uL (4.1-5.3) L 10/23/21 04:55 Hgb 8.2 g/dL (11.7-16.6) L 10/23/21 04:55 Hct 31.0 % (42.0-52.0) L 10/23/21 04:55 MCV 85.4 fl (80-94) 10/23/21 04:55 MCH 22.6 pg (28.0-34.0) L 10/23/21 04:55 MCHC 26.5 g/dL (30.0-36.0) L 10/23/21 04:55 RDW 19.9 % (12.1-15.1) H 10/23/21 04:55 Plt Count 215 10^3/cmm (130-400) 10/23/21 04:55 MPV 10.6 fL (7.4-10.4) H 10/23/21 04:55 Neut % (Auto) 76.1 % 10/23/21 04:55 Lymph % (Auto) 12.7 % 10/23/21 04:55 [place] % (Auto) 9.6 % 10/23/21 04:55 Eos % (Auto) 0.6 % 10/23/21 04:55 Baso % (Auto) 0.6 % 10/23/21 04:55 Neut # (Auto) 3.88 10^3/uL (1.8-7.7) 10/23/21 04:55 Lymph # (Auto) 0.7 10^3/uL (0.8-4.8) L 10/23/21 04:55 [place] # (Auto) 0.5 10^3/uL (0.2-0.9) 10/23/21 04:55 Eos # (Auto) 0.0 10^3/uL (0.0-0.8) 10/23/21 04:55 Baso # (Auto) 0.0 10^3/uL (0.0-0.1) 10/23/21 04:55 Nucleated RBC % (auto) 0 % 10/23/21 04:55 Nucleated RBCs # 0.0 /100WBC 10/23/21 04:55 D-Dimer 1.89 ug/mIFEU (0-0.59) H 10/21/21 13:40 Sodium 142 mmol/L (136-145) 10/23/21 04:55 Potassium 4.9 mmol/L (3.5-5.1) 10/23/21 04:55 Chloride 100 mmol/L (98-107) 10/23/21 04:55 Carbon Dioxide 34 mmol/L (22-29) H 10/23/21 04:55 Anion Gap 12.9 (5-19) 10/23/21 04:55 BUN 36 mg/dL (6-20) H 10/23/21 04:55 Creatinine 1.6 mg/dL (0.7-1.2) H 10/23/21 04:55 GFR Calculation 46.2 mL/min (90-130) L 10/23/21 04:55 Glucose 140 mg/dL (65-115) H 10/23/21 04:55 POC Glucose 153 mg/dL (70-110) H 10/23/21 11:09 Calculated Osmolality 305 mOsm/kg (285-295) H 10/23/21 04:55 Calcium 9.4 mg/dL (8.5-10.5) 10/23/21 04:55 Magnesium 2.1 mg/dL (1.7-2.3) 10/23/21 04:55 Total Bilirubin 1.0 mg/dL (0.15-1.2) 10/21/21 13:15 AST 19 U/L (0-40) 10/21/21 13:15 ALT 13 U/L (0-41) 10/21/21 13:15 Alkaline Phosphatase 327 IU/L (40-130) H 10/21/21 13:15 Troponin T Baseline 43 ng/L (0-15) H 10/21/21 13:15 Troponin T 120 Minute 44.41 ng/L (0-15) H 10/21/21 15:30 Delta Troponin T 1.41 ABS# (0-10) 10/21/21 15:30 Troponin T Hi Sens 6Hr 41.16 ng/L (0-15) H 10/21/21 18:54 Troponin T Hi Sens 6Hr Delta -1.84 ng/L (0-12) L 10/21/21 18:54 NT-Pro-B Natriuret Pep 4396 pg/mL (0-125) H 10/21/21 13:15 Total Protein 7.4 g/dL (6.6-8.7) 10/21/21 13:15 Albumin 4.4 g/dL (3.5-5.2) 10/21/21 13:15 Globulin 3.0 g/dL (1.3-4.6) 10/21/21 13:15 Lipase 32 U/L (13-60) 10/21/21 13:15 Procalcitonin 0.15 ng/mL (0-0.5) 10/21/21 13:15 SARS-CoV-2 Ag (Rapid) Negative (Negative) 10/21/21 13:10 Vitals Last Vital Signs Temp 98.0 F 10/23/21 12:00 Pulse 60 10/23/21 12:00 Resp 18 10/23/21 12:00 BP 129/67 10/23/21 12:00 Pulse Ox 100 10/23/21 12:00 Discharge Plan Discharge Patient Disposition: Home Condition: Stable Prescriptions: Continued albuterol sulfate 90 mcg/actuation HFA aerosol inhaler 2 puff inhalation QID PRN (Reason: Shortness Of Breath) 0RF atorvastatin [Lipitor] 80 mg Tablet 80 mg PO BEDTIME 0RF omeprazole 40 mg Capsule,Delayed Release(Dr/Ec) 40 mg PO QAM 0RF montelukast [Singulair] 10 mg Tablet 10 mg PO BEDTIME 0RF aspirin 81 mg Tablet,Delayed Release (Dr/Ec) 81 mg PO QAM 0RF Dulera 200-5 mcg/actuation HFA aerosol inhaler 2 puff INHALATION BID 0RF allopurinol 100 mg tablet 100 mg PO QAM 0RF lisinopril 5 mg tablet 5 mg PO QAM 0RF Janumet 50-1,000 mg tablet 1 tab PO BID 0RF potassium chloride [Klor-Con M20] 20 mEq Tablet,Er Particles/Crystals 40 meq PO DAILY Qty: 30 0RF Hold Instructions: Resume on 10/14/21. atenolol 50 mg Tablet 50 mg PO QAM Qty: 30 0RF sennosides-docusate sodium [Stool Softener-Laxative] 8.6-50 mg Tablet 1 tab PO DAILY Qty: 30 2RF bumetanide 1 mg tablet 2 mg PO DAILY Qty: 60 0RF Hold Instructions: Resume on 10/14/21. ferrous sulfate 325 mg (65 mg iron) tablet 325 mg PO BID 0RF tamsulosin 0.4 mg capsule 0.4 mg PO DAILY 0RF ziprasidone HCl 40 mg capsule 40 mg PO DAILY@17 0RF sertraline 50 mg tablet 50 mg PO DAILY 0RF acetaminophen [Tylenol] 325 mg capsule 325 mg PO Q6H PRN (Reason: pain) Qty: 14 0RF albuterol sulfate 2.5 mg /3 mL (0.083 %) Solution For Nebulization 2.5 mg INHALATION Q6H PRN (Reason: Shortness Of Breath) 0RF Levemir FlexTouch U-100 Insuln 100 unit/mL (3 mL) insulin pen 6 unit SUBCUT DAILY 0RF meclizine 25 mg Tablet 25 mg PO TID Qty: 30 0RF No Action (DME) oxygen-air delivery systems Device See Rx Instructions .ROUTE .MEDSUPPLY Qty: 1 0RF Rx Instructions: As directed Discharge Orders: Discharge Order (Routine); Ordered 10/23/21 Ordered By: Bri Huggins Other Ambulatory Orders: Basic Metabolic Panel (Routine) Timeframe: 3 Days Facility: [facility] - Location: Lab - Main Lab Ordered By: Bri Huggins Referrals: Stewart Banks MD [Primary Care Provider] - 2 weeks (PLEASE CALL [phone] TO SET UP A FOLLOW-UP APPOINTMENT WITH DR. BANKS WITHIN THE NEXT 2 WEEKS. ) Discharge Diet: Cardiac, Diabetic and Low Salt Discharge Activity: Resume usual activity Patient Instructions: Type 2 Diabetes, Heart Failure (DC), Acute Kidney Injury (DC), Iron Rich Diet (DC), Low-Sodium Diet (DC), Opioid Safety Discharge Attestations Time Spent in Discharge Care*: less than 30 min Status at Discharge: Cognitive status at discharge: cognitively intact , Behavioral status at discharge: cooperative , Quality Metrics Clinical Quality Measures [ No reported AMI, CVA or VTE this stay] Coding Level of Care Code Acute g FW DC note Diagnoses Cardiorenal syndrome I13.10 Acute kidney injury N17.9 Diastolic congestive heart failure I50.30 Obstructive sleep apnea G47.33 Diabetes mellitus E11.9
== END 2021-10-23 14:51 | disposition home or self-care (01) | DRG 291 ==
LOC: ER 13:07 → MEDSURG 15:52
PROVIDERS: Admitting Provider Internal Medicine; Emergency Provider Emergency Medicine; PCP Family Medicine; Visit Provider Internal Medicine
DX: I13.0 Hypertensive heart and chronic kidney disease with heart failure and stage 1 through stage 4 chronic kidney disease, or unspecified chronic kidney disease (principal); I50.33 Acute on chronic diastolic (congestive) heart failure; N17.9 Acute kidney failure, unspecified; Z68.45 Body mass index [BMI] 70 or greater, adult; N18.9 Chronic kidney disease, unspecified; E11.22 Type 2 diabetes mellitus with diabetic chronic kidney disease; T50.1X6A Underdosing of loop [high-ceiling] diuretics, initial encounter; R06.02 Shortness of breath; E66.01 Morbid (severe) obesity due to excess calories; R79.1 Abnormal coagulation profile; M79.602 Pain in left arm; E78.2 Mixed hyperlipidemia; G47.33 Obstructive sleep apnea (adult) (pediatric); J44.9 Chronic obstructive pulmonary disease, unspecified; W08.XXXA Fall from other furniture, initial encounter; Y92.230 Patient room in hospital as the place of occurrence of the external cause; D50.9 Iron deficiency anemia, unspecified; Z79.4 Long term (current) use of insulin; Z79.82 Long term (current) use of aspirin; Z91.14 Patient's other noncompliance with medication regimen
CPT/HCPCS: 36415; 36416; 51702; 71045; 73030; 73090; 73110; 73502; 73552; 73562; 73630; 78014; 80048; 80053; 82962; 83690; 83735; 83880; 84145; 84484; 85025; 85378; 87426; 93005; 94664; 94762; 96372; 96374; 96375; 97161; 97530; 99285; A9540; A9567; J1644; J1940; J3490

== ENCOUNTER 2021-10-25 03:08 | Emergency (ER) | payer MEDICAID, SELFPAY ==
[2021-10-25 03:09] VITALS: BP 104/81; PULSE 79; RESP 26; TEMP 36.8; O2SAT 92; BMI 71.8
--- NOTE | 2021-10-25 03:10 | ECG_ITS ---
[facility] Test Date: 2021-10-25 Pat Name: Arnol Guzman Department: Room: Gender: Male Installation Drafter: : 1970 Requested By: Jesús Pickard Order Number: [id number] Bernardino MD: Tay Mireles M.D. Measurements Intervals [place] Rate: 78 P: 69 AR: 145 QRS: 95 QRSD: 97 T: 70 QT: 374 QTc: 427 Interpretive Statements SINUS RHYTHM INDETERMINATE AXIS LOW QRS VOLTAGE IN PRECORDIAL LEADS [QRS DEFLECTION < 1.0 mV IN CHEST LEADS] INCOMPLETE RIGHT BUNDLE BRANCH BLOCK [90+ ms QRS DURATION, TERMINAL R IN V1/V2, 40+ ms S IN I/aVL/V4/V5/V6] Compared to ECG 10/21/2021 20:29:11 No significant changes Electronically Signed On 10-25-2021 18:54:48 CDT by Tay Mireles M.D. [email or web address]
--- NOTE | 2021-10-25 03:10 | XRR_ITS ---
PROCEDURE INFORMATION: Exam: XR Chest Exam date and time: 10/25/2021 3:13 AM Age: 51 years old Clinical indication: Pain; Dyspnea; On breathing; Additional info: Cp TECHNIQUE: Imaging protocol: XR of the chest. Views: 1 view. COMPARISON: CR XR chest 1V portable [id number] 10/21/2021 12:59 PM FINDINGS: Lungs: No focal airspace disease. Pleural spaces: Unremarkable. No pleural effusion. No pneumothorax. Heart/Mediastinum: Cardiomediastinal silhouette is within normal limits. Bones/joints: Unremarkable. XR/XR chest 1V portable [id number] IMPRESSION: No acute cardiopulmonary abnormality.
--- NOTE | 2021-10-25 03:11 | ED_ITS ---
HPI - Chest Pain General: Chief Complaint: Shortness of Breath/Dyspnea Stated Complaint: SOB Source: patient and EMS Mode of arrival: EMS Limitations: no limitations History of Present Illness: 51-year-old male who is very well-known to the ER has a history of morbid obesity along with congestive heart failure states he woke up roughly 3 to 4 hours ago with a sharp pain in the center of his chest is worse with palpation patient called EMS he states that since then his pain is resolved and is currently pain-free he is on oxygen chronically just is discharged in the hospital 2 days ago. Denies any increasing shortness of breath. Associated symptoms: Deny abdominal pain, dyspnea, fever(s), nausea or vomiting Review of Systems Const: Denies: fever(s), chills, body aches or change in appetite Eyes: Denies: blurry vision or eye discomfort ENMT: Denies: throat pain or dental pain Card: Reports: chest pain Resp: Denies: dyspnea GI: Denies: abdominal pain, nausea, vomiting or diarrhea : Denies: dysuria Musc: Denies: neck pain or back pain Skin/Breast: Denies: rash Neuro: Denies: headache(s) Psych: Denies: depression Mendel/Lymph: Denies: easy bruising All/Imm: Denies: urticaria PFSH ED PFSH: Medical History Acute respiratory failure with hypoxia and hypercapnia Anemia -has chronic iron deficiency anemia, baseline Hg is around 9-10 Anxiety Chest pain Chest pain CHF (congestive heart failure) -Echo (07/2019): EF=68%, normal diastolic function, no RWMA -on oral lasix -no acute exacerbation currently CHF (congestive heart failure) Chronic anemia Chronic respiratory failure Decubitus ulcer limited to breakdown of skin (stage 2) Depression Diabetes -NIDDM type II -A1c (11/2019): 8.2 -Accuchecks, ISS, hypoglycemia precautions -consistent carb diet -anticipate hyperglycemia with steroid use Gout Hyperlipemia, mixed Hypertension -VSS; continue to monitor -continue oral antihypertensives Hypertension Major depressive disorder, recurrent, moderate Morbid (severe) obesity due to excess calories Morbid obesity OPAL (obstructive sleep apnea) -in the process of getting CPAP set up Pneumonia Psychiatric care Transient cerebral ischemia Surgical History History of adenoidectomy History of hernia repair History of tonsillectomy History of umbilical hernia repair Family History Mother Hypertension CAD (coronary artery disease) Stroke Social History Smoking and tobacco status: never smoked Second hand smoke exposure: Yes Alcohol intake: never Adopted: No Caregiver/support person: No Lives independently: Yes Household members: family and friend(s) Housing: Manufactured/Mobile home Marital status: Single Number of children: 0 Number of grandchildren: 0 Highest education level completed: 8th Grade service: No Current occupational status: disabled Pets and animals: No History of recent travel: No Leisure activites: other Leisure activities details: play card games Sexually active: No Current gender identity: Male Yolanda/Presybeterian: Other Special yolanda needs: No Agree to transfusion: Yes Financial difficulty paying for basics: Hard Physical Exam Const: COMMON NORMALS: patient oriented x3 NUTRITIONAL APPEARANCE: obese HENMT: COMMON NORMALS: normocephalic and atraumatic HEAD & SCALP: normocephalic and atraumatic Eye: COMMON NORMALS: Equal, round and reactive pupils present and EOMs intact bilaterally PUPIL: Yes Equal, round and reactive pupils present Neck/C-Spine: COMMON NORMALS: full ROM and supple Chest: COMMONS NORMALS: normal inspection of the chest and normal palpation of entire chest wall Resp: COMMON NORMALS: normal respiratory effort, No retractions, No use of accessory muscles and clear to auscultation bilaterally AUSCULTATION: clear to auscultation bilaterally Cardio: COMMON NORMALS: regular rate, regular rhythm and No murmurs present (Cardio) RATE: regular rate RHYTHM: regular rhythm GI: COMMON NORMALS: Normal to inspection, nondistended, normoactive bowel sounds present, Soft to palpation, non-tender and no masses PALPATION: Yes Soft to palpation Extremity: COMMON NORMALS: normal to inspection and full ROM Neuro: COMMON NORMALS: patient oriented x3, moves all extremities and no focal motor deficits Psych: COMMON NORMALS: mental status grossly normal, Normal thought process present and cooperative THOUGHT PROCESS: Normal thought process present Skin: COMMON NORMALS: no rashes or lesions noted and no wounds GENERAL SKIN EXAM: no rashes or lesions noted Course Vital Signs: Vital signs: Vital Signs Temperature 98.2 F 10/25/21 03:09 Pulse Rate 74 10/25/21 03:25 Respiratory Rate 21 H 10/25/21 03:25 Blood Pressure 104/81 10/25/21 03:25 Pulse Oximetry 90 10/25/21 03:25 MDM - Chest Pain Medical Decision Making Patient presents with chest pain that atypical in nature likely muscular as he is was point tender he is pain-free here his initial troponin is at his baseline he is stable for discharge no signs of pulmonary embolism or acute coronary syndrome he is to follow-up his PCP return if worsening. Lab Data : 10/25/21 03:10 10/25/21 03:10 Laboratory Results WBC 5.4 10^3/uL (4.0-10.0) 10/25/21 03:10 RBC 3.98 10^6/uL (4.1-5.3) L 10/25/21 03:10 Hgb 8.8 g/dL (11.7-16.6) L 10/25/21 03:10 Hct 33.2 % (42.0-52.0) L 10/25/21 03:10 MCV 83.4 fl (80-94) 10/25/21 03:10 MCH 22.1 pg (28.0-34.0) L 10/25/21 03:10 MCHC 26.5 g/dL (30.0-36.0) L 10/25/21 03:10 RDW 20.0 % (12.1-15.1) H 10/25/21 03:10 Plt Count 212 10^3/cmm (130-400) 10/25/21 03:10 MPV 10.3 fL (7.4-10.4) 10/25/21 03:10 Neut % (Auto) 78.8 % 10/25/21 03:10 Lymph % (Auto) 12.6 % 10/25/21 03:10 [place] % (Auto) 7.4 % 10/25/21 03:10 Eos % (Auto) 0.6 % 10/25/21 03:10 Baso % (Auto) 0.4 % 10/25/21 03:10 Neut # (Auto) 4.26 10^3/uL (1.8-7.7) 10/25/21 03:10 Lymph # (Auto) 0.7 10^3/uL (0.8-4.8) L 10/25/21 03:10 [place] # (Auto) 0.4 10^3/uL (0.2-0.9) 10/25/21 03:10 Eos # (Auto) 0.0 10^3/uL (0.0-0.8) 10/25/21 03:10 Baso # (Auto) 0.0 10^3/uL (0.0-0.1) 10/25/21 03:10 Nucleated RBC % (auto) 0 % 10/25/21 03:10 Nucleated RBCs # 0.0 /100WBC 10/25/21 03:10 Sodium 141 mmol/L (136-145) 10/25/21 03:10 Potassium 4.4 mmol/L (3.5-5.1) 10/25/21 03:10 Chloride 97 mmol/L (98-107) L 10/25/21 03:10 Carbon Dioxide 33 mmol/L (22-29) H 10/25/21 03:10 Anion Gap 15.4 (5-19) 10/25/21 03:10 BUN 35 mg/dL (6-20) H 10/25/21 03:10 Creatinine 1.6 mg/dL (0.7-1.2) H 10/25/21 03:10 GFR Calculation 46.2 mL/min (90-130) L 10/25/21 03:10 Glucose 127 mg/dL (65-115) H 10/25/21 03:10 Calculated Osmolality 302 mOsm/kg (285-295) H 10/25/21 03:10 Calcium 9.8 mg/dL (8.5-10.5) 10/25/21 03:10 Total Bilirubin 1.2 mg/dL (0.15-1.2) 10/25/21 03:10 AST 18 U/L (0-40) 10/25/21 03:10 ALT 15 U/L (0-41) 10/25/21 03:10 Alkaline Phosphatase 346 IU/L (40-130) H 10/25/21 03:10 Troponin T Baseline 38 ng/L (0-15) H 10/25/21 03:10 Total Protein 8.2 g/dL (6.6-8.7) 10/25/21 03:10 Albumin 4.1 g/dL (3.5-5.2) 10/25/21 03:10 Globulin 4.1 g/dL (1.3-4.6) 10/25/21 03:10 EKG Data EKG 1: I personally reviewed and interpreted this EKG as follows: EKG interpretation date: 10/25/21 EKG interpretation time: 03:14 Interpretation: nsr hr [address] or t wave abnormalities qrs 97 qtc 407 Discharge Plan Discharge Patient Disposition: Home Clinical Impression: Atypical chest pain Condition: Stable Prescriptions: No Action (DME) oxygen-air delivery systems Device See Rx Instructions .ROUTE .MEDSUPPLY Qty: 1 0RF Rx Instructions: As directed albuterol sulfate 90 mcg/actuation HFA aerosol inhaler 2 puff inhalation QID PRN (Reason: Shortness Of Breath) 0RF atorvastatin [Lipitor] 80 mg Tablet 80 mg PO BEDTIME 0RF omeprazole 40 mg Capsule,Delayed Release(Dr/Ec) 40 mg PO QAM 0RF montelukast [Singulair] 10 mg Tablet 10 mg PO BEDTIME 0RF aspirin 81 mg Tablet,Delayed Release (Dr/Ec) 81 mg PO QAM 0RF Dulera 200-5 mcg/actuation HFA aerosol inhaler 2 puff INHALATION BID 0RF allopurinol 100 mg tablet 100 mg PO QAM 0RF lisinopril 5 mg tablet 5 mg PO QAM 0RF Janumet 50-1,000 mg tablet 1 tab PO BID 0RF potassium chloride [Klor-Con M20] 20 mEq Tablet,Er Particles/Crystals 40 meq PO DAILY Qty: 30 0RF Hold Instructions: Resume on 10/14/21. atenolol 50 mg Tablet 50 mg PO QAM Qty: 30 0RF sennosides-docusate sodium [Stool Softener-Laxative] 8.6-50 mg Tablet 1 tab PO DAILY Qty: 30 2RF bumetanide 1 mg tablet 2 mg PO DAILY Qty: 60 0RF Hold Instructions: Resume on 10/14/21. ferrous sulfate 325 mg (65 mg iron) tablet 325 mg PO BID 0RF tamsulosin 0.4 mg capsule 0.4 mg PO DAILY 0RF ziprasidone HCl 40 mg capsule 40 mg PO DAILY@17 0RF sertraline 50 mg tablet 50 mg PO DAILY 0RF acetaminophen [Tylenol] 325 mg capsule 325 mg PO Q6H PRN (Reason: pain) Qty: 14 0RF albuterol sulfate 2.5 mg /3 mL (0.083 %) Solution For Nebulization 2.5 mg INHALATION Q6H PRN (Reason: Shortness Of Breath) 0RF Levemir FlexTouch U-100 Insuln 100 unit/mL (3 mL) insulin pen 6 unit SUBCUT DAILY 0RF meclizine 25 mg Tablet 25 mg PO TID Qty: 30 0RF Discharge Orders: Discharge ED (Routine); Ordered 10/25/21 Ordered By: Jesús Pickard Referrals: Stewart Rosario MD [Primary Care Provider] - Discharge Diet: Advance as tolerated Discharge Activity: Resume usual activity Patient Instructions: Chest Pain (ED) Coding Level of Care Code ED Catheterization Laboratory Technician for Chg Fwd Exam Comprehensive
[2021-10-25 03:25] VITALS: BP 104/81; PULSE 74; RESP 21; O2SAT 90
[2021-10-25 03:34] LABS: Basophils % 0.4 %; Eosinophils % 0.6 %; Hematocrit 33.2 % (42.0-52.0); Hemoglobin 8.8 g/dL (11.7-16.6); Lymphocytes # 0.7 10^3/uL (0.8-4.8); Lymphocytes % 12.6 %; Mean Corpuscular HGB Conc 26.5 g/dL (30.0-36.0); Mean Corpuscular Hemoglobin 22.1 pg (28.0-34.0); Mean Corpuscular Volume 83.4 fl (80-94); Mean Platelet Volume 10.3 fL (7.4-10.4); Monocytes # 0.4 10^3/uL (0.2-0.9); Monocytes % 7.4 %; Neutrophils # 4.26 10^3/uL (1.8-7.7); Neutrophils % 78.8 %; Nucleated Red Blood Cells % 0 %; Platelet Count 212 10^3/cmm (130-400); Red Blood Count 3.98 10^6/uL (4.1-5.3); White Blood Count 5.4 10^3/uL (4.0-10.0)
[2021-10-25 03:55] LABS: Alanine Aminotransferase 15 U/L (0-41); Albumin Level 4.1 g/dL (3.5-5.2); Alkaline Phosphatase 346 IU/L (40-130); Anion Gap 15.4 (5-19); Aspartate Amino Transferase 18 U/L (0-40); Blood Urea Nitrogen 35 mg/dL (6-20); Calcium 9.8 mg/dL (8.5-10.5); Carbon Dioxide 33 mmol/L (22-29); Chloride 97 mmol/L (98-107); Globulin 4.1 g/dL (1.3-4.6); Glomerular Filtration Rate 46.2 mL/min (90-130); Glucose 127 mg/dL (65-115); Osmolality Calculated 302 mOsm/kg (285-295); Potassium 4.4 mmol/L (3.5-5.1); Sodium 141 mmol/L (136-145); Total Bilirubin 1.2 mg/dL (0.15-1.2); Total Protein 8.2 g/dL (6.6-8.7)
[2021-10-25 03:56] LABS: Troponin(5th) Baseline 38 ng/L (0-15)
[2021-10-25 05:03] VITALS: BP 124/47; PULSE 75; RESP 19; O2SAT 95
== END 2021-10-25 09:30 | disposition home or self-care (01) ==
PROVIDERS: Emergency Provider Emergency Medicine; PCP Family Medicine
DX: R07.89 Other chest pain (principal); I50.9 Heart failure, unspecified; E11.9 Type 2 diabetes mellitus without complications; I10 Essential (primary) hypertension; E66.01 Morbid (severe) obesity due to excess calories; Z68.45 Body mass index [BMI] 70 or greater, adult; Z86.73 Personal history of transient ischemic attack (TIA), and cerebral infarction without residual deficits; E78.2 Mixed hyperlipidemia
CPT/HCPCS: 71045; 80053; 84484; 85025; 93005; 99283

== ENCOUNTER 2021-11-03 07:22 | Inpatient (IN) | payer MEDICAID, SELFPAY ==
[2021-11-03] VITALS (90 sets, daily range): BP systolic 106–151; BP diastolic 49–76; PULSE 57–98; RESP 0–27; TEMP 36.7–37.2; O2SAT 85–100; BMI 75.5
--- NOTE | 2021-11-03 07:23 | ED_ITS ---
HPI - General Adult General: Chief complaint: Headache Stated complaint: HEADACHE VOMITING Time Seen by Provider: 11/03/21 07:22 Source: patient Mode of arrival: EMS Limitations: no limitations History of Present Illness: 51-year-old male presents emergency room with nausea vomiting headache generally not feeling well. He on arrival EMS had him on 6 L by nasal cannula usually uses 2 L. Patient is here frequently has significant problems hypercapnic respiratory failure, congestive heart failure. Patient is severely morbidly obese and has difficult time managing his own cares. Despite this he refuses to consider [facility]p level of care to help manage his chronic medical problems. Onset (ago): hour(s) Location: head Severity: severe Relieving factors: none Exacerbating factors: none Associated symptoms: Reports confusion, cough, headache(s), short of breath and weakness; Deny chest pain, diaphoresis, decreased appetite, dyspnea, fevers/chills, malaise, nausea, rash, palpitations, seizures, syncope or vomiting Treatments prior to arrival: other Review of Systems Const: Denies: malaise or diaphoresis ENMT: Denies: throat pain, ear or mastoid pain, nasal discharge or nasal congestion Card: Denies: chest pain, palpitations or syncope Resp: Denies: dyspnea GI: Denies: nausea or vomiting : Denies: flank pain, dysuria, urinary frequency or urinary urgency Skin/Breast: Denies: rash Neuro: Reports: headache(s) and confusion PFS ED PFSH: Medical History Acute respiratory failure with hypoxia and hypercapnia Anemia -has chronic iron deficiency anemia, baseline Hg is around 9-10 Anxiety Chest pain Chest pain CHF (congestive heart failure) -Echo (07/2019): EF=68%, normal diastolic function, no RWMA -on oral lasix -no acute exacerbation currently CHF (congestive heart failure) Chronic anemia Chronic respiratory failure Decubitus ulcer limited to breakdown of skin (stage 2) Depression Diabetes -NIDDM type II -A1c (11/2019): 8.2 -Accuchecks, ISS, hypoglycemia precautions -consistent carb diet -anticipate hyperglycemia with steroid use Diabetes mellitus Gout History of CVA (cerebrovascular accident) Hyperlipemia, mixed Hypertension -VSS; continue to monitor -continue oral antihypertensives Hypertension Major depressive disorder, recurrent, moderate Morbid (severe) obesity due to excess calories Morbid obesity OPAL (obstructive sleep apnea) -in the process of getting CPAP set up Pneumonia Psychiatric care Transient cerebral ischemia Surgical History History of adenoidectomy History of hernia repair History of tonsillectomy History of umbilical hernia repair Family History Mother Hypertension CAD (coronary artery disease) Stroke Social History Smoking and tobacco status: never smoked Second hand smoke exposure: Yes Alcohol intake: never Adopted: No Caregiver/support person: No Lives independently: Yes Household members: family and friend(s) Housing: Manufactured/Mobile home Marital status: Single Number of children: 0 Number of grandchildren: 0 Highest education level completed: 8th Grade service: No Current occupational status: disabled Pets and animals: No History of recent travel: No Leisure activites: other Leisure activities details: play card games Sexually active: No Current gender identity: Male Yolanda/Lutheran: Other Special yolanda needs: No Agree to transfusion: Yes Financial difficulty paying for basics: Hard Physical Exam Const: COMMON NORMALS: no acute distress GENERAL APPEARANCE: cooperative and comfortable ORIENTATION/CONSCIOUSNESS: Yes awake, Yes oriented to person, Yes oriented to place and Yes oriented to time HENMT: COMMON NORMALS: normocephalic and atraumatic HEAD & SCALP: normocephalic and atraumatic Resp: EFFORT & INSPECTION: Yes uses accessory muscles AUSCULTATION: crackles and diminished lung sounds Cardio: COMMON NORMALS: regular rate, regular rhythm and No murmurs present (Cardio) RATE: regular rate RHYTHM: regular rhythm GI: COMMON NORMALS: Soft to palpation and No hepatosplenomegaly present AUSCULTATION: Yes normoactive bowel sounds PALPATION: Yes Soft to palpation, No Tenderness to palpation present (GI), No Guarding due to palpation present (GI) and Yes No hepatosplenomegaly present OTHER: Anasarca to the level of the umbilicus Extremity: GENERAL: Yes edema Neuro: SENSORIUM/ORIENTATION: Yes oriented to person, Yes oriented to place and Yes oriented to time Skin: COMMON NORMALS: no rashes or lesions noted GENERAL SKIN EXAM: no rashes or lesions noted Course Vital Signs: Vital signs: Vital Signs Temperature 97.7 F 11/06/21 15:43 Pulse Rate 65 11/06/21 15:43 Respiratory Rate 18 11/06/21 15:43 Blood Pressure 166/70 11/06/21 15:43 Pulse Oximetry 92 11/06/21 15:43 MDM - General Adult Medical Decision Making Initially on arrival we decreased patient's oxygen. He deteriorated after this and blood gases done shows he is in hypercapnic respiratory failure given. Patient started on BiPAP and given Lasix. Discussed with hospitalist orders written. Medical Records I reviewed the patient's medical records. Lab Data I reviewed the patient's lab results. : 11/06/21 04:50 11/06/21 04:50 Radiology Impressions Chest X-Ray 11/03/21 07:39 IMPRESSION: Low lung volumes are present, accentuating cardiac size and pulmonary markings. Abdomen/Pelvis CT 11/03/21 09:58 IMPRESSION: 1. Severe extensive soft tissue anasarca and mesenteric edema. 2. Small amount of ascites within the abdomen and pelvis. 3. Quality of this examination is limited by body habitus and the soft tissue anasarca. 4. Subcentimeter nodules at the lung bases. These have been present on prior studies. On several examinations these nodules are obscured because of fluid and atelectasis. 5. Hepatomegaly and splenomegaly. 6. No free air identified. Laboratory Results WBC 4.8 10^3/uL (4.0-10.0) 11/03/21 08:09 RBC 3.93 10^6/uL (4.1-5.3) L 11/03/21 08:09 Hgb 8.9 g/dL (11.7-16.6) L 11/03/21 08:09 Hct 33.9 % (42.0-52.0) L 11/03/21 08:09 MCV 86.3 fl (80-94) 11/03/21 08:09 MCH 22.6 pg (28.0-34.0) L 11/03/21 08:09 MCHC 26.3 g/dL (30.0-36.0) L 11/03/21 08:09 RDW 20.4 % (12.1-15.1) H 11/03/21 08:09 Plt Count 176 10^3/cmm (130-400) 11/03/21 08:09 MPV 10.2 fL (7.4-10.4) 11/03/21 08:09 Neut % (Auto) 76.4 % 11/03/21 08:09 Lymph % (Auto) 13.8 % 11/03/21 08:09 [place] % (Auto) 8.2 % 11/03/21 08:09 Eos % (Auto) 1.0 % 11/03/21 08:09 Baso % (Auto) 0.4 % 11/03/21 08:09 Neut # (Auto) 3.65 10^3/uL (1.8-7.7) 11/03/21 08:09 Lymph # (Auto) 0.7 10^3/uL (0.8-4.8) L 11/03/21 08:09 [place] # (Auto) 0.4 10^3/uL (0.2-0.9) 11/03/21 08:09 Eos # (Auto) 0.1 10^3/uL (0.0-0.8) 11/03/21 08:09 Baso # (Auto) 0.0 10^3/uL (0.0-0.1) 11/03/21 08:09 Nucleated RBC % (auto) 0 % 11/03/21 08:09 Nucleated RBCs # 0.0 /100WBC 11/03/21 08:09 Specimen Type Arterial 11/03/21 13:28 Sample Site Radial, left 11/03/21 13:28 ABG pH 7.31 (7.35-7.45) L 11/03/21 13:28 ABG pCO2 72.2 mmHg (35-45) H* 11/03/21 13:28 ABG pO2 53.9 mmHg (80.0-100.0) L 11/03/21 13:28 ABG HCO3 36.6 mmol/L (22-26) H 11/03/21 13:28 ABG O2 Saturation 85.7 11/03/21 13:28 ABG Base Excess 8.7 mmol/L (-2.0-2.0) H 11/03/21 13:28 Luis Test Pos 11/03/21 13:28 A-a O2 Gradient 9.6 mmHg (5-10) 11/03/21 13:28 Hematocrit 27.5 % (42-52) L 11/03/21 13:28 Hgb O2 Saturation 83.7 % (95-100) L 11/03/21 13:28 Carboxyhemoglobin 1.6 %THgb (0.4-20.1) 11/03/21 13:28 Methemoglobin 0.7 % (0.4-1.5) 11/03/21 13:28 Total Hemoglobin 9.0 g/dL (14-18) L 11/03/21 13:28 Sodium 142.0 mmol/L (131-143) 11/03/21 13:28 Potassium 4.6 mmol/L (3.5-5.0) 11/03/21 13:28 Glucose 136.0 mg/dL (70-115) H 11/03/21 13:28 Ionized Calcium 1.3 mmol/L (1.1-1.4) 11/03/21 13:28 O2 Delivery Device Bipap 11/03/21 13:28 O2 Liters/Min 6.0 % 11/03/21 10:40 FiO2 30.0 % 11/03/21 13:28 Hospital Director ID Cak 11/03/21 13:28 Sodium 139 mmol/L (136-145) 11/03/21 08:09 Potassium 5.0 mmol/L (3.5-5.1) 11/03/21 08:09 Chloride 97 mmol/L (98-107) L 11/03/21 08:09 Carbon Dioxide 29 mmol/L (22-29) 11/03/21 08:09 Anion Gap 18.0 (5-19) 11/03/21 08:09 BUN 27 mg/dL (6-20) H 11/03/21 08:09 Creatinine 1.4 mg/dL (0.7-1.2) H 11/03/21 08:09 GFR Calculation 53.9 mL/min (90-130) L 11/03/21 08:09 Glucose 153 mg/dL (65-115) H 11/03/21 08:09 Calculated Osmolality 296 mOsm/kg (285-295) H 11/03/21 08:09 Calcium 8.9 mg/dL (8.5-10.5) 11/03/21 08:09 Total Bilirubin 1.0 mg/dL (0.15-1.2) 11/03/21 08:09 AST 20 U/L (0-40) 11/03/21 08:09 ALT 15 U/L (0-41) 11/03/21 08:09 Alkaline Phosphatase 303 IU/L (40-130) H 11/03/21 08:09 Total Protein 7.2 g/dL (6.6-8.7) 11/03/21 08:09 Albumin 3.7 g/dL (3.5-5.2) 11/03/21 08:09 Globulin 3.5 g/dL (1.3-4.6) 11/03/21 08:09 TSH 5.97 uIU/mL (0.27-4.20) H 11/03/21 08:09 Urine Color Yellow (Yellow) 11/03/21 13:26 Urine Appearance Sl cloudy (CLEAR) A 11/03/21 13:26 Urine pH 5 (5-7) 11/03/21 13:26 Ur Specific [place] 1.010 (1.005-1.030) 11/03/21 13:26 Urine Protein Neg (Negative) 11/03/21 13:26 Urine Glucose (UA) Norm (Normal) 11/03/21 13:26 Urine Ketones Negative (Negative) 11/03/21 13:26 Urine Blood Neg (Negative) 11/03/21 13:26 Urine Nitrate Negative (Negative) 11/03/21 13:26 Urine Bilirubin Neg (Negative) 11/03/21 13:26 Urine Urobilinogen Norm mg/dL (Negative) 11/03/21 13:26 Ur Leukocyte Esterase Negative (Negative) 11/03/21 13:26 Urine RBC 0-4 /hpf (0-2) H 11/03/21 13:26 Urine WBC 55-80 /hpf (0-5) H 11/03/21 13:26 Ur Squamous Epith Cells 0-4 /hpf (0-5) H 11/03/21 13:26 Amorphous Sediment Not Reportable 11/03/21 13:26 Urine Bacteria 2+ /hpf (NONE) H 11/03/21 13:26 Discharge Plan Discharge Patient Disposition: Admitted As Inpatient Admit Provider: Anthony Michaels Clinical Impression: Diastolic congestive heart failure, Obstructive sleep apnea, Acute respiratory failure with hypoxia and hypercapnia, Morbid obesity, CHF (congestive heart failure), Anemia Condition: Fair Discharge Activity: Increase activity as tolerated, Use walker/crutches as instructed, Oxygen as instructed and Cpap/Bipap as instructed Coding Level of Care Code ED Tour Bus Driver/Guide for Zac Pickett
--- NOTE | 2021-11-03 07:39 | XRR_ITS ---
PROCEDURE INFORMATION: Exam: XR Chest Exam date and time: 11/03/2021 8:08 AM Age: 51 years old Clinical indication: Cough and dyspnea and shortness of breath; Additional info: Dyspnea/cough TECHNIQUE: Imaging protocol: XR of the chest. Views: 1 view. Total images: 1 COMPARISON: CR (CHEST, ) 10/25/2021 3:13 AM FINDINGS: Lungs: See Heart/Mediastinum finding. Pleural spaces: Unremarkable. No pleural effusion. No pneumothorax. Heart/Mediastinum: Low lung volumes are present, accentuating cardiac size and pulmonary markings. Bones/joints: Osseous structures are unchanged from the prior exam. Other findings: X-ray is slightly rotated. XR/XR chest 1V portable [id number] IMPRESSION: Low lung volumes are present, accentuating cardiac size and pulmonary markings.
--- NOTE | 2021-11-03 07:40 | ECG_ITS ---
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 Measurements Intervals [place] Rate: 63 P: 96 [place]: 195 QRS: 101 QRSD: 96 T: 70 QT: 432 QTc: 444 Interpretive Statements SINUS RHYTHM RIGHT AXIS DEVIATION [QRS AXIS > 100] LOW QRS VOLTAGE IN PRECORDIAL LEADS [QRS DEFLECTION < 1.0 mV IN CHEST LEADS] PATTERN CONSISTENT WITH PULMONARY DISEASE INCOMPLETE RIGHT BUNDLE BRANCH BLOCK [90+ ms QRS DURATION, TERMINAL R IN V1/V2, 40+ ms S IN I/aVL/V4/V5/V6] MINIMAL ST DEPRESSION [0.025+ mV ST DEPRESSION] Compared to ECG 10/25/2021 03:14:30 Right-axis deviation now present ST (T wave) deviation now present Indeterminate axis no longer present Electronically Signed On 11-03-2021 16:51:51 CDT by Wali Martinez M.D. [id number]
--- NOTE | 2021-11-03 07:49 | PC.NURSE ---
Patient on commode at this time. Patient has call light within reach. Patient reports headache this morning.
--- NOTE | 2021-11-03 08:00 | PC.NURSE ---
Patient ambulated to commode. Urinal was attempted but RN and patient unable to find urethra. Patient states he is unable to, and needs to use commode. Patient was able to sit and urinate on commode. Patient noted to have red blood small amount in stool. Notified Dr. Del Angel, instructed to do a hemoccult test on what was in the commode. positive result.
[2021-11-03 08:16] LABS: Basophils % 0.4 %; Eosinophils # 0.1 10^3/uL (0.0-0.8); Hematocrit 33.9 % (42.0-52.0); Hemoglobin 8.9 g/dL (11.7-16.6); Lymphocytes # 0.7 10^3/uL (0.8-4.8); Lymphocytes % 13.8 %; Mean Corpuscular HGB Conc 26.3 g/dL (30.0-36.0); Mean Corpuscular Hemoglobin 22.6 pg (28.0-34.0); Mean Corpuscular Volume 86.3 fl (80-94); Mean Platelet Volume 10.2 fL (7.4-10.4); Monocytes # 0.4 10^3/uL (0.2-0.9); Monocytes % 8.2 %; Neutrophils # 3.65 10^3/uL (1.8-7.7); Neutrophils % 76.4 %; Nucleated Red Blood Cells % 0 %; Platelet Count 176 10^3/cmm (130-400); Red Blood Count 3.93 10^6/uL (4.1-5.3); Red Cell Distribution Width 20.4 % (12.1-15.1); White Blood Count 4.8 10^3/uL (4.0-10.0)
[2021-11-03] MEDS: ondansetron 2 mg/ML SDV 2 mL 4 MG IVP (08:25)
[2021-11-03] MEDS: morphine 4 mg/mL SDV 1 mL IVP (08:26)
[2021-11-03] MEDS: FUROsemide 10 mg/mL SDV 10mL 80 MG IVP ×2 (08:28→18:19)
[2021-11-03 08:43] LABS: Alanine Aminotransferase 15 U/L (0-41); Albumin Level 3.7 g/dL (3.5-5.2); Alkaline Phosphatase 303 IU/L (40-130); Blood Urea Nitrogen 27 mg/dL (6-20); Calcium 8.9 mg/dL (8.5-10.5); Carbon Dioxide 29 mmol/L (22-29); Chloride 97 mmol/L (98-107); Globulin 3.5 g/dL (1.3-4.6); Glomerular Filtration Rate 53.9 mL/min (90-130); Glucose 153 mg/dL (65-115); Osmolality Calculated 296 mOsm/kg (285-295); Sodium 139 mmol/L (136-145); Total Protein 7.2 g/dL (6.6-8.7)
[2021-11-03 08:48] LABS: Aspartate Amino Transferase 20 U/L (0-40)
--- NOTE | 2021-11-03 09:58 | CT_ITS ---
WS: [id number] CT ABDOMEN AND PELVIS WITH CONTRAST HISTORY: Short of breath, abdominal pain and swelling. TECHNIQUE: Imaging performed of the abdomen and pelvis with IV contrast. Single phase imaging of the abdomen. Coronal and sagittal reformats are submitted. All CT scans at [facility] use at [address] one of these dose optimization techniques: automated exposure control; mA and/or kV adjustment per patient size (includes targeted exams where dose is matched to clinical indication); or iterative re construction. IV CONTRAST: Omnipaque 350; 95 mL IV. Oral contrast: No DLP: 3008.83 mGy.cm COMPARISON: 07/25/2021 Lower thorax: Severe soft tissue anasarca in the lower thorax. 2 there are very tiny subcentimeter no dules at the lung bases bilaterally. These nodules could been present on prior studies but obscured b y airspace disease and fluid. Heart is mildly enlarged. No pericardial effusion. Small hiatal hernia. Liver/biliary system: Enlarged liver measuring over 21 cm in length. Quality of this examination is s uboptimal due to body habitus and edema. No bile duct dilatation. Portal vein is normally enhancing. Suspicious for early changes of cirrhosis although there is no atrophy of the liver. Gallbladder: Normal. No gallstones or wall thickening. No pericholecystic fluid. Pancreas: Normal size pancreas and pancreatic duct. No adjacent inflammation. Spleen: Spleen is mildly enlarged at 14 cm in length. Adrenal glands: Normal. Right kidney: Nonobstructing calcifications. Left kidney: Low-attenuation mass upper pole measures 2.0 cm. Hounsfield units are low suggesting thi s is a cyst. No obstruction. Aorta: Small caliber aorta. No abnormality noted at the origin of the SMA and celiac axis. Lymphadenopathy: None. Free fluid: There is a small amount of ascites within the abdomen and pelvis. The ascites surrounds t he liver and spleen and extends along the paracolic gutters. There is also extensive soft tissue anas arca and mesenteric edema. GI tract: No abnormality identified. Abdominal wall: Extensive soft tissue edema and anasarca. This is severe anasarca. The entire abdomin al wall is not included in the [id number] due to patient's body habitus. Pelvis: Bladder is normally distended. No adenopathy. Bones: Lumbar curvature. CT/CT abdomen pelvis w con* [id number] IMPRESSION: 1. Severe extensive soft tissue anasarca and mesenteric edema. 2. Small amount of ascites within the abdomen and pelvis. 3. Quality of this examination is limited by body habitus and the soft tissue anasarca. 4. Subcentimeter nodules at the lung bases. These have been present on prior s tudies. On several examinations these nodules are obscured because of fluid and atelectasis. 5. Hepatomegaly and splenomegaly. 6. No free air identified.
[2021-11-03 10:51] LABS: ABG PH Result 7.23 (7.35-7.45); Arterial Blood Gas Hematocrit 27.4 % (42-52); Base Excess ABG 8.2 mmol/L (-2.0-2.0); Blood Gas Allen Test Pos; Blood Gas Operator Identificat CAK; Blood Gas Sample Site Brachial, left; Blood Gas Sample Type Arterial; HCO3 ABG 37.6 mmol/L (22-26); Oxygen Device NC; PO2 ABG 55.9 mmHg (80.0-100.0)
--- NOTE | 2021-11-03 11:06 | PM.HP ---
Providers/Chief Complaint Primary Care Provider: Stewart Rosario MD Chief Complaint: HEADACHE VOMITING History of Present Illness Arnol Guzman is a 51 year old male that presented to the emergency department with history of some vomiting. Triage statement also says headache, although patient does not complain of that at this time to me. In talking with the emergency department he came in with significant fluid overload and was short of breath. When I evaluated the patient he was able to awaken to answer a question here or there, but quickly went back to sleep. This prevented the ability to get a good review of systems. He was able to tell me that he had not seen any blood in his stool at home. He reported no fevers. No chest pain. I am not confident of his understanding of all questions. Secondary to vomiting a CT abdomen and pelvis has been ordered by the emergency department physician. In the emergency department he got 80 mg of Lasix IV. In the emergency department I have been informed he had a maroon stool, that was heme positive. Review of Systems General: Reports: ROS unobtainable due to mental status (Lethargic) Medications/Allergies Home Medications Medication Instructions Recorded Confirmed Last Taken Type atorvastatin 80 mg tablet (Lipitor) 80 mg PO BEDTIME 07/14/19 10/21/21 07/24/21 History montelukast 10 mg tablet 10 mg PO BEDTIME 07/14/19 10/21/21 07/24/21 History (Singulair) omeprazole 40 mg capsule,delayed 40 mg PO QAM 07/14/19 10/21/21 07/24/21 History release oxygen-air delivery systems #1 03/11/20 10/21/21 Unknown History albuterol sulfate 90 mcg/actuation 2 puff INHALATION QID PRN 05/19/20 10/21/21 07/25/21 History aerosol inhaler aspirin 81 mg tablet,delayed 81 mg PO QAM 09/13/20 10/21/21 07/24/21 History release mometasone-formoterol HFA 200 2 puff INHALATION BID 11/24/20 10/21/21 07/24/21 History mcg-5 mcg/actuation aerosol inhaler (Dulera) allopurinol 100 mg tablet 100 mg PO QAM 02/16/21 10/21/21 07/24/21 History lisinopril 5 mg tablet 5 mg PO QAM 02/16/21 10/21/21 07/24/21 History sitagliptin 50 mg-metformin 1,000 1 tab PO BID 02/16/21 10/21/21 07/24/21 History mg tablet (Janumet) ferrous sulfate 325 mg (65 mg 325 mg PO BID 06/22/21 10/21/21 07/24/21 History iron) tablet sertraline 50 mg tablet 50 mg PO DAILY 07/13/21 10/21/21 07/24/21 History tamsulosin 0.4 mg capsule 0.4 mg PO DAILY 07/13/21 10/21/21 07/24/21 History ziprasidone HCl 40 mg capsule 40 mg PO DAILY@17 07/13/21 10/21/21 07/24/21 History acetaminophen 325 mg capsule 325 mg PO Q6H PRN #14 cap 07/15/21 10/21/21 Unknown Rx (Tylenol) atenolol 50 mg tablet 50 mg PO QAM #30 tab 09/01/21 10/21/21 Unknown Rx potassium chloride 20 mEq 40 meq PO DAILY #30 tab 09/01/21 10/21/21 Unknown Rx tablet,extended release(part/cryst) (Klor-Con M) bumetanide 1 mg tablet 2 mg PO DAILY #60 tab 09/06/21 10/21/21 Unknown Rx sennosides 8.6 mg-docusate sodium 1 tab PO DAILY #30 tab 09/06/21 10/21/21 Unknown Rx 50 mg tablet (Stool Softener-Laxative) albuterol sulfate 2.5 mg INHALATION Q6H PRN 10/05/21 10/21/21 Unknown History insulin detemir U-100 100 unit/mL 6 unit SUBCUT DAILY 10/05/21 10/21/21 Unknown History (3 mL) subcutaneous pen (Levemir FlexTouch U-100 Insulin) meclizine 25 mg tablet 25 mg PO TID #30 tab 10/10/21 10/21/21 Unknown Rx Allergies Allergy/AdvReac Type Severity Reaction Status Date / Time Penicillins Allergy ALGY-Hives Verified 11/03/21 07:23 diltiazem [From Cardizem] AdvReac ADR/ALGY-Pa Verified 11/03/21 07:23 lpitations PFSH Acute PFSH: Medical History (Updated 11/03/21 @ 11:19 by Anthony Michaels MD) Acute respiratory failure with hypoxia and hypercapnia Anemia -has chronic iron deficiency anemia, baseline Hg is around 9-10 Anxiety Chest pain Chest pain CHF (congestive heart failure) -Echo (07/2019): EF=68%, normal diastolic function, no RWMA -on oral lasix -no acute exacerbation currently CHF (congestive heart failure) Chronic anemia Chronic respiratory failure Decubitus ulcer limited to breakdown of skin (stage 2) Depression Diabetes -NIDDM type II -A1c (11/2019): 8.2 -Accuchecks, ISS, hypoglycemia precautions -consistent carb diet -anticipate hyperglycemia with steroid use Gout Hyperlipemia, mixed Hypertension -VSS; continue to monitor -continue oral antihypertensives Hypertension Major depressive disorder, recurrent, moderate Morbid (severe) obesity due to excess calories Morbid obesity OPAL (obstructive sleep apnea) -in the process of getting CPAP set up Pneumonia Psychiatric care Transient cerebral ischemia Surgical History History of adenoidectomy History of hernia repair History of tonsillectomy History of umbilical hernia repair Family History Mother Hypertension CAD (coronary artery disease) Stroke Social History Smoking and tobacco status: never smoked Second hand smoke exposure: Yes Alcohol intake: never Adopted: No Caregiver/support person: No Lives independently: Yes Household members: family and friend(s) Housing: Manufactured/Mobile home Marital status: Single Number of children: 0 Number of grandchildren: 0 Highest education level completed: 8th Grade service: No Current occupational status: disabled Pets and animals: No History of recent travel: No Leisure activites: other Leisure activities details: play card games Sexually active: No Current gender identity: Male Yolanda/Christian: Other Special yolanda needs: No Agree to transfusion: Yes Financial difficulty paying for basics: Hard Vitals/I&O/Wt Last Vital Signs Temp 98.1 F 11/03/21 07:23 Pulse 65 11/03/21 11:00 Resp 22 H 11/03/21 09:18 BP 137/68 11/03/21 11:00 Pulse Ox 91 11/03/21 11:00 Weight last 48 hrs Weight 181.437 kg Physical Exam Narrative: General exam demonstrates a significantly fluid overloaded white male, who will awaken with significant stimulation to answer one-word questions before falling asleep. ABG had been ordered stat, confirming significant CO2 retention and BiPAP is being placed. HEENT: Pupils equally round. Eyelid edema noted. Oropharynx clear. Neck is supple and obese Cardiovascular regular rate and rhythm without murmur Lungs diminished breath sounds bilaterally but clear. No wheezes or crackles Abdomen is soft obese with positive bowel sounds. Perhaps some epigastric tenderness but difficult to tell. Emergency department physician has ordered a CT of his abdomen and pelvis. exam is deferred Extremities show 2-3+ edema bilaterally. Skin no rash Neuro no focal deficits. Lethargy noted likely secondary to CO2 retention. Data : 11/03/21 08:09 11/03/21 08:09 Other Labs: ABG demonstrated a pH 7.23, PCO2 of 90, PO2 of 56 on 6 L Calcium normal 8.9 Total bilirubin 1.0, AST 20, ALT 15, alk phos 303. Albumin normal at 3.7 Echocardiogram from July 2021 was a technically difficult study, preserved EF, 2/4 diastolic dysfunction, dilated right ventricle with moderate pulmonary hypertension with a pressure estimated at 53 mmHg A&P Assessment and plan (1) Acute respiratory failure with hypoxia and hypercapnia: Significant CO2 retention and hypoxia requiring BiPAP on admission and associated with acute hypercarbic encephalopathy. At present treatment will be BiPAP, pulmonary toilet Goals are an oxygen saturation of approximately 90 to 92% Status: Acute (2) Diastolic congestive heart failure: Presentation consistent with acute diastolic heart failure. He has had a recent echo and this does not need to be repeated currently. Lasix 80 mg IV every 12 hours, monitoring diuresis closely Place Shaw to monitor diuresis Hold MARSHA inhibitor at this point. Can reinitiate later during hospital course. Check TSH Status: Acute (3) GI bleed: Per the emergency department secondary to some evidence of brighter blood he believes this could be lower GI bleeding. I do not see any recent EGD or colonoscopy. Overall his hemoglobin is higher than his previous discharge. Secondary to bleeding discontinue aspirin Protonix 40 mg IV every 12 hours Consider outpatient endoscopies, if stabilization/compensation of his heart failure and respiratory failure can occur. Certainly he would be at high risk for any anesthesia currently. CT abdomen and pelvis has been ordered. Status: Acute (4) Anemia: Has known iron deficiency anemia. Maroon stool in the emergency department Will check if he has had any recent EGD or colonoscopy. I think this is unlikely on review of records. Status: Acute (5) Diabetes mellitus: Sliding scale insulin Status: Acute (6) History of CVA (cerebrovascular accident): Hold aspirin secondary to GI bleeding. Continue statin. Status: Acute (7) Depression: Continue home medications Status: Acute (8) Morbid obesity: Severe morbid obesity, complicating all of his medical problems and making overall prognosis poor. Status: Acute Plan Acute kidney injury. Likely secondary to heart failure. Monitor closely for improvement with diuresis. Obstructive sleep apnea/obesity hypoventilation/possible COPD. Continue DuoNeb every 6 hours, budesonide. BiPAP when sleeping even as he improves. We will see if insurance covers BiPAP at home. Apparently he only has CPAP. Attestations Medical Necessity Statement*: Will need greater than 2 midnight stay for evaluation and treatment of respiratory failure, CHF, anemia, GI bleed, encephalopathy. Critical Care Time: The high probability of a clinically significant, sudden or life threatening deterioration of the patient's [pulmonary, renal, cardiac, gastrointestinal system(s) required my full and direct attention, intervention and personal management. The critical care time is as shown. This time is in addition to time spent performing any reported procedures but includes the following: [x] Data and vital sign review and interpretation [x] Patient assessment, examination and intervention [x] Documentation [x] Medication orders and management Critical Care Time (min): 63 Coding Level of Care Code Acute Manager Fine Dining for [facility] Fwd Diagnoses Acute respiratory failure with hypoxia and hypercapnia J96.01; J96.02 Diastolic congestive heart failure I50.30 GI bleed K92.2 Anemia D64.9 Diabetes mellitus E11.9 History of CVA (cerebrovascular accident) Z86.73 Depression F32.A Morbid obesity E66.01
[2021-11-03] MEDS: pantoprazole 40 mg SDV IVP ×2 (11:34→21:38)
--- NOTE | 2021-11-03 12:38 | PC.NURSE ---
Patient in CT, Aly RN with patient at this time.
--- NOTE | 2021-11-03 12:44 | PC.NURSE ---
Report given to ICU.
[2021-11-03 12:50] LABS: Thyroid Stimulating Hormone 5.97 uIU/mL (0.27-4.20)
[2021-11-03] MEDS: iohexol 350 mg/mL 100 mL Btl IV (12:50)
[2021-11-03 13:39] LABS: ABG PH Result 7.31 (7.35-7.45); Alveolar-Arterial Oxygen Gradi 9.6 mmHg (5-10); Arterial Blood Gas Hematocrit 27.5 % (42-52); Base Excess ABG 8.7 mmol/L (-2.0-2.0); Blood Gas Allen Test Pos; Blood Gas Operator Identificat CAK; Blood Gas Sample Site Radial, left; Blood Gas Sample Type Arterial; Carboxyhemoglobin 1.6 %THgb (0.4-20.1); HCO3 ABG 36.6 mmol/L (22-26); HGB O2 Sat 83.7 % (95-100); Ionized Calcium Level - ABG 1.3 mmol/L (1.1-1.4); Methemoglobin 0.7 % (0.4-1.5); Oxygen Device BIPAP; Oxygen Saturation ABG 85.7; PO2 ABG 53.9 mmHg (80.0-100.0); Potassium Level - ABG 4.6 mmol/L (3.5-5.0)
[2021-11-03 13:40] LABS: ABG PCO2 72.2 mmHg (35-45)
[2021-11-03 13:51] LABS: Glucose Point of Care 124 mg/dL (70-110)
[2021-11-03 14:08] LABS: Urine Color Yellow (Yellow)
[2021-11-03 14:09] LABS: Bilirubin Urine Neg (Negative); Blood Urine Neg (Negative); Glucose Urine UA Norm (Normal); Ketones Urine Negative (Negative); Leukocyte Esterase Urine Negative (Negative); Nitrate Urine Negative (Negative); Protein Urine Neg (Negative); Urobilinogen Urine Norm (Negative); pH Urine 5 (5-7)
[2021-11-03 14:25] LABS: Bacteria Urine 2+ /hpf; RBC Urine 0-4 /hpf (0-2); Squamous Epithelial Cell Urine 0-4 /hpf (0-5); WBC Urine 55-80 /hpf (0-5)
[2021-11-03 14:26] LABS: Add Urine Culture? Yes
[2021-11-03] MEDS: ipratropium-albuterol 3 mL Neb INHALATION ×2 (14:46→20:14)
[2021-11-03 17:23] LABS: Glucose Point of Care 119 mg/dL (70-110)
[2021-11-03] MEDS: budesonide 0.5 mg/2 mL Neb INHALATION (20:14)
[2021-11-03 20:25] LABS: Glucose Point of Care 146 mg/dL (70-110)
[2021-11-03] MEDS: insulin lispro 100 unit/1 mL SUBCUT (21:37)
[2021-11-04] VITALS (70 sets, daily range): BP systolic 107–140; BP diastolic 48–77; PULSE 54–91; RESP 0–31; TEMP 36.6–37.1; O2SAT 80–100
[2021-11-04] MEDS: ipratropium-albuterol 3 mL Neb INHALATION ×4 (02:37→20:36)
[2021-11-04 04:09] LABS: Alanine Aminotransferase 12 U/L (0-41); Albumin Level 3.6 g/dL (3.5-5.2); Alkaline Phosphatase 300 IU/L (40-130); Anion Gap 15.4 (5-19); Aspartate Amino Transferase 12 U/L (0-40); Blood Urea Nitrogen 31 mg/dL (6-20); Calcium 9.7 mg/dL (8.5-10.5); Carbon Dioxide 33 mmol/L (22-29); Chloride 98 mmol/L (98-107); Globulin 4.1 g/dL (1.3-4.6); Glomerular Filtration Rate 43.1 mL/min (90-130); Glucose 163 mg/dL (65-115); Osmolality Calculated 302 mOsm/kg (285-295); Potassium 5.4 mmol/L (3.5-5.1); Sodium 141 mmol/L (136-145); Total Bilirubin 1.3 mg/dL (0.15-1.2); Total Protein 7.7 g/dL (6.6-8.7)
[2021-11-04 04:20] LABS: Basophils % 0.3 %; Hematocrit 34.1 % (42.0-52.0); Hemoglobin 8.7 g/dL (11.7-16.6); Lymphocytes # 0.4 10^3/uL (0.8-4.8); Lymphocytes % 9.9 %; Mean Corpuscular HGB Conc 25.5 g/dL (30.0-36.0); Mean Corpuscular Hemoglobin 22.5 pg (28.0-34.0); Mean Corpuscular Volume 88.3 fl (80-94); Mean Platelet Volume 10.5 fL (7.4-10.4); Monocytes # 0.1 10^3/uL (0.2-0.9); Monocytes % 3.3 %; Neutrophils # 3.14 10^3/uL (1.8-7.7); Neutrophils % 86.2 %; Nucleated Red Blood Cells % 0 %; Platelet Count 169 10^3/cmm (130-400); Red Blood Count 3.86 10^6/uL (4.1-5.3); Red Cell Distribution Width 20.3 % (12.1-15.1); White Blood Count 3.6 10^3/uL (4.0-10.0)
[2021-11-04 07:13] LABS: Glucose Point of Care 148 mg/dL (70-110)
[2021-11-04 07:33] LABS: Creatine Phosphokinase 28 U/L (39-308)
--- NOTE | 2021-11-04 07:34 | P.PN_ITS ---
Subjective Subjective: Arnol is much more awake and conversive. He wants the BiPAP off. We discussed that this can come off when he eats, but should be put back on if he is sleeping or taking a nap. He denies any chest pain. Medications: Reviewed: Yes Vitals/I&O/Wt Last Vital Signs Temp 98.8 F 11/04/21 03:00 Pulse 64 11/04/21 06:00 Resp 15 11/04/21 06:00 BP 140/63 11/04/21 06:00 Pulse Ox 94 11/04/21 06:00 11/03/21 11/04/21 11/04/21 22:59 06:59 14:59 Intake Total 100 / 100 Output Total 1900 / 1900 300 / 2200 Balance -1800 / -1800 -300 / -2100 Weight last 48 hrs Weight 178.5 kg Weight 181.437 kg Physical Exam Narrative: General exam a white male with BiPAP on, conversive, with 2100 cc negative over the last 24 hours. HEENT: Pupils equally round. Eyelid edema noted. Neck is supple and obese Cardiovascular regular rate and rhythm without murmur Lungs diminished breath sounds bilaterally but clear. No wheezes or crackles Abdomen is soft obese with positive bowel sounds. Perhaps some epigastric tenderness but difficult to tell. Emergency department physician has ordered a CT of his abdomen and pelvis. exam demonstrates Shaw Extremities show 1+ edema bilaterally. Skin no rash Neuro: No lethargy. No focal deficits Urinary Catheter Management: Shaw: Cath Placed During This Visit: yes Reason for Continuing Indwelling Catheter: Accurate Measurement of Urinary Output in Critically Ill Patients Urinary Catheter Date of Insertion: 11/03/21 Urinary Catheter Time of Insertion: 13:34 Data : 11/04/21 03:33 11/04/21 03:33 A&P Assessment and plan (1) Acute respiratory failure with hypoxia and hypercapnia: Significant CO2 retention and hypoxia requiring BiPAP on admission and associated with acute hypercarbic encephalopathy. Wean off BiPAP this morning. Placed back on when sleeping, at night. Note that we have been using AVAP mode Goals are an oxygen saturation of approximately 90 to 92% Status: Acute (2) Diastolic congestive heart failure: Presentation consistent with acute diastolic heart failure. He has had a recent echo and this does not need to be repeated currently. Secondary to increasing creatinine, reduce Lasix dose to 40 mg IV every 12 hours Repeat BMP tomorrow, as well as 3 PM today Continue Shaw to monitor diuresis Continue to hold MARSHA inhibitor at this point. Can reinitiate later during hospital course. TSH checked and slightly high. Will need repeated as an outpatient in 4 weeks. Most consistent with subclinical hypothyroidism. Status: Acute (3) GI bleed: Per the emergency department secondary to some evidence of brighter blood he believes this could be lower GI bleeding. I do not see any recent EGD or colonoscopy. Overall his hemoglobin is higher than his previous discharge. Secondary to bleeding Aspirin was discontinued He has not had any bloody bowel movements since admission and hemoglobin has remained stable Continue Protonix 40 mg IV every 12 hours Consider outpatient endoscopies, if stabilization/compensation of his heart failure and respiratory failure can occur. Certainly he would be at high risk for any anesthesia currently. CT abdomen and pelvis demonstrated soft tissue edema, no free air, hepatomegaly and splenomegaly. Status: Acute (4) Anemia: Has known iron deficiency anemia. Maroon stool in the emergency department Consider endoscopy, when compensated from his diastolic heart failure. This may be a challenge. Status: Acute (5) Diabetes mellitus: Sliding scale insulin Status: Acute (6) History of CVA (cerebrovascular accident): Hold aspirin secondary to GI bleeding. Continue statin. Status: Acute (7) Depression: Continue home medications Status: Acute (8) Morbid obesity: Severe morbid obesity, complicating all of his medical problems and making overall prognosis poor. Status: Acute Plan Acute kidney injury. Likely secondary to heart failure. This is worsened slightly with diuresis of 2100 cc over the last 24 hours. Check BMP this afternoon. For now reduce Lasix to 40 mg IV every 12 hours. He certainly has persistent edema. We will check CK as well. Obstructive sleep apnea/obesity hypoventilation/possible COPD. Continue DuoNeb every 6 hours, budesonide. BiPAP when sleeping even as he improves. We will see if insurance covers BiPAP at home. Apparently he only has CPAP. Solu- Medrol added yesterday secondary to concern of possible COPD exacerbation. Changed to prednisone today. Mild hyperkalemia, recheck potassium this afternoon UTI noted on urinalysis. Rocephin started. Urine culture. Multiple other medical problems as outlined in past medical history Full code SCDs for DVT prophylaxis. Anticoagulation contraindicated secondary to bloody stool on admission Possible transfer out of ICU to stepdown status this afternoon Attestations Medical Necessity Statement*: Needs continued hospital stay secondary to acute respiratory failure requiring AVAPS Coding Level of Care Code Acute Seed Specialist for [facility] Fwd Diagnoses Acute respiratory failure with hypoxia and hypercapnia J96.01; J96.02 Diastolic congestive heart failure I50.30 GI bleed K92.2 Anemia D64.9 Diabetes mellitus E11.9 History of CVA (cerebrovascular accident) Z86.73 Depression F32.A Morbid obesity E66.01
[2021-11-04] MEDS: budesonide 0.5 mg/2 mL Neb INHALATION ×2 (08:17→20:36)
[2021-11-04] MEDS: insulin lispro 100 unit/1 mL SUBCUT ×4 (08:58→20:39)
[2021-11-04] MEDS: predniSONE 20 mg Tablet 40 MG PO (08:58)
[2021-11-04] MEDS: cefTRIAXone 1,000 MG in sodium chloride 0.9% (plus) 50 ML 100 MG IV (09:00)
[2021-11-04] MEDS: pantoprazole 40 mg SDV IVP ×3 (09:01→20:35)
[2021-11-04] MEDS: FUROsemide 10 mg/mL SDV 4mL 40 MG IVP ×2 (09:09→17:58)
[2021-11-04] MEDS: tamsulosin 0.4 mg Capsule PO (09:13)
--- NOTE | 2021-11-04 09:30 | PC.CHAP ---
Pastoral Care Encounter/Spiritual Assessment Type of Contact [] Declined sales and marketing engineer visit [] Patient/Family/Request visit [] Outpatient visit [] Follow-up visit [] Physician referral [] Code/Alert [x] Routine visit [] Staff referral [] Actively dying [] Patient sleeping [] Family support [] [] Out of room [] Palliative care [] [] Receiving care in room [] Pre-surgical visit [] Trauma [] Long length of stay [x] ICU visit [] Other: Relational/Emotional Strength [] Patient feels connected with others/family/visitors/staff [] Distress [] Loneliness/isolation [] Abandonment Spirituality of Patient [] Person of Yolanda [] Attends Anglican of their Yolanda [] Believes in Prayer [] Reads Bible or Mormonism materials [] There are Spiritual issues to be addressed Finish Painter Interventions [x] Prayer [x] Active listening [x] Non-anxious presence [x] Spiritual/emotional support [] Crisis/trauma care [] Spiritual counseling [] Bereavement support [] Provided bereavement packet [] Provided Bible/devotional materials [] Provided toy/stuffed animal, coloring book to patient or family member [] Provided Communion [] Anointing/[place] [] Salvation [x] Completed spiritual assessment [] Other: Impact on Illness or Injury [] Angry [] Fearful [] Anxious [] Often cries [] Exhaustion [] Unable to work [] Unable to attend faith [] Unable to walk/stand [] Unable to read [] Unable to drive [] Unable to eat/drink [] Unable to sleep [] Unable to be with family [] Patient intubated [] Other: Summary patient setting in chair having breakfast... Time spent with patient 5 min
[2021-11-04 12:06] LABS: Glucose Point of Care 181 mg/dL (70-110)
--- NOTE | 2021-11-04 12:29 | PC.NURSE ---
Transferred patient to [facility]. Report given to and patient handed off to ALFIE ortiz. Belongings sent with patient included a wallet, cell phone, pants, shoes, and a shirt which was cut off of the patient.
[2021-11-04 13:07] LABS: Glucose Point of Care 174 mg/dL (70-110)
[2021-11-04 15:38] LABS: Blood Urea Nitrogen 34 mg/dL (6-20); Carbon Dioxide 33 mmol/L (22-29); Chloride 97 mmol/L (98-107); Glomerular Filtration Rate 40.3 mL/min (90-130); Glucose 184 mg/dL (65-115); Osmolality Calculated 300 mOsm/kg (285-295); Sodium 139 mmol/L (136-145)
[2021-11-04 17:20] LABS: Glucose Point of Care 194 mg/dL (70-110)
[2021-11-04 20:17] LABS: Glucose Point of Care 207 mg/dL (70-110)
[2021-11-04] MEDS: atorvastatin 40 mg Tablet 80 MG PO (20:34)
[2021-11-04] MEDS: montelukast sodium 10 mg Tablet PO (20:34)
--- NOTE | 2021-11-04 22:13 | ECG_ITS ---
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 Measurements Intervals [place] Rate: 84 P: 83 HI: 175 QRS: 105 QRSD: 120 T: 85 QT: 388 QTc: 459 Interpretive Statements SINUS RHYTHM RIGHT AXIS DEVIATION [QRS AXIS > 100] MODERATE INTRAVENTRICULAR CONDUCTION DELAY [110+ ms QRS DURATION] Compared to ECG 11/03/2021 08:16:05 Intraventricular conduction delay now present Incomplete right bundle-branch block no longer present ST (T wave) deviation no longer present Electronically Signed On 11-05-2021 8:15:00 CDT by Armand Bunch M.D. [id number]
[2021-11-04 22:58] LABS: Troponin(5th) Baseline 36 ng/L (0-15)
[2021-11-05] VITALS (16 sets, daily range): BP systolic 106–131; BP diastolic 60–83; PULSE 62–74; RESP 16–20; TEMP 36.7–36.9; O2SAT 91–98
--- NOTE | 2021-11-05 00:14 | ECG_ITS ---
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 Measurements Intervals [place] Rate: 77 P: 69 [place]: 129 QRS: 105 QRSD: 100 T: 83 QT: 381 QTc: 433 Interpretive Statements SINUS RHYTHM WITH OCCASIONAL SUPRAVENTRICULAR PREMATURE COMPLEXES RIGHT AXIS DEVIATION [QRS AXIS > 100] LOW QRS VOLTAGE IN PRECORDIAL LEADS [QRS DEFLECTION < 1.0 mV IN CHEST LEADS] WARNING: DATA QUALITY MAY AFFECT INTERPRETATION Compared to ECG 11/04/2021 21:32:55 Low QRS voltage now present Intraventricular conduction delay no longer present Electronically Signed On 11-05-2021 8:17:55 CDT by Armand Bunch M.D. [id number]
[2021-11-05 01:03] LABS: Troponin 5 2HR 40.83 ng/L (0-15)
[2021-11-05 01:23] LABS: Troponin 5 2HR Delta 4.83 ABS# (0-10)
[2021-11-05] MEDS: ipratropium-albuterol 3 mL Neb INHALATION ×4 (02:40→20:10)
--- NOTE | 2021-11-05 04:14 | ECG_ITS ---
[facility] Test Date: 2021-11-05 Pat Name: Arnol Guzman Department: Room: 256 Gender: Male Floral Specialist: : 1970 Requested By: Juan Urena Order Number: [id number] Reading MD: Armand Bunch M.D. Measurements Intervals [place] Rate: 67 P: 87 SC: 177 QRS: 93 QRSD: 98 T: 72 QT: 407 QTc: 430 Interpretive Statements SINUS RHYTHM BORDERLINE RIGHT AXIS DEVIATION [QRS AXIS > 90] LOW QRS VOLTAGE IN PRECORDIAL LEADS [QRS DEFLECTION < 1.0 mV IN CHEST LEADS] Compared to ECG 11/05/2021 00:11:03 No significant changes Electronically Signed On 11-05-2021 8:19:55 CDT by Armand Bunch M.D. [id number]
--- NOTE | 2021-11-05 05:18 | NUR.SHIFT ---
Oriented this shift. Bipap on when in bed, and O2 via nasal cannula while up with sats >90%. Did have report of chest pain this shift with Dr. Urena notified and EKG/Troponin series ordered. Patient has had no further complaint of chest pain, or any pain, since initial report. Able to reposition self in bed, also able to sit self up to bedside without assistance. Accuchecks done per orders with insulin administered per protocol, patient was educated on need for sugar free snacks/drinks, did voice understanding and was compliant this shift. IV in left antecubital intact and saline locked. Does have silva catheter in place, patent and intact.
[2021-11-05 05:23] LABS: Basophils % 0.2 %; Hematocrit 30.3 % (42.0-52.0); Lymphocytes # 0.6 10^3/uL (0.8-4.8); Lymphocytes % 10.5 %; Mean Corpuscular HGB Conc 26.4 g/dL (30.0-36.0); Mean Corpuscular Hemoglobin 22.7 pg (28.0-34.0); Mean Corpuscular Volume 85.8 fl (80-94); Mean Platelet Volume 10.9 fL (7.4-10.4); Monocytes # 0.4 10^3/uL (0.2-0.9); Neutrophils # 4.68 10^3/uL (1.8-7.7); Neutrophils % 82.1 %; Nucleated Red Blood Cells % 0 %; Platelet Count 171 10^3/cmm (130-400); Red Blood Count 3.53 10^6/uL (4.1-5.3); Red Cell Distribution Width 20.4 % (12.1-15.1); White Blood Count 5.7 10^3/uL (4.0-10.0)
[2021-11-05] MEDS: atenolol 50 mg Tablet PO (05:36)
[2021-11-05] MEDS: allopurinol 100 mg Tablet PO (05:36)
[2021-11-05 05:48] LABS: Alanine Aminotransferase 14 U/L (0-41); Albumin Level 3.8 g/dL (3.5-5.2); Alkaline Phosphatase 259 IU/L (40-130); Anion Gap 14.4 (5-19); Aspartate Amino Transferase 12 U/L (0-40); Blood Urea Nitrogen 42 mg/dL (6-20); Calcium 8.7 mg/dL (8.5-10.5); Carbon Dioxide 32 mmol/L (22-29); Chloride 99 mmol/L (98-107); Glomerular Filtration Rate 33.7 mL/min (90-130); Glucose 158 mg/dL (65-115); Osmolality Calculated 306 mOsm/kg (285-295); Potassium 4.4 mmol/L (3.5-5.1); Sodium 141 mmol/L (136-145); Total Bilirubin 0.8 mg/dL (0.15-1.2); Total Protein 6.8 g/dL (6.6-8.7)
[2021-11-05 05:49] LABS: Troponin 5 6HR 38.63 ng/L (0-15); Troponin 5 6HR Delta 2.63 ng/L (0-12)
[2021-11-05 06:40] LABS: Glucose Point of Care 144 mg/dL (70-110)
[2021-11-05] MEDS: FUROsemide 10 mg/mL SDV 4mL 40 MG IVP (06:41)
[2021-11-05] MEDS: budesonide 0.5 mg/2 mL Neb INHALATION ×2 (08:51→20:10)
[2021-11-05] MEDS: pantoprazole 40 mg SDV IVP ×2 (09:24→20:52)
[2021-11-05] MEDS: cefTRIAXone 1,000 MG in sodium chloride 0.9% (plus) 50 ML 100 MG IV (09:24)
[2021-11-05] MEDS: insulin lispro 100 unit/1 mL SUBCUT ×4 (09:25→20:53)
[2021-11-05] MEDS: sertraline 50 mg Tablet PO (09:25)
[2021-11-05] MEDS: predniSONE 20 mg Tablet 40 MG PO (09:25)
[2021-11-05] MEDS: tamsulosin 0.4 mg Capsule PO (09:25)
[2021-11-05 11:28] LABS: Glucose Point of Care 161 mg/dL (70-110)
[2021-11-05 17:07] LABS: Glucose Point of Care 192 mg/dL (70-110)
--- NOTE | 2021-11-05 17:14 | PM.PN ---
Subjective Subjective: He reports he is overall feeling slightly better. He is coughing, bringing up some phlegm. Denies chest pain or pressure. Denies abdominal pain. Vitals/I&O/Wt Last Vital Signs Temp 98.3 F 11/05/21 15:41 Pulse 70 11/05/21 15:41 Resp 17 11/05/21 15:41 BP 106/66 11/05/21 15:41 Pulse Ox 95 11/05/21 16:46 11/05/21 11/05/21 11/05/21 06:59 14:59 22:59 Intake Total 530 / 530 Output Total 450 / 450 Balance -450 / 770 530 / 530 Weight last 48 hrs Weight 178.851 kg Weight 178.5 kg Physical Exam Const: COMMON NORMALS: alert GENERAL APPEARANCE: cooperative NUTRITIONAL APPEARANCE: obese morbidly obese ORIENTATION/CONSCIOUSNESS: Yes awake HENMT: COMMON NORMALS: normocephalic, EAC's normal, Normal external nose present and moist oral mucous membranes HEAD & SCALP: normocephalic NOSE: Normal external nose present EXTERNAL AUDITORY CANAL: EAC's normal Neck/C-Spine: COMMON NORMALS: no meningeal signs OTHER: Very wide neck Chest: CHEST: Yes Symmetrical chest wall rise Resp: COMMON NORMALS: clear to auscultation bilaterally AUSCULTATION: clear to auscultation bilaterally Cardio: COMMON NORMALS: regular rate, regular rhythm and No murmurs present (Cardio) RATE: regular rate RHYTHM: regular rhythm GI: COMMON NORMALS: Normal to inspection, nondistended, normoactive bowel sounds present, Soft to palpation and non-tender PALPATION: Yes Soft to palpation OTHER: Very large pannus with dependent edema on the R side of abdomen Extremity: GENERAL: Yes edema (Trace at ankles) Neuro: COMMON NORMALS: moves all extremities SENSORIUM/ORIENTATION: Yes alert MENINGEAL SIGNS: Yes no meningeal signs Psych: COMMON NORMALS: mental status grossly normal Skin: COMMON NORMALS: no wounds RASHES: rashes noted (Groin, under pannus intertrigo) Urinary Catheter Management: Shaw: Cath Placed During This Visit: yes Reason for Continuing Indwelling Catheter: Accurate Measurement of Urinary Output in Critically Ill Patients Urinary Catheter Date of Insertion: 11/03/21 Urinary Catheter Time of Insertion: 13:34 Data : 11/05/21 04:45 11/05/21 04:45 Micro: Microbiology 11/03/21 13:26 Urine Culture - Final Urine,Clean Catch Escherichia coli A&P Assessment and plan (1) TEDDY (acute kidney injury): Hold Lasix. With likely decompensation of systolic right heart failure. Blood pressure soft 106/66. Concern for prerenal TEDDY. BUN elevated 42. Bicarb, however, at baseline 32. CK is normal. Albumin normal. It is very difficult to telephone station repairer volume status in him given his severe central obesity. He maintains oral intake, will hold off diuretic for now, reassess renal function. Discussed with him. Status: Acute (2) Acute respiratory failure with hypoxia and hypercapnia: AVAPS while asleep. Attempt to set up for trilogy at discharge. Goals are an oxygen saturation of approximately 90 to 92% COPD exacerbation with underlying sleep apnea, with pulmonary hypertension likely based on TTE, right heart failure -progressing to cor pulmonale? Sleep apnea, obesity hypoventilation. Has had VQ scan 10/22 which was with low probability for PE. Status: Acute (3) Diastolic congestive heart failure: Biventricular acute on chronic heart failure, with systolic right heart failure, as well as diastolic left heart failure. With pulmonary hypertension. Possibly progressing toward cor pulmonale. Very difficult to telephone station repairer volume status. Lasix on hold for now with worsening renal function. Reassess renal function. Check magnesium. Continue Shaw to monitor diuresis Continue to hold MARSHA inhibitor at this point. Can reinitiate later during hospital course. TSH checked and slightly high. Will need repeated as an outpatient in 4 weeks. Most consistent with subclinical hypothyroidism. Status: Acute (4) GI bleed: Hemoglobin with some decreased today. Continue PPI. Reassess. Aspirin is withheld. Decrease prednisone dose. Per the emergency department secondary to some evidence of brighter blood he believes this could be lower GI bleeding. Consider outpatient endoscopies, if stabilization/compensation of his heart failure and respiratory failure can occur. Certainly he would be at high risk for any anesthesia currently. CT abdomen and pelvis demonstrated soft tissue edema, no free air, hepatomegaly and splenomegaly. Status: Acute (5) Anemia: Has known iron deficiency anemia. Maroon stool in the emergency department Consider endoscopy, when compensated from his diastolic heart failure. This may be a challenge. Status: Acute (6) Diabetes mellitus: Sliding scale insulin Status: Acute (7) History of CVA (cerebrovascular accident): Hold aspirin secondary to GI bleeding. Continue statin. Status: Acute (8) Depression: Continue home medications Status: Acute (9) Morbid obesity: Severe morbid obesity, complicating all of his medical problems and making overall prognosis poor. Status: Acute Plan Mild hyperkalemia, resolved UTI: Pansensitive E. coli. Ceftriaxone. Multiple other medical problems as outlined in past medical history Full code SCDs for DVT prophylaxis. Anticoagulation contraindicated secondary to bloody stool on admission Attestations Medical Necessity Statement*: Continue admission for assessment management of TEDDY in course of treatment of congestive heart failure. 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
[2021-11-05] MEDS: nystatin cream 30 gm 1 APPLIC TOPICAL (18:01)
[2021-11-05 20:21] LABS: Glucose Point of Care 254 mg/dL (70-110)
[2021-11-05] MEDS: montelukast sodium 10 mg Tablet PO (20:53)
[2021-11-05] MEDS: atorvastatin 40 mg Tablet 80 MG PO (20:53)
[2021-11-06] VITALS (10 sets, daily range): BP systolic 116–166; BP diastolic 70–82; PULSE 62–71; RESP 16–22; TEMP 36.4–37; O2SAT 92–99
[2021-11-06] MEDS: ipratropium-albuterol 3 mL Neb INHALATION ×2 (03:28→08:53)
[2021-11-06 05:11] LABS: Basophils % 0.2 %; Hematocrit 31.2 % (42.0-52.0); Hemoglobin 8.2 g/dL (11.7-16.6); Lymphocytes # 0.7 10^3/uL (0.8-4.8); Lymphocytes % 16.2 %; Mean Corpuscular HGB Conc 26.3 g/dL (30.0-36.0); Mean Corpuscular Hemoglobin 22.6 pg (28.0-34.0); Mean Platelet Volume 10.3 fL (7.4-10.4); Monocytes # 0.3 10^3/uL (0.2-0.9); Neutrophils % 75.1 %; Nucleated Red Blood Cells % 0 %; Platelet Count 165 10^3/cmm (130-400); Red Blood Count 3.63 10^6/uL (4.1-5.3); Red Cell Distribution Width 20.6 % (12.1-15.1); White Blood Count 4.3 10^3/uL (4.0-10.0)
[2021-11-06] MEDS: atenolol 50 mg Tablet PO (05:23)
[2021-11-06] MEDS: allopurinol 100 mg Tablet PO (05:23)
[2021-11-06 05:25] LABS: Alanine Aminotransferase 15 U/L (0-41); Albumin Level 3.7 g/dL (3.5-5.2); Alkaline Phosphatase 288 IU/L (40-130); Anion Gap 10.5 (5-19); Aspartate Amino Transferase 13 U/L (0-40); Blood Urea Nitrogen 45 mg/dL (6-20); Calcium 8.7 mg/dL (8.5-10.5); Carbon Dioxide 35 mmol/L (22-29); Chloride 99 mmol/L (98-107); Glomerular Filtration Rate 37.9 mL/min (90-130); Glucose 150 mg/dL (65-115); Magnesium 2.1 mg/dL (1.7-2.3); Osmolality Calculated 304 mOsm/kg (285-295); Potassium 4.5 mmol/L (3.5-5.1); Sodium 140 mmol/L (136-145); Total Bilirubin 0.9 mg/dL (0.15-1.2); Total Protein 6.7 g/dL (6.6-8.7)
[2021-11-06 06:20] LABS: Glucose Point of Care 139 mg/dL (70-110)
[2021-11-06 07:49] LABS: Glucose Point of Care 150 mg/dL (70-110)
[2021-11-06] MEDS: cefTRIAXone 1,000 MG in sodium chloride 0.9% (plus) 50 ML 100 MG IV (07:54)
[2021-11-06] MEDS: tamsulosin 0.4 mg Capsule PO (08:02)
[2021-11-06] MEDS: nystatin cream 30 gm 1 APPLIC TOPICAL (08:02)
[2021-11-06] MEDS: predniSONE 20 mg Tablet PO (08:02)
[2021-11-06] MEDS: pantoprazole 40 mg SDV IVP (08:10)
[2021-11-06] MEDS: budesonide 0.5 mg/2 mL Neb INHALATION (08:53)
[2021-11-06 11:32] LABS: Glucose Point of Care 168 mg/dL (70-110)
[2021-11-06] MEDS: insulin lispro 100 unit/1 mL SUBCUT (12:23)
--- NOTE | 2021-11-06 15:21 | PC.NURSE ---
upon Dr rounding this AM, it was discussed pt would be discharging today. pt set up a ride with the friend that he will be staying with. around noon dr called this nurse to inform her that d/t pt not having proper equipment at home (pt is awaiting approval for a trilogy, but could discharge with a bipap until approved), pt has a cpap. since it is the weekend continued processing of approval for needed equipment does not move forward. this nurse was told to inform pt that he could potentially discharge on sunday, tomorrow, after HOME was contacted for possible set up for bipap in the interim. pt was unhappy with this information, was highly agitated, tearful and cursed at the nurse. stated he was done with being in the hospital and wanted to go home. pt stated that he would be fine since he had the cpap at home. this nurse educated pt on the difference between his equipment and what he now needed. that not having proper respiratory equipment could be harmful to his health and cause adverse effects. pt still wanted to go, dr mead was informed, came and spoke with pt, attempted to educate pt the risks to his health and life if he left AMA, pt verbalized understanding and still wanted to go. arrangements were made and pt left.
--- NOTE | 2021-11-06 15:30 | P.DS_ITS ---
Discharge Providers Date of Admission: 11/03/21 13:31 Date of Discharge: November 06, 2021 Attending Provider at Admission: Anthony Michaels MD Attending Provider at Discharge: Omar Hickey Primary Care Provider: Stewart Rosario MD Diagnoses at Discharge Discharge Diagnosis (1) TEDDY (acute kidney injury): Status: Acute (2) Acute respiratory failure with hypoxia and hypercapnia: Status: Acute (3) Diastolic congestive heart failure: Status: Acute (4) GI bleed: Status: Acute (5) Anemia: Status: Acute (6) Diabetes mellitus: Status: Acute (7) History of CVA (cerebrovascular accident): Status: Acute (8) Depression: Status: Acute (9) Morbid obesity: Status: Acute Reason for Visit Reason for Visit: HEADACHE VOMITING Brief History: 51-year-old gentleman with class III obesity, OPAL, obesity hypoventilation syndrome, chronic congestive heart failure, presented with acute hypoxic and hypercapnic respiratory failure, after an episode of vomiting at home, on presentation with biventricular heart failure, diastolic left, systolic right heart failure, with fluid overload, with respiratory acidosis, hypercapnia, hypoxia, required BiPAP support, was treated with IV diuretics, MARSHA inhibitor was held, potassium supplements held, with noted some hyperkalemia, with TEDDY as well. Was treated with steroid, breathing treatments, BiPAP support for possible COPD exacerbation. Rocephin for UTI. Due to reported BRBPR aspirin was held. He was continued on PPI. Please consider additional evaluation by endoscopy once he is out of acute illness. With noted iron deficiency anemia. During hospitalization with worsening kidney injury, creatinine as high as 2. IV diuresis stopped. Creatinine reassessment with improvement down to 1.9. He has been requiring noninvasive ventilatory support at night, here with AVAPS, needing backup rate due to OPAL, and with recurrent hypercapnia, respiratory acidosis. Arrangements have been ongoing to try to get a trilogy for him on the outpatient side as per discussion with case management. Today he reported feeling much better, he stated he had also ambulated without assistance to the commode and back to his bed and has been doing quite well with nasal cannula while awake. Considerations for discharge were discussed with him with continued attempts to arrange for trilogy and/or BiPAP with backup rate, however, on discussion with case management on follow-up with home it appears that due to prior poor adherence with CPAP, and other factors trilogy may not be set up from what I am told for another month. Discharge was deferred for now until case management could continue working with home to set up possibly BiPAP with backup rate in the meantime until trilogy is arranged when home reopens on Sunday. We had spent close to 40 minutes with his nurse on detailed discussion with him regarding reasons for need of bilevel ventilation, dangers of recurrent respiratory failure with hypercapnia, and why his CPAP was no longer adequate therapy. He is adamant he is leaving the hospital AGAINST MEDICAL ADVICE despite the needed equipment not being available. He is not willing to stay for case management to check with home tomorrow to see if BiPAP could be set up in the interim. He teaches back the risks including narcosis, coma, permanent disability from stroke or other complication, and , and still wants to discharge citing multiple reasons, including uncomfortable bed, not enjoying the food, wanting to be staying with his friend. We also tried to see if anything we could adjust to make his stay here or comfortable to help him reconsider, but he was not interested. He does not want to be in the hospital anymore. I encouraged him to also inform his friends of his condition so that they are aware of what to potentially expect and of the associated risks. He does not want us to contact his sisters. Please reassess his renal function and potassium at next visit. He is asked to hold lisinopril, Janumet, stop potassium supplementation with mild hyperkalemia at presentation. Please reassess blood counts, consider endoscopic elevation for iron deficiency anemia, possible GI bleed. He is asked to hold aspirin for now. He is given prescription to complete cefdinir for UTI. 2 more days of prednisone for possible COPD exacerbation. He will resume Bumex for CHF. Pl ease discuss further with him and refer for additional assessment for pulmonary hypertension. Continue attempts to achieve weight loss. Follow-up regarding depression and other chronic conditions. Given the statin prescription for groin intertrigo. Please continue efforts to set up trilogy or at least BiPAP with backup rate which she should wear when sleeping. Physical Exam Const: COMMON NORMALS: alert NUTRITIONAL APPEARANCE: obese morbidly obese ORIENTATION/CONSCIOUSNESS: Yes awake HENMT: COMMON NORMALS: normocephalic, EAC's normal, Normal external nose present and moist oral mucous membranes HEAD & SCALP: normocephalic NOSE: Normal external nose present EXTERNAL AUDITORY CANAL: EAC's normal Neck/C-Spine: COMMON NORMALS: no meningeal signs OTHER: Very wide neck Chest: CHEST: Yes Symmetrical chest wall rise Resp: COMMON NORMALS: clear to auscultation bilaterally AUSCULTATION: clear to auscultation bilaterally Cardio: COMMON NORMALS: regular rate, regular rhythm and No murmurs present (Cardio) RATE: regular rate RHYTHM: regular rhythm GI: COMMON NORMALS: Normal to inspection, nondistended, normoactive bowel sounds present, Soft to palpation and non-tender PALPATION: Yes Soft to palpation OTHER: Very large pannus with dependent edema on the R side of abdomen Extremity: COMMON NORMALS: no pedal edema GENERAL: Yes edema (Trace at ankles) Neuro: COMMON NORMALS: moves all extremities SENSORIUM/ORIENTATION: Yes alert MENINGEAL SIGNS: Yes no meningeal signs Psych: COMMON NORMALS: mental status grossly normal Skin: COMMON NORMALS: no wounds RASHES: rashes noted (Groin, under pannus intertrigo) Urinary Catheter Management: Shaw: Cath Placed During This Visit: yes, but has since been removed by the nurse Reason for Continuing Indwelling Catheter: Decision to DC Catheter Urinary Catheter Date of Insertion: 11/03/21 Urinary Catheter Time of Insertion: 13:34 Date Urinary Catheter Removed: 11/06/21 Time Urinary Catheter Discontinued: 14:38 Discharge Data Studies Completed and Pending Completed Studies During Hospitalization Category Date Time Status CT abdomen pelvis w con* [id number] Stat Cat Scan 11/03/21 09:58 Completed XR chest 1V portable [id number] Stat Exams 11/03/21 07:39 Completed Pending at discharge Category Date Time Status Complete Blood Count w/Auto AM LABS Lab 11/07/21 04:00 Ordered Complete Blood Count w/Auto AM LABS Lab 11/08/21 04:00 Ordered Comprehensive Metabolic Panel AM LABS Lab 11/07/21 04:00 Ordered Comprehensive Metabolic Panel AM LABS Lab 11/08/21 04:00 Ordered Radiology Impressions Chest X-Ray 11/03/21 07:39 IMPRESSION: Low lung volumes are present, accentuating cardiac size and pulmonary markings. Abdomen/Pelvis CT 11/03/21 09:58 IMPRESSION: 1. Severe extensive soft tissue anasarca and mesenteric edema. 2. Small amount of ascites within the abdomen and pelvis. 3. Quality of this examination is limited by body habitus and the soft tissue anasarca. 4. Subcentimeter nodules at the lung bases. These have been present on prior studies. On several examinations these nodules are obscured because of fluid and atelectasis. 5. Hepatomegaly and splenomegaly. 6. No free air identified. Laboratory Results WBC 4.3 10^3/uL (4.0-10.0) 11/06/21 04:50 RBC 3.63 10^6/uL (4.1-5.3) L 11/06/21 04:50 Hgb 8.2 g/dL (11.7-16.6) L 11/06/21 04:50 Hct 31.2 % (42.0-52.0) L 11/06/21 04:50 MCV 86.0 fl (80-94) 11/06/21 04:50 MCH 22.6 pg (28.0-34.0) L 11/06/21 04:50 MCHC 26.3 g/dL (30.0-36.0) L 11/06/21 04:50 RDW 20.6 % (12.1-15.1) H 11/06/21 04:50 Plt Count 165 10^3/cmm (130-400) 11/06/21 04:50 MPV 10.3 fL (7.4-10.4) 11/06/21 04:50 Neut % (Auto) 75.1 % 11/06/21 04:50 Lymph % (Auto) 16.2 % 11/06/21 04:50 [place] % (Auto) 8.0 % 11/06/21 04:50 Eos % (Auto) 0.0 % 11/06/21 04:50 Baso % (Auto) 0.2 % 11/06/21 04:50 Neut # (Auto) 3.20 10^3/uL (1.8-7.7) 11/06/21 04:50 Lymph # (Auto) 0.7 10^3/uL (0.8-4.8) L 11/06/21 04:50 [place] # (Auto) 0.3 10^3/uL (0.2-0.9) 11/06/21 04:50 Eos # (Auto) 0.0 10^3/uL (0.0-0.8) 11/06/21 04:50 Baso # (Auto) 0.0 10^3/uL (0.0-0.1) 11/06/21 04:50 Nucleated RBC % (auto) 0 % 11/06/21 04:50 Nucleated RBCs # 0.0 /100WBC 11/06/21 04:50 Specimen Type Arterial 11/03/21 13:28 Sample Site Radial, left 11/03/21 13:28 ABG pH 7.31 (7.35-7.45) L 11/03/21 13:28 ABG pCO2 72.2 mmHg (35-45) H* 11/03/21 13:28 ABG pO2 53.9 mmHg (80.0-100.0) L 11/03/21 13:28 ABG HCO3 36.6 mmol/L (22-26) H 11/03/21 13:28 ABG O2 Saturation 85.7 11/03/21 13:28 ABG Base Excess 8.7 mmol/L (-2.0-2.0) H 11/03/21 13:28 Luis Test Pos 11/03/21 13:28 A-a O2 Gradient 9.6 mmHg (5-10) 11/03/21 13:28 Hematocrit 27.5 % (42-52) L 11/03/21 13:28 Hgb O2 Saturation 83.7 % (95-100) L 11/03/21 13:28 Carboxyhemoglobin 1.6 %THgb (0.4-20.1) 11/03/21 13:28 Methemoglobin 0.7 % (0.4-1.5) 11/03/21 13:28 Total Hemoglobin 9.0 g/dL (14-18) L 11/03/21 13:28 Sodium 142.0 mmol/L (131-143) 11/03/21 13:28 Potassium 4.6 mmol/L (3.5-5.0) 11/03/21 13:28 Glucose 136.0 mg/dL (70-115) H 11/03/21 13:28 Ionized Calcium 1.3 mmol/L (1.1-1.4) 11/03/21 13:28 O2 Delivery Device Bipap 11/03/21 13:28 O2 Liters/Min 6.0 % 11/03/21 10:40 FiO2 30.0 % 11/03/21 13:28 [employer]ak 11/03/21 13:28 Sodium 140 mmol/L (136-145) 11/06/21 04:50 Potassium 4.5 mmol/L (3.5-5.1) 11/06/21 04:50 Chloride 99 mmol/L (98-107) 11/06/21 04:50 Carbon Dioxide 35 mmol/L (22-29) H 11/06/21 04:50 Anion Gap 10.5 (5-19) 11/06/21 04:50 BUN 45 mg/dL (6-20) H 11/06/21 04:50 Creatinine 1.9 mg/dL (0.7-1.2) H 11/06/21 04:50 GFR Calculation 37.9 mL/min (90-130) L 11/06/21 04:50 Glucose 150 mg/dL (65-115) H 11/06/21 04:50 POC Glucose 168 mg/dL (70-110) H 11/06/21 11:05 Calculated Osmolality 304 mOsm/kg (285-295) H 11/06/21 04:50 Calcium 8.7 mg/dL (8.5-10.5) 11/06/21 04:50 Magnesium 2.1 mg/dL (1.7-2.3) 11/06/21 04:50 Total Bilirubin 0.9 mg/dL (0.15-1.2) 11/06/21 04:50 AST 13 U/L (0-40) 11/06/21 04:50 ALT 15 U/L (0-41) 11/06/21 04:50 Alkaline Phosphatase 288 IU/L (40-130) H 11/06/21 04:50 Creatine Kinase 28 U/L (39-308) L 11/04/21 03:33 Troponin T Baseline 36 ng/L (0-15) H 11/04/21 22:25 Troponin T 120 Minute 40.83 ng/L (0-15) H 11/05/21 00:30 Delta Troponin T 4.83 ABS# (0-10) 11/05/21 00:30 Troponin T Hi Sens 6Hr 38.63 ng/L (0-15) H 11/05/21 04:45 Troponin T Hi Sens 6Hr Delta 2.63 ng/L (0-12) 11/05/21 04:45 Total Protein 6.7 g/dL (6.6-8.7) 11/06/21 04:50 Albumin 3.7 g/dL (3.5-5.2) 11/06/21 04:50 Globulin 3.0 g/dL (1.3-4.6) 11/06/21 04:50 TSH 5.97 uIU/mL (0.27-4.20) H 11/03/21 08:09 Urine Color Yellow (Yellow) 11/03/21 13:26 Urine Appearance Sl cloudy (CLEAR) A 11/03/21 13:26 Urine pH 5 (5-7) 11/03/21 13:26 Ur Specific Tok 1.010 (1.005-1.030) 11/03/21 13:26 Urine Protein Neg (Negative) 11/03/21 13:26 Urine Glucose (UA) Norm (Normal) 11/03/21 13:26 Urine Ketones Negative (Negative) 11/03/21 13:26 Urine Blood Neg (Negative) 11/03/21 13:26 Urine Nitrate Negative (Negative) 11/03/21 13:26 Urine Bilirubin Neg (Negative) 11/03/21 13:26 Urine Urobilinogen Norm mg/dL (Negative) 11/03/21 13:26 Ur Leukocyte Esterase Negative (Negative) 11/03/21 13:26 Urine RBC 0-4 /hpf (0-2) H 11/03/21 13:26 Urine WBC 55-80 /hpf (0-5) H 11/03/21 13:26 Ur Squamous Epith Cells 0-4 /hpf (0-5) H 11/03/21 13:26 Amorphous Sediment Not Reportable 11/03/21 13:26 Urine Bacteria 2+ /hpf (NONE) H 11/03/21 13:26 Vitals Last Vital Signs Temp 97.7 F 11/06/21 11:08 Pulse 66 11/06/21 14:00 Resp 18 11/06/21 11:08 BP 116/70 11/06/21 11:08 Pulse Ox 92 05/01/22 11:08 Discharge Plan Discharge Patient Disposition: Left Against Medical Advice Condition: Fair Prescriptions: New prednisone 20 mg Tablet 20 mg PO DAILY Qty: 2 0RF cefdinir 300 mg capsule 300 mg PO BID 5 Days Qty: 10 0RF nystatin 100,000 unit/gram Cream 1 applic topical BID Qty: 30 0RF Rx Instructions: Groin Continued (DME) oxygen-air delivery systems Device See Rx Instructions .ROUTE .MEDSUPPLY Qty: 1 0RF Rx Instructions: As directed albuterol sulfate 90 mcg/actuation HFA aerosol inhaler 2 puff inhalation QID PRN (Reason: Shortness Of Breath) 0RF atorvastatin [Lipitor] 80 mg Tablet 80 mg PO BEDTIME 0RF omeprazole 40 mg Capsule,Delayed Release(Dr/Ec) 40 mg PO QAM 0RF montelukast [Singulair] 10 mg Tablet 10 mg PO BEDTIME 0RF Dulera 200-5 mcg/actuation HFA aerosol inhaler 2 puff INHALATION BID 0RF allopurinol 100 mg tablet 100 mg PO QAM 0RF sennosides-docusate sodium [Stool Softener-Laxative] 8.6-50 mg Tablet 1 tab PO DAILY Qty: 30 2RF ferrous sulfate 325 mg (65 mg iron) tablet 325 mg PO BID 0RF tamsulosin 0.4 mg capsule 0.4 mg PO DAILY 0RF ziprasidone HCl 40 mg capsule 40 mg PO DAILY@17 0RF sertraline 50 mg tablet 50 mg PO DAILY 0RF acetaminophen [Tylenol] 325 mg capsule 325 mg PO Q6H PRN (Reason: pain) Qty: 14 0RF glipizide 10 mg tablet extended release 24hr 10 mg PO BID 0RF folic acid 1 mg tablet 1 mg PO DAILY 0RF ascorbic acid (vitamin C) 500 mg tablet 500 mg PO BID 0RF bumetanide 1 mg tablet 1 mg PO BID 0RF albuterol sulfate 2.5 mg /3 mL (0.083 %) Solution For Nebulization 2.5 mg INHALATION Q6H PRN (Reason: Shortness Of Breath) 0RF Levemir FlexTouch U-100 Insuln 100 unit/mL (3 mL) insulin pen 6 unit SUBCUT DAILY 0RF meclizine 25 mg Tablet 25 mg PO TID Qty: 30 0RF Changed atenolol 100 mg tablet 50 mg PO DAILY Qty: 0 0RF Held aspirin 81 mg Tablet,Delayed Release (Dr/Ec) 81 mg PO QAM 0RF Hold Instructions: Resume on 12/04/21. lisinopril 5 mg tablet 5 mg PO QAM 0RF Hold Instructions: Resume on 12/04/21. Janumet 50-1,000 mg tablet 1 tab PO BID 0RF Hold Instructions: Resume on 12/04/21. Discontinued potassium chloride [Klor-Con M20] 20 mEq Tablet,Er Particles/Crystals 40 meq PO DAILY Qty: 30 0RF Hold Instructions: Resume on 10/14/21. furosemide 40 mg tablet 40 mg PO DAILY 0RF Discharge Orders: Discharge Order (Routine); Ordered 11/06/21 Ordered By: Omar Hickey Referrals: [facility] [Other] (Medicaid Transport #) Stewart Rosario MD [Primary Care Provider] - 1-3 days Discharge Activity: Increase activity as tolerated, Use walker/crutches as instructed, Oxygen as instructed and Cpap/Bipap as instructed Patient Instructions: Against Medical Advice (DC) Activity Restrictions/Additional Instructions: You are leaving the hospital prematurely. He can build up dangerous levels of carbon dioxide while asleep, and the CPAP machine you have at home is not adequate to rid of the carbon dioxide. You need a BiPAP machine or trilogy type ventilator to get rid of the carbon dioxide and prevent severe complications or . As discussed you are at risk of narcosis, coma, possible severe and permanent disability like stroke, and until you have the correct equipment. If you change your mind and decide to stay, case management will continue workin g on trying to get you set up with the right equipment while you use the hospital BiPAP. You may return to ER at anytime. Follow-up with your primary doctor otherwise at first available appointment. Continue efforts to set up trilogy, and possibly BiPAP equipment if that can be set up sooner. As discussed you are encouraged to inform your friend you will be staying with of your condition and the severe possible associated risks as above until you get the right equipment. Please follow-up with your primary doctor for reassessment of renal function due to noted acute kidney injury while in the hospital. Please hold your lisinopril and Janumet for now until your kidney function can be reassessed by your primary doctor and medications resumed safely. Stop potassium supplement until potassium can be reassessed by your primary doctor. Monitor your blood glucose at least 3 times a day to avoid low blood sugars in the setting of reduced kidney function with insulin, glipizide. Do not take insulin or glipizide if your sugars are 100 or below. Follow-up with your doctor also regarding anemia with iron deficiency and possible GI bleed. Hold aspirin. Discuss with your primary doctor evaluation by endoscopy to exclude cancer or other dangerous causes. If you have persistent bleeding seek medical attention immediately. Follow-up with your primary doctor regarding congestive heart failure, sleep apnea, obesity hypoventilation syndrome. Discussed with your primary doctor regarding further evaluation of pulmonary hypertension. Work with your primary doctor to achieve weight loss. Have your primary doctor recheck your thyroid function in 4 weeks due to mild abnormality of TSH. Continue follow with your primary doctor regarding depression and other chronic medical problems. Complete antibiotic course for urinary infection. Please note your discharge may be incomplete due to leaving the hospital prematurely. Discharge Attestations Time Spent in Discharge Care*: greater than 30 min Status at Discharge: Cognitive status at discharge: cognitively intact , Behavioral status at discharge: cooperative , Quality Metrics Clinical Quality Measures [ No reported AMI, CVA or VTE this stay] Coding Level of Care Code Acute Chg FW DC note Diagnoses TEDDY (acute kidney injury) N17.9 Acute respiratory failure with hypoxia and hypercapnia J96.01; J96.02 Diastolic congestive heart failure I50.30 GI bleed K92.2 Anemia D64.9 Diabetes mellitus E11.9 History of CVA (cerebrovascular accident) Z86.73 Depression F32.A Morbid obesity E66.01
== END 2021-11-06 15:20 | disposition left against medical advice (07) | DRG 291 ==
LOC: ER 07:26 → ICU 21:37 → MEDSURG 11-04 11:54
PROVIDERS: Family Medicine; Admitting Provider Internal Medicine; Emergency Provider Family Medicine; PCP Family Medicine; Visit Provider Internal Medicine
DX: I11.0 Hypertensive heart disease with heart failure (principal); J96.01 Acute respiratory failure with hypoxia; I50.33 Acute on chronic diastolic (congestive) heart failure; J96.02 Acute respiratory failure with hypercapnia; N39.0 Urinary tract infection, site not specified; N17.9 Acute kidney failure, unspecified; J44.1 Chronic obstructive pulmonary disease with (acute) exacerbation; E66.2 Morbid (severe) obesity with alveolar hypoventilation; Z68.45 Body mass index [BMI] 70 or greater, adult; K92.2 Gastrointestinal hemorrhage, unspecified; I50.82 Biventricular heart failure; I50.813 Acute on chronic right heart failure; D50.9 Iron deficiency anemia, unspecified; E87.5 Hyperkalemia; Z79.82 Long term (current) use of aspirin; Z99.81 Dependence on supplemental oxygen; E11.9 Type 2 diabetes mellitus without complications; E78.5 Hyperlipidemia, unspecified; R11.2 Nausea with vomiting, unspecified; Z79.84 Long term (current) use of oral hypoglycemic drugs; Z79.4 Long term (current) use of insulin; F32.A Depression, unspecified; Z86.73 Personal history of transient ischemic attack (TIA), and cerebral infarction without residual deficits; I27.20 Pulmonary hypertension, unspecified; B96.20 Unspecified Escherichia coli [E. coli] as the cause of diseases classified elsewhere
CPT/HCPCS: 36415; 36416; 36600; 51702; 71045; 74177; 80048; 80051; 80053; 81001; 82330; 82550; 82803; 82805; 82962; 83735; 84443; 84484; 85025; 87077; 87086; 87186; 93005; 94003; 94640; 94660; 94762; 96372; 96374; 96375; 99291; C9113; J0696; J1815; J1940; J2270; J2405; J2920; J7512; J7626; Q9967

== ENCOUNTER 2021-11-13 14:13 | Emergency (ER) | payer MEDICAID, SELFPAY ==
[2021-11-13 14:31] VITALS: BP 001/68; PULSE 66; RESP 18; TEMP 36.4; O2SAT 99; BMI 63.8
[2021-11-13 14:35] VITALS: BP 129/66; PULSE 64; RESP 18; TEMP 36.6; O2SAT 93
--- NOTE | 2021-11-13 14:35 | W.ED.GENADLT ---
HPI - General Adult General: Chief complaint: Psychiatric Symptoms Stated complaint: SI Time Seen by Provider: 11/13/21 14:17 History of Present Illness: HPI: [51]yo patient w/ hx of depression BIBA for suicidal ideation On arrival, the patient is AAOx3 and cooperative with my evaluation. No focal complaints of chest pain, shortness of breath, palpitations, N/V, focal GI/ complaints. Currently denies HI. No complaints of hallucinations. Onset: chronic Duration: ongoing Location: home Severity: severe Associated symptoms: Deny chest pain, dyspnea, nausea, rash, palpitations or vomiting Review of Systems Const: Denies: fever(s) or chills Eyes: Denies: change in vision ENMT: Denies: mouth pain Card: Denies: chest pain or palpitations Resp: Denies: dyspnea or non-productive cough GI: Denies: abdominal pain, nausea, vomiting or diarrhea : Denies: dysuria Musc: Denies: extremity pain Skin/Breast: Denies: rash or new lesions Neuro: Denies: weakness in extremities Psych: Reports: depression and suicidal ideation Mendel/Lymph: Denies: easy bruising PFSH ED PFSH: Medical History Acute respiratory failure with hypoxia and hypercapnia Anemia -has chronic iron deficiency anemia, baseline Hg is around 9-10 Anxiety Chest pain Chest pain CHF (congestive heart failure) -Echo (07/2019): EF=68%, normal diastolic function, no RWMA -on oral lasix -no acute exacerbation currently CHF (congestive heart failure) Chronic anemia Chronic respiratory failure Decubitus ulcer limited to breakdown of skin (stage 2) Depression Diabetes -NIDDM type II -A1c (11/2019): 8.2 -Accuchecks, ISS, hypoglycemia precautions -consistent carb diet -anticipate hyperglycemia with steroid use Diabetes mellitus Gout History of CVA (cerebrovascular accident) Hyperlipemia, mixed Hypertension -VSS; continue to monitor -continue oral antihypertensives Hypertension Major depressive disorder, recurrent, moderate Morbid (severe) obesity due to excess calories Morbid obesity OPAL (obstructive sleep apnea) -in the process of getting CPAP set up Pneumonia Psychiatric care Transient cerebral ischemia Surgical History History of adenoidectomy History of hernia repair History of tonsillectomy History of umbilical hernia repair Family History Mother Hypertension CAD (coronary artery disease) Stroke Social History Smoking and tobacco status: never smoked Second hand smoke exposure: Yes Alcohol intake: never Adopted: No Caregiver/support person: No Lives independently: Yes Household members: family and friend(s) Housing: Manufactured/Mobile home Marital status: Single Number of children: 0 Number of grandchildren: 0 Highest education level completed: 8th Grade service: No Current occupational status: disabled Pets and animals: No History of recent travel: No Leisure activites: other Leisure activities details: play card games Sexually active: No Current gender identity: Male Yolanda/Mormonism: Other Special yolanda needs: No Agree to transfusion: Yes Financial difficulty paying for basics: Hard Physical Exam Const: COMMON NORMALS: alert HENMT: COMMON NORMALS: atraumatic HEAD & SCALP: atraumatic MOUTH: moist mucous membranes not abnormal Eye: COMMON NORMALS: EOMs intact bilaterally and conjunctivae normal CONJUNCTIVA: Yes conjunctivae normal Neck/C-Spine: COMMON NORMALS: full ROM and supple Resp: COMMON NORMALS: normal respiratory effort and clear to auscultation bilaterally AUSCULTATION: clear to auscultation bilaterally Cardio: COMMON NORMALS: regular rate RATE: regular rate GI: COMMON NORMALS: Soft to palpation and non-tender PALPATION: Yes Soft to palpation Extremity: COMMON NORMALS: full ROM Neuro: SENSORIUM/ORIENTATION: Yes alert MOTOR EXAM: No Abnormal motor strength present and Other motor observations present (no focal motor deficits) Psych: COMMON NORMALS: speech normal SPEECH: Yes normal speech MOOD & AFFECT: Yes euthymic mood Course Vital Signs: Vital signs: Vital Signs Temperature 98 F 11/13/21 14:35 Pulse Rate 64 11/13/21 14:35 Respiratory Rate 18 11/13/21 14:35 Blood Pressure 129/66 11/13/21 14:35 Pulse Oximetry 93 11/13/21 14:35 MDM - General Adult Medical Decision Making [51]yo patient w/ hx of depression, CHF on 3L of NC at baseline presenting for SI. HDS, exam within normal limit Thoughts are linear and organized, and the patient has no AH/VH, or HI. Clinically the patient displays no overt toxidrome; they are well appearing, with low suspicion for toxic ingestion given history and exam. Symptoms unlikely 2/2 anemia, hypothyroidism, infection, or ICH. [3:19] Patient is hemodynamically stable with no acute medical complaints. Case discussed with psychiatric provider Dr. Hernandez at [facility] inpatient who evaluated patient via telepsych and recommended discharge with close follow-up. Per Dr. Hernandez, patient has not been taking his Zoloft. The patient reassures Dr. Hernandez that he will be restarting his Zoloft for his depression. Patient actively does not have any plan currently. Disposition: Discharge. Patient instructed, to the emergency room should he have any thoughts of suicidal ideation or depression. Patient reassures me he will restart his zoloft. Lab Data : 11/13/21 14:44 11/13/21 14:44 Laboratory Results WBC 4.4 10^3/uL (4.0-10.0) 11/13/21 14:44 RBC 3.65 10^6/uL (4.1-5.3) L 11/13/21 14:44 Hgb 8.4 g/dL (11.7-16.6) L 11/13/21 14:44 Hct 31.3 % (42.0-52.0) L 11/13/21 14:44 MCV 85.8 fl (80-94) 11/13/21 14:44 MCH 23.0 pg (28.0-34.0) L 11/13/21 14:44 MCHC 26.8 g/dL (30.0-36.0) L 11/13/21 14:44 RDW 20.8 % (12.1-15.1) H 11/13/21 14:44 Plt Count 198 10^3/cmm (130-400) 11/13/21 14:44 MPV 10.1 fL (7.4-10.4) 11/13/21 14:44 Neut % (Auto) 75.2 % 11/13/21 14:44 Lymph % (Auto) 14.2 % 11/13/21 14:44 [place] % (Auto) 8.6 % 11/13/21 14:44 Eos % (Auto) 1.6 % 11/13/21 14:44 Baso % (Auto) 0.2 % 11/13/21 14:44 Neut # (Auto) 3.34 10^3/uL (1.8-7.7) 11/13/21 14:44 Lymph # (Auto) 0.6 10^3/uL (0.8-4.8) L 11/13/21 14:44 [place] # (Auto) 0.4 10^3/uL (0.2-0.9) 11/13/21 14:44 Eos # (Auto) 0.1 10^3/uL (0.0-0.8) 11/13/21 14:44 Baso # (Auto) 0.0 10^3/uL (0.0-0.1) 11/13/21 14:44 Nucleated RBC % (auto) 0 % 11/13/21 14:44 Nucleated RBCs # 0.0 /100WBC 11/13/21 14:44 Sodium 138 mmol/L (136-145) 11/13/21 14:44 Potassium 3.7 mmol/L (3.5-5.1) 11/13/21 14:44 Chloride 97 mmol/L (98-107) L 11/13/21 14:44 Carbon Dioxide 32 mmol/L (22-29) H 11/13/21 14:44 Anion Gap 12.7 (5-19) 11/13/21 14:44 BUN 19 mg/dL (6-20) 11/13/21 14:44 Creatinine 1.2 mg/dL (0.7-1.2) 11/13/21 14:44 GFR Calculation 64.4 mL/min (90-130) L 11/13/21 14:44 Glucose 125 mg/dL (65-115) H 11/13/21 14:44 Calculated Osmolality 290 mOsm/kg (285-295) 11/13/21 14:44 Calcium 9.0 mg/dL (8.5-10.5) 11/13/21 14:44 Total Bilirubin 1.1 mg/dL (0.15-1.2) 11/13/21 14:44 AST 15 U/L (0-40) 11/13/21 14:44 ALT 20 U/L (0-41) 11/13/21 14:44 Alkaline Phosphatase 251 IU/L (40-130) H 11/13/21 14:44 Total Protein 6.8 g/dL (6.6-8.7) 11/13/21 14:44 Albumin 3.7 g/dL (3.5-5.2) 11/13/21 14:44 Globulin 3.1 g/dL (1.3-4.6) 11/13/21 14:44 Lipase 61 U/L (13-60) H 11/13/21 14:44 Salicylates < 0.3 mg/dL (3-10) L 11/13/21 14:44 Acetaminophen < 5.0 ug/mL (10-30) L 11/13/21 14:44 Discharge Plan Discharge Patient Disposition: Home Clinical Impression: Depression Condition: Stable Prescriptions: No Action (DME) oxygen-air delivery systems Device See Rx Instructions .ROUTE .MEDSUPPLY Qty: 1 0RF Rx Instructions: As directed albuterol sulfate 90 mcg/actuation HFA aerosol inhaler 2 puff inhalation QID PRN (Reason: Shortness Of Breath) 0RF atorvastatin [Lipitor] 80 mg Tablet 80 mg PO BEDTIME 0RF omeprazole 40 mg Capsule,Delayed Release(Dr/Ec) 40 mg PO QAM 0RF montelukast [Singulair] 10 mg Tablet 10 mg PO BEDTIME 0RF aspirin 81 mg Tablet,Delayed Release (Dr/Ec) 81 mg PO QAM 0RF Dulera 200-5 mcg/actuation HFA aerosol inhaler 2 puff INHALATION BID 0RF allopurinol 100 mg tablet 100 mg PO QAM 0RF lisinopril 5 mg tablet 5 mg PO QAM 0RF Janumet 50-1,000 mg tablet 1 tab PO BID 0RF potassium chloride [Klor-Con M20] 20 mEq Tablet,Er Particles/Crystals 40 meq PO DAILY Qty: 30 0RF Hold Instructions: Resume on 10/14/21. sennosides-docusate sodium [Stool Softener-Laxative] 8.6-50 mg Tablet 1 tab PO DAILY Qty: 30 2RF ferrous sulfate 325 mg (65 mg iron) tablet 325 mg PO BID 0RF tamsulosin 0.4 mg capsule 0.4 mg PO DAILY 0RF ziprasidone HCl 40 mg capsule 40 mg PO DAILY@17 0RF sertraline 50 mg tablet 50 mg PO DAILY 0RF acetaminophen [Tylenol] 325 mg capsule 325 mg PO Q6H PRN (Reason: pain) Qty: 14 0RF furosemide 40 mg tablet 40 mg PO DAILY 0RF atenolol 100 mg tablet 100 mg PO DAILY 0RF glipizide 10 mg tablet extended release 24hr 10 mg PO BID 0RF folic acid 1 mg tablet 1 mg PO DAILY 0RF ascorbic acid (vitamin C) 500 mg tablet 500 mg PO BID 0RF bumetanide 1 mg tablet 1 mg PO BID 0RF albuterol sulfate 2.5 mg /3 mL (0.083 %) Solution For Nebulization 2.5 mg INHALATION Q6H PRN (Reason: Shortness Of Breath) 0RF Levemir FlexTouch U-100 Insuln 100 unit/mL (3 mL) insulin pen 6 unit SUBCUT DAILY 0RF meclizine 25 mg Tablet 25 mg PO TID Qty: 30 0RF Discharge Orders: Discharge ED (Routine); Ordered 11/13/21 Ordered By: Vicenta Acosta Referrals: Stewart Rosario MD [Primary Care Provider] - Discharge Diet: Advance as tolerated Discharge Activity: Increase activity as tolerated Patient Instructions: Depression (ED) Activity Restrictions/Additional Instructions: Please come back to the emergency room if you need help, have any hallucinations, or you have any depression or have thoughts about hurting yourself or other people. Coding Level of Care Code ED Debeader for Zac Fwharper Exam Comprehensive
[2021-11-13 14:56] LABS: Basophils % 0.2 %; Eosinophils # 0.1 10^3/uL (0.0-0.8); Eosinophils % 1.6 %; Hematocrit 31.3 % (42.0-52.0); Hemoglobin 8.4 g/dL (11.7-16.6); Lymphocytes # 0.6 10^3/uL (0.8-4.8); Lymphocytes % 14.2 %; Mean Corpuscular HGB Conc 26.8 g/dL (30.0-36.0); Mean Corpuscular Volume 85.8 fl (80-94); Mean Platelet Volume 10.1 fL (7.4-10.4); Monocytes # 0.4 10^3/uL (0.2-0.9); Monocytes % 8.6 %; Neutrophils # 3.34 10^3/uL (1.8-7.7); Neutrophils % 75.2 %; Nucleated Red Blood Cells % 0 %; Platelet Count 198 10^3/cmm (130-400); Red Blood Count 3.65 10^6/uL (4.1-5.3); Red Cell Distribution Width 20.8 % (12.1-15.1); White Blood Count 4.4 10^3/uL (4.0-10.0)
[2021-11-13 15:14] LABS: Acetaminophen < 5.0 ug/mL (10-30); Alanine Aminotransferase 20 U/L (0-41); Albumin Level 3.7 g/dL (3.5-5.2); Alkaline Phosphatase 251 IU/L (40-130); Anion Gap 12.7 (5-19); Aspartate Amino Transferase 15 U/L (0-40); Blood Urea Nitrogen 19 mg/dL (6-20); Carbon Dioxide 32 mmol/L (22-29); Chloride 97 mmol/L (98-107); Globulin 3.1 g/dL (1.3-4.6); Glomerular Filtration Rate 64.4 mL/min (90-130); Glucose 125 mg/dL (65-115); Lipase 61 U/L (13-60); Osmolality Calculated 290 mOsm/kg (285-295); Potassium 3.7 mmol/L (3.5-5.1); Salicylate < 0.3 mg/dL (3-10); Sodium 138 mmol/L (136-145); Total Bilirubin 1.1 mg/dL (0.15-1.2); Total Protein 6.8 g/dL (6.6-8.7)
--- NOTE | 2021-11-13 15:26 | P.NPUCON_ITS ---
Providers/Reason for Consult Consulting Physican/Specialty*: Barrett Hernandez MD, psychiatrist Reason for Consult*: Suicidal ideation Primary Care Provider: Stewart Rosario MD Psych Consult HPI History of Present Illness Arnol Guzman is a 51 year old male Who presents to the emergency department with the following report: HPI: [51]yo patient w/ hx of depression BIBA for suicidal ideation On arrival, the patient is AAOx3 and cooperative with my evaluation. No focal complaints of chest pain, shortness of breath, palpitations, N/V, focal GI/ complaints. Currently denies HI. No complaints of hallucinations. Onset: chronic Duration: ongoing Location: home Severity: severe Associated symptoms: Deny chest pain, dyspnea, nausea, rash, palpitations or vomiting I talked with him for some time on the phone. He says that he has been more stressed out recently. He does not have anyone to managers psychotropic medications. He said that they would not provide that over the phone and he has difficulty going into the clinic. He says that his mobility has been decreased since he moved in with this lady and her daughter a week ago. He could not say why he is more stressed out. He was in the hospital recently and has been doing better physically since then. He stopped taking the Zoloft about two weeks ago. He felt it was not helping much. He agrees now that maybe stopping that was a mistake. He promised to restart it. They gave it to him when he was in the hospital but he has not take it out since then. I told him that I would check with [facility] to find out if somehow medication services for his psychiatric medications could be provided by phone into the home. I will also investigate if he is in the ERE program. He does prefer to be in the hospital to have his mood swings monitored. He has some suicidal ideation but no plan and not significantly different than normal. Meds Home Medications and Allergies Home Medications Medication Instructions Recorded Confirmed Last Taken Type atorvastatin 80 mg tablet (Lipitor) 80 mg PO BEDTIME 07/14/19 11/03/21 07/24/21 History montelukast 10 mg tablet 10 mg PO BEDTIME 07/14/19 11/03/21 07/24/21 History (Singulair) omeprazole 40 mg capsule,delayed 40 mg PO QAM 07/14/19 11/03/21 07/24/21 History release oxygen-air delivery systems #1 03/11/20 11/03/21 Unknown History albuterol sulfate 90 mcg/actuation 2 puff INHALATION QID PRN 05/19/20 11/03/21 07/25/21 History aerosol inhaler aspirin 81 mg tablet,delayed 81 mg PO QAM 09/13/20 11/03/21 07/24/21 History release mometasone-formoterol HFA 200 2 puff INHALATION BID 11/24/20 11/03/21 07/24/21 History mcg-5 mcg/actuation aerosol inhaler (Dulera) allopurinol 100 mg tablet 100 mg PO QAM 02/16/21 11/03/21 07/24/21 History lisinopril 5 mg tablet 5 mg PO QAM 02/16/21 11/03/21 07/24/21 History sitagliptin 50 mg-metformin 1,000 1 tab PO BID 02/16/21 11/03/21 07/24/21 History mg tablet (Janumet) ferrous sulfate 325 mg (65 mg 325 mg PO BID 06/22/21 11/03/21 07/24/21 History iron) tablet sertraline 50 mg tablet 50 mg PO DAILY 07/13/21 11/03/21 07/24/21 History tamsulosin 0.4 mg capsule 0.4 mg PO DAILY 07/13/21 11/03/21 07/24/21 History ziprasidone HCl 40 mg capsule 40 mg PO DAILY@17 07/13/21 11/03/21 07/24/21 History acetaminophen 325 mg capsule 325 mg PO Q6H PRN #14 cap 07/15/21 11/03/21 Unknown Rx (Tylenol) potassium chloride 20 mEq 40 meq PO DAILY #30 tab 09/01/21 11/03/21 Unknown Rx tablet,extended release(part/cryst) (Klor-Con M) sennosides 8.6 mg-docusate sodium 1 tab PO DAILY #30 tab 09/06/21 11/03/21 Unknown Rx 50 mg tablet (Stool Softener-Laxative) albuterol sulfate 2.5 mg INHALATION Q6H PRN 10/05/21 11/03/21 Unknown History insulin detemir U-100 100 unit/mL 6 unit SUBCUT DAILY 10/05/21 11/03/21 Unknown History (3 mL) subcutaneous pen (Levemir FlexTouch U-100 Insulin) meclizine 25 mg tablet 25 mg PO TID #30 tab 10/10/21 11/03/21 Unknown Rx ascorbic acid (vitamin C) 500 mg 500 mg PO BID 11/03/21 11/03/21 Unknown History tablet atenolol 100 mg tablet 100 mg PO DAILY 11/03/21 11/03/21 Unknown History folic acid 1 mg tablet 1 mg PO DAILY 11/03/21 11/03/21 Unknown History furosemide 40 mg tablet 40 mg PO DAILY 11/03/21 11/04/21 Unknown History glipizide 10 mg tablet, extended 10 mg PO BID 11/03/21 11/03/21 Unknown History release 24 hr bumetanide 1 mg tablet 1 mg PO BID 11/04/21 11/04/21 Unknown History Allergies Allergy/AdvReac Type Severity Reaction Status Date / Time Penicillins Allergy ALGY-Hives Verified 11/03/21 07:23 diltiazem [From Cardizem] AdvReac ADR/ALGY-Pa Verified 11/03/21 07:23 lpitations PFSH NPU PFS: Medical History (Updated 11/13/21 @ 15:34 by Barrett Hernandez MD) Acute respiratory failure with hypoxia and hypercapnia Anemia -has chronic iron deficiency anemia, baseline Hg is around 9-10 Anxiety Chest pain Chest pain CHF (congestive heart failure) -Echo (07/2019): EF=68%, normal diastolic function, no RWMA -on oral lasix -no acute exacerbation currently CHF (congestive heart failure) Chronic anemia Chronic respiratory failure Decubitus ulcer limited to breakdown of skin (stage 2) Depression Diabetes -NIDDM type II -A1c (11/2019): 8.2 -Accuchecks, ISS, hypoglycemia precautions -consistent carb diet -anticipate hyperglycemia with steroid use Diabetes mellitus Gout History of CVA (cerebrovascular accident) Hyperlipemia, mixed Hypertension -VSS; continue to monitor -continue oral antihypertensives Hypertension Major depressive disorder, recurrent, moderate Morbid (severe) obesity due to excess calories Morbid obesity OPAL (obstructive sleep apnea) -in the process of getting CPAP set up Pneumonia Psychiatric care Transient cerebral ischemia Surgical History History of adenoidectomy History of hernia repair History of tonsillectomy History of umbilical hernia repair Family History Mother Hypertension CAD (coronary artery disease) Stroke Social History Smoking and tobacco status: never smoked Second hand smoke exposure: Yes Alcohol intake: never Adopted: No Caregiver/support person: No Lives independently: Yes Household members: family and friend(s) Housing: Manufactured/Mobile home Marital status: Single Number of children: 0 Number of grandchildren: 0 Highest education level completed: 8th Grade service: No Current occupational status: disabled Pets and animals: No History of recent travel: No Leisure activites: other Leisure activities details: play card games Sexually active: No Current gender identity: Male Yolanda/Latter-Day: Other Special yolanda needs: No Agree to transfusion: Yes Financial difficulty paying for basics: Hard Mental Status Exam MSE Comments: He sounded the same as usual on the phone. He says that he is stressed out and is not sure why. He is depressed but not significantly more than usual. He has some suicidal ideation but no plan and it does not seem significantly different than his normal. He denies auditory or visual hallucinations. He denies any homicidal ideation. Vitals/I&O/Wt Last Vital Signs Temp 98 F 11/13/21 14:35 Pulse 64 11/13/21 14:35 Resp 18 11/13/21 14:35 BP 129/66 11/13/21 14:35 Pulse Ox 93 11/13/21 14:35 Weight last 48 hrs Weight 153.314 kg Data NPU : 11/13/21 14:44 11/13/21 14:44 A&P Assessment and plan (1) Suicidal ideation: Status: Acute (2) Depression: Status: Acute (3) Anxiety: Status: Acute Plan This is a morbidly obese male who is well known to the neuropsychiatry unit and me personally due to multiple contacts. He has recently stopped taking his antidepressant Zoloft and his stress is higher. He agrees to restarting it. He has not been able to see a medication provider at [facility] and will investigate if that can happen. I will also investigate if the ERE program can help him. I do not feel that admission is warranted at this point. We cannot admit him to the neuropsychiatry and without a sitter due to his requiring oxygen. I do not believe that he would benefit from psychiatric admission at this point. He promised to restart the Zoloft.He was told that if his suicidal ideation worsens or did not improve and three or four days after restarting the Zoloft and he should contact his therapist Or come to the emergency room if that was not helpful. Involuntary Hold Information 96 Hour Hold: 96 Hour Involuntary Admission: Yes 96 Hour Hold Ending Date: 06/27/21 96 Hour Hold Ending Time: 20:54 Attestations NPU Medical Necessity Statement*: The attending physician notes on medical necessity. I do not believe psychiatric admission is warranted at this point. Coding Level of Care Code Acute Certified Dental Assistant for Zac Pickett Diagnoses Suicidal ideation R45.851 Depression F32.A Anxiety F41.9
[2021-11-13 16:50] LABS: Amphetamines Screen Urine Negative (Negative); Barbiturates Screen Urine Negative (Negative); Benzodiazepines Screen Urine Negative (Negative); Cocaine Screen Urine Negative (Negative); Opiate Screen Urine Negative (Negative); PCP Screen Urine Negative (Negative); THC Screen Urine Negative (Negative)
== END 2021-11-13 17:21 | disposition home or self-care (01) ==
PROVIDERS: Emergency Provider Emergency Medicine; PCP Family Medicine
DX: F32.A Depression, unspecified (principal); F41.9 Anxiety disorder, unspecified; R45.851 Suicidal ideations; Z91.14 Patient's other noncompliance with medication regimen; I11.0 Hypertensive heart disease with heart failure; I50.9 Heart failure, unspecified; E66.01 Morbid (severe) obesity due to excess calories; Z68.44 Body mass index [BMI] 60.0-69.9, adult; Z99.81 Dependence on supplemental oxygen; Z79.82 Long term (current) use of aspirin
CPT/HCPCS: 80053; 80306; 80307; 83690; 85025; 99283

== ENCOUNTER 2021-11-15 12:08 | Emergency (ER) | payer MEDICAID, SELFPAY ==
[2021-11-15 12:24] VITALS: BP 148/63; PULSE 73; RESP 18; O2SAT 94
--- NOTE | 2021-11-15 12:33 | ECG_ITS ---
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 Measurements Intervals [place] Rate: 68 P: 89 [place]: 195 QRS: 97 QRSD: 105 T: 90 QT: 399 QTc: 427 Interpretive Statements SINUS RHYTHM BORDERLINE RIGHT AXIS DEVIATION [QRS AXIS > 90] LOW QRS VOLTAGE IN PRECORDIAL LEADS [QRS DEFLECTION < 1.0 mV IN CHEST LEADS] INCOMPLETE RIGHT BUNDLE BRANCH BLOCK [90+ ms QRS DURATION, TERMINAL R IN V1/V2, 40+ ms S IN I/aVL/V4/V5/V6] Compared to ECG 11/05/2021 03:18:27 Incomplete right bundle-branch block now present Electronically Signed On 11-15-2021 17:25:08 CDT by Wali Martinez M.D. [email or web address] [id number]
--- NOTE | 2021-11-15 12:33 | XR_ITS ---
WS: [id number] XR chest 1V portable [id number] REASON FOR EXAM: weakness FINDINGS: The chest appears unchanged compared to previous examination of 11/03/2021. Cardiomegaly. Calcified granulomatous disease in both hemithoraces. No active pulmonary parenchymal or pleural dise ase. Eventrations of the hemidiaphragms. Moderate degenerative spondylosis in the mid and lower thoracic spine. XR/XR chest 1V portable [id number] IMPRESSION: No acute chest abnormality.
--- NOTE | 2021-11-15 12:35 | W.ED.GENADLT ---
HPI - General Adult General: Chief complaint: Shortness of Breath/Dyspnea Stated complaint: WEAKNESS Time Seen by Provider: 11/15/21 12:09 History of Present Illness: 51-year-old morbidly obese male into the emergency department with complaints of weakness. The patient's been having increasing problems getting around his house and he has a poor social situation need like to discuss whether he could get into a skilled nursing. He has increasing shortness of breath especially when he lays flat he has inability to ambulate and perform activities of daily life. No recent fever or chills. He does not have any chest pain or new or different shortness of breath. He has not taken any new or different medications he is diabetic and has a large medicine list that he takes. He reports that he has been compliant with his medications. Review of Systems Narrative: Generally weak progressive over the past weeks to months. [facility] ED PFSH: Medical History Acute respiratory failure with hypoxia and hypercapnia Anemia -has chronic iron deficiency anemia, baseline Hg is around 9-10 Anxiety Chest pain Chest pain CHF (congestive heart failure) -Echo (07/2019): EF=68%, normal diastolic function, no RWMA -on oral lasix -no acute exacerbation currently CHF (congestive heart failure) Chronic anemia Chronic respiratory failure Decubitus ulcer limited to breakdown of skin (stage 2) Depression Diabetes -NIDDM type II -A1c (11/2019): 8.2 -Accuchecks, ISS, hypoglycemia precautions -consistent carb diet -anticipate hyperglycemia with steroid use Diabetes mellitus Gout History of CVA (cerebrovascular accident) Hyperlipemia, mixed Hypertension -VSS; continue to monitor -continue oral antihypertensives Hypertension Major depressive disorder, recurrent, moderate Morbid (severe) obesity due to excess calories Morbid obesity OPAL (obstructive sleep apnea) -in the process of getting CPAP set up Pneumonia Psychiatric care Transient cerebral ischemia Surgical History History of adenoidectomy History of hernia repair History of tonsillectomy History of umbilical hernia repair Family History Mother Hypertension CAD (coronary artery disease) Stroke Social History (Reviewed 11/15/21 @ 13:45 by FRANSISCO Rivera Smoking and tobacco status: never smoked Second hand smoke exposure: Yes Alcohol intake: never Adopted: No Caregiver/support person: No Lives independently: Yes Household members: family and friend(s) Housing: Manufactured/Mobile home Marital status: Single Number of children: 0 Number of grandchildren: 0 Highest education level completed: 8th Grade service: No Current occupational status: disabled Pets and animals: No History of recent travel: No Leisure activites: other Leisure activities details: play card games Sexually active: No Current gender identity: Male Yolanda/Anglican: Other Special yolanda needs: No Agree to transfusion: Yes Financial difficulty paying for basics: Hard Physical Exam Const: COMMON NORMALS: no acute distress, patient oriented x3 and alert HENMT: COMMON NORMALS: normocephalic HEAD & SCALP: normocephalic Eye: COMMON NORMALS: Equal, round and reactive pupils present and conjunctivae normal CONJUNCTIVA: Yes conjunctivae normal PUPIL: Yes Equal, round and reactive pupils present Neck/C-Spine: COMMON NORMALS: full ROM and no meningeal signs Resp: COMMON NORMALS: normal respiratory effort, No retractions, No use of accessory muscles and clear to auscultation bilaterally AUSCULTATION: clear to auscultation bilaterally GI: COMMON NORMALS: Normal to inspection, nondistended, normoactive bowel sounds present, Soft to palpation, non-tender and No hepatosplenomegaly present PALPATION: Yes Soft to palpation and Yes No hepatosplenomegaly present : COMMON NORMALS: Yes no CVA tenderness BLADDER/KIDNEY EXAM: Yes no CVA tenderness Back/Pelvis: COMMON NORMALS: no CVA tenderness Neuro: COMMON NORMALS: patient oriented x3 SENSORIUM/ORIENTATION: Yes alert MENINGEAL SIGNS: Yes no meningeal signs Skin: COMMON NORMALS: no rashes or lesions noted, no wounds and turgor normal GENERAL SKIN EXAM: no rashes or lesions noted and turgor normal Course ED course: 51-year-old morbidly obese male in with reports of worsening weakness it sounds like this is just general deconditioning and probably some heart failure that is more chronic in nature. I do not see any acute indication to admit him to the hospital. We have tried repeatedly to place him in a skilled nursing and unfortunately there is no availability at this point so the patient will need to be discharged home and he can work through his primary care for further treatment and evaluation and possible placement. Vital Signs: Vital signs: Vital Signs Pulse Rate 69 11/15/21 13:46 Respiratory Rate 12 11/15/21 13:46 Blood Pressure 141/66 11/15/21 13:46 Pulse Oximetry 95 11/15/21 13:46 [facility] - General Adult Medical Decision Making 51-year-old mildly obese male with multiple medical problems presenting with progressive weakness. Differential is broad and includes pickwickian syndrome, deconditioning, electrolyte abnormalities, profound anemia, heart failure, polypharmacy among others. Recommend complete evaluation here in the emergency department with vital sign monitoring serology and serial reexaminations. Lab Data : 11/15/21 12:57 11/15/21 12:57 Radiology Impressions Chest X-Ray 11/15/21 12:33 IMPRESSION: No acute chest abnormality. Laboratory Results WBC 3.1 10^3/uL (4.0-10.0) L 11/15/21 12:57 RBC 3.52 10^6/uL (4.1-5.3) L 11/15/21 12:57 Hgb 8.3 g/dL (11.7-16.6) L 11/15/21 12:57 Hct 30.3 % (42.0-52.0) L 11/15/21 12:57 MCV 86.1 fl (80-94) 11/15/21 12:57 MCH 23.6 pg (28.0-34.0) L 11/15/21 12:57 MCHC 27.4 g/dL (30.0-36.0) L 11/15/21 12:57 RDW 20.8 % (12.1-15.1) H 11/15/21 12:57 Plt Count 190 10^3/cmm (130-400) 11/15/21 12:57 MPV 9.5 fL (7.4-10.4) 11/15/21 12:57 Neut % (Auto) 73.6 % 11/15/21 12:57 Lymph % (Auto) 11.1 % 11/15/21 12:57 [place] % (Auto) 13.7 % 11/15/21 12:57 Eos % (Auto) 1.0 % 11/15/21 12:57 Baso % (Auto) 0.3 % 11/15/21 12:57 Neut # (Auto) 2.26 10^3/uL (1.8-7.7) 11/15/21 12:57 Lymph # (Auto) 0.3 10^3/uL (0.8-4.8) L 11/15/21 12:57 [place] # (Auto) 0.4 10^3/uL (0.2-0.9) 11/15/21 12:57 Eos # (Auto) 0.0 10^3/uL (0.0-0.8) 11/15/21 12:57 Baso # (Auto) 0.0 10^3/uL (0.0-0.1) 11/15/21 12:57 Nucleated RBC % (auto) 0 % 11/15/21 12:57 Nucleated RBCs # 0.0 /100WBC 11/15/21 12:57 Sodium 139 mmol/L (136-145) 11/15/21 12:57 Potassium 3.7 mmol/L (3.5-5.1) 11/15/21 12:57 Chloride 100 mmol/L (98-107) 11/15/21 12:57 Carbon Dioxide 30 mmol/L (22-29) H 11/15/21 12:57 Anion Gap 12.7 (5-19) 11/15/21 12:57 BUN 19 mg/dL (6-20) 11/15/21 12:57 Creatinine 1.3 mg/dL (0.7-1.2) H 11/15/21 12:57 GFR Calculation 58.7 mL/min (90-130) L 11/15/21 12:57 Glucose 126 mg/dL (65-115) H 11/15/21 12:57 Calculated Osmolality 292 mOsm/kg (285-295) 11/15/21 12:57 Calcium 9.1 mg/dL (8.5-10.5) 11/15/21 12:57 Troponin T Baseline 37 ng/L (0-15) H 11/15/21 12:57 NT-Pro-B Natriuret Pep 3716 pg/mL (0-125) H 11/15/21 12:57 Discharge Plan Discharge Patient Disposition: Home Clinical Impression: Diastolic congestive heart failure, Obstructive sleep apnea, Morbid obesity, Anemia Condition: Stable Prescriptions: No Action (DME) oxygen-air delivery systems Device See Rx Instructions .ROUTE .MEDSUPPLY Qty: 1 0RF Rx Instructions: As directed albuterol sulfate 90 mcg/actuation HFA aerosol inhaler 2 puff inhalation QID PRN (Reason: Shortness Of Breath) 0RF atorvastatin [Lipitor] 80 mg Tablet 80 mg PO BEDTIME 0RF omeprazole 40 mg Capsule,Delayed Release(Dr/Ec) 40 mg PO QAM 0RF montelukast [Singulair] 10 mg Tablet 10 mg PO BEDTIME 0RF aspirin 81 mg Tablet,Delayed Release (Dr/Ec) 81 mg PO QAM 0RF Dulera 200-5 mcg/actuation HFA aerosol inhaler 2 puff INHALATION BID 0RF allopurinol 100 mg tablet 100 mg PO QAM 0RF lisinopril 5 mg tablet 5 mg PO QAM 0RF Janumet 50-1,000 mg tablet 1 tab PO BID 0RF potassium chloride [Klor-Con M20] 20 mEq Tablet,Er Particles/Crystals 40 meq PO DAILY Qty: 30 0RF Hold Instructions: Resume on 10/14/21. sennosides-docusate sodium [Stool Softener-Laxative] 8.6-50 mg Tablet 1 tab PO DAILY Qty: 30 2RF ferrous sulfate 325 mg (65 mg iron) tablet 325 mg PO BID 0RF tamsulosin 0.4 mg capsule 0.4 mg PO DAILY 0RF ziprasidone HCl 40 mg capsule 40 mg PO DAILY@17 0RF sertraline 50 mg tablet 50 mg PO DAILY 0RF acetaminophen [Tylenol] 325 mg capsule 325 mg PO Q6H PRN (Reason: pain) Qty: 14 0RF furosemide 40 mg tablet 40 mg PO DAILY 0RF atenolol 100 mg tablet 100 mg PO DAILY 0RF glipizide 10 mg tablet extended release 24hr 10 mg PO BID 0RF folic acid 1 mg tablet 1 mg PO DAILY 0RF ascorbic acid (vitamin C) 500 mg tablet 500 mg PO BID 0RF bumetanide 1 mg tablet 1 mg PO BID 0RF albuterol sulfate 2.5 mg /3 mL (0.083 %) Solution For Nebulization 2.5 mg INHALATION Q6H PRN (Reason: Shortness Of Breath) 0RF Levemir FlexTouch U-100 Insuln 100 unit/mL (3 mL) insulin pen 6 unit SUBCUT DAILY 0RF meclizine 25 mg Tablet 25 mg PO TID Qty: 30 0RF Discharge Orders: Discharge ED (Routine); Ordered 11/15/21 Ordered By: Harlan Preston Referrals: Stewart Rosario MD [Primary Care Provider] - Discharge Diet: Diabetic Discharge Activity: Resume usual activity Patient Instructions: Opioid Safety Activity Restrictions/Additional Instructions: Follow up with PCP in 2-3 days Coding Level of Care Code ED Liquid Compounder for Chg Fwd Exam Comprehensive
[2021-11-15 13:20] LABS: Basophils % 0.3 %; Hematocrit 30.3 % (42.0-52.0); Hemoglobin 8.3 g/dL (11.7-16.6); Lymphocytes # 0.3 10^3/uL (0.8-4.8); Lymphocytes % 11.1 %; Mean Corpuscular HGB Conc 27.4 g/dL (30.0-36.0); Mean Corpuscular Hemoglobin 23.6 pg (28.0-34.0); Mean Corpuscular Volume 86.1 fl (80-94); Mean Platelet Volume 9.5 fL (7.4-10.4); Monocytes # 0.4 10^3/uL (0.2-0.9); Monocytes % 13.7 %; Neutrophils # 2.26 10^3/uL (1.8-7.7); Neutrophils % 73.6 %; Nucleated Red Blood Cells % 0 %; Platelet Count 190 10^3/cmm (130-400); Red Blood Count 3.52 10^6/uL (4.1-5.3); Red Cell Distribution Width 20.8 % (12.1-15.1); White Blood Count 3.1 10^3/uL (4.0-10.0)
[2021-11-15 13:43] LABS: Troponin(5th) Baseline 37 ng/L (0-15)
[2021-11-15 13:46] VITALS: BP 141/66; PULSE 69; RESP 12; O2SAT 95
[2021-11-15 13:50] LABS: Anion Gap 12.7 (5-19); Blood Urea Nitrogen 19 mg/dL (6-20); Calcium 9.1 mg/dL (8.5-10.5); Carbon Dioxide 30 mmol/L (22-29); Chloride 100 mmol/L (98-107); Glomerular Filtration Rate 58.7 mL/min (90-130); Glucose 126 mg/dL (65-115); NT Pro B Type Natriuretic Pept 3716 pg/mL (0-125); Osmolality Calculated 292 mOsm/kg (285-295); Potassium 3.7 mmol/L (3.5-5.1); Sodium 139 mmol/L (136-145)
--- NOTE | 2021-11-15 16:00 | DCPLANNER ---
Addendum entered by Angelic Rosa 11/15/21 17:44: Patient was accepted at [facility]. manager research and development informed nurse, charge nurse, ER physician and patients color depositing machine tender, Codie, with Adult [facility] Services. Original Note: manager research and development was asked to help find placement for patient in a residential facility. manager research and development called the following facilities: [facility] - faxed patients information [facility] - left a voicemail [facility] - no beds [facility] - left voicemail [place] - faxed patients information [facility] - no beds [facility] - declined patient [facility] - declined patient [facility] - no beds [facility] - do not take anyone younger than 60 [facility] - faxed information [facility] - no beds [facility] - declined patient manager research and development has updated nurse, charge nurse and physician. manager research and development has also called and left a voicemail for patients
[2021-11-15 17:30] VITALS: BP 156/78; PULSE 66; RESP 22; O2SAT 96
--- NOTE | 2021-11-15 17:37 | PC.NURSE ---
report called to [facility] in [place] to Samantha José .
--- NOTE | 2021-11-15 18:27 | PC.NURSE ---
[facility] notified of need for stretcher transport and set up. reservation number [id number]
[2021-11-15 20:29] VITALS: BP 139/87; PULSE 69; RESP 24; TEMP 36.7; O2SAT 95
--- NOTE | 2021-11-15 20:29 | PC.NURSE ---
ems at bedside for stretcher transport. Report given to emt . patient in no obvious distress. Patient ambulatory and pivoting to stretcher for transport
== END 2021-11-15 20:31 ==
PROVIDERS: Emergency Provider Family Medicine; PCP Family Medicine
DX: I11.0 Hypertensive heart disease with heart failure (principal); I50.30 Unspecified diastolic (congestive) heart failure; E11.9 Type 2 diabetes mellitus without complications; D50.9 Iron deficiency anemia, unspecified; E66.01 Morbid (severe) obesity due to excess calories; Z86.73 Personal history of transient ischemic attack (TIA), and cerebral infarction without residual deficits
CPT/HCPCS: 71045; 80048; 83880; 84484; 85025; 93005; 99284

== ENCOUNTER 2021-11-22 22:46 | Inpatient (IN) | payer MEDICAID, SELFPAY ==
--- NOTE | 2021-11-22 22:50 | ED_ITS ---
HPI - General Adult General: Chief complaint: General Medical Stated complaint: Low BP Time Seen by Provider: 11/22/21 22:49 History of Present Illness: Mr. Guzman is a 51-year-old gentleman with complex past medical history including CHF, hypertension, hyperlipidemia, history of stroke, morbid obesity, diabetes resides at a long term who presents to the emergency department due to hypoglycemia and low blood pressure. Apparently has had approximately 3 days of generalized abdominal discomfort and diarrhea. He has had nausea but no vomiting. Apparently tonight he had hypoglycemia despite them holding his typical medication as his blood pressure was running lower than normal. Additionally his blood pressures been lower. EMS found the patient unresponsive with a blood glucose of 24. This improved transiently with IV dextrose however he has subsequently recurred. Overall intensity symptoms moderate to severe. Course is worsened. No other specific changes in health, exacerbating, or alleviating factors identified. Onset (ago): day(s) Location: abdomen Severity: moderate Quality: other Associated symptoms: Reports nausea Review of Systems General: Reports: 10 or more systems reviewed and unremarkable except in HPI and below GI: Reports: nausea [facility] PFSH: Medical History Acute respiratory failure with hypoxia and hypercapnia Anemia -has chronic iron deficiency anemia, baseline Hg is around 9-10 Anxiety Chest pain Chest pain CHF (congestive heart failure) -Echo (07/2019): EF=68%, normal diastolic function, no RWMA -on oral lasix -no acute exacerbation currently CHF (congestive heart failure) Chronic anemia Chronic respiratory failure Decubitus ulcer limited to breakdown of skin (stage 2) Depression Diabetes -NIDDM type II -A1c (11/2019): 8.2 -Accuchecks, ISS, hypoglycemia precautions -consistent carb diet -anticipate hyperglycemia with steroid use Diabetes mellitus Gout History of CVA (cerebrovascular accident) Hyperlipemia, mixed Hypertension -VSS; continue to monitor -continue oral antihypertensives Hypertension Major depressive disorder, recurrent, moderate Morbid (severe) obesity due to excess calories Morbid obesity OPAL (obstructive sleep apnea) -in the process of getting CPAP set up Pneumonia Psychiatric care Transient cerebral ischemia Surgical History History of adenoidectomy History of hernia repair History of tonsillectomy History of umbilical hernia repair Family History Mother Hypertension CAD (coronary artery disease) Stroke Social History Smoking and tobacco status: never smoked Second hand smoke exposure: Yes Alcohol intake: never Adopted: No Caregiver/support person: No Lives independently: Yes Household members: family and friend(s) Housing: Manufactured/Mobile home Marital status: Single Number of children: 0 Number of grandchildren: 0 Highest education level completed: 8th Grade service: No Current occupational status: disabled Pets and animals: No History of recent travel: No Leisure activites: other Leisure activities details: play card games Sexually active: No Current gender identity: Male Yolanda/Adventism: Other Special yolanda needs: No Agree to transfusion: Yes Financial difficulty paying for basics: Hard Physical Exam Const: COMMON NORMALS: alert GENERAL APPEARANCE: cooperative, well developed and ill appearing (Chronically) HENMT: COMMON NORMALS: normocephalic and atraumatic HEAD & SCALP: normocephalic and atraumatic Eye: COMMON NORMALS: conjunctivae normal CONJUNCTIVA: Yes conjunctivae normal SCLERA: sclerae normal Neck/C-Spine: COMMON NORMALS: supple GENERAL: Yes trachea midline Resp: COMMON NORMALS: normal respiratory effort EFFORT & INSPECTION: Yes able to speak in complete sentences Cardio: COMMON NORMALS: regular rate and regular rhythm RATE: regular rate RHYTHM: regular rhythm GI: COMMON NORMALS: Soft to palpation PALPATION: Yes Soft to palpation, Yes Tenderness to palpation present (GI), No Guarding due to palpation present (GI) and No Rigid due to palpation PERCUSSION: normal to percussion OTHER: Guaiac positive black stool which is liquidy Extremity: GENERAL: Yes normal exam except as noted and No edema Neuro: COMMON NORMALS: moves all extremities SENSORIUM/ORIENTATION: Yes alert and No Orientation impaired Psych: COMMON NORMALS: mental status grossly normal and Normal thought process present THOUGHT PROCESS: Normal thought process present Course ED course: - Patient was seen and evaluated by me at bedside - Patient placed on cardiac monitors, IV access obtained - Initial evaluation notable for exam as above. Despite low blood glucose patient is rousable and conversant. - Labs and xrays personally interpreted by me. EKGs personally interpreted by me. - Dextrose bolus given - Labs notable for mild leukopenia, near baseline normocytic anemia. Metabolic panel without acute electrolyte derangement, glucose consistent with Accu-Chek and previously intervened upon and continued to be monitored closely. No evidence of urinary tract infection, given need for strict measurement of output Shaw catheter placed - Imaging notable for no lobar consolidation or pneumothorax on chest x-ray, there does appear to be mildly increased pulmonary vascular congestion. CT without evidence of colitis or other obvious cause of GI bleed. - Despite multiple boluses of dextrose patient's blood sugar continues to be low at which point drip was ordered. Limitations regarding ability to order concentration of dextrose given supply chain issues and nationwide shortage. Ultimately settled on D10 as well as D5 NS. Patient will have to be watched closely regarding overall volume status especially given chest x-ray findings. Prior echocardiogram results reviewed. - Upon serial reexamination after treatment the patient was mildly improved. Patient's mental status continues to be adequate despite lower blood glucose readings. He does have severe sleep apnea however continued to be able to awaken easily. BiPAP ordered as the patient uses this intermittently at home. - Based on patient history, evaluation, and testing as interpreted the most likely cause of the patient's condition is GI bleed and persistent hypoglycemia of uncertain etiology possibly related to long-acting oral antihyperglycemic medications. - The results of ED evaluation were discussed with the patient including plan for admission due to requirement for level of care not available if discharged to prevent significant worsening/deterioration. - Admitting service was contacted and Dr Grover with the hospitalist service agreed to admit the patient - Patient was admitted without further deterioration or significant events. Note: Click bubbles or prepopulated davis in note writing are used for assistance with data collection and billing and are inherently more limited than narrative and other text portions of this note. Please use narrative for additional clinical history and defer to narrative/free test for any case of contradictory information. If information appears in only free text or click bubble it should be considered present or absent as reported. Please contact note conventional mortgage underwriter for clarifications of clinical information or contradictory information. MDM is a brief summary, contradictory or erroneous seeming information should be clarified and full note should be reviewed. Vital Signs: Vital signs: Vital Signs Temperature 98.1 F 11/25/21 12:00 Pulse Rate 61 11/25/21 17:09 Respiratory Rate 18 11/25/21 17:09 Blood Pressure 125/67 11/25/21 17:09 Pulse Oximetry 92 11/25/21 17:09 [facility] - General Adult Medical Decision Making 51-year-old gentleman with complex past medical history presenting with abdominal pain and refractory hypoglycemia. Patient found to have GI bleed. Started on dextrose drip and admitted to the hospitalist service for further management and treatment. Medical Records I reviewed the patient's medical records. Lab Data I reviewed the patient's lab results. : 11/25/21 03:57 11/25/21 03:57 Radiology Impressions Chest X-Ray 11/22/21 23:53 IMPRESSION: Congestive heart failure. Abdomen/Pelvis CT 11/23/21 00:08 IMPRESSION: 1. No site of active hemorrhage is identified. 2. There is diffuse body wall edema. 3. Grade 1 anterolisthesis present at L5-S1 secondary to L5 pars defects. 4. There is a small amount of ascites. 5. Cirrhosis with portal venous hypertension. 6. Multiple nonobstructing right renal stones, largest measures 8 mm. COMMENTS: Consistent with the [place] [employer]'s Incidental Findings Committee white paper (J Am Eryn Radiol 2018): Any incidental renal lesion less than 1 cm or classified as too small to characterize, or any incidental cystic renal lesion characterized as simple-appearing, is likely benign. No follow-up imaging is recommended for these lesions per consensus recommendations based on imaging criteria. Laboratory Results WBC 3.4 10^3/uL (4.0-10.0) L 11/22/21 21:35 RBC 3.89 10^6/uL (4.1-5.3) L 11/22/21 21:35 Hgb 8.9 g/dL (11.7-16.6) L 11/22/21 21:35 Hct 33.2 % (42.0-52.0) L 11/22/21 21:35 MCV 85.3 fl (80-94) 11/22/21 21:35 MCH 22.9 pg (28.0-34.0) L 11/22/21 21:35 MCHC 26.8 g/dL (30.0-36.0) L 11/22/21 21:35 RDW 20.3 % (12.1-15.1) H 11/22/21 21:35 Plt Count 150 10^3/cmm (130-400) 11/22/21 21:35 MPV 10.0 fL (7.4-10.4) 11/22/21 21:35 Neut % (Auto) 80.6 % 11/22/21 21:35 Lymph % (Auto) 10.3 % 11/22/21 21:35 [place] % (Auto) 8.5 % 11/22/21 21:35 Eos % (Auto) 0.3 % 11/22/21 21:35 Baso % (Auto) 0.0 % 11/22/21 21:35 Neut # (Auto) 2.75 10^3/uL (1.8-7.7) 11/22/21 21:35 Lymph # (Auto) 0.4 10^3/uL (0.8-4.8) L 11/22/21 21:35 [place] # (Auto) 0.3 10^3/uL (0.2-0.9) 11/22/21 21:35 Eos # (Auto) 0.0 10^3/uL (0.0-0.8) 11/22/21 21:35 Baso # (Auto) 0.0 10^3/uL (0.0-0.1) 11/22/21 21:35 Nucleated RBC % (auto) 0 % 11/22/21 21: Nucleated RBCs # 0.0 /100WBC 11/22/21 21:35 PT 16.20 SECONDS (12.1-14.9) H 11/23/21 00:28 INR 1.26 (0.8-1.2) H 11/23/21 00:28 APTT 34.6 SECONDS (23.9-36.7) 11/23/21 00:28 Sodium 142 mmol/L (136-145) 11/22/21 21:35 Potassium 4.2 mmol/L (3.5-5.1) 11/22/21 21:35 Chloride 102 mmol/L (98-107) 11/22/21 21:35 Carbon Dioxide 32 mmol/L (22-29) H 11/22/21 21:35 Anion Gap 12.2 (5-19) 11/22/21 21:35 BUN 14 mg/dL (6-20) 11/22/21 21:35 Creatinine 1.0 mg/dL (0.7-1.2) 11/22/21 21:35 GFR Calculation 79.4 mL/min (90-130) L 11/22/21 21:35 Glucose 22 mg/dL (65-115) L* 11/22/21 21:35 POC Glucose 66 mg/dL (70-110) L 11/23/21 04:11 Calculated Osmolality 290 mOsm/kg (285-295) 11/22/21 21:35 Calcium 8.3 mg/dL (8.5-10.5) L 11/22/21 21:35 Iron 17 ug/dL (59-158) L 11/23/21 04:05 TIBC 247 mcg/dl 11/23/21 04:05 % Saturation 6.8 % (20-50) L 11/23/21 04:05 Unsat Iron Binding 230 ug/dL (112-347) 11/23/21 04:05 Ferritin 31 ng/mL (30-400) 11/23/21 04:05 Total Bilirubin 0.9 mg/dL (0.15-1.2) 11/22/21 21:35 AST 14 U/L (0-40) 11/22/21 21:35 ALT 13 U/L (0-41) 11/22/21 21:35 Alkaline Phosphatase 327 IU/L (40-130) H 11/22/21 21:35 Troponin T Baseline 28 ng/L (0-15) H 11/22/21 21:35 Troponin T 120 Minute 27.19 ng/L (0-15) H 11/23/21 00:28 Delta Troponin T -0.81 ABS# (0-10) L 11/23/21 00:28 Troponin T Hi Sens 6Hr 32.78 ng/L (0-15) H 11/23/21 04:05 Troponin T Hi Sens 6Hr Delta 4.78 ng/L (0-12) 11/23/21 04:05 C-Reactive Protein 8.5 mg/L (0.0-4.9) H 11/23/21 04:05 NT-Pro-B Natriuret Pep 3711 pg/mL (0-125) H 11/23/21 04:05 Total Protein 6.4 g/dL (6.6-8.7) L 11/22/21 21:35 Albumin 3.6 g/dL (3.5-5.2) 11/22/21 21:35 Globulin 2.8 g/dL (1.3-4.6) 11/22/21 21:35 Procalcitonin 0.08 ng/mL (0-0.5) 11/23/21 04:05 Random Cortisol 9.90 ug/dL (2.47-19.5) 11/23/21 04:05 Urine Color Yellow (Yellow) 11/23/21 01:15 Urine Appearance Clear (CLEAR) 11/23/21 01:15 Urine pH 7 (5-7) 11/23/21 01:15 Ur Specific [place] 1.005 (1.005-1.030) 11/23/21 01:15 Urine Protein Neg (Negative) 11/23/21 01:15 Urine Glucose (UA) Norm (Normal) 11/23/21 01:15 Urine Ketones Negative (Negative) 11/23/21 01:15 Urine Blood Neg (Negative) 11/23/21 01:15 Urine Nitrate Negative (Negative) 11/23/21 01:15 Urine Bilirubin Neg (Negative) 11/23/21 01:15 Urine Urobilinogen 1 mg/dL (Negative) H 11/23/21 01:15 Ur Leukocyte Esterase Negative (Negative) 11/23/21 01:15 Ethyl Alcohol < 10 mg/dL (0-10) 11/23/21 04:05 Critical Care Time Critical Care Time: Critical Care Time: Yes Total Critical Care Time: 55 Attestation: Due to a high probability of clinically significant, possibly life threatening deterioration, the patient required my highest level of attention and prepa redness to intervene emergently and I personally spent this critical care time directly and personally managing the patient. This critical care time included obtaining a history; examining the patient; pulse oximetry; ordering and review of laboratory and imaging studies; arranging urgent treatment with development of a management plan; evaluation of patient's response to treatment; frequent reassessment; and, discussions with other providers as applicable. It was exclusive of separately billable procedures. Primary system involved is gastrointestinal and endocrine Discharge Plan Discharge Patient Disposition: Admitted As Inpatient Admit Provider: Aldo Grover Clinical Impression: Acute GI bleeding, Hypoglycemia Condition: Stable Discharge Diet: Diabetic Discharge Activity: Resume usual activity Coding Level of Care Code ED Sanitarian Aide for Zac Pickett Exam Comprehensive
[2021-11-22 22:56] VITALS: BP 137/65; PULSE 66; RESP 13; TEMP 36.6; BMI 71.4
--- NOTE | 2021-11-22 23:05 | ECG_ITS ---
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 Measurements Intervals [place] Rate: 72 P: 104 MO: 144 QRS: 124 QRSD: 100 T: 88 QT: 396 QTc: 434 Interpretive Statements SINUS RHYTHM RIGHT AXIS DEVIATION [QRS AXIS > 100] LOW QRS VOLTAGE [QRS DEFLECTION < 0.5/1.0 mV IN LIMB/CHEST LEADS] INCOMPLETE RIGHT BUNDLE BRANCH BLOCK Compared to ECG 11/15/2021 12:47:59 No significant changes Electronically Signed On 11-23-2021 20:30:27 CDT by Crys Diggs M.D. [id number] f
[2021-11-22 23:08] LABS: Eosinophils % 0.3 %; Hematocrit 33.2 % (42.0-52.0); Hemoglobin 8.9 g/dL (11.7-16.6); Lymphocytes # 0.4 10^3/uL (0.8-4.8); Lymphocytes % 10.3 %; Mean Corpuscular HGB Conc 26.8 g/dL (30.0-36.0); Mean Corpuscular Hemoglobin 22.9 pg (28.0-34.0); Mean Corpuscular Volume 85.3 fl (80-94); Monocytes # 0.3 10^3/uL (0.2-0.9); Monocytes % 8.5 %; Neutrophils # 2.75 10^3/uL (1.8-7.7); Neutrophils % 80.6 %; Nucleated Red Blood Cells % 0 %; Platelet Count 150 10^3/cmm (130-400); Red Blood Count 3.89 10^6/uL (4.1-5.3); Red Cell Distribution Width 20.3 % (12.1-15.1); White Blood Count 3.4 10^3/uL (4.0-10.0)
[2021-11-22 23:27] VITALS: O2SAT 93
[2021-11-22 23:29] VITALS: BP 137/65; PULSE 66; RESP 20; O2SAT 93
[2021-11-22 23:31] LABS: Alanine Aminotransferase 13 U/L (0-41); Albumin Level 3.6 g/dL (3.5-5.2); Alkaline Phosphatase 327 IU/L (40-130); Anion Gap 12.2 (5-19); Aspartate Amino Transferase 14 U/L (0-40); Blood Urea Nitrogen 14 mg/dL (6-20); Calcium 8.3 mg/dL (8.5-10.5); Carbon Dioxide 32 mmol/L (22-29); Chloride 102 mmol/L (98-107); Globulin 2.8 g/dL (1.3-4.6); Glomerular Filtration Rate 79.4 mL/min (90-130); Potassium 4.2 mmol/L (3.5-5.1); Sodium 142 mmol/L (136-145); Total Bilirubin 0.9 mg/dL (0.15-1.2); Total Protein 6.4 g/dL (6.6-8.7)
[2021-11-22 23:42] LABS: Osmolality Calculated 290 mOsm/kg (285-295)
[2021-11-22 23:46] LABS: Glucose 22 mg/dL (65-115)
--- NOTE | 2021-11-22 23:53 | XRR_ITS ---
PROCEDURE INFORMATION: Exam: XR Chest Exam date and time: 11/23/2021 1:18 AM Age: 51 years old Clinical indication: Shortness of breath; Additional info: SOB TECHNIQUE: Imaging protocol: XR of the chest. Views: 1 view. COMPARISON: CR XR chest 1V portable [id number] 11/15/2021 12:40 PM FINDINGS: Lungs: There is enlargement of the pulmonary vascularity. There is thickening of the interstitial markings. Pleural spaces: Unremarkable. No pleural effusion. No pneumothorax. Heart/Mediastinum: The heart is mildly enlarged. Bones/joints: Unremarkable. XR/XR chest 1V portable [id number] IMPRESSION: Congestive heart failure.
[2021-11-22] MEDS: dextrose 50% syringe 50 mL IVP (23:58)
[2021-11-23] VITALS (56 sets, daily range): BP systolic 103–189; BP diastolic 49–103; PULSE 49–85; RESP 0–29; TEMP 36.6; O2SAT 67–99; BMI 76.5
--- NOTE | 2021-11-23 00:08 | CTR_ITS ---
PROCEDURE INFORMATION: Exam: CT Abdomen And Pelvis With Contrast Exam date and time: 11/23/2021 1:33 AM Age: 51 years old Clinical indication: Other: Gi bleed; Prior surgery; Surgery date: 6+ months; Surgery type: Hernia SX x2 TECHNIQUE: Imaging protocol: Computed tomography of the abdomen and pelvis with contrast. Radiation optimization: All CT scans at this facility use at least one of these dose optimization techniques: automated exposure control; mA and/or kV adjustment per patient size (includes targeted exams where dose is matched to clinical indication); or iterative reconstruction. Contrast material: OMNI 300; Contrast volume: 99 ml; Contrast route: INTRAVENOUS (IV); COMPARISON: CT abdomen pelvis w con* [id number] 11/03/2021 12:30 PM RADIATION DOSE METRICS: Total DLP (mGy-cm): 1875.21 FINDINGS: Lungs: The lung bases are clear. No effusion Liver: There is cirrhotic morphology of the liver with multiple upper abdominal collateral vessels and splenomegaly. Gallbladder and bile ducts: No wall thickening, pericholecystic fluid or stones. Pancreas: Normal. No ductal dilation. Spleen: See Liver finding. Adrenal glands: Normal. No mass. Kidneys and ureters: 2.6 cm left renal cyst. Multiple nonobstructing right renal stones, largest measures 8 mm. Stomach and bowel: Unremarkable. No obstruction. No mucosal thickening. Appendix: No evidence of appendicitis. Intraperitoneal space: There is a small amount of ascites. Vasculature: Unremarkable. No abdominal aortic aneurysm. Lymph nodes: Unremarkable. No enlarged lymph nodes. Urinary bladder: Unremarkable as visualized. Reproductive: Unremarkable as visualized. Bones/joints: Grade 1 anterolisthesis present at L5-S1 secondary to L5 pars defects. Soft tissues: There is diffuse body wall edema. Other findings: No site of active hemorrhage is identified. CT/CT abdomen pelvis w con* [id number] IMPRESSION: 1. No site of active hemorrhage is identified. 2. There is diffuse body wall edema. 3. Grade 1 anterolisthesis present at L5-S1 secondary to L5 pars defects. 4. There is a small amount of ascites. 5. Cirrhosis with portal venous hypertension. 6. Multiple nonobstructing right renal stones, largest measures 8 mm. COMMENTS: Consistent with the [place] [employer]'s Incidental Findings Committee white paper (J Am Eryn Radiol 2018): Any incidental renal lesion less than 1 cm or classified as too small to characterize, or any incidental cystic renal lesion characterized as simple-appearing, is likely benign. No follow-up imaging is recommended for these lesions per consensus recommendations based on imaging criteria.
--- NOTE | 2021-11-23 00:09 | ECG_ITS ---
[facility] Test Date: 2021-11-23 Pat Name: Arnol Guzman Department: Room: Gender: Male Rn Internal Medicine: : 1970 Requested By: Marin Rain Order Number: [id number] Bernardino MD: Crys Diggs M.D. Measurements Intervals [place] Rate: 64 P: [place]: QRS: 100 QRSD: 109 T: 69 QT: 417 QTc: 431 Interpretive Statements SINUS RHYTHM INDETERMINATE AXIS LOW QRS VOLTAGE IN PRECORDIAL LEADS [QRS DEFLECTION < 1.0 mV IN CHEST LEADS] POSSIBLE ANTERIOR MYOCARDIAL INFARCTION , PROBABLY OLD Compared to ECG 11/15/2021 12:47:59 Supraventricular rhythm now present Indeterminate axis now present Myocardial infarct finding now present Sinus rhythm no longer present Electronically Signed On 11-24-2021 7:56:47 CDT by Crys Diggs M.D. [id number]
[2021-11-23 00:49] LABS: INR 1.26 (0.8-1.2)
[2021-11-23 00:50] LABS: Partial Thromboplastin Time 34.6 SECONDS (23.9-36.7)
[2021-11-23 00:52] LABS: Troponin(5th) Baseline 28 ng/L (0-15)
[2021-11-23] MEDS: pantoprazole 40 mg SDV 80 MG IVP (00:54)
[2021-11-23 00:57] LABS: Troponin 5 2HR 27.19 ng/L (0-15)
[2021-11-23 01:02] LABS: Troponin 5 2HR Delta -0.81 ABS# (0-10)
[2021-11-23] MEDS: dextrose 50% syringe 50 mL IVP ×2 (01:26→03:23)
[2021-11-23 01:32] LABS: Add Urine Microscopic? NO; Charge for UA Resulting for Rev
[2021-11-23] MEDS: iohexol 300 mg/mL 100 mL Btl IV (01:32)
[2021-11-23 01:35] LABS: Specific Gravity, Urine 1.005 (1.005-1.030); Urine Appearance Clear (CLEAR); Urine Color Yellow (Yellow); pH Urine 7 (5-7)
[2021-11-23 01:36] LABS: Bilirubin Urine Neg (Negative); Blood Urine Neg (Negative); Glucose Urine UA Norm (Normal); Ketones Urine Negative (Negative); Leukocyte Esterase Urine Negative (Negative); Nitrate Urine Negative (Negative); Protein Urine Neg (Negative); Urobilinogen Urine 1 mg/dL (Negative)
[2021-11-23] MEDS: dextrose 5%-sod chloride 0.9% 1,000 ML 150 ML IV (01:55)
[2021-11-23 02:02] LABS: Glucose Point of Care 42 mg/dL (70-110)
[2021-11-23 02:02] LABS: Glucose Point of Care 54 mg/dL (70-110)
[2021-11-23 02:02] LABS: Glucose Point of Care 34 mg/dL (70-110)
[2021-11-23 02:02] LABS: Glucose Point of Care 45 mg/dL (70-110)
[2021-11-23 02:02] LABS: Glucose Point of Care 45 mg/dL (70-110)
[2021-11-23] MEDS: dextrose 50% syringe 50 mL 25 ML IVP (02:03)
--- NOTE | 2021-11-23 02:09 | ECG_ITS ---
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 Measurements Intervals [place] Rate: 63 P: NC: QRS: 111 QRSD: 104 T: 87 QT: 426 QTc: 437 Interpretive Statements SUPRAVENTRICULAR RHYTHM INDETERMINATE AXIS LOW QRS VOLTAGE IN PRECORDIAL LEADS [QRS DEFLECTION < 1.0 mV IN CHEST LEADS] INCOMPLETE RIGHT BUNDLE BRANCH BLOCK [90+ ms QRS DURATION, TERMINAL R IN V1/V2, 40+ ms S IN I/aVL/V4/V5/V6] Compared to ECG 11/23/2021 00:25:26 Myocardial infarct finding no longer present Electronically Signed On 11-24-2021 7:59:16 CDT by Crys Diggs M.D. [id number]
[2021-11-23 03:01] LABS: Glucose Point of Care 47 mg/dL (70-110)
[2021-11-23] MEDS: dextrose 10% 1,000 ML 50 ML IV ×2 (03:20→11:12)
[2021-11-23] MEDS: FUROsemide 10 mg/mL SDV 4mL 40 MG IVP (03:23)
[2021-11-23 03:41] LABS: Glucose Point of Care 36 mg/dL (70-110)
[2021-11-23 03:41] LABS: Glucose Point of Care 34 mg/dL (70-110)
[2021-11-23 04:15] LABS: Glucose Point of Care 66 mg/dL (70-110)
[2021-11-23 04:34] LABS: Troponin 5 6HR 32.78 ng/L (0-15); Troponin 5 6HR Delta 4.78 ng/L (0-12)
--- NOTE | 2021-11-23 04:48 | P.HP_ITS ---
Providers/Chief Complaint Admitting Physician: Aldo Grover DO Primary Care Provider: Stewart Rosario MD Chief Complaint: Low BP History of Present Illness The patient is a 51-year-old male who was transferred from the senior care due to hypoglycemia. He states he is fark start feeling unwell approximately 3 days prior to hospitalization. He admits to onset of fever, rigors, abdominal pain, diarrhea. He denies nausea, vomiting. He states that he chronically has coughing and wheezing. Apparently patient has been having melena he denies hematochezia. The patient takes aspirin at home. The patient is a poor historian at best. Most information I gathered was from medical records, nursing staff, and simple questions posed to the patient. He presents for further evaluation Review of Systems General: Reports: 10 or more systems reviewed and unremarkable except in HPI and below Medications/Allergies Home Medications Medication Instructions Recorded Confirmed Last Taken Type atorvastatin 80 mg tablet (Lipitor) 80 mg PO BEDTIME 07/14/19 11/03/21 07/24/21 History montelukast 10 mg tablet 10 mg PO BEDTIME 07/14/19 11/03/21 07/24/21 History (Singulair) omeprazole 40 mg capsule,delayed 40 mg PO QAM 07/14/19 11/03/21 07/24/21 History release oxygen-air delivery systems #1 03/11/20 11/03/21 Unknown History albuterol sulfate 90 mcg/actuation 2 puff INHALATION QID PRN 05/19/20 11/03/21 07/25/21 History aerosol inhaler aspirin 81 mg tablet,delayed 81 mg PO QAM 09/13/20 11/03/21 07/24/21 History release mometasone-formoterol HFA 200 2 puff INHALATION BID 11/24/20 11/03/21 07/24/21 History mcg-5 mcg/actuation aerosol inhaler (Dulera) allopurinol 100 mg tablet 100 mg PO QAM 02/16/21 11/03/21 07/24/21 History lisinopril 5 mg tablet 5 mg PO QAM 02/16/21 11/03/21 07/24/21 History sitagliptin 50 mg-metformin 1,000 1 tab PO BID 02/16/21 11/03/21 07/24/21 History mg tablet (Janumet) ferrous sulfate 325 mg (65 mg 325 mg PO BID 06/22/21 11/03/21 07/24/21 History iron) tablet sertraline 50 mg tablet 50 mg PO DAILY 07/13/21 11/03/21 07/24/21 History tamsulosin 0.4 mg capsule 0.4 mg PO DAILY 07/13/21 11/03/21 07/24/21 History ziprasidone HCl 40 mg capsule 40 mg PO DAILY@17 07/13/21 11/03/21 07/24/21 History acetaminophen 325 mg capsule 325 mg PO Q6H PRN #14 cap 07/15/21 11/03/21 Unknown Rx (Tylenol) potassium chloride 20 mEq 40 meq PO DAILY #30 tab 09/01/21 11/03/21 Unknown Rx tablet,extended release(part/cryst) (Klor-Con M) sennosides 8.6 mg-docusate sodium 1 tab PO DAILY #30 tab 09/06/21 11/03/21 Unknown Rx 50 mg tablet (Stool Softener-Laxative) albuterol sulfate 2.5 mg INHALATION Q6H PRN 10/05/21 11/03/21 Unknown History insulin detemir U-100 100 unit/mL 6 unit SUBCUT DAILY 10/05/21 11/03/21 Unknown History (3 mL) subcutaneous pen (Levemir FlexTouch U-100 Insulin) meclizine 25 mg tablet 25 mg PO TID #30 tab 10/10/21 11/03/21 Unknown Rx ascorbic acid (vitamin C) 500 mg 500 mg PO BID 11/03/21 11/03/21 Unknown History tablet atenolol 100 mg tablet 100 mg PO DAILY 11/03/21 11/03/21 Unknown History folic acid 1 mg tablet 1 mg PO DAILY 11/03/21 11/03/21 Unknown History furosemide 40 mg tablet 40 mg PO DAILY 11/03/21 11/04/21 Unknown History glipizide 10 mg tablet, extended 10 mg PO BID 11/03/21 11/03/21 Unknown History release 24 hr bumetanide 1 mg tablet 1 mg PO BID 11/04/21 11/04/21 Unknown History Allergies Allergy/AdvReac Type Severity Reaction Status Date / Time Penicillins Allergy ALGY-Hives Verified 11/03/21 07:23 diltiazem [From Cardizem] AdvReac ADR/ALGY-Pa Verified 11/03/21 07:23 lpitations PFSH Acute PFSH: Medical History Acute respiratory failure with hypoxia and hypercapnia Anemia -has chronic iron deficiency anemia, baseline Hg is around 9-10 Anxiety Chest pain Chest pain CHF (congestive heart failure) -Echo (07/2019): EF=68%, normal diastolic function, no RWMA -on oral lasix -no acute exacerbation currently CHF (congestive heart failure) Chronic anemia Chronic respiratory failure Decubitus ulcer limited to breakdown of skin (stage 2) Depression Diabetes -NIDDM type II -A1c (11/2019): 8.2 -Accuchecks, ISS, hypoglycemia precautions -consistent carb diet -anticipate hyperglycemia with steroid use Diabetes mellitus Gout History of CVA (cerebrovascular accident) Hyperlipemia, mixed Hypertension -VSS; continue to monitor -continue oral antihypertensives Hypertension Major depressive disorder, recurrent, moderate Morbid (severe) obesity due to excess calories Morbid obesity OPAL (obstructive sleep apnea) -in the process of getting CPAP set up Pneumonia Psychiatric care Transient cerebral ischemia Surgical History History of adenoidectomy History of hernia repair History of tonsillectomy History of umbilical hernia repair Family History Mother Hypertension CAD (coronary artery disease) Stroke Social History Smoking and tobacco status: never smoked Second hand smoke exposure: Yes Alcohol intake: never Adopted: No Caregiver/support person: No Lives independently: Yes Household members: family and friend(s) Housing: Manufactured/Mobile home Marital status: Single Number of children: 0 Number of grandchildren: 0 Highest education level completed: 8th Grade service: No Current occupational status: disabled Pets and animals: No History of recent travel: No Leisure activites: other Leisure activities details: play card games Sexually active: No Current gender identity: Male Yolanda/Methodist: Other Special yolanda needs: No Agree to transfusion: Yes Financial difficulty paying for basics: Hard Vitals/I&O/Wt Last Vital Signs Temp 97.9 F 11/22/21 22:56 Pulse 67 11/23/21 04:15 Resp 14 11/23/21 04:15 BP 149/75 11/23/21 04:15 Pulse Ox 95 11/23/21 04:15 11/22/21 11/22/21 11/23/21 14:59 22:59 06:59 Intake Total 245 / 245 Balance 245 / 245 Weight last 48 hrs Weight 171.458 kg Physical Exam Narrative: General: -Alert -No acute distress -No dyspnea -No tachypnea Head: -Atraumatic -Normocephalic Eyes: -Pupils equally round and reactive to light and accommodation -Extraocular muscles intact Neurological: -Cranial nerves II-XII intact Neck: -No jugular venous distention -No thyromegaly -No cervical lymphadenopathy Heart: -Regular rate -Regular rhythm -No murmurs -No gallops -No rubs Lungs: -No wheeze -No rhonchi -No rales ? Abdomen: -Normal bowel sounds in all four quadrants -No rebound -No guarding -No tenderness Extremities: -2/4 pulse in all four extremities -No clubbing -No cyanosis -No edema -No calf tenderness present bilaterally -Negative Radha?s sign bilaterally Musculoskeletal: -5/5 bilateral upper extremity strength -5/5 bilateral lower extremity strength -Sensorium of bilateral upper extremities are equal and intact -Sensorium of bilateral lower extremities are equal and intact ? Additional Details / Additional Findings / Exceptions / Miscellaneous: Data : 11/22/21 21:35 11/22/21 21:35 Micro: Microbiology 11/23/21 02:55 Blood Culture - Preliminary Blood SPECIMEN COLLECTED 11/23/21 00:28 Blood Culture - Preliminary Blood SPECIMEN COLLECTED A&P Assessment and plan (1) Acute GI bleeding: Status: Acute Plan Hypoglycemia. Patient has known diabetic and takes anti-hyperglycemic agents at the senior care. Will check fasting glucose every 2 hours. IV D10W at 50 ML's per hour Melena. Patient's hemoglobin appears to be at his baseline. Will check hemoglobin level every 6 hours. Nothing by mouth. Humerus department physician has notified me that gastroenterology has been notified of this patient. Patient's INR slightly elevated PTT is within normal limits. He takes aspirin at home which will be held. Protonix 40 Mill cans IV twice a day Po sulfate 1 g by mouth every 6 hours History of suicidal ideation Anxiety Depression BPH Constipation Gout Elevated troponin, chronic. Will monitor patient on telemetry and checks her cardiac enzymes. Will monitor serial EKGs. Coagulopathy. Will monitor PT/INR periodically History of CVA Obstructive sleep apnea. CPAP/BiPAP: Okay to use home device and/or pressure when sleeping Anemia, chronic. Will monitor hemoglobin every 6 hours. Fecal occult blood is positive. Check serum ferritin, and iron panel COPD, O2 dependent 3 L Documented history of CHF with preserved ejection fraction and grade 2 diastolic dysfunction Diabetes. Will check fasting glucose every before meals and at bedtime and provide insulin sliding scale GERD. Protonix 40 Mill grams IV twice a day plus Carafate 1 g by mouth every before meals and at bedtime Hyperlipidemia Hypertension Obesity. The patient will need to be counseled regarding lifestyle modification Hypothyroid and Cirrhosis with portal hypertension Nephrolithiasis, asymptomatic Moderate pulmonary hypertension Obesity hypoventilation syndrome DVT Proflex is. Bilateral SCD Attestations Medical Necessity Statement*: The patient's anticipated length of stay is greater than 2 midnights for evaluation of his melena as well as his hypoglycemia Coding Level of Care Code Acute Reception Manager for Zac Pickett Diagnoses Acute GI bleeding K92.2
[2021-11-23] MEDS: pantoprazole 40 mg SDV IVP ×2 (05:41→17:37)
[2021-11-23 05:44] LABS: Ferritin 31 ng/mL (30-400); Iron 17 ug/dL (59-158); Percent Saturation 6.8 % (20-50); Total Iron Binding Capacity 247 mcg/dl; Unsaturated Iron Binding 230 ug/dL (112-347)
--- NOTE | 2021-11-23 06:00 | PC.NURSE ---
Blood Sugar At 0549, patient's POC blood glucose was 27. Glucose rechecked at 0551 revealing 29. Per protocol, 1 amp of D50 IV was to be administered as well as starting d5w at 100ml/hr; due to supply shortage of D50, pharmacy was consulted and information received to bolus 250 ml of D10 in place of amp. Patient already receiving D10 maintenance fluids at 50 ml/hr, Dr. Grover contacted and order received to administer the bolus as instructed, in addition to administering 1 mg glucagon IV once, and leaving the D10 running at 50 ml/hr following the bolus in place of the d5w. Medications administered per SEP. Blood glucose checks following medication revealed 72 and 96 respectively.
--- NOTE | 2021-11-23 06:09 | ECG_ITS ---
[facility] Test Date: 2021-11-23 Pat Name: Arnol Guzman Department: Room: ICU10 Gender: Male Commercial Credit Specialist: : [id number] Requested By: Marin Rain Order Number: [id number] Bernardino MD: Crys Diggs M.D. Measurements Intervals [place] Rate: 67 P: 65 VT: 176 QRS: 120 QRSD: 109 T: 93 QT: 430 QTc: 456 Interpretive Statements SINUS RHYTHM INDETERMINATE AXIS LOW QRS VOLTAGE IN PRECORDIAL LEADS [QRS DEFLECTION < 1.0 mV IN CHEST LEADS] MINIMAL ST DEPRESSION [0.025+ mV ST DEPRESSION] Compared to ECG 11/23/2021 01:50:27 ST (T wave) deviation now present Supraventricular rhythm no longer present Electronically Signed On 11-24-2021 7:58:54 CDT by Crys Diggs M.D. [email or web address]
[2021-11-23 06:21] LABS: Glucose Point of Care 96 mg/dL (70-110)
[2021-11-23 06:21] LABS: Glucose Point of Care 29 mg/dL (70-110)
[2021-11-23 06:21] LABS: Glucose Point of Care 27 mg/dL (70-110)
[2021-11-23] MEDS: sucralfate 1 gm Tablet PO ×2 (06:39→17:37)
[2021-11-23 06:57] LABS: Glucose Point of Care 72 mg/dL (70-110)
[2021-11-23 07:46] LABS: Hemoglobin 9.1 g/dL (11.7-16.6)
[2021-11-23 08:23] LABS: Glucose Point of Care 26 mg/dL (70-110)
[2021-11-23] MEDS: octreotide 100 mcg/mL SDV IVP (08:37)
[2021-11-23 09:13] LABS: Alcohol Level < 10 mg/dL (0-10)
[2021-11-23 09:16] LABS: Glucose Point of Care 103 mg/dL (70-110)
[2021-11-23 09:38] LABS: NT Pro B Type Natriuretic Pept 3711 pg/mL (0-125); Procalcitonin 0.08 ng/mL (0-0.5)
[2021-11-23 09:49] LABS: C Reactive Protein 8.5 mg/L (0.0-4.9)
--- NOTE | 2021-11-23 09:56 | PC.PHAR ---
pts is from [facility] [phone]-medications entered are meds from [facility]
--- NOTE | 2021-11-23 10:20 | PC.CHAP ---
Pastoral Care Encounter/Spiritual Assessment Type of Contact [] Declined prepress operator visit [] Patient/Family/Request visit [] Outpatient visit [] Follow-up visit [] Physician referral [] Code/Alert [x] Routine visit [] Staff referral [] Actively dying [] Patient sleeping [] Family support [] [] Out of room [] Palliative care [] [] Receiving care in room [] Pre-surgical visit [] Trauma [] Long length of stay [x] ICU visit [x] Other: vent Relational/Emotional Strength [] Patient feels connected with others/family/visitors/staff [] Distress [] Loneliness/isolation [] Abandonment Spirituality of Patient [] Person of Yolanda [] Attends Rastafarian of their Yolanda [] Believes in Prayer [] Reads Bible or Episcopalian materials [] There are Spiritual issues to be addressed Rail Bonder Interventions [x] Prayer [] Active listening [] Non-anxious presence [] Spiritual/emotional support [] Crisis/trauma care [] Spiritual counseling [] Bereavement support [] Provided bereavement packet [] Provided Bible/devotional materials [] Provided toy/stuffed animal, coloring book to patient or family member [] Provided Communion [] Anointing/[place] [] Salvation [x] Completed spiritual assessment [] Other: Impact on Illness or Injury [] Angry [] Fearful [] Anxious [] Often cries [] Exhaustion [] Unable to work [] Unable to attend christianity [] Unable to walk/stand [] Unable to read [] Unable to drive [] Unable to eat/drink [] Unable to sleep [] Unable to be with family [] Patient intubated [] Other: Summary Time spent with patient
[2021-11-23 10:54] LABS: Glucose Point of Care 106 mg/dL (70-110)
[2021-11-23 12:03] LABS: Glucose Point of Care 113 mg/dL (70-110)
--- NOTE | 2021-11-23 12:28 | P.PN_ITS ---
Subjective Subjective: Patient was seen this morning, currently in ICU, remains on BiPAP, alert to person, oriented to place, not to time, he does follow commands such as squeezing my fingers, his blood sugars did dropped into the low 20s, his D10 was increased to 100 cc an hour, given 1 dose of glucagon, given his history of glipizide use, also given octreotide for sulfonylurea associated hypoglycemia, repeat blood sugars in the 100s, he is much more alert and awake, reexamined, clinical improvement, following more commands, when asked him if he was compliant with his BiPAP at the long term he was not able to give a straightforward answer, will reach out to the long term I spoke to [facility], as per documentation patient left AGAINST MEDICAL ADVICE on his hospitalization on 11/13/2021, then he came to the emergency room at 11/15/2021 from there it looks like he was admitted to [facility], as they have him admitted starting on 11/15/2021, he was not compliant with BiPAP, then eventually went to [facility] on 11/17/2021, and then the long term got orders for BiPAP therapy on 11/17/2021, from thereon and nursing staff tell me that he is intermittently compliant with BiPAP they tell me that it is [place] the [place], he is blood sugars have been running lower rece ntly, than they normally have, no recent changes to his medications, no recent illness, Vitals/I&O/Wt Last Vital Signs Temp 97.8 F 11/23/21 05:00 Pulse 59 L 11/23/21 10:09 Resp 13 11/23/21 08:00 BP 109/49 11/23/21 07:15 Pulse Ox 97 11/23/21 10:09 11/22/21 11/23/21 11/23/21 22:59 06:59 14:59 Intake Total 627.25 / 627.25 298.333 / 298.333 Output Total 1775 / 1775 Balance -1147.75 / -1147.75 298.333 / 298.333 Weight last 48 hrs Weight 183.705 kg Weight 171.458 kg Physical Exam Const: COMMON NORMALS: no acute distress GENERAL APPEARANCE: cooperative ORIENTATION/CONSCIOUSNESS: Yes awake and Yes oriented to person; not oriented to place and not oriented to time OTHER: Alert to person, not to place, not to time, a bit drowsy, does awaken up, does follow commands Resp: COMMON NORMALS: normal respiratory effort, No retractions, No use of accessory muscles and clear to auscultation bilaterally AUSCULTATION: clear to auscultation bilaterally Cardio: COMMON NORMALS: regular rate, regular rhythm, S1 normal heart sound present and S2 normal heart sound present RATE: regular rate RHYTHM: regular rhythm HEART SOUNDS: S1 normal heart sound present and S2 normal heart sound present GI: COMMON NORMALS: Normal to inspection, nondistended, normoactive bowel sounds present, Soft to palpation, non-tender and No hepatosplenomegaly present PALPATION: Yes Soft to palpation and Yes No hepatosplenomegaly present Extremity: COMMON NORMALS: no pedal edema Neuro: SENSORIUM/ORIENTATION: Yes oriented to person, No oriented to place and No oriented to time Psych: COMMON NORMALS: mental status grossly normal Data : 11/23/21 06:59 11/22/21 21:35 Micro: Microbiology 11/23/21 02:55 Blood Culture - Preliminary Blood SPECIMEN COLLECTED 11/23/21 00:28 Blood Culture - Preliminary Blood SPECIMEN COLLECTED A&P Assessment and plan (1) Acute GI bleeding: Status: Acute Plan Hypoglycemia. Patient has known diabetic and takes anti-hyperglycemic agents at the long term. -Does take sulfonylurea -Persistently hyperglycemic, likely hypoglycemia associate with sulfonylurea -Increase D10 100 cc an hour -Check blood sugars hourly -Give 1 dose of glucagon, D50 -Can advance to clear liquids -Monitor mentation closely, might require further octreotide doses and glucagon monitor blood sugars closely -Monitor for fluid overload History of hypercarbic respiratory failure -Spoke to long term, he is intermittently compliant with his BiPAP therapy -Continue BiPAP therapy -Monitor mentation closely -If not improving will consider ABG Iron deficiency anemia, has a history of anemia, Hemoccult positive in the past, ferritin and iron levels are on the lower end -Will require EGD and colonoscopy at some point once more stable -Start IV Venofer here Melena. Patient's hemoglobin appears to be at his baseline. Will check hemoglobin level every 6 hours. Nothing by mouth. Dr. Catracho johnson has been notified of this patient. Patient's INR slightly elevated PTT is within normal limits. He takes aspirin at home which will be held. Protonix 40 IV twice daily, Carafate History of suicidal ideation Anxiety Depression BPH Constipation Gout Elevated troponin, chronic. Will monitor patient on telemetry and checks her cardiac enzymes. Will monitor serial EKGs. Coagulopathy. Will monitor PT/INR periodically History of CVA Obstructive sleep apnea. CPAP/BiPAP: Okay to use home device and/or pressure when sleeping Anemia, chronic. Will monitor hemoglobin every 6 hours. Fecal occult blood is positive. Check serum ferritin, and iron panel COPD, O2 dependent 3 L Documented history of CHF with preserved ejection fraction and grade 2 diastolic dysfunction Diabetes. Will check fasting glucose every before meals and at bedtime and provide insulin sliding scale GERD. Protonix 40 Mill grams IV twice a day plus Carafate 1 g by mouth every before meals and at bedtime Hyperlipidemia Hypertension Obesity. The patient will need to be counseled regarding lifestyle modification Hypothyroid and Cirrhosis with portal hypertension Nephrolithiasis, asymptomatic Moderate pulmonary hypertension Obesity hypoventilation syndrome DVT Proflex is. Bilateral SCD Attestations Medical Necessity Statement*: Patient requires hospitalization due to persistent hypoglycemia, likely sulfonylurea associated hypoglycemia Coding Level of Care Code Acute Mechanotherapist for Zac Pickett Diagnoses Acute GI bleeding K92.2
--- NOTE | 2021-11-23 12:33 | PC.NURSE ---
TR band off, dressing applied, gave patient post procedure instructions.
[2021-11-23 13:16] LABS: Hemoglobin 9.8 g/dL (11.7-16.6)
[2021-11-23] MEDS: iron sucrose 200 MG in sodium chloride 0.9% (100 ml) 100 ML 220 MG IV (13:16)
[2021-11-23] MEDS: hydrocortisone 100 mg/2 mL SDV IVP (13:16)
[2021-11-23] MEDS: octreotide 500 MCG in sodium chloride 0.9% (100 ml) 100 ML 10.1 MCG IV (14:10)
[2021-11-23 14:34] LABS: Amphetamines Screen Urine Negative (Negative); Barbiturates Screen Urine Negative (Negative); Benzodiazepines Screen Urine Negative (Negative); Cocaine Screen Urine Negative (Negative); Opiate Screen Urine Negative (Negative); PCP Screen Urine Negative (Negative); THC Screen Urine Negative (Negative)
[2021-11-23] MEDS: acetaminophen 325 mg Tablet 650 MG PO (14:34)
[2021-11-23 14:49] LABS: Blood Urea Nitrogen 13 mg/dL (6-20); Calcium 8.7 mg/dL (8.5-10.5); Carbon Dioxide 30 mmol/L (22-29); Chloride 99 mmol/L (98-107); Chol HDL Ratio 2.34 mg/dL (1.0-5.00); Cholesterol 82 mg/dL (0-200); Glomerular Filtration Rate 79.4 mL/min (90-130); Glucose 123 mg/dL (65-115); HDL Cholesterol 35 mg/dL (60-100); LDL Cholesterol Calculated 37 mg/dL (50-129); LDL HDL Ratio 1.06 RATIO (0.00-3.22); Lipase 16 U/L (13-60); Magnesium 1.8 mg/dL (1.7-2.3); Osmolality Calculated 287 mOsm/kg (285-295); Phosphorus 3.9 mg/dL (2.5-4.5); Sodium 138 mmol/L (136-145); Triglycerides 49 mg/dL (0-150)
[2021-11-23] MEDS: ondansetron 2 mg/ML SDV 2 mL 4 MG IVP (15:50)
[2021-11-23 16:07] LABS: Glucose Point of Care 117 mg/dL (70-110)
[2021-11-23 17:25] LABS: Anion Gap 11.3 (5-19); Blood Urea Nitrogen 14 mg/dL (6-20); Calcium 8.9 mg/dL (8.5-10.5); Carbon Dioxide 33 mmol/L (22-29); Chloride 99 mmol/L (98-107); Glomerular Filtration Rate 71.1 mL/min (90-130); Glucose 149 mg/dL (65-115); Magnesium 1.8 mg/dL (1.7-2.3); Osmolality Calculated 289 mOsm/kg (285-295); Potassium 5.3 mmol/L (3.5-5.1); Sodium 138 mmol/L (136-145)
[2021-11-23] MEDS: TRAMadol 50 mg Tablet PO (18:29)
[2021-11-23] MEDS: metoclopramide 5 mg/mL SDV 2 mL IVP (18:29)
[2021-11-23] MEDS: magnesium sulfate premix 2 GM/50 ML PIGGYBACK IV (18:30)
[2021-11-23 18:35] LABS: Glucose Point of Care 148 mg/dL (70-110)
[2021-11-23 23:57] LABS: Glucose Point of Care 161 mg/dL (70-110)
[2021-11-23 23:57] LABS: Glucose Point of Care 172 mg/dL (70-110)
[2021-11-23 23:57] LABS: Glucose Point of Care 190 mg/dL (70-110)
[2021-11-23 23:57] LABS: Glucose Point of Care 162 mg/dL (70-110)
[2021-11-23 23:57] LABS: Glucose Point of Care 163 mg/dL (70-110)
[2021-11-24] VITALS (35 sets, daily range): BP systolic 94–162; BP diastolic 38–122; PULSE 58–79; RESP 12–21; TEMP 36.6–36.8; O2SAT 85–100
[2021-11-24 00:22] LABS: Glucose Point of Care 168 mg/dL (70-110)
[2021-11-24 01:10] LABS: Glucose Point of Care 182 mg/dL (70-110)
[2021-11-24 02:19] LABS: Glucose Point of Care 168 mg/dL (70-110)
[2021-11-24] MEDS: acetaminophen 325 mg Tablet 650 MG PO ×2 (02:46→13:44)
[2021-11-24 04:11] LABS: Glucose Point of Care 157 mg/dL (70-110)
[2021-11-24 04:11] LABS: Glucose Point of Care 168 mg/dL (70-110)
[2021-11-24] MEDS: pantoprazole 40 mg SDV IVP ×2 (05:54→18:26)
[2021-11-24 06:05] LABS: Glucose Point of Care 158 mg/dL (70-110)
[2021-11-24 06:05] LABS: Glucose Point of Care 163 mg/dL (70-110)
[2021-11-24 07:49] LABS: Hematocrit 39.2 % (42.0-52.0); Hemoglobin 10.3 g/dL (11.7-16.6); Lymphocytes # 0.4 10^3/uL (0.8-4.8); Lymphocytes % 14.5 %; Mean Corpuscular HGB Conc 26.3 g/dL (30.0-36.0); Mean Corpuscular Hemoglobin 23.4 pg (28.0-34.0); Mean Corpuscular Volume 88.9 fl (80-94); Mean Platelet Volume 9.3 fL (7.4-10.4); Monocytes # 0.3 10^3/uL (0.2-0.9); Monocytes % 9.5 %; Neutrophils # 2.08 10^3/uL (1.8-7.7); Neutrophils % 75.6 %; Nucleated Red Blood Cells % 0 %; Platelet Count 113 10^3/cmm (130-400); Red Blood Count 4.41 10^6/uL (4.1-5.3); Red Cell Distribution Width 20.3 % (12.1-15.1); White Blood Count 2.8 10^3/uL (4.0-10.0)
[2021-11-24 07:56] LABS: INR 1.23 (0.8-1.2)
[2021-11-24 08:04] LABS: Alanine Aminotransferase 12 U/L (0-41); Albumin Level 3.4 g/dL (3.5-5.2); Alkaline Phosphatase 287 IU/L (40-130); Aspartate Amino Transferase 13 U/L (0-40); Blood Urea Nitrogen 17 mg/dL (6-20); Calcium 8.1 mg/dL (8.5-10.5); Carbon Dioxide 31 mmol/L (22-29); Chloride 98 mmol/L (98-107); Globulin 2.9 g/dL (1.3-4.6); Glomerular Filtration Rate 71.1 mL/min (90-130); Glucose 163 mg/dL (65-115); Magnesium 1.9 mg/dL (1.7-2.3); Osmolality Calculated 285 mOsm/kg (285-295); Phosphorus 5.3 mg/dL (2.5-4.5); Sodium 135 mmol/L (136-145); Total Bilirubin 1.2 mg/dL (0.15-1.2); Total Protein 6.3 g/dL (6.6-8.7)
[2021-11-24 08:17] LABS: Anion Gap 11.8 (5-19); Potassium 5.8 mmol/L (3.5-5.1); Slide Review Slide Review Perform
[2021-11-24] MEDS: insulin lispro 100 unit/1 mL SUBCUT ×3 (08:19→20:27)
[2021-11-24] MEDS: sucralfate 1 gm Tablet PO ×4 (08:19→20:24)
[2021-11-24] MEDS: bumetanide 1 mg Tablet PO ×2 (08:19→18:24)
[2021-11-24] MEDS: sodium polystyrene sulfonate 15 gm/60 mL Btl PO ×2 (10:15→20:24)
[2021-11-24 10:32] LABS: Anion Gap 13.6 (5-19); Blood Urea Nitrogen 17 mg/dL (6-20); Calcium 8.8 mg/dL (8.5-10.5); Carbon Dioxide 32 mmol/L (22-29); Chloride 99 mmol/L (98-107); Glomerular Filtration Rate 58.7 mL/min (90-130); Glucose 172 mg/dL (65-115); Osmolality Calculated 294 mOsm/kg (285-295); Potassium 5.6 mmol/L (3.5-5.1); Sodium 139 mmol/L (136-145)
--- NOTE | 2021-11-24 11:34 | PM.PN ---
Subjective Subjective: Patient was seen this morning, he sitting up in a chair, he tells me is feeling a lot better, alert oriented x3, complaining of headache, no nausea, no vomiting, no chest pain, no shortness of breath, he tells me that he was telling the [facility] that his blood sugars were running low and why they were not giving him the glipizide, he is a bit frustrated Vitals/I&O/Wt Last Vital Signs Temp 97.9 F 11/24/21 03:45 Pulse 61 11/24/21 08:00 Resp 17 11/24/21 08:00 BP 128/61 11/24/21 08:00 Pulse Ox 98 11/24/21 08:00 11/23/21 11/24/21 11/24/21 22:59 06:59 14:59 Intake Total 668.389 / 1076.722 360 / 360 Output Total 750 / 750 325 / 1075 Balance -81.611 / 326.722 -325 / 1.722 360 / 360 Weight last 48 hrs Weight 186.88 kg Weight 183.705 kg Weight 171.458 kg Physical Exam Const: COMMON NORMALS: no acute distress and patient oriented x3 Resp: COMMON NORMALS: normal respiratory effort, No retractions, No use of accessory muscles and clear to auscultation bilaterally AUSCULTATION: clear to auscultation bilaterally Cardio: COMMON NORMALS: regular rate, regular rhythm, S1 normal heart sound present and S2 normal heart sound present RATE: regular rate RHYTHM: regular rhythm HEART SOUNDS: S1 normal heart sound present and S2 normal heart sound present GI: COMMON NORMALS: Normal to inspection, nondistended, normoactive bowel sounds present, Soft to palpation and non-tender PALPATION: Yes Soft to palpation Extremity: NARRATIVE EXTREMITY EXAM: 1+ pitting edema Neuro: COMMON NORMALS: patient oriented x3 Psych: COMMON NORMALS: mental status grossly normal Data : 11/24/21 07:20 11/24/21 09:55 Micro: Microbiology 11/23/21 02:55 Blood Culture - Preliminary Blood NEGATIVE TO DATE 11/23/21 00:28 Blood Culture - Preliminary Blood NEGATIVE TO DATE A&P Assessment and plan (1) Acute GI bleeding: Status: Acute Plan Hypoglycemia. Patient has known diabetic and takes anti-hyperglycemic agents at the [facility]. -Does take sulfonylurea -Persistently hyperglycemic, likely hypoglycemia associate with sulfonylurea -Now resolved -Stop D10, octreotide -Blood sugars q. CHS -Can advance to diabetic diet -Monitor mentation closely History of hypercarbic respiratory failure -Spoke to [facility], he is intermittently compliant with his BiPAP therapy -Continue BiPAP therapy -Monitor mentation closely -Fluid overloaded, continue Bumex Iron deficiency anemia, has a history of anemia, Hemoccult positive in the past, ferritin and iron levels are on the lower end -Will require EGD and colonoscopy at some point once more stable, not urgently required -Start IV Venofer here Melena. Patient's hemoglobin appears to be at his baseline. Will check hemoglobin level every 6 hours. Nothing by mouth. Dr. Hayden consult y has been notified of this patient. Patient's INR slightly elevated PTT is within normal limits. He takes aspirin at home which will be held. Protonix 40 IV twice daily, Carafate History of suicidal ideation Anxiety Depression BPH Constipation Gout Elevated troponin, chronic. Will monitor patient on telemetry and checks her cardiac enzymes. Will monitor serial EKGs. Coagulopathy. Will monitor PT/INR periodically History of CVA Obstructive sleep apnea. CPAP/BiPAP: Okay to use home device and/or pressure when sleeping Anemia, chronic. Will monitor hemoglobin every 6 hours. Fecal occult blood is positive. Check serum ferritin, and iron panel COPD, O2 dependent 3 L Documented history of CHF with preserved ejection fraction and grade 2 diastolic dysfunction Diabetes. Will check fasting glucose every before meals and at bedtime and provide insulin sliding scale GERD. Protonix 40 Mill grams IV twice a day plus Carafate 1 g by mouth every before meals and at bedtime Hyperlipidemia Hypertension Obesity. The patient will need to be counseled regarding lifestyle modification Hypothyroid and Cirrhosis with portal hypertension Nephrolithiasis, asymptomatic Moderate pulmonary hypertension Obesity hypoventilation syndrome DVT Proflex is. Bilateral SCD Hyperkalemia, Kayexalate Attestations Medical Necessity Statement*: Patient requires hospitalization for hyperglycemia, now with fluid overload, requiring diuresis Coding Level of Care Code Acute [employer] Consultant for Tiffanieg Piyush Diagnoses Acute GI bleeding K92.2
[2021-11-24 11:51] LABS: Glucose Point of Care 157 mg/dL (70-110)
[2021-11-24] MEDS: iron sucrose 200 MG in sodium chloride 0.9% (100 ml) 100 ML 220 MG IV (13:44)
--- NOTE | 2021-11-24 15:59 | PC.NURSE ---
Report called to ALFIE Guadarrama. Patient and belongings taken to 251[facility].
[2021-11-24 17:11] LABS: Glucose Point of Care 157 mg/dL (70-110)
[2021-11-24] MEDS: ferrous sulfate EC 325 mg Tablet PO (18:24)
[2021-11-24] MEDS: tamsulosin 0.4 mg Capsule PO (18:24)
[2021-11-24] MEDS: montelukast sodium 10 mg Tablet PO (20:24)
[2021-11-24] MEDS: atorvastatin 40 mg Tablet 80 MG PO (20:24)
[2021-11-24 20:28] LABS: Glucose Point of Care 149 mg/dL (70-110)
[2021-11-25] VITALS (12 sets, daily range): BP systolic 123–128; BP diastolic 67–71; PULSE 48–67; RESP 13–22; TEMP 36.3–36.7; O2SAT 92–98
[2021-11-25] MEDS: sodium polystyrene sulfonate 15 gm/60 mL Btl PO (03:21)
--- NOTE | 2021-11-25 03:24 | PC.NURSE ---
Patient refusing Bipap at this time
[2021-11-25] MEDS: acetaminophen 325 mg Tablet 650 MG PO (04:08)
[2021-11-25] MEDS: pantoprazole 40 mg SDV IVP (04:09)
[2021-11-25 04:21] LABS: Eosinophils % 0.8 %; Hematocrit 33.6 % (42.0-52.0); Hemoglobin 8.6 g/dL (11.7-16.6); Lymphocytes # 0.6 10^3/uL (0.8-4.8); Lymphocytes % 22.6 %; Mean Corpuscular HGB Conc 25.6 g/dL (30.0-36.0); Mean Corpuscular Volume 89.8 fl (80-94); Mean Platelet Volume 9.9 fL (7.4-10.4); Monocytes # 0.3 10^3/uL (0.2-0.9); Monocytes % 11.1 %; Neutrophils # 1.65 10^3/uL (1.8-7.7); Neutrophils % 65.5 %; Nucleated Red Blood Cells % 0 %; Platelet Count 165 10^3/cmm (130-400); Red Blood Count 3.74 10^6/uL (4.1-5.3); White Blood Count 2.5 10^3/uL (4.0-10.0)
[2021-11-25 04:46] LABS: Alanine Aminotransferase 11 U/L (0-41); Albumin Level 3.7 g/dL (3.5-5.2); Alkaline Phosphatase 270 IU/L (40-130); Aspartate Amino Transferase 9 U/L (0-40); Blood Urea Nitrogen 21 mg/dL (6-20); Carbon Dioxide 33 mmol/L (22-29); Chloride 99 mmol/L (98-107); Globulin 2.7 g/dL (1.3-4.6); Glomerular Filtration Rate 49.7 mL/min (90-130); Glucose 126 mg/dL (65-115); Osmolality Calculated 295 mOsm/kg (285-295); Phosphorus 3.6 mg/dL (2.5-4.5); Sodium 140 mmol/L (136-145); Total Bilirubin 1.2 mg/dL (0.15-1.2); Total Protein 6.4 g/dL (6.6-8.7)
[2021-11-25] MEDS: folic acid 1 mg Tablet PO (05:34)
[2021-11-25] MEDS: sertraline 50 mg Tablet PO (05:34)
[2021-11-25] MEDS: aspirin 81 mg EC Tablet PO (05:34)
[2021-11-25] MEDS: ziprasidone hcl 40 mg Capsule PO (05:34)
[2021-11-25] MEDS: allopurinol 100 mg Tablet PO (05:34)
[2021-11-25] MEDS: lisinopril 5 mg Tablet PO (05:34)
[2021-11-25] MEDS: atenolol 50 mg Tablet 100 MG PO (05:34)
--- NOTE | 2021-11-25 05:46 | NUR.SHIFT ---
Rested in bed throughout shift, did have discomfort this morning so prn medication given. Bipap on for some of the night, patient did refuse at times, but then requested it other times. Sats remained >90%. Able to sit self at side of bed at the beginning of this shift. both IV in right antecubital and left antecubital intact and flushed with blood return obtained. Accucheck done and sliding scale insulin administered per protocol. Patient was incontinent this shift with bernabe care and linen change provided by [employer]INE[employer]'s.
[2021-11-25 06:17] LABS: Glucose Point of Care 134 mg/dL (70-110)
[2021-11-25] MEDS: sucralfate 1 gm Tablet PO ×2 (06:20→13:04)
[2021-11-25] MEDS: ipratropium-albuterol 3 mL Neb INHALATION (08:19)
[2021-11-25] MEDS: ferrous sulfate EC 325 mg Tablet PO (09:28)
[2021-11-25] MEDS: bumetanide 0.25 mg/mL SDV 4 mL 1 MG IVP (09:29)
[2021-11-25] MEDS: metOLazone 5 MG Tablet PO (09:29)
[2021-11-25 11:08] LABS: Glucose Point of Care 119 mg/dL (70-110)
[2021-11-25 12:31] LABS: SARS Covid-2 Antigen Positive (Negative)
--- NOTE | 2021-11-25 12:45 | P.DS_ITS ---
Discharge Providers Date of Admission: 11/23/21 05:00 Date of Discharge: November 25, 2021 Attending Provider at Admission: Aldo Grover DO Attending Provider at Discharge: Juan Urena MD Primary Care Provider: Stewart Rosario MD Diagnoses at Discharge Discharge Diagnosis (1) Acute GI bleeding: Status: Acute Reason for Visit Reason for Visit: Low BP Hospital Course Hospital Course This is a 51-year-old male with a past medical history of obesity, COPD, OPAL on BiPAP at local senior living, insulin-dependent type 2 diabetes mellitus, history of anemia, history of iron deficiency anemia, history of slow GI bleed, anxiety, depression, BPH who presents to [facility] due to hypoglycemia and concerns for GI bleed For his hypoglycemia, blood sugars in the 20s, likely secondary to sulfonylurea, admitted to ICU, blood sugars remained low with the D10 infusion, required octreotide, his mentation improved, blood sugars improved, moved out of the ICU, moved to general medical floors, appetite improved, blood sugars remain between 1 50-200. On discharge I have discontinued sulfonylurea, likely patient's and tolerated given his decrease in his kidney function. Also have discontinued Janumet. I have discharged him on Lantus 5 units daily. With a NovoLog sliding scale. Monitor blood sugars closely. Patient's creatinine on discharge 1.5, GFR is 49, will have senior living recheck his kidney function on Sunday Did have fluid overload, requiring inpatient diuresis, creatinine on discharge 1.5, hold Bumex until tomorrow, resume tomorrow recheck CMP on Sunday There is also concerns for GI bleed during his initial intake, no bloody or black stools here, his hemoglobin remained stable between 8 and 10, chronically has between 8 and 10, does have a history of iron deficiency anemia. He received 3 days of IV Venofer here. Dr. Hayden was consulted, no urgent need for EGD and colonoscopy. We will have patient follow-up with Dr. Hayden as outpatient for EGD and colonoscopy. Discharged on Protonix, Carafate, avoid NSAIDs, iron replacement therapy. Chronic hypercarbic respiratory failure, continue BiPAP and senior living Physical Exam Const: COMMON NORMALS: no acute distress and patient oriented x3 Resp: COMMON NORMALS: normal respiratory effort, No retractions, No use of a ccessory muscles and clear to auscultation bilaterally AUSCULTATION: clear to auscultation bilaterally Cardio: COMMON NORMALS: regular rate, regular rhythm, S1 normal heart sound present and S2 normal heart sound present RATE: regular rate RHYTHM: regular rhythm HEART SOUNDS: S1 normal heart sound present and S2 normal heart sound present GI: COMMON NORMALS: Normal to inspection, nondistended, normoactive bowel sounds present, Soft to palpation, non-tender and No hepatosplenomegaly present PALPATION: Yes Soft to palpation and Yes No hepatosplenomegaly present Extremity: COMMON NORMALS: no pedal edema Neuro: COMMON NORMALS: patient oriented x3 Psych: COMMON NORMALS: mental status grossly normal Discharge Data Studies Completed and Pending Completed Studies During Hospitalization Category Date Time Status CT abdomen pelvis w con* [id number] Urgent Cat Scan 11/23/21 00:08 Completed XR chest 1V portable [id number] Urgent Exams 11/22/21 23:53 Completed Pending at discharge Category Date Time Status Blood Culture Stat Lab 11/23/21 02:55 Results Complete Blood Count w/Auto AM LABS Lab 11/26/21 04:00 Ordered Comprehensive Metabolic Panel AM LABS Lab 11/26/21 04:00 Ordered Magnesium AM LABS Lab 11/26/21 04:00 Ordered Phosphorus AM LABS Lab 11/26/21 04:00 Ordered Radiology Impressions Chest X-Ray 11/22/21 23:53 IMPRESSION: Congestive heart failure. Abdomen/Pelvis CT 11/23/21 00:08 IMPRESSION: 1. No site of active hemorrhage is identified. 2. There is diffuse body wall edema. 3. Grade 1 anterolisthesis present at L5-S1 secondary to L5 pars defects. 4. There is a small amount of ascites. 5. Cirrhosis with portal venous hypertension. 6. Multiple nonobstructing right renal stones, largest measures 8 mm. COMMENTS: Consistent with the [employer]'s Incidental Findings Committee white paper (J Am Eryn Radiol 2018): Any incidental renal lesion less than 1 cm or classified as too small to characterize, or any incidental cystic renal lesion characterized as simple-appearing, is likely benign. No follow-up imaging is recommended for these lesions per consensus recommendations based on imaging criteria. Laboratory Results WBC 2.5 10^3/uL (4.0-10.0) L 11/25/21 03:57 RBC 3.74 10^6/uL (4.1-5.3) L 11/25/21 03:57 Hgb 8.6 g/dL (11.7-16.6) L 11/25/21 03:57 Hct 33.6 % (42.0-52.0) L 11/25/21 03:57 MCV 89.8 fl (80-94) 11/25/21 03:57 MCH 23.0 pg (28.0-34.0) L 11/25/21 03:57 MCHC 25.6 g/dL (30.0-36.0) L 11/25/21 03:57 RDW 20.0 % (12.1-15.1) H 11/25/21 03:57 Plt Count 165 10^3/cmm (130-400) D 11/25/21 03:57 MPV 9.9 fL (7.4-10.4) 11/25/21 03:57 Neut % (Auto) 65.5 % 11/25/21 03:57 Lymph % (Auto) 22.6 % 11/25/21 03:57 [place] % (Auto) 11.1 % 11/25/21 03:57 Eos % (Auto) 0.8 % 11/25/21 03:57 Baso % (Auto) 0.0 % 11/25/21 03:57 Neut # (Auto) 1.65 10^3/uL (1.8-7.7) L 11/25/21 03:57 Lymph # (Auto) 0.6 10^3/uL (0.8-4.8) L 11/25/21 03:57 [place] # (Auto) 0.3 10^3/uL (0.2-0.9) 11/25/21 03:57 Eos # (Auto) 0.0 10^3/uL (0.0-0.8) 11/25/21 03:57 Baso # (Auto) 0.0 10^3/uL (0.0-0.1) 11/25/21 03:57 Nucleated RBC % (auto) 0 % 11/25/21 03:57 Nucleated RBCs # 0.0 /100WBC 11/25/21 03:57 PT 15.80 SECONDS (12.1-14.9) H 11/24/21 07:20 INR 1.23 (0.8-1.2) H 11/24/21 07:20 APTT 34.6 SECONDS (23.9-36.7) 11/23/21 00:28 Sodium 140 mmol/L (136-145) 11/25/21 03:57 Potassium 5.0 mmol/L (3.5-5.1) 11/25/21 03:57 Chloride 99 mmol/L (98-107) 11/25/21 03:57 Carbon Dioxide 33 mmol/L (22-29) H 11/25/21 03:57 Anion Gap 13.0 (5-19) 11/25/21 03:57 BUN 21 mg/dL (6-20) H 11/25/21 03:57 Creatinine 1.5 mg/dL (0.7-1.2) H 11/25/21 03:57 GFR Calculation 49.7 mL/min (90-130) L 11/25/21 03:57 Glucose 126 mg/dL (65-115) H 11/25/21 03:57 POC Glucose 119 mg/dL (70-110) H 11/25/21 11:02 Calculated Osmolality 295 mOsm/kg (285-295) 11/25/21 03:57 Calcium 8.0 mg/dL (8.5-10.5) L 11/25/21 03:57 Phosphorus 3.6 mg/dL (2.5-4.5) 11/25/21 03:57 Magnesium 2.0 mg/dL (1.7-2.3) 11/25/21 03:57 Iron 17 ug/dL (59-158) L 11/23/21 04:05 TIBC 247 mcg/dl 11/23/21 04:05 % Saturation 6.8 % (20-50) L 11/23/21 04:05 Unsat Iron Binding 230 ug/dL (112-347) 11/23/21 04:05 Ferritin 31 ng/mL (30-400) 11/23/21 04:05 Total Bilirubin 1.2 mg/dL (0.15-1.2) 11/25/21 03:57 AST 9 U/L (0-40) 11/25/21 03:57 ALT 11 U/L (0-41) 11/25/21 03:57 Alkaline Phosphatase 270 IU/L (40-130) H 11/25/21 03:57 Troponin T Baseline 28 ng/L (0-15) H 11/22/21 21:35 Troponin T 120 Minute 27.19 ng/L (0-15) H 11/23/21 00:28 Delta Troponin T -0.81 ABS# (0-10) L 11/23/21 00:28 Troponin T Hi Sens 6Hr 32.78 ng/L (0-15) H 11/23/21 04:05 Troponin T Hi Sens 6Hr Delta 4.78 ng/L (0-12) 11/23/21 04:05 C-Reactive Protein 8.5 mg/L (0.0-4.9) H 11/23/21 04:05 NT-Pro-B Natriuret Pep 3711 pg/mL (0-125) H 11/23/21 04:05 Total Protein 6.4 g/dL (6.6-8.7) L 11/25/21 03:57 Albumin 3.7 g/dL (3.5-5.2) 11/25/21 03:57 Globulin 2.7 g/dL (1.3-4.6) 11/25/21 03:57 Triglycerides 49 mg/dL (0-150) 11/23/21 13:40 Cholesterol 82 mg/dL (0-200) 11/23/21 13:40 LDL Cholesterol, Calc 37 mg/dL (50-129) L 11/23/21 13:40 HDL Cholesterol 35 mg/dL (60-100) L 11/23/21 13:40 LDL/HDL Ratio 1.06 RATIO (0.00-3.22) 11/23/21 13:40 Cholesterol/HDL Ratio 2.34 mg/dL (1.0-5.00) 11/23/21 13:40 Lipase 16 U/L (13-60) 11/23/21 13:40 Procalcitonin 0.08 ng/mL (0-0.5) 11/23/21 04:05 Random Cortisol 9.90 ug/dL (2.47-19.5) 11/23/21 04:05 Urine Color Yellow (Yellow) 11/23/21 01:15 Urine Appearance Clear (CLEAR) 11/23/21 01:15 Urine pH 7 (5-7) 11/23/21 01:15 Ur Specific [place] 1.005 (1.005-1.030) 11/23/21 01:15 Urine Protein Neg (Negative) 11/23/21 01:15 Urine Glucose (UA) Norm (Normal) 11/23/21 01:15 Urine Ketones Negative (Negative) 11/23/21 01:15 Urine Blood Neg (Negative) 11/23/21 01:15 Urine Nitrate Negative (Negative) 11/23/21 01:15 Urine Bilirubin Neg (Negative) 11/23/21 01:15 Urine Urobilinogen 1 mg/dL (Negative) H 11/23/21 01:15 Ur Leukocyte Esterase Negative (Negative) 11/23/21 01:15 Urine Opiates Screen Negative ng/mL (Negative) 11/23/21 14:05 Ur Barbiturates Screen Negative ng/mL (Negative) 11/23/21 14:05 Ur Phencyclidine Scrn Negative ng/mL (Negative) 11/23/21 14:05 Ur Amphetamines Screen Negative ng/mL (Negative) 11/23/21 14:05 U Benzodiazepines Scrn Negative ng/mL (Negative) 11/23/21 14:05 Urine Cocaine Screen Negative ng/mL (Negative) 11/23/21 14:05 U Marijuana (THC) Screen Negative ng/mL (Negative) 11/23/21 14:05 Ethyl Alcohol < 10 mg/dL (0-10) 11/23/21 04:05 SARS-CoV-2 Ag (Rapid) Positive (Negative) H 11/25/21 12:00 Vitals Last Vital Signs Temp 98.1 F 11/25/21 12:00 Pulse 61 11/25/21 12:00 Resp 18 11/25/21 12:00 BP 123/71 11/25/21 12:00 Pulse Ox 97 11/25/21 12:00 Discharge Plan Discharge Patient Disposition: Home Condition: Stable Prescriptions: New sucralfate 1 gram Tablet 1 g PO AC&BEDTIME 30 Days Qty: 60 0RF Protonix 40 mg tablet,delayed release (DR/EC) 40 mg PO BID 30 Days Qty: 60 0RF Novolog Flexpen U-100 Insulin 100 unit/mL (3 mL) insulin pen See Rx Instructions .ROUTE .COMPLEX Qty: 15 0RF Rx Instructions: Inject subcu, 3 times daily, before meals, based on sliding scale Continued (DME) oxygen-air delivery systems Device See Rx Instructions .ROUTE .MEDSUPPLY Qty: 1 0RF Rx Instructions: As directed albuterol sulfate 90 mcg/actuation HFA aerosol inhaler 2 puff inhalation QID PRN (Reason: Shortness Of Breath) 0RF atorvastatin [Lipitor] 80 mg Tablet 80 mg PO BEDTIME 0RF montelukast [Singulair] 10 mg Tablet 10 mg PO BEDTIME 0RF aspirin 81 mg Tablet,Delayed Release (Dr/Ec) 81 mg PO QAM 0RF Dulera 200-5 mcg/actuation HFA aerosol inhaler 2 puff INHALATION BID 0RF allopurinol 100 mg tablet 100 mg PO QAM 0RF ferrous sulfate 325 mg (65 mg iron) tablet 325 mg PO BID 0RF tamsulosin 0.4 mg capsule 0.4 mg PO QPM 0RF ziprasidone HCl 40 mg capsule 40 mg PO QAM 0RF sertraline 50 mg tablet 50 mg PO QAM 0RF atenolol 100 mg tablet 100 mg PO QAM 0RF folic acid 1 mg tablet 1 mg PO QAM 0RF ascorbic acid (vitamin C) 500 mg tablet 500 mg PO BID 0RF Milk of Magnesia 400 mg/5 mL Suspension 30 ml PO .EVERY 3RD DAY PRN (Reason: Constipation) 0RF Dulcolax (bisacodyl) 10 mg Suppository See Rx Instructions .ROUTE .COMPLEX 0RF Rx Instructions: 10 mg rectally after mom if no bm prn only if tabs refused magnesium citrate Solution See Rx Instructions .ROUTE .COMPLEX 0RF Rx Instructions: 10 oz po after dulcolax if no bm prn Dulcolax (bisacodyl) 5 mg Tablet,Delayed Release (Dr/Ec) See Rx Instructions .ROUTE .COMPLEX 0RF Rx Instructions: 20 mg orally prn after mom no bm for constipation alum-mag hydroxide-simeth 200-200-20 mg/5 mL Suspension 30 ml PO .EVERY 2 HOURS PRN (Reason: Indigestion) 0RF Triad Wound Dressing Paste See Rx Instructions .ROUTE .COMPLEX 0RF Rx Instructions: apply paste to coccyx bid meclizine 25 mg Tablet 25 mg PO Q8H PRN (Reason: Nausea) 0RF nystatin 100,000 unit/gram Cream See Rx Instructions .ROUTE .COMPLEX 0RF Rx Instructions: apply under abdominal fold bid Tylenol 325 mg capsule 650 mg PO Q4H PRN (Reason: pain/temp) 0RF Changed Levemir FlexTouch U-100 Insuln 100 unit/mL (3 mL) insulin pen 5 unit SUBCUT QAM Qty: 15 0RF Held bumetanide 1 mg tablet 1 mg PO BID 0RF Hold Instructions: Resume on 11/26/21. Klor-Con M20 20 mEq tablet,ER particles/crystals 40 meq PO QAM 0RF Hold Instructions: Resume on 11/26/21. Discontinued omeprazole 40 mg Capsule,Delayed Release(Dr/Ec) 40 mg PO QAM 0RF lisinopril 5 mg tablet 5 mg PO QAM 0RF Janumet 50-1,000 mg tablet 1 tab PO BID 0RF glipizide 10 mg tablet extended release 24hr 10 mg PO BID 0RF Discharge Orders: Discharge Order (Routine); Ordered 11/25/21 Ordered By: Juan Urena Referrals: Travis Hayden MD [Physician] - 1 month (egd and colonoscpy ) Stewart Rosario MD [Primary Care Provider] - 11/29/21 11:00 am Discharge Diet: Diabetic Discharge Activity: Resume usual activity Patient Instructions: Hypoglycemia, Gastrointestinal Bleeding (DC), Opioid Safety Activity Restrictions/Additional Instructions: -Glipizide and Janumet have been discontinued on discharge due to hypoglycemia, and decreased GFR -For type 2 diabetes mellitus, inject insulin, based on sliding scale provided below -Inject insulin, 3 times daily, before meals, based on sliding scale provided Insulin sliding fingerstick? Insulin 141-180?2 units/sq 181-220?3 units/sq 221-260?4 units/sq 261-300?5 units/sq 301-350 6 units/sq 351-400 10 units/sq > 400? 12 units/sq -Levemir 5 units every morning -Monitor blood sugars closely -Creatinine discharge was 1.5, hold Bumex until tomorrow, -Recheck complete metabolic panel including kidney function on Sunday Discharge Attestations Time Spent in Discharge Care*: less than 30 min Status at Discharge: Cognitive status at discharge: cognitively intact , Behavioral status at discharge: cooperative , Quality Metrics Clinical Quality Measures [ No reported AMI, CVA or VTE this stay] Coding Level of Care Code Acute Chg FW DC note Diagnoses Acute GI bleeding K92.2
--- NOTE | 2021-11-25 14:31 | PC.NURSE ---
Called report to Sangita Kelley RN at [facility]. FITZ Lynn at [phone]
--- NOTE | 2021-11-25 15:19 | PC.OT ---
OT tx attempted. Pt in the process of d/c.
== END 2021-11-25 16:54 | disposition home or self-care (01) | DRG 377 ==
LOC: ER 11-23 04:19 → ICU 11-23 05:04 → MEDSURG 11-24 16:55
PROVIDERS: Admitting Provider Internal Medicine; Emergency Provider Emergency Medicine; PCP Family Medicine; Visit Provider Family Medicine
DX: K92.2 Gastrointestinal hemorrhage, unspecified (principal); U07.1 COVID-19; E66.2 Morbid (severe) obesity with alveolar hypoventilation; Z68.45 Body mass index [BMI] 70 or greater, adult; F33.9 Major depressive disorder, recurrent, unspecified; J96.12 Chronic respiratory failure with hypercapnia; I11.0 Hypertensive heart disease with heart failure; I50.9 Heart failure, unspecified; E78.5 Hyperlipidemia, unspecified; Z86.73 Personal history of transient ischemic attack (TIA), and cerebral infarction without residual deficits; E11.649 Type 2 diabetes mellitus with hypoglycemia without coma; Z87.01 Personal history of pneumonia (recurrent); D50.9 Iron deficiency anemia, unspecified; F41.9 Anxiety disorder, unspecified; N40.0 Benign prostatic hyperplasia without lower urinary tract symptoms; K59.00 Constipation, unspecified; M10.9 Gout, unspecified; J44.9 Chronic obstructive pulmonary disease, unspecified; Z79.51 Long term (current) use of inhaled steroids; Z99.89 Dependence on other enabling machines and devices; N20.0 Calculus of kidney; E03.9 Hypothyroidism, unspecified; I27.20 Pulmonary hypertension, unspecified; K74.60 Unspecified cirrhosis of liver; Z99.81 Dependence on supplemental oxygen
CPT/HCPCS: 36415; 36416; 71045; 74177; 80048; 80053; 80061; 80306; 80307; 81003; 82533; 82728; 82962; 83540; 83550; 83690; 83735; 83880; 84100; 84145; 84484; 85018; 85025; 85610; 85730; 86140; 87040; 87426; 93005; 94640; 94660; 94664; 96372; 96374; 96375; 97161; 97167; 97530; 99291; C9113; J1610; J1720; J1756; J1815; J1940; J2354; J2405; J2765; J3475; J3490; Q9967

== ENCOUNTER 2022-08-21 08:56 | Emergency (ER) | payer MEDICAID, SELFPAY ==
[2022-08-21 08:58] VITALS: BP 108/75; PULSE 85; RESP 18; TEMP 36.8; O2SAT 94; BMI 53.1
--- NOTE | 2022-08-21 09:13 | CT_ITS ---
WS: [id number] CT HEAD NONCONTRAST HISTORY: headache TECHNIQUE: Contiguous axial imaging performed through the brain in 2.5 mm imaging. Bone and soft tiss ue windows. Sagittal and coronal reformats reviewed. All CT scans at [facility] use at least one of these dose optimization techniques: automated exposure control; mA and/or kV adjustment per pa tient size (includes targeted exams where dose is matched to clinical indication); or iterative recon struction. DLP: 1087.78 mGy.cm COMPARISON: 10/05/2021 Remote infarcts are volume loss involving the posterior RIGHT frontal and the LEFT occipital lobes. A dditional smaller RIGHT occipital lobe infarct is identified today. May have been present on prior st udies but obscured by the significant motion artifact. There is mild volume loss suggesting this is n ot acute. Mild atrophy and small vessel ischemic disease. Ventricles: Normal size with no hydrocephalus. No inferior displacement of cerebellar tonsils. Paranasal sinuses: As visualized are clear. Mastoid air cells: Well pneumatized. Calvarium and scalp: Skull is intact with no soft tissue edema or swelling. CT/CT head wo con* [id number] IMPRESSION: 1. No acute hemorrhage or infarct. 2. 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 3. Mild atrophy and small vessel ischemic disease.
--- NOTE | 2022-08-21 09:15 | ED_ITS ---
HPI - General Adult General: Chief complaint: Nausea/Vomiting/Diarrhea Stated complaint: FACIAL DROOP Time Seen by Provider: 08/21/22 08:59 History of Present Illness: Patient comes in with left hand/forearm numbness as well as headache that he woke up with. States this has been happening for 3 to 4 weeks. States he will wake up with the numbness and headache and that it will go away after a couple of hours. States his symptoms are currently almost gone at this time. He still has some numbness in the left arm. On physical exam he has decreased pinprick sensation to the ulnar aspect of his forearm but not the lateral aspect. Strength is 5 out of 5 in all 4 extremities. His neuro exam is grossly intact otherwise. Associated symptoms: Reports headache(s) and nausea; Deny chest pain, dyspnea, rash, palpitations or vomiting Review of Systems Const: Denies: fever(s) or body aches Eyes: Denies: change in vision or blurry vision ENMT: Denies: throat pain or odynophagia Card: Denies: chest pain or palpitations Resp: Denies: dyspnea or productive cough GI: Reports: nausea; Denies: abdominal pain or vomiting : Denies: flank pain or dysuria Musc: Denies: neck pain or back pain Skin/Breast: Denies: rash or pruritus Neuro: Reports: headache(s) and numbness in extremities Psych: Denies: anxiety or change in appetite Endo: Denies: polyuria or excessive sweating PFS ED PFSH: Medical History Acute respiratory failure with hypoxia and hypercapnia Anemia -has chronic iron deficiency anemia, baseline Hg is around 9-10 Anxiety Chest pain Chest pain CHF (congestive heart failure) -Echo (07/2019): EF=68%, normal diastolic function, no RWMA -on oral lasix -no acute exacerbation currently CHF (congestive heart failure) Chronic anemia Chronic respiratory failure Decubitus ulcer limited to breakdown of skin (stage 2) Depression Diabetes -NIDDM type II -A1c (11/2019): 8.2 -Accuchecks, ISS, hypoglycemia precautions -consistent carb diet -anticipate hyperglycemia with steroid use Diabetes mellitus Gout History of CVA (cerebrovascular accident) Hyperlipemia, mixed Hypertension -VSS; continue to monitor -continue oral antihypertensives Hypertension Major depressive disorder, recurrent, moderate Morbid (severe) obesity due to excess calories Morbid obesity OPAL (obstructive sleep apnea) -in the process of getting CPAP set up Pneumonia Psychiatric care Transient cerebral ischemia Surgical History History of adenoidectomy History of hernia repair History of tonsillectomy History of umbilical hernia repair Family History Mother Hypertension CAD (coronary artery disease) Stroke Social History Smoking and tobacco status: never smoked Second hand smoke exposure: Yes Alcohol intake: never Adopted: No Caregiver/support person: No Lives independently: Yes Household members: family and friend(s) Housing: Manufactured/Mobile home Marital status: Single Number of children: 0 Number of grandchildren: 0 Highest education level completed: 8th Grade service: No Current occupational status: disabled Pets and animals: No History of recent travel: No Leisure activites: other Leisure activities details: play card games Sexually active: No Current gender identity: Male Yolanda/Sabianism: Other Special yolanda needs: No Agree to transfusion: Yes Financial difficulty paying for basics: Hard Physical Exam Const: COMMON NORMALS: no acute distress, patient oriented x3, healthy appearing and alert HENMT: COMMON NORMALS: normocephalic and atraumatic HEAD & SCALP: normocephalic and atraumatic Eye: COMMON NORMALS: Equal, round and reactive pupils present and EOMs intact bilaterally PUPIL: Yes Equal, round and reactive pupils present Neck/C-Spine: COMMON NORMALS: full ROM and supple Resp: COMMON NORMALS: normal respiratory effort, No retractions and No use of accessory muscles Cardio: COMMON NORMALS: regular rate and regular rhythm RATE: regular rate RHYTHM: regular rhythm GI: COMMON NORMALS: Normal to inspection, nondistended, normoactive bowel sounds present, Soft to palpation and non-tender PALPATION: Yes Soft to palpation Back/Pelvis: COMMON NORMALS: thoracic and lumbar spine normal to inspection and no thoracic nor lumbar tenderness Extremity: COMMON NORMALS: normal to inspection and full ROM Neuro: COMMON NORMALS: patient oriented x3 SENSORIUM/ORIENTATION: Yes alert OTHER: decreased pinprick sensation to the ulnar aspect of his forearm but not the lateral aspect. Strength is 5 out of 5 in all 4 extremities. His neuro exam is grossly intact otherwise. . Psych: COMMON NORMALS: mental status grossly normal and cooperative Skin: COMMON NORMALS: no rashes or lesions noted and no wounds GENERAL SKIN EXAM: no rashes or lesions noted Course Vital Signs: Vital signs: Vital Signs Temperature 98.3 F 08/21/22 08:58 Pulse Rate 78 08/21/22 11:33 Respiratory Rate 18 08/21/22 08:58 Blood Pressure 140/91 08/21/22 11:33 Pulse Oximetry 99 08/21/22 11:33 Oxygen Delivery Me thod 08/21/22 11:33 MDM - General Adult Medical Decision Making Patient comes in with left hand/forearm numbness as well as headache that he woke up with. States this has been happening for 3 to 4 weeks. States he will wake up with the numbness and headache and that it will go away after a couple of hours. States his symptoms are currently almost gone at this time. He still has some numbness in the left arm. On physical exam he has decreased pinprick sensation to the ulnar aspect of his forearm but not the lateral aspect. Strength is 5 out of 5 in all 4 extremities. His neuro exam is grossly intact otherwise. Physical exam is otherwise unremarkable. Will check labs, CT, and reassess. On reassessment I talked to the patient about the test results. He is resting comfortably in a gurney. He states his symptoms have resolved. Will discharge home at this time with precautions to return for worsening or changing symptoms Lab Data 08/21/22 09:25 08/21/22 09:[address] 08/21/22 09:13 IMPRESSION: 1. No acute hemorrhage or infarct. 2. 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 3. Mild atrophy and small vessel ischemic disease. Laboratory Results WBC 7.5 10^3/uL (4.0-10.0) 08/21/22 09:25 RBC 4.98 10^6/uL (4.1-5.3) 08/21/22 09:25 Hgb 13.8 g/dL (11.7-16.6) 08/21/22 09:25 Hct 44.5 % (42.0-52.0) 08/21/22 09:25 MCV 89.4 fl (80-94) 08/21/22 09:25 MCH 27.7 pg (28.0-34.0) L 08/21/22 09:25 MCHC 31.0 g/dL (30.0-36.0) 08/21/22 09:25 RDW 14.5 % (12.1-15.1) 08/21/22 09:25 Plt Count 235 10^3/cmm (130-400) 08/21/22 09:25 MPV 9.5 fL (7.4-10.4) 08/21/22 09:25 Neut % (Auto) 76.5 % 08/21/22 09:25 Lymph % (Auto) 16.1 % 08/21/22 09:25 [place] % (Auto) 6.1 % 08/21/22 09:25 Eos % (Auto) 0.5 % 08/21/22 09:25 Baso % (Auto) 0.4 % 08/21/22 09:25 Neut # (Auto) 5.76 10^3/uL (1.8-7.7) 08/21/22 09:25 Lymph # (Auto) 1.2 10^3/uL (0.8-4.8) 08/21/22 09:25 [place] # (Auto) 0.5 10^3/uL (0.2-0.9) 08/21/22 09:25 Eos # (Auto) 0.0 10^3/uL (0.0-0.8) 08/21/22 09:25 Baso # (Auto) 0.0 10^3/uL (0.0-0.1) 08/21/22 09:25 Nucleated RBC % (auto) 0 % 08/21/22 09:25 Nucleated RBCs # 0.0 /100WBC 08/21/22 09:25 Sodium 134 mmol/L (136-145) L 08/21/22 09:25 Potassium 5.0 mmol/L (3.5-5.1) 08/21/22 09:25 Chloride 98 mmol/L (98-107) 08/21/22 09:25 Carbon Dioxide 27 mmol/L (22-29) 08/21/22 09:25 Anion Gap 14.0 (5-19) 08/21/22 09:25 BUN 17 mg/dL (6-20) 08/21/22 09:25 Creatinine 1.1 mg/dL (0.7-1.2) 08/21/22 09:25 GFR Calculation 70.9 mL/min (90-130) L 08/21/22 09:25 Glucose 182 mg/dL (65-115) H 08/21/22 09:25 Calculated Osmolality 284 mOsm/kg (285-295) L 08/21/22 09:25 Calcium 8.9 mg/dL (8.5-10.5) 08/21/22 09:25 Total Bilirubin 1.0 mg/dL (0.15-1.2) 08/21/22 09:25 AST 23 U/L (0-40) 08/21/22 09:25 ALT 44 U/L (0-41) H 08/21/22 09:25 Alkaline Phosphatase 255 U/L (40-130) H 08/21/22 09:25 Troponin T Baseline 23 ng/L (0-15) H 08/21/22 09:25 Troponin T 120 Minute 21.97 ng/L (0-15) H 08/21/22 10:51 Delta Troponin T -1.03 ABS# (0-10) L 08/21/22 10:51 Total Protein 7.0 g/dL (6.6-8.7) 08/21/22 09:25 Albumin 4.0 g/dL (3.5-5.2) 08/21/22 09:25 Globulin 3.0 g/dL (1.3-4.6) 08/21/22 09:25 Lipase 38 U/L (13-60) 08/21/22 09:25 Discharge Plan Discharge Patient Disposition: Home Clinical Impression: Numbness Condition: Stable Prescriptions: No Action (DME) oxygen-air delivery systems Device See Rx Instructions .ROUTE .MEDSUPPLY Qty: 1 Rx Instructions: As directed albuterol sulfate 90 mcg/actuation HFA aerosol inhaler 2 puff inhalation QID PRN (Reason: Shortness Of Breath) atorvastatin [Lipitor] 80 mg Tablet 80 mg PO BEDTIME montelukast [Singulair] 10 mg Tablet 10 mg PO BEDTIME aspirin 81 mg Tablet,Delayed Release (Dr/Ec) 81 mg PO QAM Dulera 200-5 mcg/actuation HFA aerosol inhaler 2 puff INHALATION BID allopurinol 100 mg tablet 100 mg PO QAM ferrous sulfate 325 mg (65 mg iron) tablet 325 mg PO BID tamsulosin 0.4 mg capsule 0.4 mg PO QPM ziprasidone HCl 40 mg capsule 40 mg PO QAM sertraline 50 mg tablet 50 mg PO QAM atenolol 100 mg tablet 100 mg PO QAM folic acid 1 mg tablet 1 mg PO QAM ascorbic acid (vitamin C) 500 mg tablet 500 mg PO BID bumetanide 1 mg tablet 1 mg PO BID Hold Instructions: Resume on 11/26/21. magnesium hydroxide [Milk of Magnesia] 400 mg/5 mL Suspension 30 ml PO .EVERY 3RD DAY PRN (Reason: Constipation) bisacodyl [Dulcolax (bisacodyl)] 10 mg Suppository See Rx Instructions .ROUTE .COMPLEX Rx Instructions: 10 mg rectally after mom if no bm prn only if tabs refused magnesium citrate Solution See Rx Instructions .ROUTE .COMPLEX PRN (Reason: Constipation) Rx Instructions: 10 oz po after dulcolax if no bm prn bisacodyl [Dulcolax (bisacodyl)] 5 mg Tablet,Delayed Release (Dr/Ec) See Rx Instructions .ROUTE .COMPLEX Rx Instructions: 20 mg orally prn after mom no bm for constipation alum-mag hydroxide-simeth 200-200-20 mg/5 mL Suspension 30 ml PO Q2H PRN (Reason: Indigestion) meclizine 25 mg Tablet 25 mg PO Q8H PRN (Reason: Nausea) potassium chloride [Klor-Con M20] 20 mEq tablet,ER particles/crystals 40 meq PO QAM Hold Instructions: Resume on 11/26/21. acetaminophen [Tylenol] 325 mg capsule 650 mg PO Q4H PRN (Reason: pain/temp) insulin aspart U-100 [Novolog FlexPen U-100 Insulin] 100 unit/mL (3 mL) insulin pen See Rx Instructions .ROUTE .COMPLEX Qty: 15 0RF Rx Instructions: Inject subcu, 3 times daily, before meals, based on sliding scale glipizide 5 mg tablet 5 mg PO DAILY Januvia 100 mg tablet 100 mg PO DAILY Levemir FlexTouch U-100 Insuln 100 unit/mL (3 mL) insulin pen 10 unit SUBCUT QAM Discharge Orders: Discharge ED (Routine); Ordered 08/21/22 Ordered By: Go Jonas Referrals: Stewart Rosario MD [Physician] - Coding Level of Care Code ED Flooring Installer for Zac Pickett
[2022-08-21 09:31] LABS: Basophils % 0.4 %; Eosinophils % 0.5 %; Hematocrit 44.5 % (42.0-52.0); Hemoglobin 13.8 g/dL (11.7-16.6); Lymphocytes # 1.2 10^3/uL (0.8-4.8); Lymphocytes % 16.1 %; Mean Corpuscular Hemoglobin 27.7 pg (28.0-34.0); Mean Corpuscular Volume 89.4 fl (80-94); Mean Platelet Volume 9.5 fL (7.4-10.4); Monocytes # 0.5 10^3/uL (0.2-0.9); Monocytes % 6.1 %; Neutrophils # 5.76 10^3/uL (1.8-7.7); Neutrophils % 76.5 %; Nucleated Red Blood Cells % 0 %; Platelet Count 235 10^3/cmm (130-400); Red Blood Count 4.98 10^6/uL (4.1-5.3); Red Cell Distribution Width 14.5 % (12.1-15.1); White Blood Count 7.5 10^3/uL (4.0-10.0)
[2022-08-21 09:54] LABS: Alanine Aminotransferase 44 U/L (0-41); Alkaline Phosphatase 255 U/L (40-130); Aspartate Amino Transferase 23 U/L (0-40); Blood Urea Nitrogen 17 mg/dL (6-20); Calcium 8.9 mg/dL (8.5-10.5); Carbon Dioxide 27 mmol/L (22-29); Chloride 98 mmol/L (98-107); Glomerular Filtration Rate 70.9 mL/min (90-130); Glucose 182 mg/dL (65-115); Lipase 38 U/L (13-60); Osmolality Calculated 284 mOsm/kg (285-295); Sodium 134 mmol/L (136-145); Troponin(5th) Baseline 23 ng/L (0-15)
[2022-08-21 10:43] VITALS: BP 138/108; PULSE 79; O2SAT 95
[2022-08-21 11:15] LABS: Troponin 5 2HR 21.97 ng/L (0-15)
[2022-08-21 11:16] LABS: Troponin 5 2HR Delta -1.03 ABS# (0-10)
[2022-08-21 11:33] VITALS: BP 140/91; PULSE 78; O2SAT 99
--- NOTE | 2022-08-21 11:36 | ECG_ITS ---
[facility] Test Date: 2022-08-21 Pat Name: Arnol Guzman Department: Room: Gender: Male Pheresis Specialist: : 1970 Requested By: Go Jonas Order Number: [id number] Bernardino MD: Armand Bunch M.D. Measurements Intervals [place] Rate: 80 P: 66 TX: 203 QRS: 63 QRSD: 102 T: 77 QT: 379 QTc: 437 Interpretive Statements SINUS RHYTHM INDETERMINATE AXIS INCOMPLETE RIGHT BUNDLE BRANCH BLOCK [90+ ms QRS DURATION, TERMINAL R IN V1/V2, 40+ ms S IN I/aVL/V4/V5/V6] Compared to ECG 11/23/2021 05:22:30 Incomplete right bundle-branch block now present ST (T wave) deviation no longer present Electronically Signed On 08-21-2022 14:39:06 [employer]OTH PATTERN MAKER by Armand Bunch M.D. [id number]
[2022-08-21 16:10] VITALS: BP 143/104; PULSE 122; O2SAT 95
[2022-08-21 16:12] VITALS: BP 143/104; PULSE 122; O2SAT 95
== END 2022-08-21 16:15 | disposition home or self-care (01) ==
PROVIDERS: Emergency Provider Emergency Medicine; PCP General Practice
DX: R20.0 Anesthesia of skin (principal); Z79.82 Long term (current) use of aspirin; Z79.4 Long term (current) use of insulin; Z79.85 Long-term (current) use of injectable non-insulin antidiabetic drugs; Z77.22 Contact with and (suspected) exposure to environmental tobacco smoke (acute) (chronic); I11.0 Hypertensive heart disease with heart failure; I50.9 Heart failure, unspecified; E11.9 Type 2 diabetes mellitus without complications; Z86.73 Personal history of transient ischemic attack (TIA), and cerebral infarction without residual deficits; E78.2 Mixed hyperlipidemia
CPT/HCPCS: 36415; 70450; 80053; 83690; 84484; 85025; 93005; 99285

== ENCOUNTER → 2023-02-13 10:16 | Outpatient (BNVA) | payer MEDICAID, SELFPAY | PROVIDERS: PCP General Practice; Visit Provider Podiatrist Foot & Ankle Surgery | DX: M21.619 Bunion of unspecified foot (principal); M20.41 Other hammer toe(s) (acquired), right foot; M20.42 Other hammer toe(s) (acquired), left foot; E11.42 Type 2 diabetes mellitus with diabetic polyneuropathy; M21.41 Flat foot [pes planus] (acquired), right foot; M21.42 Flat foot [pes planus] (acquired), left foot; L60.3 Nail dystrophy; L84 Corns and callosities; Z79.4 Long term (current) use of insulin | CPT/HCPCS: 11056; 11721; 99204 ==

== ENCOUNTER 2023-05-07 00:51 | Emergency (ER) | payer MEDICAID, SELFPAY ==
[2023-05-07 00:52] VITALS: BP 140/79; PULSE 89; RESP 20; TEMP 37.4; O2SAT 95; BMI 59.1
[2023-05-07 01:07] VITALS: RESP 22; O2SAT 96
[2023-05-07 01:13] LABS: Basophils # 0.1 10^3/uL (0.0-0.1); Basophils % 0.5 %; Eosinophils # 0.1 10^3/uL (0.0-0.8); Eosinophils % 1.5 %; Lymphocytes # 1.3 10^3/uL (0.8-4.8); Lymphocytes % 14.1 %; Mean Corpuscular Hemoglobin 26.7 pg (27-33); Mean Corpuscular Volume 89.1 fl (82-101); Mean Platelet Volume 9.2 fL (7.4-10.4); Monocytes # 0.6 10^3/uL (0.2-0.9); Monocytes % 6.3 %; Neutrophils # 7.21 10^3/uL (1.8-7.7); Neutrophils % 77.3 %; Nucleated Red Blood Cells % 0 %; Platelet Count 209 10^3/cmm (157-399); Red Blood Count 5.05 10^6/uL (3.85-5.65); White Blood Count 9.34 10^3/uL (3.29-11.43)
[2023-05-07 01:31] LABS: Alanine Aminotransferase 35 U/L (0-41); Albumin Level 3.6 g/dL (3.5-5.2); Alkaline Phosphatase 221 U/L (40-130); Anion Gap 14.9 (5-19); Aspartate Amino Transferase 32 U/L (0-40); Blood Urea Nitrogen 19 mg/dL (6-20); Carbon Dioxide 28 mmol/L (22-29); Chloride 99 mmol/L (98-107); Globulin 3.5 g/dL (1.3-4.6); Glomerular Filtration Rate 58.2 mL/min (90-130); Glucose 285 mg/dL (65-115); Osmolality Calculated 297 mOsm/kg (285-295); Potassium 4.9 mmol/L (3.5-5.1); Sodium 137 mmol/L (136-145); Total Bilirubin 0.9 mg/dL (0.15-1.2); Total Protein 7.1 g/dL (6.6-8.7)
--- NOTE | 2023-05-07 01:36 | CTR_ITS ---
PROCEDURE INFORMATION: Exam: CT Abdomen And Pelvis With Contrast Exam date and time: 05/07/2023 1:47 AM Age: 53 years old Clinical indication: Abdominal pain; Localized; Left upper quadrant (luq); Prior surgery; Surgery date: 6+ months; Surgery type: Ventral hernia repair; Patient HX: C/O luq pain with bright red stool. ; Additional info: Luq pain gi bleeding TECHNIQUE: Imaging protocol: Computed tomography of the abdomen and pelvis with contrast. Radiation optimization: All CT scans at this facility use at least one of these dose optimization techniques: automated exposure control; mA and/or kV adjustment per patient size (includes targeted exams where dose is matched to clinical indication); or iterative reconstruction. Contrast material: OMNI 350; Contrast volume: 125 ml; Contrast route: INTRAVENOUS (IV); REPORTING DATA: Count of CT and Cardiac NM exams in prior 12 months: This patient has received [address] and 0 known cardiac nuclear medicine studies in the 12 months prior to the current study. COMPARISON: CT abdomen pelvis w con* [id number] 11/23/2021 1:33 AM RADIATION DOSE METRICS: Total DLP (mGy-cm): 1654.52 FINDINGS: Liver: There is a lobular contour of the liver with cirrhosis. Gallbladder and bile ducts: Normal. No calcified stones. No ductal dilation. Pancreas: Normal. No ductal dilation. Spleen: The spleen is mildly prominent measuring 14.4 cm craniocaudal dimension. Adrenal glands: Normal. No mass. Kidneys and ureters: There is a 3.1 cm hypoattenuation cystic lesions seen within the left kidney compatible with a simple cyst. There are 2 nonobstructing calculi seen within the right kidney, the largest seen within the right renal pelvis measuring 7.4 x 10.5 mm. Stomach and bowel: Unremarkable. No obstruction. No mucosal thickening. Appendix: The appendix is visualized and is normal in configuration. Intraperitoneal space: Unremarkable. No free air. No significant fluid collection. Vasculature: There is recanalization of the umbilical vein. Lymph nodes: Unremarkable. No enlarged lymph nodes. Urinary bladder: Unremarkable as visualized. Reproductive: Unremarkable as visualized. Bones/joints: Unremarkable. No acute fracture. Soft tissues: Unremarkable. CT/CT abdomen pelvis w con* [id number] IMPRESSION: 1. Lobular contour of the liver compatible with cirrhosis. 2. Mild splenomegaly 3. Recanalization of the umbilical vein 4. Simple left renal cyst measuring 3.1 cm. No further workup needed. 5. Two nonobstructing right renal calculi, the largest measuring 7.4 x 10.5 mm within the renal pelvis. 6. Normal appendix COMMENTS: Consistent with the [employer]'s Incidental Findings Committee white paper (J Am Eryn Radiol 2018): Any incidental renal lesion less than 1 cm or classified as too small to characterize, or any incidental cystic renal lesion characterized as simple-appearing, is likely benign. No follow-up imaging is recommended for these lesions per consensus recommendations based on imaging criteria.
[2023-05-07 01:46] VITALS: BP 133/66; PULSE 88; RESP 20; O2SAT 97
[2023-05-07 01:47] LABS: Erythrocyte Sedimentation Rate 33 mm/hr (0-10)
[2023-05-07] MEDS: iohexol 350 mg/mL 500 mL Btl (per mL) IV (01:51)
--- NOTE | 2023-05-07 02:00 | W.ED.GIBLEED ---
HPI - GI Bleed General: Chief complaint: GI Bleed Stated complaint: BLOODY STOOL Time Seen by Provider: 05/07/23 01:26 History of Present Illness: 53-year-old male complaining of bloody bowel movements. He has had some left upper quadrant pain this evening. He had passage of red blood with clots in his stool this evening. He then had 1 more episode at home. No vomiting. No history of fever. No history of abdominal surgery. He was told in his 20s that he had hemorrhoids. MD complaint: gross hematochezia Associated symptoms: Reports abdominal pain; Denies chills, fever(s), headache(s), nausea, rash or vomiting Review of Systems Const: Denies: fever(s), chills or body aches Eyes: Denies: change in vision Card: Denies: chest pain or palpitations Resp: Denies: dyspnea, productive cough, non-productive cough or wheezing GI: Reports: abdominal pain and hematochezia; Denies: nausea, vomiting or diarrhea Skin/Breast: Denies: rash Neuro: Denies: headache(s), weakness in extremities, dizziness or confusion PFSH ED PFSH: Medical History Acute respiratory failure with hypoxia and hypercapnia Anemia -has chronic iron deficiency anemia, baseline Hg is around 9-10 Anxiety Chest pain Chest pain CHF (congestive heart failure) -Echo (07/2019): EF=68%, normal diastolic function, no RWMA -on oral lasix -no acute exacerbation currently CHF (congestive heart failure) Chronic anemia Chronic respiratory failure Decubitus ulcer limited to breakdown of skin (stage 2) Depression Diabetes -NIDDM type II -A1c (11/2019): 8.2 -Accuchecks, ISS, hypoglycemia precautions -consistent carb diet -anticipate hyperglycemia with steroid use Diabetes mellitus Gout History of CVA (cerebrovascular accident) Hyperlipemia, mixed Hypertension -VSS; continue to monitor -continue oral antihypertensives Hypertension Major depressive disorder, recurrent, moderate Morbid (severe) obesity due to excess calories Morbid obesity OPAL (obstructive sleep apnea) -in the process of getting CPAP set up Pneumonia Psychiatric care Transient cerebral ischemia Surgical History History of adenoidectomy History of hernia repair History of tonsillectomy History of umbilical hernia repair Family History Mother Hypertension CAD (coronary artery disease) Stroke Social History Smoking and tobacco/nicotine status: never used tobacco/nicotine Second hand smoke exposure: Yes Alcohol intake: never Substance/Drug Use: never Adopted: No Caregiver/support person: No Lives independently: Yes Household members: family and friend(s) Housing: Manufactured/Mobile home Marital status: Single Number of children: 0 Number of grandchildren: 0 Highest education level completed: 8th Grade service: No Current occupational status: disabled Pets and animals: No Leisure activites: other Leisure activities details: play card games Sexually active: No Do you think of yourself as: Straight/Heterosexual Current gender identity: Male Yolanda/Yarsanism: Other Special yolanda needs: No Agree to transfusion: Yes Physical Exam Const: COMMON NORMALS: no acute distress GENERAL APPEARANCE: cooperative; not ill appearing and not frail appearing NUTRITIONAL APPEARANCE: obese HENMT: COMMON NORMALS: normocephalic, atraumatic and Normal external nose present HEAD & SCALP: normocephalic and atraumatic FACE & SINUS: normal facial exam and face symmetric NOSE: Normal external nose present Eye: COMMON NORMALS: Equal, round and reactive pupils present and EOMs intact bilaterally PUPIL: Yes Equal, round and reactive pupils present Neck/C-Spine: GENERAL: Yes trachea midline Chest: CHEST: Yes Symmetrical chest wall rise Resp: COMMON NORMALS: normal respiratory effort, No retractions, No use of accessory muscles and clear to auscultation bilaterally AUSCULTATION: clear to auscultation bilaterally Cardio: COMMON NORMALS: regular rate and regular rhythm RATE: regular rate RHYTHM: regular rhythm GI: COMMON NORMALS: Normal to inspection, nondistended, normoactive bowel sounds present PALPATION: Yes Tenderness to palpation present (GI) Details: LUQ and Yes Guarding due to palpation present (GI) RECTAL EXAM: Yes heme positive stool, No hemorrhoids and No Rectal prolapse Extremity: COMMON NORMALS: no pedal edema Neuro: ENRRIQUE COMA SCALE: document GCS findings [place] coma scale eye opening: Spontaneous Enrrique coma scale verbal response: Orientated [place] coma scale motor response: Obey commands [place] coma scale total score: 15 SENSORY EXAM: Yes extremities (intact) Psych: COMMON NORMALS: speech normal SPEECH: Yes normal speech Skin: COMMON NORMALS: no rashes or lesions noted GENERAL SKIN EXAM: no rashes or lesions noted Course Vital Signs: Vital signs: Vital Signs Temperature 99.3 F 05/07/23 00:52 Pulse Rate 88 05/07/23 01:46 Respiratory Rate 20 H 05/07/23 01:46 Blood Pressure 133/66 05/07/23 01:46 Pulse Oximetry 97 05/07/23 01:46 Oxygen Delivery Me thod Room Air 05/07/23 01:46 MDM - GI Bleed Medical Decision Making The patient is heme positive rectally. Clinically, he is stable normotensive and nontachycardic. Rectal exam is not overly painful or significant for any external hemorrhoids. His hemoglobin is 13.5 with normal platelet count. He is not anticoagulated. CT is performed and shows mild splenomegaly, and no acute findings. He will be allowed home with stool softeners for potential internal hemorrhoidal bleeding. Lab Data 05/07/23 01:05 05/07/23 01:05 Radiology Impressions Abdomen/Pelvis CT 05/07/23 01:36 IMPRESSION: 1. Lobular contour of the liver compatible with cirrhosis. 2. Mild splenomegaly 3. Recanalization of the umbilical vein 4. Simple left renal cyst measuring 3.1 cm. No further workup needed. 5. Two nonobstructing right renal calculi, the largest measuring 7.4 x 10.5 mm within the renal pelvis. 6. Normal appendix COMMENTS: Consistent with the [employer]'s Incidental Findings Committee white paper (J Am Eryn Radiol 2018): Any incidental renal lesion less than 1 cm or classified as too small to characterize, or any incidental cystic renal lesion characterized as simple-appearing, is likely benign. No follow-up imaging is recommended for these lesions per consensus recommendations based on imaging criteria. Laboratory Results WBC 9.34 10^3/uL (3.29-11.43) 05/07/23 01:05 RBC 5.05 10^6/uL (3.85-5.65) 05/07/23 01:05 Hgb 13.50 g/dL (11.27-16.99) 05/07/23 01:05 Hct 45.0 % (37-53) 05/07/23 01:05 MCV 89.1 fl (82-101) 05/07/23 01:05 MCH 26.7 pg (27-33) L 05/07/23 01:05 MCHC 30.0 g/dL (30-55) 05/07/23 01:05 RDW 16.0 % (12.1-15.1) H 05/07/23 01:05 Plt Count 209 10^3/cmm (157-399) 05/07/23 01:05 MPV 9.2 fL (7.4-10.4) 05/07/23 01:05 Neut % (Auto) 77.3 % 05/07/23 01:05 Lymph % (Auto) 14.1 % 05/07/23 01:05 [place] % (Auto) 6.3 % 05/07/23 01:05 Eos % (Auto) 1.5 % 05/07/23 01:05 Baso % (Auto) 0.5 % 05/07/23 01:05 Neut # (Auto) 7.21 10^3/uL (1.8-7.7) 05/07/23 01:05 Lymph # (Auto) 1.3 10^3/uL (0.8-4.8) 05/07/23 01:05 [place] # (Auto) 0.6 10^3/uL (0.2-0.9) 05/07/23 01:05 Eos # (Auto) 0.1 10^3/uL (0.0-0.8) 05/07/23 01:05 Baso # (Auto) 0.1 10^3/uL (0.0-0.1) 05/07/23 01:05 Nucleated RBC % (auto) 0 % 05/07/23 01:05 Nucleated RBCs # 0.0 /100WBC 05/07/23 01:05 ESR 33 mm/hr (0-10) H 05/07/23 01:05 Sodium 137 mmol/L (136-145) 05/07/23 01:05 Potassium 4.9 mmol/L (3.5-5.1) 05/07/23 01:05 Chloride 99 mmol/L (98-107) 05/07/23 01:05 Carbon Dioxide 28 mmol/L (22-29) 05/07/23 01:05 Anion Gap 14.9 (5-19) 05/07/23 01:05 BUN 19 mg/dL (6-20) 05/07/23 01:05 Creatinine 1.3 mg/dL (0.7-1.2) H 05/07/23 01:05 GFR Calculation 58.2 mL/min (90-130) L 05/07/23 01:05 Glucose 285 mg/dL (65-115) H 05/07/23 01:05 Calculated Osmolality 297 mOsm/kg (285-295) H 05/07/23 01:05 Calcium 9.0 mg/dL (8.5-10.5) 05/07/23 01:05 Total Bilirubin 0.9 mg/dL (0.15-1.2) 05/07/23 01:05 AST 32 U/L (0-40) 05/07/23 01:05 ALT 35 U/L (0-41) 05/07/23 01:05 Alkaline Phosphatase 221 U/L (40-130) H 05/07/23 01:05 C-Reactive Protein 19.4 mg/L (0.0-4.9) H 05/07/23 01:05 Total Protein 7.1 g/dL (6.6-8.7) 05/07/23 01:05 Albumin 3.6 g/dL (3.5-5.2) 05/07/23 01:05 Globulin 3.5 g/dL (1.3-4.6) 05/07/23 01:05 Lipase 97 U/L (13-60) H 05/07/23 01:05 Urine Color Yellow (Yellow) 05/07/23 01:45 Urine Appearance Clear (CLEAR) 05/07/23 01:45 Urine pH 5 (5-7) 05/07/23 01:45 Ur Specific [place] 1.020 (1.005-1.030) 05/07/23 01:45 Urine Protein 1+ (Negative) H 05/07/23 01:45 Urine Glucose (UA) 1+ (Normal) H 05/07/23 01:45 Urine Ketones 1+ (Negative) H 05/07/23 01:45 Urine Blood 3+ (Negative) H 05/07/23 01:45 Urine Nitrate Negative (Negative) 05/07/23 01:45 Urine Bilirubin 1+ (Negative) H 05/07/23 01:45 Urine Urobilinogen 4 mg/dL (Negative) H 05/07/23 01:45 Ur Leukocyte Esterase Trace (Negative) H 05/07/23 01:45 Urine RBC 10-15 /hpf (0-2) H 05/07/23 01:45 Urine WBC 5-10 /hpf (0-5) H 05/07/23 01:45 Ur Squamous Epith Cells 0-4 /hpf (0-5) H 05/07/23 01:45 Amorphous Sediment 1+ /hpf 05/07/23 01:45 Urine Bacteria Trace /hpf (NONE) 05/07/23 01:45 Urine Mucus 1+ /hpf 05/07/23 01:45 Urine Sperm 1+ /hpf 05/07/23 01:45 All radiology interpretation(s) finalized by discharge Discharge Plan Discharge Patient Disposition: Home Clinical Impression: GI bleed, Anxiety Condition: Stable Prescriptions: New Anusol-HC 25 mg suppository 25 mg [place] BID Qty: 12 0RF docusate sodium 100 mg tablet 100 mg PO BID Qty: 14 0RF No Action (DME) oxygen-air delivery systems Device See Rx Instructions .ROUTE .MEDSUPPLY Qty: 1 Rx Instructions: As directed albuterol sulfate 90 mcg/actuation HFA aerosol inhaler 2 puff inhalation QID PRN (Reason: Shortness Of Breath) (DME) diabetic shoes with 3 pairs of inserts See Rx Instructions .Route .MEDSUPPLY Qty: 1 0RF Rx Instructions: As directed by BOAZ&O atorvastatin [Lipitor] 80 mg Tablet 80 mg PO BEDTIME montelukast [Singulair] 10 mg Tablet 10 mg PO BEDTIME aspirin 81 mg Tablet,Delayed Release (Dr/Ec) 81 mg PO QAM Dulera 200-5 mcg/actuation HFA aerosol inhaler 2 puff INHALATION BID allopurinol 100 mg tablet 100 mg PO QAM ferrous sulfate 325 mg (65 mg iron) tablet 325 mg PO BID tamsulosin 0.4 mg capsule 0.4 mg PO QPM ziprasidone HCl 40 mg capsule 40 mg PO QAM sertraline 50 mg tablet 50 mg PO QAM atenolol 100 mg tablet 100 mg PO QAM folic acid 1 mg tablet 1 mg PO QAM ascorbic acid (vitamin C) 500 mg tablet 500 mg PO BID bumetanide 1 mg tablet 1 mg PO BID Hold Instructions: Resume on 11/26/21. magnesium hydroxide [Milk of Magnesia] 400 mg/5 mL Suspension 30 ml PO .EVERY 3RD DAY PRN (Reason: Constipation) bisacodyl [Dulcolax (bisacodyl)] 10 mg Suppository See Rx Instructions .ROUTE .COMPLEX Rx Instructions: 10 mg rectally after mom if no bm prn only if tabs refused magnesium citrate Solution See Rx Instructions .ROUTE .COMPLEX PRN (Reason: Constipation) Rx Instructions: 10 oz po after dulcolax if no bm prn bisacodyl [Dulcolax (bisacodyl)] 5 mg Tablet,Delayed Release (Dr/Ec) See Rx Instructions .ROUTE .COMPLEX Rx Instructions: 20 mg orally prn after mom no bm for constipation alum-mag hydroxide-simeth 200-200-20 mg/5 mL Suspension 30 ml PO Q2H PRN (Reason: Indigestion) meclizine 25 mg Tablet 25 mg PO Q8H PRN (Reason: Nausea) potassium chloride [Klor-Con M20] 20 mEq tablet,ER particles/crystals 40 meq PO QAM Hold Instructions: Resume on 11/26/21. acetaminophen [Tylenol] 325 mg capsule 650 mg PO Q4H PRN (Reason: pain/temp) insulin aspart U-100 [Novolog FlexPen U-100 Insulin] 100 unit/mL (3 mL) insulin pen See Rx Instructions .ROUTE .COMPLEX Qty: 15 0RF Rx Instructions: Inject subcu, 3 times daily, before meals, based on sliding scale glipizide 5 mg tablet 5 mg PO DAILY Januvia 100 mg tablet 100 mg PO DAILY Levemir FlexTouch U100 Insulin 100 unit/mL (3 mL) insulin pen 10 unit SUBCUT QAM Discharge Orders: Discharge ED (Routine); Ordered 05/07/23 Ordered By: Kvng Godinez Referrals: Bruce Trejo MD [Primary Care Provider] - 1-3 days Patient Instructions: Rectal Bleeding (ED), Opioid Safety, Pain Management Activity Restrictions/Additional Instructions: Medication as directed. Your stool needs to stay soft to prevent further bleeding. No other cause was found today. You should have your blood count rechecked on Sunday. See your doctor for this. Return for significant blood loss, vomiting, fever, other concerning symptoms. Coding Level of Care Code ED Senior Sales Associate for Chg Fwd
[2023-05-07 02:01] LABS: C Reactive Protein 19.4 mg/L (0.0-4.9); Lipase 97 U/L (13-60)
[2023-05-07 02:25] LABS: Bilirubin Urine 1+ (Negative); Blood Urine 3+ (Negative); Glucose Urine UA 1+ (Normal); Ketones Urine 1+ (Negative); Nitrate Urine Negative (Negative); Protein Urine 1+ (Negative); Urine Appearance Clear (CLEAR); Urine Color Yellow (Yellow); Urobilinogen Urine 4 mg/dL (Negative); pH Urine 5 (5-7)
[2023-05-07 02:26] LABS: Add Urine Microscopic? YES; Amorphous Sediment Urine 1+ /hpf; Bacteria Urine TRACE /hpf; Leukocyte Esterase Urine Trace (Negative); Mucus Urine 1+ /hpf; Sperm Urine 1+ /hpf; Squamous Epithelial Cell Urine 0-4 /hpf (0-5)
[2023-05-07 02:58] VITALS: BP 145/62; PULSE 87; RESP 18; O2SAT 95
[2023-05-07 03:06] VITALS: BP 170/86; PULSE 88; RESP 20; O2SAT 94
== END 2023-05-07 03:08 | disposition home or self-care (01) ==
PROVIDERS: Emergency Provider Emergency Medicine; PCP General Practice
DX: K92.2 Gastrointestinal hemorrhage, unspecified (principal); F41.9 Anxiety disorder, unspecified; Z79.82 Long term (current) use of aspirin; Z79.4 Long term (current) use of insulin; Z79.84 Long term (current) use of oral hypoglycemic drugs; N20.0 Calculus of kidney; Z77.22 Contact with and (suspected) exposure to environmental tobacco smoke (acute) (chronic); I11.0 Hypertensive heart disease with heart failure; I50.9 Heart failure, unspecified; E11.9 Type 2 diabetes mellitus without complications; Z86.73 Personal history of transient ischemic attack (TIA), and cerebral infarction without residual deficits; E78.2 Mixed hyperlipidemia
CPT/HCPCS: 74177; 80053; 81001; 83690; 85025; 85651; 86140; 99285; Q9967

== ENCOUNTER → 2023-06-04 10:19 | Outpatient (BNVA) | payer MEDICAID, SELFPAY | PROVIDERS: PCP General Practice; Visit Provider Podiatrist Foot & Ankle Surgery | DX: M21.619 Bunion of unspecified foot (principal); E11.42 Type 2 diabetes mellitus with diabetic polyneuropathy; M20.42 Other hammer toe(s) (acquired), left foot; M20.41 Other hammer toe(s) (acquired), right foot; M21.41 Flat foot [pes planus] (acquired), right foot; M21.42 Flat foot [pes planus] (acquired), left foot; Z79.4 Long term (current) use of insulin | CPT/HCPCS: 99213 ==

== ENCOUNTER → 2023-06-19 09:43 | Outpatient (BNVA) | payer MEDICAID, SELFPAY | PROVIDERS: PCP Family Medicine; Referring Provider Family Medicine; Visit Provider Surgery | DX: K92.1 Melena | CPT/HCPCS: 99204 ==

== ENCOUNTER 2023-10-17 09:15 | Day surgery (SDC) | payer MEDICAID, SELFPAY ==
--- NOTE | 2023-10-17 09:47 | P.ANESASSM_ITS ---
Pre-Anesthetic Assessment Height/Weight: Height 1.55 m Preop Diagnosis: screening Operation Date: 10/17/23 07:00 Proposed Procedures p 24020 colon G0121 screen colon A risk Z12.11,K92.1(Not Applicable) - Eugene Pisano, DO Was Beta Deepali taken within 24 hours: Yes Was Clonidine taken within 24 hours: N/A Social No alcohol and No tobacco Exam alert, oriented x 3 and regular rate & rhythm Airway Mallampati: Class III Dentition: false History/ROS No significant history except as noted Pulmonary Asthma CV/HEM Anemia, Congestive Heart Failure (ef 68%) and Hypertension None reported Hepatic None reported GI None reported Metabolic Diabetes Mellitus, Hyperlipidemia and Morbid Obesity gout Musc/skel None reported Neuropsych Cerebrovascular Accident (left sided weakness) Anesthetic Plan ASA status: 3 Anesthesia: Anesthesia Evaluation and MAC Risk of > 500 ml blood loss (7ml/kg in children): No Medications/Allergies Home Medications Medication Instructions Recorded Confirmed Last Taken Type atorvastatin 80 mg tablet (Lipitor) 80 mg PO BEDTIME 07/14/19 10/15/23 10/15/23 History montelukast 10 mg tablet 10 mg PO BEDTIME 07/14/19 10/15/23 10/15/23 History (Singulair) oxygen-air delivery systems ##1 03/11/20 09/03/23 09/03/23 History aspirin 81 mg tablet,delayed 81 mg PO QAM 09/13/20 10/15/23 10/15/23 History release mometasone-formoterol HFA 200 2 puff inhalation BID 11/24/20 10/15/23 10/15/23 History mcg-5 mcg/actuation aerosol inhaler (Dulera) allopurinol 100 mg tablet 100 mg PO QAM 02/16/21 10/15/23 10/15/23 History tamsulosin 0.4 mg capsule 0.4 mg PO QPM 07/13/21 10/15/23 10/15/23 History ziprasidone HCl 40 mg capsule 40 mg PO QAM 07/13/21 10/15/23 10/15/23 History (Geodon) atenolol 100 mg tablet 100 mg PO QAM 11/03/21 10/15/23 10/15/23 History bumetanide 1 mg tablet 1 mg PO DAILY 11/04/21 10/15/23 10/15/23 History acetaminophen 325 mg capsule 650 mg PO Q4H PRN pain/temp 11/23/21 10/15/23 Unknown History (Tylenol) insulin aspart U-100 100 unit/mL See Rx Instructions .Route 11/25/21 10/15/23 10/15/23 Rx (3 mL) subcutaneous pen (Novolog .COMPLEX #15 mL FlexPen U-100 Insulin aspart) glipizide 5 mg tablet 5 mg PO DAILY 08/21/22 10/15/23 10/15/23 History insulin detemir U-100 100 unit/mL 18 unit SUBCUT QAM 08/21/22 10/15/23 10/15/23 History (3 mL) subcutaneous pen (Levemir FlexTouch U-100 Insulin) sitagliptin phosphate 100 mg 100 mg PO DAILY 08/21/22 10/15/23 10/15/23 History tablet (Januvia) diabetic shoes with 3 pairs of #1 ea 02/13/23 09/03/23 09/03/23 Rx inserts bisacodyl 5 mg tablet,delayed 10 mg PO Q12H PRN Constipation 10/15/23 10/15/23 Unknown History release (Dulcolax (bisacodyl)) cetirizine 10 mg tablet (Zyrtec) 10 mg PO DAILY 10/15/23 10/15/23 10/15/23 History polyethylene glycol 3350 17 gram 17 g PO DAILY PRN Constipation 10/15/23 10/15/23 Unknown History oral powder packet potassium chloride 40 mEq/15 mL 40 meq PO DAILY 10/15/23 10/15/23 10/15/23 History oral liquid sertraline 100 mg tablet 100 mg PO DAILY 10/15/23 10/15/23 10/15/23 History sitagliptin phosphate 50 1 tab PO BID 10/15/23 10/15/23 10/15/23 History mg-metformin 1,000 mg tablet (Janumet) Allergies Allergy/AdvReac Type Severity Reaction Status Date / Time aripiprazole [From Abilify] Allergy Unknown Verified 10/17/23 09:46 Calcium Channel Blocking Allergy ADR/ALGY-Pa Verified 10/17/23 09:46 Agent Dilt lpitations Penicillins Allergy ALGY-Hives Verified 09/03/23 13:42 diltiazem [From Cardizem] AdvReac ADR/ALGY-Pa Verified 09/03/23 13:42 lpitations [facility] Anesthesia Medical History (Updated 09/26/23 @ 10:05 by Karen Jimenes) History of CVA (cerebrovascular accident) Diabetes mellitus Chronic anemia Major depressive disorder, recurrent, moderate Morbid obesity Acute respiratory failure with hypoxia and hypercapnia Chest pain Hypertension CHF (congestive heart failure) Chest pain Chronic respiratory failure Anxiety Depression Transient cerebral ischemia Decubitus ulcer limited to breakdown of skin (stage 2) Anemia -has chronic iron deficiency anemia, baseline Hg is around 9-10 Pneumonia Hyperlipemia, mixed OPAL (obstructive sleep apnea) -in the process of getting CPAP set up Morbid (severe) obesity due to excess calories Gout CHF (congestive heart failure) -Echo (07/2019): EF=68%, normal diastolic function, no RWMA -on oral lasix -no acute exacerbation currently Hypertension -VSS; continue to monitor -continue oral antihypertensives Diabetes -NIDDM type II -A1c (11/2019): 8.2 -Accuchecks, ISS, hypoglycemia precautions -consistent carb diet -anticipate hyperglycemia with steroid use Surgical History History of umbilical hernia repair History of tonsillectomy History of hernia repair History of adenoidectomy Family History Mother Hypertension CAD (coronary artery disease) Stroke Social History Smoking and tobacco/nicotine status: never used tobacco/nicotine Second hand smoke exposure: Yes Alcohol intake: never Substance/Drug Use: never Adopted: No Caregiver/support person: No Lives independently: Yes Household members: family and friend(s) Housing: Manufactured/Mobile home Marital status: Single Number of children: 0 Number of grandchildren: 0 Highest education level completed: 8th Grade service: No Current occupational status: disabled Pets and animals: No Leisure activites: other Leisure activities details: play card games Sexually active: No Do you think of yourself as: Straight/Heterosexual Current gender identity: Male Yolanda/Gnosticist: Other Special yolanda needs: No Agree to transfusion: Yes Data Anesthesia Cardiac Studies: Echocardiogram 07/13/21 Echocardiogram Ultrasound 07/14/19 Cardiac Event Monitor 03/23/20
[2023-10-17 09:53] VITALS: BP 165/81; PULSE 80; RESP 18; TEMP 36.5; O2SAT 95; BMI 59.5
[2023-10-17] MEDS: sodium chloride 0.9% 1,000 ML 30 ML IV (10:00)
[2023-10-17 10:02] VITALS: PULSE 80; RESP 16; O2SAT 95
[2023-10-17 10:05] LABS: Glucose Point of Care 303 mg/dL (70-110)
[2023-10-17 10:11] VITALS: PULSE 84
[2023-10-17] MEDS: albuterol 2.5 mg/3 mL Neb INHALATION (10:11)
--- NOTE | 2023-10-17 10:44 | PM.HP ---
Providers/Chief Complaint Primary Care Provider: Eddie Willoughby MD Chief Complaint: Z12.11, K92.1 History of Present Illness Arnol Guzman is a 53 year old male Review of Systems General: Reports: 10 or more systems reviewed and unremarkable except in HPI and below Medications/Allergies Home Medications Medication Instructions Recorded Confirmed Last Taken Type atorvastatin 80 mg tablet (Lipitor) 80 mg PO BEDTIME 07/14/19 10/15/23 10/16/23 History montelukast 10 mg tablet 10 mg PO BEDTIME 07/14/19 10/15/23 10/16/23 History (Singulair) oxygen-air delivery systems ##1 03/11/20 09/03/23 10/16/23 History aspirin 81 mg tablet,delayed 81 mg PO QAM 09/13/20 10/15/23 10/15/23 History release mometasone-formoterol HFA 200 2 puff inhalation BID 11/24/20 10/15/23 10/16/23 History mcg-5 mcg/actuation aerosol inhaler (Dulera) allopurinol 100 mg tablet 100 mg PO QAM 02/16/21 10/15/23 10/16/23 History tamsulosin 0.4 mg capsule 0.4 mg PO QPM 07/13/21 10/15/23 10/16/23 History ziprasidone HCl 40 mg capsule 40 mg PO QAM 07/13/21 10/15/23 10/16/23 History (Geodon) atenolol 100 mg tablet 100 mg PO QAM 11/03/21 10/15/23 10/16/23 History bumetanide 1 mg tablet 1 mg PO DAILY 11/04/21 10/15/23 10/16/23 History acetaminophen 325 mg capsule 650 mg PO Q4H PRN pain/temp 11/23/21 10/15/23 Unknown History (Tylenol) insulin aspart U-100 100 unit/mL See Rx Instructions .Route 11/25/21 10/15/23 10/16/23 Rx (3 mL) subcutaneous pen (Novolog .COMPLEX #15 mL FlexPen U-100 Insulin aspart) glipizide 5 mg tablet 5 mg PO DAILY 08/21/22 10/15/23 10/16/23 History insulin detemir U-100 100 unit/mL 18 unit SUBCUT QAM 08/21/22 10/15/23 10/16/23 History (3 mL) subcutaneous pen (Levemir FlexTouch U-100 Insulin) sitagliptin phosphate 100 mg 100 mg PO DAILY 08/21/22 10/15/23 10/16/23 History tablet (Januvia) diabetic shoes with 3 pairs of #1 ea 02/13/23 09/03/23 10/16/23 Rx inserts bisacodyl 5 mg tablet,delayed 10 mg PO Q12H PRN Constipation 10/15/23 10/15/23 Unknown History release (Dulcolax (bisacodyl)) cetirizine 10 mg tablet (Zyrtec) 10 mg PO DAILY 10/15/23 10/15/23 10/16/23 History polyethylene glycol 3350 17 gram 17 g PO DAILY PRN Constipation 10/15/23 10/15/23 Unknown History oral powder packet potassium chloride 40 mEq/15 mL 40 meq PO DAILY 10/15/23 10/15/23 10/16/23 History oral liquid sertraline 100 mg tablet 100 mg PO DAILY 10/15/23 10/15/23 10/16/23 History sitagliptin phosphate 50 1 tab PO BID 10/15/23 10/15/23 10/16/23 History mg-metformin 1,000 mg tablet (Janumet) Allergies Allergy/AdvReac Type Severity Reaction Status Date / Time aripiprazole [From Abilify] Allergy Unknown Verified 10/17/23 09:46 Calcium Channel Blocking Allergy ADR/ALGY-Pa Verified 10/17/23 09:46 Agent Dilt lpitations Penicillins Allergy ALGY-Hives Verified 09/03/23 13:42 diltiazem [From Cardizem] AdvReac ADR/ALGY-Pa Verified 09/03/23 13:42 lpitations PFSH Acute PFSH: Medical History History of CVA (cerebrovascular accident) Diabetes mellitus Chronic anemia Major depressive disorder, recurrent, moderate Morbid obesity Acute respiratory failure with hypoxia and hypercapnia Chest pain Hypertension CHF (congestive heart failure) Chest pain Chronic respiratory failure Anxiety Depression Transient cerebral ischemia Decubitus ulcer limited to breakdown of skin (stage 2) Anemia -has chronic iron deficiency anemia, baseline Hg is around 9-10 Pneumonia Hyperlipemia, mixed OPAL (obstructive sleep apnea) -in the process of getting CPAP set up Morbid (severe) obesity due to excess calories Gout CHF (congestive heart failure) -Echo (07/2019): EF=68%, normal diastolic function, no RWMA -on oral lasix -no acute exacerbation currently Hypertension -VSS; continue to monitor -continue oral antihypertensives Diabetes -NIDDM type II -A1c (11/2019): 8.2 -Accuchecks, ISS, hypoglycemia precautions -consistent carb diet -anticipate hyperglycemia with steroid use Surgical History History of umbilical hernia repair History of tonsillectomy History of hernia repair History of adenoidectomy Family History Mother Hypertension CAD (coronary artery disease) Stroke Social History Smoking and tobacco/nicotine status: never used tobacco/nicotine Second hand smoke exposure: Yes Alcohol intake: never Substance/Drug Use: never Adopted: No Caregiver/support person: No Lives independently: Yes Household members: family and friend(s) Housing: Manufactured/Mobile home Marital status: Single Number of children: 0 Number of grandchildren: 0 Highest education level completed: 8th Grade service: No Current occupational status: disabled Pets and animals: No Leisure activites: other Leisure activities details: play card games Sexually active: No Do you think of yourself as: Straight/Heterosexual Current gender identity: Male Yolanda/Rastafari: Other Special yolanda needs: No Agree to transfusion: Yes Vitals/I&O/Wt Last Vital Signs Temp 97.7 F 10/17/23 09:53 Pulse 84 10/17/23 10:11 Resp 16 10/17/23 10:02 BP 165/81 10/17/23 09:53 Pulse Ox 95 10/17/23 10:02 O2 Del Method Room Air 10/17/23 10:02 Weight last 48 hrs Weight 315 lb A&P Assessment and plan (1) GI bleed: (2) Colon cancer screening: Plan Colonoscopy Attestations Medical Necessity Statement*: home Coding Level of Care Code Acute Code for Chg Fwd Diagnoses GI bleed K92.2 Colon cancer screening Z12.11
[2023-10-17 10:59] VITALS: BP 129/85; PULSE 89; RESP 15; TEMP 36.7; O2SAT 95
[2023-10-17 11:17] VITALS: BP 141/86; PULSE 103; RESP 18; O2SAT 96
--- NOTE | 2023-10-17 15:23 | ANE.PACU2 ---
Inpatient post-anesthesia follow up: Airway intact: Yes Vital signs: Temperature 98.1 F Pulse Rate 103 Respiratory Rate 18 Blood Pressure 141/86 Pulse Oximetry 96 Oxygen Delivery Me thod Room Air Oxygen Flow Rate 2 Fraction of Inspir ed Oxygen Hydration adequate: Yes Nausea and vomiting: No Pain level: 2 Mental status: Baseline
== END 2023-10-17 11:52 | disposition home or self-care (01) ==
PROVIDERS: PCP Internal Medicine; Visit Provider Surgery
PROC: 0DJD8ZZ Inspection of Lower Intestinal Tract, Via Natural or Artificial Opening Endoscopic (ICD-10-PCS; CPT 45378; principal; 2023-10-17 07:00)
DX: K92.1 Melena (principal); D12.8 Benign neoplasm of rectum; Z99.81 Dependence on supplemental oxygen; Z79.4 Long term (current) use of insulin; Z86.73 Personal history of transient ischemic attack (TIA), and cerebral infarction without residual deficits; E11.9 Type 2 diabetes mellitus without complications; E66.01 Morbid (severe) obesity due to excess calories; Z68.43 Body mass index [BMI] 50.0-59.9, adult; I11.0 Hypertensive heart disease with heart failure; I50.9 Heart failure, unspecified; E78.2 Mixed hyperlipidemia; G47.33 Obstructive sleep apnea (adult) (pediatric)
CPT/HCPCS: 36416; 45380; 82962; 88305; 94640; J2704; J3490; J7030; J7613

== ENCOUNTER → 2023-11-01 09:17 | Outpatient (BNVA) | payer MEDICAID, SELFPAY | PROVIDERS: PCP Internal Medicine; Visit Provider Surgery | DX: Z09 Encounter for follow-up examination after completed treatment for conditions other than malignant neoplasm (principal); K92.1 Melena; K62.89 Other specified diseases of anus and rectum | CPT/HCPCS: 99214 ==

== ENCOUNTER 2023-11-29 10:59 | Oncology outpatient (recurring) (ONCR) | payer MEDICAID, SELFPAY ==
[2023-11-29 12:56] LABS: Basophils % 0.4 %; Eosinophils # 0.1 10^3/uL (0.0-0.8); Eosinophils % 0.7 %; Hematocrit 42.3 % (37-53); Lymphocytes # 0.9 10^3/uL (0.8-4.8); Lymphocytes % 12.3 %; Mean Corpuscular HGB Conc 28.8 g/dL (30-55); Mean Corpuscular Hemoglobin 24.4 pg (27-33); Mean Corpuscular Volume 84.8 fl (82-101); Mean Platelet Volume 10.1 fL (7.4-10.4); Monocytes # 0.4 10^3/uL (0.2-0.9); Monocytes % 6.3 %; Neutrophils # 5.57 10^3/uL (1.8-7.7); Nucleated Red Blood Cells % 0 %; Platelet Count 243 10^3/cmm (157-399); Red Blood Count 4.99 10^6/uL (3.85-5.65); Red Cell Distribution Width 16.7 % (12.1-15.1); White Blood Count 6.97 10^3/uL (3.29-11.43)
[2023-11-29 13:36] LABS: Folate Level 14.3 ng/mL (4.5-32.2)
[2023-11-29 13:38] LABS: Hepatitis A Antibody IgM Non-Reactive (Nonreactive); Hepatitis B Core AB, Total Non-Reactive (Nonreactive); Hepatitis B Surface AB < 3.5 (11.5-1000); Hepatitis B Surface Antigen Non-Reactive (Nonreactive); Hepatitis C Virus Antibody Non-Reactive (Nonreactive)
[2023-11-29 14:00] LABS: Carcinoembryonic Antigen 19.1 ng/mL (0.0-4.7)
[2023-11-29 14:11] LABS: Alanine Aminotransferase 19 U/L (0-41); Albumin Level 3.7 g/dL (3.5-5.2); Alkaline Phosphatase 198 U/L (40-130); Anion Gap 16.9 (5-19); Aspartate Amino Transferase 13 U/L (0-40); Blood Urea Nitrogen 19 mg/dL (6-20); Calcium 9.4 mg/dL (8.5-10.5); Carbon Dioxide 28 mmol/L (22-29); Chloride 95 mmol/L (98-107); Creatinine Clr Calc Pharmacy 110.0208; Glomerular Filtration Rate 78.8 mL/min (90-130); Glucose 292 mg/dL (65-115); Osmolality Calculated 293 mOsm/kg (285-295); Potassium 4.9 mmol/L (3.5-5.1); Sodium 135 mmol/L (136-145); Total Protein 7.7 g/dL (6.6-8.7)
[2023-12-04 09:15] LABS: Methylmalonic Acid 787 nmol/L (87-318)
== END 2023-12-07 23:59 | disposition home or self-care (01) ==
PROVIDERS: PCP Internal Medicine; Visit Provider Internal Medicine
DX: D12.8 Benign neoplasm of rectum (principal); K92.1 Melena; Z80.9 Family history of malignant neoplasm, unspecified
CPT/HCPCS: 36415; 80053; 82378; 82746; 83921; 85025; 86705; 86706; 86709; 86803; 87340; 99203

== ENCOUNTER 2023-12-18 10:04 | Day surgery (SDC) | payer MEDICAID, SELFPAY ==
--- NOTE | 2023-12-18 10:12 | XRR_ITS ---
PROCEDURE INFORMATION: Exam: XR Chest Exam date and time: 12/18/2023 12:03 PM Age: 53 years old Clinical indication: Device placement; Other: Mediport placement; Prior surgery; Surgery date: Post-operative (0-2 days); Additional info: Postop mediport placement TECHNIQUE: Imaging protocol: Radiologic exam of the chest. Views: 1 view. COMPARISON: CR XR chest 1V portable [id number] 11/23/2021 1:18 AM FINDINGS: Tubes, catheters and devices: Patient has undergone placement of a left-sided MediPort the a left subclavian approach whose tip terminates at the cavoatrial junction. Lungs: Lung volumes are decreased but stable. No infiltrates or overt CHF. Pleural spaces: Unremarkable. No pleural effusion. No pneumothorax. Heart/Mediastinum: Heart is mildly enlarged unchanged. Bones/joints: Unremarkable for age. XR/XR chest 1V portable [id number] IMPRESSION: Interval placement of left-sided MediPort terminating at the cavoatrial junction in satisfactory position.
--- NOTE | 2023-12-18 10:12 | SC_ITS ---
WS: [id number] C-ARM RADIOGRAPHS CHEST; 3 IMAGES HISTORY: Mediport placement COMPARISON: None available. Intraoperative imaging during LEFT subclavian Mediport placement. Tip is difficult to visualized but appears to be in the mid SVC. SC/C-arm FL for CVA [id number] IMPRESSION: Intraoperative imaging during Mediport placement.
[2023-12-18 10:23] VITALS: BP 137/71; PULSE 62; RESP 18; TEMP 36.2; O2SAT 90; BMI 63.4
--- NOTE | 2023-12-18 10:31 | PM.HP ---
Providers/Chief Complaint Primary Care Provider: Eddie Willoughby MD Chief Complaint: C20 History of Present Illness Arnol Guzman is a 53 year old male Review of Systems General: Reports: 10 or more systems reviewed and unremarkable except in HPI and below Medications/Allergies Home Medications Medication Instructions Recorded Confirmed Last Taken Type atorvastatin 80 mg tablet (Lipitor) 80 mg PO BEDTIME 07/14/19 12/17/23 12/17/23 History montelukast 10 mg tablet 10 mg PO BEDTIME 07/14/19 12/17/23 12/17/23 History (Singulair) oxygen-air delivery systems ##1 03/11/20 11/29/23 10/16/23 History aspirin 81 mg tablet,delayed 81 mg PO QAM 09/13/20 12/17/23 12/17/23 History release mometasone-formoterol HFA 200 2 puff inhalation BID 11/24/20 12/17/23 12/17/23 History mcg-5 mcg/actuation aerosol inhaler (Dulera) allopurinol 100 mg tablet 100 mg PO QAM 02/16/21 12/17/23 12/17/23 History tamsulosin 0.4 mg capsule 0.4 mg PO QPM 07/13/21 12/17/23 12/17/23 History ziprasidone HCl 40 mg capsule 40 mg PO QAM 07/13/21 12/17/23 12/17/23 History (Geodon) atenolol 100 mg tablet 100 mg PO QAM 11/03/21 12/17/23 12/17/23 History bumetanide 1 mg tablet 1 mg PO DAILY 11/04/21 12/17/23 12/17/23 History acetaminophen 325 mg capsule 650 mg PO Q4H PRN pain/temp 11/23/21 12/17/23 Unknown History (Tylenol) insulin aspart U-100 100 unit/mL See Rx Instructions .Route 11/25/21 12/17/23 12/17/23 Rx (3 mL) subcutaneous pen (Novolog .COMPLEX #15 mL FlexPen U-100 Insulin aspart) glipizide 5 mg tablet 5 mg PO DAILY 08/21/22 12/17/23 12/17/23 History insulin detemir U-100 100 unit/mL 18 unit SUBCUT QAM 08/21/22 12/17/2312/16/24 History (3 mL) subcutaneous pen (Levemir FlexTouch U-100 Insulin) diabetic shoes with 3 pairs of #1 ea 02/13/23 11/29/23 10/16/23 Rx inserts bisacodyl 5 mg tablet,delayed 10 mg PO Q12H PRN Constipation 10/15/23 12/17/23 12/17/23 History release (Dulcolax (bisacodyl)) cetirizine 10 mg tablet (Zyrtec) 10 mg PO DAILY 10/15/23 12/17/23 12/17/23 History polyethylene glycol 3350 17 gram 17 g PO DAILY PRN Constipation 10/15/23 12/17/23 12/17/23 History oral powder packet potassium chloride 40 mEq/15 mL 40 meq PO DAILY 10/15/23 12/17/23 12/17/23 History oral liquid sertraline 100 mg tablet 100 mg PO DAILY 10/15/23 12/17/23 12/17/23 History sitagliptin phosphate 50 1 tab PO BID 10/15/23 12/17/23 12/17/23 History mg-metformin 1,000 mg tablet (Janumet) Allergies Allergy/AdvReac Type Severity Reaction Status Date / Time aripiprazole [From Abilify] Allergy Unknown Verified 11/29/23 11:33 Calcium Channel Blocking Allergy ADR/ALGY-Pa Verified 11/29/23 11:33 Agent Dilt lpitations Penicillins Allergy ALGY-Hives Verified 11/29/23 11:33 diltiazem [From Cardizem] AdvReac ADR/ALGY-Pa Verified 11/29/23 11:33 lpitations PFSH Acute PFSH: Medical History History of CVA (cerebrovascular accident) Diabetes mellitus Chronic anemia Major depressive disorder, recurrent, moderate Morbid obesity Acute respiratory failure with hypoxia and hypercapnia Chest pain Hypertension CHF (congestive heart failure) Chest pain Chronic respiratory failure Anxiety Depression Transient cerebral ischemia Decubitus ulcer limited to breakdown of skin (stage 2) Anemia -has chronic iron deficiency anemia, baseline Hg is around 9-10 Pneumonia Hyperlipemia, mixed OPAL (obstructive sleep apnea) -in the process of getting CPAP set up Morbid (severe) obesity due to excess calories Gout CHF (congestive heart failure) -Echo (07/2019): EF=68%, normal diastolic function, no RWMA -on oral lasix -no acute exacerbation currently Hypertension -VSS; continue to monitor -continue oral antihypertensives Diabetes -NIDDM type II -A1c (11/2019): 8.2 -Accuchecks, ISS, hypoglycemia precautions -consistent carb diet -anticipate hyperglycemia with steroid use Surgical History History of umbilical hernia repair History of tonsillectomy History of hernia repair History of adenoidectomy Family History Mother Hypertension CAD (coronary artery disease) Stroke Social History Smoking and tobacco/nicotine status: unknown if used tobacco/nicotine Second hand smoke exposure: Yes Alcohol intake: never Substance/Drug Use: never Adopted: No Caregiver/support person: No Lives independently: Yes Household members: family and friend(s) Housing: Manufactured/Mobile home Marital status: Single Number of children: 0 Number of grandchildren: 0 Highest education level completed: 8th Grade service: No Current occupational status: disabled Pets and animals: No Leisure activites: other Leisure activities details: play card games Sexually active: No Do you think of yourself as: Straight/Heterosexual Current gender identity: Male Yolanda/Confucianism: Other Special yolanda needs: No Agree to transfusion: Yes Vitals/I&O/Wt Last Vital Signs Temp 97.2 F L 12/18/23 10:23 Pulse 62 12/18/23 10:23 Resp 18 12/18/23 10:23 BP 137/71 12/18/23 10:23 Pulse Ox 90 12/18/23 10:23 O2 Del Method Room Air 12/18/23 10:23 Weight last 48 hrs Weight 347 lb A&P Assessment and plan (1) Rectal mass: Plan Mediport placement The risks and benefits of the procedure, including but not limited to, bleeding, infection, infection requiring Mediport removal antibiotic therapy and repeat surgery, damage to surrounding structures, scar, numbness, pain, pneumothorax requiring thoracostomy tube, were explained to the patient. He/She is understanding of the risks and wishes to proceed. Attestations Medical Necessity Statement*: Home Coding Level of Care Code Acute Code for Chg Fwd Diagnoses Rectal mass K62.89
[2023-12-18] MEDS: sodium chloride 0.9% 1,000 ML 30 ML IV (10:41)
[2023-12-18] MEDS: vancomycin 1,500 MG/300 ML PIGGYBACK 200 MG IV (10:41)
[2023-12-18] MEDS: heparin 5,000 unit/mL INJ 1 mL 5000 UNIT SUBCUT (10:41)
--- NOTE | 2023-12-18 10:48 | ANES.PREANE2 ---
Pre-Anesthetic Assessment Height/Weight: Height 1.57 m Weight 157.397 kg Temp Pulse Resp BP Pulse Ox O2 Del Method 97.2 F L 62 18 137/71 90 Room Air 12/18/23 10:23 12/18/23 10:23 12/18/23 10:23 12/18/23 10:23 12/18/23 10:23 12/18/23 10:23 Preop Diagnosis: Rectal cancer Operation Date: 12/18/23 11:10 Proposed Procedures p Portacath Placement [id number], C20(Not Applicable) - Eugene Pisano DO Familial anesthetic complications: none Was Beta Deepali taken within 24 hours: Yes Was Clonidine taken within 24 hours: N/A Social No alcohol and No tobacco Exam alert, oriented x 3, clear to auscultation bilaterally and regular rate & rhythm Airway Submandibular: within normal limits Cervical ROM: within normal limits Mallampati: Class II Dentition: false Pulmonary Asthma and Sleep Apnea CV/HEM Anemia, Congestive Heart Failure and Hypertension EF 59% '22 Chronic Renal Insufficiency GI Rectal CA Metabolic Diabetes Mellitus and Morbid Obesity Neuropsych Anxiety, Cerebrovascular Accident and Depression Anesthetic Plan ASA status: 3 Anesthesia: MAC Medications/Allergies Home Medications Medication Instructions Recorded Confirmed Last Taken Type atorvastatin 80 mg tablet (Lipitor) 80 mg PO BEDTIME 07/14/19 12/17/23 12/17/23 History montelukast 10 mg tablet 10 mg PO BEDTIME 07/14/19 12/17/23 12/17/23 History (Singulair) oxygen-air delivery systems ##1 03/11/20 11/29/23 10/16/23 History aspirin 81 mg tablet,delayed 81 mg PO QAM 09/13/20 12/17/23 12/17/23 History release mometasone-formoterol HFA 200 2 puff inhalation BID 11/24/20 12/17/23 12/17/23 History mcg-5 mcg/actuation aerosol inhaler (Dulera) allopurinol 100 mg tablet 100 mg PO QAM 02/16/21 12/17/23 12/17/23 History tamsulosin 0.4 mg capsule 0.4 mg PO QPM 07/13/21 12/17/23 12/17/23 History ziprasidone HCl 40 mg capsule 40 mg PO QAM 07/13/21 12/17/23 12/17/23 History (Geodon) atenolol 100 mg tablet 100 mg PO QAM 11/03/21 12/17/23 12/17/23 History bumetanide 1 mg tablet 1 mg PO DAILY 11/04/21 12/17/23 12/17/23 History acetaminophen 325 mg capsule 650 mg PO Q4H PRN pain/temp 11/23/21 12/17/23 Unknown History (Tylenol) insulin aspart U-100 100 unit/mL See Rx Instructions .Route 11/25/21 12/17/23 12/17/23 Rx (3 mL) subcutaneous pen (Novolog .COMPLEX #15 mL FlexPen U-100 Insulin aspart) glipizide 5 mg tablet 5 mg PO DAILY 08/21/22 12/17/23 12/17/23 History insulin detemir U-100 100 unit/mL 18 unit SUBCUT QAM 08/21/22 12/17/23 12/17/23 History (3 mL) subcutaneous pen (Levemir FlexTouch U-100 Insulin) diabetic shoes with 3 pairs of #1 ea 02/13/23 11/29/23 10/16/23 Rx inserts bisacodyl 5 mg tablet,delayed 10 mg PO Q12H PRN Constipation 10/15/23 12/17/23 12/17/23 History release (Dulcolax (bisacodyl)) cetirizine 10 mg tablet (Zyrtec) 10 mg PO DAILY 10/15/23 12/17/23 12/17/23 History polyethylene glycol 3350 17 gram 17 g PO DAILY PRN Constipation 10/15/23 12/17/23 12/17/23 History oral powder packet potassium chloride 40 mEq/15 mL 40 meq PO DAILY 10/15/23 12/17/23 12/17/23 History oral liquid sertraline 100 mg tablet 100 mg PO DAILY 10/15/23 12/17/23 12/17/23 History sitagliptin phosphate 50 1 tab PO BID 10/15/23 12/17/23 12/17/23 History mg-metformin 1,000 mg tablet (Janumet) Allergies Allergy/AdvReac Type Severity Reaction Status Date / Time aripiprazole [From [facility]] Allergy Unknown Verified 11/29/23 11:33 Calcium Channel Blocking Allergy ADR/ALGY-Pa Verified 11/29/23 11:33 Agent Dilt lpitations Penicillins Allergy ALGY-Hives Verified 11/29/23 11:33 diltiazem [From Cardizem] AdvReac ADR/ALGY-Pa Verified 11/29/23 11:33 lpitations [facility] Anesthesia Medical History History of CVA (cerebrovascular accident) Diabetes mellitus Chronic anemia Major depressive disorder, recurrent, moderate Morbid obesity Acute respiratory failure with hypoxia and hypercapnia Chest pain Hypertension CHF (congestive heart failure) Chest pain Chronic respiratory failure Anxiety Depression Transient cerebral ischemia Decubitus ulcer limited to breakdown of skin (stage 2) Anemia -has chronic iron deficiency anemia, baseline Hg is around 9-10 Pneumonia Hyperlipemia, mixed OPAL (obstructive sleep apnea) -in the process of getting CPAP set up Morbid (severe) obesity due to excess calories Gout CHF (congestive heart failure) -Echo (07/2019): EF=68%, normal diastolic function, no RWMA -on oral lasix -no acute exacerbation currently Hypertension -VSS; continue to monitor -continue oral antihypertensives Diabetes -NIDDM type II -A1c (11/2019): 8.2 -Accuchecks, ISS, hypoglycemia precautions -consistent carb diet -anticipate hyperglycemia with steroid use Surgical History History of umbilical hernia repair History of tonsillectomy History of hernia repair History of adenoidectomy Family History Mother Hypertension CAD (coronary artery disease) Stroke Social History Smoking and tobacco/nicotine status: unknown if used tobacco/nicotine Second hand smoke exposure: Yes Alcohol intake: never Substance/Drug Use: never Adopted: No Caregiver/support person: No Lives independently: Yes Household members: family and friend(s) Housing: Manufactured/Mobile home Marital status: Single Number of children: 0 Number of grandchildren: 0 Highest education level completed: 8th Grade service: No Current occupational status: disabled Pets and animals: No Leisure activites: other Leisure activities details: play card games Sexually active: No Do you think of yourself as: Straight/Heterosexual Current gender identity: Male Yolanda/Rastafari: Other Special yolanda needs: No Agree to transfusion: Yes Data Anesthesia Cardiac Studies: Echocardiogram 07/13/21 Echocardiogram Ultrasound 07/14/19 Cardiac Event Monitor 03/23/20
[2023-12-18 10:50] LABS: Glucose Point of Care 296 mg/dL (70-110)
[2023-12-18] MEDS: lidocaine-epi 2% PF 1:200,000 20 mL SDV XX (11:32)
[2023-12-18] MEDS: heparin, porcine 1,000 unit/mL INJ 10 mL 10000 UNIT INJECTION (11:42)
--- NOTE | 2023-12-18 11:49 | P.OP_ITS ---
Operative Report Date of procedure: December 18, 2023 Surgeon: Eugene Pisano DO Brief History: This is a very pleasant 53-year-old male who was diagnosed with rectal cancer. Oncology requested Mediport placement for chemotherapy access. The risk and benefits were explained and documented. Procedure: Pre-op diagnosis: Rectal cancer Post-op diagnosis: same Procedure done: Mediport placement Intraoperative interpretation of fluoroscopy Implants: PowerPort Specimens removed/disposition: None Surgeon: Eugene Pisano DO Anesthesia: MAC and Local Estimated blood loss (mL): 5 Complications: None apparent Procedure: The patient was taken to the operating room and placed supine on the operating room table. All bony prominences were padded. She was given IV sedation and mo nitored throughout the case by the anesthesia personnel. SCDs were placed and turned on. The arms were tucked to the side. Patient received Ancef 2 g preoperatively IV. The bilateral chest wall was prepped and draped in usual sterile fashion using chlorhexidine base prep. Sterile drapes were applied. We did procedure pause prior to beginning. An 18 gauge needle was placed in the left subclavian vein. Dark, nonpulsatile blood was aspirated. A guidewire was placed through the needle centrally toward the atrial/vena caval junction. Fluoroscopy visualized good placement. The needle was removed and the guidewire was clipped to the drape with a hemostat. Further local anesthetic was infiltrated in the soft tissues of the left chest wall and a #15 blade was used to make a horizontal skin incision. A subcutaneous Mediport pocket was created using Bovie cautery, dissecting down through the skin and subcutaneous tissues. Meticulous hemostasis was achieved. The Mediport was sutured in position using 3-0 vicryl suture x2 stitches. A #15 blade was used to make a small skin padmini around the guidewire insertion area. The Mediport tubing was tunneled through the subcutaneous tissues up to th e needle insertion location. A dilator with a peel-away sheath was placed over the guidewire and placed centrally. After measuring the Mediport tubing was cut to length so that the tip would end at the atrial/vena caval junction. The inner cannula and the guidewire were removed, leaving the dilator sheath in place. The Mediport was flushed. The tip of the catheter was inserted through the peel-away sheath and the peel-away sheath removed in the standard fashion. The Mediport was accessed with a straight Yoon needle and dark, nonpulsatile blood was aspirated and flushed using heparinized saline to hep-lock the Mediport. Final fluoroscopy visualization showed no kink in the catheter and the tip of the Mediport tubing near the atrial/vena caval junction. There is no obvious pneumothorax. Both skin incisions were thoroughly irrigated and suctioned dry. Meticulous hemostasis noted. The dermis was approximated with 3-0 Vicryl in an interrupted fashion. Skin was closed with Dermabond. Patient was awakened from anesthesia and transferred via her cart to the recovery room in stable condition. All needle, sponge, and instrument counts were correct per the operating personnel x2 counts.
[2023-12-18 11:56] VITALS: BP 138/77; PULSE 67; RESP 14; TEMP 36.9; O2SAT 99
[2023-12-18 12:01] VITALS: BP 136/77; PULSE 62; RESP 16; O2SAT 99
[2023-12-18 12:06] VITALS: BP 128/56; PULSE 68; RESP 17; O2SAT 93
[2023-12-18 12:11] VITALS: BP 123/67; PULSE 68; RESP 16; TEMP 36.6; O2SAT 94
[2023-12-18 12:30] VITALS: BP 112/67; PULSE 67; RESP 17; TEMP 36.5; O2SAT 93
--- NOTE | 2023-12-18 14:13 | ANE.PACU2 ---
Inpatient post-anesthesia follow up: Airway intact: Yes Vital signs: Temperature 97.8 F Pulse Rate 68 Respiratory Rate 16 Blood Pressure 123/67 Pulse Oximetry 94 Oxygen Delivery Me thod Room Air Oxygen Flow Rate 6 Fraction of Inspir ed Oxygen Hydration adequate: Yes Nausea and vomiting: No Pain level: 2 Mental status: Baseline
== END 2023-12-18 13:45 | disposition home or self-care (01) ==
PROVIDERS: PCP Internal Medicine; Visit Provider Surgery
PROC: (CPT 36561; principal; 2023-12-18 11:10)
DX: C20 Malignant neoplasm of rectum (principal); Z79.82 Long term (current) use of aspirin; Z79.4 Long term (current) use of insulin; Z79.84 Long term (current) use of oral hypoglycemic drugs; Z86.73 Personal history of transient ischemic attack (TIA), and cerebral infarction without residual deficits; E66.01 Morbid (severe) obesity due to excess calories; Z68.44 Body mass index [BMI] 60.0-69.9, adult; I10 Essential (primary) hypertension; E78.2 Mixed hyperlipidemia; E11.9 Type 2 diabetes mellitus without complications; G47.33 Obstructive sleep apnea (adult) (pediatric)
CPT/HCPCS: 36561; 36416; 71045; 77001; 82962; C1788; J1644; J2704; J3010; J3370; J7030

== ENCOUNTER → 2023-12-31 09:28 | Outpatient (BNVA) | payer MEDICAID, SELFPAY | PROVIDERS: PCP Internal Medicine; Visit Provider Surgery | DX: Z95.828 Presence of other vascular implants and grafts (principal); C20 Malignant neoplasm of rectum | CPT/HCPCS: 99214 ==

== ENCOUNTER 2024-02-05 08:55 | Oncology outpatient (recurring) (ONCR) | payer MEDICAID, SELFPAY ==
[2024-02-05 09:24] LABS: Basophils % 0.3 %; Eosinophils # 0.1 10^3/uL (0.0-0.8); Hematocrit 33.7 % (37-53); Lymphocytes # 0.5 10^3/uL (0.8-4.8); Lymphocytes % 7.4 %; Mean Corpuscular HGB Conc 26.7 g/dL (30-55); Mean Corpuscular Hemoglobin 22.6 pg (27-33); Mean Corpuscular Volume 84.5 fl (82-101); Mean Platelet Volume 9.9 fL (7.4-10.4); Monocytes # 0.3 10^3/uL (0.2-0.9); Monocytes % 5.1 %; Neutrophils # 5.23 10^3/uL (1.8-7.7); Nucleated Red Blood Cells % 0 %; Platelet Count 209 10^3/cmm (157-399); Red Blood Count 3.99 10^6/uL (3.85-5.65); Red Cell Distribution Width 20.3 % (12.1-15.1); White Blood Count 6.08 10^3/uL (3.29-11.43)
[2024-02-05 09:52] LABS: Carcinoembryonic Antigen 19.3 ng/mL (0.0-4.7)
[2024-02-05 10:03] LABS: Alanine Aminotransferase 19 U/L (0-41); Albumin Level 3.4 g/dL (3.5-5.2); Alkaline Phosphatase 204 U/L (40-130); Anion Gap 15.6 (5-19); Aspartate Amino Transferase 13 U/L (0-40); Blood Urea Nitrogen 22 mg/dL (6-20); Calcium 8.5 mg/dL (8.5-10.5); Carbon Dioxide 34 mmol/L (22-29); Chloride 93 mmol/L (98-107); Globulin 3.5 g/dL (1.3-4.6); Glomerular Filtration Rate 78.8 mL/min (90-130); Glucose 405 mg/dL (65-115); Osmolality Calculated 306 mOsm/kg (285-295); Potassium 4.6 mmol/L (3.5-5.1); Sodium 138 mmol/L (136-145); Total Bilirubin 1.2 mg/dL (0.15-1.2); Total Protein 6.9 g/dL (6.6-8.7)
[2024-02-05 11:29] LABS: Iron 36 ug/dL (59-158); Percent Saturation 12.8 % (20-50); Total Iron Binding Capacity 280 mcg/dl; Unsaturated Iron Binding 244 ug/dL (112-347)
--- NOTE | 2024-02-05 15:36 | N.ONRAD NP_ITS ---
Radiation Oncology New Patient Visit Patient: Arnol Guzman MR#: [id number] : 1970 Age: 53 Sex: Male Dictated by: Dr. Soledad Stoll Date of Service: 02/05/2024 Referring Physician(s) : MD Jadon Diagnosis: Rectal cancer Radiotherapy to date: Summary > No prior radiation therapy. Chief Complaint / History of Present Illness: Patient is a 53-year-old gentleman who reports that he has had bleeding pelvic pain as well as diarrhea for quite some time. He becomes very emotional when talking about his symptoms. He is accompanied today by his sister who supports him appropriately. It is unclear how long the symptoms have been present. He has been recently diagnosed with an adenocarcinoma of the rectum. Based on his MRI he has been found to have a large polypoid mass spanning the entire rectum measuring 8.7 cm in length. It appears to have extramural vascular invasion with focal dilatation of the perirectal vein. The anal sphincter does not appear to be involved. Based on the MRI it appears to be a stage T3. The MRI did appear to show as several distinct lymph nodes. He is here today to discuss combined modality therapy with the plan to discuss whether we would start with neoadjuvant or proceed with a short course of radiation along with chemotherapy followed by chemotherapy subsequently. Current Medications: acetaminophen (Tylenol) 650 mg PO Q4H PRN, allopurinol 100 mg PO QAM, aspirin 81 mg PO QAM, atenolol 100 mg PO QAM, atorvastatin (Lipitor) 80 mg PO BEDTIME, bisacodyl (Dulcolax (bisacodyl)) 10 mg PO Q12H PRN, bumetanide 1 mg PO DAILY, cetirizine (Zyrtec) 10 mg PO DAILY [diabetic shoes with 3 pairs of inserts As directed by BOAZ&O], glipizide 5 mg PO DAILY, hydrocodone-acetaminophen 7.5-325 mg 1 tab PO Q6H PRN, insulin aspart U-100 (Novolog FlexPen U-100 Insulin aspart) Inject subcu, 3 times daily, before meals, based on sliding scale, insulin detemir U-100 (Levemir FlexTouch U-100 Insulin) 18 units SUBCUT QAM, mometasone-formoterol 200-5 mcg/actuation (Dulera) 2 puffs inhalation BID, montelukast (Singulair) 10 mg PO BEDTIME, oxygen-air delivery systems As directed, polyethylene glycol 3350 17 grams PO DAILY PRN, potassium chloride 40 mEq PO DAILY, sertraline 100 mg PO DAILY, sitagliptin phos-metformin 50-1,000 mg (Janumet) 1 tab PO BID, tamsulosin 0.4 mg PO QPM, ziprasidone HCl (Geodon) 40 mg PO QAM Allergies: aripiprazole [From Abilify] Allergy (Verified 02/05/24 10:56) Unknown Calcium Channel Blocking Agent Dilt Allergy (Verified 02/05/24 10:56) ADR/ALGY-Palpitations Penicillins Allergy (Verified 02/05/24 10:56) ALGY-Hives diltiazem [From Cardizem] Adverse Reaction (Verified 02/05/24 10:56) ADR/ALGY-Palpitations Medical History: No previous radiation therapy. Rectal cancer, Port-A-Cath in place, History of CVA (cerebrovascular accident), Diabetes mellitus, Chronic anemia, Major depressive disorder, recurrent, moderate, Morbid obesity, Acute respiratory failure with hypoxia and hypercapnia, Chest pain, Hypertension, CHF (congestive heart failure), Chest pain, Chronic respiratory failure, Anxiety, Depression, Transient cerebral ischemia, Decubitus ulcer limited to breakdown of skin (stage 2), Anemia-has chronic iron deficiency anemia, baseline Hg is around 9-10, Pneumonia, Hyperlipemia, mixed, OPAL (obstructive sleep apnea) -in the process of getting CPAP set up, Morbid (severe) obesity due to excess calories, Gout, CHF (congestive heart failure) -Echo (07/2019): EF=68%, normal diastolic function, no RWMA -on oral lasix -no acute exacerbation currently Hypertension -VSS; continue to monitor -continue oral antihypertensives Diabetes -NIDDM type II -A1c (11/2019): 8.2 -Accuchecks, ISS, hypoglycemia precautions -consistent carb diet -anticipate hyperglycemia with steroid use Surgical History: History of umbilical hernia repair, History of tonsillectomy, History of adenoidectomy Family History: Mother Hypertension CAD (coronary artery disease) Stroke Social History: Smoking and tobacco/nicotine status: never used tobacco/nicotine Second hand smoke exposure: Yes Alcohol intake: never Substance/Drug Use: never Adopted: No Caregiver/support person: No Lives independently: no Household members: family and friend(s) Housing: Manufactured/Mobile home Marital status: Single Number of children: 0 Number of grandchildren: 0 Highest education level completed: 8th Grade service: No Current occupational status: disabled Pets and animals: No Leisure activites: other Leisure activities details: play card games Sexually active: No Do you think of yourself as: Straight/Heterosexual Current gender identity: Male Yolanda/Hindu: Other Special yolanda needs: No Agree to transfusion: Yes Current Complaints / Review of Systems: . Vital Signs: Performed on 02/05/2024 11:33 AM BMI - 72.935 kg/m2 (high), Height - 61 in, Weight - 386 lbs, Temperature - 98.2 f, Pulse - 82 /min, Respiration - 17 /min, O2 Sat - 97 %, Pain - 0, Fatigue - 0 and BP - 188/ 82 mm(hg)(high/). Physical Exam: General: Patient is in no apparent distress. He is quite emotional and will cry intermittently during the course of her interview. He is accompanied by his sister. HEENT: Pupils are equal round reactive to light, sclera injected. Pulmonary: Respiratory rate is regular nonlabored Cardiovascular: Regular rate and rhythm Abdomen: Patient is morbidly obese at 5 foot 1 and nearly 400 pounds Neurological: Alert and orient x 3. He is not able to walk and is in a wheelchair. Speech is intact. Performance Status: 70 Pathology: Lab: Imaging: See HPI Impression: Adenocarcinoma of the rectum with a fairly extensive lesion extending near the length of the entire rectum along with adenopathy Plan: At this point with the size of the mass as well as the size of the patient I have recommended that we proceed with the neoadjuvant chemotherapy which will hopefully shrink the size of the mass and perhaps allow the patient to lose a little bit of weight as well. Both of these things would be an advantage in terms of treating the patient subsequently in terms of the volume that would need to be treated. I feel it would not be of benefit to treat him with a hypofractionated course of only 5 [address] I discussed with Dr[address] Diop and we were in agreement. I reviewed this with the patient and his sister as well. He verbalized understanding of this and I told him at this point he needed to just focus on getting through his first part of his treatment with his chemotherapy and that I would see him subsequently to start his radiation. Signed by: 02/05/2024 3:35:03 PM <<Signature on File>> Time spent with patient: 30 CPT Code: CPT Code:
== END 2024-02-06 23:59 | disposition home or self-care (01) ==
PROVIDERS: Internal Medicine Medical Oncology; PCP Internal Medicine; Visit Provider Internal Medicine
DX: C20 Malignant neoplasm of rectum (principal); Z95.828 Presence of other vascular implants and grafts; D50.9 Iron deficiency anemia, unspecified
CPT/HCPCS: 36591; 80053; 82378; 83540; 83550; 85025; 99205

== ENCOUNTER 2024-02-21 15:13 | Inpatient (IN) | payer MEDICAID, SELFPAY ==
[2024-02-21] VITALS (13 sets, daily range): BP systolic 105–154; BP diastolic 58–83; PULSE 60–78; RESP 14–19; TEMP 36.8; O2SAT 86–96; BMI 58.0
--- NOTE | 2024-02-21 15:06 | PM.HP ---
Providers/Chief Complaint Admitting Physician: Lester Araujo MD Primary Care Provider: Eddie Willoughby MD Chief Complaint: Hyper-Colema TEDDY Rectal Cancer History of Present Illness This is a 53-year-old man with newly diagnosed rectal cancer, by clinical evaluation stage T3c, N2a.He has multiple medical illnesses including hypertension, hyperlipidemia, type 2 diabetes, chronic kidney disease, congestive heart failure, obesity, obstructive sleep apnea, and depression. He suffered a stroke in 2019, and he has been confined to a fci. Patient currently undergoing FOLFOX treatment for rectal cancer, got his chemotherapy became nauseous has experienced multiple episode of nausea vomiting, became dehydrated in the oncology clinic he was diagnosed with severe dehydration, required IV fluids for hyperkalemia along hyperkalemia treatment. He has been transferred to ICU as a direct admit by Dr. Diop. Patient is from [facility] stating that since his chemotherapy 2 days ago he has been vomiting, in total he has at 10 episodes of nausea vomiting, no active chest pain shortness of breath or fever, patient is stating that he is wheelchair-bound, since initiation of chemo he has not been able to walk on his feet, he eats diabetic diet. Able to answer my questions appropriately , Uses BiPAP at nighttime and 3 L/day Review of Systems Const: Denies: fever(s) Eyes: Denies: change in vision ENMT: Denies: throat pain Card: Denies: chest pain Resp: Denies: dyspnea GI: Reports: abdominal pain, nausea and vomiting : Denies: flank pain Musc: Denies: neck pain Skin/Breast: Reports: rash Neuro: Denies: headache(s) Psych: Reports: anxiety Endo: Denies: polyuria Medications/Allergies Home Medications Medication Instructions Recorded Confirmed Last Taken Type atorvastatin 80 mg tablet (Lipitor) 80 mg PO BEDTIME 07/14/19 02/19/24 12/17/23 History montelukast 10 mg tablet 10 mg PO BEDTIME 07/14/19 02/19/24 12/18/23 History (Singulair) oxygen-air delivery systems ##1 03/11/20 02/19/24 10/16/23 History aspirin 81 mg tablet,delayed 81 mg PO QAM 09/13/20 02/19/24 12/17/23 History release mometasone-formoterol HFA 200 2 puff inhalation BID 11/24/20 02/19/24 12/18/23 History mcg-5 mcg/actuation aerosol inhaler (Dulera) allopurinol 100 mg tablet 100 mg PO QAM 02/16/21 02/19/24 12/18/23 History tamsulosin 0.4 mg capsule 0.4 mg PO QPM 07/13/21 02/19/24 12/17/23 History ziprasidone HCl 40 mg capsule 40 mg PO QAM 07/13/21 02/19/24 12/18/23 History (Geodon) atenolol 100 mg tablet 100 mg PO QAM 11/03/21 02/19/24 12/18/23 History bumetanide 1 mg tablet 1 mg PO DAILY 11/04/21 02/19/24 12/18/23 History acetaminophen 325 mg capsule 650 mg PO Q4H PRN pain/temp 11/23/21 02/19/24 Unknown History (Tylenol) insulin aspart U-100 100 unit/mL See Rx Instructions .Route 11/25/21 02/19/24 12/17/23 Rx (3 mL) subcutaneous pen (Novolog .COMPLEX #15 mL FlexPen U-100 Insulin aspart) glipizide 5 mg tablet 5 mg PO DAILY 08/21/22 02/19/24 12/17/23 History insulin detemir U-100 100 unit/mL 18 unit SUBCUT QAM 08/21/22 02/19/24 12/17/23 History (3 mL) subcutaneous pen (Levemir FlexTouch U-100 Insulin) diabetic shoes with 3 pairs of #1 ea 02/13/23 02/19/24 10/16/23 Rx inserts bisacodyl 5 mg tablet,delayed 10 mg PO Q12H PRN Constipation 10/15/23 02/19/24 12/17/23 History release (Dulcolax (bisacodyl)) cetirizine 10 mg tablet (Zyrtec) 10 mg PO DAILY 10/15/23 02/19/24 12/18/23 History polyethylene glycol 3350 17 gram 17 g PO DAILY PRN Constipation 10/15/23 02/19/24 12/17/23 History oral powder packet potassium chloride 40 mEq/15 mL 40 meq PO DAILY 10/15/23 02/19/24 12/18/23 History oral liquid sertraline 100 mg tablet 100 mg PO DAILY 10/15/23 02/19/24 12/18/23 History sitagliptin phosphate 50 1 tab PO BID 10/15/23 02/19/24 12/17/23 History mg-metformin 1,000 mg tablet (Janumet) hydrocodone 7.5 mg-acetaminophen 1 tab PO Q6H PRN pain #10 tabs 12/18/23 02/19/24 Unknown Rx 325 mg tablet Allergies Allergy/AdvReac Type Severity Reaction Status Date / Time aripiprazole [From Abilify] Allergy Unknown Verified 02/19/24 08:32 Calcium Channel Blocking Allergy ADR/ALGY-Pa Verified 02/19/24 08:32 Agent Dilt lpitations Penicillins Allergy ALGY-Hives Verified 02/19/24 08:32 diltiazem [From Cardizem] AdvReac ADR/ALGY-Pa Verified 02/19/24 08:32 lpitations PFSH Acute PFSH: Medical History (Updated 02/21/24 @ 15:33 by Lester Araujo MD) Spondylisthesis Cerebral infarction, watershed distribution, unilateral, acute Rhabdomyolysis Rectal cancer Port-A-Cath in place History of CVA (cerebrovascular accident) Diabetes mellitus Chronic anemia Major depressive disorder, recurrent, moderate Morbid obesity Acute respiratory failure with hypoxia and hypercapnia Chest pain Hypertension CHF (congestive heart failure) Chest pain Chronic respiratory failure Anxiety Depression Transient cerebral ischemia Decubitus ulcer limited to breakdown of skin (stage 2) Anemia -has chronic iron deficiency anemia, baseline Hg is around 9-10 Pneumonia Hyperlipemia, mixed OPAL (obstructive sleep apnea) -in the process of getting CPAP set up Morbid (severe) obesity due to excess calories Gout CHF (congestive heart failure) -Echo (07/2019): EF=68%, normal diastolic function, no RWMA -on oral lasix -no acute exacerbation currently Hypertension -VSS; continue to monitor -continue oral antihypertensives Diabetes -NIDDM type II -A1c (11/2019): 8.2 -Accuchecks, ISS, hypoglycemia precautions -consistent carb diet -anticipate hyperglycemia with steroid use Surgical History History of umbilical hernia repair History of tonsillectomy History of hernia repair History of adenoidectomy Family History Mother Hypertension CAD (coronary artery disease) Stroke Social History Smoking and tobacco/nicotine status: never used tobacco/nicotine Second hand smoke exposure: Yes Alcohol intake: never Substance/Drug Use: never Adopted: No Caregiver/support person: No Lives independently: Yes Household members: family and friend(s) Housing: Manufactured/Mobile home Marital status: Single Number of children: 0 Number of grandchildren: 0 Highest education level completed: 8th Grade service: No Current occupational status: disabled Pets and animals: No Leisure activites: other Leisure activities details: play card games Sexually active: No Do you think of yourself as: Straight/Heterosexual Current gender identity: Male Yolanda/Buddhist: Other Special yolanda needs: No Agree to transfusion: Yes Physical Exam Narrative: Patient is morbidly obese Laying supine Active vomiting Clinically looks dehydrated Abdominal pannus Has nystatin powder Patient is wearing adult diaper Lower extremity nonpitting edema Distended tender abdomen S1, S2 Hemodynamically stable Currently on 3 L nasal cannula A&P Assessment and plan (1) Anxiety: (2) Port-A-Cath in place: (3) Morbid obesity: (4) Rectal mass: (5) Acute renal failure: (6) Obstructive sleep apnea: (7) Callus of foot: (8) Hyperkalemia: Plan Hyperkalemia Will give Kayexalate Get BMP stat Patient has received insulin and dextrose at the oncology clinic Will give calcium gluconate Request an EKG Hold potassium supplementation Dehydration related acute on chronic kidney disease Start IV fluids Hold diuretics Chronic opiate dependent Continue hydrocodone Nausea vomiting after chemotherapy Will request CT abdomen pelvis rule out obstruction Will request lactic acid, monitor for fever hold off on antibiotics for now Suspicion for sepsis is low Diabetic diet Reduce the dose of insulin Insulin sliding scale Patient has history of sleep apnea will use BiPAP at nighttime Will check a UA as well Rule out urinary retention Patient is stating that he is full code Sister is medical DPOA Rectal cancer currently going through chemo has a PICC line in place Attestations Medical Necessity Statement*: More than 2 midnights anticipated Diagnoses Anxiety F41.9 Port-A-Cath in place Z95.828 Morbid obesity E66.01 Rectal mass K62.89 Acute renal failure N17.9 Obstructive sleep apnea G47.33 Callus of foot L84 Hyperkalemia E87.5
--- NOTE | 2024-02-21 15:18 | PC.NURSE ---
arrived from Oncology transferred self to bed with assistance
--- NOTE | 2024-02-21 15:29 | CTR_ITS ---
PROCEDURE INFORMATION: Exam: CT Abdomen And Pelvis Without Contrast Exam date and time: 02/21/2024 5:54 PM Age: 53 years old Clinical indication: Nausea and vomiting; Additional info: N/v TECHNIQUE: Imaging protocol: Computed tomography of the abdomen and pelvis without contrast. Radiation optimization: All CT scans at this facility use at least one of these dose optimization techniques: automated exposure control; mA and/or kV adjustment per patient size (includes targeted exams where dose is matched to clinical indication); or iterative reconstruction. COMPARISON: CT abdomen pelvis w con* [id number] 05/07/2023 1:47 AM RADIATION DOSE METRICS: Total DLP (mGy-cm): 1401 FINDINGS: Heart: Cardiomegaly. Liver: Coarsened nodular hepatic contour likely reflecting cirrhosis. No masses. Gallbladder and biliary ducts: Normal. No calcified stones. No ductal dilation. Pancreas: Normal. No ductal dilation. Spleen: Splenomegaly measuring up to 17 cm. Adrenal glands: Normal. No mass. Kidneys and ureters: 1.2 cm nonobstructing calculus within the right kidney. No hydronephrosis. Unchanged 1 cm simple cysts within the left kidney. Stomach and bowel: Unremarkable. No obstruction. No mucosal thickening. Appendix: No evidence of appendicitis. Intraperitoneal space: Small volume ascites. Vasculature: Unremarkable. No abdominal aortic aneurysm. Lymph nodes: Unremarkable. No enlarged lymph nodes. Urinary bladder: Unremarkable as visualized. Reproductive: Unremarkable as visualized. Bones/joints: Moderate multilevel spondylosis. Soft tissues: Anasarca. CT/CT abdomen pelvis wo con [id number] IMPRESSION: 1. Limited evaluation due to artifact. 2. Cirrhotic liver with splenomegaly and small volume ascites. 3. 1.2 cm nonobstructing calculus within the right kidney. No hydronephrosis.
[2024-02-21] MEDS: heparin 5,000 unit/mL INJ 1 mL 5000 UNIT SUBCUT (15:33)
[2024-02-21] MEDS: sodium chloride 0.9% 1,000 ML 100 ML IV (15:48)
[2024-02-21] MEDS: calcium gluconate 0.1 gm/mL 10% SDV 10mL 1 GM IVP (15:56)
[2024-02-21] MEDS: sodium polystyrene sulfonate 15 gm/60 mL Btl PO (15:56)
--- NOTE | 2024-02-21 16:04 | ECG_ITS ---
[facility] Test Date: 2024-02-21 Pat Name: Arnol Guzman Department: Room: ICU10 Gender: Male Ordnance Technician: : 1970 Requested By: Lester Araujo Order Number: [id number] Bernardino MD: Wali Martinez M.D. Measurements Intervals [place] Rate: 65 P: 68 TN: 183 QRS: 89 QRSD: 97 T: 66 QT: 395 QTc: 412 Interpretive Statements SINUS RHYTHM WITH OCCASIONAL SUPRAVENTRICULAR PREMATURE COMPLEXES INCOMPLETE RIGHT BUNDLE BRANCH BLOCK [90+ ms QRS DURATION, TERMINAL R IN V1/V2, 40+ ms S IN I/aVL/V4/V5/V6] Compared to ECG 08/21/2022 11:36:47 Indeterminate axis no longer present Electronically Signed On 02-21-2024 16:07:40 CDT by Wali Martinez M.D. [id number]
[2024-02-21 16:25] LABS: Anion Gap 20.4 (5-19); Blood Urea Nitrogen 63 mg/dL (6-20); Calcium 8.6 mg/dL (8.5-10.5); Carbon Dioxide 30 mmol/L (22-29); Chloride 91 mmol/L (98-107); Glomerular Filtration Rate 33.5 mL/min (90-130); Glucose 294 mg/dL (65-115); Osmolality Calculated 309 mOsm/kg (285-295); Potassium 6.4 mmol/L (3.5-5.1); Sodium 135 mmol/L (136-145)
[2024-02-21 16:38] LABS: Estmated Average Glucose 212
[2024-02-21] MEDS: lidocaine 2% jelly 1 APPLIC/6 ML TUBE TOPICAL (16:59)
[2024-02-21 18:25] LABS: Glucose Point of Care 323 mg/dL (70-110)
[2024-02-21] MEDS: insulin lispro 100 unit/1 mL SUBCUT (18:30)
[2024-02-21] MEDS: tamsulosin 0.4 mg Capsule PO (18:31)
[2024-02-21] MEDS: nystatin powder 30 gm Btl 1 APPLIC TOPICAL (18:31)
[2024-02-21] MEDS: insulin regular-human 10 UNIT in SYRINGE 1 EACH IVP (18:59)
[2024-02-21] MEDS: sodium bicarbonate 8.4% 1 mEq/mL 50mL Syr 100 MEQ IVP (18:59)
[2024-02-21 19:44] LABS: Charge for UA Resulting for Rev
[2024-02-21 19:51] LABS: Bilirubin Urine Negative (Negative); Blood Urine Negative (Negative); Glucose Urine UA Negative (Normal); Ketones Urine Negative (Negative); Leukocyte Esterase Urine Negative (Negative); Nitrate Urine Negative (Negative); Protein Urine Negative (Negative); Specific Gravity, Urine 1.009 (1.005-1.030); Urine Appearance Clear (CLEAR); Urine Color Yellow (Yellow)
[2024-02-21 19:56] LABS: Bacteria Urine None Seen /hpf; Hyaline Casts Urine 22.73 /lpf; RBC Urine 0-2 /hpf (0-2); Squamous Epithelial Cell Urine 0-5 /hpf (0-5); WBC Urine 0-5 /hpf (0-5)
[2024-02-21 20:15] LABS: UA Slide Review UA Slide Review Perf
[2024-02-21] MEDS: budesonide 0.5 mg/2 mL Neb INHALATION (20:22)
[2024-02-21] MEDS: albuterol 2.5 mg/3 mL Neb INHALATION (20:22)
[2024-02-21] MEDS: albuterol 2.5 mg/3 mL Neb 10 MG INHALATION (20:22)
[2024-02-21 20:26] LABS: Anion Gap 15.6 (5-19); Blood Urea Nitrogen 63 mg/dL (6-20); Calcium 8.8 mg/dL (8.5-10.5); Carbon Dioxide 34 mmol/L (22-29); Chloride 94 mmol/L (98-107); Glomerular Filtration Rate 37.6 mL/min (90-130); Glucose 298 mg/dL (65-115); Osmolality Calculated 315 mOsm/kg (285-295); Potassium 5.6 mmol/L (3.5-5.1); Sodium 138 mmol/L (136-145)
[2024-02-21 21:03] LABS: Glucose Point of Care 245 mg/dL (70-110)
[2024-02-21] MEDS: montelukast sodium 10 mg Tablet PO (21:08)
[2024-02-21] MEDS: insulin glargine 100 units/1 mL 10 UNIT SUBCUT (21:08)
[2024-02-22] VITALS (36 sets, daily range): BP systolic 106–161; BP diastolic 54–85; PULSE 56–83; RESP 10–24; TEMP 36.3–36.9; O2SAT 88–100
[2024-02-22] MEDS: sodium chloride 0.9% 1,000 ML 100 ML IV (03:36)
[2024-02-22] MEDS: heparin 5,000 unit/mL INJ 1 mL 5000 UNIT SUBCUT ×2 (03:36→15:36)
[2024-02-22 04:38] LABS: Hematocrit 32.4 % (37-53); Lymphocytes # 0.3 10^3/uL (0.8-4.8); Lymphocytes % 6.8 %; Mean Corpuscular HGB Conc 26.5 g/dL (30-55); Mean Corpuscular Hemoglobin 23.2 pg (27-33); Mean Corpuscular Volume 87.6 fl (82-101); Mean Platelet Volume 9.4 fL (7.4-10.4); Monocytes # 0.1 10^3/uL (0.2-0.9); Monocytes % 1.6 %; Neutrophils # 4.05 10^3/uL (1.8-7.7); Neutrophils % 91.1 %; Nucleated Red Blood Cells % 0 %; Platelet Count 188 10^3/cmm (157-399); Red Cell Distribution Width 20.6 % (12.1-15.1); White Blood Count 4.44 10^3/uL (3.29-11.43)
[2024-02-22 04:58] LABS: Alanine Aminotransferase 22 U/L (0-41); Albumin Level 3.5 g/dL (3.5-5.2); Alkaline Phosphatase 188 U/L (40-130); Anion Gap 16.9 (5-19); Aspartate Amino Transferase 18 U/L (0-40); Blood Urea Nitrogen 68 mg/dL (6-20); C Reactive Protein 26.7 mg/L (0.0-4.9); Calcium 8.7 mg/dL (8.5-10.5); Carbon Dioxide 33 mmol/L (22-29); Chloride 96 mmol/L (98-107); Globulin 3.6 g/dL (1.3-4.6); Glucose 275 mg/dL (65-115); Magnesium 1.9 mg/dL (1.7-2.3); Osmolality Calculated 320 mOsm/kg (285-295); Phosphorus 6.4 mg/dL (2.5-4.5); Potassium 5.9 mmol/L (3.5-5.1); Sodium 140 mmol/L (136-145); Total Bilirubin 0.9 mg/dL (0.15-1.2); Total Protein 7.1 g/dL (6.6-8.7)
[2024-02-22] MEDS: allopurinol 100 mg Tablet PO (06:49)
[2024-02-22] MEDS: aspirin 81 mg EC Tablet PO (06:49)
--- NOTE | 2024-02-22 06:50 | PC.NURSE ---
Atenolol not given due to low HR. Current HR 58. Dr Serrano notified.
[2024-02-22 07:18] LABS: Glucose Point of Care 277 mg/dL (70-110)
[2024-02-22] MEDS: albuterol 2.5 mg/3 mL Neb INHALATION ×4 (07:49→21:36)
[2024-02-22] MEDS: budesonide 0.5 mg/2 mL Neb INHALATION ×2 (07:49→21:36)
[2024-02-22] MEDS: nystatin powder 30 gm Btl 1 APPLIC TOPICAL (08:11)
[2024-02-22] MEDS: insulin lispro 100 unit/1 mL SUBCUT ×3 (08:11→17:40)
[2024-02-22 10:33] LABS: Glucose Point of Care 255 mg/dL (70-110)
[2024-02-22] MEDS: insulin regular-human 10 UNIT in SYRINGE 1 EACH IVP (10:40)
[2024-02-22] MEDS: sodium polystyrene sulfonate 15 gm/60 mL Btl PO (10:40)
[2024-02-22] MEDS: dextrose 10% 125 ML 750 ML IV (10:42)
--- NOTE | 2024-02-22 11:05 | P.PN_ITS ---
Subjective 2 Subjective: Patient can be transferred out of ICU No EKG changes for hyperkalemia Potassium improved We were not able to get Shaw catheter placed Patient has been incontinent, History is for soiled with urine this morning He was on BiPAP when I woke him up Patient uses BiPAP at nighttime No active nausea or vomiting If potassium normal by tomorrow may be able to go back to [facility] Will call nursing report, they can arrange a ride as well Vitals/I&O/Wt Last Vital Signs Temp 97.3 F L 02/22/24 04:00 Pulse 63 02/22/24 10:00 Resp 15 02/22/24 10:00 BP 148/85 02/22/24 10:00 Pulse Ox 100 02/22/24 10:00 O2 Del Method BiPAP 02/22/24 07:57 O2 Flow Rate 5 02/21/24 20:26 FiO2 40 02/22/24 07:57 02/21/24 02/22/24 02/22/24 22:59 06:59 14:59 Intake Total 1000 / 1000 Output Total 275 / 275 Balance -275 / -275 1000 / 725 Weight last 48 hrs Weight 188.694 kg Physical Exam 2 Narrative: Morbidly obese Bedsheet soiled with urine Patient had 1 bowel movement yesterday Awake and alert Seems to have mild cognitive impairment Able to move extremities No focal deficit Distended abdomen Abdominal pannus Intertrigo Urinary Catheter Management: Shaw: Cath Placed During This Visit: yes Urinary Catheter Date of Insertion: 02/22/24 Urinary Catheter Time of Insertion: 10:15 Data 02/22/24 04:30 02/22/24 04:30 A&P Assessment and plan (1) Anxiety: (2) Port-A-Cath in place: (3) Morbid obesity: (4) Rectal mass: (5) Acute renal failure: (6) Obstructive sleep apnea: (7) Callus of foot: (8) Hyperkalemia: Plan Hyperkalemia Will give another dose of Kayexalate Patient had 1 bowel movement yesterday Potassium improved to 5.9 No EKG changes Will also give another dose of insulin repeat BMP 2 PM Dehydration related acute on chronic kidney disease Stop IV fluids, creatinine trending towards baseline No signs of hydronephrosis, nonobstructing calculi no hydronephrosis Chronic opiate dependent Continue hydrocodone Nausea vomiting after chemotherapy CT abdomen pelvis unremarkable other than nonobstructing calculi Diabetic diet Reduce the dose of insulin Insulin sliding scale Patient has history of sleep apnea will use BiPAP at nighttime Patient is stating that he is full code Sister is medical DPOA Rectal cancer currently going through chemo has a PICC line in place Attestations 2 Medical Necessity Statement*: Discharge back to the facility once potassium is normal Diagnoses Anxiety F41.9 Port-A-Cath in place Z95.828 Morbid obesity E66.01 Rectal mass K62.89 Acute renal failure N17.9 Obstructive sleep apnea G47.33 Callus of foot L84 Hyperkalemia E87.5
[2024-02-22 13:15] LABS: Glucose Point of Care 249 mg/dL (70-110)
--- NOTE | 2024-02-22 13:29 | PC.NURSE ---
Pt was transferred to [facility] via bed at 1315 on 4L NC. Patient tolerated well. Personal belongings include Wheelchair, margaret lift pad, shoes, shirt, and shorts. Staff aware.
--- NOTE | 2024-02-22 13:54 | PC.NURSE ---
1345 pt moved to 264 via beri bed from ICU.
[2024-02-22 14:17] LABS: Anion Gap 17.3 (5-19); Blood Urea Nitrogen 68 mg/dL (6-20); Calcium 8.7 mg/dL (8.5-10.5); Carbon Dioxide 32 mmol/L (22-29); Chloride 96 mmol/L (98-107); Creatinine Clr Calc Pharmacy 87.7331; Glomerular Filtration Rate 42.7 mL/min (90-130); Glucose 276 mg/dL (65-115); Osmolality Calculated 320 mOsm/kg (285-295); Potassium 5.3 mmol/L (3.5-5.1); Sodium 140 mmol/L (136-145)
--- NOTE | 2024-02-22 15:28 | PM.DCS ---
Discharge Providers Date of Admission: 02/21/24 15:13 Date of Discharge: February 22, 2024 Attending Provider at Admission: Lester Araujo MD Attending Provider at Discharge: Lester Araujo MD Primary Care Provider: Eddie Willoughby MD Diagnoses at Discharge Discharge Diagnosis (1) Anxiety: Status: Acute (2) Port-A-Cath in place: Status: Acute (3) Morbid obesity: Status: Acute (4) Rectal mass: Status: Acute (5) Acute renal failure: Status: Acute (6) Obstructive sleep apnea: Status: Acute (7) Callus of foot: Status: Acute (8) Hyperkalemia: Status: Acute Reason for Visit Reason for Visit: Hyper-Colema TEDDY Rectal Cancer Hospital Course Hospital Course 53-year male with history of rectal cancer, recently started experiencing nausea vomiting after chemotherapy, patient was sent from oncology clinic for hyperkalemia dehydration and acute on chronic kidney disease. Patient's Bumex and potassium supplementation was put on hold, he was given IV fluids, his creatinine started improving, potassium was treated with 2 doses of Kayexalate, 3 doses of insulin along albuterol and bicarb hyperkalemia cocktail regimen. Potassium at the time of discharge 5.3. Creatinine 1.7. Patient uses BiPAP at nighttime from sleep apnea. Patient is stating that since initiation of chemotherapy he has been using wheelchair, he is Michael lift dependent, CT abdomen pelvis did not show any sign of hydronephrosis he has nonobstructing calculi, he remained afebrile no significant leukocytosis. With improvement in potassium and kidney function I am discharging him back to [facility] I have stopped his potassium for a week he may resume Bumex. I will also discontinue metformin for his poor GFR. Would also recommend decreasing the units of long-acting insulin from 65 units to 50 units because of acute on chronic kidney disease which is recovering. Physical Exam Narrative: Morbidly obese Hard to assess volume status Abdomen distended nontender Lower extremity nonpitting edema Abdominal pannus with intertrigo S1, S2 Currently on 4 L nasal cannula Hemodynamic stable Urinary Catheter Management: Shaw: Cath Placed During This Visit: yes Urinary Catheter Date of Insertion: 02/22/24 Urinary Catheter Time of Insertion: 10:15 Discharge Data Studies Completed and Pending Completed Studies During Hospitalization Category Date Time Status CT abdomen pelvis wo con [id number] Routine Cat Scan 02/21/24 15:29 Completed Pending at discharge Category Date Time Status Basic Metabolic Panel AM LABS Lab 02/23/24 04:00 Ordered Complete Blood Count w/Auto AM LABS Lab 02/23/24 04:00 Ordered Radiology Impressions Abdomen/Pelvis CT 02/21/24 15:29 IMPRESSION: 1. Limited evaluation due to artifact. 2. Cirrhotic liver with splenomegaly and small volume ascites. 3. 1.2 cm nonobstructing calculus within the right kidney. No hydronephrosis. Laboratory Results WBC 4.44 10^3/uL (3.29-11.43) 02/22/24 04:30 RBC 3.70 10^6/uL (3.85-5.65) L 02/22/24 04:30 Hgb 8.60 g/dL (11.27-16.99) L 02/22/24 04:30 Hct 32.4 % (37-53) L 02/22/24 04:30 MCV 87.6 fl (82-101) 02/22/24 04:30 MCH 23.2 pg (27-33) L 02/22/24 04:30 MCHC 26.5 g/dL (30-55) L 02/22/24 04:30 RDW 20.6 % (12.1-15.1) H 02/22/24 04:30 Plt Count 188 10^3/cmm (157-399) 02/22/24 04:30 MPV 9.4 fL (7.4-10.4) 02/22/24 04:30 Neut % (Auto) 91.1 % 02/22/24 04:30 Lymph % (Auto) 6.8 % 02/22/24 04:30 [place] % (Auto) 1.6 % 02/22/24 04:30 Eos % (Auto) 0.0 % 02/22/24 04:30 Baso % (Auto) 0.0 % 02/22/24 04:30 Neut # (Auto) 4.05 10^3/uL (1.8-7.7) 02/22/24 04:30 Lymph # (Auto) 0.3 10^3/uL (0.8-4.8) L 02/22/24 04:30 [place] # (Auto) 0.1 10^3/uL (0.2-0.9) L 02/22/24 04:30 Eos # (Auto) 0.0 10^3/uL (0.0-0.8) 02/22/24 04:30 Baso # (Auto) 0.0 10^3/uL (0.0-0.1) 02/22/24 04:30 Nucleated RBC % (auto) 0 % 02/22/24 04:30 Nucleated RBCs # 0.0 /100WBC 02/22/24 04:30 Sodium 140 mmol/L (136-145) 02/22/24 13:54 Potassium 5.3 mmol/L (3.5-5.1) H 02/22/24 13:54 Chloride 96 mmol/L (98-107) L 02/22/24 13:54 Carbon Dioxide 32 mmol/L (22-29) H 02/22/24 13:54 Anion Gap 17.3 (5-19) 02/22/24 13:54 BUN 68 mg/dL (6-20) H 02/22/24 13:54 Creatinine 1.7 mg/dL (0.7-1.2) H 02/22/24 13:54 GFR Calculation 42.7 mL/min (90-130) L 02/22/24 13:54 Glucose 276 mg/dL (65-115) H 02/22/24 13:54 POC Glucose 249 mg/dL (70-110) H 02/22/24 13:12 Estimat Average Glucose 212 02/21/24 15:41 Hemoglobin A1c 9.0 % (4.0-6.0) H 02/21/24 15:41 Calculated Osmolality 320 mOsm/kg (285-295) H 02/22/24 13:54 Calcium 8.7 mg/dL (8.5-10.5) 02/22/24 13:54 Phosphorus 6.4 mg/dL (2.5-4.5) H 02/22/24 04:30 Magnesium 1.9 mg/dL (1.7-2.3) 02/22/24 04:30 Total Bilirubin 0.9 mg/dL (0.15-1.2) 02/22/24 04:30 AST 18 U/L (0-40) 02/22/24 04:30 ALT 22 U/L (0-41) 02/22/24 04:30 Alkaline Phosphatase 188 U/L (40-130) H 02/22/24 04:30 C-Reactive Protein 26.7 mg/L (0.0-4.9) H 02/22/24 04:30 Total Protein 7.1 g/dL (6.6-8.7) 02/22/24 04:30 Albumin 3.5 g/dL (3.5-5.2) 02/22/24 04:30 Globulin 3.6 g/dL (1.3-4.6) 02/22/24 04:30 Urine Color Yellow (Yellow) 02/21/24 19:30 Urine Appearance Clear (CLEAR) 02/21/24 19:30 Urine pH 5.0 (5-7) 02/21/24 19:30 Ur Specific [place] 1.009 (1.005-1.030) 02/21/24 19:30 Urine Protein Negative (Negative) 02/21/24 19:30 Urine Glucose (UA) Negative (Normal) 02/21/24 19:30 Urine Ketones Negative (Negative) 02/21/24 19:30 Urine Blood Negative (Negative) 02/21/24 19:30 Urine Nitrate Negative (Negative) 02/21/24 19:30 Urine Bilirubin Negative (Negative) 02/21/24 19:30 Urine Urobilinogen 1.0 mg/dL (Negative) 02/21/24 19:30 Ur Leukocyte Esterase Negative (Negative) 02/21/24 19:30 Urine RBC 0-2 /hpf (0-2) 02/21/24 19:30 Urine WBC 0-5 /hpf (0-5) 02/21/24 19:30 Ur Squamous Epith Cells 0-5 /hpf (0-5) 02/21/24 19:30 Amorphous Sediment Not Reportable 02/21/24 19:30 Urine Bacteria None seen /hpf (NONE) 02/21/24 19:30 Hyaline Casts 22.73 /lpf 02/21/24 19:30 Fine Granular Casts 5-10 /lpf H 02/21/24 19:30 Vitals Last Vital Signs Temp 98.5 F 02/22/24 14:00 Pulse 69 02/22/24 15:26 Resp 16 02/22/24 15:26 BP 143/76 02/22/24 14:00 Pulse Ox 91 02/22/24 15:26 O2 Del Method Nasal Cannula 02/22/24 15:26 O2 Flow Rate 4 02/22/24 15:26 FiO2 40 02/22/24 07:57 Discharge Plan Discharge Patient Disposition: Xfer SNF Condition: Stable Prescriptions: Continued (DME) oxygen-air delivery systems Device See Rx Instructions .ROUTE .MEDSUPPLY Qty: 1 Rx Instructions: As directed (DME) diabetic shoes with 3 pairs of inserts See Rx Instructions .Route .MEDSUPPLY Qty: 1 0RF Rx Instructions: As directed by BOAZ&O atorvastatin [Lipitor] 80 mg Tablet 80 mg PO BEDTIME aspirin 81 mg Tablet,Delayed Release (Dr/Ec) 81 mg PO QAM Dulera 200-5 mcg/actuation HFA aerosol inhaler 2 puff INHALATION BID allopurinol 100 mg tablet 100 mg PO QAM tamsulosin 0.4 mg capsule 0.4 mg PO QPM ziprasidone HCl [Geodon] 40 mg capsule 40 mg PO QAM atenolol 100 mg tablet 100 mg PO QAM acetaminophen [Tylenol] 325 mg capsule 650 mg PO Q4H PRN (Reason: pain/temp) insulin aspart U-100 [Novolog FlexPen U-100 Insulin] 100 unit/mL (3 mL) insulin pen See Rx Instructions .ROUTE .COMPLEX Qty: 15 0RF Rx Instructions: INJECT BY SUBCUTANEOUS INJECITON BEFORE MEASL PER SLIDING SCALE: BS 150-199=2 UNITS, 200-249=4 UNITS,250-299=6 UNITS,300-349=8 UNITS, 350-400=10 UNITS. Silvadene 1 % Cream 1 applic TOPICAL BID Rx Instructions: apply a 1.5 mm thickness bumetanide 2 mg Tablet 2 mg PO BID ondansetron HCl 4 mg Tablet 4 mg PO Q4H PRN (Reason: Nausea And Vomiting) ferrous sulfate 325 mg (65 mg iron) Tablet 325 mg PO DAILY Trulicity 1.5 mg/0.5 mL Pen Injector 1.5 mg SUBCUT Q7D Rx Instructions: ON SUNDAY polyethylene glycol 3350 17 gram Powder In Packet 17 g PO DAILY PRN (Reason: Constipation) cetirizine [Zyrtec] 10 mg Tablet 10 mg PO DAILY sertraline 100 mg tablet 100 mg PO DAILY bisacodyl [Dulcolax (bisacodyl)] 5 mg Tablet,Delayed Release (Dr/Ec) 10 mg PO Q12H PRN (Reason: Constipation) hydrocodone-acetaminophen 7.5-325 mg tablet 1 tab PO Q6H PRN (Reason: pain) Qty: 10 0RF Changed insulin glargine [Lantus Solostar U-100 Insulin] 100 unit/mL (3 mL) Insulin Pen 50 unit SUBCUT DAILY Qty: 15 0RF Held potassium chloride 40 mEq/15 mL Liquid 40 meq PO DAILY Hold Instructions: Resume on 02/29/24. Discontinued metformin 1,000 mg Tablet 1,000 mg PO BID Discharge Orders: Discharge Order (Routine); Ordered 02/22/24 Ordered By: Lester Araujo Discharge Attestations Time Spent in Discharge Care*: greater than 30 min Status at Discharge: Cognitive status at discharge: cognitively intact, Behavioral status at discharge: cooperative, Quality Metrics Clinical Quality Measures [ No reported AMI, CVA or VTE this stay] Coding Level of Care Code Acute Code for Chg Fwd Diagnoses Anxiety F41.9 Port-A-Cath in place Z95.828 Morbid obesity E66.01 Rectal mass K62.89 Acute renal failure N17.9 Obstructive sleep apnea G47.33 Callus of foot L84 Hyperkalemia E87.5
--- NOTE | 2024-02-22 16:03 | DCPLANNER ---
[facility]/ [employer] ride set up at 1600 Ride confirmation [id number]
--- NOTE | 2024-02-22 16:31 | PC.NURSE ---
Report called to [facility] charge nurse. Updated on all labs, medication changes, and pt status update.
[2024-02-22 17:02] LABS: Glucose Point of Care 273 mg/dL (70-110)
[2024-02-22] MEDS: tamsulosin 0.4 mg Capsule PO (17:40)
[2024-02-22] MEDS: HYDROcodone-acetaminophen 7.5-325 mg Tablet 1 TAB PO (20:30)
[2024-02-22 20:53] LABS: Glucose Point of Care 241 mg/dL (70-110)
[2024-02-22] MEDS: montelukast sodium 10 mg Tablet PO (22:24)
[2024-02-22] MEDS: insulin glargine 100 units/1 mL 10 UNIT SUBCUT (22:24)
--- NOTE | 2024-02-22 23:29 | PC.NURSE ---
Demetri Barger here to transport pt to [facility]. Pt d/c'd w/d/c instructions. Pt in no acute distress, stable.
--- NOTE | 2024-02-22 23:48 | PC.NURSE ---
[facility] updated that patient is just now leaving via [facility]. Patient discharged with all belongings.
== END 2024-02-22 23:29 | disposition skilled nursing facility (03) | DRG 641 ==
LOC: ICU 02-22 06:36 → MEDSURG 02-22 13:36
PROVIDERS: Admitting Provider Internal Medicine; PCP Internal Medicine; Visit Provider Internal Medicine
DX: E87.5 Hyperkalemia (principal); C20 Malignant neoplasm of rectum; I13.0 Hypertensive heart and chronic kidney disease with heart failure and stage 1 through stage 4 chronic kidney disease, or unspecified chronic kidney disease; Z68.43 Body mass index [BMI] 50.0-59.9, adult; N17.9 Acute kidney failure, unspecified; E78.5 Hyperlipidemia, unspecified; E11.22 Type 2 diabetes mellitus with diabetic chronic kidney disease; N18.9 Chronic kidney disease, unspecified; E66.01 Morbid (severe) obesity due to excess calories; G47.33 Obstructive sleep apnea (adult) (pediatric); F32.A Depression, unspecified; Z86.73 Personal history of transient ischemic attack (TIA), and cerebral infarction without residual deficits; E86.0 Dehydration; Z79.60 Long term (current) use of unspecified immunomodulators and immunosuppressants; Z79.891 Long term (current) use of opiate analgesic; Z99.3 Dependence on wheelchair; Z79.82 Long term (current) use of aspirin; Z79.4 Long term (current) use of insulin; Z95.828 Presence of other vascular implants and grafts; F41.9 Anxiety disorder, unspecified; D63.1 Anemia in chronic kidney disease; E78.2 Mixed hyperlipidemia; M10.9 Gout, unspecified; L84 Corns and callosities; Z79.85 Long-term (current) use of injectable non-insulin antidiabetic drugs; L30.4 Erythema intertrigo; R11.2 Nausea with vomiting, unspecified; T45.1X5A Adverse effect of antineoplastic and immunosuppressive drugs, initial encounter
CPT/HCPCS: 36415; 36416; 36591; 51702; 74176; 80048; 80053; 81003; 81015; 82962; 83036; 83735; 84100; 85025; 86140; 93005; 94640; 94660; 96372; J0612; J1644; J1815; J7030; J7613; J7626; J7799

== ENCOUNTER 2024-02-24 00:27 | Emergency (ER) | payer MEDICAID, SELFPAY ==
[2024-02-24] VITALS (8 sets, daily range): BP systolic 128–157; BP diastolic 63–102; PULSE 86–110; RESP 11–24; TEMP 36.6; O2SAT 90–99; BMI 62.7
--- NOTE | 2024-02-24 00:32 | ECG_ITS ---
[facility] Test Date: 2024-02-24 Pat Name: Arnol Guzman Department: Room: Gender: Male [employer] Operator: : 1970 Requested By: Kvng León Order Number: [id number] Bernardino MD: Wali Martinez M.D. Measurements Intervals [place] Rate: 112 P: 0 [place]: 0 QRS: 90 QRSD: 102 T: 31 QT: 338 QTc: 462 Interpretive Statements ATRIAL FLUTTER WITH RAPID VENTRICULAR RESPONSE INCOMPLETE RIGHT BUNDLE BRANCH BLOCK [90+ ms QRS DURATION, TERMINAL R IN V1/V2, 40+ ms S IN I/aVL/V4/V5/V6] MODERATE ST DEPRESSION [0.05+ mV ST DEPRESSION] Compared to ECG 02/21/2024 16:04:04 ST (T wave) deviation now present Sinus rhythm no longer present Electronically Signed On 02-24-2024 20:08:59 CDT by Wali Martinez M.D. [id number] f
--- NOTE | 2024-02-24 00:59 | XRR_ITS ---
PROCEDURE INFORMATION: Exam: XR Chest Exam date and time: 02/24/2024 1:01 AM Age: 53 years old Clinical indication: Chest pressure; Prior surgery; Surgery date: 6+ months; Surgery type: Chest port; Patient HX: C/O chest pain. History of chf and rectal cancer. ; Additional info: Cp TECHNIQUE: Imaging protocol: Radiologic exam of the chest. Views: 1 view. COMPARISON: CR XR chest 1V portable [id number] 12/18/2023 12:03 PM FINDINGS: Tubes, catheters and devices: There is a left subclavicular central venous catheter positioned with its tip in the upper SVC. Lungs: Diffuse prominent pulmonary vascular markings. Pleural spaces: No pneumothorax. Heart/Mediastinum: Unremarkable. No cardiomegaly. Bones/joints: Unremarkable. XR/XR chest 1V portable [id number] IMPRESSION: 1. There is a left subclavicular central venous catheter positioned with its tip in the upper SVC. 2. No pneumothorax.
[2024-02-24 01:07] LABS: Charge for UA Resulting for Rev
[2024-02-24 01:10] LABS: Bilirubin Urine Negative (Negative); Blood Urine 3+ (Negative); Glucose Urine UA Negative (Normal); Ketones Urine Negative (Negative); Leukocyte Esterase Urine 3+ (Negative); Nitrate Urine Negative (Negative); Protein Urine 2+ (Negative); Specific Gravity, Urine 1.013 (1.005-1.030); Urine Appearance Cloudy (CLEAR); Urine Color Yellow (Yellow)
[2024-02-24 01:15] LABS: Bacteria Urine 4+ /hpf; Hyaline Casts Urine 18.18 /lpf; RBC Urine 51-100 /hpf (0-2); Squamous Epithelial Cell Urine 0-5 /hpf (0-5); WBC Urine 51-100 /hpf (0-5)
[2024-02-24 01:22] LABS: Basophils % 0.4 %; Eosinophils % 0.2 %; Hematocrit 31.7 % (37-53); Lymphocytes # 0.5 10^3/uL (0.8-4.8); Lymphocytes % 9.7 %; Mean Corpuscular HGB Conc 27.1 g/dL (30-55); Mean Corpuscular Hemoglobin 23.7 pg (27-33); Mean Corpuscular Volume 87.3 fl (82-101); Mean Platelet Volume 9.1 fL (7.4-10.4); Monocytes # 0.1 10^3/uL (0.2-0.9); Monocytes % 2.3 %; Neutrophils # 4.13 10^3/uL (1.8-7.7); Nucleated Red Blood Cells % 0 %; Platelet Count 170 10^3/cmm (157-399); Red Blood Count 3.63 10^6/uL (3.85-5.65); Red Cell Distribution Width 20.8 % (12.1-15.1); White Blood Count 4.75 10^3/uL (3.29-11.43)
[2024-02-24 01:30] LABS: UA Slide Review UA Slide Review Perf
[2024-02-24 01:31] LABS: Amorphous Sediment Urine 1+ /hpf; Coarse Granular Casts Urine 0-4 /lpf; Fine Granular Casts Urine 0-4 /lpf; Mucus Urine 1+ /hpf; Triple Phosphate Crystal Urine 15-25 /hpf
[2024-02-24 01:32] LABS: Troponin(5th) Baseline 58 ng/L (0-15)
[2024-02-24 01:32] LABS: Add Urine Culture? Yes
[2024-02-24 01:34] LABS: ABG PCO2 68.7 mmHg (35-45); ABG PH Result 7.37 (7.35-7.45); Arterial Blood Gas Hematocrit 27.5 % (42-52); Base Excess ABG 12.5 mmol/L (-2.0-2.0); Blood Gas Allen Test Pos; Blood Gas Operator Identificat ED; Blood Gas Sample Site Radial, left; Blood Gas Sample Type Arterial; HCO3 ABG 39.7 mmol/L (22-26); Oxygen Device NC; PO2 ABG 68.4 mmHg (80.0-100.0); PO2 FiO2 Ratio Arterial Blood 190
[2024-02-24 02:12] LABS: Alanine Aminotransferase 22 U/L (0-41); Albumin Level 3.4 g/dL (3.5-5.2); Alkaline Phosphatase 198 U/L (40-130); Anion Gap 14.5 (5-19); Aspartate Amino Transferase 16 U/L (0-40); Blood Urea Nitrogen 64 mg/dL (6-20); Calcium 8.6 mg/dL (8.5-10.5); Carbon Dioxide 34 mmol/L (22-29); Chloride 95 mmol/L (98-107); Creatine Phosphokinase 33 U/L (39-308); Globulin 3.6 g/dL (1.3-4.6); Glomerular Filtration Rate 53.4 mL/min (90-130); Glucose 318 mg/dL (65-115); Magnesium 1.9 mg/dL (1.7-2.3); NT Pro B Type Natriuretic Pept 5508 pg/mL (0-125); Osmolality Calculated 319 mOsm/kg (285-295); Phosphorus 4.3 mg/dL (2.5-4.5); Potassium 4.5 mmol/L (3.5-5.1); Sodium 139 mmol/L (136-145); Total Bilirubin 1.2 mg/dL (0.15-1.2)
[2024-02-24] MEDS: FUROsemide 10 mg/mL SDV 10mL 80 MG IVP (02:42)
[2024-02-24 02:58] LABS: Troponin 5 2HR 68.25 ng/L (0-15)
[2024-02-24 02:59] LABS: Troponin 5 2HR Delta 10.25 ABS# (0-10)
--- NOTE | 2024-02-24 03:07 | ED_ITS ---
HPI - Chest Pain 2 General: Chief Complaint: Chest Pain Stated Complaint: Chest Pain Time Seen by Provider: 02/24/24 00:49 History of Present Illness: 53-year-old male with a history of chron ic kidney disease, heart disease, BiPAP dependent at night. He presents with chest discomfort and shortness of breath. He was in the care home. He rated his pain at a 5 or 6, however on arrival, he is sleeping, resting comfortably. He notes that he was not on BiPAP in the care home last evening while in bed. Related Data Home Medications Medication Instructions Recorded Confirmed atorvastatin 80 mg tablet (Lipitor) 80 mg PO BEDTIME 07/14/19 02/22/24 oxygen-air delivery systems ##1 03/11/20 02/22/24 aspirin 81 mg tablet,delayed 81 mg PO QAM 09/13/20 02/22/24 release mometasone-formoterol HFA 200 2 puff inhalation BID 11/24/20 02/22/24 mcg-5 mcg/actuation aerosol inhaler (Dulera) allopurinol 100 mg tablet 100 mg PO QAM 02/16/21 02/22/24 tamsulosin 0.4 mg capsule 0.4 mg PO QPM 07/13/21 02/22/24 ziprasidone HCl 40 mg capsule 40 mg PO QAM 07/13/21 02/22/24 (Geodon) atenolol 100 mg tablet 100 mg PO QAM 11/03/21 02/22/24 acetaminophen 325 mg capsule 650 mg PO Q4H PRN pain/temp 11/23/21 02/22/24 (Tylenol) bisacodyl 5 mg tablet,delayed 10 mg PO Q12H PRN Constipation 10/15/23 02/22/24 release (Dulcolax (bisacodyl)) cetirizine 10 mg tablet (Zyrtec) 10 mg PO DAILY 10/15/23 02/22/24 polyethylene glycol 3350 17 gram 17 g PO DAILY PRN Constipation 10/15/23 02/22/24 oral powder packet potassium chloride 40 mEq/15 mL 40 meq PO DAILY 10/15/23 02/22/24 oral liquid sertraline 100 mg tablet 100 mg PO DAILY 10/15/23 02/22/24 bumetanide 2 mg tablet 2 mg PO BID 02/22/24 02/22/24 dulaglutide 1.5 mg/0.5 mL 1.5 mg SUBCUT Q7D 02/22/24 02/22/24 subcutaneous pen injector (Trulicity) ferrous sulfate 325 mg (65 mg 325 mg PO DAILY 02/22/24 02/22/24 iron) tablet ondansetron HCl 4 mg tablet 4 mg PO Q4H PRN Nausea And Vomiting 02/22/24 02/22/24 silver sulfadiazine 1 % topical 1 applic topical BID 02/22/24 02/22/24 cream (Silvadene) Previous Rx's Medication Instructions Recorded insulin aspart U-100 100 unit/mL See Rx Instructions .Route 11/25/21 (3 mL) subcutaneous pen (Novolog .COMPLEX #15 mL FlexPen U-100 Insulin aspart) diabetic shoes with 3 pairs of #1 ea 02/13/23 inserts hydrocodone 7.5 mg-acetaminophen 1 tab PO Q6H PRN pain #10 tabs 12/18/23 325 mg tablet insulin glargine 100 unit/mL (3 50 unit (0.5 mL) SUBCUT DAILY #15 02/22/24 mL) subcutaneous pen (Lantus mL Solostar U-100 Insulin) cefdinir 300 mg capsule 300 mg PO BID #14 caps 02/24/24 Allergies Allergy/AdvReac Type Severity Reaction Status Date / Time aripiprazole [From Abilify] Allergy Unknown Verified 02/19/24 08:32 Calcium Channel Blocking Allergy ADR/ALGY-Pa Verified 02/19/24 08:32 Agent Dilt lpitations Penicillins Allergy ALGY-Hives Verified 02/19/24 08:32 diltiazem [From Cardizem] AdvReac ADR/ALGY-Pa Verified 02/19/24 08:32 lpitations PFSH ED 2 PFSH: Medical History (Updated 02/24/24 @ 03:10 by Kvng Godinez DO) Hyperkalemia Rectal mass Callus of foot Obstructive sleep apnea Spondylisthesis Cerebral infarction, watershed distribution, unilateral, acute Rhabdomyolysis Acute renal failure Rectal cancer Port-A-Cath in place History of CVA (cerebrovascular accident) Diabetes mellitus Chronic anemia Major depressive disorder, recurrent, moderate Morbid obesity Acute respiratory failure with hypoxia and hypercapnia Chest pain Hypertension CHF (congestive heart failure) Chest pain Chronic respiratory failure Anxiety Depression Transient cerebral ischemia Decubitus ulcer limited to breakdown of skin (stage 2) Anemia -has chronic iron deficiency anemia, baseline Hg is around 9-10 Pneumonia Hyperlipemia, mixed OPAL (obstructive sleep apnea) -in the process of getting CPAP set up Morbid (severe) obesity due to excess calories Gout CHF (congestive heart failure) -Echo (07/2019): EF=68%, normal diastolic function, no RWMA -on oral lasix -no acute exacerbation currently Hypertension -VSS; continue to monitor -continue oral antihypertensives Diabetes -NIDDM type II -A1c (11/2019): 8.2 -Accuchecks, ISS, hypoglycemia precautions -consistent carb diet -anticipate hyperglycemia with steroid use Surgical History History of umbilical hernia repair History of tonsillectomy History of hernia repair History of adenoidectomy Family History Mother Hypertension CAD (coronary artery disease) Stroke Social History Smoking and tobacco/nicotine status: never used tobacco/nicotine Second hand smoke exposure: Yes Alcohol intake: never Substance/Drug Use: never Adopted: No Caregiver/support person: No Lives independently: Yes Household members: family and friend(s) Housing: Manufactured/Mobile home Marital status: Single Number of children: 0 Number of grandchildren: 0 Highest education level completed: 8th Grade service: No Current occupational status: disabled Pets and animals: No Leisure activites: other Leisure activities details: play card games Sexually active: No Do you think of yourself as: Straight/Heterosexual Current gender identity: Male Yolanda/Mosque: Other Special yolanda needs: No Agree to transfusion: Yes Physical Exam 2 Const: COMMON NORMALS: no acute distress GENERAL APPEARANCE: cooperative and frail appearing; not ill appearing HENMT: COMMON NORMALS: normocephalic and Normal external nose present HEAD & SCALP: normocephalic NOSE: Normal external nose present Eye: COMMON NORMALS: Equal, round and reactive pupils present PUPIL: Yes Equal, round and reactive pupils present Neck/C-Spine: GENERAL: Yes trachea midline Resp: COMMON NORMALS: normal respiratory effort, No use of accessory muscles and clear to auscultation bilaterally AUSCULTATION: clear to auscultation bilaterally Cardio: COMMON NORMALS: regular rate and regular rhythm RATE: regular rate RHYTHM: regular rhythm Extremity: GENERAL: Yes edema Course 2 Vital Signs: Vital signs: Vital Signs Temperature 98 F 02/24/24 00:33 Pulse Rate 98 02/24/24 04:05 Respiratory Rate 16 02/24/24 02:12 Blood Pressure 141/102 02/24/24 04:05 Pulse Oximetry 94 02/24/24 04:05 Oxygen Delivery Me thod BiPAP 02/24/24 02:45 Fraction of Inspir ed Oxygen 36 02/24/24 03:58 MDM - Chest Pain Medical Decision Making The patient's vitals are stable. His blood pressure is improved. Saturations were 92-95 on nasal cannula, but he was somewhat somnolent. He was placed on BiPAP with improvement in the somnolence. Evidently he is prescribed nightly BiPAP. pH is 7.37 with an elevated pCO2 chronically. It appears she is compensated. White blood cell count is 4.75. Hemoglobin is stable at 8.6. Creatinine is improved at 1.4. BNP is elevated as is his first troponin. These are not out of the realm for someone with chronic kidney disease. His delta troponin is 10, however given the strain of not being on BiPAP, this is not surprising. His chest pain is resolved. He wishes not to be in the hospital of possible. He does have a chronic Shaw placed. He was given Lasix with diuresis here. He does appear to have a urinary tract infection, for which antibiotics will be added. Lab Data 02/24/24 01:08 02/24/24 01:08 Radiology Impressions Chest X-Ray 02/24/24 00:59 IMPRESSION: 1. There is a left subclavicular central venous catheter positioned with its tip in the upper SVC. 2. No pneumothorax. Laboratory Results WBC 4.75 10^3/uL (3.29-11.43) 02/24/24 01:08 RBC 3.63 10^6/uL (3.85-5.65) L 02/24/24 01:08 Hgb 8.60 g/dL (11.27-16.99) L 02/24/24 01:08 Hct 31.7 % (37-53) L 02/24/24 01:08 MCV 87.3 fl (82-101) 02/24/24 01:08 MCH 23.7 pg (27-33) L 02/24/24 01:08 MCHC 27.1 g/dL (30-55) L 02/24/24 01:08 RDW 20.8 % (12.1-15.1) H 02/24/24 01:08 Plt Count 170 10^3/cmm (157-399) 02/24/24 01:08 MPV 9.1 fL (7.4-10.4) 02/24/24 01:08 Neut % (Auto) 87.0 % 02/24/24 01:08 Lymph % (Auto) 9.7 % 02/24/24 01:08 [place] % (Auto) 2.3 % 02/24/24 01:08 Eos % (Auto) 0.2 % 02/24/24 01:08 Baso % (Auto) 0.4 % 02/24/24 01:08 Neut # (Auto) 4.13 10^3/uL (1.8-7.7) 02/24/24 01:08 Lymph # (Auto) 0.5 10^3/uL (0.8-4.8) L 02/24/24 01:08 [place] # (Auto) 0.1 10^3/uL (0.2-0.9) L 02/24/24 01:08 Eos # (Auto) 0.0 10^3/uL (0.0-0.8) 02/24/24 01:08 Baso # (Auto) 0.0 10^3/uL (0.0-0.1) 02/24/24 01:08 Nucleated RBC % (auto) 0 % 02/24/24 01:08 Nucleated RBCs # 0.0 /100WBC 02/24/24 01:08 Specimen Type Arterial 02/24/24 01:22 Sample Site Radial, left 02/24/24 01:22 ABG pH 7.37 (7.35-7.45) 02/24/24 01:22 ABG pCO2 68.7 mmHg (35-45) H* 02/24/24 01:22 ABG pO2 68.4 mmHg (80.0-100.0) L 02/24/24 01:22 ABG PO2/FiO2 Ratio 190 02/24/24 01:22 ABG HCO3 39.7 mmol/L (22-26) H 02/24/24 01:22 ABG Base Excess 12.5 mmol/L (-2.0-2.0) H 02/24/24 01:22 Luis Test Pos 02/24/24 01:22 Hematocrit 27.5 % (42-52) L 02/24/24 01:22 O2 Delivery Device Nc 02/24/24 01:22 O2 Liters/Min 4.0 % 02/24/24 01:22 FiO2 36.0 % 02/24/24 01:22 Cone Tender ID Ed 02/24/24 01:22 Sodium 139 mmol/L (136-145) 02/24/24 01:08 Potassium 4.5 mmol/L (3.5-5.1) 02/24/24 01:08 Chloride 95 mmol/L (98-107) L 02/24/24 01:08 Carbon Dioxide 34 mmol/L (22-29) H 02/24/24 01:08 Anion Gap 14.5 (5-19) 02/24/24 01:08 BUN 64 mg/dL (6-20) H 02/24/24 01:08 Creatinine 1.4 mg/dL (0.7-1.2) H 02/24/24 01:08 GFR Calculation 53.4 mL/min (90-130) L 02/24/24 01:08 Glucose 318 mg/dL (65-115) H 02/24/24 01:08 Calculated Osmolality 319 mOsm/kg (285-295) H 02/24/24 01:08 Calcium 8.6 mg/dL (8.5-10.5) 02/24/24 01:08 Phosphorus 4.3 mg/dL (2.5-4.5) 02/24/24 01:08 Magnesium 1.9 mg/dL (1.7-2.3) 02/24/24 01:08 Total Bilirubin 1.2 mg/dL (0.15-1.2) 02/24/24 01:08 AST 16 U/L (0-40) 02/24/24 01:08 ALT 22 U/L (0-41) 02/24/24 01:08 Alkaline Phosphatase 198 U/L (40-130) H 02/24/24 01:08 Creatine Kinase 33 U/L (39-308) L 02/24/24 01:08 Troponin T Baseline 58 ng/L (0-15) H 02/24/24 01:08 Troponin T 120 Minute 68.25 ng/L (0-15) H 02/24/24 02:26 Delta Troponin T 10.25 ABS# (0-10) H* 02/24/24 02:26 NT-Pro-B Natriuret Pep 5508 pg/mL (0-125) H 02/24/24 01:08 Total Protein 7.0 g/dL (6.6-8.7) 02/24/24 01:08 Albumin 3.4 g/dL (3.5-5.2) L 02/24/24 01:08 Globulin 3.6 g/dL (1.3-4.6) 02/24/24 01:08 Urine Color Yellow (Yellow) 02/24/24 00:41 Urine Appearance Cloudy (CLEAR) A 02/24/24 00:41 Urine pH 8.0 (5-7) A 02/24/24 00:41 Ur Specific [place] 1.013 (1.005-1.030) 02/24/24 00:41 Urine Protein 2+ (Negative) A 02/24/24 00:41 Urine Glucose (UA) Negative (Normal) 02/24/24 00:41 Urine Ketones Negative (Negative) 02/24/24 00:41 Urine Blood 3+ (Negative) A 02/24/24 00:41 Urine Nitrate Negative (Negative) 02/24/24 00:41 Urine Bilirubin Negative (Negative) 02/24/24 00:41 Urine Urobilinogen 1.0 mg/dL (Negative) 02/24/24 00:41 Ur Leukocyte Esterase 3+ (Negative) A 02/24/24 00:41 Urine RBC 51-100 /hpf (0-2) H 02/24/24 00:41 Urine WBC 51-100 /hpf (0-5) H 02/24/24 00:41 Ur Squamous Epith Cells 0-5 /hpf (0-5) 02/24/24 00:41 Triple Phos Crystals 15-25 /hpf H 02/24/24 00:41 Amorphous Sediment 1+ /hpf 02/24/24 00:41 Urine Bacteria 4+ /hpf (NONE) H 02/24/24 00:41 Hyaline Casts 18.18 /lpf 02/24/24 00:41 Fine Granular Casts 0-4 /lpf H 02/24/24 00:41 Coarse Granular Casts 0-4 /lpf H 02/24/24 00:41 Urine Mucus 1+ /hpf 02/24/24 00:41 All radiology interpretation(s) finalized by discharge Discharge Plan Discharge Patient Disposition: Home Clinical Impression: Diastolic congestive heart failure, UTI (urinary tract infection), Chest pain Condition: Stable Prescriptions: New cefdinir 300 mg capsule 300 mg PO BID Qty: 14 0RF No Action (DME) oxygen-air delivery systems Device See Rx Instructions .ROUTE .MEDSUPPLY Qty: 1 Rx Instructions: As directed (DME) diabetic shoes with 3 pairs of inserts See Rx Instructions .Route .MEDSUPPLY Qty: 1 0RF Rx Instructions: As directed by BOAZ&O atorvastatin [Lipitor] 80 mg Tablet 80 mg PO BEDTIME aspirin 81 mg Tablet,Delayed Release (Dr/Ec) 81 mg PO QAM Dulera 200-5 mcg/actuation HFA aerosol inhaler 2 puff INHALATION BID allopurinol 100 mg tablet 100 mg PO QAM tamsulosin 0.4 mg capsule 0.4 mg PO QPM ziprasidone HCl [Geodon] 40 mg capsule 40 mg PO QAM atenolol 100 mg tablet 100 mg PO QAM acetaminophen [Tylenol] 325 mg capsule 650 mg PO Q4H PRN (Reason: pain/temp) insulin aspart U-100 [Novolog FlexPen U-100 Insulin] 100 unit/mL (3 mL) insulin pen See Rx Instructions .ROUTE .COMPLEX Qty: 15 0RF Rx Instructions: INJECT BY SUBCUTANEOUS INJECITON BEFORE MEASL PER SLIDING SCALE: BS 150-199=2 UNITS, 200-249=4 UNITS,250-299=6 UNITS,300-349=8 UNITS, 350-400=10 UNITS. Silvadene 1 % Cream 1 applic TOPICAL BID Rx Instructions: apply a 1.5 mm thickness bumetanide 2 mg Tablet 2 mg PO BID ondansetron HCl 4 mg Tablet 4 mg PO Q4H PRN (Reason: Nausea And Vomiting) ferrous sulfate 325 mg (65 mg iron) Tablet 325 mg PO DAILY Trulicity 1.5 mg/0.5 mL Pen Injector 1.5 mg SUBCUT Q7D Rx Instructions: ON SUNDAY Lantus Solostar U-100 Insulin 100 unit/mL (3 mL) Insulin Pen 50 unit SUBCUT DAILY Qty: 15 0RF polyethylene glycol 3350 17 gram Powder In Packet 17 g PO DAILY PRN (Reason: Constipation) cetirizine [Zyrtec] 10 mg Tablet 10 mg PO DAILY sertraline 100 mg tablet 100 mg PO DAILY potassium chloride 40 mEq/15 mL Liquid 40 meq PO DAILY Hold Instructions: Resume on 02/29/24. bisacodyl [Dulcolax (bisacodyl)] 5 mg Tablet,Delayed Release (Dr/Ec) 10 mg PO Q12H PRN (Reason: Constipation) hydrocodone-acetaminophen 7.5-325 mg tablet 1 tab PO Q6H PRN (Reason: pain) Qty: 10 0RF Discharge Orders: Discharge ED (Routine); Ordered 02/24/24 Ordered By: Kvng Godinez Referrals: Eddie Willoughby MD [Primary Care Provider] - Patient Instructions: Heart Failure (ED), Chest Pain (ED), Chronic Kidney Disease (ED), Opioid Safety, Pain Management Activity Restrictions/Additional Instructions: This patient should be on BiPAP ventilation at night. Settings currently are 20/10 at 36% FiO2. Return for worsening shortness of breath, worsening mental status, continued chest pain, other concerning symptoms. Coding Level of Care Code ED [employer] for Zac Pickett
--- NOTE | 2024-02-24 03:28 | PC.NURSE ---
Report called to charge nurse Cherry at [facility] at 0330. Discharge instructions provided. Charge nurse stated the patient no longer has a Bipap to use due to Medicaid taking it away for noncompliance.
== END 2024-02-24 05:15 | disposition home or self-care (01) ==
PROVIDERS: Emergency Provider Emergency Medicine; PCP Internal Medicine
DX: I11.0 Hypertensive heart disease with heart failure (principal); I50.30 Unspecified diastolic (congestive) heart failure; N39.0 Urinary tract infection, site not specified; R07.9 Chest pain, unspecified; Z79.82 Long term (current) use of aspirin; Z79.4 Long term (current) use of insulin; Z79.85 Long-term (current) use of injectable non-insulin antidiabetic drugs; Z77.22 Contact with and (suspected) exposure to environmental tobacco smoke (acute) (chronic); Z85.048 Personal history of other malignant neoplasm of rectum, rectosigmoid junction, and anus; Z86.73 Personal history of transient ischemic attack (TIA), and cerebral infarction without residual deficits; E11.9 Type 2 diabetes mellitus without complications; E78.2 Mixed hyperlipidemia
CPT/HCPCS: 36600; 71045; 80053; 81003; 81015; 82550; 82803; 83735; 83880; 84100; 84484; 85025; 87077; 87086; 87186; 93005; 94660; 96374; 99285; J1940

== ENCOUNTER 2024-03-04 08:15 | Oncology outpatient (recurring) (ONCR) | payer MEDICAID, SELFPAY ==
[2024-02-19 08:33] LABS: Basophils % 0.4 %; Eosinophils % 0.6 %; Hematocrit 33.7 % (37-53); Lymphocytes # 0.6 10^3/uL (0.8-4.8); Mean Corpuscular Hemoglobin 23.5 pg (27-33); Mean Corpuscular Volume 87.1 fl (82-101); Mean Platelet Volume 8.8 fL (7.4-10.4); Monocytes # 0.5 10^3/uL (0.2-0.9); Monocytes % 6.6 %; Neutrophils # 5.74 10^3/uL (1.8-7.7); Nucleated Red Blood Cells % 0 %; Platelet Count 194 10^3/cmm (157-399); Red Blood Count 3.87 10^6/uL (3.85-5.65); Red Cell Distribution Width 21.2 % (12.1-15.1); White Blood Count 6.84 10^3/uL (3.29-11.43)
[2024-02-19 08:59] LABS: Carcinoembryonic Antigen 21.7 ng/mL (0.0-4.7)
[2024-02-19 09:10] LABS: Alanine Aminotransferase 26 U/L (0-41); Albumin Level 3.6 g/dL (3.5-5.2); Alkaline Phosphatase 217 U/L (40-130); Anion Gap 16.4 (5-19); Aspartate Amino Transferase 14 U/L (0-40); Blood Urea Nitrogen 37 mg/dL (6-20); Carbon Dioxide 32 mmol/L (22-29); Chloride 94 mmol/L (98-107); Glomerular Filtration Rate 63.8 mL/min (90-130); Glucose 278 mg/dL (65-115); Osmolality Calculated 303 mOsm/kg (285-295); Potassium 5.4 mmol/L (3.5-5.1); Sodium 137 mmol/L (136-145); Total Bilirubin 1.2 mg/dL (0.15-1.2); Total Protein 7.6 g/dL (6.6-8.7)
[2024-02-19] MEDS: dextrose 5% 250 ML 75 ML IV (13:53)
[2024-02-19] MEDS: palonosetron 0.25 mg/5 mL SDV IVP (13:54)
[2024-02-19] MEDS: dexamethasone 4 mg/mL INJ 5 mL 12 MG IVP (13:54)
[2024-02-19] MEDS: DEXTROSE 5% IV ×2 (14:11)
[2024-02-19] MEDS: LEUCOVORIN IV (14:11)
[2024-02-19] MEDS: OXALIPLATIN IV (14:11)
[2024-02-19] MEDS: FLUOROURACIL IV (16:30)
[2024-02-19] MEDS: SODIUM CHLORIDE IV (16:30)
[2024-02-19] MEDS: ELASTOMERIC PUMP PUMP IV (16:30)
[2024-02-19 16:37] VITALS: BP 158/72; PULSE 79; RESP 18; TEMP 36.5; O2SAT 93
[2024-02-21] MEDS: sodium chloride 0.9% 1,000 ML 999 ML IV (13:08)
[2024-02-21] MEDS: ondansetron 2 mg/ML SDV 2 mL 8 MG IVP (13:08)
[2024-02-21] MEDS: dexamethasone 10 mg/mL INJ 12 MG IVP (13:09)
[2024-02-21 13:39] LABS: Anion Gap 20.2 (5-19); Blood Urea Nitrogen 62 mg/dL (6-20); Calcium 9.1 mg/dL (8.5-10.5); Carbon Dioxide 30 mmol/L (22-29); Chloride 91 mmol/L (98-107); Creatinine Clr Calc Pharmacy 68.3854; Glomerular Filtration Rate 33.5 mL/min (90-130); Glucose 295 mg/dL (65-115); Osmolality Calculated 309 mOsm/kg (285-295); Potassium 6.2 mmol/L (3.5-5.1); Sodium 135 mmol/L (136-145)
--- NOTE | 2024-02-26 11:39 | PC.NURSE ---
Pt in infusion room waiting on provider office visit. Pt had port accessed from previous week 02/19/24. Dried blood and slight redness noted around port access site. Did not flush port, only removed needle. JW
[2024-03-04 08:19] LABS: Basophils % 0.3 %; Eosinophils # 0.1 10^3/uL (0.0-0.8); Eosinophils % 1.2 %; Hematocrit 32.6 % (37-53); Lymphocytes # 0.4 10^3/uL (0.8-4.8); Lymphocytes % 5.5 %; Mean Corpuscular Hemoglobin 23.2 pg (27-33); Mean Corpuscular Volume 85.8 fl (82-101); Mean Platelet Volume 9.7 fL (7.4-10.4); Monocytes # 0.4 10^3/uL (0.2-0.9); Neutrophils # 5.63 10^3/uL (1.8-7.7); Neutrophils % 86.7 %; Nucleated Red Blood Cells % 0 %; Platelet Count 171 10^3/cmm (157-399)
[2024-03-04 08:35] LABS: Alanine Aminotransferase 24 U/L (0-41); Albumin Level 3.2 g/dL (3.5-5.2); Alkaline Phosphatase 310 U/L (40-130); Anion Gap 11.9 (5-19); Aspartate Amino Transferase 14 U/L (0-40); Blood Urea Nitrogen 27 mg/dL (6-20); Calcium 8.3 mg/dL (8.5-10.5); Carbon Dioxide 37 mmol/L (22-29); Chloride 95 mmol/L (98-107); Creatinine Clr Calc Pharmacy 102.7843; Globulin 3.3 g/dL (1.3-4.6); Glomerular Filtration Rate 63.8 mL/min (90-130); Glucose 289 mg/dL (65-115); Iron 47 ug/dL (59-158); Osmolality Calculated 306 mOsm/kg (285-295); Percent Saturation 20.5 % (20-50); Potassium 3.9 mmol/L (3.5-5.1); Sodium 140 mmol/L (136-145); Total Bilirubin 1.2 mg/dL (0.15-1.2); Total Iron Binding Capacity 229 mcg/dl; Total Protein 6.5 g/dL (6.6-8.7); Unsaturated Iron Binding 182 ug/dL (112-347)
== END 2024-03-08 23:59 | disposition home or self-care (01) ==
PROVIDERS: Visit Provider Internal Medicine Medical Oncology
DX: C20 Malignant neoplasm of rectum (principal); Z53.9 Procedure and treatment not carried out, unspecified reason; D64.9 Anemia, unspecified; Z79.899 Other long term (current) drug therapy; Z79.52 Long term (current) use of systemic steroids
CPT/HCPCS: 74018; 80048; 80053; 82378; 83540; 83550; 85025; 96365; 96375; 96413; 96415; 96523; 99214; 99215; J0640; J1100; J2405; J2469; J7030; J7060; J9190; J9263

== ENCOUNTER 2024-03-26 07:30 | Oncology outpatient (recurring) (ONCR) | payer MEDICAID, SELFPAY ==
[2024-03-12 08:15] LABS: Basophils % 0.8 %; Eosinophils # 0.2 10^3/uL (0.0-0.8); Eosinophils % 2.9 %; Hematocrit 35.2 % (37-53); Lymphocytes # 0.6 10^3/uL (0.8-4.8); Lymphocytes % 12.3 %; Mean Corpuscular HGB Conc 26.7 g/dL (30-55); Mean Corpuscular Hemoglobin 22.9 pg (27-33); Mean Corpuscular Volume 85.6 fl (82-101); Mean Platelet Volume 9.1 fL (7.4-10.4); Monocytes # 0.7 10^3/uL (0.2-0.9); Neutrophils # 3.57 10^3/uL (1.8-7.7); Neutrophils % 69.6 %; Nucleated Red Blood Cells % 0 %; Platelet Count 327 10^3/cmm (157-399); Red Blood Count 4.11 10^6/uL (3.85-5.65); Red Cell Distribution Width 20.8 % (12.1-15.1); White Blood Count 5.13 10^3/uL (3.29-11.43)
[2024-03-12 08:29] LABS: Alanine Aminotransferase 22 U/L (0-41); Albumin Level 3.2 g/dL (3.5-5.2); Alkaline Phosphatase 355 U/L (40-130); Anion Gap 14.9 (5-19); Aspartate Amino Transferase 19 U/L (0-40); Blood Urea Nitrogen 20 mg/dL (6-20); Calcium 8.5 mg/dL (8.5-10.5); Carbon Dioxide 34 mmol/L (22-29); Chloride 95 mmol/L (98-107); Globulin 3.7 g/dL (1.3-4.6); Glomerular Filtration Rate 70.6 mL/min (90-130); Glucose 174 mg/dL (65-115); Osmolality Calculated 297 mOsm/kg (285-295); Potassium 3.9 mmol/L (3.5-5.1); Sodium 140 mmol/L (136-145); Total Bilirubin 1.1 mg/dL (0.15-1.2); Total Protein 6.9 g/dL (6.6-8.7)
[2024-03-12] MEDS: dextrose 5% 250 ML 75 ML IV (08:58)
[2024-03-12] MEDS: palonosetron 0.25 mg/5 mL SDV IVP (08:58)
[2024-03-12] MEDS: dexamethasone 4 mg/mL INJ 5 mL 12 MG IVP (09:02)
[2024-03-12] MEDS: DEXTROSE 5% IV ×2 (09:50→09:52)
[2024-03-12] MEDS: LEUCOVORIN IV (09:50)
[2024-03-12] MEDS: OXALIPLATIN IV (09:52)
[2024-03-12] MEDS: SODIUM CHLORIDE IV (12:07)
[2024-03-12] MEDS: FLUOROURACIL IV (12:07)
[2024-03-12] MEDS: ELASTOMERIC PUMP PUMP IV (12:07)
[2024-03-12 12:48] VITALS: BP 160/82; PULSE 95; TEMP 36.3; O2SAT 93
[2024-03-26 07:59] LABS: Basophils % 0.6 %; Eosinophils # 0.2 10^3/uL (0.0-0.8); Eosinophils % 4.8 %; Hematocrit 33.4 % (37-53); Lymphocytes # 0.5 10^3/uL (0.8-4.8); Mean Corpuscular Hemoglobin 22.4 pg (27-33); Mean Corpuscular Volume 86.1 fl (82-101); Mean Platelet Volume 9.3 fL (7.4-10.4); Monocytes # 0.4 10^3/uL (0.2-0.9); Monocytes % 7.9 %; Neutrophils # 3.63 10^3/uL (1.8-7.7); Neutrophils % 75.5 %; Nucleated Red Blood Cells % 0 %; Platelet Count 150 10^3/cmm (157-399); Red Blood Count 3.88 10^6/uL (3.85-5.65); Red Cell Distribution Width 21.6 % (12.1-15.1); White Blood Count 4.81 10^3/uL (3.29-11.43)
[2024-03-26 08:20] LABS: Alanine Aminotransferase 16 U/L (0-41); Albumin Level 3.1 g/dL (3.5-5.2); Alkaline Phosphatase 266 U/L (40-130); Anion Gap 9.8 (5-19); Aspartate Amino Transferase 22 U/L (0-40); Blood Urea Nitrogen 15 mg/dL (6-20); Calcium 8.4 mg/dL (8.5-10.5); Carbon Dioxide 39 mmol/L (22-29); Chloride 98 mmol/L (98-107); Creatinine Clr Calc Pharmacy 131.2691; Globulin 3.4 g/dL (1.3-4.6); Glomerular Filtration Rate 78.5 mL/min (90-130); Glucose 199 mg/dL (65-115); Osmolality Calculated 302 mOsm/kg (285-295); Potassium 3.8 mmol/L (3.5-5.1); Sodium 143 mmol/L (136-145); Total Bilirubin 1.1 mg/dL (0.15-1.2); Total Protein 6.5 g/dL (6.6-8.7)
[2024-03-26] MEDS: dextrose 5% 250 ML 75 ML IV (09:34)
[2024-03-26] MEDS: palonosetron 0.25 mg/5 mL SDV IVP (09:34)
[2024-03-26] MEDS: dexamethasone 4 mg/mL INJ 5 mL 12 MG IVP (09:35)
[2024-03-26] MEDS: leucovorin 1,000 MG in dextrose 5% 250 ML 62.5 MG IV (10:09)
[2024-03-26] MEDS: DEXTROSE 5% IV (10:09)
[2024-03-26] MEDS: OXALIPLATIN IV (10:09)
[2024-03-26 12:37] VITALS: BP 160/84; PULSE 81; RESP 18; TEMP 36.8; O2SAT 92
[2024-03-26] MEDS: SODIUM CHLORIDE IV (12:44)
[2024-03-26] MEDS: FLUOROURACIL IV (12:44)
[2024-03-26] MEDS: ELASTOMERIC PUMP PUMP IV (12:44)
== END 2024-04-07 23:59 | disposition home or self-care (01) ==
PROVIDERS: Nurse Practitioner Family; Visit Provider Internal Medicine Medical Oncology
DX: Z51.11 Encounter for antineoplastic chemotherapy (principal); Z53.9 Procedure and treatment not carried out, unspecified reason; C20 Malignant neoplasm of rectum; Z79.899 Other long term (current) drug therapy; Z79.52 Long term (current) use of systemic steroids
CPT/HCPCS: 80053; 85025; 96368; 96375; 96413; 96415; 96416; 96523; 99214; J0640; J1100; J2469; J7060; J9190; J9263